=== PATIENT | female | born 1945 | race Caucasian/White ===

== ENCOUNTER → 2019-04-26 15:05 | Outpatient (CLI) | payer MEDICARE, SELFPAY ==
--- NOTE | ~2019-04-26 | MM_ITS ---
EXAMINATION: MM screening taryn RT w jose angel HISTORY: Screening mammogram TECHNIQUE: Craniocaudal and mediolateral oblique 3-D tomosynthesis images were obtained and synthetic 2-D images were generated. CAD analysis was submitted and interpreted. COMPARISON: Comparison to multiple prior studies sequentially, with oldest reviewed study dated 12/30. BREAST PARENCHYMAL COMPOSITION: There are scattered areas of fibroglandular density. FINDINGS: There is no evidence of suspicious mass, calcification, or architectural distortion to sugg est malignancy in the right breast. There has been no suspicious interval change. IMPRESSION: 1. No mammographic evidence of malignancy. 2. Recommend routine screening mammography in one year. BI-RADS Category 1: Negative Reviewed, dictated and finalized at location A. ETIC COMPUTATOR
== END ==
PROVIDERS: PCP Family Medicine; Visit Provider Family Medicine
DX: Z12.31 Encounter for screening mammogram for malignant neoplasm of breast (principal)
CPT/HCPCS: 77063; 77067

== ENCOUNTER 2019-05-19 07:11 | Emergency (ER) | payer MEDICARE, SELFPAY ==
[2019-05-19] VITALS (9 sets, daily range): BP systolic 124–192; BP diastolic 63–94; PULSE 95–114; RESP 17–20; TEMP 36.9; O2SAT 94–99
--- NOTE | 2019-05-19 07:20 | ED.UPPEXIN ---
HPI - Extremity Injury (Upper) General Chief Complaint: Extremity Injury, Upper Stated Complaint: left wrist pain Time Seen by Provider: 05/19/19 07:19 History of Present Illness HPI narrative: Bilateral wrist pain since yesterday afternoon. RIght wrist improved, left wrist still extremely painful. Associated with mild redness and swelling. She has diffuse osteoarthritis, but has never had pain this severe before. The pain improved slightly with Ibuprofen. No injury, fever, illness. Related Data Home Medications Medication Instructions Recorded Confirmed albuterol sulfate 90 mcg/actuation 1 inhalation INHALATION Q4H 01/10/19 05/19/19 aerosol inhaler amlodipine 5 mg tablet 5 mg PO DAILY 01/10/19 aspirin 81 mg tablet,delayed 81 mg PO DAILY 01/10/19 release atorvastatin 40 mg tablet 40 mg PO DAILY 01/10/19 calcium carbonate-vitamin D3 600 2 tablet PO BID tablet 01/10/19 mg (1,500 mg)-800 unit tablet cetirizine 10 mg capsule 10 mg PO PRN cap 01/10/19 duloxetine 30 mg capsule,delayed 30 mg PO DAILY 01/10/19 release duloxetine 60 mg capsule,delayed 60 mg PO DAILY 01/10/19 release hydrochlorothiazide 25 mg tablet 25 mg PO DAILY 01/10/19 insulin glargine U-300 conc 300 85 unit SUB-Q DAILY ml 01/10/19 unit/mL (3 mL) subcutaneous pen levothyroxine 150 mcg tablet 150 mcg PO DAILY 01/10/19 losartan 25 mg tablet 25 mg PO DAILY 01/10/19 mometasone-formoterol HFA 200 2 puff INHALATION BID 01/10/19 mcg-5 mcg/actuation aerosol inhaler montelukast 10 mg tablet 10 mg PO DAILY 01/10/19 nortriptyline 10 mg capsule 10 mg PO DAILY 01/10/19 omeprazole 20 mg capsule,delayed 20 mg PO DAILY 01/10/19 release Allergies Allergy/AdvReac Type Severity Reaction Status Date / Time salmon oil Allergy Severe RASH,HIVES Verified 05/19/19 08:02 shellfish derived Allergy Severe HIVES/RASH Verified 05/19/19 08:02 shrimp Allergy Severe RASH/HIVES Verified 05/19/19 08:02 celecoxib Allergy Intermediate RASH/HIVES Verified 05/19/19 08:02 fish oil Allergy Intermediate RASH/HIVES Verified 05/19/19 08:02 metformin Allergy Unknown Dyspnea / Verified 05/19/19 08:02 SOB [place] Allergy Severe RASH HIVES Uncoded 05/19/19 08:02 Contrast Media Allergy Intermediate HIVES/RASH Uncoded 05/19/19 08:02 Review of Systems Review of Systems: All systems reviewed & are unremarkable except as noted in HPI and below Constitutional: Constitutional: Reports chills and Denies fever(s) Cardiovascular: Cardiovascular: Denies chest pain Respiratory: Respiratory: Denies dyspnea Gastrointestinal: Gastrointestinal: Denies abdominal pain Genitourinary: Genitourinary: Denies hematuria Musculoskeletal: Musculoskeletal: Reports arthralgias Neurologic: Denies numbness and Denies weakness [facility] Past Medical History Medical History Bilateral knee pain Degenerative joint disease of knee Social History Social History Smoking status: Former smoker Smoking end date: 03/01/08 Alcohol intake: never Exam Const: General: healthy appearing and alert Nutritional Appearance: obese Orientation/consciousness: patient oriented x3 HENMT: Head: normal to inspection Resp: Effort & Inspection: normal respiratory effort Auscultation: clear to auscultation bilaterally Cardio: Rate: regular rate Rhythm: regular rhythm Skin: Other: mild redness around lateral aspect of right wrist Neuro: General: patient oriented x3, moves all extremities and no focal motor deficits Speech: normal speech Extrem: Other: Tenderness and mild swelling at right wrist Course Vital Signs Vital signs: Vital Signs Blood Pressure 192/91 H 05/19/19 07:18 Pulse Oximetry 96 05/19/19 07:18 Temperature 36.9 C 05/19/19 07:23 Pulse Rate 95 05/19/19 09:59 Respiratory Rate 17 05/19/19 09:59 Blood Pressure 124/72 05/19/19 09:59 P
[2019-05-19 07:59] LABS: Basophils Percent Auto 0.1 % (0.2-1.2); Hematocrit 43.1 % (37.0-47.0); Immature Granulocyte Absolute 0.06 K/mm3 (0.00-0.031); Immature Granulocyte Percent A 0.4 % (0-0.5); Lymphocytes Absolute Auto 1.08 K/mm3 (0.9-3.2); Mean Corpuscular HGB Conc 32.5 g/dl (32-36); Mean Corpuscular Volume 89.4 fl (80-100); Mean Platelet Volume 9.7 fl (7.4-10.4); Monocytes Absolute Auto 1.2 K/mm3 (0.1-0.6); Monocytes Percent Auto 8.8 % (2.6-8.5); Neutrophils Absolute Auto 11.1 K/mm3 (1.3-6.7); Neutrophils Percent Auto 82.7 % (45.5-73.1); Platelet Count Result 345 k/mm3 (150-375); Red Blood Count 4.82 M/mm3 (4.2-5.4); Red Cell Distribution Width 13.4 % (11.5-14.5); White Blood Count 13.5 K/mm3 (4.5-10.0)
[2019-05-19 08:11] LABS: Blood Urea Nitrogen 12 mg/dL (7-17); Calcium 8.8 mg/dL (8.4-10.2); Carbon Dioxide 31 mmol/L (22-30); Chloride 95 mmol/L (98-107); Estimated CRCL calculation 70 ml/min; Estimated Glomerular Filt Rate > 60; Glucose 330 mg/dL (65-105); Sodium 136 mmol/L (137-145); Uric Acid 3.9 mg/dL (2.5-7.5)
--- NOTE | 2019-05-19 08:28 | PC.NURSE ---
Reassessment of pt pain, pt report pain 11/08, ED physician notified.
[2019-05-19] MEDS: INDOMETHACIN 25 MG CAPSULE 50 MG PO (08:46)
[2019-05-21 21:01] LABS: Anti Nuclear Antibody Pattern Nuclear, Speckled
== END 2019-05-19 10:00 | disposition home or self-care (01) ==
PROVIDERS: Emergency Provider Emergency Medicine; PCP Family Medicine
DX: M12.9 Arthropathy, unspecified (principal); Z87.891 Personal history of nicotine dependence
CPT/HCPCS: 36415; 80048; 84550; 85025; 86038; 86039; 99283; A9270

== ENCOUNTER → 2019-11-04 10:25 | Outpatient (CLI) | payer MEDICARE, SELFPAY ==
--- NOTE | ~2019-11-04 | MR_ITS ---
EXAMINATION: MR hip RT wo con DATE: 11/04/2019 11:17 INDICATION: Right hip pain TECHNIQUE: Magnetic resonance imaging (MRI) of the right hip was performed without intravenous contr ast. Sequences included full-field axial PD-weighted FS FSE and T1-weighted FSE, coronal of the pelvi s with PD-weighted FS FSE, small field of view of the right hip with axial PD-weighted FS FSE, sagit carlos PD-weighted FS FSE and coronal PD weighted FS FSE. Additional radial T1-weighted FGR oriented ort hogonal to the acetabular rim were obtained for evaluation of the labrum. COMPARISON: Pelvis and bilateral hip radiographs dated 08/31/2019 FINDINGS: Evaluation mildly limited by motion artifact or blurring on several sequences. Bones/labrum/cartilage: Alignment is normal. No fracture, avascular necrosis or pathologic marrow replacing process. Mild os teoarthritis at the right hip with nonuniform joint space narrowing with partial thickness cartilage loss most prominent at the posterior and posterior superior aspect of the joint space. The anterior t o the superolateral right acetabular labrum is diminutive likely reflecting chronic degeneration. Mor e well-defined linear tear at the posterior superior labrum. There is thickening, architectural disto rtion and increased signal at the femoral side of the ligamentum teres consistent with at least parti al tear. Fluid: Symmetric physiologic amount of fluid within both hip joints. No bursitis or other abnormal fluid col lections. Soft tissues: Symmetric muscle bulk and signal with moderate fatty atrophy of the bilateral gluteus sherrell muscles and mild fatty atrophy of the remaining musculature of the pelvis and proximal thighs. The iliopsoas , gluteal and proximal hamstring tendons are normal. The uterus is not identified and has likely been surgically resected. Multiple diverticula along the sigmoid colon. Limited evaluation of visceral or wen of the pelvis is otherwise unremarkable. No pathologically enlarged pelvic/inguinal lymphadenop athy. IMPRESSION: 1. Mild right hip osteoarthritis with anterior to the superolateral labral degeneration and more disc rete tear at the posterior superior acetabular labrum. 2. At least partial tear of the femoral side of the ligamentum teres of the right hip. 3. Sigmoid diverticulosis. Reviewed, dictated and finalized at location A. IMPRESSION: 1. Mild right hip osteoarthritis with anterior to the superolateral labral dege neration and more discrete tear at the posterior superior acetabular labrum. 2. At least partial tear of the femoral side of the ligamentum teres of the rig ht hip. 3. Sigmoid diverticulosis.
== END ==
PROVIDERS: Visit Provider Nurse Practitioner Family
DX: M25.551 Pain in right hip (principal); M16.11 Unilateral primary osteoarthritis, right hip; K57.30 Diverticulosis of large intestine without perforation or abscess without bleeding
CPT/HCPCS: 73721

== ENCOUNTER 2019-11-20 02:52 | Outpatient (CLI) | payer MEDICARE, SELFPAY ==
[2019-11-20 16:34] LABS: SARS-CoV-2 RNA PCR Negative
== END 2019-11-20 02:53 | disposition home or self-care (01) ==
LOC: ANHCOVIDDT 02:52
PROVIDERS: Visit Provider Plastic Surgery
DX: Z01.818 Encounter for other preprocedural examination (principal); Z11.59 Encounter for screening for other viral diseases
CPT/HCPCS: 87635; C9803; U0003

== ENCOUNTER 2019-11-22 01:37 | Day surgery (SDC) | payer MEDICARE, SELFPAY ==
[2019-11-17 13:21] VITALS: BMI 34.1
[2019-11-22] VITALS (7 sets, daily range): BP systolic 110–167; BP diastolic 50–77; PULSE 76–85; RESP 20–24; TEMP 36.1–37; O2SAT 93–97
--- NOTE | 2019-11-22 07:14 | WPDHPUPDATE1 ---
History and Physical Update Update Date/Time: 11/22/19 07:14 History and Physical has been reviewed, including an updated exam of the patient. There are NO changes in the patient's condition. Risks, benefits, and alternatives have been discussed and questions answered. Patient agrees to proceed with procedure.
--- NOTE | 2019-11-22 07:37 | PM.OP ---
Procedure Note - Brief Procedure Note - Brief Date of procedure: 11/22/19 Pre-op diagnosis: Sebaceous Abcess Of the Right Cheek, Inflammed Post-op diagnosis: same Procedure performed: Excision of inflamed sebaceous cyst of right cheek 2.0 cm with intermediate repair 2.6 cm Anesthesia: local Surgeon: Forrest Bear MD Drains: No Packing: No Pathology: none sent Complications: No immediate complications Condition: stable Disposition: same day
[2019-11-22] MEDS: LIDO 1%/EPINEPHRINE 1:100,000 20 ML VIAL INFILTRATE (07:58)
[2019-11-22] MEDS: BACITRACIN OINTMENT 15 GM TUBE 1 APPLIC TOPICAL (08:02)
--- NOTE | 2019-11-22 08:13 | PM.PROC ---
Procedure Note - Detailed Date of procedure: 11/22/19 Pre-op diagnosis: Sebaceous Abcess Of the Right Cheek, Inflammed Inflamed cyst of the right cheek Post-op diagnosis: same Procedure performed: 2.0 cm excision of inflamed cyst of the right cheek with intermediate repair 2.6 cm. Description of procedure: The right cheek site was marked in the holding area. She was taken to the operating room and placed supine on the operating table. A time-out was held and confirmed. The right Face was prepped and draped in usual fashion. Patient was comfortably positioned. The site was marked for excision and infiltrated with 1% lidocaine with epinephrine. The curving incision was made with a 15 blade through full-thickness skin. Dense phlegmon was and identified throughout the region. There was no pus at this time. The phlegmonous tissue was incised to ensure there was no purulent pocket. The central portion of the phlegmonous tissue was excised. The wound was closed with interrupted 4-0 intradermal Vicryl suture and the skin was closed with running 6 0 nylon. The patient is discharged with instructions in wound care and follow-up. No prescriptions were given. She will be finishing her oral antibiotics. Surgeon: Forrest Bear MD
== END 2019-11-22 08:25 | disposition home or self-care (01) ==
PROVIDERS: PCP Family Medicine; Visit Provider Plastic Surgery
PROC: (CPT 11442; principal; 2019-11-22 07:30)
DX: L02.01 Cutaneous abscess of face (principal); I10 Essential (primary) hypertension; E11.9 Type 2 diabetes mellitus without complications; J44.9 Chronic obstructive pulmonary disease, unspecified; Z79.4 Long term (current) use of insulin
CPT/HCPCS: 11442; 12052; A9270

== ENCOUNTER 2019-12-04 17:23 | Emergency (ER) | payer MEDICARE, SELFPAY ==
[2019-12-04 17:32] VITALS: BP 136/56; PULSE 89; RESP 16; TEMP 36.3; O2SAT 96
--- NOTE | 2019-12-04 17:49 | ED.URI ---
HPI - URI/Sore Throat General Chief Complaint: Upper Respiratory Infection Stated Complaint: cough/wheezing Time Seen by Provider: 12/04/19 17:40 Source: patient Mode of arrival: ambulatory Limitations: no limitations History of Present Illness HPI Narrative: 74 y/o female. PMH includes: HTN, Hypothyroid, DM II. Presents to clinic today with acute complaints of cough and wheezing, over past 5 days. She reports to actually feel better today , but when she called her Boat Oar Maker, they couldn't see her', and she has to get Covid 19 testing in AM before she may be seen in office. She reports to initially have had 'some wheezing', which has since 'gone away'. She notes that 'sometimes her asthma will bother her, and adds that she has had nasal discharge and drainage in her throat . However, today she feels pretty good . No fever, chills, chest pain, palpitations, abdominal pain, N/V/D. Related Data Home Medications Medication Instructions Recorded Confirmed aspirin 81 mg tablet,delayed 81 mg PO DAILY 01/10/19 11/22/19 release montelukast 10 mg tablet 10 mg PO HS 01/10/19 11/22/19 omeprazole 20 mg capsule,delayed 20 mg PO HS 01/10/19 11/22/19 release Spiriva Respimat 2 puff INHALATION QAM 11/17/19 11/22/19 amlodipine 5 mg PO QAM 11/17/19 11/22/19 budesonide-formoterol [Symbicort] 2 puff INHALATION BID 11/17/19 11/22/19 duloxetine 60 mg PO DAILY 11/17/19 11/22/19 hydrochlorothiazide 25 mg PO QAM 11/17/19 11/22/19 levothyroxine 150 mcg PO QAM 11/17/19 11/22/19 losartan 50 mg PO QAM 11/17/19 11/22/19 metoprolol succinate 25 mg PO HS 11/17/19 11/22/19 albuterol sulfate [Ventolin HFA] INHALATION 12/04/19 budesonide-formoterol [Symbicort] INHALATION 12/04/19 calcium carbonate-vitamin D3 1 tablet PO DAILY 12/04/19 12/04/19 [Caltrate 600 plus D] fluoxetine 20 mg PO DAILY 12/04/19 12/04/19 insulin glargine U-300 conc 105 unit SUBCUT QAM 12/04/19 12/04/19 [Toujeo Max U-300 SoloStar] insulin glargine U-300 conc unit SUBCUT 12/04/19 [Toujeo Max U-300 SoloStar] insulin lispro [Humalog KwikPen unit SUBCUT 12/04/19 Insulin] insulin lispro [Humalog KwikPen unit SUBCUT 12/04/19 Insulin] Allergies Allergy/AdvReac Type Severity Reaction Status Date / Time shellfish derived Allergy Severe HIVES/RASH Verified 12/04/19 17:52 shrimp Allergy Severe RASH/HIVES Verified 12/04/19 17:52 celecoxib Allergy Intermediate RASH/HIVES Verified 12/04/19 17:52 fish oil Allergy Intermediate RASH/HIVES Verified 12/04/19 17:52 metformin Allergy Unknown Chest Pain Verified 12/04/19 17:52 Contrast Media Allergy Intermediate NAUSEA, Uncoded 12/04/19 17:52 HOT FLASHES, DYSPNEA Review of Systems Review of Systems: Narrative: CONSTITUTIONAL: Denies fever, chills, sweats. EYES: Denies visual changes, redness, discharge. ENT: Denies rhinorrhea, congestion, sore throat, otalgia. CARDIOVASCULAR: Denies chest pain, palpitations, edema. RESPIRATORY: Denies dyspnea. Positive wheezing, cough GASTROINTESTINAL: Denies abdominal pain, nausea, vomiting, diarrhea. GENITOURINARY: Denies dysuria, hematuria, abnormal discharge SKIN: Denies rash or itching. MUSCULOSKELETAL: Denies acute back pain, joint pain, or myalgia. NEUROLOGIC: Denies numbness, or focal weakness. PSYCHIATRIC: Denies anxiety or depression. All systems reviewed & are unremarkable except as noted in HPI and below PMFSH Past Medical History Medical History Bilateral hip pain Bilateral knee pain Degenerative joint disease of knee Internal nasal lesion Joint pain Lumbar spine pain Positive GEETHA (antinuclear antibody) Right groin pain Sleeping difficulties Trochanteric bursitis Social History Social History Smoking packs per day: 3 Smoking cigarettes per day: 60.0 Years smoked: 30 Smoking pack-years: 90.00 Smoking status: Former smoker Smok
== END 2019-12-04 17:58 | disposition home or self-care (01) ==
PROVIDERS: Emergency Provider Nurse Practitioner Adult Health; PCP Family Medicine
DX: J06.9 Acute upper respiratory infection, unspecified (principal); Z87.891 Personal history of nicotine dependence; M17.10 Unilateral primary osteoarthritis, unspecified knee; I10 Essential (primary) hypertension; E03.9 Hypothyroidism, unspecified; E11.9 Type 2 diabetes mellitus without complications
CPT/HCPCS: 99211; G0463

== ENCOUNTER 2019-12-05 11:45 | Outpatient (NON) | payer MEDICARE, SELFPAY ==
[2019-12-06 00:38] LABS: SARS-CoV-2 RNA PCR Negative
== END 2019-12-05 11:46 ==
PROVIDERS: PCP Family Medicine
DX: R05 Cough (principal); Z20.828 Contact with and (suspected) exposure to other viral communicable diseases
CPT/HCPCS: 87635; C9803; U0003

== ENCOUNTER 2020-02-04 17:17 | Observation (INO) | payer MEDICARE, SELFPAY ==
[2020-02-04] VITALS (8 sets, daily range): BP systolic 112–161; BP diastolic 59–76; PULSE 93–108; RESP 17–20; TEMP 36.1; O2SAT 94–97; BMI 32.1
--- NOTE | ~2020-02-04 | XR_ITS ---
EXAMINATION: XR chest 1V portable DATE: 02/04/2020 17:59 INDICATION: Hypertension. Hyperglycemia. TECHNIQUE: frontal view of the chest was obtained. COMPARISON: Chest radiograph dated 01/11/2014 FINDINGS: Unchanged mild atelectasis/scarring at the lingula along side a small left paracardial fat pad. No ne w airspace opacities, pulmonary edema, pleural effusion or pneumothorax. The cardiomediastinal silhou ette is normal. Status post left mastectomy and likely left axillary lymph node dissection with multi ple surgical clips at the left axilla. IMPRESSION: 1. No acute cardiopulmonary disease. Reviewed, dictated and finalized at location A. O BROADCASTER
[2020-02-04 17:39] LABS: Glucose Point of Care > 500 (65-105)
--- NOTE | 2020-02-04 17:48 | ED.GENADULT ---
HPI - General Adult General Chief complaint: Recheck/Abnormal Lab/Rx Stated complaint: lip infection/high blood sugar Time Seen by Provider: 02/04/20 17:33 Source: patient Mode of arrival: ambulatory Limitations: no limitations History of Present Illness HPI narrative: Patient is a 74-year-old female who presents to emergency department for evaluation of feeling fatigued and weak is currently being treated for an infection of the left noting last she developed swelling and tenderness of the left patient was started on a new blood sugar medicine in the recent past and has been noncompliant with that because of abdominal cramping and side effects patient denies vomiting diarrhea URI symptoms or other complaints patient does note history of frequent oral blisters. Patient on arrival in no distress. Patient has not been in touch with primary care about her insulin noncompliance Related Data Home Medications Medication Instructions Recorded Confirmed aspirin 81 mg tablet,delayed 81 mg PO DAILY 01/10/19 12/04/19 release omeprazole 20 mg capsule,delayed 20 mg PO HS 01/10/19 12/04/19 release amlodipine 5 mg PO QAM 11/17/19 12/04/19 budesonide-formoterol [Symbicort] 2 puff INHALATION BID 11/17/19 12/04/19 duloxetine 60 mg PO DAILY 11/17/19 12/04/19 hydrochlorothiazide 25 mg PO QAM 11/17/19 12/04/19 levothyroxine 150 mcg PO QAM 11/17/19 12/04/19 losartan 50 mg PO QAM 11/17/19 12/04/19 metoprolol succinate 25 mg PO HS 11/17/19 12/04/19 albuterol sulfate [Ventolin HFA] INHALATION 12/04/19 calcium carbonate-vitamin D3 1 tablet PO DAILY 12/04/19 12/04/19 [Caltrate 600 plus D] cetirizine [Zyrtec] 10 mg PO DAILY 12/04/19 12/04/19 cyclobenzaprine 5 mg PO DAILY 12/04/19 12/04/19 fluoxetine 20 mg PO DAILY 12/04/19 12/04/19 mecobalamin (vitamin B12) [B12 1,000 mcg PO DAILY 12/04/19 12/04/19 Active] melatonin 3 mg PO HS 12/04/19 12/04/19 trwfdkqioims-Uy-lltx-minerals 1 tablet PO DAILY 12/04/19 12/04/19 [Multiple Vitamin, Womens] rosuvastatin 10 mg PO DAILY 12/04/19 12/04/19 Allergies Allergy/AdvReac Type Severity Reaction Status Date / Time shellfish derived Allergy Severe HIVES/RASH Verified 02/04/20 17:29 shrimp Allergy Severe RASH/HIVES Verified 02/04/20 17:29 celecoxib Allergy Intermediate RASH/HIVES Verified 02/04/20 17:29 fish oil Allergy Intermediate RASH/HIVES Verified 02/04/20 17:29 metformin Allergy Unknown Chest Pain Verified 02/04/20 17:29 Contrast Media Allergy Intermediate NAUSEA, Uncoded 01/31/20 11:11 HOT FLASHES, DYSPNEA Review of Systems Review of Systems: All systems reviewed & are unremarkable except as noted in HPI and below PMFSH Past Medical History Medical History (Updated 02/04/20 @ 20:22 by Corky Sotelo PA-C) Bilateral hip pain Bilateral knee pain Degenerative joint disease of knee Internal nasal lesion Joint pain Lumbar spine pain Positive GEETHA (antinuclear antibody) Right groin pain Sleeping difficulties Trochanteric bursitis Family History Family History Father Diabetes mellitus Hypertension Cerebrovascular accident Family history of malignant melanoma Mother Diabetes mellitus Hypertension Family history of lung cancer Sibling Family history of malignant melanoma Other Family history of cardiovascular disease Family history of malignant neoplasm Malignant neoplasm of prostate Social History Social History Smoking packs per day: 3 Smoking cigarettes per day: 60.0 Years smoked: 30 Smoking pack-years: 90.00 Smoking status: Former smoker Smoking end date: 03/01/98 Alcohol intake: never Substance use: never Substance use type: does not use Gender identity (if verbalized by the patient): Female Spiritual care concerns: No Exam Narrative: Exam Narrative: GENERAL: Well-appearing, well-nourished, and in no a
[2020-02-04 17:49] LABS: Basophils Percent Auto 0.2 % (0.2-1.2); Hematocrit 43.9 % (37.0-47.0); Hemoglobin 14.4 g/dL (12.0-15.0); Immature Granulocyte Absolute 0.17 K/mm3 (0.00-0.031); Immature Granulocyte Percent A 1.4 % (0-0.5); Lymphocytes Absolute Auto 2.36 K/mm3 (0.9-3.2); Lymphocytes Percent Auto 18.9 % (18.3-44.2); Mean Corpuscular HGB Conc 32.8 g/dl (32-36); Mean Corpuscular Hemoglobin 29.5 pg (26-34); Mean Platelet Volume 9.6 fl (7.4-10.4); Monocytes Percent Auto 7.7 % (2.6-8.5); Neutrophils Percent Auto 71.8 % (45.5-73.1); Platelet Count Result 435 k/mm3 (150-375); Red Blood Count 4.88 M/mm3 (4.2-5.4); Red Cell Distribution Width 12.5 % (11.5-14.5); White Blood Count 12.5 K/mm3 (4.5-10.0)
[2020-02-04 17:50] LABS: Alveolar/Arterial O2 Gradient 30.1 mmHg; Base Excess ABG 0.4 mEq/l (+/-2.0); Carboxyhemoglobin 0.8 % THb (0-2.0); Device ROOM AIR; Fractional Inspired Oxygen 21 %; HCO3 ABG 25.5 mEq/l (22.0-26.0); Methemoglobin ABG 0.2 %THb (0-1.5); Modified Allen's Test Pass; Oxygen Content ABG 18.3 %vol (16.0-22.0); Oxygen Saturation ABG 93.6 % (95.0-100.0); Oxyhemoglobin 91.2 % THb (90.0-100.0); PCO2 ABG 42.6 mmHg (35.0-45.0); PO2 ABG 68.6 mmHg (80.0-100.0); PO2 FiO2 Ratio Arterial Blood 3.27 %; Reduced Hemoglobin 7.8 %THb (0-5.0); Site Drawn RIGHT RADIAL; Total Hemoglobin 14.3 g/dL (12.0-18.0); pH ABG 7.395 (7.350-7.450)
[2020-02-04] MEDS: SODIUM CHLORIDE 0.9% IV 500 ML 999 ML IV CONT (18:00)
[2020-02-04 18:02] LABS: Alanine Aminotransferase 20 U/L (4-35); Albumin Level 4.1 g/dL (3.5-5.1); Alkaline Phosphatase 152 U/L (38-126); Anion Gap 12 mmol/L (8-16); Aspartate Amino Transferase 24 U/L (14-36); Bilirubin,Total 0.7 mg/dL (0.2-1.3); Blood Urea Nitrogen 14 mg/dL (7-17); Calcium 8.8 mg/dL (8.4-10.2); Carbon Dioxide 29 mmol/L (22-30); Chloride 86 mmol/L (98-107); Estimated CRCL calculation 52 ml/min; Estimated Glomerular Filt Rate > 60; Magnesium 1.7 mg/dL (1.6-2.3); Phosphorus 4.9 mg/dL (2.5-4.5); Potassium 4.2 mmol/L (3.4-5.0); Sodium 127 mmol/L (137-145)
[2020-02-04 18:10] LABS: Glucose 778 mg/dL (65-105)
[2020-02-04 18:20] LABS: Beta-Hydroxybutyrate/Acetoacetate 0.96 mmol/L (0.02-0.27)
[2020-02-04] MEDS: SODIUM CHLORIDE 0.9% IV 1,000 ML 999 ML IV CONT (18:37)
[2020-02-04] MEDS: INSULIN HUMAN REGULAR (*BKC) 100 UNITS/ML 12 UNITS IV PUSH (18:48)
[2020-02-04 19:04] LABS: Add Urine Microscopic? YES; Appearance Urine Clear (Clear); Bilirubin Urine Negative (Negative); Blood Urine Negative (Negative); Color Urine Colorless (Yellow); Glucose Urine UA 3+ mg/dL (Negative); Ketones Urine Trace mg/dL (Negative); Leukocyte Esterase Ur Negative LEU/UL (Negative); Nitrate Urine Negative (Negative); Protein Urine Negative (Negative); RBC Urine 0-2 /hpf (0-2); Specific Grav Ur 1.029 (1.001-1.035); Squamous Epithelial Cell Urine Occasional /hpf (Few); Urobilinogen Urine Negative mg/dL (<2.0); WBC Urine 0-3 /hpf
[2020-02-04 19:37] LABS: Glucose Point of Care > 500 (65-105)
--- NOTE | 2020-02-04 19:40 | PC.NURSE ---
POC Glucose performed per PA Alva's verbal order with read back. BS was 503 and PA Alva made aware of continued hyperglycemia and no new orders given. RN will continue to monitor.
--- NOTE | 2020-02-04 20:37 | PM.IMHP ---
H&P: HPI History of Present Illness Date/Time: 02/04/20 20:37 Chief complaint: hyperglycemia, dizzy, herpes simplex lip Narrative: This is a pleasant 74-year-old obese diabetic female with known COPD who presented to the hospital today with a complaint of having cold sores of her upper lip as well as an elevated blood glucose. The patient reports that she had an outbreak of cold sores involving her upper lip that started this past and the very next day her upper lip became severely swollen. She was started on doxycycline by her PCP and also treated with Valtrex. The patient admits that she has not been taking her insulin as she was recently switched from being on Lantus and Humulin insulin 3 times a day to U 500 insulin which she says she cannot tolerate. The patient simply has not been taking any insulin but she believe that it was not necessary because she has not been able to eat since the cold sores involving her upper lip has prevented her to put in her dentures. Tonight in the emergency room the patient was found to have a blood glucose of 778 mg/dl. It does not appear that the patient is in acute DKA as she has a normal anion gap. Associated symptoms tonight include nausea and dizziness. She denies any recent fevers, chills, worsening cough, shortness of breath, chest pain, palpitations, abdominal pain, dysuria, hematuria, diarrhea, or rectal bleeding. She denies any other open wounds or rashes. The patient is nontoxic appearing, alert, awake and in no acute distress. She has been treated with IV fluids and 12 units of regular insulin IV. We been asked to admit the patient to the hospital for her severely elevated blood sugars. She has no other complaints at this time. Review of Systems Review of Systems: All systems reviewed & are unremarkable except as noted in HPI and below PMFSH Past Medical History Medical History Bilateral hip pain Bilateral knee pain COPD (chronic obstructive pulmonary disease) Degenerative joint disease of knee Internal nasal lesion Joint pain Lumbar spine pain Positive GEETHA (antinuclear antibody) Right groin pain Sleeping difficulties Trochanteric bursitis Family History Family History Father Diabetes mellitus Hypertension Cerebrovascular accident Family history of malignant melanoma Mother Diabetes mellitus Hypertension Family history of lung cancer Sibling Family history of malignant melanoma Other Family history of cardiovascular disease Family history of malignant neoplasm Malignant neoplasm of prostate Social History Social History Smoking packs per day: 3 Smoking cigarettes per day: 60.0 Years smoked: 30 Smoking pack-years: 90.00 Smoking status: Former smoker Tobacco type: cigarettes Smoking end date: 03/01/98 Alcohol intake: never Substance use: never Substance use type: does not use Gender identity (if verbalized by the patient): Female Spiritual care concerns: No Meds Home Medications and Allergies Home Medications Medication Instructions Recorded Confirmed Type aspirin 81 mg tablet,delayed 81 mg PO DAILY 01/10/19 02/04/20 History release omeprazole 20 mg capsule,delayed 20 mg PO HS 01/10/19 02/04/20 History release amlodipine 5 mg PO QAM 11/17/19 02/04/20 History budesonide-formoterol [Symbicort] 2 puff INHALATION BID 11/17/19 02/04/20 History duloxetine 60 mg PO DAILY 11/17/19 02/04/20 History hydrochlorothiazide 25 mg PO QAM 11/17/19 02/04/20 History levothyroxine 150 mcg PO QAM 11/17/19 02/04/20 History losartan 50 mg PO QAM 11/17/19 02/04/20 History metoprolol succinate 25 mg PO HS 11/17/19 02/04/20 History albuterol sulfate [Ventolin HFA] 90 mcg INHALATION PRN PRN 12/04/19 02/04/20 History calcium carbonate-vitamin D3 1 tablet PO DAILY
[2020-02-04] MEDS: FAMOTIDINE 20 MG/2 ML VIAL IV PUSH (21:34)
--- NOTE | 2020-02-04 21:59 | ADMGEN ---
This patient, Rula Goldstein, was admitted to IMU Room 202-01. Patient/family oriented to hospital policies and general routines including ID bracelet, bed and alarms, visiting hours, pain management, procedures, bathroom and other care routines, personal items, smoking policy, room service/diet, and visiting hours. Information on how to activate the Rapid Response Team has been discussed. Patient/Family are encouraged to report perceived risks to care and to ask questions if they do not understand what they are told or what they should do.
[2020-02-04 22:01] LABS: Glucose Point of Care 417 (65-105)
[2020-02-04 23:44] LABS: Glucose Point of Care 447 (65-105)
[2020-02-05] VITALS (11 sets, daily range): BP systolic 135–147; BP diastolic 54–80; PULSE 77–94; RESP 16–20; TEMP 35.8–36.4; O2SAT 93–97
[2020-02-05] MEDS: MONTELUKAST SODIUM 10 MG TABLET PO ×2 (00:27→20:36)
[2020-02-05] MEDS: METOPROLOL SUCCINATE EXT REL 25 MG TABCR PO ×2 (00:27→20:36)
[2020-02-05] MEDS: valACYclovir HCL 500 MG TABLET 1000 MG PO ×4 (00:27→20:36)
[2020-02-05] MEDS: MELATONIN 3 MG TABLET PO ×2 (00:27→20:36)
[2020-02-05] MEDS: PANTOPRAZOLE 40 MG TABLET PO ×2 (00:28→20:36)
[2020-02-05] MEDS: LACTATED RINGERS 1,000 ML 100 ML IV CONT (00:28)
[2020-02-05] MEDS: INSULIN ASPART (*BKC) 100 UNITS/ML 10 UNITS SUB-Q (01:53)
[2020-02-05 04:37] LABS: Basophils Percent Auto 0.3 % (0.2-1.2); Hematocrit 34.8 % (37.0-47.0); Hemoglobin 11.9 g/dL (12.0-15.0); Immature Granulocyte Percent A 0.9 % (0-0.5); Lymphocytes Absolute Auto 3.01 K/mm3 (0.9-3.2); Lymphocytes Percent Auto 27.7 % (18.3-44.2); Mean Corpuscular HGB Conc 34.2 g/dl (32-36); Mean Corpuscular Hemoglobin 29.2 pg (26-34); Mean Corpuscular Volume 85.5 fl (80-100); Mean Platelet Volume 9.3 fl (7.4-10.4); Monocytes Absolute Auto 0.9 K/mm3 (0.1-0.6); Monocytes Percent Auto 8.7 % (2.6-8.5); Neutrophils Absolute Auto 6.8 K/mm3 (1.3-6.7); Neutrophils Percent Auto 62.4 % (45.5-73.1); Platelet Count Result 359 k/mm3 (150-375); Red Blood Count 4.07 M/mm3 (4.2-5.4); Red Cell Distribution Width 12.2 % (11.5-14.5); White Blood Count 10.9 K/mm3 (4.5-10.0)
[2020-02-05 04:50] LABS: Anion Gap 5 mmol/L (8-16); Blood Urea Nitrogen 10 mg/dL (7-17); Carbon Dioxide 30 mmol/L (22-30); Chloride 98 mmol/L (98-107); Estimated CRCL calculation 78 ml/min; Estimated Glomerular Filt Rate > 60; Glucose 311 mg/dL (65-105); Potassium 3.3 mmol/L (3.4-5.0); Sodium 133 mmol/L (137-145)
[2020-02-05 06:00] LABS: Glucose Point of Care 466 (65-105)
[2020-02-05 06:00] LABS: Glucose Point of Care 284 (65-105)
[2020-02-05] MEDS: LEVOTHYROXINE SODIUM 150 MCG TABLET PO (06:26)
[2020-02-05] MEDS: INSULIN ASPART (*BKC) 100 UNITS/ML SUB-Q ×4 (06:29→22:20)
[2020-02-05] MEDS: ROSUVASTATIN 10 MG TABLET PO (09:01)
[2020-02-05] MEDS: LORATADINE 10 MG TABLET PO (09:02)
[2020-02-05] MEDS: CYCLOBENZAPRINE HCL 5 MG TABLET PO (09:02)
[2020-02-05] MEDS: LOSARTAN POTASSIUM 50 MG TABLET PO (09:02)
[2020-02-05] MEDS: hydroCHLOROthiazide 25 MG TABLET PO (09:02)
[2020-02-05] MEDS: DULoxetine HCL 60 MG CAPSULE.DR PO (09:03)
[2020-02-05] MEDS: FLUoxetine HCL 20 MG CAPSULE PO (09:03)
[2020-02-05] MEDS: DOXYCYCLINE HYCLATE 100 MG TABLET PO ×2 (09:03→17:42)
[2020-02-05] MEDS: amLODIPine BESYLATE 5 MG TABLET PO (09:03)
[2020-02-05] MEDS: ASPIRIN 81 MG ENTERIC TABLET PO (09:04)
[2020-02-05] MEDS: FAMOTIDINE 20 MG/2 ML VIAL IV PUSH ×2 (09:04→20:36)
[2020-02-05 12:44] LABS: Glucose Point of Care 312 (65-105)
[2020-02-05] MEDS: THERAPEUTIC MULTIVITAMINS/MINERALS TAB (*BKC) 1 TABLET PO (13:21)
[2020-02-05] MEDS: CYANOCOBALAMIN 1,000 MCG TABLET 1000 MCG PO (13:21)
[2020-02-05] MEDS: MUPIROCIN 2% OINT 22 GM TUBE 1 APPLIC TOPICAL ×2 (13:21→17:42)
--- NOTE | 2020-02-05 16:19 | PM.IMPN ---
Progress Note: A&P Assessment and Plan (1) Uncontrolled type 2 diabetes mellitus with hyperglycemia, with long-term current use of insulin: Code(s): E11.65 - Type 2 diabetes mellitus with hyperglycemia; Z79.4 - [facility] (current) use of insulin Status: Acute Assessment and Plan: The patient has been placed in observation status. Accu-Cheks, sliding scale insulin coverage, hypoglycemia protocol. Diabetes Education. Continue IV fluids. 02/05/20 16:19 Patient is 74-year-old female with history of diabetes had developed cold sore on her left upper lip is quite swollen patient was not able to take her oral medication as well as insulin her symptoms were getting progressively, patient was initially seen by her primary care it was given doxycycline and bowel valtrex but there was no improvement in her swelling, because of swelling patient was not able to wear her dentures and was not able to eat felt nauseated and presented emergency department for further evaluate upon arrival patient blood sugar was 778 however patient was not DKA and her anion gap was normal, patient was vigorously high started on insulin, this morning patient states feeling little better swelling has improved denies any nausea or vomiting able to tolerate p.o., denies any fever or chills patient blood sugar have trended down close to 200, will apply Bactroban to her cold sores and monitor will have a PT OT evaluate the patient. (2) Primary herpes simplex infection of lips: Code(s): B00.1 - Herpesviral vesicular dermatitis Status: Acute Assessment and Plan: Continue Valtrex. Continue doxycycline to complete 10 day course that the patient has been started on. (3) COPD (chronic obstructive pulmonary disease): Qualifiers: COPD type: unspecified COPD Qualified Code(s): J44.9 - Chronic obstructive pulmonary disease, unspecified Code(s): J44.9 - Chronic obstructive pulmonary disease, unspecified Status: Chronic Assessment and Plan: Continue bronchodilators. (4) Hypertension: Qualifiers: Hypertension type: essential hypertension Qualified Code(s): I10 - Essential (primary) hypertension Code(s): I10 - Essential (primary) hypertension Status: Chronic Assessment and Plan: Elevated. Monitor blood pressure. Continue losartan, hydrochlorothiazide, Metoprolol,and amlodipine. p.r.n. IV hydralazine is ordered with parameters. (5) Hypothyroidism: Qualifiers: Hypothyroidism type: postoperative Qualified Code(s): E89.0 - Postprocedural hypothyroidism Code(s): E03.9 - Hypothyroidism, unspecified Status: Chronic Assessment and Plan: Continue levo thyroxine p.o.. Subjective Date/time seen: 02/05/20 16:19 Patient is 74-year-old female with history of diabetes had developed cold sore on her left upper lip is quite swollen patient was not able to take her oral medication as well as insulin her symptoms were getting progressively, patient was initially seen by her primary care it was given doxycycline and bowel valtrex but there was no improvement in her swelling, because of swelling patient was not able to wear her dentures and was not able to eat felt nauseated and presented emergency department for further evaluate upon arrival patient blood sugar was 778 however patient was not DKA and her anion gap was normal, patient was vigorously high started on insulin, this morning patient states feeling little better swelling has improved denies any nausea or vomiting able to tolerate p.o., denies any fever or chills patient blood sugar have trended down close to 200, will apply Bactroban to her cold sores and monitor will have a PT OT evaluate the patient. Review of Systems Review of Systems: All systems reviewed & are unremarkable except as noted in HPI and below Exam Narrative: Exam Narrative: Moderately obese Patient is comfortable, NAD HEENT: Left upper
[2020-02-05 17:09] LABS: Glucose Point of Care 355 (65-105)
[2020-02-05 22:05] LABS: Glucose Point of Care 337 (65-105)
--- NOTE | 2020-02-06 01:16 | PC.NURSE ---
This patient, Rula Goldstein, was transferred to [[id number]] on 02/05/20 at 1930. Personal belongings sent with patient. Report given to [ ]. Appropriate documentation sent with patient.
[2020-02-06] MEDS: valACYclovir HCL 500 MG TABLET 1000 MG PO ×2 (05:29→13:02)
[2020-02-06] MEDS: LEVOTHYROXINE SODIUM 150 MCG TABLET PO (05:30)
[2020-02-06 06:13] VITALS: BP 138/64; PULSE 77; RESP 17; TEMP 36.1; O2SAT 96
[2020-02-06 06:13] LABS: Hematocrit 37.8 % (37.0-47.0); Hemoglobin 12.8 g/dL (12.0-15.0); Mean Corpuscular HGB Conc 33.9 g/dl (32-36); Mean Corpuscular Hemoglobin 29.3 pg (26-34); Mean Corpuscular Volume 86.5 fl (80-100); Mean Platelet Volume 9.5 fl (7.4-10.4); Platelet Count Result 335 k/mm3 (150-375); Red Blood Count 4.37 M/mm3 (4.2-5.4); Red Cell Distribution Width 12.2 % (11.5-14.5); White Blood Count 8.1 K/mm3 (4.5-10.0)
[2020-02-06 06:14] LABS: Anion Gap 8 mmol/L (8-16); Blood Urea Nitrogen 10 mg/dL (7-17); Calcium 8.3 mg/dL (8.4-10.2); Carbon Dioxide 30 mmol/L (22-30); Chloride 96 mmol/L (98-107); Estimated CRCL calculation 78 ml/min; Estimated Glomerular Filt Rate > 60; Glucose 304 mg/dL (65-105); Potassium 3.3 mmol/L (3.4-5.0); Sodium 134 mmol/L (137-145)
[2020-02-06 08:12] LABS: Glucose Point of Care 318 (65-105)
[2020-02-06] MEDS: hydroCHLOROthiazide 25 MG TABLET PO (08:30)
[2020-02-06] MEDS: ROSUVASTATIN 10 MG TABLET PO (08:30)
[2020-02-06] MEDS: FLUoxetine HCL 20 MG CAPSULE PO (08:30)
[2020-02-06] MEDS: THERAPEUTIC MULTIVITAMINS/MINERALS TAB (*BKC) 1 TABLET PO (08:30)
[2020-02-06] MEDS: ASPIRIN 81 MG ENTERIC TABLET PO (08:30)
[2020-02-06] MEDS: amLODIPine BESYLATE 5 MG TABLET PO (08:30)
[2020-02-06] MEDS: DULoxetine HCL 60 MG CAPSULE.DR PO (08:31)
[2020-02-06] MEDS: CYCLOBENZAPRINE HCL 5 MG TABLET PO (08:31)
[2020-02-06] MEDS: LORATADINE 10 MG TABLET PO (08:31)
[2020-02-06] MEDS: MUPIROCIN 2% OINT 22 GM TUBE 1 APPLIC TOPICAL ×2 (08:31→13:03)
[2020-02-06] MEDS: CYANOCOBALAMIN 1,000 MCG TABLET 1000 MCG PO (08:31)
[2020-02-06] MEDS: FAMOTIDINE 20 MG/2 ML VIAL IV PUSH (08:31)
[2020-02-06] MEDS: DOXYCYCLINE HYCLATE 100 MG TABLET PO (08:31)
[2020-02-06] MEDS: INSULIN ASPART (*BKC) 100 UNITS/ML SUB-Q ×2 (08:31→13:04)
[2020-02-06] MEDS: LOSARTAN POTASSIUM 50 MG TABLET PO (08:31)
[2020-02-06] MEDS: POTASSIUM CHLORIDE 20 MEQ PACKET (FOR LIQUID) 40 MEQ PO (08:40)
--- NOTE | 2020-02-06 11:14 | PM.DS ---
DS: Admitting Diagnosis Admitting Diagnosis Admitting Diagnosis: hyperglycemia, dizzy, herpes simplex lip DS: Discharge Diagnosis Discharge Diagnosis (1) Uncontrolled type 2 diabetes mellitus with hyperglycemia, with long-term current use of insulin: Code(s): E11.65 - Type 2 diabetes mellitus with hyperglycemia; Z79.4 - shelter (current) use of insulin Status: Acute Assessment and Plan: The patient has been placed in observation status. Accu-Cheks, sliding scale insulin coverage, hypoglycemia protocol. Diabetes Education. Continue IV fluids. 02/05/20 16:19 Patient is 74-year-old female with history of diabetes had developed cold sore on her left upper lip is quite swollen patient was not able to take her oral medication as well as insulin her symptoms were getting progressively, patient was initially seen by her primary care it was given doxycycline and bowel valtrex but there was no improvement in her swelling, because of swelling patient was not able to wear her dentures and was not able to eat felt nauseated and presented emergency department for further evaluate upon arrival patient blood sugar was 778 however patient was not DKA and her anion gap was normal, patient was vigorously high started on insulin, this morning patient states feeling little better swelling has improved denies any nausea or vomiting able to tolerate p.o., denies any fever or chills patient blood sugar have trended down close to 200, will apply Bactroban to her cold sores and monitor will have a PT OT evaluate the patient. (2) Primary herpes simplex infection of lips: Code(s): B00.1 - Herpesviral vesicular dermatitis Status: Acute Assessment and Plan: Continue Valtrex. Continue doxycycline to complete 10 day course that the patient has been started on. (3) COPD (chronic obstructive pulmonary disease): Qualifiers: COPD type: unspecified COPD Qualified Code(s): J44.9 - Chronic obstructive pulmonary disease, unspecified Code(s): J44.9 - Chronic obstructive pulmonary disease, unspecified Status: Chronic Assessment and Plan: Continue bronchodilators. (4) Hypertension: Qualifiers: Hypertension type: essential hypertension Qualified Code(s): I10 - Essential (primary) hypertension Code(s): I10 - Essential (primary) hypertension Status: Chronic Assessment and Plan: Elevated. Monitor blood pressure. Continue losartan, hydrochlorothiazide, Metoprolol,and amlodipine. p.r.n. IV hydralazine is ordered with parameters. (5) Hypothyroidism: Qualifiers: Hypothyroidism type: postoperative Qualified Code(s): E89.0 - Postprocedural hypothyroidism Code(s): E03.9 - Hypothyroidism, unspecified Status: Chronic Assessment and Plan: Continue levo thyroxine p.o.. DS: Summary Hospital Course Reason for hospitalization: Chief complaint: hyperglycemia, dizzy, herpes simplex lip Narrative: This is a pleasant 74-year-old obese diabetic female with known COPD who presented to the hospital today with a complaint of having cold sores of her upper lip as well as an elevated blood glucose. The patient reports that she had an outbreak of cold sores involving her upper lip that started this past and the very next day her upper lip became severely swollen. She was started on doxycycline by her PCP and also treated with Valtrex. The patient admits that she has not been taking her insulin as she was recently switched from being on Lantus and Humulin insulin 3 times a day to U 500 insulin which she says she cannot tolerate. The patient simply has not been taking any insulin but she believe that it was not necessary because she has not been able to eat since the cold sores involving her upper lip has prevented her to put in her dentures. Tonight in the emergency room the patient was found to have a blood glucose of 778 mg/dl. It does not
[2020-02-06 12:03] LABS: Glucose Point of Care 351 (65-105)
== END 2020-02-06 15:04 | disposition home or self-care (01) ==
LOC: ANHED 20:22 → ANHIMU 20:43 → ANH3MED 02-06 11:14 → ANHIMU 02-07 16:27
PROVIDERS: Emergency Medicine Emergency Medical Services; Admitting Provider Family Medicine; Emergency Provider Emergency Medicine; PCP Family Medicine; Visit Provider Family Medicine
DX: E11.65 Type 2 diabetes mellitus with hyperglycemia (principal); B00.1 Herpesviral vesicular dermatitis; J44.9 Chronic obstructive pulmonary disease, unspecified; I10 Essential (primary) hypertension; E03.9 Hypothyroidism, unspecified; R53.83 Other fatigue; R53.1 Weakness; Z79.4 Long term (current) use of insulin; Z79.82 Long term (current) use of aspirin; R11.0 Nausea; R42 Dizziness and giddiness; Z87.891 Personal history of nicotine dependence; Z91.14 Patient's other noncompliance with medication regimen
CPT/HCPCS: 36415; 36600; 71045; 80048; 80053; 81001; 82010; 82375; 82805; 82948; 83050; 83735; 84100; 85025; 85027; 94640; 96361; 96374; 96375; 96376; 97161; 97165; 99285; A9270; G0378; J1815; J7030; J7040; J7120

== ENCOUNTER 2020-02-25 23:26 | Emergency (ER) | payer MEDICARE, SELFPAY ==
--- NOTE | ~2020-02-25 | CT_ITS ---
EXAMINATION: CT abdomen pelvis wo con EXAM DATE: 02/26/2020 00:26 INDICATION: Abdominal pain. TECHNIQUE: Spiral CT of the abdomen and pelvis was performed without contrast. Axial, coronal and s agittal images were reviewed. The dose-length product (DLP) for this examination was 1011.45 mGy-cm. The exposure was tailored according to patient size (auto mA exposure control), and iterative recon struction (ASIR) was used as additional dose reduction technique. Comparison is made to prior examina tion from 08/08/2012. FINDINGS: The liver, spleen, adrenal glands and pancreas are unremarkable. Gallbladder not identifie d, patient likely has had cholecystectomy. There is no nephrolithiasis or hydronephrosis. The uter us is not identified and has likely been surgically resected. The bladder is undistended at time of imaging. There is no retroperitoneal or pelvic lymphadenopathy. There is moderate scattered arteri osclerotic disease. The appendix is normal. The stomach and small bowel are unremarkable. There is expected amount of c olonic stool. There is moderate sigmoid colonic diverticulosis. There is no adjacent inflammatory ch curt to suggest diverticulitis. There is a 3 cm duodenal diverticulum. The heart is normal in size. There are no pericardial or pleural effusions. The lung bases are unremarkable. There are no oste oblastic or osteolytic lesions identified. IMPRESSION: 1. No acute intra-abdominal findings. 2. Moderate sigmoid predominant diverticulosis. 3. Duodenal diverticulum. Reviewed, dictated and finalized at location B. ANALYST
[2020-02-25 23:29] VITALS: BP 174/58; PULSE 94; RESP 20; TEMP 36.1; O2SAT 96
[2020-02-25 23:39] VITALS: PULSE 96; O2SAT 97
[2020-02-25 23:40] VITALS: BP 145/68; PULSE 92; O2SAT 99
[2020-02-25 23:45] VITALS: PULSE 90; RESP 18; O2SAT 97
[2020-02-26] VITALS (12 sets, daily range): BP systolic 124–142; BP diastolic 60–70; PULSE 86–98; RESP 14–21; O2SAT 94–98
[2020-02-26] MEDS: ONDANSETRON INJ 4 MG/2 ML VIAL IV PUSH (00:13)
[2020-02-26] MEDS: SODIUM CHLORIDE 0.9% IV 1,000 ML 999 ML IV CONT (00:14)
[2020-02-26 00:15] LABS: Basophils Absolute Auto 0.1 K/mm3 (0.0-0.1); Basophils Percent Auto 0.3 % (0.2-1.2); Hematocrit 41.3 % (37.0-47.0); Hemoglobin 13.5 g/dL (12.0-15.0); Immature Granulocyte Absolute 0.05 K/mm3 (0.00-0.031); Immature Granulocyte Percent A 0.3 % (0-0.5); Lymphocytes Absolute Auto 1.87 K/mm3 (0.9-3.2); Lymphocytes Percent Auto 12.3 % (18.3-44.2); Mean Corpuscular HGB Conc 32.7 g/dl (32-36); Mean Corpuscular Hemoglobin 29.7 pg (26-34); Mean Corpuscular Volume 90.8 fl (80-100); Mean Platelet Volume 9.1 fl (7.4-10.4); Monocytes Absolute Auto 1.2 K/mm3 (0.1-0.6); Monocytes Percent Auto 7.9 % (2.6-8.5); Neutrophils Absolute Auto 12.1 K/mm3 (1.3-6.7); Neutrophils Percent Auto 79.2 % (45.5-73.1); Platelet Count Result 302 k/mm3 (150-375); Red Blood Count 4.55 M/mm3 (4.2-5.4); Red Cell Distribution Width 13.1 % (11.5-14.5); White Blood Count 15.2 K/mm3 (4.5-10.0)
--- NOTE | 2020-02-26 00:16 | PC.NURSE ---
Patient being taken to CT.
[2020-02-26 00:28] LABS: Alanine Aminotransferase 26 U/L (4-35); Albumin Level 4.1 g/dL (3.5-5.1); Alkaline Phosphatase 114 U/L (38-126); Anion Gap 9 mmol/L (8-16); Aspartate Amino Transferase 28 U/L (14-36); Bilirubin,Total 0.5 mg/dL (0.2-1.3); Blood Urea Nitrogen 11 mg/dL (7-17); Calcium 9.1 mg/dL (8.4-10.2); Carbon Dioxide 35 mmol/L (22-30); Chloride 97 mmol/L (98-107); Estimated CRCL calculation 68 ml/min; Estimated Glomerular Filt Rate > 60; Glucose 84 mg/dL (65-105); Lipase 68 U/L (23-300); Potassium 3.2 mmol/L (3.4-5.0); Sodium 141 mmol/L (137-145)
--- NOTE | 2020-02-26 01:02 | ED.GENADULT ---
HPI - General Adult General Chief complaint: Nausea/Vomiting/Diarrhea Stated complaint: n/v/d, low bs Time Seen by Provider: 02/25/20 23:49 History of Present Illness HPI narrative: Patient is a 74-year-old female who presents the emergency department with complaint of nausea and vomiting. Patient reports that she started having loose stool this week and then tonight started vomiting. Patient states that she was concerned because she is an insulin-dependent diabetic and was unable to eat or drink and was concerned that her blood sugars may drop down. Patient states that her abdomen feels uncomfortable but does not have a specific spot that hurts directly but does report this a little bit more in the upper part of her abdomen. Patient denies fever denies chills patient denies blood in the bowel movements or vomiting. Related Data Home Medications Medication Instructions Recorded Confirmed aspirin 81 mg tablet,delayed 81 mg PO DAILY 01/10/19 02/04/20 release omeprazole 20 mg capsule,delayed 20 mg PO HS 01/10/19 02/04/20 release amlodipine 5 mg PO QAM 11/17/19 02/04/20 budesonide-formoterol [Symbicort] 2 puff INHALATION BID 11/17/19 02/04/20 duloxetine 60 mg PO DAILY 11/17/19 02/04/20 hydrochlorothiazide 25 mg PO QAM 11/17/19 02/04/20 levothyroxine 150 mcg PO QAM 11/17/19 02/04/20 losartan 50 mg PO QAM 11/17/19 02/04/20 metoprolol succinate 25 mg PO HS 11/17/19 02/04/20 B12 Active 1,000 mcg PO DAILY 12/04/19 02/04/20 Caltrate 600 plus D 1 tablet PO DAILY 12/04/19 02/04/20 Multiple Vitamin, Womens 1 tablet PO DAILY 12/04/19 02/04/20 Zyrtec 10 mg PO DAILY 12/04/19 02/04/20 albuterol sulfate [Ventolin HFA] 90 mcg INHALATION PRN PRN 12/04/19 02/04/20 fluoxetine 20 mg PO DAILY 12/04/19 02/04/20 melatonin 3 mg PO HS 12/04/19 02/04/20 rosuvastatin 10 mg PO DAILY 10/05/20 12/06/20 ranitidine HCl mg 02/25/20 triamcinolone acetonide [Nasacort] 1 spray INTRANASAL DAILY 02/25/20 Allergies Allergy/AdvReac Type Severity Reaction Status Date / Time shellfish derived Allergy Severe HIVES/RASH Verified 02/25/20 23:50 shrimp Allergy Severe RASH/HIVES Verified 02/25/20 23:50 celecoxib Allergy Intermediate RASH/HIVES Verified 02/25/20 23:50 fish oil Allergy Intermediate RASH/HIVES Verified 02/25/20 23:50 metformin Allergy Unknown Chest Pain Verified 02/25/20 23:50 Contrast Media Allergy Intermediate NAUSEA, Uncoded 01/31/20 11:11 HOT FLASHES, DYSPNEA Review of Systems Review of Systems: Narrative: A 10 system review of systems was completed on the patient and is negative except for what is stated in the HPI. Nursing and ancillary documentation was reviewed. [facility] Past Medical History Medical History Bilateral hip pain Bilateral knee pain COPD (chronic obstructive pulmonary disease) Degenerative joint disease of knee Internal nasal lesion Joint pain Lumbar spine pain Positive GEETHA (antinuclear antibody) Right groin pain Sleeping difficulties Trochanteric bursitis Family History Family History Father Diabetes mellitus Hypertension Cerebrovascular accident Family history of malignant melanoma Mother Diabetes mellitus Hypertension Family history of lung cancer Sibling Family history of malignant melanoma Other Family history of cardiovascular disease Family history of malignant neoplasm Malignant neoplasm of prostate Social History Social History Smoking packs per day: 3 Smoking cigarettes per day: 60.0 Years smoked: 30 Smoking pack-years: 90.00 Smoking status: Former smoker Tobacco type: cigarettes Smoking end date: 03/01/98 Alcohol intake: never Substance use: never Substance use type: does not use Gender identity (if verbalized by the patient): Female Spiritual care concerns: No
--- NOTE | 2020-02-26 01:32 | PC.NURSE ---
Patient given jello and apple juice for PO challenge.
[2020-02-26 02:10] LABS: Add Urine Microscopic? YES; Appearance Urine Clear (Clear); Bacteria Urine Trace /hpf; Bilirubin Urine Negative (Negative); Blood Urine Negative (Negative); Color Urine Yellow (Yellow); Glucose Urine UA Negative (Negative); Ketones Urine Negative (Negative); Leukocyte Esterase Ur 1+ LEU/UL (Negative); Mucus Urine Rare /lpf; Nitrate Urine Negative (Negative); Protein Urine Negative (Negative); Specific Grav Ur 1.009 (1.001-1.035); Squamous Epithelial Cell Urine Many /hpf (Few); Urobilinogen Urine Negative mg/dL (<2.0)
== END 2020-02-26 02:36 | disposition home or self-care (01) ==
PROVIDERS: Emergency Provider Emergency Medicine; PCP Family Medicine
DX: R11.2 Nausea with vomiting, unspecified (principal); R10.84 Generalized abdominal pain; J44.9 Chronic obstructive pulmonary disease, unspecified; E11.9 Type 2 diabetes mellitus without complications; M17.10 Unilateral primary osteoarthritis, unspecified knee; Z87.891 Personal history of nicotine dependence; Z79.4 Long term (current) use of insulin; Z79.82 Long term (current) use of aspirin
CPT/HCPCS: 36415; 74176; 80053; 81001; 83690; 85025; 87086; 87088; 96361; 96374; 99284; J2405; J7030

== ENCOUNTER 2020-05-29 15:07 | Outpatient (CLI) | payer MEDICARE, SELFPAY ==
[2020-05-29 16:43] LABS: HDL Direct 37 mg/dL
[2020-05-29 16:53] LABS: LDL Cholesterol Direct 54 mg/dL
[2020-05-29 16:59] LABS: Free T4 Free Thyroxine 1.37 ng/mL (0.78-2.19)
[2020-05-29 17:14] LABS: Thyroid Stimulating Hormone 0.141 uIU/mL (0.465-4.680)
[2020-05-29 17:22] LABS: Creatinine Urine 60.8 mg/dL
[2020-05-29 17:29] LABS: MALB Creatinine Ratio < 9.9 mg/g (0-30); Microalbumin Urine Random < 6.0 mg/L (0-16.7)
== END 2020-05-29 15:08 | disposition home or self-care (01) ==
LOC: ANHWCLAB 15:11
PROVIDERS: PCP Family Medicine; Referring Provider Internal Medicine Endocrinology, Diabetes & Metabolism; Visit Provider Internal Medicine Endocrinology, Diabetes & Metabolism
DX: E89.0 Postprocedural hypothyroidism (principal); E11.65 Type 2 diabetes mellitus with hyperglycemia; Z79.4 Long term (current) use of insulin
CPT/HCPCS: 36415; 82043; 83718; 83721; 84439; 84443

== ENCOUNTER → 2020-08-06 15:52 | Outpatient (CLI) | payer MEDICARE, SELFPAY ==
--- NOTE | ~2020-08-06 | MM_ITS ---
EXAMINATION: MM screening taryn RT w jose angel HISTORY: Screening mammogram. Status post left mastectomy for breast cancer. TECHNIQUE: Craniocaudal and mediolateral oblique 3-D tomosynthesis images were obtained and synthetic 2-D images were generated. CAD analysis was submitted and interpreted. COMPARISON: April 26, 2019, 03/2018 right digital screening mammogram examinations BREAST PARENCHYMAL COMPOSITION: There are scattered areas of fibroglandular density. FINDINGS: Stable benign circumscribed upper outer quadrant intramammary lymph node. There is no evide nce of suspicious mass, calcification, or architectural distortion to suggest malignancy in either br east. There has been no suspicious interval change. IMPRESSION: 1. No mammographic evidence of malignancy. 2. Recommend routine screening mammography in one year. BI-RADS Category 1: Negative Reviewed, dictated and finalized at location A.
== END ==
PROVIDERS: PCP Family Medicine; Visit Provider Family Medicine
DX: Z12.31 Encounter for screening mammogram for malignant neoplasm of breast (principal)
CPT/HCPCS: 77063; 77067

== ENCOUNTER 2020-10-04 14:47 | Inpatient (IN) | payer MEDICARE, SELFPAY ==
[2020-10-04 14:48] VITALS: BP 129/49; PULSE 99; RESP 18; TEMP 36.9; O2SAT 97
--- NOTE | 2020-10-04 16:38 | ED.SKABFB ---
HPI - Skin/Abscess/Foreign Bdy General Chief complaint: Skin/Abscess/Foreign Body <Cristina Whatley PA-C - Last Filed: 10/04/20 19:55> Stated complaint: possible cellulitis above left eye <Cristina Whatley PA-C - Last Filed: 10/04/20 19:55> Time Seen by Provider: 10/04/20 16:21 <HASMUKH Delacruz Last Filed: 10/04/20 19:55> Source: patient <HASMUKH Delacruz Last Filed: 10/04/20 19:55> Mode of arrival: ambulatory <HASMUKH Delacruz Last Filed: 10/04/20 19:55> Limitations: no limitations <HASMUKH Delacruz Last Filed: 10/04/20 19:55> History of Present Illness HPI narrative: This is a 75 year old female that presents to the ER for rash noted to the left side of her face for the last 4 days. Reports redness to the left side of her forehead. Reports the swelling has started to go down into her left eyelid. Denies fever, vision changes, or eye pain, redness or discharge. <HASMUKH Delacruz Last Filed: 10/04/20 19:55> Related Data Home medications: Home Medications Medication Instructions Recorded Confirmed aspirin 81 mg tablet,delayed 81 mg PO DAILY 01/10/19 09/30/20 release omeprazole 20 mg capsule,delayed 20 mg PO HS 01/10/19 09/30/20 release budesonide-formoterol [Symbicort] 2 puff INHALATION BID 11/17/19 09/30/20 metoprolol succinate 25 mg PO HS 11/17/19 09/30/20 B12 Active 1,000 mcg PO DAILY 12/04/19 09/30/20 Caltrate 600 plus D 1 tablet PO DAILY 12/04/19 09/30/20 Multiple Vitamin, Womens 1 tablet PO DAILY 12/04/19 09/30/20 Zyrtec 10 mg PO DAILY 12/04/19 09/30/20 albuterol sulfate [Ventolin HFA] 90 mcg INHALATION PRN PRN 12/04/19 09/30/20 melatonin 3 mg PO HS 12/04/19 09/30/20 rosuvastatin 10 mg PO DAILY 12/04/19 09/30/20 triamcinolone acetonide [Nasacort] 1 spray INTRANASAL DAILY 02/25/20 09/30/20 folic acid 1 mg tablet 1 mg PO DAILY 05/07/20 09/30/20 methotrexate sodium 5 mg tablet 5 mg PO WEEKLY 09/30/20 09/30/20 insulin glargine U-300 conc unit SUBCUT 10/04/20 [Toujeo Max U-300 SoloStar] insulin glargine U-300 conc unit SUBCUT 10/04/20 [Toujeo Max U-300 SoloStar] <Cristina Whatley PA-C - Last Filed: 10/04/20 19:55> Allergies/Adverse reactions: Allergies Allergy/AdvReac Type Severity Reaction Status Date / Time shellfish derived Allergy Severe HIVES/RASH Verified 10/04/20 16:15 shrimp Allergy Severe RASH/HIVES Verified 10/04/20 16:15 celecoxib Allergy Intermediate RASH/HIVES Verified 10/04/20 16:15 fish oil Allergy Intermediate RASH/HIVES Verified 10/04/20 16:15 metformin Allergy Unknown Chest Pain Verified 10/04/20 16:15 Contrast Media Allergy Intermediate NAUSEA, Uncoded 10/04/20 16:15 HOT FLASHES, DYSPNEA <Cristina Whatley PA-C - Last Filed: 10/04/20 19:55> Review of Systems Review of Systems: CONSTITUTIONAL: Denies fever EYES: Denies visual changes, redness, or discharge. SKIN: Reports rash <Cristina Whatley PA-C - Last Filed: 10/04/20 19:55> All systems reviewed & are unremarkable except as noted in HPI and below <HASMUKH Delacruz Last Filed: 10/04/20 19:55> [facility] Past Medical History Medical History: Medical History Bilateral hip pain Bilateral knee pain COPD (chronic obstructive pulmonary disease) Degenerative joint disease of knee Internal nasal lesion Joint pain Lumbar spine pain Positive GEETHA (antinuclear antibody) Right groin pain Sleeping difficulties Trochanteric bursitis <Cristina Whatley PA-C - Last Filed: 10/04/20 19:55> Family History Family History: Family History Father Diabetes mellitus Hypertension Cerebrovascular accident Family history of malignant melanoma Mother Diabetes mellitus Hypertension Family history of lung cancer Sibling Family history of malignant melanoma Other Family history of cardiovascular dise
[2020-10-04 17:12] LABS: Basophils Percent Auto 0.2 % (0.2-1.2); Hematocrit 42.9 % (37.0-47.0); Hemoglobin 13.7 g/dL (12.0-15.0); Immature Granulocyte Absolute 0.11 K/mm3 (0.00-0.031); Immature Granulocyte Percent A 0.6 % (0-0.5); Lymphocytes Absolute Auto 1.43 K/mm3 (0.9-3.2); Lymphocytes Percent Auto 7.9 % (18.3-44.2); Mean Corpuscular HGB Conc 31.9 g/dl (32-36); Mean Corpuscular Hemoglobin 28.8 pg (26-34); Mean Corpuscular Volume 90.3 fl (80-100); Mean Platelet Volume 9.1 fl (7.4-10.4); Monocytes Absolute Auto 1.1 K/mm3 (0.1-0.6); Monocytes Percent Auto 5.9 % (2.6-8.5); Neutrophils Absolute Auto 15.4 K/mm3 (1.3-6.7); Neutrophils Percent Auto 85.4 % (45.5-73.1); Platelet Count Result 340 k/mm3 (150-375); Red Blood Count 4.75 M/mm3 (4.2-5.4); Red Cell Distribution Width 14.2 % (11.5-14.5); White Blood Count 18.1 K/mm3 (4.5-10.0)
[2020-10-04 17:28] LABS: Anion Gap 10 mmol/L (8-16); Blood Urea Nitrogen 16 mg/dL (7-17); CRP 1.9 mg/dL (<1.0); Calcium 9.2 mg/dL (8.4-10.2); Carbon Dioxide 28 mmol/L (22-30); Chloride 96 mmol/L (98-107); Estimated CRCL calculation 58 ml/min; Estimated Glomerular Filt Rate > 60; Glucose 248 mg/dL (65-110); Potassium 3.8 mmol/L (3.4-5.0); Sodium 134 mmol/L (137-145)
[2020-10-04 17:50] LABS: Erythrocyte Sedimentation Rate 18 mm/hr (0-20)
[2020-10-04 18:42] VITALS: BP 121/74; PULSE 74; RESP 18; O2SAT 100
[2020-10-04 19:49] LABS: Glucose Point of Care 203 mg/dl (65-105)
[2020-10-04 21:21] VITALS: BP 134/72; PULSE 93; RESP 20; TEMP 36.3; O2SAT 95
[2020-10-04 21:24] VITALS: BMI 33.5
--- NOTE | 2020-10-04 22:50 | ADMGEN ---
This patient, Rula Goldstein, was admitted to Medical Room 252-01. Patient/family oriented to hospital policies and general routines including ID bracelet, bed and alarms, visiting hours, pain management, procedures, bathroom and other care routines, personal items, smoking policy, room service/diet, and visiting hours. Information on how to activate the Rapid Response Team has been discussed. Patient/Family are encouraged to report perceived risks to care and to ask questions if they do not understand what they are told or what they should do.
--- NOTE | 2020-10-05 04:07 | PM.IMHP ---
H&P: HPI History of Present Illness Date/Time: 10/05/20 04:07 Chief Complaint: Cellulitis Narrative: This is a 75-year-old female with past medical history significant for RA, OA, COPD, CHRONIC LUMBAR SPINE PAIN, DEGENERATIVE JOINT DISEASE. PATIENT PRESENTED TO THE EMERGENCY ROOM DUE TO CELLULITIS OF HER FOREHEAD STATES THAT IT STARTED ROUGHLY 2 DAYS AGO AND THAT SHE HAS BEEN HAVING THIS PROBLEM ON NOW FOR QUITE SOME TIME HAS BEEN APPLYING NEOSPORIN ON IT BUT HAS NOT GONE AWAY AND HAS GOTTEN WORSE. SHE DENIES ANY CHILLS OR RIGORS FEVERS, NAUSEA VOMITING DIARRHEA ABDOMINAL PAIN. PRELIMINARY WORKUP WAS SIGNIFICANT FOR A WBC OF 18,000 WITH NEUTROPHIL OF 85% ELEVATED BLOOD SUGARS IN THE 250'S. DECISION HAS BEEN MADE TO PLACE THE PATIENT IN OBSERVATION FOR FURTHER ASSESSMENT AND TREATMENT AND IV ANTIBIOTIC THERAPY. Review of Systems Review of Systems: LEFT FOREHEAD CELLULITIS Constitutional: Constitutional: Denies chills, Denies fever(s) and Denies malaise Eyes: Eyes: Denies change in vision ENT: Denies dysphagia, Denies nasal congestion, Denies nasal discharge, Denies nasal obstruction and Denies odynophagia Cardiovascular: Cardiovascular: Denies chest pain, Denies irregular heart rhythm, Denies radiating jaw, neck or arm pain, Denies palpitations, Denies dyspnea and Denies orthopnea Respiratory: Respiratory: Denies cough Gastrointestinal: Gastrointestinal: Denies abdominal pain, Denies diarrhea, Denies nausea and Denies vomiting Musculoskeletal: Musculoskeletal: Reports arthralgias Comments: CHRONIC Integumentary/Breasts: Skin/Breast: Reports furuncle Neurologic: Denies focal weakness and Denies Sensory deficit (Neuro) Psychiatric: Psychiatric: Reports no additional psychiatric complaints Endocrine: Endocrine: Reports no additional endocrine complaints Hematologic/Lymphatic: Hematologic/Lymphatic: Reports no additional hematologic/lymphatic complaints Allergic/Immunologic: Allergic/Immunologic: Reports no additional allergic/immunologic complaints [facility] Past Medical History Medical History Bilateral hip pain Bilateral knee pain COPD (chronic obstructive pulmonary disease) Degenerative joint disease of knee Internal nasal lesion Joint pain Lumbar spine pain Positive GEETHA (antinuclear antibody) Right groin pain Sleeping difficulties Trochanteric bursitis Family History Family History Father Diabetes mellitus Hypertension Cerebrovascular accident Family history of malignant melanoma Mother Diabetes mellitus Hypertension Family history of lung cancer Sibling Family history of malignant melanoma Other Family history of cardiovascular disease Family history of malignant neoplasm Malignant neoplasm of prostate Social History Social History Smoking packs per day: 3 Smoking cigarettes per day: 60.0 Years smoked: 39 Smoking pack-years: 117.00 Smoking status: Former smoker Tobacco type: cigarettes Second hand tobacco smoke exposure: Yes Smoking end date: 03/01/98 Alcohol intake: never Substance use: never Substance use type: does not use Gender identity (if verbalized by the patient): Female Spiritual care concerns: No Meds Home Medications and Allergies Home Medications Medication Instructions Recorded Confirmed Type aspirin 81 mg tablet,delayed 81 mg PO HS 01/10/19 10/04/20 History release omeprazole 20 mg capsule,delayed 20 mg PO HS 01/10/19 10/04/20 History release budesonide-formoterol [Symbicort] 2 puff INHALATION BID 11/17/19 10/04/20 History metoprolol succinate 25 mg PO HS 11/17/19 10/04/20 History albuterol sulfate [Ventolin HFA] 90 mcg INHALATION PRN PRN 12/04/19 10/04/20 History melatonin 3 mg PO HS PRN 12/04/19 10/04/20 History rosuvastatin 10 mg PO HS 12/04/19 10/04/20 Hist
[2020-10-05 04:39] LABS: Glucose Point of Care 237 mg/dl (65-105)
[2020-10-05] MEDS: LEVOTHYROXINE SODIUM 125 MCG TABLET PO (05:43)
[2020-10-05 05:49] VITALS: BP 155/80; PULSE 110; RESP 18; TEMP 37.2; O2SAT 98
[2020-10-05 09:03] LABS: Glucose Point of Care 176 mg/dl (65-105)
[2020-10-05 09:39] LABS: Hematocrit 40.7 % (37.0-47.0); Hemoglobin 13.5 g/dL (12.0-15.0); Mean Corpuscular HGB Conc 33.2 g/dl (32-36); Mean Corpuscular Hemoglobin 28.8 pg (26-34); Mean Platelet Volume 9.5 fl (7.4-10.4); Platelet Count Result 376 k/mm3 (150-375); Red Blood Count 4.68 M/mm3 (4.2-5.4); Red Cell Distribution Width 14.4 % (11.5-14.5)
[2020-10-05 09:46] LABS: Anion Gap 10 mmol/L (8-16); Blood Urea Nitrogen 11 mg/dL (7-17); Calcium 8.9 mg/dL (8.4-10.2); Carbon Dioxide 29 mmol/L (22-30); Chloride 94 mmol/L (98-107); Estimated CRCL calculation 67 ml/min; Estimated Glomerular Filt Rate > 60; Glucose 176 mg/dL (65-110); Potassium 3.5 mmol/L (3.4-5.0); Sodium 133 mmol/L (137-145)
[2020-10-05] MEDS: predniSONE 5 MG TABLET 15 MG PO (09:51)
[2020-10-05] MEDS: DULoxetine HCL 30 MG CAPSULE.DR PO (09:51)
[2020-10-05] MEDS: amLODIPine BESYLATE 5 MG TABLET PO (09:51)
[2020-10-05] MEDS: LOSARTAN POTASSIUM 50 MG TABLET PO (09:52)
[2020-10-05] MEDS: FOLIC ACID 1 MG TABLET PO (09:52)
[2020-10-05] MEDS: hydroCHLOROthiazide 25 MG TABLET BY MOUTH (09:52)
[2020-10-05] MEDS: MUPIROCIN 2% OINT 22 GM TUBE 1 APPLIC EACH NARE ×2 (09:52→20:33)
[2020-10-05] MEDS: INSULIN ASPART (*BKC) 100 UNITS/ML 30 UNITS SUB-Q ×2 (12:30→18:41)
[2020-10-05] MEDS: INSULIN ASPART (*BKC) 100 UNITS/ML SUB-Q ×2 (12:39→18:42)
--- NOTE | 2020-10-05 12:49 | PM.IMPN ---
Progress Note: A&P Assessment and Plan (1) Furuncle of forehead: Code(s): L02.02 - Furuncle of face Status: Acute Assessment and Plan: Presented with raised tender region of left sided forehead with associated erythema, edema, and purulent drainage. Reports started as a pimple and has had many episodes similar to this. continue with IV vancomycin and Primaxin; topical mupirocin unable to obtain wound culture as there is no drainage and the area is crusted over supportive care. Ice as needed and analgesics as needed for pain remains afebrile (2) Cellulitis: Qualifiers: Site of cellulitis: face Qualified Code(s): L03.211 - Cellulitis of face Code(s): L03.90 - Cellulitis, unspecified Status: Acute Assessment and Plan: see above (3) Uncontrolled type 2 diabetes mellitus with hyperglycemia, with long-term current use of insulin: Code(s): E11.65 - Type 2 diabetes mellitus with hyperglycemia; Z79.4 - [facility] (current) use of insulin Status: Acute Assessment and Plan: A1c is 9.8. she appears to have significant insulin resistance requiring very high doses of insulin Accu-Cheks, sliding scale insulin, hypoglycemic protocol home regimen consists of 80 units of Toujeo and 44-60 units of Humalog t.i.d. sliding scale she is established with grip boss Dr. Nelson. Was just seen on 09/30/20 with reduction in Toujeo Toujeo nonformulary, will switch to Lantus with dose reduction. Continue novolog 30 units TID w meals and SSI. (4) COPD (chronic obstructive pulmonary disease): Qualifiers: COPD type: unspecified COPD Qualified Code(s): J44.9 - Chronic obstructive pulmonary disease, unspecified Code(s): J44.9 - Chronic obstructive pulmonary disease, unspecified Status: Chronic Assessment and Plan: no acute issues. Stable on room air continue Symbicort albuterol as needed (5) Rheumatoid arthritis: Code(s): M06.9 - Rheumatoid arthritis, unspecified Status: Acute Assessment and Plan: follows with rheumatology she is finishing up a lengthy steroid taper. Scheduled to be completed in 1-2 days, therefore will go ahead and discontinue her prednisone. leukocytosis secondary to ongoing steroids noted. holding methotrexate given acute infection supportive care Subjective Date/time seen: 10/05/20 12:49 Interval history: Date of service: 10/05/2020 Rula Goldstein is a 75-year-old female with history of rheumatoid arthritis on immunosuppressive therapy, poorly controlled type 2 diabetes mellitus with insulin resistance, and COPD is seen in follow-up for facial cellulitis. She is feeling well today She does complain of facial pain along her forehead. She said it started as a pimple that then became red and irritated. she tells me this has happened over 14 times and she has been told she has staph infection but cannot specify whether she has any history of MRSA. She feels that the redness is already starting to improve. She reported spontaneous purulent discharge for several days but no pus today. Reports that her eye is swollen but denies any visual changes. She denies nausea, vomiting, fever, or chills. She did have some sweats last night that have resolved. She has been eating well. No shortness of breath, cough, or chest pain. She has been able to get up and walk around. denies dizziness or lightheadedness. Overall, she is feeling well and in good spirits. Review of Systems Review of Systems: All systems reviewed & are unremarkable except as noted in HPI and below Exam Narrative: Ms. Goldstein is a well-nourished, well-appearing 75-year-old female who is lying supine in bed with an ice pack over her face. She appears comfortable and is in NARD. Neuro: awake, alert and oriented x4, speech clear, no focal neuro deficits noted HEENMT: normocephalic, atraumat
[2020-10-05 13:39] LABS: Glucose Point of Care 390 mg/dl (65-105)
[2020-10-05 16:45] VITALS: BP 174/78; PULSE 110; RESP 24; TEMP 36.9; O2SAT 94
[2020-10-05 18:26] LABS: Glucose Point of Care 341 mg/dl (65-105)
--- NOTE | 2020-10-05 19:11 | PHAR ---
IDENTIFIED Spiriva Respimat Active-Ingredient: Tiotropium [place] - 1.25 MCG/Actuation Available-Container Size: Inhaler of 1 Contact: [employer] Product ID: [id number] - 12/13 Form: Inhalation [place]
--- NOTE | 2020-10-05 19:15 | PHAR ---
IDENTIFIED Xiidra 5% LIFITEGRAST Active-Ingredient: Lifitegrast - 50 MG/ML Iipljhhit-Dfcnfxsca-Fxrjm: Ampule of 60; Ampule of 5 Contact: [employer] Product ID: [id number] - 09/13 Form: Ophthalmic Solution Color: Clear, Colorless to Slightly Brownish-Yellow
[2020-10-05] MEDS: PANTOPRAZOLE 40 MG TABLET PO (20:20)
[2020-10-05] MEDS: MONTELUKAST SODIUM 10 MG TABLET PO (20:20)
[2020-10-05] MEDS: DULoxetine HCL 60 MG CAPSULE.DR PO (20:20)
[2020-10-05] MEDS: ASPIRIN 81 MG ENTERIC TABLET PO (20:20)
[2020-10-05 20:22] VITALS: PULSE 103
[2020-10-05] MEDS: METOPROLOL SUCCINATE EXT REL 25 MG TABCR PO (20:22)
[2020-10-05] MEDS: ROSUVASTATIN 10 MG TABLET PO (20:22)
[2020-10-05] MEDS: INSULIN GLARGINE (*BKC) 100 UNITS/ML 60 UNITS SUB-Q (20:32)
[2020-10-05 22:00] VITALS: BP 118/87; PULSE 98; RESP 18; TEMP 37; O2SAT 97
[2020-10-05 22:26] VITALS: PULSE 101; RESP 16
[2020-10-05 22:33] LABS: Glucose Point of Care 283 mg/dl (65-105)
[2020-10-05 22:33] LABS: Glucose Point of Care 405 mg/dl (65-105)
[2020-10-05] MEDS: INSULIN ASPART (*BKC) 100 UNITS/ML 8 UNITS SUB-Q (23:17)
[2020-10-06 06:00] VITALS: BP 145/65; PULSE 80; RESP 18; TEMP 36.1; O2SAT 97
[2020-10-06 06:11] LABS: Hematocrit 41.2 % (37.0-47.0); Hemoglobin 13.7 g/dL (12.0-15.0); Mean Corpuscular HGB Conc 33.3 g/dl (32-36); Mean Corpuscular Hemoglobin 28.9 pg (26-34); Mean Corpuscular Volume 86.9 fl (80-100); Mean Platelet Volume 9.1 fl (7.4-10.4); Platelet Count Result 372 k/mm3 (150-375); Red Blood Count 4.74 M/mm3 (4.2-5.4); White Blood Count 19.9 K/mm3 (4.5-10.0)
[2020-10-06 06:29] LABS: Anion Gap 11 mmol/L (8-16); Blood Urea Nitrogen 17 mg/dL (7-17); CRP 3.4 mg/dL (<1.0); Carbon Dioxide 27 mmol/L (22-30); Chloride 97 mmol/L (98-107); Estimated CRCL calculation 67 ml/min; Estimated Glomerular Filt Rate > 60; Glucose 149 mg/dL (65-110); Potassium 3.6 mmol/L (3.4-5.0); Sodium 135 mmol/L (137-145)
[2020-10-06] MEDS: LEVOTHYROXINE SODIUM 125 MCG TABLET PO (06:48)
[2020-10-06] MEDS: ACETAMINOPHEN 500 MG TABLET 1000 MG PO (06:53)
[2020-10-06 07:49] LABS: Glucose Point of Care 221 mg/dl (65-105)
[2020-10-06] MEDS: INSULIN ASPART (*BKC) 100 UNITS/ML SUB-Q (08:22)
[2020-10-06] MEDS: INSULIN ASPART (*BKC) 100 UNITS/ML 30 UNITS SUB-Q ×3 (08:22→17:10)
[2020-10-06] MEDS: FOLIC ACID 1 MG TABLET PO (08:26)
[2020-10-06] MEDS: DULoxetine HCL 30 MG CAPSULE.DR PO (08:26)
[2020-10-06] MEDS: hydroCHLOROthiazide 25 MG TABLET BY MOUTH (08:26)
[2020-10-06] MEDS: amLODIPine BESYLATE 5 MG TABLET PO (08:27)
[2020-10-06] MEDS: LOSARTAN POTASSIUM 50 MG TABLET PO (08:27)
[2020-10-06] MEDS: MUPIROCIN 2% OINT 22 GM TUBE 1 APPLIC EACH NARE ×2 (08:28→20:39)
[2020-10-06 12:28] LABS: Glucose Point of Care 156 mg/dl (65-105)
--- NOTE | 2020-10-06 12:55 | PM.IMPN ---
Progress Note: A&P Assessment and Plan (1) Furuncle of forehead: Code(s): L02.02 - Furuncle of face Status: Acute Assessment and Plan: Presented with raised tender region of left sided forehead with associated erythema, edema, and purulent drainage. Reports started as a pimple and has had many episodes similar to this. continue with IV vancomycin and Primaxin unable to obtain wound culture as there is no drainage and the area is crusted over supportive care. Ice as needed and analgesics as needed for pain remains afebrile. Increased leukocytosis but has just completed steroid taper and this may contribute (2) Cellulitis: Qualifiers: Site of cellulitis: face Qualified Code(s): L03.211 - Cellulitis of face Code(s): L03.90 - Cellulitis, unspecified Status: Acute Assessment and Plan: see above (3) Uncontrolled type 2 diabetes mellitus with hyperglycemia, with long-term current use of insulin: Code(s): E11.65 - Type 2 diabetes mellitus with hyperglycemia; Z79.4 - oil heaterman (current) use of insulin Status: Acute Assessment and Plan: A1c is 9.8. she appears to have significant insulin resistance requiring very high doses of insulin Accu-Cheks, sliding scale insulin, hypoglycemic protocol home regimen consists of 80 units of Toujeo and 44-60 units of Humalog t.i.d. sliding scale she is established with nutrient management specialist Dr. Nelson. Was just seen on 09/30/20 with reduction in Toujeo Toujeo nonformulary. Continue Lantus with dose reduction. Continue novolog 30 units TID w meals and SSI. (4) COPD (chronic obstructive pulmonary disease): Qualifiers: COPD type: unspecified COPD Qualified Code(s): J44.9 - Chronic obstructive pulmonary disease, unspecified Code(s): J44.9 - Chronic obstructive pulmonary disease, unspecified Status: Chronic Assessment and Plan: no acute issues. Stable on room air continue Symbicort albuterol as needed (5) Rheumatoid arthritis: Code(s): M06.9 - Rheumatoid arthritis, unspecified Status: Acute Assessment and Plan: follows with rheumatology; no issues at this time She was on a lengthy steroid taper scheduled to be completed today. Discontinued 10/05 given infection. holding methotrexate given acute infection supportive care Subjective Date/time seen: 10/06/20 12:55 Interval history: Date of service: 10/06/2020 Rula Goldstein is a 75-year-old female with history of rheumatoid arthritis on immunosuppressive therapy, poorly controlled type 2 diabetes mellitus with insulin resistance, and COPD is seen in follow-up for facial cellulitis. she is doing well today. Feels that her swelling and tenderness is improving. No drainage. Also feels that her eye swelling has improved and she has no visual changes. She denies nausea, vomiting, fevers, or chills. She has been eating well. She does feel constipated and her last bowel movement was several days ago. She has been up and walking around the room without difficulty. Denies dizziness or lightheadedness. No shortness of breath, cough, or chest pain. Review of Systems Review of Systems: All systems reviewed & are unremarkable except as noted in HPI and below Exam Narrative: Ms. Goldstein is a well-nourished, well-appearing 75-year-old female who is sitting up at the bedside. She appears comfortable and is in NARD. Neuro: awake, alert and oriented x4, speech clear, no focal neuro deficits noted HEENMT: normocephalic, atraumatic, EOMI, sclerae anicteric, moist oral mucosa, tongue midline, nares patent Neck: supple, no lymphadenopathy Respiratory: clear to auscultation bilaterally, nonlabored breathing Cardio: regular rate, regular rhythm with S1-S2 Abdomen: nondistended, normoactive bowel sounds, soft, nontender to palpation Extremities: no edema, erythema, or tenderness to palpation, DP
[2020-10-06 14:00] VITALS: BP 131/54; PULSE 83; RESP 16; TEMP 36.1; O2SAT 95
[2020-10-06 14:54] LABS: Glucose Point of Care 220 mg/dl (65-105)
[2020-10-06 16:50] LABS: Glucose Point of Care 134 mg/dl (65-105)
[2020-10-06 20:00] VITALS: PULSE 96; RESP 18; O2SAT 94
[2020-10-06 20:38] VITALS: PULSE 75
[2020-10-06] MEDS: PANTOPRAZOLE 40 MG TABLET PO (20:38)
[2020-10-06] MEDS: METOPROLOL SUCCINATE EXT REL 25 MG TABCR PO (20:38)
[2020-10-06] MEDS: MONTELUKAST SODIUM 10 MG TABLET PO (20:39)
[2020-10-06] MEDS: ROSUVASTATIN 10 MG TABLET PO (20:39)
[2020-10-06] MEDS: ASPIRIN 81 MG ENTERIC TABLET PO (20:39)
[2020-10-06] MEDS: DULoxetine HCL 60 MG CAPSULE.DR PO (20:39)
[2020-10-06] MEDS: INSULIN GLARGINE (*BKC) 100 UNITS/ML 60 UNITS SUB-Q (20:43)
[2020-10-06 21:02] LABS: Glucose Point of Care 191 mg/dl (65-105)
[2020-10-06 21:14] VITALS: PULSE 105; RESP 16
[2020-10-06 21:48] VITALS: BP 111/60; PULSE 96; RESP 18; TEMP 36.8; O2SAT 94
[2020-10-06 23:21] LABS: Vancomycin Trough 7.7 ug/mL (10.0-20.0)
[2020-10-07 05:41] VITALS: BP 140/62; PULSE 91; RESP 18; TEMP 36.4; O2SAT 98
[2020-10-07 06:00] LABS: Basophils Percent Auto 0.2 % (0.2-1.2); Hematocrit 41.4 % (37.0-47.0); Hemoglobin 13.7 g/dL (12.0-15.0); Immature Granulocyte Absolute 0.08 K/mm3 (0.00-0.031); Immature Granulocyte Percent A 0.6 % (0-0.5); Lymphocytes Absolute Auto 2.99 K/mm3 (0.9-3.2); Lymphocytes Percent Auto 20.6 % (18.3-44.2); Mean Corpuscular HGB Conc 33.1 g/dl (32-36); Mean Corpuscular Volume 87.7 fl (80-100); Mean Platelet Volume 9.2 fl (7.4-10.4); Monocytes Absolute Auto 1.4 K/mm3 (0.1-0.6); Monocytes Percent Auto 9.3 % (2.6-8.5); Neutrophils Absolute Auto 10.1 K/mm3 (1.3-6.7); Neutrophils Percent Auto 69.3 % (45.5-73.1); Platelet Count Result 360 k/mm3 (150-375); Red Blood Count 4.72 M/mm3 (4.2-5.4); Red Cell Distribution Width 14.1 % (11.5-14.5); White Blood Count 14.5 K/mm3 (4.5-10.0)
[2020-10-07] MEDS: LEVOTHYROXINE SODIUM 125 MCG TABLET PO (06:12)
[2020-10-07 06:17] LABS: Anion Gap 12 mmol/L (8-16); Blood Urea Nitrogen 13 mg/dL (7-17); CRP 3.2 mg/dL (<1.0); Calcium 9.3 mg/dL (8.4-10.2); Carbon Dioxide 27 mmol/L (22-30); Chloride 98 mmol/L (98-107); Estimated CRCL calculation 67 ml/min; Estimated Glomerular Filt Rate > 60; Glucose 214 mg/dL (65-110); Potassium 3.9 mmol/L (3.4-5.0); Sodium 137 mmol/L (137-145)
--- NOTE | 2020-10-07 08:28 | ECG_ITS ---
Measurements Intervals [place] Rate: 86 P: 53 MO: 248 QRS: 3 QRSD: 90 T: 79 QT: 380 QTc: 456 Interpretive Statements SINUS RHYTHM WITH FIRST DEGREE AV BLOCK TRANSIENT ECTOPIC ATRIAL RHYTHM BORDERLINE ST-T WAVE ABNORMALITY- HIGH LATERAL LEADS ABNORMAL ECG Electronically Signed On 10-07-2020 9:09:00 CDT by Osei Avila D.O.
[2020-10-07 08:53] LABS: Glucose Point of Care 208 mg/dl (65-105)
[2020-10-07] MEDS: hydroCHLOROthiazide 25 MG TABLET BY MOUTH (08:58)
[2020-10-07] MEDS: FOLIC ACID 1 MG TABLET PO (08:58)
[2020-10-07] MEDS: DULoxetine HCL 30 MG CAPSULE.DR PO (08:58)
[2020-10-07] MEDS: MUPIROCIN 2% OINT 22 GM TUBE 1 APPLIC EACH NARE (08:59)
[2020-10-07] MEDS: amLODIPine BESYLATE 5 MG TABLET PO (08:59)
[2020-10-07] MEDS: LOSARTAN POTASSIUM 50 MG TABLET PO (08:59)
[2020-10-07] MEDS: INSULIN ASPART (*BKC) 100 UNITS/ML SUB-Q ×2 (09:10→11:41)
[2020-10-07] MEDS: INSULIN ASPART (*BKC) 100 UNITS/ML 30 UNITS SUB-Q ×3 (09:10→17:04)
[2020-10-07 12:10] LABS: Glucose Point of Care 241 mg/dl (65-105)
--- NOTE | 2020-10-07 13:52 | PM.DS ---
DS: Admitting Diagnosis Admitting Diagnosis Cellulitis DS: Discharge Diagnosis Discharge Diagnosis (1) Furuncle of forehead: Code(s): L02.02 - Furuncle of face Status: Acute Assessment and Plan: Presented with raised tender region of left sided forehead with associated erythema, edema, and purulent drainage. Reports started as a pimple and has had many episodes similar to this. 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 She was started on IV vancomycin improve max in. Unable to obtain wound culture as the area was crusted over without drainage. She remained afebrile. She will continue with p.o. doxycycline as an outpatient and has follow-up scheduled with her PCP in 2 days for further monitoring. Started on mupirocin of the nares for history of MRSA colonization which will be continued to complete 5 days. (2) Cellulitis: Qualifiers: Site of cellulitis: face Qualified Code(s): L03.211 - Cellulitis of face Code(s): L03.90 - Cellulitis, unspecified Status: Acute Assessment and Plan: see above (3) Uncontrolled type 2 diabetes mellitus with hyperglycemia, with long-term current use of insulin: Code(s): E11.65 - Type 2 diabetes mellitus with hyperglycemia; Z79.4 - [facility] (current) use of insulin Status: Acute Assessment and Plan: A1c is 9.8. she appears to have significant insulin resistance requiring very high doses of insulin. She is established with endocrinology and should continue her home regimen of 80 units of Toujeo and 44-60 units of Humalog t.i.d. sliding scale (4) COPD (chronic obstructive pulmonary disease): Qualifiers: COPD type: unspecified COPD Qualified Code(s): J44.9 - Chronic obstructive pulmonary disease, unspecified Code(s): J44.9 - Chronic obstructive pulmonary disease, unspecified Status: Chronic Assessment and Plan: No acute issues. Continue Symbicort. Albuterol as needed (5) Rheumatoid arthritis: Code(s): M06.9 - Rheumatoid arthritis, unspecified Status: Acute Assessment and Plan: Follows with rheumatology; no issues at this time. She was At the tail end of a lengthy steroid taper which was discontinued 10/05 given infection. hold methotrexate given acute infection. Resume once okay with PCP or business dean. DS: Summary Hospital Course Hospital Course: Date of admission: 10/04/2020 Date of discharge: 10/07/2020 Rula Goldstein is a 75-year-old female with history of rheumatoid arthritis on immunosuppressive therapy, poorly controlled type 2 diabetes mellitus with insulin resistance, and COPD who presented to the emergency department on 10/04/2020 with complaints of swelling and redness to the left side of her face. Upon presentation to the emergency department, her vital signs were stable, she was afebrile, WBC 18.1, additional CBC unremarkable, electrolytes stable, glucose 248, CRP 1.9. She was admitted to the hospitalist service for further evaluation management. She was treated with IV antibiotics and had symptomatic improvement with reduction of swelling and edema. Of note, she did have mild bilateral facial swelling that was likely due to steroid use, and this will continue to be monitored by her PCP for improvement. She does have appointment with her PCP scheduled for 10/09/2020. Given her overall improvement, she was determined to no longer require inpatient care and was felt to be stable for discharge. We discussed worrisome signs and symptoms for which to return and she was educated on her medications. She was discharged in hemodynamically stable condition on 10/07/2020. Spoke with her PCP office to discuss details of hospitalization. Status at Discharge Functional status at discharge: independent ambulation Overall status at discharge: patient is progressing back to baseline Time Spent with Patient Time attestation: Total time spen
[2020-10-07 14:00] VITALS: BP 117/77; PULSE 95; RESP 18; TEMP 36.3; O2SAT 96
[2020-10-07 16:58] LABS: Glucose Point of Care 152 mg/dl (65-105)
== END 2020-10-07 18:15 | disposition home or self-care (01) | DRG 603 ==
LOC: ANHED 19:48 → ANH2MED 20:00
PROVIDERS: Physician Assistant; Admitting Provider Student in an Organized Health Care Education/Training Program; Emergency Provider Emergency Medicine; PCP Family Medicine; Visit Provider Internal Medicine
DX: L02.02 Furuncle of face (principal); L03.211 Cellulitis of face; E11.65 Type 2 diabetes mellitus with hyperglycemia; J44.9 Chronic obstructive pulmonary disease, unspecified; M06.9 Rheumatoid arthritis, unspecified; M25.551 Pain in right hip; M25.552 Pain in left hip; M17.0 Bilateral primary osteoarthritis of knee; Z79.4 Long term (current) use of insulin; Z79.82 Long term (current) use of aspirin; Z79.899 Other long term (current) drug therapy; Z87.891 Personal history of nicotine dependence
CPT/HCPCS: 36415; 80048; 80202; 82948; 85025; 85027; 85652; 86140; 93005; 94640; 96365; 96367; 99285; A9270; G0378; J0743; J1815; J3370; J7512

== ENCOUNTER 2020-11-09 11:13 | Emergency (ER) | payer MEDICARE, SELFPAY ==
[2020-11-09] VITALS (7 sets, daily range): BP systolic 124–157; BP diastolic 55–96; PULSE 90–113; RESP 20–26; TEMP 37; O2SAT 95–99
--- NOTE | ~2020-11-09 | XR_ITS ---
EXAMINATION: XR chest 2V EXAM DATE: 11/09/2020 11:29 INDICATION: COPD, shortness of breath for 1 week. TECHNIQUE: Frontal and lateral projections of the chest obtained and reviewed. Comparison is made to prior examination from 02/04/2020. FINDINGS: Left mastectomy, axillary surgical clips. The lungs are clear. There are no pleural effus ions. The cardiomediastinal silhouette is within normal limits. There is no pneumothorax suspected. The bones and soft tissues are unremarkable. IMPRESSION: No acute cardiopulmonary findings. Reviewed, dictated and finalized at location A.
--- NOTE | 2020-11-09 11:16 | ECG_ITS ---
Measurements Intervals [place] Rate: 96 P: 67 [place]: 246 QRS: 13 QRSD: 88 T: 75 QT: 343 QTc: 434 Interpretive Statements SINUS RHYTHM WITH SINUS ARRHYTHMIA WITH FIRST DEGREE AV BLOCK BORDERLINE ST-T WAVE ABNORMALITY- HIGH LATERAL LEADS BASELINE WANDER- V1-V2 ABNORMAL ECG Electronically Signed On 11-09-2020 11:28:24 CDT by Osei Avila D.O.
[2020-11-09 11:34] LABS: Basophils Percent Auto 0.1 % (0.2-1.2); Hemoglobin 13.3 g/dL (12.0-15.0); Immature Granulocyte Absolute 0.06 K/mm3 (0.00-0.031); Immature Granulocyte Percent A 0.6 % (0-0.5); Lymphocytes Absolute Auto 1.87 K/mm3 (0.9-3.2); Lymphocytes Percent Auto 18.8 % (18.3-44.2); Mean Corpuscular HGB Conc 32.4 g/dl (32-36); Mean Corpuscular Hemoglobin 29.7 pg (26-34); Mean Corpuscular Volume 91.5 fl (80-100); Mean Platelet Volume 9.4 fl (7.4-10.4); Monocytes Absolute Auto 1.2 K/mm3 (0.1-0.6); Monocytes Percent Auto 11.8 % (2.6-8.5); Neutrophils Absolute Auto 6.8 K/mm3 (1.3-6.7); Neutrophils Percent Auto 68.7 % (45.5-73.1); Platelet Count Result 309 k/mm3 (150-375); Red Blood Count 4.48 M/mm3 (4.2-5.4)
[2020-11-09 11:46] LABS: Anion Gap 9 mmol/L (8-16); Blood Urea Nitrogen 11 mg/dL (7-17); Carbon Dioxide 31 mmol/L (22-30); Chloride 94 mmol/L (98-107); Estimated CRCL calculation 67 ml/min; Estimated Glomerular Filt Rate > 60; Glucose 234 mg/dL (65-110); Potassium 3.7 mmol/L (3.4-5.0); Sodium 134 mmol/L (137-145)
[2020-11-09 16:34] LABS: NT Pro B Type Natriuretic Pept 58 pg/mL (5-100); Troponin I < 0.012 ng/mL (0.000-0.034)
--- NOTE | 2020-11-09 17:19 | ED.SOB ---
HPI - SOB/Dyspnea General Chief Complaint: Shortness of Breath/Dyspnea Stated Complaint: diff breathing/copd Time Seen by Provider: 11/09/20 14:39 Source: patient and family Mode of arrival: ambulatory Limitations: no limitations History of Present Illness HPI Narrative: 75-year-old female History of COPD and rheumatoid arthritis She recently was hospitalized with a facial cellulitis and because of that was taken off of steroids She is also recently been started on methotrexate She now notes about a week history of shortness of breath particularly in the evenings and with exertion She does not usually cough but she does cough after she uses her breathing treatments She does not have a fever No chest pain and no history of heart issues, only hypertension MD elicited complaint: shortness of breath Related Data Home Medications Medication Instructions Recorded Confirmed aspirin 81 mg tablet,delayed 81 mg PO HS 01/10/19 10/04/20 release omeprazole 20 mg capsule,delayed 20 mg PO HS 01/10/19 10/04/20 release budesonide-formoterol [Symbicort] 2 puff INHALATION BID 11/17/19 10/04/20 metoprolol succinate 25 mg PO HS 11/17/19 10/04/20 albuterol sulfate [Ventolin HFA] 90 mcg INHALATION PRN PRN 12/04/19 10/04/20 melatonin 3 mg PO HS PRN 12/04/19 10/04/20 rosuvastatin 10 mg PO HS 12/04/19 10/04/20 folic acid 1 mg tablet 1 mg PO DAILY 05/07/20 10/04/20 methotrexate sodium 5 mg tablet 2.5 mg PO WEEKLY 09/30/20 10/05/20 duloxetine 30 mg PO DAILY 10/04/20 10/04/20 duloxetine 60 mg PO HS 10/04/20 10/04/20 Xiidra 1 drp EACH EYE BID 10/05/20 10/05/20 cholecalciferol (vitamin D3) 50 mcg PO QNOON 10/05/20 10/05/20 [Vitamin D3] cyanocobalamin (vitamin B-12) 5,000 mcg PO QNOON 10/05/20 10/05/20 valacyclovir See Rx Instructions .ROUTE 10/05/20 10/05/20 .COMPLEX PRN Allergies Allergy/AdvReac Type Severity Reaction Status Date / Time shellfish derived Allergy Severe HIVES/RASH Verified 11/09/20 13:56 shrimp Allergy Severe RASH/HIVES Verified 11/09/20 13:56 celecoxib Allergy Intermediate RASH/HIVES Verified 11/09/20 13:56 fish oil Allergy Intermediate RASH/HIVES Verified 11/09/20 13:56 metformin Allergy Unknown Chest Pain Verified 11/09/20 13:56 Contrast Media Allergy Intermediate NAUSEA, Uncoded 11/09/20 13:56 HOT FLASHES, DYSPNEA Review of Systems Review of Systems: All systems reviewed & are unremarkable except as noted in HPI and below Constitutional: Constitutional: Reports no additional constitutional complaints, Denies chills, Denies fever(s) and Denies headache(s) Eyes: Eyes: Reports no additional eye complaints and Denies change in vision ENT: Denies headache(s) and Denies sore throat Cardiovascular: Cardiovascular: Denies chest pain and Denies dyspnea Respiratory: Respiratory: Denies chest congestion, Reports cough, Reports dyspnea and Denies wheezing Gastrointestinal: Gastrointestinal: Denies abdominal pain, Denies diarrhea and Denies vomiting Genitourinary: Genitourinary: Denies urinary frequency and Denies dysuria Musculoskeletal: Musculoskeletal: Denies deformity, Denies arthralgias, Denies joint swelling and Denies numbness Integumentary/Breasts: Skin/Breast: Denies rash and Denies wounds Neurologic: Denies headache(s), Denies focal weakness and Denies numbness Psychiatric: Psychiatric: Reports no additional psychiatric complaints Endocrine: Endocrine: Reports no additional endocrine complaints Hematologic/Lymphatic: Hematologic/Lymphatic: Reports no additional hematologic/lymphatic complaints Allergic/Immunologic: Allergic/Immunologic: Reports no additional allergic/immunologic complaints [facility] Past Medical History Medical History Bilateral hip pain Bilateral knee pain COPD (chronic obstructive pulmonary disease) Degenerative joint disease of knee Internal nasal lesion Joint pain Lumbar spine pain Positive GEETHA (anti
== END 2020-11-09 18:02 | disposition home or self-care (01) ==
PROVIDERS: Emergency Medicine; Emergency Provider Emergency Medicine; PCP Family Medicine
DX: J44.9 Chronic obstructive pulmonary disease, unspecified (principal); M17.10 Unilateral primary osteoarthritis, unspecified knee; Z79.82 Long term (current) use of aspirin; Z87.891 Personal history of nicotine dependence; R94.31 Abnormal electrocardiogram [ECG] [EKG]
CPT/HCPCS: 36415; 71046; 80048; 83880; 84484; 85025; 93005; 99284

== ENCOUNTER 2021-01-12 06:24 | Inpatient (IN) | payer MEDICARE, SELFPAY ==
[2021-01-12] VITALS (33 sets, daily range): BP systolic 104–172; BP diastolic 57–97; PULSE 84–155; RESP 16–31; TEMP 36.2–37.2; O2SAT 89–99; BMI 33.6
--- NOTE | ~2021-01-12 | CT_ITS ---
EXAMINATION: CT cervical spine wo con DATE: 01/12/2021 07:56 INDICATION: Neck pain TECHNIQUE: Computed tomography (CT) of the cervical spine was performed without intravenous contrast. The dose-length product (DLP) was 465.05 mGy-cm. Automated exposure control and iterative reconstruc tion technique were employed. COMPARISON: None FINDINGS: Bone alignment is normal. There is no fracture. There is severe loss of intervertebral disc space height at C4-5, C5-6, and C6-7. The odontoid is intact. Small degenerative osteophytes project from the anterior endplates of multiple vertebral bodies. There is moderate multilevel uncovertebral joint osteoarthritis. The prevertebral soft tissues are normal. IMPRESSION: 1. Severe cervical spondylosis without acute findings. Reviewed, dictated and finalized at location A. P CUTTER
--- NOTE | ~2021-01-12 | XR_ITS ---
EXAMINATION: XR chest 2V EXAM DATE: 01/15/2021 13:03 INDICATION: Cough. TECHNIQUE: Frontal and lateral projections of the chest obtained and reviewed. Comparison is made to prior examination from 01/12/2021. FINDINGS: The lungs are hyperinflated which can be seen with chronic obstructive pulmonary disease ( a clinical diagnosis of functional impairment), but is not diagnostic of it. No confluent consolidati on, pneumothorax or pleural effusion suspected. Cardiomediastinal silhouette is normal. There are mil d bony degenerative changes. Left axillary surgical clips. IMPRESSION: Hyperinflation. Reviewed, dictated and finalized at location B. CTOR OF PHOTOGRAPHY IMPRESSION: Hyperinflation.
--- NOTE | ~2021-01-12 | XR_ITS ---
EXAMINATION: XR chest 1V INDICATION: Weakness, history of COPD TECHNIQUE: Portable AP chest at 0724 hours COMPARISON: 11/09/2020 FINDINGS: The lungs are free of acute opacities. There is no pleural effusion or pneumothorax. The ca rdiomediastinal silhouette is upper limits of normal. There are changes of left mastectomy and left a xillary lymph node dissection. IMPRESSION: 1. No acute cardiopulmonary abnormality. Reviewed, dictated and finalized at location A. UNDERWRITER
--- NOTE | ~2021-01-12 | CT_ITS ---
EXAMINATION: CT brain wo con INDICATION: Weakness COMPARISON: 06/30/2010 TECHNIQUE: Standard unenhanced head CT. The dose-length product (DLP) was 605.33 mGy-cm. The mA was a djusted according to patient size. Iterative reconstruction technique was employed. FINDINGS: There is no acute intraparenchymal hemorrhage. No evidence of mass lesion. No evidence of a cute infarction. There is mild periventricular and subcortical hypodensity probably related to small vessel ischemic disease. There is mild prominence of the sulci and ventricles related to cerebral atr ophy. Intracranial calcified cerebral atherosclerosis is noted. There are no extra-axial collections. There is no mass effect or midline shift. Changes in the globes are likely from ocular lens surgery. There is moderate mucosal thickening of the maxillary and ethmoidal sinuses. IMPRESSION: 1. No acute intracranial abnormality. 2. Age related findings. Reviewed, dictated and finalized at location A. IFIED MEDICAL CODER
--- NOTE | 2021-01-12 06:45 | ECG_ITS ---
Measurements Intervals [place] Rate: 143 P: [place]: 0 QRS: 6 QRSD: 86 T: 94 QT: 291 QTc: 450 Interpretive Statements ATRIAL FLUTTER/TACHYCARDIA WITH RAPID VENTRICULAR RESPONSE NONSPECIFIC ST & T-WAVE ABNORMALITY- INF/LAT LEADS ABNORMAL ECG Electronically Signed On 01-12-2021 7:17:50 [employer] by Osei Avila D.O.
[2021-01-12 07:01] LABS: Glucose Point of Care 284 mg/dl (65-105)
[2021-01-12 07:11] LABS: Add Urine Microscopic? YES; Appearance Urine Clear (Clear); Bilirubin Urine Negative (Negative); Blood Urine Negative (Negative); Color Urine Yellow (Yellow); Glucose Urine UA 3+ mg/dL (Negative); Ketones Urine 1+ mg/dL (Negative); Leukocyte Esterase Ur Negative LEU/UL (Negative); Mucus Urine Rare /lpf; Nitrate Urine Negative (Negative); Protein Urine 1+ mg/dL (Negative); RBC Urine 0-2 /hpf (0-2); Specific Grav Ur 1.027 (1.001-1.035); WBC Urine 0-3 /hpf
[2021-01-12] MEDS: ADENOSINE IV SOLN 6 MG/2 ML VIAL 18 MG (07:14)
[2021-01-12 07:31] LABS: Basophils Percent Auto 0.2 % (0.2-1.2); Hematocrit 35.5 % (37.0-47.0); Immature Granulocyte Absolute 0.09 K/mm3 (0.00-0.031); Immature Granulocyte Percent A 0.6 % (0-0.5); Mean Corpuscular HGB Conc 33.8 g/dl (32-36); Mean Corpuscular Hemoglobin 31.4 pg (26-34); Mean Corpuscular Volume 92.9 fl (80-100); Monocytes Absolute Auto 1.5 K/mm3 (0.1-0.6); Monocytes Percent Auto 10.5 % (2.6-8.5); Neutrophils Absolute Auto 11.3 K/mm3 (1.3-6.7); Neutrophils Percent Auto 77.7 % (45.5-73.1); Platelet Count Result 267 k/mm3 (150-375); Red Blood Count 3.82 M/mm3 (4.2-5.4); Red Cell Distribution Width 14.2 % (11.5-14.5); White Blood Count 14.5 K/mm3 (4.5-10.0)
[2021-01-12] MEDS: dilTIAZem HCl INJ 25 MG/5 ML VIAL 10 MG IV PUSH (07:37)
[2021-01-12 07:40] LABS: Alanine Aminotransferase 19 U/L (4-35); Alkaline Phosphatase 74 U/L (38-126); Anion Gap 9 mmol/L (8-16); Aspartate Amino Transferase 29 U/L (14-36); Bilirubin,Total 0.7 mg/dL (0.2-1.3); Blood Urea Nitrogen 15 mg/dL (7-17); Calcium 6.7 mg/dL (8.4-10.2); Carbon Dioxide 24 mmol/L (22-30); Chloride 102 mmol/L (98-107); Estimated CRCL calculation 81 ml/min; Estimated Glomerular Filt Rate > 60; Glucose 242 mg/dL (65-110); Potassium 2.9 mmol/L (3.4-5.0); Sodium 135 mmol/L (137-145)
[2021-01-12 07:44] LABS: INR 1.2; Prothrombin Time 15.2 Seconds (11.1-14.7)
[2021-01-12 07:45] LABS: Partial Thromboplastin Time 33.4 SECONDS (22.3-36.8)
--- NOTE | 2021-01-12 07:51 | ED.WEAKNESS ---
HPI - Weakness General Chief complaint: Weakness Stated complaint: weakness, falling Time Seen by Provider: 01/12/21 07:02 Source: patient, family and RN notes reviewed History of Present Illness HPI Narrative: Patient presents with weakness. She reports she has felt weak over the past week and is having frequent falls. Reports she does not fall down but her legs will give out and she will ease herself to the ground or to a chair because she feels weak. They are notable to identify any clear triggering events for these episodes of weakness. Today her symptoms were worse and she says she cannot walk because she feels too weak so they came to the ER for evaluation. She denies focal areas of discomfort such as chest pain, shortness of breath. She denies any nausea vomiting or diaphoresis. She denies any lightheadedness or dizziness Related Data Home Medications Medication Instructions Recorded Confirmed aspirin 81 mg tablet,delayed 81 mg PO HS 01/10/19 01/12/21 release omeprazole 20 mg capsule,delayed 20 mg PO HS 01/10/19 01/12/21 release budesonide-formoterol [Symbicort] 2 puff INHALATION BID 11/17/19 01/12/21 metoprolol succinate 25 mg PO HS 11/17/19 01/12/21 albuterol sulfate [Ventolin HFA] 90 mcg INHALATION PRN PRN 12/04/19 01/12/21 melatonin 3 mg PO HS PRN 12/04/19 01/12/21 rosuvastatin 10 mg PO HS 12/04/19 01/12/21 folic acid 1 mg tablet 1 mg PO DAILY 05/07/20 01/12/21 methotrexate sodium 5 mg tablet 2.5 mg PO WEEKLY 09/30/20 01/12/21 duloxetine 30 mg PO DAILY 10/04/20 01/12/21 duloxetine 60 mg PO HS 10/04/20 01/12/21 Xiidra 1 drp EACH EYE BID 10/05/20 01/12/21 cholecalciferol (vitamin D3) 50 mcg PO QNOON 10/05/20 01/12/21 [Vitamin D3] cyanocobalamin (vitamin B-12) 5,000 mcg PO QNOON 10/05/20 01/12/21 valacyclovir See Rx Instructions .ROUTE 10/05/20 01/12/21 .COMPLEX PRN cetirizine [Allergy Relief 10 mg PO DAILY 01/12/21 01/12/21 (cetirizine)] hydrochlorothiazide 25 mg PO DAILY 01/12/21 01/12/21 prednisone 5 mg PO DAILY 01/12/21 01/12/21 Allergies Allergy/AdvReac Type Severity Reaction Status Date / Time shellfish derived Allergy Severe HIVES/RASH Verified 11/09/20 13:56 shrimp Allergy Severe RASH/HIVES Verified 11/09/20 13:56 celecoxib Allergy Intermediate RASH/HIVES Verified 11/09/20 13:56 fish oil Allergy Intermediate RASH/HIVES Verified 11/09/20 13:56 metformin Allergy Unknown Chest Pain Verified 11/09/20 13:56 Contrast Media Allergy Intermediate NAUSEA, Uncoded 11/09/20 13:56 HOT FLASHES, DYSPNEA Review of Systems Review of Systems: CONSTITUTIONAL: Denies fever, chills, or sweats. EYES: Denies visual changes, redness, or discharge. ENT: Denies rhinorrhea, congestion, sore throat, or otalgia. CARDIOVASCULAR: Denies chest pain, palpitations, or edema. RESPIRATORY: Denies cough or dyspnea. GASTROINTESTINAL: Denies abdominal pain, nausea, vomiting, or diarrhea. GENITOURINARY: Denies dysuria or hematuria. SKIN: Denies rash or itching. MUSCULOSKELETAL: Denies back pain, joint pain, or myalgia. NEUROLOGIC: Denies headache, numbness, dizziness, or focal weakness. PSYCHIATRIC: Denies anxiety or depression. All systems reviewed & are unremarkable except as noted in HPI and below PMFSH Past Medical History Medical History (Updated 01/12/21 @ 13:52 by Anna Bee PA-C) Cancer of left breast Chronic obstructive pulmonary disease Colon polyps Degenerative joint disease of knee Depression with anxiety Diabetic peripheral neuropathy Diverticulitis Hypertension Hypothyroidism Insulin dependent type 2 diabetes mellitus Obstructive sleep apnea Osteopenia Rheumatoid arthritis Vitiligo Surgical History Surgical History (Updated 01/12/21 @ 13:52 by Anna Bee PA-C) History of appendectomy History of bilateral cataract extraction History of cardiac catheterization Unremarkable per patient report. History of cholecystectomy History of colonoscopy with polypectomy History
[2021-01-12 08:01] LABS: Troponin I 0.053 ng/mL (0.000-0.034)
[2021-01-12] MEDS: ALBUTEROL SULFATE NEB 2.5 MG/0.5 ML INH 5 MG INHALATION (08:32)
[2021-01-12] MEDS: IPRATROPIUM BR 0.02% INH SOLN 0.5 MG/2.5 ML VIAL INHALATION (08:32)
[2021-01-12] MEDS: methylPREDNISolone SOD SUCC 125 MG VIAL IV PUSH (08:39)
--- NOTE | 2021-01-12 10:34 | PC.NURSE ---
Report received from ADOLPH Escalante with the ED department at 1034. All questions answered and plan of care reviewed. patient to go to IMU room 201.
--- NOTE | 2021-01-12 11:45 | ADMGEN ---
This patient, Rula Goldstein, was admitted to IMU Room 201-01. Patient/family oriented to hospital policies and general routines including ID bracelet, bed and alarms, visiting hours, pain management, procedures, bathroom and other care routines, personal items, smoking policy, room service/diet, and visiting hours. Information on how to activate the Rapid Response Team has been discussed. Patient/Family are encouraged to report perceived risks to care and to ask questions if they do not understand what they are told or what they should do.
--- NOTE | 2021-01-12 13:00 | PM.IMHP ---
H&P: HPI History of Present Illness Date/Time: 01/12/21 13:00 Chief Complaint: Weakness and falling. Narrative: This is a 75-year-old female with insulin-dependent type 2 diabetes mellitus, hypertension, hypothyroidism, rheumatoid arthritis, COPD, GERD, and several other comorbidities who presented to the emergency department earlier today from home for evaluation of weakness with several falls. Over the past week or so she has had several falls where she slides to the ground which she attributes to generalized weakness in her legs. She admits to having balance issues for quite some time however she cannot provide me any specifics with regards to that she specifically denies suffering from vertigo. I asked if it was perhaps related to neuropathy from her diabetes though she denies that as well. Luckily she has not sustained any injuries in these falls but she has difficulties getting herself up and typically she and her will have to call a friend or family member to help her up as he is unable to help her. Additionally she reports increasing dyspnea over the past week or so and she felt it would be best to come in for evaluation today. On arrival to the emergency department she was found to be in atrial flutter with rapid ventricular response for which she was started on a Cardizem drip. At the time my evaluation she has since converted to a normal sinus rhythm. With further questioning she does mention having intermittent palpitations over the years however she had no symptoms with this fluttering today and specifically denies palpitations and feelings of racing heart. She also denies fever, chills, sweats, focal weakness, paresthesias, facial droop, dysarthria, chest pain, pleuritic pain, resting shortness of breath, nausea, vomiting, and sweats. No dysuria or diarrhea. She has not had any head trauma or loss of consciousness. Review of Systems Review of Systems: 12 systems were reviewed. She denies blurry vision, polydipsia and polyuria. Her glucose has been running high since admission to the floor and is now that she received Solu-Medrol in the emergency department. She is significantly insulin resistant for which she takes U3 100 and up to 50+ units of Humalog with meals. Except as document, all other systems were reviewed and are negative. REPLACED BY [facility] Past Medical History Medical History (Updated 01/12/21 @ 21:00 by Anna Bee PA-C) Cancer of left breast Chronic obstructive pulmonary disease Colon polyps Degenerative joint disease of knee Depression with anxiety Diabetic peripheral neuropathy Diverticulitis Hypertension Hypothyroidism Insulin dependent type 2 diabetes mellitus Obstructive sleep apnea Intolerant to CPAP. Osteopenia Rheumatoid arthritis Vitiligo Surgical History Surgical History (Updated 01/12/21 @ 13:52 by Anna Bee PA-C) History of appendectomy History of bilateral cataract extraction History of cardiac catheterization Unremarkable per patient report. History of cholecystectomy History of colonoscopy with polypectomy History of fusion of cervical spine History of hysterectomy History of incision and drainage (05/2018) Right cheek abscess. History of left mastectomy History of thyroidectomy Family History Family History Father Diabetes mellitus Hypertension Cerebrovascular accident Family history of malignant melanoma Mother Diabetes mellitus Hypertension Family history of lung cancer Sibling Family history of malignant melanoma Other Family history of cardiovascular disease Family history of malignant neoplasm Malignant neoplasm of prostate Social History Social History (Updated 01/12/21 @ 21:06 by Anna Bee PA-C) Social History: Surrogate decision maker: Smith Goldstein, . Code status: Full code. Smoking packs per day: 3 Smoking cigarettes per day: 60.0 Years smoked: 39 Smoking pa
--- NOTE | 2021-01-12 13:48 | ECG_ITS ---
Measurements Intervals [place] Rate: 96 P: 74 WA: 251 QRS: 24 QRSD: 88 T: 80 QT: 366 QTc: 464 Interpretive Statements SINUS RHYTHM WITH FIRST DEGREE AV BLOCK MISPLACED LEAD V4 BORDERLINE ST-T WAVE ABNORMALITY- LAT/HIGH LAT LEADS BASELINE ARTIFACT- I, II, AVR, AVL, AVF ABNORMAL ECG Electronically Signed On 01-13-2021 8:43:26 [employer] by Osei Avila D.O.
--- NOTE | 2021-01-12 13:50 | PM.CNCAR ---
Assessment and Plan Additional Plan 75-year-old lady with history of rheumatoid arthritis, COPD, diabetes and hypertension who presents with generalized weakness she was found to be in a flutter with RVR in the emergency room she was not specifically aware of her tachyarrhythmia. I would recommend the following: Discontinue aspirin Start Xarelto 20 mg daily Start flecainide 100 mg q.12 hours Obtain echocardiogram tomorrow Irineo Poole MD [facility] History of Present Illness History of Present Illness Consult date/time: 01/12/21 13:50 Reason For Visit: Aflutter Narrative: This is a 75-year-old woman who I am seeing at the request of the hospitalist because of atrial flutter. The patient reports that she has no history of significant cardiac problems and came into the hospital this morning at the request of her because of extreme weakness. She was suddenly this morning so weak that she could not even stand up. She did not have any other symptoms such as chest pain pressure or heaviness or dyspnea. She was not aware of the sense of tachycardia or palpitations. At times she says she does feel the sense of some rapid fluttering in her chest but she did not feel that this morning. She was brought to the emergency room and it was noticed that she was tachycardic. A 12 lead electrocardiogram was recorded demonstrating typical atrial flutter with 2-1 conduction and rapid ventricular response. Of course she was placed on intravenous diltiazem which did provide some heart rate control and she was admitted to the IMU. She has not been anticoagulated. She is currently in sinus rhythm with a heart rate of about 100 and appears to be essentially comfortable. The patient states that she has previously seen and actively sees Dr. Del Toro of our practice. She states that she underwent a catheterization about [address] matthews demonstrating mild plaquing in her coronary arteries and sees her in the office in regular follow-up for this reason. Her principal comorbidities include rheumatoid arthritis, hypertension, non insulin-dependent diabetes and dyslipidemia. She also has significant COPD due to a previous history of smoking. She quit smoking years ago but had previous accumulated that 90 pack years of smoking. Review of Systems Constitutional: Constitutional: Reports no additional constitutional complaints and Reports weakness Eyes: Eyes: Reports no additional eye complaints ENT: Reports system reviewed and no additional complaints, except as documented Cardiovascular: Cardiovascular: Reports no additional cardiovascular complaints Respiratory: Respiratory: Reports dyspnea on exertion Gastrointestinal: Gastrointestinal: Reports no additional gastrointestinal complaints Musculoskeletal: Musculoskeletal: Reports no additional musculoskeletal complaints Integumentary/Breasts: Skin/Breast: Reports system reviewed and no additional complaints, except as docu Neurologic: Reports system reviewed and no additional complaints, except as documented Endocrine: Endocrine: Reports no additional endocrine complaints Hematologic/Lymphatic: Hematologic/Lymphatic: Reports no additional hematologic/lymphatic complaints Allergic/Immunologic: Allergic/Immunologic: Reports no additional allergic/immunologic complaints [facility] Past Medical History Medical History (Updated 01/12/21 @ 13:52 by Anna Bee PA-C) Cancer of left breast Chronic obstructive pulmonary disease Colon polyps Degenerative joint disease of knee Depression with anxiety Diabetic peripheral neuropathy Diverticulitis Hypertension Hypothyroidism Insulin dependent type 2 diabetes mellitus Obstructive sleep apnea Osteopenia Rheumatoid arthritis Vitiligo Surgical History Surgical History (Updated 01/12/21 @ 13:52 by Anna Bee PA-C) History of appendectomy History of bilateral cataract extraction History of cardiac catheterization Unremarkable
[2021-01-12 14:40] LABS: Hemoglobin A1C 10.3 % (<5.7); Magnesium 1.7 mg/dL (1.6-2.3)
[2021-01-12 15:03] LABS: Troponin I 0.066 ng/mL (0.000-0.034)
[2021-01-12 15:40] LABS: Thyroid Stimulating Hormone Reflex 0.148 uIU/mL (0.465-4.68)
[2021-01-12 16:06] LABS: Free T4 Free Thyroxine Reflex 1.39 ng/dL (0.78-2.19)
[2021-01-12] MEDS: CYANOCOBALAMIN 1,000 MCG TABLET 5000 MCG PO (17:35)
[2021-01-12] MEDS: RIVAROXABAN 20 MG TABLET PO (17:35)
[2021-01-12] MEDS: CHOLECALCIFEROL 1,000 UNITS TABLET 2000 UNITS PO (17:35)
[2021-01-12] MEDS: INSULIN ASPART (*BKC) 100 UNITS/ML 15 UNITS SUB-Q ×2 (18:34→21:36)
[2021-01-12] MEDS: METOPROLOL SUCCINATE EXT REL 25 MG TABCR PO (20:24)
[2021-01-12] MEDS: PANTOPRAZOLE 40 MG TABLET PO (20:24)
[2021-01-12] MEDS: FLECAINIDE ACETATE 100 MG TABLET PO (20:24)
[2021-01-12] MEDS: MONTELUKAST SODIUM 10 MG TABLET PO (20:24)
[2021-01-12] MEDS: DULoxetine HCL 60 MG CAPSULE.DR PO (20:25)
[2021-01-12] MEDS: ROSUVASTATIN 10 MG TABLET PO (20:25)
[2021-01-12] MEDS: ARTIFICIAL TEARS OPHTH SOLN 15 ML BOTTLE 1 DROP EACH EYE (20:27)
[2021-01-12 21:16] LABS: Glucose Point of Care 439 mg/dl (65-105)
[2021-01-12 21:16] LABS: Glucose Point of Care > 500 mg/dl (65-105)
[2021-01-12 21:51] LABS: Hemoglobin A1C 10.1 % (<5.7)
[2021-01-12 21:54] LABS: Anion Gap 16 mmol/L (8-16); Blood Urea Nitrogen 20 mg/dL (7-17); Calcium 8.3 mg/dL (8.4-10.2); Carbon Dioxide 24 mmol/L (22-30); Chloride 92 mmol/L (98-107); Estimated CRCL calculation 58 ml/min; Estimated Glomerular Filt Rate > 60; Glucose 518 mg/dL (65-110); Magnesium 1.8 mg/dL (1.6-2.3); Potassium 4.1 mmol/L (3.4-5.0); Sodium 132 mmol/L (137-145)
[2021-01-13] VITALS (14 sets, daily range): BP systolic 120–144; BP diastolic 51–59; PULSE 75–97; RESP 14–20; TEMP 36.3–36.8; O2SAT 92–99
[2021-01-13 00:12] LABS: Glucose Point of Care 321 mg/dl (65-105)
[2021-01-13 05:49] LABS: Hematocrit 37.8 % (37.0-47.0); Hemoglobin 12.7 g/dL (12.0-15.0); Mean Corpuscular HGB Conc 33.6 g/dl (32-36); Mean Corpuscular Hemoglobin 30.3 pg (26-34); Mean Corpuscular Volume 90.2 fl (80-100); Mean Platelet Volume 9.5 fl (7.4-10.4); Platelet Count Result 331 k/mm3 (150-375); Red Blood Count 4.19 M/mm3 (4.2-5.4); Red Cell Distribution Width 13.7 % (11.5-14.5); White Blood Count 13.4 K/mm3 (4.5-10.0)
[2021-01-13 06:01] LABS: Anion Gap 11 mmol/L (8-16); Blood Urea Nitrogen 22 mg/dL (7-17); Calcium 8.6 mg/dL (8.4-10.2); Carbon Dioxide 30 mmol/L (22-30); Chloride 96 mmol/L (98-107); Estimated CRCL calculation 67 ml/min; Estimated Glomerular Filt Rate > 60; Glucose 282 mg/dL (65-110); Magnesium 2.3 mg/dL (1.6-2.3); Potassium 3.9 mmol/L (3.4-5.0); Sodium 137 mmol/L (137-145)
[2021-01-13] MEDS: LEVOTHYROXINE SODIUM 125 MCG TABLET PO (06:23)
[2021-01-13 06:59] LABS: Total Triiodothyronine (T3) 0.87 NG/ML (0.97-1.69)
[2021-01-13 08:14] LABS: Glucose Point of Care 230 mg/dl (65-105)
[2021-01-13] MEDS: LOSARTAN POTASSIUM 50 MG TABLET PO (08:32)
[2021-01-13] MEDS: DULoxetine HCL 30 MG CAPSULE.DR PO (08:32)
[2021-01-13] MEDS: LORATADINE 10 MG TABLET PO (08:32)
[2021-01-13] MEDS: FOLIC ACID 1 MG TABLET PO (08:33)
[2021-01-13] MEDS: hydroCHLOROthiazide 25 MG TABLET PO (08:33)
[2021-01-13] MEDS: ARTIFICIAL TEARS OPHTH SOLN 15 ML BOTTLE 1 DROP EACH EYE (08:33)
[2021-01-13] MEDS: FLECAINIDE ACETATE 100 MG TABLET PO (08:33)
[2021-01-13] MEDS: predniSONE 5 MG TABLET PO (08:33)
[2021-01-13] MEDS: amLODIPine BESYLATE 5 MG TABLET PO (08:33)
[2021-01-13] MEDS: UMECLIDINIUM BROMIDE 62.5 MCG ELLIPTA 1 PUFF INHALATION (08:34)
[2021-01-13] MEDS: INSULIN ASPART (*BKC) 100 UNITS/ML SUB-Q ×2 (08:35→12:12)
--- NOTE | 2021-01-13 09:23 | PM.IMPN ---
Progress Note: A&P Assessment and Plan (1) Atrial flutter with rapid ventricular response: Code(s): I48.92 - Unspecified atrial flutter Status: Acute Assessment and Plan: Followed by Dr. Claire Hughes 0.053-->0.066 Cardiology following, recommendations appreciated ASA d/c'd S/p Cardizem gtt Continue Flecainide and Xarelto Plan for ECHO Fall precautions Tele monitoring (2) Hypokalemia: Code(s): E87.6 - Hypokalemia Status: Acute Assessment and Plan: Resolved S/p Replacement Monitor (3) Elevated troponin: Code(s): R77.8 - Other specified abnormalities of plasma proteins Status: Acute Assessment and Plan: Followed by Dr. Claire Hughes 0.053-->0.066 Last CC 2018 (4) Insulin dependent type 2 diabetes mellitus: Code(s): E11.9 - Type 2 diabetes mellitus without complications; Z79.4 - correction (current) use of insulin Status: Acute (5) Generalized weakness: Code(s): R53.1 - Weakness Status: Acute Assessment and Plan: Fall precautions PT/OT (6) Multiple falls: Code(s): R29.6 - Repeated falls Status: Acute Assessment and Plan: Unclear etiology ? peripheral neuropathy Brain CT showed no acute abnormalities Suspect 2/2s related to deconditioning and neuropathy Fall precautions PT/OT (7) Diabetic peripheral neuropathy: Code(s): E11.42 - Type 2 diabetes mellitus with diabetic polyneuropathy Status: Acute Assessment and Plan: Uncontrolled BG elevated Hgb A1c 10.1 Toujeo will be transitioned to Lantu SSI, accuchecks Monitor (8) Hypothyroidism: Code(s): E03.9 - Hypothyroidism, unspecified Status: Acute Assessment and Plan: TSH slightly decreased Will decrease levothyroxine to 112 mcg Repeat o/p May need to adjust dose (9) Rheumatoid arthritis: Qualifiers: Rheumatoid arthritis location: multiple sites Rheumatoid factor presence: unspecified presence Qualified Code(s): M06.9 - Rheumatoid arthritis, unspecified Code(s): M06.9 - Rheumatoid arthritis, unspecified Status: Acute Assessment and Plan: Continue low dose steroids (10) Obstructive sleep apnea: Code(s): G47.33 - Obstructive sleep apnea (adult) (pediatric) Status: Acute (11) Hypertension: Qualifiers: Hypertension type: essential hypertension Qualified Code(s): I10 - Essential (primary) hypertension Code(s): I10 - Essential (primary) hypertension Status: Chronic (12) Chronic obstructive pulmonary disease: Code(s): J44.9 - Chronic obstructive pulmonary disease, unspecified Status: Acute Assessment and Plan: No home O2 +wheezes S/p IV steroids in ED Contiue home ihalers Additional Plan DVT Ppx: on Xarelto Subjective Date/time seen: 01/13/21 09:23 Interval history: Pt seen this a.m.; labs, vs, diagnostic reports, consult note reviewed; no acute events overnight; pt up with PT this a.m.; denies any CP, SOB, or palpatations Review of Systems Review of Systems: All systems reviewed & are unremarkable except as noted in HPI and below Exam Const: General: no acute distress, alert and awake Orientation/consciousness: patient oriented x3 HENMT: Head: normocephalic and atraumatic Ears: hearing grossly normal bilaterally and external ears normal Face and sinus: face symmetric Mouth: Yes Normal oral and palatal mucosa present Eyes: EOM: EOMs intact bilaterally Neck: Neck: full ROM, trachea midline and no JVD Chest: Chest palpation & inspection: normal inspection of the chest Resp: Effort & Inspection: normal respiratory effort Auscultation: wheezes (slight) upper bilaterally and diminished lung sounds Cardio: Jugular venous distension: no JVD Rate: regular rate Rhythm: regular rhythm Heart sounds: S1 normal heart sound present and S2 normal heart sound present GI: Inspection: normal to inspecti
[2021-01-13] MEDS: FLUTICASONE/SALMETEROL 115-21 MCG INHALER 1 PUFF 2 PUFF INHALATION ×2 (09:35→20:15)
[2021-01-13] MEDS: INSULIN GLARGINE (*BKC) 100 UNITS/ML 80 UNITS SUB-Q (12:13)
[2021-01-13] MEDS: CHOLECALCIFEROL 1,000 UNITS TABLET 2000 UNITS PO (12:13)
[2021-01-13 12:18] LABS: Glucose Point of Care 391 mg/dl (65-105)
[2021-01-13] MEDS: CYANOCOBALAMIN 1,000 MCG TABLET 5000 MCG PO (15:58)
[2021-01-13 16:25] LABS: Glucose Point of Care 410 mg/dl (65-105)
--- NOTE | 2021-01-13 16:36 | PM.PNCARD ---
Progress Note: A&P Assessment and Plan (1) Atrial flutter with rapid ventricular response: Code(s): I48.92 - Unspecified atrial flutter Status: Acute Assessment and Plan: Presented with generalized weakness and was found to be in atrial flutter with RVR. She was initiated on flecainide yesterday as well as Xarelto for systemic a/c. She is now in sinus rhythm Continue flecainide 100mg p.o. q 12 Continue Xarelto 20mg daily Continue metoprolol succinate 25mg daily Echo has been ordered and is pending (2) Insulin dependent type 2 diabetes mellitus: Code(s): E11.9 - Type 2 diabetes mellitus without complications; Z79.4 - assisted (current) use of insulin Status: Acute Assessment and Plan: Not well controlled, hyperglycemic yesterday to >500. Management per primary service. (3) Hypertension: Qualifiers: Hypertension type: essential hypertension Qualified Code(s): I10 - Essential (primary) hypertension Code(s): I10 - Essential (primary) hypertension Status: Chronic Assessment and Plan: At goal Subjective Date/time seen: 01/13/21 16:36 Date of service 01/13/21: Feeling better today. She says her breathing has improved significantly. She is now in sinus rhythm on flecainide. Review of Systems Constitutional: Constitutional: Reports no additional constitutional complaints and Reports weakness Eyes: Eyes: Reports no additional eye complaints ENT: Reports system reviewed and no additional complaints, except as documented Cardiovascular: Cardiovascular: Reports no additional cardiovascular complaints and Reports dyspnea on exertion Respiratory: Respiratory: Reports dyspnea on exertion Gastrointestinal: Gastrointestinal: Reports no additional gastrointestinal complaints Musculoskeletal: Musculoskeletal: Reports no additional musculoskeletal complaints Integumentary/Breasts: Skin/Breast: Reports system reviewed and no additional complaints, except as docu Neurologic: Reports system reviewed and no additional complaints, except as documented and Reports weakness Endocrine: Endocrine: Reports no additional endocrine complaints Hematologic/Lymphatic: Hematologic/Lymphatic: Reports no additional hematologic/lymphatic complaints Allergic/Immunologic: Allergic/Immunologic: Reports no additional allergic/immunologic complaints Exam Const: General: comfortable and no acute distress HENMT: Head: normal to inspection Mouth: Yes moist mucous membranes Eyes: General: appearance normal, both eyes and all related structures Sclera: sclerae normal Pupils: Equal, round and reactive pupils present Neck: Neck: supple and no JVD Resp: Effort & Inspection: normal respiratory effort and Actively coughing productive Auscultation: rhonchi left lower Cardio: Rate: regular rate Rhythm: regular rhythm Heart sounds: no murmurs Bruits: no carotid bruits Peripheral pulses: Peripheral pulses 2+ throughout GI: GI Palp: Yes Soft to palpation Auscultation: normal bowel sounds Skin: General skin exam: normal color Neuro: General: patient oriented x3 Cranial nerves: Yes Equal, round and reactive pupils present Cognition (Neuro): normal cognition Extrem: General: normal to inspection Psych: Appearance: grossly normal Mental Status: mental status grossly normal Objective Data Vital Signs Vital Signs: Vital Signs - 24 hr 01/12/21 17:29 01/12/21 18:00 01/12/21 20:00 Temperature 36.2 C L 36.9 C Pulse Rate 107 H 101 H 101 H Respiratory Rate 22 H 18 Blood Pressure 172/75 H 141/81 H Pulse Oximetry 94 94 01/12/21 20:24 01/12/21 22:00 01/12/21 23:44 Temperature 36.2 C L Pulse Rate 109 H 84 88 Respiratory Rate 20 Blood Pressure 127/57 L Pulse Oximetry 99 01/13/21 00:00 01/13/21 02:00 01/13/21 04:00 Temperature 36.4 C L Pulse Rate 89 84 90 Respiratory Rate 20 Blood Pressure 128/58 L Pulse Oximetry 99 98 01/13/21 06
[2021-01-13] MEDS: RIVAROXABAN 20 MG TABLET PO (17:21)
[2021-01-13] MEDS: INSULIN ASPART (*BKC) 100 UNITS/ML 10 UNITS SUB-Q ×2 (17:21→21:28)
[2021-01-13] MEDS: INSULIN GLARGINE (*BKC) 100 UNITS/ML 30 UNITS SUB-Q (17:22)
[2021-01-13] MEDS: BENZONATATE 100 MG CAPSULE PO (17:40)
[2021-01-13 19:01] LABS: Glucose Point of Care > 500 mg/dl (65-105)
[2021-01-13] MEDS: INSULIN GLARGINE (*BKC) 100 UNITS/ML 40 UNITS SUB-Q (21:28)
[2021-01-13 21:42] LABS: Glucose Point of Care 343 mg/dl (65-105)
[2021-01-14] VITALS (15 sets, daily range): BP systolic 117–167; BP diastolic 52–62; PULSE 79–99; RESP 16–20; TEMP 36.5–36.6; O2SAT 94–96
--- NOTE | 2021-01-14 | ECHO_ITS ---
Patient Info Name: Rula Goldstein Age: 75 years : 1945 Gender: Female Ht: 62 in Wt: 182 lbs BSA: 1.94 m2 HR: 86 bpm BP: 117 / 52 mmHg Heart Rhythm: Sinus Rhythm Exam Date: 01/14/2021 11:01 AM Exam Location: [facility] Patient Status: Inpatient Admit Date: 01/13/2021 Staff Ordering Physician: Stefanie Velasco Tumbler Machine Operator Helper: Kin Clayton, JOSEPH, RT Attending Provider: Lc Altamirano MD Referring Physician: Krista CIFUENTES; Exam Type: CA echo doppler color flow Study Info Indications I49.8 - Other specified cardiac arrhythmias Complete two-dimensional, color flow and Doppler transthoracic echocardiogram is performed. Strain analysis performed. Summary 1. Complete two-dimensional, color flow and Doppler transthoracic echocardiogram is performed. 2. Strain analysis performed. 3. Left ventricular chamber dimension is normal. 4. Left ventricular systolic function is normal, estimated at 65-70%. 5. There is mildly increased left ventricular wall thickness. 6. Left ventricular septal wall motion is normal. 7. The left ventricular diastolic function is abnormal. 8. Global longitudinal strain is abnormal at -15 %. 9. Left atrial chamber dimension is mildly enlarged. 10. There is mild mitral valve regurgitation. 11. There is mild tricuspid valve regurgitation. Left Ventricle Left ventricular chamber dimension is normal. Left ventricular systolic function is normal, estimated at 65-70%. There is mildly increased left ventricular wall thickness. Left ventricular septal wall motion is normal. The left ventricular diastolic function is abnormal. Global longitudinal strain is abnormal at -15 %. Right Ventricle Right ventricular chamber dimension is normal. Right ventricular systolic function is normal. Left Atria Left atrial chamber dimension is mildly enlarged. Right Atria Right atrial chamber dimension is normal. Atrial Septum Intact interatrial septum visualized by color flow imaging. Aortic Valve The aortic valve is trileaflet. There is no aortic valve stenosis. There is trace aortic valve regurgitation. There is mild aortic valve calcification. Pulmonic Valve The pulmonic valve is normal. There is no pulmonic valve stenosis. There is trace pulmonic regurgitation. Mitral Valve The mitral valve has normal leaflets. There is no mitral valve stenosis. There is mild mitral valve regurgitation. Tricuspid Valve The tricuspid valve leaflets are normal. There is no significant tricuspid valve stenosis. There is mild tricuspid valve regurgitation. Pericardium/Pleural The pericardium appears normal. There is trivial pericardial effusion. Inferior Vena Cava Dilated inferior vena cava with <50% collapse upon inspiration consistent with elevated right atrial pressure, 10 mmHg. Aorta The aortic root size at the sinus of Valsalva is mildly dilated. Left Ventricular Outflow Tract Name Value Normal LVOT 2D LVOT Diameter 2.0 cm LVOT Doppler LVOT Peak Gradient 3 mmHg LVOT Mean Gradient 2 mmHg LVOT
[2021-01-14] MEDS: LEVOTHYROXINE SODIUM 112 MCG TABLET PO (05:47)
[2021-01-14 07:33] LABS: Hematocrit 37.1 % (37.0-47.0); Hemoglobin 12.7 g/dL (12.0-15.0); Mean Corpuscular HGB Conc 34.2 g/dl (32-36); Mean Corpuscular Hemoglobin 30.2 pg (26-34); Mean Corpuscular Volume 88.1 fl (80-100); Mean Platelet Volume 9.3 fl (7.4-10.4); Platelet Count Result 321 k/mm3 (150-375); Red Blood Count 4.21 M/mm3 (4.2-5.4); Red Cell Distribution Width 13.7 % (11.5-14.5); White Blood Count 9.7 K/mm3 (4.5-10.0)
[2021-01-14 07:49] LABS: Anion Gap 8 mmol/L (8-16); Blood Urea Nitrogen 16 mg/dL (7-17); Carbon Dioxide 33 mmol/L (22-30); Chloride 98 mmol/L (98-107); Estimated CRCL calculation 79 ml/min; Estimated Glomerular Filt Rate > 60; Glucose 139 mg/dL (65-110); Potassium 2.8 mmol/L (3.4-5.0); Sodium 139 mmol/L (137-145)
[2021-01-14 08:08] LABS: Glucose Point of Care 138 mg/dl (65-105)
[2021-01-14] MEDS: FLECAINIDE ACETATE 100 MG TABLET PO ×2 (09:01→21:07)
[2021-01-14] MEDS: LOSARTAN POTASSIUM 50 MG TABLET PO (09:01)
[2021-01-14] MEDS: FOLIC ACID 1 MG TABLET PO (09:02)
[2021-01-14] MEDS: BENZONATATE 100 MG CAPSULE PO (09:02)
[2021-01-14] MEDS: hydroCHLOROthiazide 25 MG TABLET PO (09:03)
[2021-01-14] MEDS: LORATADINE 10 MG TABLET PO (09:03)
[2021-01-14] MEDS: DULoxetine HCL 30 MG CAPSULE.DR PO (09:03)
[2021-01-14] MEDS: amLODIPine BESYLATE 5 MG TABLET PO (09:04)
[2021-01-14] MEDS: predniSONE 5 MG TABLET PO (09:04)
[2021-01-14] MEDS: ARTIFICIAL TEARS OPHTH SOLN 15 ML BOTTLE 1 DROP EACH EYE ×2 (09:05→21:09)
[2021-01-14] MEDS: UMECLIDINIUM BROMIDE 62.5 MCG ELLIPTA 1 PUFF INHALATION (09:47)
[2021-01-14] MEDS: FLUTICASONE/SALMETEROL 115-21 MCG INHALER 1 PUFF 2 PUFF INHALATION (09:47)
--- NOTE | 2021-01-14 10:13 | PM.PNCARD ---
Progress Note: A&P Assessment and Plan (1) Atrial flutter with rapid ventricular response: Code(s): I48.92 - Unspecified atrial flutter Status: Acute Assessment and Plan: Presented with generalized weakness and was found to be in atrial flutter with RVR. She was initiated on flecainide yesterday as well as Xarelto for systemic a/c. She is now in sinus rhythm Continue flecainide 100mg p.o. q 12 Continue Xarelto 20mg daily Continue metoprolol succinate 25mg daily Echo has been ordered and is pending (2) Insulin dependent type 2 diabetes mellitus: Code(s): E11.9 - Type 2 diabetes mellitus without complications; Z79.4 - custodial (current) use of insulin Status: Acute Assessment and Plan: Not well controlled, hyperglycemic yesterday to >500. Management per primary service. (3) Hypertension: Qualifiers: Hypertension type: essential hypertension Qualified Code(s): I10 - Essential (primary) hypertension Code(s): I10 - Essential (primary) hypertension Status: Chronic Assessment and Plan: At goal (4) Hypokalemia: Code(s): E87.6 - Hypokalemia Status: Acute Assessment and Plan: K+ 2.8 this morning. This has been repleted with IV and p.o. supplementation. Subjective Date/time seen: 01/14/21 10:13 Interval history: Cardiology follow up for atrial flutter Date of service 01/13/21: Feeling better today. She says her breathing has improved significantly. She is now in sinus rhythm on flecainide. Date of service 01/14/21: Complaining of cough today but overall continues to feel better. Remains in sinus rhythm. No palpitations, shortness of breath. She does complain of some pain on her L chest mastectomy site that she says has never really gone away and is tender to palpation. Review of Systems Constitutional: Constitutional: Reports no additional constitutional complaints and Reports weakness Eyes: Eyes: Reports no additional eye complaints ENT: Reports system reviewed and no additional complaints, except as documented Cardiovascular: Cardiovascular: Reports no additional cardiovascular complaints and Reports dyspnea on exertion Respiratory: Respiratory: Reports dyspnea on exertion Gastrointestinal: Gastrointestinal: Reports no additional gastrointestinal complaints Musculoskeletal: Musculoskeletal: Reports no additional musculoskeletal complaints Integumentary/Breasts: Skin/Breast: Reports system reviewed and no additional complaints, except as docu Neurologic: Reports system reviewed and no additional complaints, except as documented and Reports weakness Endocrine: Endocrine: Reports no additional endocrine complaints Hematologic/Lymphatic: Hematologic/Lymphatic: Reports no additional hematologic/lymphatic complaints Allergic/Immunologic: Allergic/Immunologic: Reports no additional allergic/immunologic complaints Exam Const: General: comfortable and no acute distress Orientation/consciousness: patient oriented x3 Other: Obese lady sitting on the edge of the bed. Alert and oriented. Pleasant and cooperative. HENMT: Head: normal to inspection Mouth: Yes moist mucous membranes Eyes: General: appearance normal, both eyes and all related structures Sclera: sclerae normal Pupils: Equal, round and reactive pupils present Neck: Neck: supple and no JVD Other: Normal carotid upstrokes bilateral Resp: Effort & Inspection: normal respiratory effort and Actively coughing productive Auscultation: wheezes expiratory wheezes and scattered wheezes Other: L chest wall mastectomy site incision tender to palpation Cardio: Rate: regular rate Rhythm: regular rhythm Heart sounds: no murmurs Bruits: no carotid bruits Peripheral pulses: Peripheral pulses 2+ throughout Other: S1-S2 are diminished in intensity GI: Auscultation: normal bowel sounds Skin: General skin exam: normal color Neuro: General: patient oriented x3 Cr
--- NOTE | 2021-01-14 10:24 | PM.IMPN ---
Progress Note: A&P Assessment and Plan (1) Atrial flutter with rapid ventricular response: Code(s): I48.92 - Unspecified atrial flutter Status: Acute Assessment and Plan: Followed by Dr. Claire Hughes 0.053-->0.066 Cardiology following, recommendations appreciated ASA d/c'd S/p Cardizem gtt Continue Flecainide and Xarelto ECHO results pending Fall precautions Tele monitoring (2) Hypokalemia: Code(s): E87.6 - Hypokalemia Status: Acute Assessment and Plan: 2.8 today 40 meq IVPB KCL, 40 meq KCL oral Monitor (3) Elevated troponin: Code(s): R77.8 - Other specified abnormalities of plasma proteins Status: Acute Assessment and Plan: Followed by Dr. Claire Hughes 0.053-->0.066 Last CC 2019 ECHO pending (4) Insulin dependent type 2 diabetes mellitus: Code(s): E11.9 - Type 2 diabetes mellitus without complications; Z79.4 - longterm (current) use of insulin Status: Acute Assessment and Plan: Uncontrolled BG elevated Hgb A1c 10.1 [place] will be transitioned to Lantu SSI, accuchecks Monitor (5) Generalized weakness: Code(s): R53.1 - Weakness Status: Acute Assessment and Plan: Fall precautions PT/OT (6) Multiple falls: Code(s): R29.6 - Repeated falls Status: Acute Assessment and Plan: Unclear etiology ? peripheral neuropathy Brain CT showed no acute abnormalities Suspect 2/2s related to deconditioning and neuropathy Fall precautions PT/OT (7) Diabetic peripheral neuropathy: Code(s): E11.42 - Type 2 diabetes mellitus with diabetic polyneuropathy Status: Acute Assessment and Plan: Supportive care (8) Hypothyroidism: Code(s): E03.9 - Hypothyroidism, unspecified Status: Acute Assessment and Plan: TSH slightly decreased Will decrease levothyroxine to 112 mcg Repeat o/p May need to adjust dose (9) Rheumatoid arthritis: Qualifiers: Rheumatoid arthritis location: multiple sites Rheumatoid factor presence: unspecified presence Qualified Code(s): M06.9 - Rheumatoid arthritis, unspecified Code(s): M06.9 - Rheumatoid arthritis, unspecified Status: Acute Assessment and Plan: Continue low dose steroids (10) Obstructive sleep apnea: Code(s): G47.33 - Obstructive sleep apnea (adult) (pediatric) Status: Acute (11) Hypertension: Qualifiers: Hypertension type: essential hypertension Qualified Code(s): I10 - Essential (primary) hypertension Code(s): I10 - Essential (primary) hypertension Status: Chronic (12) Chronic obstructive pulmonary disease: Code(s): J44.9 - Chronic obstructive pulmonary disease, unspecified Status: Acute Assessment and Plan: + cough, +wheezes S/p IV steroids in ED CXR unremarkable Continue home inhalers Will add steroid taper, nebs Additional Plan DVT Ppx: on Xarelto Subjective Date/time seen: 01/14/21 10:24 Interval history: 01/13 Pt seen this a.m.; labs, vs, diagnostic reports, consult note reviewed; no acute events overnight; pt up with PT this a.m.; denies any CP, SOB, or palpitations 01/14 Pt seen this a.m.; complains of cough;denies any CP, SOB, or palpitations; K 2.8 Review of Systems Review of Systems: All systems reviewed & are unremarkable except as noted in HPI and below Exam Const: General: no acute distress, alert and awake Orientation/consciousness: patient oriented x3 HENMT: Head: normocephalic and atraumatic Ears: hearing grossly normal bilaterally and external ears normal Face and sinus: face symmetric Mouth: Yes Normal oral and palatal mucosa present Eyes: EOM: EOMs intact bilaterally Neck: Neck: full ROM, trachea midline and no JVD Resp: Effort & Inspection: normal respiratory effort and Actively coughing Auscultation: wheezes (slight) upper bilaterally and diminished lung sounds Cardio: Jugular treva
[2021-01-14] MEDS: POTASSIUM CHLORIDE 20 MEQ TABLET 40 MEQ PO (11:34)
[2021-01-14 11:47] LABS: Glucose Point of Care 292 mg/dl (65-105)
[2021-01-14] MEDS: CYANOCOBALAMIN 1,000 MCG TABLET 5000 MCG PO (12:31)
[2021-01-14] MEDS: CHOLECALCIFEROL 1,000 UNITS TABLET 2000 UNITS PO (12:31)
[2021-01-14] MEDS: INSULIN ASPART (*BKC) 100 UNITS/ML SUB-Q ×2 (12:32→17:33)
[2021-01-14] MEDS: INSULIN GLARGINE (*BKC) 100 UNITS/ML 80 UNITS SUB-Q (12:32)
[2021-01-14] MEDS: predniSONE 10 MG TABLET 40 MG PO (13:04)
[2021-01-14 16:53] LABS: Glucose Point of Care 345 mg/dl (65-105)
[2021-01-14] MEDS: RIVAROXABAN 20 MG TABLET PO (17:33)
[2021-01-14] MEDS: IPRATROPIUM BR 0.02% INH SOLN 0.5 MG/2.5 ML VIAL INHALATION (20:47)
[2021-01-14] MEDS: ALBUTEROL SULFATE NEB 2.5 MG/0.5 ML INH 5 MG INHALATION (20:47)
[2021-01-14] MEDS: DULoxetine HCL 60 MG CAPSULE.DR PO (21:06)
[2021-01-14] MEDS: ROSUVASTATIN 10 MG TABLET PO (21:09)
[2021-01-14] MEDS: MONTELUKAST SODIUM 10 MG TABLET PO (21:09)
[2021-01-14] MEDS: PANTOPRAZOLE 40 MG TABLET PO (21:09)
[2021-01-14] MEDS: INSULIN ASPART (*BKC) 100 UNITS/ML 12 UNITS SUB-Q (22:02)
[2021-01-14 22:46] LABS: Glucose Point of Care 482 mg/dl (65-105)
[2021-01-15] VITALS (16 sets, daily range): BP systolic 133–143; BP diastolic 58–61; PULSE 84–108; RESP 18–20; TEMP 36.4–36.7; O2SAT 92–97
[2021-01-15] MEDS: IPRATROPIUM BR 0.02% INH SOLN 0.5 MG/2.5 ML VIAL INHALATION ×4 (02:20→20:18)
--- NOTE | 2021-01-15 03:27 | PCRCNOTE ---
therapist had another pt desat and was not able to make it in time to give treatment
[2021-01-15] MEDS: METOPROLOL SUCCINATE EXT REL 25 MG TABCR PO ×2 (04:38→20:35)
[2021-01-15] MEDS: LEVOTHYROXINE SODIUM 112 MCG TABLET PO (05:56)
[2021-01-15 06:26] LABS: Hematocrit 39.7 % (37.0-47.0); Hemoglobin 13.5 g/dL (12.0-15.0); Mean Corpuscular Hemoglobin 30.2 pg (26-34); Mean Corpuscular Volume 88.8 fl (80-100); Mean Platelet Volume 9.3 fl (7.4-10.4); Platelet Count Result 413 k/mm3 (150-375); Red Blood Count 4.47 M/mm3 (4.2-5.4); Red Cell Distribution Width 14.1 % (11.5-14.5); White Blood Count 14.8 K/mm3 (4.5-10.0)
[2021-01-15 06:42] LABS: Anion Gap 10 mmol/L (8-16); Blood Urea Nitrogen 14 mg/dL (7-17); Calcium 9.4 mg/dL (8.4-10.2); Carbon Dioxide 30 mmol/L (22-30); Chloride 96 mmol/L (98-107); Estimated CRCL calculation 67 ml/min; Estimated Glomerular Filt Rate > 60; Glucose 240 mg/dL (65-110); Potassium 3.9 mmol/L (3.4-5.0); Sodium 136 mmol/L (137-145)
[2021-01-15 08:03] LABS: Glucose Point of Care 218 mg/dl (65-105)
[2021-01-15] MEDS: predniSONE 10 MG TABLET 40 MG PO (08:36)
[2021-01-15] MEDS: ARTIFICIAL TEARS OPHTH SOLN 15 ML BOTTLE 1 DROP EACH EYE ×2 (08:37→20:35)
[2021-01-15] MEDS: amLODIPine BESYLATE 5 MG TABLET PO (08:37)
[2021-01-15] MEDS: hydroCHLOROthiazide 25 MG TABLET PO (08:38)
[2021-01-15] MEDS: LORATADINE 10 MG TABLET PO (08:38)
[2021-01-15] MEDS: FOLIC ACID 1 MG TABLET PO (08:38)
[2021-01-15] MEDS: FLECAINIDE ACETATE 100 MG TABLET PO ×2 (08:38→20:34)
[2021-01-15] MEDS: DULoxetine HCL 30 MG CAPSULE.DR PO (08:38)
[2021-01-15] MEDS: LOSARTAN POTASSIUM 50 MG TABLET PO (08:39)
[2021-01-15] MEDS: INSULIN ASPART (*BKC) 100 UNITS/ML SUB-Q ×3 (08:49→18:11)
[2021-01-15] MEDS: ALBUTEROL SULFATE NEB 2.5 MG/0.5 ML INH 5 MG INHALATION ×2 (09:18→14:32)
[2021-01-15] MEDS: UMECLIDINIUM BROMIDE 62.5 MCG ELLIPTA 1 PUFF INHALATION (09:18)
[2021-01-15] MEDS: FLUTICASONE/SALMETEROL 115-21 MCG INHALER 1 PUFF 2 PUFF INHALATION ×2 (09:18→20:00)
--- NOTE | 2021-01-15 10:21 | PM.PNCARD ---
Progress Note: A&P Assessment and Plan (1) Atrial flutter with rapid ventricular response: Code(s): I48.92 - Unspecified atrial flutter Status: Acute Assessment and Plan: Presented with generalized weakness and was found to be in atrial flutter with RVR. She was initiated on flecainide yesterday as well as Xarelto for systemic a/c. She is now in sinus rhythm Continue flecainide 100mg p.o. q 12 Continue Xarelto 20mg daily Continue metoprolol succinate 25mg daily Check an EKG to evaluate QTC QRS complex given flecainide use. If the wheeziness/cough worsens, consider stopping the metoprolol as possibly metoprolol is causing some reactive airway issues given her baseline COPD (2) Insulin dependent type 2 diabetes mellitus: Code(s): E11.9 - Type 2 diabetes mellitus without complications; Z79.4 - group home (current) use of insulin Status: Acute Assessment and Plan: Not well controlled, hyperglycemic yesterday to >500. Management per primary service. (3) Hypertension: Qualifiers: Hypertension type: essential hypertension Qualified Code(s): I10 - Essential (primary) hypertension Code(s): I10 - Essential (primary) hypertension Status: Chronic Assessment and Plan: At goal (4) Hypokalemia: Code(s): E87.6 - Hypokalemia Status: Acute Assessment and Plan: Normalized Subjective Date/time seen: 01/15/21 10:21 Interval history: Cardiology follow up for atrial flutter Date of service 01/13/21: Feeling better today. She says her breathing has improved significantly. She is now in sinus rhythm on flecainide. Date of service 01/14/21: Complaining of cough today but overall continues to feel better. Remains in sinus rhythm. No palpitations, shortness of breath. She does complain of some pain on her L chest mastectomy site that she says has never really gone away and is tender to palpation. Date of service 01/15/2021: Still with significant cough. No chest pain though or shortness of breath. Review of Systems Constitutional: Constitutional: Reports no additional constitutional complaints and Reports weakness Eyes: Eyes: Reports no additional eye complaints ENT: Reports system reviewed and no additional complaints, except as documented Cardiovascular: Cardiovascular: Reports no additional cardiovascular complaints and Reports dyspnea on exertion Respiratory: Respiratory: Reports dyspnea on exertion Gastrointestinal: Gastrointestinal: Reports no additional gastrointestinal complaints Musculoskeletal: Musculoskeletal: Reports no additional musculoskeletal complaints Integumentary/Breasts: Skin/Breast: Reports system reviewed and no additional complaints, except as docu Neurologic: Reports system reviewed and no additional complaints, except as documented and Reports weakness Endocrine: Endocrine: Reports no additional endocrine complaints Hematologic/Lymphatic: Hematologic/Lymphatic: Reports no additional hematologic/lymphatic complaints Allergic/Immunologic: Allergic/Immunologic: Reports no additional allergic/immunologic complaints Exam Const: General: comfortable and no acute distress Orientation/consciousness: patient oriented x3 Other: Obese lady sitting on the edge of the bed. Alert and oriented. Pleasant and cooperative. HENMT: Head: normal to inspection Mouth: Yes moist mucous membranes Eyes: General: appearance normal, both eyes and all related structures Sclera: sclerae normal Pupils: Equal, round and reactive pupils present Neck: Neck: supple and no JVD Other: Normal carotid upstrokes bilateral Resp: Effort & Inspection: normal respiratory effort and Actively coughing productive Auscultation: wheezes expiratory wheezes and scattered wheezes Other: L chest wall mastectomy site incision tender to palpation Cardio: Rate: regular rate Rhythm: regular rhythm Heart sounds: no murmurs Bruits: no carotid bruits P
[2021-01-15 11:32] LABS: Glucose Point of Care 275 mg/dl (65-105)
[2021-01-15] MEDS: INSULIN GLARGINE (*BKC) 100 UNITS/ML 80 UNITS SUB-Q (11:46)
[2021-01-15] MEDS: CYANOCOBALAMIN 1,000 MCG TABLET 5000 MCG PO (11:52)
[2021-01-15] MEDS: CHOLECALCIFEROL 1,000 UNITS TABLET 2000 UNITS PO (11:53)
[2021-01-15] MEDS: BENZONATATE 100 MG CAPSULE PO (13:56)
--- NOTE | 2021-01-15 14:52 | PC.NURSE ---
On 01/15/21, the student, Yandy Guerrero, provided care and completed [facility] documentation on this patient. I have reviewed the student's documentation and agree with the findings.
--- NOTE | 2021-01-15 16:52 | PM.IMPN ---
Progress Note: A&P Assessment and Plan (1) Atrial flutter with rapid ventricular response: Code(s): I48.92 - Unspecified atrial flutter Status: Acute Assessment and Plan: Patient presents with weakness and found to have atrial flutter with RVR. [id number] 5. She was started on flecainide as well as Xarelto for stroke prophylaxis. She has converted to normal sinus rhythm. Also remains on metoprolol. Cardiology following. Echocardiogram showing EF of 65% with diastolic dysfunction. Elevated troponins noted felt related to the RVR. TSH low at 0.15. Synthroid dose has been decreased. Change neb treatment. (2) Hypokalemia: Code(s): E87.6 - Hypokalemia Status: Acute Assessment and Plan: Potassium 2.9 on admission that was corrected. Potassium dropped to 2.8 yesterday and replaced again. Potassium normal now. Follow. Repeat Mag level tomorrow. (3) Elevated troponin: Code(s): R77.8 - Other specified abnormalities of plasma proteins Status: Acute Assessment and Plan: Trop climbed to 0.066 felt related to the Aflutter with RVR. No wall motion abnormalities noted by echocardiogram. [place] troponin elevation related to nonischemic myocardial injury. (4) Insulin dependent type 2 diabetes mellitus: Code(s): E11.9 - Type 2 diabetes mellitus without complications; Z79.4 - rim buster (current) use of insulin Status: Acute Assessment and Plan: A1c 10.1. The patient's blood glucose was reviewed on 01/15 Glucose remains poorly controlled. Continue AccuCheks covering with sliding scale. Hypoglycemia protocol available as needed. Continue current medications. Add mealtime insulin. Decrease Prednisone. (5) Generalized weakness: Code(s): R53.1 - Weakness Status: Acute Assessment and Plan: Related to above. Continue fall precautions. Continue PT/OT (6) Multiple falls: Code(s): R29.6 - Repeated falls Status: Acute Assessment and Plan: Unclear etiology. Possibly related to peripheral neuropathy. Brain CT showing no acute abnormalities. Doing well with PT/OT. (7) Hypothyroidism: Code(s): E03.9 - Hypothyroidism, unspecified Status: Acute Assessment and Plan: TSH slightly decreased. Levothyroxine decreased to 112 mcg. Repeat as outpatietn. (8) Rheumatoid arthritis: Qualifiers: Rheumatoid arthritis location: multiple sites Rheumatoid factor presence: unspecified presence Qualified Code(s): M06.9 - Rheumatoid arthritis, unspecified Code(s): M06.9 - Rheumatoid arthritis, unspecified Status: Acute Assessment and Plan: Stable. Currently on Prednisone 5mg and MTX. Continue steroids but decrease dose. (9) Obstructive sleep apnea: Code(s): G47.33 - Obstructive sleep apnea (adult) (pediatric) Status: Acute Assessment and Plan: Patient is intolerant to CPAP. (10) Hypertension: Qualifiers: Hypertension type: essential hypertension Qualified Code(s): I10 - Essential (primary) hypertension Code(s): I10 - Essential (primary) hypertension Status: Chronic Assessment and Plan: Patient's blood pressure was reviewed on 01/15 Blood pressure remains well controlled. Will continue current medications. (11) Chronic obstructive pulmonary disease: Code(s): J44.9 - Chronic obstructive pulmonary disease, unspecified Status: Acute Assessment and Plan: Patient with persistent cough possibly related to her COPD. Repeat chest x-ray showing hyperinflation. Currently on steroids and nebulizer treatments. Remains on room air. Attempt to wean steroids and nebulizer treatments. Subjective Date/time seen: 01/15/21 16:52 Interval history: 75yo female with DM, RA, COPD and HTN here for weakness and falls and found to be in AFlutter. Assuming care. Chart reviewed. Patient denies any nausea
[2021-01-15 17:10] LABS: Glucose Point of Care 347 mg/dl (65-105)
[2021-01-15] MEDS: RIVAROXABAN 20 MG TABLET PO (18:11)
[2021-01-15] MEDS: MONTELUKAST SODIUM 10 MG TABLET PO (20:34)
[2021-01-15] MEDS: DULoxetine HCL 60 MG CAPSULE.DR PO (20:35)
[2021-01-15] MEDS: ROSUVASTATIN 10 MG TABLET PO (20:35)
[2021-01-15] MEDS: PANTOPRAZOLE 40 MG TABLET PO (20:35)
[2021-01-15 22:22] LABS: Glucose Point of Care 318 mg/dl (65-105)
[2021-01-16] VITALS (22 sets, daily range): BP systolic 112–135; BP diastolic 60–61; PULSE 58–102; RESP 18–20; TEMP 36.2–36.6; O2SAT 92–95
[2021-01-16] MEDS: LEVOTHYROXINE SODIUM 112 MCG TABLET PO (06:06)
[2021-01-16 06:55] LABS: Anion Gap 6 mmol/L (8-16); Blood Urea Nitrogen 16 mg/dL (7-17); Calcium 9.7 mg/dL (8.4-10.2); Carbon Dioxide 35 mmol/L (22-30); Chloride 99 mmol/L (98-107); Estimated CRCL calculation 51 ml/min; Estimated Glomerular Filt Rate > 60; Glucose 104 mg/dL (65-110); Magnesium 2.1 mg/dL (1.6-2.3); Potassium 3.9 mmol/L (3.4-5.0); Sodium 140 mmol/L (137-145)
[2021-01-16 08:19] LABS: Glucose Point of Care 135 mg/dl (65-105)
--- NOTE | 2021-01-16 09:24 | PM.PNCARD ---
Progress Note: A&P Assessment and Plan (1) Atrial flutter with rapid ventricular response: Code(s): I48.92 - Unspecified atrial flutter Status: Acute Assessment and Plan: Presented with generalized weakness and was found to be in atrial flutter with RVR. She was initiated on flecainide yesterday as well as Xarelto for systemic a/c. She is now in sinus rhythm Decrease flecainide to 75 mg p.o. q 12 (QTc 499 on EKG today) Continue Xarelto 20mg daily Continue metoprolol succinate 25mg daily Check an EKG tomorrow to evaluate QTC QRS complex given flecainide use. (2) Insulin dependent type 2 diabetes mellitus: Code(s): E11.9 - Type 2 diabetes mellitus without complications; Z79.4 - computer terminal operator (current) use of insulin Status: Acute Assessment and Plan: Not ideally controlled. Management per primary service. (3) Hypertension: Qualifiers: Hypertension type: essential hypertension Qualified Code(s): I10 - Essential (primary) hypertension Code(s): I10 - Essential (primary) hypertension Status: Chronic Assessment and Plan: At goal (4) Hypokalemia: Code(s): E87.6 - Hypokalemia Status: Acute Assessment and Plan: Normalized Subjective Date/time seen: 01/16/21 09:24 Interval history: Cardiology follow up for atrial flutter Date of service 01/13/21: Feeling better today. She says her breathing has improved significantly. She is now in sinus rhythm on flecainide. Date of service 01/14/21: Complaining of cough today but overall continues to feel better. Remains in sinus rhythm. No palpitations, shortness of breath. She does complain of some pain on her L chest mastectomy site that she says has never really gone away and is tender to palpation. Date of service 01/15/2021: Still with significant cough. No chest pain though or shortness of breath. Date of service 01/16/2021: Cough is persistent but she feels like her breathing is better. Complaining of pleuritic chest pain when she coughs. Review of Systems Constitutional: Constitutional: Reports no additional constitutional complaints and Reports weakness Eyes: Eyes: Reports no additional eye complaints ENT: Reports system reviewed and no additional complaints, except as documented Cardiovascular: Cardiovascular: Reports no additional cardiovascular complaints and Reports dyspnea on exertion Respiratory: Respiratory: Reports dyspnea on exertion Gastrointestinal: Gastrointestinal: Reports no additional gastrointestinal complaints Musculoskeletal: Musculoskeletal: Reports no additional musculoskeletal complaints Integumentary/Breasts: Skin/Breast: Reports system reviewed and no additional complaints, except as docu Neurologic: Reports system reviewed and no additional complaints, except as documented and Reports weakness Endocrine: Endocrine: Reports no additional endocrine complaints Hematologic/Lymphatic: Hematologic/Lymphatic: Reports no additional hematologic/lymphatic complaints Allergic/Immunologic: Allergic/Immunologic: Reports no additional allergic/immunologic complaints Exam Const: General: comfortable and no acute distress Orientation/consciousness: patient oriented x3 Other: Obese lady sitting on the edge of the bed. Alert and oriented. Pleasant and cooperative. HENMT: Head: normal to inspection Mouth: Yes moist mucous membranes Eyes: General: appearance normal, both eyes and all related structures Sclera: sclerae normal Pupils: Equal, round and reactive pupils present Neck: Neck: supple and no JVD Resp: Effort & Inspection: normal respiratory effort and Actively coughing productive Auscultation: wheezes expiratory wheezes and scattered wheezes Other: L chest wall mastectomy site incision tender to palpation Cardio: Rate: regular rate Rhythm: regular rhythm Heart sounds: no murmurs Bruits: no carotid bruits Peripheral pulses: Peripheral pulses 2
--- NOTE | 2021-01-16 09:27 | ECG_ITS ---
Measurements Intervals [place] Rate: 75 P: 66 NV: 274 QRS: 5 QRSD: 104 T: 59 QT: 447 QTc: 499 Interpretive Statements SINUS RHYTHM WITH SINUS ARRHYTHMIA WITH FIRST DEGREE AV BLOCK DELAYED PRECORDIAL R/S TRANSITION BORDERLINE ST-T WAVE ABNORMALITY- HIGH LATERAL LEADS PROLONGED QT INTERVAL BASELINE ARTIFACT- I, II, III, AVR, AVL, AVF ABNORMAL ECG Electronically Signed On 01-16-2021 10:21:26 OFFICE TECHNOLOGIST by Osei Avila D.O.
[2021-01-16] MEDS: IPRATROPIUM BR 0.02% INH SOLN 0.5 MG/2.5 ML VIAL INHALATION ×3 (10:00→21:44)
[2021-01-16] MEDS: FLUTICASONE/SALMETEROL 115-21 MCG INHALER 1 PUFF 2 PUFF INHALATION ×3 (10:00→21:44)
[2021-01-16] MEDS: INSULIN ASPART (*BKC) 100 UNITS/ML 7 UNITS SUB-Q ×3 (10:12→17:40)
[2021-01-16] MEDS: FLECAINIDE ACETATE 100 MG TABLET PO (10:13)
[2021-01-16] MEDS: CHOLECALCIFEROL 1,000 UNITS TABLET 2000 UNITS PO (10:13)
[2021-01-16] MEDS: CYANOCOBALAMIN 1,000 MCG TABLET 5000 MCG PO (10:13)
[2021-01-16] MEDS: predniSONE 10 MG TABLET 30 MG PO (10:15)
[2021-01-16] MEDS: FOLIC ACID 1 MG TABLET PO (10:15)
[2021-01-16] MEDS: amLODIPine BESYLATE 5 MG TABLET PO (10:16)
[2021-01-16] MEDS: DULoxetine HCL 30 MG CAPSULE.DR PO (10:16)
[2021-01-16] MEDS: LORATADINE 10 MG TABLET PO (10:16)
[2021-01-16] MEDS: hydroCHLOROthiazide 25 MG TABLET PO (10:17)
[2021-01-16] MEDS: LOSARTAN POTASSIUM 50 MG TABLET PO (10:17)
[2021-01-16] MEDS: ARTIFICIAL TEARS OPHTH SOLN 15 ML BOTTLE 1 DROP EACH EYE ×2 (10:21→21:03)
[2021-01-16 12:18] LABS: Glucose Point of Care 306 mg/dl (65-105)
[2021-01-16] MEDS: INSULIN GLARGINE (*BKC) 100 UNITS/ML 80 UNITS SUB-Q (13:05)
[2021-01-16] MEDS: INSULIN ASPART (*BKC) 100 UNITS/ML SUB-Q ×2 (13:51→17:40)
--- NOTE | 2021-01-16 14:49 | PM.IMPN ---
Progress Note: A&P Assessment and Plan (1) Atrial flutter with rapid ventricular response: Code(s): I48.92 - Unspecified atrial flutter Status: Acute Assessment and Plan: Patient presents with weakness and found to have atrial flutter with RVR. [id number] 5. She was started on flecainide as well as Xarelto for stroke prophylaxis. She has converted to normal sinus rhythm. Also remains on metoprolol. Cardiology following. Echo showing EF of 65% with diastolic dysfunction. Elevated troponins noted felt related to the RVR. TSH low at 0.15. Synthroid dose has been decreased. EKG showing QTc at 499. Flecainide dose has been decreased to 75mg Q12hr. (2) Elevated troponin: Code(s): R77.8 - Other specified abnormalities of plasma proteins Status: Acute Assessment and Plan: Trop climbed to 0.066 felt related to the Aflutter with RVR. No wall motion abnormalities noted by echocardiogram. [place] troponin elevation related to nonischemic myocardial injury. (3) Hypokalemia: Code(s): E87.6 - Hypokalemia Status: Acute Assessment and Plan: Potassium 2.9 on admission that was corrected. Potassium dropped to 2.8 again and was replaced again. Potassium normal now; Mag 2.1. Follow. (4) Chronic obstructive pulmonary disease: Code(s): J44.9 - Chronic obstructive pulmonary disease, unspecified Status: Acute Assessment and Plan: Patient with persistent cough possibly related to her COPD. Repeat chest x-ray showing hyperinflation. Currently on steroids and nebulizer treatments. Remains on room air. Cough better. Will follow. (5) Insulin dependent type 2 diabetes mellitus: Code(s): E11.9 - Type 2 diabetes mellitus without complications; Z79.4 - alf (current) use of insulin Status: Acute Assessment and Plan: A1c 10.1. The patient's blood glucose was reviewed on 01/16 Glucose better controlled this morning but higher later iin the day. Continue AccuCheks covering with sliding scale. Hypoglycemia protocol available as needed. Continue current medications. Advance mealtime insulin. Weaning Prednisone. (6) Hypertension: Qualifiers: Hypertension type: essential hypertension Qualified Code(s): I10 - Essential (primary) hypertension Code(s): I10 - Essential (primary) hypertension Status: Chronic Assessment and Plan: Patient's blood pressure was reviewed on 01/16 Blood pressure remains well controlled. Will continue current medications. (7) Generalized weakness: Code(s): R53.1 - Weakness Status: Acute Assessment and Plan: Related to above. Continue fall precautions. Continue PT/OT (8) Multiple falls: Code(s): R29.6 - Repeated falls Status: Acute Assessment and Plan: Unclear etiology. Brain CT showing no acute abnormalities. Possibly related to peripheral neuropathy. Doing well with PT/OT. (9) Hypothyroidism: Code(s): E03.9 - Hypothyroidism, unspecified Status: Acute Assessment and Plan: TSH slightly decreased. Levothyroxine decreased to 112 mcg. Repeat TSH as outpatient (10) Rheumatoid arthritis: Qualifiers: Rheumatoid arthritis location: multiple sites Rheumatoid factor presence: unspecified presence Qualified Code(s): M06.9 - Rheumatoid arthritis, unspecified Code(s): M06.9 - Rheumatoid arthritis, unspecified Status: Acute Assessment and Plan: Stable. Currently on Prednisone 5mg and MTX. Continue tapering steroid dosing. (11) Obstructive sleep apnea: Code(s): G47.33 - Obstructive sleep apnea (adult) (pediatric) Status: Acute Assessment and Plan: Patient is intolerant to CPAP. Subjective Date/time seen: 01/16/21 14:49 Interval history: 75yo female with DM, RA, COPD and HTN here for weakness and falls and found to be in AFlutter. Cough better. Malvin
[2021-01-16 16:31] LABS: Glucose Point of Care 279 mg/dl (65-105)
[2021-01-16] MEDS: RIVAROXABAN 20 MG TABLET PO (17:39)
[2021-01-16] MEDS: DULoxetine HCL 60 MG CAPSULE.DR PO (21:02)
[2021-01-16] MEDS: FLECAINIDE ACETATE 50 MG TABLET PO (21:02)
[2021-01-16] MEDS: METOPROLOL SUCCINATE EXT REL 25 MG TABCR PO (21:03)
[2021-01-16] MEDS: MONTELUKAST SODIUM 10 MG TABLET PO (21:04)
[2021-01-16] MEDS: ROSUVASTATIN 10 MG TABLET PO (21:04)
[2021-01-16] MEDS: PANTOPRAZOLE 40 MG TABLET PO (21:04)
[2021-01-17] VITALS (12 sets, daily range): BP systolic 121; BP diastolic 58; PULSE 63–86; RESP 18–20; TEMP 36.4; O2SAT 94–95
[2021-01-17] MEDS: IPRATROPIUM BR 0.02% INH SOLN 0.5 MG/2.5 ML VIAL INHALATION ×2 (03:06→09:08)
[2021-01-17] MEDS: LEVOTHYROXINE SODIUM 112 MCG TABLET PO (05:45)
[2021-01-17 06:39] LABS: Anion Gap 10 mmol/L (8-16); Blood Urea Nitrogen 16 mg/dL (7-17); Carbon Dioxide 30 mmol/L (22-30); Chloride 95 mmol/L (98-107); Estimated CRCL calculation 67 ml/min; Estimated Glomerular Filt Rate > 60; Glucose 157 mg/dL (65-110); Magnesium 1.8 mg/dL (1.6-2.3); Phosphorus 4.3 mg/dL (2.5-4.5); Potassium 3.4 mmol/L (3.4-5.0); Sodium 135 mmol/L (137-145)
--- NOTE | 2021-01-17 07:44 | ECG_ITS ---
Measurements Intervals [place] Rate: 71 P: 73 NE: 281 QRS: 26 QRSD: 97 T: 82 QT: 460 QTc: 502 Interpretive Statements SINUS RHYTHM WITH FIRST DEGREE AV BLOCK NONSPECIFIC T-WAVE ABNORMALITY- HIGH LATERAL LEADS BASELINE WANDER- I, II, AVR, AVL, AVF, V1-V4 ABNORMAL ECG Electronically Signed On 01-17-2021 10:30:15 INVESTIGATION OFFICER by Osei Avila D.O.
[2021-01-17 08:14] LABS: Glucose Point of Care 130 mg/dl (65-105)
[2021-01-17] MEDS: predniSONE 10 MG TABLET 30 MG PO (08:54)
[2021-01-17] MEDS: LORATADINE 10 MG TABLET PO (08:54)
[2021-01-17] MEDS: FLECAINIDE ACETATE 50 MG TABLET PO (08:54)
[2021-01-17] MEDS: FOLIC ACID 1 MG TABLET PO (08:54)
[2021-01-17] MEDS: hydroCHLOROthiazide 25 MG TABLET PO (08:55)
[2021-01-17] MEDS: LOSARTAN POTASSIUM 50 MG TABLET PO (08:55)
[2021-01-17] MEDS: DULoxetine HCL 30 MG CAPSULE.DR PO (08:55)
[2021-01-17] MEDS: POTASSIUM CHLORIDE 20 MEQ TABLET 40 MEQ PO (08:55)
[2021-01-17] MEDS: ARTIFICIAL TEARS OPHTH SOLN 15 ML BOTTLE 1 DROP EACH EYE (08:56)
[2021-01-17] MEDS: amLODIPine BESYLATE 5 MG TABLET PO (08:56)
[2021-01-17] MEDS: INSULIN ASPART (*BKC) 100 UNITS/ML 12 UNITS SUB-Q ×2 (08:56→13:19)
[2021-01-17] MEDS: FLUTICASONE/SALMETEROL 115-21 MCG INHALER 1 PUFF 2 PUFF INHALATION (09:08)
[2021-01-17] MEDS: INSULIN GLARGINE (*BKC) 100 UNITS/ML 80 UNITS SUB-Q (11:14)
--- NOTE | 2021-01-17 11:26 | PM.PNCARD ---
Progress Note: A&P Assessment and Plan (1) Atrial flutter with rapid ventricular response: Code(s): I48.92 - Unspecified atrial flutter Status: Acute Assessment and Plan: Presented with generalized weakness and was found to be in atrial flutter with RVR. She was initiated on flecainide yesterday as well as Xarelto for systemic a/c. She is now in sinus rhythm Discontinue flecainide (QTc 502 on EKG today after decrease in flecainide dose yesterday) Continue Xarelto 20mg daily Continue metoprolol succinate 25mg daily Check an EKG in the office in one week with office visit. (2) Insulin dependent type 2 diabetes mellitus: Code(s): E11.9 - Type 2 diabetes mellitus without complications; Z79.4 - penitentiary (current) use of insulin Status: Acute Assessment and Plan: Not ideally controlled. Management per primary service. (3) Hypertension: Qualifiers: Hypertension type: essential hypertension Qualified Code(s): I10 - Essential (primary) hypertension Code(s): I10 - Essential (primary) hypertension Status: Chronic Assessment and Plan: At goal (4) Hypokalemia: Code(s): E87.6 - Hypokalemia Status: Acute Assessment and Plan: Normalized Subjective Date/time seen: 01/17/21 11:26 Interval history: Cardiology follow up for atrial flutter Date of service 01/13/21: Feeling better today. She says her breathing has improved significantly. She is now in sinus rhythm on flecainide. Date of service 01/14/21: Complaining of cough today but overall continues to feel better. Remains in sinus rhythm. No palpitations, shortness of breath. She does complain of some pain on her L chest mastectomy site that she says has never really gone away and is tender to palpation. Date of service 01/15/2021: Still with significant cough. No chest pain though or shortness of breath. Date of service 01/16/2021: Cough is persistent but she feels like her breathing is better. Complaining of pleuritic chest pain when she coughs. Date of service 01/17/2021: Continues to improve from a respiratory standpoint - she does still have a persistent cough. Denies chest pain, palpitations Review of Systems Constitutional: Constitutional: Reports no additional constitutional complaints and Reports weakness Eyes: Eyes: Reports no additional eye complaints ENT: Reports system reviewed and no additional complaints, except as documented Cardiovascular: Cardiovascular: Reports no additional cardiovascular complaints and Reports dyspnea on exertion Respiratory: Respiratory: Reports dyspnea on exertion Gastrointestinal: Gastrointestinal: Reports no additional gastrointestinal complaints Musculoskeletal: Musculoskeletal: Reports no additional musculoskeletal complaints Integumentary/Breasts: Skin/Breast: Reports system reviewed and no additional complaints, except as docu Neurologic: Reports system reviewed and no additional complaints, except as documented and Reports weakness Endocrine: Endocrine: Reports no additional endocrine complaints Hematologic/Lymphatic: Hematologic/Lymphatic: Reports no additional hematologic/lymphatic complaints Allergic/Immunologic: Allergic/Immunologic: Reports no additional allergic/immunologic complaints Exam Const: General: comfortable and no acute distress Orientation/consciousness: patient oriented x3 Other: Elderly lady sitting on the edge of the bed. Alert and oriented. Pleasant and cooperative. HENMT: Head: normal to inspection Mouth: Yes moist mucous membranes Eyes: General: appearance normal, both eyes and all related structures Sclera: sclerae normal Pupils: Equal, round and reactive pupils present Neck: Neck: supple and no JVD Resp: Effort & Inspection: normal respiratory effort and Actively coughing productive Auscultation: wheezes scattered wheezes Other: L chest wall mastectomy site incision tender to palpati
[2021-01-17] MEDS: CHOLECALCIFEROL 1,000 UNITS TABLET 2000 UNITS PO (12:22)
[2021-01-17] MEDS: CYANOCOBALAMIN 1,000 MCG TABLET 5000 MCG PO (12:22)
--- NOTE | 2021-01-17 12:23 | PM.DS ---
DS: Admitting Diagnosis Discharge Date 01/17/21 Admitting Diagnosis weakness DS: Discharge Diagnosis Discharge Diagnosis (1) Atrial flutter with rapid ventricular response: Code(s): I48.92 - Unspecified atrial flutter Status: Acute Assessment and Plan: Patient presents with weakness and found to have atrial flutter with RVR. [id number] 5. She was started on flecainide as well as Xarelto for stroke prophylaxis. She has converted to normal sinus rhythm. She remained on metoprolol. Cardiology followed. Echo showing EF of 65% with diastolic dysfunction. Elevated troponins noted felt related to the RVR. TSH low at 0.15. Synthroid dose was decreased. EKG showing elevated QTc. Flecainide dose decreased then stopped. (2) Elevated troponin: Code(s): R77.8 - Other specified abnormalities of plasma proteins Status: Acute Assessment and Plan: Trop climbed to 0.066 felt related to the Aflutter with RVR. No wall motion abnormalities noted by echocardiogram. [place] troponin elevation related to nonischemic myocardial injury. (3) Hypokalemia: Code(s): E87.6 - Hypokalemia Status: Acute Assessment and Plan: Potassium 2.9 on admission that was corrected. Electrolytes followed closely and replaced as needed. (4) Chronic obstructive pulmonary disease: Code(s): J44.9 - Chronic obstructive pulmonary disease, unspecified Status: Acute Assessment and Plan: Patient with persistent cough with wheezing related to her COPD. CXR showing hyperinflation. Treated with steroids and nebulizer treatments. Remained on room air. Cough improved (5) Insulin dependent type 2 diabetes mellitus: Code(s): E11.9 - Type 2 diabetes mellitus without complications; Z79.4 - penitentiary (current) use of insulin Status: Acute Assessment and Plan: A1c 10.1. The patient's blood glucose was monitored closely with AccuCheks covering with sliding scale. Hypoglycemia protocol available as needed. (6) Hypertension: Qualifiers: Hypertension type: essential hypertension Qualified Code(s): I10 - Essential (primary) hypertension Code(s): I10 - Essential (primary) hypertension Status: Chronic Assessment and Plan: Patient's blood pressure was monitored closely and remained well controlled. (7) Generalized weakness: Code(s): R53.1 - Weakness Status: Acute Assessment and Plan: Related to above. We instituted fall precautions. She worked with PT/OT (8) Multiple falls: Code(s): R29.6 - Repeated falls Status: Acute Assessment and Plan: Unclear etiology. Brain CT showing no acute abnormalities. Possibly related to peripheral neuropathy. Did well with PT/OT. (9) Hypothyroidism: Code(s): E03.9 - Hypothyroidism, unspecified Status: Acute Assessment and Plan: TSH slightly decreased. Levothyroxine decreased to 112 mcg. Repeat TSH as outpatient (10) Rheumatoid arthritis: Qualifiers: Rheumatoid arthritis location: multiple sites Rheumatoid factor presence: unspecified presence Qualified Code(s): M06.9 - Rheumatoid arthritis, unspecified Code(s): M06.9 - Rheumatoid arthritis, unspecified Status: Acute Assessment and Plan: Stable. Currently on Prednisone 5mg and MTX. Currently on a tapering dose of Prednisone. (11) Obstructive sleep apnea: Code(s): G47.33 - Obstructive sleep apnea (adult) (pediatric) Status: Acute Assessment and Plan: Patient is intolerant to CPAP. DS: Summary Hospital Course Reason for hospitalization: 75yo female with DM, RA, COPD and HTN here for weakness and falls and found to be in AFlutter. Please see H&P for detials Hospital Course: Please see above for details of hospital course Status at Discharge Cognitive/behavioral status at discharge: Stable Time Spent with
[2021-01-17 12:31] LABS: Glucose Point of Care 281 mg/dl (65-105)
[2021-01-17] MEDS: INSULIN ASPART (*BKC) 100 UNITS/ML SUB-Q (13:18)
== END 2021-01-17 13:55 | disposition home or self-care (01) | DRG 309 ==
LOC: ANHED 08:44 → ANHIMU 10:14 → ANH3MEDSUR 01-13 18:49 → ANHIMU 01-20 14:36
PROVIDERS: Emergency Medicine; Nurse Practitioner Adult Health; Physician Assistant; Admitting Provider Family Medicine; Emergency Provider Emergency Medicine; PCP Family Medicine; Visit Provider Internal Medicine
DX: I5A Non-ischemic myocardial injury (non-traumatic) (principal); I48.92 Unspecified atrial flutter; E11.42 Type 2 diabetes mellitus with diabetic polyneuropathy; E11.65 Type 2 diabetes mellitus with hyperglycemia; I10 Essential (primary) hypertension; E87.6 Hypokalemia; R77.8 Other specified abnormalities of plasma proteins; J44.9 Chronic obstructive pulmonary disease, unspecified; R53.1 Weakness; R29.6 Repeated falls; E03.9 Hypothyroidism, unspecified; D72.829 Elevated white blood cell count, unspecified; M06.9 Rheumatoid arthritis, unspecified; G47.33 Obstructive sleep apnea (adult) (pediatric); F41.8 Other specified anxiety disorders; K21.9 Gastro-esophageal reflux disease without esophagitis; Z28.21 Immunization not carried out because of patient refusal; Z79.4 Long term (current) use of insulin; Z79.82 Long term (current) use of aspirin; Z85.3 Personal history of malignant neoplasm of breast; Z87.891 Personal history of nicotine dependence; Z98.42 Cataract extraction status, left eye; Z98.41 Cataract extraction status, right eye
CPT/HCPCS: 36415; 51701; 70450; 71045; 71046; 72125; 80048; 80053; 80069; 81001; 82948; 83036; 83735; 84439; 84443; 84480; 84484; 85025; 85027; 85610; 85730; 93005; 93306; 94640; 96374; 96375; 97161; 97165; 99285; A9270; G0378; J0153; J1815; J2930; J3480; J7030; J7512

== ENCOUNTER 2021-01-25 04:50 | Emergency (ER) | payer MEDICARE, SELFPAY ==
--- NOTE | ~2021-01-25 | CT_ITS ---
EXAMINATION: CT abd pelvis lumbar wo con DATE: 01/25/2021 05:57 INDICATION: Bilateral flank pain and low back pain TECHNIQUE: Computed tomography (CT) of the abdomen and pelvis and lumbar spine was performed without intravenous contrast. The dose-length product (DLP) was 1058.22 mGy-cm. Automated exposure control an d iterative reconstruction technique were employed. COMPARISON: 02/26/2020 FINDINGS: Abdomen/pelvis: There appears to be mild nodularity of the liver surface. The spleen, pancreas, and a drenal glands are normal. There is a diverticulum of the second portion of the duodenum. There is a 7 mm hemorrhagic cyst of the right kidney. The left kidney is unremarkable. There is calcified atheros clerosis of the aorta and many of the other arteries. No pathologically enlarged abdominal or pelvic lymph nodes are identified. There is no free intraperitoneal gas or evidence of bowel obstruction. Co lonic diverticulosis is present without evidence of diverticulitis. Lumbar spine: There is no fracture, dislocation, or subluxation. The vertebral body heights and inter vertebral disc spaces are normal. Small degenerative osteophytes project from the anterior endplates of multiple vertebral bodies. There is mild facet osteoarthritis. IMPRESSION: 1. No CT correlate for the patient's symptoms. 2. Mild lumbar spondylosis without acute findings. Reviewed, dictated and finalized at location A. CAL CLAIMS EXAMINER
[2021-01-25 04:54] VITALS: BP 162/66; PULSE 78; RESP 14; TEMP 36.9; O2SAT 99
--- NOTE | 2021-01-25 05:31 | ED.ABDPAIN ---
HPI - Abdominal Pain General Chief Complaint: Abdominal Pain Stated Complaint: Back pain, abd pain Time Seen by Provider: 01/25/21 04:52 Source: patient Mode of arrival: ambulatory Limitations: no limitations History of Present Illness HPI narrative: This is a 75 year old female with history of COPD, Rheumatoid arthritis, hypertension, DJD who presents for evaluation of bilateral flank pain and abdominal pain. She has been having bilateral flank pain for 5 days. She states her pain has only been occurring at night when she tries to laying bed for sleep. She is not having back throughout the day. She was started on a muscle relaxer by her PCP 4 days but it is not helping her pain. She is also having pain that radiates around to her lower abdomen. She denies frequent urinary but she is reporting urinary hesitancy. She denies fever, chills, nausea or vomiting. She also denies leg numbness or tingling. Related Data Home Medications Medication Instructions Recorded Confirmed aspirin 81 mg tablet,delayed 81 mg PO HS 01/10/19 01/12/21 release omeprazole 20 mg capsule,delayed 20 mg PO HS 01/10/19 01/12/21 release budesonide-formoterol [Symbicort] 2 puff INHALATION BID 11/17/19 01/12/21 metoprolol succinate 25 mg PO HS 11/17/19 01/12/21 albuterol sulfate [Ventolin HFA] 90 mcg INHALATION PRN PRN 12/04/19 01/12/21 melatonin 3 mg PO HS PRN 12/04/19 01/12/21 rosuvastatin 10 mg PO HS 12/04/19 01/12/21 folic acid 1 mg tablet 1 mg PO DAILY 05/07/20 01/12/21 methotrexate sodium 5 mg tablet 2.5 mg PO WEEKLY 09/30/20 01/12/21 duloxetine 30 mg PO DAILY 10/04/20 01/12/21 duloxetine 60 mg PO HS 10/04/20 01/12/21 Xiidra 1 drp EACH EYE BID 10/05/20 01/12/21 cholecalciferol (vitamin D3) 50 mcg PO QNOON 10/05/20 01/12/21 [Vitamin D3] cyanocobalamin (vitamin B-12) 5,000 mcg PO QNOON 10/05/20 01/12/21 valacyclovir See Rx Instructions .ROUTE 10/05/20 01/12/21 .COMPLEX PRN cetirizine [Allergy Relief 10 mg PO DAILY 01/12/21 01/12/21 (cetirizine)] hydrochlorothiazide 25 mg PO DAILY 01/12/21 01/12/21 Allergies Allergy/AdvReac Type Severity Reaction Status Date / Time shellfish derived Allergy Severe HIVES/RASH Verified 01/25/21 05:02 shrimp Allergy Severe RASH/HIVES Verified 01/25/21 05:02 celecoxib Allergy Intermediate RASH/HIVES Verified 01/25/21 05:02 fish oil Allergy Intermediate RASH/HIVES Verified 01/25/21 05:02 metformin Allergy Unknown Chest Pain Verified 01/25/21 05:02 Contrast Media Allergy Intermediate NAUSEA, Uncoded 01/25/21 05:02 HOT FLASHES, DYSPNEA Review of Systems Review of Systems: All systems reviewed & are unremarkable except as noted in HPI and below PMFSH Past Medical History Medical History Cancer of left breast Chronic obstructive pulmonary disease Colon polyps Degenerative joint disease of knee Depression with anxiety Diabetic peripheral neuropathy Diverticulitis Hypertension Hypothyroidism Insulin dependent type 2 diabetes mellitus Obstructive sleep apnea Intolerant to CPAP. Osteopenia Rheumatoid arthritis Vitiligo Surgical History Surgical History History of appendectomy History of bilateral cataract extraction History of cardiac catheterization Unremarkable per patient report. History of cholecystectomy History of colonoscopy with polypectomy History of fusion of cervical spine History of hysterectomy History of incision and drainage (05/2018) Right cheek abscess. History of left mastectomy History of thyroidectomy Family History Family History Father Diabetes mellitus Hypertension Cerebrovascular accident Family history of malignant melanoma Mother Diabetes mellitus Hypertension Family history of lung cancer Sibling Family history of malignant melanoma Other Family history of cardiov
--- NOTE | 2021-01-25 05:38 | PC.NURSE ---
Pt to CT via stretcher at this time
[2021-01-25 05:47] LABS: Basophils Percent Auto 0.2 % (0.2-1.2); Hematocrit 39.5 % (37.0-47.0); Hemoglobin 13.4 g/dL (12.0-15.0); Immature Granulocyte Absolute 0.17 K/mm3 (0.00-0.031); Lymphocytes Absolute Auto 3.85 K/mm3 (0.9-3.2); Mean Corpuscular HGB Conc 33.9 g/dl (32-36); Mean Corpuscular Volume 91.4 fl (80-100); Mean Platelet Volume 9.2 fl (7.4-10.4); Monocytes Absolute Auto 1.5 K/mm3 (0.1-0.6); Monocytes Percent Auto 8.8 % (2.6-8.5); Neutrophils Absolute Auto 11.2 K/mm3 (1.3-6.7); Platelet Count Result 362 k/mm3 (150-375); Red Blood Count 4.32 M/mm3 (4.2-5.4); Red Cell Distribution Width 13.6 % (11.5-14.5); White Blood Count 16.7 K/mm3 (4.5-10.0)
[2021-01-25] MEDS: ONDANSETRON INJ 4 MG/2 ML VIAL IV PUSH (05:58)
[2021-01-25] MEDS: MORPHINE SULFATE (*CRX) 4 MG/ML INJ IV PUSH (05:59)
[2021-01-25 06:00] LABS: Alanine Aminotransferase 24 U/L (4-35); Albumin Level 4.1 g/dL (3.5-5.1); Alkaline Phosphatase 123 U/L (38-126); Anion Gap 8 mmol/L (8-16); Aspartate Amino Transferase 20 U/L (14-36); Bilirubin,Total 0.5 mg/dL (0.2-1.3); Blood Urea Nitrogen 24 mg/dL (7-17); Calcium 9.2 mg/dL (8.4-10.2); Carbon Dioxide 32 mmol/L (22-30); Chloride 92 mmol/L (98-107); Estimated CRCL calculation 68 ml/min; Estimated Glomerular Filt Rate > 60; Glucose 169 mg/dL (65-110); Lipase 57 U/L (23-300); Potassium 3.3 mmol/L (3.4-5.0); Sodium 132 mmol/L (137-145)
--- NOTE | 2021-01-25 06:47 | PC.NURSE ---
Pt refused straight catheter, EDP notified. Pt currently on bedside commode attempting to give urine sample.
[2021-01-25 06:52] VITALS: BP 139/67; PULSE 72; RESP 21; O2SAT 96
[2021-01-25 07:18] LABS: Add Urine Microscopic? YES; Appearance Urine Cloudy (Clear); Bacteria Urine Trace /hpf; Bilirubin Urine Negative (Negative); Blood Urine 3+ (Negative); Color Urine Yellow (Yellow); Glucose Urine UA Negative (Negative); Ketones Urine Negative (Negative); Leukocyte Esterase Ur Trace LEU/UL (Negative); Mucus Urine Rare /lpf; Nitrate Urine Positive (Negative); Protein Urine Negative (Negative); RBC Urine >75 /hpf (0-2); Specific Grav Ur 1.015 (1.001-1.035); Squamous Epithelial Cell Urine Few /hpf (Few); WBC Urine 51-75 /hpf
== END 2021-01-25 08:24 | disposition home or self-care (01) ==
PROVIDERS: Emergency Provider General Practice; PCP Family Medicine
DX: N30.90 Cystitis, unspecified without hematuria (principal); J44.9 Chronic obstructive pulmonary disease, unspecified; E11.42 Type 2 diabetes mellitus with diabetic polyneuropathy; I10 Essential (primary) hypertension; G47.33 Obstructive sleep apnea (adult) (pediatric); M85.80 Other specified disorders of bone density and structure, unspecified site; M06.9 Rheumatoid arthritis, unspecified; E89.0 Postprocedural hypothyroidism; Z85.3 Personal history of malignant neoplasm of breast; Z86.010 Personal history of colon polyps; Z98.42 Cataract extraction status, left eye; Z98.41 Cataract extraction status, right eye; Z98.1 Arthrodesis status; Z90.12 Acquired absence of left breast and nipple; Z87.891 Personal history of nicotine dependence; Z79.4 Long term (current) use of insulin; Z79.01 Long term (current) use of anticoagulants; Z79.82 Long term (current) use of aspirin
CPT/HCPCS: 36415; 72131; 74176; 80053; 81001; 83690; 85025; 87077; 87086; 87088; 87186; 96365; 96375; 99284; J0696; J2270; J2405

== ENCOUNTER 2021-02-20 12:46 | Outpatient (CLI) | payer MEDICARE, SELFPAY ==
--- NOTE | ~2021-02-20 | DEXA_ITS ---
Bone Density Report Name: MEMO CRUZ Age: 75 Sex: Female Ethnicity: White Date of : 1945 Indication: postmenopausal; parental hip fracture; history of glucocorticoids; cancer; asthma or emphysema; hysterectomy; rheumatoid arthritis; Referring Provider: David Pruitt Study: Bone densitometry was performed. Exam Date: February 20, 2021 Accession number: [id number] Bone Density: Region BMD T-score Z-score Classification AP Spine (L1-L4) 1.062 0.1 2.7 Normal Femoral Neck (Left) 0.757 -0.8 1.4 Normal Total Hip (Left) 0.938 0.0 1.9 Normal Total Hip Bilateral Avg 0.961 0.2 2.1 Normal Femoral Neck (Right) 0.803 -0.4 1.8 Normal Total Hip (Right) 0.983 0.3 2.2 Normal World Health Organization criteria for BMD impression classify patients as: Normal (T-score at or above -1.0), Osteopenia (T-score between -1.0 and -2.5), or Osteoporosis (T-score at or below -2.5). 10-year Fracture Risk: FRAX not reported because: All T-scores for Spine Total, Hip Total, Femoral Neck at or above -1.0 Clinical Information Provided by Patient: Parent has had a hip fracture Has taken Glucocorticoids Has rheumatoid arthritis Has used the following medications: Vitamin D, Calcium Has the following medical conditions: Asthma or Emphysema, Cancer, Hysterectomy Patient maximum height was 62 Menopause Age: 30 No regular weight bearing exercise Drinks caffeinated beverages Onset of menses at age 14 Number of children 3 Impression: The patient has normal bone mass. The patient has risk factors, including: parental hip fracture, history of glucocorticoid therapy. Discussion: BONE DENSITY IS ABOVE THE MINIMUM DESIRABLE LEVEL AT ALL SKELETAL SITES TESTED. This patient?s bone mineral density is above the minimum desirable level (T-score -1.0 or better) at all sites measured. The patient should follow a healthful lifestyle (good nutrition with adequate calcium and vitamin D, and appropriate weight-bearing exercise). Follow-Up: Consider repeating this study in 5 years or sooner if there is some new clinical indication. Reported by: [facility] on 02/20/2021 1:07:00 PM. Reviewed, dictated and finalized at location Shay ALEGRIA
== END 2021-02-20 12:47 | disposition home or self-care (01) ==
LOC: ANHIMG 12:48
PROVIDERS: PCP Family Medicine; Visit Provider Family Medicine
DX: Z78.0 Asymptomatic menopausal state (principal)
CPT/HCPCS: 77080

== ENCOUNTER 2021-03-03 15:29 | Emergency (ER) | payer MEDICARE, SELFPAY ==
--- NOTE | ~2021-03-03 | XR_ITS ---
EXAMINATION: XR knee RT min 4V EXAM DATE: 03/03/2021 18:49 INDICATION: Right knee pain, fall, bruising. TECHNIQUE: Right knee frontal, crosstable lateral, orthogonal oblique projections for interpretation . Comparison is made to prior examination from 08/29/2018. FINDINGS: No evidence osteochondral defect or joint body in the right knee joint. There is mild pat ellofemoral and medial tibiofemoral primary osteoarthritis. There are no acute fractures or dislocati ons identified. There is no subcutaneous gas. Mild scattered arterial sclerosis. Small joint effusi on. There are no radiopaque foreign bodies. IMPRESSION: 1. XR knee RT min 4V exam without acute osseous findings. 2. Small joint effusion. 3. Mild osteoarthritis. Reviewed, dictated and finalized at location A. D ARTILLERY SENIOR SERGEANT
--- NOTE | ~2021-03-03 | XR_ITS ---
EXAMINATION: XR lumbar spine 2-3V EXAM DATE: 03/03/2021 18:49 INDICATION: low back pain, fall . TECHNIQUE: Lumber spine frontal, lateral, lateral L5-S1 projections for interpretation. There is no prior study for comparison. FINDINGS: Mild lumbar disc disease, mild to moderate facet arthropathy. There are no acute fractures identified. Mild to moderate abdominal aortic arteriosclerosis. Sacrum, sacroiliac joints, sacral ar jeff lines are intact. Paraspinal soft tissue is unremarkable. IMPRESSION: 1. No acute lumbar findings. 2. Mild to moderate facet arthropathy, mild disc disease. Reviewed, dictated and finalized at location A. ALL FINISHER FOREMAN
--- NOTE | ~2021-03-03 | XR_ITS ---
EXAMINATION: XR hip LT min 3V w AP pelvis EXAM DATE: 03/03/2021 18:48 INDICATION: left hip pain, fall . Initial encounter. TECHNIQUE: Left hip frontal, crosstable lateral and 'frog-leg' projections for interpretation. Fronta l projection pelvis. Comparison is made to prior examination from 08/31/2019. FINDINGS: Smooth left hip femoral head contour, no radiographic evidence of avascular necrosis. Ther e is mild symmetric bilateral hip primary osteoarthritis. There are no acute pelvic or left hip fract ures or dislocations identified. There is no subcutaneous gas. The soft tissue is unremarkable. T here are no radiopaque foreign bodies. IMPRESSION: 1. Pelvis, left hip exam without acute osseous findings. 2. Mild osteoarthritis. Reviewed, dictated and finalized at location A. M CLINICIAN
--- NOTE | ~2021-03-03 | XR_ITS ---
EXAMINATION: XR ankle RT min 3V EXAM DATE: 03/03/2021 18:48 INDICATION: RT ankle Pain Medial And Lateral Malleolus. TECHNIQUE: Right ankle frontal, lateral and oblique projections obtained and reviewed. There is no p rior study for comparison. FINDINGS: The right ankle mortise appears intact. There are no acute fractures or dislocations iden tified. There is no subcutaneous gas. The soft tissue is unremarkable. There are no radiopaque fo reign bodies. There is mild polyarticular primary osteoarthritis. IMPRESSION: 1. XR ankle RT min 3V exam without acute osseous findings. Reviewed, dictated and finalized at location A. R SPECIALIST
--- NOTE | ~2021-03-03 | XR_ITS ---
EXAMINATION: XR knee LT min 4V EXAM DATE: 03/03/2021 18:01 INDICATION: left knee pain, fall . Initial encounter. TECHNIQUE: Left knee frontal, crosstable lateral, orthogonal oblique projections for interpretation. Comparison is made to prior examination from 08/29/2018. FINDINGS: No evidence osteochondral defect or joint body in the left knee joint. There are no acute fractures or dislocations identified. There is no subcutaneous gas. Trace joint fluid. Mild femora l and popliteal arterial sclerosis. There are no radiopaque foreign bodies. IMPRESSION: 1. XR knee LT min 4V exam without acute osseous findings. Reviewed, dictated and finalized at location A. OL JANITOR
[2021-03-03 15:32] VITALS: BP 143/57; PULSE 78; RESP 20; TEMP 37; O2SAT 95
--- NOTE | 2021-03-03 18:20 | ED.LOWEXIN ---
HPI - Extremity Injury (Lower) General Chief Complaint: Extremity Injury, Lower Stated Complaint: fall. left knee pain Time Seen by Provider: 03/03/21 17:49 Source: patient Mode of arrival: wheelchair Limitations: no limitations History of Present Illness HPI Narrative: This is a 75 year old female that presents to the ER after a ground level fall today. 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 Reports falling forward and landing on her knees. Reports bilateral knee pain, right ankle pain, left hip pain and low back pain. Denies hitting her head, neck pain, loss of consciousness, vision changes, vomiting, numbness, or weakness. Related Data Home Medications Medication Instructions Recorded Confirmed aspirin 81 mg tablet,delayed 81 mg PO HS 01/10/19 02/05/21 release omeprazole 20 mg capsule,delayed 20 mg PO HS 01/10/19 02/05/21 release budesonide-formoterol [Symbicort] 2 puff INHALATION BID 11/17/19 02/05/21 metoprolol succinate 25 mg PO HS 11/17/19 02/05/21 albuterol sulfate [Ventolin HFA] 90 mcg INHALATION PRN PRN 12/04/19 02/05/21 melatonin 3 mg PO HS PRN 12/04/19 02/05/21 rosuvastatin 10 mg PO HS 12/04/19 02/05/21 folic acid 1 mg tablet 1 mg PO DAILY 05/07/20 02/05/21 methotrexate sodium 5 mg tablet 2.5 mg PO WEEKLY 09/30/20 02/05/21 duloxetine 30 mg PO DAILY 10/04/20 02/05/21 duloxetine 60 mg PO HS 10/04/20 02/05/21 Xiidra 1 drp EACH EYE BID 10/05/20 02/05/21 cholecalciferol (vitamin D3) 50 mcg PO QNOON 10/05/20 02/05/21 [Vitamin D3] cyanocobalamin (vitamin B-12) 5,000 mcg PO QNOON 10/05/20 02/05/21 valacyclovir See Rx Instructions .ROUTE 10/05/20 02/05/21 .COMPLEX PRN cetirizine [Allergy Relief 10 mg PO DAILY 01/12/21 02/05/21 (cetirizine)] hydrochlorothiazide 25 mg PO DAILY 01/12/21 02/05/21 Allergies Allergy/AdvReac Type Severity Reaction Status Date / Time shellfish derived Allergy Severe HIVES/RASH Verified 03/03/21 17:59 shrimp Allergy Severe RASH/HIVES Verified 03/03/21 17:59 celecoxib Allergy Intermediate RASH/HIVES Verified 03/03/21 17:59 fish oil Allergy Intermediate RASH/HIVES Verified 03/03/21 17:59 metformin Allergy Unknown Chest Pain Verified 03/03/21 17:59 Contrast Media Allergy Intermediate NAUSEA, Uncoded 02/05/21 15:19 HOT FLASHES, DYSPNEA Review of Systems Review of Systems: CONSTITUTIONAL: Denies fever EYES: Denies visual changes GASTROINTESTINAL: Denies vomiting MUSCULOSKELETAL: Reports back pain, joint pain, and myalgia. NEUROLOGIC: Denies headache, numbness, or weakness. All systems reviewed & are unremarkable except as noted in HPI and below PMFSH Past Medical History Medical History (Updated 03/03/21 @ 19:58 by Cristina Whatley PA-C) Cancer of left breast Chronic obstructive pulmonary disease Colon polyps Degenerative joint disease of knee Depression with anxiety Diabetic peripheral neuropathy Diverticulitis Hypertension Hypothyroidism Insulin dependent type 2 diabetes mellitus Obesity Obstructive sleep apnea Intolerant to CPAP. Osteopenia Rheumatoid arthritis Vitiligo Surgical History Surgical History History of appendectomy History of bilateral cataract extraction History of cardiac catheterization Unremarkable per patient report. History of cholecystectomy History of colonoscopy with polypectomy History of fusion of cervical spine History of hysterectomy History of incision and drainage (05/2018) Right cheek abscess. History of left mastectomy History of thyroidectomy Family History Family History Father Diabetes mellitus Hypertension Cerebrovascular accident Family history of malignant melanoma Mother Diabetes mellitus Hypertension Family history of lung cancer Sibling Family history of malignant melanoma Other Family history of cardiovascular disease Family history of malignant neoplasm Mal
[2021-03-03 19:15] VITALS: BP 137/89; PULSE 70; RESP 18; O2SAT 99
== END 2021-03-03 20:23 | disposition home or self-care (01) ==
PROVIDERS: Emergency Provider Emergency Medicine; PCP Family Medicine
DX: S80.02XA Contusion of left knee, initial encounter (principal); J44.9 Chronic obstructive pulmonary disease, unspecified; E11.42 Type 2 diabetes mellitus with diabetic polyneuropathy; E03.9 Hypothyroidism, unspecified; G47.33 Obstructive sleep apnea (adult) (pediatric); M06.9 Rheumatoid arthritis, unspecified; M17.10 Unilateral primary osteoarthritis, unspecified knee; M85.80 Other specified disorders of bone density and structure, unspecified site; E66.9 Obesity, unspecified; Z68.34 Body mass index [BMI] 34.0-34.9, adult; Z85.3 Personal history of malignant neoplasm of breast; Z86.010 Personal history of colon polyps; Z98.42 Cataract extraction status, left eye; Z98.41 Cataract extraction status, right eye; Z98.1 Arthrodesis status; Z90.12 Acquired absence of left breast and nipple; Z87.891 Personal history of nicotine dependence; M51.36 Other intervertebral disc degeneration, lumbar region; M16.12 Unilateral primary osteoarthritis, left hip; Z79.4 Long term (current) use of insulin; Z79.84 Long term (current) use of oral hypoglycemic drugs; Z79.01 Long term (current) use of anticoagulants; Z79.82 Long term (current) use of aspirin; W01.0XXA Fall on same level from slipping, tripping and stumbling without subsequent striking against object, initial encounter
CPT/HCPCS: 72100; 73502; 73564; 73610; 99284

== ENCOUNTER 2021-05-13 14:49 | Outpatient (CLI) | payer MEDICARE, SELFPAY ==
--- NOTE | ~2021-05-13 | CT_ITS ---
EXAMINATION:CT diagnostic chest wo con DATE: 05/13/2021 15:15 INDICATION: Chronic obstructive pulmonary disease. TECHNIQUE: Computed tomography (CT) of the chest was performed without intravenous contrast. Automate d exposure control and iterative reconstruction technique were employed. The dose-length product (DLP ) was 239.15 mGy-cm. COMPARISON: CT abdomen and pelvis 01/25/2021 FINDINGS: There is mild emphysema. There is mild atelectasis in the lungs bilaterally. Calcified pulm onary nodules are consistent with old granulomatous disease. No pleural effusion. The heart size is n ormal. There are coronary artery calcifications. No pericardial effusion. There are surgical clips in left axilla. There are changes of left mastectomy. There is diffuse hepatic steatosis. There is mild thoracic spondylosis. There is severe cervical spondylosis. IMPRESSION: 1. Mild emphysema. Reviewed, dictated and finalized at location A. IMPRESSION: 1. Mild emphysema.
== END 2021-05-13 14:50 | disposition home or self-care (01) ==
LOC: ANHIMG 14:50
PROVIDERS: PCP Family Medicine; Visit Provider Internal Medicine Pulmonary Disease
DX: J44.9 Chronic obstructive pulmonary disease, unspecified (principal)
CPT/HCPCS: 71250

== ENCOUNTER 2021-05-16 15:00 | Outpatient (RCR) | payer MEDICARE, SELFPAY ==
--- NOTE | 2021-04-11 15:55 | PTOPEVAL ---
PHYSICAL THERAPY INITIAL EVALUATION. Thank you for referring Rula Goldstein to [facility].? The patient is scheduled to be seen for therapy?1x/week for 4 weeks. Please review, sign, date and return this plan of care ELIZABETH. I agree with and certify that the following plan of care is medically necessary. Referring Physician Date Attending Provider: David Pruitt MD *PT Outpatient Evaluation Start: 04/11/21 Evaluation Information Subjective Information Pt states she fell a while Query Text:As Reported By Patient/ ago , she states the hospital Family did an X-Ray on everything but her shoulder. Since her fall in March she has had an increase in shoulder pain. The pain increases when she lays on her L side. Pt states she does not know what caused her to fall. Pt states she ambulates with a front WW around her home and uses a manual wheelchair in the community. Pt denies shoulder pain with use of her walker. Pt reports she is unable to do her ADLs at home due to chronic joint and back pain. Pain Assessment Other Pain Aggravating Factors Main report of pain is when sleeping on left side Pain Score 1: Self Report Upper Extremity Range of Motion Gross Upper Extremity Range of Motion Range of motion is equal bilaterally Upper Extremity Muscle Strength Testing Gross Upper Extremity Strength Comments B UE symmetrical and grossly 4- /5 Mild pain reported with resisted L shoulder ER and flexion. Palpation Moderate tenderness to palpation at lateral arm 3-4 inches superior to lateral epicondyle as well as at the anterior head of the humerus. Mild pain along lateral shaft of the humerus. Moderate tenderness at the superior aspect of the GH joint. Factors Affecting Safety Decreased Balance,Decreased Endurance,Decreased Mobility, Decreased Sensation,Limited Range of Motion,Weakness Safety Comments Pt reports a high incidence of
--- NOTE | 2021-04-18 10:30 | PCPTNOTE ---
Patient called & cancelled scheduled appointment this date due to inclement weather.
--- NOTE | 2021-04-25 12:46 | PCPTNOTE ---
Patient called & cancelled scheduled appointment this date due to not feeling well.
--- NOTE | 2021-05-16 15:34 | PTOPEVAL ---
PHYSICAL THERAPY DISCHARGE NOTE Thank you for referring Rula Goldstein to [facility].? The patient is to be discharged from physial therapy at this time. Please review, sign, date and return this plan of care ELIZABETH. I agree with and certify that the following plan of care is medically necessary. Referring Physician Date Attending Provider: David Pruitt MD *PT Outpatient Evaluation Start: 04/11/21 Evaluation Information Diagnosis Pain in L shoulder Onset Mar 2021 Subjective Information Pt states her shoulder has Query Text:As Reported By Patient/ gotten a lot better since she Family started therapy. She reports a little bit of pain in her lateral arm today but states she might have slept wrong on it last night. She reports she does her exercises daily, she also states she doesn't know where her papers are so she just moves her arms around . Pt states she can be done with therapy as long as she keeps doing things at home. Pain Assessment Pain Score 0: Self Report Upper Extremity Range of Motion General Upper Extremity Range of Motion WFL/Left,WFL/Right Gross Upper Extremity Range of Motion Range of motion is equal bilaterally Upper Extremity Muscle Strength Testing General Upper Extremity Strength WFL/Left,WFL/Right Gross Upper Extremity Strength Comments B UE symmetrical and grossly 4/5 No pain reported with resistance Palpation Assessment Palpation Mild pain along lateral shaft of the humerus. PT Clinical Summary Rula is a 75 y/o female who presents to therapy today for a progress note following 4 weeks of therapy. Pt continues to show equally limited yet functional shoulder range of motion as well as strength. She reports no functional deficits regarding her shoulders. Pt is to be discharged from skilled physial therapy services at this time. She is to be discharged to her updated home exercise program. Kelli was educated on the importance of continuing her HEP. PT Services Indicated No
== END 2021-05-19 09:19 | disposition home or self-care (01) ==
LOC: ANHPT 15:00
PROVIDERS: PCP Family Medicine; Visit Provider Family Medicine
DX: M25.512 Pain in left shoulder (principal)
CPT/HCPCS: 97110; 97140; 97161

== ENCOUNTER 2021-05-29 12:54 | Outpatient (RCR) | payer MEDICARE, SELFPAY ==
[2021-05-29 13:03] VITALS: BMI 36.3
[2021-05-29 13:12] VITALS: BMI 36.3
== END 2021-08-18 11:12 | disposition home or self-care (01) ==
LOC: ANHDMC 12:54
PROVIDERS: PCP Family Medicine; Visit Provider Internal Medicine Endocrinology, Diabetes & Metabolism
DX: E11.65 Type 2 diabetes mellitus with hyperglycemia (principal); Z71.3 Dietary counseling and surveillance
CPT/HCPCS: 97802

== ENCOUNTER 2021-06-02 12:32 | Outpatient (CLI) | payer MEDICARE, SELFPAY ==
[2021-06-02 13:00] VITALS: PULSE 86; O2SAT 93
[2021-06-02 13:03] VITALS: PULSE 99; O2SAT 87
[2021-06-02 13:05] VITALS: PULSE 99; O2SAT 87
[2021-06-02 13:06] VITALS: PULSE 96; O2SAT 92
[2021-06-02 13:15] VITALS: PULSE 82; O2SAT 94
--- NOTE | 2021-06-02 14:48 | HOMEO2EVAL ---
Evaluation was performed at [facility] Home Oxygen Evaluation RC: Home Oxygen (O2) Evaluation Start: 06/02/21 14:42 Freq: Status: Active Protocol: RPE Activity Type Activity Date Activity User E-Sign Co-Sign Detail Recorded Client Recorded Date Recorded By Document 06/02/21 13:00 ROBERTA [email or web address] 06/02/21 14:47 ROBERTA Document 06/02/21 13:03 ROBERTA [email or web address] 06/02/21 14:47 ROBERTA Document 06/02/21 13:05 ROBERTA [email or web address] 06/02/21 14:47 ROBERTA Document 06/02/21 13:06 ROBERTA [email or web address] 06/02/21 14:47 ROBERTA Document 06/02/21 13:15 ROBERTA [email or web address] 06/02/21 14:47 ROBERTA 06/02/21 06/02/21 06/02/21 13:00 13:03 13:05 Home O2 Evaluation Test Phase Resting Exercise Exercise Oxygen Delivery Room Air Room Air Nasal Cannula Oxygen Flow Rate (L/min) 1 Pulse Oximetry (90-100 %) 93 87 L 87 L Pulse Rate (60-100 beats/min) 86 99 99 Ambulation Distance (feet) Ambulation Distance (meters) Home Oxygen Evaluation Comments Treatment Charges O2 Evaluation - Outpatient 06/02/21 06/02/21 13:06 13:15 Home O2 Evaluation Test Phase Exercise Resting Oxygen Delivery Nasal Cannula Room Air Oxygen Flow Rate (L/min) 2 Pulse Oximetry (90-100 %) 92 94 Pulse Rate (60-100 beats/min) 96 82 Ambulation Distance (feet) 200 Ambulation Distance (meters) 60.95 Home Oxygen Evaluation Comments Pt requires 2 l with activity Treatment Charges
--- NOTE | 2021-06-03 06:33 | WPDPFTINT ---
PFT Procedure Performed PFT Procedure Performed Spirometry with Pre/Post Bronchodilator Plethysmography (Lung Vol) Diffusing Cap (DLCO) Flow Vol Loop PFT Interpretation This is a pulmonary function test with pre and post-bronchodilator spirometry, plethysmography and diffusing capacity. The test was performed and results interpreted in accordance with the 2019 and 2005 ATS/ERS Task Force guidelines respectively using the Global Lung Function Initiative-2012 reference equations. Patient demonstrated good effort and cooperation. Reproducibility criteria were met. The quality of the pre bronchodilator spirometry maneuver was Grade A and post bronchodilator spirometry maneuver was Grade A. Findings: Spirometry: There is decreased maximal expiratory airflow at all lung volumes with concave expiratory flow tracing. The contour the inspiratory flow tracing is normal. The pre bronchodilator FVC see is 1.63 L, 67% predicted. The pre bronchodilator FEV1 is 0.98 L, 53% predicted. The pre bronchodilator FEV1: FVC ratio 60%. The post bronchodilator FVC is 1.73 L, representing a 6% increase. The post bronchodilator FEV1 is 1.03 L, representing a 4% increase. The post bronchodilator FEV1: FVC ratio was 60%. Plethysmography: The total lung capacity is 4.31 L, 91% predicted. Functional residual capacity is 2.95 L, 109% predicted. The residual volume is 2.67 L, 121% predicted. Diffusing capacity: The diffusing capacity on adjusted for hemoglobin and carboxyhemoglobin is 12.9, 68% predicted. The diffusing capacity adjusted for alveolar volume is 5.18, 121% predicted. Impression: There is a moderately severe obstructive abnormality without significant improvement after inhaling a single dose of albuterol. Lung volumes are normal. The diffusing capacity is normal. There are no prior studies for comparison
== END 2021-06-02 12:33 | disposition home or self-care (01) ==
LOC: ANHPFT 12:34
PROVIDERS: Visit Provider Internal Medicine Pulmonary Disease
DX: R06.00 Dyspnea, unspecified (principal); J44.9 Chronic obstructive pulmonary disease, unspecified; R94.2 Abnormal results of pulmonary function studies
CPT/HCPCS: 94060; 94618; 94726; 94729

== ENCOUNTER 2021-06-13 07:54 | Outpatient (CLI) | payer MEDICARE, SELFPAY ==
--- NOTE | 2021-06-23 09:53 | WPDSLEEPSTUD ---
Sleep Study Date of Study: 06/13/21 Ordering Provider: Irineo Rivas MD Interpreting Physician: Laurie Cardenas MD Sleep Study Type: Polysomnogram Height: 1.57 m Weight: 90.718 kg Body Mass Index: 36.6 Neck Circumference (inches): 17 [place]: 6 Reason for Sleep Study Chronically tired; her cleaner and preparer wanted her to have evaluation for suspected sleep apnea Prior history of obstructive sleep apnea, intolerant to CPAP * 10/19/2019 - office note from her ENT doctor with an HSAT with [facility] 14 and in-lab study but the results are not available in scanned records. * 05/16/2021 - nocturnal oximetry on room air, lowest desaturation 72%, oxygen desaturation 21 events per hour consistent with obstructive sleep apnea, and 267 minutes below 88% saturation Sleep History Rula Goldstein is a 75 year old female with COPD on oxygen, 2 L/min with exertion. She has chronic pain. 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 She says that she sleeps better in the day than at night. She reports always snoring, although no snoring was heard on this study. She does not awaken from sleep feeling short of breath or awaken at night with heartburn, belching or coughing. She constantly snores and it is loud enough that others complain about it. She occasionally has trouble sleeping with a cold. She does not wake up gasping for breath at night or have breathing problems at night reported to her by others. She does not sweat excessively at night. She does not notice her heart pounding or beating irregularly at night. She constantly falls asleep involuntarily. She denies falling asleep while driving. she does not have loss of muscle tone with strong emotion. She does not have daytime difficulties due to excessive sleepiness. She does not feel paralyzed on waking or falling asleep. She denies having vivid dreamlike scenes upon awakening or falling asleep. She does not feel afraid to go to sleep. She denies having nightmares. She constantly remembers her dreams. She constantly has racing thoughts and feelings of sadness or depression. She denies having any anxiety. She does not have muscular tension. She constantly kicks at night and constantly has crawling and aching feelings in her legs. She constantly has leg pain during the night. She does not have morning jaw pain. She does not grind her teeth during sleep. She constantly is bothered by pain during the day, constantly awakened by pain at night. She constantly wakes up feeling stiff in the morning with sore achy muscles and pain in the neck and spine. She has fatigue and insomnia. She reports gaining weight this year. Normal bedtime is variable, and depends on how she feels. in general she reports sleeping better during the day than at night. Sometimes she is up all night. She wakes up multiple times during the night. She may stay awake for a few minutes or as long as a few hours. She always needs to urinate when waking at night. She naps frequently during the day although naps are not refreshing. She is tired all the time. Habits: She is a former smoker. Caffeine 2 cups a day. No alcohol or recreational drugs. [facility] Past Medical History Medical History Adult BMI 30+ Asthma-COPD overlap syndrome PFTs 06/03/2021: Moderately severe obstructive abnormality without significant improvement with bronchodilator. Diffusion capacity normal. Lung volumes normal. Cancer of left breast Colon polyps Degenerative joint disease of knee Depression with anxiety Diabetic peripheral neuropathy Diverticulitis Hypertension Hypothyroidism (acquired) Insulin dependent type 2 diabetes mellitus Hemoglobin A1c 10.02 April 2020 Obesity Obstructive sleep apnea Intolerant to CPAP. Osteopenia Paroxysmal atrial fibrillation (~12/2020) Echocardiogram 12/2020:
[2021-06-23 11:10] VITALS: BMI 36.6
== END 2021-06-14 07:30 | disposition home or self-care (01) ==
LOC: ANHCSM 07:54
PROVIDERS: PCP Family Medicine; Visit Provider Internal Medicine Pulmonary Disease
DX: G47.10 Hypersomnia, unspecified (principal)
CPT/HCPCS: 95810

== ENCOUNTER 2021-06-15 18:00 | Emergency (ER) | payer MEDICARE, SELFPAY ==
[2021-06-15 18:06] VITALS: BP 144/73; PULSE 103; RESP 20; TEMP 36.8; O2SAT 100
--- NOTE | 2021-06-15 18:28 | ED.SKABFB ---
HPI - Skin/Abscess/Foreign Bdy General Chief complaint: Skin/Abscess/Foreign Body <Cristina Castro PA-C - Last Filed: 06/15/21 19:21> Stated complaint: RIDE SIDED FACIAL INFECTION <Cristina Castro PA-C - Last Filed: 06/15/21 19:21> Time Seen by Provider: 06/15/21 18:09 <Cristina Castro PA-C - Last Filed: 06/15/21 19:21> History of Present Illness HPI narrative: Patient is a 75-year-old female with a history of diabetes, recurrent abscesses on her face, sleep apnea who presents for evaluation of a lesion on her right cheek under her right orbit. Patient states the lesion began as a small pimple yesterday and has progressed in size today. States she usually sees Dr. Bear for incision and drainage of the lesion, but was unable to come in today due to the holiday. Additionally reports some right eye irritation with swelling under her right eye. Denies fevers, chills, nausea, vomiting, blurry vision, double vision, pain with extraocular movements. <Cristina Castro PA-C - Last Filed: 06/15/21 19:21> Related Data Home medications: Home Medications Medication Instructions Recorded Confirmed omeprazole 20 mg capsule,delayed 20 mg PO HS 01/10/19 06/11/21 release budesonide-formoterol [Symbicort] 2 puff INHALATION BID 11/17/19 06/11/21 metoprolol succinate 25 mg PO HS 11/17/19 06/11/21 albuterol sulfate [Ventolin HFA] 90 mcg INHALATION PRN PRN 12/04/19 06/11/21 rosuvastatin 10 mg PO HS 12/04/19 06/11/21 folic acid 1 mg tablet 1 mg PO DAILY 05/07/20 06/11/21 methotrexate sodium 5 mg tablet 2.5 mg PO WEEKLY 09/30/20 06/11/21 duloxetine 30 mg PO DAILY 10/04/20 06/11/21 Xiidra 1 drp EACH EYE BID 10/05/20 06/11/21 cholecalciferol (vitamin D3) 50 mcg PO QNOON 10/05/20 06/11/21 [Vitamin D3] cyanocobalamin (vitamin B-12) 5,000 mcg PO QNOON 10/05/20 06/11/21 cetirizine [Allergy Relief 10 mg PO DAILY 01/12/21 06/11/21 (cetirizine)] hydrochlorothiazide 25 mg PO DAILY 01/12/21 06/11/21 <Cristina Castro PA-C - Last Filed: 06/15/21 19:21> Allergies/Adverse reactions: Allergies Allergy/AdvReac Type Severity Reaction Status Date / Time shellfish derived Allergy Severe HIVES/RASH Verified 06/15/21 18:12 shrimp Allergy Severe RASH/HIVES Verified 06/15/21 18:12 celecoxib Allergy Intermediate RASH/HIVES Verified 06/15/21 18:12 fish oil Allergy Intermediate RASH/HIVES Verified 06/15/21 18:12 metformin Allergy Unknown Chest Pain Verified 06/15/21 18:12 Contrast Media Allergy Intermediate NAUSEA, Uncoded 06/15/21 18:12 HOT FLASHES, DYSPNEA <Cristina Castro PA-C - Last Filed: 06/15/21 19:21> Review of Systems Review of Systems: Gen: Denies fevers or chills Eyes: Reports right eye pain. Denies visual change ENT: Denies congestion Respiratory: Denies shortness of breath or cough CV: Denies chest pain or palpitations GI: Denies abdominal pain nausea, emesis or diarrhea : denies burning, urgency, frequency or hematuria Musculoskeletal: Denies back pain or muscle pain Neuro: Denies numbness, tingling, weakness or focal weakness Skin: Reports lesion under right eye Except as documented, all other systems reviewed and negative <Cristina Castro PA-C - Last Filed: 06/15/21 19:21> [facility] Past Medical History Medical History: Medical History Cancer of left breast Chronic obstructive pulmonary disease Colon polyps Degenerative joint disease of knee Depression with anxiety Diabetic peripheral neuropathy Diverticulitis Hypertension Hypothyroidism Insulin dependent type 2 diabetes mellitus Obesity Obstructive sleep apnea Intolerant to CPAP. Osteopenia Rheumatoid arthritis Vitiligo <HASMUKH Brewer Last Filed: 06/15/21 19:21> Surgical History Surgical History: Surgical History History of appendec
[2021-06-15] MEDS: DOXYCYCLINE HYCLATE 100 MG TABLET PO (19:19)
== END 2021-06-15 19:33 | disposition home or self-care (01) ==
PROVIDERS: Emergency Provider Emergency Medicine; PCP Family Medicine
DX: L03.211 Cellulitis of face (principal); J44.9 Chronic obstructive pulmonary disease, unspecified; E11.42 Type 2 diabetes mellitus with diabetic polyneuropathy; I10 Essential (primary) hypertension; E66.9 Obesity, unspecified; G47.33 Obstructive sleep apnea (adult) (pediatric); M85.80 Other specified disorders of bone density and structure, unspecified site; M06.9 Rheumatoid arthritis, unspecified; E89.0 Postprocedural hypothyroidism; Z85.3 Personal history of malignant neoplasm of breast; Z86.010 Personal history of colon polyps; Z98.42 Cataract extraction status, left eye; Z98.41 Cataract extraction status, right eye; Z98.1 Arthrodesis status; Z90.12 Acquired absence of left breast and nipple; Z87.891 Personal history of nicotine dependence; Z79.4 Long term (current) use of insulin; Z79.01 Long term (current) use of anticoagulants
CPT/HCPCS: 99283; A9270

== ENCOUNTER 2021-06-17 17:35 | Inpatient (IN) | payer MEDICARE, SELFPAY ==
[2021-06-17] VITALS (34 sets, daily range): BP systolic 99–183; BP diastolic 61–162; PULSE 111–172; RESP 17–30; TEMP 36.1; O2SAT 91–100
--- NOTE | ~2021-06-17 | CT_ITS ---
EXAMINATION: CT facial bones wo con DATE: 06/17/2021 20:33 INDICATION: evaluate for abscess . Right facial skin infection, possible abscess. Right orbital edema , eyes swollen shut. Contrast media allergy. TECHNIQUE: Computed tomography (CT) of the facial bones and maxillofacial region was performed withou t intravenous contrast. Automated exposure control and iterative reconstruction technique were employ ed. The dose-length product was 421.14 mGy-cm. COMPARISON: None. FINDINGS: Soft Tissues: Soft tissue swelling and subcutaneous stranding over the right frontotemporal region a nd right orbit. Eyelid edema. Facial bones: No acute fracture. No lytic or blastic process. Eyes: The globes are intact. No postseptal extension. The soft tissue planes of the orbits are maint ained. Bilateral symmetric proptosis. Paranasal Sinuses: The visualized aerated spaces are clear. Foreign Bodies: No radiopaque foreign bodies. Other Findings: None. IMPRESSION: Right facial and periorbital cellulitis. No postseptal extension. No abscess detected in this noncont rast examination. Reviewed, dictated and finalized at location K. IMPRESSION: Right facial and periorbital cellulitis. No postseptal extension. No abscess de tected in this noncontrast examination.
--- NOTE | 2021-06-17 18:32 | ECG_ITS ---
Measurements Intervals [place] Rate: 157 P: PA: 0 QRS: 25 QRSD: 89 T: 94 QT: 290 QTc: 470 Interpretive Statements ATRIAL FLUTTER/TACHYCARDIA WITH RAPID VENTRICULAR RESPONSE WITH ABERRANT CONDUCTION OR VENTRICULAR PREMATURE COMPLEXES NONSPECIFIC T-WAVE ABNORMALITY COMPARED TO ECG 01/17/2021 09:30:09 ATRIAL FLUTTER NOW PRESENT, REPLACES SINUS RHYTHM Electronically Signed On 06-18-2021 11:42:03 CDT by Irineo Poole M.D.
--- NOTE | 2021-06-17 18:55 | ED.EYEPROB ---
HPI - Eye Problem General Chief complaint: Eye Problems Stated complaint: facial pain and swelling - infection Time Seen by Provider: 06/17/21 18:27 History of Present Illness HPI Narrative: 75-year-old female presents to the emergency room with complaints of a right facial abscess and associated swelling. Patient states that she was here 2 days ago for similar symptoms and had an ultrasound performed that showed no drainable abscess at that time. Patient was sent home on a course of doxycycline. Patient states that she took 2 doses, and caused her to have nausea so she stopped. Patient presents today with increased swelling and redness surrounding her abscess. Related Data Home Medications Medication Instructions Recorded Confirmed omeprazole 20 mg capsule,delayed 20 mg PO HS 01/10/19 06/11/21 release budesonide-formoterol [Symbicort] 2 puff INHALATION BID 11/17/19 06/11/21 metoprolol succinate 25 mg PO HS 11/17/19 06/11/21 albuterol sulfate [Ventolin HFA] 90 mcg INHALATION PRN PRN 12/04/19 06/11/21 rosuvastatin 10 mg PO HS 12/04/19 06/11/21 folic acid 1 mg tablet 1 mg PO DAILY 05/07/20 06/11/21 methotrexate sodium 5 mg tablet 2.5 mg PO WEEKLY 09/30/20 06/11/21 duloxetine 30 mg PO DAILY 10/04/20 06/11/21 Xiidra 1 drp EACH EYE BID 10/05/20 06/11/21 cholecalciferol (vitamin D3) 50 mcg PO QNOON 10/05/20 06/11/21 [Vitamin D3] cyanocobalamin (vitamin B-12) 5,000 mcg PO QNOON 10/05/20 06/11/21 cetirizine [Allergy Relief 10 mg PO DAILY 01/12/21 06/11/21 (cetirizine)] hydrochlorothiazide 25 mg PO DAILY 01/12/21 06/11/21 Allergies Allergy/AdvReac Type Severity Reaction Status Date / Time shellfish derived Allergy Severe HIVES/RASH Verified 06/15/21 18:12 shrimp Allergy Severe RASH/HIVES Verified 06/15/21 18:12 celecoxib Allergy Intermediate RASH/HIVES Verified 06/15/21 18:12 fish oil Allergy Intermediate RASH/HIVES Verified 06/15/21 18:12 metformin Allergy Unknown Chest Pain Verified 06/15/21 18:12 Contrast Media Allergy Intermediate NAUSEA, Uncoded 06/15/21 18:12 HOT FLASHES, DYSPNEA PMFSH Past Medical History Medical History Cancer of left breast Chronic obstructive pulmonary disease Colon polyps Degenerative joint disease of knee Depression with anxiety Diabetic peripheral neuropathy Diverticulitis Hypertension Hypothyroidism Insulin dependent type 2 diabetes mellitus Obesity Obstructive sleep apnea Intolerant to CPAP. Osteopenia Rheumatoid arthritis Vitiligo Surgical History Surgical History History of appendectomy History of bilateral cataract extraction History of cardiac catheterization Unremarkable per patient report. History of cholecystectomy History of colonoscopy with polypectomy History of fusion of cervical spine History of hysterectomy History of incision and drainage (05/2018) Right cheek abscess. History of left mastectomy History of thyroidectomy Family History Family History Father Diabetes mellitus Hypertension Cerebrovascular accident Family history of malignant melanoma Mother Diabetes mellitus Hypertension Family history of lung cancer Sibling Family history of malignant melanoma Other Family history of cardiovascular disease Family history of malignant neoplasm Malignant neoplasm of prostate Social History Social History Social History: Surrogate decision maker: Smith Goldstein, . Code status: Full code. Smoking packs per day: 3 Smoking cigarettes per day: 60.0 Years smoked: 39 Smoking pack-years: 117.00 Smoking status: Former smoker Tobacco type: cigarettes Second hand tobacco smoke exposure: Yes Smoking end date: 03/01/98 Alcohol intake: never Substance use: never Substance use typ
[2021-06-17 19:07] LABS: Lactic Acid Reflex 2.6 mmol/L (0.7-2.1)
[2021-06-17 19:26] LABS: Alanine Aminotransferase 27 U/L (4-35); Alkaline Phosphatase 101 U/L (38-126); Anion Gap 9 mmol/L (8-16); Aspartate Amino Transferase 31 U/L (14-36); Bilirubin,Total 1.7 mg/dL (0.2-1.3); Blood Urea Nitrogen 18 mg/dL (7-17); Calcium 8.4 mg/dL (8.4-10.2); Carbon Dioxide 32 mmol/L (22-30); Chloride 89 mmol/L (98-107); Estimated CRCL calculation 60 ml/min; Estimated Glomerular Filt Rate > 60; Glucose 461 mg/dL (65-110); Potassium 3.8 mmol/L (3.4-5.0); Sodium 130 mmol/L (137-145)
[2021-06-17 19:34] LABS: Basophils Absolute Auto 0.1 K/mm3 (0.0-0.1); Basophils Percent Auto 0.3 % (0.2-1.2); Hematocrit 45.6 % (37.0-47.0); Hemoglobin 14.7 g/dL (12.0-15.0); Immature Granulocyte Absolute 0.33 K/mm3 (0.00-0.031); Immature Granulocyte Percent A 1.5 % (0-0.5); Lymphocytes Absolute Auto 2.65 K/mm3 (0.9-3.2); Lymphocytes Percent Auto 12.4 % (18.3-44.2); Mean Corpuscular HGB Conc 32.2 g/dl (32-36); Mean Corpuscular Hemoglobin 30.8 pg (26-34); Mean Corpuscular Volume 95.4 fl (80-100); Mean Platelet Volume 10.1 fl (7.4-10.4); Monocytes Absolute Auto 1.9 K/mm3 (0.1-0.6); Monocytes Percent Auto 9.1 % (2.6-8.5); Neutrophils Absolute Auto 16.4 K/mm3 (1.3-6.7); Neutrophils Percent Auto 76.7 % (45.5-73.1); Platelet Count Result 402 k/mm3 (150-375); Red Blood Count 4.78 M/mm3 (4.2-5.4); Red Cell Distribution Width 14.6 % (11.5-14.5); White Blood Count 21.4 K/mm3 (4.5-10.0)
[2021-06-17 19:43] LABS: Troponin I 0.147 ng/mL (0.000-0.034)
[2021-06-17 19:50] LABS: Platelet Estimate Increased (Adequate); Stomatocytes 1+ (NORMAL)
[2021-06-17] MEDS: dilTIAZem HCl INJ 25 MG/5 ML VIAL 10 MG IV PUSH (19:57)
[2021-06-17] MEDS: dilTIAZem 100 MG/100 ML 100 MG/100 ML BAG IV CONT (19:59)
[2021-06-17 21:56] LABS: Reflex Lactic Acid Yes or No Add Lactic
--- NOTE | 2021-06-17 22:02 | PM.IMHP ---
H&P: HPI History of Present Illness Date/Time: 06/17/21 22:02 Chief Complaint: Worsening facial infection Narrative: 75 year female with a past medical history of multiple prior skin abscesses, as poorly controlled diabetes mellitus, hypertension, hypothyroidism, rheumatoid arthritis, COPD and obesity who presented to the ER via private vehicle due to worsening skin infection the right side her face. The patient was evaluated in the ER 06/15/2021 due to an area of cellulitis on her right cheek associated with a central wound with scabbing. The patient did not have labs performed at that time. A bedside ultrasound had been performed on that day which demonstrated no drainable abscess. The patient was discharged home on doxycycline. The patient was referred to Dr. Bear as outpatient for further evaluation if the lesion persisted as the patient has had multiple episodes of abscesses and needed to be drained by Plastic surgery. The patient has had marked increase in swelling since the . She has had increased erythema and her eyes now so swollen that she can barely open her eye. She has noticed some purulent drainage from her eyelids. She also reports some tenderness in the submandibular region on palpation she has also had accompanied symptoms active fevers. When her would check her temperature her temperature would be normal. She was also having intermittent sweats. She reported that she felt so ill that she has not been getting out of bed. She has been taking her long-acting insulin at her Xarelto but has not been taking the remainder of her home medications. Her glucoses have been in the 300-400s. She reports that she takes up to 56 units Humalog if her sugars are above 200. She does have a known history of atrial fibrillation. She never feels when her heart rate is elevated. She denies any palpitations or increased shortness of breath. She denies any chest pain. She has chronic urge urinary incontinence. She denies any dysuria or hematuria. On arrival to ER patient was noted to be in atrial fibrillation with RVR. She denies any increased lower extremity swelling. Review of Systems Review of Systems: 12 systems were reviewed with pertinent positives and negatives per HPI. Except as documented in the HPI, all other systems were reviewed and are negative. [facility] Past Medical History Medical History (Updated 06/18/21 @ 02:20 by Eloise Nettles DO) Adult BMI 30+ Asthma-COPD overlap syndrome PFTs 06/03/2021: Moderately severe obstructive abnormality without significant improvement with bronchodilator. Diffusion capacity normal. Lung volumes normal. Cancer of left breast Colon polyps Degenerative joint disease of knee Depression with anxiety Diabetic peripheral neuropathy Diverticulitis Hypertension Hypothyroidism (acquired) Insulin dependent type 2 diabetes mellitus Hemoglobin A1c 10.02 April 2020 Obesity Obstructive sleep apnea Intolerant to CPAP. Osteopenia Paroxysmal atrial fibrillation (~12/2020) Echocardiogram 12/2020: Normal left ventricular systolic function EF 65-70%, mildly increased left ventricular wall thickness, diastolic function abnormal, global longitudinal strain abnormal at -15%, left atrial chamber mildly enlarged, mild mitral valve regurgitation, mild tricuspid regurgitation Rheumatoid arthritis Vitiligo Surgical History Surgical History History of appendectomy History of bilateral cataract extraction History of cardiac catheterization Unremarkable per patient report. History of cholecystectomy History of colonoscopy with polypectomy History of fusion of cervical spine History of hysterectomy History of incision and drainage (05/2018) Right cheek abscess. History of left mastectomy History of thyroidectomy Family History Family History Father Diabetes mellitus Hypertension
[2021-06-17] MEDS: SODIUM CHLORIDE 0.9% IV 1,000 ML 999 ML IV CONT ×3 (22:07→23:49)
[2021-06-17] MEDS: INSULIN HUMAN REGULAR (*BKC) 100 UNITS/ML 20 UNITS SUB-Q (22:18)
[2021-06-17 22:23] LABS: Glucose Point of Care 386 mg/dl (65-105)
[2021-06-17] MEDS: ceFAZolin 2 GM/D5W 50 ML 2 GM/50 ML BAG IVPB (23:49)
[2021-06-18] VITALS (23 sets, daily range): BP systolic 119–160; BP diastolic 41–72; PULSE 83–141; RESP 18–20; TEMP 36–36.9; O2SAT 91–97; BMI 36.6
--- NOTE | 2021-06-18 | ECHO_ITS ---
Patient Info Name: Rula Goldstein Age: 75 years : 1945 Gender: Female Ht: 62 in Wt: 201 lbs BSA: 2.04 m2 HR: 102 bpm BP: 132 / 41 mmHg Heart Rhythm: Sinus Rhythm, Tachycardia Exam Date: 06/18/2021 1:29 PM Exam Location: [facility] Patient Status: Inpatient Admit Date: 06/17/2021 Staff Ordering Physician: Yesi Ratliff M.A., MD Linotypist: Kin Clayton RDCS, RT Attending Provider: Eloise Nettles DO Referring Physician: Isidro PRASAD; Exam Type: CA echo doppler color flow Study Info Indications I50.9 - Heart failure, unspecified Complete two-dimensional, color flow and Doppler transthoracic echocardiogram is performed. Summary 1. Complete two-dimensional, color flow and Doppler transthoracic echocardiogram is performed. 2. Technically difficult study with limited views. Regional wall motion assessment limited due to poor endomyocardial border definition. 3. Left ventricular chamber dimension is normal. 4. Left ventricular systolic function is hyperdynamic, estimated at >70%. 5. There is mildly increased left ventricular wall thickness. 6. The left ventricular diastolic function is grade I diastolic dysfunction. 7. Left atrial chamber dimension is mildly enlarged. 8. There is a small pericardial effusion with fibrinous material within the pericardial space. Left Ventricle Left ventricular chamber dimension is normal. Left ventricular systolic function is hyperdynamic, estimated at >70%. There is mildly increased left ventricular wall thickness. The left ventricular diastolic function is grade I diastolic dysfunction. Technically difficult study with limited views. Regional wall motion assessment limited due to poor endomyocardial border definition. Right Ventricle Right ventricular chamber dimension is normal. Right ventricular systolic function is normal. Left Atria Left atrial chamber dimension is mildly enlarged. Right Atria Right atrial chamber dimension is normal. Aortic Valve The aortic valve is not well visualized. There is no aortic valve stenosis. Pulmonic Valve The pulmonic valve is not well visualized. Mitral Valve The mitral valve has normal leaflets. There is trace mitral valve regurgitation. The mitral valve annulus is mildly calcified. Tricuspid Valve The tricuspid valve leaflets are normal. There is trace tricuspid valve regurgitation. Unable to estimate PA systolic pressure due to poor spectral resolution of tricuspid regurgitant jet velocity. Pericardium/Pleural The pericardium appears normal. There is a small pericardial effusion with fibrinous material within the pericardial space. Aorta The aortic root size at the sinus of Valsalva is normal. The prox ascending aorta size is normal. Left Ventricular Outflow Tract Name Value Normal LVOT 2D LVOT Diameter 2.1 cm LVOT Doppler LVOT Peak Gradient 2 mmHg LVOT Mean Gradient 1 mmHg LVOT VTI 13 cm LVOT VTI/AV VTI Ratio 0.6 LVOT Stroke Volume 47
--- NOTE | 2021-06-18 00:25 | ADMGEN ---
This patient, Rula Goldstein, was admitted to IMU Room 203-01 at 0023. Patient/family oriented to hospital policies and general routines including ID bracelet, bed and alarms, visiting hours, pain management, procedures, bathroom and other care routines, personal items, smoking policy, room service/diet, and visiting hours. Information on how to activate the Rapid Response Team has been discussed. Patient/Family are encouraged to report perceived risks to care and to ask questions if they do not understand what they are told or what they should do.
[2021-06-18] MEDS: SODIUM CHLORIDE 0.9% IV 1,000 ML 125 ML IV CONT ×2 (01:52→19:48)
[2021-06-18] MEDS: dilTIAZem 100 MG/100 ML 100 MG/100 ML BAG 10 MG IV CONT (01:52)
[2021-06-18 02:10] LABS: Glucose Point of Care 188 mg/dl (65-105)
[2021-06-18 02:18] LABS: Lactic Acid Reflex 1.1 mmol/L (0.7-2.1)
[2021-06-18 02:39] LABS: Troponin I 0.189 ng/mL (0.000-0.034)
[2021-06-18] MEDS: METOPROLOL SUCCINATE EXT REL 25 MG TABCR PO ×2 (03:01→20:05)
--- NOTE | 2021-06-18 04:32 | ECG_ITS ---
Measurements Intervals [place] Rate: 87 P: 61 [place]: 240 QRS: 15 QRSD: 91 T: 170 QT: 393 QTc: 474 Interpretive Statements SINUS RHYTHM WITH FIRST DEGREE AV BLOCK CANNOT RULE OUT SEPTAL MYOCARDIAL INFARCTION , OF INDETERMINATE AGE [40+ ms Q WAVE IN V1/V2] MODERATE T-WAVE ABNORMALITY, CONSIDER LATERAL ISCHEMIA [-0.1+ mV T WAVE IN I/aVL/V5/V6] ABNORMAL ECG COMPARED TO ECG 06/17/2021 18:34:47 SINUS RHYTHM HAS REPLACED ATRIAL FLUTTER WITH RAPID VENTRICULAR RESPONSE Electronically Signed On 06-18-2021 17:54:10 CDT by Rob Singer M.D.
[2021-06-18] MEDS: LEVOTHYROXINE SODIUM 125 MCG TABLET PO (05:49)
[2021-06-18 08:30] LABS: Glucose Point of Care 88 mg/dl (65-105)
[2021-06-18] MEDS: UMECLIDINIUM BROMIDE 62.5 MCG ELLIPTA 1 PUFF INHALATION (09:16)
[2021-06-18] MEDS: FLUTICASONE/SALMETEROL 115-21 MCG INHALER 1 PUFF 2 PUFF INHALATION ×2 (09:16→20:49)
[2021-06-18] MEDS: FOLIC ACID 1 MG TABLET PO (10:38)
[2021-06-18] MEDS: CHOLECALCIFEROL 1,000 UNITS TABLET 2000 UNITS PO (10:38)
[2021-06-18] MEDS: LORATADINE 10 MG TABLET PO (10:39)
[2021-06-18] MEDS: LOSARTAN POTASSIUM 50 MG TABLET PO (10:39)
[2021-06-18] MEDS: hydroCHLOROthiazide 25 MG TABLET PO (10:39)
[2021-06-18] MEDS: predniSONE 5 MG TABLET PO (10:39)
[2021-06-18] MEDS: DULoxetine HCL 30 MG CAPSULE.DR PO (10:39)
--- NOTE | 2021-06-18 11:11 | PM.IMPN ---
Progress Note: A&P Assessment and Plan (1) Severe sepsis: Code(s): A41.9 - Sepsis, unspecified organism; R65.20 - Severe sepsis without septic shock Status: Acute Assessment and Plan: Secondary to cellulitis started IV Unasyn and IV vancomycin follow culture results (2) Cellulitis and abscess of face: Code(s): L03.211 - Cellulitis of face; L02.01 - Cutaneous abscess of face Status: Acute Assessment and Plan: Unlikely patient has abscess continue to monitor reviewed CT scan Re-evaluate in a.m. (3) Atrial fibrillation with rapid ventricular response: Code(s): I48.91 - Unspecified atrial fibrillation Status: Acute Assessment and Plan: Status post Cardizem drip Resume oral Cardizem Continue tele monitor (4) Type 2 diabetes mellitus with hyperglycemia, with long-term current use of insulin: Code(s): E11.65 - Type 2 diabetes mellitus with hyperglycemia; Z79.4 - [facility] (current) use of insulin Status: Acute Assessment and Plan: Complicated management as patient has sepsis and inconsistent oral intake I decreased the dose of Lantus also I decreased the dose of lispro Continue sliding scale insulin (5) Elevated troponin: Code(s): R77.8 - Other specified abnormalities of plasma proteins Status: Acute Assessment and Plan: Follow echo results (6) Hypothyroidism (acquired): Code(s): E03.9 - Hypothyroidism, unspecified Status: Acute Assessment and Plan: Continue home medication Subjective Date/time seen: 06/18/21 11:11 Interval history: 75 year female with a past medical history of multiple prior skin abscesses, as poorly controlled diabetes mellitus, hypertension, hypothyroidism, rheumatoid arthritis, COPD and obesity who presented to the ER via private vehicle due to worsening skin infection the right side her face. The patient was evaluated in the ER 06/15/2021 due to an area of cellulitis on her right cheek associated with a central wound with scabbing. Was treated with oral antibiotics patient condition continued to worsen at the ER patient was found to have sepsis AFib with RVR treated with IV antibiotics Cardizem drip admitted to the hospital for further evaluation and treatment during hospitalization patient developed abdominal pain nausea probable gastroparesis versus gastritis started IV Protonix and ordered 3 doses of currently patient on large dose of insulin complicated management as inconsistent oral intake and infection complicated the management of diabetes Patient feels weak today complains of epigastric pain pain and nausea Patient denies fever headache chest pain shortness of breath I am seeing the patient for cellulitis Exam Narrative: Alert Chest no wheeze crackles Abdomen nontender nondistended CVS S1 + S2 Scan significant rash in the preseptal area periorbital area of the right eye, eye movement and vision is intact Lower extremity edema Objective Data Vital Signs Vital Signs: Vital Signs - 24 hr 06/17/21 18:07 06/17/21 18:33 06/17/21 18:34 Temperature 97.0 F L Pulse Rate 151 H 165 H 159 H Respiratory Rate 19 29 H 22 H Blood Pressure 138/61 108/90 Pulse Oximetry 95 92 96 06/17/21 18:45 06/17/21 18:51 06/17/21 19:05 Temperature Pulse Rate 151 H 165 H Respiratory Rate 18 22 H Blood Pressure Pulse Oximetry 97 94 97 06/17/21 19:15 06/17/21 19:18 06/17/21 19:30 Temperature Pulse Rate 166 H 166 H 165 H Respiratory Rate 21 H 24 H 30 H Blood Pressure 131/72 Pulse Oximetry 97 97 06/17/21 19:45 06/17/21 19:59 06/17/21 20:02 Temperature Pulse Rate 150 H 165 H 160 H Respiratory Rate 23 H 20 Blood Pressure 150/117 H Pulse Oximetry 94 06/17/21 20:06 06/17/21 20:10 06/17/21 20:11 Temperature Pulse Rate 167 H 125 H 128 H Respiratory Rate 25 H 22 H 20 Blood Pressure 127/105 H 121/69 Pulse Oximetry 94 96 06/17/21 20:39 06/17/21 20:51 0
--- NOTE | 2021-06-18 11:18 | WPDCN ---
Assessment and Plan Assessment and plan (1) Cellulitis and abscess of face: Code(s): L03.211 - Cellulitis of face; L02.01 - Cutaneous abscess of face Status: Acute Assessment and Plan: Facial cellulitis with possible abscess in a poorly controlled diabetic. Improving on IV antibiotics. Will open the site where there is a scab and drain what can be found. Pt has consented. HPI Data of Consult Date/Time: 06/18/21 11:18 Requesting Physician: Eloise Nettles DO Primary Care Provider: David Pruitt MD Consult Narrative Narrative: Rula Goldstein is a 75 year old female with Diabetes admitted with a right facial cellulitis of approx 4 days duration. Had been in ED 2 days prior and discharged on Doxycycline. Condition worsened and she returned to the ED last night. CT of face did not reveal an abscess. There has been no drainage or I and D. She was started on Cefazolin and is improved today. The edema and erythema are markedly reduced. WBC from yesterday was around 21. Serum glucose from earlier visit was approx 400. She admits to not carefully treating her diabetes. Multiple other labs mildly abnormal. Feels better today. 117 PY former smoker. Troponin elevated and EKG suggests OH (Automated reading.) Pt is alert and agrees to I&D at the bedside under local. [facility] Past Medical History Medical History (Updated 06/18/21 @ 02:20 by Eloise Nettles DO) Adult BMI 30+ Asthma-COPD overlap syndrome PFTs 06/03/2021: Moderately severe obstructive abnormality without significant improvement with bronchodilator. Diffusion capacity normal. Lung volumes normal. Cancer of left breast Colon polyps Degenerative joint disease of knee Depression with anxiety Diabetic peripheral neuropathy Diverticulitis Hypertension Hypothyroidism (acquired) Insulin dependent type 2 diabetes mellitus Hemoglobin A1c 10.02 April 2020 Obesity Obstructive sleep apnea Intolerant to CPAP. Osteopenia Paroxysmal atrial fibrillation (~12/2020) Echocardiogram 12/2020: Normal left ventricular systolic function EF 65-70%, mildly increased left ventricular wall thickness, diastolic function abnormal, global longitudinal strain abnormal at -15%, left atrial chamber mildly enlarged, mild mitral valve regurgitation, mild tricuspid regurgitation Rheumatoid arthritis Vitiligo Surgical History Surgical History History of appendectomy History of bilateral cataract extraction History of cardiac catheterization Unremarkable per patient report. History of cholecystectomy History of colonoscopy with polypectomy History of fusion of cervical spine History of hysterectomy History of incision and drainage (05/2018) Right cheek abscess. History of left mastectomy History of thyroidectomy Family History Family History Father Diabetes mellitus Hypertension Cerebrovascular accident Family history of malignant melanoma Mother Diabetes mellitus Hypertension Family history of lung cancer Sibling Family history of malignant melanoma Other Family history of cardiovascular disease Family history of malignant neoplasm Malignant neoplasm of prostate Social History Social History (Updated 06/18/21 @ 02:18 by Eloise Nettles DO) Social History: Surrogate decision maker: Smith Goldstein, . Code status: Full code. Smoking packs per day: 3 Smoking cigarettes per day: 60.0 Years smoked: 39 Smoking pack-years: 117.00 Smoking status: Former smoker Second hand tobacco smoke exposure: Yes Additional smoking assessment comments: quit in 1998 Alcohol intake: never Substance use: never Substance use type: does not use Additional living arrangements comments: The patient lives in [place] with her . 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 Gen
[2021-06-18 11:31] LABS: Basophils Percent Auto 0.1 % (0.2-1.2); Hematocrit 30.6 % (37.0-47.0); Hemoglobin 9.8 g/dL (12.0-15.0); Immature Granulocyte Percent A 1.5 % (0-0.5); Lymphocytes Absolute Auto 2.19 K/mm3 (0.9-3.2); Mean Corpuscular Volume 96.8 fl (80-100); Mean Platelet Volume 9.4 fl (7.4-10.4); Monocytes Absolute Auto 1.1 K/mm3 (0.1-0.6); Monocytes Percent Auto 8.1 % (2.6-8.5); Neutrophils Absolute Auto 10.2 K/mm3 (1.3-6.7); Neutrophils Percent Auto 74.3 % (45.5-73.1); Platelet Count Result 238 k/mm3 (150-375); Red Blood Count 3.16 M/mm3 (4.2-5.4); Red Cell Distribution Width 14.4 % (11.5-14.5); White Blood Count 13.7 K/mm3 (4.5-10.0)
[2021-06-18 11:44] LABS: Alanine Aminotransferase 18 U/L (4-35); Albumin Level 2.7 g/dL (3.5-5.1); Alkaline Phosphatase 66 U/L (38-126); Anion Gap 6 mmol/L (8-16); Aspartate Amino Transferase 20 U/L (14-36); Bilirubin,Total 0.9 mg/dL (0.2-1.3); Blood Urea Nitrogen 13 mg/dL (7-17); Calcium 6.3 mg/dL (8.4-10.2); Carbon Dioxide 23 mmol/L (22-30); Chloride 108 mmol/L (98-107); Estimated CRCL calculation 100 ml/min; Estimated Glomerular Filt Rate > 60; Glucose 178 mg/dL (65-110); Potassium 2.7 mmol/L (3.4-5.0); Sodium 137 mmol/L (137-145)
--- NOTE | 2021-06-18 12:07 | P.OP_ITS ---
Procedure Note - Detailed Date of Procedure 06/18/21 Pre-op Diagnosis cellulitis possible abscess right cheek Post-op Diagnosis Other (Abscess right cheek) Procedure Performed I and D abscess right cheek Surgeon Forrest Bear MD Anesthesia Local Indications Cellulitis possible abscess of the right cheek improving on IV cefazolin Findings Early abscess right cheek Description of Procedure The patient had signed a consent for bedside treatment of this. The site was prepped with Betadine and locally anesthetized with 1% lidocaine with epinephrine. Satisfactory anesthesia was obtained. The area has a 1 cm s uperficial scab was debrided. The site was opened with a 15 blade. There was no crispin pus. We did not find a significant abscess cavity with obvious purulence. Nevertheless there was grover serous fluid that was easily expressed from much to the subcutaneous tissue. We were able to expand a small area cephalad and caudally. Approximately 1 in of iodoform gauze was placed there to retain the opening and allow drainage. Small dry gauze bandage applied. Tolerated well no culture was sent since she has responded to cefazolin. Estimated Blood Loss 1 Urine Output 300 Packing Yes (1 inch Iodoform gauze wick) Pathology None sent Complications No immediate complications Condition Stable Disposition No change
[2021-06-18 12:14] LABS: Glucose Point of Care 203 mg/dl (65-105)
[2021-06-18 13:02] LABS: Magnesium 1.5 mg/dL (1.6-2.3)
[2021-06-18] MEDS: AMPICILLIN SULB 3 GM/NS 100 ML 3 GM/100 ML VIAL IVPB ×2 (13:41→17:53)
[2021-06-18] MEDS: POTASSIUM CHLORIDE 20 MEQ TABLET 40 MEQ PO ×3 (13:42→20:05)
[2021-06-18] MEDS: INSULIN ASPART (*BKC) 100 UNITS/ML SUB-Q ×2 (13:43→16:38)
[2021-06-18] MEDS: SUCRALFATE 1 GM TABLET PO ×2 (13:45→16:38)
--- NOTE | 2021-06-18 16:25 | PM.CNCAR ---
Assessment and Plan Assessment and plan (1) Atrial flutter with rapid ventricular response: Code(s): I48.92 - Unspecified atrial flutter Status: Acute Assessment and Plan: Patient has a known history of paroxysmal atrial flutter with rapid ventricular response in which she is asymptomatic historically. Patient presented in atrial flutter with RVR spontaneously converted to sinus rhythm. She has been off her AV kaylin blocking agents for several days which likely explains recurrence and in conjunction with cellulitis and sepsis. She did not discontinue her Xarelto. Resume her home AV kaylin blocking agents including diltiazem and metoprolol. Telemetry. (2) Elevated troponin: Code(s): R77.8 - Other specified abnormalities of plasma proteins Status: Acute Assessment and Plan: Troponin elevated last hospitalization likely secondary to demand ischemia ablation to sepsis, atrial flutter with RVR and underlying CAD but not secondary to acute coronary syndrome and/or plaque rupture. Patient has no anginal symptoms. Given present circumstances will continue to monitor clinically may consider ischemic evaluation as an outpatient as appropriate. Patient also has a contrast allergy. Even if invasive angiography or were warranted and recommended she would need to be off systemic anticoagulation for 48 hours in order to proceed along with pretreatment with steroids. Furthermore, LV function preserved EF greater than 70% although regional wall motion assessment limited due to poor endomyocardial border definition. (3) CAD (coronary artery disease): Code(s): I25.10 - Atherosclerotic heart disease of [place] coronary artery without angina pectoris Status: Acute Assessment and Plan: History of [id number] nonobstructive CAD left heart catheterization 2018. Continue aggressive medical therapy (4) Cellulitis and abscess of face: Code(s): L03.211 - Cellulitis of face; L02.01 - Cutaneous abscess of face Status: Acute Assessment and Plan: IV antibiotics, supportive care per primary service and plastic surgery. (5) Severe sepsis: Code(s): A41.9 - Sepsis, unspecified organism; R65.20 - Severe sepsis without septic shock Status: Acute Assessment and Plan: Per primary service. As above. (6) Type 2 diabetes mellitus with hyperglycemia, with long-term current use of insulin: Code(s): E11.65 - Type 2 diabetes mellitus with hyperglycemia; Z79.4 - intermodal customer service (current) use of insulin Status: Acute Assessment and Plan: Management per primary service. (7) Chronic anticoagulation: Code(s): Z79.01 - intermodal customer service (current) use of anticoagulants Status: Acute Assessment and Plan: Continue Xarelto. Monitor for bleeding. History of Present Illness History of Present Illness Consult date/time: Date of service: 06/18/21 16:25 Cardiology consultation at the request of Dr. Ratliff of the [facility] service for opinion regarding atrial flutter with rapid ventricular response and elevated troponin. Requesting physician: Yesi Ratliff M.A., MD Consult reason: atrial fibrillation (Atrial flutter, elevated troponin) Reason For Visit: cellulitis Narrative: Patient is a 75-year-old female with a past medical history significant for type 2 diabetes mellitus, hypertension, hypothyroidism, COPD, rheumatoid arthritis, moderate nonobstructive CAD, paroxysmal atrial flutter on chronic anticoagulation who presented to the emergency department on 06/15 with cellulitis to right cheek related to local wound. Patient was discharged home on doxycycline. Apparently, patient has had multiple abscesses in the past requiring drainage with plastic surgery due to worsening erythema and swelling around her eye with difficulty opening her eyes she presented to the ER for evaluation. She admitted to some personal drainage from right eye in pain. Patient
[2021-06-18] MEDS: INSULIN ASPART (*BKC) 100 UNITS/ML 30 UNITS SUB-Q (16:38)
[2021-06-18] MEDS: RIVAROXABAN 20 MG TABLET PO (16:39)
[2021-06-18 17:45] LABS: Potassium 3.5 mmol/L (3.4-5.0)
[2021-06-18 18:37] LABS: Glucose Point of Care 306 mg/dl (65-105)
[2021-06-18 19:50] LABS: Glucose Point of Care 283 mg/dl (65-105)
[2021-06-18] MEDS: PANTOPRAZOLE SODIUM IV 40 MG VIAL IV PUSH (19:52)
[2021-06-18] MEDS: DULoxetine HCL 60 MG CAPSULE.DR PO (20:05)
[2021-06-18] MEDS: ROSUVASTATIN 10 MG TABLET PO (20:05)
[2021-06-18] MEDS: MONTELUKAST SODIUM 10 MG TABLET PO (20:06)
[2021-06-19] VITALS (19 sets, daily range): BP systolic 110–145; BP diastolic 41–77; PULSE 73–102; RESP 18–22; TEMP 35.7–36.7; O2SAT 91–99; BMI 39.1
[2021-06-19] MEDS: ALBUTEROL SULFATE (*SP) AEROSOL 1 PUFF 2 PUFF INHALATION ×3 (01:14→15:40)
[2021-06-19] MEDS: HYDROcodone/acetaminophen (*CRX) 5-325 MG TABLET 1 TAB PO (04:32)
[2021-06-19 04:51] LABS: Basophils Percent Auto 0.2 % (0.2-1.2); Hematocrit 32.5 % (37.0-47.0); Hemoglobin 10.6 g/dL (12.0-15.0); Immature Granulocyte Absolute 0.16 K/mm3 (0.00-0.031); Immature Granulocyte Percent A 1.2 % (0-0.5); Lymphocytes Absolute Auto 2.36 K/mm3 (0.9-3.2); Lymphocytes Percent Auto 17.8 % (18.3-44.2); Mean Corpuscular HGB Conc 32.6 g/dl (32-36); Mean Corpuscular Hemoglobin 31.2 pg (26-34); Mean Corpuscular Volume 95.6 fl (80-100); Mean Platelet Volume 9.6 fl (7.4-10.4); Monocytes Absolute Auto 1.2 K/mm3 (0.1-0.6); Monocytes Percent Auto 8.7 % (2.6-8.5); Neutrophils Absolute Auto 9.6 K/mm3 (1.3-6.7); Neutrophils Percent Auto 72.1 % (45.5-73.1); Platelet Count Result 265 k/mm3 (150-375); Red Cell Distribution Width 14.4 % (11.5-14.5); White Blood Count 13.3 K/mm3 (4.5-10.0)
[2021-06-19 05:00] LABS: Alanine Aminotransferase 21 U/L (4-35); Albumin Level 3.4 g/dL (3.5-5.1); Alkaline Phosphatase 92 U/L (38-126); Anion Gap 6 mmol/L (8-16); Aspartate Amino Transferase 22 U/L (14-36); Bilirubin,Total 0.7 mg/dL (0.2-1.3); Blood Urea Nitrogen 7 mg/dL (7-17); Calcium 7.6 mg/dL (8.4-10.2); Carbon Dioxide 26 mmol/L (22-30); Chloride 101 mmol/L (98-107); Estimated CRCL calculation 83 ml/min; Estimated Glomerular Filt Rate > 60; Glucose 243 mg/dL (65-110); Potassium 3.7 mmol/L (3.4-5.0); Sodium 133 mmol/L (137-145)
[2021-06-19 05:22] LABS: Troponin I 0.048 ng/mL (0.000-0.034)
[2021-06-19] MEDS: INSULIN ASPART (*BKC) 100 UNITS/ML 30 UNITS SUB-Q (06:23)
[2021-06-19] MEDS: LEVOTHYROXINE SODIUM 125 MCG TABLET PO (06:25)
[2021-06-19] MEDS: SUCRALFATE 1 GM TABLET PO (06:25)
[2021-06-19] MEDS: SODIUM CHLORIDE 0.9% IV 1,000 ML 125 ML IV CONT ×3 (06:27→23:15)
[2021-06-19] MEDS: AMPICILLIN SULB 3 GM/NS 100 ML 3 GM/100 ML VIAL IVPB ×5 (06:29→23:12)
[2021-06-19] MEDS: FLUTICASONE/SALMETEROL 115-21 MCG INHALER 1 PUFF 2 PUFF INHALATION ×2 (06:32→21:04)
[2021-06-19 07:55] LABS: Glucose Point of Care 204 mg/dl (65-105)
--- NOTE | 2021-06-19 08:00 | ECG_ITS ---
Measurements Intervals [place] Rate: 84 P: 75 NC: 243 QRS: 7 QRSD: 87 T: 75 QT: 403 QTc: 477 Interpretive Statements SINUS RHYTHM WITH FIRST DEGREE AV BLOCK CANNOT RULE OUT SEPTAL MYOCARDIAL INFARCTION , PROBABLY OLD [40+ ms Q WAVE IN V1/V2] ABNORMAL ECG COMPARED TO ECG 06/18/2021 04:40:[address] ABNORMALITIES IMPROVED Electronically Signed On 06-19-2021 16:55:45 CDT by Rob Singer M.D.
[2021-06-19] MEDS: predniSONE 5 MG TABLET PO (08:42)
[2021-06-19] MEDS: FOLIC ACID 1 MG TABLET PO (08:42)
[2021-06-19] MEDS: dilTIAZem HCL CD 180 MG CAP.ER.24H PO (08:42)
[2021-06-19] MEDS: LOSARTAN POTASSIUM 50 MG TABLET PO (08:42)
[2021-06-19] MEDS: hydroCHLOROthiazide 25 MG TABLET PO (08:42)
[2021-06-19] MEDS: DULoxetine HCL 30 MG CAPSULE.DR PO (08:42)
[2021-06-19] MEDS: PANTOPRAZOLE SODIUM IV 40 MG VIAL IV PUSH (08:43)
[2021-06-19] MEDS: INSULIN GLARGINE (*BKC) 100 UNITS/ML 60 UNITS SUB-Q (08:43)
[2021-06-19] MEDS: LORATADINE 10 MG TABLET PO (08:45)
[2021-06-19] MEDS: INSULIN ASPART (*BKC) 100 UNITS/ML SUB-Q ×3 (09:25→17:30)
--- NOTE | 2021-06-19 10:38 | PM.IMPN ---
Progress Note: A&P Assessment and Plan (1) Severe sepsis: Code(s): A41.9 - Sepsis, unspecified organism; R65.20 - Severe sepsis without septic shock Status: Acute Assessment and Plan: Secondary to cellulitis started IV Unasyn and IV vancomycin follow culture results Probably DC vancomycin and continue Unasyn in a.m. if culture continue to be negative (2) Cellulitis and abscess of face: Code(s): L03.211 - Cellulitis of face; L02.01 - Cutaneous abscess of face Status: Acute Assessment and Plan: Improved with IV antibiotic Surgery recommendation appreciated status post incision and drainage of 1 cm abscess on 06/18/2021 culture was not sent as patient has been already on antibiotic as per surgery (3) Atrial fibrillation with rapid ventricular response: Code(s): I48.91 - Unspecified atrial fibrillation Status: Acute Assessment and Plan: DC Cardizem drip Resume oral Cardizem Continue tele monitor Controlled (4) Type 2 diabetes mellitus with hyperglycemia, with long-term current use of insulin: Code(s): E11.65 - Type 2 diabetes mellitus with hyperglycemia; Z79.4 - intermediate accountant (current) use of insulin Status: Acute Assessment and Plan: Complicated management as patient has sepsis and inconsistent oral intake I decreased the dose of Lantus also I decreased the dose of lispro from home dose Continue sliding scale insulin (5) Elevated troponin: Code(s): R77.8 - Other specified abnormalities of plasma proteins Status: Acute Assessment and Plan: Most likely related to demand ischemia cardiology recommendation appreciated (6) Hypothyroidism (acquired): Code(s): E03.9 - Hypothyroidism, unspecified Status: Acute Assessment and Plan: Continue home medication (7) Epigastric pain: Code(s): R10.13 - Epigastric pain Status: Acute Assessment and Plan: Most likely related to gastritis treated with Protonix improved Subjective Date/time seen: 06/19/21 10:38 Interval history: 75 year female with a past medical history of multiple prior skin abscesses, as poorly controlled diabetes mellitus, hypertension, hypothyroidism, rheumatoid arthritis, COPD and obesity who presented to the ER via private vehicle due to worsening skin infection the right side her face. The patient was evaluated in the ER 06/15/2021 due to an area of cellulitis on her right cheek associated with a central wound with scabbing. Was treated with oral antibiotics patient condition continued to worsen at the ER patient was found to have sepsis AFib with RVR treated with IV antibiotics Too les admitted to the hospital for further evaluation and treatment during hospitalization patient developed abdominal pain nausea probable gastroparesis versus gastritis started IV Protonix and ordered 3 doses of currently patient on large dose of insulin complicated management as inconsistent oral intake and infection complicated the management of diabetes Nausea and vomiting has resolved facial swelling has improved patient has incision and drainage of 1 cm abscess yesterday by the surgeon no culture was sent AFib controlled Cardiology recommendation appreciated Patient denies fever headache chest pain shortness of breath I am seeing the patient for cellulitis Exam Narrative: Alert Chest no wheeze crackles Abdomen nontender nondistended CVS S1 + S2 Scan significant rash in the preseptal area periorbital area of the right eye, eye movement and vision is intact Lower extremity edema Objective Data Vital Signs Vital Signs: Vital Signs - 24 hr 06/18/21 12:00 06/18/21 14:00 06/18/21 16:00 Temperature 97.1 F L 96.8 F L Pulse Rate 102 H 101 H 104 H Respiratory Rate 20 20 Blood Pressure 150/53 H 130/72 Pulse Oximetry 92 97 06/18/21 18:00 06/18/21 19:31 06/18/21 20:00 Temperature 97.8 F Pulse Rate 103 H 104 H 105 H Respiratory Rate 20 Blood
[2021-06-19 12:03] LABS: Glucose Point of Care 230 mg/dl (65-105)
[2021-06-19] MEDS: CHOLECALCIFEROL 1,000 UNITS TABLET 2000 UNITS PO (13:22)
[2021-06-19] MEDS: INSULIN ASPART (*BKC) 100 UNITS/ML 35 UNITS SUB-Q ×2 (13:55→17:31)
[2021-06-19 14:30] LABS: Glucose Point of Care 281 mg/dl (65-105)
--- NOTE | 2021-06-19 14:37 | WPDPN ---
Progress Note: A&P Assessment and Plan (1) Cellulitis and abscess of face: Code(s): L03.211 - Cellulitis of face; L02.01 - Cutaneous abscess of face Status: Acute Assessment and Plan: Facial swelling improved. No crispin pus. Will remove wick tomorrow. Continue IV antibiotics. No additional surgery planned. Time Spent With Patient Time with patient: less than 15 minutes Subjective Date/time seen: 06/19/21 14:37 Pt up in bed with guest in room. Very vocal. Seems to appear better but c/o facial discoloration and tenderness. Exam Narrative: Both eyes open. No evident conjunctivitis. Erythema markedly improved. Right face much less tender. Wick remains, with little drainage on bandage. Tolerates digital pressure. No expressible pus. Objective Data Vital Signs Vital Signs: Vital Signs - 24 hr 06/18/21 16:00 06/18/21 18:00 06/18/21 19:31 Temperature 96.8 F L 97.8 F Pulse Rate 104 H 103 H 104 H Respiratory Rate 20 20 Blood Pressure 130/72 131/67 Pulse Oximetry 97 94 06/18/21 20:00 06/18/21 20:05 06/18/21 20:50 Temperature Pulse Rate 105 H 101 H Respiratory Rate Blood Pressure Pulse Oximetry 92 06/18/21 22:40 06/18/21 23:33 06/19/21 00:00 Temperature 98.4 F Pulse Rate 97 105 H 102 H Respiratory Rate 20 Blood Pressure 155/72 H Pulse Oximetry 91 06/19/21 00:50 06/19/21 02:26 06/19/21 04:00 Temperature 97.8 F Pulse Rate 96 91 Respiratory Rate 20 Blood Pressure 145/77 H Pulse Oximetry 91 96 06/19/21 07:03 06/19/21 08:00 06/19/21 08:09 Temperature 96.2 F L Pulse Rate 83 77 73 Respiratory Rate 21 H Blood Pressure 143/62 H Pulse Oximetry 99 99 06/19/21 08:30 06/19/21 10:00 06/19/21 12:00 Temperature Pulse Rate 82 80 Respiratory Rate Blood Pressure Pulse Oximetry 93 98 06/19/21 12:05 06/19/21 14:00 Temperature 98.0 F Pulse Rate 74 89 Respiratory Rate 18 Blood Pressure 110/41 L Pulse Oximetry 98 Intake/Output Intake/Output: Intake & Output 06/16/21 06/17/21 06/18/21 06/19/21 23:59 23:59 23:59 23:59 Intake Total 2670 2460 Output Total 3350 2150 Balance -680 310 Meds/Results Medications: Active Medications Generic Name Dose Route Start Last Admin Trade Name Freq PRN Reason Stop Dose Admin Hydrocodone Bitart/Acetaminophen 1 tab 06/18/21 18:02 06/19/21 04:32 Hydrocodone/Acetaminophen (*Crx) 5-325 Mg Tablet PO 1 tab Q6H PRN Administration Pain Rated 4-6 Albuterol 2 puff 06/18/21 01:44 06/19/21 06:32 Albuterol Sulfate (*Sp) Aerosol 1 Puff INHALATION 2 puff Q4H PRN Administration Shortness Of Breath Dextrose 12.5 gm 06/18/21 01:33 Dextrose 50% 25 Gm/50 Ml Syringe IV PUSH PRN PRN Hypoglycemia Protocol Diltiazem HCl 180 mg 06/19/21 09:00 06/19/21 08:42 Diltiazem Hcl Cd 180 Mg Cap.Er.24h PO 180 mg DAILY FAMILIA Administration Duloxetine HCl 30 mg 06/18/21 09:00 06/19/21 08:42 Duloxetine Hcl 30 Mg Capsule. PO 30 mg DAILY FAMILIA Administration Duloxetine HCl 60 mg 06/18/21 21:00 06/18/21 20:05 Duloxetine Hcl 60 Mg Capsule. PO 60 mg HS FAMILIA Administration Folic Acid 1 mg 06/18/21 09:00 06/19/21 08:42 Folic Acid 1 Mg Tablet PO 1 mg DAILY FAMILIA Administration Glucagon 1 mg 06/18/21 01:33 Glucagon For Inj 1 Mg Vial IM PRN PRN Hypoglycemia Protocol Glucose 15 gm 06/18/21 01:33 Glucose Oral Gel 15 Gm Of Glucse In 37.5 Gm Tube PO PRN PRN Hypoglycemia Protocol Hydrochlorothiazide 25 mg 06/18/21 09:00 06/19/21 08:42 Hydrochlorothiazide 25 Mg Tablet PO 25 mg DAILY FAMILIA Administration Sodium Chloride 1,000 mls @ 125 mls/hr 06/17/21 22:15 06/19/21 06:27 Normal Saline Iv IV CONT 125 mls/hr .Q8H FAMILIA Administration Dextrose 1,000 mls @ 100 mls/hr 06/18/21 01:33 Dextrose 5% 1,000 Ml IVPB PRN PRN Hypoglycemia Protocol
[2021-06-19] MEDS: UMECLIDINIUM BROMIDE 62.5 MCG ELLIPTA 1 PUFF INHALATION (15:40)
[2021-06-19 16:25] LABS: Glucose Point of Care 323 mg/dl (65-105)
[2021-06-19] MEDS: RIVAROXABAN 20 MG TABLET PO (17:29)
[2021-06-19 19:42] LABS: Glucose Point of Care 380 mg/dl (65-105)
[2021-06-19 20:06] LABS: Glucose Point of Care 320 mg/dl (65-105)
[2021-06-19] MEDS: METOPROLOL SUCCINATE EXT REL 25 MG TABCR PO (20:18)
[2021-06-19] MEDS: DULoxetine HCL 60 MG CAPSULE.DR PO (20:18)
[2021-06-19] MEDS: MONTELUKAST SODIUM 10 MG TABLET PO (20:19)
[2021-06-19] MEDS: ROSUVASTATIN 10 MG TABLET PO (20:19)
--- NOTE | 2021-06-19 22:19 | PC.NURSE ---
Pt. was received into room 330 from IMU at 22:20. All belongings were transferred with patient and patient was oriented to room, how to use the call light, and unit policies.
--- NOTE | 2021-06-19 22:29 | PC.NURSE ---
This patient, Rula Goldstein, was transferred to [facility] Med/Surg on 06/19/21 at 2220. Personal belongings sent with patient. Report given to ADOLPH Barraza. Appropriate documentation sent with patient.
[2021-06-19 22:50] LABS: Glucose Point of Care 266 mg/dl (65-105)
[2021-06-20 02:09] LABS: Vancomycin Trough 12.3 ug/mL (10.0-20.0)
[2021-06-20] MEDS: AMPICILLIN SULB 3 GM/NS 100 ML 3 GM/100 ML VIAL IVPB ×3 (05:18→21:05)
[2021-06-20] MEDS: LEVOTHYROXINE SODIUM 125 MCG TABLET PO (05:48)
[2021-06-20 06:00] VITALS: BP 154/72; PULSE 86; RESP 18; TEMP 36.3; O2SAT 100
[2021-06-20 06:53] LABS: Basophils Percent Auto 0.3 % (0.2-1.2); Hematocrit 30.5 % (37.0-47.0); Hemoglobin 9.7 g/dL (12.0-15.0); Immature Granulocyte Absolute 0.21 K/mm3 (0.00-0.031); Immature Granulocyte Percent A 1.9 % (0-0.5); Lymphocytes Absolute Auto 2.25 K/mm3 (0.9-3.2); Lymphocytes Percent Auto 20.6 % (18.3-44.2); Mean Corpuscular HGB Conc 31.8 g/dl (32-36); Mean Corpuscular Hemoglobin 30.4 pg (26-34); Mean Corpuscular Volume 95.6 fl (80-100); Mean Platelet Volume 9.2 fl (7.4-10.4); Monocytes Absolute Auto 1.1 K/mm3 (0.1-0.6); Monocytes Percent Auto 10.3 % (2.6-8.5); Neutrophils Absolute Auto 7.3 K/mm3 (1.3-6.7); Neutrophils Percent Auto 66.9 % (45.5-73.1); Platelet Count Result 269 k/mm3 (150-375); Red Blood Count 3.19 M/mm3 (4.2-5.4); Red Cell Distribution Width 14.4 % (11.5-14.5); White Blood Count 10.9 K/mm3 (4.5-10.0)
[2021-06-20 07:05] LABS: Alanine Aminotransferase 21 U/L (4-35); Albumin Level 3.1 g/dL (3.5-5.1); Alkaline Phosphatase 71 U/L (38-126); Anion Gap 5 mmol/L (8-16); Aspartate Amino Transferase 23 U/L (14-36); Bilirubin,Total 0.4 mg/dL (0.2-1.3); Blood Urea Nitrogen 7 mg/dL (7-17); Calcium 7.4 mg/dL (8.4-10.2); Carbon Dioxide 30 mmol/L (22-30); Chloride 103 mmol/L (98-107); Estimated CRCL calculation 85 ml/min; Estimated Glomerular Filt Rate > 60; Glucose 107 mg/dL (65-110); Potassium 3.2 mmol/L (3.4-5.0); Sodium 138 mmol/L (137-145)
[2021-06-20 07:48] LABS: Glucose Point of Care 116 mg/dl (65-105)
[2021-06-20 08:00] VITALS: O2SAT 96
[2021-06-20] MEDS: FLUTICASONE/SALMETEROL 115-21 MCG INHALER 1 PUFF 2 PUFF INHALATION ×2 (08:22→20:35)
[2021-06-20] MEDS: UMECLIDINIUM BROMIDE 62.5 MCG ELLIPTA 1 PUFF INHALATION (08:22)
[2021-06-20] MEDS: LOSARTAN POTASSIUM 50 MG TABLET PO (10:08)
[2021-06-20] MEDS: hydroCHLOROthiazide 25 MG TABLET PO (10:08)
[2021-06-20] MEDS: PANTOPRAZOLE 40 MG TABLET PO (10:08)
[2021-06-20] MEDS: predniSONE 5 MG TABLET PO (10:08)
[2021-06-20] MEDS: FOLIC ACID 1 MG TABLET PO (10:08)
[2021-06-20] MEDS: dilTIAZem HCL CD 180 MG CAP.ER.24H PO (10:09)
[2021-06-20] MEDS: LORATADINE 10 MG TABLET PO (10:09)
[2021-06-20] MEDS: DULoxetine HCL 30 MG CAPSULE.DR PO (10:09)
[2021-06-20] MEDS: SODIUM CHLORIDE 0.9% IV 1,000 ML 125 ML IV CONT (10:12)
--- NOTE | 2021-06-20 11:34 | PCPTNOTE ---
Patient declined PT at this time stating she was sleepy and did not feel up to therapy right now. PT will continue to follow per plan of care.
[2021-06-20] MEDS: CHOLECALCIFEROL 1,000 UNITS TABLET 2000 UNITS PO (12:23)
[2021-06-20 12:32] LABS: Glucose Point of Care 192 mg/dl (65-105)
--- NOTE | 2021-06-20 13:09 | WPDPN ---
Progress Note: A&P Assessment and Plan (1) Cellulitis and abscess of face: Code(s): L03.211 - Cellulitis of face; L02.01 - Cutaneous abscess of face Status: Acute Assessment and Plan: No further surgical intervention required. Small bandage or Band Aid until wound scabbed over. OK for discharge from my standpoint. Needs a week of anti staph antibiotic at discharge, probably Keflex. Does not need to F/U with Dr Bear. Call if further evaluation needed. Subjective Date/time seen: 06/20/21 13:09 Exam Narrative: Facial erythema and edema markedly improved. Wick pulled today. Minimally tender. No purulence. WBC 10.8. No wound culture, but pt has responded well to Ancef. Objective Data Vital Signs Vital Signs: Vital Signs - 24 hr 06/19/21 14:00 06/19/21 16:00 06/19/21 16:07 Temperature 97.5 F L Pulse Rate 89 78 84 Respiratory Rate 22 H Blood Pressure 126/53 L Pulse Oximetry 98 99 06/19/21 19:32 06/19/21 20:00 06/19/21 21:07 Temperature 97 F L Pulse Rate 82 Respiratory Rate 20 Blood Pressure 110/48 L Pulse Oximetry 96 96 94 06/19/21 22:34 06/19/21 22:39 06/20/21 06:00 Temperature 98.1 F 97.4 F L Pulse Rate 75 86 Respiratory Rate 18 18 Blood Pressure 137/67 154/72 H Pulse Oximetry 94 99 100 06/20/21 08:00 Temperature Pulse Rate Respiratory Rate Blood Pressure Pulse Oximetry 96 Intake/Output Intake/Output: Intake & Output 06/17/21 06/18/21 06/19/21 06/20/21 23:59 23:59 23:59 23:59 Intake Total 8820 3423 8634 Output Total 7530 3430 600 Balance -680 1428 1794 Meds/Results Medications: Active Medications Generic Name Dose Route Start Last Admin Trade Name Freq PRN Reason Stop Dose Admin Hydrocodone Bitart/Acetaminophen 1 tab 06/18/21 18:02 06/19/21 04:32 Hydrocodone/Acetaminophen (*Crx) 5-325 Mg Tablet PO 1 tab Q6H PRN Administration Pain Rated 4-6 Albuterol 2 puff 06/18/21 01:44 06/19/21 15:40 Albuterol Sulfate (*Sp) Aerosol 1 Puff INHALATION 2 puff Q4H PRN Administration Shortness Of Breath Dextrose 12.5 gm 06/18/21 01:33 Dextrose 50% 25 Gm/50 Ml Syringe IV PUSH PRN PRN Hypoglycemia Protocol Diltiazem HCl 180 mg 06/19/21 09:00 06/20/21 10:09 Diltiazem Hcl Cd 180 Mg Cap.Er.24h PO 180 mg DAILY FAMILIA Administration Duloxetine HCl 30 mg 06/18/21 09:00 06/20/21 10:09 Duloxetine Hcl 30 Mg Capsule. PO 30 mg DAILY FAMILIA Administration Duloxetine HCl 60 mg 06/18/21 21:00 06/19/21 20:18 Duloxetine Hcl 60 Mg Capsule. PO 60 mg HS FAMILIA Administration Folic Acid 1 mg 06/18/21 09:00 06/20/21 10:08 Folic Acid 1 Mg Tablet PO 1 mg DAILY FAMILIA Administration Glucagon 1 mg 06/18/21 01:33 Glucagon For Inj 1 Mg Vial IM PRN PRN Hypoglycemia Protocol Glucose 15 gm 06/18/21 01:33 Glucose Oral Gel 15 Gm Of Glucse In 37.5 Gm Tube PO PRN PRN Hypoglycemia Protocol Hydrochlorothiazide 25 mg 06/18/21 09:00 06/20/21 10:08 Hydrochlorothiazide 25 Mg Tablet PO 25 mg DAILY FAMILIA Administration Sodium Chloride 1,000 mls @ 125 mls/hr 06/17/21 22:15 06/20/21 10:13 Normal Saline Iv IV CONT Not Given .Q8H FAMILIA Dextrose 1,000 mls @ 100 mls/hr 06/18/21 01:33 Dextrose 5% 1,000 Ml IVPB PRN PRN Hypoglycemia Protocol Ampicillin Sodium/Sulbactam Sodium 3 gm in 100 mls @ 200 mls/hr 06/18/21 12:00 06/20/21 05:48 Unasyn 3 Gm/Ns 100 Ml IVPB Infused Q6H FAMILIA Infusion Vancomycin HCl 1,500 mg in 500 mls @ 333.333 mls/hr 06/19/21 01:00 06/20/21 04:38 Vancomycin 1,500 Mg/D5w 500 Ml IVPB Infused Q12H FAMILIA Infusion Insulin Aspart 4 - 8 units 06/18/21 08:00 06/20/21 13:06 Insulin Aspart (*Bkc) 100 Units/Ml SUB-Q Not Given TIDWM FAMILIA Protocol Insulin Aspart 35 units 06/19/21 12:00 06/20/21 10:52 Insulin Aspart (*Bkc) 100 Units/Ml SUB-Q Not Given 0800,1200,17
[2021-06-20 14:00] VITALS: BP 117/58; PULSE 86; RESP 18; TEMP 36.2; O2SAT 98
[2021-06-20 15:56] LABS: Glucose Point of Care 369 mg/dl (65-105)
[2021-06-20] MEDS: INSULIN ASPART (*BKC) 100 UNITS/ML SUB-Q (16:54)
[2021-06-20] MEDS: RIVAROXABAN 20 MG TABLET PO (16:55)
[2021-06-20] MEDS: INSULIN ASPART (*BKC) 100 UNITS/ML 35 UNITS SUB-Q (17:02)
--- NOTE | 2021-06-20 18:42 | PM.IMPN ---
Progress Note: A&P Assessment and Plan (1) Severe sepsis: Code(s): A41.9 - Sepsis, unspecified organism; R65.20 - Severe sepsis without septic shock Status: Acute Assessment and Plan: Secondary to cellulitis started IV Unasyn and IV vancomycin follow culture results Probably DC vancomycin and continue Unasyn in a.m. if culture continue to be negative 06/20/2021 interval history: Patient with right mandibular cellulitis has been treated with Unasyn seen by plastic surgeon and placed drain, patient has been seen by the plastic surgeon the wound is improving, patient will be seen by the surgeon today plan is to remove the wick and further recommendation to follow, patient states pain and swelling is much better denies any fever or chills, (2) Cellulitis and abscess of face: Code(s): L03.211 - Cellulitis of face; L02.01 - Cutaneous abscess of face Status: Acute Assessment and Plan: Improved with IV antibiotic Surgery recommendation appreciated status post incision and drainage of 1 cm abscess on 06/18/2021 culture was not sent as patient has been already on antibiotic as per surgery (3) Atrial fibrillation with rapid ventricular response: Code(s): I48.91 - Unspecified atrial fibrillation Status: Acute Assessment and Plan: DC Cardizem drip Resume oral Cardizem Continue tele monitor Controlled (4) Type 2 diabetes mellitus with hyperglycemia, with long-term current use of insulin: Code(s): E11.65 - Type 2 diabetes mellitus with hyperglycemia; Z79.4 - nursing home (current) use of insulin Status: Acute Assessment and Plan: Complicated management as patient has sepsis and inconsistent oral intake I decreased the dose of Lantus also I decreased the dose of lispro from home dose Continue sliding scale insulin (5) Elevated troponin: Code(s): R77.8 - Other specified abnormalities of plasma proteins Status: Acute Assessment and Plan: Most likely related to demand ischemia cardiology recommendation appreciated (6) Hypothyroidism (acquired): Code(s): E03.9 - Hypothyroidism, unspecified Status: Acute Assessment and Plan: Continue home medication (7) Epigastric pain: Code(s): R10.13 - Epigastric pain Status: Acute Assessment and Plan: Most likely related to gastritis treated with Protonix improved Additional Plan Is the patient presents the ER with facial cellulitis then fits severe sepsis criteria with lactic acidosis, leukocytosis and tachycardia. The patient had severe erythema and and periorbital edema around the right eye, extraocular movements are in intact and CT does not suggest any septal cellulitis. However on palpation of the area of the right maxillary region I suspect the patient likely has underlying abscess. No abscess was noted on imaging but the patient has a contrast allergy listed in the CT was subsequently performed without contrast. The patient has been placed on Ancef per recommendations from Plastic surgery. Blood cultures have been obtained and are pending. The patient did receive 2 L of IV fluid hydration in the ER and her heart rate has improved down to the 90s. Will repeat CBC and electrolyte panel in a.m.. The patient's cellulitis is further complicated by her chronic steroid use for her rheumatoid arthritis and her chronically uncontrolled diabetes. The patient is in AFib RVR likely compound by the fact that she has missed 2 days of her cardiac medications and given her underlying sepsis. After IV fluid hydration the patient's heart rate has come down to the 90s and subsequently her Cardizem drip has been decreased down to 10 mg. Patient does have elevated troponins secondary to cardiac strain from the above components. Will repeat 6 hour troponin since the patient's 3 are troponin has already been missed. Patient has been admitted to the IMU. Given that the patient does have history of post
[2021-06-20 19:36] LABS: Glucose Point of Care 343 mg/dl (65-105)
[2021-06-20 20:38] VITALS: O2SAT 98
[2021-06-20 21:04] VITALS: PULSE 83
[2021-06-20] MEDS: DULoxetine HCL 60 MG CAPSULE.DR PO (21:04)
[2021-06-20] MEDS: METOPROLOL SUCCINATE EXT REL 25 MG TABCR PO (21:04)
[2021-06-20] MEDS: MONTELUKAST SODIUM 10 MG TABLET PO (21:05)
[2021-06-20] MEDS: ROSUVASTATIN 10 MG TABLET PO (21:06)
[2021-06-20 21:38] VITALS: BP 153/80; PULSE 78; RESP 18; TEMP 37.2; O2SAT 99
[2021-06-20 22:08] LABS: Glucose Point of Care 291 mg/dl (65-105)
[2021-06-21] MEDS: AMPICILLIN SULB 3 GM/NS 100 ML 3 GM/100 ML VIAL IVPB ×2 (00:56→05:34)
[2021-06-21] MEDS: LEVOTHYROXINE SODIUM 125 MCG TABLET PO (05:34)
[2021-06-21 06:00] VITALS: BP 129/57; PULSE 72; RESP 18; TEMP 36.6; O2SAT 100
[2021-06-21] MEDS: SODIUM CHLORIDE 0.9% IV 1,000 ML 125 ML IV CONT (06:40)
[2021-06-21] MEDS: ALBUTEROL SULFATE (*SP) AEROSOL 1 PUFF 2 PUFF INHALATION ×2 (07:53→11:23)
[2021-06-21] MEDS: FLUTICASONE/SALMETEROL 115-21 MCG INHALER 1 PUFF 2 PUFF INHALATION (07:54)
[2021-06-21 07:55] VITALS: PULSE 86; RESP 18
[2021-06-21 07:59] VITALS: O2SAT 98
[2021-06-21 08:17] LABS: Glucose Point of Care 158 mg/dl (65-105)
[2021-06-21] MEDS: hydroCHLOROthiazide 25 MG TABLET PO (09:38)
[2021-06-21] MEDS: INSULIN ASPART (*BKC) 100 UNITS/ML 35 UNITS SUB-Q (09:38)
[2021-06-21] MEDS: LOSARTAN POTASSIUM 50 MG TABLET PO (09:38)
[2021-06-21] MEDS: dilTIAZem HCL CD 180 MG CAP.ER.24H PO (09:38)
[2021-06-21] MEDS: FOLIC ACID 1 MG TABLET PO (09:38)
[2021-06-21] MEDS: PANTOPRAZOLE 40 MG TABLET PO (09:38)
[2021-06-21] MEDS: DULoxetine HCL 30 MG CAPSULE.DR PO (09:38)
[2021-06-21] MEDS: predniSONE 5 MG TABLET PO (09:38)
[2021-06-21] MEDS: LORATADINE 10 MG TABLET PO (09:39)
[2021-06-21] MEDS: INSULIN GLARGINE (*BKC) 100 UNITS/ML 65 UNITS SUB-Q (09:40)
--- NOTE | 2021-06-21 10:43 | PCOTNOTE ---
Attempted to see patient for OT as patient's set off bed alarm and patient was sitting EOB. Patient reports being discharged today, however when asked to participate in ADLs in preparation for d/c, patient declined. Patient's present. Patient's RN confirms d/c today.
--- NOTE | 2021-06-21 10:56 | PM.DS ---
DS: Admitting Diagnosis Discharge Date 06/26/2021 Admitting Diagnosis Worsening facial infection DS: Discharge Diagnosis Discharge Diagnosis (1) Severe sepsis: Code(s): A41.9 - Sepsis, unspecified organism; R65.20 - Severe sepsis without septic shock Status: Acute Assessment and Plan: Secondary to cellulitis started IV Unasyn and IV vancomycin follow culture results Probably DC vancomycin and continue Unasyn in a.m. if culture continue to be negative 06/20/2021 interval history: Patient with right mandibular cellulitis has been treated with Unasyn seen by plastic surgeon and placed drain, patient has been seen by the plastic surgeon the wound is improving, patient will be seen by the surgeon today plan is to remove the wick and further recommendation to follow, patient states pain and swelling is much better denies any fever or chills, (2) Cellulitis and abscess of face: Code(s): L03.211 - Cellulitis of face; L02.01 - Cutaneous abscess of face Status: Acute Assessment and Plan: Improved with IV antibiotic Surgery recommendation appreciated status post incision and drainage of 1 cm abscess on 06/18/2021 culture was not sent as patient has been already on antibiotic as per surgery (3) Atrial fibrillation with rapid ventricular response: Code(s): I48.91 - Unspecified atrial fibrillation Status: Acute Assessment and Plan: DC Cardizem drip Resume oral Cardizem Continue tele monitor Controlled (4) Type 2 diabetes mellitus with hyperglycemia, with long-term current use of insulin: Code(s): E11.65 - Type 2 diabetes mellitus with hyperglycemia; 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 Status: Acute Assessment and Plan: Complicated management as patient has sepsis and inconsistent oral intake I decreased the dose of Lantus also I decreased the dose of lispro from home dose Continue sliding scale insulin (5) Elevated troponin: Code(s): R77.8 - Other specified abnormalities of plasma proteins Status: Acute Assessment and Plan: Most likely related to demand ischemia cardiology recommendation appreciated (6) Hypothyroidism (acquired): Code(s): E03.9 - Hypothyroidism, unspecified Status: Acute Assessment and Plan: Continue home medication (7) Epigastric pain: Code(s): R10.13 - Epigastric pain Status: Acute Assessment and Plan: Most likely related to gastritis treated with Protonix improved DS: Summary Hospital Course Reason for hospitalization: Chief Complaint: Worsening facial infection Narrative: 75 year female with a past medical history of multiple prior skin abscesses, as poorly controlled diabetes mellitus, hypertension, hypothyroidism, rheumatoid arthritis, COPD and obesity who presented to the ER via private vehicle due to worsening skin infection the right side her face. The patient was evaluated in the ER 06/15/2021 due to an area of cellulitis on her right cheek associated with a central wound with scabbing. The patient did not have labs performed at that time. A bedside ultrasound had been performed on that day which demonstrated no drainable abscess. The patient was discharged home on doxycycline. The patient was referred to Dr. Bear as outpatient for further evaluation if the lesion persisted as the patient has had multiple episodes of abscesses and needed to be drained by Plastic surgery. The patient has had marked increase in swelling since the . She has had increased erythema and her eyes now so swollen that she can barely open her eye. She has noticed some purulent drainage from her eyelids. She also reports some tenderness in the submandibular region on palpation she has also had accompanied symptoms active fevers. When her would check her temperature her temperature would be normal. She was also having intermittent sweats. She reported that she felt so ill that she has no
[2021-06-21 11:24] VITALS: PULSE 84; RESP 18
== END 2021-06-21 12:30 | disposition home health service (06) | DRG 872 ==
LOC: ANHED 22:11 → ANHIMU 06-18 02:41 → ANH3MEDSUR 06-20 05:35 → ANHIMU 06-23 15:35
PROVIDERS: Internal Medicine; Internal Medicine Cardiovascular Disease; Admitting Provider Internal Medicine; Emergency Provider Nurse Practitioner Family; PCP Family Medicine; Visit Provider Family Medicine
DX: A41.9 Sepsis, unspecified organism (principal); L03.211 Cellulitis of face; E87.2 Acidosis; L02.01 Cutaneous abscess of face; I48.92 Unspecified atrial flutter; E11.65 Type 2 diabetes mellitus with hyperglycemia; R77.8 Other specified abnormalities of plasma proteins; E03.9 Hypothyroidism, unspecified; I10 Essential (primary) hypertension; I48.0 Paroxysmal atrial fibrillation; G47.33 Obstructive sleep apnea (adult) (pediatric); E66.9 Obesity, unspecified; M06.9 Rheumatoid arthritis, unspecified; Z85.3 Personal history of malignant neoplasm of breast; J44.9 Chronic obstructive pulmonary disease, unspecified; J45.909 Unspecified asthma, uncomplicated; F41.8 Other specified anxiety disorders; E11.42 Type 2 diabetes mellitus with diabetic polyneuropathy; Z79.4 Long term (current) use of insulin; Z68.30 Body mass index [BMI] 30.0-30.9, adult; Z82.49 Family history of ischemic heart disease and other diseases of the circulatory system; R00.0 Tachycardia, unspecified; I25.10 Atherosclerotic heart disease of native coronary artery without angina pectoris; R65.20 Severe sepsis without septic shock; R10.13 Epigastric pain; Z79.899 Other long term (current) drug therapy; Z83.3 Family history of diabetes mellitus; Z80.9 Family history of malignant neoplasm, unspecified; Z87.891 Personal history of nicotine dependence; Z79.52 Long term (current) use of systemic steroids
CPT/HCPCS: 36415; 70486; 80053; 80202; 82948; 83605; 83735; 84132; 84484; 85025; 87040; 93005; 93306; 94640; 96365; 97161; 97165; 97530; 97535; 99283; 99285; A9270; C9113; J0295; J0690; J1815; J3370; J7030; J7512

== ENCOUNTER 2021-07-08 16:18 | Outpatient (CLI) | payer MEDICARE, SELFPAY ==
--- NOTE | ~2021-07-08 | XR_ITS ---
XR ribs LT 2V w CXR 2V DATE: 07/08/2021 16:48 INDICATION: Chest pain, left side. Patient thinks she broke her rib block coughing. TECHNIQUE: PA and lateral chest. 3 views of the left wrist. COMPARISON: 05/15/2021 CDT diagnostic chest 01/15/2021 2 view chest FINDINGS: Left mastectomy. Left axillary node dissection. Normal heart size. No hilar or mediastinal enlargement. Thoracic aortic calcification. No pulmonary infiltrate or consolidation. No pleural effusion or pulmonary vascular congestion or pneumothorax. Diffuse osteopenia. No rib fracture is detected. IMPRESSION: No detected left rib fracture Status post left mastectomy and axillary node dissection No active cardiopulmonary disease Aortic atherosclerosis Osteopenia Reviewed, dictated and finalized at location B.
== END 2021-07-08 16:19 | disposition home or self-care (01) ==
LOC: ANHIMG 16:22
PROVIDERS: PCP Family Medicine; Visit Provider Family Medicine
DX: R07.81 Pleurodynia (principal); I70.0 Atherosclerosis of aorta
CPT/HCPCS: 71046; 71100

== ENCOUNTER 2021-09-23 00:08 | Day surgery (SDC) | payer MEDICARE, SELFPAY ==
[2021-09-10 09:30] VITALS: BMI 36.6
[2021-09-23 10:18] VITALS: BP 133/64; PULSE 104; RESP 20; TEMP 36; O2SAT 99
[2021-09-23] MEDS: LACTATED RINGERS 1,000 ML 150 ML IV CONT (10:22)
[2021-09-23 10:31] LABS: Glucose Point of Care 404 mg/dl (65-105)
--- NOTE | 2021-09-23 10:45 | WPDANESEPPF ---
Anes - Initial Pre Proc Eval Procedure: Operation Date: 09/23/21 11:00 Proposed Procedures p Esophagogastroduodenoscopy - Andrew Espana MD Date/Time: 09/23/21 10:45 Surgeon: Andrew Espana MD Pre Op Diagnosis: GERD, chronic cough Patient Data Age: 75 Gender: F Height: 1.57 m Weight: 89.6 kg Last Vital Signs Temp 36.0 C L 09/23/21 10:18 Pulse 104 H 09/23/21 10:18 Resp 20 09/23/21 10:18 BP 133/64 09/23/21 10:18 Pulse Ox 99 09/23/21 10:18 O2 Del Method Nasal Cannula 09/23/21 10:18 O2 Flow Rate 3 09/23/21 10:18 Allergies Allergy/AdvReac Type Severity Reaction Status Date / Time shellfish derived Allergy Severe HIVES/RASH Verified 09/23/21 10:16 shrimp Allergy Severe RASH/HIVES Verified 09/23/21 10:16 celecoxib Allergy Intermediate RASH/HIVES Verified 09/23/21 10:16 fish oil Allergy Intermediate RASH/HIVES Verified 09/23/21 10:16 metformin Allergy Unknown Chest Pain Verified 09/23/21 10:16 Contrast Media Allergy Intermediate NAUSEA, Uncoded 09/23/21 10:16 HOT FLASHES, DYSPNEA Home Medications Medication Instructions Recorded Confirmed Type budesonide-formoterol HFA 160 2 puff inhalation BID 11/17/19 09/23/21 History mcg-4.5 mcg/actuation aerosol inhaler (Symbicort) metoprolol succinate 25 mg 25 mg PO HS 11/17/19 09/23/21 History tablet,extended release 24 hr albuterol sulfate 90 mcg/actuation 90 mcg inhalation PRN PRN 12/04/19 09/23/21 History aerosol inhaler (Ventolin HFA) Shortness Of Breath rosuvastatin 10 mg tablet 10 mg PO HS 12/04/19 09/23/21 History ondansetron 4 mg disintegrating 4 mg PO Q8H PRN nausea and 02/26/20 09/23/21 Rx tablet vomiting #10 tabs folic acid 1 mg tablet 1 mg PO DAILY 05/07/20 09/23/21 History pen needle, diabetic 32 gauge x #400 ea 07/08/20 09/23/21 Rx 5/32 (BD Ultra-Fine Jing Pen Needle) duloxetine 30 mg capsule,delayed 30 mg PO DAILY 10/04/20 09/23/21 History release lifitegrast 5 % eye drops in a 1 drp EACH EYE BID 10/05/20 09/23/21 History dropperette (Xiidra) prednisone 10 mg tablet 5 mg PO DAILY #30 tabs 01/17/21 09/23/21 Rx rivaroxaban 20 mg tablet (Xarelto) 20 mg PO DAILY@1700 #6 tabs 01/17/21 09/23/21 Rx flash glucose sensor (FreeStyle #6 ea 04/09/21 09/23/21 Rx Dmitry 2 Sensor kit) duloxetine 60 mg capsule,delayed 60 mg PO HS #90 caps 06/16/21 09/23/21 Rx release diltiazem HCl 180 mg 180 mg PO DAILY 06/18/21 09/23/21 History capsule,extended release 24 hr (Cartia XT) losartan 25 mg tablet 50 mg PO DAILY 06/18/21 09/23/21 History levocetirizine 5 mg tablet (Xyzal) 5 mg PO DAILY #30 tabs 06/23/21 09/23/21 Rx glucagon 3 mg/actuation nasal 3 mg intranasal ONCE PRN 07/03/21 09/23/21 Rx spray (Baqsimi) hypoglycemia #1 ea insulin lispro 200 unit/mL (3 mL) See Rx Instructions .Route 07/03/21 09/23/21 Rx subcutaneous pen (Humalog KwikPen .COMPLEX #96 mL U-200 Insulin) hydrocodone 5 mg-acetaminophen 325 1 tablet PO Q8H PRN pain #21 tabs 07/10/21 09/23/21 Rx mg tablet insulin glargine U-300 conc 300 80 unit subcut DAILY 07/16/21 09/23/21 History unit/mL (3 mL) subcutaneous pen (Toujeo Max U-300 SoloStar) levothyroxine 125 mcg tablet 125 mcg PO DAILY #90 tabs 07/21/21 09/23/21 Rx omeprazole 40 mg capsule,delayed 40 mg PO DAILY #30 caps 08/11/21 09/23/21 Rx release hydrochlorothiazide 25 mg tablet See Rx Instructions .Route 07/05/22 07/26/22 Rx .COMPLEX #90 tabs montelukast 10 mg tablet 10 mg PO HS #90 tabs 09/15/21 09/23/21 Rx tiotropium bromide 2.5 2 puff inhalation DAILY 09/23/21 09/23/21 History mcg/actuation mist for inhalation (Spiriva Respimat) Laboratory Tests 09/23/21 10:22 POC Capillary Glucose 404 mg/dl H mg/dl (65-105) Patient hx anesthesia problems: none Family hx anesthesia problems: none Results Review: All pre-operative results and documents have been reviewed as part of the pre-operative evaluation. [facility] [place] Past Med
--- NOTE | 2021-09-23 10:51 | SUR.PREOP ---
Dr Kam notified of pt's FSBS of 404. After discussion with pt re normal FSBS results and normal insulin doses, Dr Kam instructed pt to take her normal home dose of 70u of Lispro subcutaneous.
--- NOTE | 2021-09-23 11:34 | WPDGICN ---
Assessment and Plan Assessment and plan (1) GERD (gastroesophageal reflux disease): Code(s): K21.9 - Gastro-esophageal reflux disease without esophagitis Status: Acute Assessment and Plan: Patient states a long history of GE reflux. Does complain of epigastric discomfort. An EGD will be performed today. (2) Abnormal MRI: Code(s): R93.89 - Abnormal findings on diagnostic imaging of other specified body structures Status: Acute Assessment and Plan: MRI performed because of back issues raises the question of a duodenal diverticulum versus pancreatic head lesion. Plan is for EGD. If this fails to delineate this then endoscopic ultrasound should be performed tertiary care center. (3) Dysphagia: Code(s): R13.10 - Dysphagia, unspecified Status: Acute Assessment and Plan: Pain patient reports difficulty swallowing ever since goiter surgery. She points to food hanging up at the area where her scar for the goiter is. Plan is for EGD to exclude esophageal narrowing. (4) BMI greater than 30: Status: Acute Assessment and Plan: Patient quite overweight suggest calorie restriction increase activity and weight control if at all possible. GI Consult Note Consult date/time: 09/23/21 11:34 Reason for consult: Dysphagia and abnormal MRI. HPI: Rula Goldstein is a 75 year old female Presents for EGD. Patient complains of a long history of dysphagia ever since having goiter surgery had age 20. She states symptoms have worsened more recently over recent months food will catch in the mid substernal portion of the chest. She presents today for EGD. Patient has multiple medical problems and reports diabetes, COPD, asthma. She has a history of a goiter at age 20. He has been treated for arthritis. Most recently with prednisone. Apparently because of back problem she underwent an MRI which raise the question of a diverticulum at that duodenum area of the pancreas versus a pancreatic lesion. An EGD is requested today by to assess for a duodenal diverticulum as well as difficulty swallowing. Patient denies any weight loss or jaundice. Her appetite is good. Patient reports a history of acid reflux disease. She has a distant history of colon polyps. Family history is not available. Review of Systems Review of Systems: Review of systems noncontributory. [facility] Past Medical History Medical History Adult BMI 30+ Asthma-COPD overlap syndrome PFTs 06/03/2021: Moderately severe obstructive abnormality without significant improvement with bronchodilator. Diffusion capacity normal. Lung volumes normal. Cancer of left breast Colon polyps Degenerative joint disease of knee Depression with anxiety Diabetic peripheral neuropathy Diverticulitis GERD (gastroesophageal reflux disease) Hypertension Hypothyroidism (acquired) Insulin dependent type 2 diabetes mellitus Hemoglobin A1c 10.02 April 2020 Obesity Obstructive sleep apnea Intolerant to CPAP. Osteopenia Paroxysmal atrial fibrillation (~12/2020) Echocardiogram 12/2020: Normal left ventricular systolic function EF 65-70%, mildly increased left ventricular wall thickness, diastolic function abnormal, global longitudinal strain abnormal at -15%, left atrial chamber mildly enlarged, mild mitral valve regurgitation, mild tricuspid regurgitation Rheumatoid arthritis Vitiligo Surgical History Surgical History History of appendectomy History of bilateral cataract extraction History of cardiac catheterization Unremarkable per patient report. History of cholecystectomy History of colonoscopy with polypectomy History of fusion of cervical spine History of hysterectomy History of incision and drainage (05/2018) Right cheek abscess. History of left mastectomy History of thyroidectomy Family History Family H
[2021-09-23 11:41] LABS: Glucose Point of Care 326 mg/dl (65-105)
[2021-09-23] MEDS: BENZOCAINE (*SP) 60 ML SPRAY CAN (HURRICAINE) 1 SPRAY MUCOUS MEM (11:48)
[2021-09-23 12:02] VITALS: BP 99/48; PULSE 81; RESP 21; O2SAT 98
[2021-09-23 12:12] VITALS: BP 117/63; PULSE 83; RESP 19; O2SAT 99
[2021-09-23 12:22] VITALS: BP 132/72; PULSE 80; RESP 18; O2SAT 99
== END 2021-09-23 12:36 | disposition home or self-care (01) ==
PROVIDERS: PCP Family Medicine; Visit Provider Internal Medicine Gastroenterology
PROC: 0DJ08ZZ Inspection of Upper Intestinal Tract, Via Natural or Artificial Opening Endoscopic (ICD-10-PCS; CPT 43235; principal; 2021-09-23 11:00)
DX: R13.10 Dysphagia, unspecified (principal); K57.10 Diverticulosis of small intestine without perforation or abscess without bleeding; M19.90 Unspecified osteoarthritis, unspecified site; G47.33 Obstructive sleep apnea (adult) (pediatric); K21.9 Gastro-esophageal reflux disease without esophagitis; J44.9 Chronic obstructive pulmonary disease, unspecified; G62.9 Polyneuropathy, unspecified; F41.9 Anxiety disorder, unspecified; F32.A Depression, unspecified; I48.0 Paroxysmal atrial fibrillation; Z87.891 Personal history of nicotine dependence; E03.9 Hypothyroidism, unspecified; Z79.01 Long term (current) use of anticoagulants; Z79.4 Long term (current) use of insulin; R05.9 Cough, unspecified; E66.9 Obesity, unspecified; Z68.36 Body mass index [BMI] 36.0-36.9, adult
CPT/HCPCS: 43450; 43235; 82948; J2704; J7120

== ENCOUNTER → 2021-09-29 16:46 | Outpatient (CLI) | payer MEDICARE, SELFPAY ==
--- NOTE | ~2021-09-29 | MM_ITS ---
EXAMINATION: MM screening taryn RT w jose angel HISTORY: Screening TECHNIQUE: Craniocaudal and mediolateral oblique 3-D tomosynthesis images were obtained and synthetic 2-D images were generated. CAD analysis was submitted and interpreted. COMPARISON: Comparison to multiple prior studies sequentially, with oldest reviewed study dated 12/31. BREAST PARENCHYMAL COMPOSITION: There are scattered areas of fibroglandular density. FINDINGS: There is no evidence of suspicious mass, calcification, or architectural distortion to sugg est malignancy in either breast. There has been no suspicious interval change. IMPRESSION: 1. No mammographic evidence of malignancy. 2. Recommend routine screening mammography in one year. BI-RADS Category 1: Negative Reviewed, dictated and finalized at location [facility].
== END ==
PROVIDERS: PCP Family Medicine; Visit Provider Family Medicine
DX: Z12.31 Encounter for screening mammogram for malignant neoplasm of breast (principal)
CPT/HCPCS: 77063; 77067

== ENCOUNTER 2022-04-09 01:05 | Emergency (ER) | payer MEDICARE, SELFPAY ==
[2022-04-09] VITALS (11 sets, daily range): BP systolic 113–137; BP diastolic 52–121; PULSE 82; RESP 24; TEMP 36.6; O2SAT 94–98
--- NOTE | 2022-04-09 01:35 | ED.BACK ---
HPI - Back Pain/Injury General Chief Complaint: Extremity Injury, Lower Stated Complaint: left hip pain Time Seen by Provider: 04/09/22 01:12 History of Present Illness HPI Narrative: This is a 76F w/history of diabetes, hypertension, sciatica, CAD who presents to the ED complaining of left side back pain radiating to the left leg. She states she usually uses a wheelchair and occasionally walks with a walker, but yesterday walked much more than her usual. She then developed left side 7/10 sharp back pain that radiates to the left leg and left toe. This pain is similar to that in the past but more severe. She fell 4 months ago but denies recent fall. She denies bowel/bladder incontinence, fever or groin numbness. Related Data Home Medications Medication Instructions Recorded Confirmed budesonide-formoterol HFA 160 2 puff inhalation BID 11/17/19 04/02/22 mcg-4.5 mcg/actuation aerosol inhaler (Symbicort) metoprolol succinate 25 mg 25 mg PO HS 11/17/19 04/02/22 tablet,extended release 24 hr albuterol sulfate 90 mcg/actuation 90 mcg inhalation PRN PRN 12/04/19 04/02/22 aerosol inhaler (Ventolin HFA) Shortness Of Breath rosuvastatin 10 mg tablet 10 mg PO HS 12/04/19 04/02/22 folic acid 1 mg tablet 1 mg PO DAILY 05/07/20 04/02/22 duloxetine 30 mg capsule,delayed 30 mg PO DAILY 10/04/20 04/02/22 release lifitegrast 5 % eye drops in a 1 drp EACH EYE BID 10/05/20 04/02/22 dropperette (Xiidra) diltiazem HCl 180 mg 180 mg PO DAILY 06/18/21 04/02/22 capsule,extended release 24 hr (Cartia XT) methotrexate sodium 2.5 mg tablet 2.5 mg PO WEEKLY 10/21/21 04/02/22 Allergies Allergy/AdvReac Type Severity Reaction Status Date / Time shellfish derived Allergy Severe HIVES/RASH Verified 04/09/22 01:21 shrimp Allergy Severe RASH/HIVES Verified 04/09/22 01:21 celecoxib Allergy Intermediate RASH/HIVES Verified 04/09/22 01:21 fish oil Allergy Intermediate RASH/HIVES Verified 04/09/22 01:21 metformin Allergy Unknown Chest Pain Verified 04/09/22 01:21 Contrast Media Allergy Intermediate NAUSEA, Uncoded 01/28/22 14:42 HOT FLASHES, DYSPNEA Review of Systems Review of Systems: CONSTITUTIONAL: Denies fever, chills, or sweats. EYES: Denies visual changes, redness, or discharge. ENT: Denies rhinorrhea, congestion, sore throat, or otalgia. CARDIOVASCULAR: Denies chest pain, palpitations, or edema. RESPIRATORY: Denies cough or dyspnea. GASTROINTESTINAL: Denies abdominal pain, nausea, vomiting, or diarrhea. GENITOURINARY: Dysuria denies hematuria. SKIN: Denies rash or itching. MUSCULOSKELETAL: back pain radiating to the left leg Denies joint pain, or myalgia. NEUROLOGIC: Denies headache, numbness, dizziness, or weakness. PSYCHIATRIC: Denies anxiety or depression. [facility] Past Medical History Medical History Adult BMI 30+ Asthma-COPD overlap syndrome PFTs 06/03/2021: Moderately severe obstructive abnormality without significant improvement with bronchodilator. Diffusion capacity normal. Lung volumes normal. Cancer of left breast Colon polyps Degenerative joint disease of knee Depression with anxiety Diabetic peripheral neuropathy Diverticulitis GERD (gastroesophageal reflux disease) Hypertension Hypothyroidism (acquired) Insulin dependent type 2 diabetes mellitus Hemoglobin A1c 10.02 April 2020 Obesity Obstructive sleep apnea Intolerant to CPAP. Osteopenia Paroxysmal atrial fibrillation (~12/2020) Echocardiogram 12/2020: Normal left ventricular systolic function EF 65-70%, mildly increased left ventricular wall thickness, diastolic function abnormal, global longitudinal strain abnormal at -15%, left atrial chamber mildly enlarged, mild mitral valve regurgitation, mild tricuspid regurgitation Rheumatoid arthritis Vitiligo Surgical History Surgical History History of appendectomy History of bilatera
[2022-04-09] MEDS: ACETAMINOPHEN 500 MG TABLET 1000 MG PO (01:41)
[2022-04-09] MEDS: LIDOCAINE 5% PATCH 1 PATCH TRANSDERM (01:42)
[2022-04-09] MEDS: CYCLOBENZAPRINE HCL 5 MG TABLET PO (01:42)
== END 2022-04-09 03:28 | disposition home or self-care (01) ==
PROVIDERS: Emergency Provider Preventive Medicine Aerospace Medicine; PCP Family Medicine
DX: M54.42 Lumbago with sciatica, left side (principal); J45.909 Unspecified asthma, uncomplicated; F32.9 Major depressive disorder, single episode, unspecified; K21.9 Gastro-esophageal reflux disease without esophagitis; I10 Essential (primary) hypertension; G47.30 Sleep apnea, unspecified; I48.91 Unspecified atrial fibrillation
CPT/HCPCS: 99283; A9270

== ENCOUNTER 2022-04-17 08:15 | Outpatient (CLI) | payer MEDICARE, SELFPAY ==
[2022-04-17 09:30] VITALS: PULSE 92; O2SAT 96
[2022-04-17 09:32] VITALS: PULSE 107; O2SAT 94
[2022-04-17 09:45] VITALS: PULSE 97; O2SAT 97
--- NOTE | 2022-04-17 11:20 | HOMEO2EVAL ---
Evaluation was performed at [facility] Home Oxygen Evaluation RC: Home Oxygen (O2) Evaluation Start: 04/17/22 11:12 Freq: Status: Active Protocol: RPE Activity Type Activity Date Activity User E-sign Co-sign Detail Recorded Client Recorded Date Recorded By Document 04/17/22 09:30 ROBERTA [id number] 04/17/22 11:20 ROBERTA Document 04/17/22 09:32 ROBERTA [email or web address] 04/17/22 11:20 ROBERTA Document 04/17/22 09:45 ROBERTA [id number] 04/17/22 11:20 ROBERTA 04/17/22 04/17/22 04/17/22 09:30 09:32 09:45 Home O2 Evaluation [Oxygen] -Test Phase Resting Exercise Resting -Oxygen Delivery Room Air Room Air Room Air [Pulse Oximetry] -Pulse Oximetry (90-100 %) 96 94 97 [Pulse Rate] -Pulse Rate (60-100 beats/min) 92 107 H 97 [Exercise] -Ambulation Distance (feet) 300 -Ambulation Distance (meters) 91.43 [Charges] -Treatment Charges O2 Evaluation - Outpatient
--- NOTE | 2022-04-17 11:24 | PCRCNOTE ---
Faxed home O2 eval to dr gutierrez
== END 2022-04-17 08:16 | disposition home or self-care (01) ==
LOC: ANHPFT 08:17
PROVIDERS: PCP Family Medicine; Visit Provider Internal Medicine Pulmonary Disease
DX: J44.9 Chronic obstructive pulmonary disease, unspecified (principal)
CPT/HCPCS: 94618

== ENCOUNTER 2022-09-02 23:09 | Emergency (ER) | payer MEDICARE, SELFPAY ==
--- NOTE | ~2022-09-02 | XR_ITS ---
Right Hand Technique: PA, oblique, and lateral views were obtained. Clinical History: Pain Findings: No acute fracture or dislocation is seen. There is severe osteoarthritis of the second and third PIP and DIP joints. There is advanced degenerative change of the interphalangeal joint of the t humb. There is moderate degenerative change of the first metacarpophalangeal joint and fifth metacarp ophalangeal joint. There is mild degenerative change at the first carpometacarpal joint. There is mod erate degenerative change of the fifth PIP and DIP joints. There is mild to moderate degenerative nohelia nge of the fourth PIP and DIP joints. Soft tissues are unremarkable. Impression: Extensive degenerative changes, as detailed above, worst at the second and third PIP and DIP joints. There is additional involvement of the interphalangeal joint of the thumb, fourth and fifth PIP and D IP joints, and the first and fifth MCP joints. Reviewed, dictated and finalized at [facility]. Impression: Extensive degenerative changes, as detailed above, worst at the second and thir d PIP and DIP joints. There is additional involvement of the interphalangeal krystyna int of the thumb, fourth and fifth PIP and DIP joints, and the first and fifth MCP joints.
[2022-09-02 23:12] VITALS: BP 131/89; PULSE 88; RESP 20; TEMP 36.7; O2SAT 100
[2022-09-03 00:41] VITALS: BP 128/77; PULSE 76; RESP 16; TEMP 36.6; O2SAT 97
--- NOTE | 2022-09-03 00:59 | ED.EXTPRO ---
HPI - Extremity Problem General Chief complaint: Extremity Problem,Nontraumatic <Katherine Horowitz PA-C - Last Filed: 09/03/22 04:11> Stated complaint: wrist pain <Katherine Horowitz PA-C - Last Filed: 09/03/22 04:11> Time Seen by Provider: 09/03/22 00:42 <Katherine Horowitz PA-C - Last Filed: 09/03/22 04:11> History of Present Illness HPI Narrative: 76-year-old female with a history of insulin-dependent diabetes, rheumatoid arthritis and osteoarthritis reports for evaluation of right hand pain x3 days. Patient reports the majority of her pain is in her thumb, but also in her third and fourth digits, and diffusely in her left hand. She reports at times the pain radiates up into her forearm. She denies injury or trauma, fever or warmth. States she has been taking tramadol and applying topical Voltaren without relief. She is currently finishing on her last week of a prednisone taper prescribed by her physical medicine specialist for arthritis. The taper was 5 mg 3 times daily for 1 week, 5 mg twice daily for 1 week, 5 mg daily for 1 week. <Katherine Horowitz PA-C - Last Filed: 09/03/22 04:11> Related Data Home medications: Home Medications Medication Instructions Recorded Confirmed budesonide-formoterol HFA 160 2 puff inhalation BID 11/17/19 08/10/22 mcg-4.5 mcg/actuation aerosol inhaler (Symbicort) metoprolol succinate 25 mg 25 mg PO HS 11/17/19 08/10/22 tablet,extended release 24 hr albuterol sulfate 90 mcg/actuation 90 mcg inhalation PRN PRN 12/04/19 08/10/22 aerosol inhaler (Ventolin HFA) Shortness Of Breath rosuvastatin 10 mg tablet 10 mg PO HS 12/04/19 08/10/22 folic acid 1 mg tablet 1 mg PO DAILY 05/07/20 08/10/22 duloxetine 30 mg capsule,delayed 30 mg PO DAILY 10/04/20 08/10/22 release lifitegrast 5 % eye drops in a 1 drp EACH EYE BID 10/05/20 08/10/22 dropperette (Xiidra) diltiazem HCl 180 mg 180 mg PO DAILY 06/18/21 08/10/22 capsule,extended release 24 hr (Cartia XT) methotrexate sodium 2.5 mg tablet 2.5 mg PO WEEKLY 10/21/21 08/10/22 insulin glargine U-300 conc 300 See Rx Instructions .Route .COMPLEX 07/29/22 08/10/22 unit/mL (3 mL) subcutaneous pen (Toujeo Max U-300 SoloStar) <HASMUKH Spangler Last Filed: 09/03/22 04:11> Allergies/Adverse reactions: Allergies Allergy/AdvReac Type Severity Reaction Status Date / Time shellfish derived Allergy Severe HIVES/RASH Verified 09/04/22 08:40 shrimp Allergy Severe RASH/HIVES Verified 09/04/22 08:40 celecoxib Allergy Intermediate RASH/HIVES Verified 09/04/22 08:40 fish oil Allergy Intermediate RASH/HIVES Verified 09/04/22 08:40 metformin Allergy Unknown Chest Pain Verified 09/04/22 08:40 Contrast Media Allergy Intermediate NAUSEA, Uncoded 09/04/22 08:40 HOT FLASHES, DYSPNEA <HASMUKH Spangler Last Filed: 09/03/22 04:11> Review of Systems Review of Systems: CONSTITUTIONAL: Denies fever, chills EYES: Denies visual changes, redness, or discharge. ENT: Denies rhinorrhea, congestion, sore throat, or otalgia. CARDIOVASCULAR: Denies chest pain, palpitations, or edema. RESPIRATORY: Denies cough or dyspnea. GASTROINTESTINAL: Denies abdominal pain, nausea, vomiting, or diarrhea. GENITOURINARY: Denies dysuria or hematuria. SKIN: Denies rash or itching. MUSCULOSKELETAL: See HPI NEUROLOGIC: Denies headache, numbness, dizziness, or weakness. PSYCHIATRIC: Denies anxiety or depression. <HASMUKH Spangler Last Filed: 09/03/22 04:11> [facility] Past Medical History Medical History: Medical History Adult BMI 30+ Asthma-COPD overlap syndrome PFTs 06/03/2021: Moderately severe obstructive abnormality without significant improvement with bronchodilator. Diffusion capacity normal. Lung volumes normal. Cancer of left breast Colon polyps Degenerative joint disease of knee Depression with anxiety Diabetic peripheral neuropathy Diverticulit
[2022-09-03] MEDS: oxyCODONE HCL (*CRX) 5 MG TAB IR PO (01:04)
[2022-09-03 02:27] VITALS: BP 103/59; PULSE 83; RESP 15; O2SAT 95
[2022-09-03 03:04] VITALS: BP 119/62; PULSE 83; RESP 14; TEMP 36.6; O2SAT 96
== END 2022-09-03 03:05 | disposition home or self-care (01) ==
PROVIDERS: Emergency Provider Physician Assistant; PCP Family Medicine
DX: M19.041 Primary osteoarthritis, right hand (principal); M18.9 Osteoarthritis of first carpometacarpal joint, unspecified; I48.0 Paroxysmal atrial fibrillation; J44.9 Chronic obstructive pulmonary disease, unspecified; E11.42 Type 2 diabetes mellitus with diabetic polyneuropathy; E89.0 Postprocedural hypothyroidism; K21.9 Gastro-esophageal reflux disease without esophagitis; I10 Essential (primary) hypertension; G47.33 Obstructive sleep apnea (adult) (pediatric); M06.9 Rheumatoid arthritis, unspecified; M85.80 Other specified disorders of bone density and structure, unspecified site; Z85.3 Personal history of malignant neoplasm of breast; Z86.010 Personal history of colon polyps; Z87.891 Personal history of nicotine dependence; Z98.42 Cataract extraction status, left eye; Z98.41 Cataract extraction status, right eye; Z90.49 Acquired absence of other specified parts of digestive tract; Z98.1 Arthrodesis status; Z90.710 Acquired absence of both cervix and uterus; Z90.12 Acquired absence of left breast and nipple; Z79.4 Long term (current) use of insulin; Z79.01 Long term (current) use of anticoagulants; Z79.85 Long-term (current) use of injectable non-insulin antidiabetic drugs
CPT/HCPCS: 73130; 99283; A9270

== ENCOUNTER → 2022-10-01 14:34 | Outpatient (CLI) | payer MEDICARE, SELFPAY ==
--- NOTE | ~2022-10-01 | MM_ITS ---
EXAMINATION: MM screening taryn RT w jose angel HISTORY: Screening mammogram; status post left mastectomy in 1991 for breast cancer. TECHNIQUE: Craniocaudal and mediolateral oblique 3-D tomosynthesis images were obtained and synthetic 2-D images were generated. CAD analysis was submitted and interpreted. COMPARISON: 09/29/2021, 08/06/2020, 04/26/2019 right screening mammogram examinations BREAST PARENCHYMAL COMPOSITION: There are scattered areas of fibroglandular density. FINDINGS: Stable small benign circumscribed upper outer quadrant right intramammary lymph node. There is no evidence of suspicious mass, calcification, or architectural distortion to suggest malignancy in either breast. There has been no suspicious interval change. IMPRESSION: 1. Status post left mastectomy for breast cancer. No mammographic evidence of right breast malignancy . 2. Recommend routine screening mammography in one year. BI-RADS Category 1: Negative Reviewed, dictated and finalized at location [facility]. IMPRESSION: 1. Status post left mastectomy for breast cancer. No mammographic evidence of r ight breast malignancy. 2. Recommend routine screening mammography in one year. BI-RADS Category 1: Negative
== END ==
PROVIDERS: PCP Family Medicine; Visit Provider Family Medicine
DX: Z12.31 Encounter for screening mammogram for malignant neoplasm of breast (principal)
CPT/HCPCS: 77063; 77067

== ENCOUNTER 2022-10-14 16:28 | Emergency (ER) | payer MEDICARE, SELFPAY ==
[2022-10-14 16:30] VITALS: BP 120/63; PULSE 88; RESP 20; TEMP 36.3; O2SAT 97
--- NOTE | 2022-10-14 16:47 | ECG_ITS ---
Measurements Intervals [place] Rate: 86 P: 75 DE: 246 QRS: 7 QRSD: 91 T: 41 QT: 410 QTc: 492 Interpretive Statements SINUS RHYTHM WITH FIRST DEGREE AV BLOCK MODERATE VOLTAGE CRITERIA FOR LVH, CONSIDER NORMAL VARIANT [MEETS CRITERIA IN ONE OF: R(aVL), S(V1), R(V5), R(V5/V6)+S(V1)] NONSPECIFIC T-WAVE ABNORMALITY NORMAL ECG COMPARED TO ECG 06/19/2021 09:32:30 NO DIFFERENCE Electronically Signed On 10-15-2022 13:07:15 CDT by Irineo Poole M.D.
[2022-10-14 16:56] LABS: Basophils Percent Auto 0.2 % (0.2-1.2); Hematocrit 35.6 % (37.0-47.0); Hemoglobin 11.8 g/dL (12.0-15.0); Immature Granulocyte Absolute 0.04 K/mm3 (0.00-0.031); Immature Granulocyte Percent A 0.5 % (0-0.5); Lymphocytes Absolute Auto 1.83 K/mm3 (0.9-3.2); Mean Corpuscular HGB Conc 33.1 g/dl (32-36); Mean Corpuscular Hemoglobin 28.9 pg (26-34); Mean Corpuscular Volume 87.3 fl (80-100); Mean Platelet Volume 9.2 fl (7.4-10.4); Monocytes Absolute Auto 1.1 K/mm3 (0.1-0.6); Monocytes Percent Auto 12.4 % (2.6-8.5); Neutrophils Absolute Auto 5.7 K/mm3 (1.3-6.7); Neutrophils Percent Auto 65.9 % (45.5-73.1); Platelet Count Result 469 k/mm3 (150-375); Red Blood Count 4.08 M/mm3 (4.2-5.4); Red Cell Distribution Width 13.6 % (11.5-14.5); White Blood Count 8.7 K/mm3 (4.5-10.0)
[2022-10-14 17:01] VITALS: BP 131/53; PULSE 86; RESP 16; O2SAT 96
[2022-10-14 17:07] LABS: Alanine Aminotransferase 24 U/L (6-35); Alkaline Phosphatase 99 U/L (38-126); Anion Gap 10 mmol/L (8-16); Aspartate Amino Transferase 35 U/L (14-36); Bilirubin,Total 0.9 mg/dL (0.2-1.3); Blood Urea Nitrogen 12 mg/dL (7-17); Calcium 8.6 mg/dL (8.4-10.2); Carbon Dioxide 28 mmol/L (22-30); Chloride 92 mmol/L (98-107); Estimated CRCL calculation 59 ml/min; Estimated Glomerular Filt Rate > 60; Glucose 181 mg/dL (65-110); Magnesium 1.7 mg/dL (1.6-2.3); Sodium 130 mmol/L (137-145)
[2022-10-14] MEDS: POTASSIUM CHLORIDE 20 MEQ PACKET (FOR LIQUID) 40 MEQ PO ×2 (17:42)
[2022-10-14] MEDS: KCL 20 MEQ/SW 100 ML 100 ML 50 MEQ IVPB (17:44)
--- NOTE | 2022-10-14 17:46 | ED.GENADULT ---
HPI - General Adult General Chief complaint: Recheck/Abnormal Lab/Rx Stated complaint: Low K+ Time Seen by Provider: 10/14/22 16:39 History of Present Illness HPI narrative: 77-year-old female presented the ED for evaluation after having a low potassium. Patient has had low potassium previously. Patient did have outpatient labs and had a low potassium today. Patient did have lunch after the low potassium. Patient denies any other complaints. Related Data Home Medications Medication Instructions Recorded Confirmed budesonide-formoterol HFA 160 2 puff inhalation BID 11/17/19 08/10/22 mcg-4.5 mcg/actuation aerosol inhaler (Symbicort) metoprolol succinate 25 mg 25 mg PO HS 11/17/19 08/10/22 tablet,extended release 24 hr albuterol sulfate 90 mcg/actuation 90 mcg inhalation PRN PRN 12/04/19 08/10/22 aerosol inhaler (Ventolin HFA) Shortness Of Breath rosuvastatin 10 mg tablet 10 mg PO HS 12/04/19 08/10/22 folic acid 1 mg tablet 1 mg PO DAILY 05/07/20 08/10/22 duloxetine 30 mg capsule,delayed 30 mg PO DAILY 10/04/20 08/10/22 release lifitegrast 5 % eye drops in a 1 drp EACH EYE BID 10/05/20 08/10/22 dropperette (Xiidra) diltiazem HCl 180 mg 180 mg PO DAILY 06/18/21 08/10/22 capsule,extended release 24 hr (Cartia XT) methotrexate sodium 2.5 mg tablet 2.5 mg PO WEEKLY 10/21/21 08/10/22 insulin glargine U-300 conc 300 See Rx Instructions .Route .COMPLEX 07/29/22 08/10/22 unit/mL (3 mL) subcutaneous pen (Toujeo Max U-300 SoloStar) Allergies Allergy/AdvReac Type Severity Reaction Status Date / Time shellfish derived Allergy Severe HIVES/RASH Verified 10/14/22 16:33 shrimp Allergy Severe RASH/HIVES Verified 10/14/22 16:33 celecoxib Allergy Intermediate RASH/HIVES Verified 10/14/22 16:33 fish oil Allergy Intermediate RASH/HIVES Verified 10/14/22 16:33 metformin Allergy Unknown Chest Pain Verified 10/14/22 16:33 Contrast Media Allergy Intermediate NAUSEA, Uncoded 09/04/22 08:40 HOT FLASHES, DYSPNEA Review of Systems Review of Systems: All systems reviewed & are unremarkable except as noted in HPI and below PMFSH Past Medical History Medical History Adult BMI 30+ Asthma-COPD overlap syndrome PFTs 06/03/2021: Moderately severe obstructive abnormality without significant improvement with bronchodilator. Diffusion capacity normal. Lung volumes normal. Cancer of left breast Colon polyps Degenerative joint disease of knee Depression with anxiety Diabetic peripheral neuropathy Diverticulitis GERD (gastroesophageal reflux disease) Hypertension Hypothyroidism (acquired) Insulin dependent type 2 diabetes mellitus Hemoglobin A1c 10.02 April 2020 Obesity Obstructive sleep apnea Intolerant to CPAP. Osteopenia Paroxysmal atrial fibrillation (~12/2020) Echocardiogram 12/2020: Normal left ventricular systolic function EF 65-70%, mildly increased left ventricular wall thickness, diastolic function abnormal, global longitudinal strain abnormal at -15%, left atrial chamber mildly enlarged, mild mitral valve regurgitation, mild tricuspid regurgitation Rheumatoid arthritis Vitiligo Surgical History Surgical History History of appendectomy History of bilateral cataract extraction History of cardiac catheterization Unremarkable per patient report. History of cholecystectomy History of colonoscopy with polypectomy History of fusion of cervical spine History of hysterectomy History of incision and drainage (05/2018) Right cheek abscess. History of left mastectomy History of thyroidectomy Family History Family History Father Diabetes mellitus Hypertension Cerebrovascular accident Family history of malignant melanoma Mother Diabetes mellitus Hypertension Family history of lung cancer Sibling Family history of malignant melano
[2022-10-14 17:54] LABS: Appearance Urine Clear (Clear); Bacteria Urine 1+ /hpf; Bilirubin Urine Negative (Negative); Blood Urine Negative (Negative); Color Urine Dark Yellow (Yellow); Glucose Urine UA Negative (Negative); Hyaline Casts Urine Present /lpf; Ketones Urine 1+ mg/dL (Negative); Leukocyte Esterase Ur Negative LEU/UL (Negative); Nitrate Urine Negative (Negative); Protein Urine 1+ mg/dL (Negative); RBC Urine 0-2 /hpf (0-2); Specific Grav Ur 1.016 (1.001-1.035); Squamous Epithelial Cell Urine Moderate /hpf (Few); WBC Urine 0-5 /hpf; pH Urine 6.5 (5.0-9.0)
[2022-10-14 17:55] LABS: Add Urine Microscopic? YES
[2022-10-14] MEDS: SODIUM CHLORIDE 0.9% IV 500 ML 50 ML IV CONT (18:06)
[2022-10-14 19:51] VITALS: BP 135/55; PULSE 91; RESP 14; O2SAT 98
== END 2022-10-14 20:39 | disposition home or self-care (01) ==
PROVIDERS: Emergency Provider Emergency Medicine; PCP Family Medicine
DX: E87.6 Hypokalemia (principal); J44.9 Chronic obstructive pulmonary disease, unspecified; E11.42 Type 2 diabetes mellitus with diabetic polyneuropathy; I48.0 Paroxysmal atrial fibrillation; I10 Essential (primary) hypertension; E89.0 Postprocedural hypothyroidism; E66.9 Obesity, unspecified; Z68.28 Body mass index [BMI] 28.0-28.9, adult; G47.33 Obstructive sleep apnea (adult) (pediatric); M85.80 Other specified disorders of bone density and structure, unspecified site; M06.9 Rheumatoid arthritis, unspecified; M17.9 Osteoarthritis of knee, unspecified; Z85.3 Personal history of malignant neoplasm of breast; Z86.010 Personal history of colon polyps; Z87.891 Personal history of nicotine dependence; Z98.42 Cataract extraction status, left eye; Z98.41 Cataract extraction status, right eye; Z90.49 Acquired absence of other specified parts of digestive tract; Z98.1 Arthrodesis status; Z90.710 Acquired absence of both cervix and uterus; Z90.12 Acquired absence of left breast and nipple; Z79.4 Long term (current) use of insulin; Z79.01 Long term (current) use of anticoagulants; R82.998 Other abnormal findings in urine
CPT/HCPCS: 36415; 80053; 81001; 83735; 85025; 87086; 93005; 96365; 96366; 99284; A9270; J3480; J7040

== ENCOUNTER 2022-10-15 16:15 | Outpatient (CLI) | payer MEDICARE, SELFPAY ==
[2022-10-15 18:39] LABS: Iron 54 ug/dL (37-170)
[2022-10-15 18:49] LABS: Percent Iron Saturation 18 % (20-50)
== END 2022-10-15 16:16 | disposition home or self-care (01) ==
LOC: ANHLAB 16:17
PROVIDERS: PCP Family Medicine; Visit Provider Internal Medicine Pulmonary Disease
DX: E11.9 Type 2 diabetes mellitus without complications (principal)
CPT/HCPCS: 36415; 82728; 83540; 83550

== ENCOUNTER → 2023-04-08 12:04 | Outpatient (CLI) | payer MEDICARE, SELFPAY ==
--- NOTE | ~2023-04-08 | DEXA_ITS ---
Bone Density Report Name: MEMO CRUZ Age: 77 Sex: Female Ethnicity: White Date of : 1945 Indication: postmenopausal; screening for osteoporosis; history of glucocorticoids; asthma or emphysema; hysterectomy; rheumatoid arthritis; Referring Provider: Colleen Richard Study: Bone densitometry was performed. Exam Date: April 08, 2023 Accession number: [id number] Bone Density: Region BMD T-score Z-score Classification AP Spine (L1-L4) 1.095 0.4 3.1 Normal Femoral Neck (Left) 0.754 -0.9 1.4 Normal Total Hip (Left) 0.882 -0.5 1.5 Normal Femoral Neck (Right) 0.834 -0.1 2.1 Normal Total Hip (Right) 0.922 -0.2 1.9 Normal Total Hip Mean 0.902 -0.4 1.7 Normal World Health Organization criteria for BMD impression classify patients as: Normal (T-score at or above -1.0), Osteopenia (T-score between -1.0 and -2.5), or Osteoporosis (T-score at or below -2.5). 10-year Fracture Risk: FRAX not reported because: All T-scores for Spine Total, Hip Total, Femoral Neck at or above -1.0 Previous Exams: Region Exam Age BMD T-score BMD Change BMD Change Date g/cm2 vs Baseline vs Previous AP Spine(L1-L4) 04/08/2023 77 1.095 0.4 0.102* -0.025* 12/23/2018 73 1.120 0.7 0.127* 0.127* 12/02/2016 71 0.993 -0.5 Total Hip(Left) 04/08/2023 77 0.882 -0.5 -0.033* -0.013 12/23/2018 73 0.896 -0.4 -0.020 -0.020 12/02/2016 71 0.915 -0.2 Total Hip(Right) 04/08/2023 77 0.922 -0.2 0.012 -0.019 12/23/2018 73 0.942 0.0 0.031* 0.031* 12/02/2016 71 0.911 -0.3 *Denotes significance at 95% confidence level, LSC for AP Spine = 0.022 g/cm2, LSC for Total Hip = 0.027 g/cm2 Clinical Information Provided by Patient: Has taken Glucocorticoids Has rheumatoid arthritis Has used the following medications: Vitamin D, Calcium Has the following medical conditions: Asthma or Emphysema, Hysterectomy, COPD Patient maximum height was 62 Menopause Age: 30 No regular weight bearing exercise Does not regularly consume dairy products Onset of menses at age 14 Number of children 3 Impression: The patient has normal bone mass. The patient has risk factors, including: history of glucocorticoid therapy. The BMD for the AP Spine(L1-L4) decreased, changing by -0.025 since the last DXA exam. Discussion: BONE DENSITY IS ABOVE THE MINIMUM DESIRABLE LEVEL
== END ==
PROVIDERS: PCP Family Medicine; Visit Provider Internal Medicine Endocrinology, Diabetes & Metabolism
DX: Z78.0 Asymptomatic menopausal state (principal)
CPT/HCPCS: 77080

== ENCOUNTER 2023-08-06 19:36 | Emergency (ER) | payer MEDICARE, SELFPAY ==
--- NOTE | ~2023-08-06 | CT_ITS ---
CT pelvis wo con Ordering provider: Percy Emerson MD History: . fracture . Comparison: None. Technique: CT pelvis without oral and IV contrast. Radiation reduction technique utilized. Findings: BONES: No pelvic fracture or hip dislocation. Age appropriate degenerative changes of the visualized lower lumbar spine. The hip and sacroiliac joint spaces are well maintained. SUPERFICIAL SOFT TISSUES: Normal. PELVIC ORGANS: The bladder is normal. VISUALIZED BOWEL AND MESENTERY: Normal. No free air or free fluid. No lymphadenopathy. RETROPERITONEUM: Moderate atheromatous disease. Thickening of the skin in the anterior abdominal wall which may be inflammatory or posttraumatic. IMPRESSION: No definite fractures seen. Reviewed, dictated and finalized at location A. IMPRESSION: No definite fractures seen.
--- NOTE | ~2023-08-06 | CT_ITS ---
CT brain wo con Ordering provider: Percy Emerson MD History: 77 years Female with . head injury . Comparison: None. Technique: CT of the head without contrast. Radiation reduction technique utilized. FINDINGS: BRAIN PARENCHYMA AND CSF SPACES: Deep white matter ischemic changes with mild ventricular dilatation. No midline shift, mass effect or hemorrhage. The brain parenchyma and other CSF spaces are otherwis e normal. VISUALIZED PARANASAL SINUSES: Well aerated. MASTOIDS: Well aerated. BONES: The bones appear intact. SOFT TISSUES: Visualized nasopharynx is normal. Superficial soft tissues are normal. IMPRESSION: No acute intracranial findings. Reviewed, dictated and finalized at location A.
[2023-08-06 19:40] VITALS: BP 106/53; PULSE 88; RESP 16; TEMP 36.4; O2SAT 97
[2023-08-06 19:52] LABS: Glucose Point of Care 68 mg/dl (65-105)
[2023-08-06] MEDS: MORPHINE SULFATE (*CRX) 2 MG/ML INJ IV PUSH (20:44)
--- NOTE | 2023-08-06 21:05 | ED.FALL ---
HPI - Fall General Chief Complaint: Fall Stated Complaint: L HIP PAIN S/P GLF Time Seen by Provider: 08/06/23 19:49 History of Present Illness HPI Narrative: Patient is a 77-year-old female who presents ER after a fall at home. She is opening her freezer door when it swung back and struck her in the head. She fell onto her buttock. She did not lose consciousness. She is on anticoagulation for her AFib. She reports that she had pain in her right buttock area and was unable to stand. Known lower extremity numbness or tingling. She has spasms of pain. Related Data Home Medications Medication Instructions Recorded Confirmed metoprolol succinate 25 mg 25 mg PO HS 11/17/19 08/02/23 tablet,extended release 24 hr albuterol sulfate 90 mcg/actuation 90 mcg inhalation PRN PRN 12/04/19 08/02/23 aerosol inhaler (Ventolin HFA) Shortness Of Breath rosuvastatin 10 mg tablet 10 mg PO HS 12/04/19 08/02/23 folic acid 1 mg tablet 1 mg PO DAILY 05/07/20 08/02/23 duloxetine 30 mg capsule,delayed 30 mg PO DAILY 10/04/20 08/02/23 release lifitegrast 5 % eye drops in a 1 drp EACH EYE BID 10/05/20 08/02/23 dropperette (Xiidra) diltiazem HCl 180 mg 180 mg PO DAILY 06/18/21 08/02/23 capsule,extended release 24 hr (Cartia XT) methotrexate sodium 2.5 mg tablet 2.5 mg PO WEEKLY 10/21/21 08/02/23 leflunomide 20 mg tablet 20 mg PO DAILY 10/15/22 08/02/23 potassium chloride 10 mEq 10 meq PO DAILY 11/03/22 08/02/23 tablet,extended release insulin glargine U-300 conc 300 See Rx Instructions .Route .COMPLEX 07/05/23 08/02/23 unit/mL (3 mL) subcutaneous pen (Toujeo Max U-300 SoloStar) Allergies Allergy/AdvReac Type Severity Reaction Status Date / Time shellfish derived Allergy Severe HIVES/RASH Verified 08/06/23 19:46 shrimp Allergy Severe RASH/HIVES Verified 08/06/23 19:46 celecoxib Allergy Intermediate RASH/HIVES Verified 08/06/23 19:46 fish oil Allergy Intermediate RASH/HIVES Verified 08/06/23 19:46 metformin Allergy Unknown Chest Pain Verified 08/06/23 19:46 Contrast Media Allergy Intermediate NAUSEA, Uncoded 08/06/23 19:46 HOT FLASHES, DYSPNEA Review of Systems Review of Systems: All systems reviewed & are unremarkable except as noted in HPI and below Constitutional: Constitutional: Reports no additional constitutional complaints Musculoskeletal: Musculoskeletal: Reports back pain, Denies arthralgias, Denies joint swelling and Reports muscle cramps Integumentary/Breasts: Skin/Breast: Reports system reviewed and no additional complaints, except as docu Neurologic: Reports system reviewed and no additional complaints, except as documented [facility] Past Medical History Medical History Adult BMI 30+ Asthma-COPD overlap syndrome PFTs 06/03/2021: Moderately severe obstructive abnormality without significant improvement with bronchodilator. Diffusion capacity normal. Lung volumes normal. Cancer of left breast Colon polyps Degenerative joint disease of knee Depression with anxiety Diabetic peripheral neuropathy Diverticulitis GERD (gastroesophageal reflux disease) Hypertension Hypothyroidism (acquired) Insulin dependent type 2 diabetes mellitus Hemoglobin A1c 10.02 April 2020 Obesity Obstructive sleep apnea Intolerant to CPAP. Osteopenia Paroxysmal atrial fibrillation (~12/2020) Echocardiogram 12/2020: Normal left ventricular systolic function EF 65-70%, mildly increased left ventricular wall thickness, diastolic function abnormal, global longitudinal strain abnormal at -15%, left atrial chamber mildly enlarged, mild mitral valve regurgitation, mild tricuspid regurgitation Rheumatoid arthritis Vitiligo Surgical History Surgical History History of appendectomy History of bilateral cataract extraction History of cardiac catheterization Unremarkable per patient report. History of cholec
--- NOTE | 2023-08-06 21:40 | PC.NURSE ---
Pt given sandwich, apple juice, orange juice, pretzels and fruit cup due to low blood sugar. Will repeat bedside glucose test.
[2023-08-06 21:46] LABS: Glucose Point of Care 82 mg/dl (65-105)
[2023-08-06] MEDS: ACETAMINOPHEN 325 MG TABLET 650 MG PO (22:04)
[2023-08-06 22:12] VITALS: BP 111/87; PULSE 87; RESP 18; O2SAT 98
== END 2023-08-06 22:13 | disposition home or self-care (01) ==
PROVIDERS: Emergency Provider Emergency Medicine; PCP Family Medicine
DX: M54.50 Low back pain, unspecified (principal); I48.91 Unspecified atrial fibrillation; Z79.01 Long term (current) use of anticoagulants; J44.9 Chronic obstructive pulmonary disease, unspecified; F32.A Depression, unspecified; F41.9 Anxiety disorder, unspecified; E11.9 Type 2 diabetes mellitus without complications; Z79.4 Long term (current) use of insulin; G47.30 Sleep apnea, unspecified; E03.9 Hypothyroidism, unspecified; M06.9 Rheumatoid arthritis, unspecified
CPT/HCPCS: 70450; 72192; 82948; 96374; 99284; A9270; J2270

== ENCOUNTER 2023-11-24 14:19 | Outpatient (CLI) | payer MEDICARE, SELFPAY ==
--- NOTE | ~2023-11-24 | MM_ITS ---
EXAMINATION: MM screening taryn RT w jose angel HISTORY: Screening TECHNIQUE: Craniocaudal and mediolateral oblique 3-D tomosynthesis images were obtained and synthetic 2-D images were generated. CAD analysis was submitted and interpreted. COMPARISON: Comparison to multiple prior studies sequentially, with oldest reviewed study dated 04/2017. BREAST PARENCHYMAL COMPOSITION: Not dense: There are scattered areas of fibroglandular density. FINDINGS: There is developing asymmetry in the upper outer quadrant of the right breast posterior thi rd. There are no suspicious calcifications or architectural distortion. IMPRESSION: 1. Developing focal asymmetry upper outer quadrant of the right breast posteriorly. 2. Additional mammographic views and possible breast ultrasound are recommended. BI-RADS Category 0: Incomplete: Needs additional imaging evaluation. Reviewed, dictated and finalized at location B. IMPRESSION: 1. Developing focal asymmetry upper outer quadrant of the right breast posterio rly. 2. Additional mammographic views and possible breast ultrasound are recommended . BI-RADS Category 0: Incomplete: Needs additional imaging evaluation.
== END 2023-11-24 14:20 | disposition home or self-care (01) ==
PROVIDERS: PCP Family Medicine; Visit Provider Family Medicine
DX: Z12.31 Encounter for screening mammogram for malignant neoplasm of breast (principal); R92.8 Other abnormal and inconclusive findings on diagnostic imaging of breast; Z90.12 Acquired absence of left breast and nipple
CPT/HCPCS: 77063; 77067

== ENCOUNTER 2023-12-21 09:21 | Outpatient (CLI) | payer MEDICARE, SELFPAY ==
--- NOTE | ~2023-12-21 | MMUS_ITS ---
EXAMINATION: MM diagnostic taryn RT w jose angel, US breast RT limited HISTORY: Follow-up right breast asymmetry TECHNIQUE: Additional 3-D tomosynthesis images of the right breast were performed and synthetic 2-D i mages were generated. CAD analysis was submitted and interpreted. High resolution Limited right breas t ultrasound was performed. COMPARISON: Comparison to multiple prior studies sequentially, with oldest reviewed study dated 05/2018. BREAST PARENCHYMAL COMPOSITION: Not dense: There are scattered areas of fibroglandular density. FINDINGS: MAMMOGRAPHIC FINDINGS: There is a persistent new focal asymmetry in the upper outer quadrant of the right breast without dis crete mass or architectural distortion. No suspicious calcifications. There is a benign appearing int ramammary lymph node in the upper outer quadrant ULTRASOUND: Limited right breast ultrasound: At 10:00, 4.5 cm from the nipple is an irregular shaped parallel marleni ented hypoechoic mass measuring 10 x 7 x 11 mm with marginal vascularity. At 10:00, 6.5 cm from the n ipple there is a normal-appearing intramammary lymph node measuring 6 mm. IMPRESSION: 1. Abnormal 11 mm right breast mass at 10:00, 4.5 cm from the nipple corresponding to the focal asymm etry seen on mammography. 2. Ultrasound-guided right breast biopsy recommended. BI-RADS category 4, suspicious findings. Reviewed, dictated and finalized at location B. IMPRESSION: 1. Abnormal 11 mm right breast mass at 10:00, 4.5 cm from the nipple correspond ing to the focal asymmetry seen on mammography. 2. Ultrasound-guided right breast biopsy recommended. BI-RADS category 4, suspicious findings.
== END 2023-12-21 09:22 | disposition home or self-care (01) ==
LOC: MICIMG 09:22
PROVIDERS: PCP Family Medicine; Visit Provider Physician Assistant
DX: R92.8 Other abnormal and inconclusive findings on diagnostic imaging of breast (principal)
CPT/HCPCS: 76642; 77061; 77065; G0279

== ENCOUNTER 2024-01-20 08:35 | Outpatient (CLI) | payer MEDICARE, SELFPAY ==
--- NOTE | ~2024-01-20 | MMUS_ITS ---
EXAMINATION: US breast biopsy RT w image, MM post biopsy invasive RT DATE: 01/20/2024 10:22 (accession [id number]), 01/20/2024 10:41 (accession [id number]) INDICATION: 78-year-old woman with a personal history of left-sided breast cancer post left-sided mas tectomy and axillary lymph node dissection in 1991 (without postoperative chemotherapy or radiation) for ultrasound-guided biopsy of a mammographic and sonographic abnormality within the upper outer margot drant of the right breast. Patient describes her previous malignancy as not hormone sensitive . ?Triple negative? BREAST PARENCHYMAL COMPOSITION:Scattered fibroglandular pattern. TECHNIQUE: The procedure including the risks, benefits, and alternatives was discussed with the patie nt. Risks discussed included bleeding and infection. The patient understood the risks and agreed to proceed. The skin overlying the upper outer quadrant of the right breast was prepped and draped in usual steri le fashion. Anesthetic was administered with 1% lidocaine subcutaneously. Limited ultrasound examination of the right breast was then again performed. At the 10:00 position of the right breast approximately 4.5 cm from the nipple is an irregular shadow ing focus with faint vascularity and an echogenic halo measuring 12.5 x 9.1 x 9 mm, suitable for biop sy. A 13G introducer was placed using ultrasound guidance into the abnormality at the 10:00 position of t he right breast, and the inner needle removed. A 14-gauge biopsy device was then used to obtain 3 biopsy specimens under continuous sonographic guid ance. The biopsy device was then removed, and through the introducer, a coil marker was placed. The entry site was cleaned and dressed with Steri-Strips. There were no immediate complications. Post biopsy mammography was then performed in both the CC and MLO positions demonstrating a coil micr oclip in the upper outer quadrant of the right breast without a significant perilesional hematoma. IMPRESSION: 1. Technically successful ultrasound-guided core needle biopsy of a suspicious sonographic and mammog raphic abnormality at the 10:00 position of the right breast, as detailed above. Pathology pending Reviewed, dictated and finalized at location A. ACT AND SERVICE CLERKS SUPERVISOR IMPRESSION: 1. Technically successful ultrasound-guided core needle biopsy of a suspicious sonographic and mammographic abnormality at the 10:00 position of the right iva ast, as detailed above. Pathology pending
== END 2024-01-20 08:36 | disposition home or self-care (01) ==
PROVIDERS: PCP Family Medicine; Visit Provider Physician Assistant
DX: R92.8 Other abnormal and inconclusive findings on diagnostic imaging of breast (principal); C50.411 Malignant neoplasm of upper-outer quadrant of right female breast
CPT/HCPCS: 19083; 88305; 88342; 88360; 88365; A4648

== ENCOUNTER 2024-04-20 12:20 | Emergency (ER) | payer MEDICARE, SELFPAY ==
[2024-04-20] VITALS (16 sets, daily range): BP systolic 161–217; BP diastolic 67–114; PULSE 85–123; RESP 17–26; TEMP 36.2–36.6; O2SAT 95–100
--- NOTE | ~2024-04-20 | XR_ITS ---
EXAMINATION: XR chest 1V portable DATE: 04/20/2024 14:03 INDICATION: Transient ischemic attack. TECHNIQUE: A single frontal view of the chest was obtained. COMPARISON: Chest 2 views 07/08/2021 FINDINGS: There is no pneumonia, pleural effusion, or pneumothorax. The heart size is normal. There a re surgical clips in the chest wall bilaterally. IMPRESSION: 1. No acute cardiopulmonary disease. Reviewed, dictated and finalized at location A. CLE DELIVERY WORKER
--- NOTE | ~2024-04-20 | CT_ITS ---
EXAMINATION: CTA BRAIN/CAROTID DATE: 04/20/2024 13:10 INDICATION: Transient ischemic episode TECHNIQUE: Computed tomographic angiography (CTA) of the head and neck was performed with 100 mL Omni paque-350 intravenous contrast. Multiplanar reconstructions and maximum intensity projection 3D-recon structions of the carotid arteries and of the intracranial arteries were created by the technologist on a separate workstation. Precontrast CT of the head was also obtained. Automated exposure control and iterative reconstruction technique were employed.The dose-length product was 1553.38 mGy-cm. COMPARISON: 08/06/2023 FINDINGS: Carotid arteries: Aortic arch is normal in caliber with some scattered non-hemodynamically significant atherosclerotic plaque and no dissection. The right vertebral artery is mildly dominant with 50% stenosis at the orig in of the left vertebral artery. There is 80% stenosis of the right carotid bulb relative to normal d istal artery lumen diameter (NASCET criteria). There is 60% stenosis of the left carotid bulb relativ e to normal distal artery lumen diameter. Mild emphysema. Visualized superior mediastinum and cervica l soft tissues are unremarkable. Severe cervical spondylosis. Head: No acute intracranial hemorrhage, acute infarction or abnormal extra axial fluid collection. There is mild to moderate scattered white matter hypoattenuation consistent with chronic small vessel ischemi c disease. Symmetric prominence of the sulci consistent with mild age-appropriate diffuse cerebral vo lume loss. No mass/mass effect. Ventricles are normal and symmetric. Changes of bilateral intraocular lens replacement. The orbits, paranasal sinuses and mastoid air cells are normal. Intracranial arteries Right vertebral artery is mildly dominant. There is mild, less than 750% stenosis along the proximal and distal portions of the intracranial left renal artery. There is a small fusiform aneurysm of the midportion of the intracranial left vertebral artery which measures up to 3.7 mm in maximal diameter. Calcified atherosclerotic plaque with mild, <50% stenosis at the bilateral carotid siphons. There is no hemodynamically significant stenosis in the vertebral, basilar and internal carotid arteries. No other aneurysms identified. The bilateral A1 segments are patent. The posterior cerebral arteries are supplied from the bilateral internal carotid arteries and patent bilateral posterior communicating a rteries. Cerebral arterial arborization appears symmetric. IMPRESSION: 1. 80% stenosis of the right carotid bulb relative to normal distal artery lumen diameter (NASCET cri teria). 2. 60% stenosis of the left carotid bulb relative to normal distal artery lumen diameter. 3. Mild nonhemodynamically stenosis at bilateral carotid siphons and at the proximal distal intracran ial portion of the left vertebral artery 4. 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 No other intracranial aneurysms, hemodynamically significant stenosis or thr ombosis. 4. Mild emphysema. Reviewed, dictated and finalized at location A. CTOR OF OPERATIONS SUPPORT IMPRESSION: 1. 80% stenosis of the right carotid bulb relative to normal distal artery lume n diameter (NASCET criteria). 2. 60% stenosis of the left carotid bulb relative to normal distal artery lumen diameter. 3. Mild nonhemodynamically stenosis at bilateral carotid siphons and at the pro ximal distal intracranial portion of the left vertebral artery 4. 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 No other intracranial aneurysms, hemodynamically significant stenosis or thrombosis. 4. Mild emphysema.
--- OUTSIDE RECORDS SUMMARY | 2024-04-20 12:24 | XMS_ITS | Continuity of Care Document ---
Author Organization [facility] Address [address] [place] [address] [address] [place] [address] Phone Care Team Providers Care Doll Dresser Name Role Phone Felipe OD, Andrew Unavailable Unavailable Advance Directives Directive Yes / No Effective Date File Name No Information Encounters Encounter Description Practice Location Reason(s) For Visit Diagnoses Date Provider Providers Copied on Encounter [facility], [address], [place], [place], [id number], [place] tel:[phone] [facility] No Information Sep-2 3-200 1 Felipe OD Andrew. [address] , [address], [place], [address], [place]. tel:[phone] Family History Family Member Type Diagnosis Age [...]
--- OUTSIDE RECORDS SUMMARY | 2024-04-20 12:24 | XMS_ITS | Clinical Summary ---
Author Organization [facility] Address [address] [place] [id number] Care Team Providers Care Dental Insurance Coordinator Name Role Phone David Pruitt MD Primary Care Provider [phone] Active Problems Problem Noted Date Diagnosed Date Bilateral hip bursitis 09/08/2019 Encounters Date Type Department Care Team Description 02/11/2024 12:39 PM MIX HOUSE TENDER - 02/11/2024 11:59 PM [facility] Hospital Encounter [facility] [address] [place] [address] Aram Faulkner MD Discharge Disposition: Home or Self Care (Routine Discharge) 02/11/2024 Travel from Last 3 Months Social History Tobacco Use Types Packs/Day Years Used Date Smoking Tobacco: Never Assessed Comments Unknown Sex and Gender Information Value Date Recorded Sex Assigned at Not on file Legal Sex Female 5:43 PM CDT Gender Identity Not on file Sexual Orientation Not on file Last Filed Vital Signs Vital Sign Reading Time Taken Comments Blood Pressure 107/46 07/09/2016 3:05 PM CDT Pulse 77 07/09/2016 3:05 PM CDT Temperature - - Respiratory Rate - - Oxygen Saturation - - Inhaled Oxygen Concentration - - Weight 84.4 kg (186 lb) 07/09/2016 3:05 PM CDT Height 165.1 cm (5' 5 ) 07/09/2016 3:05 PM CDT Body Mass Index 30.95 07/09/2016 3:05 PM CDT Plan of Treatment Health Maintenance Due Date Last Done Comments Annual Medicare Wellness Visit 09/30/2008 Dexa Scan (General) 09/30/2008 RSV Immunization or 60+ Years (1 - 1-dose 75+ series) 09/30/2018 COVID-19 Vaccine ( season) 2023 01/01/2021, 05/03/2020 Influenza Adult (#1) 2023 01/09/2020, 04/01/2019, 02/01/2019, Additional history exists DTaP, Tdap and Td Vaccines (2 - Td or Tdap) 05/08/2025 05/09/2015 Zoster Vaccines Completed 03/09/2019, 12/13/2018 Pneumococcal Vaccine: 65+ Years Completed 02/05/2021, 12/12/2015 Meningococcal B Vaccine Aged Out No l onger eligible based on patient's age to complete this topic Meningococcal Vaccine Aged Out No parish [place] eligible based on patient's age to complete this topic RSV Immunizations Under 20 Months Aged Out No longer eligible based on patient's age to complete this topic Procedures Procedure Name Priority Date/Time Associated Diagnosis Comments US AXILLARY NON BREAST RT Routine 02/11/2024 1:24 PM MIX HOUSE TENDER Breast cancer, right breast ([facility]) Axillary lymphadenopathy from Last 3 Months Results * US AXILLARY NON BREAST RT (02/11/2024 1:24 PM MIX HOUSE TENDER) Anatomical Region Laterality Modality Extremity Ultrasound 02/11/2024 1:18 PM MIX HOUSE TENDER Impressions 02/11/2024 1:19 PM MIX HOUSE TENDER IMPRESSION: Benign-appearing lymph node in the right axilla. Ordered By: RAAM FAULKNER Interpreted By: Alek Boucher, 02/11/2024 1:18 PM Narrative 02/11/2024 1:19 PM MIX HOUSE TENDER [facility] [address] [place], [place] [address] IMAGING STUDIES: US AXILLARY NON BREAST RT DATE: 02/11/2024 1:00 PM CLINICAL HISTORY: right breast cancer . COMPARISON: No Comparisons. FINDINGS: . Imaging of the right axilla demonstrates nonpathologic size lymph node. Measures 2.1 x 0.6 x 1.9 cm. Cortex is not thickened. Color flow seen to the hilum. No shadowing. Procedure Note Jose Boucher MD - 02/11/2024 [facility] [address] [place], [place] [address] IMAGING STUDIES: US AXILLARY NON BREAST RT DATE: 02/11/2024 1:00PM CLINICAL HISTORY: right breast cancer . COMPARISON: No Comparisons. FINDINGS: . Imaging of the right axilla demonstrates nonpathologic size lymph node. Measures 2.1 x 0.6 x 1.9 cm. Cortex is not thickened. Color flow seen tothe hilum. No shadowing. IMPRESSION: Benign-appearing lymph node in the right axilla. Ordered By: ARAM FAULKNER Interpreted By: Alek Boucher, 02/11/2024 1:18 PM Aram Faulkner MD ULTRASOUND Final Result from Last [address] [place] [address] [employer] MEDICARE [facility] Care Teams Dental Insurance Coordinator Relationship Specialty Start Date End Date David Pruitt MD [address] [place] [address] PCP - General FAMILY PRACTICE 10/09/21
--- OUTSIDE RECORDS SUMMARY | 2024-04-20 12:24 | XMS_ITS | Referral Summary ---
Author Organization [facility] Address [address] [place] [address] Care Team Providers Care Resident Services Supervisor Name Role Phone David Pruitt MD Primary Care Provider Aram Oro MD Unavailable David Fried MD Unavailable [phone] Chema Foreman MD Unavailable [phone] Encounters Date Type Department Care Team Description 04/07/2024 10:28 AM MIXING MACHINE TENDER [employer] - 04/07/2024 11:59 PM MIXING MACHINE TENDER [employer] Hospital Encounter [facility] Breast Imaging [address] [place] [phone] Invasive ductal carcinoma of breast, female, right (HCC) Discharge Disposition: Discharge to home or self care 04/07/2024 11:29 AM MIXING MACHINE TENDER [employer] R[employer] - 04/07/2024 11:59 PM MIXING MACHINE TENDER [employer] Hospital Encounter [facility] Medical Office Bldg 1 [facility] [address] [place] [address] Invasive ductal carcinoma of breast, female, right (HCC) Discharge Disposition: Discharge to home or self care 04/07/2024 1:00 PM MIXING MACHINE TENDER [employer] R[employer] - 04/07/2024 2:35 PM MIXING MACHINE TENDER [employer] Surgery [facility] Main OR [address] [place] [phone] Aram Oro MD RIGHT BREAST NEEDLE LOCALIZATION LUMPECTOMY 04/07/2024 1:05 PM MIXING MACHINE TENDER [employer]OD Anesthesia Event [facility] OR [address] [place] [phone] Andrew Rubalcava MD Boivin, James R., MD 04/07/2024 9:38 AM MIXING MACHINE TENDER [employer] - 04/07/2024 4:40 PM MIXING MACHINE TENDER [employer] Hospital [place] [facility] [place] [address] [place] [id number] Aram Oro MD Invasive ductal carcinoma of breast, female, right (HCC) Discharge Disposition: Discharge to home or self care 04/04/2024 Telephone [facility] Medical Group Cardiology [address] [place] [address] Chema Foreman MD cardiac clearance; Abnormal ECG 03/31/2024 3:00 PM MIXING MACHINE T[employer]ER [employer] Pre-Admission Testing [facility] Pre Admit Testing [address] [place] [phone] Pre-op testing (Primary Dx); Diabetes mellitus due to underlying condition with complication (CMS/HCC) (HCC) 03/27/2024 Orders Only JAROD WINN [address] [address] Lobo Driscoll, DO Malignant neoplasm of upper-outer quadrant of right breast in female, estrogen receptor negative (HCC) 03/27/2024 3:30 PM MIXING MACHINE TENDER [employer] ROD Office Visit [facility] Oncology [address] [place] [address] [address] [place] [phone] Lobo Driscoll, DO Malignant neoplasm of upper-outer quadrant of right breast in female, estrogen receptor positive (HCC) (Primary Dx) 03/22/2024 Orders Only [facility] Oncology [address] [place] [address] [place] [phone] Lobo Driscoll, DO Malignant neoplasm of upper-outer quadrant of right breast in female, estrogen receptor negative (HCC) (Primary Dx) 03/11/2024 10:00 AM MIXING MACHINE TENDER [employer] ROD Consult [facility] Medical Office Building 2 Radiation Oncology [address] [place] [phone] David Fried MD Class 2 obesity (Primary Dx); Malignant neoplasm of upper-outer quadrant of right breast in female, estrogen receptor positive (HCC) 02/11/2024 2:05 PM MIXING MACHINE TENDER [employer] ROD Lab [facility] Office Building [address] [place] [address] 01/20/2024 12:05 AM MIXING MACHINE TENDER [employer] R[employer] - 01/20/2024 11:59 PM MIXING MACHINE TENDER [employer] R[employer] Hospital Encounter [facility] Outside Images [address] [place] [phone] Discharge Disposition: Discharge to home or self care 01/20/2024 - 01/20/2024 11:59 PM MIXING MACHINE TENDER [employer] ROD Hospital Encounter [facility] Outside Images [address] [place] [address] Discharge Disposition: Discharge to home or self care from Last 3 Months Allergies Active Allergy Reactions Criticality Noted Date Comments Atorvastatin Muscle pain Medium 01/01/2019 Myalgias on atorvastatin 20 mg Greenwood-3 Fatty Acids Rash Medium 01/27/2018 Flecainide Other (See comments) Low 01/21/2021 QT prolongation Metformin Chest tightness Medium 06/30/2017 House Dust Iodinated Contrast Media Other (See comments) Medium 06/30/2017 Dizzy, hot, nauseated, no hives or wheezing. Medications PROAIR HFA 90 mcg/actuation inhaler 05/07/[address] (CYMBALTA) 60 mg capsule Take 1 capsule (60 mg total) by mouth daily 30 mg in the am and 60 mg in the pm 06/16/19 18 Active hydroCHLOROthiazid e (HYDRODIURIL) 25 mg tablet Take 1 tablet (25 mg total) by mouth daily 05/01/19 18 Active levothyroxine sodium (LEVOTHYROXINE ORAL) Take 100 mcg by mouth band master before breakfast 06/16/19 18 Active montelukast (SINGULAIR) 10 mg tablet 06/16/19 18 Active omeprazole magnesium 20 mg capsule,delayed release(DR/EC) 40 mg as needed Active SPIRIVA WITH HANDIHALER 18 mcg per inhalation capsule 06/03/19 18 Active cetirizine (ZyrTEC) 10 mg tablet Take 1 tablet (10 mg total) by mouth daily Active multivitamin with minerals tablet Take 1 tablet by mouth daily Active FLUoxetine (PROzac) 20 mg capsule Take 1 capsule (20 mg total) by mouth daily Active methotrexate (TREXALL) 10 mg tablet Take 1 tablet (10 mg total) by mouth every 7 days Sundays12/15/19 21 Active losartan (COZAAR) 50 mg tablet Take 1 tablet (50 mg total) by mouth daily 12/04/19 21 Active folic acid (FOLVITE) 1 mg tablet Take 1 tablet (1 mg total) by mouth daily Active EPINEPHrine 0.3 mg/0.3 mL auto-injection syringe Active TOUJEO MAX 300 unit/mL (3 mL) pen for injection 40 Units daily 01/16/20 22 Active metoprolol XL (TOPROL-XL) 25 mg extended release tablet Take 1 tablet by mouth once daily 90 tablet 2 06/11/19 23 Active fluticasone propion-salmeteroL (AirDuo RespiClick) 232-14 mcg/actuation inhaler every 12 hours Activ e tirzepatide (MOUNJARO) 10 mg/0.5 mL pen injector Inject 0.5 mL (10 mg total) under the skin once a week Sundays08/01/19 23 Active dilTIAZem XR (Cartia XT) 180 mg 24 hr capsuleIndications :Paroxysmal atrial flutter (CMS/HCC) (HCC),Benign hypertensive heart disease without heart failure Take 1 capsule by mouth once daily 90 capsule 2 10/27/19 23 Active rosuvastatin (CRESTOR) 10 mg tabletIndications: Mixed hyperlipidemia,Cor onary artery disease involving tatitlek coronary artery of tatitlek heart without angina pectoris Take 1 tablet by mouth once daily 90 tablet 3 09/03/19 24 Active Xarelto 20 mg tabletIndications: Paroxysmal atrial flutter (CMS/HCC) (HCC),Chronic anticoagulation TAKE 1 TABLET BY MOUTH ONCE DAILY WITH SUPPER 90 tablet 2 10/18/19 24 Active pioglitazone (ACTOS) 15 mg tablet Take 1 tablet (15 mg total) by mouth daily 11/05/19 24 Active Restasis 0.05 % ophthalmic emulsion 1 drop 2 (two) times a day 11/18/19 24 Active potassium chloride ER 10 mEq CR tablet Take 1 tablet by mouth once daily 90 tablet 2 03/07/19 25 Active Additional Information Patient not taking.Reported on 03/27/2024 ipratropium (ATROVENT) 42 mcg (0.06 %) nasal spray 1 spray every 6 hours Active aspirin 81 mg chewable tablet daily Acti ve atorvastatin (LIPITOR) 40 mg tablet daily Active azelastine (ASTELIN) 137 mcg (0.1 %) nasal spray 2 spray(s) intranasally BID, PRN for 30 day(s) Active Ca carb-D3-mag fz-gkt-xtek-Zn (Caltrate-D3 Plus Minerals) 600 mg-20 mcg- 50 mg-1 mg tablet every 12 hours Activ e cholecalciferol (VITAMIN D-3) 2000 unit tablet daily Active doxycycline monohydrate (MONODOX) 100 mg capsule every 12 hours Activ e fluticasone-umecli din-vilanter (Trelegy Ellipta) 200-62.5-25 mcg inhaler daily Active insulin lispro (HumaLOG) 200 unit/mL (3 mL) pen for injection for 28 Active leflunomide (ARAVA) 20 mg tablet Take 1 tablet (20 mg total) by mouth daily 02/25/20 24 Active lifitegrast (Xiidra) 5 % dropperette INSTILL 1 DROP INTO EACH EYE TWICE DAILY for 30 Active linaGLIPtin (Tradjenta) 5 mg tablet daily Active loratadine (Claritin) 10 mg tablet daily Active multivitamin (One Daily Essential) tablet daily Active nebivoloL (Bystolic) 10 mg tablet daily Active nystatin 100,000 unit/mL suspension every 6 hours Active omalizumab (Xolair) 150 mg injection for 28 Active omeprazole (PriLOSEC) 40 mg capsule Take 1 capsule (40 mg total) by mouth daily 01/19/20 24 Active ondansetron ODT (ZOFRAN-ODT) 4 mg disintegrating tablet DISSOLVE 1 TABLET IN MOUTH EVERY 8 HOURS NEEDED FOR NAUSEA AND VOMITING 12/10/19 24 Active valACYclovir (Valtrex) 1 gram tablet every [address] (CYMBALTA) 30 mg capsule Take 1 capsule (30 mg total) by mouth daily Active traMADoL (ULTRAM) 50 mg tablet Take 1 tablet (50 mg total) by mouth every 6 (six) hours as needed for pain 20 tablet 04/07/19 25 Active traMADoL (ULTRAM) 50 mg tablet Take by mouth every 6 (six) hours as needed 07/09/19 22 025 Discontin ued(Stop Taking at Discharge ) Active Problems Problem Noted Date Diagnosed Date Malignant neoplasm of upper- outer quadrant of right breast in female, estrogen receptor positive 03/11/2024 Cancer Staging:Clinical stage from 03/11/2024:Stage IA(cT1c, cN0, cM0, G1, ER+, ND+, HER2: Equivocal) - Signed by David Fried MD on 03/11/2024 Class 2 obesity 02/04/2022 Morbid (severe) obesity due to excess calories 0 08/19/2021 Paroxysmal atrial flutter (CMS/HCC) 01/21/2021 Chronic anticoagulation 01/21/2021 Intermittent asthma without complication 021 Chronic fatigue 01/21/2021 Hypokalemia 01/21/2021 Thyroid disease 01/21/2021 Diaphoresis 01/21/2021 Essential hypertension 01/09/2020 H/O intrinsic asthma 01/01/2019 Statin intolerance 12/27/2018 Iron deficiency anemia 01/27/2018 Assessment & Plan (01/27/2018 2:58 PM MIXING MACHINE TENDER CORK ROD): Reviewed chart and discussed blood work with patient. She denies any GI sx and says EGD 2 yrs ago and [id number] this year. Discussed posssibility of gi blood loss and offered EGD/Colonoscopy. At this time she declines and promises to follow blood counts with PMD promising to call if changes her mind Coronary artery disease invo lving tatitlek coronary artery of tatitlek heart without angina pectoris 01/26/2018 Mixed hyperlipidemia 01/26/2018 Diastolic dysfunction 01/26/2018 MATTHEWS (dyspnea on exertion) 06/30/2017 Uncomplicated asthma 06/30/2017 Mixed diabetic hyperlipidemi a associated with type 2 diabetes mellitus (CMS/HCC) 06/30/2017 Lumbago 08/31/2016 Degeneration of intervertebral disc of lumbar re gion 08/31/2016 Resolved Problems Problem Noted Date Diagnosed Date Resolved Date Benign hypertensive heart di sease without heart failure 01/21/2021 02/04/2022 Excessive daytime sleepiness 01/21/2021 08/19/2021 Benign essential HTN 06/30/2017 021 Chest pain 01/10/2014 01/26/2018 Overview (06/05/2016): Chest pain Social History Tobacco Use Types Packs/Day Years Used Date Smoking Tobacco: Former Smokeless Tobacco: Never Tobacco Cessation:Counseling Given: Not Answered Comments:Quit 1996 Alcohol Use Standard Drinks/Week Comments No 0 (1 standard drink = 0.6 oz pur e alcohol) AUDIT-C Answer Date Recorded Q1: How often do you have a drink containing alcohol? Never 04/01/2024 Q2: How many drinks containi ng alcohol do you have on a typical day when you are drinking? Patient does not drink Q3: How often do you have si x or more drinks on one occasion? Never 04/01/2024 Personal Safety Answer Date Recorded Have you ever been in or are you currently in a harmful physical or emotional relationship or is someone making you feel afraid or unsafe? 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 Not on file Not on file Last Filed Vital Signs Vital Sign Reading Time Taken Comments Blood Pressure 138/74 04/07/2024 4:28 PM MIXING MACHINE T[employer]ER [employer] Pulse 83 04/07/2024 4:28 PM MIXING MACHINE [employer] Temperature 36.3 C (97.4 F) 04/07/2024 3:43 PM MIXING MACHINE [employer]ER [employer] Respiratory Rate 18 04/07/2024 4:28 PM MIXING MACHINE TENDER [employer] Oxygen Saturation 95% 04/07/2024 4:28 PM MIXING MACHINE T[employer]ER [employer] Inhaled Oxygen Concentration - - Weight 56.1 kg (123 lb 9.6 oz) 04/07/2024 9:50 A M MIXING MACHINE [employer]ER [employer] Height 154.9 cm (5' 1 ) 04/07/2024 9:50 AM MIXING MACHINE TENDER [employer] Body Mass Index 23.35 04/07/2024 9:50 AM MIXING MACHINE TENDER [employer] R[employer] Plan of Treatment Not on file Medical Devices Implanted Type Area Data Entry Operator Device Identifier Shelf Expiration Date Model / Serial / Lot Tank Terminal [employer] Niwot 20ga 5cm Reposition J Curve Wire Centimeter Andrew Stabilizer [id number] - [id number] Implanted:Qty: 1 on 04/07/2024 by Eleazar Gavin MD at [facility] Right: Breast [employer] [id number] 01/12/2029 [id number] / / [id number] Procedures Procedure Name Priority Date/Time Associated Diagnosis Comments POCT GLUCOSE DEVICE Routine 04/07/2024 3 :39 PM MIXING MACHINE TENDER [employer] POCT GLUCOSE DEVICE Routine 04/07/2024 3 :22 PM MIXING MACHINE T[employer]ER [employer] POCT GLUCOSE DEVICE Routine 04/07/2024 3 :01 PM MIXING MACHINE TENDER [employer] POCT GLUCOSE DEVICE Routine 04/07/2024 2 :42 PM MIXING MACHINE TENDER [employer] ROD RADIOLOGIC EXAMINATION OF SURGICAL SPECIMEN Schedule Routine, Read Routine (OP Routine) 04/07/2024 2:37 PM MIXING MACHINE TENDER [employer] ROD Invasive ductal carcinoma of breast, female, right (HCC) SURGICAL PATHOLOGY Routine 04/07/2024 1: 54 PM MIXING MACHINE TENDER [employer] Invasive ductal carcinoma of breast, female, right (HCC) ND AN PROCEDURE PLACEHOLDER Routine 04/07/2024 1:17 PM MIXING MACHINE TENDER [employer]ORK ROD ND AN ELECTIVE SUPRAGLOTTIC AIRWAY Routine 04/07/2024 1:17 PM MIXING MACHINE TENDER [employer] ROD LUMPECTOMY 04/07/2024 1:05 PM MIXING MACHINE TENDER [employer] ROD RIGHT BREAST CANCER MAMMO GUIDED LOCALIZATION BREAST RIGHT Schedule Routine, Read Routine (OP Routine) 04/07/2024 12:30 PM MIXING MACHINE TENDER [employer] ROD Invasive ductal carcinoma of breast, female, right (HCC) POCT GLUCOSE DEVICE Routine 04/07/2024 10:24 AM MIXING MACHINE TENDER [employer]OD EGFR Routine 03/31/2024 3:12 PM MIXING MACHINE TENDER [employer] Pre-op testing HEMOGLOBIN A1C Routine 03/31/2024 3:12 PM MIXING MACHINE TENDER [employer] Pre-op testing Diabetes mellitus due to underlying condition with complication (CMS/HCC) (HCC) CBC WITHOUT DIFFERENTIAL Routine 03/31/2024 3:12 PM MIXING MACHINE TENDER [employer] Pre-op testing BASIC METABOLIC PANEL Routine 03/31/2024 3:12 PM MIXING MACHINE TENDER [employer] ROD Pre-op testing ECG 12-LEAD Routine 03/31/2024 3:03 PM MIXING MACHINE TENDER [employer] ROD Pre-op testing SURGICAL PATHOLOGY Routine 03/27/2024 8: 46 AM MIXING MACHINE TENDER [employer]OD Malignant neoplasm of upper-outer quadrant of right breast in female, estrogen receptor negative (HCC) BREAST IMAGING US OUTSIDE REFERENCE Routine 01/20/2024 12:05 AM MIXING MACHINE TENDER [employer] ROD BREAST IMAGING MG DIAGNOSTIC OUTSIDE REFERENCE Routine 01/20/2024 12:00 AM MIXING MACHINE TENDER [employer] ROD POCT LIPID PANEL Routine 08/19/2021 5:01 PM CDT Mixed diabetic hyperlipidemia associated with type 2 diabetes mellitus (CMS/HCC) (HCC) from Last 3 Months or Most Recently Relevant to Health Maintenance Results * POCT glucose (04/07/2024 3:39 PM MIXING MACHINE TENDER CORK ROD) Glucose, POC 150 70 - 199 mg/dL Comment:Testing performed by : [address] [id number] Glucose comment 1 Use This Result KISHA TOWNSEND Comment:Testing performed by : [address] [id number] Blood 04/07/2024 3:39 PM MIXING MACHINE TENDER [employer] ROD 04/07/2024 3:39 PM MIXING MACHINE TENDER [employer] R[employer] us Aram Oro MD LAB POCT ORDERABLES - DEVIC E Final Result KISHA [address] [facility] Department [place] [address] * POCT glucose (04/07/2024 3:22 PM MIXING MACHINE TENDER CORK ROD) Glucose, POC 81 70 - 199 mg/dL Comment:Testing performed by : [address] [address] Blood 04/07/2024 3:22 PM MIXING MACHINE TENDER CORK ROD 04/07/2024 3:22 PM MIXING MACHINE TENDER C[employer] ROD Aram Oro MD LAB POCT ORDERABLES - DEVIC E Final Result Performing Organization Address [facility] Co de Phone Number KISHA [address] [place] [address] * (ABNORMAL) POCT glucose (04/07/2024 3:01 PM MIXING MACHINE TENDER CORK ROD) Glucose, POC 59(L) 70 - 199 mg/dL Comment:Testing performed by : [address] [address] Glucose comment 1 Use This Result KISHA Comment:Testing performed by : [address] [address] Glucose comment 2 RN/MD Notified KISHA Comment:Testing performed by : [address] [address] Blood 04/07/2024 3:01 PM MIXING MACHINE TENDER [employer] ROD 04/07/2024 3:01 PM MIXING MACHINE TENDER [employer]OD Aram Oro MD LAB POCT ORDERABLES - DEVIC E Final Result Performing Organization Address [facility] Co de Phone Number KISHA [address] [place] [address] * (ABNORMAL) POCT glucose (04/07/2024 2:42 PM MIXING MACHINE TENDER CORK ROD) Glucose, POC 62(L) 70 - 199 mg/dL Comment:Testing performed by : [address] [address] Glucose comment 1 Use This Result KISHA Comment:Testing performed by : [address] [address] Glucose comment 2 RN/MD Notified KISHA Comment:Testing performed by : [address] [id number] Blood 04/07/2024 2:42 PM MIXING MACHINE TENDER [employer] ROD 04/07/2024 2:42 PM MIXING MACHINE TENDER [employer] ROD us Aram Oro MD LAB POCT ORDERABLES - DEVIC E Final Result KISHA [address] [facility] Department [place] [address] * Radiologic Examination of Surgical Specimen (04/07/2024 2:37 PM MIXING MACHINE TENDER CORK ROD) Anatomical Region Laterality Modality Breast N/A Mammography 04/07/2024 2:07 PM MIXING MACHINE TENDER C[employer] ROD Narrative 04/07/2024 2:12 PM MIXING MACHINE TENDER C[employer] ROD EXAM DESCRIPTION: MAMMO GUIDED LOCALIZATION BREAST RIGHT; RADIOLOGIC EXAMINATION OF SURGICAL SPECIMEN REASON FOR STUDY: Right breast invasive ductal carcinoma COMPARISON: Outside breast imaging dated 01/20/2024, 12/21/2023, and 11/24/2023 FINDINGS: Prior to the procedure, the risks, benefits, and alternatives to the procedure were explained to the patient, and the patient gave informed written consent for the procedure. A time out procedure was performed, at which time the patient identity, procedure, and site of procedure were confirmed. A mammographic needle localization of the biopsy marking clip (site of biopsy-proven invasive ductal carcinoma) in the right breast at the 10 o'clock position, posterior depth, was performed. The right breast was sterilized using standard aseptic technique. Local anesthesia was obtained with injection of 1% lidocaine in the right breast skin and subcutaneous tissues. The right breast biopsy marking clip at the 10 o'clock position was targeted from a lateral approach using a 5 cm Niwot needle. Appropriate positioning of the needle and wire was confirmed with mammography in orthogonal projections. The patient tolerated the procedure well. There were no immediate post-procedure complications. Subsequent right breast specimen radiograph demonstrates the targeted biopsy marking clip and localization wire within the surgical specimen. IMPRESSION: 1. Successful right breast breast wire localization with mammographic guidance. No periprocedural complication. 2. Subsequent surgical specimen radiograph demonstrates the targeted biopsy marker within the specimen. THIS IS AN ELECTRONICALLY VERIFIED FINAL REPORT 04/07/2024 2:12 PM - Electronically signed by Eleazar Gavin M.D., MD: Report ID: [id number] Reading Location: [facility] us Aram Oro MD IMG MAMMO PROCEDURES Final Result * Surgical pathology (04/07/2024 1:54 PM MIXING MACHINE TENDER CORK ROD) Tissue (Breast, lumpectomy) 04/07/2024 1:54 PM MIXING MACHINE TENDER CORK ROD Narrative PATHOLOGY [facility] - 04/14/2024 6:26 PM MIXING MACHINE TENDER CORK ROD [facility] Department of Pathology [address] [place] [address] Note to Patients: This report may contain a detailed description of human tissue sent by a health care provider to the laboratory for pathologic evaluation. The content of this report is essential for diagnosis and may provide important critical findings. This information may be unfamiliar to patients to review without a medical professional present. It is advised that the patient review this report in the presence of a health care provider who can answer questions and explain the details. Final Report Patient Name: RULA GOLDSTEIN : 1945 (Age: 78) Gender: F Address: [address] [place] [id number] Hospital #: [id number] Service: Surgery Location: Patient Type: [facility] OUTPATIENT Taken: 04/07/2024 Received: 04/07/2024 Accessioned: 04/07/2024 Reported: 04/14/2024 Physician(s): Shaquille Steele M.D. Diagnosis: A. 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 of tissue, present in association with invasive carcinoma - Nuclear grade = 2/3 by SBR criteria - Solid pattern with comedonecrosis - Surgical margins negative for DCIS: nearest = 9 mm, anterior - Biopsy site changes - Marked severe calcific arteriosclerosis - Microcalcifications, calcium phosphate type, identified in association with invasive carcinoma, sclerosing adenosis, vessel barajas Synoptic Diagnosis: CANCER CASE SUMMARY FOR INVASIVE CARCINOMA OF THE BREAST Procedure: Excision (less than total mastectomy) Specimen laterality: Right Tumor site invasive carcinoma: 10 o c lock Histologic type of invasive carcinoma: Invasive ductal carcinoma (no special type or not otherwise specified) Tumor size: Greatest dimension: 11mm Histologic grade (Rosemary Histologic Score): Tubular differentiation: Score 3 Nuclear pleomorphism: Score 3 Mitotic rate: Score 1 Overall grade: Grade 2: scores of 6 or 7 Tumor focality: Single focus of invasive carcinoma Ductal carcinoma in situ (DCIS): DCIS is present Blocks with DCIS: 3 Blocks examined: 18 Architectural patterns: Solid Nuclear grade: Grade 2 (intermediate) Necrosis: Present, central (expansive c omedo necrosis) Extent of tumor: Not applicable (skin, nipple, and skeletal muscle are absent or are uninvolved) Margins for invasive carcinoma: Margins negative for invasive carcinoma Distance from closest margin: 10 mm Margin: Posterior Margins for DCIS: Margins uninvolved by DCIS Distance from closest margin: 9 mm Margin: anterior Lymph nodes: Total number of lymph nodes examined (sentinel and nonsentinel): 0 Lymph node involvement: Not Applicable (no regional lymph nodes submitted or found) Response to presurgical therapy: No known presurgical therapy Lymphovascular Invasion: Not identified Distant Site(s) Involved, if applicable (select all that apply): Not applicable Pathologic Stage Classification (pTNM, AJCC 8th Edition): Primary tumor (invasive carcinoma) (pT): pT1c: Tumor >10 mm but <=20 mm in greatest dimension Lymph nodes (pN): pN not assigned (no nodes submitted or found) Distant metastasis (pM): Not applicable Breast Biomarker Testing performed on Previous Case: (OSC: [id number], 01/20/24) Estrogen Receptor (ER): Positive Rambo score 8/8 Progesterone Receptor (PgR): Positive Rambo score 7/8 HER2 (by immunohistochemistry): Equivocal (Score 2+) HER2 (by in situ hybridization): Negative (not amplified) The pathologic stage assigned here should be regarded as provisional, and may change after integration of clinical data not provided with this report. CAP VERSION: InvasiveBreast 4.10 Vanda Rasmussen M.D. Report Electronically Reviewed and Signed Out By Vanda Rasmussen M.D. 04/14/2024 18:26:28 Specimen(s) Received: A: Right breast lesion: short=superior,: medium= medial: long= lateral Intraoperative Diagnosis: Gross Consultation A: Right breast lesion: short=superior,: medium= medial: long= lateral Round mass coming to within approximately 1.0 cm of the posterior margin (closest margin). By Twila Bazzi MS, ([facility])CM Microscopic Description: The invasive carcinoma correlates with the grossly identified mass. Focal associated DCIS is also present. The invasive carcinoma correlates with the grossly identified mass. Focal associated DCIS is also present. Clinical History: The patient is an 78-year-old woman with invasive ductal carcinoma of the right breast. Operative procedure: right breast needle localization lumpectomy. Gross Description Received in fresh, labeled with the patient s identifiers and right breast lesion short superior, medium medial, long lateral -Collected: 1:54 PM on 04/07/2024 -Received: 2:01 PM on 04/07/2024 -Placed in formalin: 2:30 PM on 04/07/2024 -Cold ischemic time: 36 minutes -Formalin Fixation time: 52 hours -Specimen dimensions: Medial to Lateral: 11.9 cm Superior to Inferior: 5.4 cm Anterior to Posterior: 2.6 cm -Skin dimensions: No skin -Weight: 46 g -Orientation: Long lateral, medium medial, short superior. A wire extends from lateral. - Margins inked: Superior: Blue Inferior: Green Anterior: Yellow Posterior: Black -Sectioned: Medial to lateral -Number of slices: 15 slices with the medial margin designated as slice 1 -Gross findings: A round, firm, well-defined, gritty, pink-guerrero mass in slices 10 And 11, measuring 1.1 x 0.9 x 0.8 cm -Distance from surgical margin: Mass Superior: 2.1 cm Inferior: 1.3 cm Anterior: 1.1 cm Posterior: 1.0 cm Medial: Greater than 2 cm Lateral: Greater than 2 cm -Specimen radiographed: No -Diagram: No Summary of sections: A1 Medial margin/slice 1, perpendicularly sectioned A2-A5 Slice 9, quadrisected and submitted from superoposterior, superoanterior, inferoposterior, to inferoanterior, respectively A6-A9 Slice 10, quadrisected and submitted in the same manner, including mass A10-A13 Slice 11, quadrisected and submitted in the same manner, including remainder of mass A14-A17 Slice 12, quadrisected and submitted in the same manner A18 Lateral margin/slice 15, perpendicularly sectioned Jar: 1 [facility]2/04/07/2024 14:25 Twila Bazzi MS, PA (ASC Microscopic slide review and interpretation for this case was performed at [facility], Department of Surgical Pathology, [address] [facility] [place], [place] [id number], [place] [address] CLIA # [id number] us Aram Oro MD LAB PATHOLOGY ORDERABLES Fi nal Result PATHOLOGY MB * ND AN ELECTIVE SUPRAGLOTTIC AIRWAY, ND AN PROCEDURE PLACEHOLDER (04/07/2024 1:17 PM MIXING MACHINE TENDER CORK ROD) Narrative Kin Lynch CRNA - 04/07/2024 1:17 PM MIXING MACHINE TENDER CORK ROD Kin Lynch CRNA 04/07/2024 1:18 PM Airway Patient location: OR Urgency: elective Indications for airway management: anesthesia Difficult airway: no Staff: Placed by: MOTOR TEACHER: Kin Lynch CRNA Emergent airway documentation: Risks and benefits discussed: yes Consent obtained: yes Consent given by: patient Airway prep: Preoxygenated: yes Patient position: sniffing Mask difficulty assessment: 0 - not attempted Spontaneous ventilation during airway: absent Sedation level during airway: deep Final airway details: Final airway type: supraglottic airway Final supraglottic airway: classic SGA size: 4 Number of attempts: 1 us Andrew Rubalcava MD ANESTHESIA ORDERABLES Final Re sult * Mammo Guided Localization Breast Right (04/07/2024 12:30 PM MIXING MACHINE TENDER CORK ROD) Anatomical Region Laterality Modality Breast Right Mammography, Com puted Radiography 04/07/2024 2:07 PM MIXING MACHINE TENDER CORK ROD Narrative 04/07/2024 2:12 PM MIXING MACHINE TENDER CORK ROD EXAM DESCRIPTION: MAMMO GUIDED LOCALIZATION BREAST RIGHT; RADIOLOGIC EXAMINATION OF SURGICAL SPECIMEN REASON FOR STUDY: Right breast invasive ductal carcinoma COMPARISON: Outside breast imaging dated 01/20/2024, 12/21/2023, and 11/24/2023 FINDINGS: Prior to the procedure, the risks, benefits, and alternatives to the procedure were explained to the patient, and the patient gave informed written consent for the procedure. A time out procedure was performed, at which time the patient identity, procedure, and site of procedure were confirmed. A mammographic needle localization of the biopsy marking clip (site of biopsy-proven invasive ductal carcinoma) in the right breast at the 10 o'clock position, posterior depth, was performed. The right breast was sterilized using standard aseptic technique. Local anesthesia was obtained with injection of 1% lidocaine in the right breast skin and subcutaneous tissues. The right breast biopsy marking clip at the 10 o'clock position was targeted from a lateral approach using a 5 cm Niwot needle. Appropriate positioning of the needle and wire was confirmed with mammography in orthogonal projections. The patient tolerated the procedure well. There were no immediate post-procedure complications. Subsequent right breast specimen radiograph demonstrates the targeted biopsy marking clip and localization wire within the surgical specimen. IMPRESSION: 1. Successful right breast breast wire localization with mammographic guidance. No periprocedural complication. 2. Subsequent surgical specimen radiograph demonstrates the targeted biopsy marker within the specimen. THIS IS AN ELECTRONICALLY VERIFIED FINAL REPORT 04/07/2024 2:12 PM - Electronically signed by Eleazar Gavin M.D., MD: Report ID: [id number] Reading Location: [facility] Aram Oro MD [facility] MAMMO PROCEDURES Final Result * POCT glucose (04/07/2024 10:24 AM MIXING MACHINE TENDER CORK ROD) Glucose, POC 85 70 - 199 mg/dL Comment:Testing performed by : [address] [address] Glucose comment 1 Use This Result KISHA Comment:Testing performed by : [address] [address] Blood 04/07/2024 10:2 4 AM MIXING MACHINE TENDER CORK ROD 04/07/2024 10:24 AM MIXING MACHINE TENDER CORK ROD us Aram Oro MD LAB POCT ORDERABLES - DEVIC E Final Result Performing Organization Address [facility] Co de Phone Number KISHA [address] [place] [address] * eGFR (03/31/2024 3:12 PM MIXING MACHINE TENDER CORK ROD) eGFR >90 >=60 mL/min/1. 73 m2 Comment: Interpretive Data Reference Interval Normal >/= 90 mL/min/1.73m2 Mildly decreased* 60 - 89 mL/min/1.73m2 Mildly to moderately decreased 45 - 59 mL/min/1.73m2 Moderately to severely decreased 30 - 44 mL/min/1.73m2 Severely decreased 15 - 29 mL/min/1.73m2 Kidney Failure < 15 mL/min/1.73m2 *Relative to young adult level Estimated glomerular filtration rate is determined by the 2020 CKD-EPI equation recommended by the National Kidney Foundation (A Unifying Approach to GFR Estimation: Recommendations of the NKF-ASK Task Force on Reassessing the Inclusion of Race in Diagnosing Kidney Disease, JASN 2020). The CKD-EPI equation should not be used for patients with unstable renal function and has not been validated in children and those over 70. Current interpretive data was last reviewed 2020. Testing performed by: [address] [address] Blood 03/31/2024 3:12 PM MIXING MACHINE TENDER CORK ROD 03/31/2024 3:23 PM MIXING MACHINE TENDER CORK ROD us Eleazar Ibrahim MD LAB BLOOD ORDERABL ES Final Result Performing Organization Address [facility] Co de Phone Number KISHA [facility] [place] [address] * (ABNORMAL) CBC without differential (03/31/2024 3:12 PM MIXING MACHINE TENDER CORK ROD) WBC 6.6 3.8 - 9.9 K/cumm Comment:Testing performed by : [address] [address] Hgb 11.0(L) 11.9 - 15.5 g/dL KISHA Comment:Testing performed by : [address] [address] Hct 33.8(L) 35.6 - 45.5 % KISHA Comment:Testing performed by : [address] [address] Plt 300 150 - 400 K/cumm KISHA Comment:Testing performed by : [address] [address] MPV 9.9 9.1 - 12.3 fL KISHA Comment:Testing performed by : [address], [address] RBC 3.83(L) 3.90 - 5.20 M/cumm KISHA Comment:Testing performed by : [address], [address] MCV 88.3 81.3 - 96.4 fL KISHA Comment:Testing performed by : [address] [address] MCH 28.7 27.1 - 33.3 pg KISHA Comment:Testing performed by : [address], [address] MCHC 32.5 32.3 - 35.7 g/dL KISHA Comment:Testing performed by : [address], [address] RDW CV 14.9 11.1 - 14.9 % KISHA Comment:Testing performed by : [address] [address] RDW SD 48.0 35.7 - 48.1 fL KISHA Comment:Testing performed by : [address], [address] NRBC abs 0.00 0.00 - 0.01 K/cumm KISHA Comment:Testing performed by : [address], [address] Blood 03/31/2024 3:12 PM MIXING MACHINE TENDER CORK ROD 03/31/2024 3:22 PM MIXING MACHINE TENDER CORK ROD Narrative KISHA - 03/31/2024 3:28 PM MIXING MACHINE TENDER CORK ROD PRE SURGICAL TESTING ONLY--04/07/2024-RIGHT BREAST NEEDLE LOCALIZATION LUMPECTOMY: -Surgeons and Role: * Aram Oro MD - Primary-@ANPROCEDURE@ Eleazar Ibrahim MD LAB BLOOD ORDERABL ES Final Result Performing Organization Address [facility] Co de Phone Number KISHA [address] [place] [address] * (ABNORMAL) Hemoglobin A1c (03/31/2024 3:12 PM MIXING MACHINE TENDER CORK ROD) Hgb A1C 5.9(H) 4.0 - 5.6 % Comment:Testing performed by : [address] [address] Estimated Average Glucose 123 mg/dL DANNYELVIN Comment: The ADA recommends reporting an estimated Average Glucose (eAG) with all Hemoglobin A1c results using the equation derived from a study of 507 normal and diabetic adults. Minority populations were underrepresented and children were not included. (Diabetes Care 31:3581-2961, 2008). The eAG is not equivalent to a fasting glucose. Testing performed by: [address] [address] Blood 03/31/2024 3:12 PM MIXING MACHINE TENDER CORK ROD 03/31/2024 3:22 PM MIXING MACHINE TENDER CORK ROD Narrative [facility] - 03/31/2024 5:28 PM MIXING MACHINE TENDER CORK ROD PRE SURGICAL TESTING ONLY--04/07/2024--Surgeons and Role: * Aram Oro MD - Primary-@ANPROCEDURE@ Eleazar Ibrahim MD LAB BLOOD ORDERABL ES Final Result Performing Organization Address [facility] Co de Phone Number KISHA [address] [facility] [place] [address] * (ABNORMAL) Basic metabolic panel (03/31/2024 3:12 PM MIXING MACHINE TENDER CORK ROD) Sodium 142 135 - 145 mmol/L Comment:Testing performed by : [address] [address] Potassium, pl 3.3 3.3 - 4.9 mmol/L KISHA Comment:Testing performed by : [address] [address] Chloride 104 97 - 110 mmol/L KISHA Comment:Testing performed by : [address], [place]., [address] CO2 28 22 - 32 mmol/L KISHA Comment:Testing performed by : [address] [address] Anion gap 10 2 - 15 mmol/L KISHA Comment:Testing performed by : [address] [address] BUN 9 6 - 25 mg/dL KISHA Comment:Testing performed by : [address] [address] Creatinine 0.48(L) 0.60 - 1.10 mg/dL KISHA Comment:Testing performed by : [address] [address] Glucose 81 70 - 199 mg/dL KISHA Comment: Interpretive Data Fasting glucose >/= 126 mg/dl is diagnostic for diabetes. Fasting is defined as no caloric intake for at least 8 hours. Fasting glucose between 100 mg/dl to 125 mg/dl is diagnostic of prediabetes. In a patient with classic symptoms of hyperglycemia or hyperglycemic crisis, a random glucose >/= 200 mg/dl is diagnostic for diabetes. In the absence of unequivocal hyperglycemia, results should be confirmed by repeat testing. The classification and Diagnosis of Diabetes Diabetes Care 2021; 46: S19-S40. Current interpretive data was last revised 2022. Testing performed by: [address] [address] Calcium 9.3 8.5 - 10.3 mg/dL KISHA Comment:Testing performed by : [address] [address] Blood 03/31/2024 3:12 PM MIXING MACHINE TENDER CORK ROD 03/31/2024 3:23 PM MIXING MACHINE TENDER CORK ROD Narrative KISHA - 03/31/2024 3:53 PM MIXING MACHINE TENDER CORK ROD PRE SURGICAL TESTING ONLY--04/07/2024-RIGHT BREAST NEEDLE LOCALIZATION LUMPECTOMY: -Surgeons and Role: * Aram Oro MD - Primary- Eleazar Ibrahim MD LAB BLOOD ORDERABL ES Final Result Performing Organization Address [facility] Co de Phone Number KISHA [address] [facility] Department [place] [address] * ECG 12 lead (03/31/2024 3:03 PM MIXING MACHINE TENDER CORK ROD) Pathologist [facility] Ventricular Rate EKG/Min 71 BPM [facility] Atrial Rate 71 BPM [facility] ND-Interval (MSEC) 262 ms [facility] QRS-Interval (MSEC) 78 ms [facility] QT-Interval (MSEC) 428 ms [facility] QTc 465 ms [facility] P Monarch 56 degrees [facility] R Monarch 4 degrees [facility] T Monarch 67 degrees [facility] Diagnosis Sinus rhythm with 1st degree A-V block Septal infarct , age undetermined Abnormal ECG When compared with ECG of 19-OCT-1992 11:15, ND interval has increased Septal infarct is now Present Confirmed by REY YOUNG M.D. ([id number]) on 04/03/2024 8:59:18 PM [facility] 03/31/2024 3:03 PM MIXING MACHINE TENDER CORK ROD 04/03/2024 8:59 PM MIXING MACHINE TENDER CORK ROD Eleazar Ibrahim MD ECG ORDERABLES Fi nal Result Performing Organization Address City/[facility]/ZIP Co de Phone Number [facility] * Surgical pathology (03/27/2024 8:46 AM MIXING MACHINE TENDER CORK ROD) Tissue (Miscellaneous) 03/27/2024 8:46 AM MIXING MACHINE TENDER CORK ROD 03/27/2024 8:46 AM MIXING MACHINE TENDER CORK ROD Narrative [facility] PATHOLOGY LAB - 03/30/2024 6:05 PM MIXING MACHINE TENDER CORK ROD EPIC results best viewed via link to PDF [facility] Pathology Consult Service [address], [place] [address] Note to Patients: This report may contain a detailed description of human tissue sent by a health care provider to the laboratory for pathologic evaluation. The content of this report is essential for diagnosis and may provide important critical findings. This information may be unfamiliar to patients to review without a medical professional present. It is advised that the patient review this report in the presence of a health care provider who can answer questions and explain the details. SURGICAL PATHOLOGY REPORT * Consult Report * [facility] is providing an additional review of previously collected tissue. FINAL Patient Name: RULA GOLDSTEIN Address: [address] [place] [id number] Gender: F : 1945 (Age: 78) Hospital #: [id number] Patient Type: SUBHASH Location: UNKNOWN Taken: 03/27/2024 Received: 03/27/2024 Accessioned: 03/27/2024 Reported: 03/30/2024 Physician(s): Dr. Lobo Driscoll D.O. [facility] Department of Pathology [address] [place] [address] P: [phone] F: [phone] Diagnosis: Consult material received from [place], [place] (OSC: [id number]; 01/20/2024) Breast, right, 10:00, 4.5 cm from nipple, core biopsy - Invasive ductal carcinoma - Greatest microscopic dimension = 5 mm - Histologic grade = 2/3 (tubules 3 + nuclei 2 + mitoses 1 = 6/9) by ESBR criteria - Biomarkers (slides are provided for review) - ER by IHC: positive, Rambo score 8/8 - ND by IHC: positive, Rambo score 7/8 - Her-2 by IHC: Equivocal (score 2+); FISH negative, per report - Ki-67 Index: 5-10% - 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 Rosa Roman M.D. Report Electronically Reviewed and Signed Out By Rosa Roman M.D. 03/30/2024 18:05:24 Microscopic Description and Comment: Unless gross-only is specified, the final diagnosis for each specimen is based on a microscopic examination of each tissue sample. Chau Faith M.D. History: The patient is a 78-year-old woman with history of malignant neoplasm of upper- outer quadrant of right breast in female, estrogen receptor negative. Materials Received: Received for review are eight slides labeled [id number], accompanied by a corresponding pathology report. The material originates from [place], [place] . Selected slide(s) may be digitally scanned for our files, and all materials are returned to the referring institution, along with a copy of our final report. Any testing required for diagnostic purposes was performed in the Department of Pathology and Immunology at [facility], [address] [place] [address] CLIA # [id number] The performance characteristics of the testing cited in this report (if any) were determined by the [facility] Department of Pathology and Immunology [facility], as part of an ongoing quality assurance supervisor final program and in compliance with federally mandated regulations drawn from the Clinical Laboratory Improvement Act of 1988 (CLIA '88). Some of these tests rely on the use of analyte specific reagents (ASR) and are subject to specific labeling requirements by the US Food and Drug Administration. Such diagnostic tests may only be performed in a facility that is certified by the Department of Health and Human Services as a high complexity laboratory under CLIA '88. The FDA has determined that such clearance or approval is not necessary. ASRs should not be regarded as investigational or for research. ASRs were developed and the performance characteristics determined by the [facility], [facility] Department of Pathology and Immunology. It has not been cleared or approved by the U.S. Food and Drug Administration. Any test designated as LDT was developed and its performance characteristics determined by [facility]. It has not been cleared or approved by the FDA. This test is used for clinical purposes and should not be regarded as investigational or for research. Report images and/or scanned reports, if included, only viewable in PDF version of report. us Lobo Driscoll DO LAB PATHOLOGY ORDERABLES Fin al Result [facility] PATHOLOGY LAB [address] [address] * Breast Imaging US Outside Reference (01/20/2024 12:05 AM MIXING MACHINE TENDER CORK ROD) Narrative MYLES_KRISTIANE - 03/20/2024 1:35 PM MIXING MACHINE TENDER CORK ROD This order has been auto-finalized and does not contain a result. us Provider Transcribed Order IMG MAMMO PROCEDURES Final Result Performing Organization Address [facility] Co de Phone Number [email or web address] * Breast Imaging Diagnostic Outside Reference (01/20/2024 12:00 AM MIXING MACHINE TENDER CORK ROD) Narrative MYLES_KRISTIANE - 03/20/2024 1:35 PM MIXING MACHINE TENDER CORK ROD This order has been auto-finalized and does not contain a result. us Provider Transcribed Order IMG MAMMO PROCEDURES Final Result Performing Organization Address [facility] Co de Phone Number [email or web address] * POCT lipid panel (08/19/2021 5:01 PM CDT) Cholesterol, POC 99 mg/dL HDL, POC 24 mg/dL Triglycerides, POC 193 mg/dL LDL Cholesterol POC 49 mg/dL Chol/HDL Ratio, POC na Non-HDL Cholesterol, POC na mg/dL Cholesterol Total, POC 99 mg/dL Capillary blood 08/19/2021 5 :01 PM CDT us Hailey Del Toro MD POINT OF CARE TEST ORDERABL ES Final Result from Last 3 Months or Most Recently Relevant to Health [place] [address] MEDICARE [facility] [facility] MEDICARE RAILROAD [facility] MEDICARE RAILRO[employer] [facility] Care Teams Resident Services Supervisor Relationship Specialty Start Date End Date David Pruitt MD [address] [place] [address] PCP - General Family Medicine 06/30/17 Aram Oro MD [address] [place] [address] Consulting Physician Surgery 02/29/24 David Fried MD [address] [place] [address] [address] [place] [address] Radiation Oncologist Radiation Oncology 02/29/24 Chema Foreman MD [address] [place] [address] [place] [address] Consulting Physician Interventional Cardiology 03/17/24
--- OUTSIDE RECORDS SUMMARY | 2024-04-20 12:24 | XMS_ITS | Clinical Summary ---
Author Organization [facility] Address [address] [place] [address] Care Team Providers Care Director Global Strategic Publisher Sales Name Role Phone David Pruitt MD Primary Care Provider Aram Oro MD Unavailable [phone] David Fried MD Unavailable [phone] Chema Foreman MD Unavailable [phone] Allergies Active Allergy Reactions Criticality Noted Date Comments Atorvastatin Muscle pain Medium 01/01/2019 Myalgias on atorvastatin 20 mg [place]-3 Fatty Acids Rash Medium 01/27/2018 Flecainide Other [...] (LEVOTHYROXINE ORAL) Take 100 mcg by mouth morning caregiver before breakfast 06/16/19 18 Active montelukast (SINGULAIR) [...] tabletIndications: Mixed hyperlipidemia,Cor onary artery disease involving [place] coronary artery of [place] heart without angina pectoris Take 1 tablet [...] PRN for 30 day(s) Active Ca carb-D3-mag [id number] (Caltrate-D3 Plus Minerals) 600 mg-20 mcg- 50 [...] from 03/11/2024:Stage IA(cT1c, cN0, cM0, G1, ER+, FL+, HER2: Equivocal) - Signed by David Fried [...] 01/27/2018 Assessment & Plan (01/27/2018 2:58 PM BREAKER TABLE WORKER): Reviewed chart and discussed blood work with patient. She denies any GI sx and says EGD 2 yrs ago and [id number] this year. Discussed posssibility of gi blood loss and offered EGD/Colonoscopy. At this time she declines and promises to follow blood counts with PMD promising to call if changes her mind Coronary artery disease invo lving [place] coronary artery of [place] heart without angina pectoris 01/26/2018 Mixed hyperlipidemia [...] pain 01/10/2014 01/26/2018 Overview (06/05/2016): Chest pain Encounters Date Type Department Care Team Description 04/07/2024 1:05 PM BREAKER TABLE WORKER Anesthesia Event [facility] OR [address] [place] [address] Andrew Rubalcava MD Boivin, James R., MD 04/07/2024 1:00 PM BREAKER TABLE WORKER - 04/07/2024 2:35 PM BREAKER TABLE WORKER Surgery [facility] OR [address] [place] [address] Aram Oro MD RIGHT BREAST NEEDLE LOCALIZATION LUMPECTOMY 04/07/2024 11:29 AM BREAKER TABLE WORKER - 04/07/2024 11:59 PM BREAKER TABLE WORKER Hospital Encounter [facility] Medical Office Bldg 1 [facility] [address] [facility] [address] [place] [address] Invasive ductal carcinoma of breast, female, right (HCC) Discharge Disposition: Discharge to home or self care 04/07/2024 10:28 AM BREAKER TABLE WORKER - 04/07/2024 11:59 PM BREAKER TABLE WORKER Hospital Encounter [facility] Breast Imaging [facility] [place] [phone] Invasive ductal carcinoma of breast, female, right (HCC) Discharge Disposition: Discharge to home or self care 04/07/2024 9:38 AM BREAKER TABLE WORKER - 04/07/2024 4:40 PM BREAKER TABLE WORKER Hospital Encounter [facility] OR [address] [place] [address] Aram Oro MD Invasive ductal carcinoma of breast, female, right (HCC) Discharge Disposition: Discharge to home or self care 04/04/[address] [facility] Cardiology [address] [place] [address] Chema Foreman MD cardiac clearance; Abnormal ECG 03/31/2024 3:00 PM BREAKER TABLE WORKER Pre-Admission Testing [facility] Pre Admit Testing [address] [place] [address] Pre-op testing (Primary Dx); Diabetes mellitus due to underlying condition with complication (CMS/HCC) (HCC) 03/27/2024 3:30 PM BREAKER TABLE WORKER Office Visit [facility] Oncology [facility] [facility] [address] [place] [phone] Lobo Driscoll, Malignant neoplasm of upper-outer quadrant of right breast in female, estrogen receptor positive (HCC) (Primary Dx) 03/27/2024 Orders Only JAROD [address] [address] Lobo Driscoll DO Malignant neoplasm of upper-outer quadrant of right breast in female, estrogen receptor negative (HCC) 03/22/2024 Orders Only [facility] Oncology [facility] [address] [place] [phone] Lobo Driscoll, Malignant neoplasm of upper-outer quadrant of right breast in female, estrogen receptor negative (HCC) (Primary Dx) 03/11/2024 10:00 AM BREAKER TABLE WORKER Consult [facility] Medical Office Building 2 Radiation Oncology [address] [place] [address] David Fried MD Class 2 obesity (Primary Dx); Malignant neoplasm of upper-outer quadrant of right breast in female, estrogen receptor positive (HCC) 02/11/2024 2:05 PM BREAKER TABLE WORKER Lab [facility] Medical Office Building [address] [place] [address] 01/20/2024 12:05 AM BREAKER TABLE WORKER - 01/20/2024 11:59 PM BREAKER TABLE WORKER Hospital Encounter [facility] Outside Images [address] [place] [address] Discharge Disposition: Discharge to home or self care 01/20/2024 - 01/20/2024 11:59 PM BREAKER TABLE WORKER Hospital Encounter [facility] Outside Images [address] [place] [address] Discharge Disposition: Discharge to home or self care from Last 3 Months Surgical History Surgery Date Site/Laterality Comments TONSILLECTOMY 1949 Tonsillectomy APPENDECTOMY 1950 Appendectomy CHOLECYSTECTOMY 1976 Cholecystectomy THYROIDECTOMY 1966 Thyroidectomy HYSTERECTOMY 1976 Hysterectomy MASTECTOMY 1992 Left Mastectomy CERVICAL DISCECTOMY 2005 Diskectomy, Cervical OTHER SURGICAL HISTORY Carpal tunnel surgery/2006 and 2007 BREAST BIOPSY 03/01/2023 - 02/29/2024 Right BREAST SURGERY removal of breast implant ULNAR TUNNEL RELEASE Bilateral CYST REMOVAL side of face Medical History Medical History Date Comments DM (diabetes mellitus) ([facility]) His tory of diabetes mellitus - (Added by TW Conv) Hypertension History of hyper tension - (Added by TW Conv) COPD (chronic obstructive pu lmonary disease) ([facility]) History of chronic obstructi ve lung disease - (Added by TW Conv) Asthma History of asthm a - (Added by TW Conv) Arthritis History of arthr itis - (Added by TW Conv) Thyroid disorder History of thyr oid disorder - (Added by TW Conv) Diverticulosis History of diver ticulosis - (Added by TW Conv) Shortness of breath SOB (shortne ss of breath) on exertion - (Added by TW Conv) Osteoarthritis Osteoarthritis - (Added by TW Conv) Depression History of depre ssion - (Added by TW Conv) Neoplasm of breast History of ma lignant neoplasm of breast - (Added by TW Conv) Rheumatoid arthritis ([facility]) 2020 S/P balloon dilatation of es ophageal stricture Mixed diabetic hyperlipidemi a associated with type 2 diabetes mellitus (CMS/HCC) ([facility]) 06/30/2017 Iron deficiency anemia 01/27/2018 Paroxysmal atrial flutter (C MS/HCC) ([facility]) 01/21/2021 Malignant neoplasm of upper- outer quadrant of right breast in female, estrogen receptor positive ([facility]) 03/11/2024 Vitiligo Lung disease Allergic rhinitis GERD (gastroesophageal reflu x disease) Hypothyroidism Family History Medical History Relation Name Comments Coronary artery disease Brother Diabetes Brother Heart disease Brother Family history of cardiac disorder - (Added by TW Conv) Melanoma Father Stroke Father No Known Problems Maternal Grandfather No Known Problems Maternal Grandmother Lung cancer Mother Heart attack Mother's Brother 2 Myocardia l Infarction; Cause of : Myocardial Infarction Diabetes Other 1 Family history of diabetes mellitus - (Added by TW Conv) Cancer Other 2 Family history of malignant neoplasm - (Added by TW Conv) No Known Problems Paternal Grandfather No Known Problems Paternal Grandmother Hypertension Sister 1 daren Family history of hypertension - (Added by TW Conv) Heart attack Sister 2 Bisi Heart disease Sister 2 Bisi Family history of cardiac disorder - (Added by TW Conv) Relation Name Status Comments Brother CABG in his 50' s Father (Age 80) of CV A, had melanoma and bone CA Maternal Grandfather Maternal Grandmother Mother Lung CA Mother's Brother 1 (Age 46) Mother's Brother 2 Other 1 Other 2 Paternal Grandfather Paternal Grandmother Sister 1 daren of cancer Sister 2 Bisi Alive Pacer, ICD, MIs Social History Tobacco Use Types Packs/Day Years [...] on file Legal Sex Female 12:20 AM BREAKER TABLE WORKER Gender Identity Female 12/31/2023 2:40 PM CDT Sexual Orientation Asexual 12/31/2023 2: 43 PM CDT 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 Not on file Not on file Obstetrics History Last Filed Vital Signs Vital Sign Reading Time Taken Comments Blood Pressure 138/74 04/07/2024 4:28 PM BREAKER TABLE WORKER Pulse 83 04/07/2024 4:28 PM BREAKER TABLE WORKER Temperature 36.3 C (97.4 F) 04/07/2024 3:43 PM BREAKER TABLE WORKER Respiratory Rate 18 04/07/2024 4:28 PM BREAKER TABLE WORKER Oxygen Saturation 95% 04/07/2024 4:28 PM BREAKER TABLE WORKER Inhaled Oxygen Concentration - - Weight 56.1 kg (123 lb 9.6 oz) 04/07/2024 9:50 A M BREAKER TABLE WORKER Height 154.9 cm (5' 1 ) 04/07/2024 9:50 AM BREAKER TABLE WORKER Body Mass Index 23.35 04/07/2024 9:50 AM BREAKER TABLE WORKER Plan of Treatment Health Maintenance Due Date Last Done Comments Albumin Creatinine Ratio, Urine 1945 Depression Screening 1945 Osteoporosis Screening-Bone Density Scan 1945 Dilated Eye Exam 1945 Foot Exam 1945 DTaP/Tdap/Td Vaccine (1 - Tdap) 09/30/1954 Hepatitis B Screening 09/30/1961 Pneumococcal vaccine 65+ (1 of 2 - PCV) 09/30/1962 Well Visit 65+ 09/30/2008 Zoster Vaccine (2 of 2) 02/07/2019 12/13/2018 Lipid Panel 08/19/2022 08/19/2021, 03/02, 12/27/2018, Additional history exists Influenza Vaccine (#1) 2023 8, 01/13/2017, 12/31/2015 Hemoglobin A1C 09/28/2024 03/31/2024 eGFR 03/31/2025 03/31/2024, 03/02, 12/16/2017 Fall Risk Assessment 04/07/2025 04/07/2024 Medical Devices Implanted Type Area Family Services Specialist Device Identifier Shelf Expiration Date Model / Serial / Lot Order Desk [employer] Tama 20ga 5cm Reposition J Curve Wire Centimeter Andrew Stabilizer [id number] - [id number] Implanted:Qty: 1 on 04/07/2024 by Eleazar Gavin MD at [facility] Right: Breast [employer] [id number] 01/12/2029 [id number] / / [id number] Procedures Procedure Name Priority Date/Time Associated Diagnosis Comments POCT GLUCOSE DEVICE Routine 04/07/2024 3 :39 PM BREAKER TABLE WORKER POCT GLUCOSE DEVICE Routine 04/07/2024 3 :22 PM BREAKER TABLE WORKER POCT GLUCOSE DEVICE Routine 04/07/2024 3 :01 PM BREAKER TABLE WORKER POCT GLUCOSE DEVICE Routine 04/07/2024 2 :42 PM BREAKER TABLE WORKER RADIOLOGIC EXAMINATION OF SURGICAL SPECIMEN Schedule Routine, Read Routine (OP Routine) 04/07/2024 2:37 PM BREAKER TABLE WORKER Invasive ductal carcinoma of breast, female, right (HCC) SURGICAL PATHOLOGY Routine 04/07/2024 1: 54 PM BREAKER TABLE WORKER Invasive ductal carcinoma of breast, female, right (HCC) FL AN PROCEDURE PLACEHOLDER Routine 04/07/2024 1:17 PM BREAKER TABLE WORKER FL AN ELECTIVE SUPRAGLOTTIC AIRWAY Routine 04/07/2024 1:17 PM BREAKER TABLE WORKER LUMPECTOMY 04/07/2024 1:05 PM BREAKER TABLE WORKER RIGHT BREAST CANCER MAMMO GUIDED LOCALIZATION BREAST RIGHT Schedule Routine, Read Routine (OP Routine) 04/07/2024 12:30 PM BREAKER TABLE WORKER Invasive ductal carcinoma of breast, female, right (HCC) POCT GLUCOSE DEVICE Routine 04/07/2024 10:24 AM BREAKER TABLE WORKER EGFR Routine 03/31/2024 3:12 PM BREAKER TABLE WORKER Pre-op testing HEMOGLOBIN A1C Routine 03/31/2024 3:12 PM BREAKER TABLE WORKER Pre-op testing Diabetes mellitus due to underlying condition with complication (CMS/HCC) (HCC) CBC WITHOUT DIFFERENTIAL Routine 03/31/2024 3:12 PM BREAKER TABLE WORKER Pre-op testing BASIC METABOLIC PANEL Routine 03/31/2024 3:12 PM BREAKER TABLE WORKER Pre-op testing ECG 12-LEAD Routine 03/31/2024 3:03 PM BREAKER TABLE WORKER Pre-op testing SURGICAL PATHOLOGY Routine 03/27/2024 8: 46 AM BREAKER TABLE WORKER Malignant neoplasm of upper-outer quadrant of right breast in female, estrogen receptor negative (HCC) BREAST IMAGING US OUTSIDE REFERENCE Routine 01/20/2024 12:05 AM BREAKER TABLE WORKER BREAST IMAGING MG DIAGNOSTIC OUTSIDE REFERENCE Routine 01/20/2024 12:00 AM BREAKER TABLE WORKER POCT LIPID PANEL Routine 08/19/2021 5:01 PM CDT Mixed diabetic hyperlipidemia associated with type 2 diabetes mellitus (CMS/HCC) (HCC) from Last 3 Months or Most Recently Relevant to Health Maintenance Results * POCT glucose (04/07/2024 3:39 PM BREAKER TABLE WORKER) Glucose, POC 150 70 - 199 mg/dL Comment:Testing performed by : [facility], [address] [place] [address]., [address] Glucose comment 1 Use This Result KISHA Comment:Testing performed by : [address] [address] Blood 04/07/2024 3:39 PM BREAKER TABLE WORKER 04/07/2024 3:39 PM BREAKER TABLE WORKER Aram Oro MD LAB POCT ORDERABLES - DEVIC E Final Result Performing Organization Address [facility] Co de Phone Number [facility] [address] [facility] [place] [place] [address] * POCT glucose (04/07/2024 3:22 PM BREAKER TABLE WORKER) [facility] Signature Glucose, POC 81 70 - 199 mg/dL Comment:Testing performed by : [address] [address] Blood 04/07/2024 3:22 PM BREAKER TABLE WORKER 04/07/2024 3:22 PM BREAKER TABLE WORKER Aram Oro MD LAB POCT ORDERABLES - DEVIC E Final Result [facility] [address] [facility] [place] [address] * (ABNORMAL) POCT glucose (04/07/2024 3:01 PM BREAKER TABLE WORKER) Glucose, POC 59(L) 70 - 199 mg/dL Comment:Testing performed by : [address] [address] Glucose comment 1 Use This Result KISHA TOWNSEND Comment:Testing performed by : [address] [address] Glucose comment 2 RN/MD Notified KISHA Comment:Testing performed by : [address] [address] Blood 04/07/2024 3:01 PM BREAKER TABLE WORKER 04/07/2024 3:01 PM BREAKER TABLE WORKER Aram Oro MD LAB POCT ORDERABLES - DEVIC E Final Result Performing Organization Address City/[facility] Co de Phone Number KISHA [facility] [place] [place] [address] * (ABNORMAL) POCT glucose (04/07/2024 2:42 PM BREAKER TABLE WORKER) [facility] Glucose, POC 62(L) 70 - 199 mg/dL Comment:Testing performed by : [facility], [address] [place] [address]., [address] Glucose comment 1 Use This Result KISHA Comment:Testing performed by : [address] [address] Glucose comment 2 RN/MD Notified KISHA Comment:Testing performed by : [address] [address] Blood 04/07/2024 2:42 PM BREAKER TABLE WORKER 04/07/2024 2:42 PM BREAKER TABLE WORKER Aram Oro MD LAB POCT ORDERABLES - DEVIC E Final Result Performing Organization Address City/[facility] Co de Phone Number DANNY[address] [place] [employer] [place] [address] * Radiologic Examination of Surgical Specimen (04/07/2024 2:37 PM BREAKER TABLE WORKER) Anatomical Region Laterality Modality Breast N/A Mammography 04/07/2024 2:07 PM BREAKER TABLE WORKER Narrative 04/07/2024 2:12 PM BREAKER TABLE WORKER EXAM DESCRIPTION: MAMMO GUIDED LOCALIZATION BREAST RIGHT; [...] a lateral approach using a 5 cm Tama needle. Appropriate positioning of the needle and [...] by Eleazar Gavin M.D., MD: Report ID: [id number] Reading Location: [facility] Aram Oro MD IM MAMMO PROCEDURES Final Result * Surgical pathology (04/07/2024 1:54 PM BREAKER TABLE WORKER) Tissue (Breast, lumpectomy) 04/07/2024 1:54 PM BREAKER TABLE WORKER Narrative PATHOLOGY [facility] - 04/14/2024 6:26 PM BREAKER TABLE WORKER [facility] Department of Pathology [address] [place] [address] Note to Patients: This report may contain [...] : 1945 (Age: 78) Gender: F Address: [address] [place] [id number] Hospital #: [id number] Service: Surgery Location: Patient Type: [facility] OUTPATIENT Taken: 04/07/2024 Received: 04/07/2024 Accessioned: 04/07/2024 [...] Biomarker Testing performed on Previous Case: (OSC: [id number], 01/20/24) Estrogen Receptor (ER): Positive Rambo score [...] margin (closest margin). By Twila Bazzi MS, ([facility])CM Microscopic Description: The invasive carcinoma correlates [...] Lateral margin/slice 15, perpendicularly sectioned Jar: 1 [facility]04/07/2024 14:25 Twila Bazzi MS, PA (ASC Microscopic slide review and interpretation for this case was performed at [facility], Department of Surgical Pathology, [address] [facility] [place], [place] [id number], [place] [address] [facility] # [id number] us Aram Oro MD LAB PATHOLOGY ORDERABLES Fi nal Result PATHOLOGY MB * FL AN ELECTIVE SUPRAGLOTTIC AIRWAY, FL AN PROCEDURE PLACEHOLDER (04/07/2024 1:17 PM BREAKER TABLE WORKER) Narrative Kin Lynch CRNA - 04/07/2024 1:17 PM BREAKER TABLE WORKER Kin Lynch CRNA 04/07/2024 1:18 PM Airway Patient location: OR Urgency: elective Indications for airway management: anesthesia Difficult airway: no Staff: Placed by: BALLAST REGULATOR OPERATOR: Kin Lynch CRNA Emergent airway documentation: Risks [...] Guided Localization Breast Right (04/07/2024 12:30 PM BREAKER TABLE WORKER) Anatomical Region Laterality Modality Breast Right Mammography, Com puted Radiography 04/07/2024 2:07 PM BREAKER TABLE WORKER Narrative 04/07/2024 2:12 PM BREAKER TABLE WORKER EXAM DESCRIPTION: MAMMO GUIDED LOCALIZATION BREAST RIGHT; [...] a lateral approach using a 5 cm Tama needle. Appropriate positioning of the needle and [...] PM - Electronically signed by Eleazar Gavin M.D. MD: Report ID: [id number] [facility] Aram Oro MD IMG MAMMO PROCEDURES Final Result * POCT glucose (04/07/2024 10:24 AM BREAKER TABLE WORKER) [facility] Glucose, POC 85 70 - 199 mg/dL Comment:Testing performed by : [facility], [address] [place] [address]., [address] Glucose comment 1 Use This Result KISHA TOWNSEND Comment:Testing performed by : [facility], [address] [place] [address]., [address] Blood 04/07/2024 10:2 4 AM BREAKER TABLE WORKER 04/07/2024 10:24 AM BREAKER TABLE WORKER Aram Oro MD LAB POCT ORDERABLES - DEVIC E Final Result KISHA [address] [facility] Department [place] [address] * eGFR (03/31/2024 3:12 PM BREAKER TABLE WORKER) [facility] eGFR >90 >=60 mL/min/1. 73 m2 Comment: [...] was last reviewed 2020. Testing performed by: [address] [address] Blood 03/31/2024 3:12 PM BREAKER TABLE WORKER 03/31/2024 3:23 PM BREAKER TABLE WORKER us Eleazar Ibrahim MD LAB BLOOD ORDERABL ES Final Result [facility] [address] [facility] Department [place] [address] * (ABNORMAL) CBC without differential (03/31/2024 3:12 PM BREAKER TABLE WORKER) Pathologist [facility] WBC 6.6 3.8 - 9.9 K/cumm Comment:Testing performed by : [address] [address] Hgb 11.0(L) 11.9 - 15.5 g/dL KISHA TOWNSEND Comment:Testing performed by : [address] [address] Hct 33.8(L) 35.6 - 45.5 % KISHA TOWNSEND Comment:Testing performed by : [address] [address] Plt 300 150 - 400 K/cumm KISHA TOWNSEND Comment:Testing performed by : [address] [address] MPV 9.9 9.1 - 12.3 fL KISHA TOWNSEND Comment:Testing performed by : [facility], [address] [place] [address]., [address] RBC 3.83(L) 3.90 - 5.20 M/cumm KISHA TOWNSEND Comment:Testing performed by : [address] [address] MCV 88.3 81.3 - 96.4 fL KISHA Comment:Testing performed by : [address] [address] MCH 28.7 27.1 - 33.3 pg KISHA Comment:Testing performed by : [address] [address] MCHC 32.5 32.3 - 35.7 g/dL KISHA Comment:Testing performed by : [address] [address] RDW CV 14.9 11.1 - 14.9 % KISHA Comment:Testing performed by : [address] [address] RDW SD 48.0 35.7 - 48.1 fL KISHA Comment:Testing performed by : [address] [address] NRBC abs 0.00 0.00 - 0.01 K/cumm KISHA Comment:Testing performed by : [address] [address] Blood 03/31/2024 3:12 PM BREAKER TABLE WORKER 03/31/2024 3:22 PM BREAKER TABLE WORKER Narrative KISHA - 03/31/2024 3:28 PM BREAKER TABLE WORKER PRE SURGICAL TESTING ONLY--04/07/2024-RIGHT BREAST NEEDLE LOCALIZATION LUMPECTOMY: -Surgeons and Role: * Aram Oro MD - Primary-@ANPROCEDURE@ us Eleazar Ibrahim MD LAB BLOOD ORDERABL ES Final Result [facility] [address] [facility] Department [place] [address] * (ABNORMAL) Hemoglobin A1c (03/31/2024 3:12 PM BREAKER TABLE WORKER) Pathologist [facility] Hgb A1C 5.9(H) 4.0 - 5.6 % Comment:Testing performed by : [address] [address] Estimated Average Glucose 123 mg/dL KISHA TOWNSEND Comment: The ADA recommends reporting an estimated Average Glucose (eAG) with all Hemoglobin A1c results using the equation derived from a study of 507 normal and diabetic adults. Minority populations were underrepresented and children were not included. (Diabetes Care 31:1314-1384, 2008). The eAG is not equivalent to a fasting glucose. Testing performed by: [address] [address] Blood 03/31/2024 3:12 PM BREAKER TABLE WORKER 03/31/2024 3:22 PM BREAKER TABLE WORKER Narrative KISHA TOWNSEND - 03/31/2024 5:28 PM BREAKER TABLE WORKER PRE SURGICAL TESTING ONLY--04/07/2024--Surgeons and Role: * Aram Oro MD - Primary-@ANPROCEDURE@ us Eleazar Ibrahim MD LAB BLOOD ORDERABL ES Final Result KISHA [address] [facility] Department [place] [address] * (ABNORMAL) Basic metabolic panel (03/31/2024 3:12 PM BREAKER TABLE WORKER) [facility] Sodium 142 135 - 145 mmol/L Comment:Testing performed by : [address] [address] Potassium, pl 3.3 3.3 - 4.9 mmol/L KISHA TOWNSEND Comment:Testing performed by : [address] [address] Chloride 104 97 - 110 mmol/L KISHA TOWNSEND Comment:Testing performed by : [address] [address] CO2 28 22 - 32 mmol/L KISHA TOWNSEND Comment:Testing performed by : [address] [address] Anion gap 10 2 - 15 mmol/L KISHA Comment:Testing performed by : [address] [address] BUN 9 6 - 25 mg/dL KISHA Comment:Testing performed by : [address] [address] Creatinine 0.48(L) 0.60 - 1.10 mg/dL KISHA Comment:Testing performed by : [address] [address] Glucose 81 70 - 199 mg/dL KISHA [...] was last revised 2022. Testing performed by: [address] [address] Calcium 9.3 8.5 - 10.3 mg/dL KISHA Comment:Testing performed by : [address] [address] Blood 03/31/2024 3:12 PM BREAKER TABLE WORKER 03/31/2024 3:23 PM BREAKER TABLE WORKER Narrative [facility] - 03/31/2024 3:53 PM BREAKER TABLE WORKER PRE SURGICAL TESTING ONLY--04/07/2024-RIGHT BREAST NEEDLE LOCALIZATION LUMPECTOMY: -Surgeons and Role: * Aram Oro MD - Primary- us Eleazar Ibrahim MD LAB BLOOD ORDERABL ES Final Result KISHA [address] [facility] [place] [address] * ECG 12 lead (03/31/2024 3:03 PM BREAKER TABLE WORKER) Ventricular Rate EKG/Min 71 BPM [facility] Atrial Rate 71 BPM [facility] FL-Interval (MSEC) 262 ms [facility] QRS-Interval (MSEC) 78 ms [facility] QT-Interval (MSEC) 428 ms [facility] QTc 465 ms [facility] P [place] 56 degrees [facility] R [place] 4 degrees [facility] T [place] 67 degrees [facility] Diagnosis Sinus rhythm with 1st degree A-V block Septal infarct , age undetermined Abnormal ECG When compared with ECG of 19-OCT-1992 11:15, FL interval has increased Septal infarct is now Present Confirmed by REY YOUNG M.D. ([id number]) on 04/03/2024 8:59:18 PM [facility] 03/31/2024 3:03 PM BREAKER TABLE WORKER 04/03/2024 8:59 PM BREAKER TABLE WORKER us Eleazar Ibrahim MD ECG ORDERABLES nal Result [facility] * Surgical pathology (03/27/2024 8:46 AM BREAKER TABLE WORKER) Tissue (Miscellaneous) 03/27/2024 8:46 AM BREAKER TABLE WORKER 03/27/2024 8:46 AM BREAKER TABLE WORKER Narrative [facility] - 03/30/2024 6:05 PM BREAKER TABLE WORKER EPIC results best viewed via link to PDF [facility] Pathology Consult Service [facility] [address], [place] [address] Note to Patients: This report may [...] SURGICAL PATHOLOGY REPORT * Consult Report * [facility] is providing an additional review of previously collected tissue. FINAL Patient Name: RULA GOLDSTEIN Address: [address] [place] [id number] Gender: F : 1945 (Age: 78) Hospital #: [id number] Patient Type: SUBHASH Location: UNKNOWN Taken: 03/27/2024 Received: 03/27/2024 Accessioned: 03/27/2024 Reported: 03/30/2024 Physician(s): Dr. Lobo Driscoll D.O. [facility] Department of Pathology [facility] [address] P: [phone] F: [phone] Diagnosis: Consult material received from [place], [place] (OSC: [id number]; 01/20/2024) Breast, right, 10:00, 4.5 cm from nipple, core biopsy - Invasive ductal carcinoma - Greatest microscopic dimension = 5 mm - Histologic grade = 2/3 (tubules 3 + nuclei 2 + mitoses 1 = 6/9) by ESBR criteria - Biomarkers (slides are provided for review) - ER by IHC: positive, Rambo score 8/8 - FL by IHC: positive, Rambo score 7/8 - Her-2 by IHC: Equivocal (score 2+); FISH negative, per report - Ki-67 Index: 5-10% - Ductal carcinoma in situ (DCIS) - Nuclear 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 The material originates from [place], [place] . Selected slide(s) may be digitally scanned for our files, and all materials are returned to the referring institution, along with a copy of our final report. Any testing required for diagnostic purposes was performed in the Department of Pathology and Immunology at [facility] Medical [facility], [address] [place] [address] CLIA # [id number] The performance characteristics of the testing cited in this report (if any) were determined by the [facility] Department of Pathology and Immunology [facility], as part of an ongoing quality engineer program and in compliance with federally mandated [...] and the performance characteristics determined by the [facility], [facility] Department of Pathology and Immunology. It has not been cleared or approved by the U.S. Food and Drug Administration. Any test designated as LDT was developed and its performance characteristics determined by [facility]. It has not been cleared or approved by the FDA. This test is used for clinical purposes and should not be regarded as investigational or for research. Report images and/or scanned reports, if included, only viewable in PDF version of report. Lobo Driscoll DO LAB PATHOLOGY ORDERABLES Fin al Result [facility] [address] [address] * Breast Imaging US Outside Reference (01/20/2024 12:05 AM BREAKER TABLE WORKER) Narrative [facility]O_[facility]STIANB[facility] - 03/20/2024 1:35 PM BREAKER TABLE WORKER This order has been auto-finalized and does not contain a result. Provider Transcribed Order IMG MAMMO PROCEDURES Final Result RAD_QUEENIE_MHB_[facility] * Breast Imaging Diagnostic Outside Reference (01/20/2024 12:00 AM BREAKER TABLE WORKER) Narrative VONDA - 03/20/2024 1:35 PM BREAKER TABLE WORKER This order has been auto-finalized and does not contain a result. us Provider Transcribed Order IMG MAMMO PROCEDURES Final Result [facility]_QUEEN[facility]_STEWART_[facility] * POCT lipid panel (08/19/2021 5:01 PM CDT) Cholesterol, POC 99 mg/dL HDL, POC 24 mg/dL Triglycerides, POC 193 mg/dL LDL Cholesterol POC 49 mg/dL Chol/HDL Ratio, POC na Non-HDL Cholesterol, POC na mg/dL Cholesterol Total, POC 99 mg/dL Capillary blood 08/19/2021 5 :01 PM CDT Hailey Del Toro MD POINT OF CARE TEST ORDERABL ES Final Result from Last 3 Months or Most Recently Relevant to [place] [address] MEDICARE [facility] MEDICARE [address] [facility] Care Teams Director Global Strategic Publisher Sales Relationship Specialty Start Date End Date David Pruitt MD [address] [place] [address] [address] [place] [address] PCP - General Family Medicine 06/30/17 Aram Oro MD [address] [place] [address] [address] [place], [place] [id number] Consulting Physician Surgery 02/29/24 David Fried MD [address] [place] [address] [address] [place] [address] Radiation Oncologist Radiation Oncology 02/29/24 Chema Foreman MD [address] [facility] [address] [address] Consulting Physician Interventional Cardiology 03/17/24
--- OUTSIDE RECORDS SUMMARY | 2024-04-20 12:25 | XMS_ITS | Referral Summary ---
Author Organization [facility] Address [address] [facility] [place] [address] Care Team Providers Care Artificial Limb Fitter Name Role Phone Unavailable Primary Care Provider Unavailabl e Source Comments [facility],non-owned Affiliates and Associated Physician Practices is amultiple site organization consisting of ambulatory clinics and hospital sitesin [place], [place], [place] and [place]. This disclosure is being madepursuant to the Care Everywhere program and may not contain all information available regarding this patient. Last updated 17.[facility] [employer] Social History Tobacco Use Types Packs/Day Years Used Date Smoking Tobacco: Never Assessed Sex and Gender Information Value Date Recorded Sex Assigned at Not on file Gender Identity Not on file Sexual Orientation Not on file Plan of Treatment Not on file
--- OUTSIDE RECORDS SUMMARY | 2024-04-20 12:25 | XMS_ITS | Encounter Summary ---
Author Organization [facility] Healthcare Address [address] [place] [address] Care Team Providers Care Fluid Jet Cutter Operator Name Role Phone David Pruitt MD Primary Care Provider Aram Oro MD Unavailable [phone] David Fried MD Unavailable [phone] Chema Foreman MD Unavailable [phone] Reason for Visit * Reason Onset Date Comments cardiac clearance 04/04/2024 Abnormal ECG 04/04/2024 Encounter Details Date Type Department Care Team (Late st Contact Info) Description 04/04/2024 Telephone [facility] Medical Group Cardiology [address] [place] [address] Chema Foreman MD [address] [address] cardiac clearance; Abnormal ECG Social History Tobacco Use Types Packs/Day Years Used Date Smoking Tobacco: Former Smokeless Tobacco: Never Comments:Quit 1996 Alcohol Use Standard Drinks/Week Comments [...] feel afraid or unsafe? 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 Completed forms faxed as requested. NG COILER * Telephone Encounter - Amna Berrios - 04/04/2024 10:01 AM CST Nahed from [facility] states that she is faxing over an abnormal ECG. States that RP recently cleared patient for surgery but last Friday 03/31 they performed an ECG that was abnormal. Needs the clearance updated. Please advise. Thank you. NG COILER documented in this encounter Plan of Treatment Not on file documented as of this encounter Visit Diagnoses Not on filedocumented in this encounter Care Teams Fluid Jet Cutter Operator Relationship Specialty Start Date End Date David Pruitt MD [address] [facility] [address] [place] [address] PCP - General Family Medicine 06/30/17 Aram Oro MD 1414 [facility] [address] [place] [address] Consulting Physician Surgery 02/29/24 [place] [address] [place] [address] Radiation Oncologist Radiation Oncology 02/29/24 Chema Foreman MD [address] [facility] [address], [place] [id number] Consulting Physician Interventional Cardiology 03/17/24 documented as of this encounter
--- OUTSIDE RECORDS SUMMARY | 2024-04-20 12:25 | XMS_ITS | Clinical Summary ---
Author Organization [facility] Address [address] [place] [address] Phone Care Team Providers Care Gumming Machine Operator Name Role Phone Unavailable Primary Care Provider Unavailabl e Allergies Active Allergy Reactions Criticality Noted Date Comments Fish Oil 12/05/2020 Medications Medication Sig Dispensed Refills Start Date End Date Status montelukast (Singulair) 10 MG tablet Take 10 mg by mouth 1 (one) time each day in the morning Active DULoxetine (CYMBALTA) [address] capsule Take 60 mg by mouth 1 (one) time each day Do not crush or chew. Active hydroCHLOROthiazide (HYDRODIURIL) 25 MG tablet Take 25 mg by mouth 1 (one) time each day Active levothyroxine (SYNTHROID) 150 MCG tablet Take 150 mcg by mouth 1 (one) time each day Active metoprolol succinate XL (TOPROL-XL) 25 MG 24 hr tablet Take 25 mg by mouth 1 (one) time each day Do not crush or chew. Active amLODIPine (NORVASC) 5 MG tablet Take 5 mg by mouth 1 (one) time each day Active Calcium Carbonate-Vitamin D (CALTRATE 600+D PO) Take by mouth 2 (two) times a day Active Insulin Glargine, 2 Unit Dial, (Toujeo Max SoloStar) 300 UNIT/ML solution pen-injector Inject 100 Units under the skin 1 (one) time each day in the morning Active insulin lispro (HumaLOG) 100 UNIT/ML injection Inject under the skin 3 (three) times a day before meals Active omeprazole (PriLOSEC) [address] capsule Take 20 mg by mouth 1 (one) time each day Do not crush or chew. Active Tiotropium [place] Monohydrate (SPIRIVA HANDIHALER IN) Inhale 1 (one) time each day Active aspirin (ST ERIBERTO) 81 MG EC tablet Take 81 mg by mouth 1 (one) time each day Active Multiple Vitamin (multivitamin) tablet Take 1 tablet by mouth 1 (one) time each day Active rosuvastatin (CRESTOR) 10 MG tablet Take 10 mg by mouth 1 (one) time each day Active losartan (COZAAR) 50 MG tablet Take 50 mg by mouth 1 (one) time each day Active cetirizine (ZyrTEC) 10 MG tablet Take 10 mg by mouth 1 (one) time each day Active methotrexate 2.5 MG tablet Take by mouth 6 tablets weekly Active folic acid (FOLVITE) 1 MG tablet Take 1 mg by mouth 1 (one) time each day Active DULoxetine (CYMBALTA) [address] capsule Take 30 mg by mouth 1 (one) time each day in the morning Do not crush or chew. Active albuterol HFA (PROVENTIL HFA) 108 (90 Base) MCG/ACT inhaler Inhale 2 puffs every 6 (six) hours if needed for wheezing Active predniSONE (DELTASONE) 5 MG tablet Take 5 mg by mouth 1 (one) time each day Active Active Problems Problem Noted Date Diagnosed Date Essential hypertension 04/11/2021 Renal function tests abnormal 12/05/2020 Diabetes mellitus 12/02/2020 Resolved Problems Problem Noted Date Diagnosed Date Resolved Date Serum creatinine raised 12/02/202008/2020 Social History Tobacco Use Types Packs/Day Years Used Date Smoking Tobacco: Never Smokeless Tobacco: Never Alcohol Use Standard Drinks/Week Comments Not Currently 0 (1 standard drink = 0.6 oz pur e alcohol) Sex and Gender Information Value Date Recorded Sex Assigned at Not on file Gender Identity Not on file Sexual Orientation Not on file Last Filed Vital Signs Vital Sign Reading Time Taken Comments Blood Pressure 133/65 12/05/2020 3:37 PM CDT Pulse 96 12/05/2020 3:37 PM CDT Temperature - - Respiratory Rate - - Oxygen Saturation - - Inhaled Oxygen Concentration - - Weight 86.6 kg (191 lb) 04/15/2021 1:13 PM PERSONAL LINES AGENT Height 157.5 cm (5' 2 ) 04/15/2021 8:51 AM PERSONAL LINES AGENT Body Mass Index 34.93 04/15/2021 8:51 AM PERSONAL LINES AGENT Plan of Treatment Health Maintenance Due Date Last Done Comments Pneumococcal PPSV23/PCV13 65 + Years / Low and Medium Risk (1 of 4 - PCV) 09/30/2008 Influenza Vaccine (#1) 2023
--- OUTSIDE RECORDS SUMMARY | 2024-04-20 12:25 | XMS_ITS | Encounter Summary ---
Author Organization [facility] Address [address] [place] [address] Care Team Providers Care Lead Loader Name Role Phone Forrest Wheat DO Primary Care Provider [phone] David Pruitt MD Primary Care Provider [phone] Encounter Details Date Type Department Care Team (Late st Contact Info) Description 08/06/2018 Abstract [facility] CONVERSION [address] [place] [address] , Yoly Manrique MD Social History Tobacco Use Types Packs/Day Years Used Date Smoking Tobacco: Never Assessed Comments Unknown Sex and Gender Information Value Date Recorded Sex Assigned at Not on file Legal Sex Female 5:43 PM CDT Gender Identity Not on file Sexual Orientation Not on file documented as of this encounter Plan of Treatment Not on file documented as of this encounter Visit Diagnoses Not on filedocumented in this encounter Care Teams Lead Loader Relationship Specialty Start Date End Date Forrest Wheat DO [address] [place] [address] PCP - General 05/04/16 10/08/21 David Pruitt MD [address] [facility] [address] [place] [address] PCP - General FAMILY PRACTICE 10/09/21 documented as of this encounter
--- OUTSIDE RECORDS SUMMARY | 2024-04-20 12:25 | XMS_ITS | Patient Health Summary ---
Author Organization [facility] Address [address] [facility] [place] [address] Care Team Providers Care Capsule Maker Name Role Phone Unavailable Primary Care Provider Unavailabl e Note from [facility],non-owned Affiliates and Associated Physician Practices is amultiple site organization consisting of ambulatory clinics and hospital sitesin [place], [place], [place] and [place]. This disclosure is being madepursuant to the Care Everywhere program and may not contain all information available regarding this patient. Last updated 17.[facility] Social History Tobacco Use Types Packs/Day Years Used Date Smoking Tobacco: Never Assessed Sex and Gender Information Value Date Recorded Sex Assigned at Not on file Gender Identity Not on file Sexual Orientation Not on file
--- OUTSIDE RECORDS SUMMARY | 2024-04-20 12:25 | XMS_ITS | Clinical Summary ---
Author Organization [facility] Address [address] [facility] [place] [address] Care Team Providers Care Clay Artist Name Role Phone Unavailable Primary Care Provider Unavailabl e Source Comments [facility],non-owned Affiliates and Associated Physician Practices is amultiple site organization consisting of ambulatory clinics and hospital sitesin [place], [place], [place] and [place]. This disclosure is being madepursuant to the Care Everywhere program and may not contain all information available regarding this patient. Last updated 17.[facility] [employer] Social History Tobacco Use Types Packs/Day Years Used Date Smoking Tobacco: Never Assessed Sex and Gender Information Value Date Recorded Sex Assigned at Not on file Gender Identity Not on file Sexual Orientation Not on file Plan of Treatment Health Maintenance Due Date Last Done Comments BONE DENSITY TESTING 1945 MEDICARE AWV 12 MONTHS 1945 DTAP/TDAP/TD VACCINES (1 - Tdap) 09/30/1962 PNEUMOCOCCAL VACCINE 50+ (1 of 1 - PCV) 09/30/1993 ZOSTER VACCINE (1 of 2) 09/30/1993 Respiratory Syncytial Virus (RSV) Vaccine Pt: or over 60 yrs (1 - 1-dose 75+ series) 09/30/2018 COVID-19 VACCINE ( - 2023-2 5 season) 2023 INFLUENZA VACCINE (#1) 2023 DEPRESSION SCREENING 03/01/2024 HEPATITIS B VACCINE Aged Out No longe r eligible based on patient's age to complete this topic HIB VACCINE Aged Out No longer eligi ble based on patient's age to complete this topic HPV VACCINE Aged Out No longer eligi ble based on patient's age to complete this topic MENINGOCOCCAL (Group B) VACCINE Aged Out No longer eligible based on patient's age to complete this topic MENINGOCOCCAL VACCINE Aged Out No parish z[place] eligible based on patient's age to complete this topic
--- OUTSIDE RECORDS SUMMARY | 2024-04-20 12:25 | XMS_ITS ---
Author Organization [facility] Address [address] [place] [address] Care Team Providers Care Water Plant Operator Name Role Phone David Pruitt MD Primary Care Provider UnavailHerbert Zaragoza Unavailable [phone] Irineo Rivas Unavailable Unavailable REASON FOR VISIT Biologic R/S Encounters Encounter Location Date Provider Diagnosis [facility] [address] [facility] [address] [place] [address] 03/23/2024 Herbert Hancock Plan Of Treatment Next Appt Details Provider Name:Hailey Sotelo , 05/25/2024 03:30:00 PM, [address] [facility], [address], [place], [address], Progress Notes * Rula GOLDSTEINDOB:1945 (78 yo F)Acc No.[id number]:03/23/2024 Patient: Rula STRONG :1945 A ge:78 Y S ex:Female Address:[address] [place] [address] [place], [address] * true * Date: Generated for Printi ng/Faxing/eTransmitting on: 0 04/20/2024 12:25 PM BARMAN
--- NOTE | 2024-04-20 12:38 | ECG_ITS ---
Test Date: 2024-04-20 13:42:52 Measurements Intervals [place] Rate: 98 P: 89 WV: 265 QRS: 55 QRSD: 83 T: 86 QT: 347 QTc: 444 Interpretive Statements SINUS RHYTHM WITH FIRST DEGREE AV BLOCK CANNOT R/O SEPTAL INFARCT, AGE INDETERMINATE BORDERLINE ST-T WAVE ABNORMALITY- INF/LAT LEADS BASELINE ARTIFACT- I, II, III, AVR, AVL, AVF, V1-V6 ABNORMAL ECG No previous ECG available for comparison Electronically Signed On 04-20-2024 13:45:09 SLURRY CONTROL OPERATOR HELPER by Osei Avila D.O.
--- OUTSIDE RECORDS SUMMARY | 2024-04-20 12:50 | XMS_ITS | Clinical Summary ---
Author Organization [facility] Address [address] [place] [address] Phone Care Team Providers Care Crane Crew Supervisor Name Role Phone Unavailable Primary Care Provider [...] Do not crush or chew. Active Tiotropium [place] Monohydrate (SPIRIVA HANDIHALER IN) Inhale 1 (one) [...] 86.6 kg (191 lb) 04/15/2021 1:13 PM PHARMACY ANCILLARY Height 157.5 cm (5' 2 ) 04/15/2021 8:51 AM PHARMACY ANCILLARY Body Mass Index 34.93 04/15/2021 8:51 AM PHARMACY ANCILLARY Plan of Treatment Health Maintenance Due Date Last Done Comments Pneumococcal PPSV23/PCV13 65 + Years / Low and Medium Risk (1 of 4 - PCV) 09/30/2008 Influenza Vaccine (#1) 2023
--- OUTSIDE RECORDS SUMMARY | 2024-04-20 12:50 | XMS_ITS | Clinical Summary ---
Author Organization [facility] Address [address] [place] [address] Care Team Providers Care Coach Tour Driver Name Role Phone David Pruitt MD Primary Care Provider [phone] Active Problems Problem Noted Date Diagnosed Date Bilateral hip bursitis 09/08/2019 Encounters Date Type Department Care Team Description 02/11/2024 12:39 PM GENERAL MAINTENANCE HELPER - 02/11/2024 11:59 PM [facility] Hospital Encounter [facility] [address] [place] [address] Aram Faulkner MD Discharge Disposition: Home or [...] NON BREAST RT Routine 02/11/2024 1:24 PM GENERAL MAINTENANCE HELPER Breast cancer, right breast ([facility]) Axillary lymphadenopathy from Last 3 Months Results * US AXILLARY NON BREAST RT (02/11/2024 1:24 PM GENERAL MAINTENANCE HELPER) Anatomical Region Laterality Modality Extremity Ultrasound 02/11/2024 1:18 PM GENERAL MAINTENANCE HELPER Impressions 02/11/2024 1:19 PM GENERAL MAINTENANCE HELPER IMPRESSION: Benign-appearing lymph node in the right axilla. Ordered By: ARAM FAULKNER Interpreted By: Alek Boucher, 02/11/2024 1:18 PM Narrative 02/11/2024 1:19 PM GENERAL MAINTENANCE HELPER [facility] [address] [place], [place] [address] IMAGING STUDIES: US AXILLARY NON BREAST RT DATE: 02/11/2024 1:00 PM CLINICAL HISTORY: right breast cancer . COMPARISON: No Comparisons. FINDINGS: . Imaging of the right axilla demonstrates nonpathologic size lymph node. Measures 2.1 x 0.6 x 1.9 cm. Cortex is not thickened. Color flow seen to the hilum. No shadowing. Procedure Note Jose Boucher MD - 02/11/2024 [facility] [address] [place], [place] [address] IMAGING STUDIES: US AXILLARY NON BREAST RT [...] Ordered By: ARAM FAULKNER Interpreted By: Alek Bocuher, 02/11/2024 1:18 PM Aram Faulkner MD ULTRASOUND Final Result from Last 3 [place] [address] [address] MEDICARE [facility] Care Teams Coach Tour Driver Relationship Specialty Start Date End Date David Pruitt MD [address] [place] [address] PCP - General FAMILY PRACTICE 10/09/21
--- OUTSIDE RECORDS SUMMARY | 2024-04-20 12:50 | XMS_ITS | Encounter Summary ---
Author Organization [facility] Healthcare Address [address] [place] [address] Care Team Providers Care Radiation Control Specialist Name Role Phone David Pruitt MD Primary Care Provider Aram Oro MD Unavailable [phone] David Fried MD Unavailable [phone] Chema Foreman MD Unavailable [phone] Reason for Visit * Reason Onset Date Comments cardiac clearance 04/04/2024 Abnormal ECG 04/04/2024 Encounter Details Date Type Department Care Team (Late st Contact Info) Description 04/04/2024 Telephone [facility] Medical Group Cardiology [address] [place] [address] Chema Foreman MD [address] [address] cardiac clearance; Abnormal ECG Social [...] on file Legal Sex Female 12:20 AM HEMP FIBER TAKER OFF Gender Identity Female 12/31/2023 2:40 PM CDT Sexual Orientation Asexual 12/31/2023 2: 43 PM CDT 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 Completed forms faxed as requested. FIBER TAKER OFF * Telephone Encounter - Amna Berrios - 04/04/2024 10:01 AM CST Nahed from [facility] states that she is faxing over an abnormal ECG. States that RP recently cleared patient for surgery but last Friday 03/31 they performed an ECG that was abnormal. Needs the clearance updated. Please advise. Thank you. FIBER TAKER OFF documented in this encounter Plan of Treatment Not on file documented as of this encounter Visit Diagnoses Not on filedocumented in this encounter Care Teams Radiation Control Specialist Relationship Specialty Start Date End Date David Pruitt MD 68[address] [facility] [address] [place] [address] PCP - General Family Medicine 06/30/17 Aram Oro MD 1414 [facility] [address] [place] [address] Consulting Physician Surgery 02/29/24 [place] [address] [place] [address] Radiation Oncologist Radiation Oncology 02/29/24 Chema Foreman MD [address] [facility] [address], [place] [address] Consulting Physician Interventional Cardiology 03/17/24 documented as of this encounter
--- OUTSIDE RECORDS SUMMARY | 2024-04-20 12:50 | XMS_ITS | Clinical Summary ---
Author Organization [facility] Address [address] [place] [address] Care Team Providers Care Map Mounter Name Role Phone David Pruitt MD Primary Care Provider Aram Oro MD Unavailable [phone] David Fried MD Unavailable [phone] Chema Foreman MD Unavailable [phone] Allergies Active Allergy Reactions Criticality Noted Date Comments Atorvastatin Muscle pain Medium 01/01/2019 Myalgias on atorvastatin 20 mg Hamel-3 Fatty Acids Rash Medium 01/27/2018 Flecainide Other [...] (LEVOTHYROXINE ORAL) Take 100 mcg by mouth encapsulator before breakfast 06/16/19 18 Active montelukast (SINGULAIR) [...] tabletIndications: Mixed hyperlipidemia,Cor onary artery disease involving [place] coronary artery of [place] heart without angina pectoris Take 1 tablet [...] PRN for 30 day(s) Active Ca carb-D3-mag [id number] (Caltrate-D3 Plus Minerals) 600 mg-20 mcg- 50 [...] from 03/11/2024:Stage IA(cT1c, cN0, cM0, G1, ER+, MN+, HER2: Equivocal) - Signed by David Fried [...] 01/27/2018 Assessment & Plan (01/27/2018 2:58 PM FILTER TANK OPERATOR): Reviewed chart and discussed blood work with patient. She denies any GI sx and says EGD 2 yrs ago and [id number] this year. Discussed posssibility of gi blood loss and offered EGD/Colonoscopy. At this time she declines and promises to follow blood counts with PMD promising to call if changes her mind Coronary artery disease invo lving koy[place] coronary artery of [place] heart without angina pectoris 01/26/2018 Mixed hyperlipidemia [...] Department Care Team Description 04/07/2024 1:05 PM FILTER TANK OPERATOR Anesthesia Event [facility] OR [address] [place] [address] Andrew Rubalcava MD Boivin, James R., MD 04/07/2024 1:00 PM FILTER TANK OPERATOR - 04/07/2024 2:35 PM FILTER TANK OPERATOR Surgery [facility] OR [address] [place] [address] Aram Oro MD RIGHT BREAST NEEDLE LOCALIZATION LUMPECTOMY 04/07/2024 11:29 AM FILTER TANK OPERATOR - 04/07/2024 11:59 PM FILTER TANK OPERATOR Hospital Encounter [facility] Medical Office Bldg 1 [facility] [address] [place] [address] Invasive ductal carcinoma of breast, female, right (HCC) Discharge Disposition: Discharge to home or self care 04/07/2024 10:28 AM FILTER TANK OPERATOR - 04/07/2024 11:59 PM FILTER TANK OPERATOR Hospital Encounter [facility] Breast Imaging [facility] [place] [phone] Invasive ductal carcinoma of breast, female, right (HCC) Discharge Disposition: Discharge to home or self care 04/07/2024 9:38 AM FILTER TANK OPERATOR - 04/07/2024 4:40 PM FILTER TANK OPERATOR Hospital Encounter [facility] OR [address] [place] [address] Aram Oro MD Invasive ductal carcinoma of breast, female, right (HCC) Discharge Disposition: Discharge to home or self care 04/04/2024 Telephone [facility] Cardiology [address] [place] [address] Chema Foreman MD cardiac clearance; Abnormal ECG 03/31/2024 3:00 PM FILTER TANK OPERATOR Pre-Admission Testing [facility] Pre Admit Testing [address] [place] [address] Pre-op testing (Primary Dx); Diabetes mellitus due to underlying condition with complication (CMS/HCC) (HCC) 03/27/2024 3:30 PM FILTER TANK OPERATOR Office Visit [facility] Oncology [facility] [place] [phone] Lobo Driscoll, Malignant neoplasm of upper-outer quadrant of right breast in female, estrogen receptor positive (HCC) (Primary Dx) 03/27/2024 Orders Only JAROD [address] [address] Lobo Driscoll DO Malignant neoplasm of upper-outer quadrant of right breast in female, estrogen receptor negative (HCC) 03/22/2024 Orders Only [facility] Oncology [facility] [place] [phone] Lobo Driscoll, Malignant neoplasm of upper-outer quadrant of right breast in female, estrogen receptor negative (HCC) (Primary Dx) 03/11/2024 10:00 AM FILTER TANK OPERATOR Consult [facility] Medical Office Building 2 Radiation Oncology [address] [place] [address] David Fried MD Class 2 obesity (Primary Dx); Malignant neoplasm of upper-outer quadrant of right breast in female, estrogen receptor positive (HCC) 02/11/2024 2:05 PM FILTER TANK OPERATOR Lab [facility] Medical Office Building [address] [place] [address] 01/20/2024 12:05 AM FILTER TANK OPERATOR - 01/20/2024 11:59 PM FILTER TANK OPERATOR Hospital Encounter [facility] Outside Images [address] [place] [address] Discharge Disposition: Discharge to home or self care 01/20/2024 - 01/20/2024 11:59 PM FILTER TANK OPERATOR Hospital Encounter [facility] Outside Images [address] [place] [address] Discharge Disposition: Discharge to home or self [...] Medical History Date Comments DM (diabetes mellitus) ([facility]) His tory of diabetes mellitus - (Added by TW Conv) Hypertension History of hyper tension - (Added by TW Conv) COPD (chronic obstructive pu lmonary disease) ([facility]) History of chronic obstructi ve lung disease [...] - (Added by TW Conv) Rheumatoid arthritis ([facility]) 2020 S/P balloon dilatation of es ophageal stricture Mixed diabetic hyperlipidemi a associated with type 2 diabetes mellitus (CMS/HCC) ([facility]) 06/30/2017 Iron deficiency anemia 01/27/2018 Paroxysmal atrial flutter (C MS/HCC) ([facility]) 01/21/2021 Malignant neoplasm of upper- outer quadrant of right breast in female, estrogen receptor positive ([facility]) 03/11/2024 Vitiligo Lung disease Allergic rhinitis GERD [...] on file Legal Sex Female 12:20 AM FILTER TANK OPERATOR Gender Identity Female 12/31/2023 2:40 PM CDT Sexual Orientation Asexual 12/31/2023 2: 43 PM CDT 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 Not on file Not on file Obstetrics History Last Filed Vital Signs Vital Sign Reading Time Taken Comments Blood Pressure 138/74 04/07/2024 4:28 PM FILTER TANK OPERATOR Pulse 83 04/07/2024 4:28 PM FILTER TANK OPERATOR Temperature 36.3 C (97.4 F) 04/07/2024 3:43 PM FILTER TANK OPERATOR Respiratory Rate 18 04/07/2024 4:28 PM FILTER TANK OPERATOR Oxygen Saturation 95% 04/07/2024 4:28 PM FILTER TANK OPERATOR Inhaled Oxygen Concentration - - Weight 56.1 kg (123 lb 9.6 oz) 04/07/2024 9:50 A M FILTER TANK OPERATOR Height 154.9 cm (5' 1 ) 04/07/2024 9:50 AM FILTER TANK OPERATOR Body Mass Index 23.35 04/07/2024 9:50 AM FILTER TANK OPERATOR Plan of Treatment Health Maintenance Due Date [...] 04/07/2025 04/07/2024 Medical Devices Implanted Type Area Garage Mechanic Device Identifier Shelf Expiration Date Model / Serial / Lot Sales [employer] [place] 20ga 5cm Reposition J Curve Wire Centimeter Andrew Stabilizer [id number] - [id number] Implanted:Qty: 1 on 04/07/2024 by Eleazar Gavin MD at [facility] Right: Breast [employer] [id number] 01/12/2029 [id number] / / [id number] Procedures Procedure Name Priority Date/Time Associated Diagnosis Comments POCT GLUCOSE DEVICE Routine 04/07/2024 3 :39 PM FILTER TANK OPERATOR POCT GLUCOSE DEVICE Routine 04/07/2024 3 :22 PM FILTER TANK OPERATOR POCT GLUCOSE DEVICE Routine 04/07/2024 3 :01 PM FILTER TANK OPERATOR POCT GLUCOSE DEVICE Routine 04/07/2024 2 :42 PM FILTER TANK OPERATOR RADIOLOGIC EXAMINATION OF SURGICAL SPECIMEN Schedule Routine, Read Routine (OP Routine) 04/07/2024 2:37 PM FILTER TANK OPERATOR Invasive ductal carcinoma of breast, female, right (HCC) SURGICAL PATHOLOGY Routine 04/07/2024 1: 54 PM FILTER TANK OPERATOR Invasive ductal carcinoma of breast, female, right (HCC) MN AN PROCEDURE PLACEHOLDER Routine 04/07/2024 1:17 PM FILTER TANK OPERATOR MN AN ELECTIVE SUPRAGLOTTIC AIRWAY Routine 04/07/2024 1:17 PM FILTER TANK OPERATOR LUMPECTOMY 04/07/2024 1:05 PM FILTER TANK OPERATOR RIGHT BREAST CANCER MAMMO GUIDED LOCALIZATION BREAST RIGHT Schedule Routine, Read Routine (OP Routine) 04/07/2024 12:30 PM FILTER TANK OPERATOR Invasive ductal carcinoma of breast, female, right (HCC) POCT GLUCOSE DEVICE Routine 04/07/2024 10:24 AM FILTER TANK OPERATOR EGFR Routine 03/31/2024 3:12 PM FILTER TANK OPERATOR Pre-op testing HEMOGLOBIN A1C Routine 03/31/2024 3:12 PM FILTER TANK OPERATOR Pre-op testing Diabetes mellitus due to underlying condition with complication (CMS/HCC) (HCC) CBC WITHOUT DIFFERENTIAL Routine 03/31/2024 3:12 PM FILTER TANK OPERATOR Pre-op testing BASIC METABOLIC PANEL Routine 03/31/2024 3:12 PM FILTER TANK OPERATOR Pre-op testing ECG 12-LEAD Routine 03/31/2024 3:03 PM FILTER TANK OPERATOR Pre-op testing SURGICAL PATHOLOGY Routine 03/27/2024 8: 46 AM FILTER TANK OPERATOR Malignant neoplasm of upper-outer quadrant of right breast in female, estrogen receptor negative (HCC) BREAST IMAGING US OUTSIDE REFERENCE Routine 01/20/2024 12:05 AM FILTER TANK OPERATOR BREAST IMAGING MG DIAGNOSTIC OUTSIDE REFERENCE Routine 01/20/2024 12:00 AM FILTER TANK OPERATOR POCT LIPID PANEL Routine 08/19/2021 5:01 PM CDT Mixed diabetic hyperlipidemia associated with type 2 diabetes mellitus (CMS/HCC) (HCC) from Last 3 Months or Most Recently Relevant to Health Maintenance Results * POCT glucose (04/07/2024 3:39 PM FILTER TANK OPERATOR) Glucose, POC 150 70 - 199 mg/dL Comment:Testing performed by : [facility], [address] [place] [address]., [address] Glucose comment 1 Use This Result KISHA Comment:Testing performed by : [address] [address] Blood 04/07/2024 3:39 PM FILTER TANK OPERATOR 04/07/2024 3:39 PM FILTER TANK OPERATOR Aram Oro MD LAB POCT ORDERABLES - DEVIC E Final Result Performing Organization Address [facility] Co de Phone Number [facility] [address] [facility] [place] [place] [address] * POCT glucose (04/07/2024 3:22 PM FILTER TANK OPERATOR) [facility] Glucose, POC 81 70 - 199 mg/dL Comment:Testing performed by : [address] [address] Blood 04/07/2024 3:22 PM FILTER TANK OPERATOR 04/07/2024 3:22 PM FILTER TANK OPERATOR Aram Oro MD LAB POCT ORDERABLES - DEVIC E Final Result [facility] [address] [facility] [place] [address] * (ABNORMAL) POCT glucose (04/07/2024 3:01 PM FILTER TANK OPERATOR) Glucose, POC 59(L) 70 - 199 mg/dL Comment:Testing performed by : [address] [address] Glucose comment 1 Use This Result KISHA TOWNSEND Comment:Testing performed by : [address] [address] Glucose comment 2 RN/MD Notified KISHA Comment:Testing performed by : [address] [address] Blood 04/07/2024 3:01 PM FILTER TANK OPERATOR 04/07/2024 3:01 PM FILTER TANK OPERATOR Aram Oro MD LAB POCT ORDERABLES - DEVIC E Final Result Performing Organization Address City/[facility] Co de Phone Number KISHA [facility] [facility] [place] [place] [address] * (ABNORMAL) POCT glucose (04/07/2024 2:42 PM FILTER TANK OPERATOR) [facility] Glucose, POC 62(L) 70 - 199 mg/dL Comment:Testing performed by : [facility], [address] [place] [address]., [address] Glucose comment 1 Use This Result KISHA Comment:Testing performed by : [address] [address] Glucose comment 2 RN/MD Notified KISHA Comment:Testing performed by : [address] [address] Blood 04/07/2024 2:42 PM FILTER TANK OPERATOR 04/07/2024 2:42 PM FILTER TANK OPERATOR Aram Oro MD LAB POCT ORDERABLES - DEVIC E Final Result Performing Organization Address City/[facility] Co de Phone Number DANNY[address] [employer] [place] [address] * Radiologic Examination of Surgical Specimen (04/07/2024 2:37 PM FILTER TANK OPERATOR) Anatomical Region Laterality Modality Breast N/A Mammography 04/07/2024 2:07 PM FILTER TANK OPERATOR Narrative 04/07/2024 2:12 PM FILTER TANK OPERATOR EXAM DESCRIPTION: MAMMO GUIDED LOCALIZATION BREAST RIGHT; [...] a lateral approach using a 5 cm [place] needle. Appropriate positioning of the needle and [...] by Eleazar Gavin M.D., MD: Report ID: [id number] Reading Location: [facility] Aram Oro MD IM MAMMO PROCEDURES Final Result * Surgical pathology (04/07/2024 1:54 PM FILTER TANK OPERATOR) Tissue (Breast, lumpectomy) 04/07/2024 1:54 PM FILTER TANK OPERATOR Narrative PATHOLOGY [facility] - 04/14/2024 6:26 PM FILTER TANK OPERATOR [facility] Department of Pathology [address] [place] [address] Note to Patients: This report may contain [...] : 1945 (Age: 78) Gender: F Address: [address] [place] [id number] Hospital #: [id number] Service: Surgery Location: Patient Type: [facility] OUTPATIENT Taken: 04/07/2024 Received: 04/07/2024 Accessioned: 04/07/2024 [...] Biomarker Testing performed on Previous Case: (OSC: [id number], 01/20/24) Estrogen Receptor (ER): Positive Rambo score [...] margin (closest margin). By Twila Bazzi MS, ([facility])CM Microscopic Description: The invasive carcinoma correlates [...] Lateral margin/slice 15, perpendicularly sectioned Jar: 1 [facility]04/07/2024 14:25 Twila Bazzi MS, PA (ASC Microscopic slide review and interpretation for this case was performed at , Department of Surgical Pathology, [address] [place], [place] [id number], [place] [address] [facility] # [id number] us Aram Oro MD LAB PATHOLOGY ORDERABLES Fi nal Result PATHOLOGY MB * MN AN ELECTIVE SUPRAGLOTTIC AIRWAY, MN AN PROCEDURE PLACEHOLDER (04/07/2024 1:17 PM FILTER TANK OPERATOR) Narrative Kin Lynch CRNA - 04/07/2024 1:17 PM FILTER TANK OPERATOR Kin Lynch CRNA 04/07/2024 1:18 PM Airway Patient location: OR Urgency: elective Indications for airway management: anesthesia Difficult airway: no Staff: Placed by: SIGNAL SUPERVISOR: Kin Lynch CRNA Emergent airway documentation: Risks [...] Guided Localization Breast Right (04/07/2024 12:30 PM FILTER TANK OPERATOR) Anatomical Region Laterality Modality Breast Right Mammography, Com puted Radiography 04/07/2024 2:07 PM FILTER TANK OPERATOR Narrative 04/07/2024 2:12 PM FILTER TANK OPERATOR EXAM DESCRIPTION: MAMMO GUIDED LOCALIZATION BREAST RIGHT; [...] a lateral approach using a 5 cm [place] needle. Appropriate positioning of the needle and [...] by Eleazar Gavin M.D. MD: Report ID: [id number] Reading Location: [facility] Aram Oro MD IMG MAMMO PROCEDURES Final Result * POCT glucose (04/07/2024 10:24 AM FILTER TANK OPERATOR) [facility] Glucose, POC 85 70 - 199 mg/dL Comment:Testing performed by : [facility], [address] [place] [address]., [address] Glucose comment 1 Use This Result KISHA TOWNSEND Comment:Testing performed by : [facility], [address] [place] [address]., [address] Blood 04/07/2024 10:2 4 AM FILTER TANK OPERATOR 04/07/2024 10:24 AM FILTER TANK OPERATOR Aram Oro MD LAB POCT ORDERABLES - DEVIC E Final Result KISHA [address] [facility] Department [place] [address] * eGFR (03/31/2024 3:12 PM FILTER TANK OPERATOR) [facility] eGFR >90 >=60 mL/min/1. 73 m2 Comment: [...] was last reviewed 2020. Testing performed by: [address] [address] Blood 03/31/2024 3:12 PM FILTER TANK OPERATOR 03/31/2024 3:23 PM FILTER TANK OPERATOR us Eleazar Ibrahim MD LAB BLOOD ORDERABL ES Final Result [facility] [address] [facility] Department [place] [address] * (ABNORMAL) CBC without differential (03/31/2024 3:12 PM FILTER TANK OPERATOR) Pathologist [facility] WBC 6.6 3.8 - 9.9 K/cumm Comment:Testing performed by : [address] [address] Hgb 11.0(L) 11.9 - 15.5 g/dL KISHA TOWNSEND Comment:Testing performed by : [address] [address] Hct 33.8(L) 35.6 - 45.5 % KISHA TOWNSEND Comment:Testing performed by : [address] [address] Plt 300 150 - 400 K/cumm KISHA TOWNSEND Comment:Testing performed by : [address] [address] MPV 9.9 9.1 - 12.3 fL KISHA TOWNSEND Comment:Testing performed by : [facility], [address] [place] [address]., [address] RBC 3.83(L) 3.90 - 5.20 M/cumm KISHA TOWNSEND Comment:Testing performed by : [address] [address] MCV 88.3 81.3 - 96.4 fL KISHA Comment:Testing performed by : [address] [address] MCH 28.7 27.1 - 33.3 pg KISHA Comment:Testing performed by : [address] [address] MCHC 32.5 32.3 - 35.7 g/dL KISHA Comment:Testing performed by : [address] [address] RDW CV 14.9 11.1 - 14.9 % KISHA Comment:Testing performed by : [address] [address] RDW SD 48.0 35.7 - 48.1 fL KISHA Comment:Testing performed by : [address] [address] NRBC abs 0.00 0.00 - 0.01 K/cumm KISHA Comment:Testing performed by : [address] [address] Blood 03/31/2024 3:12 PM FILTER TANK OPERATOR 03/31/2024 3:22 PM FILTER TANK OPERATOR Narrative KISHA - 03/31/2024 3:28 PM FILTER TANK OPERATOR PRE SURGICAL TESTING ONLY--04/07/2024-RIGHT BREAST NEEDLE LOCALIZATION LUMPECTOMY: -Surgeons and Role: * Aram Oro MD - Primary-@ANPROCEDURE@ us Eleazar Ibrahim MD LAB BLOOD ORDERABL ES Final Result [facility] [address] [facility] Department [place] [address] * (ABNORMAL) Hemoglobin A1c (03/31/2024 3:12 PM FILTER TANK OPERATOR) Pathologist [facility] Hgb A1C 5.9(H) 4.0 - 5.6 % Comment:Testing performed by : [address] [address] Estimated Average Glucose 123 mg/dL KISHA TOWNSEND Comment: The ADA recommends reporting an estimated Average Glucose (eAG) with all Hemoglobin A1c results using the equation derived from a study of 507 normal and diabetic adults. Minority populations were underrepresented and children were not included. (Diabetes Care 31:7956-8634, 2008). The eAG is not equivalent to a fasting glucose. Testing performed by: [address] [address] Blood 03/31/2024 3:12 PM FILTER TANK OPERATOR 03/31/2024 3:22 PM FILTER TANK OPERATOR Narrative KISHA TOWNSEND - 03/31/2024 5:28 PM FILTER TANK OPERATOR PRE SURGICAL TESTING ONLY--04/07/2024--Surgeons and Role: * Aram Oro MD - Primary-@ANPROCEDURE@ us Eleazar Ibrahim MD LAB BLOOD ORDERABL ES Final Result KISHA [address] [facility] Department [place] [address] * (ABNORMAL) Basic metabolic panel (03/31/2024 3:12 PM FILTER TANK OPERATOR) [facility] Sodium 142 135 - 145 mmol/L Comment:Testing performed by : [address] [address] Potassium, pl 3.3 3.3 - 4.9 mmol/L KISHA TOWNSEND Comment:Testing performed by : [address] [address] Chloride 104 97 - 110 mmol/L KISHA TOWNSEND Comment:Testing performed by : [address] [address] CO2 28 22 - 32 mmol/L KISHA TOWNSEND Comment:Testing performed by : [address] [address] Anion gap 10 2 - 15 mmol/L KISHA Comment:Testing performed by : [address] [address] BUN 9 6 - 25 mg/dL KISHA Comment:Testing performed by : [address] [address] Creatinine 0.48(L) 0.60 - 1.10 mg/dL KISHA Comment:Testing performed by : [address] [address] Glucose 81 70 - 199 mg/dL KISHA [...] was last revised 2022. Testing performed by: [address] [address] Calcium 9.3 8.5 - 10.3 mg/dL KISHA Comment:Testing performed by : [address] [address] Blood 03/31/2024 3:12 PM FILTER TANK OPERATOR 03/31/2024 3:23 PM FILTER TANK OPERATOR Narrative [facility] - 03/31/2024 3:53 PM FILTER TANK OPERATOR PRE SURGICAL TESTING ONLY--04/07/2024-RIGHT BREAST NEEDLE LOCALIZATION LUMPECTOMY: -Surgeons and Role: * Aram Oro MD - Primary- us Eleazar Ibrahim MD LAB BLOOD ORDERABL ES Final Result KISHA [address] [facility] Department [place] [address] * ECG 12 lead (03/31/2024 3:03 PM FILTER TANK OPERATOR) Ventricular Rate EKG/Min [address] [facility] Atrial Rate [address] [facility] MN-Interval (MSEC) [address] [facility] QRS-Interval (MSEC) [address] [facility] QT-Interval (MSEC) [address] [facility] QTc [address] [facility] P [place] [address] [facility] R [place] [address] [facility] T [place] [address] [facility] Diagnosis Sinus rhythm with 1st degree A-V block Septal infarct , age undetermined Abnormal ECG When compared with ECG of 19-OCT-1992 11:15, MN interval has increased Septal infarct is now Present Confirmed by REY YOUNG M.D. ([id number]) on 04/03/2024 8:59:[address] [facility] 03/31/2024 3:03 PM FILTER TANK OPERATOR 04/03/2024 8:59 PM FILTER TANK OPERATOR us Eleazar Ibrahim MD ECG ORDERABLES nal Result [facility] * Surgical pathology (03/27/2024 8:46 AM FILTER TANK OPERATOR) Tissue (Miscellaneous) 03/27/2024 8:46 AM FILTER TANK OPERATOR 03/27/2024 8:46 AM FILTER TANK OPERATOR Narrative [facility] PATHOLOGY LAB - 03/30/2024 6:05 PM FILTER TANK OPERATOR EPIC results best viewed via link to PDF [facility] Pathology Consult Service [facility] [address], [place] [address] Note to Patients: This report [...] SURGICAL PATHOLOGY REPORT * Consult Report * [facility] is providing an additional review of previously collected tissue. FINAL Patient Name: RULA GOLDSTEIN Address: [address] [place] [id number] Gender: F : 1945 (Age: 78) Hospital #: [id number] Patient Type: SUBHASH Location: UNKNOWN Taken: 03/27/2024 Received: 03/27/2024 Accessioned: 03/27/2024 Reported: 03/30/2024 Physician(s): Dr. Lobo Driscoll D.O. [facility] Department of Pathology [facility] [address] [address] P: [phone] F: [phone] Diagnosis: Consult material received from [place], [place] (OSC: [id number]; 01/20/2024) Breast, right, 10:00, 4.5 cm from nipple, core biopsy - Invasive ductal carcinoma - Greatest microscopic dimension = 5 mm - Histologic grade = 2/3 (tubules 3 + nuclei 2 + mitoses 1 = 6/9) by ESBR criteria - Biomarkers (slides are provided for review) - ER by IHC: positive, Rambo score 8/8 - MN by IHC: positive, Rambo score 7/8 - [...] Received for review are eight slides labeled [id number], accompanied by a corresponding pathology report. The material originates from [place], [place] . Selected slide(s) may be digitally scanned for our files, and all materials are returned to the referring institution, along with a copy of our final report. Any testing required for diagnostic purposes was performed in the Department of Pathology and Immunology at [facility] Medical [facility], [address] [place] [address] CLIA # [id number] The performance characteristics of the testing cited in this report (if any) were determined by the [facility] Department of Pathology and Immunology [facility], as part of an ongoing water quality assistant program and in compliance with federally mandated [...] and the performance characteristics determined by the [facility], [facility] Department of Pathology and Immunology. It has not been cleared or approved by the U.S. Food and Drug Administration. Any test designated as LDT was developed and its performance characteristics determined by [facility]. It has not been cleared or approved by the FDA. This test is used for clinical purposes and should not be regarded as investigational or for research. Report images and/or scanned reports, if included, only viewable in PDF version of report. Lobo Driscoll DO LAB PATHOLOGY ORDERABLES Fin al Result [facility] [address] [id number] * Breast Imaging US Outside Reference (01/20/2024 12:05 AM FILTER TANK OPERATOR) Narrative [id number] - 03/20/2024 1:35 PM FILTER TANK OPERATOR This order has been auto-finalized and does not contain a result. Provider Transcribed Order IMG MAMMO PROCEDURES Final Result [id number] * Breast Imaging Diagnostic Outside Reference (01/20/2024 12:00 AM FILTER TANK OPERATOR) Narrative VONDA - 03/20/2024 1:35 PM FILTER TANK OPERATOR This order has been auto-finalized and does [...] Most Recently Relevant to Health [place] [address] MEDICARE [id number] [facility] MEDICARE RAILRO[address] [facility] Care Teams Map Mounter Relationship Specialty Start Date End Date David Pruitt MD [address] [place] [address] [address] [place] [address] PCP - General Family Medicine 06/30/17 Aram Oro MD [address] [place] [address] [address] [place], [place] [phone] Consulting Physician Surgery 02/29/24 David Fried MD [address] [place] [address] [address] [place] [address] Radiation Oncologist Radiation Oncology 02/29/24 Chema Foreman MD [address] [facility] [address] [id number] Consulting Physician Interventional Cardiology 03/17/24
--- OUTSIDE RECORDS SUMMARY | 2024-04-20 12:50 | XMS_ITS | Patient Health Record ---
Author Organization [facility] Address [address] [place] [address] Care Team Providers Care Printed Circuit [employer] Taper Name Role Phone David Pruitt MD Primary Care Provider UnavailHerbert Zaragoza Unavailable [phone] Irineo Rivas Unavailable Unavailable Sean Brown Unavailable [phone] Hailey Sotelo Unavailable [phone] Johana Martinez Unavailable [phone] [facility], Provider Unavailable Unavailab le Allergies Allergen (clinical drug ingredient) Drug/Non Drug Allergy documented on EMR Reaction Allergy Type Onset Date Status predniSONE worsening hyperglycemia/hyp ertension Drug Allergy Active metformin metFORMIN other reaction Drug Allergy Ac tive Results Component Value Reference Range Notes Spirometry Reviewed date:11/11/2023 03:54:34 PM Interpretation:Abnormal Performing Lab: Notes/Report: Abnormal SpiroPreBronchodilator_FVC 1.93 SpiroPostBronchodilator_FEF25_75 0 SpiroPreBronchodilator_FEF25_75 0.69 SpiroPreBronchodilator_FEV1 1.11 SpiroPrecentPredictionPost_FEF25_75 0 SpiroPrecentPredictionPost_FEV1 0 SpiroPrecentPredictionPost_FEV1_OVER_FVC 0 SpiroPrecentPredictionPost_FVC 0 SpiroPrecentPredictionPre_FEF25_75 48.9 SpiroPrecentPredictionPre_FEV1 64.5 SpiroPrecentPredictionPre_FEV1_OVER_FVC 76.9 SpiroPrecentPredictionPre_FVC 82.1 SpiroPredicted_FEF25_75 1.41 SpiroPreBronchodilator_FEV1_OVER_FVC 57.59 SpiroPreBronchodilator_PEF 1.79 SpiroPostBronchodilator_FVC 0 SpiroPostBronchodilator_FEV1 0 SpiroPostBronchodilator_FEV1_OVER_FVC 0 SpiroPostBronchodilator_PEF 0 SpiroPredicted_FVC 2.35 SpiroPredicted_FEV1 1.72 SpiroPredicted_FEV1_OVER_FVC 74.87 SpiroPredicted_PEF 4.92 Reason For Referral No Information Medications Medication SIG (Take, Route, Frequency, Duration) Notes Start Date End Date Status MOUNJARO 5 mg/0.5 mL as directed subcutaneously once a week Not-Taking POTASSIUM CHLORIDE 10 mEq 1 tab(s) orally 2 times a day for 30 day(s) Not-Taking CARTIA XT 180 mg/24 hours 1 cap(s) orally once a day for 30 day(s) Not-Taking PREDNISONE 10 mg 1.5 tab(s) orally once a day Not-Taking TRELEGY ELLIPTA 200 mcg-62.5 mcg-25 mcg/inh 1 puff(s) inhaled once a day for 90 days Not-Taking FOLIC ACID 1 mg 1 tab(s) orally once a day Not-Taking PIOGLITAZONE 15 mg 1 tab(s) orally once a day Not-Taking XOLAIR 150 mg 300 mg subcutaneously every 4 weeks for 1 dose(s) Not-Taking ROSUVASTATIN 10 mg 1 tab(s) orally once a day for 30 day(s) 1 Not-Taking ALPHA-LIPOIC ACID 600 mg orally once a day Not-Taking TRIPLE ANTIBIOTIC 400 units-3.5 mg-5000 units/g 1 august applied topically bid for 7 day(s) Not-Taking XIIDRA 5% INSTILL 1 DROP INTO EACH EYE TWICE DAILY for 30 Not-Taking NASACORT ALLERGY 24HR 55 mcg/inh 2 spray(s) intranasally once a day Not-Taking TOUJEO MAX SOLOSTAR 300 units/mL INJECT 100 UNITS SUBCUTANEOUSLY ONCE DAILY DIRECTED for 30 Not-Taking Methotrexate 2.5 MG 7 TAB(S) ORALLY ONCE A WEEK *Please review and pick correct strength-formul ation from [employer] options. If intended option is not shown, discontinue and re-order from Quick Search* 1 Not-Taking HUMALOG KWIKPEN (CONCENTRATED) 200 UNITS/ML INJECT UP TO 56 UNITS SUBCUTANEOUSLY THREE TIMES DAILY WITH MEALS for 14 *Please review for potential replacement for e-prescription and drug interaction check* Not-Taking MONTELUKAST 10 mg 1 tab(s) orally once a day for 30 day(s) Not-Taking Toujeo Max SoloStar 300 UNIT/ML INJECT 100 UNITS SUBCUTANEOUSLY ONCE DAILY DIRECTED for 30 Not-Taking Rosuvastatin Calcium 10 MG 1 tab(s) orally once a day for 30 day(s) 1 Not-Taking Azelastine HCl 137 MCG/SPRAY 2 spray(s) intranasally BID, PRN for 30 day(s) Not-Taking Antioxidant Formula - as directed orally for 30 day(s) Not-Taking FLUTICASONE-SALMETEROL 113 mcg-14 mcg/inh 1 INH inhaled 2 times a day for 30 day(s) Not-Taking VENTOLIN HFA 90 mcg/inh INHALE 2 PUFFS B Y MOUTH EVERY 4 TO 6 HOURS NEEDED AND PER THE ASTHMA ACTION PLAN 17 for 17 Not-Taking XARELTO 10 mg 1 tab(s) orally once a day Not-Taking ROSUVASTATIN 10 mg 1 tab(s) orally once a day for 30 day(s) Not-Taking TOUJEO MAX SOLOSTAR 300 units/mL INJECT 80 UNITS SUBCUTANEOUSLY ONCE DAILY for 90 Not-Taking METHOTREXATE 2.5 mg as directed orally once a week for 30 Not-Taking METOPROLOL 25 mg 1 tab(s) orally once a day for 30 day(s) Not-Taking OMEPRAZOLE 20 mg 1 tab(s) orally once a day for 14 day(s) Not-Taking DULOXETINE 60 mg 1 cap(s) orally once a day for 30 day(s) Not-Taking LEVOTHYROXINE 125 mcg (0.125 mg) 1 tab(s) orally once a day for 30 day(s) Not-Taking Toujeo Max SoloStar 300 UNIT/ML INJECT 80 UNITS SUBCUTANEOUSLY ONCE DAILY for 90 Not-Taking Methotrexate 2.5 MG DIRECTED ORALLY ONCE A WEEK for 30 *Please review and pick correct strength-formul ation from [employer] options. If intended option is not shown, discontinue and re-order from Quick Search* Not-Taking Losartan Potassium 50 MG 1 tab(s) orally once a day Active Omeprazole 20 MG 1 cap(s) orally once a day Not-Taking SIT (TRADITIONAL) VARIABLE PER SCHEDULE SC PER SCHEDULE for TO BE DETERMINED *Please review for potential replacement for e-prescription and drug interaction check* Not-Taking HumaLOG 100 UNIT/ML 0 subcutaneously Not-Taking HUMALOG KWIKPEN (CONCENTRATED) 200 UNITS/ML for 28 *Please review for potential replacement for e-prescription and drug interaction check* Not-Taking DULoxetine HCl 60 MG 1 cap(s) orally once a day for 30 day(s) Not-Taking Xarelto 10 MG 1 tab(s) orally once a day Not-Taking Rosuvastatin Calcium 10 MG 1 tab(s) orally once a day for 30 day(s) Not-Taking hydroCHLOROthiazide 25 MG 1 tab(s) orally once a day Active Bystolic 10 MG 1 tab(s) orally once a day Active SYMBICORT 160 mcg-4.5 mcg/inh Inhale 2 puffs by mouth twice daily for 30 Not-Taking TRADJENTA 5 mg 1 tab(s) orally once a day Not-Taking XOLAIR 150 mg for 28 Not-Ta kandy MUPIROCIN 2% 1 august applied topically 2 times a day for 7 days Not-Taking NASACORT as directed Not-Taki ng DOXYCYCLINE monohydrate 100 mg 1 cap(s) orally 2 times a day Not-Taking Omeprazole Magnesium 20 MG 1 tab(s) orally once a day for 14 day(s) Not-Taking CYMBALTA 30 mg 1 cap(s) orally 2 times a day Not-Taking Xiidra 5 % INSTILL 1 DROP INTO EACH EYE TWICE DAILY for 30 Not-Taking VALTREX 1 g 1 tab(s) orally 2 times a day Not-Taking Levothyroxine Sodium 125 MCG 1 tab(s) orally once a day for 30 day(s) Not-Taking BYSTOLIC 10 mg for 90 Not-T aking Metoprolol Succinate ER 25 MG 1 tab(s) orally once a day for 30 day(s) Not-Taking Fluticasone-Salmeterol 113-14 MCG/ACT INHALE 1 PUFF TWICE DAILY for 30 Not-Taking Mupirocin 2 % 1 august applied topically 2 times a day for 7 days Not-Taking Nasacort Allergy 24HR DIRECTED *Please re view and pick correct strength-formul ation from [employer] options. If intended option is not shown, discontinue and re-order from Quick Search* Not-Taking Metoprolol Succinate ER 25 MG 1 tab(s) orally once a day Active Multivitamin - 1 po once a day Not-Taking Triple Antibiotic 3.5-400-5000 1 august applied topically bid for 7 day(s) Active Lantus 100 UNIT/ML 0 subcutaneously Not-Taking Symbicort 160-4.5 MCG/ACT Inhale 2 puffs by mouth twice daily for 30 Not-Taking Valtrex 1 GM 1 tab(s) orally 2 times a day Not-Taking Bystolic 10 MG for 90 Not-T aking Tradjenta 5 MG 1 tab(s) orally once a day Not-Taking Xolair 150 MG for 28 Not-Ta kandy HYDROCHLOROTHIAZIDE 25 mg 1 tab(s) orally once a day Active BYSTOLIC 10 mg 1 tab(s) orally once a day Active Alpha-Lipoic Acid 600 MG orally once a day Active Cymbalta 30 MG 1 cap(s) orally 2 times a day Active Hibiclens 4% 1 AUGUST APPLIED TOPICALLY ONCE for 1 DAY(S) *Please review and pick correct strength-formul ation from [employer] options. If intended option is not shown, discontinue and re-order from Quick Search* Not-Taking DULoxetine HCl 60 MG 1 cap(s) orally once a day Active Nystatin 416150 UNIT/ML 5 mL orally, swi sh & swallow tid Not-Taking Nystatin 823808 UNIT/ML 4 mL orally 4 ti mes a day Active Folic Acid 1 MG 1 tab(s) orally once a day Not-Taking Levothyroxine Sodium 150 MCG 1 tab(s) orally once a day Active Pioglitazone HCl 15 MG 1 tab(s) orally once a day Not-Taking Cetirizine HCl 10 MG 1 tab(s) orally once a day Active [id number] - 1 AUGUST APPLIED TOPICALLY 2 TIMES A DAY for 30 DAY(S) *Please review for potential replacement for e-prescription and drug interaction check* Not-Taking Cymbalta 30 MG 1 cap(s) orally 2 times a day Not-Taking amLODIPine Besylate 5 MG 1 tab(s) orally once a day Active Aspirin 81 MG 1 tab(s) orally once a day Not-Taking Ventolin HFA 108 (90 Base) MCG/ACT INHALE 2 PUFFS BY MOUTH EVERY 4 TO 6 HOURS NEEDED AND PER THE ASTHMA ACTION PLAN 17 for 17 Not-Taking FLUoxetine HCl 20 MG 1 cap(s) orally once a day Active Atorvastatin Calcium 40 MG 1 tab(s) orally once a day Not-Taking Fasenra 30 MG/ML 30 MG SUBCUTANEOUSLY EVERY 8 WEEKS *Please review and pick correct strength-formul ation from [employer] options. If intended option is not shown, discontinue and re-order from Quick Search* Active VANICREAM MOISTURIZING CREAM N/A NECESSARY APPLY TO EXTERNAL SURFACES OFTEN NEEDED TO FACE, HANDS, FEET OR BODY FOR DAILY USE BY THE ENTIRE FAMILY for 30 DAY(S) *Please review for potential replacement for e-prescription and drug interaction check* Not-Taking Doxycycline Monohydrate 100 MG 1 cap(s) orally 2 times a day Not-Taking Spiriva HandiHaler 18 MCG 1 cap(s) inhaled once a day Not-Taking Nasacort Allergy 24HR 55 MCG/ACT 2 spray(s) intranasally once a day Not-Taking Xolair 150 MG 300 mg subcutaneously every 4 weeks for 1 dose(s) Not-Taking predniSONE 5 mg 10 tab(s) orally once a day Not-Taking amLODIPine Besylate 5 MG 1 tab(s) orally once a day Not-Taking Trelegy Ellipta 200 MCG-62.5 MCG-25 MCG/INH 1 PUFF(S) INHALED ONCE A DAY for 90 DAYS *Please review and pick correct strength-formul ation from [employer] options. If intended option is not shown, discontinue and re-order from Quick Search* Not-Taking hydroCHLOROthiazide 25 MG for 90 Not-Taking LOSARTAN 50 mg 1 tab(s) orally once a day Active CETIRIZINE HYDROCHLORIDE 10 mg 1 tab(s) orally once a day Active AMLODIPINE 5 mg 1 tab(s) orally once a day Active MONTELUKAST 10 mg 1 tab(s) orally once a day for 30 days Active EPIPEN 2-MAKENZIE 0.3 mg 0.3 mg intramuscularly once for 30 day(s) Active AEROCHAMBER MDI SPACER - MOUTHPIECE (ADULT) N/A As directed PO Per asthma action plan Active PROAIR HFA 90 mcg/inh 2 puff(s) inhaled Q4-6 hours, PRN and per the asthma action plan Active PREDNISONE 5 mg 10 tab(s) orally once a day Active FASENRA 30 mg/mL 30 mg subcutaneously every 8 weeks Active FLUTICASONE-SALMETEROL 113 mcg-14 mcg/inh 1 INH inhaled 2 times a day for 30 days Active Cartia XT 180 MG 1 cap(s) orally once a day for 30 day(s) Active ONE DAILY MULTI-ESSENTIAL MULTIPLE VITAMINS 1 TAB(S) ORALLY ONCE A DAY *Please review for potential replacement for e-prescription and drug interaction check* Not-Taking Mounjaro 5 MG/0.5 ML DIRECTED SUBCUTANEOUSLY ONCE A WEEK *Please review and pick correct strength-formul ation from [employer] options. If intended option is not shown, discontinue and re-order from Quick Search* Active Claritin 10 MG 1 tab(s) orally once a day Not-Taking Fluticasone-Salmeterol 113 MCG-14 MCG/INH 1 INH INHALED 2 TIMES A DAY for 30 DAY(S) *Please review and pick correct strength-formul ation from [employer] options. If intended option is not shown, discontinue and re-order from Quick Search* Active EPINEPHRINE TWO-PACK 0.3 MG 0.3 MG INTRAMUSCULARLY ONCE for 1 DOSE(S) *Please review for potential replacement for e-prescription and drug interaction check* Not-Taking Toujeo Max SoloStar 300 UNIT/ML INJECT 100 UNITS SUBCUTANEOUSLY DAILY PER INSULIN PROTOCOL for 30 Active Bactrim DS 800-160 MG 1 tab(s) orally 2 times a day for 10 day(s) Not-Taking Losartan Potassium 50 MG 1 tab(s) orally once a day Active EpiPen 2-Makenzie 0.3 MG/0.3ML 0.3 mg intramuscularly once for 30 day(s) Not-Taking Potassium Chloride ER 10 MEQ 1 tab(s) orally 2 times a day for 30 day(s) Active Caltrate 600+D Plus Minerals 600-800 MG-UNIT 1 tab(s) orally 2 times a day Not-Taking Singulair 10 MG 1 tab(s) orally once a day Active traMADol HCl 50 MG 1 tab(s) orally every 4 hours Not-Taking Caltrate 600+D Plus Minerals 600-800 MG-UNIT 1 tab(s) orally 2 times a day Not-Taking DULoxetine HCl 60 MG 1 cap(s) orally once a day Not-Taking Aspirin 81 MG 1 tab(s) chewed once a day Not-Taking Omeprazole 20 MG 1 cap(s) orally once a day Not-Taking Ipratropium Conroy 0.06 % 1 spray Nasally Four times a day for 30 days As needed Active FLUoxetine HCl 20 MG 1 cap(s) orally once a day Not-Taking PREDNISONE 10 mg 1.5 tab(s) orally once a day Active SPIRIVA 18 mcg 1 puff inhaled Qday Not-Taking TOUJEO MAX SOLOSTAR 300 units/mL INJECT 100 UNITS SUBCUTANEOUSLY DAILY PER INSULIN PROTOCOL for 30 Not-Taking AMLODIPINE 5 mg 1 tab(s) orally once a day Not-Taking LOSARTAN 50 mg 1 tab(s) orally once a day Not-Taking METOPROLOL SUCCINATE ER 25 mg 1 tab(s) orally once a day Not-Taking LANTUS 100 units/mL 0 subcutaneously Not-Taking ATORVASTATIN 40 mg 1 tab(s) orally once a day Not-Taking Levothyroxine Sodium 150 MCG 1 tab(s) orally once a day Not-Taking METOPROLOL SUCCINATE ER 25 mg 1 tab(s) orally once a day Not-Taking PROAIR HFA 90 MCG/INH 2 PUFFS INHALED Q4-6 HOURS, PRN AND PER THE ASTHMA ACTION PLAN *Please review for potential replacement for e-prescription and drug interaction check* Not-Taking NYSTATIN 779731 units/mL 5 mL orally, sw jennifre & swallow tid Not-Taking HYDROCHLOROTHIAZIDE 25 mg for 90 Not-Taking Spiriva HandiHaler 18 MCG 1 puff inhaled Qday Not-Taki ng predniSONE 10 mg 1.5 tab(s) orally once a day Not-Taking Metoprolol Succinate ER 25 MG 1 tab(s) orally once a day Not-Taking HumaLOG KwikPen 100 UNIT/ML for 18 Not-Taking predniSONE 20 MG 2 tab(s) orally once a day for 5 day(s) 0 Not-Taking MULTIVITAMIN 1 po once a day N ot-Taking Lantus 100 UNIT/ML 0 subcutaneously Not-Taking FLUOXETINE 20 mg 1 cap(s) orally once a day Not-Taking BACTRIM DS 800 mg-160 mg 1 tab(s) orally 2 times a day for 10 day(s) Not-Taking AIRDUO RESPICLICK 232 MCG-14 MCG/INH 1 INH INHALED 2 TIMES A DAY for 30 DAY(S) *Please review for potential replacement for e-prescription and drug interaction check* Not-Taking MULTIVITAMIN 1 po once a day N ot-Taking CALTRATE 600 + D 600 mg-800 intl units 1 tab(s) orally 2 times a day Not-Taking DULOXETINE 60 mg 1 cap(s) orally once a day Not-Taking ASPIRIN 81 mg 1 tab(s) chewed once a day Not-Taking OMEPRAZOLE 20 mg 1 cap(s) orally once a day Not-Taking Montelukast Sodium 10 MG 1 tab(s) orally once a day for 30 day(s) Not-Taking HUMALOG KWIKPEN 100 units/mL for 18 Not-Taking Fluticasone-Salmeterol 113 MCG-14 MCG/INH 1 INH INHALED 2 TIMES A DAY for 30 DAY(S) *Please review and pick correct strength-formul ation from [employer] options. If intended option is not shown, discontinue and re-order from Quick Search* Not-Taking PREDNISONE 20 mg 2 tab(s) orally once a day for 5 day(s) 0 Not-Taking Omeprazole 40 MG 1 cap(s) orally once a day for 30 day(s) Not-Taking FLUOXETINE 20 mg 1 cap(s) orally once a day Not-Taking LEVOTHYROXINE 150 mcg (0.15 mg) 1 tab(s) orally once a day Not-Taking Atorvastatin Calcium 40 MG 1 tab(s) orally once a day Not-Taking SPIRIVA 18 mcg 1 cap(s) inhaled once a day Not-Taking Cetirizine HCl 10 MG 1 tab(s) orally once a day Not-Taking HIBICLENS 4% 1 august applied topically once for 1 day(s) Not-Taking Spiriva Respimat 1.25 MCG/ACT 2 puff(s) inhaled once a day Not-Taking Vitamin D3 50 MCG (2000 UT) as directed orally once a day for 30 day(s) Not-Taking CLARITIN 24 HOUR ALLERGY 10 mg 1 tab(s) orally once a day Not-Taking OMEPRAZOLE 20 mg 1 cap(s) orally once a day Not-Taking NYSTATIN 732315 units/mL 4 mL orally 4 t imes a day Not-Taking ASPIRIN 81 mg 1 tab(s) orally once a day Not-Taking HUMALOG 100 units/mL 0 subcutaneously Not-Taking LANTUS 100 units/mL 0 subcutaneously Not-Taking ANTIOXIDANT FORMULA Antioxidant Multiple Vitamins and Minerals as directed orally for 30 day(s) Not-Taking PREDNISONE 5 mg 10 tab(s) orally once a day Not-Taking METHOTREXATE 2.5 mg 7 tab(s) orally once a week 1 Not-Taking AZELASTINE HYDROCHLORIDE NASAL 137 mcg/inh 2 spray(s) intranasally BID, PRN for 30 day(s) Not-Taking VITAMIN D3 2000 intl units as directed orally once a day for 30 day(s) Not-Taking CALTRATE 600 + D 600 mg-800 intl units 1 tab(s) orally 2 times a day Not-Taking ATORVASTATIN 40 mg 1 tab(s) orally once a day Not-Taking OMEPRAZOLE 40 mg 1 cap(s) orally once a day for 30 day(s) Not-Taking SPIRIVA RESPIMAT 1.25 mcg/inh 2 puff(s) inhaled once a day Not-Taking DULOXETINE 60 mg 1 cap(s) orally once a day Not-Taking TRAMADOL 50 mg 1 tab(s) orally every 4 hours Not-Taking LEVOTHYROXINE 150 mcg (0.15 mg) 1 tab(s) orally once a day Not-Taking CETIRIZINE 10 mg 1 tab(s) orally once a day Not-Taking CYMBALTA 30 mg 1 cap(s) orally 2 times a day Not-Taking SINGULAIR 10 mg 1 tab(s) orally once a day Not-Taking Immunizations Vaccine Route Administration Date Status Comme nts Covid 19 ([employer]) Unknown 05/03/2020 Adminis tered Flucelvax Unknown 02/01/2019 Administered Flucelvax Unknown 04/01/2019 Administered Fluzone Quadrivalent Unknown 01/12/2017 Administered Fluzone Quadrivalent Unknown 01/09/2020 Administered NOC Flucelevax Quadrivalent Unknown 12/04/2019 Refused NOC Flucelevax Quadrivalent Unknown 12/28/2019 Refused NOC Fluzone Quadrivalent Unknown 05/26/2018 Refused NOC Pneumovax 23 Unknown 05/06/2017 Refused Shingrix Unknown 03/09/2019 Administered Social History Tobacco Use: Social History Observation Description Date Details (start date - stop date) Former Smoker NA - NA Tobacco Control (Standard) Question Answer Notes Tobacco use: Former smoker Problems Problem Type SNOMED Code ICD Code Onset Dates Problem Status W/U Status Risk Notes Problem Chronic allergic conjunctivitis (90449114) Other chronic allergic conjunctivitis (H10.45) Active confirmed Problem Essential hypertension (95217995) Essential (primary) hypertension (I10) Active confirmed Problem Allergic rhinitis caused by pollen (disorder) (54582513) Allergic rhinitis due to pollen (J30.1) Active confirmed Problem Allergic rhinitis (61141097) Other allergic rhinitis (J30.89) Active confirmed Problem Chronic rhinitis (30860532) Chronic rhinitis (J31.0) Active confirmed Problem Chronic obstructive pulmonary disease (67148970) Chronic obstructive pulmonary disease, unspecified (J44.9) Active confirmed Problem Mild intermittent asthma (929558805) Mild intermittent asthma, uncomplicated (J45.20) Active confirmed Problem Uncomplicated mild persistent asthma (795954005) Mild persistent asthma, uncomplicated (J45.30) Active confirmed Problem Uncomplicated moderate persistent asthma (755136922) Moderate persistent asthma, uncomplicated (J45.40) Active confirmed Problem Uncomplicated severe persistent asthma (457387757) Severe persistent asthma, uncomplicated (J45.50) Active confirmed Problem Adverse effect o f glucocorticoids and synthetic analogues, subsequent encounter (T38.0X5D) Active confirmed Problem Allergic rhinitis caused by animal hair and dander (048387447549395) Allergic rhinitis due to animal (cat) (dog) hair and dander (J30.81) Active confirmed Problem Gastro-esophageal reflux disease without esophagitis (485667976) Gastro-esophageal reflux disease without esophagitis (K21.9) Active confirmed Problem Disorder of vocal cord (65335484) 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 [address] [address] 05/27/2023 Sean Brown Severe persistent asthma, uncomplicated J45.50 [facility] [address] [place] [phone] 07/22/2023 Sean Brown Severe persistent asthma, uncomplicated J45.50 [facility] [address] [place] [phone] 09/16/2023 Hailey Sotelo Severe persistent asthma, uncomplicated J45.50 ; Eosinophilic asthma J82.83 ; Chronic obstructive pulmonary disease, unspecified J44.9 ; Hypoxemia R09.02 ; Allergic rhinitis due to pollen J30.1 ; Other allergic rhinitis J30.89 ; Other chronic allergic conjunctivitis H10.45 and Essential (primary) hypertension I10 [facility] [address] [place] [phone] 11/11/2023 Hailey Young Severe persistent asthma, uncomplicated J45.50 ; Eosinophilic asthma J82.83 ; Chronic obstructive pulmonary disease, unspecified J44.9 ; Hypoxemia R09.02 ; Allergic rhinitis due to pollen J30.1 ; Other allergic rhinitis J30.89 ; Other chronic allergic conjunctivitis H10.45 and Essential (primary) hypertension I10 [facility] [address] [place] [phone] 01/13/2024 Johana Martinez Severe persistent asthma, uncomplicated J45.50 ; Eosinophilic asthma J82.83 ; Chronic obstructive pulmonary disease, unspecified J44.9 ; Hypoxemia R09.02 ; Allergic rhinitis due to pollen J30.1 ; Other allergic rhinitis J30.89 ; Other chronic allergic conjunctivitis H10.45 and Essential (primary) hypertension I10 [facility] [address] [place] [phone] 03/30/2024 Hailey Young Severe persistent asthma, uncomplicated J45.50 ; Eosinophilic asthma J82.83 ; Chronic obstructive pulmonary disease, unspecified J44.9 ; Hypoxemia R09.02 ; Allergic rhinitis due to pollen J30.1 ; Other allergic rhinitis J30.89 ; Other chronic allergic conjunctivitis H10.45 and Essential (primary) hypertension I10 [address] [phone] 08/02/2023 Hailey Sotelo Severe persistent asthma, uncomplicated J45.50 [facility] [address] [facility] [address] [place] [address] 03/23/2024 Herbert Hancock Assessments Encounter Date Diagnosis (ICD Code) Assessment Notes Treatment Notes Treatment Clinical Notes Section Notes 05/27/2023 Severe persistent asthma, uncomplicated (ICD-10 - J45.50) 07/22/2023 Severe persistent asthma, uncomplicated (ICD-10 - J45.50) 08/02/2023 Severe persistent asthma, uncomplicated (ICD-10 - J45.50) 08/14/2023 Severe persistent asthma, uncomplicated (ICD-10 - J45.50) 09/16/2023 Severe persistent asthma, uncomplicated (ICD-10 - J45.50) [...] her wear 3 L at night. - Due to insurance switched to AirDuo last visit, continues to tolerate. - Continued Fasenra today - we have [...] for Fasenra. - Lungs clear on exam. 09/16/2023 Eosinophilic asthma (ICD-10 - J82.83) The patient has a diagnosis of asthma with an eosinophilic phenotype. Since starting FASENRA the patient has had decreased healthcare utilization, improvement in asthma symptoms and decreased utilization of rescue (DILMA) medications. The patient has also been compliant on FASENRA therapy 11/11/2023 Severe persistent asthma, uncomplicated (ICD-10 - J45.50) [...] for Fasenra. - Lungs clear on exam. 11/11/2023 Eosinophilic asthma (ICD-10 - J82.83) The patient has a diagnosis of asthma with an eosinophilic phenotype. Since starting FASENRA the patient has had decreased healthcare utilization, improvement in asthma symptoms and decreased utilization of rescue (DILMA) medications. The patient has also been compliant on FASENRA therapy 01/13/2024 Severe persistent asthma, uncomplicated (ICD-10 - J45.50) [...] for Fasenra. - Lungs clear on exam. 01/13/2024 Eosinophilic asthma (ICD-10 - J82.83) The patient has a diagnosis of asthma with an eosinophilic phenotype. Since starting FASENRA the patient has had decreased healthcare utilization, improvement in asthma symptoms and decreased utilization of rescue (DILMA) medications. The patient has also been compliant on FASENRA therapy 03/30/2024 Severe persistent asthma, uncomplicated (ICD-10 - J45.50) Kelli has a history of asthma/COPD overlap with subjective inhalant triggers and previous labwork/skin testing suggestive of atopic disease. - Kelli continues to feel well. Her weight loss has being going well. Feels she can breathe better. Pulmonary gave the OK to hold supplemental oxygen and Spiriva -Needs to continue Advair generic. - Spirometry last visit with mild obstruction. Previously discusssed a changed to Trelegy but she clinically feesl stable on her current regimen. Again, discussed change today but she is not interested at this time as she feels she is doing well. Will recheck at f/u -Recommend annual flu shot - Continued Fasenra today - we have discussed possible switch to different anti IL-5 given but will reserve this option for future since symptoms are stable - states she feels great on Fasenra currently. That said she previously reported wheezing in the past at 6 weeks after Fasenra administration. This has not happened recently. If issues still persist then consider switch to Tezspire. - Follow-up in 8 weeks for Fasenra. - Lungs clear on exam. 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 Since starting FASENRA the patient has had decreased healthcare utilization, improvement in asthma symptoms and decreased utilization of rescue (DILMA) medications. The patient has also been compliant on FASENRA therapy 03/30/2024 Chronic obstructive pulmonary disease, unspecified (ICD-10 - J44.9) Continue per pulmonary, Dr. Rivas 01/13/2024 Chronic obstructive pulmonary disease, unspecified (ICD-10 - J44.9) Continue per pulmonary, Dr. Rivas 11/11/2023 Chronic obstructive pulmonary disease, unspecified (ICD-10 - J44.9) Continue per pulmonary, Dr. Rivas 09/16/2023 Chronic obstructive pulmonary disease, unspecified (ICD-10 - J44.9) Continue per pulmonary, Dr. Rivas 09/16/2023 Hypoxemia (ICD-10 - R09.02) Off day-time oxygen per pulmonary, today reports she wears 3 L at night per their instructions. 11/11/2023 Hypoxemia (ICD-10 - R09.02) Off day-time oxygen per pulmonary, today reports she wears 3 L at night per their instructions. 01/13/2024 Hypoxemia (ICD-10 - R09.02) Off day-time oxygen per pulmonary, today reports she wears 3 L at night per their instructions. 03/30/2024 Hypoxemia (ICD-10 - R09.02) Off day-time oxygen per pulmonary, saturation stable today 01/13/2024 Allergic rhinitis due to pollen (ICD-10 - [...] inability to pump nasal spray with hands. 03/30/2024 Allergic rhinitis due to pollen (ICD-10 - [...] stable. Reports taking Xyzal daily with benefit. -likely has AARON, declined nasal spray trial. Has issues with dexterity - Will continue to monitor symptoms off. 11/11/2023 Allergic rhinitis due to pollen (ICD-10 - [...] - Will continue to monitor symptoms off 09/16/2023 Allergic rhinitis due to pollen (ICD-10 - [...] - Will continue to monitor symptoms off 09/16/2023 Other allergic rhinitis (ICD-10 - J30.89) Follow allergen avoidance, meds 11/11/2023 Other allergic rhinitis (ICD-10 - J30.89) Follow allergen avoidance, meds 03/30/2024 Other allergic rhinitis (ICD-10 - J30.89) Follow allergen avoidance, meds 01/13/2024 Other allergic rhinitis (ICD-10 - J30.89) Follow allergen avoidance, meds 03/30/2024 Other chronic allergic conjunctivitis (ICD-10 - H10.45) Given ocular signs and symptoms I encouraged allergy avoidance measures and meds as above. If symptoms persist, consider adding additional medications including intraocular antihistamine/mast cell stabilizer, PRN 11/11/2023 Other chronic allergic conjunctivitis (ICD-10 - H10.45) Given ocular signs and symptoms I encouraged allergy avoidance measures and meds as above. If symptoms persist, consider adding additional medications including intraocular antihistamine/mast cell stabilizer, PRN 01/13/2024 Other chronic allergic conjunctivitis (ICD-10 - H10.45) Given ocular signs and symptoms I encouraged allergy avoidance measures and meds as above. If symptoms persist, consider adding additional medications including intraocular antihistamine/mast cell stabilizer, PRN 09/16/2023 Other chronic allergic conjunctivitis (ICD-10 - H10.45) Given ocular signs and symptoms I encouraged allergy avoidance measures and meds as above. If symptoms persist, consider adding additional medications including intraocular antihistamine/mast cell stabilizer, PRN 09/16/2023 Essential (primary) hypertension (ICD-10 - I10) BP normal today without symptoms of urgency or emergency. Continue serial checks and follow-up with PCP 01/13/2024 Essential (primary) hypertension (ICD-10 - I10) BP normal today without symptoms of urgency or emergency. Continue serial checks and follow-up with PCP 11/11/2023 Essential (primary) hypertension (ICD-10 - I10) BP normal today without symptoms of urgency or emergency. Continue serial checks and follow-up with PCP 03/30/2024 Essential (primary) hypertension (ICD-10 - I10) BP normal today without symptoms of urgency or emergency. Continue serial checks and follow-up with PCP -feels her elevation is due to stress over upcoming lumpectomy 01/06/2024 Other 03/23/2024 Other 05/27/2023 Other 07/22/2023 Other 09/16/2023 Other 11/11/2023 Other 01/13/2024 Other 03/30/2024 Other Plan Of Treatment Next Appt Details Provider Name:Hailey HarrisPili Deepak , 05/25/2024 03:30:00 PM, [address] [facility], [address], [place], [address], Insurance Providers Payer Name Payer Address Payer Phone Subscriber Number Group Number Insured Name Patient Relationship to Insured Coverage Start Date Coverage End Date [facility] [address] [address] [place] [address] [id number] Rula Goldstein Self - patient is the insured [facility] [address] [place] [phone] [id number] Rula Goldstein Self - patient is the insured Medical (General) History Medical History History ICD Code COPD/asthma overlap IDDM Hypothyroidism Hypertension GERD Depression Diverticulitis (with diverticulosis) NOS Herpesviral infection, unspecified Left eye infection - June 2017, July 2017 Left facial cyst, s/p I&D 08/31/17 (Dr. Mc Issac-plastics) Atherosclerotic heart diseas e of [place] coronary artery without angina pectoris Obstructive sleep apnea (adult) (pediatr ic) G47.33 Allergic rhinitis due to pollen J30.1 Other allergic rhinitis J30.89 Other chronic allergic conjunctivitis H1 0.45 Surgical History Surgery Date(Month/Year) Colonoscopy Nov 2016 Cyst removal (face) 08/2017 Hospitalization History Reason Date(Month/Year) Heart issues/wheezing 12/2020
--- OUTSIDE RECORDS SUMMARY | 2024-04-20 12:50 | XMS_ITS | Clinical Summary ---
Author Organization [facility] Address [address] [place] [address] Care Team Providers Care Meat Market Manager Name Role Phone Unavailable Primary Care Provider Unavailabl e Source Comments [facility],non-owned Affiliates and Associated Physician Practices is amultiple site organization consisting of ambulatory clinics and [place] sitesin [place]. This disclosure is being madepursuant to the Care Everywhere program and may not contain all information available regarding this patient. Last updated 17.[facility] Edventory Social History Tobacco Use Types Packs/Day Years [...]
--- OUTSIDE RECORDS SUMMARY | 2024-04-20 12:50 | XMS_ITS | Patient Health Summary ---
Author Organization [facility] Address [address] [place] [address] Care Team Providers Care Adjusto Writer Operator Name Role Phone Unavailable Primary Care Provider Unavailabl e Note from Formerly named [facility],non-owned Affiliates and Associated Physician Practices is amultiple site organization consisting of ambulatory clinics and hospital sitesin [place], [place], [place] and [place]. This disclosure is being madepursuant to the Care Everywhere program and may not contain all information available regarding this patient. Last updated 17.[facility] Social History Tobacco Use Types Packs/Day Years Used Date Smoking Tobacco: Never Assessed Sex and Gender Information Value Date Recorded Sex Assigned at Not on file Gender Identity Not on file Sexual Orientation Not on file
--- OUTSIDE RECORDS SUMMARY | 2024-04-20 12:50 | XMS_ITS ---
Author Organization [facility] Address [address] [place] [address] Care Team Providers Care Forming Operator Name Role Phone David Pruitt MD Primary Care Provider UnavailHerbert Zaragoza Unavailable [phone] Irineo Rivas Unavailable Unavailable Hailey Sotelo Unavailable [phone] REASON FOR VISIT ACOS Continues on Spiriva 1.25 RM and AirDuo, switched from Symbicort due to insurance. On q 8 weekFasenra injections. Passed WT, no longer has use 02 during the day, wears 3L at night per Pulmonology, ARC, holding SCIT. MM 12/2017, Has rheumatoid and osetoarthritis, on MTX and prednisone. Followed by wild life photographer, On Nutrisystem and weight loss injection - doing well with weight loss. Medications Medication SIG (Take, Route, Frequency, Duration) Notes Start Date End Date Status Ipratropium Rochelle 0.06 % 1 spray Nasally Four times a day for 30 days As needed Active FLUTICASONE-SALMETEROL 113 mcg-14 mcg/inh 1 INH inhaled 2 times a day for 30 days Active SPIRIVA 18 mcg 1 cap(s) inhaled once a day Active FASENRA 30 mg/mL 30 mg subcutaneously every 8 weeks Active AEROCHAMBER MDI SPACER - MOUTHPIECE (ADULT) N/A As directed PO Per asthma action plan Active AMLODIPINE 5 mg 1 tab(s) orally once a day Active EPIPEN 2-MAKENZIE 0.3 mg 0.3 mg intramuscularly once for 30 day(s) Active CETIRIZINE HYDROCHLORIDE 10 mg 1 tab(s) orally once a day Active MONTELUKAST 10 mg 1 tab(s) orally once a day for 30 days Active PROAIR HFA 90 mcg/inh 2 puff(s) inhaled Q4-6 hours, PRN and per the asthma action plan Active LOSARTAN 50 mg 1 tab(s) orally once a day Active HYDROCHLOROTHIAZIDE 25 mg 1 tab(s) orally once a day Active BYSTOLIC 10 mg 1 tab(s) orally once a day Active Symbicort 160-4.5 MCG/ACT Inhale 2 puffs by mouth twice daily for 30 Not-Taking Mupirocin 2 % 1 august applied topically 2 times a day for 7 days Not-Taking Bystolic 10 MG for 90 Not-T aking Xolair 150 MG for 28 Not-Ta kandy Valtrex 1 GM 1 tab(s) orally 2 times a day Not-Taking Nasacort Allergy 24HR DIRECTED *Please re view and pick correct strength-formul ation from Jobool options. If intended option is not shown, discontinue and re-order from Quick Search* Not-Taking Tradjenta 5 MG 1 tab(s) orally once a day Not-Taking Cymbalta 30 MG 1 cap(s) orally 2 times a day Not-Taking Ventolin HFA 108 (90 Base) MCG/ACT INHALE 2 PUFFS BY MOUTH EVERY 4 TO 6 HOURS NEEDED AND PER THE ASTHMA ACTION PLAN 17 for 17 Not-Taking Doxycycline Monohydrate 100 MG 1 cap(s) orally 2 times a day Not-Taking SIT (TRADITIONAL) VARIABLE PER SCHEDULE SC PER SCHEDULE for TO BE DETERMINED *Please review for potential replacement for e-prescription and drug interaction check* Not-Taking HUMALOG KWIKPEN (CONCENTRATED) 200 UNITS/ML for 28 *Please review for potential replacement for e-prescription and drug interaction check* Not-Taking Toujeo Max SoloStar 300 UNIT/ML INJECT 80 UNITS SUBCUTANEOUSLY ONCE DAILY for 90 Not-Taking Rosuvastatin Calcium 10 MG 1 tab(s) orally once a day for 30 day(s) Not-Taking DULoxetine HCl 60 MG 1 cap(s) orally once a day for 30 day(s) Not-Taking Methotrexate 2.5 MG DIRECTED ORALLY ONCE A WEEK for 30 *Please review and pick correct strength-formul ation from Jobool options. If intended option is not shown, discontinue and re-order from Quick Search* Not-Taking Xarelto 10 MG 1 tab(s) orally once a day Not-Taking Omeprazole Magnesium 20 MG 1 tab(s) orally once a day for 14 day(s) Not-Taking Xiidra 5 % INSTILL 1 DROP INTO EACH EYE TWICE DAILY for 30 Not-Taking Levothyroxine Sodium 125 MCG 1 tab(s) orally once a day for 30 day(s) Not-Taking Metoprolol Succinate ER 25 MG 1 tab(s) orally once a day for 30 day(s) Not-Taking Toujeo Max SoloStar 300 UNIT/ML INJECT 100 UNITS SUBCUTANEOUSLY ONCE DAILY DIRECTED for 30 Not-Taking Rosuvastatin Calcium 10 MG 1 tab(s) orally once a day for 30 day(s) 1 Not-Taking Methotrexate 2.5 MG 7 TAB(S) ORALLY ONCE A WEEK *Please review and pick correct strength-formul ation from Jobool options. If intended option is not shown, discontinue and re-order from Quick Search* 1 Not-Taking Antioxidant Formula - as directed orally for 30 day(s) Not-Taking HUMALOG KWIKPEN (CONCENTRATED) 200 UNITS/ML INJECT UP TO 56 UNITS SUBCUTANEOUSLY THREE TIMES DAILY WITH MEALS for 14 *Please review for potential replacement for e-prescription and drug interaction check* Not-Taking Azelastine HCl 137 MCG/SPRAY 2 spray(s) intranasally BID, PRN for 30 day(s) Not-Taking Atorvastatin Calcium 40 MG 1 tab(s) orally once a day Not-Taking Cetirizine HCl 10 MG 1 tab(s) orally once a day Not-Taking Spiriva Respimat 1.25 MCG/ACT 2 puff(s) inhaled once a day Not-Taking Vitamin D3 50 MCG (2000 UT) as directed orally once a day for 30 day(s) Not-Taking Omeprazole 40 MG 1 cap(s) orally once a day for 30 day(s) Not-Taking Omeprazole 20 MG 1 [...] Qday Not-Taki ng HumaLOG KwikPen 100 UNIT/ML for 18 Not-Taking predniSONE 20 MG 2 tab(s) orally once a day for 5 day(s) 0 Not-Taking Levothyroxine Sodium 150 MCG 1 tab(s) orally once a day Not-Taking PROAIR HFA 90 MCG/INH 2 PUFFS INHALED Q4-6 HOURS, PRN AND PER THE ASTHMA ACTION PLAN *Please review for potential replacement for e-prescription and drug interaction check* Not-Taking hydroCHLOROthiazide 25 MG for 90 Not-Taking Nasacort Allergy 24HR 55 MCG/ACT 2 spray(s) intranasally once a day Not-Taking Metoprolol Succinate ER 25 MG 1 tab(s) orally once a day Not-Taking amLODIPine Besylate 5 MG 1 tab(s) orally once a day Not-Taking Xolair 150 MG 300 mg subcutaneously every 4 weeks for 1 dose(s) Not-Taking Caltrate 600+D Plus Minerals [...] times a day for 10 day(s) Not-Taking Lantus 100 UNIT/ML 0 subcutaneously Not-Taking Fluticasone-Salmeterol 113-14 MCG/ACT INHALE 1 PUFF TWICE DAILY for 30 Not-Taking EpiPen 2-Makenzie 0.3 MG/0.3ML 0.3 mg intramuscularly once for 30 day(s) Not-Taking Multivitamin - 1 po once a day Not-Taking Atorvastatin Calcium 40 MG 1 tab(s) orally once a day Not-Taking Hibiclens 4% 1 AUGUST APPLIED TOPICALLY ONCE for 1 DAY(S) *Please review and pick correct strength-formul ation from Kitean options. If intended option is not shown, discontinue and re-order from Quick Search* Not-Taking Nystatin 406191 UNIT/ML 5 mL orally, swi sh & [...] for e-prescription and drug interaction check* Not-Taking [id number] - 1 AUGUST APPLIED TOPICALLY 2 TIMES [...] as directed Not-Taki ng BYSTOLIC 10 mg for 90 Not-T aking DOXYCYCLINE monohydrate 100 mg 1 cap(s) orally 2 times a day Not-Taking VALTREX 1 g 1 tab(s) orally 2 times a day Not-Taking CYMBALTA 30 mg 1 cap(s) orally 2 times a day Not-Taking MONTELUKAST 10 mg 1 tab(s) orally once a day for 30 day(s) Not-Taking FLUTICASONE-SALMETEROL 113 mcg-14 [...] orally once a week for 30 Not-Taking LEVOTHYROXINE 125 mcg (0.125 mg) 1 tab(s) orally once a day for 30 day(s) Not-Taking METOPROLOL 25 mg 1 tab(s) orally once a day for 30 day(s) Not-Taking ROSUVASTATIN 10 mg 1 tab(s) orally once a day for 30 day(s) Not-Taking DULOXETINE 60 mg 1 cap(s) orally once a day for 30 day(s) Not-Taking OMEPRAZOLE 20 mg 1 tab(s) orally once a day for 14 day(s) Not-Taking MOUNJARO 5 mg/0.5 mL as directed subcutaneously once a week Not-Taking POTASSIUM CHLORIDE 10 mEq 1 tab(s) orally 2 times a day for 30 day(s) Not-Taking CARTIA XT 180 mg/24 hours 1 cap(s) orally once a day for 30 day(s) Not-Taking FOLIC ACID 1 mg 1 tab(s) orally once a day Not-Taking PIOGLITAZONE 15 mg 1 tab(s) orally once a day Not-Taking PREDNISONE 10 mg 1.5 tab(s) orally once a day Not-Taking TOUJEO MAX SOLOSTAR 300 units/mL INJECT 100 UNITS SUBCUTANEOUSLY ONCE DAILY DIRECTED for 30 Not-Taking ROSUVASTATIN 10 mg 1 tab(s) orally once a day for 30 day(s) 1 Not-Taking TRELEGY ELLIPTA 200 mcg-62.5 mcg-25 mcg/inh 1 puff(s) inhaled once a day for 90 days Not-Taking XIIDRA 5% INSTILL 1 DROP INTO EACH EYE TWICE DAILY for 30 Not-Taking ANTIOXIDANT FORMULA Antioxidant Multiple Vitamins and Minerals as directed orally for 30 day(s) Not-Taking PREDNISONE 5 mg 10 tab(s) orally once a day Not-Taking METHOTREXATE 2.5 mg 7 tab(s) orally once a week 1 Not-Taking AZELASTINE HYDROCHLORIDE NASAL 137 mcg/inh 2 spray(s) intranasally BID, PRN for 30 day(s) Not-Taking OMEPRAZOLE 40 mg 1 cap(s) orally once a day for 30 day(s) Not-Taking CETIRIZINE 10 mg 1 tab(s) orally once a day Not-Taking SINGULAIR 10 mg 1 tab(s) orally once a day Not-Taking VITAMIN D3 2000 intl units as directed orally once a day for 30 day(s) Not-Taking ATORVASTATIN 40 mg 1 [...] applied topically once for 1 day(s) Not-Taking HUMALOG KWIKPEN 100 units/mL for 18 Not-Taking PREDNISONE 20 mg 2 tab(s) orally once a day for 5 day(s) 0 Not-Taking FLUOXETINE 20 mg 1 cap(s) orally once a day Not-Taking LEVOTHYROXINE 150 mcg (0.15 mg) 1 tab(s) orally once a day Not-Taking TOUJEO MAX SOLOSTAR 300 units/mL INJECT 100 UNITS SUBCUTANEOUSLY DAILY PER INSULIN PROTOCOL for 30 Not-Taking METOPROLOL SUCCINATE ER 25 mg [...] tab(s) orally once a day Not-Taking NYSTATIN 337227 units/mL 5 mL orally, sw jennifer & swallow tid Not-Taking HYDROCHLOROTHIAZIDE 25 mg for 90 Not-Taking XOLAIR 150 mg 300 mg subcutaneously every 4 weeks for 1 dose(s) Not-Taking ALPHA-LIPOIC ACID 600 mg orally once a day Not-Taking TRIPLE ANTIBIOTIC 400 units-3.5 mg-5000 units/g 1 august applied topically bid for 7 day(s) Not-Taking NASACORT ALLERGY 24HR 55 mcg/inh 2 spray(s) intranasally once a day Not-Taking NYSTATIN 763618 units/mL 4 mL orally 4 t imes [...] times a day for 10 day(s) Not-Taking MULTIVITAMIN 1 po once [...] review and pick correct strength-formul ation from Jobool options. If intended option is not shown, discontinue and re-order from Quick Search* Not-Taking Fluticasone-Salmeterol 113 MCG-14 MCG/INH 1 INH INHALED 2 TIMES A DAY for 30 DAY(S) *Please review and pick correct strength-formul ation from Jobool options. If intended option is not shown, discontinue and re-order from Quick Search* Not-Taking Montelukast Sodium 10 MG 1 tab(s) orally once a day for 30 day(s) Not-Taking Cartia XT 180 MG 1 cap(s) orally once a day for 30 day(s) Active Mounjaro 5 MG/0.5 ML DIRECTED SUBCUTANEOUSLY ONCE A WEEK *Please review and pick correct strength-formul ation from [employer]Fib[employer]an options. If intended option is not shown, discontinue and re-order from Quick Search* Active Potassium Chloride ER 10 MEQ 1 tab(s) orally 2 times a day for 30 day(s) Active Trelegy Ellipta 200 MCG-62.5 MCG-25 MCG/INH 1 PUFF(S) INHALED ONCE A DAY for 90 DAYS *Please review and pick correct strength-formul ation from [employer] options. If intended option is not shown, discontinue and re-order from Quick Search* Active Losartan Potassium 50 MG 1 tab(s) orally once a day Active Singulair 10 MG 1 tab(s) orally once a day Active Toujeo Max SoloStar 300 UNIT/ML INJECT 100 UNITS SUBCUTANEOUSLY DAILY PER INSULIN PROTOCOL for 30 Active Triple Antibiotic 3.5-400-5000 1 august applied topically bid for 7 day(s) Active Alpha-Lipoic Acid 600 MG orally once a day Active Nystatin 260480 UNIT/ML 4 mL orally 4 ti mes [...] review and pick correct strength-formul ation from [employer] options. If intended option is not shown, [...] 10 tab(s) orally once a day Not-Taking Encounters Encounter Location Date Provider Diagnosis [facility] [place] [address] [place] [address] 03/23/2024 Hailey Sotelo Severe persistent asthma, uncomplicated [...] disease, unspecified (ICD-10 - J44.9) Continue per pulmonaryDr. Rivas 03/23/2024 Hypoxemia (ICD-10 - R09.02) Off [...] Sig Start Date Stop Date Notes Ipratropium Rochelle 0.06 % 1 spray Nasal ly Four times a day for 30 days FLUTICASONE-SALMETEROL 113 mcg-14 mcg/inh 1 INH inhaled 2 times a day for 30 days SPIRIVA 18 mcg 1 cap(s) inhaled once a day FASENRA 30 mg/mL 30 mg subcutaneously every 8 weeks AEROCHAMBER MDI SPACER - MOUTHPIECE (ADULT) N/A As directed PO Per asthma action plan AMLODIPINE 5 mg 1 tab(s) orally once a day EPIPEN 2-MAKENZIE 0.3 mg 0.3 mg intramuscular ly once for 30 day(s) CETIRIZINE HYDROCHLORIDE 10 mg 1 tab(s) orally once a day MONTELUKAST 10 mg 1 tab(s) orally once a day for 30 days PROAIR HFA 90 mcg/inh 2 [...] and Management,FASENRA Administration Provider Name:Hailey Sotelo , 05/25/2024 03:30:00 PM, [address], [address], [place], [address], Progress Notes * Rula GOLDSTEINDOB:1945 (78 yo F)Acc No.[id number]:03/23/2024 FASENRA 2 Patient: Rula STRONG Provider: Krysta Sotelo PA-C :1945 A ge:78 Y S ex:Female Date:03/23/2024 Address:[address] [place], [place] [id number] Pcp:David Pruitt MD Subjective: * Chief Complaints: * 1 . ACOS Continues on Spiriva 1.25 RM and AirDuo, switched from Symbicort due to insurance. On q 8 week Fasenra injections. Passed WT, no longer has use 02 during the day, wears 3L at night per Pulmonology. 2. ARC, holding SCIT. MM 12/2017. 3. Has rheumatoid and osetoarthritis, on MTX and prednisone. Followed by wild life photographer. 4. On Nutrisystem and weight loss injection - doing well with weight loss.. * HPI: * Introduction: I had the pleasure of seeing Glenn Goldstein, a 78-year-old female with complex [...] Previously on Symbicort, now on AirDuo. 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 Also followed by wild life photographer for her RA. Today, she reports no [...] given the risk of anaphylaxis with FASENRA. B iologic administration: Indication for in-law office receptionist F ASENRA: Discussed with patient at length options for administration of FASENRA for self-administration or in-law office receptionist. Patient does not feel that they can [...] Medical History: * Medications: T aking Ipratropium Rochelle 0.06 % Solution 1 spray Nasally Four [...] *Please review and pick correct strength-formulation from [employer] options. If intended option is not shown, [...] orally once a day , Taking Nystatin 835449 UNIT/ML Suspension 4 mL orally 4 times [...] *Please review and pick correct strength-formulation from Kitean options. If intended option is not shown, discontinue and re-order from Quick Search*, Taking Potassium Chloride ER 10 MEQ Tablet Extended Release 1 tab(s) orally 2 times a day , Taking Mounjaro 5 MG/0.5 ML SOLUTION DIRECTED SUBCUTANEOUSLY ONCE A WEEK , Notes to Pharmacist: *Please review and pick correct strength-formulation from Kitean options. If intended option is not shown, [...] *Please review and pick correct strength-formulation from Jobool options. If intended option is not shown, discontinue and re-order from Quick Search*, Not-Taking/PRN Montelukast Sodium 10 MG Tablet 1 tab(s) orally once a day , Not-Taking/PRN Fluticasone-Salmeterol 113 MCG-14 MCG/INH POWDER 1 INH INHALED 2 TIMES A DAY , Notes to Pharmacist: *Please review and pick correct strength-formulation from Jobool options. If intended option is not shown, [...] orally once a day , Not-Taking/PRN NYSTATIN 214698 units/mL suspension 4 mL orally 4 times [...] HYDROCHLOROTHIAZIDE 25 mg tablet , Not-Taking/PRN NYSTATIN 478955 units/mL suspension 5 mL orally, swish & [...] tab(s) orally once a day , Not-Taking/PRN [id number] - CREAM 1 AUGUST APPLIED TOPICALLY 2 [...] orally once a day , Not-Taking/PRN Nystatin 467708 UNIT/ML Suspension 5 mL orally, swish & swallow tid , Not- Taking/PRN Hibiclens 4% SOAP 1 AUGUST APPLIED TOPICALLY ONCE , Notes to Pharmacist: *Please review and pick correct strength-formulation from Kitean options. If intended option is not shown, [...] *Please review and pick correct strength-formulation from Jobool options. If intended option is not shown, [...] *Please review and pick correct strength-formulation from Kitean options. If intended option is not shown, [...] review and pick correct strength- formulation from [employer]ib[employer] options. If intended option is not shown, [...] n ot performed. Influenza Vaccine not administered Assessment: * Assessment: 1. S evere persistent [...] day(s), 1, Refills 0; S tart Ipratropium Rochelle Solution, 0.06 %, 1 spray, Nasally, Four [...] Codes: 9 6160 PT-FOCUSED HLTH RISK ASSMT, 99647 THER/PROPH/DIAG INJ, SC/IM, J0517 Inj., benralizumab, 1 [...] Administration) * Billing Information: * Visit Code: 72364 Office Visit, Est Pt., Level 4. Modifiers: 25 * Procedure Codes: 28140 PT-FOCUSED HLTH RISK ASSMT. 48111 THER/PROPH/DIAG INJ, SC/IM. J0517 Inj., benralizumab, 1 mg. Units: 30.00. Modifiers: CHAS G8427 DOC MEDS VERIFIED W/PT OR RE. G9521 TOT # ED VSTS & IP HOSP<2 PAST 12 M. * Electronic signature of Keny Sotelo PA-C, [facility]ENTERShantal on 04/20/2024 at 12:24 PM FURNACE MECHANIC Sign off status: Pending * Provider: Krysta Sotelo PA-C Date: 0 03/23/2024 Generated for Karine saldaña/Fady/eTransmitting on: 0 04/20/2024 12:24 PM FURNACE MECHANIC History and Physical Notes * HPI (History of Present Illness) Category Sub-Category Detail Notes Category Notes *Introduction I had the pleasure of seeing Rula Goldstein, a 78-year-old female with complex [...] Previously on Symbicort, now on AirDuo. 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 Also followed by wild life photographer for her RA. Today, she reports no [...] given the risk of anaphylaxis with FASENRA. Biologic administration Indication for in-law office receptionist FASENRA: Discussed with patient at length options for administration of FASENRA for self-administration or in-law office receptionist. Patient does not feel that they can [...]
--- OUTSIDE RECORDS SUMMARY | 2024-04-20 12:50 | XMS_ITS | Referral Summary ---
Author Organization [facility] Address [address] [address] Care Team Providers Care Concrete Engineering Technician Name Role Phone Unavailable Primary Care Provider Unavailabl e Source Comments [facility],non-owned Affiliates and Associated Physician Practices is amultiple site organization consisting of ambulatory clinics and hospital sitesin [place], [place], [place] and [place]. This disclosure is being madepursuant to the Care Everywhere program and may not contain all information available regarding this patient. Last updated 17.[facility] [place] Social History Tobacco Use Types Packs/Day Years Used Date Smoking Tobacco: Never Assessed Sex and Gender Information Value Date Recorded Sex Assigned at Not on file Gender Identity Not on file Sexual Orientation Not on file Plan of Treatment Not on file
--- OUTSIDE RECORDS SUMMARY | 2024-04-20 12:50 | XMS_ITS ---
Author Organization [facility] Address [address] [place] [address] Care Team Providers Care Shipwright Apprentice Name Role Phone David Pruitt MD Primary Care Provider UnavailHerbert Zaragoza Unavailable [phone] Irineo Rivas Unavailable Unavailable Hailey Sotelo Unavailable [phone] Allergies Allergen (clinical drug ingredient) Drug/Non Drug Allergy documented on EMR Reaction Allergy Type Onset Date Status predniSONE worsening hyperglycemia/hyp ertension Drug Allergy Active metformin metFORMIN other reaction Drug Allergy Ac tive REASON FOR VISIT ACOS Continues on Spiriva 1.25 RM and AirDuo, switched from Symbicort due to insurance. On q 8 weekFasenra injections. Passed WT, no longer has use 02. No longer on Spiriva., ARC, holding SCIT. MM 12/2017, Has rheumatoid and osetoarthritis, on MTX and prednisone. Followed by heel gouger, On Nutr isystem and weight loss injection - doing well with weight loss., Slated for lumpectomy Medications Medication SIG (Take, Route, Frequency, Duration) Notes Start Date End Date Status Fluticasone-Salmeterol 113-14 MCG/ACT INHALE 1 PUFF TWICE DAILY for 30 Not-Taking Multivitamin - 1 po once a day Not-Taking Lantus 100 UNIT/ML 0 subcutaneously Not-Taking Folic Acid 1 MG 1 tab(s) orally once a day Not-Taking Pioglitazone HCl 15 MG 1 tab(s) orally once a day Not-Taking Hibiclens 4% 1 AUGUST APPLIED TOPICALLY ONCE for 1 DAY(S) *Please review and pick correct strength-formul ation from Lookmashspan options. If intended option is not shown, discontinue and re-order from Quick Search* Not-Taking Nystatin 346854 UNIT/ML 5 mL orally, swi sh & swallow tid Not-Taking [id number] - 1 AUGUST APPLIED TOPICALLY 2 TIMES [...] for e-prescription and drug interaction check* Not-Taking Omeprazole 20 MG 1 cap(s) orally once a day Not-Taking HumaLOG 100 UNIT/ML 0 subcutaneously Not-Taking SYMBICORT 160 mcg-4.5 mcg/inh Inhale 2 puffs by mouth twice daily for 30 Not-Taking MUPIROCIN 2% 1 august applied topically 2 times a day for 7 days Not-Taking Aspirin 81 MG 1 tab(s) orally once a day Not-Taking TRADJENTA 5 mg 1 tab(s) orally once a day Not-Taking XOLAIR 150 mg for 28 Not-Ta kandy NASACORT as directed Not-Taki ng VALTREX 1 g 1 tab(s) orally 2 times a day Not-Taking BYSTOLIC 10 mg for 90 Not-T aking MONTELUKAST 10 mg 1 tab(s) orally once a day for 30 day(s) Not-Taking FLUTICASONE-SALMETEROL 113 mcg-14 mcg/inh 1 INH inhaled 2 times a day for 30 day(s) Not-Taking VENTOLIN HFA 90 mcg/inh INHALE 2 PUFFS B Y MOUTH EVERY 4 TO 6 HOURS NEEDED AND PER THE ASTHMA ACTION PLAN 17 for 17 Not-Taking DOXYCYCLINE monohydrate 100 mg 1 cap(s) orally 2 times a day Not-Taking CYMBALTA 30 mg 1 cap(s) orally 2 times a day Not-Taking XARELTO 10 mg 1 tab(s) orally once a day Not-Taking ROSUVASTATIN 10 mg 1 tab(s) orally once a day for 30 day(s) Not-Taking TOUJEO MAX SOLOSTAR 300 units/mL INJECT 80 UNITS SUBCUTANEOUSLY ONCE DAILY for 90 Not-Taking METHOTREXATE 2.5 mg as directed orally once a week for 30 Not-Taking DULOXETINE 60 mg 1 cap(s) orally once a day for 30 day(s) Not-Taking MOUNJARO 5 mg/0.5 mL as directed subcutaneously once a week Not-Taking CARTIA XT 180 mg/24 hours 1 cap(s) orally once a day for 30 day(s) Not-Taking METOPROLOL 25 mg 1 tab(s) orally once a day for 30 day(s) Not-Taking OMEPRAZOLE 20 mg 1 tab(s) orally once a day for 14 day(s) Not-Taking LEVOTHYROXINE 125 mcg (0.125 mg) 1 tab(s) orally once a day for 30 day(s) Not-Taking POTASSIUM CHLORIDE 10 mEq 1 tab(s) orally 2 times a day for 30 day(s) Not-Taking PREDNISONE [...] intranasally BID, PRN for 30 day(s) Not-Taking ROSUVASTATIN 10 mg 1 tab(s) orally once a day for 30 day(s) 1 Not-Taking XIIDRA 5% INSTILL 1 DROP INTO EACH EYE TWICE DAILY for 30 Not-Taking TOUJEO MAX SOLOSTAR 300 units/mL INJECT 100 UNITS SUBCUTANEOUSLY ONCE DAILY DIRECTED for 30 Not-Taking ANTIOXIDANT FORMULA Antioxidant Multiple Vitamins and Minerals as directed orally for 30 day(s) Not-Taking PREDNISONE 5 mg 10 tab(s) orally once a day Not-Taking VITAMIN D3 2000 intl units as directed orally once a day for 30 day(s) Not-Taking OMEPRAZOLE 40 mg 1 cap(s) orally once a day for 30 day(s) Not-Taking SPIRIVA RESPIMAT 1.25 mcg/inh 2 puff(s) inhaled once a day Not-Taking MULTIVITAMIN 1 po once a day N ot-Taking ASPIRIN 81 mg 1 tab(s) chewed once a day Not-Taking ATORVASTATIN 40 mg [...] 1 cap(s) orally once a day Not-Taking FLUOXETINE 20 mg 1 cap(s) orally once a day Not-Taking LEVOTHYROXINE 150 mcg (0.15 mg) 1 tab(s) orally once a day Not-Taking SPIRIVA 18 mcg 1 puff inhaled Qday Not-Taking TOUJEO MAX SOLOSTAR 300 units/mL INJECT 100 UNITS SUBCUTANEOUSLY DAILY PER INSULIN PROTOCOL for 30 Not-Taking HUMALOG KWIKPEN 100 units/mL for 18 Not-Taking PREDNISONE 20 mg 2 tab(s) orally once a day for 5 day(s) 0 Not-Taking HIBICLENS 4% 1 august applied topically once for 1 day(s) Not-Taking AMLODIPINE 5 mg 1 tab(s) orally once a day Not-Taking LOSARTAN 50 mg 1 tab(s) orally once a day Not-Taking METOPROLOL SUCCINATE ER 25 mg 1 tab(s) orally once a day Not-Taking LANTUS 100 units/mL 0 subcutaneously Not-Taking NYSTATIN 124992 units/mL 5 mL orally, sw jennifer & swallow tid Not-Taking ATORVASTATIN 40 mg 1 tab(s) orally once a day Not-Taking METOPROLOL SUCCINATE ER 25 mg 1 tab(s) orally once a day Not-Taking HYDROCHLOROTHIAZIDE 25 mg for 90 Not-Taking TRIPLE ANTIBIOTIC 400 units-3.5 mg-5000 units/g 1 august applied topically bid for 7 day(s) Not-Taking NASACORT ALLERGY 24HR 55 mcg/inh 2 spray(s) intranasally once a day Not-Taking CLARITIN 24 HOUR ALLERGY 10 mg 1 tab(s) orally once a day Not-Taking NYSTATIN 491892 units/mL 4 mL orally 4 t imes a day Not-Taking ASPIRIN 81 mg 1 tab(s) orally once a day Not-Taking XOLAIR 150 mg 300 mg subcutaneously every 4 weeks for 1 dose(s) Not-Taking ALPHA-LIPOIC ACID 600 mg orally once a day Not-Taking OMEPRAZOLE 20 mg 1 cap(s) orally once a day Not-Taking HUMALOG 100 units/mL 0 subcutaneously Not-Taking LANTUS 100 units/mL 0 subcutaneously Not-Taking CALTRATE 600 + D 600 mg-800 intl units 1 tab(s) orally 2 times a day Not-Taking LEVOTHYROXINE 150 mcg (0.15 mg) 1 tab(s) orally once a day Not-Taking FLUOXETINE 20 mg 1 cap(s) orally once a day Not-Taking BACTRIM DS 800 mg-160 mg 1 tab(s) orally 2 times a day for 10 day(s) Not-Taking DULOXETINE 60 mg 1 cap(s) orally once a day Not-Taking TRAMADOL 50 mg 1 tab(s) orally every 4 hours Not-Taking CYMBALTA 30 mg 1 cap(s) orally 2 times a day Not-Taking MULTIVITAMIN 1 po once a day N ot-Taking Lantus 100 UNIT/ML 0 subcutaneously Not-Taking AIRDUO RESPICLICK 232 MCG-14 MCG/INH 1 INH INHALED 2 TIMES A DAY for 30 DAY(S) *Please review for potential replacement for e-prescription and drug interaction check* Not-Taking Montelukast Sodium 10 MG 1 tab(s) orally once a day for 30 day(s) Not-Taking Fluticasone-Salmeterol 113 MCG-14 MCG/INH 1 INH INHALED 2 TIMES A DAY for 30 DAY(S) *Please review and pick correct strength-formul ation from Excep Apps options. If intended option is not shown, discontinue and re-order from Quick Search* Not-Taking predniSONE 5 mg 10 tab(s) orally once a day Not-Taking Trelegy Ellipta 200 MCG-62.5 MCG-25 MCG/INH 1 PUFF(S) INHALED ONCE A DAY for 90 DAYS *Please review and pick correct strength-formul ation from Excep Apps options. If intended option is not shown, discontinue and re-order from Quick Search* Not-Taking Ipratropium Thorp 0.06 % 1 spray Nasally Four times a day for 30 days As needed Active predniSONE 10 mg 1.5 tab(s) orally once a day Not-Taking SPIRIVA 18 mcg 1 cap(s) inhaled once a day Not-Taking Spiriva HandiHaler 18 MCG 1 cap(s) inhaled once a day Not-Taking AEROCHAMBER MDI SPACER - MOUTHPIECE (ADULT) N/A As directed PO Per asthma action plan Active Fluticasone-Salmeterol 113 MCG-14 MCG/INH 1 INH INHALED 2 TIMES A DAY for 30 DAY(S) *Please review and pick correct strength-formul ation from Excep Apps options. If intended option is not shown, discontinue and re-order from Quick Search* Active FASENRA 30 mg/mL 30 mg subcutaneously every 8 weeks Active FLUTICASONE-SALMETEROL 113 mcg-14 mcg/inh 1 INH inhaled 2 times a day for 30 days Active MONTELUKAST 10 mg 1 tab(s) orally once a day for 30 days Active Cartia XT 180 MG 1 cap(s) orally once a day for 30 day(s) Active Mounjaro 5 MG/0.5 ML DIRECTED SUBCUTANEOUSLY ONCE A WEEK *Please review and pick correct strength-formul ation from Excep Apps options. If intended option is not shown, discontinue and re-order from Quick Search* Active PROAIR HFA 90 mcg/inh 2 puff(s) inhaled Q4-6 hours, PRN and per the asthma action plan Active Potassium Chloride ER 10 MEQ 1 tab(s) orally 2 times a day for 30 day(s) Active CETIRIZINE HYDROCHLORIDE 10 mg 1 tab(s) orally once a day Active AMLODIPINE 5 mg 1 tab(s) orally once a day Active EPIPEN 2-MAKENZIE 0.3 mg 0.3 mg intramuscularly once for 30 day(s) Active Toujeo Max SoloStar 300 UNIT/ML INJECT 100 UNITS SUBCUTANEOUSLY DAILY PER INSULIN PROTOCOL for 30 Active Singulair 10 MG 1 tab(s) orally once a day Active Metoprolol Succinate ER 25 MG 1 tab(s) orally once a day Active Triple Antibiotic 3.5-400-5000 1 august applied topically bid for 7 day(s) Active LOSARTAN 50 mg 1 tab(s) orally once a day Active Losartan Potassium 50 MG 1 tab(s) orally once a day Active HYDROCHLOROTHIAZIDE 25 mg 1 tab(s) orally once a day Active Alpha-Lipoic Acid 600 MG orally once a day Active Cymbalta 30 MG 1 cap(s) orally 2 times a day Active Nystatin 021357 UNIT/ML 4 mL orally 4 ti mes a day Active Levothyroxine Sodium 150 MCG 1 tab(s) orally once a day Active BYSTOLIC 10 mg 1 tab(s) orally once a day Active DULoxetine HCl 60 MG 1 cap(s) orally once a day Active Cetirizine HCl 10 MG 1 tab(s) orally once a day Active amLODIPine Besylate 5 MG 1 tab(s) orally once a day Active FLUoxetine HCl 20 MG 1 cap(s) orally once a day Active Fasenra 30 MG/ML 30 MG SUBCUTANEOUSLY EVERY 8 WEEKS *Please review and pick correct strength-formul ation from Excep Apps options. If intended option is not shown, discontinue and re-order from Quick Search* Active Mupirocin 2 % 1 august applied topically 2 times a day for 7 days Not-Taking Losartan Potassium 50 MG 1 tab(s) orally once a day Active Symbicort 160-4.5 MCG/ACT Inhale 2 puffs by mouth twice daily for 30 Not-Taking hydroCHLOROthiazide 25 MG 1 tab(s) orally once a day Active Bystolic 10 MG 1 tab(s) orally once a day Active Nasacort Allergy 24HR DIRECTED *Please re view and pick correct strength-formul ation from Excep Apps options. If intended option is not shown, discontinue and re-order from Quick Search* Not-Taking Valtrex 1 GM 1 tab(s) orally 2 times a day Not-Taking Bystolic 10 MG for 90 Not-T aking Tradjenta 5 MG 1 tab(s) orally once a day Not-Taking Xolair 150 MG for 28 Not-Ta kandy SIT (TRADITIONAL) VARIABLE PER SCHEDULE SC PER [...] cap(s) orally 2 times a day Not-Taking Toujeo Max SoloStar 300 UNIT/ML INJECT 80 UNITS SUBCUTANEOUSLY ONCE DAILY for 90 Not-Taking Methotrexate 2.5 MG DIRECTED ORALLY ONCE A WEEK for 30 *Please review and pick correct strength-formul ation from Excep Apps options. If intended option is not shown, [...] SUBCUTANEOUSLY ONCE DAILY DIRECTED for 30 Not-Taking Omeprazole Magnesium 20 MG 1 tab(s) orally once a day for 14 day(s) Not-Taking Xiidra 5 % INSTILL 1 DROP INTO EACH EYE TWICE DAILY for 30 Not-Taking Levothyroxine Sodium 125 MCG 1 tab(s) orally once a day for 30 day(s) Not-Taking Metoprolol Succinate ER 25 MG 1 tab(s) orally once a day for 30 day(s) Not-Taking Methotrexate 2.5 MG 7 TAB(S) ORALLY ONCE A WEEK *Please review and pick correct strength-formul ation from Excep Apps options. If intended option is not shown, discontinue and re-order from Quick Search* 1 Not-Taking HUMALOG KWIKPEN (CONCENTRATED) 200 UNITS/ML INJECT UP TO 56 UNITS SUBCUTANEOUSLY THREE TIMES DAILY WITH MEALS for 14 *Please review for potential replacement for e-prescription and drug interaction check* Not-Taking Rosuvastatin Calcium 10 MG 1 tab(s) orally once a day for 30 day(s) 1 Not-Taking Azelastine HCl 137 MCG/SPRAY 2 spray(s) intranasally BID, PRN for 30 day(s) Not-Taking Antioxidant Formula - as directed orally for 30 day(s) Not-Taking Omeprazole 40 MG 1 cap(s) orally once a day for 30 day(s) Not-Taking Atorvastatin Calcium 40 MG 1 tab(s) orally once a day Not-Taking Cetirizine HCl 10 MG 1 tab(s) orally once a day Not-Taking Spiriva Respimat 1.25 MCG/ACT 2 puff(s) inhaled once a day Not-Taking Vitamin D3 50 MCG (2000 UT) as directed orally once a day for 30 day(s) Not-Taking Caltrate 600+D Plus Minerals 600-800 MG-UNIT 1 tab(s) orally 2 times a day Not-Taking DULoxetine HCl 60 MG 1 cap(s) orally once a day Not-Taking Aspirin 81 MG 1 tab(s) chewed once a day Not-Taking Omeprazole 20 MG 1 cap(s) orally once a day Not-Taking FLUoxetine HCl 20 MG 1 cap(s) orally once a day Not-Taking Levothyroxine Sodium 150 MCG 1 tab(s) orally once a day Not-Taking PROAIR HFA 90 MCG/INH 2 PUFFS INHALED Q4-6 HOURS, PRN AND PER THE ASTHMA ACTION PLAN *Please review for potential replacement for e-prescription and drug interaction check* Not-Taking Spiriva HandiHaler 18 MCG 1 puff inhaled Qday Not-Taki ng HumaLOG KwikPen 100 UNIT/ML for 18 Not-Taking predniSONE 20 MG 2 tab(s) orally once a day for 5 day(s) 0 Not-Taking Nasacort Allergy 24HR 55 MCG/ACT 2 spray(s) intranasally once a day Not-Taking Xolair 150 MG 300 mg subcutaneously every 4 weeks for 1 dose(s) Not-Taking amLODIPine Besylate 5 MG 1 tab(s) orally once a day Not-Taking hydroCHLOROthiazide 25 MG for 90 Not-Taking Metoprolol Succinate ER 25 MG 1 [...] for e-prescription and drug interaction check* Not-Taking Caltrate 600+D Plus Minerals 600-800 MG-UNIT 1 tab(s) orally 2 times a day Not-Taking traMADol HCl 50 MG 1 tab(s) orally every 4 hours Not-Taking Bactrim DS 800-160 MG 1 tab(s) orally 2 times a day for 10 day(s) Not-Taking EpiPen 2-Makenzie 0.3 MG/0.3ML 0.3 mg intramuscularly once for 30 day(s) Not-Taking Social History Tobacco Use: Social History Observation Description Date Details (start date - stop date) Former Smoker NA - NA Tobacco Control (Standard) Question Answer Notes Tobacco use: Former smoker Vital Signs Blood pressure systolic 196 mm Hg 03/30/19 25 Blood pressure diastolic 78 mm Hg 025 Respiratory Rate 17 /min 03/30/2024 Height 61.50 in 03/30/2024 Weight 121 lbs 03/30/2024 BMI 22.49 kg/m2 03/30/2024 Oximetry 99 % 03/30/2024 Encounters Encounter Location Date Provider Diagnosis [facility] [address] [place] [address] 03/30/2024 Hailey Deepak Severe persistent asthma, uncomplicated J45.50 ; 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 Rivas 03/30/2024 Hypoxemia (ICD-10 - R09.02) Off day-time oxygen per pulmonary, saturation stable today 03/30/2024 Allergic rhinitis due to pollen (ICD-10 [...] - Will continue to monitor symptoms off. 03/30/2024 Other allergic rhinitis (ICD-10 - J30.89) Follow allergen avoidance, meds 03/30/2024 Other chronic allergic conjunctivitis (ICD-10 - H10.45) Given ocular signs and symptoms I encouraged allergy avoidance measures and meds as above. If symptoms persist, consider adding additional medications including intraocular antihistamine/ma st cell stabilizer, PRN 03/30/2024 Essential (primary) hypertension (ICD-10 - I10) BP normal today without symptoms of urgency or emergency. Continue serial checks and follow-up with PCP -feels her elevation is due to stress over upcoming lumpectomy 03/30/2024 Other Plan Of Treatment Medication Medication Name Sig Start Date Stop Date Notes Ipratropium Thorp 0.06 % 1 spray Nasal ly Four times a day for 30 days AEROCHAMBER MDI SPACER - MOUTHPIECE (ADULT) N/A As directed PO Per asthma action plan FASENRA 30 mg/mL 30 mg subcutaneously every 8 weeks FLUTICASONE-SALMETEROL 113 mcg-14 mcg/inh 1 INH inhaled 2 times a day for 30 days MONTELUKAST 10 mg 1 tab(s) orally once a day for 30 days PROAIR HFA 90 mcg/inh 2 puff(s) inhaled Q4-6 hours, PRN and per the asthma action plan CETIRIZINE HYDROCHLORIDE 10 mg 1 tab(s) orally once a day AMLODIPINE 5 mg 1 tab(s) orally once a day EPIPEN 2-MAKENZIE 0.3 mg 0.3 mg intramuscular ly once for 30 day(s) LOSARTAN 50 mg 1 tab(s) orally once [...] Rivas Hypoxemia Off day-time oxygen per pulmonary, saturation stable today Allergic rhinitis due to pollen Kelli's skin [...] - Will continue to monitor symptoms off. Other allergic rhinitis Follow allergen avoidance, meds Other chronic allergic conjunctivitis Gi treva ocular signs and symptoms I encouraged allergy avoidance measures and meds as above. If symptoms persist, consider adding additional medications including intraocular antihistamine/mast cell stabilizer, PRN Essential (primary) hypertension BP normal today without symptoms of urgency or emergency. Continue serial checks and follow-up with PCP -feels her elevation is due to stress over upcoming lumpectomy Next Appt Details Follow Up: 8 Weeks, Reason: Evaluation and Management,FASENRA Administration Provider Name:Hailey Uyen Sotelo , 05/25/2024 03:30:00 PM, [address] [facility], [address], [place], [address], Procedure Notes * Category Sub-Category Detail Notes FASENRA (benralizumab) Administration Dosage Subcutaneous administration: : 30 mg (30 units) Frequency Interval: every 8 weeks Location Arm: Right upper Dosing Time / Lot Number / Expiration Ti me of administration, Sonja Garcia 03/30/2024 03:52:10 PM BAR EXAMINER >, Lot Number [id number], Expiration Date 04/2026 Reaction Local: None Post-procedural check-out: Vitals taken 30 minutes after dosing administration: BP: 175/74 P: 75 O2: 99 Medication Source FASENRA Source: Buy and Bill Source Verfication:: Who pulled drug (pl ease type name in notes)? Radha Arcos Medical necessity for in-off ice administration: The patient or caregiver is not suitable , not competent or is physically unable to administer the FASENRA product FDA-labeled for self-administration for the following reason(s):: The location and circumstances for self-administration are not adequate for the potential treatment of anaphylaxis should that arise Progress Notes * Rula GOLDSTEINDOB:1945 (78 yo F)Acc No.[id number]:03/30/2024 FASENRA 2 Patient: Rula STRONG Provider: Krysta Sotelo PA-C :1945 A ge:78 Y S ex:Female Date:03/30/2024 Address:[address] [place] [address] [id number] Pcp:David Pruitt MD Subjective: * Chief Complaints: * A COS Continues on Spiriva 1.25 RM and AirDuo, switched from Symbicort due to insurance. On q 8 week Fasenra injections. Passed WT, no longer has use 02. No longer on Spiriva.ARC, holding SCIT. MM 12/2017Has rheumatoid and osetoarthritis, on MTX and prednisone. Followed by rheumatologistOn Nutrisystem and weight loss injection - doing well with weight loss.Slated for lumpectomy * HPI: * Introduction: I had the [...] Previously on Symbicort, now on AirDuo. Her cotton candy maker, Dr. 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 Also followed by heel gouger for her RA. Today, she reports no [...] with FASENRA. B iologic administration: Indication for in-engineering officer F ASENRA: Discussed with patient at length options for administration of FASENRA for self-administration or in-engineering officer. Patient does not feel that they [...] history, otherwise unremarkable. * Medical History: * Surgical History: C olonoscopy Nov 2016Cyst removal (face) 08/2017 * Hospitalization/Major Diagno stic Procedure: H eart issues/wheezing 12/2020 * Family History: F ather: , Lung Cancer, Stroke,. M other: , Lung Cancer, DM, Heart issues.?Siblings: alive, Sister-Cancer, Brother CABGx5, AFIB, DM, pacer Sister- CABGx3, AFIB, pacer, DM. C thom: alive, Daughter-Stroke x2. 1 brother(s) , 2 sister(s) . 1 son(s) , 2 daughter(s) . . There is no other family history of cancer, CF, diabetes, emphysema or heart disease. * Social History: M arital Status What is your marital status? m arried A lcohol Screening Do you ever drink alcoholic beverages? N o S moking Have you ever smoked tobacco: f ormer smoker Additional Findings: Tobacco Non-User E x-light cigarette smoker (1-9/day) How old were you when you started smoking? 1 6 How old were you when you quit smoking? 5 4 How many cigarettes a day did you smoke? 3 packs Are you a : f ormer smoker R ecreational drug use Have you ever used recreational drugs? N o D etails on consumption of certain products? Do you regularly consume products with aspartame; Equal or NutraSweet? N o Do you regularly consume products with artificial coloring??No Have you ever noticed worsening of your rash with these food items? N o A re any of the following personal care products containing fragrance, dye or preservatives used regularly? Conditioner: N o Soap: Y es Laundry Detergent: Y es Fabric Softener: Y es Deodorant: Y es Perfume, cologne, after shave: N o Air freshners or other scented products: Y es Hair coloring dyes or rinses: N o Other: N o O ccupation Are you currenly employed? N o Are you currently a student? N o E nvironmental History Living environment: p rivate home Where is the home located? r ural Age of home: 7 8 How long have you lived there? 5 years or more How many people live in the home? 2 H ome description Basement: Y es Any water damage in basement? N o Smokers in the home? N o Smokers outside the home? N o Air Conditioning? Y es Central Air? Y es Forced air heating? Y es Gas or electric? g as Fireplace? N o Wood burning stove? N o Do you vacuum the home? N o Air purification systems? N o Pillow and mattress dust-proof encasings? N o Do you use a humidifier? N o Do you own any pets? Y es What kind(s)? (click all that apply) d og Where do your pets sleep? o ther room in home Fabric softeners used? Y es Plants in the home? N o Is there carpeting in your bedroom? Y es Age of carpet? 2 0 Do you have [id number] carpeting? Y es What is the age of your carpeting? 2 0 What is the age of your mattress (years)? 1 What material(s) are used to manufacture your bedding and pillow? n atural fiber (e.g. cotton) What is the age of your pillow (years)? 2 What material are your bedding items made of? n atural fiber (e.g. cotton) Do you sleep with quilts or blankets or a duvet? Y es What material? n atural fiber (e.g. cotton) How many dogs? 2 T obacco Control (Standard) Tobacco use: F ormer smoker * Medications: T akingBystolic 10 MG Tablet 1 tab(s) orally once a day hydroCHLOROthiazide 25 MG Tablet 1 tab(s) orally once a day Losartan Potassium 50 MG Tablet 1 tab(s) orally once a day amLODIPine Besylate 5 MG Tablet 1 tab(s) orally once a day Cetirizine HCl 10 MG Tablet 1 tab(s) orally once a day Fasenra 30 MG/ML SOLUTION 30 MG SUBCUTANEOUSLY EVERY 8 WEEKS , Notes to Pharmacist: *Please review and pick correct strength-formulation from Excep Apps options. If intended option is not shown, discontinue and re-order from Quick Search*FLUoxetine HCl 20 MG Capsule 1 cap(s) orally once a day DULoxetine HCl 60 MG Capsule Delayed Release Particles 1 cap(s) orally once a day Cymbalta 30 MG Capsule Delayed Release Particles 1 cap(s) orally 2 times a day Levothyroxine Sodium 150 MCG Tablet 1 tab(s) orally once a day Nystatin 129665 UNIT/ML Suspension 4 mL orally 4 times a day Alpha-Lipoic Acid 600 MG Capsule orally once a day Triple Antibiotic 3.5-400-5000 Ointment 1 august applied topically bid Metoprolol Succinate ER 25 MG Tablet Extended Release 24 Hour 1 tab(s) orally once a day Losartan Potassium 50 MG Tablet 1 tab(s) orally once a day Sharla Max SoloStar 300 UNIT/ML Solution Pen-injector INJECT 100 UNITS SUBCUTANEOUSLY DAILY PER INSULIN PROTOCOL Singulair 10 MG Tablet 1 tab(s) orally once a day Potassium Chloride ER 10 MEQ Tablet Extended Release 1 tab(s) orally 2 times a day Mounjaro 5 MG/0.5 ML SOLUTION DIRECTED SUBCUTANEOUSLY ONCE A WEEK , Notes to Pharmacist: *Please review and pick correct strength-formulation from [employer] options. If intended option is not shown, discontinue and re-order from Quick Search*Cartia XT 180 MG Capsule Extended Release 24 Hour 1 cap(s) orally once a day Fluticasone-Salmeterol 113 MCG-14 MCG/INH POWDER 1 INH INHALED 2 TIMES A DAY , Notes to Pharmacist: *Please review and pick correct strength-formulation from [employer] options. If intended option is not shown, discontinue and re-order from Quick Search*Taking Bystolic 10 MG Tablet 1 tab(s) orally once a day Taking hydroCHLOROthiazide 25 MG Tablet 1 tab(s) orally once a day Taking Losartan Potassium 50 MG Tablet 1 tab(s) orally once a day Taking amLODIPine Besylate 5 MG Tablet 1 tab(s) orally once a day Taking Cetirizine HCl 10 MG Tablet 1 tab(s) orally once a day Taking Fasenra 30 MG/ML SOLUTION 30 MG SUBCUTANEOUSLY EVERY 8 WEEKS , Notes to Pharmacist: *Please review and pick correct strength-formulation from [employer] options. If intended option is not shown, discontinue and re-order from Quick Search*Taking FLUoxetine HCl 20 MG Capsule 1 cap(s) orally once a day Taking DULoxetine HCl 60 MG Capsule Delayed Release Particles 1 cap(s) orally once a day Taking Cymbalta 30 MG Capsule Delayed Release Particles 1 cap(s) orally 2 times a day Taking Levothyroxine Sodium 150 MCG Tablet 1 tab(s) orally once a day Taking Nystatin 962379 UNIT/ML Suspension 4 mL orally 4 times a day Taking Alpha-Lipoic Acid 600 MG Capsule orally once a day Taking Triple Antibiotic 3.5-400-5000 Ointment 1 august applied topically bid Taking Metoprolol Succinate ER 25 MG Tablet Extended Release 24 Hour 1 tab(s) orally once a day Taking Losartan Potassium 50 MG Tablet 1 tab(s) orally once a day Taking Toujeo Max SoloStar 300 UNIT/ML Solution Pen-injector INJECT 100 UNITS SUBCUTANEOUSLY DAILY PER INSULIN PROTOCOL Taking Singulair 10 MG Tablet 1 tab(s) orally once a day Taking Potassium Chloride ER 10 MEQ Tablet Extended Release 1 tab(s) orally 2 times a day Taking Mounjaro 5 MG/0.5 ML SOLUTION DIRECTED SUBCUTANEOUSLY ONCE A WEEK , Notes to Pharmacist: *Please review and pick correct strength-formulation from [employer] options. If intended option is not shown, discontinue and re-order from Quick Search*Taking Cartia XT 180 MG Capsule Extended Release 24 Hour 1 cap(s) orally once a day Taking Fluticasone-Salmeterol 113 MCG-14 MCG/INH POWDER 1 INH INHALED 2 TIMES A DAY , Notes to Pharmacist: *Please review and pick correct strength-formulation from [employer] options. If intended option is not shown, discontinue and re-order from Quick Search*Not-Taking/PRNIpratropium Thorp 0.06 % Solution 1 spray Nasally Four times a day As neededSpiriva HandiHaler 18 MCG Capsule 1 cap(s) inhaled once a day Trelegy Ellipta 200 MCG-62.5 MCG-25 MCG/INH POWDER 1 PUFF(S) INHALED ONCE A DAY , Notes to Pharmacist: *Please review and pick correct strength-formulation from [employer] options. If intended option is not shown, discontinue and re-order from Quick Search*predniSONE 5 mg tablet 10 tab(s) orally once a day predniSONE 10 mg tablet 1.5 tab(s) orally once a day BYSTOLIC 10 mg tablet 1 tab(s) orally once a day HYDROCHLOROTHIAZIDE 25 mg tablet 1 tab(s) orally once a day LOSARTAN 50 mg tablet 1 tab(s) orally once a day AMLODIPINE 5 mg tablet 1 tab(s) orally once a day CETIRIZINE HYDROCHLORIDE 10 mg tablet 1 tab(s) orally once a day EPIPEN 2-MAKENZIE 0.3 mg kit 0.3 mg intramuscularly once MONTELUKAST 10 mg tablet 1 tab(s) orally once a day PROAIR HFA 90 mcg/inh aerosol 2 puff(s) inhaled Q4-6 hours, PRN and per the asthma action plan AEROCHAMBER MDI SPACER - MOUTHPIECE (ADULT) N/A Spacer for MDI use As directed PO Per asthma action plan FASENRA 30 mg/mL solution 30 mg subcutaneously every 8 weeks SPIRIVA 18 mcg capsule 1 cap(s) inhaled once a day FLUTICASONE-SALMETEROL 113 mcg-14 mcg/inh powder 1 INH inhaled 2 times a day predniSONE 5 mg tablet 10 tab(s) orally once a day predniSONE 10 mg tablet 1.5 tab(s) orally once a day Fluticasone-Salmeterol 113 MCG-14 MCG/INH POWDER 1 INH INHALED 2 TIMES A DAY , Notes to Pharmacist: *Please review and pick correct strength-formulation from [employer] options. If intended option is not shown, discontinue and re-order from Quick Search*Montelukast Sodium 10 MG Tablet 1 tab(s) orally once a day AIRDUO RESPICLICK 232 MCG-14 MCG/INH POWDER 1 INH INHALED 2 TIMES A DAY , Notes to Pharmacist: *Please review for potential replacement for e-prescription and drug interaction check*Lantus 100 UNIT/ML Solution 0 subcutaneously MULTIVITAMIN tablet 1 po once a day BACTRIM DS 800 mg-160 mg tablet 1 tab(s) orally 2 times a day FLUOXETINE 20 mg capsule 1 cap(s) orally once a day TRAMADOL 50 mg tablet 1 tab(s) orally every 4 hours DULOXETINE 60 mg delayed release capsule 1 cap(s) orally once a day CYMBALTA 30 mg delayed release capsule 1 cap(s) orally 2 times a day LEVOTHYROXINE 150 mcg (0.15 mg) tablet 1 tab(s) orally once a day CALTRATE 600 + D 600 mg-800 intl units tablet 1 tab(s) orally 2 times a day LANTUS 100 units/mL solution 0 subcutaneously HUMALOG 100 units/mL solution 0 subcutaneously OMEPRAZOLE 20 mg delayed release capsule 1 cap(s) orally once a day CLARITIN 24 HOUR ALLERGY 10 mg tablet 1 tab(s) orally once a day ASPIRIN 81 mg delayed release tablet 1 tab(s) orally once a day NYSTATIN 313708 units/mL suspension 4 mL orally 4 times a day ALPHA-LIPOIC ACID 600 mg capsule orally once a day XOLAIR 150 mg powder for injection 300 mg subcutaneously every 4 weeks NASACORT ALLERGY 24HR 55 mcg/inh spray 2 spray(s) intranasally once a day TRIPLE ANTIBIOTIC 400 units-3.5 mg-5000 units/g ointment 1 august applied topically bid METOPROLOL SUCCINATE ER 25 mg tablet, extended release 1 tab(s) orally once a day ATORVASTATIN 40 mg tablet 1 tab(s) orally once a day HYDROCHLOROTHIAZIDE 25 mg tablet NYSTATIN [id number] units/mL suspension 5 mL orally, swish & swallow tid LOSARTAN 50 mg tablet 1 tab(s) orally once a day AMLODIPINE 5 mg tablet 1 tab(s) orally once a day LANTUS 100 units/mL solution 0 subcutaneously METOPROLOL SUCCINATE ER 25 mg tablet, extended release 1 tab(s) orally once a day TOUJEO MAX SOLOSTAR 300 units/mL solution INJECT 100 UNITS SUBCUTANEOUSLY DAILY PER INSULIN PROTOCOL SPIRIVA 18 mcg capsule 1 puff inhaled Qday HIBICLENS 4% soap 1 august applied topically once PREDNISONE 20 mg tablet 2 tab(s) orally once a day HUMALOG KWIKPEN 100 units/mL solution LEVOTHYROXINE 150 mcg (0.15 mg) tablet 1 tab(s) orally once a day FLUOXETINE 20 mg capsule 1 cap(s) orally once a day DULOXETINE 60 mg delayed release capsule 1 cap(s) orally once a day CALTRATE 600 + D 600 mg-800 intl units tablet 1 tab(s) orally 2 times a day OMEPRAZOLE 20 mg delayed release capsule 1 cap(s) orally once a day ASPIRIN 81 mg tablet, chewable 1 tab(s) chewed once a day MULTIVITAMIN tablet 1 po once a day SINGULAIR 10 mg tablet 1 tab(s) orally once a day CETIRIZINE 10 mg tablet 1 tab(s) orally once a day ATORVASTATIN 40 mg tablet 1 tab(s) orally once a day VITAMIN D3 2000 intl units tablet as directed orally once a day SPIRIVA RESPIMAT 1.25 mcg/inh aerosol 2 puff(s) inhaled once a day OMEPRAZOLE 40 mg delayed release capsule 1 cap(s) orally once a day PREDNISONE 5 mg tablet 10 tab(s) orally once a day ANTIOXIDANT FORMULA Antioxidant Multiple Vitamins and Minerals tablet as directed orally AZELASTINE HYDROCHLORIDE NASAL 137 mcg/inh spray 2 spray(s) intranasally BID, PRN METHOTREXATE 2.5 mg tablet 7 tab(s) orally once a week ROSUVASTATIN 10 mg tablet 1 tab(s) orally once a day TOUJEO MAX SOLOSTAR 300 units/mL solution INJECT 100 UNITS SUBCUTANEOUSLY ONCE DAILY DIRECTED XIIDRA 5% solution INSTILL 1 DROP INTO EACH EYE TWICE DAILY TRELEGY ELLIPTA 200 mcg-62.5 mcg-25 mcg/inh powder 1 puff(s) inhaled once a day PREDNISONE 10 mg tablet 1.5 tab(s) orally once a day PIOGLITAZONE 15 mg tablet 1 tab(s) orally once a day FOLIC ACID 1 mg tablet 1 tab(s) orally once a day POTASSIUM CHLORIDE 10 mEq tablet, extended release 1 tab(s) orally 2 times a day MOUNJARO 5 mg/0.5 mL solution as directed subcutaneously once a week CARTIA XT 180 mg/24 hours capsule, extended release 1 cap(s) orally once a day OMEPRAZOLE 20 mg delayed release tablet 1 tab(s) orally once a day METOPROLOL 25 mg tablet, extended release 1 tab(s) orally once a day LEVOTHYROXINE 125 mcg (0.125 mg) tablet 1 tab(s) orally once a day DULOXETINE 60 mg delayed release capsule 1 cap(s) orally once a day ROSUVASTATIN 10 mg tablet 1 tab(s) orally once a day XARELTO 10 mg tablet 1 tab(s) orally once a day METHOTREXATE 2.5 mg tablet as directed orally once a week TOUJEO MAX SOLOSTAR 300 units/mL solution INJECT 80 UNITS SUBCUTANEOUSLY ONCE DAILY VENTOLIN HFA 90 mcg/inh aerosol INHALE 2 PUFFS BY MOUTH EVERY 4 TO 6 HOURS NEEDED AND PER THE ASTHMA ACTION PLAN 17 FLUTICASONE-SALMETEROL 113 mcg-14 mcg/inh powder 1 INH inhaled 2 times a day MONTELUKAST 10 mg tablet 1 tab(s) orally once a day CYMBALTA 30 mg delayed release capsule 1 cap(s) orally 2 times a day DOXYCYCLINE monohydrate 100 mg capsule 1 cap(s) orally 2 times a day BYSTOLIC 10 mg tablet VALTREX 1 g tablet 1 tab(s) orally 2 times a day XOLAIR 150 mg powder for injection TRADJENTA 5 mg tablet 1 tab(s) orally once a day NASACORT as directed MUPIROCIN 2% ointment 1 august applied topically 2 times a day SYMBICORT 160 mcg-4.5 mcg/inh aerosol Inhale 2 puffs by mouth twice daily HumaLOG 100 UNIT/ML Solution 0 subcutaneously Omeprazole 20 MG Capsule Delayed Release 1 cap(s) orally once a day Aspirin 81 MG Tablet Delayed Release 1 tab(s) orally once a day [id number] - CREAM 1 AUGUST APPLIED TOPICALLY 2 TIMES A DAY , Notes to Pharmacist: *Please review for potential replacement for e-prescription and drug interaction check*VANICREAM MOISTURIZING CREAM N/A MOISTURIZING CREAM NECESSARY APPLY TO EXTERNAL SURFACES OFTEN NEEDED TO FACE, HANDS, FEET OR BODY FOR DAILY USE BY THE ENTIRE FAMILY , Notes to Pharmacist: *Please review for potential replacement for e-prescription and drug interaction check*Atorvastatin Calcium 40 MG Tablet 1 tab(s) orally once a day Nystatin 206390 UNIT/ML Suspension 5 mL orally, swish & swallow tid Hibiclens 4% SOAP 1 AUGUST APPLIED TOPICALLY ONCE , Notes to Pharmacist: *Please review and pick correct strength-formulation from [employer] options. If intended option is not shown, discontinue and re-order from Quick Search*Pioglitazone HCl 15 MG Tablet 1 tab(s) orally once a day Folic Acid 1 MG Tablet 1 tab(s) orally once a day Fluticasone-Salmeterol 113-14 MCG/ACT Aerosol Powder Breath Activated INHALE 1 PUFF TWICE DAILY Lantus 100 UNIT/ML Solution 0 subcutaneously Multivitamin - Tablet 1 po once a day EpiPen 2-Makenzie 0.3 MG/0.3ML Solution Auto-injector 0.3 mg intramuscularly once Bactrim DS 800-160 MG Tablet 1 tab(s) orally 2 times a day traMADol HCl 50 MG Tablet 1 tab(s) orally every 4 hours Caltrate 600+D Plus Minerals 600-800 MG-UNIT Tablet 1 tab(s) orally 2 times a day Claritin 10 MG Tablet 1 tab(s) orally once a day ONE DAILY MULTI-ESSENTIAL MULTIPLE VITAMINS TABLET 1 TAB(S) ORALLY ONCE A DAY , Notes to Pharmacist: *Please review for potential replacement for e-prescription and drug interaction check*EPINEPHRINE TWO-PACK 0.3 MG KIT 0.3 MG INTRAMUSCULARLY ONCE , Notes to Pharmacist: *Please review for potential replacement for e-prescription and drug interaction check*Xolair 150 MG Solution Reconstituted 300 mg subcutaneously every 4 weeks Nasacort Allergy 24HR 55 MCG/ACT Aerosol 2 spray(s) intranasally once a day hydroCHLOROthiazide 25 MG Tablet amLODIPine Besylate 5 MG Tablet 1 tab(s) orally once a day Metoprolol Succinate ER 25 MG Tablet Extended Release 24 Hour 1 tab(s) orally once a day Spiriva HandiHaler 18 MCG Capsule 1 puff inhaled Qday predniSONE 20 MG Tablet 2 tab(s) orally once a day HumaLOG KwikPen 100 UNIT/ML Solution Pen-injector PROAIR HFA 90 MCG/INH AEROSOL 2 PUFFS INHALED Q4-6 HOURS, PRN AND PER THE ASTHMA ACTION PLAN , Notes to Pharmacist: *Please review for potential replacement for e-prescription and drug interaction check*Levothyroxine Sodium 150 MCG Tablet 1 tab(s) orally once a day FLUoxetine HCl 20 MG Capsule 1 cap(s) orally once a day DULoxetine HCl 60 MG Capsule Delayed Release Particles 1 cap(s) orally once a day Caltrate 600+D Plus Minerals 600-800 MG- UNIT Tablet 1 tab(s) orally 2 times a day Omeprazole 20 MG Capsule Delayed Release 1 cap(s) orally once a day Aspirin 81 MG Tablet Chewable 1 tab(s) chewed once a day Cetirizine HCl 10 MG Tablet 1 tab(s) orally once a day Atorvastatin Calcium 40 MG Tablet 1 tab(s) orally once a day Vitamin D3 50 MCG (2000 UT) Tablet as directed orally once a day Spiriva Respimat 1.25 MCG/ACT Aerosol Solution 2 puff(s) inhaled once a day Omeprazole 40 MG Capsule Delayed Release 1 cap(s) orally once a day Antioxidant Formula - Tablet as directed orally Azelastine HCl 137 MCG/SPRAY Solution 2 spray(s) intranasally BID, PRN HUMALOG KWIKPEN (CONCENTRATED) 200 UNITS/ML SOLUTION INJECT UP TO 56 UNITS SUBCUTANEOUSLY THREE TIMES DAILY WITH MEALS , Notes to Pharmacist: *Please review for potential replacement for e-prescription and drug interaction check*Methotrexate 2.5 MG TABLET 7 TAB(S) ORALLY ONCE A WEEK , Notes to Pharmacist: *Please review and pick correct strength-formulation from [employer] options. If intended option is not shown, discontinue and re-order from Quick Search*Rosuvastatin Calcium 10 MG Tablet 1 tab(s) orally once a day Toujeo Max SoloStar 300 UNIT/ML Solution Pen-injector INJECT 100 UNITS SUBCUTANEOUSLY ONCE DAILY DIRECTED Xiidra 5 % Solution INSTILL 1 DROP INTO EACH EYE TWICE DAILY Omeprazole Magnesium 20 MG Tablet Delayed Release 1 tab(s) orally once a day Metoprolol Succinate ER 25 MG Tablet Extended Release 24 Hour 1 tab(s) orally once a day Levothyroxine Sodium 125 MCG Tablet 1 tab(s) orally once a day DULoxetine HCl 60 MG Capsule Delayed Release Particles 1 cap(s) orally once a day Rosuvastatin Calcium 10 MG Tablet 1 tab(s) orally once a day Xarelto 10 MG Tablet 1 tab(s) orally once a day Methotrexate 2.5 MG TABLET DIRECTED ORALLY ONCE A WEEK , Notes to Pharmacist: *Please review and pick correct strength-formulation from [employer] options. If intended option is not shown, discontinue and re-order from Quick Search*Toujeo Max SoloStar 300 UNIT/ML Solution Pen-injector INJECT 80 UNITS SUBCUTANEOUSLY ONCE DAILY HUMALOG KWIKPEN (CONCENTRATED) 200 UNITS/ML SOLUTION , Notes to Pharmacist: *Please review for potential replacement for e-prescription and drug interaction check*SIT (TRADITIONAL) VARIABLE SEE RECORD PER SCHEDULE SC PER SCHEDULE , Notes to Pharmacist: *Please review for potential replacement for e-prescription and drug interaction check*Ventolin HFA 108 (90 Base) MCG/ACT Aerosol Solution INHALE 2 PUFFS BY MOUTH EVERY 4 TO 6 HOURS NEEDED AND PER THE ASTHMA ACTION PLAN 17 Cymbalta 30 MG Capsule Delayed Release Particles 1 cap(s) orally 2 times a day Doxycycline Monohydrate 100 MG Capsule 1 cap(s) orally 2 times a day Bystolic 10 MG Tablet Valtrex 1 GM Tablet 1 tab(s) orally 2 times a day Xolair 150 MG Solution Reconstituted Tradjenta 5 MG Tablet 1 tab(s) orally once a day Nasacort Allergy 24HR DIRECTED , Notes to Pharmacist: *Please review and pick correct strength-formulation from [employer] options. If intended option is not shown, discontinue and re-order from Quick Search*Mupirocin 2 % Ointment 1 august applied topically 2 times a day Symbicort 160-4.5 MCG/ACT Aerosol Inhale 2 puffs by mouth twice daily Medication List reviewed and reconciled with the patientNot-Taking/PRN Ipratropium Thorp 0.06 % Solution 1 spray Nasally Four times a day As neededNot-Taking/PRN Spiriva HandiHaler 18 MCG Capsule 1 cap(s) inhaled once a day Not-Taking/PRN Trelegy Ellipta 200 MCG-62.5 MCG-25 MCG/INH POWDER 1 PUFF(S) INHALED ONCE A DAY , Notes to Pharmacist: *Please review and pick correct strength-formulation from [employer] options. If intended option is not shown, discontinue and re-order from Quick Search*Not-Taking/PRN predniSONE 5 mg tablet 10 tab(s) orally once a day Not-Taking/PRN predniSONE 10 mg tablet 1.5 tab(s) orally once a day Not-Taking/PRN BYSTOLIC 10 mg tablet 1 tab(s) orally once a day Not-Taking/PRN HYDROCHLOROTHIAZIDE 25 mg tablet 1 tab(s) orally once a day Not-Taking/PRN LOSARTAN 50 mg tablet 1 tab(s) orally once a day Not-Taking/PRN AMLODIPINE 5 mg tablet 1 tab(s) orally once a day Not-Taking/PRN CETIRIZINE HYDROCHLORIDE 10 mg tablet 1 tab(s) orally once a day Not-Taking/PRN EPIPEN 2- MAKENZIE 0.3 mg kit 0.3 mg intramuscularly once Not-Taking/PRN MONTELUKAST 10 mg tablet 1 tab(s) orally once a day Not-Taking/PRN PROAIR HFA 90 mcg/inh aerosol 2 puff(s) inhaled Q4-6 hours, PRN and per the asthma action plan Not-Taking/PRN AEROCHAMBER MDI SPACER - MOUTHPIECE (ADULT) N/A Spacer for MDI use As directed PO Per asthma action plan Not-Taking/PRN FASENRA 30 mg/mL solution 30 mg subcutaneously every 8 weeks Not-Taking/PRN SPIRIVA 18 mcg capsule 1 cap(s) inhaled once a day Not-Taking/PRN FLUTICASONE-SALMETEROL 113 mcg-14 mcg/inh powder 1 INH inhaled 2 times a day Not-Taking/PRN predniSONE 5 mg tablet 10 tab(s) orally once a day Not-Taking/PRN predniSONE 10 mg tablet 1.5 tab(s) orally once a day Not-Taking/PRN Fluticasone-Salmeterol 113 MCG-14 MCG/INH POWDER 1 INH INHALED 2 TIMES A DAY , Notes to Pharmacist: *Please review and pick correct strength-formulation from [employer] options. If intended option is not shown, discontinue and re-order from Quick Search*Not-Taking/PRN Montelukast Sodium 10 MG Tablet 1 tab(s) orally once a day Not-Taking/PRN AIRDUO RESPICLICK 232 MCG-14 MCG/INH POWDER 1 INH INHALED 2 TIMES A DAY , Notes to Pharmacist: *Please review for potential replacement for e-prescription and drug interaction check*Not-Taking/PRN Lantus 100 UNIT/ML Solution 0 subcutaneously Not-Taking/PRN MULTIVITAMIN tablet 1 po once a day Not- Taking/PRN BACTRIM DS 800 mg-160 mg tablet 1 tab(s) orally 2 times a day Not-Taking/PRN FLUOXETINE 20 mg capsule 1 cap(s) orally once a day Not-Taking/PRN TRAMADOL 50 mg tablet 1 tab(s) orally every 4 hours Not-Taking/PRN DULOXETINE 60 mg delayed release capsule 1 cap(s) orally once a day Not-Taking/PRN CYMBALTA 30 mg delayed release capsule 1 cap(s) orally 2 times a day Not-Taking/PRN LEVOTHYROXINE 150 mcg (0.15 mg) tablet 1 tab(s) orally once a day Not-Taking/PRN CALTRATE 600 + D 600 mg-800 intl units tablet 1 tab(s) orally 2 times a day Not-Taking/PRN LANTUS 100 units/mL solution 0 subcutaneously Not-Taking/PRN HUMALOG 100 units/mL solution 0 subcutaneously Not-Taking/PRN OMEPRAZOLE 20 mg delayed release capsule 1 cap(s) orally once a day Not-Taking/PRN CLARITIN 24 HOUR ALLERGY 10 mg tablet 1 tab(s) orally once a day Not-Taking/PRN ASPIRIN 81 mg delayed release tablet 1 tab(s) orally once a day Not-Taking/PRN NYSTATIN [id number] units/mL suspension 4 mL orally 4 times a day Not-Taking/PRN ALPHA-LIPOIC ACID 600 mg capsule orally once a day Not- Taking/PRN XOLAIR 150 mg powder for injection 300 mg subcutaneously every 4 weeks Not- Taking/PRN NASACORT ALLERGY 24HR 55 mcg/inh spray 2 spray(s) intranasally once a day Not-Taking/PRN TRIPLE ANTIBIOTIC 400 units-3.5 mg-5000 units/g ointment 1 august applied topically bid Not-Taking/PRN METOPROLOL SUCCINATE ER 25 mg tablet, extended release 1 tab(s) orally once a day Not-Taking/PRN ATORVASTATIN 40 mg tablet 1 tab(s) orally once a day Not-Taking/PRN HYDROCHLOROTHIAZIDE 25 mg tablet Not-Taking/PRN NYSTATIN 429346 units/mL suspension 5 mL orally, swish & swallow tid Not-Taking/PRN LOSARTAN 50 mg tablet 1 tab(s) orally once a day Not-Taking/PRN AMLODIPINE 5 mg tablet 1 tab(s) orally once a day Not-Taking/PRN LANTUS 100 units/mL solution 0 subcutaneously Not-Taking/PRN METOPROLOL SUCCINATE ER 25 mg tablet, extended release 1 tab(s) orally once a day Not-Taking/PRN TOUJEO MAX SOLOSTAR 300 units/mL solution INJECT 100 UNITS SUBCUTANEOUSLY DAILY PER INSULIN PROTOCOL Not-Taking/PRN SPIRIVA 18 mcg capsule 1 puff inhaled Qday Not-Taking/PRN HIBICLENS 4% soap 1 august applied topically once Not-Taking/PRN PREDNISONE 20 mg tablet 2 tab(s) orally once a day Not-Taking/PRN HUMALOG KWIKPEN 100 units/mL solution Not-Taking/PRN LEVOTHYROXINE 150 mcg (0.15 mg) tablet 1 tab(s) orally once a day Not-Taking/PRN FLUOXETINE 20 mg capsule 1 cap(s) orally once a day Not-Taking/PRN DULOXETINE 60 mg delayed release capsule 1 cap(s) orally once a day Not-Taking/PRN CALTRATE 600 + D 600 mg-800 intl units tablet 1 tab(s) orally 2 times a day Not-Taking/PRN OMEPRAZOLE 20 mg delayed release capsule 1 cap(s) orally once a day Not-Taking/PRN ASPIRIN 81 mg tablet, chewable 1 tab(s) chewed once a day Not-Taking/PRN MULTIVITAMIN tablet 1 po once a day Not- Taking/PRN SINGULAIR 10 mg tablet 1 tab(s) orally once a day Not-Taking/PRN CETIRIZINE 10 mg tablet 1 tab(s) orally once a day Not-Taking/PRN ATORVASTATIN 40 mg tablet 1 tab(s) orally once a day Not-Taking/PRN VITAMIN D3 2000 intl units tablet as directed orally once a day Not-Taking/PRN SPIRIVA RESPIMAT 1.25 mcg/inh aerosol 2 puff(s) inhaled once a day Not-Taking/PRN OMEPRAZOLE 40 mg delayed release capsule 1 cap(s) orally once a day Not-Taking/PRN PREDNISONE 5 mg tablet 10 tab(s) orally once a day Not-Taking/PRN ANTIOXIDANT FORMULA Antioxidant Multiple Vitamins and Minerals tablet as directed orally Not-Taking/PRN AZELASTINE HYDROCHLORIDE NASAL 137 mcg/inh spray 2 spray(s) intranasally BID, PRN Not-Taking/PRN METHOTREXATE 2.5 mg tablet 7 tab(s) orally once a week Not-Taking/PRN ROSUVASTATIN 10 mg tablet 1 tab(s) orally once a day Not-Taking/PRN TOUJEO MAX SOLOSTAR 300 units/mL solution INJECT 100 UNITS SUBCUTANEOUSLY ONCE DAILY DIRECTED Not-Taking/PRN XIIDRA 5% solution INSTILL 1 DROP INTO EACH EYE TWICE DAILY Not-Taking/PRN TRELEGY ELLIPTA 200 mcg-62.5 mcg- 25 mcg/inh powder 1 puff(s) inhaled once a day Not-Taking/PRN PREDNISONE 10 mg tablet 1.5 tab(s) orally once a day Not-Taking/PRN PIOGLITAZONE 15 mg tablet 1 tab(s) orally once a day Not-Taking/PRN FOLIC ACID 1 mg tablet 1 tab(s) orally once a day Not-Taking/PRN POTASSIUM CHLORIDE 10 mEq tablet, extended release 1 tab(s) orally 2 times a day Not-Taking/PRN MOUNJARO 5 mg/0.5 mL solution as directed subcutaneously once a week Not-Taking/PRN CARTIA XT 180 mg/24 hours capsule, extended release 1 cap(s) orally once a day Not-Taking/PRN OMEPRAZOLE 20 mg delayed release tablet 1 tab(s) orally once a day Not-Taking/PRN METOPROLOL 25 mg tablet, extended release 1 tab(s) orally once a day Not-Taking/PRN LEVOTHYROXINE 125 mcg (0.125 mg) tablet 1 tab(s) orally once a day Not-Taking/PRN DULOXETINE 60 mg delayed release capsule 1 cap(s) orally once a day Not-Taking/PRN ROSUVASTATIN 10 mg tablet 1 tab(s) orally once a day Not-Taking/PRN XARELTO 10 mg tablet 1 tab(s) orally once a day Not-Taking/PRN METHOTREXATE 2.5 mg tablet as directed orally once a week Not-Taking/PRN TOUJEO MAX SOLOSTAR 300 units/mL solution INJECT 80 UNITS SUBCUTANEOUSLY ONCE DAILY Not-Taking/PRN VENTOLIN HFA 90 mcg/inh aerosol INHALE 2 PUFFS BY MOUTH EVERY 4 TO 6 HOURS NEEDED AND PER THE ASTHMA ACTION PLAN 17 Not-Taking/PRN FLUTICASONE-SALMETEROL 113 mcg-14 mcg/inh powder 1 INH inhaled 2 times a day Not-Taking/PRN MONTELUKAST 10 mg tablet 1 tab(s) orally once a day Not-Taking/PRN CYMBALTA 30 mg delayed release capsule 1 cap(s) orally 2 times a day Not-Taking/PRN DOXYCYCLINE monohydrate 100 mg capsule 1 cap(s) orally 2 times a day Not-Taking/PRN BYSTOLIC 10 mg tablet Not-Taking/PRN VALTREX 1 g tablet 1 tab(s) orally 2 times a day Not-Taking/PRN XOLAIR 150 mg powder for injection Not- Taking/PRN TRADJENTA 5 mg tablet 1 tab(s) orally once a day Not-Taking/PRN NASACORT as directed Not-Taking/PRN MUPIROCIN 2% ointment 1 august applied topically 2 times a day Not-Taking/PRN SYMBICORT 160 mcg-4.5 mcg/inh aerosol Inhale 2 puffs by mouth twice daily Not-Taking/PRN HumaLOG 100 UNIT/ML Solution 0 subcutaneously Not- Taking/PRN Omeprazole 20 MG Capsule Delayed Release 1 cap(s) orally once a day Not- Taking/PRN Aspirin 81 MG Tablet Delayed Release 1 tab(s) orally once a day Not-Taking/PRN [id number] - CREAM 1 AUGUST APPLIED TOPICALLY 2 TIMES A DAY , Notes to Pharmacist: *Please review for potential replacement for e-prescription and drug interaction check*Not-Taking/PRN VANICREAM MOISTURIZING CREAM N/A MOISTURIZING CREAM NECESSARY APPLY TO EXTERNAL SURFACES OFTEN NEEDED TO FACE, HANDS, FEET OR BODY FOR DAILY USE BY THE ENTIRE FAMILY , Notes to Pharmacist: *Please review for potential replacement for e-prescription and drug interaction check*Not-Taking/PRN Atorvastatin Calcium 40 MG Tablet 1 tab(s) orally once a day Not-Taking/PRN Nystatin [id number] UNIT/ML Suspension 5 mL orally, swish & swallow tid Not-Taking/PRN Hibiclens 4% SOAP 1 AUGUST APPLIED TOPICALLY ONCE , Notes to Pharmacist: *Please review and pick correct strength-formulation from Medispan options. If intended option is not shown, discontinue and re-order from Quick Search*Not-Taking/PRN Pioglitazone HCl 15 MG Tablet 1 tab(s) orally once a day Not-Taking/PRN Folic Acid 1 MG Tablet 1 tab(s) orally once a day Not-Taking/PRN Fluticasone-Salmeterol 113-14 MCG/ACT Aerosol Powder Breath Activated INHALE 1 PUFF TWICE DAILY Not-Taking/PRN Lantus 100 UNIT/ML Solution 0 subcutaneously Not-Taking/PRN Multivitamin - Tablet 1 po once a day Not- Taking/PRN EpiPen 2-Makenzie 0.3 MG/0.3ML Solution Auto-injector 0.3 mg intramuscularly once Not-Taking/PRN Bactrim DS 800-160 MG Tablet 1 tab(s) orally 2 times a day Not-Taking/PRN traMADol HCl 50 MG Tablet 1 tab(s) orally every 4 hours Not- Taking/PRN Caltrate 600+D Plus Minerals 600-800 MG-UNIT Tablet 1 tab(s) orally 2 times a day Not-Taking/PRN Claritin 10 MG Tablet 1 tab(s) orally once a day Not-Taking/PRN ONE DAILY MULTI-ESSENTIAL MULTIPLE VITAMINS TABLET 1 TAB(S) ORALLY ONCE A DAY , Notes to Pharmacist: *Please review for potential replacement for e-prescription and drug interaction check*Not-Taking/PRN EPINEPHRINE TWO-PACK 0.3 MG KIT 0.3 MG INTRAMUSCULARLY ONCE , Notes to Pharmacist: *Please review for potential replacement for e-prescription and drug interaction check*Not-Taking/PRN Xolair 150 MG Solution Reconstituted 300 mg subcutaneously every 4 weeks Not-Taking/PRN Nasacort Allergy 24HR 55 MCG/ACT Aerosol 2 spray(s) intranasally once a day Not-Taking/PRN hydroCHLOROthiazide 25 MG Tablet Not-Taking/PRN amLODIPine Besylate 5 MG Tablet 1 tab(s) orally once a day Not-Taking/PRN Metoprolol Succinate ER 25 MG Tablet Extended Release 24 Hour 1 tab(s) orally once a day Not-Taking/PRN Spiriva HandiHaler 18 MCG Capsule 1 puff inhaled Qday Not-Taking/PRN predniSONE 20 MG Tablet 2 tab(s) orally once a day Not-Taking/PRN HumaLOG KwikPen 100 UNIT/ML Solution Pen-injector Not-Taking/PRN PROAIR HFA 90 MCG/INH AEROSOL 2 PUFFS INHALED Q4-6 HOURS, PRN AND PER THE ASTHMA ACTION PLAN , Notes to Pharmacist: *Please review for potential replacement for e-prescription and drug interaction check*Not-Taking/PRN Levothyroxine Sodium 150 MCG Tablet 1 tab(s) orally once a day Not-Taking/PRN FLUoxetine HCl 20 MG Capsule 1 cap(s) orally once a day Not-Taking/PRN DULoxetine HCl 60 MG Capsule Delayed Release Particles 1 cap(s) orally once a day Not- Taking/PRN Caltrate 600+D Plus Minerals 600-800 MG-UNIT Tablet 1 tab(s) orally 2 times a day Not-Taking/PRN Omeprazole 20 MG Capsule Delayed Release 1 cap(s) orally once a day Not-Taking/PRN Aspirin 81 MG Tablet Chewable 1 tab(s) chewed once a day Not-Taking/PRN Cetirizine HCl 10 MG Tablet 1 tab(s) orally once a day Not- Taking/PRN Atorvastatin Calcium 40 MG Tablet 1 tab(s) orally once a day Not-Taking/PRN Vitamin D3 50 MCG (2000 UT) Tablet as directed orally once a day Not-Taking/PRN Spiriva Respimat 1.25 MCG/ACT Aerosol Solution 2 puff(s) inhaled once a day Not- Taking/PRN Omeprazole 40 MG Capsule Delayed Release 1 cap(s) orally once a day Not- Taking/PRN Antioxidant Formula - Tablet as directed orally Not-Taking/PRN Azelastine HCl 137 MCG/SPRAY Solution 2 spray(s) intranasally BID, PRN Not-Taking/PRN HUMALOG KWIKPEN (CONCENTRATED) 200 UNITS/ML SOLUTION INJECT UP TO 56 UNITS SUBCUTANEOUSLY THREE TIMES DAILY WITH MEALS , Notes to Pharmacist: *Please review for potential replacement for e-prescription and drug interaction check*Not-Taking/PRN Methotrexate 2.5 MG TABLET 7 TAB(S) ORALLY ONCE A WEEK , Notes to Pharmacist: *Please review and pick correct strength-formulation from Medispan options. If intended option is not shown, discontinue and re-order from Quick Search*Not-Taking/PRN Rosuvastatin Calcium 10 MG Tablet 1 tab(s) orally once a day Not-Taking/PRN Toujeo Max SoloStar 300 UNIT/ML Solution Pen-injector INJECT 100 UNITS SUBCUTANEOUSLY ONCE DAILY DIRECTED Not-Taking/PRN Xiidra 5 % Solution INSTILL 1 DROP INTO EACH EYE TWICE DAILY Not-Taking/PRN Omeprazole Magnesium 20 MG Tablet Delayed Release 1 tab(s) orally once a day Not-Taking/PRN Metoprolol Succinate ER 25 MG Tablet Extended Release 24 Hour 1 tab(s) orally once a day Not-Taking/PRN Levothyroxine Sodium 125 MCG Tablet 1 tab(s) orally once a day Not-Taking/PRN DULoxetine HCl 60 MG Capsule Delayed Release Particles 1 cap(s) orally once a day Not-Taking/PRN Rosuvastatin Calcium 10 MG Tablet 1 tab(s) orally once a day Not-Taking/PRN Xarelto 10 MG Tablet 1 tab(s) orally once a day Not-Taking/PRN Methotrexate 2.5 MG TABLET DIRECTED ORALLY ONCE A WEEK , Notes to Pharmacist: *Please review and pick correct strength-formulation from Excep Apps options. If intended option is not shown, discontinue and re-order from Quick Search*Not-Taking/PRN Toujeo Max SoloStar 300 UNIT/ML Solution Pen-injector INJECT 80 UNITS SUBCUTANEOUSLY ONCE DAILY Not-Taking/PRN HUMALOG KWIKPEN (CONCENTRATED) 200 UNITS/ML SOLUTION , Notes to Pharmacist: *Please review for potential replacement for e-prescription and drug interaction check*Not-Taking/PRN SIT (TRADITIONAL) VARIABLE SEE RECORD PER SCHEDULE SC PER SCHEDULE , Notes to Pharmacist: *Please review for potential replacement for e-prescription and drug interaction check*Not- Taking/PRN Ventolin HFA 108 (90 Base) MCG/ACT Aerosol Solution INHALE 2 PUFFS BY MOUTH EVERY 4 TO 6 HOURS NEEDED AND PER THE ASTHMA ACTION PLAN 17 Not-Taking/PRN Cymbalta 30 MG Capsule Delayed Release Particles 1 cap(s) orally 2 times a day Not-Taking/PRN Doxycycline Monohydrate 100 MG Capsule 1 cap(s) orally 2 times a day Not- Taking/PRN Bystolic 10 MG Tablet Not-Taking/PRN Valtrex 1 GM Tablet 1 tab(s) orally 2 times a day Not-Taking/PRN Xolair 150 MG Solution Reconstituted Not-Taking/PRN Tradjenta 5 MG Tablet 1 tab(s) orally once a day Not-Taking/PRN Nasacort Allergy 24HR DIRECTED , Notes to Pharmacist: *Please review and pick correct strength-formulation from Medispan options. If intended option is not shown, discontinue and re-order from Quick Search*Not-Taking/PRN Mupirocin 2 % Ointment 1 august applied topically 2 times a day Not-Taking/PRN Symbicort 160-4.5 MCG/ACT Aerosol Inhale 2 puffs by mouth twice daily Medication List reviewed and reconciled with the patient * Allergies: p redniSONE: worsening hyperglycemia/hypertension - Side EffectsmetFORMIN: other reaction - Side Effectsno[Allergies Verified] Objective: * Vitals: B P:196/78mm Hg, Repeat BP:162/88, HR:90/min, RR:17/min, Pulse Oximetry:99%, Ht: 61.50 in, Wt: 121 lbs, BMI:22.49Index. * Examination: G eneral examination: General appearance: [...] ypoxemia Notes: Off day-time oxygen per pulmonary, saturation stable today 5. A llergic rhinitis due to pollen Continue CETIRIZINE HYDROCHLORIDE tablet, 10 mg, 1 tab(s), orally, once a day; C ontinue EPIPEN 2-MAKENZIE kit, 0.3 mg, 0.3 mg, intramuscularly, once, 30 day(s), 1, Refills 0; S tart Ipratropium Thorp Solution, 0.06 %, 1 spray, Nasally, Four [...] - Will continue to monitor symptoms off. 6. O ther allergic rhinitis Notes:Follow allergen [...] is due to stress over upcoming lumpectomy * Procedures: F ASENRA (benralizumab) Administration: Dosage S ubcutaneous administration: 3 0 mg (30 units) Frequency I nterval e very 8 weeks [facility] Time / Lot Number / Expiration T [place] of administration, Sonja Garcia 03/30/2024 03:52:10 PM BAR EXAMINER >, Lot Number [id number], Expiration Date 04/2026. Reaction L ocal N one Post-procedural check-out: V itals taken 30 minutes after dosing administration: BP: 175/74 P: 75 O2: 99. Medication Source F ASENRA Source B ukevin and Tomás Murguia ource Verfication: W ho pulled drug (please type name in notes)? Radha Arcos Medical necessity for in-engineering officer: T he patient or caregiver is not suitable, not competent or is physically unable to administer the FASENRA product FDA-labeled for self-administration for the following reason(s): T he location and circumstances for self-administration are not adequate for the potential treatment of anaphylaxis should that arise * Procedure Codes: 9 6160 PT-FOCUSED HLTH RISK [id number] THER/PROPH/DIAG INJ, [id number] Inj., benralizumab, 1 mg, Units: 30.00 , Modifiers: CHAS G8427 DOC MEDS VERIFIED W/PT OR [id number] TOT # ED VSTS & IP HOSP<2 [...] Administration) * Billing Information: * Visit Code: 34315 Office Visit, Est Pt., Level 4. Modifiers: 25 * Procedure Codes: 22292 PT-FOCUSED HLTH RISK ASSMT. 35369 THER/PROPH/DIAG INJ, SC/IM. J0517 Inj., benralizumab, 1 mg. Units: 30.00. Modifiers: CHAS G8427 DOC MEDS VERIFIED W/PT OR RE. G9521 TOT # ED VSTS & IP HOSP<2 PAST 12 M. * EXAMINER Sign off status: Completed true * Provider: Krysta Sotelo PA-C Date: 0 03/30/2024 Generated for Karine saldaña/Fady/eTransmitting on: 0 04/20/2024 12:25 PM BAR EXAMINER History and Physical Notes * HPI (History [...] Previously on Symbicort, now on AirDuo. Her cotton candy maker, Dr. 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 Also followed by heel gouger for her RA. Today, she reports no [...] anaphylaxis with FASENRA. Biologic administration Indication for in-engineering officer FASENRA: Discussed with patient at length options for administration of FASENRA for self-administration or in-engineering officer. Patient does not feel that they [...]
--- OUTSIDE RECORDS SUMMARY | 2024-04-20 12:50 | XMS_ITS | Continuity of Care Document ---
Author Organization [facility] Address [address] [place] [address] [address] [place] [address] Phone Care Team Providers Care Embryology Professor Name Role Phone Felipe OD, Andrew Unavailable Unavailable Advance Directives Directive Yes / No Effective Date File Name No Information Encounters Encounter Description Practice Location Reason(s) For Visit Diagnoses Date Provider Providers Copied on Encounter [facility], [address] [place], [place], [id number], [place] tel:[phone] [facility] No Information Sep-2 3-200 1 Felipe OD Andrew. [address], [place], [address], [place]. tel:[phone] Family History Family Member Type Diagnosis Age At Onset No Information Payers Payer name Insurance type Covered constitution party ID Authoriza tion(s) No Information Social History [...]
--- OUTSIDE RECORDS SUMMARY | 2024-04-20 12:50 | XMS_ITS | Referral Summary ---
Author Organization [facility] al Address [address] [place] [address] Care Team Providers Care Sticker Operator Name Role Phone David Pruitt MD Primary Care Provider Aram Oro MD Unavailable David Fried MD Unavailable [phone] Chema Foreman MD Unavailable Encounters Date Type Department Care Team Description 04/07/2024 10:28 AM MANAGER CAFE - 04/07/2024 11:59 PM MANAGER CAFE Hospital Encounter [facility] Breast Imaging [address] [place] [phone] Invasive ductal carcinoma of breast, female, right (HCC) Discharge Disposition: Discharge to home or self care 04/07/2024 11:29 AM MANAGER CAFE - 04/07/2024 11:59 PM MANAGER CAFE Hospital Encounter [facility] Medical Office Bldg 1 [facility] [address] [place] [address] Invasive ductal carcinoma of breast, female, right (HCC) Discharge Disposition: Discharge to home or self care 04/07/2024 1:00 PM MANAGER CAFE - 04/07/2024 2:35 PM MANAGER CAFE Surgery [facility] Main OR [address] [place] [address] Aram Oro MD RIGHT BREAST NEEDLE LOCALIZATION LUMPECTOMY 04/07/2024 1:05 PM MANAGER CAFE Anesthesia Event [facility] OR [address] [place] [address] Andrew Rubalcava MD Boivin, James R., MD 04/07/2024 9:38 AM MANAGER CAFE - 04/07/2024 4:40 PM MANAGER CAFE Hospital Encounter [facility] [place] [address] [place] [address] Aram Oro MD Invasive ductal carcinoma of breast, female, right (HCC) Discharge Disposition: Discharge to home or self care 04/04/2024 Telephone [facility] Medical Group Cardiology [address] [place] [address] Chema Foreman MD cardiac clearance; Abnormal ECG 03/31/2024 3:00 PM MANAGER CAFE Pre-Admission Testing [facility] Pre Admit Testing [address] [place] [address] Pre-op testing (Primary Dx); Diabetes mellitus due to underlying condition with complication (CMS/HCC) (HCC) 03/27/2024 Orders Only JAROD WINN [address] [address] Lobo Driscoll, DO Malignant neoplasm of upper-outer quadrant of right breast in female, estrogen receptor negative (HCC) 03/27/2024 3:30 PM MANAGER CAFE Office Visit [facility] Oncology [address] [place] [address] [address] [place] [phone] Lobo Driscoll, DO Malignant neoplasm of upper-outer quadrant of right breast in female, estrogen receptor positive (HCC) (Primary Dx) 03/22/2024 Orders Only [facility] Oncology [address] [place] [address] [place] [phone] Lobo Driscoll, DO Malignant neoplasm of upper-outer quadrant of right breast in female, estrogen receptor negative (HCC) (Primary Dx) 03/11/2024 10:00 AM MANAGER CAFE Consult [facility] Medical Office Building 2 Radiation Oncology [address] [place] [phone] David Fried MD Class 2 obesity (Primary Dx); Malignant neoplasm of upper-outer quadrant of right breast in female, estrogen receptor positive (HCC) 02/11/2024 2:05 PM MANAGER CAFE Lab [facility] Office Building [address] [place] [address] 01/20/2024 12:05 AM MANAGER CAFE - 01/20/2024 11:59 PM MANAGER CAFE Hospital Encounter [facility] Outside Images [address] [place] [address] Discharge Disposition: Discharge to home or self care 01/20/2024 - 01/20/2024 11:59 PM MANAGER CAFE Hospital Encounter [facility] Outside Images [address] [place] [address] Discharge Disposition: Discharge to home or self care from Last 3 Months Allergies Active Allergy Reactions Criticality Noted Date Comments Atorvastatin Muscle pain Medium 01/01/2019 Myalgias on atorvastatin 20 mg [place]-3 Fatty Acids Rash Medium 01/27/2018 Flecainide Other [...] (LEVOTHYROXINE ORAL) Take 100 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 She denies any GI sx and says EGD 2 yrs ago and [id number] this year. Discussed posssibility of gi blood loss and offered EGD/Colonoscopy. 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 Not on file Not on file Last Filed Vital Signs Vital Sign Reading Time Taken Comments Blood Pressure 138/74 04/07/2024 4:28 PM MANAGER CAFE Pulse 83 04/07/2024 4:28 PM MANAGER CAFE Temperature 36.3 C (97.4 F) 04/07/2024 3:43 PM MANAGER CAFE Respiratory Rate 18 04/07/2024 4:28 PM MANAGER CAFE Oxygen Saturation 95% 04/07/2024 4:28 PM MANAGER CAFE Inhaled Oxygen Concentration - - Weight 56.1 kg (123 lb 9.6 oz) 04/07/2024 9:50 A M MANAGER CAFE Height 154.9 cm (5' 1 ) 04/07/2024 9:50 AM MANAGER CAFE Body Mass Index 23.35 04/07/2024 9:50 AM MANAGER CAFE Plan of Treatment Not on file Medical Devices Implanted Type Area Design Engineer Marine Equipment Device Identifier Shelf Expiration Date Model / Serial / Lot Opt[employer] [place] 20ga 5cm Reposition J Curve Wire [employer] Andrew Stabilizer [id number] - [id number] Implanted:Qty: 1 on 04/07/2024 by Eleazar Gavin MD at [facility] Right: Breast [employer] [id number] 01/12/2029 [id number] / / [id number] Procedures Procedure Name Priority Date/Time Associated Diagnosis Comments POCT GLUCOSE DEVICE Routine 04/07/2024 3 :39 PM MANAGER CAFE POCT GLUCOSE DEVICE Routine 04/07/2024 3 :22 PM MANAGER CAFE POCT GLUCOSE DEVICE Routine 04/07/2024 3 :01 PM MANAGER CAFE POCT GLUCOSE DEVICE Routine 04/07/2024 2 :42 PM MANAGER CAFE RADIOLOGIC EXAMINATION OF SURGICAL SPECIMEN Schedule Routine, Read Routine (OP Routine) 04/07/2024 2:37 PM MANAGER CAFE Invasive ductal carcinoma of breast, female, right (HCC) SURGICAL PATHOLOGY Routine 04/07/2024 1: 54 PM MANAGER CAFE Invasive ductal carcinoma of breast, female, right (HCC) SC AN PROCEDURE PLACEHOLDER Routine 04/07/2024 1:17 PM MANAGER CAFE SC AN ELECTIVE SUPRAGLOTTIC AIRWAY Routine 04/07/2024 1:17 PM MANAGER CAFE LUMPECTOMY 04/07/2024 1:05 PM MANAGER CAFE RIGHT BREAST CANCER MAMMO GUIDED LOCALIZATION BREAST RIGHT Schedule Routine, Read Routine (OP Routine) 04/07/2024 12:30 PM MANAGER CAFE Invasive ductal carcinoma of breast, female, right (HCC) POCT GLUCOSE DEVICE Routine 04/07/2024 10:24 AM MANAGER CAFE EGFR Routine 03/31/2024 3:12 PM MANAGER CAFE Pre-op testing HEMOGLOBIN A1C Routine 03/31/2024 3:12 PM MANAGER CAFE Pre-op testing Diabetes mellitus due to underlying condition with complication (CMS/HCC) (HCC) CBC WITHOUT DIFFERENTIAL Routine 03/31/2024 3:12 PM MANAGER CAFE Pre-op testing BASIC METABOLIC PANEL Routine 03/31/2024 3:12 PM MANAGER CAFE Pre-op testing ECG 12-LEAD Routine 03/31/2024 3:03 PM MANAGER CAFE Pre-op testing SURGICAL PATHOLOGY Routine 03/27/2024 8: 46 AM MANAGER CAFE Malignant neoplasm of upper-outer quadrant of right breast in female, estrogen receptor negative (HCC) BREAST IMAGING US OUTSIDE REFERENCE Routine 01/20/2024 12:05 AM MANAGER CAFE BREAST IMAGING MG DIAGNOSTIC OUTSIDE REFERENCE Routine 01/20/2024 12:00 AM MANAGER CAFE POCT LIPID PANEL Routine 08/19/2021 5:01 PM CDT Mixed diabetic hyperlipidemia associated with type 2 diabetes mellitus (CMS/HCC) (HCC) from Last 3 Months or Most Recently Relevant to Health Maintenance Results * POCT glucose (04/07/2024 3:39 PM MANAGER CAFE) Glucose, POC 150 70 - 199 mg/dL Comment:Testing performed by : [address] [address] Glucose comment 1 Use This Result KISHA TOWNSEND Comment:Testing performed by : [address] [address] Blood 04/07/2024 3:39 PM MANAGER CAFE 04/07/2024 3:39 PM MANAGER CAFE us Aram Oro MD LAB POCT ORDERABLES - DEVIC E Final Result KISHA [address] [facility] Department [place] [address] * POCT glucose (04/07/2024 3:22 PM MANAGER CAFE) Glucose, POC 81 70 - 199 mg/dL Comment:Testing performed by : [address] [address] Blood 04/07/2024 3:22 PM MANAGER CAFE 04/07/2024 3:22 PM MANAGER CAFE Aram Oro MD LAB POCT ORDERABLES - DEVIC E Final Result Performing Organization Address [facility] Co de Phone Number KISHA [address] [email or web address] [place] [address] * (ABNORMAL) POCT glucose (04/07/2024 3:01 PM MANAGER CAFE) Glucose, POC 59(L) 70 - 199 mg/dL Comment:Testing performed by : [address] [address] Glucose comment 1 Use This Result KISHA Comment:Testing performed by : [address] [address] Glucose comment 2 RN/MD Notified KISHA Comment:Testing performed by : [address] [address] Blood 04/07/2024 3:01 PM MANAGER CAFE 04/07/2024 3:01 PM MANAGER CAFE Aram Oro MD LAB POCT ORDERABLES - DEVIC E Final Result Performing Organization Address [facility] Co de Phone Number KISHA [address] [email or web address] [address] * (ABNORMAL) POCT glucose (04/07/2024 2:42 PM MANAGER CAFE) Glucose, POC 62(L) 70 - 199 mg/dL Comment:Testing performed by : [address] [address] Glucose comment 1 Use This Result KISHA Comment:Testing performed by : [address] [address] Glucose comment 2 RN/MD Notified KISHA Comment:Testing performed by : [address] [address] Blood 04/07/2024 2:42 PM MANAGER CAFE 04/07/2024 2:42 PM MANAGER CAFE us Aram Oro MD LAB POCT ORDERABLES - DEVIC E Final Result KISHA [address] [facility] Department [place] [address] * Radiologic Examination of Surgical Specimen (04/07/2024 2:37 PM MANAGER CAFE) Anatomical Region Laterality Modality Breast N/A Mammography 04/07/2024 2:07 PM MANAGER CAFE Narrative 04/07/2024 2:12 PM MANAGER CAFE EXAM DESCRIPTION: MAMMO GUIDED LOCALIZATION BREAST RIGHT; [...] a lateral approach using a 5 cm [place] needle. Appropriate positioning of the needle and [...] by Eleazar Gavin M.D., MD: Report ID: [id number] [facility] us Aram Oro MD IMG MAMMO PROCEDURES Final Result * Surgical pathology (04/07/2024 1:54 PM MANAGER CAFE) Tissue (Breast, lumpectomy) 04/07/2024 1:54 PM MANAGER CAFE Narrative PATHOLOGY [facility] - 04/14/2024 6:26 PM MANAGER CAFE [facility] Department of Pathology [address] [place] [address] Note to Patients: This report may contain [...] : 1945 (Age: 78) Gender: F Address: [address] [place] [phone] Hospital #: [id number] Service: Surgery Location: Patient Type: [facility] OUTPATIENT Taken: 04/07/2024 Received: 04/07/2024 Accessioned: [...] Biomarker Testing performed on Previous Case: (OSC: [id number], 01/20/24) Estrogen Receptor (ER): Positive Rambo score [...] margin (closest margin). By Twila Bazzi MS, ([facility])CM Microscopic Description: The invasive carcinoma correlates [...] Lateral margin/slice 15, perpendicularly sectioned Jar: 1 [facility]/04/07/2024 14:25 Twila Bazzi MS, PA (ASC Microscopic slide review and interpretation for this case was performed at [facility], Department of Surgical Pathology, [address] [facility] [place], [place] [id number], [place] [address] CLIA # [id number] us Aram Oro MD LAB PATHOLOGY ORDERABLES Fi nal Result PATHOLOGY MB * SC AN ELECTIVE SUPRAGLOTTIC AIRWAY, SC AN PROCEDURE PLACEHOLDER (04/07/2024 1:17 PM MANAGER CAFE) Narrative Kin Lynch CRNA - 04/07/2024 1:17 PM MANAGER CAFE Kin Lynch CRNA 04/07/2024 1:18 PM Airway Patient location: OR Urgency: elective Indications for airway management: anesthesia Difficult airway: no Staff: Placed by: CRUISE GUIDE: Kin Lynch CRNA Emergent airway documentation: Risks [...] Guided Localization Breast Right (04/07/2024 12:30 PM MANAGER CAFE) Anatomical Region Laterality Modality Breast Right Mammography, Com puted Radiography 04/07/2024 2:07 PM MANAGER CAFE Narrative 04/07/2024 2:12 PM MANAGER CAFE EXAM DESCRIPTION: MAMMO GUIDED LOCALIZATION BREAST RIGHT; [...] a lateral approach using a 5 cm [place] needle. Appropriate positioning of the needle and [...] by Eleazar Gavin M.D., MD: Report ID: [id number] [facility] Aram Oro MD [facility] MAMMO PROCEDURES Final Result * POCT glucose (04/07/2024 10:24 AM MANAGER CAFE) Glucose, POC 85 70 - 199 mg/dL Comment:Testing performed by : [address] [address] Glucose comment 1 Use This Result KISHA Comment:Testing performed by : [address] [address] Blood 04/07/2024 10:2 4 AM MANAGER CAFE 04/07/2024 10:24 AM MANAGER CAFE us Aram Oro MD LAB POCT ORDERABLES - DEVIC E Final Result Performing Organization Address [facility] Co de Phone Number KISHA [address] [place] [address] * eGFR (03/31/2024 3:12 PM MANAGER CAFE) eGFR >90 >=60 mL/min/1. 73 m2 Comment: [...] was last reviewed 2020. Testing performed by: [address] [address] Blood 03/31/2024 3:12 PM MANAGER CAFE 03/31/2024 3:23 PM MANAGER CAFE us Eleazar Ibrahim MD LAB BLOOD ORDERABL ES Final Result Performing Organization Address [facility] Co de Phone Number KISHA [facility] [place] [address] * (ABNORMAL) CBC without differential (03/31/2024 3:12 PM MANAGER CAFE) WBC 6.6 3.8 - 9.9 K/cumm Comment:Testing performed by : [address] [address] Hgb 11.0(L) 11.9 - 15.5 g/dL KISHA Comment:Testing performed by : [address] [address] Hct 33.8(L) 35.6 - 45.5 % KISHA Comment:Testing performed by : [address] [address] Plt 300 150 - 400 K/cumm KISHA Comment:Testing performed by : [address] [address] MPV 9.9 9.1 - 12.3 fL KISHA Comment:Testing performed by : [address], [address] RBC 3.83(L) 3.90 - 5.20 M/cumm KISHA Comment:Testing performed by : [address], [address] MCV 88.3 81.3 - 96.4 fL KISHA Comment:Testing performed by : [address] [address] MCH 28.7 27.1 - 33.3 pg KISHA Comment:Testing performed by : [address], [address] MCHC 32.5 32.3 - 35.7 g/dL KISHA Comment:Testing performed by : [address], [address] RDW CV 14.9 11.1 - 14.9 % KISHA Comment:Testing performed by : [address] [address] RDW SD 48.0 35.7 - 48.1 fL KISHA Comment:Testing performed by : [address], [address] NRBC abs 0.00 0.00 - 0.01 K/cumm KISHA Comment:Testing performed by : [address], [address] Blood 03/31/2024 3:12 PM MANAGER CAFE 03/31/2024 3:22 PM MANAGER CAFE Narrative KISHA - 03/31/2024 3:28 PM MANAGER CAFE PRE SURGICAL TESTING ONLY--04/07/2024-RIGHT BREAST NEEDLE LOCALIZATION LUMPECTOMY: -Surgeons and Role: * Aram Oro MD - Primary-@ANPROCEDURE@ Eleazar Ibrahim MD LAB BLOOD ORDERABL ES Final Result Performing Organization Address [facility] Co de Phone Number KISHA [address] [place] [address] * (ABNORMAL) Hemoglobin A1c (03/31/2024 3:12 PM MANAGER CAFE) Hgb A1C 5.9(H) 4.0 - 5.6 % Comment:Testing performed by : [address] [address] Estimated Average Glucose 123 mg/dL DANNYELVIN Comment: The ADA recommends reporting an estimated Average Glucose (eAG) with all Hemoglobin A1c results using the equation derived from a study of 507 normal and diabetic adults. Minority populations were underrepresented and children were not included. (Diabetes Care 31:0415-2071, 2008). The eAG is not equivalent to a fasting glucose. Testing performed by: [address] [address] Blood 03/31/2024 3:12 PM MANAGER CAFE 03/31/2024 3:22 PM MANAGER CAFE Narrative [facility] - 03/31/2024 5:28 PM MANAGER CAFE PRE SURGICAL TESTING ONLY--04/07/2024--Surgeons and Role: * Aram Oro MD - Primary-@ANPROCEDURE@ Eleazar Ibrahim MD LAB BLOOD ORDERABL ES Final Result Performing Organization Address [facility] Co de Phone Number KISHA [address] [facility] [email or web address] [address] * (ABNORMAL) Basic metabolic panel (03/31/2024 3:12 PM MANAGER CAFE) Sodium 142 135 - 145 mmol/L Comment:Testing performed by : [address] [address] Potassium, pl 3.3 3.3 - 4.9 mmol/L KISHA Comment:Testing performed by : [address] [address] Chloride 104 97 - 110 mmol/L KISHA Comment:Testing performed by : [address], [place]., [address] CO2 28 22 - 32 mmol/L KISHA Comment:Testing performed by : [address] [address] Anion gap 10 2 - 15 mmol/L KISHA Comment:Testing performed by : [address] [address] BUN 9 6 - 25 mg/dL KISHA Comment:Testing performed by : [address] [address] Creatinine 0.48(L) 0.60 - 1.10 mg/dL KISHA Comment:Testing performed by : [address] [address] Glucose 81 70 - 199 mg/dL KISHA [...] was last revised 2022. Testing performed by: [address] [address] Calcium 9.3 8.5 - 10.3 mg/dL KISHA Comment:Testing performed by : [address] [address] Blood 03/31/2024 3:12 PM MANAGER CAFE 03/31/2024 3:23 PM MANAGER CAFE Narrative KISHA - 03/31/2024 3:53 PM MANAGER CAFE PRE SURGICAL TESTING ONLY--04/07/2024-RIGHT BREAST NEEDLE LOCALIZATION LUMPECTOMY: -Surgeons and Role: * Aram Oro MD - Primary- Eleazar Ibrahim MD LAB BLOOD ORDERABL ES Final Result Performing Organization Address [facility] Co de Phone Number KISHA [address] [facility] Department [place] [address] * ECG 12 lead (03/31/2024 3:03 PM MANAGER CAFE) Pathologist [facility] Ventricular Rate EKG/Min 71 BPM [facility] Atrial Rate 71 BPM [facility] SC-Interval (MSEC) 262 ms [facility] QRS-Interval (MSEC) 78 ms [facility] QT-Interval (MSEC) 428 ms [facility] QTc 465 ms [facility] P Stevenson 56 degrees [facility] R Stevenson 4 degrees [facility] T Stevenson 67 degrees [facility] Diagnosis Sinus rhythm with 1st degree A-V block Septal infarct , age undetermined Abnormal ECG When compared with ECG of 19-OCT-1992 11:15, SC interval has increased Septal infarct is now Present Confirmed by REY YOUNG M.D. ([id number]) on 04/03/2024 8:59:18 PM [facility] 03/31/2024 3:03 PM MANAGER CAFE 04/03/2024 8:59 PM MANAGER CAFE Eleazar Ibrahim MD ECG ORDERABLES Fi nal Result Performing Organization Address City/[facility]/ZIP Co de Phone Number [facility] * Surgical pathology (03/27/2024 8:46 AM MANAGER CAFE) Tissue (Miscellaneous) 03/27/2024 8:46 AM MANAGER CAFE 03/27/2024 8:46 AM MANAGER CAFE Narrative [facility] PATHOLOGY LAB - 03/30/2024 6:05 PM MANAGER CAFE EPIC results best viewed via link to PDF [facility] Pathology Consult Service [address], [place] [address] Note to Patients: This report may [...] SURGICAL PATHOLOGY REPORT * Consult Report * [facility] is providing an additional review of previously collected tissue. FINAL Patient Name: RULA GOLDSTEIN Address: [address] [place] [phone] Gender: F : 1945 (Age: 78) Hospital #: [id number] Patient Type: SUBHASH Location: UNKNOWN Taken: 03/27/2024 Received: 03/27/2024 Accessioned: 03/27/2024 Reported: 03/30/2024 Physician(s): Dr. Lobo Driscoll D.O. [facility] Department of Pathology [address] [place] [address] P: [phone] F: [phone] Diagnosis: Consult material received from [place], [place] (OSC: [id number]; 01/20/2024) Breast, right, 10:00, 4.5 cm from nipple, core biopsy - Invasive ductal carcinoma - Greatest microscopic dimension = 5 mm - Histologic grade = 2/3 (tubules 3 + nuclei 2 + mitoses 1 = 6/9) by ESBR criteria - Biomarkers (slides are provided for review) - ER by IHC: positive, Rambo score 8/8 - SC by IHC: positive, Rambo score 7/8 - Her-2 by IHC: Equivocal (score 2+); FISH negative, per report - Ki-67 Index: 5-10% - 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 The material originates from [place], [place] . Selected slide(s) may be digitally scanned for our files, and all materials are returned to the referring institution, along with a copy of our final report. Any testing required for diagnostic purposes was performed in the Department of Pathology and Immunology at [facility], [address] [place] [address] CLIA # [id number] The performance characteristics of the testing cited in this report (if any) were determined by the [facility] Department of Pathology and Immunology [facility], as part of an ongoing quality assurance advisor program and in compliance with federally mandated [...] and the performance characteristics determined by the [facility], [facility] Department of Pathology and Immunology. It has not been cleared or approved by the U.S. Food and Drug Administration. Any test designated as LDT was developed and its performance characteristics determined by [facility]. It has not been cleared or approved by the FDA. This test is used for clinical purposes and should not be regarded as investigational or for research. Report images and/or scanned reports, if included, only viewable in PDF version of report. us Lobo Driscoll DO LAB PATHOLOGY ORDERABLES Fin al Result [facility] LAB [address] [address] * Breast Imaging US Outside Reference (01/20/2024 12:05 AM MANAGER CAFE) Narrative MYLES_KRISTIANE - 03/20/2024 1:35 PM MANAGER CAFE This order has been auto-finalized and does not contain a result. us Provider Transcribed Order IMG MAMMO PROCEDURES Final Result Performing Organization Address [facility] Co de Phone Number [email or web address] * Breast Imaging Diagnostic Outside Reference (01/20/2024 12:00 AM MANAGER CAFE) Narrative MYLES_KRISTIANE - 03/20/2024 1:35 PM MANAGER CAFE This order has been auto-finalized and does not contain a result. us Provider Transcribed Order IMG MAMMO PROCEDURES Final Result Performing Organization Address [facility] Co de [...] Recently Relevant to Health [place] [address] MEDICARE [facility] MEDICARE [facility] MEDICARE [facility] Care Teams Sticker Operator Relationship Specialty Start Date End Date David Pruitt MD [address] [place] [address] PCP - General Family Medicine 06/30/17 Aram Oro MD [address] [place] [address] Consulting Physician Surgery 02/29/24 David Fried MD [address] [place] [address] [address] [place] [address] Radiation Oncologist Radiation Oncology 02/29/24 Chema Foreman MD [address] [place] [address] [place] [id number] Consulting Physician Interventional Cardiology 03/17/24
--- OUTSIDE RECORDS SUMMARY | 2024-04-20 12:50 | XMS_ITS | Encounter Summary ---
Author Organization [facility] Address [address] [place] [id number] Care Team Providers Care Printing Agent Name Role Phone Forrest Wheat DO Primary Care Provider [phone] David Pruitt MD Primary Care Provider [phone] Encounter Details Date Type Department Care Team (Late st Contact Info) Description 08/06/2018 Abstract [facility] CONVERSION [address] [place] [address] , Yoly Manrique MD Social History Tobacco [...] on filedocumented in this encounter Care Teams Printing Agent Relationship Specialty Start Date End Date Forrest Wheat DO [address] [place] [address] PCP - General 05/04/16 10/08/21 David Pruitt MD [address] [facility] [address] [place] [address] PCP - General FAMILY PRACTICE 10/09/21 documented as of this encounter
[2024-04-20 12:51] LABS: Basophils Percent Auto 0.1 % (0.2-1.2); Hemoglobin 11.5 g/dL (12.0-15.0); Immature Granulocyte Absolute 0.02 K/mm3 (0.00-0.031); Immature Granulocyte Percent A 0.2 % (0-0.5); Lymphocytes Absolute Auto 2.47 K/mm3 (0.9-3.2); Mean Corpuscular HGB Conc 31.9 g/dl (32-36); Mean Corpuscular Hemoglobin 28.4 pg (26-34); Mean Corpuscular Volume 88.9 fl (80-100); Mean Platelet Volume 9.7 fl (7.4-10.4); Monocytes Absolute Auto 0.5 K/mm3 (0.1-0.6); Monocytes Percent Auto 5.9 % (2.6-8.5); Neutrophils Absolute Auto 5.5 K/mm3 (1.3-6.7); Neutrophils Percent Auto 64.8 % (45.5-73.1); Platelet Count Result 347 k/mm3 (150-375); Red Blood Count 4.05 M/mm3 (4.2-5.4); Red Cell Distribution Width 14.6 % (11.5-14.5); White Blood Count 8.5 K/mm3 (4.5-10.0)
[2024-04-20 13:02] LABS: Alanine Aminotransferase 24 U/L (6-35); Alkaline Phosphatase 147 U/L (38-126); Anion Gap 10 mmol/L (4-12); Aspartate Amino Transferase 29 U/L (14-36); Bilirubin,Total 0.6 mg/dL (0.2-1.3); Blood Urea Nitrogen 14 mg/dL (7-17); Calcium 8.6 mg/dL (8.4-10.2); Carbon Dioxide 28 mmol/L (22-30); Chloride 98 mmol/L (98-107); Estimated CRCL calculation 59 ml/min; Estimated Glomerular Filt Rate > 60; Glucose 184 mg/dL (65-110); Prothrombin Time 13.8 Seconds (11.1-14.7); Sodium 136 mmol/L (137-145)
[2024-04-20 13:03] LABS: Partial Thromboplastin Time 34.6 Seconds (22.3-36.8)
[2024-04-20 13:11] LABS: Estimated CRCL calculation 48 ml/min; Estimated Glomerular Filt Rate > 60
[2024-04-20 13:13] LABS: Troponin I < 0.012 ng/mL (0.000-0.034)
[2024-04-20] MEDS: POTASSIUM CHLORIDE 20 MEQ ER TABLET 40 MEQ PO (13:18)
[2024-04-20] MEDS: hydrALAZINE HCL 20 MG/ML VIAL 10 MG IV PUSH ×2 (13:23→15:22)
--- NOTE | 2024-04-20 13:39 | ED.NEUROSD ---
HPI - Neuro Symptoms/Deficit General Chief Complaint: Neuro Symptoms/Deficit Stated Complaint: left facial numbness, LUE numbness, now resolved Time Seen by Provider: 04/20/24 12:29 History of Present Illness HPI Narrative: Patient is an 78-year-old female who presents ER with reports of stroke-like symptoms. Around 10:00 a.m. she began having numbness in her left arm as well as her left face. It lasted for 45 minutes. No reports of dysarthria or aphasia. Significant other reports she was dropping her phone around 01 13. Patient denies weakness in reports that she has arthritis that causes her to drop things. Has history of AFib in takes Xarelto. She was recently off her Xarelto for few days to have a lumpectomy but she restarted at last week. No chest pain or chest pressure. Reports she has not yet taken her morning blood pressure medicines. Related Data Home Medications ?Medication ?Instructions ?Recorded ?Confirmed ?Last Taken ?Type metoprolol succinate 25 mg 25 mg PO HS 11/17/19 02/14/24 11/22/19 05:00 History tablet,extended release 24 hr albuterol sulfate 90 mcg/actuation 90 mcg inhalation PRN PRN 12/04/19 02/14/24 Unknown History aerosol inhaler (Ventolin HFA) Shortness Of Breath rosuvastatin 10 mg tablet 10 mg PO HS 12/04/19 02/14/24 Unknown History folic acid 1 mg tablet 1 mg PO DAILY 05/07/20 02/14/24 Unknown History duloxetine 30 mg capsule,delayed 30 mg PO DAILY 10/04/20 02/14/24 Unknown History release lifitegrast 5 % eye drops in a 1 drp EACH EYE BID 10/05/20 02/14/24 Unknown History dropperette (Xiidra) diltiazem HCl 180 mg 180 mg PO DAILY 06/18/21 02/14/24 Unknown History capsule,extended release 24 hr (Cartia XT) methotrexate sodium 2.5 mg tablet 2.5 mg PO WEEKLY 10/21/21 02/14/24 Unknown History leflunomide 20 mg tablet 20 mg PO DAILY 10/15/22 02/14/24 Unknown History potassium chloride 10 mEq 10 meq PO DAILY 11/03/22 02/14/24 Unknown History tablet,extended release Allergies Allergy/AdvReac Type Severity Reaction Status Date / Time shellfish derived Allergy Severe HIVES/RASH Verified 02/14/24 15:29 shrimp Allergy Severe RASH/HIVES Verified 02/14/24 15:29 celecoxib Allergy Intermediate RASH/HIVES Verified 02/14/24 15:29 fish oil Allergy Intermediate RASH/HIVES Verified 02/14/24 15:29 metformin Allergy Unknown Chest Pain Verified 02/14/24 15:29 Review of Systems Review of Systems: All systems reviewed & are unremarkable except as noted in HPI and below Constitutional: Constitutional: Reports no additional constitutional complaints ENT: Reports system reviewed and no additional complaints, except as documented Cardiovascular: Cardiovascular: Reports no additional cardiovascular complaints Respiratory: Respiratory: Reports no additional respiratory complaints Gastrointestinal: Gastrointestinal: Reports no additional gastrointestinal complaints Musculoskeletal: Musculoskeletal: Reports no additional musculoskeletal complaints Neurologic: Reports system reviewed and no additional complaints, except as documented [facility] Past Medical History Medical History (Updated 04/20/24 @ 17:53 by Percy Emerson MD) GERD (gastroesophageal reflux disease) Paroxysmal atrial fibrillation (~12/2020) Echocardiogram 12/2020: Normal left ventricular systolic function EF 65-70%, mildly increased left ventricular wall thickness, diastolic function abnormal, global longitudinal strain abnormal at -15%, left atrial chamber mildly enlarged, mild mitral valve regurgitation, mild tricuspid regurgitation Asthma-COPD overlap syndrome PFTs 06/03/2021: Moderately severe obstructive abnormality without significant improvement with bronchodilator. Diffusion capacity normal. Lung volumes normal. Adult BMI 30+ Hypothyroidism (acquired) Obesity Obstructive sleep apnea Intolerant to CPAP. Diverticulitis Colon polyps Vitiligo Cancer of left breast Diabetic peripheral neuropathy Insulin dependent type 2 diabetes mellitus Hemoglobin A1c 10.02 April 2020 Depression with anxiety Rheumatoid arthritis Hypertension Degenerative joint disease of knee Osteopenia Surgical History Surgical History History of fusion of cervical spine History of cardiac catheterization Unremarkable per patient report. History of bilateral cataract extraction History of colonoscopy with polypectomy History of incision and drainage (05/2018) Right cheek abscess. History of hysterectomy History of appendectomy History of cholecystectomy History of thyroidectomy History of left mastectomy Family History Family History Father Diabetes mellitus Hypertension Cerebrovascular accident Family history of malignant melanoma Mother Diabetes mellitus Hypertension Family history of lung cancer Sibling Family history of malignant melanoma Other Family history of cardiovascular disease Family history of malignant neoplasm Malignant neoplasm of prostate Social History Social History Social History: Surrogate decision maker: Smith Goldstein, . Code status: Full code. Smoking packs per day: 3 Smoking cigarettes per day: 60.0 Years smoked: 60 Smoking pack-years: 180.00 Smoking status: Former smoker Tobacco type: cigarettes Second hand tobacco smoke exposure: Yes Additional smoking assessment comments: quit in 1998 Alcohol intake: never Substance use: never Substance use type: does not use Lack of Transportation: No Lack of Food: Never True Current Housing: I Have Housing Concerned About Future Housing: No Difficulty Paying Gas/Electric Bills: No Difficulty Paying for Meds: No Currently Unemployed: No Education: High School Diploma/GED Difficulty w/ Childcare or Family Care: No Living arrangements: with family Additional living arrangements comments: The patient lives in [place] with her . 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 Gender identity (if verbalized by the patient): Female Sexual Orientation (if Verbalized by the Patient): Straight or Heterosexual Spiritual care concerns: No Exam Narrative: GENERAL: Well-appearing, well-nourished, and in no acute distress. HEAD: Normocephalic, atraumatic. ENT: Mucous membranes moist. NECK: Supple. CHEST: Clear to auscultation. No respiratory distress. HEART: Regular rate and rhythm. Normal peripheral pulses. ABDOMEN: Soft, nontender, nondistended. EXTREMITIES: Normal range of motion. No edema. SKIN: Warm, dry, no rash. NEURO: See NIH stroke scale. Left upper extremity drift. Alert and oriented x3. PSYCH: Normal mood and affect. Course Course Emergency Course: Patient family informed diagnosis and treatment plan. Permissive hypertension in the 180s. Patient on Xarelto. Accepted at [facility] by Dr. Hall. Will arrange transport. Vital Signs Vital signs: Vital Signs Temperature 97.1 F L 04/20/24 12:23 Pulse Rate 87 04/20/24 12:23 Respiratory Rate 18 04/20/24 12:23 Blood Pressure 213/91 H 04/20/24 12:23 Pulse Oximetry 99 04/20/24 12:23 Oxygen Delivery Room Air 04/20/24 12:23 Temperature 97.7 F 04/20/24 16:31 Pulse Rate 112 H 04/20/24 16:46 Respiratory Rate 18 04/20/24 16:46 Blood Pressure 173/76 H 04/20/24 16:46 Pulse Oximetry 97 04/20/24 16:46 Oxygen Delivery Room Air 04/20/24 12:23 MDM - Neuro Symptoms/Deficit Lab Data 04/20/24 12:45 04/20/24 12:58 Labs: Lab Results 04/20/24 04/20/24 Range/Units 12:45 12:58 WBC 8.5 (4.5-10.0) K/mm3 RBC 4.05 L (4.2-5.4) M/mm3 Hgb 11.5 L (12.0-15.0) g/dL Hct 36.0 L (37.0-47.0) % MCV 88.9 (80-100) fl MCH 28.4 (26-34) pg MCHC 31.9 L (32-36) g/dl RDW 14.6 H (11.5-14.5) % Plt Count 347 (150-375) k/mm3 MPV 9.7 (7.4-10.4) fl Immature Gran % (Auto) 0.2 (0-0.5) % Neut % (Auto) 64.8 (45.5-73.1) % Lymph % (Auto) 29.0 (18.3-44.2) % [place] % (Auto) 5.9 (2.6-8.5) % Eos % (Auto) 0.0 (0-4.4) % Baso % (Auto) 0.1 L (0.2-1.2) % Lymph # (Auto) 2.47 (0.9-3.2) K/mm3 [place] # (Auto) 0.5 (0.1-0.6) K/mm3 Eos # (Auto) 0.0 (0-0.3) K/mm3 Baso # (Auto) 0.0 (0.0-0.1) K/mm3 Abs Immat Gran (auto) 0.02 (0.00-0.031) K/mm3 Absolute Neuts (auto) 5.5 (1.3-6.7) K/mm3 Absolute Nucleated RBC 0.000 (0.0-0.012) K/mm3 Nucleated RBC % 0.0 (0.0-0.2) % PT 13.8 (11.1-14.7) Seconds INR 1.0 APTT 34.6 (22.3-36.8) Seconds Sodium 136 L (137-145) mmol/L Potassium 3.0 L (3.4-5.0) mmol/L Chloride 98 (98-107) mmol/L Carbon Dioxide 28 (22-30) mmol/L Anion Gap 10 (4-12) mmol/L BUN 14 (7-17) mg/dL Creatinine 0.48 L 0.60 L (0.7-1.0) mg/dL Estim Creat Clear Calc 59 48 ml/min Estimated GFR > 60 > 60 (59 - ) Glucose 184 H (65-110) mg/dL Calcium 8.6 (8.4-10.2) mg/dL Total Bilirubin 0.6 (0.2-1.3) mg/dL AST 29 (14-36) U/L ALT 24 (6-35) U/L Alkaline Phosphatase 147 H (38-126) U/L Troponin I < 0.012 (0.000-0.034) ng/mL Total Protein 7.0 (6.3-8.2) g/dL Albumin 4.0 (3.5-5.1) g/dL Imaging Data Radiologist's impression: ITS Impressions Head/Neck CTA 04/20/24 13:12 IMPRESSION: 1. 80% stenosis of the right carotid bulb relative to normal distal artery lumen diameter (NASCET criteria). 2. 60% stenosis of the left carotid bulb relative to normal distal artery lumen diameter. 3. Mild nonhemodynamically stenosis at bilateral carotid siphons and at the proximal distal intracranial portion of the left vertebral artery 4. 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 No other intracranial aneurysms, hemodynamically significant stenosis or thrombosis. 4. Mild emphysema. Chest X-Ray 04/20/24 14:04 IMPRESSION: 1. No acute cardiopulmonary disease. Discharge Plan Discharge Clinical Impression: Suspected cerebrovascular accident Patient Disposition: Acute Care Hospital Condition: Stable Patient Language: Ukrainian Prescriptions: No Action albuterol sulfate [Ventolin HFA] 90 mcg/actuation HFA aerosol inhaler 90 mcg INHALATION PRN PRN (Reason: Shortness Of Breath) rosuvastatin 10 mg Tablet 10 mg PO HS methotrexate sodium 2.5 mg tablet 2.5 mg PO WEEKLY Rx Instructions: Take 10 pills once a week folic acid 1 mg tablet 1 mg PO DAILY Baqsimi 3 mg/actuation spray,non-aerosol 3 mg intranasal ONCE PRN (Reason: hypoglycemia) Qty: 1 0RF Rx Instructions: as a single dose leflunomide 20 mg tablet 20 mg PO DAILY potassium chloride 10 mEq tablet extended release 10 meq PO DAILY tiotropium bromide 1.25 mcg/actuation mist 1 puff inhalation DAILY Qty: 4 6RF (DME) FreeStyle Dmitry 2 Sensor Kit See Rx Instructions .Route Qty: 6 1RF Rx Instructions: As directed metoprolol succinate 25 mg tablet extended release 24 hr 25 mg PO HS duloxetine 30 mg capsule,delayed release(DR/EC) 30 mg PO DAILY Xiidra 5 % dropperette 1 drp EACH EYE BID Xarelto 20 mg Tablet 20 mg PO DAILY@1700 Qty: 6 1RF diltiazem HCl [Cartia XT] 180 mg capsule,extended release 24hr 180 mg PO DAILY ondansetron 4 mg tablet,disintegrating 4 mg PO Q8H PRN (Reason: nausea and vomiting) Qty: 10 1RF hydrochlorothiazide 25 mg tablet See Rx Instructions .ROUTE .COMPLEX Qty: 90 3RF Dose Instruction: TAKE 1 TABLET BY MOUTH IN THE MORNING Rx Instructions: TAKE 1 TABLET BY MOUTH IN THE MORNING insulin glargine U-300 conc [Toujeo Max U-300 SoloStar] 300 unit/mL (3 mL) insulin pen 30 unit subcut DAILY 90 Days Qty: 9 1RF (DME) pen needle, diabetic [BD Ultra-Fine Short Pen Needle] 31 gauge x 5/16 needle See Rx Instructions .ROUTE .COMPLEX Qty: 200 0RF Dose Instruction: USE NEW PEN NEEDLE 4 TIMES DAILY Rx Instructions: USE NEW PEN NEEDLE 4 TIMES DAILY losartan 50 mg tablet 50 mg PO DAILY Qty: 90 2RF levothyroxine 88 mcg tablet See Rx Instructions .ROUTE .COMPLEX Qty: 90 0RF Dose Instruction: Take 1 tablet by mouth once daily Rx Instructions: Take 1 tablet by mouth once daily duloxetine 60 mg capsule,delayed release(DR/EC) 60 mg PO HS Qty: 90 2RF omeprazole 40 mg capsule,delayed release(DR/EC) 40 mg PO DAILY Qty: 30 5RF tirzepatide 7.5 mg/0.5 mL pen injector 7.5 mg subcut WEEKLY 90 Days Qty: 6.5 1RF Follow-up/Referrals: David Pruitt MD [Primary Care Provider] - Quality Stroke Scale Stroke Scale 1: Stroke scale date:: 04/20/24 1a Level of consciousness: alert-0 1b Level of consciousness questions: answers both correctly-0 1c Level of consciousness commands: obeys both correctly-0 2 Best gaze: normal-0 3 Visual: no visual loss-0 4 Facial palsy: normal-0 5a Motor: left arm: drift-1 5b Motor: right arm: no drift-0 6a Motor: left leg: no drift-0 6b Motor: right leg: no drift-0 7 Limb ataxia: present in one limb-1 8 Sensory: normal-0 9 Best language: no aphasia-0 10 Dysarthria: normal-0 11 Extinction and inattention: no abnormality-0 Level:: 2
== END 2024-04-20 20:25 | disposition short-term general hospital (02) ==
PROVIDERS: Emergency Provider Emergency Medicine; PCP Family Medicine
DX: R20.0 Anesthesia of skin (principal); I48.0 Paroxysmal atrial fibrillation; I10 Essential (primary) hypertension; E11.9 Type 2 diabetes mellitus without complications; E89.0 Postprocedural hypothyroidism; J43.9 Emphysema, unspecified; K21.9 Gastro-esophageal reflux disease without esophagitis; M06.9 Rheumatoid arthritis, unspecified; M19.90 Unspecified osteoarthritis, unspecified site; M85.80 Other specified disorders of bone density and structure, unspecified site; G47.33 Obstructive sleep apnea (adult) (pediatric); F41.8 Other specified anxiety disorders; Z98.1 Arthrodesis status; Z85.3 Personal history of malignant neoplasm of breast; Z86.0100 Personal history of colon polyps, unspecified; Z87.891 Personal history of nicotine dependence; Z98.42 Cataract extraction status, left eye; Z98.41 Cataract extraction status, right eye; Z90.710 Acquired absence of both cervix and uterus; Z90.49 Acquired absence of other specified parts of digestive tract; Z90.12 Acquired absence of left breast and nipple; Z79.01 Long term (current) use of anticoagulants; Z79.4 Long term (current) use of insulin; Z79.899 Other long term (current) drug therapy; Z79.85 Long-term (current) use of injectable non-insulin antidiabetic drugs; I72.6 Aneurysm of vertebral artery; I65.23 Occlusion and stenosis of bilateral carotid arteries; I65.02 Occlusion and stenosis of left vertebral artery
CPT/HCPCS: 36415; 70496; 70498; 71045; 80053; 84484; 85025; 85610; 85730; 93005; 96374; 99285; A9270; J0360; Q9967

== ENCOUNTER 2024-08-07 13:42 | Observation (INO) | payer MEDICARE, SELFPAY ==
[2024-08-07] VITALS (10 sets, daily range): BP systolic 95–188; BP diastolic 66–91; PULSE 77–99; RESP 16–18; TEMP 36.4–36.6; O2SAT 96–100; BMI 24.1
--- NOTE | ~2024-08-07 | CT_ITS ---
EXAMINATION: CT brain wo con DATE: 08/07/2024 15:15 INDICATION: Fall with head injury TECHNIQUE: Computed tomography (CT) of the head was performed without intravenous contrast. Sagittal and coronal reconstructions were performed. The mA was adjusted according to patient size. Iterative reconstruction technique was employed. The dose-length product was 605.33 mGy-cm. COMPARISON: head CT dated 04/20/2024 FINDINGS: No fracture. No acute intracranial hemorrhage, acute infarction or abnormal extra axial fluid collect ion. There is moderate scattered white matter hypoattenuation consistent with chronic small vessel is chemic disease. Symmetric prominence of the sulci and ventricles consistent with moderate age-appropr iate diffuse cerebral volume loss. No mass/mass effect. Changes of bilateral intraocular lens replace ment. The orbits and mastoid air cells are normal. Mild mucosal thickening in the ethmoid sinuses. IMPRESSION: 1. No fracture or acute intracranial process. 2. Age-related changes including moderate diffuse volume loss and moderate scattered white matter hyp oattenuation consistent with chronic small vessel ischemic disease. Reviewed, dictated and finalized at location A. IMPRESSION: 1. No fracture or acute intracranial process. 2. Age-related changes including moderate diffuse volume loss and moderate scat tered white matter hypoattenuation consistent with chronic small vessel ischemi c disease.
--- NOTE | ~2024-08-07 | CT_ITS ---
CT cervical spine wo con Ordering provider: Violeta Snowden MD History: . fall . Comparison: None. Technique: CT of the cervical spine was performed without contrast. Sagittal and coronal reformatted images were also obtained and reviewed. Automated exposure control and iterative reconstruction sury hnique were employed. The dose-length product was 605.33 mGy-cm. FINDINGS: VERTEBRAE: No subluxation or acute fracture. The occipital condyles are intact. DISC SPACES: Narrowing of the disc C4-C5 and C5-C6 and C6-C7. Multilevel uncovertebral joint osteoart hritic changes. Multilevel intervertebral foraminal narrowing. PARASPINOUS SOFT TISSUES: Bilateral carotid atherosclerotic changes. IMPRESSION: No acute osseous abnormality cervical spine. Multilevel degenerative disc disease. Reviewed, dictated and finalized at location A.
--- NOTE | ~2024-08-07 | XR_ITS ---
XR chest 1V portable Ordering provider: Violeta Snowden MD History: 78 years Female with . near syncope . Comparison: April 20, 2024 FINDINGS: MEDIASTINUM: The cardiac silhouette is not enlarged. LUNGS: No infiltrates, effusions or pneumothorax. OTHER: No free air under the diaphragm. IMPRESSION: No acute cardiopulmonary pathology. Reviewed, dictated and finalized at location A.
--- NOTE | 2024-08-07 13:51 | ECG_ITS ---
Test Date: 2024-08-07 13:55:09 Measurements Intervals [place] Rate: 92 P: 80 CO: 251 QRS: 19 QRSD: 82 T: 80 QT: 477 QTc: 593 Interpretive Statements SINUS RHYTHM WITH FIRST DEGREE AV BLOCK POSSIBLE LEFT ATRIAL ENLARGEMENT CANNOT R/O SEPTAL INFARCT, AGE INDETERMINATE BORDERLINE ST-T WAVE ABNORMALITY- HIGH LATERAL LEADS ABNORMAL ECG Compared to ECG 04/20/2024 13:42:52 No significant changes Electronically Signed On 08-07-2024 13:59:05 CDT by Osei Avila D.O.
--- OUTSIDE RECORDS SUMMARY | 2024-08-07 14:55 | XMS_ITS | Continuity of Care Document ---
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 [address] , [address], [place], [address], [place]. tel:[phone] Family History Family Member Type Diagnosis Age [...]
--- OUTSIDE RECORDS SUMMARY | 2024-08-07 14:55 | XMS_ITS | Patient Health Record ---
Author Organization [facility] [place] ([address]) Address [address] [place] [address] Care Team Providers Care Implement Mechanic Name Role Phone David Pruitt MD Primary Care Provider Unavaila Herbert Wong Unavailable [phone] Irineo Rivas Unavailable Unavailable Sean Brown Unavailable [phone] Hailey Sotelo Unavailable [phone] Johana Martinez Unavailable [phone] Nahed Avelar Unavailable [phone] [facility], Provider Unavailable Unavailab le Allergies Allergen (clinical [...] Duration) Notes Start Date End Date Status HYDROCHLOROTHIAZIDE 25 mg for 90 Not-Taking Nasacort Allergy 24HR DIRECTED *Please re view and pick correct strength-formul ation from Easy Tempo options. If intended option is not shown, discontinue and re-order from Quick Search* Not-Taking ATORVASTATIN 40 mg 1 tab(s) orally once a day Not-Taking Tradjenta 5 MG 1 tab(s) orally once a day Not-Taking Xolair 150 MG for 28 Not-Ta kandy HIBICLENS 4% 1 august applied topically once for 1 day(s) Not-Taking DULOXETINE 60 mg 1 cap(s) orally once a day for 30 day(s) Not-Taking SPIRIVA 18 mcg 1 puff inhaled Qday Not-Taking LEVOTHYROXINE 125 mcg (0.125 mg) 1 tab(s) orally once a day for 30 day(s) Not-Taking TOUJEO MAX SOLOSTAR 300 units/mL INJECT 100 UNITS SUBCUTANEOUSLY DAILY PER INSULIN PROTOCOL for 30 Not-Taking METOPROLOL 25 mg 1 tab(s) orally once a day for 30 day(s) Not-Taking METOPROLOL SUCCINATE ER 25 mg 1 tab(s) orally once a day Not-Taking LANTUS 100 units/mL 0 subcutaneously Not-Taking AMLODIPINE 5 mg 1 tab(s) orally once a day Not-Taking Wixela Inhub 250-50 MCG/ACT 1 puff Inhalation Twice a day for 90 days 5 Active LOSARTAN 50 mg 1 tab(s) orally once a day Not-Taking Symbicort 160-4.5 MCG/ACT Inhale 2 puffs by mouth twice daily for 30 Not-Taking NYSTATIN 375735 units/mL 5 mL orally, sw jennifer & swallow tid Not-Taking Mupirocin 2 % 1 august applied topically 2 times a day for 7 days Not-Taking MONTELUKAST 10 mg 1 tab(s) orally once a day for 30 day(s) Not-Taking FLUTICASONE-SALMETEROL 113 mcg-14 mcg/inh 1 INH inhaled 2 times a day for 30 day(s) Not-Taking VENTOLIN HFA 90 mcg/inh INHALE 2 PUFFS B Y MOUTH EVERY 4 TO 6 HOURS NEEDED AND PER THE ASTHMA ACTION PLAN 17 for 17 Not-Taking TOUJEO MAX SOLOSTAR 300 units/mL INJECT 80 UNITS SUBCUTANEOUSLY ONCE DAILY for 90 Not-Taking METHOTREXATE 2.5 mg as directed orally once a week for 30 Not-Taking XARELTO 10 mg 1 tab(s) orally once a day Not-Taking ROSUVASTATIN 10 mg 1 tab(s) orally once a day for 30 day(s) Not-Taking LEVOTHYROXINE 150 mcg (0.15 mg) 1 tab(s) orally once a day Not-Taking HUMALOG KWIKPEN 100 units/mL for 18 Not-Taking PREDNISONE 20 mg 2 tab(s) orally once a day for 5 day(s) 0 Not-Taking VALTREX 1 g 1 tab(s) orally 2 times a day Not-Taking SINGULAIR 10 mg 1 tab(s) orally once a day Not-Taking BYSTOLIC 10 mg for 90 Not-T aking MULTIVITAMIN 1 po once a day N ot-Taking DOXYCYCLINE monohydrate 100 mg 1 cap(s) orally 2 times a day Not-Taking ASPIRIN 81 mg 1 tab(s) chewed once a day Not-Taking CYMBALTA 30 mg 1 cap(s) orally 2 times a day Not-Taking OMEPRAZOLE 20 mg 1 cap(s) orally once a day Not-Taking CALTRATE 600 + D 600 mg-800 intl units 1 tab(s) orally 2 times a day Not-Taking DULOXETINE 60 mg 1 cap(s) orally once a day Not-Taking FLUOXETINE 20 mg 1 cap(s) orally once a day Not-Taking BYSTOLIC 10 mg 1 tab(s) orally once a day Active predniSONE 10 mg 1.5 tab(s) orally once a day Active HumaLOG 100 UNIT/ML 0 subcutaneously Not-Taking predniSONE 5 mg 10 tab(s) orally once a day Active SYMBICORT 160 mcg-4.5 mcg/inh Inhale 2 puffs by mouth twice daily for 30 Not-Taking MUPIROCIN 2% 1 august applied topically 2 times a day for 7 days Not-Taking NASACORT as directed Not-Taknate saldaña TRADJENTA 5 mg 1 tab(s) orally once a day Not-Taking XOLAIR 150 mg for 28 Not-Ta kandy HUMALOG KWIKPEN (CONCENTRATED) 200 UNITS/ML INJECT UP TO 56 UNITS SUBCUTANEOUSLY THREE TIMES DAILY WITH MEALS for 14 *Please review for potential replacement for e-prescription and drug interaction check* Not-Taking LEVOTHYROXINE 150 mcg (0.15 mg) 1 tab(s) orally once a day Not-Taking DULoxetine HCl 60 MG 1 cap(s) orally once a day for 30 day(s) Not-Taking CYMBALTA 30 mg 1 cap(s) orally 2 times a day Not-Taking Levothyroxine Sodium 125 MCG 1 tab(s) orally once a day for 30 day(s) Not-Taking DULOXETINE 60 mg 1 cap(s) orally once a day Not-Taking Metoprolol Succinate ER 25 MG 1 tab(s) orally once a day for 30 day(s) Not-Taking TRAMADOL 50 mg 1 tab(s) orally every 4 hours Not-Taking Omeprazole Magnesium 20 MG 1 tab(s) orally once a day for 14 day(s) Not-Taking FLUOXETINE 20 mg 1 cap(s) orally once a day Not-Taking Xiidra 5 % INSTILL 1 DROP INTO EACH EYE TWICE DAILY for 30 Not-Taking BACTRIM DS 800 mg-160 mg 1 tab(s) orally 2 times a day for 10 day(s) Not-Taking Toujeo Max SoloStar 300 UNIT/ML INJECT 100 UNITS SUBCUTANEOUSLY ONCE DAILY DIRECTED for 30 Not-Taking MULTIVITAMIN 1 po once a day N ot-Taking Rosuvastatin Calcium 10 MG 1 tab(s) orally once a day for 30 day(s) 1 Not-Taking Lantus 100 UNIT/ML 0 subcutaneously Not-Taking Methotrexate 2.5 MG 7 TAB(S) ORALLY ONCE A WEEK *Please review and pick correct strength-formul ation from Workecan options. If intended option is not shown, discontinue and re-order from Quick Search* 1 Not-Taking LANTUS 100 units/mL 0 subcutaneously Not-Taking CALTRATE 600 + D 600 mg-800 intl units 1 tab(s) orally 2 times a day Not-Taking Rosuvastatin Calcium 10 MG 1 tab(s) orally once a day for 30 day(s) Not-Taking HUMALOG 100 units/mL 0 subcutaneously Not-Taking Methotrexate 2.5 MG DIRECTED ORALLY ONCE A WEEK for 30 *Please review and pick correct strength-formul ation from Easy Tempo options. If intended option is not shown, discontinue and re-order from Quick Search* Not-Taking Xarelto 10 MG 1 tab(s) orally once a day Not-Taking TRIPLE ANTIBIOTIC 400 units-3.5 mg-5000 units/g 1 august applied topically bid for 7 day(s) Not-Taking XIIDRA 5% INSTILL 1 DROP INTO EACH EYE TWICE DAILY for 30 Not-Taking Valtrex 1 GM 1 tab(s) orally 2 times a day Not-Taking NASACORT ALLERGY 24HR 55 mcg/inh 2 spray(s) intranasally once a day Not-Taking TOUJEO MAX SOLOSTAR 300 units/mL INJECT 100 UNITS SUBCUTANEOUSLY ONCE DAILY DIRECTED for 30 Not-Taking Bystolic 10 MG for 90 Not-T aking XOLAIR 150 mg 300 mg subcutaneously every 4 weeks for 1 dose(s) Not-Taking Doxycycline Monohydrate 100 MG 1 cap(s) orally 2 times a day Not-Taking ALPHA-LIPOIC ACID 600 mg orally once a day Not-Taking Cymbalta 30 MG 1 cap(s) orally 2 times a day Not-Taking NYSTATIN 872190 units/mL 4 mL orally 4 t imes a day Not-Taking Ventolin HFA 108 (90 Base) MCG/ACT INHALE 2 PUFFS BY MOUTH EVERY 4 TO 6 HOURS NEEDED AND PER THE ASTHMA ACTION PLAN 17 for 17 Not-Taking ASPIRIN 81 mg 1 tab(s) orally once a day Not-Taking SIT (TRADITIONAL) VARIABLE PER SCHEDULE SC PER SCHEDULE for TO BE DETERMINED *Please review for potential replacement for e-prescription and drug interaction check* Not-Taking CLARITIN 24 HOUR ALLERGY 10 mg 1 tab(s) orally once a day Not-Taking HUMALOG KWIKPEN (CONCENTRATED) 200 UNITS/ML for 28 *Please review for potential replacement for e-prescription and drug interaction check* Not-Taking OMEPRAZOLE 20 mg 1 cap(s) orally once a day Not-Taking Toufrancko Max SoloStar 300 UNIT/ML INJECT 80 UNITS SUBCUTANEOUSLY ONCE DAILY for 90 Not-Taking OMEPRAZOLE 20 mg 1 tab(s) orally once a day for 14 day(s) Not-Taking CARTIA XT 180 mg/24 hours 1 cap(s) orally once a day for 30 day(s) Not-Taking MOUNJARO 5 mg/0.5 mL as directed subcutaneously once a week Not-Taking POTASSIUM CHLORIDE 10 mEq 1 tab(s) orally 2 times a day for 30 day(s) Not-Taking FOLIC ACID 1 mg 1 tab(s) orally once a day Not-Taking PIOGLITAZONE 15 mg 1 tab(s) orally once a day Not-Taking PREDNISONE 10 mg 1.5 tab(s) orally once a day Not-Taking METOPROLOL SUCCINATE ER 25 mg 1 tab(s) orally once a day Not-Taking TRELEGY ELLIPTA 200 mcg-62.5 mcg-25 mcg/inh 1 puff(s) inhaled once a day for 90 days Not-Taking PREDNISONE 5 mg 10 tab(s) orally once a day Active Losartan Potassium 50 MG 1 tab(s) orally once a day Not-Taking PROAIR HFA 90 MCG/INH 2 PUFFS INHALED Q4-6 HOURS, PRN AND PER THE ASTHMA ACTION PLAN *Please review for potential replacement for e-prescription and drug interaction check* Not-Taking Metoprolol Succinate ER 25 MG 1 tab(s) orally once a day Active HumaLOG KwikPen 100 UNIT/ML for 18 Not-Taking Triple Antibiotic 3.5-400-5000 1 august applied topically bid for 7 day(s) Active predniSONE 20 MG 2 tab(s) orally once a day for 5 day(s) 0 Not-Taking Alpha-Lipoic Acid 600 MG orally once a day Active Spiriva HandiHaler 18 MCG 1 puff inhaled Qday Not-Taki ng Nystatin 500420 UNIT/ML 4 mL orally 4 ti mes a day Active Metoprolol Succinate ER 25 MG 1 tab(s) orally once a day Not-Taking Levothyroxine Sodium 150 MCG 1 tab(s) orally once a day Active amLODIPine Besylate 5 MG 1 tab(s) orally once a day Not-Taking hydroCHLOROthiazide 25 MG for 90 Not-Taking Mounjaro 5 MG/0.5 ML DIRECTED SUBCUTANEOUSLY ONCE A WEEK *Please review and pick correct strength-formul ation from Easy Tempo options. If intended option is not shown, discontinue and re-order from Quick Search* Active Potassium Chloride ER 10 MEQ 1 tab(s) orally 2 times a day for 30 day(s) Active DULoxetine HCl 60 MG 1 cap(s) orally once a day Not-Taking Singulair 10 MG 1 tab(s) orally once a day Active FLUoxetine HCl 20 MG 1 cap(s) orally once a day Not-Taking Toujeo Max SoloStar 300 UNIT/ML INJECT 100 UNITS SUBCUTANEOUSLY DAILY PER INSULIN PROTOCOL for 30 Active Levothyroxine Sodium 150 MCG 1 tab(s) orally once a day Not-Taking PREDNISONE 10 mg 1.5 tab(s) orally once a day Active SPIRIVA 18 mcg 1 cap(s) inhaled once a day Not-Taking Omeprazole 40 MG 1 cap(s) orally once a day for 30 day(s) Not-Taking Trelegy Ellipta 200 MCG-62.5 MCG-25 MCG/INH 1 PUFF(S) INHALED ONCE A DAY for 90 DAYS *Please review and pick correct strength-formul ation from Easy Tempo options. If intended option is not shown, discontinue and re-order from Quick Search* Not-Taking Spiriva Respimat 1.25 MCG/ACT 2 puff(s) inhaled once a day Not-Taking Spiriva HandiHaler 18 MCG 1 cap(s) inhaled once a day Not-Taking Vitamin D3 [...] review and pick correct strength-formul ation from Easy Tempo options. If intended option is not shown, discontinue and re-order from Quick Search* Active Aspirin 81 MG 1 tab(s) chewed once a day Not-Taking Cartia XT 180 MG 1 cap(s) orally once a day for 30 day(s) Active Omeprazole 20 MG 1 cap(s) orally once a day Not-Taking Caltrate 600+D Plus Minerals 600-800 MG-UNIT 1 tab(s) orally 2 times a day Not-Taking AIRDUO RESPICLICK 232 MCG-14 MCG/INH 1 INH INHALED 2 TIMES A DAY for 30 DAY(S) *Please review for potential replacement for e-prescription and drug interaction check* Not-Taking Montelukast Sodium 10 MG 1 tab(s) orally once a day for 30 day(s) Not-Taking Azelastine HCl 137 MCG/SPRAY 2 spray(s) intranasally BID, PRN for 30 day(s) Not-Taking Fluticasone-Salmeterol 113 MCG-14 MCG/INH 1 INH INHALED 2 TIMES A DAY for 30 DAY(S) *Please review and pick correct strength-formul ation from Easy Tempo options. If intended option is not shown, discontinue and re-order from Quick Search* Not-Taking Antioxidant Formula - as directed orally for 30 day(s) Not-Taking SPIRIVA RESPIMAT 1.25 mcg/inh 2 puff(s) inhaled once a day Not-Taking VITAMIN D3 2000 intl units as directed orally once a day for 30 day(s) Not-Taking ATORVASTATIN 40 mg 1 tab(s) orally once a day Not-Taking CETIRIZINE 10 mg 1 tab(s) orally once a day Not-Taking CETIRIZINE HYDROCHLORIDE 10 mg 1 tab(s) orally once a day Active Atorvastatin Calcium 40 MG 1 tab(s) orally once a day Not-Taking AMLODIPINE 5 mg 1 tab(s) orally once a day Active VANICREAM MOISTURIZING CREAM N/A NECESSARY APPLY TO EXTERNAL SURFACES OFTEN NEEDED TO FACE, HANDS, FEET OR BODY FOR DAILY USE BY THE ENTIRE FAMILY for 30 DAY(S) *Please review for potential replacement for e-prescription and drug interaction check* Not-Taking LOSARTAN 50 mg 1 tab(s) orally once a day Active ROSUVASTATIN 10 mg 1 tab(s) orally once a day for 30 day(s) 1 Not-Taking [id number] - 1 AUGUST APPLIED TOPICALLY 2 TIMES A DAY for 30 DAY(S) *Please review for potential replacement for e-prescription and drug interaction check* Not-Taking HYDROCHLOROTHIAZIDE 25 mg 1 tab(s) orally once a day Active METHOTREXATE 2.5 mg 7 tab(s) orally once a week 1 Not-Taking Aspirin 81 MG 1 tab(s) orally once a day Not-Taking AZELASTINE HYDROCHLORIDE NASAL 137 mcg/inh 2 spray(s) intranasally BID, PRN for 30 day(s) Not-Taking Omeprazole 20 MG 1 cap(s) orally once a day Not-Taking ANTIOXIDANT FORMULA Antioxidant Multiple Vitamins and Minerals as directed orally for 30 day(s) Not-Taking PREDNISONE 5 mg 10 tab(s) orally once a day Not-Taking OMEPRAZOLE 40 mg 1 cap(s) orally once a day for 30 day(s) Not-Taking FLUTICASONE-SALMETEROL 113 mcg-14 mcg/inh 1 INH inhaled 2 times a day for 30 days Active FASENRA 30 mg/mL 30 mg subcutaneously every 8 weeks Active Lantus 100 UNIT/ML 0 subcutaneously Not-Taking AEROCHAMBER MDI SPACER - MOUTHPIECE (ADULT) N/A As directed PO Per asthma action plan Active Folic Acid 1 MG 1 tab(s) orally once a day Not-Taking PROAIR HFA 90 mcg/inh 2 puff(s) inhaled Q4-6 hours, PRN and per the asthma action plan Active Pioglitazone HCl 15 MG 1 tab(s) orally once a day Not-Taking MONTELUKAST 10 mg 1 tab(s) orally once a day for 30 days Active Hibiclens 4% 1 AUGUST APPLIED TOPICALLY ONCE for 1 DAY(S) *Please review and pick correct strength-formul ation from Medispan options. If intended option is not shown, discontinue and re-order from Quick Search* Not-Taking EPIPEN 2-MAKENZIE 0.3 mg 0.3 mg intramuscularly once for 30 day(s) Active Nystatin 993166 UNIT/ML 5 mL orally, swi sh & swallow tid Not-Taking amLODIPine Besylate 5 MG 1 tab(s) orally once a day Active Claritin 10 MG 1 tab(s) orally once a day Not-Taking Losartan Potassium 50 MG 1 tab(s) orally once a day Active Caltrate 600+D Plus Minerals 600-800 MG-UNIT 1 tab(s) orally 2 times a day Not-Taking hydroCHLOROthiazide 25 MG 1 tab(s) orally once a day Active traMADol HCl 50 MG 1 tab(s) orally every 4 hours Not-Taking Bystolic 10 MG 1 tab(s) orally once a day Active Bactrim DS 800-160 MG 1 tab(s) orally 2 times a day for 10 day(s) Not-Taking Ipratropium [place] 0.06 % 1 spray Nasally Four times a day for 30 days As needed Active EpiPen 2-Makenzie 0.3 MG/0.3ML 0.3 mg intramuscularly once for 30 day(s) Not-Taking Multivitamin - 1 po once a day Not-Taking Cymbalta 30 MG 1 cap(s) orally 2 times a day Active DULoxetine HCl 60 MG 1 cap(s) orally once a day Active Nasacort Allergy 24HR 55 MCG/ACT 2 spray(s) intranasally once a day Not-Taking FLUoxetine HCl 20 MG 1 cap(s) orally once a day Not-Taking Xolair 150 MG 300 mg subcutaneously every 4 weeks for 1 dose(s) Not-Taking Fasenra 30 MG/ML 30 MG SUBCUTANEOUSLY EVERY 8 WEEKS *Please review and pick correct strength-formul ation from Easy Tempo options. If intended option is not shown, discontinue and re-order from Quick Search* Active EPINEPHRINE TWO-PACK 0.3 MG 0.3 MG INTRAMUSCULARLY ONCE for 1 DOSE(S) *Please review for potential replacement for e-prescription and drug interaction check* Not-Taking Cetirizine HCl 10 MG 1 tab(s) orally once a day Active ONE DAILY MULTI-ESSENTIAL MULTIPLE VITAMINS 1 TAB(S) ORALLY ONCE A DAY *Please review for potential replacement for e-prescription and drug interaction check* Not-Taking Immunizations Vaccine Route Administration Date Status [...] Question Answer Notes Tobacco use: Former smoker AUDIT-C (Standard) Question Answer Notes Did you have a drink containing alcohol in the p ast year? No Points 0 Interpretation Negative Problems Problem Type SNOMED Code ICD Code Onset Dates Problem Status W/U Status Risk Notes Problem Chronic allergic conjunctivitis (48595874) Other chronic allergic conjunctivitis (H10.45) Active confirmed Problem Essential hypertension (95908784) Essential (primary) hypertension (I10) Active confirmed Problem Allergic rhinitis caused by pollen (disorder) (44777617) Allergic rhinitis due to pollen (J30.1) Active confirmed Problem Allergic rhinitis (14345602) Other allergic rhinitis (J30.89) Active confirmed Problem Chronic rhinitis (76809237) Chronic rhinitis (J31.0) Active confirmed Problem Chronic obstructive pulmonary disease (34997462) Chronic obstructive pulmonary disease, unspecified (J44.9) Active confirmed Problem Mild intermittent asthma (198554122) Mild intermittent asthma, uncomplicated (J45.20) Active confirmed Problem Uncomplicated mild persistent asthma (557057591) Mild persistent asthma, uncomplicated (J45.30) Active confirmed Problem Uncomplicated moderate persistent asthma (203803615) Moderate persistent asthma, uncomplicated (J45.40) Active confirmed Problem Uncomplicated severe persistent asthma (031901150) Severe persistent asthma, uncomplicated (J45.50) Active confirmed Problem Adverse effect o f glucocorticoids and synthetic analogues, subsequent encounter (T38.0X5D) Active confirmed Problem Allergic rhinitis caused by animal hair and dander (797678291380214) Allergic rhinitis due to animal (cat) (dog) hair and dander (J30.81) Active confirmed Problem Gastro-esophageal reflux disease without esophagitis (991315451) Gastro-esophageal reflux disease without esophagitis (K21.9) Active confirmed Problem Disorder of vocal cord (59024116) 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) Active confirmed Problem Eosinophilic asthma (033020537) 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) Active confirmed Vital Signs Respiratory Rate 18 /min 05/25/2024 Oximetry 97 % 07/20/2024 Blood pressure diastolic 73 mm Hg 07/20/2024 Height 61.50 in 07/20/2024 Blood pressure systolic 148 mm Hg 07/20/2024 Weight 120.8 lbs 05/25/2024 BMI 22.45 kg/m2 05/25/2024 Encounters Encounter Location Date Provider Diagnosis [address] [place] [address] 08/14/2023 Provider MANUEL-Ross Severe persistent asthma, uncomplicated J45.50 [facility] [address] [place] [phone] 09/16/2023 Hailey Young Severe persistent asthma, uncomplicated J45.50 ; Eosinophilic asthma J82.83 ; Chronic obstructive pulmonary disease, unspecified J44.9 ; Hypoxemia R09.02 ; Allergic rhinitis due to pollen J30.1 ; Other allergic rhinitis J30.89 ; Other chronic allergic conjunctivitis H10.45 and Essential (primary) hypertension I10 [facility] [address] [place] [phone] 11/11/2023 Hailey Young Severe persistent asthma, uncomplicated J45.50 ; Eosinophilic asthma J82.83 ; Chronic obstructive pulmonary disease, unspecified J44.9 ; Hypoxemia R09.02 ; Allergic rhinitis due to pollen J30.1 ; Other allergic rhinitis J30.89 ; Other chronic allergic conjunctivitis H10.45 and Essential (primary) hypertension I10 [facility] [address] [place] [phone] 01/13/2024 Johana Martinez Severe persistent asthma, uncomplicated J45.50 ; Eosinophilic asthma J82.83 ; Chronic obstructive pulmonary disease, unspecified J44.9 ; Hypoxemia R09.02 ; Allergic rhinitis due to pollen J30.1 ; Other allergic rhinitis J30.89 ; Other chronic allergic conjunctivitis H10.45 and Essential (primary) hypertension I10 [facility] [address] [place] [phone] 03/30/2024 Hailey Young Severe persistent asthma, uncomplicated J45.50 ; Eosinophilic asthma J82.83 ; Chronic obstructive pulmonary disease, unspecified J44.9 ; Hypoxemia R09.02 ; Allergic rhinitis due to pollen J30.1 ; Other allergic rhinitis J30.89 ; Other chronic allergic conjunctivitis H10.45 and Essential (primary) hypertension I10 [facility] [address] [place] [phone] 05/25/2024 Hailey Young Severe persistent asthma, uncomplicated J45.50 ; Eosinophilic asthma J82.83 ; Chronic obstructive pulmonary disease, unspecified J44.9 ; Hypoxemia R09.02 ; Allergic rhinitis due to pollen J30.1 ; Other allergic rhinitis J30.89 ; Other chronic allergic conjunctivitis H10.45 and Essential (primary) hypertension I10 [facility] [address] [place] [phone] 07/20/2024 Sean Brown Severe persistent asthma, uncomplicated J45.[address] [address] 03/23/2024 Herbert Hancock [address] [place] [address] 07/19/2024 Nahed Avelar Severe persistent asthma, uncomplicated J45.50 Assessments Encounter Date Diagnosis (ICD Code) Assessment Notes Treatment Notes Treatment Clinical Notes Section Notes 08/14/2023 Severe persistent asthma, uncomplicated (ICD-10 - [...] has also been compliant on FASENRA therapy 05/25/2024 Severe persistent asthma, uncomplicated (ICD-10 - J45.50) [...] for Fasenra. - Lungs clear on exam. 05/25/2024 Eosinophilic asthma (ICD-10 - J82.83) The patient has a diagnosis of asthma with an eosinophilic phenotype. Since starting FASENRA the patient has had decreased healthcare utilization, improvement in asthma symptoms and decreased utilization of rescue (DILMA) medications. The patient has also been compliant on FASENRA therapy 07/19/2024 Severe persistent asthma, uncomplicated (ICD-10 - J45.50) 07/20/2024 Severe persistent asthma, uncomplicated (ICD-10 - J45.50) 03/30/2024 Chronic obstructive pulmonary disease, unspecified (ICD-10 - J44.9) Continue per pulmonary, Dr. Rivas 05/25/2024 Chronic obstructive pulmonary disease, unspecified (ICD-10 - J44.9) Continue per pulmonary, Dr. Rivas 01/13/2024 Chronic obstructive pulmonary disease, unspecified (ICD-10 - J44.9) Continue per pulmonary, Dr. Rivas 11/11/2023 Chronic obstructive pulmonary disease, unspecified (ICD-10 - J44.9) Continue per pulmonary, Dr. Rivas 09/16/2023 Chronic obstructive pulmonary disease, unspecified (ICD-10 - J44.9) Continue per pulmonary, Dr. Rivas 11/11/2023 Hypoxemia (ICD-10 - R09.02) Off day-time oxygen per pulmonary, today reports she wears 3 L at night per their instructions. 09/16/2023 Hypoxemia (ICD-10 - R09.02) Off day-time oxygen per pulmonary, today reports she wears 3 L at night per their instructions. 01/13/2024 Hypoxemia (ICD-10 - R09.02) Off day-time oxygen per pulmonary, today reports she wears 3 L at night per their instructions. 03/30/2024 Hypoxemia (ICD-10 - R09.02) Off day-time oxygen per pulmonary, saturation stable today 05/25/2024 Hypoxemia (ICD-10 - R09.02) Off day-time oxygen [...] - Will continue to monitor symptoms off. 05/25/2024 Allergic rhinitis due to pollen (ICD-10 - [...] - Will continue to monitor symptoms off. 01/13/2024 Allergic rhinitis due to pollen (ICD-10 [...] inability to pump nasal spray with hands. 11/11/2023 Allergic rhinitis due to pollen (ICD-10 [...] (ICD-10 - J30.89) Follow allergen avoidance, meds 05/25/2024 Other allergic rhinitis (ICD-10 - J30.89) Follow allergen avoidance, meds 03/30/2024 Other allergic rhinitis (ICD-10 - J30.89) Follow allergen avoidance, meds 05/25/2024 Other chronic allergic conjunctivitis (ICD-10 - H10.45) Given ocular signs and symptoms I encouraged allergy avoidance measures and meds as above. If symptoms persist, consider adding additional medications including intraocular antihistamine/mast cell stabilizer, PRN 03/30/2024 Other chronic allergic conjunctivitis (ICD-10 - [...] is due to stress over upcoming lumpectomy 05/25/2024 Essential (primary) hypertension (ICD-10 - I10) BP normal today without symptoms of urgency or emergency. Continue serial checks and follow-up with PCP -feels her elevation is due to stress over upcoming lumpectomy 01/06/2024 Other 03/23/2024 Other 09/16/2023 Other 11/11/2023 Other 01/13/2024 Other 03/30/2024 Other 05/25/2024 Other 07/20/2024 Other Plan Of Treatment Next Appt Details Provider Name:Sean Brown , 09/14/2024 04:00:00 PM, [address] [facility], [address], [place], [address], Insurance Providers Payer Name Payer Address Payer Phone Subscriber Number Group Number Insured Name Patient Relationship to Insured Coverage Start Date Coverage End Date [facility] [address] [address] [place] [address] [id number] Rula Goldstein Self - patient is the insured [facility] [address] [place] [address] [id number] Rula Goldstein Self - patient is the insured Medical (General) History Medical History History ICD Code COPD/asthma overlap IDDM Hypothyroidism Hypertension GERD Depression Diverticulitis (with diverticulosis) NOS Herpesviral infection, unspecified Left eye infection - June 2017, July 2017 Left facial cyst, s/p I&D 08/31/17 (Dr. Perez-plastics) Atherosclerotic heart diseas [place] coronary artery without angina pectoris Obstructive sleep apnea (adult) (pediatr ic) G47.33 Allergic rhinitis due to pollen J30.1 Other allergic rhinitis J30.89 Other chronic allergic conjunctivitis H1 0.45 Surgical History Surgery Date(Month/Year) Colonoscopy Nov 2016 Cyst removal (face) 08/2017 lumpectomy 04/2024 Hospitalization History Reason Date(Month/Year) Heart issues/wheezing 12/2020 Minor stroke 2024
--- OUTSIDE RECORDS SUMMARY | 2024-08-07 14:56 | XMS_ITS | Referral Summary ---
Author Organization [facility] al Address [address] [place] [address] Care Team Providers Care Sous Chef Kitchen Manager Name Role Phone David Pruitt MD Primary Care Provider Aram Oro MD Unavailable [phone] David Fried MD Unavailable [phone] Chema Foreman MD Unavailable [phone] Encounters Date Type Department Care Team Description 08/04/[address] [facility] Medical Office Building 2 Radiation Oncology [address] [place] [phone] David Fried MD 08/04/2024 Orders Only RAD ONC TREATMENTS Miscellaneous, Not In File 08/04/[address] [facility] Medical Office Building 2 Radiation Oncology [address] [place] [address] [phone] David Fried MD 08/04/2024 Orders Only RAD ONC TREATMENTS Miscellaneous, Not In File 08/04/2024 2:[address] [facility] Medical Office Building 2 Radiation Oncology [address] [place] [address] [phone] David Fried MD 08/03/2024 Orders Only RAD ONC TREATMENTS Miscellaneous, Not In File 08/03/2024 2:[address] [facility] Medical Office Building 2 Radiation Oncology [address] [place] [address] [phone] 08/02/2024 Orders Only RAD ONC TREATMENTS Miscellaneous, Not In File 08/02/2024 1:[address] [facility] Medical Office Building 2 Radiation Oncology [address] [place] [address] [phone] 08/01/2024 Orders Only RAD ONC TREATMENTS Miscellaneous, Not In File 08/01/2024 1:[address] [facility] Medical Office Building 2 Radiation Oncology [address] [place] [address] [phone] 07/31/2024 Orders Only RAD ONC TREATMENTS Miscellaneous, Not In File 07/31/2024 1:[address] [facility] Medical Office Building 2 Radiation Oncology [address] [place] [address] [phone] David Fried MD 07/31/2024 1:[address] [facility] Medical Office [facility] 2 Radiation Oncology [address] [place] [address] [phone] David Fried MD 07/31/2024 2:17 PM CDT - 07/31/2024 11:59 PM CDT Hospital Encounter [facility] Respiratory Therapy [address] [place] [phone] Colt Landis MD Asthma-COPD overlap syndrome (HCC) Discharge Disposition: Discharge to home or self care 07/28/2024 5:[address] [facility] Medical Office Building 2 Radiation Oncology [address] [place] [phone] 07/27/2024 7:[address] [facility] Medical Office Building 2 Radiation Oncology [address] [place] [address] [phone] 07/19/2024 1:[address] [facility] Medical Office Building 2 Radiation Oncology [address] [place] [address] [phone] David Fried MD 07/19/2024 1:00 PM CDT Office Visit [facility] Medical Office Building 2 Radiation Oncology [address] [place] [address] David Fried MD Malignant neoplasm of upper-outer quadrant of right breast in female, estrogen receptor positive (HCC) (Primary Dx) 07/05/2024 2:45 PM CDT Office Visit [facility] Pulmonary [place] [address] [facility] [address] [place] [address] Colt Landis MD Asthma-COPD overlap syndrome (HCC) (Primary Dx); Nocturnal hypoxia; Paroxysmal atrial fibrillation (HCC); Gastroesophageal reflux disease without esophagitis; Primary hypertension 06/12/2024 4:00 PM CDT Office Visit [facility] Oncology [address] [place] [address] [address] [place] [address] Lobo Driscoll DO Malignant neoplasm of upper-outer quadrant of right breast in female, estrogen receptor positive (HCC) (Primary Dx) 06/02/2024 7:31 PM CDT - 06/09/2024 1:11 PM CDT Hospital Encounter [facility] 5 Med Surg [facility] [place] [address] Reynaldo Cuevas DO Sada, Kahmalia-Kalee Conceptia, MD Kalapurayil, Mathew S., DO Telemaque, Kemuel Ezekiel, MD Nyquist, David J., MD Generalized weakness (Primary Dx); COVID-19 virus infection; Fall, initial encounter; Hematoma of right breast; Paroxysmal A-fib (HCC); Simple chronic bronchitis (HCC) [J41.0]; Urinary tract infection without hematuria, site unspecified [N39.0]; Hypokalemia; Steroid-induced hyperglycemia Discharge Disposition: Discharge to home or self care 05/30/2024 10:39 PM CDT - 05/30/2024 11:[address] [facility] Emergency Department [facility] [place], [place] [phone] Forrest Mitchell Jr., MD Hematoma of right breast (Primary Dx); Anticoagulation adequate with anticoagulant therapy; History of atrial fibrillation; History of right breast cancer Discharge Disposition: Discharge to home or self care 05/18/2024 Telephone [facility] Cardiology [address] [place] [address] Chema Foreman MD 05/04/2024 6:59 PM COMMUNITY RELATIONS ADVISOR - 05/07/2024 11:45 AM CDT Hospital Encounter [facility] 5 Med Surg [address] [place] [address] Katty Armenta MD Singh, Anjanya Devendra, MD Breast hematoma (Primary Dx); Right-sided chest pain Discharge Disposition: Discharge to home or self care from Last 3 Months Allergies Active Allergy Reactions Criticality Noted Date Comments Atorvastatin Muscle pain Medium 01/01/2019 Myalgias on atorvastatin 20 mg Celecoxib Hives High 04/20/2024 Flecainide Other (See comments) Low 01/21/2021 QT prolongation House Dust Iodinated Contrast Media Other (See comments) Medium 06/30/2017 Dizzy, hot, nauseated, no hives or wheezing. Metformin Chest tightness,Other (See comments) Medium 06/30/2017 Chest pain [place]-3 Fatty Acids Rash,Hives High 01/27/2018 Prednisone Other (See comments) 06/12/2024 worsening hyperglycemia/hyperte nsion Shellfish Derived Hives High 04/20/2024 Shrimp Hives High 04/20/2024 Medications PROAIR HFA 90 mcg/actuation inhaler 05/07/19 18 Active hydroCHLOROthiazid e (HYDRODIURIL) 25 mg tablet Take 1 tablet (25 mg total) by mouth daily 05/01/19 18 Active cetirizine (ZyrTEC) 10 mg tablet Take 1 tablet (10 mg total) by mouth daily Active losartan (COZAAR) 50 mg tablet Take 1 tablet (50 mg total) by mouth daily 12/04/19 21 Active TOUJEO MAX 300 unit/mL (3 mL) pen for injection 60 Units daily 01/16/20 22 Active metoprolol XL (TOPROL-XL) 25 mg extended release tablet Take 1 tablet by mouth once daily 90 tablet 2 06/11/19 23 Active dilTIAZem XR (Cartia XT) 180 mg 24 hr capsuleIndications :Paroxysmal atrial flutter (HCC),Benign hypertensive heart disease without heart failure Take 1 capsule by mouth once daily 90 capsule 2 10/27/19 23 Active Additional Information Patient not taking.Reported on 07/19/2024 rosuvastatin (CRESTOR) 10 mg tabletIndications: Mixed hyperlipidemia,Cor onary artery disease involving kashia coronary artery of kashia heart without angina pectoris Take 1 tablet by mouth once daily 90 tablet 3 09/03/19 24 Active pioglitazone (ACTOS) 15 mg tablet Take 1 tablet (15 mg total) by mouth daily 11/05/19 24 Active leflunomide (ARAVA) 20 mg tablet Take 1 tablet (20 mg total) by mouth daily 02/25/20 24 Active lifitegrast (Xiidra) 5 % dropperette INSTILL 1 DROP INTO EACH EYE TWICE DAILY for 30 Active omeprazole (PriLOSEC) 40 mg capsule Take 1 capsule (40 mg total) by mouth daily 01/19/[address] (CYMBALTA) 30 mg capsule Take 1 capsule (30 mg total) by mouth daily Active traMADoL (ULTRAM) 50 mg tablet Take 1 tablet (50 mg total) by mouth every 6 (six) hours as needed for pain 20 tablet 04/07/19 25 Active clopidogreL (PLAVIX) 75 mg tablet Take 1 tablet (75 mg total) by mouth daily 90 tablet 3 05/20/19 25 026 Active multivitamin with minerals tablet Take 1 tablet by mouth daily Active fluticasone propion-salmeteroL (AIRDUO RESPICLICK) 113-14 mcg/actuation inhaler Inhale 1 puff 2 (two) times a day 02/29/20 24 Active montelukast (SINGULAIR) 10 mg tablet Take 1 tablet (10 mg total) by mouth daily 05/12/19 25 Active ondansetron ODT (ZOFRAN-ODT) 4 mg disintegrating tablet Take 1 tablet (4 mg total) by mouth every 6 (six) hours as needed 05/12/19 25 Active potassium chloride ER 10 mEq CR tablet Take 1 tablet/capsule (10 mEq total) by mouth 2 (two) times a day Active rivaroxaban (XARELTO) 20 mg tablet Take 1 tablet (20 mg total) by mouth Active DULoxetine DR (CYMBALTA) 60 mg capsule Take 1 capsule (60 mg total) by mouth daily Active guaiFENesin ER (MUCINEX) 600 mg 12 hr tabletIndications: Cough Take 1 tablet (600 mg total) by mouth 2 (two) times a day as needed for cough or congestion 60 tablet 06/09/19 25 Active tiotropium bromide (SPIRIVA RESPIMAT) 2.5 mcg/actuation inhalerIndications :Bronchospasm Prevention with COPD Inhale 2 puffs daily 1 each 06/09/19 Active Additional Information Patient not taking.Reported on 07/19/2024 cyanocobalamin (Vitamin B-12) 2,000 mcg tabletIndications: B12 deficiency Take 1 tablet (2,000 mcg total) by mouth daily 90 tablet 3 06/10/19 026 Active levothyroxine (SYNTHROID) 88 mcg tablet Take 1 tablet (88 mcg total) by mouth daily 06/03/19 Active methotrexate 2.5 mg tablet TAKE 10 TABLETS BY MOUTH ONCE A WEEK, EVERY 7 DAYS. 04/27/19 25 Active Mounjaro 7.5 mg/0.5 mL pen injector injection INJECT 7.5MG SUBCUTANEOUSLY ONCE A WEEK, EVERY 7 DAYS 05/16/19 Active azelastine (ASTELIN) 137 mcg (0.1 %) nasal spray Administer 1 spray into each nostril 2 (two) times a day Use in each nostril as directed 30 mL 3 07/06/19 Active Active Problems Problem Noted Date Diagnosed Date Asthma-COPD overlap syndrome 07/31/2024 Nocturnal hypoxia 07/09/2024 Steroid-induced hyperglycemia 06/09/2024 Simple chronic bronchitis 06/06/2024 Urinary tract infection without hematuria 2024 COVID-19 virus infection 06/02/2024 Breast hematoma 05/04/2024 Malignant neoplasm of upper- outer quadrant of right breast in female, estrogen receptor positive 03/11/2024 Cancer Staging:Clinical stage from 03/11/2024:Stage IA(cT1c, cN0, cM0, G1, ER+, ME+, HER2: Equivocal) - Signed by David Fried MD on 03/11/2024 Pathologic stage from 07/19/2024: pT1c, cN0, cM0, G2, ER+, ME+, HER2- - Signed by David Fried MD on 07/19/2024 Class 2 obesity 02/04/2022 Morbid (severe) obesity due to excess calories 0 08/19/2021 Paroxysmal atrial flutter 01/21/2021 Chronic anticoagulation 01/21/2021 Intermittent asthma without complication 021 Generalized weakness 01/21/2021 Hypokalemia 01/21/2021 Thyroid disease 01/21/2021 Diaphoresis 01/21/2021 Essential hypertension 01/09/2020 H/O intrinsic asthma 01/01/2019 Statin intolerance 12/27/2018 Iron deficiency anemia 01/27/2018 Assessment & Plan (01/27/2018 2:58 PM COMMUNITY RELATIONS ADVISOR): Reviewed chart and discussed blood work with patient. She denies any GI sx and says EGD 2 yrs ago and [id number] this year. Discussed posssibility of gi blood loss and offered EGD/Colonoscopy. At this time she declines and promises to follow blood counts with PMD promising to call if changes her mind Coronary artery disease invo lving kashia coronary artery of kashia heart without angina pectoris 01/26/2018 Mixed hyperlipidemia 01/26/2018 Diastolic dysfunction 01/26/2018 MATTHEWS (dyspnea on exertion) 06/30/2017 Uncomplicated asthma 06/30/2017 Mixed diabetic hyperlipidemi a associated with type 2 diabetes mellitus ([facility]) 06/30/2017 Lumbago 08/31/2016 Degeneration of intervertebral disc [...] drink = 0.6 oz pur e alcohol) [facility] Utilities Answer Date Recorded In the past 12 months has th e electric, gas, oil, or water company threatened to shut off services in your home? No 06/05/2024 Social Connection and Isolat ion Panel [NHANES] Answer Date Recorded In a typical week, how many times do you talk on the phone with family, friends, or neighbors? More than three times a week 06/05/2024 How often do you get togethe r with friends or relatives? Twice a week 06/05/2024 How often do you attend chur ch or jewish services? Never 06/05/2024 Do you belong to any clubs o r organizations such as religion groups, unions, fraternal or athletic groups, or school groups? No 06/05/2024 How often do you attend meet ings of the clubs or organizations you belong to? Never 06/05/2024 Are you , , di vorced, , never , or living with a partner? 06/05/2024 AUDIT-C Answer Date Recorded Q1: How often do you have a drink containing alcohol? Never 04/01/2024 Q2: How many drinks containi ng alcohol do you have on a typical day when you are drinking? Patient does not drink Q3: How often do you have si x or more drinks on one occasion? Never 04/01/2024 Overall Financial Resource Strain (CARDIA) Answe r Date Recorded How hard is it for you to pa y for the very basics like food, housing, medical care, and heating? Not hard at all 06/05/2024 PHQ-2 Answer Date Recorded PHQ-2 Total Score 0 06/05/2024 Hunger Vital Sign Answer Date Recorded Within the past 12 months, y ou worried that your food would run out before you got the money to buy more. Never true 06/06/19 25 Within the past 12 months, t he food you bought just didn't last and you didn't have money to get more. Never true 06/05/2024 PRAPARE - Transportation Answer Date Re corded In the past 12 months, has l ack of transportation kept you from medical appointments or from getting medications? No 08/2024 In the past 12 months, has l ack of transportation kept you from meetings, work, or from getting things needed for daily living? No 06/05/2024 PHQ-9 Answer Date Recorded PHQ-9 Total Score 6 06/05/2024 Housing Stability Vital Sign Answer Chivo e Recorded In the last 12 months, was t here a time when you were not able to pay the mortgage or rent on time? No 06/05/2024 In the past 12 months, how m any times have you moved where you were living? 0 06/05/2024 At any time in the past 12 m [facility], were you homeless or living in a nursing home (including now)? No 06/05/2024 Personal Safety Answer Date Recorded Have you ever been in or are you currently in a harmful physical or emotional relationship or is someone making you feel afraid or unsafe? 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 Not on file Not on file Last Filed Vital Signs Vital Sign Reading Time Taken Comments Blood Pressure 198/72 08/04/2024 2:20 PM CDT Pulse 82 08/04/2024 2:20 PM CDT Temperature 36.3 C (97.4 F) 07/05/2024 2:50 PM CDT Respiratory Rate 18 07/05/2024 2:50 PM CDT Oxygen Saturation 99% 08/04/2024 2:20 PM CDT Inhaled Oxygen Concentration - - Weight 57.2 kg (126 lb) 07/19/2024 1:05 PM CDT Height 152.4 cm (5') 07/05/2024 2:50 PM CDT Body Mass Index 24.61 07/05/2024 2:50 PM CDT Plan of Treatment Not on file Medical Devices Implanted Type Area Audit Associate Device Identifier Shelf Expiration Date Model / Serial / Lot Underwriting Manager [employer] Sheridan 20ga 5cm Reposition J Curve Wire Centimeter Andrew Stabilizer [id number] - [id number] Implanted:Qty: 1 on 04/07/2024 by Eleazar Gavin MD at [facility] Right: Breast [employer] [id number] 01/12/2029 [id number] / / [id number] Procedures Procedure Name Priority Date/Time Associated Diagnosis Comments RAD ONC ARIA COURSE SUMMARY 08/04/2024 4:18 PM CDT RAD ONC ARIA SESSION SUMMARY 08/04/2024 2:10 PM CDT RAD ONC ARIA SESSION SUMMARY 08/03/2024 2:12 PM CDT RAD ONC ARIA SESSION SUMMARY 08/02/2024 1:46 PM CDT RAD ONC ARIA SESSION SUMMARY 08/01/2024 1:33 PM CDT PULMONARY FUNCTION TEST (PFT) Routine 07/31/2024 3:01 PM CDT Asthma-COPD overlap syndrome (HCC) RAD ONC ARIA SESSION SUMMARY 07/31/2024 1:41 PM CDT POCT GLUCOSE DEVICE Routine 06/09/2024 8 :36 AM CDT EGFR Routine 06/09/2024 5:56 AM CDT COMPREHENSIVE METABOLIC PANEL Routine 06/09/2024 5:56 AM CDT POCT GLUCOSE DEVICE Routine 06/08/2024 8 :25 PM CDT EGFR Timed 06/08/2024 5:51 PM CDT BASIC METABOLIC PANEL Timed 06/08/2024 5:51 PM CDT POCT GLUCOSE DEVICE Routine 06/08/2024 5 :09 PM CDT HOME O2 EVAL (DESATURATION SCREEN) Routine 06/08/2024 12:43 PM CDT POCT GLUCOSE DEVICE Routine 06/08/2024 1 2:12 PM CDT EGFR Timed 06/08/2024 10:29 AM CDT DIFFERENTIAL AUTO Timed 06/08/2024 10: 29 AM CDT MAGNESIUM Timed 06/08/2024 10:29 AM CDT COMPREHENSIVE METABOLIC PANEL Timed 06/08/2024 10:29 AM CDT CBC WITH AUTO DIFFERENTIAL Timed 06/08/2024 10:29 AM CDT POCT GLUCOSE DEVICE Routine 06/08/2024 9 :39 AM CDT POCT GLUCOSE DEVICE Routine 06/08/2024 8 :17 AM CDT EGFR Routine 06/08/2024 5:07 AM CDT COMPREHENSIVE METABOLIC PANEL Routine 06/08/2024 5:07 AM CDT POCT GLUCOSE DEVICE Routine 06/08/2024 1 2:56 AM CDT POCT GLUCOSE DEVICE Routine 06/07/2024 1 0:05 PM CDT POCT GLUCOSE DEVICE Routine 06/07/2024 9 :05 PM CDT POCT GLUCOSE DEVICE Routine 06/07/2024 8 :29 PM CDT POCT GLUCOSE DEVICE Routine 06/07/2024 4 :25 PM CDT POCT GLUCOSE DEVICE Routine 06/07/2024 1 1:34 AM CDT XR CHEST 1 VIEW IP Routine 06/07/2024 8:50 AM CDT POCT GLUCOSE DEVICE Routine 06/07/2024 8 :42 AM CDT EGFR Routine 06/07/2024 5:38 AM CDT DIFFERENTIAL AUTO Routine 06/07/2024 5:3 8 AM CDT PRO B-TYPE NATRIURETIC PEPTIDE Routine 06/07/2024 5:38 AM CDT CRP (ACUTE PHASE) Routine 06/07/2024 5:3 8 AM CDT COMPREHENSIVE METABOLIC PANEL Routine 06/07/2024 5:38 AM CDT CBC WITH AUTO DIFFERENTIAL Routine 06/07/2024 5:38 AM CDT POCT GLUCOSE DEVICE Routine 06/06/2024 8 :17 PM CDT POCT GLUCOSE DEVICE Routine 06/06/2024 6 :45 PM CDT POCT GLUCOSE DEVICE Routine 06/06/2024 4 :59 PM CDT POCT GLUCOSE DEVICE Routine 06/06/2024 1 :42 PM CDT POCT GLUCOSE DEVICE Routine 06/06/2024 1 1:38 AM CDT POCT GLUCOSE DEVICE Routine 06/06/2024 1 0:51 AM CDT POCT GLUCOSE DEVICE Routine 06/06/2024 1 0:50 AM CDT EGFR Timed 06/06/2024 8:44 AM CDT DIFFERENTIAL AUTO Timed 06/06/2024 8:4 4 AM CDT VITAMIN D 25 HYDROXY Timed 06/06/2024 8:44 AM CDT VITAMIN B12 Timed 06/06/2024 8:44 AM CDT FOLATE Timed 06/06/2024 8:44 AM CDT IRON PROFILE W/ IBC Timed 06/06/2024 8 :44 AM CDT CBC WITH AUTO DIFFERENTIAL Timed 06/06/2024 8:44 AM CDT PHOSPHORUS Timed 06/06/2024 8:44 AM CDT BASIC METABOLIC PANEL Timed 06/06/2024 8:44 AM CDT MAGNESIUM Timed 06/06/2024 8:44 AM CDT POCT GLUCOSE DEVICE Routine 06/06/2024 7 :49 AM CDT POCT GLUCOSE DEVICE Routine 06/05/2024 8 :54 PM CDT POCT GLUCOSE DEVICE Routine 06/05/2024 3 :55 PM CDT POCT GLUCOSE DEVICE Routine 06/05/2024 3 :53 PM CDT POCT GLUCOSE DEVICE Routine 06/05/2024 1 1:40 AM CDT EGFR Routine 06/05/2024 8:17 AM CDT DIFFERENTIAL AUTO Routine 06/05/2024 8:1 7 AM CDT MAGNESIUM Routine 06/05/2024 8:17 AM CDT COMPREHENSIVE METABOLIC PANEL Routine 06/05/2024 8:17 AM CDT CBC WITH AUTO DIFFERENTIAL Routine 06/05/2024 8:17 AM CDT POCT GLUCOSE DEVICE Routine 06/05/2024 8 :12 AM CDT POCT GLUCOSE DEVICE Routine 06/04/2024 8 :03 PM CDT POCT GLUCOSE DEVICE Routine 06/04/2024 3 :55 PM CDT POCT GLUCOSE DEVICE Routine 06/04/2024 1 2:13 PM CDT EGFR Routine 06/04/2024 8:26 AM CDT DIFFERENTIAL AUTO Routine 06/04/2024 8:2 6 AM CDT MAGNESIUM Routine 06/04/2024 8:26 AM CDT COMPREHENSIVE METABOLIC PANEL Routine 06/04/2024 8:26 AM CDT CBC WITH AUTO DIFFERENTIAL Routine 06/04/2024 8:26 AM CDT POCT GLUCOSE DEVICE Routine 06/04/2024 8 :24 AM CDT POCT GLUCOSE DEVICE Routine 06/03/2024 1 1:25 PM CDT POCT GLUCOSE DEVICE Routine 06/03/2024 9 :04 PM CDT POCT GLUCOSE DEVICE Routine 06/03/2024 7 :02 PM CDT POCT GLUCOSE DEVICE Routine 06/03/2024 6 :21 PM CDT POCT GLUCOSE DEVICE Routine 06/03/2024 6 :19 PM CDT EGFR Routine 06/03/2024 12:53 PM CDT DIFFERENTIAL AUTO Routine 06/03/2024 12: 53 PM CDT MAGNESIUM Routine 06/03/2024 12:53 PM CDT COMPREHENSIVE METABOLIC PANEL Routine 06/03/2024 12:53 PM CDT CBC WITH AUTO DIFFERENTIAL Routine 06/03/2024 12:53 PM CDT POCT GLUCOSE DEVICE Routine 06/03/2024 1 1:38 AM CDT POCT GLUCOSE DEVICE Routine 06/03/2024 8 :24 AM CDT THYROID FUNCTION CASCADE Timed 06/03/2024 4:19 AM CDT TROPONIN T HIGH-SENSITIVITY 6-HOUR Timed 06/03/2024 4:19 AM CDT TROPONIN T HIGH-SENSITIVITY 4-HR Timed 06/03/2024 12:38 AM CDT POCT GLUCOSE DEVICE Routine 06/02/2024 1 1:11 PM CDT URINALYSIS, MICROSCOPIC ONLY STAT 06/02/2024 10:37 PM CDT URINE CULTURE Routine 06/02/2024 10:37 PM CDT URINALYSIS AND REFLEX TO MICROSCOPIC AND CULTURE STAT 06/02/2024 10:37 PM CDT TROPONIN T HIGH-SENSITIVITY 2-HOUR Timed 06/02/2024 10:21 PM CDT POCT GLUCOSE DEVICE Routine 06/02/2024 1 0:19 PM CDT EGFR STAT 06/02/2024 8:11 PM CDT TROPONIN T HIGH-SENSITIVITY SERIES (BASELINE, 2HR, 4HR, 6HR) STAT 06/02/2024 8:11 PM CDT COMPREHENSIVE METABOLIC PANEL STAT 06/02/2024 8:11 PM CDT SEPSIS LACTATE WITH REFLEX STAT 06/02/2024 8:11 PM CDT XR CHEST 1 VIEW ED 06/02/2024 7:45 PM CDT ECG 12-LEAD STAT 06/02/2024 7:29 PM CDT DIFFERENTIAL AUTO STAT 06/02/2024 7:2 4 PM CDT CBC WITH AUTO DIFFERENTIAL STAT 06/02/2024 7:24 PM CDT INFLUENZA A/B, RSV, AND COVID-19 PCR STAT 06/02/2024 7:[address] CHEST WO CONTRAST ED 05/30/2024 7:08 PM CDT EGFR STAT 05/30/2024 6:56 PM CDT DIFFERENTIAL AUTO STAT 05/30/2024 6:5 6 PM CDT COMPREHENSIVE METABOLIC PANEL STAT 05/30/2024 6:56 PM CDT CBC WITH AUTO DIFFERENTIAL STAT 05/30/2024 6:56 PM CDT APTT STAT 05/30/2024 6:56 PM CDT PROTIME-INR STAT 05/30/2024 6:56 PM CDT POCT GLUCOSE DEVICE Routine 05/07/2024 8 :36 AM CDT DIFFERENTIAL AUTO Routine 05/07/2024 5:1 7 AM CDT CBC WITH AUTO DIFFERENTIAL Routine 05/07/2024 5:17 AM CDT POCT GLUCOSE DEVICE Routine 05/07/2024 4 :53 AM CDT POCT GLUCOSE DEVICE Routine 05/07/2024 1 2:09 AM COMMUNITY RELATIONS ADVISOR HEMOGLOBIN A1C Routine 03/31/2024 3:12 PM COMMUNITY RELATIONS ADVISOR Pre-op testing Diabetes mellitus due to underlying condition with complication (HCC) POCT LIPID PANEL Routine 08/19/2021 5:01 PM CDT Mixed diabetic hyperlipidemia associated with type 2 diabetes mellitus (HCC) from Last 3 Months or Most Recently Relevant to Health Maintenance Results * RAD ONC ARIA COURSE SUMMARY (08/04/2024 4:18 PM CDT) Course Name [id number] ARIA Course Plan Date 07/19/2024 3:24 PM ARIA Elapsed Days 4 ARIA Treatment Start Date 07/31/2024 ARIA Treatment Site PTV_R_BRST ARIA Dose Given To Date (cGy) 2,600 ARIA Session Dosage Given (cGy) 0 ARIA Plan ID Rt Breast ARIA Fractions Treated 5 ARIA Prescribed Dose Per Fraction (cGy) 520 ARIA Prescribed Total Dose (cGy) 2,600 ARIA 08/04/2024 4:18 PM CDT us Not In File Miscellaneous RADIATION ONCOLOGY ORD ERABLES Final Result Performing Organization Address [facility] Co de Phone Number ALANNA * RAD ONC ARIA SESSION SUMMARY (08/04/2024 2:10 PM CDT) Course Name [id number] ARIA Course Plan Date 07/19/2024 3:24 PM ARIA Elapsed Days 4 ARIA Treatment Start Date 07/31/2024 ARIA Treatment Site PTV_R_BRST ARIA Dose Given To Date (cGy) 2,600 ARIA Session Dosage Given (cGy) 520 ARIA Plan ID Rt Breast ARIA Fractions Treated 5 ARIA Prescribed Dose Per Fraction (cGy) 520 ARIA Prescribed Total Dose (cGy) 2,600 ARIA 08/04/2024 2:10 PM CDT us Not In File Miscellaneous RADIATION ONCOLOGY ORD ERABLES Final Result ALANNA * RAD ONC ARIA SESSION SUMMARY (08/03/2024 2:12 PM CDT) Course Name [id number] ARIA Course Plan Date 07/19/2024 3:24 PM ARIA Elapsed Days 3 ARIA Treatment Start Date 07/31/2024 ARIA Treatment Site PTV_R_BRST ARIA Dose Given To Date (cGy) 2,080 ARIA Session Dosage Given (cGy) 520 ARIA Plan ID Rt Breast ARIA Fractions Treated 4 ARIA Prescribed Dose Per Fraction (cGy) 520 ARIA Prescribed Total Dose (cGy) 2,600 ARIA 08/03/2024 2:12 PM CDT us Not In File Miscellaneous RADIATION ONCOLOGY ORD ERABLES Final Result ALANNA * RAD ONC ARIA SESSION SUMMARY (08/02/2024 1:46 PM CDT) Course Name [id number] ARIA Course Plan Date 07/19/2024 3:24 PM ARIA Elapsed Days 2 ARIA Treatment Start Date 07/31/2024 ARIA Treatment Site PTV_R_BRST ARIA Dose Given To Date (cGy) 1,560 ARIA Session Dosage Given (cGy) 520 ARIA Plan ID Rt Breast ARIA Fractions Treated 3 ARIA Prescribed Dose Per Fraction (cGy) 520 ARIA Prescribed Total Dose (cGy) 2,600 ARIA 08/02/2024 1:46 PM CDT us Not In File Miscellaneous RADIATION ONCOLOGY ORD ERABLES Final Result ARIA * RAD ONC ARIA SESSION SUMMARY (08/01/2024 1:33 PM CDT) Course Name [id number] ARIA Course Plan Date 07/19/2024 3:24 PM ARIA Elapsed Days 1 ARIA Treatment Start Date 07/31/2024 ARIA Treatment Site PTV_R_BRST ARIA Dose Given To Date (cGy) 1,040 ARIA Session Dosage Given (cGy) 520 ARIA Plan ID Rt Breast ARIA Fractions Treated 2 ARIA Prescribed Dose Per Fraction (cGy) 520 ARIA Prescribed Total Dose (cGy) 2,600 ARIA 08/01/2024 1:33 PM CDT us Not In File Miscellaneous RADIATION ONCOLOGY ORD ERABLES Final Result ALONDRAA * (ABNORMAL) Pulmonary Function Test - (07/31/2024 3:01 PM CDT) FVC POST 2.30 1.52 - 2.87 L [facility] FEV1 POST 1.31 1.16 - 2.15 L [facility] [id number] 56.88(A) 62.59 - 90.37 % [facility] BLR28-73% POST 0.75 0.58 - 2.64 L/s [facility] PEF POST 2.74(A) 3.39 - 6.35 L/s [facility] DLCOc SB 9.13(A) 11.60 - 23.07 ml/(min*mm Hg) [facility] DLCO/VA PRE 3.29 2.42 - 5.70 ml/(min*mm Hg*L) [facility] VA 2.78(A) 4.12 - 4.12 L [facility] TLC PRE 4.75 3.28 - 5.26 L [facility] VC PRE 2.11 1.21 - 2.59 L [facility] IC PRE 1.48(A) 1.45 - 1.45 L [facility] FRC PL PRE 3.27 1.67 - 3.32 L [facility] ERV PRE 0.63(A) 0.46 - 0.46 L [facility] RV PRE 2.64(A) 1.46 - 2.61 L [facility] VTG 3.29 L [facility] RAW PRE 5.76(A) 3.06 - 3.06 cmH2O*s/L [facility] FVC PRE 1.84 1.52 - 2.87 L [facility] FEV1 PRE 1.12(A) 1.16 - 2.15 L [facility] [id number] 60.63(A) 62.59 - 90.37 % [facility] MZH18-56% PRE 0.66 0.58 - 2.64 L/s [facility] PEF PRE 2.16(A) 3.39 - 6.35 L/s [facility] Anatomical Region Laterality Modality PFT 07/31/2024 2:18 PM CDT Narrative 07/31/2024 6:08 PM CDT Spirometry shows moderate obstructive ventilatory defect with good response to bronchodilators. Flow volume loop is suggestive of obstructive airway disease. Lung volumes show mild air trapping. Gas exchange capacity is moderately reduced. Electronically signed by Colt Landis MD us Colt Landis MD PFT ORDERABLES Final Result * RAD ONC ARIA SESSION SUMMARY (07/31/2024 1:41 PM CDT) Pathologist [facility] Course Name [id number] ARIA Course Plan Date 07/19/2024 3:24 PM ARIA Elapsed Days 0 ARIA Treatment Start Date 07/31/2024 ARIA Treatment Site PTV_R_BRST ARIA Dose Given To Date (cGy) 520 ARIA Session Dosage Given (cGy) 520 ARIA Plan ID Rt Breast ARIA Fractions Treated 1 ARIA Prescribed Dose Per Fraction (cGy) 520 ARIA Prescribed Total Dose (cGy) 2,600 ARIA 07/31/2024 1:41 PM CDT us Not In File Miscellaneous RADIATION ONCOLOGY ORD ERABLES Final Result ARIA * POCT glucose (06/09/2024 8:36 AM CDT) [facility] Glucose, POC 108 70 - 199 mg/dL Comment:Testing performed by : [facility], [address] [place] [address], [place]., [address] Blood 06/09/2024 8:36 AM CDT 06/09/2024 8:36 AM CDT us Shaw Mitchell MD LAB POCT ORDERABLES - DEVICE Final Result KISHA [facility] [place] [address] * eGFR (06/09/2024 5:56 AM CDT) eGFR >90 >=60 mL/min/1. 73 m2 Comment: [...] was last reviewed 2020. Testing performed by: [address] [address] Blood 06/09/2024 5:56 AM CDT 06/09/2024 6:12 AM CDT Colt Landis MD LAB BLOOD ORDERABLES F inal Result [facility] [address] [facility] Department [place] [address] * (ABNORMAL) Comprehensive metabolic panel (06/09/2024 5:56 AM CDT) Sodium 139 135 - 145 mmol/L Comment:Testing performed by : [address] [address] Potassium, pl 3.9 3.3 - 4.9 mmol/L KISHA T[place]NSEND Comment:Testing performed by : [address] [address] Chloride 104 97 - 110 mmol/L KISHA Comment:Testing performed by : [address] [address] CO2 28 22 - 32 mmol/L [facility] Comment:Testing performed by : [address] [address] Anion gap 7 2 - 15 mmol/L [facility] Comment:Testing performed by : [address], [place]., [address] BUN 19 6 - 25 mg/dL KISHA Comment:Testing performed by : [address] [address] Creatinine 0.40(L) 0.60 - 1.10 mg/dL [facility] Comment:Testing performed by : [address] [address] Glucose 93 70 - 199 mg/dL [facility] Comment: Delta - Results Reviewed Interpretive Data Fasting glucose >/= 126 mg/dl [...] classification and Diagnosis of Diabetes Diabetes Care 202; 46: S19-S40. Current interpretive data was last revised 2022. Testing performed by: [address] [address] Calcium 7.9(L) 8.5 - 10.3 mg/dL [facility] Comment:Testing performed by : [address] [address] Bilirubin, total 0.3 0.1 - 1.2 mg/dL [facility] Comment:Testing performed by : [address] [address] Protein, pl 5.3(L) 6.5 - 8.5 g/dL KISHA Comment:Testing performed by : [address] [address] Albumin 3.0(L) 3.5 - 5.0 g/dL KISHA Comment:Testing performed by : [address] [address] Alk phos 78 40 - 130 Units/L KISHA Comment:Testing performed by : [address] [address] ALT 14 7 - 45 Units/L KISHA Comment:Testing performed by : [address] [address] AST 12 10 - 45 Units/L KISHA Comment:Testing performed by : [address] [address] Blood 06/09/2024 5:56 AM CDT 06/09/2024 6:12 AM CDT us Colt Landis MD LAB BLOOD ORDERABLES F inal Result Performing Organization Address City/[facility] Co de Phone Number [address] [place] [address] * POCT glucose (06/08/2024 8:25 PM CDT) [facility] Glucose, POC 185 70 - 199 mg/dL Comment:Testing performed by : [address], [address] Blood 06/08/2024 8:25 PM CDT 06/08/2024 8:25 PM CDT us Shaw Mitchell MD LAB POCT ORDERABLES - DEVICE Final Result Performing Organization Address City/[facility]/ZIP Co de Phone Number [address] [place] [address] * eGFR (06/08/2024 5:51 PM CDT) [facility] eGFR >90 >=60 mL/min/1. 73 m2 Comment: [...] of Race in Diagnosing Kidney Disease, JASN 202). The CKD-EPI equation should not be used for patients with unstable renal function and has not been validated in children and those over 70. Current interpretive data was last reviewed 2020. Testing performed by: [address] [address] Blood 06/08/2024 5:51 PM CDT 06/08/2024 5:58 PM CDT us Shaw Mitchell MD LAB BLOOD ORDERABLES Final R esult KISHA [facility] Department [place] [address] * (ABNORMAL) Basic metabolic panel (06/08/2024 5:51 PM CDT) Sodium 136 135 - 145 mmol/L Comment:Testing performed by : [address] [address] Potassium, pl 4.1 3.3 - 4.9 mmol/L KISHA TOWNSEND Comment: Delta - Results Reviewed Testing performed by: [address] [address] Chloride 101 97 - 110 mmol/L KISHA OTWNSEND Comment:Testing performed by : [address] [address] CO2 26 22 - 32 mmol/L KISHA TOWNSEND Comment:Testing performed by : [address] [address] Anion gap 9 2 - 15 mmol/L KISHA [place]NSEND Comment:Testing performed by : [address] [address] BUN 23 6 - 25 mg/dL KISHA [place] Comment:Testing performed by : [address] [address] Creatinine 0.53(L) 0.60 - 1.10 mg/dL KISHA Comment:Testing performed by : [address] [address] Glucose 247(H) 70 - 199 mg/dL KISHA Comment: Interpretive [...] was last revised 2022. Testing performed by: [address] [address] Calcium 8.5 8.5 - 10.3 mg/dL KISHA Comment:Testing performed by : [address] [address] Blood 06/08/2024 5:51 PM CDT 06/08/2024 5:58 PM CDT us Shaw Mitchell MD LAB BLOOD ORDERABLES Final R esult Performing Organization Address City/State/[facility] Co de Phone Number [facility] [address] [facility] Department [place] [address] * (ABNORMAL) POCT glucose (06/08/2024 5:09 PM CDT) Glucose, POC 233(H) 70 - 199 mg/dL Comment:Testing performed by : [address] [address] Blood 06/08/2024 5:09 PM CDT 06/08/2024 5:09 PM CDT Shaw Mitchell MD LAB POCT ORDERABLES - DEVICE Final Result Performing Organization Address City/[facility] Co de Phone Number KISHA [address] [place] [address] * (ABNORMAL) POCT glucose (06/08/2024 12:12 PM CDT) [facility] Glucose, POC 305(H) 70 - 199 mg/dL Comment:Testing performed by : [address] [address] Blood 06/08/2024 12:1 2 PM CDT 06/08/2024 12:12 PM CDT us Shaw Mitchell MD LAB POCT ORDERABLES - DEVICE Final Result Performing Organization Address [facility] Co de Phone Number KISHA [address] [address] * eGFR (06/08/2024 10:29 AM CDT) [facility] eGFR >90 >=60 mL/min/1. 73 m2 Comment: [...] was last reviewed 2020. Testing performed by: [address] [address] Blood 06/08/2024 10:2 9 AM CDT 06/08/2024 10:33 AM CDT us Shaw Mitchell MD LAB BLOOD ORDERABLES Final R esult KISHA TOWNSEND [address] [facility] Department [place] [address] * (ABNORMAL) Differential, auto (06/08/2024 10:29 AM CDT) Neutrophil abs 8.02(H) 1.50 - 6.50 K/cumm Comment:Testing performed by : [address] [address] Imm gran abs 0.08 0.00 - 0.10 K/cumm KISHA Comment:Testing performed by : [address] [address] Lymphocyte abs 2.42 0.80 - 3.30 K/cumm KISHA Comment:Testing performed by : [address] [address] Monocyte abs 1.68(H) 0.20 - 0.80 K/cumm KISHA Comment:Testing performed by : [address] [address] Eosinophil abs 0.00 0.00 - 0.50 K/cumm KISHA Comment:Testing performed by : [address] [address] Basophil abs 0.01 0.00 - 0.10 K/cumm KISHA Comment:Testing performed by : [address] [address] Neutrophil pct 65.6 % KISHA Comment: Interpretive Data Percent cell count reference ranges are not reported, since discordance with absolute values may lead to misinterpretation of CBC data. Current Interpretive Data was last revised on 2017. Testing performed by: [address] [address] Imm gran pct 0.7 % KISHA Comment: Interpretive Data Percent cell count reference ranges are not reported, since discordance with absolute values may lead to misinterpretation of CBC data. Current Interpretive Data was last revised on 2017. Testing performed by: [address] [address] Lymphocyte pct 19.8 % [facility] Comment: Interpretive Data Percent cell count reference ranges are not reported, since discordance with absolute values may lead to misinterpretation of CBC data. Current Interpretive Data was last revised on 2017. Testing performed by: [address] [address] Monocyte pct 13.8 % [facility] Comment: Interpretive Data Percent cell count reference ranges are not reported, since discordance with absolute values may lead to misinterpretation of CBC data. Current Interpretive Data was last revised on 2017. Testing performed by: [address] [address] Eosinophil pct 0.0 % [facility] Comment: Interpretive Data Percent cell count reference ranges are not reported, since discordance with absolute values may lead to misinterpretation of CBC data. Current Interpretive Data was last revised on 2017. Testing performed by: [address] [address] Basophil pct 0.1 % [facility] Comment: Interpretive Data Percent cell count reference ranges are not reported, since discordance with absolute values may lead to misinterpretation of CBC data. Current Interpretive Data was last revised on 2017. Testing performed by: [address] [address] Blood 06/08/2024 10:2 9 AM CDT 06/08/2024 10:33 AM CDT us Shaw Mitchell MD LAB BLOOD ORDERABLES Final R esult [facility] [address] [facility] Department [place] [address] * (ABNORMAL) CBC with auto differential (06/08/2024 10:29 AM CDT) WBC 12.21(H) 3.80 - 9.90 K/cumm Comment:Testing performed by : [address] [address] Hgb 9.2(L) 11.9 - 15.5 g/dL KISHA Comment:Testing performed by : [address] [address] Hct 28.7(L) 35.6 - 45.5 % KISHA Comment:Testing performed by : [address] [address] Plt 349 150 - 400 K/cumm KISHA Comment:Testing performed by : [address] [address] MPV 9.5 9.1 - 12.3 fL KISHA Comment:Testing performed by : [address] [address] RBC 3.27(L) 3.90 - 5.20 M/cumm KISHA Comment:Testing performed by : [address] [address] MCV 87.8 81.3 - 96.4 fL KISHA Comment:Testing performed by : [address] [address] MCH 28.1 27.1 - 33.3 pg KISHA Comment:Testing performed by : [address] [address] MCHC 32.1(L) 32.3 - 35.7 g/dL KISHA Comment:Testing performed by : [address] [address] RDW CV 16.4(H) 11.1 - 14.9 % KISHA Comment:Testing performed by : [address] [address] RDW SD 51.7(H) 35.7 - 48.1 fL KISHA Comment:Testing performed by : [address] [address] NRBC abs 0.00 0.00 - 0.01 K/cumm KISHA Comment:Testing performed by : [address] [address] Blood 06/08/2024 10:2 9 AM CDT 06/08/2024 10:33 AM CDT Shaw Mitchell MD LAB BLOOD ORDERABLES Final R esult Performing Organization Address City/[facility] Co de Phone Number KISHA [address] [address] * Magnesium (06/08/2024 10:29 AM CDT) Pathologist [facility] Magnesium 2.3 1.4 - 2.5 mg/dL Comment:Testing performed by : [address] [address] Blood 06/08/2024 10:2 9 AM CDT 06/08/2024 10:33 AM CDT Shaw Mitchell MD LAB BLOOD ORDERABLES Final [facility] Performing Organization Address [facility] de Phone Number KISHA [address] [address] * (ABNORMAL) Comprehensive metabolic panel (06/08/2024 10:29 AM CDT) Pathologist [facility] Sodium 137 135 - 145 mmol/L Comment:Testing performed by : [address] [address] Potassium, pl 3.0(L) 3.3 - 4.9 mmol/L KISHA Comment:Testing performed by : [address] [address] Chloride 100 97 - 110 mmol/L KISHA Comment:Testing performed by : [address] [address] CO2 27 22 - 32 mmol/L KISHA Comment:Testing performed by : [address] [address] Anion gap 10 2 - 15 mmol/L KISHA Comment:Testing performed by : [address] [address] BUN 21 6 - 25 mg/dL KISHA Comment:Testing performed by : [address] [address] Creatinine 0.53(L) 0.60 - 1.10 mg/dL [facility] Comment:Testing performed by : [address] [address] Glucose 159 70 - 199 mg/dL [facility] Comment: Interpretive Data Fasting glucose >/= 126 [...] was last revised 2022. Testing performed by: [address] [address] Calcium 8.4(L) 8.5 - 10.3 mg/dL [facility] Comment:Testing performed by : [address] [address] Bilirubin, total 0.2 0.1 - 1.2 mg/dL [facility] Comment:Testing performed by : [address] [address] Protein, pl 5.9(L) 6.5 - 8.5 g/dL [facility] Comment:Testing performed by : [address] [address] Albumin 3.5 3.5 - 5.0 g/dL [facility] Comment:Testing performed by : [address] [address] Alk phos 85 40 - 130 Units/L [facility] Comment:Testing performed by : [address] [address] ALT 19 7 - 45 Units/L [facility] Comment:Testing performed by : [address] [address] AST 21 10 - 45 Units/L [facility] Comment:Testing performed by : [address] [address] Blood 06/08/2024 10:2 9 AM CDT 06/08/2024 10:33 AM CDT Shaw Mitchell MD LAB BLOOD ORDERABLES Final R esult Performing Organization Address [facility] Co de Phone Number KISHA [address] [place] [address] * POCT glucose (06/08/2024 9:39 AM CDT) Glucose, POC 101 70 - 199 mg/dL Comment:Testing performed by : [address] [address] Blood 06/08/2024 9:39 AM CDT 06/08/2024 9:39 AM CDT Shaw Mitchell MD LAB POCT ORDERABLES - DEVICE Final Result Performing Organization Address [facility] de Phone Number [address] [address] * POCT glucose (06/08/2024 8:17 AM CDT) Glucose, POC 72 70 - 199 mg/dL Comment:Testing performed by : [address] [address] Blood 06/08/2024 8:17 AM CDT 06/08/2024 8:17 AM CDT Shaw Mitchell MD LAB POCT ORDERABLES - DEVICE Final Result Performing Organization Address [facility] Co de Phone Number [address] [address] * eGFR (06/08/2024 5:07 AM CDT) [facility] eGFR >90 >=60 mL/min/1. 73 m2 Comment: [...] was last reviewed 2020. Testing performed by: [address] [address] Blood 06/08/2024 5:07 AM CDT 06/08/2024 5:27 AM CDT Colt aLndis MD LAB BLOOD ORDERABLES F inal Result [place] [id number] [facility] Department of Laboratories [place], [place] [id number] * (ABNORMAL) Comprehensive metabolic panel (06/08/2024 5:07 AM CDT) Sodium 138 135 - 145 mmol/L Comment:Testing performed by : [address] [address] Potassium, pl 3.0(L) 3.3 - 4.9 mmol/L KISHA TOWNSEND Comment:Testing performed by : [address] [address] Chloride 101 97 - 110 mmol/L KISHA Comment:Testing performed by : [address] [address] CO2 28 22 - 32 mmol/L KISHA T[place] Comment:Testing performed by : [address] [address] Anion gap 9 2 - 15 mmol/L KISHA T[place]NSEND Comment:Testing performed by : [address] [address] BUN 23 6 - 25 mg/dL KISHA Comment:Testing performed by : [address] [address] Creatinine 0.49(L) 0.60 - 1.10 mg/dL KISHA Comment:Testing performed by : [address] [address] Glucose 98 70 - 199 mg/dL KISHA Comment: Delta - Results Reviewed Interpretive Data Fasting glucose >/= 126 mg/dl [...] was last revised 2022. Testing performed by: [address] [address] Calcium 8.4(L) 8.5 - 10.3 mg/dL [facility] Comment:Testing performed by : [address] [address] Bilirubin, total 0.2 0.1 - 1.2 mg/dL [facility] Comment:Testing performed by : [address] [address] Protein, pl 5.8(L) 6.5 - 8.5 g/dL KISHA Comment:Testing performed by : [address] [address] Albumin 3.4(L) 3.5 - 5.0 g/dL [facility] Comment:Testing performed by : [address] [address] Alk phos 95 40 - 130 Units/L KISHA Comment:Testing performed by : [address] [address] ALT 19 7 - 45 Units/L KISHA Comment:Testing performed by : [address] [address] AST 20 10 - 45 Units/L KISHA Comment:Testing performed by : [address] [address] Blood 06/08/2024 5:07 AM CDT 06/08/2024 5:27 AM CDT Colt Landis MD LAB BLOOD ORDERABLES F inal Result Performing Organization Address City/[facility]/ZIP Co de Phone Number [address] [place] [address] * (ABNORMAL) POCT glucose (06/08/2024 12:56 AM CDT) Glucose, POC 217(H) 70 - 199 mg/dL Comment:Testing performed by : [address] [address] Blood 06/08/2024 12:5 6 AM CDT 06/08/2024 12:56 AM CDT Shaw Mitchell MD LAB POCT ORDERABLES - DEVICE Final Result Performing Organization Address [facility] Co de Phone Number [address] [place] [address] * POCT glucose (06/07/2024 10:05 PM CDT) Glucose, POC 170 70 - 199 mg/dL Comment:Testing performed by : [address] [address] Blood 06/07/2024 10:0 5 PM CDT 06/07/2024 10:05 PM CDT Shaw Mitchell MD LAB POCT ORDERABLES - DEVICE Final Result Performing Organization Address City/[facility] Co de Phone Number [address] [place] [address] * POCT glucose (06/07/2024 9:05 PM CDT) Glucose, POC 89 70 - 199 mg/dL Comment:Testing performed by : [address] [address] Glucose comment 1 RN/MD Notified KISHA Comment:Testing performed by : [address] [address] Blood 06/07/2024 9:05 PM CDT 06/07/2024 9:05 PM CDT Shaw Mitchell MD LAB POCT ORDERABLES - DEVICE Final Result Performing Organization Address City/[facility]/ZIP Co de Phone Number KISHA [facility] [place] [address] * (ABNORMAL) POCT glucose (06/07/2024 8:29 PM CDT) [facility] Signature Glucose, POC 65(L) 70 - 199 mg/dL Comment:Testing performed by : [address] [address] Glucose comment 1 RN/ Notified KISHA Comment:Testing performed by : [address] [address] Blood 06/07/2024 8:29 PM CDT 06/07/2024 8:29 PM CDT Shaw Mitchell MD LAB POCT ORDERABLES - DEVICE Final Result [place] [address] [facility] [place] [address] * POCT glucose (06/07/2024 4:25 PM CDT) Glucose, POC 80 70 - 199 mg/dL Comment:Testing performed by : [address] [address] Glucose comment 1 RN/MD Notified KISHA Comment:Testing performed by : [address] [address] Blood 06/07/2024 4:25 PM CDT 06/07/2024 4:25 PM CDT Shaw Mitchell MD LAB POCT ORDERABLES - DEVICE Final Result Performing Organization Address [facility] de Phone Number KISHA [address] [address] * (ABNORMAL) POCT glucose (06/07/2024 11:34 AM CDT) [facility] Signature Glucose, POC 298(H) 70 - 199 mg/dL Comment:Testing performed by : [facility], [address] [place] [address]., [address] Blood 06/07/2024 11:3 4 AM CDT 06/07/2024 11:34 AM CDT Shaw Mitchell MD LAB POCT ORDERABLES - DEVICE Final Result Performing Organization Address [facility] de Phone Number KISHA [address] [address] * XR Chest 1 View (06/07/2024 8:50 AM CDT) Anatomical Region Laterality Modality Body, Chest N/A Computed Radiogr aphy 06/07/2024 12:1 7 PM CDT Narrative 06/07/2024 12:19 PM CDT EXAM DESCRIPTION: XR CHEST 1 VIEW REASON FOR STUDY: dyspnea Onset of productive cough, weakness, fatigue 5 days ago; Covid positive TECHNIQUE: Single radiographic view(s) of the chest. COMPARISON: Chest radiograph 06/02/2024 FINDINGS: LUNGS: No focal opacity, pleural effusion, or pneumothorax. HEART/MEDIASTINUM: Cardiac silhouette normal in size. Mediastinal and hilar contours appear normal. LINES/TUBES: None. BONES: No acute osseous abnormality. IMPRESSION: No acute cardiopulmonary abnormality. THIS IS AN ELECTRONICALLY VERIFIED FINAL REPORT 06/07/2024 12:19 PM - Electronically signed by Amy Gomez M.D. FT: FT Report ID: [id number] Reading Location: [id number] Procedure Note Amy Wynne MD - 06/07/2024 EXAM DESCRIPTION: XR CHEST 1 VIEW REASON FOR STUDY: dyspnea Onset of productive cough, weakness, fatigue 5 days ago; Covid positive TECHNIQUE: Single radiographic view(s) of the chest. COMPARISON: Chest radiograph 06/02/2024 FINDINGS: LUNGS: No focal opacity, pleural effusion, or pneumothorax. HEART/MEDIASTINUM: Cardiac silhouette normal in size. Mediastinal andhilar contours appear normal. LINES/TUBES: None. BONES: No acute osseous abnormality. IMPRESSION: No acute cardiopulmonary abnormality. THIS IS AN ELECTRONICALLY VERIFIED FINAL REPORT 06/07/2024 12:19 PM - Electronically signed by Amy Gomez M.D. FT: FT Report ID: [id number] Reading Location: [id number] us Colt Landis MD IMG XR PROCEDURES Radha l Result * (ABNORMAL) POCT glucose (06/07/2024 8:42 AM CDT) [facility] Glucose, POC 207(H) 70 - 199 mg/dL Comment:Testing performed by : [address] [address] Glucose comment 1 Will Repeat Test KISHA TOWNSEND Comment:Testing performed by : [address] [address] Glucose comment 2 RN/MD Notified KISHA TOWNSEND Comment:Testing performed by : [address] [address] Blood 06/07/2024 8:42 AM CDT 06/07/2024 8:42 AM CDT us Shaw Mitchell MD LAB POCT ORDERABLES - DEVICE Final Result Performing Organization Address [facility] de Phone Number KISHA [address] [place] [address] * eGFR (06/07/2024 5:38 AM CDT) eGFR >90 >=60 mL/min/1. 73 m2 Comment: [...] was last reviewed 2020. Testing performed by: [address] [address] Blood 06/07/2024 5:38 AM CDT 06/07/2024 6:02 AM CDT Colt Landis MD LAB BLOOD ORDERABLES F inal Result Performing Organization Address [facility] Co de Phone Number KISHA [address] [place] [address] * (ABNORMAL) Differential, auto (06/07/2024 5:38 AM CDT) Neutrophil abs 8.06(H) 1.50 - 6.50 K/cumm Comment:Testing performed by : [address] [address] Imm gran abs 0.08 0.00 - 0.10 K/cumm KISHA Comment:Testing performed by : [address] [address] Lymphocyte abs 1.18 0.80 - 3.30 K/cumm KISHA Comment:Testing performed by : [address] [address] Monocyte abs 1.19(H) 0.20 - 0.80 K/cumm [facility] Comment:Testing performed by : [address], [place]., [address] Eosinophil abs 0.00 0.00 - 0.50 K/cumm [facility] Comment:Testing performed by : [address] [address] Basophil abs 0.01 0.00 - 0.10 K/cumm [facility] Comment:Testing performed by : [address] [address] Neutrophil pct 76.6 % [facility] Comment: Interpretive Data Percent cell count reference ranges are not reported, since discordance with absolute values may lead to misinterpretation of CBC data. Current Interpretive Data was last revised on 2017. Testing performed by: [address] [address] Imm gran pct 0.8 % [facility] Comment: Interpretive Data Percent cell count reference ranges are not reported, since discordance with absolute values may lead to misinterpretation of CBC data. Current Interpretive Data was last revised on 2017. Testing performed by: [address] [address] Lymphocyte pct 11.2 % [facility] Comment: Interpretive Data Percent cell count reference ranges are not reported, since discordance with absolute values may lead to misinterpretation of CBC data. Current Interpretive Data was last revised on 2017. Testing performed by: [address] [address] Monocyte pct 11.3 % [facility] Comment: Interpretive Data Percent cell count reference ranges are not reported, since discordance with absolute values may lead to misinterpretation of CBC data. Current Interpretive Data was last revised on 2017. Testing performed by: [address] [address] Eosinophil pct 0.0 % KISHA Comment: Interpretive Data Percent cell count reference ranges are not reported, since discordance with absolute values may lead to misinterpretation of CBC data. Current Interpretive Data was last revised on 2017. Testing performed by: [address] [address] Basophil pct 0.1 % KISHA Comment: Interpretive Data Percent cell count reference ranges are not reported, since discordance with absolute values may lead to misinterpretation of CBC data. Current Interpretive Data was last revised on 2017. Testing performed by: [address] [address] Blood 06/07/2024 5:38 AM CDT 06/07/2024 6:05 AM CDT Colt Landis MD LAB BLOOD ORDERABLES F inal Result KISHA 2757 [facility] Department [place] [address] * Pro B-type natriuretic peptide (06/07/2024 5:38 AM CDT) NT-proBNP 162 <=450 pg/mL Comment: Interpretive Comments: A. Dyspnea in Acute Care Setting All Ages: < 300 pg/ml, acute heart failure unlikely. < 50 yrs: 300 - 450 pg/ml, further investigation warranted. > 450 pg/ml, acute heart failure likely. 50 - 74 yrs: 300 - 900 pg/ml, further investigation warranted. > 900 pg/ml, acute heart failure likely . > or = 75 yrs: 450 - 1800 pg/ml, further investigation warranted. > 1800 pg/ml, acute heart failure likely. B. Non-acute Setting < 75 yrs < 125 pg/ml, rules out heart failure. > or = 125 pg/ml, further investigation warranted. > or = 75 yrs < 450 pg/ml, rules out heart failure. > or = 450 pg/ml, further investigation warranted. - Knowledge of each individual patient's NT-proBNP range may be more useful than using similar cut-points for every patient. Please note that marked elevations in NT-proBNP levels may be observed in state other than Left Ventricular Congestive Failure, including: acute coronary syndromes, right heart strain/failure (including pulmonary embolism and cor pulmonale), critical illness, renal failure, as well as advanced age. - References: 1. Lorena ABBOTT et.al. Eur Heart J. 2006:27:330-337. 2. Mahnaz RW, Jacquelyn DRIVER. J. AM Lindsay Cardiol: Cardiovasc Imag. 2009;2: 216- 225. Interpretive Data Last Revised Date: 2017. Testing performed by: [address] [address] Blood 06/07/2024 5:38 AM CDT 06/07/2024 6:02 AM CDT Colt Landis MD LAB BLOOD ORDERABLES F inal Result KISHA 5018 [facility] Department [place] [address] * (ABNORMAL) CBC with auto differential (06/07/2024 5:38 AM CDT) WBC 10.52(H) 3.80 - 9.90 K/cumm Comment:Testing performed by : [address] [address] Hgb 8.4(L) 11.9 - 15.5 g/dL KISHA TOWNSEND Comment:Testing performed by : [address] [address] Hct 26.4(L) 35.6 - 45.5 % KISHA TOWNSEND Comment:Testing performed by : [address] [address] Plt 351 150 - 400 K/cumm KISHA TOWNSEND Comment:Testing performed by : [address] [address] MPV 9.7 9.1 - 12.3 fL KISHA TOWNSEND Comment:Testing performed by : [address] [address] RBC 3.06(L) 3.90 - 5.20 M/cumm KISHA Comment:Testing performed by : [address] [address] MCV 86.3 81.3 - 96.4 fL KISHA Comment:Testing performed by : [address] [address] MCH 27.5 27.1 - 33.3 pg KISHA Comment:Testing performed by : [address] [address] MCHC 31.8(L) 32.3 - 35.7 g/dL KISHA Comment:Testing performed by : [address], [address] RDW CV 16.1(H) 11.1 - 14.9 % KISHA Comment:Testing performed by : [address], [address] RDW SD 49.4(H) 35.7 - 48.1 fL KISHA Comment:Testing performed by : [address] [address] NRBC abs 0.00 0.00 - 0.01 K/cumm KISHA Comment:Testing performed by : [address] [address] Blood 06/07/2024 5:38 AM CDT 06/07/2024 6:05 AM CDT Colt Landis MD LAB BLOOD ORDERABLES F inal Result [facility] 4819 [facility] Department [place] [address] * CRP (acute phase) (06/07/2024 5:38 AM CDT) [facility] CRP 3.4 <=10.0 mg/L Comment:Testing performed by : [address], [address] Blood 06/07/2024 5:38 AM CDT 06/07/2024 6:02 AM CDT us Colt Landis MD LAB BLOOD ORDERABLES F inal Result KISHA 3878 [facility] Department [place] [address] * (ABNORMAL) Comprehensive metabolic panel (06/07/2024 5:38 AM CDT) Sodium 138 135 - 145 mmol/L Comment:Testing performed by : [address] [address] Potassium, pl 3.4 3.3 - 4.9 mmol/L KISHA Comment:Testing performed by : [address] [address] Chloride 99 97 - 110 mmol/L KISHA Comment:Testing performed by : [address] [address] CO2 27 22 - 32 mmol/L KISHA Comment:Testing performed by : [address] [address] Anion gap 12 2 - 15 mmol/L KISHA Comment:Testing performed by : [address] [address] BUN 31(H) 6 - 25 mg/dL KISHA Comment:Testing performed by : [address] [address] Creatinine 0.60 0.60 - 1.10 mg/dL KISHA Comment:Testing performed by : [address] [address] Glucose 242(H) 70 - 199 mg/dL KISHA Comment: Delta - Results Reviewed Interpretive Data Fasting glucose >/= 126 mg/dl [...] classification and Diagnosis of Diabetes Diabetes Care 202; 46: S19-S40. Current interpretive data was last revised 2022. Testing performed by: [address] [address] Calcium 8.1(L) 8.5 - 10.3 mg/dL KISHA Comment:Testing performed by : [address] [address] Bilirubin, total 0.2 0.1 - 1.2 mg/dL KISHA Comment:Testing performed by : [address] [address] Protein, pl 5.8(L) 6.5 - 8.5 g/dL KISHA Comment:Testing performed by : [address] [address] Albumin 3.3(L) 3.5 - 5.0 g/dL KISHA Comment:Testing performed by : [address] [address] Alk phos 110 40 - 130 Units/L KISHA Comment:Testing performed by : [address] [address] ALT 13 7 - 45 Units/L KISHA Comment:Testing performed by : [address] [address] AST 14 10 - 45 Units/L KISHA Comment:Testing performed by : [address] [address] Blood 06/07/2024 5:38 AM CDT 06/07/2024 6:02 AM CDT us Colt Landis MD LAB BLOOD ORDERABLES F inal Result KISHA 7977 [facility] Department [place] [address] * (ABNORMAL) POCT glucose (06/06/2024 8:17 PM CDT) [facility] Glucose, POC 338(H) 70 - 199 mg/dL Comment:Testing performed by : [address] [address] Blood 06/06/2024 8:17 PM CDT 06/06/2024 8:17 PM CDT Shaw Mitchell MD LAB POCT ORDERABLES - DEVICE Final Result Performing Organization Address [facility] de Phone Number DANNY[address] [place] [address] * (ABNORMAL) POCT glucose (06/06/2024 6:45 PM CDT) Glucose, POC 338(H) 70 - 199 mg/dL Comment:Testing performed by : [address] [address] Glucose comment 1 RN/MD Notified KISHA Comment:Testing performed by : [address] [address] Blood 06/06/2024 6:45 PM CDT 06/06/2024 6:45 PM CDT Shaw Mitchell MD LAB POCT ORDERABLES - DEVICE Final Result Performing Organization Address [facility] de Phone Number DANNY[address] [address] * (ABNORMAL) POCT glucose (06/06/2024 4:59 PM CDT) Glucose, POC 499(C) 70 - 199 mg/dL Comment:Testing performed by : [address] [address] Glucose comment 1 RN/MD Notified KISHA Comment:Testing performed by : [address] [address] Blood 06/06/2024 4:59 PM CDT 06/06/2024 4:59 PM CDT Shaw Mitchell MD LAB POCT ORDERABLES - DEVICE Final Result Performing Organization Address [facility] de Phone Number KISHA [address] [address] * (ABNORMAL) POCT glucose (06/06/2024 1:42 PM CDT) Glucose, POC 548(C) 70 - 199 mg/dL Comment:Testing performed by : [address] [address] Glucose comment 1 RN/MD Notified [facility] Comment:Testing performed by : [address] [address] Blood 06/06/2024 1:42 PM CDT 06/06/2024 1:42 PM CDT us Shaw Mitchell MD LAB POCT ORDERABLES - DEVICE Final Result Performing Organization Address [facility] de Phone Number DANNY[address] [address] * (ABNORMAL) POCT glucose (06/06/2024 11:38 AM CDT) Glucose, POC >600(C) 70 - 199 mg/dL Comment:Testing performed by : [facility], [address] [place] [address]., [address] Glucose comment 1 RN/MD Notified [facility] Comment:Testing performed by : [address] [address] Blood 06/06/2024 11:3 8 AM CDT 06/06/2024 11:38 AM CDT us Shaw Mitchell MD LAB POCT ORDERABLES - DEVICE Final Result Performing Organization Address [facility] de Phone Number DANNY[address] [address] * (ABNORMAL) POCT glucose (06/06/2024 10:51 AM CDT) Glucose, POC 527(C) 70 - 199 mg/dL Comment:Testing performed by : [facility], [address] [place] [address]., [address] Glucose comment 1 RN/MD Notified KISHA Comment:Testing performed by : [address] [address] Glucose comment 2 Follow Protocol KISHA TOWNSEND Comment:Testing performed by : [address] [address] Blood 06/06/2024 10:5 1 AM CDT 06/06/2024 10:51 AM CDT Shaw Mitchell MD LAB POCT ORDERABLES - DEVICE Final Result Performing Organization Address [facility] Co de Phone Number KISHA [address] [place] [address] * (ABNORMAL) POCT glucose (06/06/2024 10:50 AM CDT) [facility] Glucose, POC 548(C) 70 - 199 mg/dL Comment:Testing performed by : [address] [address] Glucose comment 1 Will Repeat Test KISHA TOWNSEND Comment:Testing performed by : [address] [address] Blood 06/06/2024 10:5 0 AM CDT 06/06/2024 10:50 AM CDT us Shaw Mitchell MD LAB POCT ORDERABLES - DEVICE Final Result Performing Organization Address [facility] Co de Phone Number [address] [place] [address] * eGFR (06/06/2024 8:44 AM CDT) [facility] eGFR >90 >=60 mL/min/1. 73 m2 Comment: [...] was last reviewed 2020. Testing performed by: [address] [address] Blood 06/06/2024 8:44 AM CDT 06/06/2024 9:01 AM CDT Shaw Mitchell MD LAB BLOOD ORDERABLES Final R esult KISHA 2259 [facility] Department [place] [address] * (ABNORMAL) Differential, auto (06/06/2024 8:44 AM CDT) Neutrophil abs 13.54(H) 1.50 - 6.50 K/cumm Comment:Testing performed by : [address] [address] Imm gran abs 0.11(H) 0.00 - 0.10 K/cumm KISHA Comment:Testing performed by : [address] [address] Lymphocyte abs 0.67(L) 0.80 - 3.30 K/cumm KISHA Comment:Testing performed by : [address] [address] Monocyte abs 0.82(H) 0.20 - 0.80 K/cumm KISHA Comment:Testing performed by : [address] [address] Eosinophil abs 0.00 0.00 - 0.50 K/cumm [facility] Comment:Testing performed by : [address] [address] Basophil abs 0.01 0.00 - 0.10 K/cumm KISHA Comment:Testing performed by : [address] [address] Neutrophil pct 89.4 % [facility] Comment: Interpretive Data Percent cell count reference ranges are not reported, since discordance with absolute values may lead to misinterpretation of CBC data. Current Interpretive Data was last revised on 2017. Testing performed by: [address] [address] Imm gran pct 0.7 % [facility] Comment: Interpretive Data Percent cell count reference ranges are not reported, since discordance with absolute values may lead to misinterpretation of CBC data. Current Interpretive Data was last revised on 2017. Testing performed by: [address] [address] Lymphocyte pct 4.4 % [facility] Comment: Interpretive Data Percent cell count reference ranges are not reported, since discordance with absolute values may lead to misinterpretation of CBC data. Current Interpretive Data was last revised on 2017. Testing performed by: [address] [address] Monocyte pct 5.4 % [facility] Comment: Interpretive Data Percent cell count reference ranges are not reported, since discordance with absolute values may lead to misinterpretation of CBC data. Current Interpretive Data was last revised on 2017. Testing performed by: [address] [address] Eosinophil pct 0.0 % [facility] Comment: Interpretive Data Percent cell count reference ranges are not reported, since discordance with absolute values may lead to misinterpretation of CBC data. Current Interpretive Data was last revised on 2017. Testing performed by: [address] [address] Basophil pct 0.1 % [facility] Comment: Interpretive Data Percent cell count reference ranges are not reported, since discordance with absolute values may lead to misinterpretation of CBC data. Current Interpretive Data was last revised on 2017. Testing performed by: [address] [address] Blood 06/06/2024 8:44 AM CDT 06/06/2024 9:01 AM CDT Shaw Mitchell MD LAB BLOOD ORDERABLES Final R esult Performing Organization Address [facility] de Phone Number [facility] [address] [facility] [place] [address] * (ABNORMAL) Iron profile w/ IBC (06/06/2024 8:44 AM CDT) Pathologist [facility] Iron 27(L) 35 - 145 mcg/dL Comment:Testing performed by : [address] [address] TIBC 290 250 - 400 mcg/dL KISHA Comment:Testing performed by : [address] [address] Transferrin saturation 9(L) 20 - 50 % KISHA Comment:Testing performed by : [address] [address] Blood 06/06/2024 8:44 AM CDT 06/06/2024 9:01 AM CDT Shaw Mitchell MD LAB BLOOD ORDERABLES Final R esult Performing Organization Address [facility] de Phone Number [facility] [address] [facility] [place] [address] * (ABNORMAL) CBC with auto differential (06/06/2024 8:44 AM CDT) WBC 15.15(H) 3.80 - 9.90 K/cumm Comment:Testing performed by : [address] [address] Hgb 9.5(L) 11.9 - 15.5 g/dL KISHA Comment:Testing performed by : [address] [address] Hct 29.6(L) 35.6 - 45.5 % KISHA Comment:Testing performed by : [address] [address] Plt 389 150 - 400 K/cumm KISHA Comment:Testing performed by : [address] [address] MPV 9.2 9.1 - 12.3 fL KISHA Comment:Testing performed by : [address], [address] RBC 3.40(L) 3.90 - 5.20 M/cumm KISHA Comment:Testing performed by : [address], [address] MCV 87.1 81.3 - 96.4 fL KISHA Comment:Testing performed by : [address], [address] MCH 27.9 27.1 - 33.3 pg KISHA Comment:Testing performed by : [address], [address] MCHC 32.1(L) 32.3 - 35.7 g/dL KISHA Comment:Testing performed by : [address], [address] RDW CV 16.2(H) 11.1 - 14.9 % KISHA Comment:Testing performed by : [address], [address] RDW SD 50.3(H) 35.7 - 48.1 fL KISHA Comment:Testing performed by : [address], [address] NRBC abs 0.00 0.00 - 0.01 K/cumm KISHA Comment:Testing performed by : [address], [address] Blood 06/06/2024 8:44 AM CDT 06/06/2024 9:01 AM CDT us Shaw Mitchell MD LAB BLOOD ORDERABLES Final R esult KISHA [address] [place] [address] * (ABNORMAL) Vitamin D 25 hydroxy (06/06/2024 8:44 AM CDT) Pathologist [facility] Vitamin D 25-OH 23.0(L) 30.0 - 80.0 ng/mL Blood 06/06/2024 8:44 AM CDT 06/06/2024 10:29 AM CDT Shaw Mitchell MD LAB BLOOD ORDERABLES Final R esult Performing Organization Address [facility] de Phone Number [address] [address] * Phosphorus (06/06/2024 8:44 AM CDT) Pathologist [facility] Phosphorus, pl 3.5 2.3 - 4.5 mg/dL Comment:Testing performed by : [address] [address] Blood 06/06/2024 8:44 AM CDT 06/06/2024 9:01 AM CDT Shaw Mitchell MD LAB BLOOD ORDERABLES Final R esult Performing Organization Address [facility] de Phone Number [address] [place] [address] * Magnesium (06/06/2024 8:44 AM CDT) [facility] Magnesium 2.2 1.4 - 2.5 mg/dL Comment:Testing performed by : [address] [address] Blood 06/06/2024 8:44 AM CDT 06/06/2024 9:01 AM CDT Shaw Mitchell MD LAB BLOOD ORDERABLES Final R esult Performing Organization Address [facility] Co de Phone Number CER[address] [address] * Folate (06/06/2024 8:44 AM CDT) [facility] Folic acid 8.3 >=5.0 ng/mL Comment:Testing performed by : [address] [address] Blood 06/06/2024 8:44 AM CDT 06/06/2024 9:01 AM CDT Shaw Mitchell MD LAB BLOOD ORDERABLES Final R esult Performing Organization Address [facility]/ZIP Co de Phone Number [address] [address] * Vitamin B12 (06/06/2024 8:44 AM CDT) [facility] Vitamin B12 398 230 - 1,250 pg/mL Comment:Testing performed by : [address] [address] Blood 06/06/2024 8:44 AM CDT 06/06/2024 9:01 AM CDT us Shaw Mitchell MD LAB BLOOD ORDERABLES Final R esult Performing Organization Address [facility]/ZIP Co de Phone Number [address] [address] * (ABNORMAL) Basic metabolic panel (06/06/2024 8:44 AM CDT) [facility] Sodium 132(L) 135 - 145 mmol/L Comment:Testing performed by : [address] [address] Potassium, pl 3.7 3.3 - 4.9 mmol/L KISHA TOWNSEND Comment:Testing performed by : [address] [address] Chloride 96(L) 97 - 110 mmol/L KISHA TOWNSEND Comment:Testing performed by : [address] [address] CO2 23 22 - 32 mmol/L KISHA Comment:Testing performed by : [address] [address] Anion gap 13 2 - 15 mmol/L KISHA Comment:Testing performed by : [address] [address] BUN 34(H) 6 - 25 mg/dL KISHA Comment:Testing performed by : [address] [address] Creatinine 0.60 0.60 - 1.10 mg/dL KISHA Comment:Testing performed by : [address] [address] Glucose 414(H) 70 - 199 mg/dL KISHA Comment: Delta - Results Reviewed Interpretive Data Fasting glucose >/= 126 mg/dl [...] classification and Diagnosis of Diabetes Diabetes Care 202; 46: S19-S40. Current interpretive data was last revised 2022. Testing performed by: [address] [address] Calcium 8.8 8.5 - 10.3 mg/dL KISHA Comment:Testing performed by : [address] [address] Blood 06/06/2024 8:44 AM CDT 06/06/2024 9:01 AM CDT us Shaw Mitchell MD LAB BLOOD ORDERABLES Final R esult KISHA TOWNSEND 0647 [facility] Department of Laboratories [place], [place] [address] * (ABNORMAL) POCT glucose (06/06/2024 7:49 AM CDT) Glucose, POC 430(H) 70 - 199 mg/dL Comment:Testing performed by : [address] [address] Blood 06/06/2024 7:49 AM CDT 06/06/2024 7:49 AM CDT Shaw Mitchell MD LAB POCT ORDERABLES - DEVICE Final Result Performing Organization Address [facility] de Phone Number [place] [id number] [facility] [place] [address] * (ABNORMAL) POCT glucose (06/05/2024 8:54 PM CDT) Glucose, POC 244(H) 70 - 199 mg/dL Comment:Testing performed by : [address] [address] Blood 06/05/2024 8:54 PM CDT 06/05/2024 8:54 PM CDT Angelique Pace MD LAB POCT ORDERABLES - DEVICE Final Result Performing Organization Address [facility] de Phone Number [address] [address] * (ABNORMAL) POCT glucose (06/05/2024 3:55 PM CDT) Glucose, POC 444(H) 70 - 199 mg/dL Comment:Testing performed by : [address] [address] Glucose comment 1 RN/MD Notified [facility] Comment:Testing performed by : [address] [address] Blood 06/05/2024 3:55 PM CDT 06/05/2024 3:55 PM CDT Angelique Pace MD LAB POCT ORDERABLES - DEVICE Final Result Performing Organization Address [facility]/ZIP Co de Phone Number KISHA [address] [address] * (ABNORMAL) POCT glucose (06/05/2024 3:53 PM CDT) Glucose, POC 491(C) 70 - 199 mg/dL Comment:Testing performed by : [address] [address] Glucose comment 1 RN/MD Notified KISHA Comment:Testing performed by : [address] [address] Blood 06/05/2024 3:53 PM CDT 06/05/2024 3:53 PM CDT Angelique Pace MD LAB POCT ORDERABLES - DEVICE Final Result Performing Organization Address [facility] de Phone Number [address] [address] * (ABNORMAL) POCT glucose (06/05/2024 11:40 AM CDT) Glucose, POC 420(H) 70 - 199 mg/dL Comment:Testing performed by : [address] [address] Glucose comment 1 RN/ Notified KISHA Comment:Testing performed by : [address] [address] Blood 06/05/2024 11:4 0 AM CDT 06/05/2024 11:40 AM CDT Angelique Pace MD LAB POCT ORDERABLES - DEVICE Final Result Performing Organization Address [facility] Co de Phone Number DANNY[address] [address] * eGFR (06/05/2024 8:17 AM CDT) Pathologist [facility] eGFR >90 >=60 mL/min/1. 73 m2 Comment: [...] was last reviewed 2020. Testing performed by: [address] [address] Blood 06/05/2024 8:17 AM CDT 06/05/2024 8:37 AM CDT us Jackson Arango DO LAB BLOOD ORDERABLES Fi nal Result KISHA 6154 [facility] [place] [address] * (ABNORMAL) Differential, auto (06/05/2024 8:17 AM CDT) Neutrophil abs 10.04(H) 1.50 - 6.50 K/cumm Comment:Testing performed by : [address] [address] Imm gran abs 0.07 0.00 - 0.10 K/cumm KISHA TOWNSEND Comment:Testing performed by : [address] [address] Lymphocyte abs 0.77(L) 0.80 - 3.30 K/cumm KISHA Comment:Testing performed by : [address] [address] Monocyte abs 0.76 0.20 - 0.80 K/cumm KISHA Comment:Testing performed by : [address] [address] Eosinophil abs 0.00 0.00 - 0.50 K/cumm KISHA Comment:Testing performed by : [address] [address] Basophil abs 0.01 0.00 - 0.10 K/cumm KISHA Comment:Testing performed by : [address] [address] Neutrophil pct 86.2 % [facility] Comment: Interpretive Data Percent cell count reference ranges are not reported, since discordance with absolute values may lead to misinterpretation of CBC data. Current Interpretive Data was last revised on 2017. Testing performed by: [address] [address] Imm gran pct 0.6 % [facility] Comment: Interpretive Data Percent cell count reference ranges are not reported, since discordance with absolute values may lead to misinterpretation of CBC data. Current Interpretive Data was last revised on 2017. Testing performed by: [address] [address] Lymphocyte pct 6.6 % [facility] Comment: Interpretive Data Percent cell count reference ranges are not reported, since discordance with absolute values may lead to misinterpretation of CBC data. Current Interpretive Data was last revised on 2017. Testing performed by: [address] [address] Monocyte pct 6.5 % [facility] Comment: Interpretive Data Percent cell count reference ranges are not reported, since discordance with absolute values may lead to misinterpretation of CBC data. Current Interpretive Data was last revised on 2017. Testing performed by: [address] [address] Eosinophil pct 0.0 % [facility] Comment: Interpretive Data Percent cell count reference ranges are not reported, since discordance with absolute values may lead to misinterpretation of CBC data. Current Interpretive Data was last revised on 2017. Testing performed by: [address] [address] Basophil pct 0.1 % [facility] Comment: Interpretive Data Percent cell count reference ranges are not reported, since discordance with absolute values may lead to misinterpretation of CBC data. Current Interpretive Data was last revised on 2017. Testing performed by: [address] [address] Blood 06/05/2024 8:17 AM CDT 06/05/2024 8:37 AM CDT us Jackson Arango DO LAB BLOOD ORDERABLES Fi nal Result KISHA 45[address] [facility] [place] [address] * (ABNORMAL) CBC with auto differential (06/05/2024 8:17 AM CDT) WBC 11.65(H) 3.80 - 9.90 K/cumm Comment:Testing performed by : [address] [address] Hgb 9.0(L) 11.9 - 15.5 g/dL KISHA Comment:Testing performed by : [address] [address] Hct 28.2(L) 35.6 - 45.5 % KISHA Comment:Testing performed by : [address] [address] Plt 326 150 - 400 K/cumm KISHA Comment:Testing performed by : [address] [address] MPV 9.3 9.1 - 12.3 fL KISHA Comment:Testing performed by : [address] [address] RBC 3.23(L) 3.90 - 5.20 M/cumm KISHA Comment:Testing performed by : [address] [address] MCV 87.3 81.3 - 96.4 fL KISHA Comment:Testing performed by : [address] [address] MCH 27.9 27.1 - 33.3 pg KISHA TOWNSEND Comment:Testing performed by : [address] [address] MCHC 31.9(L) 32.3 - 35.7 g/dL KISHA TOWNSEND Comment:Testing performed by : [address] [address] RDW CV 16.1(H) 11.1 - 14.9 % KISHA Comment:Testing performed by : [address] [address] RDW SD 50.5(H) 35.7 - 48.1 fL KISHA Comment:Testing performed by : [address] [address] NRBC abs 0.00 0.00 - 0.01 K/cumm KISHA Comment:Testing performed by : [address] [address] Blood 06/05/2024 8:17 AM CDT 06/05/2024 8:37 AM CDT Jackson Arango DO LAB BLOOD ORDERABLES Fi nal Result Performing Organization Address City/[facility] Co de Phone Number [address] [place] [address] * Magnesium (06/05/2024 8:17 AM CDT) Magnesium 1.9 1.4 - 2.5 mg/dL Comment:Testing performed by : [address] [address] Blood 06/05/2024 8:17 AM CDT 06/05/2024 8:37 AM CDT Jackson Arango DO LAB BLOOD ORDERABLES Fi nal Result Performing Organization Address [facility] Co de Phone Number [address] [address] * (ABNORMAL) Comprehensive metabolic panel (06/05/2024 8:17 AM CDT) Sodium 135 135 - 145 mmol/L Comment:Testing performed by : [address] [address] Potassium, pl 3.7 3.3 - 4.9 mmol/L KISHA Comment:Testing performed by : [address] [address] Chloride 101 97 - 110 mmol/L [facility] Comment:Testing performed by : [address] [address] CO2 24 22 - 32 mmol/L [facility] Comment:Testing performed by : [address] [address] Anion gap 10 2 - 15 mmol/L [facility] Comment:Testing performed by : [address] [address] BUN 20 6 - 25 mg/dL [facility] Comment:Testing performed by : [address] [address] Creatinine 0.40(L) 0.60 - 1.10 mg/dL [facility] Comment:Testing performed by : [address] [address] Glucose 304(H) 70 - 199 mg/dL [facility] Comment: Interpretive Data Fasting glucose >/= 126 [...] classification and Diagnosis of Diabetes Diabetes Care 202; 46: S19-S40. Current interpretive data was last revised 2022. Testing performed by: [address] [address] Calcium 8.6 8.5 - 10.3 mg/dL [facility] Comment:Testing performed by : [address] [address] Bilirubin, total 0.3 0.1 - 1.2 mg/dL KISHA Comment:Testing performed by : [address] [address] Protein, pl 6.4(L) 6.5 - 8.5 g/dL KISHA Comment:Testing performed by : [address] [address] Albumin 3.6 3.5 - 5.0 g/dL KISHA Comment:Testing performed by : [address] [address] Alk phos 95 40 - 130 Units/L KISHA Comment:Testing performed by : [address] [address] ALT 12 7 - 45 Units/L KISHA Comment:Testing performed by : [address] [address] AST 18 10 - 45 Units/L KISHA Comment:Testing performed by : [address] [address] Blood 06/05/2024 8:17 AM CDT 06/05/2024 8:37 AM CDT Jackson Arango DO LAB BLOOD ORDERABLES Fi nal Result [facility] Department [place] [address] * (ABNORMAL) POCT glucose (06/05/2024 8:12 AM CDT) [facility] Glucose, POC 315(H) 70 - 199 mg/dL Comment:Testing performed by : [address] [address] Glucose comment 1 RN/MD Notified KISHA Comment:Testing performed by : [address] [address] Blood 06/05/2024 8:12 AM CDT 06/05/2024 8:12 AM CDT Angelique Pace MD LAB POCT ORDERABLES - DEVICE Final Result Performing Organization Address [facility] Co de Phone Number KISHA [address] [place] [address] * (ABNORMAL) POCT glucose (06/04/2024 8:03 PM CDT) Glucose, POC 398(H) 70 - 199 mg/dL Comment:Testing performed by : [address] [address] Blood 06/04/2024 8:03 PM CDT 06/04/2024 8:03 PM CDT Jackson Arango DO LAB POCT ORDERABLES - D EVICE Final Result Performing Organization Address [facility] de Phone Number [address] [address] * (ABNORMAL) POCT glucose (06/04/2024 3:55 PM CDT) Glucose, POC 361(H) 70 - 199 mg/dL Comment:Testing performed by : [address] [address] Blood 06/04/2024 3:55 PM CDT 06/04/2024 3:55 PM CDT Jackson Arango DO LAB POCT ORDERABLES - D EVICE Final Result Performing Organization Address [facility] Co de Phone Number [address] [place] [place] [address] * (ABNORMAL) POCT glucose (06/04/2024 12:13 PM CDT) Glucose, POC 356(H) 70 - 199 mg/dL Comment:Testing performed by : [address] [address] Glucose comment 1 RN/MD Notified KISHA Comment:Testing performed by : [facility], [address] [place] [address]., [address] Blood 06/04/2024 12:1 3 PM CDT 06/04/2024 12:13 PM CDT Jackson Arango DO LAB POCT ORDERABLES - D EVICE Final Result Performing Organization Address [facility] Co de Phone Number KISHA 36[address] [facility] [place] [address] * eGFR (06/04/2024 8:26 AM CDT) eGFR >90 >=60 mL/min/1. 73 m2 Comment: [...] was last reviewed 2020. Testing performed by: [facility], [address] [place] [address]., [address] Blood 06/04/2024 8:26 AM CDT 06/04/2024 8:44 AM CDT Jackson Sheffieldurayil DO LAB BLOOD ORDERABLES Fi nal Result Performing Organization Address City/[facility]/ZIP Co de Phone Number KISHA 2450 [facility] [place] [address] * (ABNORMAL) Differential, auto (06/04/2024 8:26 AM CDT) Neutrophil abs 8.12(H) 1.50 - 6.50 K/cumm Comment:Testing performed by : [address] [address] Imm gran abs 0.03 0.00 - 0.10 K/cumm KISHA Comment:Testing performed by : [address] [address] Lymphocyte abs 0.64(L) 0.80 - 3.30 K/cumm [facility] Comment:Testing performed by : [address] [address] Monocyte abs 0.82(H) 0.20 - 0.80 K/cumm [facility] Comment:Testing performed by : [address] [address] Eosinophil abs 0.00 0.00 - 0.50 K/cumm [facility] Comment:Testing performed by : [address] [address] Basophil abs 0.01 0.00 - 0.10 K/cumm [facility] Comment:Testing performed by : [address] [address] Neutrophil pct 84.4 % [facility] Comment: Interpretive Data Percent cell count reference ranges are not reported, since discordance with absolute values may lead to misinterpretation of CBC data. Current Interpretive Data was last revised on 2017. Testing performed by: [address] [address] Imm gran pct 0.3 % [facility] Comment: Interpretive Data Percent cell count reference ranges are not reported, since discordance with absolute values may lead to misinterpretation of CBC data. Current Interpretive Data was last revised on 2017. Testing performed by: [address] [address] Lymphocyte pct 6.7 % [facility] Comment: Interpretive Data Percent cell count reference ranges are not reported, since discordance with absolute values may lead to misinterpretation of CBC data. Current Interpretive Data was last revised on 2017. Testing performed by: [address] [address] Monocyte pct 8.5 % KISHA Comment: Interpretive Data Percent cell count reference ranges are not reported, since discordance with absolute values may lead to misinterpretation of CBC data. Current Interpretive Data was last revised on 2017. Testing performed by: [address] [address] Eosinophil pct 0.0 % KISHA Comment: Interpretive Data Percent cell count reference ranges are not reported, since discordance with absolute values may lead to misinterpretation of CBC data. Current Interpretive Data was last revised on 2017. Testing performed by: [address] [address] Basophil pct 0.1 % KISHA Comment: Interpretive Data Percent cell count reference ranges are not reported, since discordance with absolute values may lead to misinterpretation of CBC data. Current Interpretive Data was last revised on 2017. Testing performed by: [address] [address] Blood 06/04/2024 8:26 AM CDT 06/04/2024 8:44 AM CDT Jackson Arango DO LAB BLOOD ORDERABLES Fi nal Result [facility] 9779 [facility] Department [place] [address] * (ABNORMAL) CBC with auto differential (06/04/2024 8:26 AM CDT) Pathologist [facility] WBC 9.62 3.80 - 9.90 K/cumm Comment:Testing performed by : [address] [address] Hgb 9.1(L) 11.9 - 15.5 g/dL KISHA Comment:Testing performed by : [address] [address] Hct 28.3(L) 35.6 - 45.5 % KISHA Comment:Testing performed by : [address] [address] Plt 270 150 - 400 K/cumm KISHA [place]NS[place] Comment:Testing performed by : [address] [address] MPV 9.4 9.1 - 12.3 fL KISHA [place] Comment:Testing performed by : [address] [address] RBC 3.22(L) 3.90 - 5.20 M/cumm KISHA Comment:Testing performed by : [address] [address] MCV 87.9 81.3 - 96.4 fL KISHA Comment:Testing performed by : [address] [address] MCH 28.3 27.1 - 33.3 pg KISHA Comment:Testing performed by : [address] [address] MCHC 32.2(L) 32.3 - 35.7 g/dL KISHA Comment:Testing performed by : [address] [address] RDW CV 16.0(H) 11.1 - 14.9 % KISHA Comment:Testing performed by : [address] [address] RDW SD 50.4(H) 35.7 - 48.1 fL KISHA Comment:Testing performed by : [address] [address] NRBC abs 0.00 0.00 - 0.01 K/cumm KISHA Comment:Testing performed by : [address] [address] Blood 06/04/2024 8:26 AM CDT 06/04/2024 8:44 AM CDT us Jackson Arango DO LAB BLOOD ORDERABLES Fi nal Result KISHA 9719 [facility] Department [place] [address] * Magnesium (06/04/2024 8:26 AM CDT) Magnesium 1.9 1.4 - 2.5 mg/dL Comment:Testing performed by : [address] [address] Blood 06/04/2024 8:26 AM CDT 06/04/2024 8:44 AM CDT Jackson Arango DO LAB BLOOD ORDERABLES Fi nal Result [facility] 4500 [facility] Department [place] [address] * (ABNORMAL) Comprehensive metabolic panel (06/04/2024 8:26 AM CDT) Pathologist [facility] Sodium 135 135 - 145 mmol/L Comment:Testing performed by : [address] [address] Potassium, pl 3.9 3.3 - 4.9 mmol/L KISHA Comment:Testing performed by : [address] [address] Chloride 102 97 - 110 mmol/L KISHA Comment:Testing performed by : [address] [address] CO2 22 22 - 32 mmol/L KISHA Comment:Testing performed by : [address] [address] Anion gap 11 2 - 15 mmol/L KISHA Comment:Testing performed by : [address] [address] BUN 12 6 - 25 mg/dL KISHA Comment:Testing performed by : [address] [address] Creatinine 0.43(L) 0.60 - 1.10 mg/dL KISHA Comment:Testing performed by : [address] [address] Glucose 254(H) 70 - 199 mg/dL KISHA Comment: Interpretive [...] was last revised 2022. Testing performed by: [address] [address] Calcium 8.7 8.5 - 10.3 mg/dL KISHA Comment:Testing performed by : [address] [address] Bilirubin, total 0.3 0.1 - 1.2 mg/dL KISHA Comment:Testing performed by : [address] [address] Protein, pl 6.7 6.5 - 8.5 g/dL KISHA Comment:Testing performed by : [address] [address] Albumin 3.7 3.5 - 5.0 g/dL KISHA Comment:Testing performed by : [address] [address] Alk phos 97 40 - 130 Units/L KISHA Comment:Testing performed by : [address] [address] ALT 13 7 - 45 Units/L KISHA Comment:Testing performed by : [address] [address] AST 30 10 - 45 Units/L KISHA Comment:Testing performed by : [address] [address] Blood 06/04/2024 8:26 AM CDT 06/04/2024 8:44 AM CDT Jackson Arango DO LAB BLOOD ORDERABLES Fi nal Result KISHA [address] [address] * (ABNORMAL) POCT glucose (06/04/2024 8:24 AM CDT) Glucose, POC 270(H) 70 - 199 mg/dL Comment:Testing performed by : [address], [address] Glucose comment 1 RN/MD Notified KISHA Comment:Testing performed by : [address] [address] Blood 06/04/2024 8:24 AM CDT 06/04/2024 8:24 AM CDT us Jackson Sheffieldurayil DO LAB POCT ORDERABLES - D EVICE Final Result Performing Organization Address [facility] de Phone Number DANNY[address] [address] * POCT glucose (06/03/2024 11:25 PM CDT) Glucose, POC 183 70 - 199 mg/dL Comment:Testing performed by : [address], [address] Glucose comment 1 Follow Protocol KISHA Comment:Testing performed by : [address] [address] Blood 06/03/2024 11:2 5 PM CDT 06/03/2024 11:25 PM CDT us Jackson SPili Collinsapurayil DO LAB POCT ORDERABLES - D EVICE Final Result Performing Organization Address City/[facility] Co de Phone Number [address] [address] * (ABNORMAL) POCT glucose (06/03/2024 9:04 PM CDT) Glucose, POC 331(H) 70 - 199 mg/dL Comment:Testing performed by : [address] [place]., [address] Glucose comment 1 Follow Protocol [facility] Comment:Testing performed by : [address] [address] Blood 06/03/2024 9:04 PM CDT 06/03/2024 9:04 PM CDT Jackson SPili Kalapurayil DO LAB POCT ORDERABLES - D EVICE Final Result Performing Organization Address City/[facility] Co de Phone Number DANNY[address] [place] [address] * (ABNORMAL) POCT glucose (06/03/2024 7:02 PM CDT) Glucose, POC 351(H) 70 - 199 mg/dL Comment:Testing performed by : [address] [address] Blood 06/03/2024 7:02 PM CDT 06/03/2024 7:02 PM CDT Jackson SPili Collinsapurayil DO LAB POCT ORDERABLES - D EVICE Final Result Performing Organization Address [facility] de Phone Number [address] [place] [address] * (ABNORMAL) POCT glucose (06/03/2024 6:21 PM CDT) Glucose, POC 321(H) 70 - 199 mg/dL Comment:Testing performed by : [address] [address] Blood 06/03/2024 6:21 PM CDT 06/03/2024 6:21 PM CDT Jackson SPili Collinsapurayil DO LAB POCT ORDERABLES - D EVICE Final Result Performing Organization Address City/[facility] Co de Phone Number [address] [place] [address] * (ABNORMAL) POCT glucose (06/03/2024 6:19 PM CDT) Pathologist [facility] Glucose, POC 342(H) 70 - 199 mg/dL Comment:Testing performed by : [facility], [address] [place] [address]., [address] Blood 06/03/2024 6:19 PM CDT 06/03/2024 6:19 PM CDT Jackson Arango DO LAB POCT ORDERABLES - D EVICE Final Result KISHA 80[address] [facility] [place] [address] * eGFR (06/03/2024 12:53 PM CDT) [facility] eGFR >90 >=60 mL/min/1. 73 m2 Comment: [...] was last reviewed 2020. Testing performed by: [facility], [address] [place] [address]., [address] Blood 06/03/2024 12:5 3 PM CDT 06/03/2024 1:07 PM CDT us Jackson Arango DO LAB BLOOD ORDERABLES Fi nal Result KISHA 6544 [facility] Department [place] [address] * Differential, auto (06/03/2024 12:53 PM CDT) Neutrophil abs 3.43 1.50 - 6.50 K/cumm Comment:Testing performed by : [address] [address] Imm gran abs 0.02 0.00 - 0.10 K/cumm KISHA Comment:Testing performed by : [address] [address] Lymphocyte abs 0.94 0.80 - 3.30 K/cumm KISHA Comment:Testing performed by : [address] [address] Monocyte abs 0.75 0.20 - 0.80 K/cumm [facility] Comment:Testing performed by : [address] [address] Eosinophil abs 0.00 0.00 - 0.50 K/cumm [facility] Comment:Testing performed by : [address] [address] Basophil abs 0.00 0.00 - 0.10 K/cumm [facility] Comment:Testing performed by : [address] [address] Neutrophil pct 66.7 % [facility] Comment: Interpretive Data Percent cell count reference ranges are not reported, since discordance with absolute values may lead to misinterpretation of CBC data. Current Interpretive Data was last revised on 2017. Testing performed by: [address] [address] Imm gran pct 0.4 % KISHA Comment: Interpretive Data Percent cell count reference ranges are not reported, since discordance with absolute values may lead to misinterpretation of CBC data. Current Interpretive Data was last revised on 2017. Testing performed by: [address] [address] Lymphocyte pct 18.3 % KISHA Comment: Interpretive Data Percent cell count reference ranges are not reported, since discordance with absolute values may lead to misinterpretation of CBC data. Current Interpretive Data was last revised on 2017. Testing performed by: [address] [address] Monocyte pct 14.6 % KISHA Comment: Interpretive Data Percent cell count reference ranges are not reported, since discordance with absolute values may lead to misinterpretation of CBC data. Current Interpretive Data was last revised on 2017. Testing performed by: [address] [address] Eosinophil pct 0.0 % KISHA Comment: Interpretive Data Percent cell count reference ranges are not reported, since discordance with absolute values may lead to misinterpretation of CBC data. Current Interpretive Data was last revised on 2017. Testing performed by: [address] [address] Basophil pct 0.0 % KISHA Comment: Interpretive Data Percent cell count reference ranges are not reported, since discordance with absolute values may lead to misinterpretation of CBC data. Current Interpretive Data was last revised on 2017. Testing performed by: [address] [address] Blood 06/03/2024 12:5 3 PM CDT 06/03/2024 1:07 PM CDT Jackson Arango DO LAB BLOOD ORDERABLES Fi nal Result KISHA 9549 [facility] Department [place] [address] * (ABNORMAL) CBC with auto differential (06/03/2024 12:53 PM CDT) WBC 5.14 3.80 - 9.90 K/cumm Comment:Testing performed by : [address] [address] Hgb 8.8(L) 11.9 - 15.5 g/dL KISHA Comment:Testing performed by : [address] [address] Hct 27.7(L) 35.6 - 45.5 % KISHA Comment:Testing performed by : [address] [address] Plt 233 150 - 400 K/cumm KISHA Comment:Testing performed by : [address] [address] MPV 9.4 9.1 - 12.3 fL KISHA Comment:Testing performed by : [address], [address] RBC 3.12(L) 3.90 - 5.20 M/cumm KISHA Comment:Testing performed by : [address] [address] MCV 88.8 81.3 - 96.4 fL KISHA Comment:Testing performed by : [address], [address] MCH 28.2 27.1 - 33.3 pg KISHA Comment:Testing performed by : [address] [address] MCHC 31.8(L) 32.3 - 35.7 g/dL KISHA Comment:Testing performed by : [address] [address] RDW CV 16.1(H) 11.1 - 14.9 % KISHA Comment:Testing performed by : [address], [address] RDW SD 51.4(H) 35.7 - 48.1 fL KISHA Comment:Testing performed by : [address] [address] NRBC abs 0.00 0.00 - 0.01 K/cumm KISHA Comment:Testing performed by : [address] [address] Blood 06/03/2024 12:5 3 PM CDT 06/03/2024 1:07 PM CDT Jackson Arango DO LAB BLOOD ORDERABLES Fi nal Result Performing Organization Address City/[facility] Co de Phone Number [id number] [address] * Magnesium (06/03/2024 12:53 PM CDT) Pathologist [facility] Magnesium 1.8 1.4 - 2.5 mg/dL Comment:Testing performed by : [address] [address] Blood 06/03/2024 12:5 3 PM CDT 06/03/2024 1:07 PM CDT Jackson SPili DennisdeidratimothySpineGuard LAB BLOOD ORDERABLES Fi nal Result Performing Organization Address [facility] Co de Phone Number KISHA [address] [place] [address] * (ABNORMAL) Comprehensive metabolic panel (06/03/2024 12:53 PM CDT) [facility] Sodium 135 135 - 145 mmol/L Comment:Testing performed by : [address] [address] Potassium, pl 3.0(L) 3.3 - 4.9 mmol/L KISHA Comment:Testing performed by : [address] [address] Chloride 101 97 - 110 mmol/L KISHA Comment:Testing performed by : [address] [address] CO2 24 22 - 32 mmol/L KISHA Comment:Testing performed by : [address] [address] Anion gap 10 2 - 15 mmol/L KISHA Comment:Testing performed by : [address] [address] BUN 11 6 - 25 mg/dL KISHA Comment:Testing performed by : [address] [address] Creatinine 0.53(L) 0.60 - 1.10 mg/dL KISHA Comment:Testing performed by : [address] [address] Glucose 231(H) 70 - 199 mg/dL KISHA Comment: Delta - Results Reviewed Interpretive Data Fasting glucose >/= 126 mg/dl [...] was last revised 2022. Testing performed by: [address] [address] Calcium 8.3(L) 8.5 - 10.3 mg/dL KISHA Comment:Testing performed by : [address] [address] Bilirubin, total 0.3 0.1 - 1.2 mg/dL KISHA Comment:Testing performed by : [address] [address] Protein, pl 6.2(L) 6.5 - 8.5 g/dL KISHA Comment:Testing performed by : [address] [address] Albumin 3.5 3.5 - 5.0 g/dL KISHA Comment:Testing performed by : [address] [address] Alk phos 92 40 - 130 Units/L KISHA Comment:Testing performed by : [address] [address] ALT 12 7 - 45 Units/L KISHA Comment:Testing performed by : [address] [address] AST 22 10 - 45 Units/L KISHA Comment:Testing performed by : [address] [address] Blood 06/03/2024 12:5 3 PM CDT 06/03/2024 1:07 PM CDT Jackson Nickl DO LAB BLOOD ORDERABLES Fi nal Result Performing Organization Address City/[facility]/ZIP Co de Phone Number KISHA [address] [place] [address] * (ABNORMAL) POCT glucose (06/03/2024 11:38 AM CDT) Glucose, POC 286(H) 70 - 199 mg/dL Comment:Testing performed by : [address] [address] Glucose comment 1 Use This Result KISHA TOWNSEND Comment:Testing performed by : [address] [address] Blood 06/03/2024 11:3 8 AM CDT 06/03/2024 11:38 AM CDT us Jackson Nickl DO LAB POCT ORDERABLES - D EVICE Final Result Performing Organization Address [facility] de Phone Number KISHA [address] [address] * POCT glucose (06/03/2024 8:24 AM CDT) Glucose, POC 126 70 - 199 mg/dL Comment:Testing performed by : [address] [address] Glucose comment 1 RN/MD Notified KISHA TOWNSEND Comment:Testing performed by : [address] [address] Blood 06/03/2024 8:2 4 AM CDT 06/03/2024 8:24 AM CDT us Jackson Sheffieldurayil DO LAB POCT ORDERABLES - D EVICE Final Result Performing Organization Address City/[facility]/ZIP Co de Phone Number KISHA [address] [place] [address] * Troponin T high-sensitivity 6-hour (06/03/2024 4:19 AM CDT) Trop T hs 14 <=14 ng/L Comment: Interpretive Data For further hscTnT resources including the diagnostic algorithm and an aid in interpretation, copy and paste this link: https://nrl.testcatalog.org/show/hsTrop Current Interpretive Data last revised 2020. Testing performed by: [address] [address] Trop T hs delta See Comment ng/L KISHA Comment: Inappropriate collection time to report a delta. Testing performed by: [address] [address] Trop T hs pct delta See Comment % KISHA Comment: Inappropriate collection time to report a delta. Testing performed by: [address] [address] Trop T hs interp See Comment KISHA Comment: Inappropriate collection time to report a delta. Testing performed by: [address] [address] Blood 06/03/2024 4:19 AM CDT 06/03/2024 5:22 AM CDT us Reynaldo Cuevas DO LAB BLOOD ORDERABLES Final Res ult Performing Organization Address [facility] Co de Phone Number [facility] [address] [facility] [place] [address] * Thyroid Function [place] (06/03/2024 4:19 AM CDT) TSH 0.75 0.30 - 4.20 mcIUnit/mL Comment:Testing performed by : [address] [address] Blood 06/03/2024 4:19 AM CDT 06/03/2024 5:22 AM CDT Katty Armenta MD LAB BLOOD ORDER PHUONG Final Result Performing Organization Address City/State/[facility] Co de Phone Number DANNY[address] [address] * Troponin T high-sensitivity 4-hour (06/03/2024 12:38 AM CDT) Trop T hs 10 <=14 ng/L Comment: Interpretive Data For further hscTnT resources including the diagnostic algorithm and an aid in interpretation, copy and paste this link: https://nrl.testcatalog.org/show/hsTrop Current Interpretive Data last revised 2020. Testing performed by: [address] [address] Trop T hs delta 2 ng/L KISHA Comment:Testing performed by : [address] [address] Trop T hs interp Insignificant KISHA Comment:Testing performed by : [address] [address] Blood 06/03/2024 12:3 8 AM CDT 06/03/2024 12:41 AM CDT us Reynaldo Cuevas DO LAB BLOOD ORDERABLES Final Res ult Performing Organization Address [facility] Co de Phone Number DANNY[address] [address] * POCT glucose (06/02/2024 11:11 PM CDT) Glucose, POC 174 70 - 199 mg/dL Comment:Testing performed by : [address] [address] Blood 06/02/2024 11:1 1 PM CDT 06/02/2024 11:11 PM CDT us Katty Armenta MD LAB POCT ORDERA BLES - DEVICE Final Result Performing Organization Address [facility] Co de Phone Number DANNY[address] [address] * (ABNORMAL) Urinalysis reflex to microscopic and culture Urine (06/02/2024 10:37 PM CDT) Color, ur Yellow Yellow Comment:Testing performed by : [address] [address] Clarity, ur Clear Clear KISHA Comment:Testing performed by : [address] [address] Specific gravity, ur 1.007 1.003 - 1.030 KISHA Comment:Testing performed by : [address] [address] pH, urine 7.5 KISHA Comment: Interpretive Data U rine pH is affected by diet, medications, systemic acid-base disturbances, and renal tubular function. pH may affect urinary stone formation. For example, urine pH below 6.0 may help reduce the tendency for calcium phosphate stones and pH greater than 6.0 may reduce the tendency for uric acid stone formation. Source: [facility] [place] Current Interpretive Data was last revised on 2017 Testing performed by: [address] [address] Protein, ur ql Negative Negative KISHA Comment:Testing performed by : [address] [address] Glucose, ur ql Negative Negative KISHA Comment:Testing performed by : [address] [address] Ketones, ur Negative Negative KISHA Comment:Testing performed by : [address] [address] Bilirubin, ur Negative Negative KISHA Comment:Testing performed by : [address] [address] Blood, ur Negative Negative KISHA Comment:Testing performed by : [address] [address] Urobilinogen, ur <2.0 <2.0 mg/dL KISHA Comment:Testing performed by : [address] [address] Nitrite, ur Positive(A) Negative KISHA Comment:Testing performed by : [address] [address] Leukocyte esterase, ur 4+(A) Negative KISHA Comment:Testing performed by : [address] [address] UA reflex comment Reflex to microscopic UA will be performed. KISHA Comment:Testing performed by : [address] [address] Urine 06/02/2024 10:3 7 PM CDT 06/02/2024 10:39 PM CDT us Reynaldo Cuevas DO LAB MICROBIOLOGY - GENERAL ORD ERABLES Final Result KISHA [address] [facility] [place] [address] * (ABNORMAL) Urinalysis, microscopic only (06/02/2024 10:37 PM CDT) WBC, ur 21-50(A) 0 - 5 /HPF Comment:Testing performed by : [address] [address] RBC, ur 0-2 0 - 2 /HPF KISHA Comment:Testing performed by : [address] [address] Epithelial cells, squamous, ur 11-20(A) 0 - 5 /HPF KISHA Comment:Testing performed by : [address] [address] Bacteria, ur 1+(A) KISHA Comment:Testing performed by : [address] [address] Mucous, ur Present(A) KISHA Comment:Testing performed by : [address] [address] Culture Reflex Comment Reflex to urine culture will be performed. KISHA Comment:Testing performed by : [address] [address] Urine 06/02/2024 10:3 7 PM CDT 06/02/2024 10:39 PM CDT Reynaldo Cuevas DO LAB URINE ORDERABLES Final Res ult Performing Organization Address [facility] Co de Phone Number DANNY[address] [place] [address] * (ABNORMAL) Urine culture Urine (06/02/2024 10:37 PM CDT) Report Final Report: Greater than or equal to 100,000 colonies/mL of Escherichia coli (.) Comment:Testing performed by : [facility], [address] [place] [address] Organism ESCHERICHIA COLI [facility] Urine 06/02/2024 10:3 7 PM CDT 06/03/2024 5:22 AM CDT Narrative DANNYELVIN - 06/05/2024 12:01 PM CDT Testing performed by [facility] Microbiology Laboratory ([phone]) Organism Antibiotic Method Susceptibility Escherichia coli Ampicillin INTERPRETATION Resistant Escherichia coli Cefazolin INTERPRETATION Susceptible Escherichia coli Nitrofurantoin INTERPRETATION Susceptible Escherichia coli Gentamicin INTERPRETATION Susceptible Escherichia coli Trimethoprim with Sulfamethoxazole IN TERPRETATION Susceptible Escherichia coli Meropenem INTERPRETATION Susceptible Escherichia coli Cefepime INTERPRETATION Susceptible Escherichia coli Ciprofloxacin INTERPRETATION Resistant Escherichia coli Ceftazidime INTERPRETATION Susceptible Escherichia coli Ceftriaxone INTERPRETATION Susceptible Escherichia coli Piperacillin/Tazobactam INTERPRETATIO N Susceptible Escherichia coli Cephalexin INTERPRETATION Susceptible Escherichia coli Cefuroxime-axetil INTERPRETATION Susceptible Escherichia coli Cefdinir INTERPRETATION Susceptible Katty Armenta MD LAB MICROBIOLOG Y - GENERAL ORDERABLES Final Result Performing Organization Address City/[facility]/ZIP Co de Phone Number DANNY[address] [place] [address] * Troponin T high-sensitivity 2-hour (06/02/2024 10:21 PM CDT) Trop T hs 9 <=14 ng/L Comment: Interpretive Data For further hscTnT resources including the diagnostic algorithm and an aid in interpretation, copy and paste this link: https://nrl.testcatalog.org/show/hsTrop Current Interpretive Data last revised 2020. Testing performed by: [facility], [address] [place] [address]., [address] Trop T hs delta 1 ng/L KISHA TOWNSEND Comment:Testing performed by : [address] [address] Trop T hs interp Insignificant KISHA TOWNSEND Comment:Testing performed by : [address] [address] Blood 06/02/2024 10:2 1 PM CDT 06/02/2024 10:25 PM CDT us Reynaldo Cuevas DO LAB BLOOD ORDERABLES Final Res ult Performing Organization Address [facility]/ZIP Co de Phone Number KISHA [address] [place] [address] * POCT glucose (06/02/2024 10:19 PM CDT) Glucose, POC 152 70 - 199 mg/dL Comment:Testing performed by : [facility], [address] [place] [address]., [address] Glucose comment 1 RN/MD Notified KISHA Comment:Testing performed by : [address] [address] Blood 06/02/2024 10:1 9 PM CDT 06/02/2024 10:19 PM CDT us Katty Armenta MD LAB POCT ORDERA BLES - DEVICE Final Result Performing Organization Address City/[facility]/ZIP Co de Phone Number DANNY[address] [place] [address] * Troponin T high-sensitivity series (baseline, 2hr, 4hr, 6hr) (06/02/2024 8:11 PM CDT) Pathologist [facility] Trop T hs 8 <=14 ng/L Comment: Interpretive Data For further hscTnT resources including the diagnostic algorithm and an aid in interpretation, copy and paste this link: https://nrl.testcatalog.org/show/hsTrop Current Interpretive Data last revised 2020. Testing performed by: [facility], [address] [place] [address]., [address] Blood 06/02/2024 8:11 PM CDT 06/02/2024 8:15 PM CDT Reynaldo Kobojo DO LAB BLOOD ORDERABLES Final Res ult Performing Organization Address [facility] Co de Phone Number DANNY[address] [place] [address] * Sepsis Lactate w/ Reflex (06/02/2024 8:11 PM CDT) Pathologist [facility] Sepsis Lactate 1.2 0.7 - 2.0 mmol/L Comment:Testing performed by : [address] [address] Blood 06/02/2024 8:11 PM CDT 06/02/2024 8:15 PM CDT Reynaldo Kobojo DO LAB BLOOD ORDERABLES Final Res ult Performing Organization Address [facility] de Phone Number [address] [address] * eGFR (06/02/2024 8:11 PM CDT) eGFR >90 >=60 mL/min/1. 73 m2 Comment: [...] was last reviewed 2020. Testing performed by: [address] [address] Blood 06/02/2024 8:11 PM CDT 06/02/2024 8:15 PM CDT us Reynaldo Cuevas DO LAB BLOOD ORDERABLES Final Res ult KISHA [address] [facility] Department [place] [address] * (ABNORMAL) Comprehensive metabolic panel (06/02/2024 8:11 PM CDT) Sodium 136 135 - 145 mmol/L Comment:Testing performed by : [address] [address] Potassium, pl 3.7 3.3 - 4.9 mmol/L KISHA Comment: Hemolyzed; Potassium value may be falsely elevated by as much as 1.0 mmol/L. Suggest redraw and reanalysis. Testing performed by: [address] [address] Chloride 99 97 - 110 mmol/L KISHA Comment:Testing performed by : [address] [address] CO2 27 22 - 32 mmol/L KISHA Comment:Testing performed by : [address] [address] Anion gap 10 2 - 15 mmol/L KISHA Comment:Testing performed by : [address] [address] BUN 8 6 - 25 mg/dL KISHA Comment:Testing performed by : [address] [address] Creatinine 0.56(L) 0.60 - 1.10 mg/dL KISHA Comment:Testing performed by : [address] [address] Glucose 71 70 - 199 mg/dL KISHA Comment: Interpretive [...] was last revised 2022. Testing performed by: [address] [address] Calcium 9.0 8.5 - 10.3 mg/dL KISHA Comment:Testing performed by : [address] [address] Bilirubin, total 0.5 0.1 - 1.2 mg/dL [facility] Comment:Testing performed by : [address] [address] Protein, pl 7.1 6.5 - 8.5 g/dL [facility] Comment:Testing performed by : [address] [address] Albumin 4.1 3.5 - 5.0 g/dL [facility] Comment:Testing performed by : [address] [address] Alk phos 112 40 - 130 Units/L [facility] Comment:Testing performed by : [address] [address] ALT 15 7 - 45 Units/L [facility] Comment:Testing performed by : [address] [address] AST 30 10 - 45 Units/L KISHA Comment: Hemolyzed; result may be falsely elevated Testing performed by: [address] [address] Blood 06/02/2024 8:11 PM CDT 06/02/2024 8:15 PM CDT us Reynaldo Cuevas DO LAB BLOOD ORDERABLES Final Res ult KISHA [address] [facility] Department [place] [address] * XR Chest 1 Vw Portable (if patient condition/safety warrant portable) (06/02/2024 7:45 PM CDT) Anatomical Region Laterality Modality Body, Chest N/A Computed Radiogr aphy 06/02/2024 7:51 PM CDT Narrative 06/02/2024 7:52 PM CDT EXAM DESCRIPTION: XR CHEST 1 VIEW REASON FOR STUDY: cough Pt reports Two times today my legs have gave out on me. I fell two times this morning around 0630. Pt reports she woke up around 0630AM and went to bed around 0100 today. Pt denies any injury from fall. Denies any and LOC. Pt is currently xarelto and plavix. Pt was recently in ED for right breast hematoma. TECHNIQUE: Single radiographic view of the chest. COMPARISON: 05/30/2024 FINDINGS: Suboptimal evaluation due to patient positioning, rotation, and/or technique. Findings made within these confines. LINES/TUBES: Overlying ECG leads. LUNGS: No focal consolidation. No pneumothorax. No pleural effusion. HEART/MEDIASTINUM: Unchanged cardiomediastinal contours. BONES/SOFT TISSUES: No acute osseous abnormality. Postsurgical changes of the left axilla and right chest wall. IMPRESSION: No radiographic evidence of an acute cardiopulmonary abnormality. THIS IS AN ELECTRONICALLY VERIFIED FINAL REPORT 06/02/2024 7:52 PM - Electronically signed by Dany Vu M.D. NS: NS Report ID: [id number] Reading Location: [id number] Procedure Note Dany Vu MD - 06/02/2024 EXAM DESCRIPTION: XR CHEST 1 VIEW REASON FOR STUDY: cough Pt reports Two times today my legs have gave out on me. I fell two timesthis morning around 0630. Pt reports she woke up around 0630AM and went to bed around 0100 today. Pt denies any injury from fall. Denies any and LOC.Pt is currently xarelto and plavix. Pt was recently in ED for right breast hematoma. TECHNIQUE: Single radiographic view of the chest. COMPARISON: 05/30/2024 FINDINGS: Suboptimal evaluation due to patient positioning, rotation,and/or technique. Findings made within these confines. LINES/TUBES: Overlying ECG leads. LUNGS: No focal consolidation. No pneumothorax. No pleural effusion. HEART/MEDIASTINUM: Unchanged cardiomediastinal contours. BONES/SOFT TISSUES: No acute osseous abnormality. Postsurgical changesof the left axilla and right chest wall. IMPRESSION: No radiographic evidence of an acute cardiopulmonaryabnormality. THIS IS AN ELECTRONICALLY VERIFIED FINAL REPORT 06/02/2024 7:52 PM - Electronically signed by Dany Vu M.D. NS: NS Report ID: [id number] Reading Location: [place] [address] Reynaldo Cuevas DO IMG XR PROCEDURES Final Result * ECG 12 lead (06/02/2024 7:29 PM CDT) Ventricular Rate EKG/Min 120 BPM [facility] Atrial Rate 120 BPM [facility] ME-Interval (MSEC) 206 ms [facility] QRS-Interval (MSEC) 66 ms [facility] QT-Interval (MSEC) 304 ms [facility] QTc 429 ms [facility] P [place] -18 degrees [facility] R [place] 22 degrees [facility] T [place] 109 degrees [facility] Diagnosis Sinus tachycardia 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 rate has increased BY 49 BPM Confirmed by AUDRA CLAIRE M.D. ([id number]) on 06/08/2024 1:30:00 PM [facility] 06/02/2024 7:29 PM CDT 06/08/2024 1:30 PM CDT Reynaldo Cuevas DO ECG ORDERABLES Final Result [facility] * (ABNORMAL) Influenza A/B, RSV, and COVID-19 PCR Nasopharyngeal (06/02/2024 7:24 PM CDT) Pathologist [facility] COVID-19 RNA Positive(A) Negative Comment:Testing performed by : [address] [address] Influenza A RNA Negative Negative [facility] Comment:Testing performed by : [address] [address] Influenza B RNA Negative Negative [facility] Comment:Testing performed by : [address] [address] RSV RNA Negative Negative [facility] Comment: Interpretive data: Testing performed by [facility]. This test is performed using the [employer] Xpert Xpress CoV-2/Flu/RSV plus assay. This is a multiplex, real-time reverse transcriptase PCR assay intended for the qualitative detection of nucleic acid from SARS-CoV-2, influenza A, influenza B, and respiratory syncytial virus. This assay has been cleared by the [place] Food and Drug administration. The performance characteristics have been verified by the [facility]. Results must be considered in the clinical context, and a negative result does not rule out infection. Interpretive Data last revised 2023 Testing performed by: [address] [address] Nasopharyngeal 06/02/2024 7: 24 PM CDT 06/02/2024 7:35 PM CDT Narrative [facility] - 06/02/2024 8:16 PM CDT Is the Patient experiencing symptoms consistent with COVID?->Yes Reynaldo Cuevas DO LAB MICROBIOLOGY - GENERAL ORD ERABLES Final Result KISHA [address] [facility] Department [place] [address] * (ABNORMAL) Differential, auto (06/02/2024 7:24 PM CDT) Neutrophil abs 8.49(H) 1.50 - 6.50 K/cumm Comment:Testing performed by : [address] [address] Imm gran abs 0.06 0.00 - 0.10 K/cumm [facility] Comment:Testing performed by : [address] [address] Lymphocyte abs 1.02 0.80 - 3.30 K/cumm [facility] Comment:Testing performed by : [address] [address] Monocyte abs 0.65 0.20 - 0.80 K/cumm [facility] Comment:Testing performed by : [address] [address] Eosinophil abs 0.00 0.00 - 0.50 K/cumm [facility] Comment:Testing performed by : [address] [address] Basophil abs 0.01 0.00 - 0.10 K/cumm [facility] Comment:Testing performed by : [address] [address] Neutrophil pct 82.9 % [facility] Comment: Interpretive Data Percent cell count reference ranges are not reported, since discordance with absolute values may lead to misinterpretation of CBC data. Current Interpretive Data was last revised on 2017. Testing performed by: [address] [address] Imm gran pct 0.6 % [facility] Comment: Interpretive Data Percent cell count reference ranges are not reported, since discordance with absolute values may lead to misinterpretation of CBC data. Current Interpretive Data was last revised on 2017. Testing performed by: [address] [address] Lymphocyte pct 10.0 % [facility] Comment: Interpretive Data Percent cell count reference ranges are not reported, since discordance with absolute values may lead to misinterpretation of CBC data. Current Interpretive Data was last revised on 2017. Testing performed by: [address] [address] Monocyte pct 6.4 % [facility] Comment: Interpretive Data Percent cell count reference ranges are not reported, since discordance with absolute values may lead to misinterpretation of CBC data. Current Interpretive Data was last revised on 2017. Testing performed by: [address] [address] Eosinophil pct 0.0 % KISHA Comment: Interpretive Data Percent cell count reference ranges are not reported, since discordance with absolute values may lead to misinterpretation of CBC data. Current Interpretive Data was last revised on 2017. Testing performed by: [address] [address] Basophil pct 0.1 % KISHA Comment: Interpretive Data Percent cell count reference ranges are not reported, since discordance with absolute values may lead to misinterpretation of CBC data. Current Interpretive Data was last revised on 2017. Testing performed by: [address] [address] Blood 06/02/2024 7:24 PM CDT 06/02/2024 7:36 PM CDT us Reynaldo Cuevas DO LAB BLOOD ORDERABLES Final Res ult KISHA [address] [facility] Department [place] [address] * (ABNORMAL) CBC with auto differential (06/02/2024 7:24 PM CDT) WBC 10.23(H) 3.80 - 9.90 K/cumm Comment:Testing performed by : [address] [address] Hgb 10.3(L) 11.9 - 15.5 g/dL KISHA TOWNSEND Comment:Testing performed by : [address] [address] Hct 32.8(L) 35.6 - 45.5 % KISHA Comment:Testing performed by : [address] [address] Plt 385 150 - 400 K/cumm KISHA TOWNSEND Comment:Testing performed by : [address] [address] MPV 9.5 9.1 - 12.3 fL KISHA TOWNSEND Comment:Testing performed by : [address] [address] RBC 3.64(L) 3.90 - 5.20 M/cumm KISHA TOWNSEND Comment:Testing performed by : [address] [address] MCV 90.1 81.3 - 96.4 fL KISHA Comment:Testing performed by : [address] [address] MCH 28.3 27.1 - 33.3 pg KISHA TOWNSEND Comment:Testing performed by : [address] [address] MCHC 31.4(L) 32.3 - 35.7 g/dL KISHA TOWNSEND Comment:Testing performed by : [address] [address] RDW CV 16.2(H) 11.1 - 14.9 % KISHA Comment:Testing performed by : [address] [address] RDW SD 52.2(H) 35.7 - 48.1 fL KISHA TOWNSEND Comment:Testing performed by : [address] [address] NRBC abs 0.00 0.00 - 0.01 K/cumm KISHA Comment:Testing performed by : [address] [address] Blood 06/02/2024 7:24 PM CDT 06/02/2024 7:36 PM CDT us Reynaldo Cuevas DO LAB BLOOD ORDERABLES Final Res ult KISHA TOWNSEND [address] [facility] [place] [address] * CT Chest WO Contrast (05/30/2024 7:08 PM CDT) Anatomical Region Laterality Modality Body N/A Computed Tomogra phy 05/30/2024 7:35 PM CDT Narrative 05/30/2024 7:39 PM CDT EXAM DESCRIPTION: CT CHEST WO CONTRAST REASON FOR STUDY: Hematoma presents to ED for report of bleeding/possible hematoma to right breast. Pt reports she had right breast lumpectomy done on 04/07/24 and had a breast hematoma last month. Pt reports over the past four days she has had bleeding to right breast site and is concerned for possible hematoma again. Pt does report she is currently on plavix and xarelto. Pt denies any pain to right breast. TECHNIQUE: CT scan of the chest performed without intravenous contrast using helical scanning technique. Reconstructed coronal and sagittal MPR images reviewed. All images stored on PACS. Automated exposure control was used as a dose optimization technique for this examination. COMPARISON: 05/04/2024 FINDINGS: The sensitivity for detection of solid visceral lesions is diminished without the use of intravenous contrast. LUNGS: No nodules or masses. No pneumonia. Diffuse centrilobular emphysema. PLEURA: No effusion. No pneumothorax. MEDIASTINUM/YESSICA: No identified masses or abnormal nodes. HEART: Heart size is normal with no pericardial effusion. CORONARY ARTERY CALCIFICATION: Present VASCULATURE: No thoracic aortic aneurysm. AXILLA: No adenopathy. CHEST WALL: Within the right breast, there is an 8.9 cm x 11.8 cm x 2.2 cm hyperdense fluid collection characteristic of hematoma. This is located just deep to the skin surface and directly abuts the chest wall musculature. There are several gas bubbles within the collection which may reflect communication to the skin surface. Correlate clinically to exclude infected hematoma. On 05/04/2024, the hematoma measured 11.9 cm x 5.4 cm x 7.2 cm. HARDWARE/LINES/TUBES: None. UPPER ABDOMEN: No significant abnormality. MUSCULOSKELETAL: No significant abnormality. OTHER: No other significant abnormality. IMPRESSION: 8.9 cm x 11.8 cm x 2.2 cm hyperdense fluid collection within the right breast characteristic of hematoma. This is located just deep to the skin surface and directly abuts the chest wall musculature. There are several gas bubbles within the collection which may reflect communication to the skin surface. Correlate clinically to exclude infected hematoma. Emphysema. Coronary artery calcification. THIS IS AN ELECTRONICALLY VERIFIED FINAL REPORT 05/30/2024 7:39 PM - Electronically signed by Jeronimo Kumar M.D. KT: KT Report ID: [id number] Reading Location: [place] [address] Procedure Note Jeronimo Kumar MD - 05/30/2024 EXAM DESCRIPTION: CT CHEST WO CONTRAST REASON FOR STUDY: Hematoma presents to ED for report of bleeding/possible hematoma to right breast.Pt reports she had right breast lumpectomy done on 04/07/24 and had a breast hematoma last month. Pt reports over the past four days she has hadbleeding to right breast site and is concerned for possible hematoma again. Ptdoes report she is currently on plavix and xarelto. Pt denies any pain to right breast. TECHNIQUE: CT scan of the chest performed without intravenous contrastusing helical scanning technique. Reconstructed coronal and sagittal MPR images reviewed. All images stored on PACS. Automated exposure control was usedas a dose optimization technique for this examination. COMPARISON: 05/04/2024 FINDINGS: The sensitivity for detection of solid visceral lesions is diminished without the use of intravenous contrast. LUNGS: No nodules or masses. No pneumonia. Diffuse centrilobular emphysema. PLEURA: No effusion. No pneumothorax. MEDIASTINUM/YESSICA: No identified masses or abnormal nodes. HEART: Heart size is normal with no pericardial effusion. CORONARY ARTERY CALCIFICATION: Present VASCULATURE: No thoracic aortic aneurysm. AXILLA: No adenopathy. CHEST WALL: Within the right breast, there is an 8.9 cm x 11.8 cm x 2.2cm hyperdense fluid collection characteristic of hematoma. This is locatedjust deep to the skin surface and directly abuts the chest wall musculature.There are several gas bubbles within the collection which may reflectcommunication to the skin surface. Correlate clinically to exclude infected hematoma.On 05/04/2024, the hematoma measured 11.9 cm x 5.4 cm x 7.2 cm. HARDWARE/LINES/TUBES: None. UPPER ABDOMEN: No significant abnormality. MUSCULOSKELETAL: No significant abnormality. OTHER: No other significant abnormality. IMPRESSION: 8.9 cm x 11.8 cm x 2.2 cm hyperdense fluid collection within the rightbreast characteristic of hematoma. This is located just deep to the skin surfaceand directly abuts the chest wall musculature. There are several gas bubbles within the collection which may reflect communication to the skin surface. Correlate clinically to exclude infected hematoma. Emphysema. Coronary artery calcification. THIS IS AN ELECTRONICALLY VERIFIED FINAL REPORT 05/30/2024 7:39 PM - Electronically signed by Jeronimo Kumar M.D. KT: KT Report ID: [id number] Reading Location: [place] [address] us Bhupinder WINN IMG CT PROCEDURES Final Result * eGFR (05/30/2024 6:56 PM CDT) eGFR >90 >=60 mL/min/1. 73 m2 Comment: [...] was last reviewed 2020. Testing performed by: [facility], [address] [place] [address], [place]., [address] Blood 05/30/2024 6:56 PM CDT 05/30/2024 7:03 PM CDT us Bhupinder WINN LAB BLOOD ORDERABL ES Final Result K[facility]HA [address] [facility] Department [place] [address] * Differential, auto (05/30/2024 6:56 PM CDT) Neutrophil abs 4.92 1.50 - 6.50 K/cumm Comment:Testing performed by : [address] [address] Imm gran abs 0.01 0.00 - 0.10 K/cumm KISHA Comment:Testing performed by : [address] [address] Lymphocyte abs 1.09 0.80 - 3.30 K/cumm KISHA Comment:Testing performed by : [address] [address] Monocyte abs 0.57 0.20 - 0.80 K/cumm KISHA Comment:Testing performed by : [address] [address] Eosinophil abs 0.00 0.00 - 0.50 K/cumm KISHA Comment:Testing performed by : [address] [address] Basophil abs 0.01 0.00 - 0.10 K/cumm KISHA Comment:Testing performed by : [address] [address] Neutrophil pct 74.5 % KISHA Comment: Interpretive Data Percent cell count reference ranges are not reported, since discordance with absolute values may lead to misinterpretation of CBC data. Current Interpretive Data was last revised on 2017. Testing performed by: [address] [address] Imm gran pct 0.2 % KISHA Comment: Interpretive Data Percent cell count reference ranges are not reported, since discordance with absolute values may lead to misinterpretation of CBC data. Current Interpretive Data was last revised on 2017. Testing performed by: [address] [address] Lymphocyte pct 16.5 % KISHA Comment: Interpretive Data Percent cell count reference ranges are not reported, since discordance with absolute values may lead to misinterpretation of CBC data. Current Interpretive Data was last revised on 2017. Testing performed by: [address] [address] Monocyte pct 8.6 % KISHA Comment: Interpretive Data Percent cell count reference ranges are not reported, since discordance with absolute values may lead to misinterpretation of CBC data. Current Interpretive Data was last revised on 2017. Testing performed by: [address] [address] Eosinophil pct 0.0 % KISHA Comment: Interpretive Data Percent cell count reference ranges are not reported, since discordance with absolute values may lead to misinterpretation of CBC data. Current Interpretive Data was last revised on 2017. Testing performed by: [address] [address] Basophil pct 0.2 % KISHA Comment: Interpretive Data Percent cell count reference ranges are not reported, since discordance with absolute values may lead to misinterpretation of CBC data. Current Interpretive Data was last revised on 2017. Testing performed by: [address] [address] Blood 05/30/2024 6:56 PM CDT 05/30/2024 7:03 PM CDT us Bhupinder WINN LAB BLOOD ORDERABL ES Final [facility] [facility] Department [place] [address] * (ABNORMAL) CBC with auto differential (05/30/2024 6:56 PM CDT) WBC 6.60 3.80 - 9.90 K/cumm Comment:Testing performed by : [address] [address] Hgb 9.8(L) 11.9 - 15.5 g/dL KISHA Comment:Testing performed by : [address] [address] Hct 30.7(L) 35.6 - 45.5 % KISHA Comment:Testing performed by : [address] [address] Plt 329 150 - 400 K/cumm KISHA Comment:Testing performed by : [address], [address] MPV 9.4 9.1 - 12.3 fL KISHA Comment:Testing performed by : [address], [address] RBC 3.45(L) 3.90 - 5.20 M/cumm KISHA Comment:Testing performed by : [address], [address] MCV 89.0 81.3 - 96.4 fL KISHA Comment:Testing performed by : [address], [address] MCH 28.4 27.1 - 33.3 pg KISHA Comment:Testing performed by : [address], [address] MCHC 31.9(L) 32.3 - 35.7 g/dL KISHA Comment:Testing performed by : [address], [address] RDW CV 16.3(H) 11.1 - 14.9 % KISHA Comment:Testing performed by : [address], [address] RDW SD 51.9(H) 35.7 - 48.1 fL KISHA Comment:Testing performed by : [address], [address] NRBC abs 0.00 0.00 - 0.01 K/cumm KISHA Comment:Testing performed by : [address], [address] Blood 05/30/2024 6:56 PM CDT 05/30/2024 7:03 PM CDT us Bhupinder WINN LAB BLOOD ORDERABL ES Final Result [place] [id number] [place] [address] * (ABNORMAL) aPTT (05/30/2024 6:56 PM CDT) aPTT 40(H) 22 - 37 sec Comment: Ref Range High Interpretive data aPTT test has not been evaluated for monitoring heparin therapy. The anti-Xa is the preferred test. Current interpretive data was last revised on 2019. Testing performed by: [address] [address] Blood 05/30/2024 6:56 PM CDT 05/30/2024 7:03 PM CDT Bhupinder Tab Asiaantonide Adesida PA LAB BLOOD ORDERABL ES Final Result Performing Organization Address [facility] de Phone Number [address] [address] * (ABNORMAL) Protime-INR (05/30/2024 6:56 PM CDT) PT 20.2(H) 12.0 - 14.6 sec Comment: Ref Range High Testing performed by: [address] [address] INR 1.8(H) 0.9 - 1.2 [facility] Comment: Ref Range High Interpretive data Oral anticoagulant therapeutic ranges: Venous thromboembolism prophylaxis or treatment: 2.0-3.0 CARDIOLOGY Standard range: 2.0-3.0 High-intensity range: 2.5-3.5 Refer to indication-specific guidelines for appropriate target ranges for prosthetic heart valve replacement. Current interpretive data was last revised on 2019. Testing performed by: [address] [address] Blood 05/30/2024 6:56 PM CDT 05/30/2024 7:03 PM CDT Adebowale Tolulade Adesida PA LAB BLOOD ORDERABL ES Final Result [facility] [address] [facility] Department [place] [address] * (ABNORMAL) Comprehensive metabolic panel (05/30/2024 6:56 PM CDT) Sodium 139 135 - 145 mmol/L Comment:Testing performed by : [address] [address] Potassium, pl 3.7 3.3 - 4.9 mmol/L KISHA Comment: Hemolyzed; Potassium value may be falsely elevated by as much as 1.0 mmol/L. Suggest redraw and reanalysis. Testing performed by: [address] [address] Chloride 102 97 - 110 mmol/L KISHA Comment:Testing performed by : [address] [address] CO2 26 22 - 32 mmol/L KISHA Comment:Testing performed by : [address] [address] Anion gap 11 2 - 15 mmol/L KISHA Comment:Testing performed by : [address] [address] BUN 9 6 - 25 mg/dL KISHA Comment:Testing performed by : [address] [address] Creatinine 0.52(L) 0.60 - 1.10 mg/dL KISHA Comment:Testing performed by : [address] [address] Glucose 168 70 - 199 mg/dL KISHA Comment: Interpretive [...] classification and Diagnosis of Diabetes Diabetes Care 202; 46: S19-S40. Current interpretive data was last revised 2022. Testing performed by: [facility], [address] [place] [address]., [address] Calcium 9.2 8.5 - 10.3 mg/dL KISHA Comment:Testing performed by : [address] [address] Bilirubin, total 0.5 0.1 - 1.2 mg/dL KISHA Comment:Testing performed by : [address] [address] Protein, pl 7.1 6.5 - 8.5 g/dL KISHA Comment:Testing performed by : [address] [address] Albumin 4.1 3.5 - 5.0 g/dL KISHA Comment:Testing performed by : [address] [address] Alk phos 120 40 - 130 Units/L KISHA Comment:Testing performed by : [address] [address] ALT 14 7 - 45 Units/L KISHA Comment:Testing performed by : [address] [address] AST 30 10 - 45 Units/L KISHA Comment: Hemolyzed; result may be falsely elevated Testing performed by: [address] [address] Blood 05/30/2024 6:56 PM CDT 05/30/2024 7:03 PM CDT Bhupinder WINN LAB BLOOD ORDERABL ES Final Result [facility] [address] [facility] Department of Laboratories [place], [place] [id number] * POCT glucose (05/07/2024 8:36 AM CDT) [facility] Glucose, POC 172 70 - 199 mg/dL Comment:Testing performed by : [address] [address] Blood 05/07/2024 8:36 AM CDT 05/07/2024 8:36 AM CDT us Tom Polanco MD LAB POCT ORDERABLES - DEVICE Final Result [facility] [address] [facility] Department [place] [address] * (ABNORMAL) Differential, auto (05/07/2024 5:17 AM CDT) Neutrophil abs 6.9(H) 1.5 - 6.5 K/cumm Comment:Testing performed by : [address] [address] Imm gran abs 0.0 0.0 - 0.1 K/cumm KISHA Comment:Testing performed by : [address] [address] Lymphocyte abs 2.1 0.8 - 3.3 K/cumm KISHA Comment:Testing performed by : [address] [address] Monocyte abs 1.4(H) 0.2 - 0.8 K/cumm KISHA Comment:Testing performed by : [address] [address] Eosinophil abs 0.0 0.0 - 0.5 K/cumm KISHA Comment:Testing performed by : [address] [address] Basophil abs 0.0 0.0 - 0.1 K/cumm KISHA Comment:Testing performed by : [address] [address] Neutrophil pct 66.0 % KISHA Comment: Interpretive Data Percent cell count reference ranges are not reported, since discordance with absolute values may lead to misinterpretation of CBC data. Current Interpretive Data was last revised on 2017. Testing performed by: [address] [address] Imm gran pct 0.4 % KISHA Comment: Interpretive Data Percent cell count reference ranges are not reported, since discordance with absolute values may lead to misinterpretation of CBC data. Current Interpretive Data was last revised on 2017. Testing performed by: [address] [address] Lymphocyte pct 19.9 % [facility] Comment: Interpretive Data Percent cell count reference ranges are not reported, since discordance with absolute values may lead to misinterpretation of CBC data. Current Interpretive Data was last revised on 2017. Testing performed by: [address] [address] Monocyte pct 13.6 % [facility] Comment: Interpretive Data Percent cell count reference ranges are not reported, since discordance with absolute values may lead to misinterpretation of CBC data. Current Interpretive Data was last revised on 2017. Testing performed by: [address] [address] Eosinophil pct 0.0 % [facility] Comment: Interpretive Data Percent cell count reference ranges are not reported, since discordance with absolute values may lead to misinterpretation of CBC data. Current Interpretive Data was last revised on 2017. Testing performed by: [address] [address] Basophil pct 0.1 % [facility] Comment: Interpretive Data Percent cell count reference ranges are not reported, since discordance with absolute values may lead to misinterpretation of CBC data. Current Interpretive Data was last revised on 2017. Testing performed by: [address] [address] Blood 05/07/2024 5:17 AM CDT 05/07/2024 5:52 AM CDT us Tom Polanco MD LAB BLOOD ORDERABLES F inal Result [facility] [address] [facility] Department [place] [address] * (ABNORMAL) CBC with auto differential (05/07/2024 5:17 AM CDT) WBC 10.4(H) 3.8 - 9.9 K/cumm Comment:Testing performed by : [address], [address] Hgb 10.4(L) 11.9 - 15.5 g/dL KISHA Comment:Testing performed by : [address], [address] Hct 30.5(L) 35.6 - 45.5 % KISHA Comment:Testing performed by : [address], [address] Plt 305 150 - 400 K/cumm KISHA Comment:Testing performed by : [address], [address] MPV 9.6 9.1 - 12.3 fL KISHA Comment:Testing performed by : [address], [address] RBC 3.53(L) 3.90 - 5.20 M/cumm KISHA Comment:Testing performed by : [address], [address] MCV 86.4 81.3 - 96.4 fL KISHA Comment:Testing performed by : [address], [address] MCH 29.5 27.1 - 33.3 pg KISHA Comment:Testing performed by : [address], [address] MCHC 34.1 32.3 - 35.7 g/dL KISHA Comment:Testing performed by : [address], [address] RDW CV 15.1(H) 11.1 - 14.9 % KISHA Comment:Testing performed by : [address], [address] RDW SD 46.0 35.7 - 48.1 fL KISHA Comment:Testing performed by : [address], [address] NRBC abs 0.00 0.00 - 0.01 K/cumm KISHA Comment:Testing performed by : [address], [address] Blood 05/07/2024 5:17 AM CDT 05/07/2024 5:52 AM CDT us Tom Polanco MD LAB BLOOD ORDERABLES F inal Result Performing Organization Address [facility] Co de Phone Number KISHA [address] [address] * POCT glucose (05/07/2024 4:53 AM CDT) Glucose, POC 160 70 - 199 mg/dL Comment:Testing performed by : [address] [address] Blood 05/07/2024 4:53 AM CDT 05/07/2024 4:53 AM CDT us Tom Polanco MD LAB POCT ORDERABLES - DEVICE Final Result Performing Organization Address [facility] Co de Phone Number [address] [address] * POCT glucose (05/07/2024 12:09 AM COMMUNITY RELATIONS ADVISOR) Glucose, POC 113 70 - 199 mg/dL Comment:Testing performed by : [address] [address] Blood 05/07/2024 12:0 9 AM COMMUNITY RELATIONS ADVISOR 05/07/2024 12:09 AM COMMUNITY RELATIONS ADVISOR us Tom Polanco MD LAB POCT ORDERABLES - DEVICE Final Result Performing Organization Address [facility] Co de Phone Number [address] [address] * (ABNORMAL) Hemoglobin A1c (03/31/2024 3:12 PM COMMUNITY RELATIONS ADVISOR) Hgb A1C 5.9(H) 4.0 - 5.6 % Comment:Testing performed by : [address] [address] Estimated Average Glucose 123 mg/dL KISHA Comment: The ADA recommends reporting an estimated Average Glucose (eAG) with all Hemoglobin A1c results using the equation derived from a study of 507 normal and diabetic adults. Minority populations were underrepresented and children were not included. (Diabetes Care 31:5372-6293, 2008). The eAG is not equivalent to a fasting glucose. Testing performed by: [facility], [address] [place] [address]., [address] Blood 03/31/2024 3:12 PM COMMUNITY RELATIONS ADVISOR 03/31/2024 3:22 PM COMMUNITY RELATIONS ADVISOR Narrative KISHA - 03/31/2024 5:28 PM COMMUNITY RELATIONS ADVISOR PRE SURGICAL TESTING ONLY--04/07/2024--Surgeons and Role: * Aram Oro MD - Primary-@ANPROCEDURE@ Eleazar Ibrahim MD LAB BLOOD ORDERABL ES Final Result [facility] [address] [facility] [place] [address] * POCT lipid panel (08/19/2021 5:01 PM [...] or Most Recently Relevant to Health Maintenance Additional Health Concerns Infection Onset Date Last Indicated COVID: Recovered Comment:Added based on recent COVID infection. 06/19/[address] [place] [address] MEDICARE [facility] Member Subscriber Plan / Payer ( fective 2008-) Name:RULA GOLDSTEIN Member ID:[id number] Relation to Subscriber:Self Name:Rula Goldstein Subscriber ID:[id number] Payer ID:[id number] Group ID:Not on file Type:MEDICARE TRADITIONAL Address: [address] [place] [id number] [facility] Member Subscriber Plan / Payer ( fective 2008-) Name:Rula Goldstein Member ID:[id number] Relation to Subscriber:Self Name:Rula Goldstein Subscriber ID:[id number] Payer ID:[id number] Group ID:Not on file Type:MEDICARE TRADITIONAL Address: [address] MEDICARE [facility] Advance Directives For more information, please contact: [phone] * Full Code (Latest Code Status on File) Date Activated Date Inactivated Comments 06/05/2024 7:54 AM 06/09/2024 5:12 PM * Full Code Date Activated Date Inactivated Comments 05/04/2024 10:26 PM 05/07/2024 3:47 PM Care Teams Sous Chef Kitchen Manager Relationship Specialty Start Date End Date David Pruitt MD [address] [facility] [address] [facility] [address] [place] [address] PCP - General Family Medicine 06/30/17 Aram Oro MD [address] [place] [address] [address] [place], [place] [id number] Consulting Physician Surgery 02/29/24 David Fried MD [facility] [address] [place], [place] [address] Radiation Oncologist Radiation Oncology 02/29/24 Chema Foreman MD [address] [facility] [address], [place] [address] Consulting Physician Interventional Cardiology 03/17/24
--- OUTSIDE RECORDS SUMMARY | 2024-08-07 14:56 | XMS_ITS | Clinical Summary ---
Author Organization [facility] Address [address] [place] [address] Care Team Providers Care Pottery Striper Name Role Phone Unavailable Primary Care Provider Unavailabl e Source Comments [facility],non-owned Affiliates and Associated Physician Practices is amultiple site organization consisting of ambulatory clinics and hospital sitesin [place], [place], [place] and [place]. This disclosure is being madepursuant to the Care Everywhere program and may not contain all information available regarding this patient. 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 Gender Identity Not on file Sexual Orientation [...] VACCINE ( - 2023-2 5 season) 2023 DEPRESSION SCREENING 03/01/2024 INFLUENZA VACCINE (Season Ended) 2024 HEPATITIS B VACCINE Aged Out No longe r eligible based on patient's age to complete this topic HIB VACCINE Aged Out No longer eligi ble based on patient's age to complete this topic HPV VACCINE Aged Out No longer eligi ble based on patient's age to complete this topic MENINGOCOCCAL (Group B) VACC INE SHARED DECISION-MAKING Aged Out No longer eligibl e based on patient's age to complete this topic MENINGOCOCCAL GROUPS A/C/Y/W VACCINE Aged Out No longer eligible b ased on patient's age to complete this topic Insurance MEDICARE [facility] SELF PAY NO INSURANCE Member Subscriber Plan / Payer (Ef fective for All Dates) Name:Rula Goldstein Member ID:Not on file Relation to Subscriber:Not on file Name:RULA GOLDSTEIN Subscriber ID:Not on file (Home) Address: [address] [place] [address] Payer ID:Not on file Group ID:Not on file Type:Self Pay Address: [place], [place]
--- OUTSIDE RECORDS SUMMARY | 2024-08-07 14:56 | XMS_ITS | Encounter Summary ---
Author Organization [facility] Healthcare Address [address] [place] [address] Care Team Providers Care Event Management Consultant Name Role Phone David Pruitt MD Primary Care Provider Aram Oro MD Unavailable [phone] David Fried MD Unavailable [phone] Chema Foreman MD Unavailable [phone] Encounter Details Date Type Department Care Team (Late st Contact Info) Description 08/04/[address] [facility] Medical Office Building 2 Radiation Oncology [address] [place] [address] [phone] David Fried MD [address] [place] [address] [phone] Social History Tobacco Use Types Packs/Day Years Used Date Smoking Tobacco: Former Smokeless Tobacco: Never Comments:Quit 1996 Alcohol Use Standard Drinks/Week Comments No 0 (1 standard drink = 0.6 oz pur e alcohol) [facility] Utilities Answer Date Recorded In the past 12 months has [employer] electric, gas, oil, or water company threatened [...] often do you attend chur ch or yazdanism services? Never 06/05/2024 Do you belong to any clubs o r organizations such as pentecostal groups, unions, fraternal or athletic groups, or [...] any time in the past 12 m [facility], were you homeless or living in a care home (including now)? No 06/05/2024 Personal Safety Answer Date Recorded Have you ever been in or are you currently in a harmful physical or emotional relationship or is someone making you feel afraid or unsafe? 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 06/19/2024 07/04/2024 documented as of this encounter Care Teams Event Management Consultant Relationship Specialty Start Date End Date David Pruitt MD [address] [place] [address] PCP - General Family Medicine 06/30/17 Aram Oro MD [address] [place] [address] [id number] Consulting Physician Surgery 02/29/24 David Fried MD [address] [place] [address] [address] [place] [address] Radiation Oncologist Radiation Oncology 02/29/24 Chema Foreman MD [address] [place] [address] [place] [address] [place] [address] Consulting Physician Interventional Cardiology 03/17/24 documented as of this encounter
--- OUTSIDE RECORDS SUMMARY | 2024-08-07 14:56 | XMS_ITS | Clinical Summary ---
Author Organization [facility] Address [address] [place] [address] Phone Care Team Providers Care Computer Scientist Name Role Phone David Pruitt MD Primary Care Provider [phone] Allergies Active Allergy Reactions Criticality Noted Date Comments Atorvastatin Muscle Pain Medium 01/01/2019 Myalgias on atorvastatin 20 mg Celecoxib Hives High 04/20/2024 Fish Oil Hives High 04/20/2024 Flecainide Other (See Comments) Low 01/21/2021 QT prolongation Iodinated Contrast Media Other (See Comments) Medium 06/30/2017 Dizzy, hot, nauseated, no hives or wheezing. Metformin Other (See Comments) 04/20/2024 Chest pain [place]-3 Fatty Acids Hives,Rash High 01/27/2018 Prednisone Other (See Comments) 06/12/2024 worsening hyperglycemia/hyperte nsion Shellfish Derived Hives High 04/20/2024 Shrimp Hives High 04/20/2024 Medications methotrexate (RHEUMATREX) 2.5 mg Tablet Take 2.5 mg by mouth every 7 days. Active leflunomide (ARAVA) 20 mg Tablet Take 20 mg by mouth daily. Active rivaroxaban (Xarelto) 20 mg Tablet Take 20 mg by mouth daily with supper. Active hydroCHLOROthia zide 25 mg tablet Take 25 mg by mouth daily. Active levothyroxine 88 mcg tablet Take 88 mcg by mouth daily in the morning. Active tirzepatide 7.5 mg/0.5 mL Pen Injector Inject 7.5 mg by subcutaneous injection every 7 days. Active insulin glargine U-300 conc (Toujeo Max U-300 SoloStar) 300 unit/mL (3 mL) Insulin Pen Inject 40 Units by subcutaneous injection daily. Daily at 1100 Active clopidogreL (PLAVIX) 75 mg Tablet Starting 04/23, Take 1 Tablet (75 mg) by mouth daily. 30 Tablet 04/22/2024 1:32 PM SEATING AND MOBILITY TECHNOLOGIST 5 Active albuterol sulfate HFA 90 mcg/actuation aerosol inhaler Take 2 Puffs by inhalation every 6 hours as needed. Active rosuvastatin (CRESTOR) 10 mg tablet Take 1 Tablet by mouth daily. 4 Active montelukast (SINGULAIR) 10 mg tablet Take 10 mg by mouth daily. Active omeprazole (PriLOSEC) 40 mg Capsule, Delayed Release(E.C.) Take 40 mg by mouth daily. 4 Active traMADoL (ULTRAM) 50 mg tablet Take 50 mg by mouth. 5 Active doxycycline hyclate (VIBRAMYCIN) 100 mg capsule Take 1 Capsule by mouth 2 times daily. 5 Active ondansetron (ZOFRAN ODT) 4 mg Tablet, Rapid Dissolve Take 4 mg by mouth every 6 hours as needed. 5 Active fluticasone propion-salmete roL (AIRDUO RESPICLICK) 113-14 mcg/actuation inhale 1 puff twice daily 4 Active DULoxetine (CYMBALTA) 60 mg Capsule, Delayed Release(E.C.) Take 60 mg by mouth daily. Active potassium CHLORIDE (KLOR-CON M10) 10 mEq Extended Release tablet Take 10 mEq by mouth 2 times daily. Active Active Problems Problem Noted Date Diagnosed Date TIA (transient ischemic attack) 04/21/2024 Stroke-like symptoms 04/20/2024 Paroxysmal atrial fibrillation 04/20/2024 COPD with asthma 04/20/2024 Acquired hypothyroidism 04/20/2024 SERA (obstructive sleep apnea) 04/20/2024 Overview (04/20/2024): Intolerant to cpap Rheumatoid arthritis involvi ng multiple sites with positive rheumatoid factor 04/20/2024 Acute metabolic encephalopathy 04/20/2024 Fever 04/20/2024 H/O malignant neoplasm of breast 04/20/2024 Type 2 diabetes mellitus wit hout complication, with long-term current use of insulin 04/20/2024 Depression with anxiety 04/20/2024 Benign hypertension 04/20/2024 Encounters Date Type Department Care Team Description 07/11/2024 External Device Data STL ABSTRACTION Provider, Abstract 06/27/2024 External Device Data STL ABSTRACTION Provider, Abstract 06/14/2024 Abstract [facility] [address] [place] [address] [address] Elodia Quinn MD 06/13/2024 2:45 PM CDT Office Visit [facility] [address] [place] [address] [address] Elodia Quinn MD Bilateral carotid artery stenosis (Primary Dx) 06/13/2024 1:00 PM CDT - 06/13/2024 11:59 PM CDT Hospital Encounter [facility] [address] [place] [address] Elodia Quinn MD Discharge Disposition: Home or Self Care 06/13/2024 External Device Data STL ABSTRACTION Provider, Abstract 05/23/2024 External Device Data STL ABSTRACTION Provider, Abstract 05/23/2024 External Device Data STL ABSTRACTION Provider, Abstract 05/23/2024 External Device Data STL ABSTRACTION Provider, Abstract 05/17/2024 Abstract [facility] [address] [place] [address] [address] Elodia Quinn MD 05/16/2024 3:00 PM CDT Initial consult [facility] [address] [facility] [address] [address] Elodia Quinn MD Bilateral carotid artery stenosis (Primary Dx) 05/16/2024 2:36 PM CDT - 05/16/2024 11:59 PM CDT Hospital Encounter [facility] [place] [facility] [address] [place] [address] Elodia Quinn MD Discharge Disposition: Home or Self Care from Last 3 Months Family History Medical History Relation Name Comments Diabetes Father Lena Turcios Hypertension Father Lena Turcios Stroke Father Lena Turcios Diabetes Mother Yasemin Turcios Hypertension Mother Yasemin Tam Lung Cancer Mother Yasemin Turcios Diabetes Other family hx Lung Cancer Other family hx Relation Name Status Comments Father Lena Turcios Mother Yasemin Turcios Other family hx Social History Tobacco Use Types Packs/Day Years Used Date Smoking Tobacco: Former Cigarettes 0.3 15 Q uit: 1998 Smokeless Tobacco: Never Tobacco Cessation:Counseling Given: Not Answered Alcohol Use Standard Drinks/Week Comments Not Currently 0 (1 standard drink = 0.6 oz pur e alcohol) former Comments Unknown Sex and Gender Information Value Date Recorded Sex Assigned at Not on file Legal Sex Female 3:10 PM SEATING AND MOBILITY TECHNOLOGIST Gender Identity Not on file Sexual Orientation Not on file Last Filed Vital Signs Vital Sign Reading Time Taken Comments Blood Pressure 144/85 06/13/2024 2:33 PM CDT Pulse 98 06/13/2024 2:33 PM CDT Temperature 37.1 C (98.7 F) 06/13/2024 2:33 PM CDT Respiratory Rate 18 04/22/2024 12:42 PM SEATING AND MOBILITY TECHNOLOGIST Oxygen Saturation 99% 06/13/2024 2:33 PM CDT Inhaled Oxygen Concentration - - Weight 56.2 kg (124 lb) 06/13/2024 2:33 PM CDT Height 154.9 cm (5' 1) 06/13/2024 2:33 PM CDT Body Mass Index 23.43 06/13/2024 2:33 PM CDT Plan of Treatment Upcoming Encounters Date Type Department Care Team (Late st Contact Info) Description 01/02/2025 10:15 AM SEATING AND MOBILITY TECHNOLOGIST Appointment [facility] [address] [place] [address] [place] [address] [place] [address] 01/02/2025 11:15 AM SEATING AND MOBILITY TECHNOLOGIST Office Visit [facility] [address] [place] [address] [place] [address] [place] [address] Health Maintenance Due Date Last Done Comments DIABETES ANNUAL FOOT EXAM 09/30/1961 DIABETES ANNUAL RETINAL EXAM 09/30/1961 DIABETES MICROALBUMIN ANNUAL SCREEN 09/30/1961 DTAP/TDAP/TD VACCINES (1 - Tdap) 09/30/1962 PNEUMOCOCCAL VACCINE 50+ YEA RS (1 of 2 - PCV) 09/30/1962 ZOSTER VACCINE (1 of 2) 09/30/1993 OSTEOPOROSIS SCREENING 09/30/2008 RSV VACCINE (60+ or ) (1 - 1-dose 75+ series) 09/30/2018 INFLUENZA VACCINE (#1) 2023 DIABETES HBA1C Q 6 MONTHS 10/18/2024 04/20/2024, LDL CHOLESTEROL ANNUAL 04/21/2025 04/21/2024 Procedures Procedure Name Priority Date/Time Associated Diagnosis Comments CTA HEAD AND NECK W AND/OR WO CONTRAST Routine 06/13/2024 1:49 PM CDT Bilateral carotid artery stenosis CT PRIOR STUDY Routine 05/16/2024 2:36 PM CDT Bilateral carotid artery stenosis LIPID PANEL Routine 04/21/2024 1:22 AM SEATING AND MOBILITY TECHNOLOGIST HEMOGLOBIN A1C Routine 04/20/2024 10:39 PM SEATING AND MOBILITY TECHNOLOGIST from Last 3 Months or Most Recently Relevant to Health Maintenance Results * CTA HEAD AND NECK W AND/OR WO CONTRAST (06/13/2024 1:49 PM CDT) Anatomical Region Laterality Modality Head Computed Tomogra phy 06/13/2024 1:30 PM CDT Impressions 06/13/2024 4:24 PM CDT IMPRESSION: Carotid bulb calcification bilaterally. 60-70% right carotid bulb stenosis. 40-50% left carotid bulb stenosis. Bilateral internal carotid artery and carotid siphon calcification with no high-grade stenosis identified. Chronic atrophy and white matter gliosis. The examination was performed with the adjustment of mA according to the patient size and/or the use of Iterative Reconstruction Technique. DICTATION LOCATION: [address] 06/13/2024 4:24 PM CDT CTA HEAD AND NECK WITH AND WITHOUT IV CONTRAST WITH RECONSTRUCTIONS DATE: 06/13/2024 1:49 PM HISTORY: Carotid artery stenosis Bilateral carotid artery stenosis COMPARISON: Outside study from April 20, 2024 TECHNIQUE: Precontrast CT of the head was first performed. Helical axial CT of the upper chest, neck and head was performed with multiplanar and 3D reconstructions during IV infusion of 80 ml of Isovue 370. Rapid LVO detection software was utilized. FINDINGS: Precontrast CT of the head shows brain atrophy and ventriculomegaly. White matter gliosis is present. There is intracranial atherosclerotic vascular calcification. Postcontrast images show centrilobular emphysema. The ascending aorta is not dilated. There is aortic arch and great vessel calcification. The subclavian arteries are patent. The common carotid arteries are patent. The vertebral arteries are patent. There is cervical spondylosis. The right vertebral artery is dominant. There is distal vertebral artery stenosis. The basilar artery is patent. The right carotid bulb is heavily calcified. Right external carotid artery is widely patent. The right carotid bulb stenosis is 60-70%. Right internal carotid artery stenosis is less than 50%. The right internal carotid artery is patent to the skull base. The left carotid bulb is heavily calcified. Left carotid bulb stenosis is about 40% to 50%. The left internal carotid artery stenosis is less than 50%. The left cervical carotid artery is patent to the skull base. Carotid siphon calcification is present. The anterior middle and posterior cerebral arteries are patent. The posterior communicating arteries are patent. The dural venous sinuses are patent. INCIDENTAL FINDINGS: None. Procedure Note Jos Rivera MD - 06/13/2024 CTA HEAD AND NECK WITH AND WITHOUT IV CONTRAST WITH RECONSTRUCTIONS DATE: 06/13/2024 1:49 PM HISTORY: Carotid artery stenosis Bilateral carotid artery stenosis COMPARISON: Outside study from April 20, 2024 TECHNIQUE: Precontrast CT of the head was first performed. Helical axial CT of the upper chest, neck and head was performed with multiplanar and 3D reconstructions during IV infusion of 80 ml of Isovue 370. Rapid LVO detection software was utilized. FINDINGS: Precontrast CT of the head shows brain atrophy and ventriculomegaly. White matter gliosis is present. There is intracranial atherosclerotic vascular calcification. Postcontrast images show centrilobular emphysema. The ascending aorta is not dilated. There is aortic arch and great vessel calcification. The subclavian arteries are patent. The common carotid arteries are patent. The vertebral arteries are patent. There is cervical spondylosis. The right vertebral artery is dominant. There is distal vertebral artery stenosis. The basilar artery is patent. The right carotid bulb is heavily calcified. Right external carotid artery is widely patent. The right carotid bulb stenosis is 60-70%. Right internal carotid artery stenosis is less than 50%. The right internal carotid artery is patent to the skull base. The left carotid bulb is heavily calcified. Left carotid bulb stenosis is about 40% to 50%. The left internal carotid artery stenosis is less than 50%. The left cervical carotid artery is patent to the skull base. Carotid siphon calcification is present. The anterior middle and posterior cerebral arteries are patent. The posterior communicating arteries are patent. The dural venous sinuses are patent. INCIDENTAL FINDINGS: None. IMPRESSION: Carotid bulb calcification bilaterally. 60-70% right carotid bulb stenosis. 40-50% left carotid bulb stenosis. Bilateral internal carotid artery and carotid siphon calcification with no high-grade stenosis identified. Chronic atrophy and white matter gliosis. The examination was performed with the adjustment of mA according to the patient size and/or the use of Iterative Reconstruction Technique. DICTATION LOCATION: Location [address] [place] [address] us Elodia Quinn MD CT ORDERABLES Final Resul t * CT PRIOR STUDY (05/16/2024 2:36 PM CDT) Narrative 05/16/2024 2:36 PM CDT This exam was auto finalized to allow images to be scanned to PACS. us Elodia Quinn MD CT ORDERABLES Final Resul t * (ABNORMAL) LIPID PANEL (04/21/2024 1:22 AM SEATING AND MOBILITY TECHNOLOGIST) [facility] Signature CHOLESTEROL 99 <200 mg/dL 04/21/2024 2:26 AM [facility] TRIGLYCERIDE 90 <150 mg/dL 04/21/2024 2:26 AM [facility] HDL 39(L) 40 - 59 mg/dL 04/21/2024 2:26 AM [facility] LDL CALCULATED 42 <100 mg/dL 04/21/2024 2:26 AM [facility] NON-HDL CHOLESTEROL 60 <130 mg/dL 04/21/2024 2:26 AM [facility] [employer] [facility] Blood Venipuncture / Unknown 04/21/2024 1:[address] [facility] 04/21/2024 1:49 AM [facility] - 04/21/2024 2:[address] [facility] TOTAL CHOLESTEROL mg/dL Desirable <200 Borderline high 200-239 High >=240 TRIGLYCERIDES mg/dL Normal <150 Borderline high 150-199 High 200-499 Very high >=500 HDL CHOLESTEROL mg/dL Low <40 Normal 40-59 Desirable >=60 NON HDL CHOLESTEROL mg/dL Optimal <130 Near Optimal 130-159 Borderline High 160-189 Very High >=190 CALCULATED LDL mg/dL LDL <70, OPTIMAL if have Atherosclerotic cardiovascular disease (ASCVD) or intermediate or higher (>7.5%) 10 year risk of ASCVD including most adults with diabetes. LDL <100, Optimal in adult patients with low (<7.5%) 10 year ASCVD risk LDL 100-160, Suboptimal LDL >160, High LDL >190, Very high ATPIII Guidelines Reference Ranges for Lipid Panels (NCEP/AMA) . us Keny Lanza MD CHEMISTRY ORDERABLES Final Resul t [facility]# [id number] [address] [employer] [facility] [employer] [address] [place] [id number] * (ABNORMAL) HEMOGLOBIN A1C (04/20/2024 10:39 PM SEATING AND MOBILITY TECHNOLOGIST) HEMOGLOBIN A1C 6.9(H) <5.7 % 04/20/2024 11:22 PM SEATING AND MOBILITY TECHNOLOGIST [facility] EST. AVG GLUCOSE, A1C 151 mg/dL 04/20/2024 11:22 PM [facility] Blood Venipuncture / Unknown 04/20/2024 10:39 PM SEATING AND MOBILITY TECHNOLOGIST 04/20/2024 10:49 PM SEATING AND MOBILITY TECHNOLOGIST Narrative [facility] - 04/20/2024 11:22 PM SEATING AND MOBILITY TECHNOLOGIST HGB A1C INTERPRETATION NORMAL: <5.7% PRE-DIABETES: 5.7 - 6.4% DIABETES: 6.5% OR GREATER us Keny Lanza MD CHEMISTRY ORDERABLES Final Resul t [facility] CLIA# [id number] [address] [place] [address] from Last 3 Months or Most Recently Relevant to Health [place] [address] MED[address] [facility] [id number] RX [employer] RX Member Subscriber Plan / Payer (Ef fective 2015-Present) Name:Rula Goldstein Relation to Subscriber:Self Name:Rula Goldstein Payer ID:Not on file Group ID:[id number] Type:RX Medicare Part D Address: [address] Advance Directives For more information, please contact: [phone] * Default Full Code - Needs Discussion (Latest Code Status on File) Date Activated Date Inactivated Comments 04/20/2024 10:20 PM 04/22/2024 3:48 PM Care Teams Computer Scientist Relationship Specialty Start Date End Date aDvid Pruitt MD [address] [facility] [address] [place] [address] PCP - General Family Practice 05/05/24
--- OUTSIDE RECORDS SUMMARY | 2024-08-07 14:56 | XMS_ITS | Clinical Summary ---
Author Organization [facility] Address [address] [place] [address] Care Team Providers Care Gun F[employer]ilizer Name Role Phone David Pruitt MD Primary Care Provider Aram Oro MD Unavailable [phone] David Fried MD Unavailable [phone] Chema Foreman MD Unavailable [phone] Allergies Active Allergy Reactions Criticality Noted Date Comments Atorvastatin Muscle pain Medium 01/01/2019 Myalgias on atorvastatin 20 mg Celecoxib Hives High 04/20/2024 Flecainide Other (See comments) Low 01/21/2021 QT prolongation House Dust Iodinated Contrast Media Other (See comments) Medium 06/30/2017 Dizzy, hot, nauseated, no hives or wheezing. Metformin Chest tightness,Other (See comments) Medium 06/30/2017 Chest pain [place]-3 Fatty Acids Rash,Hives High 01/27/2018 Prednisone Other [...] tabletIndications: Mixed hyperlipidemia,Cor onary artery disease involving north fork coronary artery of north fork heart without angina pectoris Take 1 tablet [...] Inhale 2 puffs daily 1 each 06/09/19 25 Active Additional Information Patient not taking.Reported on 07/19/2024 cyanocobalamin (Vitamin B-12) 2,000 mcg tabletIndications: B12 deficiency Take 1 tablet (2,000 mcg total) by mouth daily 90 tablet 3 06/10/19 25 026 Active levothyroxine (SYNTHROID) 88 mcg tablet Take 1 tablet (88 mcg total) by mouth daily 06/03/19 25 Active methotrexate 2.5 mg tablet TAKE 10 TABLETS BY MOUTH ONCE A WEEK, EVERY 7 DAYS. 04/27/19 25 Active Mounjaro 7.5 mg/0.5 mL pen injector injection INJECT 7.5MG SUBCUTANEOUSLY ONCE A WEEK, EVERY 7 DAYS 05/16/19 25 Active azelastine (ASTELIN) 137 mcg (0.1 %) nasal spray Administer 1 spray into each nostril 2 (two) times a day Use in each nostril as directed 30 mL 3 07/06/19 25 Active Active Problems Problem Noted Date Diagnosed Date Asthma-COPD overlap syndrome 07/31/2024 Nocturnal hypoxia 07/09/2024 Steroid-induced hyperglycemia 06/09/2024 Simple chronic bronchitis 06/06/2024 Urinary tract infection without hematuria 2024 COVID-19 virus infection 06/02/2024 Breast hematoma 05/04/2024 Malignant neoplasm of upper- outer quadrant of right breast in female, estrogen receptor positive 03/11/2024 Cancer Staging:Clinical stage from 03/11/2024:Stage IA(cT1c, cN0, cM0, G1, ER+, MA+, HER2: Equivocal) - Signed by David Fried MD on 03/11/2024 Pathologic stage from 07/19/2024: pT1c, cN0, cM0, G2, ER+, MA+, HER2- - Signed by David Fried MD [...] 01/27/2018 Assessment & Plan (01/27/2018 2:58 PM DESKTOP ADMINISTRATOR): Reviewed chart and discussed blood work with patient. She denies any GI sx and says EGD 2 yrs ago and [id number] this year. Discussed posssibility of gi blood loss and offered EGD/Colonoscopy. At this time she declines and promises to follow blood counts with PMD promising to call if changes her mind Coronary artery disease invo lving north fork coronary artery of north fork heart without angina pectoris 01/26/2018 Mixed hyperlipidemia [...] Date Type Department Care Team Description 08/04/2024 2:00 PM CDT Treatment [facility] Building 2 Radiation Oncology [address] [place] [address] David Fried MD 08/04/2024 Completion of Therapy [facility] Office Building 2 Radiation Oncology [address] [place] [address] David Fried MD 08/04/2024 Orders Only RAD ONC TREATMENTS Miscellaneous, Not In File 08/04/2024 OTV [facility] Office Building 2 Radiation Oncology [address] [place] [address] 264[address] David Fried MD 08/04/2024 Orders Only RAD ONC TREATMENTS Miscellaneous, Not In File 08/03/2024 2:00 PM CDT Treatment [facility] 2 Radiation Oncology [address] [place] [address] 08/03/2024 Orders Only RAD ONC TREATMENTS Miscellaneous, Not In File 08/02/2024 1:30 PM CDT Treatment [facility] Office [facility] 2 Radiation Oncology [address] [place] [address] 08/02/2024 Orders Only RAD ONC TREATMENTS Miscellaneous, Not In File 08/01/2024 1:30 PM CDT Treatment [facility] 2 Radiation Oncology [address] [place] [address] 08/01/2024 Orders Only RAD ONC TREATMENTS Miscellaneous, Not In File 07/31/2024 2:17 PM CDT - 07/31/2024 11:59 PM CDT Hospital Encounter [facility] Respiratory Therapy [address] [place] [phone] Colt Landis MD Asthma-COPD overlap syndrome (HCC) Discharge Disposition: Discharge to home or self care 07/31/2024 1:30 PM CDT Treatment [facility] 2 Radiation Oncology [address] [place] [address] David Fried MD 07/31/2024 1:15 PM CDT Treatment [facility] 2 Radiation Oncology [address] [place] [address] David Fried MD 07/31/2024 Orders Only RAD ONC TREATMENTS Miscellaneous, Not In File 07/28/2024 5:25 PM CDT Treatment [facility] 2 Radiation Oncology [address] [place] [address] 07/27/2024 7:25 PM CDT Treatment [facility] 2 Radiation Oncology [address] [place] [address] 07/19/2024 1:30 PM CDT Treatment [facility] 2 Radiation Oncology [address] [place] [address] David Fried MD 07/19/2024 1:00 PM CDT Office Visit [facility] 2 Radiation Oncology [address] [place] [address] David Fried MD Malignant neoplasm of upper-outer quadrant of right breast in female, estrogen receptor positive (HCC) (Primary Dx) 07/05/2024 2:45 PM CDT Office Visit [facility] Pulmonary [address] [place] [phone] Colt Landis MD Asthma-COPD overlap syndrome (HCC) (Primary Dx); Nocturnal hypoxia; Paroxysmal atrial fibrillation (HCC); Gastroesophageal reflux disease without esophagitis; Primary hypertension 06/12/2024 4:00 PM CDT Office Visit [facility] Oncology [address] [place] [address] [address] [place] [address] Lobo Driscoll DO Malignant neoplasm of upper-outer quadrant of right breast in female, estrogen receptor positive (HCC) (Primary Dx) 06/02/2024 7:31 PM CDT - 06/09/2024 1:11 PM CDT Hospital Encounter [place] [address] [address] [place] [address] Reynaldo Cuevas DO Sada, Kahmalia-Kalee Conceptia, MD [...] CDT - 05/30/2024 11:45 PM CDT Emergency [facility] Emergency Department [address] [place] [address] Forrest Mitchell Jr., MD Hematoma of right breast (Primary Dx); Anticoagulation adequate with anticoagulant therapy; History of atrial fibrillation; History of right breast cancer Discharge Disposition: Discharge to home or self care 05/18/2024 Telephone [facility] Cardiology [address] [place] [phone] Chema Foreman MD 05/04/2024 6:59 PM DESKTOP ADMINISTRATOR - 05/07/2024 11:45 AM CDT Hospital Encounter [place] [address] [address] [place] [phone] Katty Armenta MD Singh, Anjanya Devendra, MD Breast hematoma (Primary Dx); Right-sided chest pain Discharge Disposition: Discharge to home or self care from Last 3 Months Surgical History Surgery Date Site/Laterality Comments TONSILLECTOMY 1949 Tonsillectomy APPENDECTOMY 1950 Appendectomy CHOLECYSTECTOMY 1975 Cholecystectomy THYROIDECTOMY 1966 Thyroidectomy HYSTERECTOMY 1976 Hysterectomy MASTECTOMY 1992 Left Mastectomy CERVICAL DISCECTOMY 2005 Diskectomy, Cervical OTHER SURGICAL HISTORY Carpal tunnel surgery/2006 and 2007 BREAST BIOPSY 03/01/2023 - 02/29/2024 Right BREAST SURGERY removal of breast implant ULNAR TUNNEL RELEASE Bilateral CYST REMOVAL side of face BREAST LUMPECTOMY 04/07/2024 Right BREAST SURGERY 05/05/2024 Right blood clot removed Medical History Medical History Date Comments DM (diabetes mellitus) ([facility]) His tory of diabetes mellitus - (Added by TW Conv) Hypertension History of hyper tension - (Added by TW Conv) COPD (chronic obstructive pu lmonary disease) ([facility]) History of chronic obstructi ve lung disease [...] (Added by TW Conv) Rheumatoid arthritis ([facility]) 2020 S/P balloon dilatation of es ophageal stricture Mixed diabetic hyperlipidemi a associated with type 2 diabetes mellitus (CMS/HCC) ([facility]) 06/30/2017 Iron deficiency anemia 01/27/2018 Paroxysmal atrial flutter ([facility]) 01/21/2021 Malignant neoplasm of upper- outer quadrant of right breast in female, estrogen receptor positive ([facility]) 03/11/2024 Vitiligo Lung disease Allergic rhinitis GERD [...] drink = 0.6 oz pur e alcohol) [facility] Utilities Answer Date Recorded In the past 12 months has [email or web address] electric, gas, oil, or water company threatened [...] often do you attend chur ch or orthodox services? Never 06/05/2024 Do you belong to any clubs o r organizations such as mandaeism groups, unions, fraternal or athletic groups, or [...] any time in the past 12 m [facility], were you homeless or living in a chcf (including now)? No 06/05/2024 Personal Safety Answer Date Recorded Have you ever been in or are you currently in a harmful physical or emotional relationship or is someone making you feel afraid or unsafe? Denies 06/02/2024 Comments No Sex and Gender Information Value Date Recorded Sex Assigned at Not on file Legal Sex Female 12:20 AM DESKTOP ADMINISTRATOR Gender Identity Female 12/31/2023 2:40 PM CDT [...] 07/05/2024 2:50 PM CDT Plan of Treatment Health Maintenance Due Date Last Done Comments Albumin Creatinine Ratio, Urine 1945 Osteoporosis Screening-Bone Density Scan 1945 Dilated Eye Exam 1943 Foot Exam 1945 DTaP/Tdap/Td Vaccine (1 - Tdap) 09/30/1954 Hepatitis B Screening 09/30/1961 Pneumococcal vaccine 65+ (1 of 2 - PCV) 09/30/1962 Well Visit 65+ 09/30/2008 Covid-19 Vaccine (2 - Jansse n risk series) 05/31/2020 05/03/2020 Hemoglobin A1C 10/18/2024 04/20/2024, 03/31/2024 Influenza Vaccine (Season Ended) 2024 01/09/2020, 04/01/2019, 02/01/2019, Additional history exists Lipid Panel 04/21/2025 04/21/2024, 0603/2021, 03/27/2019, Additional history exists Depression Screening 06/02/2025 06/02/2024, 06/03/19 25 Fall Risk Assessment 06/09/2025 06/09/2024 eGFR 06/09/2025 06/09/2024, 05/30, 06/08/2024, Additional history exists Zoster Vaccine Completed 03/09/2019, 12/13/2018 Medical Devices Implanted Type Area Military Lawyer Device Identifier Shelf Expiration Date Model / Serial / Lot [employer] [place] 20ga 5cm Reposition J Curve Wire [employer] Andrew Stabilizer [id number] - [id number] Implanted:Qty: 1 on 04/07/2024 by Eleazar Gavin MD at [facility] Right: Breast [employer] [id number] 01/12/2029 [id number] / / [id number] Procedures Procedure Name Priority Date/Time Associated Diagnosis [...] GLUCOSE DEVICE Routine 05/07/2024 1 2:09 AM DESKTOP ADMINISTRATOR HEMOGLOBIN A1C Routine 03/31/2024 3:12 PM DESKTOP ADMINISTRATOR Pre-op testing Diabetes mellitus due to underlying condition with complication (HCC) POCT LIPID PANEL Routine 08/19/2021 5:01 PM CDT Mixed diabetic hyperlipidemia associated with type 2 diabetes mellitus (HCC) from Last 3 Months or Most Recently Relevant to Health Maintenance Results * RAD ONC ARIA COURSE SUMMARY (08/04/2024 4:18 PM CDT) Pathologist [facility] Course Name [id number] ARIA Course Plan [...] ORD ERABLES Final Result Performing Organization Address City/[facility]/ZIP Co de Phone Number ALANNA * RAD [...] ORD ERABLES Final Result Performing Organization Address [facility] Co de Phone Number ARIA * RAD ONC ARIA SESSION SUMMARY (08/02/2024 [...] ORD ERABLES Final Result Performing Organization Address [facility] de Phone Number ARIA * RAD ONC ARIA SESSION SUMMARY [...] ORD ERABLES Final Result Performing Organization Address City/State/[facility] Co de Phone Number ARIA * (ABNORMAL) Pulmonary Function Test - (07/31/2024 3:01 PM CDT) FVC POST 2.30 1.52 - 2.87 L [facility] FEV1 POST 1.31 1.16 - 2.15 L [facility] [id number] 56.88(A) 62.59 - 90.37 % [facility] SKF40-93% POST 0.75 0.58 - 2.64 L/s [facility] PEF POST 2.74(A) 3.39 - 6.35 L/s [facility] DLCOc SB 9.13(A) 11.60 - 23.07 ml/(min*mm Hg) [facility] DLCO/VA PRE 3.29 2.42 - 5.70 ml/(min*mm Hg*L) [facility] VA 2.78(A) 4.12 - 4.12 L [facility] TLC PRE 4.75 3.28 - 5.26 L [facility] VC PRE 2.11 1.21 - 2.59 L [facility] IC PRE 1.48(A) 1.45 - 1.45 L [facility] FRC PL PRE 3.27 1.67 - 3.32 L [facility] ERV PRE 0.63(A) 0.46 - 0.46 L [facility] RV PRE 2.64(A) 1.46 - 2.61 L [facility] VTG 3.29 L [facility] RAW PRE 5.76(A) 3.06 - 3.06 cmH2O*s/L [facility] FVC PRE 1.84 1.52 - 2.87 L [facility] FEV1 PRE 1.12(A) 1.16 - 2.15 L [facility] [id number] 60.63(A) 62.59 - 90.37 % [facility] LPK23-69% PRE 0.66 0.58 - 2.64 L/s [facility] PEF PRE 2.16(A) 3.39 - 6.35 L/s [facility] Anatomical Region Laterality Modality PFT 07/31/2024 2:18 [...] ARIA SESSION SUMMARY (07/31/2024 1:41 PM CDT) [facility] Course Name [id number] ARIA Course Plan [...] * POCT glucose (06/09/2024 8:36 AM CDT) [facility] Glucose, POC 108 70 - 199 mg/dL Comment:Testing performed by : [facility], [address] [place] [address]., [address] Blood 06/09/2024 8:36 AM CDT 06/09/2024 8:36 AM CDT us Shaw Mitchell MD LAB POCT ORDERABLES - DEVICE Final Result KISHA [address] [facility] Department [place] [address] * eGFR (06/09/2024 5:56 AM CDT) [facility] eGFR >90 >=60 mL/min/1. 73 m2 [...] was last reviewed 2020. Testing performed by: [address] [address] Blood 06/09/2024 5:56 AM CDT 06/09/2024 6:12 AM CDT us Colt Landis MD LAB BLOOD ORDERABLES F inal Result KISHA [address] [facility] Department [place] [address] * (ABNORMAL) Comprehensive metabolic panel (06/09/2024 5:56 AM CDT) Sodium 139 135 - 145 mmol/L Comment:Testing performed by : [address] [address] Potassium, pl 3.9 3.3 - 4.9 mmol/L [facility] [place] Comment:Testing performed by : [address] [address] Chloride 104 97 - 110 mmol/L [facility] [place] Comment:Testing performed by : [address] [address] CO2 28 22 - 32 mmol/L [facility] [place] Comment:Testing performed by : [address] [address] Anion gap 7 2 - 15 mmol/L [facility] Comment:Testing performed by : [address] [address] BUN 19 6 - 25 mg/dL [facility] Comment:Testing performed by : [address] [address] Creatinine 0.40(L) 0.60 - 1.10 mg/dL [facility] Comment:Testing performed by : [address] [address] Glucose 93 70 - 199 mg/dL [facility] Comment: Delta - Results Reviewed Interpretive [...] was last revised 2022. Testing performed by: [address] [address] Calcium 7.9(L) 8.5 - 10.3 mg/dL [facility] Comment:Testing performed by : [address] [address] Bilirubin, total 0.3 0.1 - 1.2 mg/dL [facility] Comment:Testing performed by : [address] [address] Protein, pl 5.3(L) 6.5 - 8.5 g/dL [facility] Comment:Testing performed by : [address] [address] Albumin 3.0(L) 3.5 - 5.0 g/dL [facility] Comment:Testing performed by : [address] [address] Alk phos 78 40 - 130 Units/L [facility] Comment:Testing performed by : [address] [address] ALT 14 7 - 45 Units/L KISHA Comment:Testing performed by : [address] [address] AST 12 10 - 45 Units/L KISHA Comment:Testing performed by : [address] [address] Blood 06/09/2024 5:56 AM CDT 06/09/2024 6:12 AM CDT Colt Landis MD LAB BLOOD ORDERABLES F inal Result Performing Organization Address [facility] Co de Phone Number [address] [place] [address] * POCT glucose (06/08/2024 8:25 PM CDT) [facility] Glucose, POC 185 70 - 199 mg/dL Comment:Testing performed by : [address] [address] Blood 06/08/2024 8:25 PM CDT 06/08/2024 8:25 PM CDT us Shaw Mitchell MD LAB POCT ORDERABLES - DEVICE Final Result Performing Organization Address [facility] Co de Phone Number [address] [address] * eGFR (06/08/2024 5:51 PM CDT) [facility] eGFR >90 >=60 mL/min/1. 73 m2 [...] was last reviewed 2020. Testing performed by: [address] [address] Blood 06/08/2024 5:51 PM CDT 06/08/2024 5:58 PM CDT us Shaw Mitchell MD LAB BLOOD ORDERABLES Final R esult K[facility] Department [place] [address] * (ABNORMAL) Basic metabolic panel (06/08/2024 5:51 PM CDT) Sodium 136 135 - 145 mmol/L Comment:Testing performed by : [address] [address] Potassium, pl 4.1 3.3 - 4.9 mmol/L KISHA Comment: Delta - Results Reviewed Testing performed by: [address] [address] Chloride 101 97 - 110 mmol/L KISHA Comment:Testing performed by : [address] [address] CO2 26 22 - 32 mmol/L KISHA Comment:Testing performed by : [address] [address] Anion gap 9 2 - 15 mmol/L KISHA Comment:Testing performed by : [address] [address] BUN 23 6 - 25 mg/dL KISHA Comment:Testing performed by : [address] [address] Creatinine 0.53(L) 0.60 - 1.10 mg/dL KISHA Comment:Testing performed by : [address] [address] Glucose 247(H) 70 - 199 mg/dL KISHA [...] was last revised 2022. Testing performed by: [address] [address] Calcium 8.5 8.5 - 10.3 mg/dL KISHA Comment:Testing performed by : [address] [address] Blood 06/08/2024 5:51 PM CDT 06/08/2024 5:58 PM CDT us Shaw Mitchell MD LAB BLOOD ORDERABLES Final R esult Performing Organization Address [facility] Co de Phone Number [address] [place] [address] * (ABNORMAL) POCT glucose (06/08/2024 5:09 PM CDT) [facility] Glucose, POC 233(H) 70 - 199 mg/dL Comment:Testing performed by : [address] [address] Blood 06/08/2024 5:09 PM CDT 06/08/2024 5:09 PM CDT Shaw Mitchell MD LAB POCT ORDERABLES - DEVICE Final Result Performing Organization Address City/[facility]/ZIP Co de Phone Number [id number] [place] [address] * (ABNORMAL) POCT glucose (06/08/2024 12:12 PM CDT) [facility] Glucose, POC 305(H) 70 - 199 mg/dL Comment:Testing performed by : [address] [address] Blood 06/08/2024 12:1 2 PM CDT 06/08/2024 12:12 PM CDT Shaw Mitchell MD LAB POCT ORDERABLES - DEVICE Final Result Performing Organization Address [facility] de Phone Number KISHA [address] [place] [address] * eGFR (06/08/2024 10:29 AM CDT) [facility] eGFR >90 >=60 mL/min/1. 73 m2 [...] was last reviewed 2020. Testing performed by: [facility], [address] [place] [address]., [address] Blood 06/08/2024 10:2 9 AM CDT 06/08/2024 10:33 AM CDT Shaw Mitchell MD LAB BLOOD ORDERABLES Final R esult Performing Organization Address City/[facility]/ZIP Co de Phone Number KISHA [address] Department [place] [address] * (ABNORMAL) Differential, auto (06/08/2024 10:29 AM CDT) Neutrophil abs 8.02(H) 1.50 - 6.50 K/cumm Comment:Testing performed by : [address] [address] Imm gran abs 0.08 0.00 - 0.10 K/cumm KISHA Comment:Testing performed by : [address], [place]., [address] Lymphocyte abs 2.42 0.80 - 3.30 K/cumm KISHA Comment:Testing performed by : [address] [address] Monocyte abs 1.68(H) 0.20 - 0.80 K/cumm KISHA Comment:Testing performed by : [address] [address] Eosinophil abs 0.00 0.00 - 0.50 K/cumm KISHA Comment:Testing performed by : [address] [address] Basophil abs 0.01 0.00 - 0.10 K/cumm BANNERELVIN Comment:Testing performed by : [address] [address] Neutrophil pct 65.6 % CERELVIN Comment: Interpretive Data Percent cell count reference ranges are not reported, since discordance with absolute values may lead to misinterpretation of CBC data. Current Interpretive Data was last revised on 2017. Testing performed by: [address] [address] Imm gran pct 0.7 % CERELVIN Comment: Interpretive Data Percent cell count reference ranges are not reported, since discordance with absolute values may lead to misinterpretation of CBC data. Current Interpretive Data was last revised on 2017. Testing performed by: [address] [address] Lymphocyte pct 19.8 % CERELVIN Comment: Interpretive Data Percent cell count reference ranges are not reported, since discordance with absolute values may lead to misinterpretation of CBC data. Current Interpretive Data was last revised on 2017. Testing performed by: [address] [address] Monocyte pct 13.8 % KISHA Comment: Interpretive Data Percent cell count reference ranges are not reported, since discordance with absolute values may lead to misinterpretation of CBC data. Current Interpretive Data was last revised on 2017. Testing performed by: [address] [address] Eosinophil pct 0.0 % KISHA Comment: Interpretive Data Percent cell count reference ranges are not reported, since discordance with absolute values may lead to misinterpretation of CBC data. Current Interpretive Data was last revised on 2017. Testing performed by: [address] [address] Basophil pct 0.1 % KISHA Comment: Interpretive Data Percent cell count reference ranges are not reported, since discordance with absolute values may lead to misinterpretation of CBC data. Current Interpretive Data was last revised on 2017. Testing performed by: [address] [address] Blood 06/08/2024 10:2 9 AM CDT 06/08/2024 10:33 AM CDT us Shaw Mitchell MD LAB BLOOD ORDERABLES Final R esult [facility] [address] [facility] Department [place] [address] * (ABNORMAL) CBC with auto differential (06/08/2024 10:29 AM CDT) WBC 12.21(H) 3.80 - 9.90 K/cumm Comment:Testing performed by : [address] [address] Hgb 9.2(L) 11.9 - 15.5 g/dL KISHA Comment:Testing performed by : [address] [address] Hct 28.7(L) 35.6 - 45.5 % KISHA Comment:Testing performed by : [address], [address] Plt 349 150 - 400 K/cumm KISHA Comment:Testing performed by : [address] [address] MPV 9.5 9.1 - 12.3 fL KISHA Comment:Testing performed by : [address], [address] RBC 3.27(L) 3.90 - 5.20 M/cumm KISHA Comment:Testing performed by : [address], [address] MCV 87.8 81.3 - 96.4 fL KISHA Comment:Testing performed by : [address] [address] MCH 28.1 27.1 - 33.3 pg KIHSA Comment:Testing performed by : [address], [address] MCHC 32.1(L) 32.3 - 35.7 g/dL IKSHA Comment:Testing performed by : [address], [address] RDW CV 16.4(H) 11.1 - 14.9 % KISHA Comment:Testing performed by : [address], [address] RDW SD 51.7(H) 35.7 - 48.1 fL KISHA Comment:Testing performed by : [address], [address] NRBC abs 0.00 0.00 - 0.01 K/cumm KISHA Comment:Testing performed by : [address], [address] Blood 06/08/2024 10:2 9 AM CDT 06/08/2024 10:33 AM CDT us Shaw Mitchell MD LAB BLOOD ORDERABLES Final R esult KISHA TOWNSEND [address] [place] [address] * Magnesium (06/08/2024 10:29 AM CDT) Pathologist [facility] Magnesium 2.3 1.4 - 2.5 mg/dL Comment:Testing performed by : [address] [address] Blood 06/08/2024 10:2 9 AM CDT 06/08/2024 10:33 AM CDT us Shaw Mitchell MD LAB BLOOD ORDERABLES Final R esult KISHA [address] [facility] [place] [address] * (ABNORMAL) Comprehensive metabolic panel (06/08/2024 10:29 AM CDT) [facility] Sodium 137 135 - 145 mmol/L Comment:Testing performed by : [address] [address] Potassium, pl 3.0(L) 3.3 - 4.9 mmol/L KISHA Comment:Testing performed by : [address] [address] Chloride 100 97 - 110 mmol/L KISHA Comment:Testing performed by : [address] [address] CO2 27 22 - 32 mmol/L KISHA Comment:Testing performed by : [address] [address] Anion gap 10 2 - 15 mmol/L KISHA Comment:Testing performed by : [address] [address] BUN 21 6 - 25 mg/dL KISHA Comment:Testing performed by : [address] [address] Creatinine 0.53(L) 0.60 - 1.10 mg/dL KISHA Comment:Testing performed by : [address] [address] Glucose 159 70 - 199 mg/dL KISHA Comment: Interpretive [...] was last revised 2022. Testing performed by: [address] [address] Calcium 8.4(L) 8.5 - 10.3 mg/dL KISHA Comment:Testing performed by : [address] [address] Bilirubin, total 0.2 0.1 - 1.2 mg/dL KISHA Comment:Testing performed by : [address] [address] Protein, pl 5.9(L) 6.5 - 8.5 g/dL KISHA Comment:Testing performed by : [address] [address] Albumin 3.5 3.5 - 5.0 g/dL KISHA Comment:Testing performed by : [address] [address] Alk phos 85 40 - 130 Units/L KISHA Comment:Testing performed by : [address] [address] ALT 19 7 - 45 Units/L KISHA Comment:Testing performed by : [address] [address] AST 21 10 - 45 Units/L KISHA Comment:Testing performed by : [address] [address] Blood 06/08/2024 10:2 9 AM CDT 06/08/2024 10:33 AM CDT Shaw Mitchell MD LAB BLOOD ORDERABLES Final R esult Performing Organization Address [facility] Co de Phone Number KISHA [address] [place] [address] * POCT glucose (06/08/2024 9:39 AM CDT) [facility] Glucose, POC 101 70 - 199 mg/dL Comment:Testing performed by : [address] [address] Blood 06/08/2024 9:39 AM CDT 06/08/2024 9:39 AM CDT Shaw Mitchell MD LAB POCT ORDERABLES - DEVICE Final Result Performing Organization Address [facility] Co de Phone Number DANNY[address] [place] [address] * POCT glucose (06/08/2024 8:17 AM CDT) [facility] Glucose, POC 72 70 - 199 mg/dL Comment:Testing performed by : [facility], [address] [place] [address]., [address] Blood 06/08/2024 8:17 AM CDT 06/08/2024 8:17 AM CDT us Shaw Mitchell MD LAB POCT ORDERABLES - DEVICE Final Result Performing Organization Address [facility] Co de Phone Number DANNY[address] [place] [address] * eGFR (06/08/2024 5:07 AM CDT) [facility] eGFR >90 >=60 mL/min/1. 73 m2 [...] was last reviewed 2020. Testing performed by: [address] [address] Blood 06/08/2024 5:07 AM CDT 06/08/2024 5:27 AM CDT Colt Landis MD LAB BLOOD ORDERABLES F inal Result [facility] Department [place] [address] * (ABNORMAL) Comprehensive metabolic panel (06/08/2024 5:07 AM CDT) Sodium 138 135 - 145 mmol/L Comment:Testing performed by : [address] [address] Potassium, pl 3.0(L) 3.3 - 4.9 mmol/L KISHA Comment:Testing performed by : [address] [address] Chloride 101 97 - 110 mmol/L KISHA Comment:Testing performed by : [address] [address] CO2 28 22 - 32 mmol/L KISHA Comment:Testing performed by : [address] [address] Anion gap 9 2 - 15 mmol/L KISHA Comment:Testing performed by : [address] [address] BUN 23 6 - 25 mg/dL KISHA Comment:Testing performed by : [address] [address] Creatinine 0.49(L) 0.60 - 1.10 mg/dL KISHA Comment:Testing performed by : [address] [address] Glucose 98 70 - 199 mg/dL KISHA [...] was last revised 2022. Testing performed by: [address] [address] Calcium 8.4(L) 8.5 - 10.3 mg/dL [facility] Comment:Testing performed by : [address] [address] Bilirubin, total 0.2 0.1 - 1.2 mg/dL [facility] Comment:Testing performed by : [address] [address] Protein, pl 5.8(L) 6.5 - 8.5 g/dL [facility] Comment:Testing performed by : [address] [address] Albumin 3.4(L) 3.5 - 5.0 g/dL [facility] Comment:Testing performed by : [address] [address] Alk phos 95 40 - 130 Units/L [facility] Comment:Testing performed by : [address] [address] ALT 19 7 - 45 Units/L KISHA Comment:Testing performed by : [address] [address] AST 20 10 - 45 Units/L KISHA Comment:Testing performed by : [address] [address] Blood 06/08/2024 5:07 AM CDT 06/08/2024 5:27 AM CDT us Colt Landis MD LAB BLOOD ORDERABLES F inal Result Performing Organization Address City/[facility]/ZIP Co de Phone Number [address] [place] [address] * (ABNORMAL) POCT glucose (06/08/2024 12:56 AM CDT) Glucose, POC 217(H) 70 - 199 mg/dL Comment:Testing performed by : [address] [address] Blood 06/08/2024 12:5 6 AM CDT 06/08/2024 12:56 AM CDT us Shaw Mitchell MD LAB POCT ORDERABLES - DEVICE Final Result Performing Organization Address [facility] Co de Phone Number [address] [place] [address] * POCT glucose (06/07/2024 10:05 PM CDT) Glucose, POC 170 70 - 199 mg/dL Comment:Testing performed by : [address] [address] Blood 06/07/2024 10:0 5 PM CDT 06/07/2024 10:05 PM CDT us Shaw Mitchell MD LAB POCT ORDERABLES - DEVICE Final Result Performing Organization Address [facility] Co de Phone Number [address] [address] * POCT glucose (06/07/2024 9:05 PM CDT) Glucose, POC 89 70 - 199 mg/dL Comment:Testing performed by : [address] [address] Glucose comment 1 RN/MD Notified KISHA Comment:Testing performed by : [address] [address] Blood 06/07/2024 9:05 PM CDT 06/07/2024 9:05 PM CDT Shaw Mitchell MD LAB POCT ORDERABLES - DEVICE Final Result Performing Organization Address [facility] Co de Phone Number DANNY[address] [address] * (ABNORMAL) POCT glucose (06/07/2024 8:29 PM CDT) Glucose, POC 65(L) 70 - 199 mg/dL Comment:Testing performed by : [address] [address] Glucose comment 1 RN/MD Notified KISHA Comment:Testing performed by : [address] [address] Blood 06/07/2024 8:29 PM CDT 06/07/2024 8:29 PM CDT Shaw Mitchell MD LAB POCT ORDERABLES - DEVICE Final Result Performing Organization Address [facility] de Phone Number [address] [address] * POCT glucose (06/07/2024 4:25 PM CDT) Glucose, POC 80 70 - 199 mg/dL Comment:Testing performed by : [address] [address] Glucose comment 1 RN/MD Notified KISHA Comment:Testing performed by : [address] [address] Blood 06/07/2024 4:25 PM CDT 06/07/2024 4:25 PM CDT Shaw Mitchell MD LAB POCT ORDERABLES - DEVICE Final Result Performing Organization Address City/[facility] Co de Phone Number KISHA [address] [facility] [place] [address] * (ABNORMAL) POCT glucose (06/07/2024 11:34 AM CDT) Glucose, POC 298(H) 70 - 199 mg/dL Comment:Testing performed by : [facility], [address] [place] [address], [place]., [address] Blood 06/07/2024 11:3 4 AM CDT 06/07/2024 11:34 AM CDT Shaw Mitchell MD LAB POCT ORDERABLES - DEVICE Final Result Performing Organization Address [facility] Co de Phone Number KISHA [address] [place] [address] * XR Chest 1 View (06/07/2024 8:50 [...] Amy Gomez M.D. FT: FT Report ID: [id number] Reading Location: [id number] Procedure Note Amy Wynne MD - 06/07/2024 [...] Amy Gomez M.D. FT: FT Report ID: [id number] Reading Location: [place] [address] us Colt Landis MD IMG XR PROCEDURES Radha l Result * (ABNORMAL) POCT glucose (06/07/2024 8:42 AM CDT) [facility] Glucose, POC 207(H) 70 - 199 mg/dL Comment:Testing performed by : [address] [address] Glucose comment 1 Will Repeat Test KISHA Comment:Testing performed by : [address] [address] Glucose comment 2 RN/MD Notified KISHA TOWNSEND Comment:Testing performed by : [address] [address] Blood 06/07/2024 8:42 AM CDT 06/07/2024 8:42 AM CDT us Shaw Mitchell MD LAB POCT ORDERABLES - DEVICE Final Result KISHA TOWNSEND [address] [facility] Department [place] [address] * eGFR (06/07/2024 5:38 AM CDT) eGFR [...] was last reviewed 2020. Testing performed by: [address] [address] Blood 06/07/2024 5:38 AM CDT 06/07/2024 6:02 AM CDT Colt Landis MD LAB BLOOD ORDERABLES F inal Result [facility] [address] [facility] Department [place] [address] * (ABNORMAL) Differential, auto (06/07/2024 5:38 AM CDT) Pathologist [facility] Neutrophil abs 8.06(H) 1.50 - 6.50 K/cumm Comment:Testing performed by : [address] [address] Imm gran abs 0.08 0.00 - 0.10 K/cumm KISHA TOWNSEND Comment:Testing performed by : [address] [address] Lymphocyte abs 1.18 0.80 - 3.30 K/cumm KISHA Comment:Testing performed by : [address] [address] Monocyte abs 1.19(H) 0.20 - 0.80 K/cumm KISHA Comment:Testing performed by : [address] [address] Eosinophil abs 0.00 0.00 - 0.50 K/cumm [facility] Comment:Testing performed by : [address], [place]., [address] Basophil abs 0.01 0.00 - 0.10 K/cumm [facility] Comment:Testing performed by : [address] [address] Neutrophil pct 76.6 % [facility] Comment: Interpretive Data Percent cell count reference ranges are not reported, since discordance with absolute values may lead to misinterpretation of CBC data. Current Interpretive Data was last revised on 2017. Testing performed by: [address] [address] Imm gran pct 0.8 % [facility] Comment: Interpretive Data Percent cell count reference ranges are not reported, since discordance with absolute values may lead to misinterpretation of CBC data. Current Interpretive Data was last revised on 2017. Testing performed by: [address] [address] Lymphocyte pct 11.2 % [facility] Comment: Interpretive Data Percent cell count reference ranges are not reported, since discordance with absolute values may lead to misinterpretation of CBC data. Current Interpretive Data was last revised on 2017. Testing performed by: [address] [address] Monocyte pct 11.3 % [facility] Comment: Interpretive Data Percent cell count reference ranges are not reported, since discordance with absolute values may lead to misinterpretation of CBC data. Current Interpretive Data was last revised on 2017. Testing performed by: [address] [address] Eosinophil pct 0.0 % [facility] Comment: Interpretive Data Percent cell count reference ranges are not reported, since discordance with absolute values may lead to misinterpretation of CBC data. Current Interpretive Data was last revised on 2017. Testing performed by: [facility], [address] [place] [address]., [address] Basophil pct 0.1 % KISHA TOWNSEND Comment: Interpretive Data Percent cell count reference ranges are not reported, since discordance with absolute values may lead to misinterpretation of CBC data. Current Interpretive Data was last revised on 2017. Testing performed by: [facility], [address] [place] [address]., [address] Blood 06/07/2024 5:38 AM CDT 06/07/2024 6:05 AM CDT us Colt Landis MD LAB BLOOD ORDERABLES F inal Result KISHA TOWNSEND [address] [facility] Department [place] [address] * Pro B-type natriuretic peptide (06/07/2024 5:38 [...] Last Revised Date: 2017. Testing performed by: [address] [address] Blood 06/07/2024 5:38 AM CDT 06/07/2024 6:02 AM CDT us Colt Landis MD LAB BLOOD ORDERABLES F inal Result KISHA [address] [facility] Department [place] [address] * (ABNORMAL) CBC with auto differential (06/07/2024 5:38 AM CDT) WBC 10.52(H) 3.80 - 9.90 K/cumm Comment:Testing performed by : [address] [address] Hgb 8.4(L) 11.9 - 15.5 g/dL KISHA TOWNSEND Comment:Testing performed by : [address] [address] Hct 26.4(L) 35.6 - 45.5 % KISHA TOWNSEND Comment:Testing performed by : [address] [address] Plt 351 150 - 400 K/cumm KISHA TOWNSEND Comment:Testing performed by : [address] [address] MPV 9.7 9.1 - 12.3 fL KISHA TOWNSEND Comment:Testing performed by : [address] [address] RBC 3.06(L) 3.90 - 5.20 M/cumm KISHA TOWNSEND Comment:Testing performed by : [address] [address] MCV 86.3 81.3 - 96.4 fL KISHA TOWNSEND Comment:Testing performed by : [address], [address] MCH 27.5 27.1 - 33.3 pg KISHA TOWNSEND Comment:Testing performed by : [address] [address] MCHC 31.8(L) 32.3 - 35.7 g/dL KISHA TOWNSEND Comment:Testing performed by : [address], [address] RDW CV 16.1(H) 11.1 - 14.9 % KISHA Comment:Testing performed by : [address], [address] RDW SD 49.4(H) 35.7 - 48.1 fL KISHA Comment:Testing performed by : [address] [address] NRBC abs 0.00 0.00 - 0.01 K/cumm KISHA Comment:Testing performed by : [address], [address] Blood 06/07/2024 5:38 AM CDT 06/07/2024 6:05 AM CDT Colt Landis MD LAB BLOOD ORDERABLES F inal Result Performing Organization Address [facility] Co de Phone Number [place] [id number] [facility] Department [place] [address] * CRP (acute phase) (06/07/2024 5:38 AM CDT) CRP 3.4 <=10.0 mg/L Comment:Testing performed by : [address] [address] Blood 06/07/2024 5:38 AM CDT 06/07/2024 6:02 AM CDT Colt Landis MD LAB BLOOD ORDERABLES F inal Result KISHA [address] [facility] Department [place] [address] * (ABNORMAL) Comprehensive metabolic panel (06/07/2024 5:38 AM CDT) Sodium 138 135 - 145 mmol/L Comment:Testing performed by : [address] [address] Potassium, pl 3.4 3.3 - 4.9 mmol/L KISHA Comment:Testing performed by : [address] [address] Chloride 99 97 - 110 mmol/L KISHA Comment:Testing performed by : [address] [address] CO2 27 22 - 32 mmol/L KISHA Comment:Testing performed by : [address], [place]., [address] Anion gap 12 2 - 15 mmol/L KISHA Comment:Testing performed by : [address] [address] BUN 31(H) 6 - 25 mg/dL KISHA Comment:Testing performed by : [address] [address] Creatinine 0.60 0.60 - 1.10 mg/dL KISHA Comment:Testing performed by : [address] [address] Glucose 242(H) 70 - 199 mg/dL KISHA [...] was last revised 2022. Testing performed by: [address] [address] Calcium 8.1(L) 8.5 - 10.3 mg/dL KISHA Comment:Testing performed by : [address] [address] Bilirubin, total 0.2 0.1 - 1.2 mg/dL KISHA Comment:Testing performed by : [address], [place]., [address] Protein, pl 5.8(L) 6.5 - 8.5 g/dL KISHA Comment:Testing performed by : [address], [place]., [address] Albumin 3.3(L) 3.5 - 5.0 g/dL KISHA Comment:Testing performed by : [address] [address] Alk phos 110 40 - 130 Units/L KISHA Comment:Testing performed by : [address] [address] ALT 13 7 - 45 Units/L KISHA Comment:Testing performed by : [address] [address] AST 14 10 - 45 Units/L [facility] Comment:Testing performed by : [address] [address] Blood 06/07/2024 5:38 AM CDT 06/07/2024 6:02 AM CDT Colt Landis MD LAB BLOOD ORDERABLES F inal Result [facility] [address] [facility] Department [place] [address] * (ABNORMAL) POCT glucose (06/06/2024 8:17 PM CDT) [facility] Glucose, POC 338(H) 70 - 199 mg/dL Comment:Testing performed by : [address] [address] Blood 06/06/2024 8:17 PM CDT 06/06/2024 8:17 PM CDT Shaw Mitchell MD LAB POCT ORDERABLES - DEVICE Final Result Performing Organization Address [facility] de Phone Number KISHA [address] [address] * (ABNORMAL) POCT glucose (06/06/2024 6:45 PM CDT) [facility] Glucose, POC 338(H) 70 - 199 mg/dL Comment:Testing performed by : [address] [address] Glucose comment 1 RN/MD Notified KISHA Comment:Testing performed by : [address] [address] Blood 06/06/2024 6:45 PM CDT 06/06/2024 6:45 PM CDT Shaw Mitchell MD LAB POCT ORDERABLES - DEVICE Final Result Performing Organization Address [facility] de Phone Number DANNY[address] [address] * (ABNORMAL) POCT glucose (06/06/2024 4:59 PM CDT) [facility] Glucose, POC 499(C) 70 - 199 mg/dL Comment:Testing performed by : [address] [address] Glucose comment 1 RN/MD Notified KISHA Comment:Testing performed by : [address] [address] Blood 06/06/2024 4:59 PM CDT 06/06/2024 4:59 PM CDT Shaw Mitchell MD LAB POCT ORDERABLES - DEVICE Final Result Performing Organization Address [facility] Co de Phone Number DANNY[address] [address] * (ABNORMAL) POCT glucose (06/06/2024 1:42 PM CDT) Glucose, POC 548(C) 70 - 199 mg/dL Comment:Testing performed by : [address] [address] Glucose comment 1 RN/MD Notified KISHA Comment:Testing performed by : [address] [address] Blood 06/06/2024 1:42 PM CDT 06/06/2024 1:42 PM CDT Shaw Mitchell MD LAB POCT ORDERABLES - DEVICE Final Result Performing Organization Address [facility] Co de Phone Number KISHA [address] [place] [address] * (ABNORMAL) POCT glucose (06/06/2024 11:38 AM CDT) Glucose, POC >600(C) 70 - 199 mg/dL Comment:Testing performed by : [address] [address] Glucose comment 1 RN/ Notified KISHA Comment:Testing performed by : [address] [address] Blood 06/06/2024 11:3 8 AM CDT 06/06/2024 11:38 AM CDT Shaw Mitchell MD LAB POCT ORDERABLES - DEVICE Final Result Performing Organization Address [facility] Co de Phone Number DANNY[address] [place] [address] * (ABNORMAL) POCT glucose (06/06/2024 10:51 AM CDT) Glucose, POC 527(C) 70 - 199 mg/dL Comment:Testing performed by : [address] [address] Glucose comment 1 RN/MD Notified KISHA Comment:Testing performed by : [address] [place]., [address] Glucose comment 2 Follow Protocol KISHA Comment:Testing performed by : [address] [address] Blood 06/06/2024 10:5 1 AM CDT 06/06/2024 10:51 AM CDT Shaw Mitchell MD LAB POCT ORDERABLES - DEVICE Final Result Performing Organization Address [facility] de Phone Number DANNY[address] [place] [address] * (ABNORMAL) POCT glucose (06/06/2024 10:50 AM CDT) [facility] Glucose, POC 548(C) 70 - 199 mg/dL Comment:Testing performed by : [address] [address] Glucose comment 1 Will Repeat Test KISHA Comment:Testing performed by : [address] [address] Blood 06/06/2024 10:5 0 AM CDT 06/06/2024 10:50 AM CDT us Shaw Mitchell MD LAB POCT ORDERABLES - DEVICE Final Result Performing Organization Address [facility] de Phone Number [address] [place] [address] * eGFR (06/06/2024 8:44 AM CDT) [facility] eGFR >90 >=60 mL/min/1. 73 m2 [...] was last reviewed 2020. Testing performed by: [address] [address] Blood 06/06/2024 8:44 AM CDT 06/06/2024 9:01 AM CDT us Shaw Mitchell MD LAB BLOOD ORDERABLES Final R esult KISHA [address] [place] [address] * (ABNORMAL) Differential, auto (06/06/2024 8:44 AM CDT) Neutrophil abs 13.54(H) 1.50 - 6.50 K/cumm Comment:Testing performed by : [address] [address] Imm gran abs 0.11(H) 0.00 - 0.10 K/cumm KISHA Comment:Testing performed by : [address] [address] Lymphocyte abs 0.67(L) 0.80 - 3.30 K/cumm KISHA Comment:Testing performed by : [address] [address] Monocyte abs 0.82(H) 0.20 - 0.80 K/cumm KISHA Comment:Testing performed by : [address] [address] Eosinophil abs 0.00 0.00 - 0.50 K/cumm KISHA Comment:Testing performed by : [address] [address] Basophil abs 0.01 0.00 - 0.10 K/cumm KISHA Comment:Testing performed by : [address] [address] Neutrophil pct 89.4 % KISHA Comment: Interpretive Data Percent cell count reference ranges are not reported, since discordance with absolute values may lead to misinterpretation of CBC data. Current Interpretive Data was last revised on 2017. Testing performed by: [address] [address] Imm gran pct 0.7 % KISHA Comment: Interpretive Data Percent cell count reference ranges are not reported, since discordance with absolute values may lead to misinterpretation of CBC data. Current Interpretive Data was last revised on 2017. Testing performed by: [address] [address] Lymphocyte pct 4.4 % [facility] Comment: Interpretive Data Percent cell count reference ranges are not reported, since discordance with absolute values may lead to misinterpretation of CBC data. Current Interpretive Data was last revised on 2017. Testing performed by: [address] [address] Monocyte pct 5.4 % [facility] Comment: Interpretive Data Percent cell count reference ranges are not reported, since discordance with absolute values may lead to misinterpretation of CBC data. Current Interpretive Data was last revised on 2017. Testing performed by: [address] [address] Eosinophil pct 0.0 % [facility] Comment: Interpretive Data Percent cell count reference ranges are not reported, since discordance with absolute values may lead to misinterpretation of CBC data. Current Interpretive Data was last revised on 2017. Testing performed by: [address] [address] Basophil pct 0.1 % [facility] Comment: Interpretive Data Percent cell count reference ranges are not reported, since discordance with absolute values may lead to misinterpretation of CBC data. Current Interpretive Data was last revised on 2017. Testing performed by: [address] [address] Blood 06/06/2024 8:44 AM CDT 06/06/2024 9:01 AM CDT us Shaw Mitchell MD LAB BLOOD ORDERABLES Final R esult Performing Organization Address [facility] Co de Phone Number KISHA TOWNSEND [address] [facility] [place] [address] * (ABNORMAL) Iron profile w/ IBC (06/06/2024 8:44 AM CDT) Pathologist [facility] Iron 27(L) 35 - 145 mcg/dL Comment:Testing performed by : [address] [address] TIBC 290 250 - 400 mcg/dL KISHA TOWNSEND Comment:Testing performed by : [address] [address] Transferrin saturation 9(L) 20 - 50 % KISHA TOWNSEND Comment:Testing performed by : [address] [address] Blood 06/06/2024 8:44 AM CDT 06/06/2024 9:01 AM CDT us Shaw Mitchell MD LAB BLOOD ORDERABLES Final R esult Performing Organization Address [facility] Co de Phone Number KISHA TOWNSEND [address] [facility] Department [place] [address] * (ABNORMAL) CBC with auto differential (06/06/2024 8:44 AM CDT) Pathologist [facility] WBC 15.15(H) 3.80 - 9.90 K/cumm Comment:Testing performed by : [address] [address] Hgb 9.5(L) 11.9 - 15.5 g/dL KISHA TOWNSEND Comment:Testing performed by : [address] [address] Hct 29.6(L) 35.6 - 45.5 % KISHA TOWNSEND Comment:Testing performed by : [address] [address] Plt 389 150 - 400 K/cumm KISHA TOWNSEND Comment:Testing performed by : [address] [address] MPV 9.2 9.1 - 12.3 fL KISHA TOWNSEND Comment:Testing performed by : [address] [address] RBC 3.40(L) 3.90 - 5.20 M/cumm KISHA TOWNSEND Comment:Testing performed by : [address] [address] MCV 87.1 81.3 - 96.4 fL KISHA Comment:Testing performed by : [address] [address] MCH 27.9 27.1 - 33.3 pg KISHA TOWNSEND Comment:Testing performed by : [address] [address] MCHC 32.1(L) 32.3 - 35.7 g/dL KISHA Comment:Testing performed by : [address] [address] RDW CV 16.2(H) 11.1 - 14.9 % KISHA Comment:Testing performed by : [address] [address] RDW SD 50.3(H) 35.7 - 48.1 fL KISHA Comment:Testing performed by : [address] [address] NRBC abs 0.00 0.00 - 0.01 K/cumm KISHA Comment:Testing performed by : [address] [address] Blood 06/06/2024 8:44 AM CDT 06/06/2024 9:01 AM CDT us Shaw Mitchell MD LAB BLOOD ORDERABLES Final R esult KISHA TOWNSEND [address] [facility] Department [place] [address] * (ABNORMAL) Vitamin D 25 hydroxy (06/06/2024 8:44 AM CDT) [facility] Vitamin D 25-OH 23.0(L) 30.0 - 80.0 ng/mL Blood 06/06/2024 8:44 AM CDT 06/06/2024 10:29 AM CDT Shaw Mitchell MD LAB BLOOD ORDERABLES Final R esult Performing Organization Address [facility] Co de Phone Number DANNY[address] [place] [address] * Phosphorus (06/06/2024 8:44 AM CDT) [facility] Phosphorus, pl 3.5 2.3 - 4.5 mg/dL Comment:Testing performed by : [address], [address] Blood 06/06/2024 8:44 AM CDT 06/06/2024 9:01 AM CDT Shaw Mitchell MD LAB BLOOD ORDERABLES Final R esult Performing Organization Address [facility] de Phone Number DANNY[address] [address] * Magnesium (06/06/2024 8:44 AM CDT) [facility] Magnesium 2.2 1.4 - 2.5 mg/dL Comment:Testing performed by : [address] [address] Blood 06/06/2024 8:44 AM CDT 06/06/2024 9:01 AM CDT Shaw Mitchell MD LAB BLOOD ORDERABLES Final R esult Performing Organization Address City/[facility] Co de Phone Number DANNY[address] [address] * Folate (06/06/2024 8:44 AM CDT) [facility] Folic acid 8.3 >=5.0 ng/mL Comment:Testing performed by : [address] [address] Blood 06/06/2024 8:44 AM CDT 06/06/2024 9:01 AM CDT Shaw Mitchell MD LAB BLOOD ORDERABLES Final R esult Performing Organization Address [facility] Co de Phone Number [address] [place] [address] * Vitamin B12 (06/06/2024 8:44 AM CDT) Pathologist [facility] Vitamin B12 398 230 - 1,250 pg/mL Comment:Testing performed by : [address] [address] Blood 06/06/2024 8:44 AM CDT 06/06/2024 9:01 AM CDT Shaw Mitchell MD LAB BLOOD ORDERABLES Final R esult Performing Organization Address [facility] de Phone Number [address] [address] * (ABNORMAL) Basic metabolic panel (06/06/2024 8:44 AM CDT) Pathologist [facility] Sodium 132(L) 135 - 145 mmol/L Comment:Testing performed by : [address] [address] Potassium, pl 3.7 3.3 - 4.9 mmol/L KISHA Comment:Testing performed by : [address] [address] Chloride 96(L) 97 - 110 mmol/L KISHA Comment:Testing performed by : [address] [address] CO2 23 22 - 32 mmol/L KISHA Comment:Testing performed by : [address] [address] Anion gap 13 2 - 15 mmol/L KISHA Comment:Testing performed by : [address] [address] BUN 34(H) 6 - 25 mg/dL KISHA Comment:Testing performed by : [address] [address] Creatinine 0.60 0.60 - 1.10 mg/dL KISHA Comment:Testing performed by : [address] [address] Glucose 414(H) 70 - 199 mg/dL KISHA [...] was last revised 2022. Testing performed by: [address] [address] Calcium 8.8 8.5 - 10.3 mg/dL KISHA Comment:Testing performed by : [address] [address] Blood 06/06/2024 8:44 AM CDT 06/06/2024 9:01 AM CDT us Shaw Mitchell MD LAB BLOOD ORDERABLES Final R esult BANNERELVIN [address] [facility] Department [place] [address] * (ABNORMAL) POCT glucose (06/06/2024 7:49 AM CDT) Glucose, POC 430(H) 70 - 199 mg/dL Comment:Testing performed by : [address] [address] Blood 06/06/2024 7:49 AM CDT 06/06/2024 7:49 AM CDT Shaw Mitchell MD LAB POCT ORDERABLES - DEVICE Final Result Performing Organization Address [facility] Co de Phone Number KISHA [address] [place] [address] * (ABNORMAL) POCT glucose (06/05/2024 8:54 PM CDT) [facility] Signature Glucose, POC 244(H) 70 - 199 mg/dL Comment:Testing performed by : [address] [address] Blood 06/05/2024 8:54 PM CDT 06/05/2024 8:54 PM CDT Angelique Pace MD LAB POCT ORDERABLES - DEVICE Final Result Performing Organization Address [facility] de Phone Number [address] [address] * (ABNORMAL) POCT glucose (06/05/2024 3:55 PM CDT) [facility] Glucose, POC 444(H) 70 - 199 mg/dL Comment:Testing performed by : [address] [address] Glucose comment 1 RN/MD Notified [facility] Comment:Testing performed by : [address] [address] Blood 06/05/2024 3:55 PM CDT 06/05/2024 3:55 PM CDT Angelique Pace MD LAB POCT ORDERABLES - DEVICE Final Result Performing Organization Address [facility] de Phone Number DANNY[address] [address] * (ABNORMAL) POCT glucose (06/05/2024 3:53 PM CDT) [facility] Glucose, POC 491(C) 70 - 199 mg/dL Comment:Testing performed by : [facility], [address] [place] [address]., [address] Glucose comment 1 RN/MD Notified KISHA Comment:Testing performed by : [address] [address] Blood 06/05/2024 3:53 PM CDT 06/05/2024 3:53 PM CDT Angelique Pace MD LAB POCT ORDERABLES - DEVICE Final Result Performing Organization Address [facility] de Phone Number DANNY[address] [place] [place] [address] * (ABNORMAL) POCT glucose (06/05/2024 11:40 AM CDT) [facility] Glucose, POC 420(H) 70 - 199 mg/dL Comment:Testing performed by : [facility], [address] [place] [address]., [address] Glucose comment 1 RN/MD Notified KISHA Comment:Testing performed by : [address] [address] Blood 06/05/2024 11:4 0 AM CDT 06/05/2024 11:40 AM CDT Angelique Pace MD LAB POCT ORDERABLES - DEVICE Final Result Performing Organization Address [facility] Co de Phone Number [address] [place] [place] [address] * eGFR (06/05/2024 8:17 AM CDT) [facility] eGFR >90 >=60 mL/min/1. 73 m2 [...] was last reviewed 2020. Testing performed by: [address] [address] Blood 06/05/2024 8:17 AM CDT 06/05/2024 8:37 AM CDT Jackson Arango DO LAB BLOOD ORDERABLES Fi nal Result BANNERELVIN [facility] Department [place] [address] * (ABNORMAL) Differential, auto (06/05/2024 8:17 AM CDT) Neutrophil abs 10.04(H) 1.50 - 6.50 K/cumm Comment:Testing performed by : [address] [address] Imm gran abs 0.07 0.00 - 0.10 K/cumm KISHA Comment:Testing performed by : [address] [address] Lymphocyte abs 0.77(L) 0.80 - 3.30 K/cumm KISHA Comment:Testing performed by : [address] [address] Monocyte abs 0.76 0.20 - 0.80 K/cumm KISHA Comment:Testing performed by : [address] [address] Eosinophil abs 0.00 0.00 - 0.50 K/cumm KISHA Comment:Testing performed by : [address] [address] Basophil abs 0.01 0.00 - 0.10 K/cumm KISHA Comment:Testing performed by : [address] [address] Neutrophil pct 86.2 % [facility] Comment: Interpretive Data Percent cell count reference ranges are not reported, since discordance with absolute values may lead to misinterpretation of CBC data. Current Interpretive Data was last revised on 2017. Testing performed by: [address] [address] Imm gran pct 0.6 % [facility] Comment: Interpretive Data Percent cell count reference ranges are not reported, since discordance with absolute values may lead to misinterpretation of CBC data. Current Interpretive Data was last revised on 2017. Testing performed by: [address] [address] Lymphocyte pct 6.6 % [facility] Comment: Interpretive Data Percent cell count reference ranges are not reported, since discordance with absolute values may lead to misinterpretation of CBC data. Current Interpretive Data was last revised on 2017. Testing performed by: [address] [address] Monocyte pct 6.5 % [facility] Comment: Interpretive Data Percent cell count reference ranges are not reported, since discordance with absolute values may lead to misinterpretation of CBC data. Current Interpretive Data was last revised on 2017. Testing performed by: [address] [address] Eosinophil pct 0.0 % [facility] Comment: Interpretive Data Percent cell count reference ranges are not reported, since discordance with absolute values may lead to misinterpretation of CBC data. Current Interpretive Data was last revised on 2017. Testing performed by: [address] [address] Basophil pct 0.1 % [facility] Comment: Interpretive Data Percent cell count reference ranges are not reported, since discordance with absolute values may lead to misinterpretation of CBC data. Current Interpretive Data was last revised on 2017. Testing performed by: [address] [place] [address] Blood 06/05/2024 8:17 AM CDT 06/05/2024 8:37 AM CDT Jackson Arango DO LAB BLOOD ORDERABLES Fi nal Result KISHA [address] [facility] Department [place] [address] * (ABNORMAL) CBC with auto differential (06/05/2024 8:17 AM CDT) WBC 11.65(H) 3.80 - 9.90 K/cumm Comment:Testing performed by : [address] [address] Hgb 9.0(L) 11.9 - 15.5 g/dL KISHA Comment:Testing performed by : [address] [address] Hct 28.2(L) 35.6 - 45.5 % KISHA Comment:Testing performed by : [address] [address] Plt 326 150 - 400 K/cumm KISHA Comment:Testing performed by : [address] [address] MPV 9.3 9.1 - 12.3 fL KISHA Comment:Testing performed by : [address] [address] RBC 3.23(L) 3.90 - 5.20 M/cumm KISHA Comment:Testing performed by : [address] [address] MCV 87.3 81.3 - 96.4 fL KISHA Comment:Testing performed by : [address] [address] MCH 27.9 27.1 - 33.3 pg KISHA TOWNSEND Comment:Testing performed by : [address] [address] MCHC 31.9(L) 32.3 - 35.7 g/dL KISHA Comment:Testing performed by : [address] [address] RDW CV 16.1(H) 11.1 - 14.9 % KISHA Comment:Testing performed by : [address] [address] RDW SD 50.5(H) 35.7 - 48.1 fL KISHA Comment:Testing performed by : [address] [address] NRBC abs 0.00 0.00 - 0.01 K/cumm KISHA Comment:Testing performed by : [address] [address] Blood 06/05/2024 8:17 AM CDT 06/05/2024 8:37 AM CDT Jackson SheffieldSky Level Enterpriesesboo DO LAB BLOOD ORDERABLES Fi nal Result Performing Organization Address City/[facility] Co de Phone Number [address] [place] [place] [address] * Magnesium (06/05/2024 8:17 AM CDT) Pathologist [facility] Magnesium 1.9 1.4 - 2.5 mg/dL Comment:Testing performed by : [address] [address] Blood 06/05/2024 8:17 AM CDT 06/05/2024 8:37 AM CDT Beatsy SPili [employer] DO LAB BLOOD ORDERABLES Fi nal Result Performing Organization Address City/[facility] Co de Phone Number [address] [place] [employer] [address] * (ABNORMAL) Comprehensive metabolic panel (06/05/2024 8:17 AM CDT) Sodium 135 135 - 145 mmol/L Comment:Testing performed by : [address] [address] Potassium, pl 3.7 3.3 - 4.9 mmol/L [facility] Comment:Testing performed by : [address] [address] Chloride 101 97 - 110 mmol/L [facility] Comment:Testing performed by : [address], [place]., [address] CO2 24 22 - 32 mmol/L [facility] Comment:Testing performed by : [address] [address] Anion gap 10 2 - 15 mmol/L [facility] Comment:Testing performed by : [address], [place]., [address] BUN 20 6 - 25 mg/dL [facility] Comment:Testing performed by : [address], [place]., [address] Creatinine 0.40(L) 0.60 - 1.10 mg/dL [facility] Comment:Testing performed by : [address] [address] Glucose 304(H) 70 - 199 mg/dL [facility] Comment: Interpretive Data Fasting glucose >/= [...] was last revised 2022. Testing performed by: [address] [address] Calcium 8.6 8.5 - 10.3 mg/dL [facility] Comment:Testing performed by : [address] [address] Bilirubin, total 0.3 0.1 - 1.2 mg/dL [facility] Comment:Testing performed by : [address] [address] Protein, pl 6.4(L) 6.5 - 8.5 g/dL KISHA TOWNSEND Comment:Testing performed by : [address] [address] Albumin 3.6 3.5 - 5.0 g/dL KISHA TOWNSEND Comment:Testing performed by : [address] [address] Alk phos 95 40 - 130 Units/L KISHA TOWNSEND Comment:Testing performed by : [address] [address] ALT 12 7 - 45 Units/L KISHA Comment:Testing performed by : [address] [address] AST 18 10 - 45 Units/L KISHA Comment:Testing performed by : [address] [address] Blood 06/05/2024 8:17 AM CDT 06/05/2024 8:37 AM CDT us Jackson Arango DO LAB BLOOD ORDERABLES Fi nal Result Performing Organization Address City/[facility]/ZIP Co de Phone Number [address] [place] [place] [address] * (ABNORMAL) POCT glucose (06/05/2024 8:12 AM CDT) [facility] Glucose, POC 315(H) 70 - 199 mg/dL Comment:Testing performed by : [address] [address] Glucose comment 1 RN/MD Notified KISHA TOWNSEND Comment:Testing performed by : [address] [address] Blood 06/05/2024 8:12 AM CDT 06/05/2024 8:12 AM CDT Angelique Pace MD LAB POCT ORDERABLES - DEVICE Final Result Performing Organization Address City/[facility] Co de Phone Number [address] [place] [place] [address] * (ABNORMAL) POCT glucose (06/04/2024 8:03 PM CDT) Glucose, POC 398(H) 70 - 199 mg/dL Comment:Testing performed by : [address] [address] Blood 06/04/2024 8:03 PM CDT 06/04/2024 8:03 PM CDT Jackson Vikram [employer] LAB POCT ORDERABLES - D EVICE Final Result Performing Organization Address City/[facility] Co de Phone Number [address] [place] [employer] [address] * (ABNORMAL) POCT glucose (06/04/2024 3:55 PM CDT) Glucose, POC 361(H) 70 - 199 mg/dL Comment:Testing performed by : [address] [address] Blood 06/04/2024 3:55 PM CDT 06/04/2024 3:55 PM CDT Jackson Vikram Ub[employer]deidraVTEX[employer] DO LAB POCT ORDERABLES - D EVICE Final Result Performing Organization Address [facility] Co de Phone Number [address] [place] [employer] [address] * (ABNORMAL) POCT glucose (06/04/2024 12:13 PM CDT) Glucose, POC 356(H) 70 - 199 mg/dL Comment:Testing performed by : [address] [address] Glucose comment 1 RN/MD Notified KISHA Comment:Testing performed by : [address] [address] Blood 06/04/2024 12:1 3 PM CDT 06/04/2024 12:13 PM CDT Jackson Sheffielduraavl DO LAB POCT ORDERABLES - D EVICE Final Result Performing Organization Address [facility] Co de Phone Number KISHA [facility]0 [facility] [place] [place] [address] * eGFR (06/04/2024 8:26 AM CDT) eGFR [...] was last reviewed 2020. Testing performed by: [address] [address] Blood 06/04/2024 8:26 AM CDT 06/04/2024 8:44 AM CDT Jackson Sheffieldurayil DO LAB BLOOD ORDERABLES Fi nal Result Performing Organization Address City/[facility]/ZIP Co de Phone Number KISHA [facility] [place] [place] [address] * (ABNORMAL) Differential, auto (06/04/2024 8:26 AM CDT) Neutrophil abs 8.12(H) 1.50 - 6.50 K/cumm Comment:Testing performed by : [address] [address] Imm gran abs 0.03 0.00 - 0.10 K/cumm KISHA Comment:Testing performed by : [address] [address] Lymphocyte abs 0.64(L) 0.80 - 3.30 K/cumm KISHA Comment:Testing performed by : [address] [address] Monocyte abs 0.82(H) 0.20 - 0.80 K/cumm [facility] Comment:Testing performed by : [address] [address] Eosinophil abs 0.00 0.00 - 0.50 K/cumm KISHA Comment:Testing performed by : [address] [address] Basophil abs 0.01 0.00 - 0.10 K/cumm BANNERELVIN Comment:Testing performed by : [address] [address] Neutrophil pct 84.4 % [facility] Comment: Interpretive Data Percent cell count reference ranges are not reported, since discordance with absolute values may lead to misinterpretation of CBC data. Current Interpretive Data was last revised on 2017. Testing performed by: [address] [address] Imm gran pct 0.3 % [facility] Comment: Interpretive Data Percent cell count reference ranges are not reported, since discordance with absolute values may lead to misinterpretation of CBC data. Current Interpretive Data was last revised on 2017. Testing performed by: [address] [address] Lymphocyte pct 6.7 % CERNER Comment: Interpretive Data Percent cell count reference ranges are not reported, since discordance with absolute values may lead to misinterpretation of CBC data. Current Interpretive Data was last revised on 2017. Testing performed by: [address] [address] Monocyte pct 8.5 % C[facility]ER Comment: Interpretive Data Percent cell count reference ranges are not reported, since discordance with absolute values may lead to misinterpretation of CBC data. Current Interpretive Data was last revised on 2017. Testing performed by: [address] [address] Eosinophil pct 0.0 % KISHA Comment: Interpretive Data Percent cell count reference ranges are not reported, since discordance with absolute values may lead to misinterpretation of CBC data. Current Interpretive Data was last revised on 2017. Testing performed by: [address] [address] Basophil pct 0.1 % KISHA Comment: Interpretive Data Percent cell count reference ranges are not reported, since discordance with absolute values may lead to misinterpretation of CBC data. Current Interpretive Data was last revised on 2017. Testing performed by: [address] [address] Blood 06/04/2024 8:26 AM CDT 06/04/2024 8:44 AM CDT Jackson Arango DO LAB BLOOD ORDERABLES Fi nal Result [facility] [address] [facility] Department [place] [address] * (ABNORMAL) CBC with auto differential (06/04/2024 8:26 AM CDT) WBC 9.62 3.80 - 9.90 K/cumm Comment:Testing performed by : [address] [address] Hgb 9.1(L) 11.9 - 15.5 g/dL KISHA Comment:Testing performed by : [address] [address] Hct 28.3(L) 35.6 - 45.5 % KISHA Comment:Testing performed by : [address] [address] Plt 270 150 - 400 K/cumm KISHA Comment:Testing performed by : [address] [address] MPV 9.4 9.1 - 12.3 fL KISHA TOWNSEND Comment:Testing performed by : [address] [address] RBC 3.22(L) 3.90 - 5.20 M/cumm KISHA TOWNSEND Comment:Testing performed by : [address] [address] MCV 87.9 81.3 - 96.4 fL KISHA TOWNSEND Comment:Testing performed by : [address], [address] MCH 28.3 27.1 - 33.3 pg KISHA TOWNSEND Comment:Testing performed by : [address], [address] MCHC 32.2(L) 32.3 - 35.7 g/dL KISHA TOWNSEND Comment:Testing performed by : [address] [address] RDW CV 16.0(H) 11.1 - 14.9 % KISHA Comment:Testing performed by : [address], [address] RDW SD 50.4(H) 35.7 - 48.1 fL KISHA Comment:Testing performed by : [address] [address] NRBC abs 0.00 0.00 - 0.01 K/cumm KISHA Comment:Testing performed by : [address], [address] Blood 06/04/2024 8:26 AM CDT 06/04/2024 8:44 AM CDT us Jackson Arango DO LAB BLOOD ORDERABLES Fi nal Result KISHA 57[address] [facility] Department [place] [address] * Magnesium (06/04/2024 8:26 AM CDT) Pathologist [facility] Magnesium 1.9 1.4 - 2.5 mg/dL Comment:Testing performed by : [address] [place] [address] Blood 06/04/2024 8:26 AM CDT 06/04/2024 8:44 AM CDT Jackson Arango DO LAB BLOOD ORDERABLES Fi nal Result BANNERELVIN 45[address] [facility] [place] [address] * (ABNORMAL) Comprehensive metabolic panel (06/04/2024 8:26 AM CDT) Sodium 135 135 - 145 mmol/L Comment:Testing performed by : [address] [address] Potassium, pl 3.9 3.3 - 4.9 mmol/L KISHA Comment:Testing performed by : [address] [address] Chloride 102 97 - 110 mmol/L KISHA Comment:Testing performed by : [address] [address] CO2 22 22 - 32 mmol/L KISHA Comment:Testing performed by : [address] [address] Anion gap 11 2 - 15 mmol/L KISHA Comment:Testing performed by : [address] [address] BUN 12 6 - 25 mg/dL KISHA Comment:Testing performed by : [address] [address] Creatinine 0.43(L) 0.60 - 1.10 mg/dL KISHA Comment:Testing performed by : [address] [address] Glucose 254(H) 70 - 199 mg/dL KISHA [...] was last revised 2022. Testing performed by: [facility], [address] [place] [address]., [address] Calcium 8.7 8.5 - 10.3 mg/dL KISHA Comment:Testing performed by : [address] [address] Bilirubin, total 0.3 0.1 - 1.2 mg/dL KISHA Comment:Testing performed by : [address] [address] Protein, pl 6.7 6.5 - 8.5 g/dL KISHA Comment:Testing performed by : [address] [address] Albumin 3.7 3.5 - 5.0 g/dL KISHA Comment:Testing performed by : [address] [address] Alk phos 97 40 - 130 Units/L KISHA Comment:Testing performed by : [address] [address] ALT 13 7 - 45 Units/L KISHA Comment:Testing performed by : [address] [address] AST 30 10 - 45 Units/L KISHA Comment:Testing performed by : [address] [address] Blood 06/04/2024 8:26 AM CDT 06/04/2024 8:44 AM CDT us Jackson Arango DO LAB BLOOD ORDERABLES Fi nal Result KISHA 0072 [facility] [place] [address] * (ABNORMAL) POCT glucose (06/04/2024 8:24 AM CDT) Glucose, POC 270(H) 70 - 199 mg/dL Comment:Testing performed by : [address] [address] Glucose comment 1 RN/MD Notified KISHA Comment:Testing performed by : [facility], [address] [place] [address]., [address] Blood 06/04/2024 8:24 AM CDT 06/04/2024 8:24 AM CDT Jackson SPili Collinsapurayil DO LAB POCT ORDERABLES - D EVICE Final Result Performing Organization Address [facility] Co de Phone Number [place] [phone] [facility] [place] [address] * POCT glucose (06/03/2024 11:25 PM CDT) Glucose, POC 183 70 - 199 mg/dL Comment:Testing performed by : [address], [address] Glucose comment 1 Follow Protocol KISHA Comment:Testing performed by : [address] [address] Blood 06/03/2024 11:2 5 PM CDT 06/03/2024 11:25 PM CDT Jackson SPili Kalapurayil DO LAB POCT ORDERABLES - D EVICE Final Result Performing Organization Address [facility] Co de Phone Number [place] [phone] [facility] [place] [address] * (ABNORMAL) POCT glucose (06/03/2024 9:04 PM CDT) Glucose, POC 331(H) 70 - 199 mg/dL Comment:Testing performed by : [address] [address] Glucose comment 1 Follow Protocol KISHA Comment:Testing performed by : [address] [address] Blood 06/03/2024 9:04 PM CDT 06/03/2024 9:04 PM CDT Jackson Arango DO LAB POCT ORDERABLES - D EVICE Final Result Performing Organization Address City/[facility] Co de Phone Number KISHA [address] [place] [employer] [address] * (ABNORMAL) POCT glucose (06/03/2024 7:02 PM CDT) Glucose, POC 351(H) 70 - 199 mg/dL Comment:Testing performed by : [address] [address] Blood 06/03/2024 7:02 PM CDT 06/03/2024 7:02 PM CDT Jackson Arango DO LAB POCT ORDERABLES - D EVICE Final Result Performing Organization Address [facility] Co de Phone Number [address]AN[address] [address] * (ABNORMAL) POCT glucose (06/03/2024 6:21 PM CDT) Glucose, POC 321(H) 70 - 199 mg/dL Comment:Testing performed by : [address] [address] Blood 06/03/2024 6:21 PM CDT 06/03/2024 6:21 PM CDT Jackson Arango DO LAB POCT ORDERABLES - D EVICE Final Result Performing Organization Address City/[facility] Co de Phone Number KISHA [address] [address] * (ABNORMAL) POCT glucose (06/03/2024 6:19 PM CDT) Glucose, POC 342(H) 70 - 199 mg/dL Comment:Testing performed by : [address] [address] Blood 06/03/2024 6:19 PM CDT 06/03/2024 6:19 PM CDT Jackson Arango DO LAB POCT ORDERABLES - D EVICE Final Result Performing Organization Address [facility] Co de Phone Number KISHA [address] [place] [address] * eGFR (06/03/2024 12:53 PM CDT) eGFR >90 >=60 mL/min/1. 73 [...] was last reviewed 2020. Testing performed by: [facility], [address] [place] [address]., [address] Blood 06/03/2024 12:5 3 PM CDT 06/03/2024 1:07 PM CDT us Jackson Collinsapurayil DO LAB BLOOD ORDERABLES Fi nal Result Performing Organization Address City/[facility]/ZIP Co de Phone Number KISHA [address] [place] [place] [address] * Differential, auto (06/03/2024 12:53 PM CDT) Neutrophil abs 3.43 1.50 - 6.50 K/cumm Comment:Testing performed by : [address] [address] Imm gran abs 0.02 0.00 - 0.10 K/cumm KISHA Comment:Testing performed by : [address] [address] Lymphocyte abs 0.94 0.80 - 3.30 K/cumm [facility] Comment:Testing performed by : [address] [address] Monocyte abs 0.75 0.20 - 0.80 K/cumm [facility] Comment:Testing performed by : [address] [address] Eosinophil abs 0.00 0.00 - 0.50 K/cumm [facility] Comment:Testing performed by : [address] [address] Basophil abs 0.00 0.00 - 0.10 K/cumm [facility] Comment:Testing performed by : [address] [address] Neutrophil pct 66.7 % [facility] Comment: Interpretive Data Percent cell count reference ranges are not reported, since discordance with absolute values may lead to misinterpretation of CBC data. Current Interpretive Data was last revised on 2017. Testing performed by: [address] [address] Imm gran pct 0.4 % [facility] Comment: Interpretive Data Percent cell count reference ranges are not reported, since discordance with absolute values may lead to misinterpretation of CBC data. Current Interpretive Data was last revised on 2017. Testing performed by: [address] [address] Lymphocyte pct 18.3 % [facility] Comment: Interpretive Data Percent cell count reference ranges are not reported, since discordance with absolute values may lead to misinterpretation of CBC data. Current Interpretive Data was last revised on 2017. Testing performed by: [address] [place] [address] Monocyte pct 14.6 % KISHA Comment: Interpretive Data Percent cell count reference ranges are not reported, since discordance with absolute values may lead to misinterpretation of CBC data. Current Interpretive Data was last revised on 2017. Testing performed by: [address] [address] Eosinophil pct 0.0 % KISHA Comment: Interpretive Data Percent cell count reference ranges are not reported, since discordance with absolute values may lead to misinterpretation of CBC data. Current Interpretive Data was last revised on 2017. Testing performed by: [address] [address] Basophil pct 0.0 % KISHA Comment: Interpretive Data Percent cell count reference ranges are not reported, since discordance with absolute values may lead to misinterpretation of CBC data. Current Interpretive Data was last revised on 2017. Testing performed by: [address] [address] Blood 06/03/2024 12:5 3 PM CDT 06/03/2024 1:07 PM CDT Jackson Arango DO LAB BLOOD ORDERABLES Fi nal Result KISHA 0787 [facility] [place] [address] * (ABNORMAL) CBC with auto differential (06/03/2024 12:53 PM CDT) Pathologist [facility] WBC 5.14 3.80 - 9.90 K/cumm Comment:Testing performed by : [address] [address] Hgb 8.8(L) 11.9 - 15.5 g/dL KISHA [place] Comment:Testing performed by : [address] [address] Hct 27.7(L) 35.6 - 45.5 % KISHA Comment:Testing performed by : [address] [address] Plt 233 150 - 400 K/cumm KISHA [place] Comment:Testing performed by : [address] [address] MPV 9.4 9.1 - 12.3 fL KISHA [place] Comment:Testing performed by : [address] [address] RBC 3.12(L) 3.90 - 5.20 M/cumm KISHA [place] Comment:Testing performed by : [address] [address] MCV 88.8 81.3 - 96.4 fL KISHA Comment:Testing performed by : [address] [address] MCH 28.2 27.1 - 33.3 pg KISHA [place] Comment:Testing performed by : [address] [address] MCHC 31.8(L) 32.3 - 35.7 g/dL KISHA Comment:Testing performed by : [address] [address] RDW CV 16.1(H) 11.1 - 14.9 % KISHA Comment:Testing performed by : [address] [address] RDW SD 51.4(H) 35.7 - 48.1 fL KISHA [place] Comment:Testing performed by : [address] [address] NRBC abs 0.00 0.00 - 0.01 K/cumm KISHA Comment:Testing performed by : [address] [address] Blood 06/03/2024 12:5 3 PM CDT 06/03/2024 1:07 PM CDT us Jackson Arango DO LAB BLOOD ORDERABLES Fi nal Result KISHA 7597 [facility] Department [place] [address] * Magnesium (06/03/2024 12:53 PM CDT) Magnesium 1.8 1.4 - 2.5 mg/dL Comment:Testing performed by : [address] [address] Blood 06/03/2024 12:5 3 PM CDT 06/03/2024 1:07 PM CDT Jackson Arango DO LAB BLOOD ORDERABLES Fi nal Result [facility] 4500 [facility] Department [place] [address] * (ABNORMAL) Comprehensive metabolic panel (06/03/2024 12:53 PM CDT) Pathologist [facility] Sodium 135 135 - 145 mmol/L Comment:Testing performed by : [address] [address] Potassium, pl 3.0(L) 3.3 - 4.9 mmol/L KISHA Comment:Testing performed by : [address] [address] Chloride 101 97 - 110 mmol/L KISHA Comment:Testing performed by : [address] [address] CO2 24 22 - 32 mmol/L KISHA Comment:Testing performed by : [address] [address] Anion gap 10 2 - 15 mmol/L KISHA Comment:Testing performed by : [address] [address] BUN 11 6 - 25 mg/dL KISHA Comment:Testing performed by : [address] [address] Creatinine 0.53(L) 0.60 - 1.10 mg/dL KISHA Comment:Testing performed by : [address] [address] Glucose 231(H) 70 - 199 mg/dL KISHA [...] was last revised 2022. Testing performed by: [address] [address] Calcium 8.3(L) 8.5 - 10.3 mg/dL KISHA Comment:Testing performed by : [address] [address] Bilirubin, total 0.3 0.1 - 1.2 mg/dL BANNERELVIN Comment:Testing performed by : [address] [address] Protein, pl 6.2(L) 6.5 - 8.5 g/dL BANNERELVIN Comment:Testing performed by : [address] [address] Albumin 3.5 3.5 - 5.0 g/dL BANNERELVIN Comment:Testing performed by : [address] [address] Alk phos 92 40 - 130 Units/L KISHA Comment:Testing performed by : [address] [address] ALT 12 7 - 45 Units/L BANNERELVIN Comment:Testing performed by : [address] [address] AST 22 10 - 45 Units/L BANNERELVIN Comment:Testing performed by : [address] [address] Blood 06/03/2024 12:5 3 PM CDT 06/03/2024 1:07 PM CDT us Jackson Arango DO LAB BLOOD ORDERABLES Fi nal Result KISHA [address] [address] * (ABNORMAL) POCT glucose (06/03/2024 11:38 AM CDT) Glucose, POC 286(H) 70 - 199 mg/dL Comment:Testing performed by : [address] [address] Glucose comment 1 Use This Result KISHA [place] Comment:Testing performed by : [address] [address] Blood 06/03/2024 11:3 8 AM CDT 06/03/2024 11:38 AM CDT us Jackson Arango DO LAB POCT ORDERABLES - D EVICE Final Result Performing Organization Address [facility] de Phone Number [address] [address] * POCT glucose (06/03/2024 8:24 AM CDT) Glucose, POC 126 70 - 199 mg/dL Comment:Testing performed by : [address] [address] Glucose comment 1 RN/MD Notified KISHA [place] Comment:Testing performed by : [address] [address] Blood 06/03/2024 8:24 AM CDT 06/03/2024 8:24 AM CDT us Jackson Nickl DO LAB POCT ORDERABLES - D EVICE Final Result Performing Organization Address [facility] Co de Phone Number [address] [address] * Troponin T high-sensitivity 6-hour (06/03/2024 4:19 AM CDT) Trop T hs 14 <=14 ng/L Comment: Interpretive Data For further hscTnT resources including the diagnostic algorithm and an aid in interpretation, copy and paste this link: https://nrl.testcatalog.org/show/hsTrop Current Interpretive Data last revised 2020. Testing performed by: [address] [address] Trop T hs delta See Comment ng/L KISHA Comment: Inappropriate collection time to report a delta. Testing performed by: [address] [address] Trop T hs pct delta See Comment % KISHA Comment: Inappropriate collection time to report a delta. Testing performed by: [address] [address] Trop T hs interp See Comment KISHA Comment: Inappropriate collection time to report a delta. Testing performed by: [address] [address] Blood 06/03/2024 4:19 AM CDT 06/03/2024 5:22 AM CDT us Reynaldo Cuevas DO LAB BLOOD ORDERABLES Final Res ult Performing Organization Address City/[facility]/ZIP Co de Phone Number [address] [place] [employer] [place] [address] * Thyroid Function [place] (06/03/2024 4:19 AM CDT) TSH 0.75 0.30 - 4.20 mcIUnit/mL Comment:Testing performed by : [address] [address] Blood 06/03/2024 4:19 AM CDT 06/03/2024 5:22 AM CDT us Katty Armenta MD LAB BLOOD ORDER PHUONG Final Result [address] [place] [employer] [address] * Troponin T high-sensitivity 4-hour (06/03/2024 12:38 AM CDT) Trop T hs 10 <=14 ng/L Comment: Interpretive Data For further hscTnT resources including the diagnostic algorithm and an aid in interpretation, copy and paste this link: https://nrl.testcatalog.org/show/hsTrop Current Interpretive Data last revised 2020. Testing performed by: [address] [address] Trop T hs delta 2 ng/L KISHA Comment:Testing performed by : [address] [address] Trop T hs interp Insignificant KISHA Comment:Testing performed by : [address] [address] Blood 06/03/2024 12:3 8 AM CDT 06/03/2024 12:41 AM CDT Reynaldo Cuevas DO LAB BLOOD ORDERABLES Final Res ult Performing Organization Address [facility] Co de Phone Number [address] [place] [employer] [address] * POCT glucose (06/02/2024 11:11 PM CDT) [facility] Glucose, POC 174 70 - 199 mg/dL Comment:Testing performed by : [address] [address] Blood 06/02/2024 11:1 1 PM CDT 06/02/2024 11:11 PM CDT Katyt Armenta MD LAB POCT ORDERA BLES - DEVICE Final Result Performing Organization Address City/[facility] de Phone Number [address] Department [place] [employer] [place] [address] * (ABNORMAL) Urinalysis reflex to microscopic and culture Urine (06/02/2024 10:37 PM CDT) Pathologist [facility] Color, ur Yellow Yellow Comment:Testing performed by : [address] [address] Clarity, ur Clear Clear KISHA Comment:Testing performed by : [address] [address] Specific gravity, ur 1.007 1.003 - 1.030 KISHA Comment:Testing performed by : [address], [place]., [address] pH, urine 7.5 KISHA Comment: Interpretive Data U rine pH is affected by diet, medications, systemic acid-base disturbances, and renal tubular function. pH may affect urinary stone formation. For example, urine pH below 6.0 may help reduce the tendency for calcium phosphate stones and pH greater than 6.0 may reduce the tendency for uric acid stone formation. Source: [facility] [employer] Current Interpretive Data was last revised on 2017 Testing performed by: [address] [address] Protein, ur ql Negative Negative KISHA Comment:Testing performed by : [address] [address] Glucose, ur ql Negative Negative KISHA Comment:Testing performed by : [address] [address] Ketones, ur Negative Negative KISHA Comment:Testing performed by : [address] [address] Bilirubin, ur Negative Negative KISHA Comment:Testing performed by : [address] [address] Blood, ur Negative Negative KISHA Comment:Testing performed by : [address] [address] Urobilinogen, ur <2.0 <2.0 mg/dL KISHA Comment:Testing performed by : [address] [address] Nitrite, ur Positive(A) Negative KISHA Comment:Testing performed by : [address] [address] Leukocyte esterase, ur 4+(A) Negative KISHA Comment:Testing performed by : [address] [address] UA reflex comment Reflex to microscopic UA will be performed. KISHA Comment:Testing performed by : [address] [address] Urine 06/02/2024 10:3 7 PM CDT 06/02/2024 10:39 PM CDT [employer] LAB MICROBIOLOGY - GENERAL ORD ERABLES Final Result Performing Organization Address [facility] de Phone Number KISHA [facility]0 [facility] [employer] [place] [address] * (ABNORMAL) Urinalysis, microscopic only (06/02/2024 10:37 PM CDT) WBC, ur 21-50(A) 0 - 5 /HPF Comment:Testing performed by : [address] [address] RBC, ur 0-2 0 - 2 /HPF KISHA Comment:Testing performed by : [address] [address] Epithelial cells, squamous, ur 11-20(A) 0 - 5 /HPF KISHA Comment:Testing performed by : [address] [address] Bacteria, ur 1+(A) KISHA Comment:Testing performed by : [address] [address] Mucous, ur Present(A) KISHA Comment:Testing performed by : [address] [address] Culture Reflex Comment Reflex to urine culture will be performed. KISHA Comment:Testing performed by : [address] [address] Urine 06/02/2024 10:3 7 PM CDT 06/02/2024 10:39 PM CDT Reynaldo Cuevas DO LAB URINE ORDERABLES Final Res ult Performing Organization Address [facility] Co de Phone Number KISHA [facility]0 [facility] [place] [place] [address] * (ABNORMAL) Urine culture Urine (06/02/2024 10:37 PM CDT) Report Final Report: Greater than or equal to 100,000 colonies/mL of Escherichia coli (.) Comment:Testing performed by : [facility], [address] [facility], [place]., [address] Organism ESCHERICHIA COLI KISHA Urine 06/02/2024 10:3 7 PM CDT 06/03/2024 5:22 AM CDT Narrative KISHA - 06/05/2024 12:01 PM CDT Testing performed by [facility] ([phone]) Organism Antibiotic Method Susceptibility Escherichia coli Ampicillin [...] MICROBIOLOG Y - GENERAL ORDERABLES Final Result KISHA [address]4 [facility] Department [place] [address] * Troponin T high-sensitivity 2-hour (06/02/2024 10:21 PM CDT) Trop T hs 9 <=14 ng/L Comment: Interpretive Data For further hscTnT resources including the diagnostic algorithm and an aid in interpretation, copy and paste this link: https://nrl.testcatalog.org/show/hsTrop Current Interpretive Data last revised 2020. Testing performed by: [address] [address] Trop T hs delta 1 ng/L KISHA Comment:Testing performed by : [address] [place]., [address] Trop T hs interp Insignificant KISHA Comment:Testing performed by : [facility], [address] [place] [address]., [address] Blood 06/02/2024 10:2 1 PM CDT 06/02/2024 10:25 PM CDT us Reynaldo Cuevas DO LAB BLOOD ORDERABLES Final Res ult Performing Organization Address [facility] Co de Phone Number [address] [place] [address] * POCT glucose (06/02/2024 10:19 PM CDT) Glucose, POC 152 70 - 199 mg/dL Comment:Testing performed by : [address] [address] Glucose comment 1 RN/MD Notified KISHA Comment:Testing performed by : [address] [address] Blood 06/02/2024 10:1 9 PM CDT 06/02/2024 10:19 PM CDT Katty Armenta MD LAB POCT ORDERA BLES - DEVICE Final Result Performing Organization Address [facility] Co de Phone Number [address] [address] * Troponin T high-sensitivity series (baseline, 2hr, 4hr, 6hr) (06/02/2024 8:11 PM CDT) Trop T hs 8 <=14 ng/L Comment: Interpretive Data For further hscTnT resources including the diagnostic algorithm and an aid in interpretation, copy and paste this link: https://nrl.testcatalog.org/show/hsTrop Current Interpretive Data last revised 2020. Testing performed by: [address] [address] Blood 06/02/2024 8:11 PM CDT 06/02/2024 8:15 PM CDT Reynaldo Cuevas DO LAB BLOOD ORDERABLES Final Res ult Performing Organization Address City/State/[facility] Co de Phone Number KISHA [facility] [place] [address] * Sepsis Lactate w/ Reflex (06/02/2024 8:11 PM CDT) Sepsis Lactate 1.2 0.7 - 2.0 mmol/L Comment:Testing performed by : [facility], [address] [place] [address]., [address] Blood 06/02/2024 8:11 PM CDT 06/02/2024 8:15 PM CDT Reynaldo Cuevas DO LAB BLOOD ORDERABLES Final Res ult Performing Organization Address [facility] Co de Phone Number KISHA [facility] [place] [address] * eGFR (06/02/2024 8:11 PM CDT) eGFR [...] was last reviewed 2020. Testing performed by: [address] [address] Blood 06/02/2024 8:11 PM CDT 06/02/2024 8:15 PM CDT us Reynaldo Cuevas DO LAB BLOOD ORDERABLES Final Res ult [facility] [address] [facility] Department [place] [address] * (ABNORMAL) Comprehensive metabolic panel (06/02/2024 8:11 PM CDT) Sodium 136 135 - 145 mmol/L Comment:Testing performed by : [address] [address] Potassium, pl 3.7 3.3 - 4.9 mmol/L KISHA Comment: Hemolyzed; Potassium value may be falsely elevated by as much as 1.0 mmol/L. Suggest redraw and reanalysis. Testing performed by: [address] [address] Chloride 99 97 - 110 mmol/L KISHA Comment:Testing performed by : [address] [address] CO2 27 22 - 32 mmol/L KISHA Comment:Testing performed by : [address] [address] Anion gap 10 2 - 15 mmol/L KISHA Comment:Testing performed by : [address] [address] BUN 8 6 - 25 mg/dL KISHA Comment:Testing performed by : [address] [address] Creatinine 0.56(L) 0.60 - 1.10 mg/dL KISHA Comment:Testing performed by : [address] [address] Glucose 71 70 - 199 mg/dL KISHA [...] was last revised 2022. Testing performed by: [address] [address] Calcium 9.0 8.5 - 10.3 mg/dL KISHA Comment:Testing performed by : [address] [address] Bilirubin, total 0.5 0.1 - 1.2 mg/dL KISHA Comment:Testing performed by : [address] [address] Protein, pl 7.1 6.5 - 8.5 g/dL KISHA Comment:Testing performed by : [address] [address] Albumin 4.1 3.5 - 5.0 g/dL KISHA Comment:Testing performed by : [address] [address] Alk phos 112 40 - 130 Units/L KISHA Comment:Testing performed by : [address] [address] ALT 15 7 - 45 Units/L KISHA Comment:Testing performed by : [address] [address] AST 30 10 - 45 Units/L KISHA Comment: Hemolyzed; result may be falsely elevated Testing performed by: [address] [address] Blood 06/02/2024 8:11 PM CDT 06/02/2024 8:15 PM CDT us Reynaldo Cuevas DO LAB BLOOD ORDERABLES Final Res ult KISHA [place] [address] [facility] [place] [address] * XR Chest 1 Vw Portable (if [...] Dany Vu M.D. NS: NS Report ID: [id number] Reading Location: [id number] Procedure Note Dany Vu MD - 06/02/2024 [...] Dany Vu M.D. NS: NS Report ID: [id number] Reading Location: [place] [address] Reynaldo Cuevas DO IMG XR PROCEDURES Final Result * ECG 12 lead (06/02/2024 7:29 PM CDT) Ventricular Rate EKG/Min 120 BPM [facility] Atrial Rate 120 BPM [facility] MA-Interval (MSEC) 206 ms [facility] QRS-Interval (MSEC) 66 ms [facility] QT-Interval (MSEC) 304 ms [facility] QTc 429 ms [facility] P [place]icking -18 degrees [facility] R [place]icking 22 degrees [facility] T [place]icking 109 degrees [facility] Diagnosis Sinus tachycardia Septal infarct (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 rate has increased BY 49 BPM Confirmed by AUDRA CLAIRE M.D. ([id number]) on 06/08/2024 1:30:00 PM [facility] 06/02/2024 7:29 PM CDT 06/08/2024 1:30 PM CDT Reynaldo Cuevas DO ECG ORDERABLES Final Result [facility] * (ABNORMAL) Influenza A/B, RSV, and COVID-19 PCR Nasopharyngeal (06/02/2024 7:24 PM CDT) [facility] COVID-19 RNA Positive(A) Negative Comment:Testing performed by : [address] [address] Influenza A RNA Negative Negative [facility] Comment:Testing performed by : [address] [address] Influenza B RNA Negative Negative [facility] Comment:Testing performed by : [address] [address] RSV RNA Negative Negative [facility] Comment: Interpretive data: Testing performed by [facility]. This test is performed using the [employer] Xpert Xpress CoV-2/Flu/RSV plus assay. This is a multiplex, real-time reverse transcriptase PCR assay intended for the qualitative detection of nucleic acid from SARS-CoV-2, influenza A, influenza B, and respiratory syncytial virus. This assay has been cleared by the [place] Food and Drug administration. The performance characteristics have been verified by the [facility]. Results must be considered in the clinical context, and a negative result does not rule out infection. Interpretive Data last revised 2023 Testing performed by: [address] [address] Nasopharyngeal 06/02/2024 7: 24 PM CDT 06/02/2024 7:35 PM CDT Narrative [facility] - 06/02/2024 8:16 PM CDT Is the Patient experiencing symptoms consistent with COVID?->Yes Reynaldo Cuevas DO LAB MICROBIOLOGY - GENERAL ORD ERABLES Final Result BANNERELVIN 5[address] [facility] [place] [address] * (ABNORMAL) Differential, auto (06/02/2024 7:24 PM CDT) [facility] Neutrophil abs 8.49(H) 1.50 - 6.50 K/cumm Comment:Testing performed by : [address] [address] Imm gran abs 0.06 0.00 - 0.10 K/cumm BANNERELVIN Comment:Testing performed by : [address], [place]., [address] Lymphocyte abs 1.02 0.80 - 3.30 K/cumm KISHA Comment:Testing performed by : [address] [address] Monocyte abs 0.65 0.20 - 0.80 K/cumm [facility] Comment:Testing performed by : [address], [place]., [address] Eosinophil abs 0.00 0.00 - 0.50 K/cumm [facility] Comment:Testing performed by : [address], [place]., [address] Basophil abs 0.01 0.00 - 0.10 K/cumm [facility] Comment:Testing performed by : [address] [address] Neutrophil pct 82.9 % [facility] Comment: Interpretive Data Percent cell count reference ranges are not reported, since discordance with absolute values may lead to misinterpretation of CBC data. Current Interpretive Data was last revised on 2017. Testing performed by: [address] [address] Imm gran pct 0.6 % [facility] Comment: Interpretive Data Percent cell count reference ranges are not reported, since discordance with absolute values may lead to misinterpretation of CBC data. Current Interpretive Data was last revised on 2017. Testing performed by: [address] [address] Lymphocyte pct 10.0 % [facility] Comment: Interpretive Data Percent cell count reference ranges are not reported, since discordance with absolute values may lead to misinterpretation of CBC data. Current Interpretive Data was last revised on 2017. Testing performed by: [address] [address] Monocyte pct 6.4 % [facility] Comment: Interpretive Data Percent cell count reference ranges are not reported, since discordance with absolute values may lead to misinterpretation of CBC data. Current Interpretive Data was last revised on 2017. Testing performed by: [address] [address] Eosinophil pct 0.0 % KISHA [place] Comment: Interpretive Data Percent cell count reference ranges are not reported, since discordance with absolute values may lead to misinterpretation of CBC data. Current Interpretive Data was last revised on 2017. Testing performed by: [address] [address] Basophil pct 0.1 % KISHA [place] Comment: Interpretive Data Percent cell count reference ranges are not reported, since discordance with absolute values may lead to misinterpretation of CBC data. Current Interpretive Data was last revised on 2017. Testing performed by: [address] [address] Blood 06/02/2024 7:24 PM CDT 06/02/2024 7:36 PM CDT us Reynaldo Cuevas DO LAB BLOOD ORDERABLES Final Res ult KISHA [facility]3 [facility] Department [place] [address] * (ABNORMAL) CBC with auto differential (06/02/2024 7:24 PM CDT) WBC 10.23(H) 3.80 - 9.90 K/cumm Comment:Testing performed by : [address] [address] Hgb 10.3(L) 11.9 - 15.5 g/dL KISHA [place] Comment:Testing performed by : [address] [address] Hct 32.8(L) 35.6 - 45.5 % [facility]HA [place] Comment:Testing performed by : [address] [address] Plt 385 150 - 400 K/cumm KISHA [place] Comment:Testing performed by : [address] [address] MPV 9.5 9.1 - 12.3 fL KISHA [place] Comment:Testing performed by : [address] [address] RBC 3.64(L) 3.90 - 5.20 M/cumm KISHA Comment:Testing performed by : [address], [address] MCV 90.1 81.3 - 96.4 fL KISHA Comment:Testing performed by : [address], [address] MCH 28.3 27.1 - 33.3 pg KISHA Comment:Testing performed by : [address], [address] MCHC 31.4(L) 32.3 - 35.7 g/dL KISHA Comment:Testing performed by : [address], [address] RDW CV 16.2(H) 11.1 - 14.9 % KISHA Comment:Testing performed by : [address], [address] RDW SD 52.2(H) 35.7 - 48.1 fL KISHA Comment:Testing performed by : [address], [address] NRBC abs 0.00 0.00 - 0.01 K/cumm KISHA Comment:Testing performed by : [address], [address] Blood 06/02/2024 7:24 PM CDT 06/02/2024 7:36 PM CDT us Reynaldo Cuveas DO LAB BLOOD ORDERABLES Final Res ult KISHA 8505 [facility] Department [place] [address] * CT Chest WO Contrast (05/30/2024 7:08 [...] Electronically signed by Jeronimo Kumar M.D. KT: KIAN Report ID: [id number] Reading Location: [id number] Procedure Note Jeronimo Kumar MD - 05/30/2024 [...] Jeronimo Kumar M.D. KT: KT Report ID: [id number] Reading Location: [place] [address] PROCEDURES Final Result [...] was last reviewed 2020. Testing performed by: [facility], [address] [place] [address]., [address] Blood 05/30/2024 6:56 PM CDT 05/30/2024 7:03 PM CDT Bhupinder WINN LAB BLOOD ORDERABL ES Final Result KISHA 3555 [facility] Department [place] [address] * Differential, auto (05/30/2024 6:56 PM CDT) Neutrophil abs 4.92 1.50 - 6.50 K/cumm Comment:Testing performed by : [address], [place]., [address] Imm gran abs 0.01 0.00 - 0.10 K/cumm [facility] Comment:Testing performed by : [address], [place]., [address] Lymphocyte abs 1.09 0.80 - 3.30 K/cumm [facility] Comment:Testing performed by : [address], [place]., [address] Monocyte abs 0.57 0.20 - 0.80 K/cumm [facility] Comment:Testing performed by : [address] [address] Eosinophil abs 0.00 0.00 - 0.50 K/cumm [facility] Comment:Testing performed by : [address] [address] Basophil abs 0.01 0.00 - 0.10 K/cumm [facility] Comment:Testing performed by : [address] [address] Neutrophil pct 74.5 % [facility] Comment: Interpretive Data Percent cell count reference ranges are not reported, since discordance with absolute values may lead to misinterpretation of CBC data. Current Interpretive Data was last revised on 2017. Testing performed by: [address] [address] Imm gran pct 0.2 % [facility] Comment: Interpretive Data Percent cell count reference ranges are not reported, since discordance with absolute values may lead to misinterpretation of CBC data. Current Interpretive Data was last revised on 2017. Testing performed by: [address] [address] Lymphocyte pct 16.5 % [facility] Comment: Interpretive Data Percent cell count reference ranges are not reported, since discordance with absolute values may lead to misinterpretation of CBC data. Current Interpretive Data was last revised on 2017. Testing performed by: [address] [address] Monocyte pct 8.6 % [facility] Comment: Interpretive Data Percent cell count reference ranges are not reported, since discordance with absolute values may lead to misinterpretation of CBC data. Current Interpretive Data was last revised on 2017. Testing performed by: [address] [address] Eosinophil pct 0.0 % KISHA [place] Comment: Interpretive Data Percent cell count reference ranges are not reported, since discordance with absolute values may lead to misinterpretation of CBC data. Current Interpretive Data was last revised on 2017. Testing performed by: [address] [address] Basophil pct 0.2 % [facility] [place] Comment: Interpretive Data Percent cell count reference ranges are not reported, since discordance with absolute values may lead to misinterpretation of CBC data. Current Interpretive Data was last revised on 2017. Testing performed by: [address] [address] Blood 05/30/2024 6:56 PM CDT 05/30/2024 7:03 PM CDT us Bhupinder WINN LAB BLOOD ORDERABL ES Final Result KISHA 9055 [facility] Department of Laboratories [place], [place] [id number] * (ABNORMAL) CBC with auto differential (05/30/2024 6:56 PM CDT) WBC 6.60 3.80 - 9.90 K/cumm Comment:Testing performed by : [address] [address] Hgb 9.8(L) 11.9 - 15.5 g/dL KISHA [place] Comment:Testing performed by : [address] [address] Hct 30.7(L) 35.6 - 45.5 % [facility] [place] Comment:Testing performed by : [address] [address] Plt 329 150 - 400 K/cumm [facility] [place] Comment:Testing performed by : [address] [address] MPV 9.4 9.1 - 12.3 fL KISHA [place] Comment:Testing performed by : [address] [address] RBC 3.45(L) 3.90 - 5.20 M/cumm KISHA TOWNSEDN Comment:Testing performed by : [address] [address] MCV 89.0 81.3 - 96.4 fL KISHA Comment:Testing performed by : [address] [address] MCH 28.4 27.1 - 33.3 pg KISHA [place] Comment:Testing performed by : [address] [address] MCHC 31.9(L) 32.3 - 35.7 g/dL KISHA Comment:Testing performed by : [address] [address] RDW CV 16.3(H) 11.1 - 14.9 % KISHA Comment:Testing performed by : [address] [address] RDW SD 51.9(H) 35.7 - 48.1 fL KISHA Comment:Testing performed by : [address] [address] NRBC abs 0.00 0.00 - 0.01 K/cumm KISHA Comment:Testing performed by : [address] [address] Blood 05/30/2024 6:56 PM CDT 05/30/2024 7:03 PM CDT us Bhupinder WINN LAB BLOOD ORDERABL ES Final Result KISHA 1204 [facility] Department [place] [address] * (ABNORMAL) aPTT (05/30/2024 6:56 PM CDT) aPTT 40(H) 22 - 37 sec Comment: Ref Range High Interpretive data aPTT test has not been evaluated for monitoring heparin therapy. The anti-Xa is the preferred test. Current interpretive data was last revised on 2019. Testing performed by: [address] [address] Blood 05/30/2024 6:56 PM CDT 05/30/2024 7:03 PM CDT Adebowale Tolulade Adesida PA LAB BLOOD ORDERABL ES Final Result Performing Organization Address City/[facility]/ZIP Co de Phone Number KISHA [address] [place] [place] [address] * (ABNORMAL) Protime-INR (05/30/2024 6:56 PM CDT) PT 20.2(H) 12.0 - 14.6 sec Comment: Ref Range High Testing performed by: [address] [address] INR 1.8(H) 0.9 - 1.2 KISHA Comment: Ref Range High Interpretive data Oral anticoagulant therapeutic ranges: Venous thromboembolism prophylaxis or treatment: 2.0-3.0 CARDIOLOGY Standard range: 2.0-3.0 High-intensity range: 2.5-3.5 Refer to indication-specific guidelines for appropriate target ranges for prosthetic heart valve replacement. Current interpretive data was last revised on 2019. Testing performed by: [address] [address] Blood 05/30/2024 6:56 PM CDT 05/30/2024 7:03 PM CDT Adebow[employer] Tolulade Adesida PA LAB BLOOD ORDERABL ES Final Result Performing Organization Address City/[facility]/ZIP Co de Phone Number [place] [address] [facility] [employer] [place], [place] [id number] * (ABNORMAL) Comprehensive metabolic panel (05/30/2024 6:56 PM CDT) Sodium 139 135 - 145 mmol/L Comment:Testing performed by : [address] [address] Potassium, pl 3.7 3.3 - 4.9 mmol/L KISHA Comment: Hemolyzed; Potassium value may be falsely elevated by as much as 1.0 mmol/L. Suggest redraw and reanalysis. Testing performed by: [address], [place]., [address] Chloride 102 97 - 110 mmol/L KISHA Comment:Testing performed by : [address], [place]., [address] CO2 26 22 - 32 mmol/L KISHA Comment:Testing performed by : [address], [place]., [address] Anion gap 11 2 - 15 mmol/L KISHA Comment:Testing performed by : [address] [address] BUN 9 6 - 25 mg/dL [facility] Comment:Testing performed by : [address], [place]., [address] Creatinine 0.52(L) 0.60 - 1.10 mg/dL [facility] Comment:Testing performed by : [address] [address] Glucose 168 70 - 199 mg/dL [facility] Comment: Interpretive Data Fasting glucose >/= [...] was last revised 2022. Testing performed by: [address] [address] Calcium 9.2 8.5 - 10.3 mg/dL KISHA Comment:Testing performed by : [address] [address] Bilirubin, total 0.5 0.1 - 1.2 mg/dL KISHA Comment:Testing performed by : [address] [address] Protein, pl 7.1 6.5 - 8.5 g/dL KISHA Comment:Testing performed by : [address] [address] Albumin 4.1 3.5 - 5.0 g/dL KISHA Comment:Testing performed by : [address] [address] Alk phos 120 40 - 130 Units/L KISHA Comment:Testing performed by : [address] [address] ALT 14 7 - 45 Units/L KISHA Comment:Testing performed by : [address], [address] AST 30 10 - 45 Units/L KISHA Comment: Hemolyzed; result may be falsely elevated Testing performed by: [address] [address] Blood 05/30/2024 6:56 PM CDT 05/30/2024 7:03 PM CDT us Bhupinder WINN LAB BLOOD ORDERABL ES Final Result Performing Organization Address [facility] Phone Number [place] [phone] [facility] Department [place] [address] * POCT glucose (05/07/2024 8:36 AM CDT) [facility] Signature Glucose, POC 172 70 - 199 mg/dL Comment:Testing performed by : [address] [address] Blood 05/07/2024 8:36 AM CDT 05/07/2024 8:36 AM CDT Tom Polanco MD LAB POCT ORDERABLES - DEVICE Final Result KISHA 4500 [facility] Department [place] [address] * (ABNORMAL) Differential, auto (05/07/2024 5:17 AM CDT) Neutrophil abs 6.9(H) 1.5 - 6.5 K/cumm Comment:Testing performed by : [address] [address] Imm gran abs 0.0 0.0 - 0.1 K/cumm KISHA Comment:Testing performed by : [address] [address] Lymphocyte abs 2.1 0.8 - 3.3 K/cumm KISHA Comment:Testing performed by : [address] [address] Monocyte abs 1.4(H) 0.2 - 0.8 K/cumm KISHA Comment:Testing performed by : [address] [address] Eosinophil abs 0.0 0.0 - 0.5 K/cumm KISHA Comment:Testing performed by : [address] [address] Basophil abs 0.0 0.0 - 0.1 K/cumm KISHA Comment:Testing performed by : [address] [address] Neutrophil pct 66.0 % KISHA Comment: Interpretive Data Percent cell count reference ranges are not reported, since discordance with absolute values may lead to misinterpretation of CBC data. Current Interpretive Data was last revised on 2017. Testing performed by: [address] [address] Imm gran pct 0.4 % KISHA Comment: Interpretive Data Percent cell count reference ranges are not reported, since discordance with absolute values may lead to misinterpretation of CBC data. Current Interpretive Data was last revised on 2017. Testing performed by: [address] [address] Lymphocyte pct 19.9 % KISHA Comment: Interpretive Data Percent cell count reference ranges are not reported, since discordance with absolute values may lead to misinterpretation of CBC data. Current Interpretive Data was last revised on 2017. Testing performed by: [address] [address] Monocyte pct 13.6 % KISHA Comment: Interpretive Data Percent cell count reference ranges are not reported, since discordance with absolute values may lead to misinterpretation of CBC data. Current Interpretive Data was last revised on 2017. Testing performed by: [address] [address] Eosinophil pct 0.0 % KISHA Comment: Interpretive Data Percent cell count reference ranges are not reported, since discordance with absolute values may lead to misinterpretation of CBC data. Current Interpretive Data was last revised on 2017. Testing performed by: [address] [address] Basophil pct 0.1 % KISHA Comment: Interpretive Data Percent cell count reference ranges are not reported, since discordance with absolute values may lead to misinterpretation of CBC data. Current Interpretive Data was last revised on 2017. Testing performed by: [address] [address] Blood 05/07/2024 5:17 AM CDT 05/07/2024 5:52 AM CDT us Tom Polanco MD LAB BLOOD ORDERABLES F inal Result BANNERELVIN 3894 [facility] Department [place] [address] * (ABNORMAL) CBC with auto differential (05/07/2024 5:17 AM CDT) WBC 10.4(H) 3.8 - 9.9 K/cumm Comment:Testing performed by : [address] [address] Hgb 10.4(L) 11.9 - 15.5 g/dL KISHA Comment:Testing performed by : [address] [place] [address] Hct 30.5(L) 35.6 - 45.5 % KISHA Comment:Testing performed by : [address], [address] Plt 305 150 - 400 K/cumm KISHA Comment:Testing performed by : [address], [address] MPV 9.6 9.1 - 12.3 fL KISHA Comment:Testing performed by : [address], [address] RBC 3.53(L) 3.90 - 5.20 M/cumm KISHA Comment:Testing performed by : [address], [address] MCV 86.4 81.3 - 96.4 fL KISHA Comment:Testing performed by : [address], [address] MCH 29.5 27.1 - 33.3 pg KISHA Comment:Testing performed by : [address], [address] MCHC 34.1 32.3 - 35.7 g/dL KISHA Comment:Testing performed by : [address], [address] RDW CV 15.1(H) 11.1 - 14.9 % KISHA Comment:Testing performed by : [address], [address] RDW SD 46.0 35.7 - 48.1 fL KISHA Comment:Testing performed by : [address], [address] NRBC abs 0.00 0.00 - 0.01 K/cumm KISHA Comment:Testing performed by : [address], [address] Blood 05/07/2024 5:17 AM CDT 05/07/2024 5:52 AM CDT us Tom Polanco MD LAB BLOOD ORDERABLES F inal Result Performing Organization Address City/[facility] Co de Phone Number [id number] [address] * POCT glucose (05/07/2024 4:53 AM CDT) Glucose, POC 160 70 - 199 mg/dL Comment:Testing performed by : [address] [address] Blood 05/07/2024 4:53 AM CDT 05/07/2024 4:53 AM CDT Tom Polanco MD LAB POCT ORDERABLES - DEVICE Final Result Performing Organization Address [facility] Co de Phone Number DANNY[address] [address] * POCT glucose (05/07/2024 12:09 AM DESKTOP ADMINISTRATOR) Glucose, POC 113 70 - 199 mg/dL Comment:Testing performed by : [address] [address] Blood 05/07/2024 12:0 9 AM DESKTOP ADMINISTRATOR 05/07/2024 12:09 AM DESKTOP ADMINISTRATOR us Tom Polanco MD LAB POCT ORDERABLES - DEVICE Final Result Performing Organization Address [facility] Co de Phone Number [address] [address] * (ABNORMAL) Hemoglobin A1c (03/31/2024 3:12 PM DESKTOP ADMINISTRATOR) Hgb A1C 5.9(H) 4.0 - 5.6 % Comment:Testing performed by : [address] [address] Estimated Average Glucose 123 mg/dL KISHA Comment: The ADA recommends reporting an estimated Average Glucose (eAG) with all Hemoglobin A1c results using the equation derived from a study of 507 normal and diabetic adults. Minority populations were underrepresented and children were not included. (Diabetes Care 31:3662-9015, 2008). The eAG is not equivalent to a fasting glucose. Testing performed by: [facility], [address] [place] [address], [place]., [address] Blood 03/31/2024 3:12 PM DESKTOP ADMINISTRATOR 03/31/2024 3:22 PM DESKTOP ADMINISTRATOR Narrative KISHA - 03/31/2024 5:28 PM DESKTOP ADMINISTRATOR PRE SURGICAL TESTING ONLY--04/07/2024--Surgeons and Role: * Aram Oro MD - Primary-@ANPROCEDURE@ us Eleazar Ibrahim MD LAB BLOOD ORDERABL ES Final Result KISHA 98[address] [facility] [place] [address] * POCT lipid panel (08/19/2021 [...] recent COVID infection. 06/19/[address] [place] [address] MEDICARE RAILROAD [facility] MEDICARE RAILROAD [facility] MEDICARE RAILROAD [employer] Advance Directives For more information, please contact: [phone] * Full Code (Latest Code Status on File) Date Activated Date Inactivated Comments 06/05/2024 7:54 AM 06/09/2024 5:12 PM * Full Code Date Activated Date Inactivated Comments 05/04/2024 10:26 PM 05/07/2024 3:47 PM Care Teams Gun Fertilizer Relationship Specialty Start Date End Date David Pruitt MD [address] [facility] [address] [place] [address] [address] [place] [address] PCP - General Family Medicine 06/30/17 Aram Oro MD [address] [place] [address] [address] [place], [place] [id number] Consulting Physician Surgery 02/29/24 David Fried MD [address] [facility] [address] [place], [place] [id number] Radiation Oncologist Radiation Oncology 02/29/24 [place] [address] [place] [address], [place] [address] Consulting Physician Interventional Cardiology 03/17/24
--- OUTSIDE RECORDS SUMMARY | 2024-08-07 14:56 | XMS_ITS ---
Author Organization [facility] al Address [address] [place] [address] Care Team Providers Care Business Excellence Manager Name Role Phone Dvaid Pruitt MD Primary Care Provider Aram Oro MD Unavailable [phone] David Fried MD Unavailable [phone] Chema Foremna MD Unavailable Active Problems Problem Noted Date Diagnosed Date Asthma-COPD overlap syndrome 07/31/2024 Nocturnal hypoxia 07/09/2024 Steroid-induced hyperglycemia 06/09/2024 Simple chronic bronchitis 06/06/2024 Urinary tract infection without hematuria 2024 COVID-19 virus infection 06/02/2024 Breast hematoma 05/04/2024 Malignant neoplasm of upper- outer quadrant of right breast in female, estrogen receptor positive 03/11/2024 Cancer Staging:Clinical stage from 03/11/2024:Stage IA(cT1c, cN0, cM0, G1, ER+, VA+, HER2: Equivocal) - Signed by David Fried MD on 03/11/2024 Pathologic stage from 07/19/2024: pT1c, cN0, cM0, G2, ER+, VA+, HER2- - Signed by David Fried MD [...] 01/27/2018 Assessment & Plan (01/27/2018 2:58 PM DEVELOPMENTAL PSYCHOLOGIST): Reviewed chart and discussed blood work with patient. She denies any GI sx and says EGD 2 yrs ago and [id number] this year. Discussed posssibility of gi blood loss and offered EGD/Colonoscopy. At this time she declines and promises to follow blood counts with PMD promising to call if changes her mind Coronary artery disease invo lving tejon coronary artery of tejon heart without angina pectoris 01/26/2018 Mixed hyperlipidemia 01/26/2018 Diastolic dysfunction 01/26/2018 MATTHEWS (dyspnea on exertion) 06/30/2017 Uncomplicated asthma 06/30/2017 Mixed diabetic hyperlipidemi a associated with type 2 diabetes mellitus ([facility]) 06/30/2017 Lumbago 08/31/2016 Degeneration of intervertebral disc of lumbar re gion 08/31/2016 Current Treatment and Therapy Plans No current plan information found. Past Treatment and Therapy Plans No past plan information found. Current Radiation Episodes * Radiation Oncology - Radiation Therapy - June 2024Overview* First Treatment Date Latest Treatment Date Treatment Site Technique Goal Episode Provider 07/31/2024 08/04/2024 Treatment Courses* Course [id number]/31/2024 - 08/04/2024 Treatment Period Fraction Dose Fractions Total Dose Plans Planned Rt Breast 07/31/2024 - 08/04/2024 520 5 / 2 ,600 Reference Points Delivered [id number] 07/31/2024 - 08/04/2024 2,600 Resolved Problems Problem Noted Date Diagnosed Date Resolved Date Benign hypertensive heart di sease without heart failure 01/21/2021 02/04/2022 Excessive daytime sleepiness 01/21/2021 08/19/2021 Benign essential HTN 06/30/2017 021 Chest pain 01/10/2014 01/26/2018 Overview (06/05/2016): Chest pain
--- NOTE | 2024-08-07 15:16 | ED_ITS ---
HPI - Syncope General Chief Complaint: Syncope Stated Complaint: went limp on the toilet while having BM Time Seen by Provider: 08/07/24 14:42 Source: patient, family, RN notes reviewed and old records reviewed Mode of arrival: wheelchair Limitations: no limitations History of Present Illness HPI narrative: This an 78 year old female with history of COPD, carotid stenosis, TIA, atrial fibrillation who presents for evaluation of a syncopal episode. Her is at bedside assisting with history, and he states that patient was taking a shower just prior to her event. He states patient stated that she needed to use the restroom so they took her out of ther shower and put her on toilet. He states when patient sat down on the toilet she became unresponsive. He states patient was drooling and she would not answer him. He states this episoded lasted 5-10 minutes. Patient states she does not think she passed out but she does reports she was pale when she looked at herself in the mirror. PAtient only complains of weakness. She denies chest pain, shortness of breath, abdominal pain, fever. vomiting or diarrhea. She does reports that she fell 2 weeks ago and she hit her head. She did not seek treatment at that time even though she takes xarelto. Related Data Home Medications ?Medication ?Instructions ?Recorded ?Confirmed ?Last Taken ?Type albuterol sulfate 90 mcg/actuation 90 mcg inhalation PRN PRN 12/04/19 08/07/24 Unknown History aerosol inhaler (Ventolin HFA) Shortness Of Breath rosuvastatin 10 mg tablet 10 mg PO HS 12/04/19 08/07/24 Unknown History duloxetine 30 mg capsule,delayed 30 mg PO QAM 10/04/20 08/07/24 Unknown History release methotrexate sodium 2.5 mg tablet 2.5 mg PO WEEKLY 10/21/21 08/07/24 08/06/24 History leflunomide 20 mg tablet 20 mg PO DAILY 10/15/22 08/07/24 Unknown History potassium chloride 10 mEq 10 meq PO DAILY 11/03/22 08/07/24 Unknown History tablet,extended release acetaminophen 500 mg capsule 1,000 mg PO Q4-6H PRN pain 08/07/24 08/07/24 Unknown History azelastine 137 mcg (0.1 %) nasal 1 spray intranasal Q12H 08/07/24 08/07/24 Unknown History spray cyanocobalamin (vitamin B-12) 2,000 mcg PO DAILY 08/07/24 08/07/24 Unknown History 1,000 mcg tablet fluticasone 250 mcg-salmeterol 50 1 inh inhalation Q12H 08/07/24 08/07/24 Unknown History mcg/dose blistr powdr for inhalation insulin glargine U-300 conc 300 40 unit subcut DAILY 08/07/24 08/07/24 Unknown History unit/mL (3 mL) subcutaneous pen (Toujeo Max U-300 SoloStar) levocetirizine 5 mg tablet (24HR 5 mg PO DAILY PRN allergy symptoms 08/07/24 08/07/24 Unknown History Allergy Relief) tirzepatide 7.5 mg/0.5 mL 7.5 mg subcut WEEKLY 08/07/24 08/07/24 Unknown History subcutaneous pen injector Allergies Allergy/AdvReac Type Severity Reaction Status Date / Time shellfish derived Allergy Severe HIVES/RASH Verified 05/11/24 14:18 shrimp Allergy Severe RASH/HIVES Verified 05/11/24 14:18 celecoxib Allergy Intermediate RASH/HIVES Verified 05/11/24 14:18 fish oil Allergy Intermediate RASH/HIVES Verified 05/11/24 14:18 metformin Allergy Unknown Chest Pain Verified 05/11/24 14:18 [facility] Past Medical History Medical History HLD (hyperlipidemia) TIA (transient ischemic attack) Carotid stenosis GERD (gastroesophageal reflux disease) Paroxysmal atrial fibrillation (~12/2020) Echocardiogram 12/2020: Normal left ventricular systolic function EF 65-70%, mildly increased left ventricular wall thickness, diastolic function abnormal, global longitudinal strain abnormal at -15%, left atrial chamber mildly enlarged, mild mitral valve regurgitation, mild tricuspid regurgitation Asthma-COPD overlap syndrome PFTs 06/03/2021: Moderately severe obstructive abnormality without significant improvement with bronchodilator. Diffusion capacity normal. Lung volumes normal. Adult BMI 30+ Hypothyroidism (acquired) Obesity Obstructive sleep apnea Intolerant to CPAP. Diverticulitis Colon polyps Vitiligo Cancer of left breast Diabetic peripheral neuropathy Insulin dependent type 2 diabetes mellitus Hemoglobin A1c 10.02 April 2020 Depression with anxiety Rheumatoid arthritis Hypertension Degenerative joint disease of knee Osteopenia Surgical History Surgical History History of fusion of cervical spine History of cardiac catheterization Unremarkable per patient report. History of bilateral cataract extraction History of colonoscopy with polypectomy History of incision and drainage (05/2018) Right cheek abscess. History of hysterectomy History of appendectomy History of cholecystectomy History of thyroidectomy History of left mastectomy Family History Family History Father Diabetes mellitus Hypertension Cerebrovascular accident Family history of malignant melanoma Mother Diabetes mellitus Hypertension Family history of lung cancer Sibling Family history of malignant melanoma Other Family history of cardiovascular disease Family history of malignant neoplasm Malignant neoplasm of prostate Social History Social History Social History: Surrogate decision maker: Smith Goldstein, . Code status: Full code. Smoking packs per day: 3 Smoking cigarettes per day: 60.0 Years smoked: 60 Smoking pack-years: 180.00 Smoking status: Former smoker Tobacco type: cigarettes Second hand tobacco smoke exposure: Yes Additional smoking assessment comments: quit in 1998 Alcohol intake: never Substance use: never Substance use type: does not use Do You Feel Safe in your Home?: Yes Lack of Transportation: No Lack of Food: Never True Current Housing: I Have Housing Concerned About Future Housing: No Difficulty Paying Gas/Electric Bills: No Difficulty Paying for Meds: No Currently Unemployed: No Education: High School Diploma/GED Difficulty w/ Childcare or Family Care: No Living arrangements: with family Additional living arrangements comments: The patient lives in [place] with her . 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 Gender identity (if verbalized by the patient): Female Sexual Orientation (if Verbalized by the Patient): Straight or Heterosexual Spiritual care concerns: No Exam 2 Narrative: GENERAL: Well-appearing, well-nourished, and in no acute distress. HEAD: Normocephalic, atraumatic EYES: PERRLA and EOMI, conjunctiva clear without discharge EARS: TM's clear bilaterally without erythema or dullness NOSE: Nares clear, no rhinorrhea or epistaxis THROAT:Mucous membranes moist, Oropharynx normal without erythema, exudate, peritonsillar swelling or fluctuance NECK: Supple, without lymphadenopathy or mass RESPIRATORY: No respiratory distress, Airway patent, Respirations non-labored, Clear to auscultation without rales, rhonchi or wheeze HEART: Regular rate and rhythm. No murmur heard. Normal peripheral pulses. ABDOMEN: Soft, nontender, nondistended, normal active bowel sounds. No masses. No rebound or guarding, No organomegaly. EXTREMITIES: No edema, normal strength with full range of motion. SKIN: Warm, dry, normal color without rash NEURO: Alert and oriented x3. CN 2-12 grossly intact. No focal deficits. PSYCH: Normal mood and affect. Neuro: General: moves all extremities, no meningeal signs, no focal motor deficits and CN's II-XI intact bilaterally Cognition (Neuro): normal cognition Motor exam (neuro): 5/5 motor strength present throughout S ensory Exam: normal sensation Coordination: [id number] test normal Course Reevaluation(s) Reevaluation #1: I Discussed with patient and that labs shows hypokalemia. She was given oral potassium replacement. Patient also reports chronic dysuria. She states 2 weeks ago she took antibiotics for UTI. Patient gave urine sample to nurse but I discussed my concern that is not clean catch. Will get clean catch I have spoken to hospitalist who agrees they will obtain another sample when she gets to the floor. PAtient declines cath. Date: 08/07/24 Time: 17:36 Vital Signs Vital signs: Vital Signs Temperature 97.6 F 08/07/24 13:51 Pulse Rate 81 08/07/24 13:51 Respiratory Rate 16 08/07/24 13:51 Blood Pressure 95/71 L 08/07/24 13:51 Pulse Oximetry 96 08/07/24 13:51 Oxygen Delivery Room Air 08/07/24 13:51 Temperature 97.6 F 08/07/24 20:20 Pulse Rate 77 08/07/24 20:20 Respiratory Rate 18 08/07/24 20:20 Blood Pressure 188/81 H 08/07/24 20:20 Pulse Oximetry 100 08/07/24 20:20 Oxygen Delivery Room Air 08/07/24 13:51 MDM - Syncope Differential Diagnosis Differential diagnosis: Likely syncope due to orthostatic hypotension, vasovagal syncope, complete atrioventricular block, subarachnoid hemorrhage and dehydration Medical Records Attestation: I reviewed the patient's medical records. Lab Data Attestation: I reviewed the patient's lab results. 08/07/24 15:59 08/07/24 16:00 Labs: Lab Results 08/07/24 08/07/24 Range/Units 15:59 16:00 WBC 10.9 H (4.5-10.0) K/mm3 RBC 4.27 (4.2-5.4) M/mm3 Hgb 10.1 L (12.0-15.0) g/dL Hct 33.8 L (37.0-47.0) % MCV 79.2 L (80-100) fl MCH 23.7 L (26-34) pg MCHC 29.9 L (32-36) g/dl RDW 19.5 H (11.5-14.5) % Plt Count 305 (150-375) k/mm3 MPV 9.7 (7.4-10.4) fl Immature Gran % (Auto) 0.6 H (0-0.5) % Neut % (Auto) 79.2 H (45.5-73.1) % Lymph % (Auto) 10.1 L (18.3-44.2) % [place] % (Auto) 9.9 H (2.6-8.5) % Eos % (Auto) 0.0 (0-4.4) % Baso % (Auto) 0.2 (0.2-1.2) % Lymph # (Auto) 1.10 (0.9-3.2) K/mm3 [place] # (Auto) 1.1 H (0.1-0.6) K/mm3 Eos # (Auto) 0.0 (0-0.3) K/mm3 Baso # (Auto) 0.0 (0.0-0.1) K/mm3 Abs Immat Gran (auto) 0.06 H (0.00-0.031) K/mm3 Absolute Neuts (auto) 8.6 H (1.3-6.7) K/mm3 Absolute Nucleated RBC 0.000 (0.0-0.012) K/mm3 Band Neutrophils % Not Reportable Nucleated RBC % 0.0 (0.0-0.2) % Platelet Estimate Adequate (Adequate) Hypochromasia 1+ Ovalocytes 1+ Schistocytes None seen PT 15.2 H (11.1-14.7) Seconds INR 1.2 APTT 33.7 (22.3-36.8) Seconds Sodium 136 L (137-145) mmol/L Potassium 3.3 L (3.4-5.0) mmol/L Chloride 101 (98-107) mmol/L Carbon Dioxide 28 (22-30) mmol/L Anion Gap 7 (4-12) mmol/L BUN 14 (7-17) mg/dL Creatinine 0.58 L (0.7-1.0) mg/dL Estim Creat Clear Calc 49 ml/min Estimated GFR > 60 (59 - ) Glucose 222 H (65-110) mg/dL Calcium 9.0 (8.4-10.2) mg/dL Magnesium 2.0 (1.6-2.3) mg/dL Total Bilirubin 0.4 (0.2-1.3) mg/dL AST 25 (14-36) U/L ALT 14 (6-35) U/L Alkaline Phosphatase 99 (38-126) U/L Troponin I < 0.012 (0.000-0.034) ng/mL Total Protein 7.2 (6.3-8.2) g/dL Albumin 4.1 (3.5-5.1) g/dL Imaging Data Radiologist's impression: ITS Impressions Head CT 08/07/24 15:15 IMPRESSION: 1. No fracture or acute intracranial process. 2. Age-related changes including moderate diffuse volume loss and moderate scattered white matter hypoattenuation consistent with chronic small vessel ischemic disease. Chest X-Ray 08/07/24 15:26 IMPRESSION: No acute cardiopulmonary pathology. Cervical Spine CT 08/07/24 15:50 IMPRESSION: No acute osseous abnormality cervical spine. Multilevel degenerative disc disease. ECG Data EKG #1: Attestation: I personally reviewed and interpreted this ECG as follows: ECG completion date: 08/07/24 ECG completion time: 13:55 Interpretation: lateral ST abnormalities EKG Interpretation: normal rate and sinus rhythm Discharge Plan Discharge Clinical Impression: Syncope, Hypokalemia Patient Disposition: Still a Patient Condition: Stable
--- OUTSIDE RECORDS SUMMARY | 2024-08-07 16:07 | XMS_ITS | Clinical Summary ---
Author Organization [facility] Address [address] [place] [address] Care Team Providers Care Corrections Unit Supervisor Name Role Phone David Pruitt MD Primary Care Provider Aram Oro MD Unavailable [phone] David Fried MD Unavailable [phone] Chema Foreman MD Unavailable [phone] Allergies Active Allergy Reactions Criticality Noted Date Comments Atorvastatin Muscle pain Medium 01/01/2019 Myalgias on atorvastatin 20 mg Celecoxib Hives High 04/20/2024 Flecainide Other (See comments) Low 01/21/2021 QT prolongation House Dust Iodinated Contrast Media Other (See comments) Medium 06/30/2017 Dizzy, hot, nauseated, no hives or wheezing. Metformin Chest tightness,Other (See comments) Medium 06/30/2017 Chest pain [place]st[place]-3 Fatty Acids Rash,Hives High 01/27/2018 Prednisone Other [...] tabletIndications: Mixed hyperlipidemia,Cor onary artery disease involving [place] coronary artery of [place] heart without angina pectoris Take 1 tablet [...] from 03/11/2024:Stage IA(cT1c, cN0, cM0, G1, ER+, AK+, HER2: Equivocal) - Signed by David Fried MD on 03/11/2024 Pathologic stage from 07/19/2024: pT1c, cN0, cM0, G2, ER+, AK+, HER2- - Signed by David Fried MD [...] 01/27/2018 Assessment & Plan (01/27/2018 2:58 PM ESTATE PLANNING ATTORNEY): Reviewed chart and discussed blood work with patient. She denies any GI sx and says EGD 2 yrs ago and [id number] this year. Discussed posssibility of gi blood loss and offered EGD/Colonoscopy. At this time she declines and promises to follow blood counts with PMD promising to call if changes her mind Coronary artery disease invo lving [facility] coronary artery of [facility] heart without angina pectoris 01/26/2018 Mixed hyperlipidemia [...] Team Description 08/04/2024 2:00 PM CDT Treatment [facility] Office Building 2 Radiation Oncology [address] [place] [address] 11710 David Fried MD 08/04/[address] [facility] Office Building 2 Radiation Oncology [address] [place] [address] 36070 David Fried MD 08/04/2024 Orders Only RAD ONC TREATMENTS Miscellaneous, Not In File 08/04/[address] [facility] Building 2 Radiation Oncology [address] [place] [address] 21191 David Fried MD 08/04/2024 Orders Only RAD ONC TREATMENTS Miscellaneous, Not In File 08/03/2024 2:00 PM CDT Treatment [facility] Building 2 Radiation Oncology [address] [place] [address] 49683 08/03/2024 Orders Only RAD ONC TREATMENTS Miscellaneous, Not In File 08/02/2024 1:[address] [facility] 2 Radiation Oncology [address] [place] [address] 08/02/2024 Orders Only RAD ONC TREATMENTS Miscellaneous, Not In File 08/01/2024 1:30 PM CDT Treatment [facility] Building 2 Radiation Oncology [address] [place] [address] 24851 08/01/2024 Orders Only RAD ONC TREATMENTS Miscellaneous, Not In File 07/31/2024 2:17 PM CDT - 07/31/2024 11:59 PM CDT Hospital Encounter [facility] Respiratory Therapy [address] [place] [id number] Colt Landis MD Asthma-COPD overlap syndrome (HCC) Discharge Disposition: Discharge to home or self care 07/31/2024 1:30 PM CDT Treatment [facility] Building 2 Radiation Oncology [address] [place] [address] David Fried MD 07/31/2024 1:15 PM CDT Treatment [facility] Building 2 Radiation Oncology [address] [place] [address] 82074 David Fried MD 07/31/2024 Orders Only RAD ONC TREATMENTS Miscellaneous, Not In File 07/28/2024 5:25 PM CDT Treatment [facility] Building 2 Radiation Oncology [address] [place] [address] 07/27/2024 7:25 PM CDT Treatment [facility] Building 2 Radiation Oncology [address] [place] [address] 07/19/2024 1:30 PM CDT Treatment [facility] Building 2 Radiation Oncology [address] [place] [address] 47509 David Fried MD 07/19/2024 1:00 PM CDT Office Visit [facility] Building 2 Radiation Oncology [address] [place] [address] 58608 David Fried MD Malignant neoplasm of upper-outer quadrant of right breast in female, estrogen receptor positive (HCC) (Primary Dx) 07/05/2024 2:45 PM CDT Office Visit [facility] Medical Group Pulmonary [address] [place] [phone] 46 Colt Landis MD Asthma-COPD overlap syndrome (HCC) (Primary Dx); Nocturnal hypoxia; Paroxysmal atrial fibrillation (HCC); Gastroesophageal reflux disease without esophagitis; Primary hypertension 06/12/2024 4:00 PM CDT Office Visit [facility] Oncology [address] [place] [address] [address] [place] [address] Lobo Driscoll DO Malignant neoplasm of upper-outer quadrant of right breast in female, estrogen receptor positive (HCC) (Primary Dx) 06/02/2024 7:31 PM CDT - 06/09/2024 1:11 PM CDT Hospital Encounter [place] [address] [address] [place] [address] Reynaldo Cuevas DO Sada, Kahmalia-Kalee Conceptia, MD [...] CDT - 05/30/2024 11:45 PM CDT Emergency [facility] Emergency Department [address] [place] [address] Forrest Mitchell Jr., MD Hematoma of right breast (Primary Dx); Anticoagulation adequate with anticoagulant therapy; History of atrial fibrillation; History of right breast cancer Discharge Disposition: Discharge to home or self care 05/18/2024 Telephone [facility] Medical [facility] Cardiology [address] [place] [phone] Chema Foreman MD 05/04/2024 6:59 PM ESTATE PLANNING ATTORNEY - 05/07/2024 11:45 AM CDT Hospital Encounter [place] [address] [place] [phone] Katty Armenta MD Singh, Anjanya Devendra, MD [...] Medical History Date Comments DM (diabetes mellitus) ([facility]) His tory of diabetes mellitus - (Added by TW Conv) Hypertension History of hyper tension - (Added by TW Conv) COPD (chronic obstructive pu lmonary disease) ([facility]) History of chronic obstructi ve [...] - (Added by TW Conv) Rheumatoid arthritis ([facility]) 2020 S/P balloon dilatation of es ophageal stricture Mixed diabetic hyperlipidemi a associated with type 2 diabetes mellitus (CMS/HCC) ([facility]) 06/30/2017 Iron deficiency anemia 01/27/2018 Paroxysmal atrial flutter ([facility]) 01/21/2021 Malignant neoplasm of upper- outer quadrant of right breast in female, estrogen receptor positive ([facility]) 03/11/2024 Vitiligo Lung disease Allergic [...] drink = 0.6 oz pur e alcohol) [facility] Utilities Answer Date Recorded In the past 12 months has [employer] electric, gas, oil, or water company threatened [...] often do you attend chur ch or anabaptist services? Never 06/05/2024 Do you belong to [...] any time in the past 12 m [facility], were you homeless or living in a penitentiary (including now)? No 06/05/2024 Personal Safety Answer Date Recorded Have you ever been in or are you currently in a harmful physical or emotional relationship or is someone making you feel afraid or unsafe? Denies 06/02/2024 Comments No Sex and Gender Information Value Date Recorded Sex Assigned at Not on file Legal Sex Female 12:20 AM ESTATE PLANNING ATTORNEY Gender Identity Female 12/31/2023 2:40 PM CDT [...] 03/09/2019, 12/13/2018 Medical Devices Implanted Type Area [employer] Worker Device Identifier Shelf Expiration Date Model / Serial / Lot [employer] [place] 20ga 5cm Reposition J [employer]ve [employer] Andrew Stabilizer [id number] - [id number] Implanted:Qty: 1 on 04/07/2024 by Eleazar Gavin MD at [facility] Right: Breast [employer] [id number] 01/12/2029 [id number] / / [id number] Procedures Procedure Name Priority Date/Time Associated Diagnosis [...] GLUCOSE DEVICE Routine 05/07/2024 1 2: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 HEMOGLOBIN A1C Routine 03/31/2024 3:12 PM ESTATE PLANNING ATTORNEY Pre-op testing Diabetes mellitus due to underlying condition with complication (HCC) POCT LIPID PANEL Routine 08/19/2021 5:01 PM CDT Mixed diabetic hyperlipidemia associated with type 2 diabetes mellitus (HCC) from Last 3 Months or Most Recently Relevant to Health Maintenance Results * RAD ONC ARIA COURSE SUMMARY (08/04/2024 4:18 PM CDT) Pathologist [facility] Course Name [id number] ARIA Course Plan [...] ORD ERABLES Final Result Performing Organization Address City/[facility]/ZIP Co de Phone Number ALANNA * RAD [...] ORD ERABLES Final Result Performing Organization Address [facility] Co de Phone [...] ORD ERABLES Final Result Performing Organization Address [facility] de Phone Number ARIA * RAD ONC [...] FVC POST 2.30 1.52 - 2.87 L [facility] FEV1 POST 1.31 1.16 - 2.15 L [facility] [id number] 56.88(A) 62.59 - 90.37 % [facility] VDK70-50% POST 0.75 0.58 - 2.64 L/s [facility] PEF POST 2.74(A) 3.39 - 6.35 L/s [facility] DLCOc SB 9.13(A) 11.60 - 23.07 ml/(min*mm Hg) [facility] DLCO/VA PRE 3.29 2.42 - 5.70 ml/(min*mm Hg*L) [facility] VA 2.78(A) 4.12 - 4.12 L [facility] TLC PRE 4.75 3.28 - 5.26 L [facility] VC PRE 2.11 1.21 - 2.59 L [facility] IC PRE 1.48(A) 1.45 - 1.45 L [facility] FRC PL PRE 3.27 1.67 - 3.32 L [facility] ERV PRE 0.63(A) 0.46 - 0.46 L [facility] RV PRE 2.64(A) 1.46 - 2.61 L [facility] VTG 3.29 L [facility] RAW PRE 5.76(A) 3.06 - 3.06 cmH2O*s/L [facility] FVC PRE 1.84 1.52 - 2.87 L [facility] FEV1 PRE 1.12(A) 1.16 - 2.15 L [facility] [id number] 60.63(A) 62.59 - 90.37 % [facility] LMA20-64% PRE 0.66 0.58 - 2.64 L/s [facility] PEF PRE 2.16(A) 3.39 - 6.35 L/s [facility] Anatomical Region Laterality Modality PFT 07/31/2024 2:18 [...] ARIA SESSION SUMMARY (07/31/2024 1:41 PM CDT) [facility] Course Name [id number] ARIA Course Plan [...] * POCT glucose (06/09/2024 8:36 AM CDT) [facility] Glucose, POC 108 70 - 199 mg/dL Comment:Testing performed by : [facility], [address] [place] [address]., [address] Blood 06/09/2024 8:36 AM CDT 06/09/2024 8:36 AM CDT us Shaw Mitchell MD LAB POCT ORDERABLES - DEVICE Final Result KISHA [address] [facility] Department [place] [address] * eGFR (06/09/2024 5:56 AM CDT) [facility] eGFR >90 >=60 mL/min/1. 73 m2 Comment: [...] was last reviewed 2020. Testing performed by: [address] [address] Blood 06/09/2024 5:56 AM CDT 06/09/2024 6:12 AM CDT us Colt Landis MD LAB BLOOD ORDERABLES F inal Result KISHA [address] [facility] Department [place] [address] * (ABNORMAL) Comprehensive metabolic panel (06/09/2024 5:56 AM CDT) Sodium 139 135 - 145 mmol/L Comment:Testing performed by : [address] [address] Potassium, pl 3.9 3.3 - 4.9 mmol/L KISHA TOWNSEND Comment:Testing performed by : [address] [address] Chloride 104 97 - 110 mmol/L KISHA TOWNSEND Comment:Testing performed by : [address] [address] CO2 28 22 - 32 mmol/L KISHA TOWNSEND Comment:Testing performed by : [address] [address] Anion gap 7 2 - 15 mmol/L [facility] Comment:Testing performed by : [address] [address] BUN 19 6 - 25 mg/dL [facility] Comment:Testing performed by : [address] [address] Creatinine 0.40(L) 0.60 - 1.10 mg/dL [facility] Comment:Testing performed by : [address] [address] Glucose 93 70 - 199 mg/dL [facility] Comment: Delta - Results Reviewed Interpretive Data [...] was last revised 2022. Testing performed by: [address] [address] Calcium 7.9(L) 8.5 - 10.3 mg/dL [facility] Comment:Testing performed by : [address] [address] Bilirubin, total 0.3 0.1 - 1.2 mg/dL [facility] Comment:Testing performed by : [address] [address] Protein, pl 5.3(L) 6.5 - 8.5 g/dL [facility] Comment:Testing performed by : [address] [address] Albumin 3.0(L) 3.5 - 5.0 g/dL [facility] Comment:Testing performed by : [address] [address] Alk phos 78 40 - 130 Units/L [facility] Comment:Testing performed by : [address] [address]154 ALT 14 7 - 45 Units/L KISHA Comment:Testing performed by : [address] [address] AST 12 10 - 45 Units/L KISHA Comment:Testing performed by : [address] [address]658 Blood 06/09/2024 5:56 AM CDT 06/09/2024 6:12 AM CDT Colt Landis MD LAB BLOOD ORDERABLES F inal Result Performing Organization Address [facility] Co de Phone Number [address] [place] [address] * POCT glucose (06/08/2024 8:25 PM CDT) [facility] Glucose, POC 185 70 - 199 mg/dL Comment:Testing performed by : [address] [address] Blood 06/08/2024 8:25 PM CDT 06/08/2024 8:25 PM CDT us Shaw Mitchell MD LAB POCT ORDERABLES - DEVICE Final Result Performing Organization Address [facility] Co de Phone Number [address] [address] * eGFR (06/08/2024 5:51 PM CDT) [facility] eGFR >90 >=60 mL/min/1. 73 m2 Comment: [...] was last reviewed 2020. Testing performed by: [address] [address] Blood 06/08/2024 5:51 PM CDT 06/08/2024 5:58 PM CDT us Shaw Mitchell MD LAB BLOOD ORDERABLES Final R esult K[facility] Department [place] [address] * (ABNORMAL) Basic metabolic panel (06/08/2024 5:51 PM CDT) Sodium 136 135 - 145 mmol/L Comment:Testing performed by : [address] [address] Potassium, pl 4.1 3.3 - 4.9 mmol/L KISHA Comment: Delta - Results Reviewed Testing performed by: [address] [address] Chloride 101 97 - 110 mmol/L KISHA Comment:Testing performed by : [address] [address] CO2 26 22 - 32 mmol/L KISHA Comment:Testing performed by : [address] [address] Anion gap 9 2 - 15 mmol/L KISHA Comment:Testing performed by : [address] [address] BUN 23 6 - 25 mg/dL KISHA Comment:Testing performed by : [address] [address] Creatinine 0.53(L) 0.60 - 1.10 mg/dL KISHA Comment:Testing performed by : [address] [address] Glucose 247(H) 70 - 199 mg/dL KISHA [...] was last revised 2022. Testing performed by: [address] [address] Calcium 8.5 8.5 - 10.3 mg/dL KISHA Comment:Testing performed by : [address] [address] Blood 06/08/2024 5:51 PM CDT 06/08/2024 5:58 PM CDT us Shaw Mitchell MD LAB BLOOD ORDERABLES Final R esult Performing Organization Address [facility] Co de Phone Number [address] [place] [facility] [place] [address] * (ABNORMAL) POCT glucose (06/08/2024 5:09 PM CDT) [facility] Glucose, POC 233(H) 70 - 199 mg/dL Comment:Testing performed by : [address] [address] Blood 06/08/2024 5:09 PM CDT 06/08/2024 5:09 PM CDT Shaw Mitchell MD LAB POCT ORDERABLES - DEVICE Final Result Performing Organization Address City/[facility]/ZIP Co de Phone Number DANNY[address] [place] [address] * (ABNORMAL) POCT glucose (06/08/2024 12:12 PM CDT) [facility] Glucose, POC 305(H) 70 - 199 mg/dL Comment:Testing performed by : [address] [address] Blood 06/08/2024 12:1 2 PM CDT 06/08/2024 12:12 PM CDT Shaw Mitchell MD LAB POCT ORDERABLES - DEVICE Final Result Performing Organization Address [facility] de Phone Number KISHA [address] [place] [address] * eGFR (06/08/2024 10:29 AM CDT) [facility] eGFR >90 >=60 mL/min/1. 73 m2 Comment: [...] was last reviewed 2020. Testing performed by: [facility], [address] [place] [address]., [address] Blood 06/08/2024 10:2 9 AM CDT 06/08/2024 10:33 AM CDT Shaw Mitchell MD LAB BLOOD ORDERABLES Final R esult Performing Organization Address City/[facility]/ZIP Co de Phone Number KISHA [address] Department [place] [address] * (ABNORMAL) Differential, auto (06/08/2024 10:29 AM CDT) Neutrophil abs 8.02(H) 1.50 - 6.50 K/cumm Comment:Testing performed by : [address] [address] Imm gran abs 0.08 0.00 - 0.10 K/cumm KISHA Comment:Testing performed by : [address], [place]., [address] Lymphocyte abs 2.42 0.80 - 3.30 K/cumm KISHA Comment:Testing performed by : [address] [address] Monocyte abs 1.68(H) 0.20 - 0.80 K/cumm KISHA Comment:Testing performed by : [address] [address] Eosinophil abs 0.00 0.00 - 0.50 K/cumm KISHA Comment:Testing performed by : [address] [address] Basophil abs 0.01 0.00 - 0.10 K/cumm [facility] Comment:Testing performed by : [address] [address] Neutrophil pct 65.6 % CERELVIN Comment: Interpretive Data Percent cell count reference ranges are not reported, since discordance with absolute values may lead to misinterpretation of CBC data. Current Interpretive Data was last revised on 2017. Testing performed by: [address] [address] Imm gran pct 0.7 % CERELVIN Comment: Interpretive Data Percent cell count reference ranges are not reported, since discordance with absolute values may lead to misinterpretation of CBC data. Current Interpretive Data was last revised on 2017. Testing performed by: [address] [address] Lymphocyte pct 19.8 % CERELVIN Comment: Interpretive Data Percent cell count reference ranges are not reported, since discordance with absolute values may lead to misinterpretation of CBC data. Current Interpretive Data was last revised on 2017. Testing performed by: [address] [address] Monocyte pct 13.8 % KISHA Comment: Interpretive Data Percent cell count reference ranges are not reported, since discordance with absolute values may lead to misinterpretation of CBC data. Current Interpretive Data was last revised on 2017. Testing performed by: [address] [address] Eosinophil pct 0.0 % KISHA Comment: Interpretive Data Percent cell count reference ranges are not reported, since discordance with absolute values may lead to misinterpretation of CBC data. Current Interpretive Data was last revised on 2017. Testing performed by: [address] [address] Basophil pct 0.1 % KISHA Comment: Interpretive Data Percent cell count reference ranges are not reported, since discordance with absolute values may lead to misinterpretation of CBC data. Current Interpretive Data was last revised on 2017. Testing performed by: [address] [address] Blood 06/08/2024 10:2 9 AM CDT 06/08/2024 10:33 AM CDT us Shaw Mtichell MD LAB BLOOD ORDERABLES Final R esult [facility] [address] [facility] Department [place] [address] * (ABNORMAL) CBC with auto differential (06/08/2024 10:29 AM CDT) WBC 12.21(H) 3.80 - 9.90 K/cumm Comment:Testing performed by : [address] [address] Hgb 9.2(L) 11.9 - 15.5 g/dL KISHA Comment:Testing performed by : [address] [address] Hct 28.7(L) 35.6 - 45.5 % KISHA Comment:Testing performed by : [address], [address] Plt 349 150 - 400 K/cumm KISHA Comment:Testing performed by : [address] [address] MPV 9.5 9.1 - 12.3 fL KISHA Comment:Testing performed by : [address], [address] RBC 3.27(L) 3.90 - 5.20 M/cumm KISHA Comment:Testing performed by : [address], [address] MCV 87.8 81.3 - 96.4 fL KISHA Comment:Testing performed by : [address] [address] MCH 28.1 27.1 - 33.3 pg KISHA Comment:Testing performed by : [address], [address] MCHC 32.1(L) 32.3 - 35.7 g/dL KISHA Comment:Testing performed by : [address], [address] RDW CV 16.4(H) 11.1 - 14.9 % KISHA Comment:Testing performed by : [address], [address] RDW SD 51.7(H) 35.7 - 48.1 fL KISHA Comment:Testing performed by : [address], [address] NRBC abs 0.00 0.00 - 0.01 K/cumm KISHA Comment:Testing performed by : [address], [address] Blood 06/08/2024 10:2 9 AM CDT 06/08/2024 10:33 AM CDT us Shaw Mitchell MD LAB BLOOD ORDERABLES Final R esult KISHA TOWNSEND [address] Department [place] [address] * Magnesium (06/08/2024 10:29 AM CDT) Pathologist [facility] Magnesium 2.3 1.4 - 2.5 mg/dL Comment:Testing performed by : [address] [address] Blood 06/08/2024 10:2 9 AM CDT 06/08/2024 10:33 AM CDT us Shaw Mitchell MD LAB BLOOD ORDERABLES Final R esult KISHA [address] [facility] [place] [address] * (ABNORMAL) Comprehensive metabolic panel (06/08/2024 10:29 AM CDT) [facility] Sodium 137 135 - 145 mmol/L Comment:Testing performed by : [address] [address] Potassium, pl 3.0(L) 3.3 - 4.9 mmol/L KISHA Comment:Testing performed by : [address] [address] Chloride 100 97 - 110 mmol/L KISHA Comment:Testing performed by : [address] [address] CO2 27 22 - 32 mmol/L KISHA Comment:Testing performed by : [address] [address] Anion gap 10 2 - 15 mmol/L KISHA Comment:Testing performed by : [address] [address] BUN 21 6 - 25 mg/dL KISHA Comment:Testing performed by : [address] [address] Creatinine 0.53(L) 0.60 - 1.10 mg/dL KISHA Comment:Testing performed by : [address] [address] Glucose 159 70 - 199 mg/dL KISHA [...] was last revised 2022. Testing performed by: [address] [address] Calcium 8.4(L) 8.5 - 10.3 mg/dL KISHA Comment:Testing performed by : [address] [address] Bilirubin, total 0.2 0.1 - 1.2 mg/dL KISHA Comment:Testing performed by : [address] [address] Protein, pl 5.9(L) 6.5 - 8.5 g/dL KISHA Comment:Testing performed by : [address] [address] Albumin 3.5 3.5 - 5.0 g/dL KISHA Comment:Testing performed by : [address] [address] Alk phos 85 40 - 130 Units/L K[facility]HA Comment:Testing performed by : [address] [address] ALT 19 7 - 45 Units/L KISHA Comment:Testing performed by : [address] [address] AST 21 10 - 45 Units/L KISHA Comment:Testing performed by : [address] [address] Blood 06/08/2024 10:2 9 AM CDT 06/08/2024 10:33 AM CDT Shaw Mitchell MD LAB BLOOD ORDERABLES Final R esult Performing Organization Address [facility] Co de Phone Number KISHA [address] [place] [address] * POCT glucose (06/08/2024 9:39 AM CDT) [facility] Glucose, POC 101 70 - 199 mg/dL Comment:Testing performed by : [address] [address] Blood 06/08/2024 9:39 AM CDT 06/08/2024 9:39 AM CDT Shaw Mitchell MD LAB POCT ORDERABLES - DEVICE Final Result Performing Organization Address [facility] Co de Phone Number DANNY[address] [place] [address] * POCT glucose (06/08/2024 8:17 AM CDT) [facility] Glucose, POC 72 70 - 199 mg/dL Comment:Testing performed by : [facility] [facility], [address] [place] [address]., [address] Blood 06/08/2024 8:17 AM CDT 06/08/2024 8:17 AM CDT us Shaw Mitchell MD LAB POCT ORDERABLES - DEVICE Final Result Performing Organization Address [facility] Co de Phone Number DANNY[address] [place] [address] * eGFR (06/08/2024 5:07 AM CDT) [facility] eGFR >90 >=60 mL/min/1. 73 m2 Comment: [...] was last reviewed 2020. Testing performed by: [address] [address] Blood 06/08/2024 5:07 AM CDT 06/08/2024 5:27 AM CDT Colt Landis MD LAB BLOOD ORDERABLES F inal Result [facility] Department [place] [address] * (ABNORMAL) Comprehensive metabolic panel (06/08/2024 5:07 AM CDT) Sodium 138 135 - 145 mmol/L Comment:Testing performed by : [address] [address] Potassium, pl 3.0(L) 3.3 - 4.9 mmol/L KISHA Comment:Testing performed by : [address] [address] Chloride 101 97 - 110 mmol/L KISHA Comment:Testing performed by : [address] [address] CO2 28 22 - 32 mmol/L KISHA Comment:Testing performed by : [address] [address] Anion gap 9 2 - 15 mmol/L KISHA Comment:Testing performed by : [address] [address] BUN 23 6 - 25 mg/dL KISHA Comment:Testing performed by : [address] [address] Creatinine 0.49(L) 0.60 - 1.10 mg/dL KISHA Comment:Testing performed by : [address] [address] Glucose 98 70 - 199 mg/dL KISHA [...] was last revised 2022. Testing performed by: [address] [address] Calcium 8.4(L) 8.5 - 10.3 mg/dL [facility] Comment:Testing performed by : [address] [address] Bilirubin, total 0.2 0.1 - 1.2 mg/dL [facility] Comment:Testing performed by : [address] [address] Protein, pl 5.8(L) 6.5 - 8.5 g/dL [facility] Comment:Testing performed by : [address] [address] Albumin 3.4(L) 3.5 - 5.0 g/dL [facility] Comment:Testing performed by : [address] [address] Alk phos 95 40 - 130 Units/L [facility] Comment:Testing performed by : [address] [address] ALT 19 7 - 45 Units/L KISHA Comment:Testing performed by : [address] [address] AST 20 10 - 45 Units/L KISHA Comment:Testing performed by : [address] [address] Blood 06/08/2024 5:07 AM CDT 06/08/2024 5:27 AM CDT us Colt Landis MD LAB BLOOD ORDERABLES F inal Result Performing Organization Address City/[facility]/ZIP Co de Phone Number [address] [place] [address] * (ABNORMAL) POCT glucose (06/08/2024 12:56 AM CDT) Glucose, POC 217(H) 70 - 199 mg/dL Comment:Testing performed by : [address] [address] Blood 06/08/2024 12:5 6 AM CDT 06/08/2024 12:56 AM CDT us Shaw Mitchell MD LAB POCT ORDERABLES - DEVICE Final Result Performing Organization Address [facility] Co de Phone Number [address] [place] [address] * POCT glucose (06/07/2024 10:05 PM CDT) Glucose, POC 170 70 - 199 mg/dL Comment:Testing performed by : [address] [address] Blood 06/07/2024 10:0 5 PM CDT 06/07/2024 10:05 PM CDT us Shaw Mitchell MD LAB POCT ORDERABLES - DEVICE Final Result Performing Organization Address [facility] Co de Phone Number [address] [address] * POCT glucose (06/07/2024 9:05 PM CDT) Glucose, POC 89 70 - 199 mg/dL Comment:Testing performed by : [address] [address] Glucose comment 1 RN/MD Notified KISHA Comment:Testing performed by : [address] [address] Blood 06/07/2024 9:05 PM CDT 06/07/2024 9:05 PM CDT Shaw Mitchell MD LAB POCT ORDERABLES - DEVICE Final Result Performing Organization Address [facility] Co de Phone Number DANNY[address] [address] * (ABNORMAL) POCT glucose (06/07/2024 8:29 PM CDT) Glucose, POC 65(L) 70 - 199 mg/dL Comment:Testing performed by : [address] [address] Glucose comment 1 RN/MD Notified KISHA Comment:Testing performed by : [address] [address] Blood 06/07/2024 8:29 PM CDT 06/07/2024 8:29 PM CDT Shaw Mitchell MD LAB POCT ORDERABLES - DEVICE Final Result Performing Organization Address [facility] de Phone Number [address] [address] * POCT glucose (06/07/2024 4:25 PM CDT) Glucose, POC 80 70 - 199 mg/dL Comment:Testing performed by : [address] [address] Glucose comment 1 RN/MD Notified KISHA Comment:Testing performed by : [address] [address] Blood 06/07/2024 4:25 PM CDT 06/07/2024 4:25 PM CDT Shaw Mitchell MD LAB POCT ORDERABLES - DEVICE Final Result Performing Organization Address City/[facility] Co de Phone Number KISHA [address] [facility] [place] [address] * (ABNORMAL) POCT glucose (06/07/2024 11:34 AM CDT) Glucose, POC 298(H) 70 - 199 mg/dL Comment:Testing performed by : [facility], [address] [place] [address], [place]., [address] Blood 06/07/2024 11:3 4 AM CDT 06/07/2024 11:34 AM CDT Shaw Mitchell MD LAB POCT ORDERABLES - DEVICE Final Result Performing Organization Address [facility] Co de Phone Number KISHA [address] [place] [address] * XR Chest 1 View (06/07/2024 8:50 [...] Amy Gomez M.D. FT: FT Report ID: [id number] Reading Location: [id number] Procedure Note Amy Wynne MD - 06/07/2024 [...] Amy Gomez M.D. FT: FT Report ID: [id number] Reading Location: [place] [address] us Colt Landis MD IMG XR PROCEDURES Radha l Result * (ABNORMAL) POCT glucose (06/07/2024 8:42 AM CDT) [facility] Glucose, POC 207(H) 70 - 199 mg/dL Comment:Testing performed by : [address] [address] Glucose comment 1 Will Repeat Test KISHA Comment:Testing performed by : [address] [address] Glucose comment 2 RN/MD Notified KISHA TOWNSEND Comment:Testing performed by : [address] [address] Blood 06/07/2024 8:42 AM CDT 06/07/2024 8:42 AM CDT us Shaw Mitchell MD LAB POCT ORDERABLES - DEVICE Final Result KISHA TOWNSEND [address] [facility] [place] [address] * eGFR (06/07/2024 5:38 AM [...] was last reviewed 2020. Testing performed by: [address] [address] Blood 06/07/2024 5:38 AM CDT 06/07/2024 6:02 AM CDT Colt Landis MD LAB BLOOD ORDERABLES F inal Result [facility] [address] [facility] [place] [address] * (ABNORMAL) Differential, auto (06/07/2024 5:38 AM CDT) Pathologist [facility] Neutrophil abs 8.06(H) 1.50 - 6.50 K/cumm Comment:Testing performed by : [address] [address] Imm gran abs 0.08 0.00 - 0.10 K/cumm KISHA TOWNSEND Comment:Testing performed by : [address] [address] Lymphocyte abs 1.18 0.80 - 3.30 K/cumm KISHA Comment:Testing performed by : [address] [address] Monocyte abs 1.19(H) 0.20 - 0.80 K/cumm KISHA Comment:Testing performed by : [address] [address] Eosinophil abs 0.00 0.00 - 0.50 K/cumm [facility] Comment:Testing performed by : [address], [place]., [address] Basophil abs 0.01 0.00 - 0.10 K/cumm [facility] Comment:Testing performed by : [address] [address] Neutrophil pct 76.6 % [facility] Comment: Interpretive Data Percent cell count reference ranges are not reported, since discordance with absolute values may lead to misinterpretation of CBC data. Current Interpretive Data was last revised on 2017. Testing performed by: [address] [address] Imm gran pct 0.8 % [facility] Comment: Interpretive Data Percent cell count reference ranges are not reported, since discordance with absolute values may lead to misinterpretation of CBC data. Current Interpretive Data was last revised on 2017. Testing performed by: [address] [address] Lymphocyte pct 11.2 % [facility] Comment: Interpretive Data Percent cell count reference ranges are not reported, since discordance with absolute values may lead to misinterpretation of CBC data. Current Interpretive Data was last revised on 2017. Testing performed by: [address] [address] Monocyte pct 11.3 % [facility] Comment: Interpretive Data Percent cell count reference ranges are not reported, since discordance with absolute values may lead to misinterpretation of CBC data. Current Interpretive Data was last revised on 2017. Testing performed by: [address] [address] Eosinophil pct 0.0 % [facility] Comment: Interpretive Data Percent cell count reference ranges are not reported, since discordance with absolute values may lead to misinterpretation of CBC data. Current Interpretive Data was last revised on 2017. Testing performed by: [facility], [address] [place] [address]., [address] Basophil pct 0.1 % KISHA TOWNSEND Comment: Interpretive Data Percent cell count reference ranges are not reported, since discordance with absolute values may lead to misinterpretation of CBC data. Current Interpretive Data was last revised on 2017. Testing performed by: [facility], [address] [place] [address]., [address] Blood 06/07/2024 5:38 AM CDT 06/07/2024 6:05 AM CDT us Colt Landis MD LAB BLOOD ORDERABLES F inal Result KISHA TOWNSEND [address] [facility] Department [place] [address] * Pro B-type natriuretic peptide (06/07/2024 5:38 [...] Last Revised Date: 2017. Testing performed by: [address] [address] Blood 06/07/2024 5:38 AM CDT 06/07/2024 6:02 AM CDT us Colt Landis MD LAB BLOOD ORDERABLES F inal Result KISHA [address] [facility] Department [place] [address] * (ABNORMAL) CBC with auto differential (06/07/2024 5:38 AM CDT) WBC 10.52(H) 3.80 - 9.90 K/cumm Comment:Testing performed by : [address] [address] Hgb 8.4(L) 11.9 - 15.5 g/dL KISHA TOWNSEND Comment:Testing performed by : [address] [address] Hct 26.4(L) 35.6 - 45.5 % KISHA TOWNSEND Comment:Testing performed by : [address] [address] Plt 351 150 - 400 K/cumm KISHA TOWNSEND Comment:Testing performed by : [address] [address] MPV 9.7 9.1 - 12.3 fL KISHA TOWNSEND Comment:Testing performed by : [address] [address] RBC 3.06(L) 3.90 - 5.20 M/cumm KISHA TOWNSEND Comment:Testing performed by : [address] [address] MCV 86.3 81.3 - 96.4 fL KISHA TOWNSEND Comment:Testing performed by : [address], [address] MCH 27.5 27.1 - 33.3 pg KISHA TOWNSEND Comment:Testing performed by : [address] [address] MCHC 31.8(L) 32.3 - 35.7 g/dL KISHA TOWNSEND Comment:Testing performed by : [address], [address] RDW CV 16.1(H) 11.1 - 14.9 % KISHA Comment:Testing performed by : [address], [address] RDW SD 49.4(H) 35.7 - 48.1 fL KISHA Comment:Testing performed by : [address] [address] NRBC abs 0.00 0.00 - 0.01 K/cumm KISHA Comment:Testing performed by : [address], [address] Blood 06/07/2024 5:38 AM CDT 06/07/2024 6:05 AM CDT Colt Landis MD LAB BLOOD ORDERABLES F inal Result Performing Organization Address [facility] Co de Phone Number [place] [phone] [facility] Department [place] [address] * CRP (acute phase) (06/07/2024 5:38 AM CDT) CRP 3.4 <=10.0 mg/L Comment:Testing performed by : [address] [address] Blood 06/07/2024 5:38 AM CDT 06/07/2024 6:02 AM CDT Colt Landis MD LAB BLOOD ORDERABLES F inal Result KISHA [address] [facility] Department [place] [address] * (ABNORMAL) Comprehensive metabolic panel (06/07/2024 5:38 AM CDT) Sodium 138 135 - 145 mmol/L Comment:Testing performed by : [address] [address] Potassium, pl 3.4 3.3 - 4.9 mmol/L KISHA Comment:Testing performed by : [address] [address] Chloride 99 97 - 110 mmol/L KISHA Comment:Testing performed by : [address] [address] CO2 27 22 - 32 mmol/L KISHA Comment:Testing performed by : [address], [place]., [address] Anion gap 12 2 - 15 mmol/L KISHA Comment:Testing performed by : [address] [address] BUN 31(H) 6 - 25 mg/dL KISHA Comment:Testing performed by : [address] [address] Creatinine 0.60 0.60 - 1.10 mg/dL KISHA Comment:Testing performed by : [address] [address] Glucose 242(H) 70 - 199 mg/dL KISHA [...] was last revised 2022. Testing performed by: [address] [address] Calcium 8.1(L) 8.5 - 10.3 mg/dL KISHA Comment:Testing performed by : [address] [address] Bilirubin, total 0.2 0.1 - 1.2 mg/dL KISHA Comment:Testing performed by : [address], [place]., [address] Protein, pl 5.8(L) 6.5 - 8.5 g/dL KISHA Comment:Testing performed by : [address], [place]., [address] Albumin 3.3(L) 3.5 - 5.0 g/dL KISHA Comment:Testing performed by : [address] [address] Alk phos 110 40 - 130 Units/L KISHA Comment:Testing performed by : [address] [address] ALT 13 7 - 45 Units/L KISHA Comment:Testing performed by : [address] [address] AST 14 10 - 45 Units/L [facility] Comment:Testing performed by : [address] [address] Blood 06/07/2024 5:38 AM CDT 06/07/2024 6:02 AM CDT Colt Landis MD LAB BLOOD ORDERABLES F inal Result [facility] [address] [facility] Department [place] [address] * (ABNORMAL) POCT glucose (06/06/2024 8:17 PM CDT) [facility] Glucose, POC 338(H) 70 - 199 mg/dL Comment:Testing performed by : [address] [address] Blood 06/06/2024 8:17 PM CDT 06/06/2024 8:17 PM CDT Shaw Mitchell MD LAB POCT ORDERABLES - DEVICE Final Result Performing Organization Address [facility] de Phone Number KISHA [address] [address] * (ABNORMAL) POCT glucose (06/06/2024 6:45 PM CDT) [facility] Glucose, POC 338(H) 70 - 199 mg/dL Comment:Testing performed by : [address] [address] Glucose comment 1 RN/MD Notified KISHA Comment:Testing performed by : [address] [address] Blood 06/06/2024 6:45 PM CDT 06/06/2024 6:45 PM CDT Shaw Mitchell MD LAB POCT ORDERABLES - DEVICE Final Result Performing Organization Address [facility] de Phone Number DANNY[address] [address] * (ABNORMAL) POCT glucose (06/06/2024 4:59 PM CDT) [facility] Glucose, POC 499(C) 70 - 199 mg/dL Comment:Testing performed by : [address] [address] Glucose comment 1 RN/MD Notified KISHA Comment:Testing performed by : [address] [address] Blood 06/06/2024 4:59 PM CDT 06/06/2024 4:59 PM CDT Shaw Mitchell MD LAB POCT ORDERABLES - DEVICE Final Result Performing Organization Address [facility] Co de Phone Number DANNY[address] [address] * (ABNORMAL) POCT glucose (06/06/2024 1:42 PM CDT) Glucose, POC 548(C) 70 - 199 mg/dL Comment:Testing performed by : [address] [address] Glucose comment 1 RN/MD Notified KISHA Comment:Testing performed by : [address] [address] Blood 06/06/2024 1:42 PM CDT 06/06/2024 1:42 PM CDT Shaw Mitchell MD LAB POCT ORDERABLES - DEVICE Final Result Performing Organization Address [facility] Co de Phone Number KISHA [address] [place] [address] * (ABNORMAL) POCT glucose (06/06/2024 11:38 AM CDT) Glucose, POC >600(C) 70 - 199 mg/dL Comment:Testing performed by : [address] [address] Glucose comment 1 RN/ Notified KISHA Comment:Testing performed by : [address] [address] Blood 06/06/2024 11:3 8 AM CDT 06/06/2024 11:38 AM CDT Shaw Mitchell MD LAB POCT ORDERABLES - DEVICE Final Result Performing Organization Address [facility] Co de Phone Number DANNY[address] [place] [address] * (ABNORMAL) POCT glucose (06/06/2024 10:51 AM CDT) Glucose, POC 527(C) 70 - 199 mg/dL Comment:Testing performed by : [address] [address] Glucose comment 1 RN/MD Notified KISHA Comment:Testing performed by : [address] [place] [address] Glucose comment 2 Follow Protocol KISHA Comment:Testing performed by : [address] [address] Blood 06/06/2024 10:5 1 AM CDT 06/06/2024 10:51 AM CDT Shaw Mitchell MD LAB POCT ORDERABLES - DEVICE Final Result Performing Organization Address [facility] de Phone Number DANNY[address] [place] [address] * (ABNORMAL) POCT glucose (06/06/2024 10:50 AM CDT) [facility] Glucose, POC 548(C) 70 - 199 mg/dL Comment:Testing performed by : [address] [address] Glucose comment 1 Will Repeat Test KISHA Comment:Testing performed by : [address] [address] Blood 06/06/2024 10:5 0 AM CDT 06/06/2024 10:50 AM CDT us Shaw Mitchell MD LAB POCT ORDERABLES - DEVICE Final Result Performing Organization Address [facility] de Phone Number [address] [place] [address] * eGFR (06/06/2024 8:44 AM CDT) [facility] eGFR >90 >=60 mL/min/1. 73 m2 Comment: [...] was last reviewed 2020. Testing performed by: [address] [address] Blood 06/06/2024 8:44 AM CDT 06/06/2024 9:01 AM CDT us Shaw Mitchell MD LAB BLOOD ORDERABLES Final R esult KISHA [address] Department [place] [address] * (ABNORMAL) Differential, auto (06/06/2024 8:44 AM CDT) Neutrophil abs 13.54(H) 1.50 - 6.50 K/cumm Comment:Testing performed by : [address] [address] Imm gran abs 0.11(H) 0.00 - 0.10 K/cumm KISHA Comment:Testing performed by : [address] [address] Lymphocyte abs 0.67(L) 0.80 - 3.30 K/cumm KISHA Comment:Testing performed by : [address] [address] Monocyte abs 0.82(H) 0.20 - 0.80 K/cumm KISHA Comment:Testing performed by : [address] [address] Eosinophil abs 0.00 0.00 - 0.50 K/cumm KISHA Comment:Testing performed by : [address] [address] Basophil abs 0.01 0.00 - 0.10 K/cumm KISHA Comment:Testing performed by : [address] [address] Neutrophil pct 89.4 % KISHA Comment: Interpretive Data Percent cell count reference ranges are not reported, since discordance with absolute values may lead to misinterpretation of CBC data. Current Interpretive Data was last revised on 2017. Testing performed by: [address] [address] Imm gran pct 0.7 % KIHSA Comment: Interpretive Data Percent cell count reference ranges are not reported, since discordance with absolute values may lead to misinterpretation of CBC data. Current Interpretive Data was last revised on 2017. Testing performed by: [address] [address] Lymphocyte pct 4.4 % [facility] Comment: Interpretive Data Percent cell count reference ranges are not reported, since discordance with absolute values may lead to misinterpretation of CBC data. Current Interpretive Data was last revised on 2017. Testing performed by: [address] [address] Monocyte pct 5.4 % [facility] Comment: Interpretive Data Percent cell count reference ranges are not reported, since discordance with absolute values may lead to misinterpretation of CBC data. Current Interpretive Data was last revised on 2017. Testing performed by: [address] [address] Eosinophil pct 0.0 % [facility] Comment: Interpretive Data Percent cell count reference ranges are not reported, since discordance with absolute values may lead to misinterpretation of CBC data. Current Interpretive Data was last revised on 2017. Testing performed by: [address] [address] Basophil pct 0.1 % [facility] Comment: Interpretive Data Percent cell count reference ranges are not reported, since discordance with absolute values may lead to misinterpretation of CBC data. Current Interpretive Data was last revised on 2017. Testing performed by: [address] [address] Blood 06/06/2024 8:44 AM CDT 06/06/2024 9:01 AM CDT us Shaw Mitchell MD LAB BLOOD ORDERABLES Final R esult Performing Organization Address [facility] Co de Phone Number KISHA TOWNSEND 9[address] [facility] [place] [address] * (ABNORMAL) Iron profile w/ IBC (06/06/2024 8:44 AM CDT) Pathologist [facility] Iron 27(L) 35 - 145 mcg/dL Comment:Testing performed by : [address] [address] TIBC 290 250 - 400 mcg/dL KISHA TOWNSEND Comment:Testing performed by : [address] [address] Transferrin saturation 9(L) 20 - 50 % KISHA TOWNSEND Comment:Testing performed by : [address] [address] Blood 06/06/2024 8:44 AM CDT 06/06/2024 9:01 AM CDT us Shaw Mitchell MD LAB BLOOD ORDERABLES Final R esult Performing Organization Address [facility] Co de Phone Number KISHA TOWNSEND 12[address] [facility] Department [place] [address] * (ABNORMAL) CBC with auto differential (06/06/2024 8:44 AM CDT) Pathologist [facility] WBC 15.15(H) 3.80 - 9.90 K/cumm Comment:Testing performed by : [address] [address] Hgb 9.5(L) 11.9 - 15.5 g/dL KISHA TOWNSEND Comment:Testing performed by : [address] [address] Hct 29.6(L) 35.6 - 45.5 % KISHA TOWNSEND Comment:Testing performed by : [address] [address] Plt 389 150 - 400 K/cumm KISHA TOWNSEND Comment:Testing performed by : [address] [address] MPV 9.2 9.1 - 12.3 fL KISHA TOWNSEND Comment:Testing performed by : [address] [address] RBC 3.40(L) 3.90 - 5.20 M/cumm KISHA TOWNSEND Comment:Testing performed by : [address] [address] MCV 87.1 81.3 - 96.4 fL KISHA Comment:Testing performed by : [address] [address] MCH 27.9 27.1 - 33.3 pg KISHA TOWNSEND Comment:Testing performed by : [address] [address] MCHC 32.1(L) 32.3 - 35.7 g/dL KISHA Comment:Testing performed by : [address] [address] RDW CV 16.2(H) 11.1 - 14.9 % KISHA Comment:Testing performed by : [address] [address] RDW SD 50.3(H) 35.7 - 48.1 fL KISHA Comment:Testing performed by : [address] [address] NRBC abs 0.00 0.00 - 0.01 K/cumm KISHA Comment:Testing performed by : [address] [address] Blood 06/06/2024 8:44 AM CDT 06/06/2024 9:01 AM CDT us Shaw Mitchell MD LAB BLOOD ORDERABLES Final R esult KISHA TOWNSEND [address] [facility] [place] [address] * (ABNORMAL) Vitamin D 25 hydroxy (06/06/2024 8:44 AM CDT) [facility] Vitamin D 25-OH 23.0(L) 30.0 - 80.0 ng/mL Blood 06/06/2024 8:44 AM CDT 06/06/2024 10:29 AM CDT Shaw Mitchell MD LAB BLOOD ORDERABLES Final R esult Performing Organization Address [facility] Co de Phone Number DANNY[address] [place] [address] * Phosphorus (06/06/2024 8:44 AM CDT) [facility] Phosphorus, pl 3.5 2.3 - 4.5 mg/dL Comment:Testing performed by : [address], [address] Blood 06/06/2024 8:44 AM CDT 06/06/2024 9:01 AM CDT Shaw Mitchell MD LAB BLOOD ORDERABLES Final R esult Performing Organization Address [facility] de Phone Number DANNY[address] [address] * Magnesium (06/06/2024 8:44 AM CDT) [facility] Magnesium 2.2 1.4 - 2.5 mg/dL Comment:Testing performed by : [address] [address] Blood 06/06/2024 8:44 AM CDT 06/06/2024 9:01 AM CDT Shaw Mitchell MD LAB BLOOD ORDERABLES Final R esult Performing Organization Address City/[facility] Co de Phone Number DANNY[address] [address] * Folate (06/06/2024 8:44 AM CDT) [facility] Folic acid 8.3 >=5.0 ng/mL Comment:Testing performed by : [address] [address] Blood 06/06/2024 8:44 AM CDT 06/06/2024 9:01 AM CDT Shaw Mitchell MD LAB BLOOD ORDERABLES Final R esult Performing Organization Address [facility] Co de Phone Number [address] [place] [address] * Vitamin B12 (06/06/2024 8:44 AM CDT) Pathologist [facility] Vitamin B12 398 230 - 1,250 pg/mL Comment:Testing performed by : [address] [address] Blood 06/06/2024 8:44 AM CDT 06/06/2024 9:01 AM CDT Shaw Mitchell MD LAB BLOOD ORDERABLES Final R esult Performing Organization Address [facility] de Phone Number [address] [address] * (ABNORMAL) Basic metabolic panel (06/06/2024 8:44 AM CDT) Pathologist [facility] Sodium 132(L) 135 - 145 mmol/L Comment:Testing performed by : [address] [address] Potassium, pl 3.7 3.3 - 4.9 mmol/L KISHA Comment:Testing performed by : [address] [address] Chloride 96(L) 97 - 110 mmol/L KISHA Comment:Testing performed by : [address] [address] CO2 23 22 - 32 mmol/L KISHA Comment:Testing performed by : [address] [address] Anion gap 13 2 - 15 mmol/L KISHA Comment:Testing performed by : [address] [address] BUN 34(H) 6 - 25 mg/dL KISHA Comment:Testing performed by : [address] [address] Creatinine 0.60 0.60 - 1.10 mg/dL KISHA Comment:Testing performed by : [address] [address] Glucose 414(H) 70 - 199 mg/dL KISHA [...] was last revised 2022. Testing performed by: [address] [address] Calcium 8.8 8.5 - 10.3 mg/dL KISHA Comment:Testing performed by : [address] [address] Blood 06/06/2024 8:44 AM CDT 06/06/2024 9:01 AM CDT us Shaw Mitchell MD LAB BLOOD ORDERABLES Final R esult [facility] [address] [facility] Department [place] [address] * (ABNORMAL) POCT glucose (06/06/2024 7:49 AM CDT) Glucose, POC 430(H) 70 - 199 mg/dL Comment:Testing performed by : [address] [address] Blood 06/06/2024 7:49 AM CDT 06/06/2024 7:49 AM CDT Shaw Mitchell MD LAB POCT ORDERABLES - DEVICE Final Result Performing Organization Address [facility] Co de Phone Number KISHA [address] [place] [address] * (ABNORMAL) POCT glucose (06/05/2024 8:54 PM CDT) [facility] Signature Glucose, POC 244(H) 70 - 199 mg/dL Comment:Testing performed by : [address] [address] Blood 06/05/2024 8:54 PM CDT 06/05/2024 8:54 PM CDT Angelique Pace MD LAB POCT ORDERABLES - DEVICE Final Result Performing Organization Address [facility] de Phone Number [address] [address] * (ABNORMAL) POCT glucose (06/05/2024 3:55 PM CDT) [facility] Glucose, POC 444(H) 70 - 199 mg/dL Comment:Testing performed by : [address] [address] Glucose comment 1 RN/MD Notified [facility] Comment:Testing performed by : [address] [address] Blood 06/05/2024 3:55 PM CDT 06/05/2024 3:55 PM CDT Angelique Pace MD LAB POCT ORDERABLES - DEVICE Final Result Performing Organization Address [facility] de Phone Number DANNY[address] [address] * (ABNORMAL) POCT glucose (06/05/2024 3:53 PM CDT) [facility] Glucose, POC 491(C) 70 - 199 mg/dL Comment:Testing performed by : [facility], [address] [place] [address]., [address] Glucose comment 1 RN/MD Notified KISHA Comment:Testing performed by : [address] [address] Blood 06/05/2024 3:53 PM CDT 06/05/2024 3:53 PM CDT Angelique Pace MD LAB POCT ORDERABLES - DEVICE Final Result Performing Organization Address [facility] de Phone Number DANNY[address] [place] [address] * (ABNORMAL) POCT glucose (06/05/2024 11:40 AM CDT) [facility] Glucose, POC 420(H) 70 - 199 mg/dL Comment:Testing performed by : [facility], [address] [place] [address]., [address] Glucose comment 1 RN/MD Notified KISHA Comment:Testing performed by : [address] [address] Blood 06/05/2024 11:4 0 AM CDT 06/05/2024 11:40 AM CDT Angelique Paec MD LAB POCT ORDERABLES - DEVICE Final Result Performing Organization Address [facility] Co de Phone Number [address] [place] [address] * eGFR (06/05/2024 8:17 AM CDT) [facility] eGFR >90 >=60 mL/min/1. 73 m2 Comment: [...] was last reviewed 2020. Testing performed by: [address] [address] Blood 06/05/2024 8:17 AM CDT 06/05/2024 8:37 AM CDT Jackson Arango DO LAB BLOOD ORDERABLES Fi nal Result [facility]9 [facility] [place] [address] * (ABNORMAL) Differential, auto (06/05/2024 8:17 AM CDT) Neutrophil abs 10.04(H) 1.50 - 6.50 K/cumm Comment:Testing performed by : [address] [address] Imm gran abs 0.07 0.00 - 0.10 K/cumm KISHA Comment:Testing performed by : [address] [address] Lymphocyte abs 0.77(L) 0.80 - 3.30 K/cumm KISHA Comment:Testing performed by : [address] [address] Monocyte abs 0.76 0.20 - 0.80 K/cumm KISHA Comment:Testing performed by : [address] [address] Eosinophil abs 0.00 0.00 - 0.50 K/cumm KISHA Comment:Testing performed by : [address] [address] Basophil abs 0.01 0.00 - 0.10 K/cumm KISHA Comment:Testing performed by : [address] [address] Neutrophil pct 86.2 % [facility] Comment: Interpretive Data Percent cell count reference ranges are not reported, since discordance with absolute values may lead to misinterpretation of CBC data. Current Interpretive Data was last revised on 2017. Testing performed by: [address] [address] Imm gran pct 0.6 % [facility] Comment: Interpretive Data Percent cell count reference ranges are not reported, since discordance with absolute values may lead to misinterpretation of CBC data. Current Interpretive Data was last revised on 2017. Testing performed by: [address] [address] Lymphocyte pct 6.6 % [facility] Comment: Interpretive Data Percent cell count reference ranges are not reported, since discordance with absolute values may lead to misinterpretation of CBC data. Current Interpretive Data was last revised on 2017. Testing performed by: [address] [address] Monocyte pct 6.5 % [facility] Comment: Interpretive Data Percent cell count reference ranges are not reported, since discordance with absolute values may lead to misinterpretation of CBC data. Current Interpretive Data was last revised on 2017. Testing performed by: [address] [address] Eosinophil pct 0.0 % [facility] Comment: Interpretive Data Percent cell count reference ranges are not reported, since discordance with absolute values may lead to misinterpretation of CBC data. Current Interpretive Data was last revised on 2017. Testing performed by: [address] [address] Basophil pct 0.1 % [facility] Comment: Interpretive Data Percent cell count reference ranges are not reported, since discordance with absolute values may lead to misinterpretation of CBC data. Current Interpretive Data was last revised on 2017. Testing performed by: [address] [place] [address] Blood 06/05/2024 8:17 AM CDT 06/05/2024 8:37 AM CDT Jackson Arango DO LAB BLOOD ORDERABLES Fi nal Result KISHA [address] [facility] Department [place] [address] * (ABNORMAL) CBC with auto differential (06/05/2024 8:17 AM CDT) WBC 11.65(H) 3.80 - 9.90 K/cumm Comment:Testing performed by : [address] [address] Hgb 9.0(L) 11.9 - 15.5 g/dL KISHA Comment:Testing performed by : [address] [address] Hct 28.2(L) 35.6 - 45.5 % KISHA Comment:Testing performed by : [address] [address] Plt 326 150 - 400 K/cumm KISHA Comment:Testing performed by : [address] [address] MPV 9.3 9.1 - 12.3 fL KISHA Comment:Testing performed by : [address] [address] RBC 3.23(L) 3.90 - 5.20 M/cumm KISHA Comment:Testing performed by : [address] [address] MCV 87.3 81.3 - 96.4 fL KISHA Comment:Testing performed by : [address] [address] MCH 27.9 27.1 - 33.3 pg KISHA TOWNSEND Comment:Testing performed by : [address] [address] MCHC 31.9(L) 32.3 - 35.7 g/dL KISHA Comment:Testing performed by : [address] [address] RDW CV 16.1(H) 11.1 - 14.9 % KISHA Comment:Testing performed by : [address] [address] RDW SD 50.5(H) 35.7 - 48.1 fL KISHA Comment:Testing performed by : [address] [address] NRBC abs 0.00 0.00 - 0.01 K/cumm KISHA Comment:Testing performed by : [address] [address] Blood 06/05/2024 8:17 AM CDT 06/05/2024 8:37 AM CDT Jackson SheffieldWaveMAXboo DO LAB BLOOD ORDERABLES Fi nal Result Performing Organization Address City/[facility] Co de Phone Number [address] [place] [address] * Magnesium (06/05/2024 8:17 AM CDT) Pathologist [facility] Magnesium 1.9 1.4 - 2.5 mg/dL Comment:Testing performed by : [address] [address] Blood 06/05/2024 8:17 AM CDT 06/05/2024 8:37 AM CDT [employer] SPili Slip Stoppersl DO LAB BLOOD ORDERABLES Fi nal Result Performing Organization Address City/[facility] Co de Phone Number [address] [place] [address] * (ABNORMAL) Comprehensive metabolic panel (06/05/2024 8:17 AM CDT) Sodium 135 135 - 145 mmol/L Comment:Testing performed by : [address] [address] Potassium, pl 3.7 3.3 - 4.9 mmol/L [facility] Comment:Testing performed by : [address] [address] Chloride 101 97 - 110 mmol/L [facility] Comment:Testing performed by : [address], [place]., [address] CO2 24 22 - 32 mmol/L [facility] Comment:Testing performed by : [address] [address] Anion gap 10 2 - 15 mmol/L [facility] Comment:Testing performed by : [address], [place]., [address] BUN 20 6 - 25 mg/dL [facility] Comment:Testing performed by : [address], [place]., [address] Creatinine 0.40(L) 0.60 - 1.10 mg/dL [facility] Comment:Testing performed by : [address] [address] Glucose 304(H) 70 - 199 mg/dL [facility] Comment: Interpretive Data Fasting glucose >/= 126 [...] was last revised 2022. Testing performed by: [address] [address] Calcium 8.6 8.5 - 10.3 mg/dL [facility] Comment:Testing performed by : [address] [address] Bilirubin, total 0.3 0.1 - 1.2 mg/dL [facility] Comment:Testing performed by : [address] [address] Protein, pl 6.4(L) 6.5 - 8.5 g/dL KISHA TOWNSEND Comment:Testing performed by : [address] [address] Albumin 3.6 3.5 - 5.0 g/dL KISHA [place]END Comment:Testing performed by : [address] [address] Alk phos 95 40 - 130 Units/L KISHA [place] Comment:Testing performed by : [address] [address] ALT 12 7 - 45 Units/L KISHA Comment:Testing performed by : [address] [address] AST 18 10 - 45 Units/L KISHA Comment:Testing performed by : [address] [address] Blood 06/05/2024 8:17 AM CDT 06/05/2024 8:37 AM CDT us Jackson Arango DO LAB BLOOD ORDERABLES Fi nal Result Performing Organization Address City/[facility]/ZIP Co de Phone Number [address] [place] [address] * (ABNORMAL) POCT glucose (06/05/2024 8:12 AM CDT) [facility] Glucose, POC 315(H) 70 - 199 mg/dL Comment:Testing performed by : [address] [address] Glucose comment 1 RN/MD Notified KISHA [place] Comment:Testing performed by : [address] [address] Blood 06/05/2024 8:12 AM CDT 06/05/2024 8:12 AM CDT Angelique Pace MD LAB POCT ORDERABLES - DEVICE Final Result Performing Organization Address City/[facility] Co de Phone Number [address] [place] [address] * (ABNORMAL) POCT glucose (06/04/2024 8:03 PM CDT) Glucose, POC 398(H) 70 - 199 mg/dL Comment:Testing performed by : [address] [address] Blood 06/04/2024 8:03 PM CDT 06/04/2024 8:03 PM CDT Jackson Vikram SunibledeidraClerts! LAB POCT ORDERABLES - D EVICE Final Result Performing Organization Address City/[facility] Co de Phone Number [address] [place] [address] * (ABNORMAL) POCT glucose (06/04/2024 3:55 PM CDT) Glucose, POC 361(H) 70 - 199 mg/dL Comment:Testing performed by : [address] [address] Blood 06/04/2024 3:55 PM CDT 06/04/2024 3:55 PM CDT Jackson Vikram SunibledeidraLumedyne Technologiesl DO LAB POCT ORDERABLES - D EVICE Final Result Performing Organization Address [facility] Co de Phone Number [address] [place] [address] * (ABNORMAL) POCT glucose (06/04/2024 12:13 PM CDT) Glucose, POC 356(H) 70 - 199 mg/dL Comment:Testing performed by : [address] [address] Glucose comment 1 RN/MD Notified KISHA Comment:Testing performed by : [address] [address] Blood 06/04/2024 12:1 3 PM CDT 06/04/2024 12:13 PM CDT Jackson Sheffielduraavl DO LAB POCT ORDERABLES - D EVICE Final Result Performing Organization Address [facility] Co de Phone Number KISHA [facility] [place] [address] * eGFR (06/04/2024 8:26 AM CDT) eGFR [...] was last reviewed 2020. Testing performed by: [address] [address] Blood 06/04/2024 8:26 AM CDT 06/04/2024 8:44 AM CDT Jackson Sheffieldurayil DO LAB BLOOD ORDERABLES Fi nal Result Performing Organization Address City/[facility]/ZIP Co de Phone Number KISHA [facility] [place] [address] * (ABNORMAL) Differential, auto (06/04/2024 8:26 AM CDT) Neutrophil abs 8.12(H) 1.50 - 6.50 K/cumm Comment:Testing performed by : [address] [address] Imm gran abs 0.03 0.00 - 0.10 K/cumm KISHA Comment:Testing performed by : [address] [address] Lymphocyte abs 0.64(L) 0.80 - 3.30 K/cumm KISHA Comment:Testing performed by : [address] [address] Monocyte abs 0.82(H) 0.20 - 0.80 K/cumm [facility] Comment:Testing performed by : [address] [address] Eosinophil abs 0.00 0.00 - 0.50 K/cumm KISHA Comment:Testing performed by : [address] [address] Basophil abs 0.01 0.00 - 0.10 K/cumm [facility] Comment:Testing performed by : [address] [address] Neutrophil pct 84.4 % [facility] Comment: Interpretive Data Percent cell count reference ranges are not reported, since discordance with absolute values may lead to misinterpretation of CBC data. Current Interpretive Data was last revised on 2017. Testing performed by: [address] [address] Imm gran pct 0.3 % [facility] Comment: Interpretive Data Percent cell count reference ranges are not reported, since discordance with absolute values may lead to misinterpretation of CBC data. Current Interpretive Data was last revised on 2017. Testing performed by: [address] [address] Lymphocyte pct 6.7 % [facility] Comment: Interpretive Data Percent cell count reference ranges are not reported, since discordance with absolute values may lead to misinterpretation of CBC data. Current Interpretive Data was last revised on 2017. Testing performed by: [address] [address] Monocyte pct 8.5 % [facility] Comment: Interpretive Data Percent cell count reference ranges are not reported, since discordance with absolute values may lead to misinterpretation of CBC data. Current Interpretive Data was last revised on 2017. Testing performed by: [address] [address] Eosinophil pct 0.0 % KISHA Comment: Interpretive Data Percent cell count reference ranges are not reported, since discordance with absolute values may lead to misinterpretation of CBC data. Current Interpretive Data was last revised on 2017. Testing performed by: [address] [address] Basophil pct 0.1 % KISHA Comment: Interpretive Data Percent cell count reference ranges are not reported, since discordance with absolute values may lead to misinterpretation of CBC data. Current Interpretive Data was last revised on 2017. Testing performed by: [address] [address] Blood 06/04/2024 8:26 AM CDT 06/04/2024 8:44 AM CDT Jackson Arango DO LAB BLOOD ORDERABLES Fi nal Result [facility] [address] [facility] [place] [address] * (ABNORMAL) CBC with auto differential (06/04/2024 8:26 AM CDT) WBC 9.62 3.80 - 9.90 K/cumm Comment:Testing performed by : [address] [address] Hgb 9.1(L) 11.9 - 15.5 g/dL KISHA Comment:Testing performed by : [address] [address] Hct 28.3(L) 35.6 - 45.5 % KISHA Comment:Testing performed by : [address] [address] Plt 270 150 - 400 K/cumm KISHA Comment:Testing performed by : [address] [address] MPV 9.4 9.1 - 12.3 fL KISHA [place] Comment:Testing performed by : [address] [address] RBC 3.22(L) 3.90 - 5.20 M/cumm KISHA TOWNSEND Comment:Testing performed by : [address] [address] MCV 87.9 81.3 - 96.4 fL KISHA [place] Comment:Testing performed by : [address], [address] MCH 28.3 27.1 - 33.3 pg KISHA T[place]NSEND Comment:Testing performed by : [address], [address] MCHC 32.2(L) 32.3 - 35.7 g/dL KISHA TOWNSEND Comment:Testing performed by : [address] [address] RDW CV 16.0(H) 11.1 - 14.9 % KISHA Comment:Testing performed by : [address], [address] RDW SD 50.4(H) 35.7 - 48.1 fL KISHA Comment:Testing performed by : [address] [address] NRBC abs 0.00 0.00 - 0.01 K/cumm KISHA Comment:Testing performed by : [address], [address] Blood 06/04/2024 8:26 AM CDT 06/04/2024 8:44 AM CDT us Jackson Arango DO LAB BLOOD ORDERABLES Fi nal Result KISHA [address] [facility] [place] [address] * Magnesium (06/04/2024 8:26 AM CDT) Pathologist [facility] Magnesium 1.9 1.4 - 2.5 mg/dL Comment:Testing performed by : [address] [place] [address] Blood 06/04/2024 8:26 AM CDT 06/04/2024 8:44 AM CDT Jackson Arango DO LAB BLOOD ORDERABLES Fi nal Result [facility] [address] [facility] Department [place] [address] * (ABNORMAL) Comprehensive metabolic panel (06/04/2024 8:26 AM CDT) Sodium 135 135 - 145 mmol/L Comment:Testing performed by : [address] [address] Potassium, pl 3.9 3.3 - 4.9 mmol/L KISHA Comment:Testing performed by : [address] [address] Chloride 102 97 - 110 mmol/L KISHA Comment:Testing performed by : [address] [address] CO2 22 22 - 32 mmol/L KISHA Comment:Testing performed by : [address] [address] Anion gap 11 2 - 15 mmol/L KISHA Comment:Testing performed by : [address] [address] BUN 12 6 - 25 mg/dL KISHA Comment:Testing performed by : [address] [address] Creatinine 0.43(L) 0.60 - 1.10 mg/dL KISHA Comment:Testing performed by : [address] [address] Glucose 254(H) 70 - 199 mg/dL KISHA [...] was last revised 2022. Testing performed by: [facility], [address] [place] [address]., [address] Calcium 8.7 8.5 - 10.3 mg/dL KISHA Comment:Testing performed by : [address] [address] Bilirubin, total 0.3 0.1 - 1.2 mg/dL KISHA Comment:Testing performed by : [address] [address] Protein, pl 6.7 6.5 - 8.5 g/dL KISHA Comment:Testing performed by : [address] [address] Albumin 3.7 3.5 - 5.0 g/dL KISHA Comment:Testing performed by : [address] [address] Alk phos 97 40 - 130 Units/L KISHA Comment:Testing performed by : [address] [address] ALT 13 7 - 45 Units/L KISHA Comment:Testing performed by : [address] [address] AST 30 10 - 45 Units/L KISHA Comment:Testing performed by : [address] [address] Blood 06/04/2024 8:26 AM CDT 06/04/2024 8:44 AM CDT us Jackson Arango DO LAB BLOOD ORDERABLES Fi nal Result KISHA [address] [facility] Department [place] [address] * (ABNORMAL) POCT glucose (06/04/2024 8:24 AM CDT) Glucose, POC 270(H) 70 - 199 mg/dL Comment:Testing performed by : [address] [address] Glucose comment 1 RN/MD Notified KISHA Comment:Testing performed by : [facility], [address] [place] [address]., [address] Blood 06/04/2024 8:24 AM CDT 06/04/2024 8:24 AM CDT Jackson SPili Collinsapurayil DO LAB POCT ORDERABLES - D EVICE Final Result Performing Organization Address [facility] Co de Phone Number [place] [phone] [facility] [place] [address] * POCT glucose (06/03/2024 11:25 PM CDT) Glucose, POC 183 70 - 199 mg/dL Comment:Testing performed by : [address], [address] Glucose comment 1 Follow Protocol KISHA Comment:Testing performed by : [address] [address] Blood 06/03/2024 11:2 5 PM CDT 06/03/2024 11:25 PM CDT Jackson SPili Kalapurayil DO LAB POCT ORDERABLES - D EVICE Final Result Performing Organization Address [facility] Co de Phone Number [place] [phone] [facility] [place] [address] * (ABNORMAL) POCT glucose (06/03/2024 9:04 PM CDT) Glucose, POC 331(H) 70 - 199 mg/dL Comment:Testing performed by : [address] [address] Glucose comment 1 Follow Protocol KISHA Comment:Testing performed by : [address] [address] Blood 06/03/2024 9:04 PM CDT 06/03/2024 9:04 PM CDT Jackson Arango DO LAB POCT ORDERABLES - D EVICE Final Result Performing Organization Address City/[facility] Co de Phone Number KISHA [address] [place] [address] * (ABNORMAL) POCT glucose (06/03/2024 7:02 PM CDT) Glucose, POC 351(H) 70 - 199 mg/dL Comment:Testing performed by : [address] [address] Blood 06/03/2024 7:02 PM CDT 06/03/2024 7:02 PM CDT Jackson Arango DO LAB POCT ORDERABLES - D EVICE Final Result Performing Organization Address [facility] Co de Phone Number DANNY[address] [address] * (ABNORMAL) POCT glucose (06/03/2024 6:21 PM CDT) Glucose, POC 321(H) 70 - 199 mg/dL Comment:Testing performed by : [address] [address] Blood 06/03/2024 6:21 PM CDT 06/03/2024 6:21 PM CDT Jackson Arango DO LAB POCT ORDERABLES - D EVICE Final Result Performing Organization Address City/[facility] Co de Phone Number KISHA [address] [address] * (ABNORMAL) POCT glucose (06/03/2024 6:19 PM CDT) Glucose, POC 342(H) 70 - 199 mg/dL Comment:Testing performed by : [address] [address] Blood 06/03/2024 6:19 PM CDT 06/03/2024 6:19 PM CDT Jackson Arango DO LAB POCT ORDERABLES - D EVICE Final Result Performing Organization Address [facility] Co de Phone Number KISHA 06 [address] [place] [address] * eGFR (06/03/2024 12:53 PM CDT) eGFR [...] was last reviewed 2020. Testing performed by: [facility], [address] [place] [address]., [address] Blood 06/03/2024 12:5 3 PM CDT 06/03/2024 1:07 PM CDT us Jackson Collinsapurayil DO LAB BLOOD ORDERABLES Fi nal Result Performing Organization Address City/[facility]/ZIP Co de Phone Number KISHA [address] [place] [address] * Differential, auto (06/03/2024 12:53 PM CDT) Neutrophil abs 3.43 1.50 - 6.50 K/cumm Comment:Testing performed by : [address] [address] Imm gran abs 0.02 0.00 - 0.10 K/cumm KISHA Comment:Testing performed by : [address] [address] Lymphocyte abs 0.94 0.80 - 3.30 K/cumm [facility] Comment:Testing performed by : [address] [address] Monocyte abs 0.75 0.20 - 0.80 K/cumm [facility] Comment:Testing performed by : [address] [address] Eosinophil abs 0.00 0.00 - 0.50 K/cumm [facility] Comment:Testing performed by : [address] [address] Basophil abs 0.00 0.00 - 0.10 K/cumm [facility] Comment:Testing performed by : [address] [address] Neutrophil pct 66.7 % [facility] Comment: Interpretive Data Percent cell count reference ranges are not reported, since discordance with absolute values may lead to misinterpretation of CBC data. Current Interpretive Data was last revised on 2017. Testing performed by: [address] [address] Imm gran pct 0.4 % [facility] Comment: Interpretive Data Percent cell count reference ranges are not reported, since discordance with absolute values may lead to misinterpretation of CBC data. Current Interpretive Data was last revised on 2017. Testing performed by: [address] [address] Lymphocyte pct 18.3 % [facility] Comment: Interpretive Data Percent cell count reference ranges are not reported, since discordance with absolute values may lead to misinterpretation of CBC data. Current Interpretive Data was last revised on 2017. Testing performed by: [address] [place] [address] Monocyte pct 14.6 % KISHA Comment: Interpretive Data Percent cell count reference ranges are not reported, since discordance with absolute values may lead to misinterpretation of CBC data. Current Interpretive Data was last revised on 2017. Testing performed by: [address] [address] Eosinophil pct 0.0 % KISHA Comment: Interpretive Data Percent cell count reference ranges are not reported, since discordance with absolute values may lead to misinterpretation of CBC data. Current Interpretive Data was last revised on 2017. Testing performed by: [address] [address] Basophil pct 0.0 % KISHA Comment: Interpretive Data Percent cell count reference ranges are not reported, since discordance with absolute values may lead to misinterpretation of CBC data. Current Interpretive Data was last revised on 2017. Testing performed by: [address] [address] Blood 06/03/2024 12:5 3 PM CDT 06/03/2024 1:07 PM CDT Jackson Arango DO LAB BLOOD ORDERABLES Fi nal Result KISHA [address] [facility] [place] [address] * (ABNORMAL) CBC with auto differential (06/03/2024 12:53 PM CDT) Pathologist [facility] WBC 5.14 3.80 - 9.90 K/cumm Comment:Testing performed by : [address] [address] Hgb 8.8(L) 11.9 - 15.5 g/dL KISHA TOWNSEND Comment:Testing performed by : [address] [address] Hct 27.7(L) 35.6 - 45.5 % KISHA Comment:Testing performed by : [address] [address] Plt 233 150 - 400 K/cumm KISHA TOWNSEND Comment:Testing performed by : [address] [address] MPV 9.4 9.1 - 12.3 fL KISHA TOWNSEND Comment:Testing performed by : [address] [address] RBC 3.12(L) 3.90 - 5.20 M/cumm KISHA TOWNSEND Comment:Testing performed by : [address] [address] MCV 88.8 81.3 - 96.4 fL KISHA Comment:Testing performed by : [address] [address] MCH 28.2 27.1 - 33.3 pg KISHA TOWNSEND Comment:Testing performed by : [address] [address] MCHC 31.8(L) 32.3 - 35.7 g/dL KISHA Comment:Testing performed by : [address] [address] RDW CV 16.1(H) 11.1 - 14.9 % KISHA Comment:Testing performed by : [address] [address] RDW SD 51.4(H) 35.7 - 48.1 fL KISHA TOWNSEND Comment:Testing performed by : [address] [address] NRBC abs 0.00 0.00 - 0.01 K/cumm KISHA Comment:Testing performed by : [address] [address] Blood 06/03/2024 12:5 3 PM CDT 06/03/2024 1:07 PM CDT us Jackson Arango DO LAB BLOOD ORDERABLES Fi nal Result KISHA [address] [facility] [place] [address] * Magnesium (06/03/2024 12:53 PM CDT) Magnesium 1.8 1.4 - 2.5 mg/dL Comment:Testing performed by : [address] [address] Blood 06/03/2024 12:5 3 PM CDT 06/03/2024 1:07 PM CDT Jackson Arango DO LAB BLOOD ORDERABLES Fi nal Result [facility] [address] [facility] [place] [address] * (ABNORMAL) Comprehensive metabolic panel (06/03/2024 12:53 PM CDT) Pathologist [facility] Sodium 135 135 - 145 mmol/L Comment:Testing performed by : [address] [address] Potassium, pl 3.0(L) 3.3 - 4.9 mmol/L KISHA Comment:Testing performed by : [address] [address] Chloride 101 97 - 110 mmol/L KISHA Comment:Testing performed by : [address] [address] CO2 24 22 - 32 mmol/L KISHA Comment:Testing performed by : [address] [address] Anion gap 10 2 - 15 mmol/L KISHA Comment:Testing performed by : [address] [address] BUN 11 6 - 25 mg/dL KISHA Comment:Testing performed by : [address] [address] Creatinine 0.53(L) 0.60 - 1.10 mg/dL KISHA Comment:Testing performed by : [address] [address] Glucose 231(H) 70 - 199 mg/dL KISHA [...] was last revised 2022. Testing performed by: [address] [address] Calcium 8.3(L) 8.5 - 10.3 mg/dL KISHA Comment:Testing performed by : [address] [address] Bilirubin, total 0.3 0.1 - 1.2 mg/dL [facility] Comment:Testing performed by : [address] [address] Protein, pl 6.2(L) 6.5 - 8.5 g/dL [facility] Comment:Testing performed by : [address] [address] Albumin 3.5 3.5 - 5.0 g/dL [facility] Comment:Testing performed by : [address] [address] Alk phos 92 40 - 130 Units/L KISHA Comment:Testing performed by : [address] [address] ALT 12 7 - 45 Units/L [facility] Comment:Testing performed by : [address] [address] AST 22 10 - 45 Units/L [facility] Comment:Testing performed by : [address] [address] Blood 06/03/2024 12:5 3 PM CDT 06/03/2024 1:07 PM CDT us Jackson Arango DO LAB BLOOD ORDERABLES Fi nal Result IKSHA [address] [address] * (ABNORMAL) POCT glucose (06/03/2024 11:38 AM CDT) Glucose, POC 286(H) 70 - 199 mg/dL Comment:Testing performed by : [address] [address] Glucose comment 1 Use This Result KISHA TOWNSEND Comment:Testing performed by : [address] [address] Blood 06/03/2024 11:3 8 AM CDT 06/03/2024 11:38 AM CDT us Jackson Arango DO LAB POCT ORDERABLES - D EVICE Final Result Performing Organization Address [facility] de Phone Number [address] [address] * POCT glucose (06/03/2024 8:24 AM CDT) Glucose, POC 126 70 - 199 mg/dL Comment:Testing performed by : [address] [address] Glucose comment 1 RN/MD Notified KISHA TOWNSEND Comment:Testing performed by : [address] [address] Blood 06/03/2024 8:24 AM CDT 06/03/2024 8:24 AM CDT us Jackson Nickl DO LAB POCT ORDERABLES - D EVICE Final Result Performing Organization Address [facility] Co de Phone Number [address] [address] * Troponin T high-sensitivity 6-hour (06/03/2024 4:19 AM CDT) Trop T hs 14 <=14 ng/L Comment: Interpretive Data For further hscTnT resources including the diagnostic algorithm and an aid in interpretation, copy and paste this link: https://nrl.testcatalog.org/show/hsTrop Current Interpretive Data last revised 2020. Testing performed by: [address] [address] Trop T hs delta See Comment ng/L KISHA Comment: Inappropriate collection time to report a delta. Testing performed by: [address] [address] Trop T hs pct delta See Comment % KISHA Comment: Inappropriate collection time to report a delta. Testing performed by: [address] [address] Trop T hs interp See Comment KISHA Comment: Inappropriate collection time to report a delta. Testing performed by: [address] [address] Blood 06/03/2024 4:19 AM CDT 06/03/2024 5:22 AM CDT us Reynaldo Cuevas DO LAB BLOOD ORDERABLES Final Res ult Performing Organization Address City/[facility]/ZIP Co de Phone Number [address] [place] [address] * Thyroid Function Placer (06/03/2024 4:19 AM CDT) TSH 0.75 0.30 - 4.20 mcIUnit/mL Comment:Testing performed by : [address] [address] Blood 06/03/2024 4:19 AM CDT 06/03/2024 5:22 AM CDT us Katty Armenta MD LAB BLOOD ORDER PHUONG Final Result [address] [place] [address] * Troponin T high-sensitivity 4-hour (06/03/2024 12:38 AM CDT) Trop T hs 10 <=14 ng/L Comment: Interpretive Data For further hscTnT resources including the diagnostic algorithm and an aid in interpretation, copy and paste this link: https://nrl.testcatalog.org/show/hsTrop Current Interpretive Data last revised 2020. Testing performed by: [address] [address] Trop T hs delta 2 ng/L KISHA Comment:Testing performed by : [address] [address] Trop T hs interp Insignificant KISHA Comment:Testing performed by : [address] [address] Blood 06/03/2024 12:3 8 AM CDT 06/03/2024 12:41 AM CDT Reynaldo Cuevas DO LAB BLOOD ORDERABLES Final Res ult Performing Organization Address [facility] Co de Phone Number [address] [employer] [place] [address] * POCT glucose (06/02/2024 11:11 PM CDT) [facility] Glucose, POC 174 70 - 199 mg/dL Comment:Testing performed by : [address] [address] Blood 06/02/2024 11:1 1 PM CDT 06/02/2024 11:11 PM CDT Katty Armenta MD LAB POCT ORDERA BLES - DEVICE Final Result Performing Organization Address City/[facility] de Phone Number [address] [place] [address] * (ABNORMAL) Urinalysis reflex to microscopic and culture Urine (06/02/2024 10:37 PM CDT) Pathologist [facility] Color, ur Yellow Yellow Comment:Testing performed by : [address] [address] Clarity, ur Clear Clear KISHA Comment:Testing performed by : [address] [address] Specific gravity, ur 1.007 1.003 - 1.030 KISHA Comment:Testing performed by : [address], [place]., [address] pH, urine 7.5 KISHA Comment: Interpretive Data U rine pH is affected by diet, medications, systemic acid-base disturbances, and renal tubular function. pH may affect urinary stone formation. For example, urine pH below 6.0 may help reduce the tendency for calcium phosphate stones and pH greater than 6.0 may reduce the tendency for uric acid stone formation. Source: [facility] [employer] Current Interpretive Data was last revised on 2017 Testing performed by: [address] [address] Protein, ur ql Negative Negative KISHA Comment:Testing performed by : [address] [address] Glucose, ur ql Negative Negative KISHA Comment:Testing performed by : [address] [address] Ketones, ur Negative Negative KISHA Comment:Testing performed by : [address] [address] Bilirubin, ur Negative Negative KISHA Comment:Testing performed by : [address] [address] Blood, ur Negative Negative KISHA Comment:Testing performed by : [address] [address] Urobilinogen, ur <2.0 <2.0 mg/dL KISHA Comment:Testing performed by : [address] [address] Nitrite, ur Positive(A) Negative KISHA Comment:Testing performed by : [address] [address] Leukocyte esterase, ur 4+(A) Negative KISHA Comment:Testing performed by : [address] [address] UA reflex comment Reflex to microscopic UA will be performed. KISHA Comment:Testing performed by : [address] [address] Urine 06/02/2024 10:3 7 PM CDT 06/02/2024 10:39 PM CDT [employer] LAB MICROBIOLOGY - GENERAL ORD ERABLES Final Result Performing Organization Address [facility] de Phone Number KISHA [facility] [place] [address] * (ABNORMAL) Urinalysis, microscopic only (06/02/2024 10:37 PM CDT) WBC, ur 21-50(A) 0 - 5 /HPF Comment:Testing performed by : [address] [address] RBC, ur 0-2 0 - 2 /HPF KISHA Comment:Testing performed by : [address] [address] Epithelial cells, squamous, ur 11-20(A) 0 - 5 /HPF KISHA Comment:Testing performed by : [address] [address] Bacteria, ur 1+(A) KISHA Comment:Testing performed by : [address] [address] Mucous, ur Present(A) KISHA Comment:Testing performed by : [address] [address] Culture Reflex Comment Reflex to urine culture will be performed. KISHA Comment:Testing performed by : [address] [address] Urine 06/02/2024 10:3 7 PM CDT 06/02/2024 10:39 PM CDT Reynaldo Cuevas DO LAB URINE ORDERABLES Final Res ult Performing Organization Address [facility] Co de Phone Number KISHA [facility]0 [facility] [place] [address] * (ABNORMAL) Urine culture Urine (06/02/2024 10:37 PM CDT) Report Final Report: Greater than or equal to 100,000 colonies/mL of Escherichia coli (.) Comment:Testing performed by : [facility], [address] [facility], [place]., [address] Organism ESCHERICHIA COLI KISHA Urine 06/02/2024 10:3 7 PM CDT 06/03/2024 5:22 AM CDT Narrative KISHA - 06/05/2024 12:01 PM CDT Testing performed by [facility] Microbiology Laboratory ([phone]) Organism Antibiotic Method Susceptibility Escherichia coli Ampicillin [...] Y - GENERAL ORDERABLES Final Result KISHA [address] [facility] [place] [address] * Troponin T high-sensitivity 2-hour (06/02/2024 10:21 PM CDT) Trop T hs 9 <=14 ng/L Comment: Interpretive Data For further hscTnT resources including the diagnostic algorithm and an aid in interpretation, copy and paste this link: https://nrl.testcatalog.org/show/hsTrop Current Interpretive Data last revised 2020. Testing performed by: [address] [address] Trop T hs delta 1 ng/L KISHA Comment:Testing performed by : [address] [place] [address] Trop T hs interp Insignificant KISHA Comment:Testing performed by : [facility], [address] [place] [address]., [address] Blood 06/02/2024 10:2 1 PM CDT 06/02/2024 10:25 PM CDT us Reynaldo Cuevas DO LAB BLOOD ORDERABLES Final Res ult Performing Organization Address [facility] Co de Phone Number [address] [place] [address] * POCT glucose (06/02/2024 10:19 PM CDT) Glucose, POC 152 70 - 199 mg/dL Comment:Testing performed by : [address] [address] Glucose comment 1 RN/MD Notified KISHA Comment:Testing performed by : [address] [address] Blood 06/02/2024 10:1 9 PM CDT 06/02/2024 10:19 PM CDT Katty Armenta MD LAB POCT ORDERA BLES - DEVICE Final Result Performing Organization Address [facility] Co de Phone Number [address] [address] * Troponin T high-sensitivity series (baseline, 2hr, 4hr, 6hr) (06/02/2024 8:11 PM CDT) Trop T hs 8 <=14 ng/L Comment: Interpretive Data For further hscTnT resources including the diagnostic algorithm and an aid in interpretation, copy and paste this link: https://nrl.testcatalog.org/show/hsTrop Current Interpretive Data last revised 2020. Testing performed by: [address] [address] Blood 06/02/2024 8:11 PM CDT 06/02/2024 8:15 PM CDT Reynaldo Cuevas DO LAB BLOOD ORDERABLES Final Res ult Performing Organization Address City/State/[facility] Co de Phone Number KISHA [facility]0 [facility] [place] [address] * Sepsis Lactate w/ Reflex (06/02/2024 8:11 PM CDT) Sepsis Lactate 1.2 0.7 - 2.0 mmol/L Comment:Testing performed by : [facility], [address] [place] [address]., [address] Blood 06/02/2024 8:11 PM CDT 06/02/2024 8:15 PM CDT Reynaldo Cuevas DO LAB BLOOD ORDERABLES Final Res ult Performing Organization Address [facility] Co de Phone Number KISHA [facility] [place] [address] * eGFR (06/02/2024 8:11 PM CDT) eGFR [...] was last reviewed 2020. Testing performed by: [address] [address] Blood 06/02/2024 8:11 PM CDT 06/02/2024 8:15 PM CDT us Reynaldo Cuevas DO LAB BLOOD ORDERABLES Final Res ult [facility] [address] [facility] Department [place] [address] * (ABNORMAL) Comprehensive metabolic panel (06/02/2024 8:11 PM CDT) Sodium 136 135 - 145 mmol/L Comment:Testing performed by : [address] [address] Potassium, pl 3.7 3.3 - 4.9 mmol/L KISHA Comment: Hemolyzed; Potassium value may be falsely elevated by as much as 1.0 mmol/L. Suggest redraw and reanalysis. Testing performed by: [address] [address] Chloride 99 97 - 110 mmol/L KISHA Comment:Testing performed by : [address] [address] CO2 27 22 - 32 mmol/L KISHA Comment:Testing performed by : [address] [address] Anion gap 10 2 - 15 mmol/L KISHA Comment:Testing performed by : [address] [address] BUN 8 6 - 25 mg/dL KISHA Comment:Testing performed by : [address] [address] Creatinine 0.56(L) 0.60 - 1.10 mg/dL KISHA Comment:Testing performed by : [address] [address] Glucose 71 70 - 199 mg/dL KISHA [...] was last revised 2022. Testing performed by: [address] [address] Calcium 9.0 8.5 - 10.3 mg/dL KISHA Comment:Testing performed by : [address] [address] Bilirubin, total 0.5 0.1 - 1.2 mg/dL KISHA Comment:Testing performed by : [address] [address] Protein, pl 7.1 6.5 - 8.5 g/dL KISHA Comment:Testing performed by : [address] [address] Albumin 4.1 3.5 - 5.0 g/dL KISHA Comment:Testing performed by : [address] [address] Alk phos 112 40 - 130 Units/L KISHA Comment:Testing performed by : [address] [address] ALT 15 7 - 45 Units/L KISHA Comment:Testing performed by : [address] [address] AST 30 10 - 45 Units/L KISHA Comment: Hemolyzed; result may be falsely elevated Testing performed by: [address] [address] Blood 06/02/2024 8:11 PM CDT 06/02/2024 8:15 PM CDT us Reynaldo Cuevas DO LAB BLOOD ORDERABLES Final Res ult KISHA TOWNSEND [address] [facility] [place] [address] * XR Chest 1 Vw Portable (if [...] Dany Vu M.D. NS: NS Report ID: [id number] Reading Location: [id number] Procedure Note Dany Vu MD - 06/02/2024 [...] Dany Vu M.D. NS: NS Report ID: [id number] Reading Location: [place] [address] Reynaldo Cuevas DO IMG XR PROCEDURES Final Result * ECG 12 lead (06/02/2024 7:29 PM CDT) Ventricular Rate EKG/Min 120 BPM [facility] Atrial Rate 120 BPM [facility] AK-Interval (MSEC) 206 ms [facility] QRS-Interval (MSEC) 66 ms [facility] QT-Interval (MSEC) 304 ms [facility] QTc 429 ms [facility] P [place] -18 degrees [facility] R [place] 22 degrees [facility] T [place] 109 degrees [facility] Diagnosis Sinus tachycardia Septal infarct (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 rate has increased BY 49 BPM Confirmed by AUDRA CLAIRE M.D. ([id number]) on 06/08/2024 1:30:00 PM [facility] 06/02/2024 7:29 PM CDT 06/08/2024 1:30 PM CDT Reynaldo Cuevas DO ECG ORDERABLES Final Result [facility] * (ABNORMAL) Influenza A/B, RSV, and COVID-19 PCR Nasopharyngeal (06/02/2024 7:24 PM CDT) [facility] COVID-19 RNA Positive(A) Negative Comment:Testing performed by : [address] [address] Influenza A RNA Negative Negative [facility] Comment:Testing performed by : [address] [address] Influenza B RNA Negative Negative [facility] Comment:Testing performed by : [address] [address] RSV RNA Negative Negative [facility] Comment: Interpretive data: Testing performed by [facility]. This test is performed using the [employer] Xpert Xpress CoV-2/Flu/RSV plus assay. This is a multiplex, real-time reverse transcriptase PCR assay intended for the qualitative detection of nucleic acid from SARS-CoV-2, influenza A, influenza B, and respiratory syncytial virus. This assay has been cleared by the [place] Food and Drug administration. The performance characteristics have been verified by the [facility]. Results must be considered in the clinical context, and a negative result does not rule out infection. Interpretive Data last revised 2023 Testing performed by: [address] [address] Nasopharyngeal 06/02/2024 7: 24 PM CDT 06/02/2024 7:35 PM CDT Narrative [facility] - 06/02/2024 8:16 PM CDT Is the Patient experiencing symptoms consistent with COVID?->Yes Reynaldo Cuevas DO LAB MICROBIOLOGY - GENERAL ORD ERABLES Final Result [facility] [address] [facility] Department [place] [address] * (ABNORMAL) Differential, auto (06/02/2024 7:24 PM CDT) [facility] Neutrophil abs 8.49(H) 1.50 - 6.50 K/cumm Comment:Testing performed by : [address] [address] Imm gran abs 0.06 0.00 - 0.10 K/cumm [facility] Comment:Testing performed by : [address], [place]., [address] Lymphocyte abs 1.02 0.80 - 3.30 K/cumm KISHA Comment:Testing performed by : [address] [address] Monocyte abs 0.65 0.20 - 0.80 K/cumm [facility] Comment:Testing performed by : [address], [place]., [address] Eosinophil abs 0.00 0.00 - 0.50 K/cumm [facility] Comment:Testing performed by : [address], [place]., [address] Basophil abs 0.01 0.00 - 0.10 K/cumm [facility] Comment:Testing performed by : [address] [address] Neutrophil pct 82.9 % [facility] Comment: Interpretive Data Percent cell count reference ranges are not reported, since discordance with absolute values may lead to misinterpretation of CBC data. Current Interpretive Data was last revised on 2017. Testing performed by: [address] [address] Imm gran pct 0.6 % [facility] Comment: Interpretive Data Percent cell count reference ranges are not reported, since discordance with absolute values may lead to misinterpretation of CBC data. Current Interpretive Data was last revised on 2017. Testing performed by: [address] [address] Lymphocyte pct 10.0 % [facility] Comment: Interpretive Data Percent cell count reference ranges are not reported, since discordance with absolute values may lead to misinterpretation of CBC data. Current Interpretive Data was last revised on 2017. Testing performed by: [address] [address] Monocyte pct 6.4 % [facility] Comment: Interpretive Data Percent cell count reference ranges are not reported, since discordance with absolute values may lead to misinterpretation of CBC data. Current Interpretive Data was last revised on 2017. Testing performed by: [address] [address] Eosinophil pct 0.0 % KISHA TOWNSEND Comment: Interpretive Data Percent cell count reference ranges are not reported, since discordance with absolute values may lead to misinterpretation of CBC data. Current Interpretive Data was last revised on 2017. Testing performed by: [address] [address] Basophil pct 0.1 % KISHA TOWNSEND Comment: Interpretive Data Percent cell count reference ranges are not reported, since discordance with absolute values may lead to misinterpretation of CBC data. Current Interpretive Data was last revised on 2017. Testing performed by: [address] [address] Blood 06/02/2024 7:24 PM CDT 06/02/2024 7:36 PM CDT us Reynaldo Cuevas DO LAB BLOOD ORDERABLES Final Res ult KISHA [facility]6 [facility] Department [place] [address] * (ABNORMAL) CBC with auto differential (06/02/2024 7:24 PM CDT) WBC 10.23(H) 3.80 - 9.90 K/cumm Comment:Testing performed by : [address] [address] Hgb 10.3(L) 11.9 - 15.5 g/dL KISHA TOWNSEND Comment:Testing performed by : [address] [address] Hct 32.8(L) 35.6 - 45.5 % KISHA TOWNSEND Comment:Testing performed by : [address] [address] Plt 385 150 - 400 K/cumm KISHA TOWNSEND Comment:Testing performed by : [address] [address] MPV 9.5 9.1 - 12.3 fL KISHA TOWNSEND Comment:Testing performed by : [address] [address] RBC 3.64(L) 3.90 - 5.20 M/cumm KISHA Comment:Testing performed by : [address], [address] MCV 90.1 81.3 - 96.4 fL KISHA Comment:Testing performed by : [address], [address] MCH 28.3 27.1 - 33.3 pg KISHA Comment:Testing performed by : [address], [address] MCHC 31.4(L) 32.3 - 35.7 g/dL KISHA Comment:Testing performed by : [address], [address] RDW CV 16.2(H) 11.1 - 14.9 % KISHA Comment:Testing performed by : [address], [address] RDW SD 52.2(H) 35.7 - 48.1 fL KSIHA Comment:Testing performed by : [address], [address] NRBC abs 0.00 0.00 - 0.01 K/cumm KISHA Comment:Testing performed by : [address], [address] Blood 06/02/2024 7:24 PM CDT 06/02/2024 7:36 PM CDT us Reynaldo Cuevas DO LAB BLOOD ORDERABLES Final Res ult KISHA 5130 [facility] Department [place] [address] * CT Chest WO Contrast [...] Jeronimo Kumar M.D. KT: KIAN Report ID: [id number] Reading Location: [id number] Procedure Note Jeronimo Kumar MD - 05/30/2024 [...] Jeronimo Kumar M.D. KT: KT Report ID: [id number] Reading Location: [place] [address] PROCEDURES Final Result [...] was last reviewed 2020. Testing performed by: [facility], [address] [place] [address]., [address] Blood 05/30/2024 6:56 PM CDT 05/30/2024 7:03 PM CDT Bhupinder WINN LAB BLOOD ORDERABL ES Final Result KISHA 6530 [facility] Department [place] [address] * Differential, auto (05/30/2024 6:56 PM CDT) Neutrophil abs 4.92 1.50 - 6.50 K/cumm Comment:Testing performed by : [address], [place]., [address] Imm gran abs 0.01 0.00 - 0.10 K/cumm [facility] Comment:Testing performed by : [address], [place]., [address] Lymphocyte abs 1.09 0.80 - 3.30 K/cumm [facility] Comment:Testing performed by : [address], [place]., [address] Monocyte abs 0.57 0.20 - 0.80 K/cumm [facility] Comment:Testing performed by : [address] [address] Eosinophil abs 0.00 0.00 - 0.50 K/cumm [facility] Comment:Testing performed by : [address] [address] Basophil abs 0.01 0.00 - 0.10 K/cumm [facility] Comment:Testing performed by : [address] [address] Neutrophil pct 74.5 % [facility] Comment: Interpretive Data Percent cell count reference ranges are not reported, since discordance with absolute values may lead to misinterpretation of CBC data. Current Interpretive Data was last revised on 2017. Testing performed by: [address] [address] Imm gran pct 0.2 % [facility] Comment: Interpretive Data Percent cell count reference ranges are not reported, since discordance with absolute values may lead to misinterpretation of CBC data. Current Interpretive Data was last revised on 2017. Testing performed by: [address] [address] Lymphocyte pct 16.5 % [facility] Comment: Interpretive Data Percent cell count reference ranges are not reported, since discordance with absolute values may lead to misinterpretation of CBC data. Current Interpretive Data was last revised on 2017. Testing performed by: [address] [address] Monocyte pct 8.6 % [facility] Comment: Interpretive Data Percent cell count reference ranges are not reported, since discordance with absolute values may lead to misinterpretation of CBC data. Current Interpretive Data was last revised on 2017. Testing performed by: [address] [address] Eosinophil pct 0.0 % KISHA TOWNSEND Comment: Interpretive Data Percent cell count reference ranges are not reported, since discordance with absolute values may lead to misinterpretation of CBC data. Current Interpretive Data was last revised on 2017. Testing performed by: [address] [address] Basophil pct 0.2 % KISHA TOWNSEND Comment: Interpretive Data Percent cell count reference ranges are not reported, since discordance with absolute values may lead to misinterpretation of CBC data. Current Interpretive Data was last revised on 2017. Testing performed by: [address] [address] Blood 05/30/2024 6:56 PM CDT 05/30/2024 7:03 PM CDT us Bhupinder WINN LAB BLOOD ORDERABL ES Final Result KISHA 8959 [facility] Department of Laboratories [place], [place] [id number] * (ABNORMAL) CBC with auto differential (05/30/2024 6:56 PM CDT) WBC 6.60 3.80 - 9.90 K/cumm Comment:Testing performed by : [address] [address] Hgb 9.8(L) 11.9 - 15.5 g/dL KISHA TOWNSEND Comment:Testing performed by : [address] [address] Hct 30.7(L) 35.6 - 45.5 % KISHA TOWNSEND Comment:Testing performed by : [address] [address] Plt 329 150 - 400 K/cumm KISHA TOWNSEND Comment:Testing performed by : [address] [address] MPV 9.4 9.1 - 12.3 fL KISHA TOWNSEND Comment:Testing performed by : [address] [address] RBC 3.45(L) 3.90 - 5.20 M/cumm KISHA TOWNSEND Comment:Testing performed by : [address] [address] MCV 89.0 81.3 - 96.4 fL KISHA Comment:Testing performed by : [address] [address] MCH 28.4 27.1 - 33.3 pg KISHA TOWNSEND Comment:Testing performed by : [address] [address] MCHC 31.9(L) 32.3 - 35.7 g/dL KISHA Comment:Testing performed by : [address] [address] RDW CV 16.3(H) 11.1 - 14.9 % KISHA Comment:Testing performed by : [address] [address] RDW SD 51.9(H) 35.7 - 48.1 fL KISHA Comment:Testing performed by : [address] [address] NRBC abs 0.00 0.00 - 0.01 K/cumm KISHA Comment:Testing performed by : [address] [address] Blood 05/30/2024 6:56 PM CDT 05/30/2024 7:03 PM CDT us Bhupinder WINN LAB BLOOD ORDERABL ES Final Result KISHA 2203 [facility] Department [place] [address] * (ABNORMAL) aPTT (05/30/2024 6:56 PM CDT) aPTT 40(H) 22 - 37 sec Comment: Ref Range High Interpretive data aPTT test has not been evaluated for monitoring heparin therapy. The anti-Xa is the preferred test. Current interpretive data was last revised on 2019. Testing performed by: [address] [address] Blood 05/30/2024 6:56 PM CDT 05/30/2024 7:03 PM CDT Adebowale Tolulade Adesida PA LAB BLOOD ORDERABL ES Final Result Performing Organization Address City/[facility]/ZIP Co de Phone Number IKSHA [address] [place] [address] * (ABNORMAL) Protime-INR (05/30/2024 6:56 PM CDT) PT 20.2(H) 12.0 - 14.6 sec Comment: Ref Range High Testing performed by: [address] [address] INR 1.8(H) 0.9 - 1.2 KISHA Comment: Ref Range High Interpretive data Oral anticoagulant therapeutic ranges: Venous thromboembolism prophylaxis or treatment: 2.0-3.0 CARDIOLOGY Standard range: 2.0-3.0 High-intensity range: 2.5-3.5 Refer to indication-specific guidelines for appropriate target ranges for prosthetic heart valve replacement. Current interpretive data was last revised on 2019. Testing performed by: [address] [address] Blood 05/30/2024 6:56 PM CDT 05/30/2024 7:03 PM CDT [employer] Tolulade Adesida PA LAB BLOOD ORDERABL ES Final Result Performing Organization Address City/[facility]/ZIP Co de Phone Number [place] [address] [facility] As We Age [place], [place] [id number] * (ABNORMAL) Comprehensive metabolic panel (05/30/2024 6:56 PM CDT) Sodium 139 135 - 145 mmol/L Comment:Testing performed by : [address] [address] Potassium, pl 3.7 3.3 - 4.9 mmol/L KISHA Comment: Hemolyzed; Potassium value may be falsely elevated by as much as 1.0 mmol/L. Suggest redraw and reanalysis. Testing performed by: [address], [place]., [address] Chloride 102 97 - 110 mmol/L KISHA Comment:Testing performed by : [address], [place]., [address] CO2 26 22 - 32 mmol/L KISHA Comment:Testing performed by : [address], [place]., [address] Anion gap 11 2 - 15 mmol/L KISHA Comment:Testing performed by : [address] [address] BUN 9 6 - 25 mg/dL [facility] Comment:Testing performed by : [address], [place]., [address] Creatinine 0.52(L) 0.60 - 1.10 mg/dL [facility] Comment:Testing performed by : [address] [address] Glucose 168 70 - 199 mg/dL [facility] Comment: Interpretive Data Fasting glucose >/= 126 [...] was last revised 2022. Testing performed by: [address] [address] Calcium 9.2 8.5 - 10.3 mg/dL KISHA Comment:Testing performed by : [address] [address] Bilirubin, total 0.5 0.1 - 1.2 mg/dL KISHA Comment:Testing performed by : [address] [address] Protein, pl 7.1 6.5 - 8.5 g/dL KISHA Comment:Testing performed by : [address] [address] Albumin 4.1 3.5 - 5.0 g/dL KISHA Comment:Testing performed by : [address] [address] Alk phos 120 40 - 130 Units/L KISHA Comment:Testing performed by : [address] [address] ALT 14 7 - 45 Units/L KISHA Comment:Testing performed by : [address], [address] AST 30 10 - 45 Units/L KISHA Comment: Hemolyzed; result may be falsely elevated Testing performed by: [address] [address] Blood 05/30/2024 6:56 PM CDT 05/30/2024 7:03 PM CDT us Bhupinder WINN LAB BLOOD ORDERABL ES Final Result Performing Organization Address [facility] Phone Number [place] [address] [facility] Department [place] [address] * POCT glucose (05/07/2024 8:36 AM CDT) [facility] Signature Glucose, POC 172 70 - 199 mg/dL Comment:Testing performed by : [address] [address] Blood 05/07/2024 8:36 AM CDT 05/07/2024 8:36 AM CDT Tom Polanco MD LAB POCT ORDERABLES - DEVICE Final Result KISHA 4500 [facility] Department [place] [address] * (ABNORMAL) Differential, auto (05/07/2024 5:17 AM CDT) Neutrophil abs 6.9(H) 1.5 - 6.5 K/cumm Comment:Testing performed by : [address] [address] Imm gran abs 0.0 0.0 - 0.1 K/cumm KISHA Comment:Testing performed by : [address] [address] Lymphocyte abs 2.1 0.8 - 3.3 K/cumm KISHA Comment:Testing performed by : [address] [address] Monocyte abs 1.4(H) 0.2 - 0.8 K/cumm KISHA Comment:Testing performed by : [address] [address] Eosinophil abs 0.0 0.0 - 0.5 K/cumm KISHA Comment:Testing performed by : [address] [address] Basophil abs 0.0 0.0 - 0.1 K/cumm KISHA Comment:Testing performed by : [address] [address] Neutrophil pct 66.0 % KISHA Comment: Interpretive Data Percent cell count reference ranges are not reported, since discordance with absolute values may lead to misinterpretation of CBC data. Current Interpretive Data was last revised on 2017. Testing performed by: [address] [address] Imm gran pct 0.4 % KISHA Comment: Interpretive Data Percent cell count reference ranges are not reported, since discordance with absolute values may lead to misinterpretation of CBC data. Current Interpretive Data was last revised on 2017. Testing performed by: [address] [address] Lymphocyte pct 19.9 % KISHA Comment: Interpretive Data Percent cell count reference ranges are not reported, since discordance with absolute values may lead to misinterpretation of CBC data. Current Interpretive Data was last revised on 2017. Testing performed by: [address] [address] Monocyte pct 13.6 % KISHA Comment: Interpretive Data Percent cell count reference ranges are not reported, since discordance with absolute values may lead to misinterpretation of CBC data. Current Interpretive Data was last revised on 2017. Testing performed by: [address] [address] Eosinophil pct 0.0 % KISHA Comment: Interpretive Data Percent cell count reference ranges are not reported, since discordance with absolute values may lead to misinterpretation of CBC data. Current Interpretive Data was last revised on 2017. Testing performed by: [address] [address] Basophil pct 0.1 % KISHA Comment: Interpretive Data Percent cell count reference ranges are not reported, since discordance with absolute values may lead to misinterpretation of CBC data. Current Interpretive Data was last revised on 2017. Testing performed by: [address] [address] Blood 05/07/2024 5:17 AM CDT 05/07/2024 5:52 AM CDT us Tom Polanco MD LAB BLOOD ORDERABLES F inal Result [facility] 3057 [facility] Department [place] [address] * (ABNORMAL) CBC with auto differential (05/07/2024 5:17 AM CDT) WBC 10.4(H) 3.8 - 9.9 K/cumm Comment:Testing performed by : [address] [address] Hgb 10.4(L) 11.9 - 15.5 g/dL KISHA Comment:Testing performed by : [address] [place] [address] Hct 30.5(L) 35.6 - 45.5 % KISHA Comment:Testing performed by : [address], [address] Plt 305 150 - 400 K/cumm KISHA Comment:Testing performed by : [address], [address] MPV 9.6 9.1 - 12.3 fL KISHA Comment:Testing performed by : [address], [address] RBC 3.53(L) 3.90 - 5.20 M/cumm KISHA Comment:Testing performed by : [address], [address] MCV 86.4 81.3 - 96.4 fL KISHA Comment:Testing performed by : [address], [address] MCH 29.5 27.1 - 33.3 pg KISHA Comment:Testing performed by : [address], [address] MCHC 34.1 32.3 - 35.7 g/dL KISHA Comment:Testing performed by : [address], [address] RDW CV 15.1(H) 11.1 - 14.9 % KISHA Comment:Testing performed by : [address], [address] RDW SD 46.0 35.7 - 48.1 fL KISHA Comment:Testing performed by : [address], [address] NRBC abs 0.00 0.00 - 0.01 K/cumm KISHA Comment:Testing performed by : [address], [address] Blood 05/07/2024 5:17 AM CDT 05/07/2024 5:52 AM CDT us Tom Polanco MD LAB BLOOD ORDERABLES F inal Result Performing Organization Address City/[facility] Co de Phone Number DANNY[address] [address] * POCT glucose (05/07/2024 4:53 AM CDT) Glucose, POC 160 70 - 199 mg/dL Comment:Testing performed by : [address] [address] Blood 05/07/2024 4:53 AM CDT 05/07/2024 4:53 AM CDT Tom Polanco MD LAB POCT ORDERABLES - DEVICE Final Result Performing Organization Address [facility] Co de Phone Number DANNY[address] [address] * POCT glucose (05/07/2024 12: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) Glucose, POC 113 70 - 199 mg/dL Comment:Testing performed by : [address] [address] Blood 05/07/2024 12:0 9 AM ESTATE PLANNING ATTORNEY 05/07/2024 12: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 us Tom Polanco MD LAB POCT ORDERABLES - DEVICE Final Result Performing Organization Address [facility] Co de Phone Number [address] [address] * (ABNORMAL) Hemoglobin A1c (03/31/2024 3:12 PM ESTATE PLANNING ATTORNEY) Hgb A1C 5.9(H) 4.0 - 5.6 % Comment:Testing performed by : [address] [address] Estimated Average Glucose 123 mg/dL KISHA Comment: The ADA recommends reporting an estimated Average Glucose (eAG) with all Hemoglobin A1c results using the equation derived from a study of 507 normal and diabetic adults. Minority populations were underrepresented and children were not included. (Diabetes Care 31:4685-8123, 2008). The eAG is not equivalent to a fasting glucose. Testing performed by: [facility], [address] [place] [address], [place]., [address] Blood 03/31/2024 3:12 PM ESTATE PLANNING ATTORNEY 03/31/2024 3:22 PM ESTATE PLANNING ATTORNEY Narrative KISHA - 03/31/2024 5:28 PM ESTATE PLANNING ATTORNEY PRE SURGICAL TESTING ONLY--04/07/2024--Surgeons and Role: * Aram Oro MD - Primary-@ANPROCEDURE@ us Eleazar Ibrahim MD LAB BLOOD ORDERABL ES Final Result KISHA 1322 [facility] [place] [address] * POCT lipid panel (08/19/2021 [...] COVID infection. 06/19/[address] [place] [address] MEDICARE RAILROAD [facility] MEDIC[employer]RO[employer] [facility] MEDICARE RAILROAD [employer] Advance Directives For more information, please contact: [phone] * Full Code (Latest Code Status on File) Date Activated Date Inactivated Comments 06/05/2024 7:54 AM 06/09/2024 5:12 PM * Full Code Date Activated Date Inactivated Comments 05/04/2024 10:26 PM 05/07/2024 3:47 PM Care Teams Corrections Unit Supervisor Relationship Specialty Start Date End Date David Pruitt MD [address] [facility] [address] [place] [address] [address] [place] [address] PCP - General Family Medicine 06/30/17 Aram Oro MD [address] [place] [address] [address] [place], [place] [id number] Consulting Physician Surgery 02/29/24 David Fried MD 14[address] [facility] [address] [place], [place] [id number] Radiation Oncologist Radiation Oncology 02/29/24 [place] [address] [place] [address], [place] [address] Consulting Physician Interventional Cardiology 03/17/24
--- OUTSIDE RECORDS SUMMARY | 2024-08-07 16:07 | XMS_ITS | Continuity of Care Document ---
Author Organization [facility] Address [address] [place] [address] utive [address] [place] [address] Phone Care Team Providers Care Wound Care Rn Name Role Phone Felipe OD, Andrew Unavailable Unavailable Advance Directives Directive Yes / No Effective Date File Name No Information Encounters Encounter Description Practice Location Reason(s) For Visit Diagnoses Date Provider Providers Copied on Encounter [facility], [address], [place], [place], [id number], [place] tel:[phone] [facility] No Information Sep-2 3-200 1 Felipe OD Andrew. [address] , [address], [place], [address], [place]. tel:[phone] Family History Family Member Type Diagnosis Age [...]
--- OUTSIDE RECORDS SUMMARY | 2024-08-07 16:08 | XMS_ITS | Encounter Summary ---
Author Organization [facility] Healthcare Address [address] [place] [address] Care Team Providers Care Air Route Traffic Controller Name Role Phone David Priutt MD Primary Care Provider Aram Oro MD Unavailable [phone] David Fried MD Unavailable [phone] Chema Foreman MD Unavailable [phone] Encounter Details Date Type Department Care Team (Late st Contact Info) Description 08/04/2024 Completion of Therapy [facility] Medical Office Building 2 Radiation Oncology [address] [place] [phone] David Fried MD [address] [place] [phone] Social History Tobacco Use Types Packs/Day Years Used Date Smoking Tobacco: Former Smokeless Tobacco: Never Comments:Quit 1996 Alcohol Use Standard Drinks/Week Comments No 0 (1 standard drink = 0.6 oz pur e alcohol) [facility] Utilities Answer Date Recorded In the past 12 months has [employer] electric, gas, oil, or water company threatened [...] often do you attend chur ch or amish services? Never 06/05/2024 Do you belong to any clubs o r organizations such as moravian groups, unions, fraternal or athletic groups, or [...] any time in the past 12 m [facility], were you homeless or living in a [place] health care facility (including now)? No 06/05/2024 Personal Safety Answer Date Recorded Have you ever been in or are you currently in a harmful physical or emotional relationship or is someone making you feel afraid or unsafe? 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 provider found Date of Service: 08/04/2024 RADIATION ONCOLOGY COMPLETION OF THERAPY (COT) Identifying Data: Cancer Staging Malignant neoplasm of upper-outer quadrant of right breast in female, estrogen receptor positive (HCC) Staging form: Breast, AJCC 8th Edition - Clinical stage from 03/11/2024: Stage IA (cT1c, cN0, cM0, G1, ER+, MT+, HER2: Equivocal) - Signed by David Fried MD on 03/11/2024 - Pathologic stage from 07/19/2024: pT1c, cN0, cM0, G2, ER+, MT+, HER2- - Signed by David Fried MD on 07/19/2024 Treatment Delivered: Start Date: 07/31/2024 End Date: 08/04/2024 Radiation Treatments No active radiation treatments to show. Radiation Treatments Historical Plans Rt Breast Most recent treatment: Dose planned: 520 cGy (fraction 5 on 08/04/2024) Total: Dose planned: 2,600 cGy Elapsed Days: 4 Reference Points [id number] Most recent treatment: Dose given: 0 cGy (on 08/04/2024) Total: Dose given: 2,600 cGy Elapsed Days: 4 Concurrent Therapy: None Pain Plan: RAD ONC PAIN PLAN: The patient is not currently having any pain that requires changes in pain management. Tolerance to Treatment: Ms. Goldstein tolerated the treatment well. Patient did experience some expected mild skin irritation.Encouraged to continue utilizing lotion frequently. Disposition: Follow up in clinic in 6 weeks. Post treatment skin care instructions given. Patient was instructed to call with any concerns prior to scheduled follow up visit. David Fried MD supervised the patient???s radiation treatment as summarized. Cosigned by David Fried MD at 08/07/2024 3:11 PM CDT documented in this encounter Plan of Treatment Not on file documented as of this encounter Visit Diagnoses Not on filedocumented in this encounter Additional Health Concerns Infection Onset Date Last Indicated Resolved Time COVID: Recovered Comment:Added based on recent COVID infection. 06/19/2024 07/04/2024 documented as of this encounter Care Teams Air Route Traffic Controller Relationship Specialty Start Date End Date David Pruitt MD [address] [place] [address] PCP - General Family Medicine 06/30/17 Aram Oro MD [facility]4 [facility] [address] [place], [place] [phone] Consulting Physician Surgery 02/29/24 David Fried MD 1418 [facility] [address] [place], [place] [address] Radiation Oncologist Radiation Oncology 02/29/24 [place] [address] [place] [address], [place] [address] Consulting Physician Interventional Cardiology 03/17/24 documented as of this encounter
--- OUTSIDE RECORDS SUMMARY | 2024-08-07 16:08 | XMS_ITS | Referral Summary ---
Author Organization [facility] al Address [address] [place] [address] Care Team Providers Care Bacteriologist Dairy Name Role Phone David Pruitt MD Primary Care Provider Aram Oro MD Unavailable [phone] David Fried MD Unavailable [phone] Chema Foreman MD Unavailable Encounters Date Type Department Care Team Description 08/04/2024 Completion of Therapy [facility] Medical Office Building 2 Radiation Oncology [address] [place] [address] [id number] David Fried MD 08/04/2024 Orders Only RAD ONC TREATMENTS Miscellaneous, Not In File 08/04/2024 OTV [facility] Medical [facility] Building 2 Radiation Oncology [address] [place] [address] 40000 David Fried MD 08/04/2024 Orders Only RAD ONC TREATMENTS Miscellaneous, Not In File 08/04/2024 2:00 PM CDT Treatment [facility] Medical Office Building 2 Radiation Oncology [address] [place] [address] 36833 David Fried MD 08/03/2024 Orders Only RAD ONC TREATMENTS Miscellaneous, Not In File 08/03/2024 2:00 PM CDT Treatment [facility] Medical Office Building 2 Radiation Oncology [address] [place] [address] 27811 08/02/2024 Orders Only RAD ONC TREATMENTS Miscellaneous, Not In File 08/02/2024 1:30 PM CDT Treatment [facility] Medical Office Building 2 Radiation Oncology [address] [place] [address] 81030 08/01/2024 Orders Only RAD ONC TREATMENTS Miscellaneous, Not In File 08/01/2024 1:30 PM CDT Treatment [facility] Medical Office Building 2 Radiation Oncology [address] [place] [address] 70452 07/31/2024 Orders Only RAD ONC TREATMENTS Miscellaneous, Not In File 07/31/2024 1:30 PM CDT Treatment [facility] Medical Office Building 2 Radiation Oncology [address] [place] [address] 13455 David Fried MD 07/31/2024 1:15 PM CDT Treatment [facility] Medical Office [facility] 2 Radiation Oncology [address] [place] [address] 664[address] David Fried MD 07/31/2024 2:17 PM CDT - 07/31/2024 11:59 PM CDT Hospital Encounter [facility] Respiratory Therapy [address] [place] [id number] Colt Landis MD Asthma-COPD overlap syndrome (HCC) Discharge Disposition: Discharge to home or self care 07/28/2024 5:25 PM CDT Treatment [facility] Medical Office Building 2 Radiation Oncology [address] [place] [address] 07/27/2024 7:25 PM CDT Treatment [facility] Medical Office Building 2 Radiation Oncology [address] [place] [address] 52513 07/19/2024 1:30 PM CDT Treatment [facility] Medical Office Building 2 Radiation Oncology [address] [place] [address] [phone] David Fried MD 07/19/2024 1:00 PM CDT Office Visit [facility] Medical Office Building 2 Radiation Oncology [address] [place] [address] David Fried MD Malignant neoplasm of upper-outer quadrant of right breast in female, estrogen receptor positive (HCC) (Primary Dx) 07/05/2024 2:45 PM CDT Office Visit [facility] Pulmonary [place] [address] [facility] [address] [place] [address] Colt Landis MD Asthma-COPD overlap syndrome (HCC) (Primary Dx); Nocturnal hypoxia; Paroxysmal atrial fibrillation (HCC); Gastroesophageal reflux disease without esophagitis; Primary hypertension 06/12/2024 4:00 PM CDT Office Visit [facility] Oncology [address] [place] [address] [address] [place] [address] Lobo Driscoll DO Malignant neoplasm of upper-outer quadrant of right breast in female, estrogen receptor positive (HCC) (Primary Dx) 06/02/2024 7:31 PM CDT - 06/09/2024 1:11 PM CDT Hospital Encounter [facility] 5 Med Surg [facility] [place] [address] Reynaldo Cuevas DO Sada, Kahmalia-Kalee Conceptia, MD [...] CDT - 05/30/2024 11:45 PM CDT Emergency [facility] Emergency Department [facility] [place], [place] [phone] Forrest Mitchell Jr., MD Hematoma of right breast (Primary Dx); Anticoagulation adequate with anticoagulant therapy; History of atrial fibrillation; History of right breast cancer Discharge Disposition: Discharge to home or self care 05/18/2024 Telephone [facility] Cardiology [address] [place] [address] Chema Foreman MD 05/04/2024 6:59 PM INTERNAL CONTROLS MANAGER - 05/07/2024 11:45 AM CDT Hospital Encounter [facility] 5 Med Surg [address] [place] [address] Katty Armenta MD Singh, Anjanya [...] tightness,Other (See comments) Medium 06/30/2017 Chest pain [place]-3 Fatty Acids Rash,Hives High 01/27/2018 Prednisone Other [...] tabletIndications: Mixed hyperlipidemia,Cor onary artery disease involving [place] coronary artery of [place] heart without angina pectoris Take 1 tablet [...] from 07/19/2024: pT1c, cN0, cM0, G2, ER+, FL+, HER2- - Signed by David Fried MD [...] 01/27/2018 Assessment & Plan (01/27/2018 2:58 PM INTERNAL CONTROLS MANAGER): Reviewed chart and discussed blood work with patient. She denies any GI sx and says EGD 2 yrs ago and [id number] this year. Discussed posssibility of gi blood loss and offered EGD/Colonoscopy. 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 Never 06/05/2024 Do you belong to any clubs o r organizations such as anabaptism groups, unions, fraternal or athletic groups, or [...] any time in the past 12 m [facility], were you homeless or living in a fci (including now)? No 06/05/2024 Personal Safety Answer Date Recorded Have you ever been in or are you currently in a harmful physical or emotional relationship or is someone making you feel afraid or unsafe? Denies 06/02/2024 Comments No Sex and Gender Information Value Date Recorded Sex Assigned at Not on file Legal Sex Female 12:20 AM INTERNAL CONTROLS MANAGER Gender Identity Female 12/31/2023 2:40 PM CDT [...] on file Medical Devices Implanted Type Area Senior Firewall Engineer Device Identifier Shelf Expiration Date Model / Serial / Lot [employer] Fr[employer] 20ga 5cm Reposition J Curve Wire Centimeter Andrew Stabilizer [id number] - [id number] Implanted:Qty: 1 on 04/07/2024 by Eleazar Gavin MD at [facility] Right: Breast [employer] [id number] 01/12/2029 [id number] / / [id number] Procedures Procedure Name Priority Date/Time Associated Diagnosis [...] GLUCOSE DEVICE Routine 05/07/2024 1 2:09 AM INTERNAL CONTROLS MANAGER HEMOGLOBIN A1C Routine 03/31/2024 3:12 PM INTERNAL CONTROLS MANAGER Pre-op testing Diabetes mellitus due to underlying [...] ORD ERABLES Final Result Performing Organization Address [facility] Co de Phone Number ALANNA * RAD [...] 1.31 1.16 - 2.15 L [facility] [id number] 56.88(A) 62.59 - 90.37 % [facility] HRI80-10% POST 0.75 0.58 - 2.64 L/s [facility] PEF POST 2.74(A) 3.39 - 6.35 L/s [facility] DLCOc SB 9.13(A) 11.60 - 23.07 ml/(min*mm Hg) [facility] DLCO/VA PRE 3.29 2.42 - 5.70 ml/(min*mm Hg*L) [facility] VA 2.78(A) 4.12 - 4.12 L [facility] TLC PRE 4.75 3.28 - 5.26 L [facility] VC PRE 2.11 1.21 - 2.59 L [facility] IC PRE 1.48(A) 1.45 - 1.45 L [facility] FRC PL PRE 3.27 1.67 - 3.32 L [facility] ERV PRE 0.63(A) 0.46 - 0.46 L [facility] RV PRE 2.64(A) 1.46 - 2.61 L [facility] VTG 3.29 L [facility] RAW PRE 5.76(A) 3.06 - 3.06 cmH2O*s/L [facility] FVC PRE 1.84 1.52 - 2.87 L [facility] FEV1 PRE 1.12(A) 1.16 - 2.15 L [facility] [id number] 60.63(A) 62.59 - 90.37 % [facility] OYC28-20% PRE 0.66 0.58 - 2.64 L/s [facility] [...] SESSION SUMMARY (07/31/2024 1:41 PM CDT) Pathologist [facility] Emergency Department Course Name [id number] ARIA Course Plan [...] * POCT glucose (06/09/2024 8:36 AM CDT) [facility] Glucose, POC 108 70 - 199 mg/dL Comment:Testing performed by : [facility], [address] [place] [address], [place]., [address] Blood 06/09/2024 8:36 AM CDT 06/09/2024 8:36 AM CDT us Shaw Mitchell MD LAB POCT ORDERABLES - DEVICE Final Result [facility] [place] [address] * eGFR (06/09/2024 5:56 AM [...] was last reviewed 2020. Testing performed by: [address] [address] Blood 06/09/2024 5:56 AM CDT 06/09/2024 6:12 AM CDT Colt Landis MD LAB BLOOD ORDERABLES F inal Result [facility] [address] [facility] [place] [address] * (ABNORMAL) Comprehensive metabolic panel (06/09/2024 5:56 AM CDT) Sodium 139 135 - 145 mmol/L Comment:Testing performed by : [address] [address] Potassium, pl 3.9 3.3 - 4.9 mmol/L [facility] [place] Comment:Testing performed by : [address] [address] Chloride 104 97 - 110 mmol/L KISHA Comment:Testing performed by : [address] [address] CO2 28 22 - 32 mmol/L [facility] Comment:Testing performed by : [address] [address] Anion gap 7 2 - 15 mmol/L [facility] Comment:Testing performed by : [address], [place]., [address] BUN 19 6 - 25 mg/dL KISHA Comment:Testing performed by : [address] [address] Creatinine 0.40(L) 0.60 - 1.10 mg/dL [facility] Comment:Testing performed by : [address] [address] Glucose 93 70 - 199 mg/dL [facility] Comment: Delta - Results Reviewed Interpretive Data [...] was last revised 2022. Testing performed by: [address] [address] Calcium 7.9(L) 8.5 - 10.3 mg/dL [facility] Comment:Testing performed by : [address] [address] Bilirubin, total 0.3 0.1 - 1.2 mg/dL [facility] Comment:Testing performed by : [address] [address] Protein, pl 5.3(L) 6.5 - 8.5 g/dL KISHA Comment:Testing performed by : [address] [address] Albumin 3.0(L) 3.5 - 5.0 g/dL K[facility]HA Comment:Testing performed by : [address] [address] Alk phos 78 40 - 130 Units/L K[facility]HA Comment:Testing performed by : [address] [address] ALT 14 7 - 45 Units/L KISHA Comment:Testing performed by : [address] [address] AST 12 10 - 45 Units/L KSIHA Comment:Testing performed by : [address] [address] Blood 06/09/2024 5:56 AM CDT 06/09/2024 6:12 AM CDT us Colt Landis MD LAB BLOOD ORDERABLES F inal Result Performing Organization Address City/[facility] Co de Phone Number [address] [place] [address] * POCT glucose (06/08/2024 8:25 PM CDT) [facility] Glucose, POC 185 70 - 199 mg/dL Comment:Testing performed by : [address], [address] Blood 06/08/2024 8:25 PM CDT 06/08/2024 8:25 PM CDT us Shaw Mitchell MD LAB POCT ORDERABLES - DEVICE Final Result Performing Organization Address City/[facility]/ZIP Co de Phone Number [address] [employer] [place] [address] * eGFR (06/08/2024 5:51 PM CDT) [facility] eGFR >90 >=60 mL/min/1. 73 m2 [...] was last reviewed 2020. Testing performed by: [address] [address] Blood 06/08/2024 5:51 PM CDT 06/08/2024 5:58 PM CDT us Shaw Mitchell MD LAB BLOOD ORDERABLES Final R esult [facility] [place] [address] * (ABNORMAL) Basic metabolic panel (06/08/2024 5:51 PM CDT) Sodium 136 135 - 145 mmol/L Comment:Testing performed by : [address] [address] Potassium, pl 4.1 3.3 - 4.9 mmol/L [facility] [place] Comment: Delta - Results Reviewed Testing performed by: [address] [address] Chloride 101 97 - 110 mmol/L [facility] [place] Comment:Testing performed by : [address] [address] CO2 26 22 - 32 mmol/L [facility] [place] Comment:Testing performed by : [address] [address] Anion gap 9 2 - 15 mmol/L [facility] [place] Comment:Testing performed by : [address] [address] BUN 23 6 - 25 mg/dL [facility] [place] Comment:Testing performed by : [address] [address] Creatinine 0.53(L) 0.60 - 1.10 mg/dL K[facility]HA Comment:Testing performed by : [address] [address] Glucose 247(H) 70 - 199 mg/dL KISHA [...] was last revised 2022. Testing performed by: [address] [address] Calcium 8.5 8.5 - 10.3 mg/dL [facility]HA Comment:Testing performed by : [address] [address] Blood 06/08/2024 5:51 PM CDT 06/08/2024 5:58 PM CDT us Shaw Mitchell MD LAB BLOOD ORDERABLES Final R esult Performing Organization Address City/State/[facility] Co de Phone Number [facility] [address] [facility] [place] [address] * (ABNORMAL) POCT glucose (06/08/2024 5:09 PM CDT) Glucose, POC 233(H) 70 - 199 mg/dL Comment:Testing performed by : [address] [address] Blood 06/08/2024 5:09 PM CDT 06/08/2024 5:09 PM CDT Shaw Mitchell MD LAB POCT ORDERABLES - DEVICE Final Result Performing Organization Address City/[facility] Co de Phone Number KISHA [address] [place] [address] * (ABNORMAL) POCT glucose (06/08/2024 12:12 PM CDT) [facility] Glucose, POC 305(H) 70 - 199 mg/dL Comment:Testing performed by : [address] [address] Blood 06/08/2024 12:1 2 PM CDT 06/08/2024 12:12 PM CDT us Shaw Mitchell MD LAB POCT ORDERABLES - DEVICE Final Result Performing Organization Address [facility] Co de Phone Number KISHA [address] [address] * eGFR (06/08/2024 10:29 AM CDT) [facility] eGFR >90 >=60 mL/min/1. 73 m2 [...] was last reviewed 2020. Testing performed by: [address] [address] Blood 06/08/2024 10:2 9 AM CDT 06/08/2024 10:33 AM CDT us Shaw Mitchell MD LAB BLOOD ORDERABLES Final R esult [facility] [place] [address] [facility] [place] [address] * (ABNORMAL) Differential, auto (06/08/2024 10:29 AM CDT) Neutrophil abs 8.02(H) 1.50 - 6.50 K/cumm Comment:Testing performed by : [address] [address] Imm gran abs 0.08 0.00 - 0.10 K/cumm KISHA Comment:Testing performed by : [address] [address] Lymphocyte abs 2.42 0.80 - 3.30 K/cumm KISHA Comment:Testing performed by : [address] [address] Monocyte abs 1.68(H) 0.20 - 0.80 K/cumm KISHA Comment:Testing performed by : [address] [address] Eosinophil abs 0.00 0.00 - 0.50 K/cumm KISHA Comment:Testing performed by : [address] [address] Basophil abs 0.01 0.00 - 0.10 K/cumm KISHA Comment:Testing performed by : [address] [address] Neutrophil pct 65.6 % KISHA Comment: Interpretive Data Percent cell count reference ranges are not reported, since discordance with absolute values may lead to misinterpretation of CBC data. Current Interpretive Data was last revised on 2017. Testing performed by: [address] [address] Imm gran pct 0.7 % KISHA Comment: Interpretive Data Percent cell count reference ranges are not reported, since discordance with absolute values may lead to misinterpretation of CBC data. Current Interpretive Data was last revised on 2017. Testing performed by: [address] [address] Lymphocyte pct 19.8 % [facility] Comment: Interpretive Data Percent cell count reference ranges are not reported, since discordance with absolute values may lead to misinterpretation of CBC data. Current Interpretive Data was last revised on 2017. Testing performed by: [address] [address] Monocyte pct 13.8 % [facility] Comment: Interpretive Data Percent cell count reference ranges are not reported, since discordance with absolute values may lead to misinterpretation of CBC data. Current Interpretive Data was last revised on 2017. Testing performed by: [address] [address] Eosinophil pct 0.0 % [facility] Comment: Interpretive Data Percent cell count reference ranges are not reported, since discordance with absolute values may lead to misinterpretation of CBC data. Current Interpretive Data was last revised on 2017. Testing performed by: [address] [address] Basophil pct 0.1 % [facility] Comment: Interpretive Data Percent cell count reference ranges are not reported, since discordance with absolute values may lead to misinterpretation of CBC data. Current Interpretive Data was last revised on 2017. Testing performed by: [address] [address] Blood 06/08/2024 10:2 9 AM CDT 06/08/2024 10:33 AM CDT us Shaw Mitchell MD LAB BLOOD ORDERABLES Final R esult [facility] [address] [facility] [place] [address] * (ABNORMAL) CBC with auto differential (06/08/2024 10:29 AM CDT) WBC 12.21(H) 3.80 - 9.90 K/cumm Comment:Testing performed by : [address] [address] Hgb 9.2(L) 11.9 - 15.5 g/dL KISHA Comment:Testing performed by : [address] [address] Hct 28.7(L) 35.6 - 45.5 % K[facility]HA Comment:Testing performed by : [address] [address] Plt 349 150 - 400 K/cumm KISHA Comment:Testing performed by : [address] [address] MPV 9.5 9.1 - 12.3 fL K[facility]HA Comment:Testing performed by : [address] [address] RBC 3.27(L) 3.90 - 5.20 M/cumm KISHA Comment:Testing performed by : [address] [address] MCV 87.8 81.3 - 96.4 fL K[facility]HA Comment:Testing performed by : [address] [address] MCH 28.1 27.1 - 33.3 pg KISHA Comment:Testing performed by : [address] [address] MCHC 32.1(L) 32.3 - 35.7 g/dL KISHA Comment:Testing performed by : [address] [address] RDW CV 16.4(H) 11.1 - 14.9 % K[facility]HA Comment:Testing performed by : [address] [address] RDW SD 51.7(H) 35.7 - 48.1 fL [facility]HA Comment:Testing performed by : [address] [address] NRBC abs 0.00 0.00 - 0.01 K/cumm KISHA Comment:Testing performed by : [address] [address] Blood 06/08/2024 10:2 9 AM CDT 06/08/2024 10:33 AM CDT Shaw Mitchell MD LAB BLOOD ORDERABLES Final R esult Performing Organization Address City/[facility] Co de Phone Number KISHA [address] [address] * Magnesium (06/08/2024 10:29 AM CDT) Pathologist [facility] Emergency Department Magnesium 2.3 1.4 - 2.5 mg/dL Comment:Testing performed by : [address] [address] Blood 06/08/2024 10:2 9 AM CDT 06/08/2024 10:33 AM CDT Shaw Mitchell MD LAB BLOOD ORDERABLES Final R [facility] Performing Organization Address [facility] de Phone Number KISHA [address] [address] * (ABNORMAL) Comprehensive metabolic panel (06/08/2024 10:29 AM CDT) Pathologist [facility] Emergency Department Sodium 137 135 - 145 mmol/L Comment:Testing performed by : [address] [address] Potassium, pl 3.0(L) 3.3 - 4.9 mmol/L K[facility]HA Comment:Testing performed by : [address] [address] Chloride 100 97 - 110 mmol/L K[facility]HA Comment:Testing performed by : [address] [address] CO2 27 22 - 32 mmol/L [facility] Comment:Testing performed by : [address] [address] Anion gap 10 2 - 15 mmol/L [facility] Comment:Testing performed by : [address] [address] BUN 21 6 - 25 mg/dL [facility]HA Comment:Testing performed by : [address] [address] Creatinine 0.53(L) 0.60 - 1.10 mg/dL [facility] Comment:Testing performed by : [address] [address] Glucose 159 70 - 199 mg/dL [facility] Comment: Interpretive Data Fasting glucose >/= 126 [...] was last revised 2022. Testing performed by: [address] [address] Calcium 8.4(L) 8.5 - 10.3 mg/dL [facility] Comment:Testing performed by : [address] [address] Bilirubin, total 0.2 0.1 - 1.2 mg/dL [facility] Comment:Testing performed by : [address] [address] Protein, pl 5.9(L) 6.5 - 8.5 g/dL [facility] Comment:Testing performed by : [address] [address] Albumin 3.5 3.5 - 5.0 g/dL [facility] Comment:Testing performed by : [address] [address] Alk phos 85 40 - 130 Units/L [facility] Comment:Testing performed by : [address] [address] ALT 19 7 - 45 Units/L [facility] Comment:Testing performed by : [address] [address] AST 21 10 - 45 Units/L [facility] Comment:Testing performed by : [address] [address] Blood 06/08/2024 10:2 9 AM CDT 06/08/2024 10:33 AM CDT Shaw Mitchell MD LAB BLOOD ORDERABLES Final R esult Performing Organization Address [facility] Co de Phone Number KISHA [address] [place] [address] * POCT glucose (06/08/2024 9:39 AM CDT) Glucose, POC 101 70 - 199 mg/dL Comment:Testing performed by : [address] [address] Blood 06/08/2024 9:39 AM CDT 06/08/2024 9:39 AM CDT Shaw Mitchell MD LAB POCT ORDERABLES - DEVICE Final Result Performing Organization Address [facility] de Phone Number [address] [address] * POCT glucose (06/08/2024 8:17 AM CDT) Glucose, POC 72 70 - 199 mg/dL Comment:Testing performed by : [address] [address] Blood 06/08/2024 8:17 AM CDT 06/08/2024 8:17 AM CDT Shaw Mitchell MD LAB POCT ORDERABLES - DEVICE Final Result Performing Organization Address [facility] Co de Phone Number [address] [address] * eGFR (06/08/2024 5:07 AM CDT) [facility] eGFR >90 >=60 mL/min/1. 73 m2 [...] was last reviewed 2020. Testing performed by: [address] [address] Blood 06/08/2024 5:07 AM CDT 06/08/2024 5:27 AM CDT Colt Landis MD LAB BLOOD ORDERABLES F inal Result [place] 471531 [facility] Department of Laboratories [place], [place] [id number] * (ABNORMAL) Comprehensive metabolic panel (06/08/2024 5:07 AM CDT) Sodium 138 135 - 145 mmol/L Comment:Testing performed by : [address] [address] Potassium, pl 3.0(L) 3.3 - 4.9 mmol/L [facility] Comment:Testing performed by : [address] [address] Chloride 101 97 - 110 mmol/L [facility]HA Comment:Testing performed by : [address] [address] CO2 28 22 - 32 mmol/L [facility] [place] Comment:Testing performed by : [address] [address] Anion gap 9 2 - 15 mmol/L [facility] [place] Comment:Testing performed by : [address] [address] BUN 23 6 - 25 mg/dL [facility]HA Comment:Testing performed by : [address] [address] Creatinine 0.49(L) 0.60 - 1.10 mg/dL [facility]HA Comment:Testing performed by : [address] [address] Glucose 98 70 - 199 mg/dL KISHA [...] was last revised 2022. Testing performed by: [address] [address] Calcium 8.4(L) 8.5 - 10.3 mg/dL [facility]ELVIN Comment:Testing performed by : [address] [address] Bilirubin, total 0.2 0.1 - 1.2 mg/dL [facility] Comment:Testing performed by : [address] [address] Protein, pl 5.8(L) 6.5 - 8.5 g/dL K[facility]HA Comment:Testing performed by : [address] [address] Albumin 3.4(L) 3.5 - 5.0 g/dL [facility]IN Comment:Testing performed by : [address] [address] Alk phos 95 40 - 130 Units/L [facility]HA Comment:Testing performed by : [address] [address] ALT 19 7 - 45 Units/L [facility] Comment:Testing performed by : [address] [address] AST 20 10 - 45 Units/L K[facility]HA Comment:Testing performed by : [address] [address] Blood 06/08/2024 5:07 AM CDT 06/08/2024 5:27 AM CDT Colt Landis MD LAB BLOOD ORDERABLES F inal Result Performing Organization Address City/[facility]/ZIP Co de Phone Number [address] [place] [address] * (ABNORMAL) POCT glucose (06/08/2024 12:56 AM CDT) Glucose, POC 217(H) 70 - 199 mg/dL Comment:Testing performed by : [address] [address] Blood 06/08/2024 12:5 6 AM CDT 06/08/2024 12:56 AM CDT Shaw Mitchell MD LAB POCT ORDERABLES - DEVICE Final Result Performing Organization Address [facility] Co de Phone Number [address] [place] [address] * POCT glucose (06/07/2024 10:05 PM CDT) Glucose, POC 170 70 - 199 mg/dL Comment:Testing performed by : [address] [address] Blood 06/07/2024 10:0 5 PM CDT 06/07/2024 10:05 PM CDT Shaw Mitchell MD LAB POCT ORDERABLES - DEVICE Final Result Performing Organization Address City/[facility] Co de Phone Number [address] [place] [address] * POCT glucose (06/07/2024 9:05 PM CDT) Glucose, POC 89 70 - 199 mg/dL Comment:Testing performed by : [address] [address] Glucose comment 1 RN/MD Notified KISHA Comment:Testing performed by : [address] [address] Blood 06/07/2024 9:05 PM CDT 06/07/2024 9:05 PM CDT Shaw Mitchell MD LAB POCT ORDERABLES - DEVICE Final Result Performing Organization Address City/[facility]/ZIP Co de Phone Number KISHA [facility] [employer] [place] [address] * (ABNORMAL) POCT glucose (06/07/2024 8:29 PM CDT) [facility] Signature Glucose, POC 65(L) 70 - 199 mg/dL Comment:Testing performed by : [address] [address] Glucose comment 1 RN/ Notified KISHA Comment:Testing performed by : [address] [address] Blood 06/07/2024 8:29 PM CDT 06/07/2024 8:29 PM CDT Shaw Mitchell MD LAB POCT ORDERABLES - DEVICE Final Result [place] [id number] [facility] [place] [address] * POCT glucose (06/07/2024 4:25 PM CDT) Glucose, POC 80 70 - 199 mg/dL Comment:Testing performed by : [address] [address] Glucose comment 1 RN/MD Notified KISHA Comment:Testing performed by : [address] [address] Blood 06/07/2024 4:25 PM CDT 06/07/2024 4:25 PM CDT Shaw Mitchell MD LAB POCT ORDERABLES - DEVICE Final Result Performing Organization Address [facility] de Phone Number KISHA [address] [address] * (ABNORMAL) POCT glucose (06/07/2024 11:34 AM CDT) [facility] Signature Glucose, POC 298(H) 70 - 199 mg/dL Comment:Testing performed by : [facility], [address] [place] [address]., [address] Blood 06/07/2024 11:3 4 AM CDT 06/07/2024 11:34 AM CDT Shaw Mitchell MD LAB POCT ORDERABLES - DEVICE Final Result Performing Organization Address [facility] de Phone Number KISHA [address] [address] * XR Chest 1 View (06/07/2024 8:50 [...] Amy Gomez M.D. FT: FT Report ID: [id number] Reading Location: [id number] Procedure Note Amy Wynne MD - 06/07/2024 [...] Amy Gomez M.D. FT: FT Report ID: [id number] Reading Location: [id number] us Colt Landis MD IMG XR PROCEDURES Radha l Result * (ABNORMAL) POCT glucose (06/07/2024 8:42 AM CDT) [facility] Glucose, POC 207(H) 70 - 199 mg/dL Comment:Testing performed by : [address] [address] Glucose comment 1 Will Repeat Test KISHA [place]NSEND Comment:Testing performed by : [address] [address] Glucose comment 2 RN/MD Notified KISHA [place] Comment:Testing performed by : [address] [address] Blood 06/07/2024 8:42 AM CDT 06/07/2024 8:42 AM CDT us Shaw Mitchell MD LAB POCT ORDERABLES - DEVICE Final Result Performing Organization Address [facility] de Phone Number KISHA [address] [employer] [place] [address] * eGFR (06/07/2024 5:38 AM CDT) eGFR [...] was last reviewed 2020. Testing performed by: [address] [address] Blood 06/07/2024 5:38 AM CDT 06/07/2024 6:02 AM CDT Colt Landis MD LAB BLOOD ORDERABLES F inal Result Performing Organization Address [facility] Co de Phone Number KISHA [address] [place] [employer] [place] [address] * (ABNORMAL) Differential, auto (06/07/2024 5:38 AM CDT) Neutrophil abs 8.06(H) 1.50 - 6.50 K/cumm Comment:Testing performed by : [address] [address] Imm gran abs 0.08 0.00 - 0.10 K/cumm KISHA Comment:Testing performed by : [address] [address] Lymphocyte abs 1.18 0.80 - 3.30 K/cumm KISHA Comment:Testing performed by : [address] [address] Monocyte abs 1.19(H) 0.20 - 0.80 K/cumm [facility]ELVIN Comment:Testing performed by : [address], [place]., [address] Eosinophil abs 0.00 0.00 - 0.50 K/cumm [facility] Comment:Testing performed by : [address] [address] Basophil abs 0.01 0.00 - 0.10 K/cumm [facility] Comment:Testing performed by : [address] [address] Neutrophil pct 76.6 % [facility] Comment: Interpretive Data Percent cell count reference ranges are not reported, since discordance with absolute values may lead to misinterpretation of CBC data. Current Interpretive Data was last revised on 2017. Testing performed by: [address] [address] Imm gran pct 0.8 % [facility] Comment: Interpretive Data Percent cell count reference ranges are not reported, since discordance with absolute values may lead to misinterpretation of CBC data. Current Interpretive Data was last revised on 2017. Testing performed by: [address] [address] Lymphocyte pct 11.2 % [facility] Comment: Interpretive Data Percent cell count reference ranges are not reported, since discordance with absolute values may lead to misinterpretation of CBC data. Current Interpretive Data was last revised on 2017. Testing performed by: [address] [address] Monocyte pct 11.3 % [facility] Comment: Interpretive Data Percent cell count reference ranges are not reported, since discordance with absolute values may lead to misinterpretation of CBC data. Current Interpretive Data was last revised on 2017. Testing performed by: [address] [address] Eosinophil pct 0.0 % KISHA Comment: Interpretive Data Percent cell count reference ranges are not reported, since discordance with absolute values may lead to misinterpretation of CBC data. Current Interpretive Data was last revised on 2017. Testing performed by: [address] [address] Basophil pct 0.1 % KISHA Comment: Interpretive Data Percent cell count reference ranges are not reported, since discordance with absolute values may lead to misinterpretation of CBC data. Current Interpretive Data was last revised on 2017. Testing performed by: [address] [address] Blood 06/07/2024 5:38 AM CDT 06/07/2024 6:05 AM CDT Colt Landis MD LAB BLOOD ORDERABLES F inal Result KISHA [address] [facility] [place] [address] * Pro B-type natriuretic peptide (06/07/2024 5:38 [...] Last Revised Date: 2017. Testing performed by: [address] [address] Blood 06/07/2024 5:38 AM CDT 06/07/2024 6:02 AM CDT Colt Landis MD LAB BLOOD ORDERABLES F inal Result KISHA [address] [facility] Department [place] [address] * (ABNORMAL) CBC with auto differential (06/07/2024 5:38 AM CDT) WBC 10.52(H) 3.80 - 9.90 K/cumm Comment:Testing performed by : [address] [address] Hgb 8.4(L) 11.9 - 15.5 g/dL KISHA TOWNSEND Comment:Testing performed by : [address] [address] Hct 26.4(L) 35.6 - 45.5 % KISHA [place] Comment:Testing performed by : [address] [address] Plt 351 150 - 400 K/cumm KISHA [place]NS[place] Comment:Testing performed by : [address] [address] MPV 9.7 9.1 - 12.3 fL KISHA T[place]NSEND Comment:Testing performed by : [address] [address] RBC 3.06(L) 3.90 - 5.20 M/cumm KISHA Comment:Testing performed by : [address] [address] MCV 86.3 81.3 - 96.4 fL KISHA Comment:Testing performed by : [address] [address] MCH 27.5 27.1 - 33.3 pg KISHA Comment:Testing performed by : [address] [address] MCHC 31.8(L) 32.3 - 35.7 g/dL KISHA Comment:Testing performed by : [address], [address] RDW CV 16.1(H) 11.1 - 14.9 % KISHA Comment:Testing performed by : [address], [address] RDW SD 49.4(H) 35.7 - 48.1 fL KISHA Comment:Testing performed by : [address] [address] NRBC abs 0.00 0.00 - 0.01 K/cumm KISHA Comment:Testing performed by : [address] [address] Blood 06/07/2024 5:38 AM CDT 06/07/2024 6:05 AM CDT Colt Landis MD LAB BLOOD ORDERABLES F inal Result [facility] [address] [facility] [place] [address] * CRP (acute phase) (06/07/2024 5:38 AM CDT) [facility] CRP 3.4 <=10.0 mg/L Comment:Testing performed by : [address], [address] Blood 06/07/2024 5:38 AM CDT 06/07/2024 6:02 AM CDT us Colt Landis MD LAB BLOOD ORDERABLES F inal Result KISHA [address] [facility] [place] [address] * (ABNORMAL) Comprehensive metabolic panel (06/07/2024 5:38 AM CDT) Sodium 138 135 - 145 mmol/L Comment:Testing performed by : [address] [address] Potassium, pl 3.4 3.3 - 4.9 mmol/L KISHA Comment:Testing performed by : [address] [address] Chloride 99 97 - 110 mmol/L KISHA Comment:Testing performed by : [address] [address] CO2 27 22 - 32 mmol/L KISHA Comment:Testing performed by : [address] [address] Anion gap 12 2 - 15 mmol/L KISHA Comment:Testing performed by : [address] [address] BUN 31(H) 6 - 25 mg/dL KISHA Comment:Testing performed by : [address] [address] Creatinine 0.60 0.60 - 1.10 mg/dL KISHA Comment:Testing performed by : [address] [address] Glucose 242(H) 70 - 199 mg/dL KISHA [...] was last revised 2022. Testing performed by: [address] [address] Calcium 8.1(L) 8.5 - 10.3 mg/dL KISHA Comment:Testing performed by : [address] [address] Bilirubin, total 0.2 0.1 - 1.2 mg/dL KISHA Comment:Testing performed by : [address] [address] Protein, pl 5.8(L) 6.5 - 8.5 g/dL KISHA Comment:Testing performed by : [address] [address] Albumin 3.3(L) 3.5 - 5.0 g/dL KISHA Comment:Testing performed by : [address] [address] Alk phos 110 40 - 130 Units/L KISHA Comment:Testing performed by : [address] [address] ALT 13 7 - 45 Units/L KISHA Comment:Testing performed by : [address] [address] AST 14 10 - 45 Units/L KISHA Comment:Testing performed by : [address] [address] Blood 06/07/2024 5:38 AM CDT 06/07/2024 6:02 AM CDT us Colt Landis MD LAB BLOOD ORDERABLES F inal Result KISHA [address] [facility] [place] [address] * (ABNORMAL) POCT glucose (06/06/2024 8:17 PM CDT) [facility] Glucose, POC 338(H) 70 - 199 mg/dL Comment:Testing performed by : [address] [address] Blood 06/06/2024 8:17 PM CDT 06/06/2024 8:17 PM CDT Shaw Mitchell MD LAB POCT ORDERABLES - DEVICE Final Result Performing Organization Address [facility] de Phone Number DANNY[address] [place] [address] * (ABNORMAL) POCT glucose (06/06/2024 6:45 PM CDT) Glucose, POC 338(H) 70 - 199 mg/dL Comment:Testing performed by : [address] [address] Glucose comment 1 RN/MD Notified KISHA Comment:Testing performed by : [address] [address] Blood 06/06/2024 6:45 PM CDT 06/06/2024 6:45 PM CDT Shaw Mitchell MD LAB POCT ORDERABLES - DEVICE Final Result Performing Organization Address [facility] de Phone Number DANNY[address] [address] * (ABNORMAL) POCT glucose (06/06/2024 4:59 PM CDT) Glucose, POC 499(C) 70 - 199 mg/dL Comment:Testing performed by : [address] [address] Glucose comment 1 RN/MD Notified KISHA Comment:Testing performed by : [address] [address] Blood 06/06/2024 4:59 PM CDT 06/06/2024 4:59 PM CDT Shaw Mitchell MD LAB POCT ORDERABLES - DEVICE Final Result Performing Organization Address [facility] de Phone Number KISHA [address] [address] * (ABNORMAL) POCT glucose (06/06/2024 1:42 PM CDT) Glucose, POC 548(C) 70 - 199 mg/dL Comment:Testing performed by : [address] [address] Glucose comment 1 RN/MD Notified [facility] Comment:Testing performed by : [address] [address] Blood 06/06/2024 1:42 PM CDT 06/06/2024 1:42 PM CDT us Shaw Mitchell MD LAB POCT ORDERABLES - DEVICE Final Result Performing Organization Address [facility] de Phone Number DANNY[address] [address] * (ABNORMAL) POCT glucose (06/06/2024 11:38 AM CDT) Glucose, POC >600(C) 70 - 199 mg/dL Comment:Testing performed by : [facility], [address] [place] [address]., [address] Glucose comment 1 RN/MD Notified [facility] Comment:Testing performed by : [address] [address] Blood 06/06/2024 11:3 8 AM CDT 06/06/2024 11:38 AM CDT us Shaw Mitchell MD LAB POCT ORDERABLES - DEVICE Final Result Performing Organization Address [facility] de Phone Number DANNY[address] [address] * (ABNORMAL) POCT glucose (06/06/2024 10:51 AM CDT) Glucose, POC 527(C) 70 - 199 mg/dL Comment:Testing performed by : [facility], [address] [place] [address]., [address] Glucose comment 1 RN/MD Notified KISHA Comment:Testing performed by : [address] [address] Glucose comment 2 Follow Protocol KISHA TOWNSEND Comment:Testing performed by : [address] [address] Blood 06/06/2024 10:5 1 AM CDT 06/06/2024 10:51 AM CDT Shaw Mitchell MD LAB POCT ORDERABLES - DEVICE Final Result Performing Organization Address [facility] Co de Phone Number KISHA [address] [place] [employer] [place] [address] * (ABNORMAL) POCT glucose (06/06/2024 10:50 AM CDT) [facility] Glucose, POC 548(C) 70 - 199 mg/dL Comment:Testing performed by : [address] [address] Glucose comment 1 Will Repeat Test KISHA TOWNSEND Comment:Testing performed by : [address] [address] Blood 06/06/2024 10:5 0 AM CDT 06/06/2024 10:50 AM CDT us Shaw Mitchell MD LAB POCT ORDERABLES - DEVICE Final Result Performing Organization Address City/[facility] Co de Phone Number [address] [place] [employer] [address] * eGFR (06/06/2024 8:44 AM CDT) [facility] eGFR >90 >=60 mL/min/1. 73 m2 [...] was last reviewed 2020. Testing performed by: [address] [address] Blood 06/06/2024 8:44 AM CDT 06/06/2024 9:01 AM CDT Shaw Mitchell MD LAB BLOOD ORDERABLES Final R esult KISHA [address] [facility] [place] [address] * (ABNORMAL) Differential, auto (06/06/2024 8:44 AM CDT) Neutrophil abs 13.54(H) 1.50 - 6.50 K/cumm Comment:Testing performed by : [address] [address] Imm gran abs 0.11(H) 0.00 - 0.10 K/cumm KISHA Comment:Testing performed by : [address] [address] Lymphocyte abs 0.67(L) 0.80 - 3.30 K/cumm KISHA Comment:Testing performed by : [address] [address] Monocyte abs 0.82(H) 0.20 - 0.80 K/cumm KISHA Comment:Testing performed by : [address] [address] Eosinophil abs 0.00 0.00 - 0.50 K/cumm [facility] Comment:Testing performed by : [address] [address] Basophil abs 0.01 0.00 - 0.10 K/cumm KISHA Comment:Testing performed by : [address] [address] Neutrophil pct 89.4 % [facility] Comment: Interpretive Data Percent cell count reference ranges are not reported, since discordance with absolute values may lead to misinterpretation of CBC data. Current Interpretive Data was last revised on 2017. Testing performed by: [address] [address] Imm gran pct 0.7 % [facility] Comment: Interpretive Data Percent cell count reference ranges are not reported, since discordance with absolute values may lead to misinterpretation of CBC data. Current Interpretive Data was last revised on 2017. Testing performed by: [address] [address] Lymphocyte pct 4.4 % [facility] Comment: Interpretive Data Percent cell count reference ranges are not reported, since discordance with absolute values may lead to misinterpretation of CBC data. Current Interpretive Data was last revised on 2017. Testing performed by: [address] [address] Monocyte pct 5.4 % [facility] Comment: Interpretive Data Percent cell count reference ranges are not reported, since discordance with absolute values may lead to misinterpretation of CBC data. Current Interpretive Data was last revised on 2017. Testing performed by: [address] [address] Eosinophil pct 0.0 % [facility] Comment: Interpretive Data Percent cell count reference ranges are not reported, since discordance with absolute values may lead to misinterpretation of CBC data. Current Interpretive Data was last revised on 2017. Testing performed by: [address] [address] Basophil pct 0.1 % [facility] Comment: Interpretive Data Percent cell count reference ranges are not reported, since discordance with absolute values may lead to misinterpretation of CBC data. Current Interpretive Data was last revised on 2017. Testing performed by: [address] [address] Blood 06/06/2024 8:44 AM CDT 06/06/2024 9:01 AM CDT Shaw Mitchell MD LAB BLOOD ORDERABLES Final R esult Performing Organization Address [facility] de Phone Number [facility] [address] [facility] [place] [address] * (ABNORMAL) Iron profile w/ IBC (06/06/2024 8:44 AM CDT) Pathologist [facility] Iron 27(L) 35 - 145 mcg/dL Comment:Testing performed by : [address] [address] TIBC 290 250 - 400 mcg/dL KISHA Comment:Testing performed by : [address] [address] Transferrin saturation 9(L) 20 - 50 % KISHA Comment:Testing performed by : [address] [address] Blood 06/06/2024 8:44 AM CDT 06/06/2024 9:01 AM CDT Shaw Mitchell MD LAB BLOOD ORDERABLES Final R esult Performing Organization Address [facility] de Phone Number [facility] [address] [facility] [place] [address] * (ABNORMAL) CBC with auto differential (06/06/2024 8:44 AM CDT) WBC 15.15(H) 3.80 - 9.90 K/cumm Comment:Testing performed by : [address] [address] Hgb 9.5(L) 11.9 - 15.5 g/dL KISHA Comment:Testing performed by : [address] [address] Hct 29.6(L) 35.6 - 45.5 % KISHA Comment:Testing performed by : [address] [address] Plt 389 150 - 400 K/cumm KISHA Comment:Testing performed by : [address] [address] MPV 9.2 9.1 - 12.3 fL KISHA Comment:Testing performed by : [address], [address] RBC 3.40(L) 3.90 - 5.20 M/cumm KISHA Comment:Testing performed by : [address], [address] MCV 87.1 81.3 - 96.4 fL KISHA Comment:Testing performed by : [address], [address] MCH 27.9 27.1 - 33.3 pg KISHA Comment:Testing performed by : [address], [address] MCHC 32.1(L) 32.3 - 35.7 g/dL KISHA Comment:Testing performed by : [address], [address] RDW CV 16.2(H) 11.1 - 14.9 % KISHA Comment:Testing performed by : [address], [address] RDW SD 50.3(H) 35.7 - 48.1 fL KISHA Comment:Testing performed by : [address], [address] NRBC abs 0.00 0.00 - 0.01 K/cumm KISHA Comment:Testing performed by : [address], [address] Blood 06/06/2024 8:44 AM CDT 06/06/2024 9:01 AM CDT us Shaw Mitchell MD LAB BLOOD ORDERABLES Final R esult KISHA [address] [place] [address] * (ABNORMAL) Vitamin D 25 hydroxy (06/06/2024 8:44 AM CDT) Pathologist [facility] Vitamin D 25-OH 23.0(L) 30.0 - 80.0 ng/mL Blood 06/06/2024 8:44 AM CDT 06/06/2024 10:29 AM CDT Shaw Mitchell MD LAB BLOOD ORDERABLES Final R esult Performing Organization Address [facility] de Phone Number [address] [address] * Phosphorus (06/06/2024 8:44 AM CDT) Pathologist [facility] Phosphorus, pl 3.5 2.3 - 4.5 mg/dL Comment:Testing performed by : [address] [address] Blood 06/06/2024 8:44 AM CDT 06/06/2024 9:01 AM CDT Shaw Mitchell MD LAB BLOOD ORDERABLES Final R esult Performing Organization Address [facility] de Phone Number [address] [place] [address] * Magnesium (06/06/2024 8:44 AM CDT) [facility] Magnesium 2.2 1.4 - 2.5 mg/dL Comment:Testing performed by : [address] [address] Blood 06/06/2024 8:44 AM CDT 06/06/2024 9:01 AM CDT Shaw Mitchell MD LAB BLOOD ORDERABLES Final R esult Performing Organization Address [facility] Co de Phone Number CER[address] [address] * Folate (06/06/2024 8:44 AM CDT) [facility] Folic acid 8.3 >=5.0 ng/mL Comment:Testing performed by : [address] [address] Blood 06/06/2024 8:44 AM CDT 06/06/2024 9:01 AM CDT Shaw Mitchell MD LAB BLOOD ORDERABLES Final R esult Performing Organization Address City/[facility]/ZIP Co de Phone Number [address] [address] * Vitamin B12 (06/06/2024 8:44 AM CDT) [facility] Vitamin B12 398 230 - 1,250 pg/mL Comment:Testing performed by : [address] [address] Blood 06/06/2024 8:44 AM CDT 06/06/2024 9:01 AM CDT us Shaw Mitchell MD LAB BLOOD ORDERABLES Final R esult Performing Organization Address City/[facility]/ZIP Co de Phone Number [address] [address] * (ABNORMAL) Basic metabolic panel (06/06/2024 8:44 AM CDT) [facility] Sodium 132(L) 135 - 145 mmol/L Comment:Testing performed by : [address] [address] Potassium, pl 3.7 3.3 - 4.9 mmol/L KISHA TOWNSEND Comment:Testing performed by : [address] [address] Chloride 96(L) 97 - 110 mmol/L KISHA TOWNSEND Comment:Testing performed by : [address] [address] CO2 23 22 - 32 mmol/L KISHA Comment:Testing performed by : [address] [address] Anion gap 13 2 - 15 mmol/L KISHA Comment:Testing performed by : [address] [address] BUN 34(H) 6 - 25 mg/dL KISHA Comment:Testing performed by : [address] [address] Creatinine 0.60 0.60 - 1.10 mg/dL KISHA Comment:Testing performed by : [address] [address] Glucose 414(H) 70 - 199 mg/dL KISHA [...] was last revised 2022. Testing performed by: [address] [address] Calcium 8.8 8.5 - 10.3 mg/dL KISHA Comment:Testing performed by : [address] [address] Blood 06/06/2024 8:44 AM CDT 06/06/2024 9:01 AM CDT us Shaw Mitchell MD LAB BLOOD ORDERABLES Final R esult KISHA TOWNSEND [address] [facility] Department of Laboratories [place], [place] [address] * (ABNORMAL) POCT glucose (06/06/2024 7:49 AM CDT) Glucose, POC 430(H) 70 - 199 mg/dL Comment:Testing performed by : [address] [address] Blood 06/06/2024 7:49 AM CDT 06/06/2024 7:49 AM CDT Shaw Mitchell MD LAB POCT ORDERABLES - DEVICE Final Result Performing Organization Address [facility] de Phone Number [place] [id number] [facility] [place] [address] * (ABNORMAL) POCT glucose (06/05/2024 8:54 PM CDT) Glucose, POC 244(H) 70 - 199 mg/dL Comment:Testing performed by : [address] [address] Blood 06/05/2024 8:54 PM CDT 06/05/2024 8:54 PM CDT Angelique Pace MD LAB POCT ORDERABLES - DEVICE Final Result Performing Organization Address [facility] de Phone Number [address] [address] * (ABNORMAL) POCT glucose (06/05/2024 3:55 PM CDT) Glucose, POC 444(H) 70 - 199 mg/dL Comment:Testing performed by : [address] [address] Glucose comment 1 RN/MD Notified [facility] Comment:Testing performed by : [address] [address] Blood 06/05/2024 3:55 PM CDT 06/05/2024 3:55 PM CDT Angelique Pace MD LAB POCT ORDERABLES - DEVICE Final Result Performing Organization Address [facility]/ZIP Co de Phone Number KISHA [address] [address] * (ABNORMAL) POCT glucose (06/05/2024 3:53 PM CDT) Glucose, POC 491(C) 70 - 199 mg/dL Comment:Testing performed by : [address] [address] Glucose comment 1 RN/MD Notified KISHA Comment:Testing performed by : [address] [address] Blood 06/05/2024 3:53 PM CDT 06/05/2024 3:53 PM CDT Angelique Pace MD LAB POCT ORDERABLES - DEVICE Final Result Performing Organization Address [facility] de Phone Number [address] [address] * (ABNORMAL) POCT glucose (06/05/2024 11:40 AM CDT) Glucose, POC 420(H) 70 - 199 mg/dL Comment:Testing performed by : [address] [address] Glucose comment 1 RN/ Notified KISHA Comment:Testing performed by : [address] [address] Blood 06/05/2024 11:4 0 AM CDT 06/05/2024 11:40 AM CDT Angelique Pace MD LAB POCT ORDERABLES - DEVICE Final Result Performing Organization Address City/[facility] Co de Phone Number DANNY[address] [address] * eGFR (06/05/2024 8:17 AM CDT) Pathologist [facility] eGFR >90 >=60 mL/min/1. 73 m2 Comment: [...] was last reviewed 2020. Testing performed by: [address] [address] Blood 06/05/2024 8:17 AM CDT 06/05/2024 8:37 AM CDT us Jackson Arango DO LAB BLOOD ORDERABLES Fi nal Result KISHA [address] [facility] [place] [address] * (ABNORMAL) Differential, auto (06/05/2024 8:17 AM CDT) Neutrophil abs 10.04(H) 1.50 - 6.50 K/cumm Comment:Testing performed by : [address] [address] Imm gran abs 0.07 0.00 - 0.10 K/cumm KISHA [place]NS[place] Comment:Testing performed by : [address] [address] Lymphocyte abs 0.77(L) 0.80 - 3.30 K/cumm KISHA Comment:Testing performed by : [address] [address] Monocyte abs 0.76 0.20 - 0.80 K/cumm KISHA Comment:Testing performed by : [address] [address] Eosinophil abs 0.00 0.00 - 0.50 K/cumm KISHA Comment:Testing performed by : [address] [address] Basophil abs 0.01 0.00 - 0.10 K/cumm KISHA Comment:Testing performed by : [address] [address] Neutrophil pct 86.2 % [facility] Comment: Interpretive Data Percent cell count reference ranges are not reported, since discordance with absolute values may lead to misinterpretation of CBC data. Current Interpretive Data was last revised on 2017. Testing performed by: [address] [address] Imm gran pct 0.6 % [facility] Comment: Interpretive Data Percent cell count reference ranges are not reported, since discordance with absolute values may lead to misinterpretation of CBC data. Current Interpretive Data was last revised on 2017. Testing performed by: [address] [address] Lymphocyte pct 6.6 % [facility] Comment: Interpretive Data Percent cell count reference ranges are not reported, since discordance with absolute values may lead to misinterpretation of CBC data. Current Interpretive Data was last revised on 2017. Testing performed by: [address] [address] Monocyte pct 6.5 % [facility] Comment: Interpretive Data Percent cell count reference ranges are not reported, since discordance with absolute values may lead to misinterpretation of CBC data. Current Interpretive Data was last revised on 2017. Testing performed by: [address] [address] Eosinophil pct 0.0 % [facility] Comment: Interpretive Data Percent cell count reference ranges are not reported, since discordance with absolute values may lead to misinterpretation of CBC data. Current Interpretive Data was last revised on 2017. Testing performed by: [address] [address] Basophil pct 0.1 % [facility] Comment: Interpretive Data Percent cell count reference ranges are not reported, since discordance with absolute values may lead to misinterpretation of CBC data. Current Interpretive Data was last revised on 2017. Testing performed by: [address] [address] Blood 06/05/2024 8:17 AM CDT 06/05/2024 8:37 AM CDT us Jackson Arango DO LAB BLOOD ORDERABLES Fi nal Result KISHA [address] [facility] [place] [address] * (ABNORMAL) CBC with auto differential (06/05/2024 8:17 AM CDT) WBC 11.65(H) 3.80 - 9.90 K/cumm Comment:Testing performed by : [address] [address] Hgb 9.0(L) 11.9 - 15.5 g/dL KISHA Comment:Testing performed by : [address] [address] Hct 28.2(L) 35.6 - 45.5 % KISHA Comment:Testing performed by : [address] [address] Plt 326 150 - 400 K/cumm KISHA Comment:Testing performed by : [address] [address] MPV 9.3 9.1 - 12.3 fL KISHA Comment:Testing performed by : [address] [address] RBC 3.23(L) 3.90 - 5.20 M/cumm KISHA Comment:Testing performed by : [address] [address] MCV 87.3 81.3 - 96.4 fL KISHA Comment:Testing performed by : [address] [address] MCH 27.9 27.1 - 33.3 pg KISHA [place]NSEND Comment:Testing performed by : [address] [address] MCHC 31.9(L) 32.3 - 35.7 g/dL KISHA TOWNSEND Comment:Testing performed by : [address] [address] RDW CV 16.1(H) 11.1 - 14.9 % KISHA Comment:Testing performed by : [address] [address] RDW SD 50.5(H) 35.7 - 48.1 fL KISHA Comment:Testing performed by : [address] [address] NRBC abs 0.00 0.00 - 0.01 K/cumm KISHA Comment:Testing performed by : [address] [address] Blood 06/05/2024 8:17 AM CDT 06/05/2024 8:37 AM CDT Jackson Arango DO LAB BLOOD ORDERABLES Fi nal Result Performing Organization Address City/[facility] Co de Phone Number [address] [place] [address] * Magnesium (06/05/2024 8:17 AM CDT) Magnesium 1.9 1.4 - 2.5 mg/dL Comment:Testing performed by : [address] [address] Blood 06/05/2024 8:17 AM CDT 06/05/2024 8:37 AM CDT Jackson Arango DO LAB BLOOD ORDERABLES Fi nal Result Performing Organization Address City/[facility] Co de Phone Number [address] [address] * (ABNORMAL) Comprehensive metabolic panel (06/05/2024 8:17 AM CDT) Sodium 135 135 - 145 mmol/L Comment:Testing performed by : [address] [address] Potassium, pl 3.7 3.3 - 4.9 mmol/L KISHA Comment:Testing performed by : [address] [address] Chloride 101 97 - 110 mmol/L [facility] Comment:Testing performed by : [address] [address] CO2 24 22 - 32 mmol/L [facility] Comment:Testing performed by : [address] [address] Anion gap 10 2 - 15 mmol/L [facility] Comment:Testing performed by : [address] [address] BUN 20 6 - 25 mg/dL [facility] Comment:Testing performed by : [address] [address] Creatinine 0.40(L) 0.60 - 1.10 mg/dL [facility] Comment:Testing performed by : [address] [address] Glucose 304(H) 70 - 199 mg/dL [facility] Comment: Interpretive Data Fasting glucose >/= 126 [...] was last revised 2022. Testing performed by: [address] [address] Calcium 8.6 8.5 - 10.3 mg/dL [facility] Comment:Testing performed by : [address] [address] Bilirubin, total 0.3 0.1 - 1.2 mg/dL KISHA Comment:Testing performed by : [address] [address] Protein, pl 6.4(L) 6.5 - 8.5 g/dL KISHA Comment:Testing performed by : [address] [address] Albumin 3.6 3.5 - 5.0 g/dL KISHA Comment:Testing performed by : [address] [address] Alk phos 95 40 - 130 Units/L KISHA Comment:Testing performed by : [address] [address] ALT 12 7 - 45 Units/L KISHA Comment:Testing performed by : [address] [address] AST 18 10 - 45 Units/L KISHA Comment:Testing performed by : [address] [address] Blood 06/05/2024 8:17 AM CDT 06/05/2024 8:37 AM CDT Jackson Arango DO LAB BLOOD ORDERABLES Fi nal Result [facility] [facility] Department [place] [address] * (ABNORMAL) POCT glucose (06/05/2024 8:12 AM CDT) [facility] Glucose, POC 315(H) 70 - 199 mg/dL Comment:Testing performed by : [address] [address] Glucose comment 1 RN/MD Notified KISHA Comment:Testing performed by : [address] [address] Blood 06/05/2024 8:12 AM CDT 06/05/2024 8:12 AM CDT Angelique Pace MD LAB POCT ORDERABLES - DEVICE Final Result Performing Organization Address [facility] Co de Phone Number KISHA [address] [place] [address] * (ABNORMAL) POCT glucose (06/04/2024 8:03 PM CDT) Glucose, POC 398(H) 70 - 199 mg/dL Comment:Testing performed by : [address] [address] Blood 06/04/2024 8:03 PM CDT 06/04/2024 8:03 PM CDT Jackson Arango DO LAB POCT ORDERABLES - D EVICE Final Result Performing Organization Address [facility] de Phone Number [address] [address] * (ABNORMAL) POCT glucose (06/04/2024 3:55 PM CDT) Glucose, POC 361(H) 70 - 199 mg/dL Comment:Testing performed by : [address] [address] Blood 06/04/2024 3:55 PM CDT 06/04/2024 3:55 PM CDT Jackson Arango DO LAB POCT ORDERABLES - D EVICE Final Result Performing Organization Address [facility] Co de Phone Number [address] [place] [address] * (ABNORMAL) POCT glucose (06/04/2024 12:13 PM CDT) Glucose, POC 356(H) 70 - 199 mg/dL Comment:Testing performed by : [address] [address] Glucose comment 1 RN/MD Notified KISHA Comment:Testing performed by : [facility], [address] [place] [address]., [address] Blood 06/04/2024 12:1 3 PM CDT 06/04/2024 12:13 PM CDT Jackson Arango DO LAB POCT ORDERABLES - D EVICE Final Result Performing Organization Address [facility] Co de Phone Number KISHA [address] [facility] [place] [address] * eGFR (06/04/2024 8:26 AM CDT) eGFR [...] was last reviewed 2020. Testing performed by: [facility], [address] [place] [address]., [address] Blood 06/04/2024 8:26 AM CDT 06/04/2024 8:44 AM CDT Jackson Sheffieldurayil DO LAB BLOOD ORDERABLES Fi nal Result Performing Organization Address City/[facility]/ZIP Co de Phone Number KISHA [address] [facility] [employer] [place] [address] * (ABNORMAL) Differential, auto (06/04/2024 8:26 AM CDT) Neutrophil abs 8.12(H) 1.50 - 6.50 K/cumm Comment:Testing performed by : [address] [address] Imm gran abs 0.03 0.00 - 0.10 K/cumm KISHA Comment:Testing performed by : [address] [address] Lymphocyte abs 0.64(L) 0.80 - 3.30 K/cumm [facility] Comment:Testing performed by : [address] [address] Monocyte abs 0.82(H) 0.20 - 0.80 K/cumm [facility] Comment:Testing performed by : [address] [address] Eosinophil abs 0.00 0.00 - 0.50 K/cumm [facility] Comment:Testing performed by : [address] [address] Basophil abs 0.01 0.00 - 0.10 K/cumm [facility] Comment:Testing performed by : [address] [address] Neutrophil pct 84.4 % [facility] Comment: Interpretive Data Percent cell count reference ranges are not reported, since discordance with absolute values may lead to misinterpretation of CBC data. Current Interpretive Data was last revised on 2017. Testing performed by: [address] [address] Imm gran pct 0.3 % [facility] Comment: Interpretive Data Percent cell count reference ranges are not reported, since discordance with absolute values may lead to misinterpretation of CBC data. Current Interpretive Data was last revised on 2017. Testing performed by: [address] [address] Lymphocyte pct 6.7 % [facility] Comment: Interpretive Data Percent cell count reference ranges are not reported, since discordance with absolute values may lead to misinterpretation of CBC data. Current Interpretive Data was last revised on 2017. Testing performed by: [address] [address] Monocyte pct 8.5 % KISHA Comment: Interpretive Data Percent cell count reference ranges are not reported, since discordance with absolute values may lead to misinterpretation of CBC data. Current Interpretive Data was last revised on 2017. Testing performed by: [address] [address] Eosinophil pct 0.0 % KISHA Comment: Interpretive Data Percent cell count reference ranges are not reported, since discordance with absolute values may lead to misinterpretation of CBC data. Current Interpretive Data was last revised on 2017. Testing performed by: [address] [address] Basophil pct 0.1 % KISHA Comment: Interpretive Data Percent cell count reference ranges are not reported, since discordance with absolute values may lead to misinterpretation of CBC data. Current Interpretive Data was last revised on 2017. Testing performed by: [address] [address] Blood 06/04/2024 8:26 AM CDT 06/04/2024 8:44 AM CDT Jackson Arango DO LAB BLOOD ORDERABLES Fi nal Result [facility] [address] [facility] [place] [address] * (ABNORMAL) CBC with auto differential (06/04/2024 8:26 AM CDT) Pathologist [facility] WBC 9.62 3.80 - 9.90 K/cumm Comment:Testing performed by : [address] [address] Hgb 9.1(L) 11.9 - 15.5 g/dL KISHA Comment:Testing performed by : [address] [address] Hct 28.3(L) 35.6 - 45.5 % KISHA Comment:Testing performed by : [address] [address] Plt 270 150 - 400 K/cumm KISHA T[place]NSEND Comment:Testing performed by : [address] [address] MPV 9.4 9.1 - 12.3 fL KISHA [place]NSEND Comment:Testing performed by : [address] [address] RBC 3.22(L) 3.90 - 5.20 M/cumm KISHA Comment:Testing performed by : [address] [address] MCV 87.9 81.3 - 96.4 fL KISHA Comment:Testing performed by : [address] [address] MCH 28.3 27.1 - 33.3 pg KISHA Comment:Testing performed by : [address] [address] MCHC 32.2(L) 32.3 - 35.7 g/dL KISHA Comment:Testing performed by : [address] [address] RDW CV 16.0(H) 11.1 - 14.9 % KISHA Comment:Testing performed by : [address] [address] RDW SD 50.4(H) 35.7 - 48.1 fL KISHA Comment:Testing performed by : [address] [address] NRBC abs 0.00 0.00 - 0.01 K/cumm KISHA Comment:Testing performed by : [address] [address] Blood 06/04/2024 8:26 AM CDT 06/04/2024 8:44 AM CDT us Jackson Arango DO LAB BLOOD ORDERABLES Fi nal Result KISHA [address] [facility] [place] [address] * Magnesium (06/04/2024 8:26 AM CDT) Magnesium 1.9 1.4 - 2.5 mg/dL Comment:Testing performed by : [address] [address] Blood 06/04/2024 8:26 AM CDT 06/04/2024 8:44 AM CDT Jackson Arango DO LAB BLOOD ORDERABLES Fi nal Result [facility] [address] [facility] [place] [address] * (ABNORMAL) Comprehensive metabolic panel (06/04/2024 8:26 AM CDT) Pathologist [facility] Sodium 135 135 - 145 mmol/L Comment:Testing performed by : [address] [address] Potassium, pl 3.9 3.3 - 4.9 mmol/L KISHA Comment:Testing performed by : [address] [address] Chloride 102 97 - 110 mmol/L KISHA Comment:Testing performed by : [address] [address] CO2 22 22 - 32 mmol/L KISHA Comment:Testing performed by : [address] [address] Anion gap 11 2 - 15 mmol/L KISHA Comment:Testing performed by : [address] [address] BUN 12 6 - 25 mg/dL KISHA Comment:Testing performed by : [address] [address] Creatinine 0.43(L) 0.60 - 1.10 mg/dL KISHA Comment:Testing performed by : [address] [address] Glucose 254(H) 70 - 199 mg/dL KISHA [...] was last revised 2022. Testing performed by: [address] [address] Calcium 8.7 8.5 - 10.3 mg/dL KISHA Comment:Testing performed by : [address] [address] Bilirubin, total 0.3 0.1 - 1.2 mg/dL KISHA Comment:Testing performed by : [address] [address] Protein, pl 6.7 6.5 - 8.5 g/dL KISHA Comment:Testing performed by : [address] [address] Albumin 3.7 3.5 - 5.0 g/dL KISHA Comment:Testing performed by : [address] [address] Alk phos 97 40 - 130 Units/L KISHA Comment:Testing performed by : [address] [address] ALT 13 7 - 45 Units/L KISHA Comment:Testing performed by : [address] [address] AST 30 10 - 45 Units/L KISHA Comment:Testing performed by : [address] [address] Blood 06/04/2024 8:26 AM CDT 06/04/2024 8:44 AM CDT Jackson Arango DO LAB BLOOD ORDERABLES Fi nal Result KISHA [address] [address] * (ABNORMAL) POCT glucose (06/04/2024 8:24 AM CDT) Glucose, POC 270(H) 70 - 199 mg/dL Comment:Testing performed by : [address], [address] Glucose comment 1 RN/MD Notified KISHA Comment:Testing performed by : [address] [address] Blood 06/04/2024 8:24 AM CDT 06/04/2024 8:24 AM CDT us Jackson Sheffieldurayil DO LAB POCT ORDERABLES - D EVICE Final Result Performing Organization Address [facility] de Phone Number DANNY[address] [address] * POCT glucose (06/03/2024 11:25 PM CDT) Glucose, POC 183 70 - 199 mg/dL Comment:Testing performed by : [address], [address] Glucose comment 1 Follow Protocol KISHA Comment:Testing performed by : [address] [address] Blood 06/03/2024 11:2 5 PM CDT 06/03/2024 11:25 PM CDT us Jackson SPili Collinsapurayil DO LAB POCT ORDERABLES - D EVICE Final Result Performing Organization Address City/[facility] Co de Phone Number [address] [address] * (ABNORMAL) POCT glucose (06/03/2024 9:04 PM CDT) Glucose, POC 331(H) 70 - 199 mg/dL Comment:Testing performed by : [address] [place] [address] Glucose comment 1 Follow Protocol [facility] Comment:Testing performed by : [address] [address] Blood 06/03/2024 9:04 PM CDT 06/03/2024 9:04 PM CDT Jackson SPiil Kalapurayil DO LAB POCT ORDERABLES - D EVICE Final Result Performing Organization Address City/[facility] Co de Phone Number DANNY[address] [place] [address] * (ABNORMAL) POCT glucose (06/03/2024 7:02 PM CDT) Glucose, POC 351(H) 70 - 199 mg/dL Comment:Testing performed by : [address] [address] Blood 06/03/2024 7:02 PM CDT 06/03/2024 7:02 PM CDT Jackson SPili Collinsapurayil DO LAB POCT ORDERABLES - D EVICE Final Result Performing Organization Address [facility] de Phone Number [address] [place] [address] * (ABNORMAL) POCT glucose (06/03/2024 6:21 PM CDT) Glucose, POC 321(H) 70 - 199 mg/dL Comment:Testing performed by : [address] [address] Blood 06/03/2024 6:21 PM CDT 06/03/2024 6:21 PM CDT Jackson SPili Collinsapurayil DO LAB POCT ORDERABLES - D EVICE Final Result Performing Organization Address City/[facility] Co de Phone Number [address] [place] [address] * (ABNORMAL) POCT glucose (06/03/2024 6:19 PM CDT) Pathologist [facility] Glucose, POC 342(H) 70 - 199 mg/dL Comment:Testing performed by : [facility], [address] [place] [address]., [address] Blood 06/03/2024 6:19 PM CDT 06/03/2024 6:19 PM CDT Jackson Arango DO LAB POCT ORDERABLES - D EVICE Final Result KISHA [address] [facility] [place] [address] * eGFR (06/03/2024 12:53 PM CDT) [facility] eGFR >90 >=60 mL/min/1. 73 m2 [...] was last reviewed 2020. Testing performed by: [facility], [address] [place] [address]., [address] Blood 06/03/2024 12:5 3 PM CDT 06/03/2024 1:07 PM CDT us Jackson Arango DO LAB BLOOD ORDERABLES Fi nal Result KISHA [address] [facility] [place] [address] * Differential, auto (06/03/2024 12:53 PM CDT) Neutrophil abs 3.43 1.50 - 6.50 K/cumm Comment:Testing performed by : [address] [address] Imm gran abs 0.02 0.00 - 0.10 K/cumm KISHA Comment:Testing performed by : [address] [address] Lymphocyte abs 0.94 0.80 - 3.30 K/cumm KISHA Comment:Testing performed by : [address] [address] Monocyte abs 0.75 0.20 - 0.80 K/cumm [facility] Comment:Testing performed by : [address] [address] Eosinophil abs 0.00 0.00 - 0.50 K/cumm [facility] Comment:Testing performed by : [address] [address] Basophil abs 0.00 0.00 - 0.10 K/cumm [facility] Comment:Testing performed by : [address] [address] Neutrophil pct 66.7 % [facility] Comment: Interpretive Data Percent cell count reference ranges are not reported, since discordance with absolute values may lead to misinterpretation of CBC data. Current Interpretive Data was last revised on 2017. Testing performed by: [address] [address] Imm gran pct 0.4 % KISHA Comment: Interpretive Data Percent cell count reference ranges are not reported, since discordance with absolute values may lead to misinterpretation of CBC data. Current Interpretive Data was last revised on 2017. Testing performed by: [address] [address] Lymphocyte pct 18.3 % KISHA Comment: Interpretive Data Percent cell count reference ranges are not reported, since discordance with absolute values may lead to misinterpretation of CBC data. Current Interpretive Data was last revised on 2017. Testing performed by: [address] [address] Monocyte pct 14.6 % KISHA Comment: Interpretive Data Percent cell count reference ranges are not reported, since discordance with absolute values may lead to misinterpretation of CBC data. Current Interpretive Data was last revised on 2017. Testing performed by: [address] [address] Eosinophil pct 0.0 % KISHA Comment: Interpretive Data Percent cell count reference ranges are not reported, since discordance with absolute values may lead to misinterpretation of CBC data. Current Interpretive Data was last revised on 2017. Testing performed by: [address] [address] Basophil pct 0.0 % KISHA Comment: Interpretive Data Percent cell count reference ranges are not reported, since discordance with absolute values may lead to misinterpretation of CBC data. Current Interpretive Data was last revised on 2017. Testing performed by: [address] [address] Blood 06/03/2024 12:5 3 PM CDT 06/03/2024 1:07 PM CDT Jackson Arango DO LAB BLOOD ORDERABLES Fi nal Result KISHA [address] [facility] [place] [address] * (ABNORMAL) CBC with auto differential (06/03/2024 12:53 PM CDT) WBC 5.14 3.80 - 9.90 K/cumm Comment:Testing performed by : [address] [address] Hgb 8.8(L) 11.9 - 15.5 g/dL KISHA Comment:Testing performed by : [address] [address] Hct 27.7(L) 35.6 - 45.5 % KISHA Comment:Testing performed by : [address] [address] Plt 233 150 - 400 K/cumm KISHA Comment:Testing performed by : [address] [address] MPV 9.4 9.1 - 12.3 fL KISHA Comment:Testing performed by : [address], [address] RBC 3.12(L) 3.90 - 5.20 M/cumm KISHA Comment:Testing performed by : [address] [address] MCV 88.8 81.3 - 96.4 fL KISHA Comment:Testing performed by : [address], [address] MCH 28.2 27.1 - 33.3 pg KISHA Comment:Testing performed by : [address] [address] MCHC 31.8(L) 32.3 - 35.7 g/dL KISHA Comment:Testing performed by : [address] [address] RDW CV 16.1(H) 11.1 - 14.9 % KISHA Comment:Testing performed by : [address], [address] RDW SD 51.4(H) 35.7 - 48.1 fL KISHA Comment:Testing performed by : [address] [address] NRBC abs 0.00 0.00 - 0.01 K/cumm KISHA Comment:Testing performed by : [address] [address] Blood 06/03/2024 12:5 3 PM CDT 06/03/2024 1:07 PM CDT Jackson Arango DO LAB BLOOD ORDERABLES Fi nal Result Performing Organization Address City/[facility] Co de Phone Number DANNY[address] [address] * Magnesium (06/03/2024 12:53 PM CDT) Pathologist [facility] Magnesium 1.8 1.4 - 2.5 mg/dL Comment:Testing performed by : [address] [address] Blood 06/03/2024 12:5 3 PM CDT 06/03/2024 1:07 PM CDT Jackson SPili DennisdeidratimothyBodeTree LAB BLOOD ORDERABLES Fi nal Result Performing Organization Address [facility] Co de Phone Number KISHA [address] [place] [address] * (ABNORMAL) Comprehensive metabolic panel (06/03/2024 12:53 PM CDT) [facility] Sodium 135 135 - 145 mmol/L Comment:Testing performed by : [address] [address] Potassium, pl 3.0(L) 3.3 - 4.9 mmol/L KISHA Comment:Testing performed by : [address] [address] Chloride 101 97 - 110 mmol/L KISHA Comment:Testing performed by : [address] [address] CO2 24 22 - 32 mmol/L KISHA Comment:Testing performed by : [address] [address] Anion gap 10 2 - 15 mmol/L KISHA Comment:Testing performed by : [address] [address] BUN 11 6 - 25 mg/dL KISHA Comment:Testing performed by : [address] [address] Creatinine 0.53(L) 0.60 - 1.10 mg/dL KISHA Comment:Testing performed by : [address] [address] Glucose 231(H) 70 - 199 mg/dL KISHA [...] was last revised 2022. Testing performed by: [address] [address] Calcium 8.3(L) 8.5 - 10.3 mg/dL KISHA Comment:Testing performed by : [address] [address] Bilirubin, total 0.3 0.1 - 1.2 mg/dL KISHA Comment:Testing performed by : [address] [address] Protein, pl 6.2(L) 6.5 - 8.5 g/dL KISHA Comment:Testing performed by : [address] [address] Albumin 3.5 3.5 - 5.0 g/dL KISHA Comment:Testing performed by : [address] [address] Alk phos 92 40 - 130 Units/L KISHA Comment:Testing performed by : [address] [address] ALT 12 7 - 45 Units/L KISHA Comment:Testing performed by : [address] [address] AST 22 10 - 45 Units/L KISHA Comment:Testing performed by : [address] [address] Blood 06/03/2024 12:5 3 PM CDT 06/03/2024 1:07 PM CDT Jackson Nickl DO LAB BLOOD ORDERABLES Fi nal Result Performing Organization Address City/[facility]/ZIP Co de Phone Number KISHA [address] [place] [address] * (ABNORMAL) POCT glucose (06/03/2024 11:38 AM CDT) Glucose, POC 286(H) 70 - 199 mg/dL Comment:Testing performed by : [address] [address] Glucose comment 1 Use This Result KISHA TOWNSEND Comment:Testing performed by : [address] [address] Blood 06/03/2024 11:3 8 AM CDT 06/03/2024 11:38 AM CDT us Jackson Nickl DO LAB POCT ORDERABLES - D EVICE Final Result Performing Organization Address [facility] de Phone Number KISHA [address] [address] * POCT glucose (06/03/2024 8:24 AM CDT) Glucose, POC 126 70 - 199 mg/dL Comment:Testing performed by : [address] [address] Glucose comment 1 RN/MD Notified KISHA TOWNSEND Comment:Testing performed by : [address] [address] Blood 06/03/2024 8:2 4 AM CDT 06/03/2024 8:24 AM CDT us Jackson Sheffieldurayil DO LAB POCT ORDERABLES - D EVICE Final Result Performing Organization Address City/[facility]/ZIP Co de Phone Number KISHA [address] [place] [address] * Troponin T high-sensitivity 6-hour (06/03/2024 4:19 AM CDT) Trop T hs 14 <=14 ng/L Comment: Interpretive Data For further hscTnT resources including the diagnostic algorithm and an aid in interpretation, copy and paste this link: https://nrl.testcatalog.org/show/hsTrop Current Interpretive Data last revised 2020. Testing performed by: [address] [address] Trop T hs delta See Comment ng/L KISHA Comment: Inappropriate collection time to report a delta. Testing performed by: [address] [address] Trop T hs pct delta See Comment % KISHA Comment: Inappropriate collection time to report a delta. Testing performed by: [address] [address] Trop T hs interp See Comment KISHA Comment: Inappropriate collection time to report a delta. Testing performed by: [address] [address] Blood 06/03/2024 4:19 AM CDT 06/03/2024 5:22 AM CDT us Reynaldo Cuevas DO LAB BLOOD ORDERABLES Final Res ult Performing Organization Address [facility] Co de Phone Number [facility]ELVIN [address] [facility] [place] [address] * Thyroid Function [place] (06/03/2024 4:19 AM CDT) TSH 0.75 0.30 - 4.20 mcIUnit/mL Comment:Testing performed by : [address] [address] Blood 06/03/2024 4:19 AM CDT 06/03/2024 5:22 AM CDT Katty Armenta MD LAB BLOOD ORDER PHUONG Final Result Performing Organization Address City/State/[facility] Co de Phone Number DANNY[address] [address] * Troponin T high-sensitivity 4-hour (06/03/2024 12:38 AM CDT) Trop T hs 10 <=14 ng/L Comment: Interpretive Data For further hscTnT resources including the diagnostic algorithm and an aid in interpretation, copy and paste this link: https://nrl.testcatalog.org/show/hsTrop Current Interpretive Data last revised 2020. Testing performed by: [address] [address] Trop T hs delta 2 ng/L KISHA Comment:Testing performed by : [address] [address] Trop T hs interp Insignificant KISHA Comment:Testing performed by : [address] [address] Blood 06/03/2024 12:3 8 AM CDT 06/03/2024 12:41 AM CDT us Reynaldo Cuevas DO LAB BLOOD ORDERABLES Final Res ult Performing Organization Address [facility] Co de Phone Number ADNNY[address] [address] * POCT glucose (06/02/2024 11:11 PM CDT) Glucose, POC 174 70 - 199 mg/dL Comment:Testing performed by : [address] [address] Blood 06/02/2024 11:1 1 PM CDT 06/02/2024 11:11 PM CDT us Katty Armenta MD LAB POCT ORDERA BLES - DEVICE Final Result Performing Organization Address [facility] Co de Phone Number DANNY[address] [address] * (ABNORMAL) Urinalysis reflex to microscopic and culture Urine (06/02/2024 10:37 PM CDT) Color, ur Yellow Yellow Comment:Testing performed by : [address] [address] Clarity, ur Clear Clear KISHA Comment:Testing performed by : [address] [address] Specific gravity, ur 1.007 1.003 - 1.030 KISHA Comment:Testing performed by : [address] [address] pH, urine 7.5 KISHA Comment: Interpretive Data U rine pH is affected by diet, medications, systemic acid-base disturbances, and renal tubular function. pH may affect urinary stone formation. For example, urine pH below 6.0 may help reduce the tendency for calcium phosphate stones and pH greater than 6.0 may reduce the tendency for uric acid stone formation. Source: [facility] Current Interpretive Data was last revised on 2017 Testing performed by: [address] [address] Protein, ur ql Negative Negative KISHA Comment:Testing performed by : [address] [address] Glucose, ur ql Negative Negative KISHA Comment:Testing performed by : [address] [address] Ketones, ur Negative Negative KISHA Comment:Testing performed by : [address] [address] Bilirubin, ur Negative Negative KISHA Comment:Testing performed by : [address] [address] Blood, ur Negative Negative KISHA Comment:Testing performed by : [address] [address] Urobilinogen, ur <2.0 <2.0 mg/dL KISHA Comment:Testing performed by : [address] [address] Nitrite, ur Positive(A) Negative KISHA Comment:Testing performed by : [address] [address] Leukocyte esterase, ur 4+(A) Negative KISHA Comment:Testing performed by : [address] [address] UA reflex comment Reflex to microscopic UA will be performed. KISHA Comment:Testing performed by : [address] [address] Urine 06/02/2024 10:3 7 PM CDT 06/02/2024 10:39 PM CDT us Reynaldo Cuevas DO LAB MICROBIOLOGY - GENERAL ORD ERABLES Final Result KISHA [address] [facility] [place] [address] * (ABNORMAL) Urinalysis, microscopic only (06/02/2024 10:37 PM CDT) WBC, ur 21-50(A) 0 - 5 /HPF Comment:Testing performed by : [address] [address] RBC, ur 0-2 0 - 2 /HPF KISHA Comment:Testing performed by : [address] [address] Epithelial cells, squamous, ur 11-20(A) 0 - 5 /HPF KISHA Comment:Testing performed by : [address] [address] Bacteria, ur 1+(A) KISHA Comment:Testing performed by : [address] [address] Mucous, ur Present(A) KISHA Comment:Testing performed by : [address] [address] Culture Reflex Comment Reflex to urine culture will be performed. KISHA Comment:Testing performed by : [address] [address] Urine 06/02/2024 10:3 7 PM CDT 06/02/2024 10:39 PM CDT Reynaldo Cuevas DO LAB URINE ORDERABLES Final Res ult Performing Organization Address [facility] Co de Phone Number DANNY[address] [employer] [place] [address] * (ABNORMAL) Urine culture Urine (06/02/2024 10:37 PM CDT) Report Final Report: Greater than or equal to 100,000 colonies/mL of Escherichia coli (.) Comment:Testing performed by : [facility], [address] [facility] [place] [address] Organism ESCHERICHIA COLI [facility] Urine 06/02/2024 10:3 7 PM CDT 06/03/2024 5:22 AM CDT Narrative DANNYELVIN - 06/05/2024 12:01 PM CDT Testing performed by [facility] Microbiology Laboratory ([phone]) Organism Antibiotic Method Susceptibility Escherichia coli Ampicillin [...] Susceptible Escherichia coli Cefdinir INTERPRETATION Susceptible Katty Aremnta MD LAB MICROBIOLOG Y - GENERAL ORDERABLES Final Result Performing Organization Address City/[facility]/ZIP Co de Phone Number DANNY[address] [place] [address] * Troponin T high-sensitivity 2-hour (06/02/2024 10:21 PM CDT) Trop T hs 9 <=14 ng/L Comment: Interpretive Data For further hscTnT resources including the diagnostic algorithm and an aid in interpretation, copy and paste this link: https://nrl.testcatalog.org/show/hsTrop Current Interpretive Data last revised 2020. Testing performed by: [facility], [address] [place] [address]., [address] Trop T hs delta 1 ng/L KISHA TOWNSEND Comment:Testing performed by : [address] [address] Trop T hs interp Insignificant KISHA TOWNSEND Comment:Testing performed by : [address] [address] Blood 06/02/2024 10:2 1 PM CDT 06/02/2024 10:25 PM CDT us Reynaldo Cuevas DO LAB BLOOD ORDERABLES Final Res ult Performing Organization Address [facility]/ZIP Co de Phone Number KISHA [address] [place] [address] * POCT glucose (06/02/2024 10:19 PM CDT) Glucose, POC 152 70 - 199 mg/dL Comment:Testing performed by : [facility], [address] [place] [address]., [address] Glucose comment 1 RN/MD Notified KISHA Comment:Testing performed by : [address] [address] Blood 06/02/2024 10:1 9 PM CDT 06/02/2024 10:19 PM CDT us Katty Armenta MD LAB POCT ORDERA BLES - DEVICE Final Result Performing Organization Address City/[facility]/ZIP Co de Phone Number DANNY[address] [place] [employer] [place] [address] * Troponin T high-sensitivity series (baseline, 2hr, 4hr, 6hr) (06/02/2024 8:11 PM CDT) Pathologist [facility] Trop T hs 8 <=14 ng/L Comment: Interpretive Data For further hscTnT resources including the diagnostic algorithm and an aid in interpretation, copy and paste this link: https://nrl.testcatalog.org/show/hsTrop Current Interpretive Data last revised 2020. Testing performed by: [facility], [address] [place] [address]., [address] Blood 06/02/2024 8:11 PM CDT 06/02/2024 8:15 PM CDT Reynaldo Diabetica DO LAB BLOOD ORDERABLES Final Res ult Performing Organization Address [facility] Co de Phone Number DANNY[address] [place] [address] * Sepsis Lactate w/ Reflex (06/02/2024 8:11 PM CDT) Pathologist [facility] Sepsis Lactate 1.2 0.7 - 2.0 mmol/L Comment:Testing performed by : [address] [address] Blood 06/02/2024 8:11 PM CDT 06/02/2024 8:15 PM CDT Reynaldo Diabetica DO LAB BLOOD ORDERABLES Final Res ult Performing Organization Address [facility] de Phone Number [address] [address] * eGFR (06/02/2024 8:11 PM CDT) eGFR [...] was last reviewed 2020. Testing performed by: [address] [address] Blood 06/02/2024 8:11 PM CDT 06/02/2024 8:15 PM CDT us Reynaldo Cuevas DO LAB BLOOD ORDERABLES Final Res ult KISHA [address] [facility] [place] [address] * (ABNORMAL) Comprehensive metabolic panel (06/02/2024 8:11 PM CDT) Sodium 136 135 - 145 mmol/L Comment:Testing performed by : [address] [address] Potassium, pl 3.7 3.3 - 4.9 mmol/L KISHA Comment: Hemolyzed; Potassium value may be falsely elevated by as much as 1.0 mmol/L. Suggest redraw and reanalysis. Testing performed by: [address] [address] Chloride 99 97 - 110 mmol/L KISHA Comment:Testing performed by : [address] [address] CO2 27 22 - 32 mmol/L KISHA Comment:Testing performed by : [address] [address] Anion gap 10 2 - 15 mmol/L KISHA Comment:Testing performed by : [address] [address] BUN 8 6 - 25 mg/dL KISHA Comment:Testing performed by : [address] [address] Creatinine 0.56(L) 0.60 - 1.10 mg/dL KISHA Comment:Testing performed by : [address] [address] Glucose 71 70 - 199 mg/dL KISHA [...] was last revised 2022. Testing performed by: [address] [address] Calcium 9.0 8.5 - 10.3 mg/dL KISHA Comment:Testing performed by : [address] [address] Bilirubin, total 0.5 0.1 - 1.2 mg/dL [facility] Comment:Testing performed by : [address] [address] Protein, pl 7.1 6.5 - 8.5 g/dL [facility] Comment:Testing performed by : [address] [address] Albumin 4.1 3.5 - 5.0 g/dL [facility] Comment:Testing performed by : [address] [address] Alk phos 112 40 - 130 Units/L [facility] Comment:Testing performed by : [address] [address] ALT 15 7 - 45 Units/L [facility] Comment:Testing performed by : [address] [address] AST 30 10 - 45 Units/L KISHA Comment: Hemolyzed; result may be falsely elevated Testing performed by: [address] [address] Blood 06/02/2024 8:11 PM CDT 06/02/2024 8:15 PM CDT us Reynaldo Cuevas DO LAB BLOOD ORDERABLES Final Res ult KISHA [address] [facility] [place] [address] * XR Chest 1 Vw [...] Dany Vu M.D. NS: NS Report ID: [id number] Reading Location: [id number] Procedure Note Dany Vu MD - 06/02/2024 [...] Dany Vu M.D. NS: NS Report ID: [id number] Reading Location: [place] [address] Reynaldo Cuevas DO IMG XR PROCEDURES Final Result * ECG 12 lead (06/02/2024 7:29 PM CDT) Ventricular Rate EKG/Min 120 BPM [facility] Atrial Rate 120 BPM [facility] FL-Interval (MSEC) 206 ms [facility] QRS-Interval (MSEC) 66 ms [facility] QT-Interval (MSEC) 304 ms [facility] QTc 429 ms [facility] P Cam[place] -18 degrees [facility] R [place] 22 degrees [facility] T [place] 109 degrees [facility] Diagnosis Sinus tachycardia 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 rate has increased BY 49 BPM Confirmed by AUDRA CLAIRE M.D. ([id number]) on 06/08/2024 1:30:00 PM [facility] 06/02/2024 7:29 PM CDT 06/08/2024 1:30 PM CDT Reynaldo Cuevas DO ECG ORDERABLES Final Result [facility] * (ABNORMAL) Influenza A/B, RSV, and COVID-19 PCR Nasopharyngeal (06/02/2024 7:24 PM CDT) Pathologist [facility] COVID-19 RNA Positive(A) Negative Comment:Testing performed by : [address] [address] Influenza A RNA Negative Negative [facility] Comment:Testing performed by : [address] [address] Influenza B RNA Negative Negative [facility] Comment:Testing performed by : [address] [address] RSV RNA Negative Negative [facility] Comment: Interpretive data: Testing performed by [facility]. This test is performed using the [employer] Xpert Xpress CoV-2/Flu/RSV plus assay. This is a multiplex, real-time reverse transcriptase PCR assay intended for the qualitative detection of nucleic acid from SARS-CoV-2, influenza A, influenza B, and respiratory syncytial virus. This assay has been cleared by the [place] Food and Drug administration. The performance characteristics have been verified by the [facility]. Results must be considered in the clinical context, and a negative result does not rule out infection. Interpretive Data last revised 2023 Testing performed by: [address] [address] Nasopharyngeal 06/02/2024 7: 24 PM CDT 06/02/2024 7:35 PM CDT Narrative [facility] - 06/02/2024 8:16 PM CDT Is the Patient experiencing symptoms consistent with COVID?->Yes Reynaldo Cuevas DO LAB MICROBIOLOGY - GENERAL ORD ERABLES Final Result KISHA [address] [facility] [place] [address] * (ABNORMAL) Differential, auto (06/02/2024 7:24 PM CDT) Neutrophil abs 8.49(H) 1.50 - 6.50 K/cumm Comment:Testing performed by : [address] [address] Imm gran abs 0.06 0.00 - 0.10 K/cumm [facility] Comment:Testing performed by : [address] [address] Lymphocyte abs 1.02 0.80 - 3.30 K/cumm [facility] Comment:Testing performed by : [address] [address] Monocyte abs 0.65 0.20 - 0.80 K/cumm [facility] Comment:Testing performed by : [address] [address] Eosinophil abs 0.00 0.00 - 0.50 K/cumm [facility] Comment:Testing performed by : [address] [address] Basophil abs 0.01 0.00 - 0.10 K/cumm [facility] Comment:Testing performed by : [address] [address] Neutrophil pct 82.9 % [facility] Comment: Interpretive Data Percent cell count reference ranges are not reported, since discordance with absolute values may lead to misinterpretation of CBC data. Current Interpretive Data was last revised on 2017. Testing performed by: [address] [address] Imm gran pct 0.6 % [facility] Comment: Interpretive Data Percent cell count reference ranges are not reported, since discordance with absolute values may lead to misinterpretation of CBC data. Current Interpretive Data was last revised on 2017. Testing performed by: [address] [address] Lymphocyte pct 10.0 % [facility] Comment: Interpretive Data Percent cell count reference ranges are not reported, since discordance with absolute values may lead to misinterpretation of CBC data. Current Interpretive Data was last revised on 2017. Testing performed by: [address] [address] Monocyte pct 6.4 % [facility] Comment: Interpretive Data Percent cell count reference ranges are not reported, since discordance with absolute values may lead to misinterpretation of CBC data. Current Interpretive Data was last revised on 2017. Testing performed by: [address] [address] Eosinophil pct 0.0 % KISHA Comment: Interpretive Data Percent cell count reference ranges are not reported, since discordance with absolute values may lead to misinterpretation of CBC data. Current Interpretive Data was last revised on 2017. Testing performed by: [address] [address] Basophil pct 0.1 % KISHA Comment: Interpretive Data Percent cell count reference ranges are not reported, since discordance with absolute values may lead to misinterpretation of CBC data. Current Interpretive Data was last revised on 2017. Testing performed by: [address] [address] Blood 06/02/2024 7:24 PM CDT 06/02/2024 7:36 PM CDT us Reynaldo Cuevas DO LAB BLOOD ORDERABLES Final Res ult KISHA [address] [facility] [place] [address] * (ABNORMAL) CBC with auto differential (06/02/2024 7:24 PM CDT) WBC 10.23(H) 3.80 - 9.90 K/cumm Comment:Testing performed by : [address] [address] Hgb 10.3(L) 11.9 - 15.5 g/dL KISHA TOWNSEND Comment:Testing performed by : [address] [address] Hct 32.8(L) 35.6 - 45.5 % KISHA Comment:Testing performed by : [address] [address] Plt 385 150 - 400 K/cumm KISHA TOWNSEND Comment:Testing performed by : [address] [address] MPV 9.5 9.1 - 12.3 fL KISHA TOWNSEND Comment:Testing performed by : [address] [address] RBC 3.64(L) 3.90 - 5.20 M/cumm KISHA TOWNSEND Comment:Testing performed by : [address] [address] MCV 90.1 81.3 - 96.4 fL KISHA Comment:Testing performed by : [address] [address] MCH 28.3 27.1 - 33.3 pg KISHA TOWNSEND Comment:Testing performed by : [address] [address] MCHC 31.4(L) 32.3 - 35.7 g/dL KISHA TOWNSEND Comment:Testing performed by : [address] [address] RDW CV 16.2(H) 11.1 - 14.9 % KISHA Comment:Testing performed by : [address] [address] RDW SD 52.2(H) 35.7 - 48.1 fL KISHA TOWNSEND Comment:Testing performed by : [address] [address] NRBC abs 0.00 0.00 - 0.01 K/cumm KISHA Comment:Testing performed by : [address] [address] Blood 06/02/2024 7:24 PM CDT 06/02/2024 7:36 PM CDT us Reynaldo Cuevas DO LAB BLOOD ORDERABLES Final Res ult KISHA TOWNSEND [address] [facility] [place] [address] * CT Chest WO Contrast (05/30/2024 7:08 [...] Jeronimo Kumar M.D. KT: KT Report ID: [id number] Reading Location: [place] [address] Procedure Note Jeronimo Kumar MD - 05/30/2024 [...] Jeronimo Kumar M.D. KT: KT Report ID: [id number] Reading Location: [place] [address] us Bhupinder WINN IMG CT PROCEDURES Final [...] was last reviewed 2020. Testing performed by: [facility], [address] [place] [address], [place]., [address] Blood 05/30/2024 6:56 PM CDT 05/30/2024 7:03 PM CDT us Bhupinder WINN LAB BLOOD ORDERABL ES Final Result KISHA [address] [facility] [place] [address] * Differential, auto (05/30/2024 6:56 PM CDT) Neutrophil abs 4.92 1.50 - 6.50 K/cumm Comment:Testing performed by : [address] [address] Imm gran abs 0.01 0.00 - 0.10 K/cumm KISHA Comment:Testing performed by : [address] [address] Lymphocyte abs 1.09 0.80 - 3.30 K/cumm KISHA Comment:Testing performed by : [address] [address] Monocyte abs 0.57 0.20 - 0.80 K/cumm KISHA Comment:Testing performed by : [address] [address] Eosinophil abs 0.00 0.00 - 0.50 K/cumm KISHA Comment:Testing performed by : [address] [address] Basophil abs 0.01 0.00 - 0.10 K/cumm KISHA Comment:Testing performed by : [address] [address] Neutrophil pct 74.5 % KISHA Comment: Interpretive Data Percent cell count reference ranges are not reported, since discordance with absolute values may lead to misinterpretation of CBC data. Current Interpretive Data was last revised on 2017. Testing performed by: [address] [address] Imm gran pct 0.2 % KISHA Comment: Interpretive Data Percent cell count reference ranges are not reported, since discordance with absolute values may lead to misinterpretation of CBC data. Current Interpretive Data was last revised on 2017. Testing performed by: [address] [address] Lymphocyte pct 16.5 % KISHA Comment: Interpretive Data Percent cell count reference ranges are not reported, since discordance with absolute values may lead to misinterpretation of CBC data. Current Interpretive Data was last revised on 2017. Testing performed by: [address] [address] Monocyte pct 8.6 % KISHA Comment: Interpretive Data Percent cell count reference ranges are not reported, since discordance with absolute values may lead to misinterpretation of CBC data. Current Interpretive Data was last revised on 2017. Testing performed by: [address] [address] Eosinophil pct 0.0 % KISHA Comment: Interpretive Data Percent cell count reference ranges are not reported, since discordance with absolute values may lead to misinterpretation of CBC data. Current Interpretive Data was last revised on 2017. Testing performed by: [address] [address] Basophil pct 0.2 % KISHA Comment: Interpretive Data Percent cell count reference ranges are not reported, since discordance with absolute values may lead to misinterpretation of CBC data. Current Interpretive Data was last revised on 2017. Testing performed by: [address] [address] Blood 05/30/2024 6:56 PM CDT 05/30/2024 7:03 PM CDT us Bhupinder WINN LAB BLOOD ORDERABL ES Final Result [facility]ELVIN [address] [facility] [place] [address] * (ABNORMAL) CBC with auto differential (05/30/2024 6:56 PM CDT) WBC 6.60 3.80 - 9.90 K/cumm Comment:Testing performed by : [address] [address] Hgb 9.8(L) 11.9 - 15.5 g/dL KISHA Comment:Testing performed by : [address] [address] Hct 30.7(L) 35.6 - 45.5 % KISHA Comment:Testing performed by : [address] [address] Plt 329 150 - 400 K/cumm KISHA Comment:Testing performed by : [address], [address] MPV 9.4 9.1 - 12.3 fL KISHA Comment:Testing performed by : [address], [address] RBC 3.45(L) 3.90 - 5.20 M/cumm KISHA Comment:Testing performed by : [address], [address] MCV 89.0 81.3 - 96.4 fL KISHA Comment:Testing performed by : [address], [address] MCH 28.4 27.1 - 33.3 pg KISHA Comment:Testing performed by : [address], [address] MCHC 31.9(L) 32.3 - 35.7 g/dL KISHA Comment:Testing performed by : [address], [address] RDW CV 16.3(H) 11.1 - 14.9 % KISHA Comment:Testing performed by : [address], [address] RDW SD 51.9(H) 35.7 - 48.1 fL KISHA Comment:Testing performed by : [address], [address] NRBC abs 0.00 0.00 - 0.01 K/cumm KISHA Comment:Testing performed by : [address], [address] Blood 05/30/2024 6:56 PM CDT 05/30/2024 7:03 PM CDT us Bhupinder WINN LAB BLOOD ORDERABL ES Final Result [place] [address] [place] [address] * (ABNORMAL) aPTT (05/30/2024 6:56 PM CDT) aPTT 40(H) 22 - 37 sec Comment: Ref Range High Interpretive data aPTT test has not been evaluated for monitoring heparin therapy. The anti-Xa is the preferred test. Current interpretive data was last revised on 2019. Testing performed by: [address] [address] Blood 05/30/2024 6:56 PM CDT 05/30/2024 7:03 PM CDT Bhupinder [employer] Studioantonide Adesida PA LAB BLOOD ORDERABL ES Final Result Performing Organization Address [facility] de Phone Number [address] [address] * (ABNORMAL) Protime-INR (05/30/2024 6:56 PM CDT) PT 20.2(H) 12.0 - 14.6 sec Comment: Ref Range High Testing performed by: [address] [address] INR 1.8(H) 0.9 - 1.2 [facility] Comment: Ref Range High Interpretive data Oral anticoagulant therapeutic ranges: Venous thromboembolism prophylaxis or treatment: 2.0-3.0 CARDIOLOGY Standard range: 2.0-3.0 High-intensity range: 2.5-3.5 Refer to indication-specific guidelines for appropriate target ranges for prosthetic heart valve replacement. Current interpretive data was last revised on 2019. Testing performed by: [address] [address] Blood 05/30/2024 6:56 PM CDT 05/30/2024 7:03 PM CDT Adebowale Tolulade Adesida PA LAB BLOOD ORDERABL ES Final Result KISHA [address] [facility] [place] [address] * (ABNORMAL) Comprehensive metabolic panel (05/30/2024 6:56 PM CDT) Sodium 139 135 - 145 mmol/L Comment:Testing performed by : [address] [address] Potassium, pl 3.7 3.3 - 4.9 mmol/L KISHA Comment: Hemolyzed; Potassium value may be falsely elevated by as much as 1.0 mmol/L. Suggest redraw and reanalysis. Testing performed by: [address] [address] Chloride 102 97 - 110 mmol/L KISHA Comment:Testing performed by : [address] [address] CO2 26 22 - 32 mmol/L KISHA Comment:Testing performed by : [address] [address] Anion gap 11 2 - 15 mmol/L KISHA Comment:Testing performed by : [address] [address] BUN 9 6 - 25 mg/dL KISHA Comment:Testing performed by : [address] [address] Creatinine 0.52(L) 0.60 - 1.10 mg/dL KISHA Comment:Testing performed by : [address] [address] Glucose 168 70 - 199 mg/dL KISHA [...] was last revised 2022. Testing performed by: [facility], [address] [place] [address]., [address] Calcium 9.2 8.5 - 10.3 mg/dL KISHA Comment:Testing performed by : [address] [address] Bilirubin, total 0.5 0.1 - 1.2 mg/dL IKSHA Comment:Testing performed by : [address] [address] Protein, pl 7.1 6.5 - 8.5 g/dL KISHA Comment:Testing performed by : [address] [address] Albumin 4.1 3.5 - 5.0 g/dL KISHA Comment:Testing performed by : [address] [address] Alk phos 120 40 - 130 Units/L KISHA Comment:Testing performed by : [address] [address] ALT 14 7 - 45 Units/L KISHA Comment:Testing performed by : [address] [address] AST 30 10 - 45 Units/L KISHA Comment: Hemolyzed; result may be falsely elevated Testing performed by: [address] [address] Blood 05/30/2024 6:56 PM CDT 05/30/2024 7:03 PM CDT Bhupinder WINN LAB BLOOD ORDERABL ES Final Result [facility] [address] [facility] Department of Laboratories [place], [place] [id number] * POCT glucose (05/07/2024 8:36 AM CDT) [facility] Glucose, POC 172 70 - 199 mg/dL Comment:Testing performed by : [address] [address] Blood 05/07/2024 8:36 AM CDT 05/07/2024 8:36 AM CDT us Tom Polanco MD LAB POCT ORDERABLES - DEVICE Final Result KISHA [address] [facility] [place] [address] * (ABNORMAL) Differential, auto (05/07/2024 5:17 AM CDT) Neutrophil abs 6.9(H) 1.5 - 6.5 K/cumm Comment:Testing performed by : [address] [address] Imm gran abs 0.0 0.0 - 0.1 K/cumm KISHA Comment:Testing performed by : [address] [address] Lymphocyte abs 2.1 0.8 - 3.3 K/cumm KISHA Comment:Testing performed by : [address] [address] Monocyte abs 1.4(H) 0.2 - 0.8 K/cumm KISHA Comment:Testing performed by : [address] [address] Eosinophil abs 0.0 0.0 - 0.5 K/cumm KISHA Comment:Testing performed by : [address] [address] Basophil abs 0.0 0.0 - 0.1 K/cumm KISHA Comment:Testing performed by : [address] [address] Neutrophil pct 66.0 % KISHA Comment: Interpretive Data Percent cell count reference ranges are not reported, since discordance with absolute values may lead to misinterpretation of CBC data. Current Interpretive Data was last revised on 2017. Testing performed by: [address] [address] Imm gran pct 0.4 % KISHA Comment: Interpretive Data Percent cell count reference ranges are not reported, since discordance with absolute values may lead to misinterpretation of CBC data. Current Interpretive Data was last revised on 2017. Testing performed by: [address] [address] Lymphocyte pct 19.9 % [facility] Comment: Interpretive Data Percent cell count reference ranges are not reported, since discordance with absolute values may lead to misinterpretation of CBC data. Current Interpretive Data was last revised on 2017. Testing performed by: [address] [address] Monocyte pct 13.6 % [facility] Comment: Interpretive Data Percent cell count reference ranges are not reported, since discordance with absolute values may lead to misinterpretation of CBC data. Current Interpretive Data was last revised on 2017. Testing performed by: [address] [address] Eosinophil pct 0.0 % [facility] Comment: Interpretive Data Percent cell count reference ranges are not reported, since discordance with absolute values may lead to misinterpretation of CBC data. Current Interpretive Data was last revised on 2017. Testing performed by: [address] [address] Basophil pct 0.1 % [facility] Comment: Interpretive Data Percent cell count reference ranges are not reported, since discordance with absolute values may lead to misinterpretation of CBC data. Current Interpretive Data was last revised on 2017. Testing performed by: [address] [address] Blood 05/07/2024 5:17 AM CDT 05/07/2024 5:52 AM CDT us Tom Polanco MD LAB BLOOD ORDERABLES F inal Result KISHA [address] [facility] [place] [address] * (ABNORMAL) CBC with auto differential (05/07/2024 5:17 AM CDT) WBC 10.4(H) 3.8 - 9.9 K/cumm Comment:Testing performed by : [address], [address] Hgb 10.4(L) 11.9 - 15.5 g/dL KISHA Comment:Testing performed by : [address], [address] Hct 30.5(L) 35.6 - 45.5 % KISHA Comment:Testing performed by : [address], [address] Plt 305 150 - 400 K/cumm KISHA Comment:Testing performed by : [address], [address] MPV 9.6 9.1 - 12.3 fL KISHA Comment:Testing performed by : [address], [address] RBC 3.53(L) 3.90 - 5.20 M/cumm KISHA Comment:Testing performed by : [address], [address] MCV 86.4 81.3 - 96.4 fL KISHA Comment:Testing performed by : [address], [address] MCH 29.5 27.1 - 33.3 pg KISHA Comment:Testing performed by : [address], [address] MCHC 34.1 32.3 - 35.7 g/dL KISHA Comment:Testing performed by : [address], [address] RDW CV 15.1(H) 11.1 - 14.9 % KISHA Comment:Testing performed by : [address], [address] RDW SD 46.0 35.7 - 48.1 fL KISHA Comment:Testing performed by : [address], [address] NRBC abs 0.00 0.00 - 0.01 K/cumm KISHA Comment:Testing performed by : [address], [address] Blood 05/07/2024 5:17 AM CDT 05/07/2024 5:52 AM CDT us Tom Polanco MD LAB BLOOD ORDERABLES F inal Result Performing Organization Address [facility] Co de Phone Number KISHA [address] [address] * POCT glucose (05/07/2024 4:53 AM CDT) Glucose, POC 160 70 - 199 mg/dL Comment:Testing performed by : [address] [address] Blood 05/07/2024 4:53 AM CDT 05/07/2024 4:53 AM CDT us Tom Polanco MD LAB POCT ORDERABLES - DEVICE Final Result Performing Organization Address [facility] Co de Phone Number [address] [address] * POCT glucose (05/07/2024 12:09 AM INTERNAL CONTROLS MANAGER) Glucose, POC 113 70 - 199 mg/dL Comment:Testing performed by : [address] [address] Blood 05/07/2024 12:0 9 AM INTERNAL CONTROLS MANAGER 05/07/2024 12:09 AM INTERNAL CONTROLS MANAGER us Tom Polanco MD LAB POCT ORDERABLES - DEVICE Final Result Performing Organization Address [facility] Co de Phone Number [address] [address] * (ABNORMAL) Hemoglobin A1c (03/31/2024 3:12 PM INTERNAL CONTROLS MANAGER) Hgb A1C 5.9(H) 4.0 - 5.6 % Comment:Testing performed by : [address] [address] Estimated Average Glucose 123 mg/dL KISHA Comment: The ADA recommends reporting an estimated Average Glucose (eAG) with all Hemoglobin A1c results using the equation derived from a study of 507 normal and diabetic adults. Minority populations were underrepresented and children were not included. (Diabetes Care 31:7017-9706, 2008). The eAG is not equivalent to a fasting glucose. Testing performed by: [facility], [address] [place] [address]., [address] Blood 03/31/2024 3:12 PM INTERNAL CONTROLS MANAGER 03/31/2024 3:22 PM INTERNAL CONTROLS MANAGER Narrative KISHA - 03/31/2024 5:28 PM INTERNAL CONTROLS MANAGER PRE SURGICAL TESTING ONLY--04/07/2024--Surgeons and Role: * Aram Oro MD - Primary-@ANPROCEDURE@ Eleazar Ibrahim MD LAB BLOOD ORDERABL ES Final Result KISHA [address] [facility] [place] [address] * POCT lipid panel (08/19/2021 [...] infection. 06/19/[address] [place] [address] [facility] Member Subscriber Plan / Payer ( fective 2008-) Name:RULA GOLDSTEIN Member ID:[id number] Relation to Subscriber:Self Name:Rula Goldstein Subscriber ID:[id number] Payer ID:[id number] Group ID:Not on file Type:MEDICARE TRADITIONAL Address: [address] [place] [phone] [facility] Plan / Payer ( fective 2008-) Name:Rula Goldstein Member ID:[id number] Relation to Subscriber:Self Name:Rula Goldstein Subscriber ID:[id number] Payer ID:[id number] Group ID:Not on file Type:MEDICARE TRADITIONAL Address: [address] MEDICARE [facility]ROAD [facility] Advance Directives For more information, please contact: [phone] * Full Code (Latest Code Status on File) Date Activated Date Inactivated Comments 06/05/2024 7:54 AM 06/09/2024 5:12 PM * Full Code Date Activated Date Inactivated Comments 05/04/2024 10:26 PM 05/07/2024 3:47 PM Care Teams Bacteriologist Dairy Relationship Specialty Start Date End Date David Pruitt MD [address] [facility] [address] [facility] [address] [place] [address] PCP - General Family Medicine 06/30/17 Aram Oro MD [address] [place] [address] [address] [place], [place] [id number] Consulting Physician Surgery 02/29/24 David Fried MD [facility] [address] [place], [place] [address] Radiation Oncologist Radiation Oncology 02/29/24 Chema Foreman MD [address] [facility] [address], [place] [address] Consulting Physician Interventional Cardiology 03/17/24
--- OUTSIDE RECORDS SUMMARY | 2024-08-07 16:08 | XMS_ITS | Clinical Summary ---
Author Organization [facility] Address [address] [place] [address] Care Team Providers Care Splicer Operator Name Role Phone Unavailable Primary Care Provider Unavailabl e Source Comments [facility],non-owned Affiliates and Associated Physician Practices is amultiple site organization consisting of ambulatory clinics and hospital sitesin [place], [place], [place] and [place]. This disclosure is being madepursuant to the Care Everywhere program and may not contain all information available regarding this patient. Last updated 17.[facility] [employer] Data Social History Tobacco Use Types Packs/Day Years Used Date Smoking Tobacco: Never Assessed Comments Unknown Sex and Gender Information Value Date Recorded Sex Assigned at Not on file Legal Sex Female 6:29 AM SECOND MATE Gender Identity Not on file Sexual Orientation [...] age to complete this topic Insurance MEDICARE [facility] SELF PAY NO INSURANCE Member Subscriber Plan / Payer (Ef fective for All Dates) Name:Rula Goldstein Member ID:Not on file Relation to Subscriber:Not on file Name:RULA GOLDSTEIN Subscriber ID:Not on file (Home) Address: [address] [place] [address] Payer ID:Not on file Group ID:Not on file Type:Self Pay Address: [place], [place]
--- OUTSIDE RECORDS SUMMARY | 2024-08-07 16:08 | XMS_ITS | Clinical Summary ---
Author Organization [facility] Address [address] [place] [address] Phone Care Team Providers Care Pantry Steward/Stewardess Name Role Phone David Pruitt MD Primary Care Provider [phone] Allergies Active Allergy Reactions Criticality Noted Date Comments Atorvastatin Muscle Pain Medium 01/01/2019 Myalgias on atorvastatin 20 mg Celecoxib Hives High 04/20/2024 Fish Oil Hives High 04/20/2024 Flecainide Other (See Comments) Low 01/21/2021 QT prolongation Iodinated Contrast Media Other (See Comments) Medium 06/30/2017 Dizzy, hot, nauseated, no hives or wheezing. Metformin Other (See Comments) 04/20/2024 Chest pain [place]-3 Fatty Acids Hives,Rash High 01/27/2018 Prednisone Other [...] mouth daily. 30 Tablet 04/22/2024 1:32 PM DEBEADER 5 Active albuterol sulfate HFA 90 mcg/actuation [...] Data STL ABSTRACTION Provider, Abstract 06/14/2024 Abstract [facility] [address] [place] [address] [address] Elodia Quinn MD 06/13/2024 2:45 PM CDT Office Visit [facility] [address] [place] [address] [address] Elodia Quinn MD Bilateral carotid artery stenosis (Primary Dx) 06/13/2024 1:00 PM CDT - 06/13/2024 11:59 PM CDT Hospital Encounter [facility] Imaging Services [facility] [address] [place] [address] Elodia Quinn MD Discharge Disposition: Home or Self Care 06/13/2024 External Device Data STL ABSTRACTION Provider, Abstract 05/23/2024 External Device Data STL ABSTRACTION Provider, Abstract 05/23/2024 External Device Data STL ABSTRACTION Provider, Abstract 05/23/2024 External Device Data STL ABSTRACTION Provider, Abstract 05/17/2024 Abstract [facility] [address] [place] [address] [address] Elodia Quinn MD 05/16/2024 3:00 PM CDT Initial consult [facility] [address] [facility] [address] [address] Elodia Quinn MD Bilateral carotid artery stenosis (Primary Dx) 05/16/2024 2:36 PM CDT - 05/16/2024 11:59 PM CDT Hospital Encounter [facility] [place] [address] [place] [address] Elodia Quinn MD Discharge Disposition: [...] on file Legal Sex Female 3:10 PM DEBEADER Gender Identity Not on file Sexual Orientation Not on file Last Filed Vital Signs Vital Sign Reading Time Taken Comments Blood Pressure 144/85 06/13/2024 2:33 PM CDT Pulse 98 06/13/2024 2:33 PM CDT Temperature 37.1 C (98.7 F) 06/13/2024 2:33 PM CDT Respiratory Rate 18 04/22/2024 12:42 PM DEBEADER Oxygen Saturation 99% 06/13/2024 2:33 PM CDT Inhaled Oxygen Concentration - - Weight 56.2 kg (124 lb) 06/13/2024 2:33 PM CDT Height 154.9 cm (5' 1) 06/13/2024 2:33 PM CDT Body Mass Index 23.43 06/13/2024 2:33 PM CDT Plan of Treatment Upcoming Encounters Date Type Department Care Team (Late st Contact Info) Description 01/02/2025 10:15 AM DEBEADER Appointment [facility] Heart and Vascular Testing [address] [place] [address] [place] [address] [place] [address] 01/02/2025 11:15 AM DEBEADER Office Visit [facility] [address] [place] [address] [place] [address] [address] [place] [address] Health Maintenance Due Date Last [...] stenosis LIPID PANEL Routine 04/21/2024 1:22 AM DEBEADER HEMOGLOBIN A1C Routine 04/20/2024 10:39 PM DEBEADER from Last 3 Months or Most Recently [...] use of Iterative Reconstruction Technique. DICTATION LOCATION: [address] 06/13/2024 4:24 PM CDT CTA HEAD [...] of Iterative [employer]construction [employer]. DICTATION LOCATION: Location [address] [place] [address] us Elodia Quinn MD CT ORDERABLES Final Resul t * CT PRIOR STUDY (05/16/2024 2:36 PM CDT) Narrative 05/16/2024 2:36 PM CDT This exam was auto finalized to allow images to be scanned to PACS. us Elodia Quinn MD CT ORDERABLES Final Resul t * (ABNORMAL) LIPID PANEL (04/21/2024 1:22 AM DEBEADER) [facility] Signature CHOLESTEROL 99 <200 mg/dL 04/21/2024 2:26 AM [facility] [employer] [facility] TRIGLYCERIDE 90 <150 mg/dL 04/21/2024 2:26 AM [facility] HDL 39(L) 40 - 59 mg/dL 04/21/2024 2:26 AM [facility] LDL CALCULATED 42 <100 mg/dL 04/21/2024 2:26 AM [facility] NON-HDL CHOLESTEROL 60 <130 mg/dL 04/21/2024 2:26 AM [facility] [employer] [facility] Blood Venipuncture / Unknown 04/21/2024 1:22 AM [facility] 04/21/2024 1:49 AM [facility] - 04/21/2024 2:26 AM [facility] TOTAL CHOLESTEROL mg/dL Desirable <200 Borderline high [...] Lanza MD CHEMISTRY ORDERABLES Final Resul t [facility]# [id number] SPili [facility] HEIDIMARYCHUY [address] [place] [address] * (ABNORMAL) HEMOGLOBIN A1C (04/20/2024 10:39 PM DEBEADER) HEMOGLOBIN A1C 6.9(H) <5.7 % 04/20/2024 11:22 PM DEBEADER [facility] SERVICES - [facility] EST. AVG GLUCOSE, A1C 151 mg/dL 04/20/2024 11:22 PM [facility] LABORATORY [facility] Blood Venipuncture / Unknown 04/20/2024 10:39 PM DEBEADER 04/20/2024 10:49 PM DEBEADER Narrative [facility] - 04/20/2024 11:22 PM DEBEADER HGB A1C INTERPRETATION NORMAL: <5.7% PRE-DIABETES: 5.7 - 6.4% DIABETES: 6.5% OR GREATER us Keny Lanza MD CHEMISTRY ORDERABLES Final Resul t [facility] CLIA# [id number] [address] [place] [address] from Last 3 Months or Most Recently Relevant to [place] [address] MEDICARE RAILROAD [facility] [id number] RX [employer] Member Subscriber Plan / Payer (Ef fective 2015-Present) Name:Rula Goldstein Relation to Subscriber:Self Name:Rula Goldstein Payer ID:Not on file Group ID:[id number] Type:RX Medicare Part D Address: [place] Advance Directives For more information, please contact: [phone] * Default Full Code - Needs Discussion (Latest Code Status on File) Date Activated Date Inactivated Comments 04/20/2024 10:20 PM 04/22/2024 3:48 PM Care Teams Pantry Steward/Stewardess Relationship Specialty Start Date End Date David Pruitt MD [address] [facility] [address] [place] [address] PCP - General Family Practice 05/05/24
--- OUTSIDE RECORDS SUMMARY | 2024-08-07 16:08 | XMS_ITS ---
Author Organization [facility] al Address [address] [place] [address] Care Team Providers Care Network Planner Name Role Phone David Pruitt MD Primary Care Provider Aram Oro MD Unavailable [phone] David Fried MD Unavailable [phone] Chema Foreman MD Unavailable [phone] Active Problems Problem Noted Date Diagnosed Date Asthma-COPD overlap syndrome 07/31/2024 Nocturnal hypoxia 07/09/2024 Steroid-induced hyperglycemia 06/09/2024 Simple chronic bronchitis 06/06/2024 Urinary tract infection without hematuria 2024 COVID-19 virus infection 06/02/2024 Breast hematoma 05/04/2024 Malignant neoplasm of upper- outer quadrant of right breast in female, estrogen receptor positive 03/11/2024 Cancer Staging:Clinical stage from 03/11/2024:Stage IA(cT1c, cN0, cM0, G1, ER+, KS+, HER2: Equivocal) - Signed by David Fried MD on 03/11/2024 Pathologic stage from 07/19/2024: pT1c, cN0, cM0, G2, ER+, KS+, HER2- - Signed by David Fried MD [...] 01/27/2018 Assessment & Plan (01/27/2018 2:58 PM SHOT BLASTER): Reviewed chart and discussed blood work with patient. She denies any GI sx and says EGD 2 yrs ago and [id number] this year. Discussed posssibility of gi blood loss and offered EGD/Colonoscopy. At this time she declines and promises to follow blood counts with PMD promising to call if changes her mind Coronary artery disease invo lving [place] coronary artery of [place] heart without angina pectoris 01/26/2018 Mixed hyperlipidemia 01/26/2018 Diastolic dysfunction 01/26/2018 MATTHEWS (dyspnea on exertion) 06/30/2017 Uncomplicated asthma 06/30/2017 Mixed diabetic hyperlipidemi a associated with type 2 diabetes mellitus ([facility]) 06/30/2017 Lumbago 08/31/2016 Degeneration of intervertebral disc [...]
[2024-08-07 16:09] LABS: Basophils Percent Auto 0.2 % (0.2-1.2); Hematocrit 33.8 % (37.0-47.0); Hemoglobin 10.1 g/dL (12.0-15.0); Immature Granulocyte Absolute 0.06 K/mm3 (0.00-0.031); Immature Granulocyte Percent A 0.6 % (0-0.5); Lymphocytes Percent Auto 10.1 % (18.3-44.2); Mean Corpuscular HGB Conc 29.9 g/dl (32-36); Mean Corpuscular Hemoglobin 23.7 pg (26-34); Mean Corpuscular Volume 79.2 fl (80-100); Mean Platelet Volume 9.7 fl (7.4-10.4); Monocytes Absolute Auto 1.1 K/mm3 (0.1-0.6); Monocytes Percent Auto 9.9 % (2.6-8.5); Neutrophils Absolute Auto 8.6 K/mm3 (1.3-6.7); Neutrophils Percent Auto 79.2 % (45.5-73.1); Platelet Count Result 305 k/mm3 (150-375); Red Blood Count 4.27 M/mm3 (4.2-5.4); Red Cell Distribution Width 19.5 % (11.5-14.5); White Blood Count 10.9 K/mm3 (4.5-10.0)
[2024-08-07 16:20] LABS: Alanine Aminotransferase 14 U/L (6-35); Albumin Level 4.1 g/dL (3.5-5.1); Alkaline Phosphatase 99 U/L (38-126); Anion Gap 7 mmol/L (4-12); Aspartate Amino Transferase 25 U/L (14-36); Bilirubin,Total 0.4 mg/dL (0.2-1.3); Blood Urea Nitrogen 14 mg/dL (7-17); Carbon Dioxide 28 mmol/L (22-30); Chloride 101 mmol/L (98-107); Estimated CRCL calculation 49 ml/min; Estimated Glomerular Filt Rate > 60; Glucose 222 mg/dL (65-110); Potassium 3.3 mmol/L (3.4-5.0); Sodium 136 mmol/L (137-145); Total Protein 7.2 g/dL (6.3-8.2)
[2024-08-07 16:21] LABS: INR 1.2; Prothrombin Time 15.2 Seconds (11.1-14.7)
[2024-08-07 16:22] LABS: Partial Thromboplastin Time 33.7 Seconds (22.3-36.8)
[2024-08-07 16:31] LABS: Troponin I < 0.012 ng/mL (0.000-0.034)
[2024-08-07 16:33] LABS: Platelet Estimate Adequate (Adequate)
[2024-08-07 16:34] LABS: Hypochromasia 1+; Ovalocytes 1+; Schistocytes None Seen
[2024-08-07] MEDS: POTASSIUM CHLORIDE 20 MEQ ER TABLET 40 MEQ PO (17:04)
--- NOTE | 2024-08-07 19:28 | ADMGEN ---
This patient, Rula Goldstein, was admitted to 2 Medical Room 250-01. Patient/family oriented to hospital policies and general routines including ID bracelet, bed and alarms, visiting hours, pain management, procedures, bathroom and other care routines, personal items, smoking policy, room service/diet, and visiting hours. Information on how to activate the Rapid Response Team has been discussed. Patient/Family are encouraged to report perceived risks to care and to ask questions if they do not understand what they are told or what they should do.
--- NOTE | 2024-08-07 21:16 | P.HP_ITS ---
H&P: HPI History of Present Illness Date/Time: 08/07/24 21:16 Chief Complaint: Went limp on the toilet Narrative: 78-year-old female with a past medical history of COPD, carotid stenosis, paroxysmal atrial fibrillation, TIA, essential hypertension, and type 2 diabetes mellitus on insulin who presented to the ER after having a unresponsive episode on the toilet. Patient's reported ER staff that patient had been in the shower and felt as if she needed to use the toilet to have a bowel movement. Family assisted her to the toilet at which time she became unresponsive and was drooling. She reports that she never lost consciousness but just could not respond to being super weak. She had a large watery bowel movement. Prior to the onset of the symptoms she had not been having any abdominal pain, distension, fever or chills. She did report feeling super sweaty and was pale after the event. She denies any recurrence of symptoms. Family reports the episode lasted 5-10 minutes. Her only complaint is that she feels generally weak. Initial blood pressure on arrival to the ER was slightly low at 95/71. rvention up to the 150 systolic. Patient's labs were stable compared to baseline with only mild hypokalemia potassium of 3.3 and glucose mildly elevated at 222. Orthostatic blood vitals were normal. EKG demonstrated normal sinus rhythm with first-degree AV block with rate of 92 and a QTC of 593. CT scan of the brain was obtained which was negative for acute process and chest x-ray was unremarkable. Patient did report a fall couple of weeks ago and did not seek evaluation. She is on chronic anticoagulation was Xarelto. She does report that she has been having dysuria specially towards the end of her urinary stream. She states that the fissure is been going on for 3 days. She reports that she was recently on antibiotics for UTI on review of her external prescription record it appears that she was on doxycycline in mid June. She reports that she was on the doxycycline for UTI at that time. She denies any chest pain or palpitations. I commented to the patient that she looks much thinner than last time I had taking care of her in May 2021. She has had a 99 lb weight loss using [employer]. She stated it took little over 2 years to lose the weight. She has managed to gain a few lb back but she feels good where she is. She denies any nausea or vomiting. Review of Systems 2 Review of Systems: 12 systems were reviewed with pertinent positives and negatives per HPI. Except as documented in the HPI, all other systems were reviewed and are negative. [facility] Past Medical History Medical History (Updated 08/07/24 @ 22:10 by Eloise Nettles DO) Chronic anticoagulation Restless legs syndrome (RLS) Low vitamin D level Diabetic retinopathy, nonproliferative, mild Compression fracture of L1 lumbar vertebra Chronic hypoxic respiratory failure, on home oxygen therapy Invasive ductal carcinoma of right breast in female (01/2024) ER/VT positive HER2 equivocal stage I HLD (hyperlipidemia) TIA (transient ischemic attack) Carotid stenosis GERD (gastroesophageal reflux disease) Paroxysmal atrial fibrillation (~12/2020) Echocardiogram 12/2020: Normal left ventricular systolic function EF 65-70%, mildly increased left ventricular wall thickness, diastolic function abnormal, global longitudinal strain abnormal at -15%, left atrial chamber mildly enlarged, mild mitral valve regurgitation, mild tricuspid regurgitation Asthma-COPD overlap syndrome PFTs 06/03/2021: Moderately severe obstructive abnormality without significant improvement with bronchodilator. Diffusion capacity normal. Lung volumes normal. Adult BMI 30+ Hypothyroidism (acquired) Obstructive sleep apnea Intolerant to CPAP. Diverticulitis Colon polyps Vitiligo Cancer of left breast Diabetic peripheral neuropathy Insulin dependent type 2 diabetes mellitus Hemoglobin A1c 10.02 April 2020 Depression with anxiety Rheumatoid arthritis Seropositive Hypertension Degenerative joint disease of knee Osteopenia Surgical History Surgical History (Updated 08/08/24 @ 08:58 by Eloise Nettles DO) History of lumpectomy of right breast (04/2024) History of fusion of cervical spine History of cardiac catheterization Unremarkable per patient report. History of bilateral cataract extraction History of colonoscopy with polypectomy History of incision and drainage (05/2018) Right cheek abscess. History of hysterectomy History of appendectomy History of cholecystectomy History of thyroidectomy Due to goiter History of left mastectomy (~1992) Family History Family History Father Diabetes mellitus Hypertension Cerebrovascular accident Family history of malignant melanoma Mother Diabetes mellitus Hypertension Family history of lung cancer Sibling Family history of malignant melanoma Other Family history of cardiovascular disease Family history of malignant neoplasm Malignant neoplasm of prostate Social History Social History (Updated 08/08/24 @ 08:58 by Eloise Nettles DO) Social History: Surrogate decision maker: Smith Goldstein, . Code status: Full code. (however she would not want to be on long-term ventilation or have a feeding tube) Smoking packs per day: 3 Smoking cigarettes per day: 60.0 Years smoked: 60 Smoking pack-years: 180.00 Smoking status: Former smoker Tobacco type: cigarettes Second hand tobacco smoke exposure: Yes Additional smoking assessment comments: quit in 1998 Alcohol intake: never Substance use: never Substance use type: does not use Do You Feel Safe in your Home?: Yes Lack of Transportation: No Lack of Food: Never True Current Housing: I Have Housing Concerned About Future Housing: No Difficulty Paying Gas/Electric Bills: No Difficulty Paying for Meds: No Currently Unemployed: No Education: High School Diploma/GED Difficulty w/ Childcare or Family Care: No Living arrangements: with family Additional living arrangements comments: The patient lives in [place] with her . 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 Gender identity (if verbalized by the patient): Female Sexual Orientation (if Verbalized by the Patient): Straight or Heterosexual Spiritual care concerns: No Meds Home Medications and Allergies Home Medications ?Medication ?Instructions ?Recorded ?Confirmed ?Type albuterol sulfate 90 mcg/actuation 90 mcg inhalation PRN PRN 12/04/19 08/07/24 History aerosol inhaler (Ventolin HFA) Shortness Of Breath rosuvastatin 10 mg tablet 10 mg PO HS 12/04/19 08/07/24 History duloxetine 30 mg capsule,delayed 30 mg PO QAM 10/04/20 08/07/24 History release rivaroxaban 20 mg tablet (Xarelto) 20 mg PO DAILY@1700 #6 tabs 01/17/21 08/07/24 Rx methotrexate sodium 2.5 mg tablet 2.5 mg PO WEEKLY 10/21/21 08/07/24 History leflunomide 20 mg tablet 20 mg PO DAILY 10/15/22 08/07/24 History potassium chloride 10 mEq 10 meq PO DAILY 11/03/22 08/07/24 History tablet,extended release flash glucose sensor (FreeStyle #6 ea 07/05/23 08/07/24 Rx Dmitry 2 Sensor kit) duloxetine 60 mg capsule,delayed 60 mg PO HS #90 caps 03/06/24 08/07/24 Rx release montelukast 10 mg tablet 10 mg PO DAILY #30 tabs 05/11/24 08/07/24 Rx clopidogrel 75 mg tablet (Plavix) 75 mg PO DAILY #30 tabs 05/18/24 08/07/24 Rx levothyroxine 88 mcg tablet See Rx Instructions .Route 06/01/24 08/07/24 Rx .COMPLEX #90 tabs acetaminophen 500 mg capsule 1,000 mg PO Q4-6H PRN pain 08/07/24 08/07/24 History azelastine 137 mcg (0.1 %) nasal 1 spray intranasal Q12H 08/07/24 08/07/24 History spray cyanocobalamin (vitamin B-12) 2,000 mcg PO DAILY 08/07/24 08/07/24 History 1,000 mcg tablet fluticasone 250 mcg-salmeterol 50 1 inh inhalation Q12H 08/07/24 08/07/24 History mcg/dose blistr powdr for inhalation hydrochlorothiazide 25 mg tablet See Rx Instructions .Route 08/07/24 08/07/24 Rx .COMPLEX #90 tabs insulin glargine U-300 conc 300 40 unit subcut DAILY 08/07/24 08/07/24 History unit/mL (3 mL) subcutaneous pen (Toujeo Max U-300 SoloStar) levocetirizine 5 mg tablet (24HR 5 mg PO DAILY PRN allergy symptoms 08/07/24 08/07/24 History Allergy Relief) tirzepatide 7.5 mg/0.5 mL 7.5 mg subcut WEEKLY 08/07/24 08/07/24 History subcutaneous pen injector Allergies Allergy/AdvReac Type Severity Reaction Status Date / Time shellfish derived Allergy Severe HIVES/RASH Verified 05/11/24 14:18 shrimp Allergy Severe RASH/HIVES Verified 05/11/24 14:18 celecoxib Allergy Intermediate RASH/HIVES Verified 05/11/24 14:18 fish oil Allergy Intermediate RASH/HIVES Verified 05/11/24 14:18 metformin Allergy Unknown Chest Pain Verified 05/11/24 14:18 Vital Signs Vital Signs - 24 hr 08/07/24 13:51 08/07/24 15:05 08/07/24 15:21 Temperature 97.6 F 97.8 F Pulse Rate 81 95 Respiratory Rate 16 18 Blood Pressure 95/71 L 151/73 H Pulse Oximetry 96 98 Oxygen Delivery Room Air 08/07/24 16:37 08/07/24 16:55 08/07/24 16:56 Temperature Pulse Rate 97 93 95 Respiratory Rate 18 Blood Pressure 165/87 H 145/91 H 147/79 H Pulse Oximetry 98 Oxygen Delivery 08/07/24 16:58 08/07/24 18:34 08/07/24 20:20 Temperature 97.6 F Pulse Rate 99 89 77 Respiratory Rate 18 18 Blood Pressure 137/66 188/81 H Pulse Oximetry 100 100 Oxygen Delivery Exam 2 Narrative: Weight 57.9 kg BMI 24 Const: Other: No acute distress, well-developed well-nourished, appears stated age HENMT: Other: Mucous membranes are tacky, no oral pharyngeal erythema, head is normocephalic atraumatic Eyes: Other: Extraocular movements intact, pupils are equal and reactive with bilateral lens implants noted, mild conjunctival pallor Neck: Other: No JVD, no palpable thyroid Resp: Other: Clear to auscultation bilaterally, no increased work of breathing Cardio: Other: Regular rate, regular rhythm, 2+ bilateral radial pedal pulses GI: Other: Soft, nontender, nondistended, normoactive bowel sounds : Other: No suprapubic tenderness Skin: Other: Mild pallor, non jaundice Neuro: Other: Alert orient x4, speech is clear, no facial asymmetry, cranial nerves 2-12 grossly intact, no pronator drift, [id number] intact, sensation intact, moves all extremities equally, no localizing neurologic deficits Extrem: Other: No clubbing, cyanosis or edema, arthritic changes noted in all the joints of the fingers and hands bilaterally Psych: Other: Appropriate mood and affect, pleasant and cooperative, judgment and insight intact H&P: Results Labs Labs: Laboratory Tests 08/07/24 15:59 08/07/24 16:00 08/07/24 08/07/24 15:59 16:00 WBC 10.9 H RBC 4.27 Hgb 10.1 L Hct 33.8 L MCV 79.2 L MCH 23.7 L MCHC 29.9 L RDW 19.5 H Plt Count 305 MPV 9.7 Immature Gran % (Auto) 0.6 H Neut % (Auto) 79.2 H Lymph % (Auto) 10.1 L Gillespie % (Auto) 9.9 H Eos % (Auto) 0.0 Baso % (Auto) 0.2 Lymph # (Auto) 1.10 Gillespie # (Auto) 1.1 H Eos # (Auto) 0.0 Baso # (Auto) 0.0 Abs Immat Gran (auto) 0.06 H Absolute Neuts (auto) 8.6 H Absolute Nucleated RBC 0.000 Band Neutrophils % Not Reportable Nucleated RBC % 0.0 Platelet Estimate Adequate Hypochromasia 1+ Ovalocytes 1+ Schistocytes None seen PT 15.2 H INR 1.2 APTT 33.7 Sodium 136 L Potassium 3.3 L Chloride 101 Carbon Dioxide 28 Anion Gap 7 BUN 14 Creatinine 0.58 L Estim Creat Clear Calc 49 Estimated GFR > 60 Glucose 222 H Calcium 9.0 Magnesium 2.0 Total Bilirubin 0.4 AST 25 ALT 14 Alkaline Phosphatase 99 Troponin I < 0.012 Total Protein 7.2 Albumin 4[address] 08/07/24 15:15 IMPRESSION: 1. No fracture or acute intracranial process. 2. Age-related changes including moderate diffuse volume loss and moderate scattered white matter hypoattenuation consistent with chronic small vessel ischemic disease. Chest X-Ray 08/07/24 15:26 IMPRESSION: No acute cardiopulmonary pathology. Cervical Spine CT 08/07/24 15:50 IMPRESSION: No acute osseous abnormality cervical spine. Multilevel degenerative disc disease. 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 Differential does include cardiac arrhythmias well given patient's initial EKG did demonstrate some QT prolongation. The patient is not on any QT prolonging medications at home. Will discontinue Zofran. Will monitor the patient's cardiac rhythm on telemetry. Patient did have mild hypokalemia which could cause some instability in the patient's cardiac rhythm but she has had no evidence of arrhythmia since admission to the medical floor and potassium has been replaced. Will check magnesium level with a.m. labs. Patient does have mild decrease in hemoglobin from baseline but had a breast hematoma I was drained in April of 2024 with residual seroma that is being followed up as outpatient. Will continue home Plavix and Xarelto. No evidence of acute bleeding at this time. Patient does have carotid stenosis for which she has follow-up scheduled as outpatient. Patient has longstanding diabetes on long- acting insulin therapy. She is mildly hyperglycemic on arrival to the ER. She did receive her morning Toujeo. Will add moderate dose sliding scale insulin with Accu-Cheks a.c. HS and hypoglycemia protocol as needed. Will repeat CBC and electrolyte panel with a.m. labs. Patient was initially hypotensive but is now hypertensive. Will hold off on giving additional antihypertensive beyond her baseline medications and will follow trend. The patient reports dysuria and sensation of fullness if something is falling out ever pelvic area when she urinates. I suspect she may have some degree of prolapse. She states that she provided a urine specimen in the ER but the ER physician reportedly stated that the specimen needed to be repeated because it was in adequate. The patient does not think that she can supply a midstream urine specimen and she refuses a straight catheterization. I tried to encourage the patient to complex with need for straight catheterization but she refuses. Will attempt repeat obtain of urinalysis. I am less suspicious of UTI and more suspicious of prolapse given the fact that the patient is afebrile and does not have significant leukocytosis. Patient has been admitted as observation status. Quality VTE Prophylaxis VTE prophylaxis: pharmacologic ordered (Continue home Xarelto.) Hospitalist MIPS Advance Care Plan I have confirmed that the patient's Advanced Care Plan is present, code status is documented, or surrogate decision maker is listed in patient medical record.: Yes Medication Reconciliation I have utilized all available resources to obtain, update and review the patients current medications (includes all prescriptions, OTC, herbals, cannabis, and nutritional supplements).: Yes
[2024-08-07] MEDS: ROSUVASTATIN 10 MG TABLET PO (21:46)
[2024-08-07] MEDS: DULoxetine HCL 60 MG CAPSULE.DR PO (21:46)
[2024-08-07] MEDS: RIVAROXABAN 20 MG TABLET PO (21:46)
[2024-08-07 22:09] LABS: Glucose Point of Care 282 mg/dl (65-105)
[2024-08-08] VITALS (11 sets, daily range): BP systolic 152–166; BP diastolic 69–85; PULSE 76–103; RESP 16–18; TEMP 36.6–37.2; O2SAT 90–97
--- NOTE | 2024-08-08 | ECHO_ITS ---
Patient Info Name: Rula Goldstein Age: 78 years : 1945 Gender: Female Ht: 61 in Wt: 127 lbs BSA: 1.58 m2 HR: 86 bpm BP: 166 / 69 mmHg Heart Rhythm: Sinus Rhythm Technical Quality: Poor Exam Date: 08/08/2024 11:12 AM Patient Status: I Admit Date: 08/07/2024 Exam Type: CA echo doppler color flow Complete two-dimensional, color flow and Doppler transthoracic echocardiogram is performed. Staff Referring Physician: Violeta Snowden MD Primary Care Sales Representative: Aminata Rivera Attending Provider: Lc Altamirano MD Reason for Poor Study: poor echocardiographic windows Summary 1. Complete two-dimensional, color flow and Doppler transthoracic echocardiogram is performed. 2. Normal, somewhat hyperdynamic appearing left ventricular systolic function. 3. Mild sclerosis of the aortic valve with no stenosis. 4. No significant valve dysfunction. 5. Small previously seen pericardial effusion from 2021 is no longer demonstrated. Left Ventricle Left ventricular chamber dimension is normal. Left ventricular systolic function is normal, estimated at 65-70. The left ventricular diastolic function is grade I diastolic dysfunction. Right Ventricle Right ventricular chamber dimension is normal. Left Atria Left atrial chamber dimension is normal. Right Atria Right atrial chamber dimension is normal. Aortic Valve The aortic valve is trileaflet. There is mild aortic valve sclerosis. Pulmonic Valve The pulmonic valve is normal. Mitral Valve The mitral valve has normal leaflets. Tricuspid Valve The tricuspid valve leaflets are normal. Pericardium/Pleural The pericardium appears normal. Aorta The aortic root size at the sinus of Valsalva is normal. Left Ventricular Outflow Tract Name Value Normal LVOT 2D LVOT Diameter 2.0 cm LVOT Doppler LVOT Peak Velocity 82 cm/s LVOT Peak Gradient 3 mmHg LVOT Mean Gradient 1 mmHg LVOT VTI 17 cm LVOT VTI/AV VTI Ratio 0.6 LVOT Stroke Volume 51 ml LVOT CO 4.5 l/min LVOT CI 2.8 l/min/m2 Pulmonic Valve Name Value Normal RVOT Doppler RVOT Peak Velocity 64 cm/s RVOT Peak Gradient 2 mmHg PV Doppler PV Peak Velocity 119 cm/s PV Peak Gradient 6 mmHg Mitral Valve Name Value Normal MV Diastolic Function MV E Peak Velocity 89 cm/s MV A Peak Velocity 37 cm/s MV E/A 2.4 MV Decel Time (PW) 173 ms MV Annular TDI MV E/e' (Septal) 14.8 MV E/e' (Lateral) 11.1 MV E/e' (Average) 12.9 Tricuspid Valve Name Value Normal TV Annular TDI TV Lateral Sabrina s' Velocity 9.5 cm/s >=9.5 Aortic Valve Name Value Normal AV Doppler AV Peak Velocity 120 cm/s AV Peak Gradient 6 mmHg AV Mean Gradient 4 mmHg AV VTI 26 cm AV Area (Cont Eq VTI) 2.0 cm2 >=3.0 AV Area (Cont Eq Sudhir) 2.1 cm2 AV DI (Sudhir) 0.68 AV Regurgitation 2D LVOT Area 3.0 cm2 Ventricles Name Value Normal LV Dimensions 2D/MM IVS Diastolic Thickness (2D) 0.8 cm 0.6-1.0 LVID Diastole (2D) 3.9 cm 3.8-5.2 LVIW Diastolic Thickness (2D) 1.1 cm 0.6-0.9 LVID Systole (2D) 2.6 cm 2.2-3.5 LVOT Diameter 2.0 cm LV Mass (2D Cubed) 119.15 g 67.00-162.00 LV Mass Index (2D Cubed) 75 g/m2 43-95 Relative Wall Thickness (2D) 0.58 <=0.42 LV Fractional Shortening/Ejection Fraction 2D/MM LV Fractional Shortening (2D) 35 % 27-45 LV EF (2D Teichholz) 65 % Atria Name Value Normal LA Dimensions LA Volume (4C A-L) 42 ml LA Volume (BP A-L) 36 ml RA Dimensions RA Systolic Major [place] Length (4C) 4.3 cm 2.2-2.8 RA Area (4C) 10.1 cm2 <=18.0 Report Signatures
[2024-08-08 05:23] LABS: Hematocrit 33.7 % (37.0-47.0); Hemoglobin 10.3 g/dL (12.0-15.0); Mean Corpuscular HGB Conc 30.6 g/dl (32-36); Mean Corpuscular Hemoglobin 23.8 pg (26-34); Mean Corpuscular Volume 77.8 fl (80-100); Mean Platelet Volume 9.9 fl (7.4-10.4); Platelet Count Result 338 k/mm3 (150-375); Red Blood Count 4.33 M/mm3 (4.2-5.4); Red Cell Distribution Width 19.6 % (11.5-14.5); White Blood Count 7.4 K/mm3 (4.5-10.0)
[2024-08-08] MEDS: LEVOTHYROXINE SODIUM 88 MCG TABLET BY MOUTH (05:27)
[2024-08-08 05:36] LABS: Anion Gap 4 mmol/L (4-12); Blood Urea Nitrogen 11 mg/dL (7-17); Calcium 8.7 mg/dL (8.4-10.2); Carbon Dioxide 29 mmol/L (22-30); Chloride 104 mmol/L (98-107); Estimated CRCL calculation 55 ml/min; Estimated Glomerular Filt Rate > 60; Glucose 155 mg/dL (65-110); Potassium 3.6 mmol/L (3.4-5.0); Sodium 137 mmol/L (137-145)
[2024-08-08 07:59] LABS: Glucose Point of Care 139 mg/dl (65-105)
--- NOTE | 2024-08-08 08:00 | ECG_ITS ---
Test Date: 2024-08-08 09:47:55 Measurements Intervals [place] Rate: 96 P: 0 CA: 0 QRS: 13 QRSD: 86 T: 72 QT: 386 QTc: 489 Interpretive Statements SINUS RHYTH WITH FIRST DEGREE AV BLOCK CANNOT R/O SEPTAL INFARCT, AGE INDETERMINATE BORDERLINE ST-T WAVE ABNORMALITY- LAT/HIGH LAT LEADS BASELINE WANDER- I, II, AVL, AVF ABNORMAL ECG Compared to ECG 08/07/2024 13:55:09 NO SIGNIFICANT CHANGE Electronically Signed On 08-08-2024 09:58:01 CDT by Osei Avila D.O.
[2024-08-08] MEDS: FLUTICASONE/SALMETEROL 115-21 MCG INHALER 1 PUFF 2 PUFF INHALATION (08:28)
[2024-08-08] MEDS: DULoxetine HCL 30 MG CAPSULE.DR PO (09:58)
[2024-08-08] MEDS: MONTELUKAST SODIUM 10 MG TABLET PO (09:59)
[2024-08-08] MEDS: hydroCHLOROthiazide 25 MG TABLET BY MOUTH (09:59)
[2024-08-08] MEDS: CLOPIDOGREL BISULFATE 75 MG TABLET PO (09:59)
[2024-08-08] MEDS: CYANOCOBALAMIN 1,000 MCG TABLET 2000 MCG PO (09:59)
[2024-08-08] MEDS: LEFLUNOMIDE 20 MG TABLET PO (10:00)
[2024-08-08] MEDS: AZELASTINE HCL NASAL 0.1% 137 MCG/SPR 30 ML BTL 1 SPRAY NASAL (10:00)
[2024-08-08] MEDS: INSULIN GLARGINE (*BKC) 100 UNITS/ML 32 UNITS SUB-Q (10:03)
[2024-08-08] MEDS: POTASSIUM CHLORIDE 20 MEQ ER TABLET PO (10:07)
--- NOTE | 2024-08-08 10:29 | P.CONCA_ITS ---
Assessment and Plan Assessment and plan (1) Syncope: Qualifiers: Syncope type: vasovagal syncope Qualified Code(s): R55 - Syncope and collapse Code(s): R55 - Syncope and collapse Status: Acute Plan 1. Possible syncopal episode 2. Non-obstructive CAD 3. History of paroxysmal atrial flutter (didn't tolerate Flecainide due to QT prolongation) 4. Hypertension 5. Hyperlipidemia 6. Diabetes 7. COPD 8. Breast cancer (recently completed radiation therapy) PLAN: -There was some concern about possible QT prolongation noted on EKG, however, upon my manual calculation of her QT interval, QT interval is normal. She does have a history of QT prolongation from Flecainide, therefore, would avoid QT prolonging medications. Keep electrolytes optimized. -Will obtain echocardiogram. -Continue to monitor on tele while in the hospital. At time of discharge, recommend outpatient 30 day event monitor (order for this placed). History of Present Illness History of Present Illness Consult date/time: 08/08/24 10:29 Requesting physician: Eloise Nettles DO Consult reason: Other (Syncope ) Reason For Visit: Syncope, Hypokalemia Narrative: We are consulted for possible syncope. Rula is an 78 year old female with history of non-obstructive CAD, history of paroxysmal atrial flutter (didn't tolerate Flecainide due to QT prolongation), hypertension, hyperlipidemia, diabetes, COD, breast cancer (recently completed radiation therapy) who presented to [facility] after an unresponsive episode. Rula states she was getting out of the shower and went to the bathroom. Did not feel any symptoms at this time. Nor did she strain herself while going to the bathroom. After going to the bathroom, she became unresponsive. Rula states she did not believe she lost consciousness. She was noted to be drooling. Episode lasted for 5-10 minutes. She is currently feeling well. Telemetry without any arrhythmias. EKG with sinus rhythm with first degree AV block. CT head negative. Troponin negative. Review of Systems 2 Review of Systems: All systems reviewed & are unremarkable except as noted in HPI and below (HPI) FORMERLY [facility] Past Medical History Medical History Chronic anticoagulation Restless legs syndrome (RLS) Low vitamin D level Diabetic retinopathy, nonproliferative, mild Compression fracture of L1 lumbar vertebra Chronic hypoxic respiratory failure, on home oxygen therapy Invasive ductal carcinoma of right breast in female (01/2024) ER/NV positive HER2 equivocal stage I HLD (hyperlipidemia) TIA (transient ischemic attack) Carotid stenosis GERD (gastroesophageal reflux disease) Paroxysmal atrial fibrillation (~12/2020) Echocardiogram 12/2020: Normal left ventricular systolic function EF 65-70%, mildly increased left ventricular wall thickness, diastolic function abnormal, global longitudinal strain abnormal at -15%, left atrial chamber mildly enlarged, mild mitral valve regurgitation, mild tricuspid regurgitation Asthma-COPD overlap syndrome PFTs 06/03/2021: Moderately severe obstructive abnormality without significant improvement with bronchodilator. Diffusion capacity normal. Lung volumes normal. Adult BMI 30+ Hypothyroidism (acquired) Obstructive sleep apnea Intolerant to CPAP. Diverticulitis Colon polyps Vitiligo Cancer of left breast Diabetic peripheral neuropathy Insulin dependent type 2 diabetes mellitus Hemoglobin A1c 10.02 April 2020 Depression with anxiety Rheumatoid arthritis Seropositive Hypertension Degenerative joint disease of knee Osteopenia Surgical History Surgical History History of lumpectomy of right breast (04/2024) History of fusion of cervical spine History of cardiac catheterization Unremarkable per patient report. History of bilateral cataract extraction History of colonoscopy with polypectomy History of incision and drainage (05/2018) Right cheek abscess. History of hysterectomy History of appendectomy History of cholecystectomy History of thyroidectomy Due to goiter History of left mastectomy (~1992) Family History Family History Father Diabetes mellitus Hypertension Cerebrovascular accident Family history of malignant melanoma Mother Diabetes mellitus Hypertension Family history of lung cancer Sibling Family history of malignant melanoma Other Family history of cardiovascular disease Family history of malignant neoplasm Malignant neoplasm of prostate Social History Social History Social History: Surrogate decision maker: Smith Golsdtein, . Code status: Full code. (however she would not want to be on long-term ventilation or have a feeding tube) Smoking packs per day: 3 Smoking cigarettes per day: 60.0 Years smoked: 60 Smoking pack-years: 180.00 Smoking status: Former smoker Tobacco type: cigarettes Second hand tobacco smoke exposure: Yes Additional smoking assessment comments: quit in 1998 Alcohol intake: never Substance use: never Substance use type: does not use Do You Feel Safe in your Home?: Yes Lack of Transportation: No Lack of Food: Never True Current Housing: I Have Housing Concerned About Future Housing: No Difficulty Paying Gas/Electric Bills: No Difficulty Paying for Meds: No Currently Unemployed: No Education: High School Diploma/GED Difficulty w/ Childcare or Family Care: No Living arrangements: with family Additional living arrangements comments: The patient lives in [place] with her . 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 Gender identity (if verbalized by the patient): Female Sexual Orientation (if Verbalized by the Patient): Straight or Heterosexual Spiritual care concerns: No Meds Home Medications and Allergies Home Medications ?Medication ?Instructions ?Recorded ?Confirmed ?Type albuterol sulfate 90 mcg/actuation 90 mcg inhalation PRN PRN 12/04/19 08/07/24 History aerosol inhaler (Ventolin HFA) Shortness Of Breath rosuvastatin 10 mg tablet 10 mg PO HS 12/04/19 08/07/24 History duloxetine 30 mg capsule,delayed 30 mg PO QAM 10/04/20 08/07/24 History release rivaroxaban 20 mg tablet (Xarelto) 20 mg PO DAILY@1700 #6 tabs 01/17/21 08/07/24 Rx methotrexate sodium 2.5 mg tablet 2.5 mg PO WEEKLY 10/21/21 08/07/24 History leflunomide 20 mg tablet 20 mg PO DAILY 10/15/22 08/07/24 History potassium chloride 10 mEq 10 meq PO DAILY 11/03/22 08/07/24 History tablet,extended release flash glucose sensor (FreeStyle #6 ea 07/05/23 08/07/24 Rx Dmitry 2 Sensor kit) duloxetine 60 mg capsule,delayed 60 mg PO HS #90 caps 03/06/24 08/07/24 Rx release montelukast 10 mg tablet 10 mg PO DAILY #30 tabs 05/11/24 08/07/24 Rx clopidogrel 75 mg tablet (Plavix) 75 mg PO DAILY #30 tabs 05/18/24 08/07/24 Rx levothyroxine 88 mcg tablet See Rx Instructions .Route 06/01/24 08/07/24 Rx .COMPLEX #90 tabs acetaminophen 500 mg capsule 1,000 mg PO Q4-6H PRN pain 08/07/24 08/07/24 History azelastine 137 mcg (0.1 %) nasal 1 spray intranasal Q12H 08/07/24 08/07/24 History spray cyanocobalamin (vitamin B-12) 2,000 mcg PO DAILY 08/07/24 08/07/24 History 1,000 mcg tablet fluticasone 250 mcg-salmeterol 50 1 inh inhalation Q12H 08/07/24 08/07/24 History mcg/dose blistr powdr for inhalation hydrochlorothiazide 25 mg tablet See Rx Instructions .Route 08/07/24 08/07/24 Rx .COMPLEX #90 tabs insulin glargine U-300 conc 300 40 unit subcut DAILY 08/07/24 08/07/24 History unit/mL (3 mL) subcutaneous pen (Toujeo Max U-300 SoloStar) levocetirizine 5 mg tablet (24HR 5 mg PO DAILY PRN allergy symptoms 08/07/24 08/07/24 History Allergy Relief) tirzepatide 7.5 mg/0.5 mL 7.5 mg subcut WEEKLY 08/07/24 08/07/24 History subcutaneous pen injector Allergies Allergy/AdvReac Type Severity Reaction Status Date / Time shellfish derived Allergy Severe HIVES/RASH Verified 05/11/24 14:18 shrimp Allergy Severe RASH/HIVES Verified 05/11/24 14:18 celecoxib Allergy Intermediate RASH/HIVES Verified 05/11/24 14:18 fish oil Allergy Intermediate RASH/HIVES Verified 05/11/24 14:18 metformin Allergy Unknown Chest Pain Verified 05/11/24 14:18 Vital Signs Vital Signs - 24 hr 08/07/24 13:51 08/07/24 15:05 08/07/24 15:21 Temperature 36.4 C 36.6 C Pulse Rate 81 95 Respiratory Rate 16 18 Blood Pressure 95/71 L 151/73 H Pulse Oximetry 96 98 Oxygen Delivery Room Air 08/07/24 16:37 08/07/24 16:55 08/07/24 16:56 Temperature Pulse Rate 97 93 95 Respiratory Rate 18 Blood Pressure 165/87 H 145/91 H 147/79 H Pulse Oximetry 98 Oxygen Delivery 08/07/24 16:58 08/07/24 18:34 08/07/24 20:00 Temperature Pulse Rate 99 89 77 Respiratory Rate 18 18 Blood Pressure 137/66 Pulse Oximetry 100 100 Oxygen Delivery Room Air 08/07/24 20:20 08/08/24 00:00 08/08/24 04:00 Temperature 36.4 C Pulse Rate 77 84 92 Respiratory Rate 18 Blood Pressure 188/81 H Pulse Oximetry 100 Oxygen Delivery 08/08/24 04:55 08/08/24 08:31 08/08/24 08:32 Temperature 36.6 C Pulse Rate 93 76 76 Respiratory Rate 18 16 16 Blood Pressure 166/69 H Pulse Oximetry 97 90 Oxygen Delivery Exam 2 Const: General: comfortable and no acute distress HENMT: Mouth: Yes moist mucous membranes Eyes: General: appearance normal, both eyes and all related structures S clera: sclerae normal Resp: Effort & Inspection: normal respiratory effort Auscultation: clear to auscultation bilaterally Cardio: Rate: regular rate Rhythm: regular rhythm Heart sounds: no murmurs Skin: General skin exam: normal color Neuro: Speech: normal speech Psych: Mental Status: mental status grossly normal Results Labs and Meds 08/08/24 04:52 08/08/24 04:52 Lab results: Cardiac Enzymes 08/07/24 Range/Units 16:00 AST 25 (14-36) U/L Troponin I < 0.012 (0.000-0.034) ng/mL Coagulation 08/07/24 Range/Units 15:59 PT 15.2 H (11.1-14.7) Seconds APTT 33.7 (22.3-36.8) Seconds CBC 08/07/24 08/08/24 Range/Units 15:59 04:52 WBC 10.9 H 7.4 (4.5-10.0) K/mm3 RBC 4.27 4.33 (4.2-5.4) M/mm3 Hgb 10.1 L 10.3 L (12.0-15.0) g/dL Hct 33.8 L 33.7 L (37.0-47.0) % Plt Count 305 338 (150-375) k/mm3 Lymph # (Auto) 1.10 (0.9-3.2) K/mm3 [place] # (Auto) 1.1 H (0.1-0.6) K/mm3 Eos # (Auto) 0.0 (0-0.3) K/mm3 Baso # (Auto) 0.0 (0.0-0.1) K/mm3 Comprehensive Metabolic Panel 08/07/24 08/08/24 Range/Units 16:00 04:52 Sodium 136 L 137 (137-145) mmol/L Potassium 3.3 L 3.6 (3.4-5.0) mmol/L Chloride 101 104 (98-107) mmol/L Carbon Dioxide 28 29 (22-30) mmol/L BUN 14 11 (7-17) mg/dL Creatinine 0.58 L 0.52 L (0.7-1.0) mg/dL Glucose 222 H 155 H (65-110) mg/dL Calcium 9.0 8.7 (8.4-10.2) mg/dL AST 25 (14-36) U/L ALT 14 (6-35) U/L Alkaline Phosphatase 99 (38-126) U/L Total Protein 7.2 (6.3-8.2) g/dL Albumin 4.1 (3.5-5.1) g/dL Intake and Output 08/07/24 08/08/24 08/08/24 23:59 07:59 15:59 Intake Total 340 240 Output Total 50 600 Balance -50 -260 240 Intake: Oral 340 240 Output: Urine 50 600 Other: # Incontinent Voids 1
[2024-08-08 12:07] LABS: Glucose Point of Care 261 mg/dl (65-105)
--- NOTE | 2024-08-08 12:26 | P.PNIM_ITS ---
Progress Note: A&P Assessment and Plan (1) Syncope: Qualifiers: Syncope type: vasovagal syncope Qualified Code(s): R55 - Syncope and collapse Code(s): R55 - Syncope and collapse Status: Acute Assessment and Plan: * Cardiology consulted, appreciate recommendations. * Echocardiogram showed: Summary 1. Complete two-dimensional, color flow and Doppler transthoracic echocardiogram is performed. 2. Normal, somewhat hyperdynamic appearing left ventricular systolic function. 3. Mild sclerosis of the aortic valve with no stenosis. 4. No significant valve dysfunction. 5. Small previously seen pericardial effusion from 2021 is no longer demonstrated. Left Ventricle Left ventricular chamber dimension is normal. Left ventricular systolic function is normal, estimated at 65-70. The left ventricular diastolic function is grade I diastolic dysfunction. * Cardiology recommends a 30 day holter monitor at discharge. * UA with reflex ordered. (2) QT prolongation: Code(s): R94.31 - Abnormal electrocardiogram [ECG] [EKG] Status: Acute Assessment and Plan: * Per Cardiology:There was some concern about possible QT prolongation noted on EKG, however, upon my manual calculation of her QT interval, QT interval is normal. She does have a history of QT prolongation from Flecainide, therefore, would avoid QT prolonging medications. Keep electrolytes optimized. (3) Hypokalemia: Code(s): E87.6 - Hypokalemia Status: Acute Assessment and Plan: * Potassium improved from 3.3>3.6. * Potassium Chloride 20 meq PO daily. * Monitor levels. (4) Type 2 diabetes mellitus with hyperglycemia, with long-term current use of insulin: Code(s): E11.65 - Type 2 diabetes mellitus with hyperglycemia; Z79.4 - custodial (current) use of insulin Status: Acute Assessment and Plan: * Moderate dose sliding scale insulin with Accu-Cheks a.c. HS and hypoglycemia protocol as needed. (5) Carotid stenosis: Qualifiers: Laterality: bilateral Qualified Code(s): I65.23 - Occlusion and stenosis of bilateral carotid arteries Code(s): I65.29 - Occlusion and stenosis of unspecified carotid artery Status: Acute Assessment and Plan: * Patient does have carotid stenosis for which she has follow-up scheduled as outpatient. Plan The patient reports dysuria and sensation of fullness if something is falling out ever pelvic area when she urinates. I suspect she may have some degree of prolapse. She states that she provided a urine specimen in the ER but the ER physician reportedly stated that the specimen needed to be repeated because it w as in adequate. The patient does not think that she can supply a midstream urine specimen and she refuses a straight catheterization. I tried to encourage the patient to complex with need for straight catheterization but she refuses. Will attempt repeat obtain of urinalysis. I am less suspicious of UTI and more suspicious of prolapse given the fact that the patient is afebrile and does not have significant leukocytosis. Subjective Date/time seen: 08/08/24 12:26 Interval history: Patient reports feeling well at present. at bedside. Patient and report patient was sitting on commode and got where she was not answering him and was throwing up for a few minutes. Patient denies chest pain, palpitations, headache, dizziness, nausea, or vomiting. Review of Systems Review of Systems: All systems reviewed & are unremarkable except as noted in HPI and below Exam Const: General: comfortable and no acute distress Cardio: Rate: regular rate Rhythm: regular rhythm Other: SR-97 GI: GI Palp: Yes Soft to palpation Auscultation: normal bowel sounds Neuro: Speech: normal speech Extrem: General: no pedal edema Psych: Mental Status: mental status grossly normal Affect: normal affect Objective Data Vital Signs Vital Signs: Vital Signs - 24 hr 08/07/24 13:51 08/07/24 15:05 08/07/24 15:21 Temperature 97.6 F 97.8 F Pulse Rate 81 95 Respiratory Rate 16 18 Blood Pressure 95/71 L 151/73 H Pulse Oximetry 96 98 Oxygen Delivery Room Air 08/07/24 16:37 08/07/24 16:55 08/07/24 16:56 Temperature Pulse Rate 97 93 95 Respiratory Rate 18 Blood Pressure 165/87 H 145/91 H 147/79 H Pulse Oximetry 98 Oxygen Delivery 08/07/24 16:58 08/07/24 18:34 08/07/24 20:00 Temperature Pulse Rate 99 89 77 Respiratory Rate 18 18 Blood Pressure 137/66 Pulse Oximetry 100 100 Oxygen Delivery Room Air 08/07/24 20:20 08/08/24 00:00 08/08/24 04:00 Temperature 97.6 F Pulse Rate 77 84 92 Respiratory Rate 18 Blood Pressure 188/81 H Pulse Oximetry 100 Oxygen Delivery 08/08/24 04:55 08/08/24 08:00 08/08/24 08:31 Temperature 97.8 F Pulse Rate 93 99 76 Respiratory Rate 18 16 Blood Pressure 166/69 H Pulse Oximetry 97 Oxygen Delivery 08/08/24 08:32 Temperature Pulse Rate 76 Respiratory Rate 16 Blood Pressure Pulse Oximetry 90 Oxygen Delivery Intake/Output Intake/Output: Intake & Output 08/05/24 08/06/24 08/07/24 08/08/24 23:59 23:59 23:59 23:59 Intake Total 580 Output Total 50 600 Balance -50 -20 Meds/Results Medications: Active Medications Generic Name Dose Route Start Last Admin Trade Name Freq PRN Reason Stop Dose Admin Acetaminophen 1,000 mg 08/07/24 20:58 Acetaminophen 500 Mg Tablet PO Q6H PRN pain 1-3 or fever Albuterol 2 puff 08/07/24 20:58 Albuterol Sulfate (*Sp) Aerosol 1 Puff INHALATION Q6HRT PRN Shortness Of Breath Azelastine HCl 1 spray 08/08/24 09:00 08/08/24 10:00 Azelastine Hcl Nasal 0.1% 137 Mcg/Spr 30 Ml Btl NASAL 1 spray Q12HR FAMILIA Administration Clopidogrel Bisulfate 75 mg 08/08/24 09:00 08/08/24 09:59 Clopidogrel Bisulfate 75 Mg Tablet PO 75 mg DAILY FAMILIA Administration Cyanocobalamin 2,000 mcg 08/08/24 09:00 08/08/24 09:59 Cyanocobalamin 1,000 Mcg Tablet PO 2,000 mcg DAILY FAMILIA Administration Dextrose 12.5 gm 08/07/24 21:06 Dextrose 50% 25 Gm/50 Ml Syringe IV PUSH PRN PRN Hypoglycemia Protocol Duloxetine HCl 30 mg 08/08/24 09:00 08/08/24 09:58 Duloxetine Hcl 30 Mg Capsule. PO 30 mg QAM FAMILIA Administration Duloxetine HCl 60 mg 08/07/24 21:00 08/07/24 21:46 Duloxetine Hcl 60 Mg Capsule. PO 60 mg HS FAMILIA Administration Glucagon 1 mg 08/07/24 21:06 Glucagon For Inj 1 Mg Vial IM PRN PRN Hypoglycemia Protocol Glucose 15 gm 08/07/24 21:06 Glucose Oral Gel 15 Gm Of Glucse In 37.5 Gm Tube PO PRN PRN Hypoglycemia Protocol Hydrochlorothiazide 25 mg 08/08/24 09:00 08/08/24 09:59 Hydrochlorothiazide 25 Mg Tablet BY MOUTH 25 mg DAILY FAMILIA Administration Dextrose 1,000 mls @ 100 mls/hr 08/07/24 21:06 Dextrose 5% 1,000 Ml IVPB PRN PRN Hypoglycemia Protocol Insulin Aspart 3 - 6 units 08/08/24 08:00 08/08/24 08:16 Insulin Aspart (*Bkc) 100 Units/Ml SUB-Q Not Given TIDWM FAMILIA Protocol Insulin Aspart 1 - 3 units 08/08/24 21:00 Insulin Aspart (*Bkc) 100 Units/Ml SUB-Q HS FAMILIA Protocol Insulin Glargine 32 units 08/08/24 09:00 08/08/24 10:03 Insulin Glargine (*Bkc) 100 Units/Ml SUB-Q 32 units DAILY FAMILIA Administration Leflunomide 20 mg 08/08/24 09:00 08/08/24 10:00 Leflunomide 20 Mg Tablet PO 20 mg DAILY FAMILIA Administration Levothyroxine Sodium 88 mcg 08/08/24 06:30 08/08/24 05:27 Levothyroxine Sodium 88 Mcg Tablet BY MOUTH 88 mcg DAILY@0630 FAMILIA Administration Methotrexate 25 mg 08/13/24 09:00 Methotrexate 2.5 Mg Tab (*Chemo) PO Hinojosa@0900 FAMILIA Montelukast Sodium 10 mg 08/08/24 09:00 08/08/24 09:59 Montelukast Sodium 10 Mg Tablet PO 10 mg DAILY FAMILIA Administration Perflutren Lipid Microsphere 0 ml 08/08/24 10:28 Perflutren Lipid Microspheres 1.5 Ml Vial Diluted To 10 Ml Total Volume IV PUSH 08/11/24 10:28 ONCE PRN adequate visualization Protocol Potassium Chloride 20 meq 08/08/24 08:00 08/08/24 10:07 Potassium Chloride 20 Meq Er Tablet PO 20 meq DAILY@0800 FAMILIA Administration Rivaroxaban 20 mg 08/07/24 21:05 08/07/24 21:46 Rivaroxaban 20 Mg Tablet PO 20 mg DAILY@1700 FAMILIA Administration Rosuvastatin Calcium 10 mg 08/07/24 21:15 08/07/24 21:46 Rosuvastatin 10 Mg Tablet PO 10 mg HS FAMILIA Administration Fluticasone/Salmeterol 2 puff 08/08/24 08:00 08/08/24 08:28 Fluticasone/Salmeterol 115-21 Mcg Inhaler 1 Puff INHALATION 2 puff Q12HRT FAMILIA Administration Radiology Results: ITS Impressions Head CT 08/07/24 15:15 IMPRESSION: 1. No fracture or acute intracranial process. 2. Age-related changes including moderate diffuse volume loss and moderate scattered white matter hypoattenuation consistent with chronic small vessel ischemic disease. Chest X-Ray 08/07/24 15:26 IMPRESSION: No acute cardiopulmonary pathology. Cervical Spine CT 08/07/24 15:50 IMPRESSION: No acute osseous abnormality cervical spine. Multilevel degenerative disc disease. Labs Labs: Laboratory Results - last 24 hr 08/07/24 08/07/24 08/07/24 15:59 16:00 21:51 WBC 10.9 H RBC 4.27 Hgb 10.1 L Hct 33.8 L MCV 79.2 L MCH 23.7 L MCHC 29.9 L RDW 19.5 H Plt Count 305 MPV 9.7 Immature Gran % (Auto) 0.6 H Neut % (Auto) 79.2 H Lymph % (Auto) 10.[address] [place] % (Auto) 9.9 H Eos % (Auto) 0.0 Baso % (Auto) 0.2 Lymph # (Auto) 1.10 [place] # (Auto) 1.1 H Eos # (Auto) 0.0 Baso # (Auto) 0.0 Abs Immat Gran (auto) 0.06 H Absolute Neuts (auto) 8.6 H Absolute Nucleated RBC 0.000 Band Neutrophils % Not Reportable Nucleated RBC % 0.0 Platelet Estimate Adequate Hypochromasia 1+ Ovalocytes 1+ Schistocytes None seen PT 15.2 H INR 1.2 APTT 33.7 Sodium 136 L Potassium 3.3 L Chloride 101 Carbon Dioxide 28 Anion Gap 7 BUN 14 Creatinine 0.58 L Estim Creat Clear Calc 49 Estimated GFR > 60 Glucose 222 H POC Capillary Glucose 282 H Calcium 9.0 Magnesium 2.0 Total Bilirubin 0.4 AST 25 ALT 14 Alkaline Phosphatase 99 Troponin I < 0.012 Total Protein 7.2 Albumin 4.1 TSH (Reflex) 08/08/24 08/08/24 08/08/24 04:52 07:51 11:47 WBC 7.4 RBC 4.33 Hgb 10.3 L Hct 33.7 L MCV 77.8 L MCH 23.8 L MCHC 30.6 L RDW 19.6 H Plt Count 338 MPV 9.9 Immature Gran % (Auto) Neut % (Auto) Lymph % (Auto) [place] % (Auto) Eos % (Auto) Baso % (Auto) Lymph # (Auto) [place] # (Auto) Eos # (Auto) Baso # (Auto) Abs Immat Gran (auto) Absolute Neuts (auto) Absolute Nucleated RBC Band Neutrophils % Nucleated RBC % Platelet Estimate Hypochromasia Ovalocytes Schistocytes PT INR APTT Sodium 137 Potassium 3.6 Chloride 104 Carbon Dioxide 29 Anion Gap 4 BUN 11 Creatinine 0.52 L Estim Creat Clear Calc 55 Estimated GFR > 60 Glucose 155 H POC Capillary Glucose 139 H 261 H Calcium 8.7 Magnesium 2.0 Total Bilirubin AST ALT Alkaline Phosphatase Troponin I Total Protein Albumin TSH (Reflex) 1.560 Quality VTE Prophylaxis VTE prophylaxis: pharmacologic ordered (Continue home Xarelto.)
[2024-08-08] MEDS: INSULIN ASPART (*BKC) 100 UNITS/ML SUB-Q (12:46)
[2024-08-08 14:08] LABS: Add Urine Microscopic? YES; Appearance Urine Clear (Clear); Bacteria Urine None Seen /hpf; Bilirubin Urine Negative (Negative); Blood Urine 1+ (Negative); Color Urine Yellow (Yellow); Glucose Urine UA 3+ mg/dL (Negative); Ketones Urine Negative (Negative); Leukocyte Esterase Ur 2+ LEU/UL (Negative); Nitrate Urine Negative (Negative); Protein Urine Trace mg/dL (Negative); RBC Urine 0-2 /hpf (0-2); Specific Grav Ur 1.012 (1.001-1.035); Squamous Epithelial Cell Urine None Seen /hpf (Few); Urobilinogen Urine 0.2 mg/dL (<2.0); WBC Urine 21-50 /hpf (0-3); pH Urine 5.5 (5.0-9.0)
[2024-08-08 18:09] LABS: Glucose Point of Care 127 mg/dl (65-105)
[2024-08-08] MEDS: RIVAROXABAN 20 MG TABLET PO (18:14)
[2024-08-08] MEDS: DULoxetine HCL 60 MG CAPSULE.DR PO (20:20)
[2024-08-08] MEDS: ROSUVASTATIN 10 MG TABLET PO (20:20)
[2024-08-09] VITALS (10 sets, daily range): BP systolic 141–160; BP diastolic 74–96; PULSE 93–113; RESP 16–20; TEMP 36.3–37.1; O2SAT 94–99
[2024-08-09 00:12] LABS: Glucose Point of Care 140 mg/dl (65-105)
[2024-08-09 04:47] LABS: Basophils Percent Auto 0.2 % (0.2-1.2); Hemoglobin 9.5 g/dL (12.0-15.0); Immature Granulocyte Absolute 0.04 K/mm3 (0.00-0.031); Immature Granulocyte Percent A 0.4 % (0-0.5); Lymphocytes Absolute Auto 1.42 K/mm3 (0.9-3.2); Lymphocytes Percent Auto 14.3 % (18.3-44.2); Mean Corpuscular HGB Conc 30.6 g/dl (32-36); Mean Corpuscular Hemoglobin 23.7 pg (26-34); Mean Corpuscular Volume 77.3 fl (80-100); Mean Platelet Volume 9.6 fl (7.4-10.4); Monocytes Absolute Auto 0.6 K/mm3 (0.1-0.6); Monocytes Percent Auto 6.2 % (2.6-8.5); Neutrophils Absolute Auto 7.8 K/mm3 (1.3-6.7); Neutrophils Percent Auto 78.9 % (45.5-73.1); Platelet Count Result 303 k/mm3 (150-375); Red Blood Count 4.01 M/mm3 (4.2-5.4); White Blood Count 9.9 K/mm3 (4.5-10.0)
[2024-08-09 05:15] LABS: Potassium 3.3 mmol/L (3.4-5.0)
[2024-08-09 05:23] LABS: Alanine Aminotransferase 13 U/L (6-35); Albumin Level 3.8 g/dL (3.5-5.1); Alkaline Phosphatase 103 U/L (38-126); Anion Gap 7 mmol/L (4-12); Aspartate Amino Transferase 25 U/L (14-36); Bilirubin,Total 0.5 mg/dL (0.2-1.3); Blood Urea Nitrogen 11 mg/dL (7-17); Calcium 8.6 mg/dL (8.4-10.2); Carbon Dioxide 27 mmol/L (22-30); Chloride 103 mmol/L (98-107); Estimated CRCL calculation 53 ml/min; Estimated Glomerular Filt Rate > 60; Glucose 76 mg/dL (65-110); Magnesium 1.9 mg/dL (1.6-2.3); Potassium 3.4 mmol/L (3.4-5.0); Sodium 137 mmol/L (137-145); Total Protein 6.8 g/dL (6.3-8.2)
[2024-08-09] MEDS: LEVOTHYROXINE SODIUM 88 MCG TABLET BY MOUTH (05:54)
[2024-08-09] MEDS: FLUTICASONE/SALMETEROL 115-21 MCG INHALER 1 PUFF 2 PUFF INHALATION (07:24)
[2024-08-09 08:12] LABS: Glucose Point of Care 97 mg/dl (65-105)
[2024-08-09] MEDS: POTASSIUM CHLORIDE 20 MEQ ER TABLET PO ×2 (08:58→08:59)
[2024-08-09] MEDS: CLOPIDOGREL BISULFATE 75 MG TABLET PO (08:59)
[2024-08-09] MEDS: LEFLUNOMIDE 20 MG TABLET PO (08:59)
[2024-08-09] MEDS: hydroCHLOROthiazide 25 MG TABLET BY MOUTH (08:59)
[2024-08-09] MEDS: DULoxetine HCL 30 MG CAPSULE.DR PO (08:59)
[2024-08-09] MEDS: MONTELUKAST SODIUM 10 MG TABLET PO (08:59)
[2024-08-09] MEDS: CYANOCOBALAMIN 1,000 MCG TABLET 2000 MCG PO (08:59)
[2024-08-09] MEDS: AZELASTINE HCL NASAL 0.1% 137 MCG/SPR 30 ML BTL 1 SPRAY NASAL (09:00)
[2024-08-09] MEDS: INSULIN GLARGINE (*BKC) 100 UNITS/ML 32 UNITS SUB-Q (09:04)
--- NOTE | 2024-08-09 11:32 | PM.PNCARD ---
Progress Note: A&P Assessment and Plan (1) Syncope: Qualifiers: Syncope type: vasovagal syncope Qualified Code(s): R55 - Syncope and collapse Code(s): R55 - Syncope and collapse Status: Acute Plan 1. Possible syncopal episode 2. Non-obstructive CAD 3. History of paroxysmal atrial flutter (didn't tolerate Flecainide due to QT prolongation) 4. Hypertension 5. Hyperlipidemia 6. Diabetes 7. COPD 8. Breast cancer (recently completed radiation therapy) 9. Hypokalemia: Potassium today 3.4 PLAN: -There was some concern about possible QT prolongation noted on EKG, however, upon Dr. Foreman calculation of her QT interval, QT interval is normal. She does have a history of QT prolongation from Flecainide, therefore, would avoid QT prolonging medications. Keep electrolytes optimized. -ECHO was unremarkable except for possible hyperdynamic LV. She is encouraged to stay hydrated. -telemetry is unremarkable. Okay to discharge in my opinion. At time of discharge, recommend outpatient 30 day event monitor (order for this placed). Regarding hypokalemia, will replace her potassium with 40 mEq of potassium chloride x1. As well as continue daily potassium supplement at home Subjective Date/time seen: 08/09/24 11:32 Interval history: 78-year-old female with possible syncopal episode and history QT prolongation. Date of service 08/09/2024: No chest pain, shortness breath, palpitations. Feels well. No arrhythmias seen on nuclear spectroscopist Review of Systems Review of Systems: All systems reviewed & are unremarkable except as noted in HPI and below Constitutional: Constitutional: Denies chills ENT: Reports Normal hearing present Cardiovascular: Cardiovascular: Denies chest pain Respiratory: Respiratory: Denies chest congestion Exam Narrative: Alert oriented appears stated age Const: General: comfortable and no acute distress HENMT: Face/Nose/Sinus: Normal nares present Eyes: General: appearance normal, both eyes and all related structures Sclera: sclerae normal Neck: Neck: supple Resp: Effort & Inspection: normal respiratory effort Auscultation: clear to auscultation bilaterally Cardio: Rate: regular rate Rhythm: regular rhythm Heart sounds: no murmurs GI: GI Palp: Yes Soft to palpation Auscultation: normal bowel sounds Skin: General skin exam: normal color Neuro: Speech: normal speech Extrem: General: normal to inspection Psych: Mental Status: mental status grossly normal Objective Data Vital Signs Vital Signs: Vital Signs - 24 hr 08/08/24 12:00 08/08/24 14:00 08/08/24 16:00 Temperature 36.8 C Pulse Rate 95 99 95 Respiratory Rate 16 Blood Pressure 153/85 H Pulse Oximetry 97 Oxygen Delivery 08/08/24 20:00 08/08/24 20:00 08/08/24 20:26 Temperature 37.2 C Pulse Rate 103 H 93 Respiratory Rate 18 Blood Pressure 152/79 H Pulse Oximetry 97 Oxygen Delivery Room Air 08/09/24 00:00 08/09/24 03:47 08/09/24 04:00 Temperature 37.1 C Pulse Rate 93 99 97 Respiratory Rate 18 Blood Pressure 141/74 H Pulse Oximetry 94 Oxygen Delivery 08/09/24 07:27 Temperature Pulse Rate 101 H Respiratory Rate 16 Blood Pressure Pulse Oximetry Oxygen Delivery Intake/Output Intake/Output: Intake & Output 08/06/24 08/07/24 08/08/24 08/09/24 23:59 23:59 23:59 23:59 Intake Total 1060 510 Output Total 50 1950 600 Balance -50 -890 -90 Meds/Results Medications: Active Medications Generic Name Dose Route Start Last Admin Trade Name Freq PRN Reason Stop Dose Admin Acetaminophen 1,000 mg 08/07/24 20:58 Acetaminophen 500 Mg Tablet PO Q6H PRN pain 1-3 or fever Albuterol 2 puff 08/07/24 20:58 Albuterol Sulfate (*Sp) Aerosol 1 Puff INHALATION Q6HRT PRN Shortness Of Breath Azelastine HCl 1 spray 08/08/24 09:00 08/09/24 09:00 Azelastine Hcl Nasal 0.1% 137 Mcg/Spr 30 Ml Btl NASAL 1 spray Q12HR FAMILIA Administration Clopidogrel Bisulfate 75 mg 08/08/24 09:00 08/09/24 08:59 Clopidogrel Bisulfate 75 Mg Tablet PO 75 mg DAILY FAMILIA Administration Cyanocobalamin 2,000 mcg 08/08/24 09:00 08/09/24 08:59 Cyanocobalamin 1,000 Mcg Tablet PO 2,000 mcg DAILY FAMILIA Administration Dextrose 12.5 gm 08/07/24 21:06 Dextrose 50% 25 Gm/50 Ml Syringe IV PUSH PRN PRN Hypoglycemia Protocol Duloxetine HCl 30 mg 08/08/24 09:00 08/09/24 08:59 Duloxetine Hcl 30 Mg Capsule. PO 30 mg QAM FAMILIA Administration Duloxetine HCl 60 mg 08/07/24 21:00 08/08/24 20:20 Duloxetine Hcl 60 Mg Capsule. PO 60 mg HS FAMILIA Administration Glucagon 1 mg 08/07/24 21:06 Glucagon For Inj 1 Mg Vial IM PRN PRN Hypoglycemia Protocol Glucose 15 gm 08/07/24 21:06 Glucose Oral Gel 15 Gm Of Glucse In 37.5 Gm Tube PO PRN PRN Hypoglycemia Protocol Hydrochlorothiazide 25 mg 08/08/24 09:00 08/09/24 08:59 Hydrochlorothiazide 25 Mg Tablet BY MOUTH 25 mg DAILY FAMILIA Administration Dextrose 1,000 mls @ 100 mls/hr 08/07/24 21:06 Dextrose 5% 1,000 Ml IVPB PRN PRN Hypoglycemia Protocol Insulin Aspart 3 - 6 units 08/08/24 08:00 08/09/24 09:00 Insulin Aspart (*Bkc) 100 Units/Ml SUB-Q Not Given TIDWM FAMILIA Protocol Insulin Aspart 1 - 3 units 08/08/24 21:00 08/08/24 20:30 Insulin Aspart (*Bkc) 100 Units/Ml SUB-Q Not Given HS FAMILIA Protocol Insulin Glargine 32 units 08/08/24 09:00 08/09/24 09:04 Insulin Glargine (*Bkc) 100 Units/Ml SUB-Q 32 units DAILY FAMILIA Administration Leflunomide 20 mg 08/08/24 09:00 08/09/24 08:59 Leflunomide 20 Mg Tablet PO 20 mg DAILY FAMILIA Administration Levothyroxine Sodium 88 mcg 08/08/24 06:30 08/09/24 05:54 Levothyroxine Sodium 88 Mcg Tablet BY MOUTH 88 mcg DAILY@0630 FAMILIA Administration Methotrexate 25 mg 08/13/24 09:00 Methotrexate 2.5 Mg Tab (*Chemo) PO Hinojosa@0900 FAMILIA Montelukast Sodium 10 mg 08/08/24 09:00 08/09/24 08:59 Montelukast Sodium 10 Mg Tablet PO 10 mg DAILY FAMILIA Administration Perflutren Lipid Microsphere 0 ml 08/08/24 10:28 Perflutren Lipid Microspheres 1.5 Ml Vial Diluted To 10 Ml Total Volume IV PUSH 08/11/24 10:28 ONCE PRN adequate visualization Protocol Potassium Chloride 20 meq 08/08/24 08:00 08/09/24 08:58 Potassium Chloride 20 Meq Er Tablet PO 20 meq DAILY@0800 FAMILIA Administration Rivaroxaban 20 mg 08/07/24 21:05 08/08/24 18:14 Rivaroxaban 20 Mg Tablet PO 20 mg DAILY@1700 FAMILIA Administration Rosuvastatin Calcium 10 mg 08/07/24 21:15 08/08/24 20:20 Rosuvastatin 10 Mg Tablet PO 10 mg HS FAMILIA Administration Fluticasone/Salmeterol 2 puff 08/08/24 08:00 08/09/24 07:24 Fluticasone/Salmeterol 115-21 Mcg Inhaler 1 Puff INHALATION 2 puff Q12HRT FAMILIA Administration Radiology Results: ITS Impressions Head CT 08/07/24 15:15 IMPRESSION: 1. No fracture or acute intracranial process. 2. Age-related changes including moderate diffuse volume loss and moderate scattered white matter hypoattenuation consistent with chronic small vessel ischemic disease. Chest X-Ray 08/07/24 15:26 IMPRESSION: No acute cardiopulmonary pathology. Cervical Spine CT 08/07/24 15:50 IMPRESSION: No acute osseous abnormality cervical spine. Multilevel degenerative disc disease. Labs Labs: Laboratory Results - last 24 hr 08/08/24 08/08/24 08/08/24 11:47 13:23 16:57 WBC RBC Hgb Hct MCV MCH MCHC RDW Plt Count MPV Immature Gran % (Auto) Neut % (Auto) Lymph % (Auto) [place] % (Auto) Eos % (Auto) Baso % (Auto) Lymph # (Auto) [place] # (Auto) Eos # (Auto) Baso # (Auto) Abs Immat Gran (auto) Absolute Neuts (auto) Absolute Nucleated RBC Nucleated RBC % Sodium Potassium Chloride Carbon Dioxide Anion Gap BUN Creatinine Estim Creat Clear Calc Estimated GFR Glucose POC Capillary Glucose 261 H 127 H Calcium Magnesium Total Bilirubin AST ALT Alkaline Phosphatase Total Protein Albumin Urine Color Yellow Urine Appearance Clear Urine pH 5.5 Ur Specific Paulina 1.012 Urine Protein Trace Urine Glucose (UA) 3+ H Urine Ketones Negative Ur Blood (Man) 1+ H Urine Nitrate Negative Urine Bilirubin Negative Urine Urobilinogen 0.2 Leukocyte Esterase Rfl 2+ H Urine RBC 0-2 Urine WBC 21-50 H Ur Squamous Epith Cells None seen Urine Bacteria None seen Urine Casts 3-5 08/08/24 08/09/24 08/09/24 20:28 04:07 04:07 WBC 9.9 RBC 4.01 L Hgb 9.5 L Hct 31.0 L MCV 77.3 L MCH 23.7 L MCHC 30.6 L RDW 19.0 H Plt Count 303 MPV 9.6 Immature Gran % (Auto) 0.4 Neut % (Auto) 78.9 H Lymph % (Auto) 14.3 L [place] % (Auto) 6.2 Eos % (Auto) 0.0 Baso % (Auto) 0.2 Lymph # (Auto) 1.42 [place] # (Auto) 0.6 Eos # (Auto) 0.0 Baso # (Auto) 0.0 Abs Immat Gran (auto) 0.04 H Absolute Neuts (auto) 7.8 H Absolute Nucleated RBC 0.000 Nucleated RBC % 0.0 Sodium 137 Potassium 3.3 L 3.4 Chloride 103 Carbon Dioxide 27 Anion Gap 7 BUN 11 Creatinine 0.54 L Estim Creat Clear Calc 53 Estimated GFR > 60 Glucose 76 POC Capillary Glucose 140 H Calcium 8.6 Magnesium 1.9 Total Bilirubin 0.5 AST 25 ALT 13 Alkaline Phosphatase 103 Total Protein 6.8 Albumin 3.8 Urine Color Urine Appearance Urine pH Ur Specific Paulina Urine Protein Urine Glucose (UA) Urine Ketones Ur Blood (Man) Urine Nitrate Urine Bilirubin Urine Urobilinogen Leukocyte Esterase Rfl Urine RBC Urine WBC Ur Squamous Epith Cells Urine Bacteria Urine Casts 08/09/24 07:55 WBC RBC Hgb Hct MCV MCH MCHC RDW Plt Count MPV Immature Gran % (Auto) Neut % (Auto) Lymph % (Auto) [place] % (Auto) Eos % (Auto) Baso % (Auto) Lymph # (Auto) [place] # (Auto) Eos # (Auto) Baso # (Auto) Abs Immat Gran (auto) Absolute Neuts (auto) Absolute Nucleated RBC Nucleated RBC % Sodium Potassium Chloride Carbon Dioxide Anion Gap BUN Creatinine Estim Creat Clear Calc Estimated GFR Glucose POC Capillary Glucose 97 Calcium Magnesium Total Bilirubin AST ALT Alkaline Phosphatase Total Protein Albumin Urine Color Urine Appearance Urine pH Ur Specific Paulina Urine Protein Urine Glucose (UA) Urine Ketones Ur Blood (Man) Urine Nitrate Urine Bilirubin Urine Urobilinogen Leukocyte Esterase Rfl Urine RBC Urine WBC Ur Squamous Epith Cells Urine Bacteria Urine Casts Echo: 1. Complete two-dimensional, color flow and Doppler transthoracic echocardiogram is performed. 2. Normal, somewhat hyperdynamic appearing left ventricular systolic function. 3. Mild sclerosis of the aortic valve with no stenosis. 4. No significant valve dysfunction. 5. Small previously seen pericardial effusion from 2021 is no longer demonstrated.
[2024-08-09 11:49] LABS: Glucose Point of Care 184 mg/dl (65-105)
--- NOTE | 2024-08-09 16:28 | P.DS_ITS ---
DS: Admitting Diagnosis Discharge Date 08/09/24 Admitting Diagnosis Syncope DS: Discharge Diagnosis Discharge Diagnosis (1) Syncope: Qualifiers: Syncope type: vasovagal syncope Qualified Code(s): R55 - Syncope and collapse Code(s): R55 - Syncope and collapse Status: Acute (2) QT prolongation: Code(s): R94.31 - Abnormal electrocardiogram [ECG] [EKG] Status: Acute (3) Hypokalemia: Code(s): E87.6 - Hypokalemia Status: Acute (4) Type 2 diabetes mellitus with hyperglycemia, with long-term current use of insulin: Code(s): E11.65 - Type 2 diabetes mellitus with hyperglycemia; Z79.4 - residential (current) use of insulin Status: Acute (5) Carotid stenosis: Qualifiers: Laterality: bilateral Qualified Code(s): I65.23 - Occlusion and stenosis of bilateral carotid arteries Code(s): I65.29 - Occlusion and stenosis of unspecified carotid artery Status: Acute (6) Anemia: Code(s): D64.9 - Anemia, unspecified Status: Acute DS: Summary Hospital Course Reason for hospitalization: 78yo female with COPD, carotid stenosis, paroxysmal atrial fibrillation, TIA, essential hypertension, and type 2 diabetes mellitus on insulin who presented to the ER after having a unresponsive episode on the toilet. Please see H&P for details. Hospital Course: Patient presented after having a possible syncopal episode. Head CT showing no acute findings. Cervical CT showing no acute abnormalities. CXR showing no acute cardiopulmonary disease. EKG showing normal sinus rhythm with first degree AVB and possible LAE. QTc was 593. Repeat EKG showing similar findings with QTc 489. TSH normal. Troponin negative. Cardiology was consulted and appreciate their recommendations. Echo showing normal, somewhat hyperdynamic appearing left ventricular systolic function with EF 65-70%, mild sclerosis of the aortic valve with no stenosis and no significant valve dysfunction. Previously seen pericardial effusion has resolved. Cardiology did not feel she had QT prolongation when measured manually. She does have a history of QT prolongation from Flecainide, therefore, we avoided QT prolonging medications. We optimized her electrolytes. Cardiology recommended a 30 day holter monitor at discharge. Patient does have carotid stenosis for which she has follow-up scheduled as outpatient. The patient reports dysuria and sensation of fullness if something is falling out ever pelvic area when she urinates. Suspect she may have some degree of prolapse. UA has some concerns for infection and UCx pending. Mild microcytic anemia noted and will check iron studies as outpatient. She overall did well and was able to be discharged home on 08/09/24. Status at Discharge Cognitive/behavioral status at discharge: stable Time Spent with Patient Time attestation: Total time spent providing and/or coordinating discharge services: 34 minutes Time spent: Greater than 30 minutes Exam Narrative: AF 97.4 146/90 100 20 99% ra Gen - NARD Chest - left base crackles o/w clear. Nml RR. minor right lower anterior rib palpable pain CV - RRR S1/S2. Tele showing no acute findings. Abd - Soft, NT/ND, Positive BS Ext - No pedal edema. 2+ DP pulses bilaterally Psych - Nml mood and affect Skin - Warm and dry DS: Data Data Completed and Pending Labs on day of discharge: Labs from last 24 hours 08/09/24 08/09/24 08/09/24 11:46 07:55 04:07 WBC RBC Hgb Hct MCV MCH MCHC RDW Plt Count MPV Immature Gran % (Auto) Neut % (Auto) Lymph % (Auto) [place] % (Auto) Eos % (Auto) Baso % (Auto) Lymph # (Auto) [place] # (Auto) Eos # (Auto) Baso # (Auto) Abs Immat Gran (auto) Absolute Neuts (auto) Absolute Nucleated RBC Nucleated RBC % Sodium Potassium 3.4 Chloride 103 Carbon Dioxide 27 Anion Gap 7 BUN 11 Creatinine 0.54 L Estim Creat Clear Calc 53 Estimated GFR > 60 Glucose 76 POC Capillary Glucose 184 H 97 Calcium 8.6 Magnesium 1.9 Total Bilirubin 0.5 AST 25 ALT 13 Alkaline Phosphatase 103 Total Protein 6.8 Albumin 3.8 08/09/24 08/08/24 08/08/24 04:07 20:28 16:57 WBC 9.9 RBC 4.01 L Hgb 9.5 L Hct 31.0 L MCV 77.3 L MCH 23.7 L MCHC 30.6 L RDW 19.0 H Plt Count 303 MPV 9.6 Immature Gran % (Auto) 0.4 Neut % (Auto) 78.9 H Lymph % (Auto) 14.3 L [place] % (Auto) 6.2 Eos % (Auto) 0.0 Baso % (Auto) 0.2 Lymph # (Auto) 1.42 [place] # (Auto) 0.6 Eos # (Auto) 0.0 Baso # (Auto) 0.0 Abs Immat Gran (auto) 0.04 H Absolute Neuts (auto) 7.8 H Absolute Nucleated RBC 0.000 Nucleated RBC % 0.0 Sodium 137 Potassium 3.3 L Chloride Carbon Dioxide Anion Gap BUN Creatinine Estim Creat Clear Calc Estimated GFR Glucose POC Capillary Glucose 140 H 127 H Calcium Magnesium Total Bilirubin AST ALT Alkaline Phosphatase Total Protein Albumin Discharge Plan Discharge Attending physician on discharge: Ministerio Hernadez Consulting providers: Chema Foreman Discharging Clinician: Ministerio Hernadez Anticipated Discharge Date/Time: 08/09/24 16:42 Patient Disposition: Home Activity: as tolerated Diet: heart healthy Discharge Instructions: Check blood pressure 1 to 2 times a day. Record and bring into your doctor for review. Call your doctor if your blood pressure is greater than 180/110. Please complete your antibiotic course even if you are starting to feel well. Take precautions to avoid falls. Rise slowly from a lying or sitting position. Pause before standing or walking. Contact your doctor or call 911 and come to the Emergency Room if you have lightheadedness with standing or other worrisome symptoms. Avoid NSAIDs (ibuprofen, naproxen, Aleve). Tylenol is safe to take. Follow-up with your primary care provider in 1-2 weeks. Please call for appointment. Follow-up with [employer] [employer] [facility] in 3-4 weeks. Please call for an appointment. Thank you for using [facility] for your health care needs. Patient Instructions: Antibiotic Form, Safe Use of Anticoagulants (GEN), Stroke (GEN) Patient Language: Telugu Stand Alone Forms: General Discharge Information Follow-up/Referrals: David Pruitt MD [Primary Care Provider] - Call for Appointment Chema Foreman MD [Physician] - Call for Appointment Discharge Medications: Continued albuterol sulfate [Ventolin HFA] 90 mcg/actuation HFA aerosol inhaler 90 mcg INHALATION PRN PRN (Reason: Shortness Of Breath) rosuvastatin 10 mg Tablet 10 mg PO HS methotrexate sodium 2.5 mg tablet 2.5 mg PO WEEKLY Rx Instructions: Take 10 pills once a week montelukast 10 mg tablet 10 mg PO DAILY Qty: 30 6RF leflunomide 20 mg tablet 20 mg PO DAILY potassium chloride 10 mEq tablet extended release 10 meq PO DAILY (DME) FreeStyle Dmitry 2 Sensor Kit See Rx Instructions .Route Qty: 6 1RF Rx Instructions: As directed azelastine 137 mcg (0.1 %) spray,non-aerosol 1 spray INTRANASAL Q12H cyanocobalamin (vitamin B-12) 1,000 mcg tablet 2,000 mcg PO DAILY fluticasone propion-salmeterol 250-50 mcg/dose blister with device 1 inh INHALATION Q12H tirzepatide 7.5 mg/0.5 mL pen injector 7.5 mg subcut WEEKLY Rx Instructions: takes on Wednesday acetaminophen 500 mg capsule 1,000 mg PO Q4-6H PRN (Reason: pain) levocetirizine [24HR Allergy Relief] 5 mg tablet 5 mg PO DAILY PRN (Reason: allergy symptoms) insulin glargine U-300 conc [Toujeo Max U-300 SoloStar] 300 unit/mL (3 mL) insulin pen 40 unit subcut DAILY duloxetine 30 mg capsule,delayed release(DR/EC) 30 mg PO QAM Xarelto 20 mg Tablet 20 mg PO DAILY@1700 Qty: 6 1RF duloxetine 60 mg capsule,delayed release(DR/EC) 60 mg PO HS Qty: 90 2RF clopidogrel [Plavix] 75 mg tablet 75 mg PO DAILY Qty: 30 2RF levothyroxine 88 mcg tablet See Rx Instructions .ROUTE .COMPLEX Qty: 90 0RF Dose Instruction: Take 1 tablet by mouth once daily Rx Instructions: Take 1 tablet by mouth once daily hydrochlorothiazide 25 mg tablet See Rx Instructions .ROUTE .COMPLEX Qty: 90 2RF Dose Instruction: TAKE 1 TABLET BY MOUTH IN THE MORNING Rx Instructions: TAKE 1 TABLET BY MOUTH IN THE MORNING Other Ambulatory Orders: Vitamin B12 and Folic Acid (Routine) Timeframe: 1 Week Location: Determined by Patient Ordered By: Ministerio Hernadez Basic Metabolic Panel (Routine) Timeframe: 1 Week Location: Determined by Patient Ordered By: Ministerio Hernadez Iron and TIBC Panel (Routine) Timeframe: 1 Week Location: Determined by Patient Ordered By: Ministerio Hernadez Ferritin (Routine) Timeframe: 1 Week Location: Determined by Patient Ordered By: Ministerio Hernadez Magnesium (Routine) Timeframe: 1 Week Location: Determined by Patient Ordered By: Ministerio Hernadez CA cardiac event monitor (Routine) Timeframe: 1 Month Location: Determined by Patient Ordered By: Chema Foreman Date of admission: 08/07/24 17:32 Primary Care Provider: David Pruitt Admitting Provider: Lc Altamirano Attending physician on admission: Lc Altamirano Condition: Stable Hospitalist MIPS Heart Failure (Exclusion) Patient has history of Heart Transplant or Left Ventricular Assistive Device?: No IF YES, STOP HERE Heart Failure (Qualifier) Patient has current or prior documentation of LVEF less than or equal to 40%, or mod/servere depressed LVSF?: No IF NO, STOP HERE
[2024-08-09 16:31] LABS: Glucose Point of Care 160 mg/dl (65-105)
[2024-08-09] MEDS: RIVAROXABAN 20 MG TABLET PO (17:33)
--- NOTE | 2024-08-11 09:22 | PC.NURSE ---
Urine cx growing E. coli. Results shown to Dr. Hernadez. Pt dc on Cephalexin, which is susceptible.
== END 2024-08-09 17:50 | disposition home or self-care (01) ==
LOC: ANHED 15:05 → ANH2MED 19:59
PROVIDERS: Internal Medicine; Nurse Practitioner Family; Admitting Provider Family Medicine; Emergency Provider General Practice; PCP Family Medicine; Visit Provider Internal Medicine
DX: R55 Syncope and collapse (principal); R94.31 Abnormal electrocardiogram [ECG] [EKG]; E87.6 Hypokalemia; E11.65 Type 2 diabetes mellitus with hyperglycemia; I65.23 Occlusion and stenosis of bilateral carotid arteries; D64.9 Anemia, unspecified; I25.10 Atherosclerotic heart disease of native coronary artery without angina pectoris; I48.0 Paroxysmal atrial fibrillation; I10 Essential (primary) hypertension; E78.5 Hyperlipidemia, unspecified; I95.9 Hypotension, unspecified; J44.9 Chronic obstructive pulmonary disease, unspecified; J96.11 Chronic respiratory failure with hypoxia; Z99.81 Dependence on supplemental oxygen; E11.3299 Type 2 diabetes mellitus with mild nonproliferative diabetic retinopathy without macular edema, unspecified eye; E11.42 Type 2 diabetes mellitus with diabetic polyneuropathy; F41.8 Other specified anxiety disorders; E89.0 Postprocedural hypothyroidism; M05.9 Rheumatoid arthritis with rheumatoid factor, unspecified; G47.33 Obstructive sleep apnea (adult) (pediatric); C50.911 Malignant neoplasm of unspecified site of right female breast; Z17.0 Estrogen receptor positive status [ER+]; Z17.21 Progesterone receptor positive status; Z87.891 Personal history of nicotine dependence; Z79.02 Long term (current) use of antithrombotics/antiplatelets; Z79.4 Long term (current) use of insulin; Z79.51 Long term (current) use of inhaled steroids; Z79.85 Long-term (current) use of injectable non-insulin antidiabetic drugs; Z79.899 Other long term (current) drug therapy; Z86.73 Personal history of transient ischemic attack (TIA), and cerebral infarction without residual deficits; Z98.1 Arthrodesis status; Z90.49 Acquired absence of other specified parts of digestive tract; Z90.710 Acquired absence of both cervix and uterus
CPT/HCPCS: 36415; 70450; 71045; 72125; 80048; 80053; 81001; 82948; 83735; 84132; 84443; 84484; 85025; 85027; 85610; 85730; 87077; 87086; 87186; 93005; 93306; 94640; 96374; 96375; 99285; A9270; G0378; J1815

== ENCOUNTER 2024-11-23 12:54 | Outpatient (CLI) | payer MEDICARE, SELFPAY ==
--- OUTSIDE RECORDS SUMMARY | 2000-10-21 11:00 | XMS_ITS | Continuity of Care Document ---
Author Organization [facility] Address [address] [place] [address] [address] [place] [address] Phone Care Team Providers Care Tape Control Skin Or Spar Mill Operator Name Role Phone Felipe OD, Andrew Unavailable Unavailable Advance Directives Directive Yes / No Effective Date File Name No Information Encounters Encounter Description Practice Location Reason(s) For Visit Diagnoses Date Provider Providers Copied on Encounter [facility], [address], [place], [place], [id number], [place] tel:[phone] [facility] No Information Sep-2 3-200 1 Felipe OD Andrew. [address] , [address], [place], [address], [place]. tel:[phone] Family History Family Member Type Diagnosis Age At Onset No Information Payers Payer name Insurance type Covered democrat ID Authoriza tion(s) No Information Social History [...]
--- OUTSIDE RECORDS SUMMARY | 2024-09-14 12:30 | XMS_ITS ---
Author Organization [facility] [place] ([address]) Address [address] [place] [address] Care Team Providers Care Crosscutter Name Role Phone David Pruitt MD Primary Care Provider UnavailHerbert Zaragoza Unavailable [phone] Irineo Rivas Unavailable Unavailable Sean Brown Unavailable [phone] REASON FOR VISIT FASENRA BB Only Social History Sex Assigned At : Social History Observation Description Sex Assigned At Female Encounters Encounter Location Date Provider Diagnosis [facility] [address] [place] [address] 09/14/2024 Sean Brown Plan Of Treatment Next Appt Details Provider Name:Hailey Sotelo , 11/23/2024 04:15:00 PM, [facility], [address], [place], [address], Progress Notes * Rula GOLDSTEINDOB:1945 (79 yo F)Acc No.[id number]:09/14/2024 FASENRA Only Patient: Rula STRONG Provider: Glenn Brown MD :1945 A ge:78 Y S ex:Female Date:09/14/2024 Address:[address] [place], [place] [id number] Pcp:David Pruitt MD Subjective: * Chief Complaints: * 1 . FASENRA BB Only. * Medical History: Objective: * Vitals: Assessment: Plan: * Treatment: * Billing Information: * Visit Code: * Procedure Codes: * Electronic signature of Bianca Brown MD, FAAAAI on 11/23/2024 at 03:32 PM CDT Sign off status: Pending * Provider: Glenn Brown MD Date: 0 09/14/2024 Generated for Karine saldaña/Fady/Bebo on: 0 11/23/2024 03:32 PM CDT
--- OUTSIDE RECORDS SUMMARY | 2024-11-23 15:31 | XMS_ITS | Patient Health Record ---
Author Organization [facility] ([address]) Address [address] [place] [address] Care Team Providers Care Jailer Name Role Phone David Pruitt MD Primary Care Provider Unavaila Herbert Wong Unavailable [phone] Irineo Rivas Unavailable Unavailable Sean Brown Unavailable [phone] Hailey Sotelo Unavailable [phone] Johana Martinez Unavailable [phone] Nahed Avelar Unavailable [phone] Allergies Allergen (clinical drug ingredient) Drug/Non Drug Allergy documented on EMR Reaction Allergy Type Onset Date Status predniSONE worsening hyperglycemia/hyp ertension Drug Allergy Active metformin metFORMIN other reaction Drug Allergy Ac tive Reason For Referral No Information Medications Medication SIG (Take, Route, Frequency, Duration) Notes Start Date End Date Status CALTRATE 600 + D 600 mg-800 intl units 1 tab(s) orally 2 times a day Not-Taking LEVOTHYROXINE 150 mcg (0.15 mg) 1 tab(s) orally once a day Not-Taking DULoxetine HCl 60 MG 1 cap(s) orally once a day; Duration: 30 day(s) Not-Taking CYMBALTA 30 mg 1 cap(s) orally 2 times a day Not-Taking Levothyroxine Sodium 125 MCG 1 tab(s) orally once a day; Duration: 30 day(s) Not-Taking MULTIVITAMIN 1 po once a day N ot-Taking Rosuvastatin Calcium 10 MG 1 tab(s) orally once a day; Duration: 30 day(s) 1 Not-Taking Lantus 100 UNIT/ML 0 subcutaneously Not-Taking Folic Acid 1 MG 1 tab(s) orally once a day Not-Taking Methotrexate 2.5 MG 7 TAB(S) ORALLY ONCE A WEEK *Please review and pick correct strength-formul ation from [employer] options. If intended option is not shown, discontinue and re-order from Quick Search* 1 Not-Taking AIRDUO RESPICLICK 232 MCG-14 MCG/INH 1 INH INHALED 2 TIMES A DAY; Duration: 30 DAY(S) *Please review for potential replacement for e-prescription and drug interaction check* Not-Taking Pioglitazone HCl 15 MG 1 tab(s) orally once a day Not-Taking HUMALOG KWIKPEN (CONCENTRATED) 200 UNITS/ML INJECT UP TO 56 UNITS SUBCUTANEOUSLY THREE TIMES DAILY WITH MEALS; Duration: 14 *Please review for potential replacement for e-prescription and drug interaction check* Not-Taking Hibiclens 4% 1 AUGUST APPLIED TOPICALLY ONCE; Duration: 1 DAY(S) *Please review and pick correct strength-formul ation from [employer] options. If intended option is not shown, discontinue and re-order from Quick Search* Not-Taking Azelastine HCl 137 MCG/SPRAY 2 spray(s) intranasally BID, PRN; Duration: 30 day(s) Not-Taking DULOXETINE 60 mg 1 cap(s) orally once a day Not-Taking Metoprolol Succinate ER 25 MG 1 tab(s) orally once a day; Duration: 30 day(s) Not-Taking TRAMADOL 50 mg 1 tab(s) orally every 4 hours Not-Taking Omeprazole Magnesium 20 MG 1 tab(s) orally once a day; Duration: 14 day(s) Not-Taking FLUOXETINE 20 mg 1 cap(s) orally once a day Not-Taking Xiidra 5 % INSTILL 1 DROP INTO EACH EYE TWICE DAILY; Duration: 30 Not-Taking BACTRIM DS 800 mg-160 mg 1 tab(s) orally 2 times a day; Duration: 10 day(s) Not-Taking Toujeo Max SoloStar 300 UNIT/ML INJECT 100 UNITS SUBCUTANEOUSLY ONCE DAILY DIRECTED; Duration: 30 Not-Taking Bactrim DS 800-160 MG 1 tab(s) orally 2 times a day; Duration: 10 day(s) Not-Taking EpiPen 2-Makenzie 0.3 MG/0.3ML 0.3 mg intramuscularly once; Duration: 30 day(s) Not-Taking Multivitamin - 1 po once a day Not-Taking Lantus 100 UNIT/ML 0 subcutaneously Not-Taking amLODIPine Besylate 5 MG 1 tab(s) orally once a day Active ONE DAILY MULTI-ESSENTIAL MULTIPLE VITAMINS 1 TAB(S) ORALLY ONCE A DAY *Please review for potential replacement for e-prescription and drug interaction check* Not-Taking Rosuvastatin Calcium 10 MG 1 tab(s) orally once a day; Duration: 30 day(s) Not-Taking Losartan Potassium 50 MG 1 tab(s) orally once a day Active Claritin 10 MG 1 tab(s) orally once a day Not-Taking hydroCHLOROthiazide 25 MG 1 tab(s) orally once a day Active Caltrate 600+D Plus Minerals 600-800 MG-UNIT 1 tab(s) orally 2 times a day Not-Taking Bystolic 10 MG 1 tab(s) orally once a day Active traMADol HCl 50 MG 1 tab(s) orally every 4 hours Not-Taking TRIPLE ANTIBIOTIC 400 units-3.5 mg-5000 units/g 1 august applied topically bid; Duration: 7 day(s) Not-Taking NASACORT ALLERGY 24HR 55 mcg/inh 2 spray(s) intranasally once a day Not-Taking Bystolic 10 MG ; Duration: 90 Not-Taking CLARITIN 24 HOUR ALLERGY 10 mg 1 tab(s) orally once a day Not-Taking HUMALOG KWIKPEN (CONCENTRATED) 200 UNITS/ML ; Duration: 28 *Please review for potential replacement for e-prescription and drug interaction check* Not-Taking DULoxetine HCl 60 MG 1 cap(s) orally once a day Active OMEPRAZOLE 20 mg 1 cap(s) orally once a day Not-Taking Toujeo Max SoloStar 300 UNIT/ML INJECT 80 UNITS SUBCUTANEOUSLY ONCE DAILY; Duration: 90 Not-Taking Fasenra 30 MG/ML 30 MG SUBCUTANEOUSLY EVERY 8 WEEKS *Please review and pick correct strength-formul ation from [employer] options. If intended option is not shown, discontinue and re-order from Quick Search* Active HUMALOG 100 units/mL 0 subcutaneously Not-Taking Xolair 150 MG 300 mg subcutaneously every 4 weeks; Duration: 1 dose(s) Not-Taking Methotrexate 2.5 MG DIRECTED ORALLY ONCE A WEEK; Duration: 30 *Please review and pick correct strength-formul ation from [employer] options. If intended option is not shown, discontinue and re-order from Quick Search* Not-Taking Cetirizine HCl 10 MG 1 tab(s) orally once a day Active LANTUS 100 units/mL 0 subcutaneously Not-Taking EPINEPHRINE TWO-PACK 0.3 MG 0.3 MG INTRAMUSCULARLY ONCE; Duration: 1 DOSE(S) *Please review for potential replacement for e-prescription and drug interaction check* Not-Taking Xarelto 10 MG 1 tab(s) orally once a day Not-Taking XOLAIR 150 mg 300 mg subcutaneously every 4 weeks; Duration: 1 dose(s) Not-Taking Doxycycline Monohydrate 100 MG 1 cap(s) orally 2 times a day Not-Taking ALPHA-LIPOIC ACID 600 mg orally once a day Not-Taking Cymbalta 30 MG 1 cap(s) orally 2 times a day Not-Taking NYSTATIN 887275 units/mL 4 mL orally 4 t imes a day Not-Taking Ventolin HFA 108 (90 Base) MCG/ACT INHALE 2 PUFFS BY MOUTH EVERY 4 TO 6 HOURS NEEDED AND PER THE ASTHMA ACTION PLAN 17; Duration: 17 Not-Taking ASPIRIN 81 mg 1 tab(s) orally once a day Not-Taking SIT (TRADITIONAL) VARIABLE PER SCHEDULE SC PER SCHEDULE; Duration: TO BE DETERMINED *Please review for potential replacement for e-prescription and drug interaction check* Not-Taking Alpha-Lipoic Acid 600 MG orally once a day Active Nystatin 846522 UNIT/ML 4 mL orally 4 ti mes a day Active Levothyroxine Sodium 150 MCG 1 tab(s) orally once a day Active Cymbalta 30 MG 1 cap(s) orally 2 times a day Active Singulair 10 MG 1 tab(s) orally once a day Active METOPROLOL SUCCINATE ER 25 mg 1 tab(s) orally once a day Not-Taking Xolair 150 MG ; Duration: 28 N ot-Taking Toujeo Max SoloStar 300 UNIT/ML INJECT 100 UNITS SUBCUTANEOUSLY DAILY PER INSULIN PROTOCOL; Duration: 30 Active Valtrex 1 GM 1 tab(s) orally 2 times a day Not-Taking Metoprolol Succinate ER 25 MG 1 tab(s) orally once a day Active Triple Antibiotic 3.5-400-5000 1 august applied topically bid; Duration: 7 day(s) Active SPIRIVA 18 mcg 1 puff inhaled Qday Not-Taking LOSARTAN 50 mg 1 tab(s) orally once a day Not-Taking Symbicort 160-4.5 MCG/ACT Inhale 2 puffs by mouth twice daily; Duration: 30 Not-Taking NYSTATIN 314582 units/mL 5 mL orally, sw jennifer & swallow tid Not-Taking Mupirocin 2 % 1 august applied topically 2 times a day; Duration: 7 days Not-Taking Mounjaro 5 MG/0.5 ML DIRECTED SUBCUTANEOUSLY ONCE A WEEK *Please review and pick correct strength-formul ation from [employer] options. If intended option is not shown, discontinue and re-order from Quick Search* Active HYDROCHLOROTHIAZIDE 25 mg ; Duration: 90 Not-Taking Nasacort Allergy 24HR DIRECTED *Please re view and pick correct strength-formul ation from [employer] options. If intended option is not shown, discontinue and re-order from Quick Search* Not-Taking Potassium Chloride ER 10 MEQ 1 tab(s) orally 2 times a day; Duration: 30 day(s) Active ATORVASTATIN 40 mg 1 tab(s) orally once [...] 1 tab(s) orally once a day Not-Taking FLUoxetine HCl 20 MG 1 cap(s) orally once a day Not-Taking Fluticasone-Salmeterol 250-50 MCG/ACT 1 puff Inhalation Twice a day; Duration: 30 days Active Fluticasone-Salmeterol 113 MCG-14 MCG/INH 1 INH INHALED 2 TIMES A DAY; Duration: 30 DAY(S) *Please review and pick correct strength-formul ation from [employer] options. If intended option is not shown, discontinue and re-order from Quick Search* Active Fluticasone-Salmeterol 113 MCG-14 MCG/INH 1 INH INHALED 2 TIMES A DAY; Duration: 30 DAY(S) *Please review and pick correct strength-formul ation from [employer] options. If intended option is not shown, discontinue and re-order from Quick Search* Not-Taking PREDNISONE 20 mg 2 tab(s) orally once a day; Duration: 5 day(s) 0 Not-Taking SPIRIVA 18 mcg 1 cap(s) inhaled once a day Not-Taking HIBICLENS 4% 1 august applied topically once; Duration: 1 day(s) Not-Taking Trelegy Ellipta 200 MCG-62.5 MCG-25 MCG/INH 1 PUFF(S) INHALED ONCE A DAY; Duration: 90 DAYS *Please review and pick correct strength-formul ation from [employer] options. If intended option is not shown, discontinue and re-order from Quick Search* Not-Taking Spiriva HandiHaler 18 MCG 1 cap(s) inhaled once a day Not-Taking Cartia XT 180 MG 1 cap(s) orally once a day; Duration: 30 day(s) Active DULOXETINE 60 mg 1 cap(s) orally once a day Not-Taking FLUOXETINE 20 mg 1 cap(s) orally once a day Not-Taking LEVOTHYROXINE 150 mcg (0.15 mg) 1 tab(s) orally once a day Not-Taking Montelukast Sodium 10 MG 1 tab(s) orally once a day; Duration: 30 day(s) Not-Taking HUMALOG KWIKPEN 100 units/mL ; Duration: 18 Not-Taking MULTIVITAMIN 1 po once a day [...] tab(s) orally once a day Not-Taking PREDNISONE 5 mg 10 tab(s) orally once a day Not-Taking OMEPRAZOLE 40 mg 1 cap(s) orally once a day; Duration: 30 day(s) Not-Taking SPIRIVA RESPIMAT 1.25 mcg/inh 2 puff(s) inhaled once a day Not-Taking PREDNISONE 5 mg 10 tab(s) orally once a day Active VITAMIN D3 2000 intl units as directed orally once a day; Duration: 30 day(s) Not-Taking METHOTREXATE 2.5 mg 7 tab(s) orally once a week 1 Not-Taking AZELASTINE HYDROCHLORIDE NASAL 137 mcg/inh 2 spray(s) intranasally BID, PRN; Duration: 30 day(s) Not-Taking ANTIOXIDANT FORMULA Antioxidant Multiple Vitamins and Minerals as directed orally; Duration: 30 day(s) Not-Taking TRELEGY ELLIPTA 200 mcg-62.5 mcg-25 mcg/inh 1 puff(s) inhaled once a day; Duration: 90 days Not-Taking XIIDRA 5% INSTILL 1 DROP INTO EACH EYE TWICE DAILY; Duration: 30 Not-Taking TOUJEO MAX SOLOSTAR 300 units/mL INJECT 100 UNITS SUBCUTANEOUSLY ONCE DAILY DIRECTED; Duration: 30 Not-Taking ROSUVASTATIN 10 mg 1 tab(s) orally once a day; Duration: 30 day(s) 1 Not-Taking BYSTOLIC 10 mg 1 tab(s) orally once a day Active POTASSIUM CHLORIDE 10 mEq 1 tab(s) orally 2 times a day; Duration: 30 day(s) Not-Taking FOLIC ACID 1 mg 1 tab(s) orally once a day Not-Taking PIOGLITAZONE 15 mg 1 tab(s) orally once a day Not-Taking PREDNISONE 10 mg 1.5 tab(s) orally once a day Not-Taking PREDNISONE 10 mg 1.5 tab(s) orally once a day Active CARTIA XT 180 mg/24 hours 1 cap(s) orally once a day; Duration: 30 day(s) Not-Taking HYDROCHLOROTHIAZIDE 25 mg 1 tab(s) orally once a day Active MOUNJARO 5 mg/0.5 mL as directed subcutaneously once a week Not-Taking AMLODIPINE 5 mg 1 tab(s) orally once a day Active OMEPRAZOLE 20 mg 1 tab(s) orally once a day; Duration: 14 day(s) Not-Taking LOSARTAN 50 mg 1 tab(s) orally once a day Active PROAIR HFA 90 mcg/inh 2 puff(s) inhaled Q4-6 hours, PRN and per the asthma action plan Active ROSUVASTATIN 10 mg 1 tab(s) orally once a day; Duration: 30 day(s) Not-Taking MONTELUKAST 10 mg 1 tab(s) orally once a day; Duration: 30 days Active DULOXETINE 60 mg 1 cap(s) orally once a day; Duration: 30 day(s) Not-Taking EPIPEN 2-MAKENZIE 0.3 mg 0.3 mg intramuscularly once; Duration: 30 day(s) Active LEVOTHYROXINE 125 mcg (0.125 mg) 1 tab(s) orally once a day; Duration: 30 day(s) Not-Taking CETIRIZINE HYDROCHLORIDE 10 mg 1 tab(s) orally once a day Active METOPROLOL 25 mg 1 tab(s) orally once [...] e-prescription and drug interaction check* Not-Taking HumaLOG KwikPen 100 UNIT/ML ; Duration: 18 Not-Taking Ipratropium Pierce 0.06 % 1 spray Nasally Four times a day; Duration: 30 days As needed Active VENTOLIN HFA 90 mcg/inh INHALE 2 PUFFS B Y MOUTH EVERY 4 TO 6 HOURS NEEDED AND PER THE ASTHMA ACTION PLAN 17; Duration: 17 Not-Taking hydroCHLOROthiazide 25 MG ; Duration: 90 Not-Taking FLUTICASONE-SALMETEROL 113 mcg-14 mcg/inh 1 INH inhaled 2 times a day; Duration: 30 days Active TOUJEO MAX SOLOSTAR 300 units/mL INJECT 80 UNITS SUBCUTANEOUSLY ONCE DAILY; Duration: 90 Not-Taking Nasacort Allergy 24HR 55 MCG/ACT 2 spray(s) intranasally once a day Not-Taking FASENRA 30 mg/mL 30 mg subcutaneously every 8 weeks Active METHOTREXATE 2.5 mg as directed orally once a week; Duration: 30 Not-Taking AEROCHAMBER MDI SPACER - MOUTHPIECE (ADULT) N/A As directed PO Per asthma action plan Active XARELTO 10 mg 1 tab(s) orally once a day Not-Taking predniSONE 20 MG 2 tab(s) orally once a day; Duration: 5 day(s) 0 Not-Taking Spiriva HandiHaler 18 MCG 1 puff inhaled Qday Not-Taki ng Metoprolol Succinate ER 25 MG 1 tab(s) orally once a day Not-Taking FLUTICASONE-SALMETEROL 113 mcg-14 mcg/inh 1 INH inhaled 2 times a day; Duration: 30 day(s) Not-Taking amLODIPine Besylate 5 MG 1 tab(s) orally once a day Not-Taking CYMBALTA 30 mg 1 cap(s) orally 2 times a day Not-Taking MONTELUKAST 10 mg 1 tab(s) orally once a day; Duration: 30 day(s) Not-Taking XOLAIR 150 mg ; Duration: 28 N ot-Taking VALTREX 1 g 1 tab(s) orally 2 times a day Not-Taking BYSTOLIC 10 mg ; Duration: 90 Not-Taking DOXYCYCLINE monohydrate 100 mg 1 cap(s) orally 2 times a day Not-Taking Antioxidant Formula - as directed orally ; Duration: 30 day(s) Not-Taking Omeprazole 40 MG 1 cap(s) orally once a day; Duration: 30 day(s) Not-Taking Spiriva Respimat 1.25 MCG/ACT 2 puff(s) inhaled once a day Not-Taking predniSONE 10 mg 1.5 tab(s) orally once a day Not-Taking SYMBICORT 160 mcg-4.5 mcg/inh Inhale 2 puffs by mouth twice daily; Duration: 30 Not-Taking Omeprazole 20 MG 1 cap(s) orally once a day Not-Taking predniSONE 5 mg 10 tab(s) orally once a day Not-Taking MUPIROCIN 2% 1 august applied topically 2 times a day; Duration: 7 days Not-Taking Caltrate 600+D Plus Minerals 600-800 MG-UNIT 1 tab(s) orally 2 times a day Not-Taking NASACORT as directed Not-Amy ng DULoxetine HCl 60 MG 1 cap(s) orally once a day Not-Taking TRADJENTA 5 mg 1 tab(s) orally once a day Not-Taking Vitamin D3 50 MCG (2000 UT) as directed orally once a day; Duration: 30 day(s) Not-Taking Atorvastatin Calcium 40 MG 1 tab(s) orally once a day Not-Taking Cetirizine HCl 10 MG 1 tab(s) orally once a day Not-Taking Aspirin 81 MG 1 tab(s) chewed once a day Not-Taking Aspirin 81 MG 1 tab(s) orally once a day Not-Taking Omeprazole 20 MG 1 cap(s) orally once a day Not-Taking HumaLOG 100 UNIT/ML 0 subcutaneously Not-Taking Nystatin 072876 UNIT/ML 5 mL orally, swi sh & swallow tid Not-Taking Atorvastatin Calcium 40 MG 1 tab(s) orally once a day Not-Taking VANICREAM MOISTURIZING CREAM N/A NECESSARY APPLY TO EXTERNAL SURFACES OFTEN NEEDED TO FACE, HANDS, FEET OR BODY FOR DAILY USE BY THE ENTIRE FAMILY; Duration: 30 DAY(S) *Please review for potential replacement for e-prescription and drug interaction check* Not-Taking [id number] - 1 AUGUST APPLIED TOPICALLY 2 TIMES A DAY; Duration: 30 DAY(S) *Please review for potential replacement for e-prescription and drug interaction check* Not-Taking Immunizations Vaccine Route Administration Date Status Comme nts NOC Pneumovax 23 Unknown 05/06/2017 Refused Fluzone Quadrivalent Unknown 01/12/2017 Administered Fluzone Quadrivalent Unknown 01/09/2020 Administered Shingrix Unknown 03/09/2019 Administered NOC Fluzone Quadrivalent Unknown 05/26/2018 Refused Flucelvax Unknown 02/01/2019 Administered Flucelvax Unknown 04/01/2019 Administered NOC Flucelevax Quadrivalent Unknown 12/04/2019 Refused NOC Flucelevax Quadrivalent Unknown 12/28/2019 Refused Covid 19 (Shay & Shay) Unknown 05/03/2020 Adminis tered Social History Tobacco Use: Social History Observation Description Date Details (start date - stop date) Former Smoker NA - NA Sex Assigned At : Social History Observation Description Sex Assigned At Female Tobacco Control (Standard) Question Answer Notes Tobacco use: Former smoker AUDIT-C (Standard) Question Answer Notes Did you have a drink containing alcohol in the p ast year? No Points 0 Interpretation Negative Problems Problem Type SNOMED Code ICD Code Onset Dates Problem Status W/U Status Risk Notes Problem Chronic allergic conjunctivitis (81611213) Other chronic allergic conjunctivitis (H10.45) Active confirmed Problem Essential hypertension (81030736) Essential (primary) hypertension (I10) Active confirmed Problem Allergic rhinitis caused by pollen (disorder) (91181496) Allergic rhinitis due to pollen (J30.1) Active confirmed Problem Allergic rhinitis (78496627) Other allergic rhinitis (J30.89) Active confirmed Problem Chronic rhinitis (92396838) Chronic rhinitis (J31.0) Active confirmed Problem Chronic obstructive pulmonary disease (08708422) Chronic obstructive pulmonary disease, unspecified (J44.9) Active confirmed Problem Mild intermittent asthma (789189090) Mild intermittent asthma, uncomplicated (J45.20) Active confirmed Problem Uncomplicated mild persistent asthma (805678599) Mild persistent asthma, uncomplicated (J45.30) Active confirmed Problem Uncomplicated moderate persistent asthma (125864907) Moderate persistent asthma, uncomplicated (J45.40) Active confirmed Problem Uncomplicated severe persistent asthma (962723565) Severe persistent asthma, uncomplicated (J45.50) Active confirmed Problem Adverse effect o f glucocorticoids and synthetic analogues, subsequent encounter (T38.0X5D) Active confirmed Problem Allergic rhinitis caused by animal hair and dander (007353583299595) Allergic rhinitis due to animal (cat) (dog) hair and dander (J30.81) Active confirmed Problem Gastro-esophageal reflux disease without esophagitis (120179503) Gastro-esophageal reflux disease without esophagitis (K21.9) Active confirmed Problem Disorder of vocal cord (64019198) 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) Active confirmed Problem Eosinophilic asthma (976670512) 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) Active confirmed Vital Signs Respiratory Rate 18 /min 05/25/2024 Blood pressure diastolic 75 mm Hg 09/28/2024 Oximetry 100 % 09/28/2024 Height 61.50 in 09/28/2024 Blood pressure systolic 134 mm Hg 09/28/2024 Weight 120.8 lbs 05/25/2024 BMI 22.45 kg/m2 05/25/2024 Encounters Encounter Location Date Provider Diagnosis [facility] [address] [address] [facility]/25/[facility]24 Hailey Young Severe persistent asthma, uncomplicated J45.50 ; Eosinophilic asthma J82.83 ; Chronic obstructive pulmonary disease, unspecified J44.9 ; Hypoxemia R09.02 ; Allergic rhinitis due to pollen J30.1 ; Other allergic rhinitis J30.89 ; Other chronic allergic conjunctivitis H10.45 and Essential (primary) hypertension I10 [facility] [address] [employer] [facility] [address] [address] 03/30/2024 Hailey Young Severe persistent asthma, uncomplicated J45.50 ; Eosinophilic asthma J82.83 ; Chronic obstructive pulmonary disease, unspecified J44.9 ; Hypoxemia R09.02 ; Allergic rhinitis due to pollen J30.1 ; Other allergic rhinitis J30.89 ; Other chronic allergic conjunctivitis H10.45 and Essential (primary) hypertension I10 [facility] [address] [place] [phone] 01/13/2024 Johana Martinez Severe persistent asthma, uncomplicated J45.50 ; Eosinophilic asthma J82.83 ; Chronic obstructive pulmonary disease, unspecified J44.9 ; Hypoxemia R09.02 ; Allergic rhinitis due to pollen J30.1 ; Other allergic rhinitis J30.89 ; Other chronic allergic conjunctivitis H10.45 and Essential (primary) hypertension I10 [facility] [address] [place] [phone] 07/20/2024 Sean Brown Severe persistent asthma, uncomplicated J45.[address] [address] 09/28/2024 Sean Brown Severe persistent asthma, uncomplicated J45.[address] [address] 03/23/2024 Herbert Hancock [address] [address] 07/19/2024 Nahed Avelar Severe persistent asthma, uncomplicated J45.50 Assessments Encounter Date Diagnosis (ICD Code) Assessment Notes Treatment Notes Treatment Clinical Notes Section Notes 01/13/2024 Severe persistent asthma, uncomplicated (ICD-10 - [...] Severe persistent asthma, uncomplicated (ICD-10 - J45.50) 09/28/2024 Severe persistent asthma, uncomplicated (ICD-10 - J45.50) 03/30/2024 Chronic obstructive pulmonary disease, unspecified (ICD-10 - J44.9) Continue per pulmonary, Dr. Rivas 05/25/2024 Chronic obstructive pulmonary disease, unspecified (ICD-10 - J44.9) Continue per pulmonary, Dr. Rivas 01/13/2024 Chronic obstructive pulmonary disease, unspecified (ICD-10 - J44.9) Continue per pulmonary, Dr. Rivas 01/13/2024 Hypoxemia (ICD-10 - R09.02) Off day-time [...] inability to pump nasal spray with hands. 01/13/2024 Other allergic rhinitis (ICD-10 - J30.89) [...] intraocular antihistamine/ma st cell stabilizer, PRN 03/30/2024 Other chronic allergic conjunctivitis (ICD-10 - H10.45) Given ocular signs and symptoms I encouraged allergy avoidance measures and meds as above. If symptoms persist, consider adding additional medications including intraocular antihistamine/ma st cell stabilizer, PRN 01/13/2024 Other chronic allergic conjunctivitis (ICD-10 - H10.45) Given ocular signs and symptoms I encouraged allergy avoidance measures and meds as above. If symptoms persist, consider adding additional medications including intraocular antihistamine/ma st cell stabilizer, PRN 01/13/2024 Essential (primary) hypertension (ICD-10 - I10) [...] to stress over upcoming lumpectomy 03/30/2024 Other 01/06/2024 Other 07/20/2024 Other 01/13/2024 Other 03/23/2024 Other 05/25/2024 Other 09/28/2024 Other Plan Of Treatment Next Appt Details Provider Name:Hailey Sotelo , 11/23/2024 04:15:00 PM, [facility], [address], [address], Insurance Providers Payer Name Payer Address Payer Phone Subscriber Number Group Number Insured Name Patient Relationship to Insured Coverage Start Date Coverage End Date [employer] [address] [address] [place] [address] [id number] TristonRula andujar Self - patient is the insured [facility] [address] [place] [address] [id number] TristonKelli andujarela Self - patient is the insured Medical (General) History Medical History History ICD Code COPD/asthma overlap IDDM Hypothyroidism Hypertension GERD Depression Diverticulitis (with diverticulosis) NOS Herpesviral infection, unspecified Left eye infection - June 2017, July 2017 Left facial cyst, s/p I&D 08/31/17 (Dr. Perez-plastics) Atherosclerotic heart diseas e of [place] coronary artery without angina pectoris Obstructive sleep apnea (adult) (pediatr ic) G47.33 Allergic rhinitis due to pollen J30.1 Other allergic rhinitis J30.89 Other chronic allergic conjunctivitis H1 0.45 Surgical History Surgery Date(Month/Year) Colonoscopy Nov 2016 Cyst removal (face) 08/2017 lumpectomy 04/2024 Hospitalization History Reason Date(Month/Year) Heart issues/wheezing 12/2020 Minor stroke 2024
--- OUTSIDE RECORDS SUMMARY | 2024-11-23 15:32 | XMS_ITS | Encounter Summary ---
Author Organization [facility] Healthcare Address [address] [place] [address] Care Team Providers Care Forming Process Line Worker Name Role Phone David Pruitt MD Primary Care Provider Aram Oro MD Unavailable [phone] David Fried MD Unavailable [phone] Chema Foreman MD Unavailable [phone] Lobo Driscoll DO Unavailable [phone] Encounter Details Date Type Department Care Team (Late st Contact Info) Description 01/16/2024 Orders Only [facility] [place] [address] [place] [address] Scanning, Provider Social History Tobacco Use Types Packs/Day Years Used Date Smoking Tobacco: Former Smokeless Tobacco: Never Alcohol Use Standard Drinks/Week Comments No 0 (1 standard drink = 0.6 oz pur e alcohol) Comments Unknown Sex and Gender Information Value Date Recorded Sex Assigned at Not on file Legal Sex Female 12:20 AM NOTE TAKER Gender Identity Female 12/31/2023 2:40 PM CDT Sexual Orientation Asexual 12/31/2023 2: 43 PM CDT documented as of this encounter Plan of Treatment Not on file documented as of this encounter Procedures Procedure Name Priority Date/Time Associated Diagnosis Comments CARDIOLOGY DOCUMENT SCAN 01/16/2024 documented in this encounter Results * Cardiology Document Scan (01/16/2024) Anatomical Region Laterality Modality Other us Provider Scanning CV CARDIAC SERVICES PROCEDURES Final Result documented in this encounter Visit Diagnoses Not on filedocumented in this encounter Additional Health Concerns Infection Onset Date Last Indicated Resolved Time COVID: Suspected 06/02/2024 06/02/2024 06/02/2024 8:16 PM CDT COVID19 06/02/2024 06/02/2024 06/19/2024 3:05 AM CDT COVID: Recovered Comment:Added based on recent COVID infection. 06/19/2024 07/04/2024 09/17/2024 7:26 PM C DT documented as of this encounter Care Teams Forming Process Line Worker Relationship Specialty Start Date End Date David Pruitt MD [address] [place], [place] [id number] PCP - General Family Medicine 06/30/17 Aram Oro MD [facility] [address] [place], [place] [phone] Surgeon Surgery 02/29/24 David Fried MD [facility] [address] [place], [place] [phone] Radiation Oncologist Radiation Oncology 02/29/24 Chema Foreman MD [facility] [address] [place], [place] [address] Consulting Physician Interventional Cardiology 03/17/24 Lobo Driscoll DO [address] [facility] [address] [place], [place] [id number] Medical Oncologist/Receiving Operator Hematology and Oncology 09/06/24 documented as of this encounter
--- OUTSIDE RECORDS SUMMARY | 2024-11-23 15:32 | XMS_ITS | Encounter Summary ---
Author Organization [facility] Healthcare Address [address] [place] [address] Care Team Providers Care Draw Off Worker Name Role Phone Jeronimo Duke MD Primary Care Provider [phone] Forrest Wheat DO Primary Care Provider + Jeronimo Duke MD Primary Care Provider [phone] Forrest Wheat DO Primary Care Provider + Jeronimo Duke MD Primary Care Provider [phone] David Pruitt MD Primary Care Provider Aram Oro MD Unavailable [phone] David Fried MD Unavailable [phone] Chema Foreman MD Unavailable [phone] Lobo Driscoll DO Unavailable Encounter Details Date Type Department Care Team (Late st Contact Info) Description 09/05/2014 Orders Only [facility] [place] Information Management [address] [place] [address] Scanning, Provider Social History Tobacco Use Types Packs/Day Years Used Date Smoking Tobacco: Former Alcohol Use Standard Drinks/Week Comments No 0 (1 standard drink = 0.6 oz pur e alcohol) Comments Unknown Sex and Gender Information Value Date Recorded Sex Assigned at Not on file Legal Sex Female 12:20 AM BLADDER 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 Gender Identity Female 12/31/2023 2:40 PM CDT Sexual Orientation Asexual 12/31/2023 2: 43 PM CDT documented as of this encounter Plan of Treatment Not on file documented as of this encounter Procedures Procedure Name Priority Date/Time Associated Diagnosis Comments PULMONARY - RESULT SCAN 09/05/2014 documented in this encounter Results * PULMONARY - RESULT SCAN (09/05/2014) Anatomical Region Laterality Modality Other us Provider Scanning Final Result documented in this encounter Visit Diagnoses Not on filedocumented in this encounter Additional Health Concerns Infection Onset Date Last Indicated Resolved Time COVID: Suspected 06/02/2024 06/02/2024 06/02/2024 8:16 PM CDT COVID19 06/02/2024 06/02/2024 06/19/2024 3:05 AM CDT COVID: Recovered Comment:Added based on recent COVID infection. 06/19/2024 07/04/2024 09/17/2024 7:26 PM C DT documented as of this encounter Care Teams Draw Off Worker Relationship Specialty Start Date End Date Jeronimo Duke MD [address] [place] [address] PCP - General 05/12/13 08/30/16 Forrest Wheat DO [address] [place] [address] PCP - General 08/31/16 08/31/16 [place] [address] [place] [address] PCP - General 09/01/16 09/06/16 Forrest Wheat DO [address] [place] [address] PCP - General 09/07/16 11/10/16 Jeronimo Duke MD [address] [place] [address] PCP - General 11/11/16 06/29/17 David Pruitt MD [address] [place] [address] PCP - General Family Medicine 06/30/17 Aram Oro MD [address] [place] [address] [address] [place], [place] [phone] Surgeon Surgery 02/29/24 David Fried MD [address] [place] [address] Radiation Oncologist Radiation Oncology 02/29/24 Chema Foreman MD [address] [place] [id number] Consulting Physician Interventional Cardiology 03/17/24 Lobo Driscoll DO [address] [place] [id number] Medical Oncologist/Hematologis t Hematology and Oncology 09/06/24 documented as of this encounter
--- OUTSIDE RECORDS SUMMARY | 2024-11-23 15:32 | XMS_ITS | Clinical Summary ---
Author Organization [facility] Address [address] [place] [address] Care Team Providers Care District Wire Chief Name Role Phone David Pruitt MD Primary Care Provider Aram Oro MD Unavailable [phone] David Fried MD Unavailable [phone] Chema Foreman MD Unavailable [phone] Lobo Driscoll DO Unavailable [phone] Allergies Active Allergy Reactions Criticality Noted Date Comments Atorvastatin Muscle pain Medium 01/01/2019 Myalgias on atorvastatin 20 mg Celecoxib Hives High 04/20/2024 Flecainide Other (See comments) Low 01/21/2021 QT prolongation House Dust Iodinated Contrast Media Other (See comments) Medium 06/30/2017 Dizzy, hot, nauseated, no hives or wheezing. Metformin Chest tightness,Other (See comments) Medium 06/30/2017 Chest pain [place]-3 Fatty Acids Rash,Hives High 01/27/2018 Prednisone Other [...] injection 60 Units daily 01/16/20 22 Active leflunomide (ARAVA) 20 mg tablet Take [...] mouth 2 (two) times a day Active DULoxetine DR (CYMBALTA) 60 mg capsule Take 1 capsule (60 mg total) by mouth daily Active tiotropium bromide (SPIRIVA RESPIMAT) 2.5 mcg/actuation inhalerIndications :Bronchospasm Prevention with COPD Inhale 2 puffs daily 1 each 06/09/19 25 Active Additional Information Patient not taking.Reported on 09/22/2024 cyanocobalamin (Vitamin B-12) 2,000 mcg tabletIndications: B12 [...] directed 30 mL 3 07/06/19 25 Active Xarelto 20 mg tablet TAKE 1 TABLET BY MOUTH ONCE DAILY WITH SUPPER 90 tablet 08/17/19 25 Active oxyBUTYnin XL (DITROPAN-XL) 10 mg 24 hr tablet Take 1 tablet (10 mg total) by mouth daily 09/12/19 25 Active rosuvastatin (CRESTOR) 10 mg tabletIndications: Mixed hyperlipidemia,Cor onary artery disease involving [place] coronary artery of [place] heart without angina pectoris Take 1 tablet by mouth once daily 90 tablet 2 10/20/19 25 Active Active Problems Problem Noted Date Diagnosed Date Personal history of radiation therapy 09/06/2024 Asthma-COPD overlap syndrome 07/31/2024 Nocturnal hypoxia 07/09/2024 [...] from 07/19/2024: pT1c, cN0, cM0, G2, ER+, SC+, HER2- - Signed by David Fried MD [...] 01/27/2018 Assessment & Plan (01/27/2018 2:58 PM ADVERTISING VICE PRESIDENT): Reviewed chart and discussed blood work with patient. She denies any GI sx and says EGD 2 yrs ago and [id number] this year. Discussed posssibility of gi blood loss and offered EGD/Colonoscopy. At this time she declines and promises to follow blood counts with PMD promising to call if changes her mind Coronary artery disease invo lving [place] coronary artery of [place] heart without angina pectoris 01/26/2018 Mixed hyperlipidemia 01/26/2018 Diastolic dysfunction 01/26/2018 MATTHEWS (dyspnea on exertion) 06/30/2017 Uncomplicated asthma 06/30/2017 Mixed diabetic hyperlipidemi a associated with type 2 diabetes mellitus ([facility]) 06/30/2017 Lumbago 08/31/2016 Degeneration of intervertebral disc of lumbar re gion 08/31/2016 Resolved Problems Problem Noted Date Diagnosed Date Resolved Date Benign hypertensive heart di sease without heart failure 01/21/2021 02/04/2022 Excessive daytime sleepiness 01/21/2021 08/19/2021 Benign essential HTN 06/30/2017 021 Chest pain 01/10/2014 01/26/2018 Overview (06/05/2016): Chest pain Encounters Date Type Department Care Team Description 10/06/2024 1:46 PM CDT - 10/06/2024 11:59 PM CDT Hospital Encounter [facility] Medical Office Bldg [address] [place] [id number] [facility] [address] [place] [address] Malignant neoplasm of upper-outer quadrant of right female breast, unspecified estrogen receptor status (HCC) Discharge Disposition: Discharge to home or self care 09/22/2024 3:00 PM CDT Office Visit [facility] Cardiology [address] [place] [address] Makayla Ceron NP Coronary artery disease involving [place] coronary artery of [place] heart without angina pectoris (Primary Dx); Paroxysmal atrial flutter (HCC); Chronic anticoagulation; Essential hypertension; TIA (transient ischemic attack); Atherosclerosis of right carotid artery 09/18/2024 1:30 PM CDT Office Visit [facility] Medical Office Building 2 Radiation Oncology [address] [place] [address] Kaylan Jade PA Malignant neoplasm of upper-outer quadrant of right breast in female, estrogen receptor positive (HCC) (Primary Dx); Personal history of radiation therapy 09/15/2024 Results Follow-Up [facility] Medical [facility] Cardiology [address] [place] [address] Chema Foreman MD [facility] Mobile Cardiac Telemetry Event Monitor from Last 3 Months Surgical History Surgery Date Site/Laterality Comments TONSILLECTOMY 1949 Tonsillectomy APPENDECTOMY 1949 Appendectomy CHOLECYSTECTOMY 1975 Cholecystectomy THYROIDECTOMY 1966 Thyroidectomy CERVICAL DISCECTOMY 2005 Diskectomy, Cervical OTHER SURGICAL HISTORY Carpal tunnel surgery/2005 and 2006 BREAST BIOPSY 03/01/2023 - 02/29/2024 Right ULNAR TUNNEL RELEASE Bilateral CYST REMOVAL side of face BREAST LUMPECTOMY 04/07/2024 Right HYSTERECTOMY 03/01/1975 MASTECTOMY 03/01/1982 Left Medical History Medical History Date Comments DM (diabetes mellitus) History o f diabetes mellitus - (Added by TW Conv) Hypertension History of hyper tension - (Added by TW Conv) COPD (chronic obstructive pu lmonary disease) History of chronic obstructi ve lung disease [...] - (Added by TW Conv) Rheumatoid arthritis (HCC) 2020 S/P balloon dilatation of es ophageal stricture Mixed diabetic hyperlipidemi a associated with type 2 diabetes mellitus (CMS/HCC) (HCC) 06/30/2017 Iron deficiency anemia 01/27/2018 Paroxysmal atrial flutter (HCC) 01/21/2021 Vitiligo Lung disease Allergic rhinitis GERD (gastroesophageal reflu x disease) Hypothyroidism Breast cancer (HCC) left breast CA - 1982/right breast CA - 2024 History of radiation therapy rig ht breast 05/01/2024 thru 05/01/2024 (5 treatments) Family History Medical History Relation Name Comments [...] Years Used Date Smoking Tobacco: Former Cigarettes Smokeless Tobacco: Never Tobacco Cessation:Counseling Given: Not Answered Comments:Quit 1996 Alcohol Use Standard Drinks/Week Comments No 0 (1 standard drink = 0.6 oz pur e alcohol) [facility] Utilities Answer Date Recorded In the past 12 months has e [employer], gas, oil, or water [employer] threatened to shut off services in your home? No 06/05/2024 Social Connection and Isolation Panel Answer Date Recorded In a typical week, how many times do you talk on the phone with family, friends, or neighbors? More than three times a week 06/05/2024 How often do you get togethe r with friends or relatives? Twice a week 06/05/2024 How often do you attend chur ch or gnosticism services? Never 06/05/2024 Do you belong to any clubs o r organizations such as yazidism groups, unions, fraternal or athletic groups, or [...] any time in the past 12 m [facility], were you homeless or living in a fpc (including now)? No 06/05/2024 Personal Safety Answer Date Recorded Have you ever been in or are you currently in a harmful physical or emotional relationship or is someone making you feel afraid or unsafe? 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 Not on file Not on file Obstetrics History Para Term AB IAB SAB Ectopic Multiple Livin g Live Births 3 Date Outcome GA Total Labor Labor/2nd/3rd Weight Sex Type Anes PTL Neisha A1 A5 Name Clin Last Filed Vital Signs Vital Sign Reading Time Taken Comments Blood Pressure 112/64 09/22/2024 2:05 PM CDT Pulse 101 09/22/2024 2:05 PM CDT Temperature 36.3 C (97.4 F) 07/05/2024 2:50 PM CDT Respiratory Rate 18 07/05/2024 2:50 PM CDT Oxygen Saturation 97% 09/22/2024 2:05 PM CDT Inhaled Oxygen Concentration - - Weight 57.6 kg (127 lb) 10/06/2024 1:48 PM CDT Height 152.4 cm (5') 10/06/2024 1:48 PM CDT Body Mass Index 24.8 10/06/2024 1:48 PM CDT Plan of Treatment Health Maintenance Due Date Last Done Comments Albumin Creatinine Ratio, Urine 1945 Osteoporosis Screening-Bone Density Scan 1945 Dilated Eye Exam 1943 Foot Exam 1945 DTaP/Tdap/Td Vaccine (1 - Tdap) 09/30/1954 Hepatitis B Screening 09/30/1961 Well Visit 65+ 09/30/2008 Hemoglobin A1C 10/18/2024 04/20/2024, 03/31/2024 Covid-19 Vaccine (2023-04 5 season) 2024 12/21/2023, 01/08/2023, 02/04/2022, Additional history exists Influenza Vaccine (#1) 2024 , 01/08/2023, 01/28/2022, Additional history exists Lipid Panel 04/21/2025 04/21/2024, 07/31, 03/27/2019, Additional history exists Depression Screening 06/02/2025 06/02/2024, 06/03/19 25 Fall Risk Assessment 06/09/2025 06/09/2024 eGFR 06/09/2025 06/09/2024, 05/30, 06/08/2024, Additional history exists Zoster Vaccine Completed 03/09/2019, 12/13/2018 Pneumococcal vaccine 65+ Completed 03/17/2022, 09/2020 Medical Devices Implanted Type Area Prescription Benefit Specialist Device Identifier Shelf Expiration Date Model / Serial / Lot Engine [employer] [place] 20ga 5cm Reposition J Curve Wire [employer] Andrew Stabilizer [id number] - [id number] Implanted:Qty: 1 on 04/07/2024 by Eleazar Gavin MD at [facility] Right: Breast [employer] [id number] 01/12/2029 [id number] / / [id number] Procedures Procedure Name Priority Date/Time Associated Diagnosis Comments DIAGNOSTIC MAMMOGRAM RIGHT W SRINATH Schedule Routine, Read Routine (OP Routine) 10/06/2024 2:08 PM CDT Malignant neoplasm of upper-outer quadrant of right female breast, unspecified estrogen receptor status (HCC) EGFR Routine 06/09/2024 5:56 AM CDT HEMOGLOBIN A1C Routine 03/31/2024 3:12 PM ADVERTISING VICE PRESIDENT Pre-op testing Diabetes mellitus due to underlying condition with complication (HCC) POCT LIPID PANEL Routine 08/19/2021 5:01 PM CDT Mixed diabetic hyperlipidemia associated with type 2 diabetes mellitus (HCC) from Last 3 Months or Most Recently Relevant to Health Maintenance Results * Diagnostic Mammogram Right W Srinath (10/06/2024 2:08 PM CDT) Anatomical Region Laterality Modality Breast Right Mammography 10/06/2024 2:42 PM CDT Impressions 10/06/2024 2:42 PM CDT Expected mammographic appearance of the right breast following breast conserving therapy.] Right breast residual postoperative hematoma has decreased in size since May 2024. OVERALL FINAL ASSESSMENT: BI-RADS Category 2: Benign. RECOMMENDATION: Recommend continued close clinical follow-up and self breast examination. Screening mammography of the right breast in one year is also recommended. Electronically signed by: Eleazar Gavin M.D. 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 Her postoperative course was complicated by a right breast hematoma. History of remote left breast ductal carcinoma status post modified radical mastectomy and axillary lymph node dissection. COMPARISON: CT chest dated 05/30/2024 and 05/04/2024. Mammographic needle localization and breast surgical specimen radiograph dated 04/07/2024. Ultrasound guided breast biopsy dated 01/20/2024. Diagnostic mammogram and breast ultrasound dated 12/21/2023. Screening mammogram dated 11/24/2023, 2022, and 09/29/2021. TECHNIQUE: Full field digital mammographic views of the RIGHT breast were performed, including computer aided detection (CAD) and digital breast tomosynthesis (DBT). BREAST PARENCHYMAL COMPOSITION: There are scattered areas of fibroglandular density. MAMMOGRAM FINDINGS: There are new changes of breast conserving therapy in the right breast. Included among these are postoperative changes at the site of prior lumpectomy in the upper outer quadrant. There is a focal asymmetry measuring up to 6 cm within the lumpectomy bed. This represents a residual postoperative hematoma, which has decreased in size from prior CT examinations. There is also new thickening of the right breast skin and trabecula, in keeping with prior radiation therapy. Accounting for the patient's interval right breast surgery and radiation therapy, no definite new suspicious finding is identified in the right breast on mammogram. us Aram Oro MD IMG MAMMO PROCEDURES Final Result * eGFR (06/09/2024 5:56 AM CDT) eGFR [...] last reviewed 2020. Testing performed by: [facility], [address] [place] [address]., [id number] Blood 06/09/2024 5:56 AM CDT 06/09/2024 6:12 AM CDT us Colt Landis MD LAB BLOOD ORDERABLES F inal Result [facility] [address] [facility] Department [place] [address] * (ABNORMAL) Hemoglobin A1c (03/31/2024 3:12 PM ADVERTISING VICE PRESIDENT) Hgb A1C 5.9(H) 4.0 - 5.6 % Comment:Testing performed by : [facility], [address] [place] [address]., [id number] Estimated Average Glucose 123 mg/dL KISHA Comment: The ADA recommends reporting an estimated Average Glucose (eAG) with all Hemoglobin A1c results using the equation derived from a study of 507 normal and diabetic adults. Minority populations were underrepresented and children were not included. (Diabetes Care 31:1839-5223, 2008). The eAG is not equivalent to a fasting glucose. Testing performed by: [facility], [address] [place] [address]., [id number] Blood 03/31/2024 3:12 PM ADVERTISING VICE PRESIDENT 03/31/2024 3:22 PM ADVERTISING VICE PRESIDENT Narrative DANNYELVIN - 03/31/2024 5:28 PM ADVERTISING VICE PRESIDENT PRE SURGICAL TESTING ONLY--04/07/2024--Surgeons and Role: * Aram Oro MD - Primary-@ANPROCEDURE@ Eleazar Ibrahim MD LAB BLOOD ORDERABL ES Final Result [facility] [address] [facility] [place] [address] * POCT lipid panel (08/19/2021 [...] Recently Relevant to Health [place] [address] [address] [place] [id number] MEDICARE RAILROAD [facility] MEDICARE RAILROAD [facility] Advance Directives For more information, please contact: [phone] * Full Code (Latest Code Status on File) Date Activated Date Inactivated Comments 06/05/2024 7:54 AM 06/09/2024 5:12 PM * Full Code Date Activated Date Inactivated Comments 05/04/2024 10:26 PM 05/07/2024 3:47 PM Care Teams District Wire Chief Relationship Specialty Start Date End Date David Pruitt MD [address] [place] [address] PCP - General Family Medicine 06/30/17 Aram Oro MD [address] [place] [address] [address] [place], [place] [phone] Surgeon Surgery 02/29/24 David Fried MD [facility] [address] [place] [address] Radiation Oncologist Radiation Oncology 02/29/24 Chema Foreman MD [address] [place] [address] Consulting Physician Interventional Cardiology 03/17/24 Lobo Driscoll DO [address] [place] [id number] Medical Oncologist/Drafter [employer] Hematology and Oncology 09/06/24
--- OUTSIDE RECORDS SUMMARY | 2024-11-23 15:32 | XMS_ITS | Clinical Summary ---
Author Organization [facility] Address [address] [place] [address] Phone Care Team Providers Care Radiagraph Operator Name Role Phone David Pruitt MD Primary Care Provider [phone] Allergies Active Allergy Reactions Criticality Noted Date Comments Atorvastatin Muscle Pain Medium 01/01/2019 Myalgias on atorvastatin 20 mg Celecoxib Hives High 04/20/2024 Fish Oil Hives High 04/20/2024 Flecainide Other (See Comments) Low 01/21/2021 QT prolongation Iodinated Contrast Media Other (See Comments) Medium 06/30/2017 Dizzy, hot, nauseated, no hives or wheezing. Metformin Other (See Comments) 04/20/2024 Chest pain [place]-3 Fatty Acids Hives,Rash High 01/27/2018 Prednisone Other [...] mouth daily. 30 Tablet 04/22/2024 1:32 PM CITY ENGINEER 5 Active albuterol sulfate HFA 90 mcg/actuation [...] Encounters Date Type Department Care Team Description 10/17/2024 External Device Data STL ABSTRACTION Provider, Abstract 10/04/2024 External Device Data [facility] ABSTRACTION Provider, Abstract 09/13/2024 External Device Data [facility] ABSTRACTION Provider, Abstract 09/12/2024 External Device Data [facility] ABSTRACTION Provider, Abstract from Last 3 Months Family History Medical History Relation Name Comments Diabetes Father Lena Turcios Hypertension Father Lena Turcios Stroke Father Lena Turcios Diabetes Mother Yasemin Turcios Hypertension Mother Yasemin Turcios Lung Cancer Mother Yasemin Turcios Diabetes Other [...] on file Legal Sex Female 3:10 PM CITY ENGINEER Gender Identity Not on file Sexual Orientation Not on file Last Filed Vital Signs Vital Sign Reading Time Taken Comments Blood Pressure 144/85 06/13/2024 2:33 PM CDT Pulse 98 06/13/2024 2:33 PM CDT Temperature 37.1 C (98.7 F) 06/13/2024 2:33 PM CDT Respiratory Rate 18 04/22/2024 12:42 PM CITY ENGINEER Oxygen Saturation 99% 06/13/2024 2:33 PM CDT Inhaled Oxygen Concentration - - Weight 56.2 kg (124 lb) 06/13/2024 2:33 PM CDT Height 154.9 cm (5' 1) 06/13/2024 2:33 PM CDT Body Mass Index 23.43 06/13/2024 2:33 PM CDT Plan of Treatment Upcoming Encounters Date Type Department Care Team (Late st Contact Info) Description 01/02/2025 10:15 AM CITY ENGINEER Appointment [facility] Heart and Vascular Testing [address] [place] [address] [place] [address] [place] [address] 01/02/2025 11:15 AM CITY ENGINEER Office Visit [facility] Heart and Vascular Surgery [address] [facility] [address] [facility] [address] [place] [address] [place] [address] [address] [facility] [address] [place] [address] Health Maintenance Due Date Last [...] 1-dose 75+ series) 09/30/2018 INFLUENZA VACCINE (#1) 2024 DIABETES HBA1C Q 6 MONTHS 10/18/2024 04/20/2024, LDL CHOLESTEROL ANNUAL 04/21/2025 04/21/2024 Procedures Procedure Name Priority Date/Time Associated Diagnosis Comments LIPID PANEL Routine 04/21/2024 1:22 AM CITY ENGINEER HEMOGLOBIN A1C Routine 04/20/2024 10:39 PM CITY ENGINEER from Last 3 Months or Most Recently Relevant to Health Maintenance Results * (ABNORMAL) LIPID PANEL (04/21/2024 1:22 AM CITY ENGINEER) [facility] CHOLESTEROL 99 <200 mg/dL 04/21/2024 2:26 AM CITY ENGINEER [facility]OR[facility] TRIGLYCERIDE 90 <150 mg/dL 04/21/2024 2:26 AM [facility] [employer] [facility] HDL 39(L) 40 - 59 mg/dL 04/21/2024 2:26 AM [facility] LDL CALCULATED 42 <100 mg/dL 04/21/2024 2:26 AM [facility] [employer] [facility] NON-HDL CHOLESTEROL 60 <130 mg/dL 04/21/2024 2:26 AM [facility] [employer] [facility] Blood Venipuncture / Unknown 04/21/2024 1:22 AM CITY ENGINEER 04/21/2024 1:49 AM [facility] [employer] [facility] - 04/21/2024 2:26 AM CITY ENGINEER TOTAL CHOLESTEROL mg/dL Desirable <200 Borderline high [...] Reference Ranges for Lipid Panels (NCEP/AMA) . Keny Lanza MD CHEMISTRY ORDERABLES Final Resul t [facility] [employer] [facility]# [id number] [address] [facility] [address] [place], [place] [id number] * (ABNORMAL) HEMOGLOBIN A1C (04/20/2024 10:39 PM CITY ENGINEER) HEMOGLOBIN A1C 6.9(H) <5.7 % 04/20/2024 11:22 PM [facility] [employer] [facility] EST. AVG GLUCOSE, A1C 151 mg/dL 04/20/2024 11:22 PM [facility] [employer] [facility] Blood Venipuncture / Unknown 04/20/2024 10:39 PM CITY ENGINEER 04/20/2024 10:49 PM CITY ENGINEER Narrative [facility] - 04/20/2024 11:22 PM CITY ENGINEER HGB A1C INTERPRETATION NORMAL: <5.7% PRE-DIABETES: 5.7 - 6.4% DIABETES: 6.5% OR GREATER Keny Lanza MD CHEMISTRY ORDERABLES Final Resul t [facility] [employer] [facility] CLIA# [id number] [address] [place] [address] from Last 3 Months or Most Recently Relevant to Health [place] [address] MEDIC[address] [facility] [id number] RX [employer] RX Member Subscriber Plan / Payer (Ef fective 2015-Present) Name:Rula Goldstein Relation to Subscriber:Self Name:Rula Goldstein Payer ID:Not on file Group ID:[id number] Type:RX Medicare Part D Address: [address] Advance Directives For more information, please contact: [phone] * Default Full Code - Needs Discussion (Latest Code Status on File) Date Activated Date Inactivated Comments 04/20/2024 10:20 PM 04/22/2024 3:48 PM Care Teams Radiagraph Operator Relationship Specialty Start Date End Date David Pruitt MD [address] [facility] [address] [place] [address] PCP - General Family Practice 05/05/24
--- OUTSIDE RECORDS SUMMARY | 2024-11-23 15:32 | XMS_ITS | Clinical Summary ---
Author Organization [facility] Address [address] [place] [address] Phone Care Team Providers Care Waiter/Waitress Head Name Role Phone Unavailable Primary Care Provider Unavailabl e Allergies Active Allergy Reactions Criticality Noted Date Comments Fish Oil 12/05/2020 Medications montelukast (Singulair) 10 MG tablet Take 10 mg by mouth 1 (one) time each day in the morning Active DULoxetine (CYMBALTA) [address] capsule Take 60 mg by mouth 1 (one) time each day Do not crush or chew. Active hydroCHLOROthiaz grover (HYDRODIURIL) 25 MG tablet Take 25 mg [...] 1 (one) time each day Active Calcium Carbonate-Vitami n D (CALTRATE 600+D PO) Take by mouth [...] Do not crush or chew. Active Tiotropium [place] Monohydrate (SPIRIVA HANDIHALER IN) Inhale 1 (one) [...] at Not on file Legal Sex Female 3:05 PM MDT Gender Identity Not on file Sexual Orientation Not on file Last Filed Vital Signs Vital Sign Reading Time Taken Comments Blood Pressure 133/65 12/05/2020 3:37 PM CDT Pulse 96 12/05/2020 3:37 PM CDT Temperature - - Respiratory Rate - - Oxygen Saturation - - Inhaled Oxygen Concentration - - Weight 86.6 kg (191 lb) 04/15/2021 1:13 PM MEDIA PROMOTER Height 157.5 cm (5' 2) 04/15/2021 8:51 AM MEDIA PROMOTER Body Mass Index 34.93 04/15/2021 8:51 AM MEDIA PROMOTER Plan of Treatment Health Maintenance Due Date Last Done Comments Pneumococcal PPSV23/PCV13 65 + Years / Low and Medium Risk (1 of 2 - PCV) 09/30/1993 Influenza Vaccine (#1) 2024 Insurance MEDICARE RAILROAD MEDICARE RAILROAD [facility]
--- OUTSIDE RECORDS SUMMARY | 2024-11-23 15:32 | XMS_ITS | Clinical Summary ---
Author Organization [facility] Address [address] [place] [address] Care Team Providers Care Welding Manager Name Role Phone Unavailable Primary Care Provider Unavailabl e Source Comments [facility],non-owned Affiliates and Associated Physician Practices is amultiple site organization consisting of ambulatory clinics and hospital sitesin [place], [place], [place] and [place]. This disclosure is being madepursuant to the Care Everywhere program and may not contain all information available regarding this patient. Last updated 17.[facility] Ninite Social History Tobacco Use Types Packs/Day Years Used Date Smoking Tobacco: Never Assessed Comments Unknown Sex and Gender Information Value Date Recorded Sex Assigned at Not on file Legal Sex Female 6:29 AM DISTRIBUTION TECH Gender Identity Not on file Sexual Orientation [...] yrs (1 - 1-dose 75+ series) 09/30/2018 DEPRESSION SCREENING 03/01/2024 COVID-19 VACCINE ( - 2023-2 5 season) 2024 INFLUENZA VACCINE (#1) 2024 HEPATITIS B VACCINE Aged Out No [...] age to complete this topic [place] [address] [facility] SELF PAY NO INSURANCE Member Subscriber Plan / Payer (Ef fective for All Dates) Name:Rula Goldstein Member ID:Not on file Relation to Subscriber:Not on file Name:RULA GOLDSTEIN Subscriber ID:Not on file (Home) Address: [address] [address] Payer ID:Not on file Group ID:Not on file Type:Self Pay Address: [place], [place]
--- OUTSIDE RECORDS SUMMARY | 2024-11-23 15:32 | XMS_ITS | Encounter Summary ---
Author Organization [facility] Address [address] [place] [address] Care Team Providers Care Professional Skateboarder Name Role Phone David Pruitt MD Primary Care Provider Aram Oro MD Unavailable [phone] David Fried MD Unavailable [phone] Chema Foreman MD Unavailable [phone] Lobo Driscoll DO Unavailable [phone] Encounter Details Date Type Department Care Team (Late st Contact Info) Description 08/07/2024 Orders Only [facility] Health Information Management [address] [place] [address] Scanning, Provider Social History Tobacco Use Types Packs/Day Years Used Date Smoking Tobacco: Former Smokeless Tobacco: Never Comments:Quit 1996 Alcohol Use Standard Drinks/Week Comments No 0 (1 standard drink = 0.6 oz pur e alcohol) [facility] Utilities Answer Date Recorded In the past 12 months has [employer], gas, oil, or water [employer] threatened to shut off services in your home? No 06/05/2024 Social Connection and Isolation Panel Answer Date Recorded In a typical week, how many times do you talk on the phone with family, friends, or neighbors? More than three times a week 06/05/2024 How often do you get togethe r with friends or relatives? Twice a week 06/05/2024 How often do you attend [facility] or jew services? 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 Not on file Not on file documented as of this encounter Plan of Treatment Not on file documented as of this encounter Procedures Procedure Name Priority Date/Time Associated Diagnosis Comments SCAN - RADIOLOGY/IMAGING 08/07/2024 CARDIOLOGY DOCUMENT SCAN 08/07/2024 documented in this encounter Results * SCAN - RADIOLOGY/IMAGING (08/07/2024) Anatomical Region Laterality Modality Other us Provider Scanning Final Result * Cardiology Document Scan (08/07/2024) Anatomical Region Laterality Modality Other us Provider Scanning CV CARDIAC SERVICES PROCEDURES Final Result documented in this encounter Visit Diagnoses Not on filedocumented in this encounter Additional Health Concerns Infection Onset Date Last Indicated Resolved Time COVID: Recovered Comment:Added based on recent COVID infection. 06/19/2024 07/04/2024 09/17/2024 7:26 PM C DT documented as of this encounter Care Teams Professional Skateboarder Relationship Specialty Start Date End Date David Pruitt MD [address] [facility] [address] [place] [address] PCP - General Family Medicine 06/30/17 Aram Oro MD [address] [facility] [address] [place], [place] [id number] Surgeon Surgery 02/29/24 David Fried MD [address] [facility] [address] [place], [place] [id number] Radiation Oncologist Radiation Oncology 02/29/24 Chema Foreman MD [address] [facility] [address] [place] [address] Consulting Physician Interventional Cardiology 03/17/24 Lobo Driscoll DO [address] [facility] [address] [place] [address] Medical Oncologist/Turning Sander Tender Hematology and Oncology 09/06/24 documented as of this encounter
--- OUTSIDE RECORDS SUMMARY | 2024-11-23 15:32 | XMS_ITS ---
Author Organization [facility] Address [address] [place] [address] Care Team Providers Care Unix Analyst Name Role Phone David Pruitt MD Primary Care Provider Aram Oro MD Unavailable [phone] David Fried MD Unavailable [phone] Chema Foreman MD Unavailable [phone] Lobo Driscoll DO Unavailable [phone] Active Problems Problem Noted Date Diagnosed Date [...] from 03/11/2024:Stage IA(cT1c, cN0, cM0, G1, ER+, TN+, HER2: Equivocal) - Signed by David Fried MD on 03/11/2024 Pathologic stage from 07/19/2024: pT1c, cN0, cM0, G2, ER+, TN+, HER2- - Signed by David Fried MD [...] 01/27/2018 Assessment & Plan (01/27/2018 2:58 PM CHILDREN'S LITERATURE PROFESSOR): Reviewed chart and discussed blood work with patient. She denies any GI sx and says EGD 2 yrs ago and [id number] this year. Discussed posssibility of gi blood loss and offered EGD/Colonoscopy. At this time she declines and promises to follow blood counts with PMD promising to call if changes her mind Coronary artery disease invo lving [place] coronary artery of [place] heart without angina pectoris 01/26/2018 Mixed hyperlipidemia [...] Episode Provider 07/31/2024 08/04/2024 Treatment Courses* Course [id number] 07/31/2024 - 08/04/2024 Treatment Period Fraction Dose Fractions [...]
--- NOTE | 2024-11-24 13:24 | WPDSIXMINUTE ---
Six Minute Walk Procedure Procedure Performed Pulmonary Stress Test (6 min walk) Six Minute Walk Six Minute Walk: This is a 6 minute walk test. The test was performed and interpreted in accordance with the 2014 ERS/ATS task force guidelines. Of note, patient uses a wheeled walker during the test. Findings: The patient's resting room air oxygen saturation measured by pulse oximetry was 97%, the heart rate was 111 bpm, and the modified Ranjit dyspnea score was 0. Patient ambulated for 91 meters and oxygen saturation remained 95 to 96%. At the end of the study the heart rate was 126 bpm and the modified Ranjit dyspnea score was 1. The patient did not qualify for supplemental oxygen at rest or with ambulation. There are no prior studies for comparison.
== END 2024-11-23 12:55 | disposition home or self-care (01) ==
LOC: ANHPFT 12:57
PROVIDERS: PCP Family Medicine; Visit Provider Internal Medicine Critical Care Medicine
DX: J44.9 Chronic obstructive pulmonary disease, unspecified (principal)
CPT/HCPCS: 94618

== ENCOUNTER 2024-12-20 19:12 | Emergency (ER) | payer MEDICARE, SELFPAY ==
--- OUTSIDE RECORDS SUMMARY | 2000-10-21 11:00 | XMS_ITS | Continuity of Care Document ---
Author Organization [facility] Address [address] [place] [address] [address] [place] [address] Phone Care Team Providers Care Trolley Coach Driver Name Role Phone Felipe OD, Andrew Unavailable Unavailable Advance Directives Directive Yes / No Effective Date File Name No Information Encounters Encounter Description Practice Location Reason(s) For Visit Diagnoses Date Provider Providers Copied on Encounter [facility], [address], [place], [place], [id number], [place] tel:[phone] [facility] No Information Sep-2 3-200 1 Felipe OD Andrew. [address] , [address], [place], [address], [place]. tel:[phone] Family History Family Member Type Diagnosis Age At Onset No Information Payers Payer name Insurance type Covered libertarian ID Authoriza tion(s) No Information Social History Type Description Quantity Date Captured Comments Sex Female Smoking Status No Information Chief Complaint And Reason For Visit No Information Reason For Referral Reason For Referral No Information History Of Present Illness Encounter Date Complaint History Of Prese nt Illness No Information Functional Status Date Functional Assessmen t No Information Instructions Date Instruction Additional Infor mation No Information Assessments Type Assessment Date No Information Patient Care Teams Name Effective Dates (start - stop) Status Members No Information
--- OUTSIDE RECORDS SUMMARY | 2000-10-21 11:00 | XMS_ITS | Continuity of Care Document ---
Author Organization [facility] Address [address] [place] [address] [address] [place] [address] Phone Care Team Providers Care Dovetail Machine Operator Name Role Phone Felipe OD, Andrew Unavailable Unavailable Advance Directives Directive Yes / No Effective Date File Name No Information Encounters Encounter Description Practice Location Reason(s) For Visit Diagnoses Date Provider Providers Copied on Encounter [facility], [address], [place], [place], [id number], [place] tel:[phone] [facility] No Information Sep-2 3-200 1 Felipe OD Andrew. [address] , [address], [place], [address], [place]. tel:[phone] Family History Family Member Type Diagnosis Age At Onset No Information Payers Payer name Insurance type Covered republican ID Authoriza tion(s) No Information Social History [...]
--- OUTSIDE RECORDS SUMMARY | 2024-01-06 12:30 | XMS_ITS ---
Author Organization [facility], [facility] [place] ([id number]) Address [address] [place] [address] Care Team Providers [facility] Name Role Phone David Pruitt MD Primary Care Provider UnavailHerbert Zaragoza Unavailable [phone] Irineo Rivas Unavailable Unavailable Hailey Sotelo Unavailable [phone] REASON FOR VISIT ACOS Continues on Spiriva 1.25 RM and AirDuo, switched from Symbicort due to insurance. On q 8 weekFasenra injections. Passed WT, no longer has use 02 during the day, wears 3L at night per Pulmonology, ARC, holding SCIT. MM 12/2017, Has rheumatoid and osetoarthritis, on MTX and prednisone. Followed by butter wrapper, On Nutrisystem and weight loss injection - doing well with weight loss. Medications Medication SIG (Take, Route, Frequency, Duration) Notes Start Date End Date Status Fluticasone-Salmeterol 113-14 MCG/ACT INHALE 1 PUFF TWICE DAILY; Duration: 30 Not-Taking Lantus 100 UNIT/ML 0 subcutaneously Not-Taking Multivitamin - 1 po once a day Not-Taking Pioglitazone HCl 15 MG 1 tab(s) orally once a day Not-Taking Folic Acid 1 MG 1 tab(s) orally once a day Not-Taking [id number] - 1 AUGUST APPLIED TOPICALLY 2 TIMES A DAY; Duration: 30 DAY(S) *Please review for potential replacement for e-prescription and drug interaction check* Not-Taking VANICREAM MOISTURIZING CREAM N/A NECESSARY APPLY TO EXTERNAL SURFACES OFTEN NEEDED TO FACE, HANDS, FEET OR BODY FOR DAILY USE BY THE ENTIRE FAMILY; Duration: 30 DAY(S) *Please review for potential replacement for e-prescription and drug interaction check* Not-Taking Atorvastatin Calcium 40 MG 1 tab(s) orally once a day Not-Taking Nystatin 450494 UNIT/ML 5 mL orally, swi sh & swallow tid Not-Taking Hibiclens 4% 1 AUGUST APPLIED TOPICALLY ONCE; Duration: 1 DAY(S) *Please review and pick correct strength-formul ation from [employer] [place] options. If intended option is not shown, discontinue and re-order from Quick Search* Not-Taking HumaLOG 100 UNIT/ML 0 subcutaneously Not-Taking Omeprazole 20 MG 1 cap(s) orally once a day Not-Taking Aspirin 81 MG 1 tab(s) orally once a day Not-Taking MUPIROCIN 2% 1 august applied topically 2 times a day; Duration: 7 days Not-Taking SYMBICORT 160 mcg-4.5 mcg/inh Inhale 2 puffs by mouth twice daily; Duration: 30 Not-Taking BYSTOLIC 10 mg ; Duration: 90 Not-Taking VALTREX 1 g 1 tab(s) orally 2 times a day Not-Taking XOLAIR 150 mg ; Duration: 28 N ot-Taking TRADJENTA 5 mg 1 tab(s) orally once a day Not-Taking NASACORT as directed Not-Taki ng Lantus 100 UNIT/ML 0 subcutaneously Active CYMBALTA 30 mg 1 cap(s) orally 2 times a day Not-Taking DOXYCYCLINE monohydrate 100 mg 1 cap(s) orally 2 times a day Not-Taking Montelukast Sodium 10 MG 1 tab(s) orally once a day; Duration: 30 day(s) Active Fluticasone-Salmeterol 113 MCG-14 MCG/INH 1 INH INHALED 2 TIMES A DAY; Duration: 30 DAY(S) *Please review and pick correct strength-formul ation from [employer] [place] options. If intended option is not shown, discontinue and re-order from Quick Search* Active Ipratropium [place] 0.06 % 1 spray Nasally Four times a day; Duration: 30 days As needed Active AIRDUO RESPICLICK 232 MCG-14 MCG/INH 1 INH INHALED 2 TIMES A DAY; Duration: 30 DAY(S) *Please review for potential replacement for e-prescription and drug interaction check* Active Mounjaro 5 MG/0.5 ML DIRECTED SUBCUTANEOUSLY ONCE A WEEK *Please review and pick correct strength-formul ation from [employer] options. If intended option is not shown, discontinue and re-order from Quick Search* Active Cartia XT 180 MG 1 cap(s) orally once a day; Duration: 30 day(s) Active Fluticasone-Salmeterol 113 MCG-14 MCG/INH 1 INH INHALED 2 TIMES A DAY; Duration: 30 DAY(S) *Please review and pick correct strength-formul ation from [employer] options. If intended option is not shown, discontinue and re-order from Quick Search* Active SPIRIVA 18 mcg 1 cap(s) inhaled once a day Active FLUTICASONE-SALMETEROL 113 mcg-14 mcg/inh 1 INH inhaled 2 times a day; Duration: 30 day(s) Active Singulair 10 MG 1 tab(s) orally once a day Active Trelegy Ellipta 200 MCG-62.5 MCG-25 MCG/INH 1 PUFF(S) INHALED ONCE A DAY; Duration: 90 DAYS *Please review and pick correct strength-formul ation from [employer] [place] options. If intended option is not shown, discontinue and re-order from Quick Search* Active Potassium Chloride ER 10 MEQ 1 tab(s) orally 2 times a day; Duration: 30 day(s) Active Losartan Potassium 50 MG 1 tab(s) orally once a day Active Toujeo Max SoloStar 300 UNIT/ML INJECT 100 UNITS SUBCUTANEOUSLY DAILY PER INSULIN PROTOCOL; Duration: 30 Active AEROCHAMBER MDI SPACER - MOUTHPIECE (ADULT) N/A As directed PO Per asthma action plan Active FASENRA 30 mg/mL 30 mg subcutaneously every 8 weeks Active PROAIR HFA 90 mcg/inh 2 puff(s) inhaled Q4-6 hours, PRN and per the asthma action plan Active EPIPEN 2-MAKENZIE 0.3 mg 0.3 mg intramuscularly once; Duration: 30 day(s) Active MONTELUKAST 10 mg 1 tab(s) orally once a day; Duration: 30 day(s) Active Alpha-Lipoic Acid 600 MG orally once a day Active Triple Antibiotic 3.5-400-5000 1 august applied topically bid; Duration: 7 day(s) Active Metoprolol Succinate ER 25 MG 1 tab(s) orally once a day Active AMLODIPINE 5 mg 1 tab(s) orally once a day Active CETIRIZINE HYDROCHLORIDE 10 mg 1 tab(s) orally once a day Active LOSARTAN 50 mg 1 tab(s) orally once a day Active Levothyroxine Sodium 150 MCG 1 tab(s) orally once a day Active Nystatin 824633 UNIT/ML 4 mL orally 4 ti mes a day Active HYDROCHLOROTHIAZIDE 25 mg 1 tab(s) orally once a day Active BYSTOLIC 10 mg 1 tab(s) orally once a day Active FLUoxetine HCl 20 MG 1 cap(s) orally once a day Active DULoxetine HCl 60 MG 1 cap(s) orally once a day Active Cymbalta 30 MG 1 cap(s) orally 2 times a day Active Cetirizine HCl 10 MG 1 tab(s) orally once a day Active Fasenra 30 MG/ML 30 MG SUBCUTANEOUSLY EVERY 8 WEEKS *Please review and pick correct strength-formul ation from [employer] [place] options. If intended option is not shown, discontinue and re-order from Quick Search* Active Spiriva HandiHaler 18 MCG 1 cap(s) inhaled once a day Active Losartan Potassium 50 MG 1 tab(s) orally once a day Active amLODIPine Besylate 5 MG 1 tab(s) orally once a day Active VENTOLIN HFA 90 mcg/inh INHALE 2 PUFFS B Y MOUTH EVERY 4 TO 6 HOURS NEEDED AND PER THE ASTHMA ACTION PLAN 17; Duration: 17 Not-Taking FLUTICASONE-SALMETEROL 113 mcg-14 mcg/inh 1 INH inhaled 2 times a day; Duration: 30 day(s) Not-Taking MONTELUKAST 10 mg 1 tab(s) orally once a day; Duration: 30 day(s) Not-Taking Bystolic 10 MG 1 tab(s) orally once a day Active hydroCHLOROthiazide 25 MG 1 tab(s) orally once a day Active XARELTO 10 mg 1 tab(s) orally once a day Not-Taking METHOTREXATE 2.5 mg as directed orally once a week; Duration: 30 Not-Taking TOUJEO MAX SOLOSTAR 300 units/mL INJECT 80 UNITS SUBCUTANEOUSLY ONCE DAILY; Duration: 90 Not-Taking DULOXETINE 60 mg 1 cap(s) orally once a day; Duration: 30 day(s) Not-Taking ROSUVASTATIN 10 mg 1 tab(s) orally once a day; Duration: 30 day(s) Not-Taking MOUNJARO 5 mg/0.5 mL as directed subcutaneously once a week Not-Taking CARTIA XT 180 mg/24 hours 1 cap(s) orally once a day; Duration: 30 day(s) Not-Taking OMEPRAZOLE 20 mg 1 tab(s) orally once a day; Duration: 14 day(s) Not-Taking METOPROLOL 25 mg 1 tab(s) orally once a day; Duration: 30 day(s) Not-Taking LEVOTHYROXINE 125 mcg (0.125 mg) 1 tab(s) orally once a day; Duration: 30 day(s) Not-Taking TRELEGY ELLIPTA 200 mcg-62.5 mcg-25 mcg/inh 1 puff(s) inhaled once a day; Duration: 90 days Not-Taking PREDNISONE 10 mg 1.5 tab(s) orally once a day Not-Taking PIOGLITAZONE 15 mg 1 tab(s) orally once a day Not-Taking FOLIC ACID 1 mg 1 tab(s) orally once a day Not-Taking POTASSIUM CHLORIDE 10 mEq 1 tab(s) orally 2 times a day; Duration: 30 day(s) Not-Taking ROSUVASTATIN 10 mg 1 tab(s) orally once a day; Duration: 30 day(s) 1 Not-Taking TOUJEO MAX SOLOSTAR 300 units/mL INJECT 100 UNITS SUBCUTANEOUSLY ONCE DAILY DIRECTED; Duration: 30 Not-Taking XIIDRA 5% INSTILL 1 DROP INTO EACH EYE TWICE DAILY; Duration: 30 Not-Taking AZELASTINE HYDROCHLORIDE NASAL 137 mcg/inh 2 spray(s) intranasally BID, PRN; Duration: 30 day(s) Not-Taking METHOTREXATE 2.5 mg 7 tab(s) orally once a week 1 Not-Taking VITAMIN D3 2000 intl units as directed orally once a day; Duration: 30 day(s) Not-Taking SPIRIVA RESPIMAT 1.25 mcg/inh 2 puff(s) inhaled once a day Not-Taking OMEPRAZOLE 40 mg 1 cap(s) orally once a day; Duration: 30 day(s) Not-Taking PREDNISONE 5 mg 10 tab(s) orally once a day Not-Taking ANTIOXIDANT FORMULA Antioxidant Multiple Vitamins and Minerals as directed orally; Duration: 30 day(s) Not-Taking SINGULAIR 10 mg 1 tab(s) orally once a day Not-Taking CETIRIZINE 10 mg 1 tab(s) orally once a day Not-Taking ATORVASTATIN 40 mg 1 tab(s) orally once a day Not-Taking ASPIRIN 81 mg 1 tab(s) chewed once a day Not-Taking MULTIVITAMIN 1 po once a day N ot-Taking LEVOTHYROXINE 150 mcg (0.15 mg) 1 tab(s) orally once a day Not-Taking FLUOXETINE 20 mg 1 cap(s) orally once a day Not-Taking DULOXETINE 60 mg 1 cap(s) orally once a day Not-Taking CALTRATE 600 + D 600 mg-800 intl units 1 tab(s) orally 2 times a day Not-Taking OMEPRAZOLE 20 mg 1 cap(s) orally once a day Not-Taking HIBICLENS 4% 1 august applied topically once; Duration: 1 day(s) Not-Taking PREDNISONE 20 mg 2 tab(s) orally once a day; Duration: 5 day(s) 0 Not-Taking HUMALOG KWIKPEN 100 units/mL ; Duration: 18 Not-Taking TOUJEO MAX SOLOSTAR 300 units/mL INJECT 100 UNITS SUBCUTANEOUSLY DAILY PER INSULIN PROTOCOL; Duration: 30 Not-Taking SPIRIVA 18 mcg 1 puff inhaled Qday Not-Taking NYSTATIN 745337 units/mL 5 mL orally, sw jennifer & swallow tid Not-Taking LOSARTAN 50 mg 1 tab(s) orally once a day Not-Taking AMLODIPINE 5 mg 1 tab(s) orally once a day Not-Taking LANTUS 100 units/mL 0 subcutaneously Not-Taking METOPROLOL SUCCINATE ER 25 mg 1 tab(s) orally once a day Not-Taking METOPROLOL SUCCINATE ER 25 mg 1 tab(s) orally once a day Not-Taking ATORVASTATIN 40 mg 1 tab(s) orally once a day Not-Taking HYDROCHLOROTHIAZIDE 25 mg ; Duration: 90 Not-Taking NASACORT ALLERGY 24HR 55 mcg/inh 2 spray(s) intranasally once a day Not-Taking TRIPLE ANTIBIOTIC 400 units-3.5 mg-5000 units/g 1 august applied topically bid; Duration: 7 day(s) Not-Taking CLARITIN 24 HOUR ALLERGY 10 mg 1 tab(s) orally once a day Not-Taking ASPIRIN 81 mg 1 tab(s) orally once a day Not-Taking NYSTATIN 156958 units/mL 4 mL orally 4 t imes a day Not-Taking ALPHA-LIPOIC ACID 600 mg orally once a day Not-Taking XOLAIR 150 mg 300 mg subcutaneously every 4 weeks; Duration: 1 dose(s) Not-Taking LANTUS 100 units/mL 0 subcutaneously Not-Taking HUMALOG 100 units/mL 0 subcutaneously Not-Taking OMEPRAZOLE 20 mg 1 cap(s) orally once a day Not-Taking LEVOTHYROXINE 150 mcg (0.15 mg) 1 tab(s) orally once a day Not-Taking CALTRATE 600 + D 600 mg-800 intl units 1 tab(s) orally 2 times a day Not-Taking BACTRIM DS 800 mg-160 mg 1 tab(s) orally 2 times a day; Duration: 10 day(s) Not-Taking FLUOXETINE 20 mg 1 cap(s) orally once a day Not-Taking TRAMADOL 50 mg 1 tab(s) orally every 4 hours Not-Taking DULOXETINE 60 mg 1 cap(s) orally once a day Not-Taking CYMBALTA 30 mg 1 cap(s) orally 2 times a day Not-Taking Mupirocin 2 % 1 august applied topically 2 times a day; Duration: 7 days Not-Taking Symbicort 160-4.5 MCG/ACT Inhale 2 puffs by mouth twice daily; Duration: 30 Not-Taking MULTIVITAMIN 1 po once a day N ot-Taking predniSONE 5 mg 10 tab(s) orally once a day Not-Taking predniSONE 10 mg 1.5 tab(s) orally once a day Not-Taking Nasacort Allergy 24HR DIRECTED *Please re view and pick correct strength-formul ation from [employer] [place] options. If intended option is not shown, discontinue and re-order from Quick Search* Not-Taking Bystolic 10 MG ; Duration: 90 Not-Taking Valtrex 1 GM 1 tab(s) orally 2 times a day Not-Taking Xolair 150 MG ; Duration: 28 N ot-Taking Tradjenta 5 MG 1 tab(s) orally once a day Not-Taking HUMALOG KWIKPEN (CONCENTRATED) 200 UNITS/ML ; Duration: 28 *Please review for potential replacement for e-prescription and drug interaction check* Not-Taking SIT (TRADITIONAL) VARIABLE PER SCHEDULE SC PER SCHEDULE; Duration: TO BE DETERMINED *Please review for potential replacement for e-prescription and drug interaction check* Not-Taking Ventolin HFA 108 (90 Base) MCG/ACT INHALE 2 PUFFS BY MOUTH EVERY 4 TO 6 HOURS NEEDED AND PER THE ASTHMA ACTION PLAN 17; Duration: 17 Not-Taking Cymbalta 30 MG 1 cap(s) orally 2 times a day Not-Taking Doxycycline Monohydrate 100 MG 1 cap(s) orally 2 times a day Not-Taking Methotrexate 2.5 MG DIRECTED ORALLY ONCE A WEEK; Duration: 30 *Please review and pick correct strength-formul ation from [employer] [place] options. If intended option is not shown, discontinue and re-order from Quick Search* Not-Taking Toujeo Max SoloStar 300 UNIT/ML INJECT 80 UNITS SUBCUTANEOUSLY ONCE DAILY; Duration: 90 Not-Taking DULoxetine HCl 60 MG 1 cap(s) orally once a day; Duration: 30 day(s) Not-Taking Rosuvastatin Calcium 10 MG 1 tab(s) orally once a day; Duration: 30 day(s) Not-Taking Xarelto 10 MG 1 tab(s) orally once a day Not-Taking Toujeo Max SoloStar 300 UNIT/ML INJECT 100 UNITS SUBCUTANEOUSLY ONCE DAILY DIRECTED; Duration: 30 Not-Taking Xiidra 5 % INSTILL 1 DROP INTO EACH EYE TWICE DAILY; Duration: 30 Not-Taking Omeprazole Magnesium 20 MG 1 tab(s) orally once a day; Duration: 14 day(s) Not-Taking Metoprolol Succinate ER 25 MG 1 tab(s) orally once a day; Duration: 30 day(s) Not-Taking Levothyroxine Sodium 125 MCG 1 tab(s) orally once a day; Duration: 30 day(s) Not-Taking HUMALOG KWIKPEN (CONCENTRATED) 200 UNITS/ML INJECT UP TO 56 UNITS SUBCUTANEOUSLY THREE TIMES DAILY WITH MEALS; Duration: 14 *Please review for potential replacement for e-prescription and drug interaction check* Not-Taking Methotrexate 2.5 MG 7 TAB(S) ORALLY ONCE A WEEK *Please review and pick correct strength-formul ation from [employer] [place] options. If intended option is not shown, discontinue and re-order from Quick Search* 1 Not-Taking Rosuvastatin Calcium 10 MG 1 tab(s) orally once a day; Duration: 30 day(s) 1 Not-Taking Antioxidant Formula - as directed orally ; Duration: 30 day(s) Not-Taking Azelastine HCl 137 MCG/SPRAY 2 spray(s) intranasally BID, PRN; Duration: 30 day(s) Not-Taking Cetirizine HCl 10 MG 1 tab(s) orally once a day Not-Taking Atorvastatin Calcium 40 MG 1 tab(s) orally once a day Not-Taking Vitamin D3 50 MCG (2000 UT) as directed orally once a day; Duration: 30 day(s) Not-Taking Spiriva Respimat 1.25 MCG/ACT 2 puff(s) inhaled once a day Not-Taking Omeprazole 40 MG 1 cap(s) orally once a day; Duration: 30 day(s) Not-Taking FLUoxetine HCl 20 MG 1 cap(s) orally once a day Not-Taking DULoxetine HCl 60 MG 1 cap(s) orally once a day Not-Taking Caltrate 600+D Plus Minerals 600-800 MG-UNIT 1 tab(s) orally 2 times a day Not-Taking Omeprazole 20 MG 1 cap(s) orally once a day Not-Taking Aspirin 81 MG 1 tab(s) chewed once a day Not-Taking PROAIR HFA 90 MCG/INH 2 PUFFS INHALED Q4-6 HOURS, PRN AND PER THE ASTHMA ACTION PLAN *Please review for potential replacement for e-prescription and drug interaction check* Not-Taking Levothyroxine Sodium 150 MCG 1 tab(s) orally once a day Not-Taking Spiriva HandiHaler 18 MCG 1 puff inhaled Qday Not-Taki ng predniSONE 20 MG 2 tab(s) orally once a day; Duration: 5 day(s) 0 Not-Taking HumaLOG KwikPen 100 UNIT/ML ; Duration: 18 Not-Taking Xolair 150 MG 300 mg subcutaneously every 4 weeks; Duration: 1 dose(s) Not-Taking Nasacort Allergy 24HR 55 MCG/ACT 2 spray(s) intranasally once a day Not-Taking hydroCHLOROthiazide 25 MG ; Duration: 90 Not-Taking amLODIPine Besylate 5 MG 1 tab(s) orally once a day Not-Taking Metoprolol Succinate ER 25 MG 1 tab(s) orally once a day Not-Taking ONE DAILY MULTI-ESSENTIAL MULTIPLE VITAMINS 1 TAB(S) ORALLY ONCE A DAY *Please review for potential replacement for e-prescription and drug interaction check* Not-Taking EPINEPHRINE TWO-PACK 0.3 MG 0.3 MG INTRAMUSCULARLY ONCE; Duration: 1 DOSE(S) *Please review for potential replacement for e-prescription and drug interaction check* Not-Taking traMADol HCl 50 MG 1 tab(s) orally every 4 hours Not-Taking Caltrate 600+D Plus Minerals 600-800 MG-UNIT 1 tab(s) orally 2 times a day Not-Taking Claritin 10 MG 1 tab(s) orally once a day Not-Taking EpiPen 2-Makenzie 0.3 MG/0.3ML 0.3 mg intramuscularly once; Duration: 30 day(s) Not-Taking Bactrim DS 800-160 MG 1 tab(s) orally 2 times a day; Duration: 10 day(s) Not-Taking Social History Sex Assigned At : Social History Observation Description Sex Assigned At Female Problems Problem Type SNOMED Code ICD Code Onset Dates Problem Status W/U Status Risk Notes Problem Eosinophilic asthma (422459584) 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) Active confirmed Encounters Encounter Location Date Provider Diagnosis [facility] [address] [facility] [address] [place] [address] 01/06/2024 Hailey Sotelo Severe persistent asthma, uncomplicated J45.50 ; Eosinophilic asthma J82.83 ; Chronic obstructive pulmonary disease, unspecified J44.9 ; Hypoxemia R09.02 ; Allergic rhinitis due to pollen J30.1 ; Other allergic rhinitis J30.89 ; Other chronic allergic conjunctivitis H10.45 and Essential (primary) hypertension I10 Assessments Encounter Date Diagnosis (ICD Code) Assessment Notes Treatment Notes Treatment Clinical Notes Section Notes 01/06/2024 Severe persistent asthma, uncomplicated (ICD-10 - J45.50) Kelli has a history of asthma/COPD overlap with subjective inhalant triggers and previous labwork/skin testing suggestive of atopic disease. - Kelli continues to feel well. Her weight loss has being going well. Feels she can breathe better. Pulmonary gave the OK to hold supplemental oxygen during the day, she reports that are still having her wear 3 L at night. - Spirometry today with mild obstruction. Disucssed a changed to Trelegy but she clinically feesl stable on her current regimen. Consider revisiting depending on the Fall -Recommend annual flu shot - Continued Fasenra today - we have discussed possible switch to different anti IL-5 given but will reserve this option for future since symptoms are stable - states she feels great on Fasenra currently. That said she previously reported wheezing in the past at 6 weeks after Fasenra administration. If issues still persist then consider switch to Tezspire. Today reports she can tell when her dose is due but denies wheezing between doses. - Follow-up in 8 weeks for Fasenra. - Lungs clear on exam. 01/06/2024 Eosinophilic asthma (ICD-10 - J82.83) The patient has a diagnosis of asthma with an eosinophilic phenotype. Since starting FASENRA the patient has had decreased healthcare utilization, improvement in asthma symptoms and decreased utilization of rescue (DILMA) medications. The patient has also been compliant on FASENRA therapy 01/06/2024 Chronic obstructive pulmonary disease, unspecified (ICD-10 - J44.9) Continue per pulmonary, Dr. Rivas 01/06/2024 Hypoxemia (ICD-10 - R09.02) Off day-time oxygen per pulmonary, today reports she wears 3 L at night per their instructions. 01/06/2024 Allergic rhinitis due to pollen (ICD-10 - J30.1) Kelli's skin testing at a previous visit was positive only to dust mite, outside lab work positive to dust mites as well as tree/weed pollens, [place] grass and cockroach. Previously on SCIT; had been on MM from 12/2017 to 05/2021, dosing has been held since. Will continue to hold shots given her multiple health concerns; especially as her allergy symptoms are stable. Reports taking Xyzal daily with benefit. - Will continue to monitor symptoms off 01/06/2024 Other allergic rhinitis (ICD-10 - J30.89) Follow allergen avoidance, meds 01/06/2024 Other chronic allergic conjunctivitis (ICD-10 - H10.45) Given ocular signs and symptoms I encouraged allergy avoidance measures and meds as above. If symptoms persist, consider adding additional medications including intraocular antihistamine/mast cell stabilizer, PRN 01/06/2024 Essential (primary) hypertension (ICD-10 - I10) BP normal today without symptoms of urgency or emergency. Continue serial checks and follow-up with PCP 01/06/2024 Other Plan Of Treatment Medication Medication Name Sig Start Date Stop Date Notes Ipratropium [place] 0.06 % 1 spray Nasal ly Four times a day; Duration: 30 days SPIRIVA 18 mcg 1 cap(s) inhaled once a day FLUTICASONE-SALMETEROL 113 mcg-14 mcg/inh 1 INH inhaled 2 times a day; Duration: 30 day(s) AEROCHAMBER MDI SPACER - MOUTHPIECE (ADULT) N/A As directed PO Per asthma action plan FASENRA 30 mg/mL 30 mg subcutaneously every 8 weeks PROAIR HFA 90 mcg/inh 2 puff(s) inhaled Q4-6 hours, PRN and per the asthma action plan EPIPEN 2-MAKENZIE 0.3 mg 0.3 mg intramuscular ly once; Duration: 30 day(s) MONTELUKAST 10 mg 1 tab(s) orally once a day; Duration: 30 day(s) AMLODIPINE 5 mg 1 tab(s) orally once a day CETIRIZINE HYDROCHLORIDE 10 mg 1 tab(s) orally once a day LOSARTAN 50 mg 1 tab(s) orally once a day HYDROCHLOROTHIAZIDE 25 mg 1 tab(s) orally once a day BYSTOLIC 10 mg 1 tab(s) orally once a day Treatment Notes Assessment Notes Severe persistent asthma, uncomplicated Kelli has a history of asthma/COPD overlap with subjective inhalant triggers and previous labwork/skin testing suggestive of atopic disease. - Kelli continues to feel well. Her weight loss has being going well. Feels she can breathe better. Pulmonary gave the OK to hold supplemental oxygen during the day, she reports that are still having her wear 3 L at night. - Spirometry today with mild obstruction. Disucssed a changed to Trelegy but she clinically feesl stable on her current regimen. Consider revisiting depending on the Fall -Recommend annual flu shot - Continued Fasenra today - we have discussed possible switch to different anti IL-5 given but will reserve this option for future since symptoms are stable - states she feels great on Fasenra currently. That said she previously reported wheezing in the past at 6 weeks after Fasenra administration. If issues still persist then consider switch to Tezspire. Today reports she can tell when her dose is due but denies wheezing between doses. - Follow-up in 8 weeks for Fasenra. - Lungs clear on exam. Eosinophilic asthma The patient has a di agnosis of asthma with an eosinophilic phenotype. Since starting FASENRA the patient has had decreased healthcare utilization, improvement in asthma symptoms and decreased utilization of rescue (DILMA) medications. The patient has also been compliant on FASENRA therapy Chronic obstructive pulmonar y disease, unspecified Continue per pulmonary, Dr. Rivas Hypoxemia Off day-time oxygen per pulmonary, today reports she wears 3 L at night per their instructions. Allergic rhinitis due to pollen Kelli's skin testing at a previous visit was positive only to dust mite, outside lab work positive to dust mites as well as tree/weed pollens, [place] grass and cockroach. Previously on SCIT; had been on MM from 12/2017 to 05/2021, dosing has been held since. Will continue to hold shots given her multiple health concerns; especially as her allergy symptoms are stable. Reports taking Xyzal daily with benefit. - Will continue to monitor symptoms off Other allergic rhinitis Follow allergen avoidance, meds Other chronic allergic conjunctivitis Gi treva ocular signs and symptoms I encouraged allergy avoidance measures and meds as above. If symptoms persist, consider adding additional medications including intraocular antihistamine/mast cell stabilizer, PRN Essential (primary) hypertension BP norm al today without symptoms of urgency or emergency. Continue serial checks and follow-up with PCP Next Appt Details Follow Up: 8 Weeks, Reason: Evaluation and Management,FASENRA Administration Provider Name:Hailey Sotelo , 01/18/2025 03:30:00 PM, [address] [facility], [place], [address], Progress Notes * Kelli GOLDSTEINtiffaniDOB:1945 (79 yo F)Acc No.[id number]:01/06/2024 FASENRA 2 Patient: Rula STRONG Provider: Krysta Sotelo PA-C :1945 A ge:78 Y S ex:Female Date:01/06/2024 Address:[address] [place], [place] [id number] Pcp:David Pruitt MD Subjective: * Chief Complaints: * 1 . ACOS Continues on Spiriva 1.25 RM and AirDuo, switched from Symbicort due to insurance. On q 8 week Fasenra injections. Passed WT, no longer has use 02 during the day, wears 3L at night per Pulmonology. 2. ARC, holding SCIT. MM 12/2017. 3. Has rheumatoid and osetoarthritis, on MTX and prednisone. Followed by butter wrapper. 4. On Nutrisystem and weight loss injection - doing well with weight loss.. * HPI: * Introduction: HPI: Glenn Goldstein, a 78-year-old female with complex past medical history significant for asthma/COPD overlap syndrome, A-Fib, IDDM, RA and hypertension who returns today for interval evaluation and management with scheduled Fasenra administration. Kelli is alone f or today's visit. She continues doing well without oxygen use during the day, does report she wears 3 L O2 at night per pulmonology, reports she has been feeling well. She continues ICS/LABA, LAMA, LTRA and Fasenra, denies using her rescue inhaler since last letty seen. She was previously placed on Trelegy but thought it made symptoms worse for her. Previously on Symbicort, now on AirDuo. Her stripper preliminary, Dr. Rivas, had a chest CT, 6 MWT and PFTs per patient. She has been on Fasenra since 09/2018. Of note, Kelli was previously on Xolair but stopped due to high OOP. She is tolerating Fasenra injections well without adverse event, does report one episode of dyspnea last month when she was in the shower.Took albuterol and grabbed her home oxygen and a few mins later felt better. Doesn't know what triggered this. . Kelli was previously on SCIT, MM 12/2017 to 05/2021, has been holding SCIT since. She has been taking Xyzal daily with benefit. Also followed by butter wrapper for her RA. Today, she reports no fevers, chills, night sweats or other constitutional symptoms.? The patient is here for scheduled immunotherapy with FASENRA. Please see the attached specialty form regarding the specifics of the administration of this medication. As per our protocol, they must undergo a screening health questionnaire (medication changes, reaction(s) to last immunotherapy dose(s), current health status, ACT (if appropriate), self-injectable epinephrine on patient(?) and peak flow (if appropriate)). Also, the patient must wait in our office under direct observation of physician and staff for 2 hours after the first 3 doses, then 30 minutes after receiving this medication thereafter. Furthermore, every patient must have an epinephrine pen (self-injectable) with them at all times given the risk of anaphylaxis with FASENRA. * Biologic administration: Indication for in-chief human resources officer F ASENRA: Discussed with patient at length options for administration of FASENRA for self-administration or in-chief human resources officer. Patient does not feel that they can safely self-inject due to incompetence and declined training. Patient prefers to receive FASENRA in the office for post-injection monitoring. We will revisit administration options with the patient at a later date after therapy has been initiated.? * ROS: A LLERGY: Positive p er the HPI and history, otherwise unremarkable.?runny nose Y es. s cratchy throat Y es. i tchy eyes Y es. e ar fullness?No. s inus congestion Y es. S PECIAL SENSES: Positve for n one. c ataracts N o. g laucoma?No. l oss of hearing N o. i tching in ears Y es. r inging in ears N o.?loss of balance Y es. l oss of smell N o. d ry eyes Y es. e xcessive tearing N o. l oss of taste N o. c onjunctivitis N o. e ar infections N o.? C ONSTITUTIONAL: weight gain Y es. l oss of appetite N o. f ever?No. w eakness Y es. w eight loss N o. f atigue Y es. n ight sweats?No. P ositive for n one. E NT: cold N o. c ough Y es. e pistaxis N o. h earing loss N o. c hange in voice Y es. s ore throat N o. r inging in ears?No. s inus pain N o. P ositive p er the HPI and history, otherwise unremarkable. R ESPIRATORY: shortness of breath Y es. c hest pain N o. c hest congestion N o. c ough Y es. P ositive p er the HPI and history, otherwise unremakable. O PHTHALMOLOGY: diminished vision N o. e ye irritation N o. d rainage from eyes N o. b lurring of vision N o. s easonal eye sx N o. P ositive for p er the HPI and history, otherwise unremarkable. i tching Y es. s ensitivity to light Y es. d ischarge N o. w atering Y es. s welling of the eyelids?No. r edness N o. E NDOCRINOLOGY: fatigue Y es. p olydipsia Y es. p olyuria Y es. w eight loss N o. s leep disturbance Y es. c old intolerance Y es. h eat intolerance Y es. d iabetes Y es. P ositive for n one. C ARDIOLOGY: chest pain N o. p alpitations N o. l eg edema?No. d izziness N o. s hortness of breath Y es. P ositive for n one. G ASTROENTEROLOGY: dysphagia N o. a bdominal pain N o. n ausea?No. v omiting N o. c onstipation N o. d iarrhea N o. b lood in stool?No. i ndigestion Y es. h emorrhoids N o. P ositive for n one. U ROLOGY: difficulty urinating N o. b lood in urine N o. f requent urination Y es. u rinary incontinence Y es. r ecurrent UTI N o. P ositive for n one. D ERMATOLOGY: rash N o. m ole N o. l umps N o. d ry or sensitive skin Y es. h bárbara (urticaria) N o. a cne N o. s kin cancer N o. P ositive for p er the HPI and history, otherwise unremakable. N EUROLOGY: headache N o. t ingling numbness Y es. s eizures N o. i nsomnia Y es. m fatou loss N o. d izziness N o. g ait abnormality N o. P ositive for n one. H EMATOLOGY/LYMPH: Positive for n one. M USCULOSKELETAL: joint swelling Y es. j oint pain Y es. l eg cramps Y es. j oint stiffness Y es. s ciatica Y es. o steoporosis N o. f racture N o. c arpal tunnel Y es. g out N o. P ositive for n one. P SYCHOLOGY: high stress level Y es. d epression Y es. s leep disturbances Y es. s uicidal ideation N o. e ating disorder N o. m ental or physical abuse N o. a nxiety Y es. P ositive for n one. F EMALE REPRODUCTIVE: heavy periods N o. h ot flashes N o. a bnormal vaginal discharge N o. s exually active N o. i nfertility N o. f requent yeat infections N o. p elvic pain N o. b reast pain N o. n ipple discharge N o. P ositive for N /A. A re you ? N o. A re you planning on a future pregancy? N o. A ll other review of systems per the HPI and history, otherwise unremarkable. * Medical History: * Medications: T aking Bystolic 10 MG Tablet 1 tab(s) orally once a day , Taking hydroCHLOROthiazide 25 MG Tablet 1 tab(s) orally once a day , Taking Losartan Potassium 50 MG Tablet 1 tab(s) orally once a day , Taking amLODIPine Besylate 5 MG Tablet 1 tab(s) orally once a day , Taking Cetirizine HCl 10 MG Tablet 1 tab(s) orally once a day , Taking Fasenra 30 MG/ML SOLUTION 30 MG SUBCUTANEOUSLY EVERY 8 WEEKS , Notes to Pharmacist: *Please review and pick correct strength-formulation from [employer] options. If intended option is not shown, discontinue and re-order from Quick Search*, Taking Spiriva HandiHaler 18 MCG Capsule 1 cap(s) inhaled once a day , Taking FLUoxetine HCl 20 MG Capsule 1 cap(s) orally once a day , Taking DULoxetine HCl 60 MG Capsule Delayed Release Particles 1 cap(s) orally once a day , Taking Cymbalta 30 MG Capsule Delayed Release Particles 1 cap(s) orally 2 times a day , Taking Levothyroxine Sodium 150 MCG Tablet 1 tab(s) orally once a day , Taking Nystatin 259474 UNIT/ML Suspension 4 mL orally 4 times a day , Taking Alpha-Lipoic Acid 600 MG Capsule orally once a day , Taking Triple Antibiotic 3.5-400-5000 Ointment 1 august applied topically bid , Taking Metoprolol Succinate ER 25 MG Tablet Extended Release 24 Hour 1 tab(s) orally once a day , Taking Losartan Potassium 50 MG Tablet 1 tab(s) orally once a day , Taking Toujeo Max SoloStar 300 UNIT/ML Solution Pen-injector INJECT 100 UNITS SUBCUTANEOUSLY DAILY PER INSULIN PROTOCOL , Taking Singulair 10 MG Tablet 1 tab(s) orally once a day , Taking Trelegy Ellipta 200 MCG-62.5 MCG-25 MCG/INH POWDER 1 PUFF(S) INHALED ONCE A DAY , Notes to Pharmacist: *Please review and pick correct strength-formulation from [employer] [place] options. If intended option is not shown, discontinue and re-order from Quick Search*, Taking Potassium Chloride ER 10 MEQ Tablet Extended Release 1 tab(s) orally 2 times a day , Taking AIRDUO RESPICLICK 232 MCG-14 MCG/INH POWDER 1 INH INHALED 2 TIMES A DAY , Notes to Pharmacist: *Please review for potential replacement for e-prescription and drug interaction check*, Taking Mounjaro 5 MG/0.5 ML SOLUTION DIRECTED SUBCUTANEOUSLY ONCE A WEEK , Notes to Pharmacist: *Please review and pick correct strength-formulation from [employer] [place] options. If intended option is not shown, discontinue and re-order from Quick Search*, Taking Cartia XT 180 MG Capsule Extended Release 24 Hour 1 cap(s) orally once a day , Taking Fluticasone-Salmeterol 113 MCG-14 MCG/INH POWDER 1 INH INHALED 2 TIMES A DAY , Notes to Pharmacist: *Please review and pick correct strength-formulation from [employer] [place] options. If intended option is not shown, discontinue and re-order from Quick Search*, Taking Montelukast Sodium 10 MG Tablet 1 tab(s) orally once a day , Taking Fluticasone-Salmeterol 113 MCG-14 MCG/INH POWDER 1 INH INHALED 2 TIMES A DAY , Notes to Pharmacist: *Please review and pick correct strength-formulation from [employer] [place] options. If intended option is not shown, discontinue and re-order from Quick Search*, Taking Lantus 100 UNIT/ML Solution 0 subcutaneously , Taking Ipratropium [place] 0.06 % Solution 1 spray Nasally Four times a day As needed, Not-Taking/PRN MULTIVITAMIN tablet 1 po once a day , Not-Taking/PRN predniSONE 5 mg tablet 10 tab(s) orally once a day , Not- Taking/PRN predniSONE 10 mg tablet 1.5 tab(s) orally once a day , Not-Taking/PRN BACTRIM DS 800 mg-160 mg tablet 1 tab(s) orally 2 times a day , Not-Taking/PRN FLUOXETINE 20 mg capsule 1 cap(s) orally once a day , Not-Taking/PRN TRAMADOL 50 mg tablet 1 tab(s) orally every 4 hours , Not-Taking/PRN DULOXETINE 60 mg delayed release capsule 1 cap(s) orally once a day , Not-Taking/PRN CYMBALTA 30 mg delayed release capsule 1 cap(s) orally 2 times a day , Not-Taking/PRN LEVOTHYROXINE 150 mcg (0.15 mg) tablet 1 tab(s) orally once a day , Not-Taking/PRN CALTRATE 600 + D 600 mg-800 intl units tablet 1 tab(s) orally 2 times a day , Not-Taking/PRN LANTUS 100 units/mL solution 0 subcutaneously , Not-Taking/PRN HUMALOG 100 units/mL solution 0 subcutaneously , Not-Taking/PRN OMEPRAZOLE 20 mg delayed release capsule 1 cap(s) orally once a day , Not-Taking/PRN CLARITIN 24 HOUR ALLERGY 10 mg tablet 1 tab(s) orally once a day , Not-Taking/PRN ASPIRIN 81 mg delayed release tablet 1 tab(s) orally once a day , Not-Taking/PRN NYSTATIN 127723 units/mL suspension 4 mL orally 4 times a day , Not-Taking/PRN ALPHA-LIPOIC ACID 600 mg capsule orally once a day , Not- Taking/PRN XOLAIR 150 mg powder for injection 300 mg subcutaneously every 4 weeks , Not-Taking/PRN NASACORT ALLERGY 24HR 55 mcg/inh spray 2 spray(s) intranasally once a day , Not-Taking/PRN TRIPLE ANTIBIOTIC 400 units-3.5 mg-5000 units/g ointment 1 august applied topically bid , Not-Taking/PRN METOPROLOL SUCCINATE ER 25 mg tablet, extended release 1 tab(s) orally once a day , Not-Taking/PRN ATORVASTATIN 40 mg tablet 1 tab(s) orally once a day , Not-Taking/PRN HYDROCHLOROTHIAZIDE 25 mg tablet , Not-Taking/PRN NYSTATIN 419591 units/mL suspension 5 mL orally, swish & swallow tid , Not-Taking/PRN LOSARTAN 50 mg tablet 1 tab(s) orally once a day , Not-Taking/PRN AMLODIPINE 5 mg tablet 1 tab(s) orally once a day , Not-Taking/PRN LANTUS 100 units/mL solution 0 subcutaneously , Not-Taking/PRN METOPROLOL SUCCINATE ER 25 mg tablet, extended release 1 tab(s) orally once a day , Not-Taking/PRN TOUJEO MAX SOLOSTAR 300 units/mL solution INJECT 100 UNITS SUBCUTANEOUSLY DAILY PER INSULIN PROTOCOL , Not-Taking/PRN SPIRIVA 18 mcg capsule 1 puff inhaled Qday , Not- Taking/PRN HIBICLENS 4% soap 1 august applied topically once , Not-Taking/PRN PREDNISONE 20 mg tablet 2 tab(s) orally once a day , Not-Taking/PRN HUMALOG KWIKPEN 100 units/mL solution , Not-Taking/PRN LEVOTHYROXINE 150 mcg (0.15 mg) tablet 1 tab(s) orally once a day , Not-Taking/PRN FLUOXETINE 20 mg capsule 1 cap(s) orally once a day , Not-Taking/PRN DULOXETINE 60 mg delayed release capsule 1 cap(s) orally once a day , Not-Taking/PRN CALTRATE 600 + D 600 mg-800 intl units tablet 1 tab(s) orally 2 times a day , Not-Taking/PRN OMEPRAZOLE 20 mg delayed release capsule 1 cap(s) orally once a day , Not-Taking/PRN ASPIRIN 81 mg tablet, chewable 1 tab(s) chewed once a day , Not-Taking/PRN MULTIVITAMIN tablet 1 po once a day , Not-Taking/PRN SINGULAIR 10 mg tablet 1 tab(s) orally once a day , Not-Taking/PRN CETIRIZINE 10 mg tablet 1 tab(s) orally once a day , Not-Taking/PRN ATORVASTATIN 40 mg tablet 1 tab(s) orally once a day , Not-Taking/PRN VITAMIN D3 2000 intl units tablet as directed orally once a day , Not-Taking/PRN SPIRIVA RESPIMAT 1.25 mcg/inh aerosol 2 puff(s) inhaled once a day , Not-Taking/PRN OMEPRAZOLE 40 mg delayed release capsule 1 cap(s) orally once a day , Not-Taking/PRN PREDNISONE 5 mg tablet 10 tab(s) orally once a day , Not- Taking/PRN ANTIOXIDANT FORMULA Antioxidant Multiple Vitamins and Minerals tablet as directed orally , Not-Taking/PRN AZELASTINE HYDROCHLORIDE NASAL 137 mcg/inh spray 2 spray(s) intranasally BID, PRN , Not-Taking/PRN METHOTREXATE 2.5 mg tablet 7 tab(s) orally once a week , Not-Taking/PRN ROSUVASTATIN 10 mg tablet 1 tab(s) orally once a day , Not-Taking/PRN TOUJEO MAX SOLOSTAR 300 units/mL solution INJECT 100 UNITS SUBCUTANEOUSLY ONCE DAILY DIRECTED , Not-Taking/PRN XIIDRA 5% solution INSTILL 1 DROP INTO EACH EYE TWICE DAILY , Not-Taking/PRN TRELEGY ELLIPTA 200 mcg-62.5 mcg-25 mcg/inh powder 1 puff(s) inhaled once a day , Not-Taking/PRN PREDNISONE 10 mg tablet 1.5 tab(s) orally once a day , Not-Taking/PRN PIOGLITAZONE 15 mg tablet 1 tab(s) orally once a day , Not-Taking/PRN FOLIC ACID 1 mg tablet 1 tab(s) orally once a day , Not-Taking/PRN POTASSIUM CHLORIDE 10 mEq tablet, extended release 1 tab(s) orally 2 times a day , Not-Taking/PRN MOUNJARO 5 mg/0.5 mL solution as directed subcutaneously once a week , Not-Taking/PRN CARTIA XT 180 mg/24 hours capsule, extended release 1 cap(s) orally once a day , Not-Taking/PRN OMEPRAZOLE 20 mg delayed release tablet 1 tab(s) orally once a day , Not-Taking/PRN METOPROLOL 25 mg tablet, extended release 1 tab(s) orally once a day , Not-Taking/PRN LEVOTHYROXINE 125 mcg (0.125 mg) tablet 1 tab(s) orally once a day , Not-Taking/PRN DULOXETINE 60 mg delayed release capsule 1 cap(s) orally once a day , Not-Taking/PRN ROSUVASTATIN 10 mg tablet 1 tab(s) orally once a day , Not-Taking/PRN XARELTO 10 mg tablet 1 tab(s) orally once a day , Not-Taking/PRN METHOTREXATE 2.5 mg tablet as directed orally once a week , Not-Taking/PRN TOUJEO MAX SOLOSTAR 300 units/mL solution INJECT 80 UNITS SUBCUTANEOUSLY ONCE DAILY , Not-Taking/PRN VENTOLIN HFA 90 mcg/inh aerosol INHALE 2 PUFFS BY MOUTH EVERY 4 TO 6 HOURS NEEDED AND PER THE ASTHMA ACTION PLAN 17 , Not-Taking/PRN FLUTICASONE-SALMETEROL 113 mcg-14 mcg/inh powder 1 INH inhaled 2 times a day , Not-Taking/PRN MONTELUKAST 10 mg tablet 1 tab(s) orally once a day , Not-Taking/PRN BYSTOLIC 10 mg tablet 1 tab(s) orally once a day , Not-Taking/PRN HYDROCHLOROTHIAZIDE 25 mg tablet 1 tab(s) orally once a day , Not-Taking/PRN LOSARTAN 50 mg tablet 1 tab(s) orally once a day , Not-Taking/PRN AMLODIPINE 5 mg tablet 1 tab(s) orally once a day , Not-Taking/PRN CETIRIZINE HYDROCHLORIDE 10 mg tablet 1 tab(s) orally once a day , Not-Taking/PRN EPIPEN 2-MAKENZIE 0.3 mg kit 0.3 mg intramuscularly once , Not-Taking/PRN MONTELUKAST 10 mg tablet 1 tab(s) orally once a day , Not-Taking/PRN PROAIR HFA 90 mcg/inh aerosol 2 puff(s) inhaled Q4-6 hours, PRN and per the asthma action plan , Not-Taking/PRN AEROCHAMBER MDI SPACER - MOUTHPIECE (ADULT) N/A Spacer for MDI use As directed PO Per asthma action plan , Not- Taking/PRN FASENRA 30 mg/mL solution 30 mg subcutaneously every 8 weeks , Not-Taking/PRN SPIRIVA 18 mcg capsule 1 cap(s) inhaled once a day , Not-Taking/PRN FLUTICASONE- SALMETEROL 113 mcg-14 mcg/inh powder 1 INH inhaled 2 times a day , Not-Taking/PRN CYMBALTA 30 mg delayed release capsule 1 cap(s) orally 2 times a day , Not-Taking/PRN DOXYCYCLINE monohydrate 100 mg capsule 1 cap(s) orally 2 times a day , Not-Taking/PRN BYSTOLIC 10 mg tablet , Not-Taking/PRN VALTREX 1 g tablet 1 tab(s) orally 2 times a day , Not-Taking/PRN XOLAIR 150 mg powder for injection , Not-Taking/PRN TRADJENTA 5 mg tablet 1 tab(s) orally once a day , Not-Taking/PRN NASACORT as directed , Not-Taking/PRN MUPIROCIN 2% ointment 1 august applied topically 2 times a day , Not-Taking/PRN SYMBICORT 160 mcg-4.5 mcg/inh aerosol Inhale 2 puffs by mouth twice daily , Not-Taking/PRN HumaLOG 100 UNIT/ML Solution 0 subcutaneously , Not- Taking/PRN Omeprazole 20 MG Capsule Delayed Release 1 cap(s) orally once a day , Not- Taking/PRN Aspirin 81 MG Tablet Delayed Release 1 tab(s) orally once a day , Not-Taking/PRN [id number] - CREAM 1 AUGUST APPLIED TOPICALLY 2 TIMES A DAY , Notes to Pharmacist: *Please review for potential replacement for e-prescription and drug interaction check*, Not-Taking/PRN VANICREAM MOISTURIZING CREAM N/A MOISTURIZING CREAM NECESSARY APPLY TO EXTERNAL SURFACES OFTEN NEEDED TO FACE, HANDS, FEET OR BODY FOR DAILY USE BY THE ENTIRE FAMILY , Notes to Pharmacist: *Please review for potential replacement for e-prescription and drug interaction check*, Not- Taking/PRN Atorvastatin Calcium 40 MG Tablet 1 tab(s) orally once a day , Not-Taking/PRN Nystatin [id number] UNIT/ML Suspension 5 mL orally, swish & swallow tid , Not- Taking/PRN Hibiclens 4% SOAP 1 AUGUST APPLIED TOPICALLY ONCE , Notes to Pharmacist: *Please review and pick correct strength-formulation from [employer] options. If intended option is not shown, discontinue and re-order from Quick Search*, Not-Taking/PRN Pioglitazone HCl 15 MG Tablet 1 tab(s) orally once a day , Not-Taking/PRN Folic Acid 1 MG Tablet 1 tab(s) orally once a day , Not-Taking/PRN Fluticasone-Salmeterol 113-14 MCG/ACT Aerosol Powder Breath Activated INHALE 1 PUFF TWICE DAILY , Not-Taking/PRN Lantus 100 UNIT/ML Solution 0 subcutaneously , Not-Taking/PRN Multivitamin - Tablet 1 po once a day , Not-Taking/PRN predniSONE 5 MG Tablet 10 tab(s) orally once a day , Not-Taking/PRN predniSONE 10 MG Tablet 1.5 tab(s) orally once a day , Not- Taking/PRN EpiPen 2-Makenzie 0.3 MG/0.3ML Solution Auto-injector 0.3 mg intramuscularly once , Not-Taking/PRN Bactrim DS 800-160 MG Tablet 1 tab(s) orally 2 times a day , Not-Taking/PRN traMADol HCl 50 MG Tablet 1 tab(s) orally every 4 hours , Not-Taking/PRN Caltrate 600+D Plus Minerals 600-800 MG-UNIT Tablet 1 tab(s) orally 2 times a day , Not-Taking/PRN Claritin 10 MG Tablet 1 tab(s) orally once a day , Not-Taking/PRN ONE DAILY MULTI-ESSENTIAL MULTIPLE VITAMINS TABLET 1 TAB(S) ORALLY ONCE A DAY , Notes to Pharmacist: *Please review for potential replacement for e-prescription and drug interaction check*, Not-Taking/PRN EPINEPHRINE TWO-PACK 0.3 MG KIT 0.3 MG INTRAMUSCULARLY ONCE , Notes to Pharmacist: *Please review for potential replacement for e-prescription and drug interaction check*, Not- Taking/PRN Xolair 150 MG Solution Reconstituted 300 mg subcutaneously every 4 weeks , Not-Taking/PRN Nasacort Allergy 24HR 55 MCG/ACT Aerosol 2 spray(s) intranasally once a day , Not-Taking/PRN hydroCHLOROthiazide 25 MG Tablet , Not-Taking/PRN amLODIPine Besylate 5 MG Tablet 1 tab(s) orally once a day , Not-Taking/PRN Metoprolol Succinate ER 25 MG Tablet Extended Release 24 Hour 1 tab(s) orally once a day , Not- Taking/PRN Spiriva HandiHaler 18 MCG Capsule 1 puff inhaled Qday , Not-Taking/PRN predniSONE 20 MG Tablet 2 tab(s) orally once a day , Not-Taking/PRN HumaLOG KwikPen 100 UNIT/ML Solution Pen-injector , Not-Taking/PRN PROAIR HFA 90 MCG/INH AEROSOL 2 PUFFS INHALED Q4-6 HOURS, PRN AND PER THE ASTHMA ACTION PLAN , Notes to Pharmacist: *Please review for potential replacement for e-prescription and drug interaction check*, Not-Taking/PRN Levothyroxine Sodium 150 MCG Tablet 1 tab(s) orally once a day , Not-Taking/PRN FLUoxetine HCl 20 MG Capsule 1 cap(s) orally once a day , Not-Taking/PRN DULoxetine HCl 60 MG Capsule Delayed Release Particles 1 cap(s) orally once a day , Not-Taking/PRN Caltrate 600+D Plus Minerals 600-800 MG-UNIT Tablet 1 tab(s) orally 2 times a day , Not-Taking/PRN Omeprazole 20 MG Capsule Delayed Release 1 cap(s) orally once a day , Not-Taking/PRN Aspirin 81 MG Tablet Chewable 1 tab(s) chewed once a day , Not-Taking/PRN Cetirizine HCl 10 MG Tablet 1 tab(s) orally once a day , Not-Taking/PRN Atorvastatin Calcium 40 MG Tablet 1 tab(s) orally once a day , Not-Taking/PRN Vitamin D3 50 MCG (2000 UT) Tablet as directed orally once a day , Not-Taking/PRN Spiriva Respimat 1.25 MCG/ACT Aerosol Solution 2 puff(s) inhaled once a day , Not-Taking/PRN Omeprazole 40 MG Capsule Delayed Release 1 cap(s) orally once a day , Not-Taking/PRN Antioxidant Formula - Tablet as directed orally , Not-Taking/PRN Azelastine HCl 137 MCG/SPRAY Solution 2 spray(s) intranasally BID, PRN , Not-Taking/PRN HUMALOG KWIKPEN (CONCENTRATED) 200 UNITS/ML SOLUTION INJECT UP TO 56 UNITS SUBCUTANEOUSLY THREE TIMES DAILY WITH MEALS , Notes to Pharmacist: *Please review for potential replacement for e-prescription and drug interaction check*, Not-Taking/PRN Methotrexate 2.5 MG TABLET 7 TAB(S) ORALLY ONCE A WEEK , Notes to Pharmacist: *Please review and pick correct strength-formulation from [employer] options. If intended option is not shown, discontinue and re-order from Quick Search*, Not-Taking/PRN Rosuvastatin Calcium 10 MG Tablet 1 tab(s) orally once a day , Not-Taking/PRN Toujeo Max SoloStar 300 UNIT/ML Solution Pen-injector INJECT 100 UNITS SUBCUTANEOUSLY ONCE DAILY DIRECTED , Not-Taking/PRN Xiidra 5 % Solution INSTILL 1 DROP INTO EACH EYE TWICE DAILY , Not-Taking/PRN Omeprazole Magnesium 20 MG Tablet Delayed Release 1 tab(s) orally once a day , Not-Taking/PRN Metoprolol Succinate ER 25 MG Tablet Extended Release 24 Hour 1 tab(s) orally once a day , Not-Taking/PRN Levothyroxine Sodium 125 MCG Tablet 1 tab(s) orally once a day , Not-Taking/PRN DULoxetine HCl 60 MG Capsule Delayed Release Particles 1 cap(s) orally once a day , Not-Taking/PRN Rosuvastatin Calcium 10 MG Tablet 1 tab(s) orally once a day , Not-Taking/PRN Xarelto 10 MG Tablet 1 tab(s) orally once a day , Not- Taking/PRN Methotrexate 2.5 MG TABLET DIRECTED ORALLY ONCE A WEEK , Notes to Pharmacist: *Please review and pick correct strength-formulation from [employer] options. If intended option is not shown, discontinue and re-order from Quick Search*, Not-Taking/PRN Toujeo Max SoloStar 300 UNIT/ML Solution Pen-injector INJECT 80 UNITS SUBCUTANEOUSLY ONCE DAILY , Not-Taking/PRN HUMALOG KWIKPEN (CONCENTRATED) 200 UNITS/ML SOLUTION , Notes to Pharmacist: *Please review for potential replacement for e-prescription and drug interaction check*, Not-Taking/PRN SIT (TRADITIONAL) VARIABLE SEE RECORD PER SCHEDULE SC PER SCHEDULE , Notes to Pharmacist: *Please review for potential replacement for e-prescription and drug interaction check*, Not- Taking/PRN Ventolin HFA 108 (90 Base) MCG/ACT Aerosol Solution INHALE 2 PUFFS BY MOUTH EVERY 4 TO 6 HOURS NEEDED AND PER THE ASTHMA ACTION PLAN 17 , Not-Taking/PRN Cymbalta 30 MG Capsule Delayed Release Particles 1 cap(s) orally 2 times a day , Not- Taking/PRN Doxycycline Monohydrate 100 MG Capsule 1 cap(s) orally 2 times a day , Not- Taking/PRN Bystolic 10 MG Tablet , Not-Taking/PRN Valtrex 1 GM Tablet 1 tab(s) orally 2 times a day , Not-Taking/PRN Xolair 150 MG Solution Reconstituted , Not-Taking/PRN Tradjenta 5 MG Tablet 1 tab(s) orally once a day , Not-Taking/PRN Nasacort Allergy 24HR DIRECTED , Notes to Pharmacist: *Please review and pick correct strength- formulation from [employer] [place] options. If intended option is not shown, discontinue and re-order from Quick Search*, Not-Taking/PRN Mupirocin 2 % Ointment 1 august applied topically 2 times a day , Not-Taking/PRN Symbicort 160-4.5 MCG/ACT Aerosol Inhale 2 puffs by mouth twice daily Objective: * Vitals: * Examination: G eneral examination: General appearance: p alfonsoasant, well-developed, well-nourished, female, in no apparent distress, speaking in full sentences, with age appropriate activity, in wheelchair. HEENT: p upils equal, round, and reactive to light and accommodation , conjunctiva are normal bilaterally , turbinates 2+ swollen and pale inferiorly bilaterally , no polyps noted , no septal perforation , posterior oropharynx is erythematous and cobblestoning is present , erythema on pharyngeal wall, no exudates , tonsils are present , no tongue swelling , and uvula is midline. Oral cavity: unremarkable. Neck, thyroid : s upple, non-tender, no anterior cervical lymphadenopathy. Breasts : n ot performed. Heart: R RR, S1-S2, no murmurs, no rubs, no gallops. Lungs: c lear to auscultation and percussion in all lung , decreased air entry at bases. Neurologic exam: u nremarkable. Skin: n o rash, dermatographism, urticaria, angioedema.? Peripheral pulses: n ormal (2+) bilaterally. Back: n ormal. Extremities: n ormal ROM, no clubbing, no cyanosis, no edema. Genitalia: n ot performed. Influenza Vaccine not administered R alicia: P atient Reason Assessment: * Assessment: 1. S evere persistent asthma, uncomplicated - J45.50 (Primary) 2 . 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 C hronic obstructive pulmonary disease, unspecified - J44.9 4 . H ypoxemia - R09.02 5 . A llergic rhinitis due to pollen - J30.1 6 . O ther allergic rhinitis - J30.89 7 . O ther chronic allergic conjunctivitis - H10.45 8 . E ssential (primary) hypertension - I10 Plan: * Treatment: 2. E osinophilic asthma Notes: The patient has a diagnosis of asthma with an eosinophilic phenotype. Since starting FASENRA the patient has had decreased healthcare utilization, improvement in asthma symptoms and decreased utilization of rescue (DILMA) medications. The patient has also been compliant on FASENRA therapy? 3. C hronic obstructive pulmonary disease, unspecified Notes:Continue per pulmonary, Dr. Rivas 4. H ypoxemia Notes: Off day-time oxygen per pulmonary, today reports she wears 3 L at night per their instructions. 5. A llergic rhinitis due to pollen Continue CETIRIZINE HYDROCHLORIDE tablet, 10 mg, 1 tab(s), orally, once a day; C ontinue EPIPEN 2-MAKENZIE kit, 0.3 mg, 0.3 mg, intramuscularly, once, 30 day(s), 1, Refills 0; S tart Ipratropium [place] Solution, 0.06 %, 1 spray, Nasally, Four times a day As needed, 30 days, 1, Refills 3. ? Notes: Kelli's skin testing at a previous visit was positive only to dust mite, outside lab work positive to dust mites as well as tree/weed pollens, [place] grass and cockroach. Previously on SCIT; had been on MM from 12/2017 to 05/2021, dosing has been held since. Will continue to hold shots given her multiple health concerns; especially as her allergy symptoms are stable. Reports taking Xyzal daily with benefit. - Will continue to monitor symptoms off 6. O ther allergic rhinitis Notes:Follow allergen avoidance, meds 7. O ther chronic allergic conjunctivitis Notes:Given ocular signs and symptoms I encouraged allergy avoidance measures and meds as above. If symptoms persist, consider adding additional medications including intraocular antihistamine/mast cell stabilizer, PRN 8. E ssential (primary) hypertension Continue BYSTOLIC tablet, 10 mg, 1 tab(s), orally, once a day; C ontinue HYDROCHLOROTHIAZIDE tablet, 25 mg, 1 tab(s), orally, once a day; C ontinue LOSARTAN tablet, 50 mg, 1 tab(s), orally, once a day; C ontinue AMLODIPINE tablet, 5 mg, 1 tab(s), orally, once a day. Notes: BP normal today without symptoms of urgency or emergency. Continue serial checks and follow-up with PCP * Procedure Codes: 9 6160 PT-FOCUSED HLTH RISK ASSMT, 12429 THER/PROPH/DIAG INJ, SC/IM, J0517 Inj., benralizumab, 1 mg, Units: 30.00 , Modifiers: JZ , G8427 DOC MEDS VERIFIED W/PT OR RE, G9521 TOT # ED VSTS & IP HOSP<2 PAST 12 M, A4617 Mouthpiece, 75952 RESPIRATORY FLOW VOLUME LOOP * Preventive Medicine: Counseling: D iet a s tolerated. E xercise C ontinue activity as usual. M edication instruction: W atch for side effects of prescribed medications. E ducation: O ur staff spent an additional 30 minutes in direct contact with the patient educating them on their current diagnoses and proper treatment and prevention of symptoms and the proper use of medications. E ducation 2: O ur staff discussed the appropriate allergen avoidance measures and medication utilization including upper airway hygiene with nasal washes given the patient's clinical status and diagnoses. P atient education material sent to portal? Y es C are goal follow up plan BMI management provided Y es Above Normal BMI Follow-up W eight monitoring B P Management: PRE-HYPERTENSIVE FOLLOW-UP PLAN: P atient follow-up planned and scheduled LIFESTYLE RECOMMENDATION: H ypertension education FIRST HYPERTENSIVE BP READING FOLLOW-UP PLAN: F ollow-up 1 month REFERRAL TO ALTERNATIVE / PRIMARY CARE PROVIDER: R gualbertoal to general practitioner * Follow Up: 8 Weeks (Reason: Evaluation and Management,FASENRA Administration) * Billing Information: * Visit Code: 15173 Office Visit, Est Pt., Level 4. Modifiers: 25 * Procedure Codes: 92743 PT-FOCUSED HLTH RISK ASSMT. 11914 THER/PROPH/DIAG INJ, SC/IM. J0517 Inj., benralizumab, 1 mg. Units: 30.00. Modifiers: CHAS G8427 DOC MEDS VERIFIED W/PT OR RE. G9521 TOT # ED VSTS & IP HOSP<2 PAST 12 M. A4617 Mouthpiece. 64590 RESPIRATORY FLOW VOLUME LOOP. * Electronic signature of Keny Sotelo PA-C, [facility] on 12/20/2024 at 08:34 PM CDT Sign off status: Pending * Provider: Krysta Sotelo PA-C Date: 03/07/2023 Generated for Karine saldaña/Fady/eTransmitting on: 08:34 PM CDT History and Physical Notes * HPI (History of Present Illness) Category Sub-Category Detail Notes Category Notes *Introduction HPI: Rula [place], a 78-year-old female with complex past medical history significant for asthma/COPD overlap syndrome, A-Fib, IDDM, RA and hypertension who returns today for interval evaluation and management with scheduled Fasenra administration. Kelli is alone for today's visit. She continues doing well without oxygen use during the day, does report she wears 3 L O2 at night per pulmonology, reports she has been feeling well. She continues ICS/LABA, LAMA, LTRA and Fasenra, denies using her rescue inhaler since last letty seen. She was previously placed on Trelegy but thought it made symptoms worse for her. Previously on Symbicort, now on AirDuo. Her stripper preliminary, Dr. Rivas, had a chest CT, 6 MWT and PFTs per patient. She has been on Fasenra since 09/2018. Of note, Kelli was previously on Xolair but stopped due to high OOP. She is tolerating Fasenra injections well without adverse event, does report one episode of dyspnea last month when she was in the shower.Took albuterol and grabbed her home oxygen and a few mins later felt better. Doesn't know what triggered this. . Kelli was previously on SCIT, MM 12/2017 to 05/2021, has been holding SCIT since. She has been taking Xyzal daily with benefit. Also followed by butter wrapper for her RA. Today, she reports no fevers, chills, night sweats or other constitutional symptoms The patient is here for scheduled immunotherapy with FASENRA. Please see the attached specialty form regarding the specifics of the administration of this medication. As per our protocol, they must undergo a screening health questionnaire (medication changes, reaction(s) to last immunotherapy dose(s), current health status, ACT (if appropriate), self-injectable epinephrine on patient(?) and peak flow (if appropriate)). Also, the patient must wait in our office under direct observation of physician and staff for 2 hours after the first 3 doses, then 30 minutes after receiving this medication thereafter. Furthermore, every patient must have an epinephrine pen (self-injectable) with them at all times given the risk of anaphylaxis with FASENRA. *Biologic administration Indication for in-chief human resources officer FASENRA: Discussed with patient at length options for administration of FASENRA for self-administration or in-chief human resources officer. Patient does not feel that they can safely self-inject due to incompetence and declined training. Patient prefers to receive FASENRA in the office for post-injection monitoring. We will revisit administration options with the patient at a later date after therapy has been initiated Examination Category Sub-Category Detail Notes Category Not es General examination HEENT: pupils equal , round, and reactive to light and accommodation , conjunctiva are normal bilaterally , turbinates 2+ swollen and pale inferiorly bilaterally , no polyps noted , no septal perforation , posterior oropharynx is erythematous and cobblestoning is present , erythema on pharyngeal wall, no exudates , tonsils are present , no tongue swelling , and uvula is midline Neck, thyroid : supple,non-tender,no anterior cervical lymphadenopathy Heart: RRR, S1-S2, no murmu rs, no rubs, no gallops Lungs: clear to auscultatio n and percussion in all lung , decreased air entry at bases Extremities: normal ROM, no clubb ing, no cyanosis, no edema General appearance: pleasant, well-devel oped, well-nourished, female, in no apparent distress, speaking in full sentences, with age appropriate activity, in wheelchair Skin: no rash, dermatograp hism, urticaria, angioedema Neurologic exam: unremarkable Oral cavity: unremarkable Breasts : not performed Peripheral pulses: normal (2+) bilatera lly Back: normal Genitalia: not performed Influenza Vaccine not administered Reason:: Aviva ent Reason
--- OUTSIDE RECORDS SUMMARY | 2024-03-09 12:30 | XMS_ITS ---
Author Organization [facility] ([address]) Address [address] [place] [address] Care Team Providers Care Solar Installation Helper Name Role Phone David Pruitt MD Primary Care Provider UnavailHerbert Zaragoza Unavailable [phone] Irineo Rivas Unavailable Unavailable Hailey Sotelo Unavailable [phone] REASON FOR VISIT FASENRA Social History Sex Assigned At : Social History Observation Description Sex Assigned At Female Encounters Encounter Location Date Provider Diagnosis [facility] [address] [place] [address] 03/09/2024 Hailey Sotelo Plan Of Treatment Next Appt Details Provider Name:Hailey Sotelo , 01/18/2025 03:30:00 PM, [address] [facility], [address], [place], [address], Progress Notes * Rula GOLDSTEINDOB:1945 (79 yo F)Acc No.[id number]:03/09/2024 FASENRA 2 Patient: Rula STRONG Provider: Krysta Sotelo PA-C :1945 A ge:78 Y S ex:Female Date:03/09/2024 Address:[address] [place], [place] [id number] Pcp:David Pruitt MD Subjective: * Chief Complaints: * 1 . FASENRA. * Medical History: Objective: * Vitals: Assessment: Plan: * Treatment: * Billing Information: * Visit Code: * Procedure Codes: * Electronic signature of Keny Sotelo PA-C, MPAS on 12/20/2024 at 08:33 PM CDT Sign off status: Pending * Provider: Krysta Sotelo PA-C Date: 0 03/09/2024 Generated for Karine saldaña/Fady/Bebo on: 1 08:33 PM CDT
--- OUTSIDE RECORDS SUMMARY | 2024-03-23 12:30 | XMS_ITS ---
Author Organization On License Of [facility] [place] ([id number]) Address [address] [place] [address] Care Team Providers Care Animal Shelter Clerk Name Role Phone David Pruitt MD Primary Care Provider UnavailHerbert Zaragoza Unavailable [phone] Irineo Rivas Unavailable Unavailable Hailey Sotelo Unavailable [phone] REASON FOR VISIT ACOS Continues on Spiriva 1.25 RM and AirDuo, switched from Symbicort due to insurance. On q 8 weekFasenra injections. Passed WT, no longer has use 02 during the day, wears 3L at night per Pulmonology, ARC, holding SCIT. MM 12/2017, Has rheumatoid and osetoarthritis, on MTX and prednisone. Followed by electric sealing machine operator, On Nutrisystem and weight loss injection - doing well with weight loss. Medications Medication SIG (Take, Route, Frequency, Duration) Notes Start Date End Date Status Ipratropium Norton 0.06 % 1 spray Nasally Four times a day; Duration: 30 days As needed Active FLUTICASONE-SALMETEROL 113 mcg-14 mcg/inh 1 INH inhaled 2 times a day; Duration: 30 days Active SPIRIVA 18 mcg 1 cap(s) inhaled once a day Active FASENRA 30 mg/mL 30 mg subcutaneously every 8 weeks Active AEROCHAMBER MDI SPACER - MOUTHPIECE (ADULT) N/A As directed PO Per asthma action plan Active AMLODIPINE 5 mg 1 tab(s) orally once a day Active EPIPEN 2-MAKENZIE 0.3 mg 0.3 mg intramuscularly once; Duration: 30 day(s) Active CETIRIZINE HYDROCHLORIDE 10 mg 1 tab(s) orally once a day Active MONTELUKAST 10 mg 1 tab(s) orally once a day; Duration: 30 days Active PROAIR HFA 90 mcg/inh 2 puff(s) inhaled Q4-6 hours, PRN and per the asthma action plan Active LOSARTAN 50 mg 1 tab(s) orally once a day Active HYDROCHLOROTHIAZIDE 25 mg 1 tab(s) orally once a day Active BYSTOLIC 10 mg 1 tab(s) orally once a day Active Symbicort 160-4.5 MCG/ACT Inhale 2 puffs by mouth twice daily; Duration: 30 Not-Taking Mupirocin 2 % 1 august applied topically 2 times a day; Duration: 7 days Not-Taking Bystolic 10 MG ; Duration: 90 Not-Taking Xolair 150 MG ; Duration: 28 N ot-Taking Valtrex 1 GM 1 tab(s) orally 2 times a day Not-Taking Nasacort Allergy 24HR DIRECTED *Please re view and pick correct strength-formul ation from [employer] options. If intended option is not shown, discontinue and re-order from Quick Search* Not-Taking Tradjenta 5 MG 1 tab(s) orally once a day Not-Taking Cymbalta 30 MG 1 cap(s) orally 2 times a day Not-Taking Ventolin HFA 108 (90 Base) MCG/ACT INHALE 2 PUFFS BY MOUTH EVERY 4 TO 6 HOURS NEEDED AND PER THE ASTHMA ACTION PLAN 17; Duration: 17 Not-Taking Doxycycline Monohydrate 100 MG 1 cap(s) orally 2 times a day Not-Taking SIT (TRADITIONAL) VARIABLE PER SCHEDULE SC PER SCHEDULE; Duration: TO BE DETERMINED *Please review for potential replacement for e-prescription and drug interaction check* Not-Taking HUMALOG KWIKPEN (CONCENTRATED) 200 UNITS/ML ; Duration: 28 *Please review for potential replacement for e-prescription and drug interaction check* Not-Taking Toujeo Max SoloStar 300 UNIT/ML INJECT 80 UNITS SUBCUTANEOUSLY ONCE DAILY; Duration: 90 Not-Taking Rosuvastatin Calcium 10 MG 1 tab(s) orally once a day; Duration: 30 day(s) Not-Taking DULoxetine HCl 60 MG 1 cap(s) orally once a day; Duration: 30 day(s) Not-Taking Methotrexate 2.5 MG DIRECTED ORALLY ONCE A WEEK; Duration: 30 *Please review and pick correct strength-formul ation from [employer] options. If intended option is not shown, discontinue and re-order from Quick Search* Not-Taking Xarelto 10 MG 1 tab(s) orally once a day Not-Taking Omeprazole Magnesium 20 MG 1 tab(s) orally once a day; Duration: 14 day(s) Not-Taking Xiidra 5 % INSTILL 1 DROP INTO EACH EYE TWICE DAILY; Duration: 30 Not-Taking Levothyroxine Sodium 125 MCG 1 tab(s) orally once a day; Duration: 30 day(s) Not-Taking Metoprolol Succinate ER 25 MG 1 tab(s) orally once a day; Duration: 30 day(s) Not-Taking Toujeo Max SoloStar 300 UNIT/ML INJECT 100 UNITS SUBCUTANEOUSLY ONCE DAILY DIRECTED; Duration: 30 Not-Taking Rosuvastatin Calcium 10 MG 1 tab(s) orally once a day; Duration: 30 day(s) 1 Not-Taking Methotrexate 2.5 MG 7 TAB(S) ORALLY ONCE A WEEK *Please review and pick correct strength-formul ation from [employer] options. If intended option is not shown, discontinue and re-order from Quick Search* 1 Not-Taking Antioxidant Formula - as directed orally ; Duration: 30 day(s) Not-Taking HUMALOG KWIKPEN (CONCENTRATED) 200 UNITS/ML INJECT UP TO 56 UNITS SUBCUTANEOUSLY THREE TIMES DAILY WITH MEALS; Duration: 14 *Please review for potential replacement for e-prescription and drug interaction check* Not-Taking Azelastine HCl 137 MCG/SPRAY 2 spray(s) intranasally BID, PRN; Duration: 30 day(s) Not-Taking Atorvastatin Calcium 40 MG 1 tab(s) orally once a day Not-Taking Cetirizine HCl 10 MG 1 tab(s) orally once a day Not-Taking Spiriva Respimat 1.25 MCG/ACT 2 puff(s) inhaled once a day Not-Taking Vitamin D3 50 MCG (2000 UT) as directed orally once a day; Duration: 30 day(s) Not-Taking Omeprazole 40 MG 1 cap(s) orally once a day; Duration: 30 day(s) Not-Taking Omeprazole 20 MG 1 cap(s) orally once a day Not-Taking Caltrate 600+D Plus Minerals 600-800 MG-UNIT 1 tab(s) orally 2 times a day Not-Taking Aspirin 81 MG 1 tab(s) chewed once a day Not-Taking DULoxetine HCl 60 MG 1 cap(s) orally once a day Not-Taking FLUoxetine HCl 20 MG 1 cap(s) orally once a day Not-Taking Spiriva HandiHaler 18 MCG 1 puff inhaled Qday Not-Taki ng HumaLOG KwikPen 100 UNIT/ML ; Duration: 18 Not-Taking predniSONE 20 MG 2 tab(s) orally once a day; Duration: 5 day(s) 0 Not-Taking Levothyroxine Sodium 150 MCG 1 tab(s) orally once a day Not-Taking PROAIR HFA 90 MCG/INH 2 PUFFS INHALED Q4-6 HOURS, PRN AND PER THE ASTHMA ACTION PLAN *Please review for potential replacement for e-prescription and drug interaction check* Not-Taking hydroCHLOROthiazide 25 MG ; Duration: 90 Not-Taking Nasacort Allergy 24HR 55 MCG/ACT 2 spray(s) intranasally once a day Not-Taking Metoprolol Succinate ER 25 MG 1 tab(s) orally once a day Not-Taking amLODIPine Besylate 5 MG 1 tab(s) orally once a day Not-Taking Xolair 150 MG 300 mg subcutaneously every 4 weeks; Duration: 1 dose(s) Not-Taking Caltrate 600+D Plus Minerals 600-800 MG-UNIT 1 tab(s) orally 2 times a day Not-Taking traMADol HCl 50 MG 1 tab(s) orally every 4 hours Not-Taking ONE DAILY MULTI-ESSENTIAL MULTIPLE VITAMINS 1 TAB(S) ORALLY ONCE A DAY *Please review for potential replacement for e-prescription and drug interaction check* Not-Taking Claritin 10 MG 1 tab(s) orally once a day Not-Taking EPINEPHRINE TWO-PACK 0.3 MG 0.3 MG INTRAMUSCULARLY ONCE; Duration: 1 DOSE(S) *Please review for potential replacement for e-prescription and drug interaction check* Not-Taking Bactrim DS 800-160 MG 1 tab(s) orally 2 times a day; Duration: 10 day(s) Not-Taking Lantus 100 UNIT/ML 0 subcutaneously Not-Taking Fluticasone-Salmeterol 113-14 MCG/ACT INHALE 1 PUFF TWICE DAILY; Duration: 30 Not-Taking EpiPen 2-Makenzie 0.3 MG/0.3ML 0.3 mg intramuscularly once; Duration: 30 day(s) Not-Taking Multivitamin - 1 po once a day Not-Taking Atorvastatin Calcium 40 MG 1 tab(s) orally once a day Not-Taking Hibiclens 4% 1 AUGUST APPLIED TOPICALLY ONCE; Duration: 1 DAY(S) *Please review and pick correct strength-formul ation from [employer] options. If intended option is not shown, discontinue and re-order from Quick Search* Not-Taking Nystatin 354060 UNIT/ML 5 mL orally, swi sh & swallow tid Not-Taking Folic Acid 1 MG 1 tab(s) orally once a day Not-Taking Pioglitazone HCl 15 MG 1 tab(s) orally once a day Not-Taking VANICREAM MOISTURIZING CREAM N/A NECESSARY APPLY TO EXTERNAL SURFACES OFTEN NEEDED TO FACE, HANDS, FEET OR BODY FOR DAILY USE BY THE ENTIRE FAMILY; Duration: 30 DAY(S) *Please review for potential replacement for e-prescription and drug interaction check* Not-Taking [id number] - 1 AUGUST APPLIED TOPICALLY 2 TIMES A DAY; Duration: 30 DAY(S) *Please review for potential replacement for e-prescription and drug interaction check* Not-Taking HumaLOG 100 UNIT/ML 0 subcutaneously Not-Taking Aspirin 81 MG 1 tab(s) orally once a day Not-Taking Omeprazole 20 MG 1 cap(s) orally once a day Not-Taking SYMBICORT 160 mcg-4.5 mcg/inh Inhale 2 puffs by mouth twice daily; Duration: 30 Not-Taking TRADJENTA 5 mg 1 tab(s) orally once a day Not-Taking XOLAIR 150 mg ; Duration: 28 N ot-Taking MUPIROCIN 2% 1 august applied topically 2 times a day; Duration: 7 days Not-Taking NASACORT as directed Not-Taki ng BYSTOLIC 10 mg ; Duration: 90 Not-Taking DOXYCYCLINE monohydrate 100 mg 1 cap(s) orally 2 times a day Not-Taking VALTREX 1 g 1 tab(s) orally 2 times a day Not-Taking CYMBALTA 30 mg 1 cap(s) orally 2 times a day Not-Taking MONTELUKAST 10 mg 1 tab(s) orally once a day; Duration: 30 day(s) Not-Taking FLUTICASONE-SALMETEROL 113 mcg-14 mcg/inh 1 INH inhaled 2 times a day; Duration: 30 day(s) Not-Taking VENTOLIN HFA 90 mcg/inh INHALE 2 PUFFS B Y MOUTH EVERY 4 TO 6 HOURS NEEDED AND PER THE ASTHMA ACTION PLAN 17; Duration: 17 Not-Taking XARELTO 10 mg 1 tab(s) orally once a day Not-Taking TOUJEO MAX SOLOSTAR 300 units/mL INJECT 80 UNITS SUBCUTANEOUSLY ONCE DAILY; Duration: 90 Not-Taking METHOTREXATE 2.5 mg as directed orally once a week; Duration: 30 Not-Taking LEVOTHYROXINE 125 mcg (0.125 mg) 1 tab(s) orally once a day; Duration: 30 day(s) Not-Taking METOPROLOL 25 mg 1 tab(s) orally once a day; Duration: 30 day(s) Not-Taking ROSUVASTATIN 10 mg 1 tab(s) orally once a day; Duration: 30 day(s) Not-Taking DULOXETINE 60 mg 1 cap(s) orally once a day; Duration: 30 day(s) Not-Taking OMEPRAZOLE 20 mg 1 tab(s) orally once a day; Duration: 14 day(s) Not-Taking MOUNJARO 5 mg/0.5 mL as directed subcutaneously once a week Not-Taking POTASSIUM CHLORIDE 10 mEq 1 tab(s) orally 2 times a day; Duration: 30 day(s) Not-Taking CARTIA XT 180 mg/24 hours 1 cap(s) orally once a day; Duration: 30 day(s) Not-Taking FOLIC ACID 1 mg 1 tab(s) orally once a day Not-Taking PIOGLITAZONE 15 mg 1 tab(s) orally once a day Not-Taking PREDNISONE 10 mg 1.5 tab(s) orally once a day Not-Taking TOUJEO MAX SOLOSTAR 300 units/mL INJECT 100 UNITS SUBCUTANEOUSLY ONCE DAILY DIRECTED; Duration: 30 Not-Taking ROSUVASTATIN 10 mg 1 tab(s) orally once a day; Duration: 30 day(s) 1 Not-Taking TRELEGY ELLIPTA 200 mcg-62.5 mcg-25 mcg/inh 1 puff(s) inhaled once a day; Duration: 90 days Not-Taking XIIDRA 5% INSTILL 1 DROP INTO EACH EYE TWICE DAILY; Duration: 30 Not-Taking ANTIOXIDANT FORMULA Antioxidant Multiple Vitamins and Minerals as directed orally; Duration: 30 day(s) Not-Taking PREDNISONE 5 mg 10 tab(s) orally once a day Not-Taking METHOTREXATE 2.5 mg 7 tab(s) orally once a week 1 Not-Taking AZELASTINE HYDROCHLORIDE NASAL 137 mcg/inh 2 spray(s) intranasally BID, PRN; Duration: 30 day(s) Not-Taking OMEPRAZOLE 40 mg 1 cap(s) orally once a day; Duration: 30 day(s) Not-Taking CETIRIZINE 10 mg 1 tab(s) orally once a day Not-Taking SINGULAIR 10 mg 1 tab(s) orally once a day Not-Taking VITAMIN D3 2000 intl units as directed orally once a day; Duration: 30 day(s) Not-Taking ATORVASTATIN 40 mg 1 tab(s) orally once a day Not-Taking SPIRIVA RESPIMAT 1.25 mcg/inh 2 puff(s) inhaled once a day Not-Taking MULTIVITAMIN 1 po once a day N ot-Taking ASPIRIN 81 mg 1 tab(s) chewed once a day Not-Taking DULOXETINE 60 mg 1 cap(s) orally once a day Not-Taking OMEPRAZOLE 20 mg 1 cap(s) orally once a day Not-Taking CALTRATE 600 + D 600 mg-800 intl units 1 tab(s) orally 2 times a day Not-Taking HIBICLENS 4% 1 august applied topically once; Duration: 1 day(s) Not-Taking HUMALOG KWIKPEN 100 units/mL ; Duration: 18 Not-Taking PREDNISONE 20 mg 2 tab(s) orally once a day; Duration: 5 day(s) 0 Not-Taking FLUOXETINE 20 mg 1 cap(s) orally once a day Not-Taking LEVOTHYROXINE 150 mcg (0.15 mg) 1 tab(s) orally once a day Not-Taking TOUJEO MAX SOLOSTAR 300 units/mL INJECT 100 UNITS SUBCUTANEOUSLY DAILY PER INSULIN PROTOCOL; Duration: 30 Not-Taking METOPROLOL SUCCINATE ER 25 mg 1 tab(s) orally once a day Not-Taking SPIRIVA 18 mcg 1 puff inhaled Qday Not-Taking LANTUS 100 units/mL 0 subcutaneously Not-Taking AMLODIPINE 5 mg 1 tab(s) orally once a day Not-Taking LOSARTAN 50 mg 1 tab(s) orally once a day Not-Taking ATORVASTATIN 40 mg 1 tab(s) orally once a day Not-Taking METOPROLOL SUCCINATE ER 25 mg 1 tab(s) orally once a day Not-Taking NYSTATIN 974131 units/mL 5 mL orally, sw jennifer & swallow tid Not-Taking HYDROCHLOROTHIAZIDE 25 mg ; Duration: 90 Not-Taking XOLAIR 150 mg 300 mg subcutaneously every 4 weeks; Duration: 1 dose(s) Not-Taking ALPHA-LIPOIC ACID 600 mg orally once a day Not-Taking TRIPLE ANTIBIOTIC 400 units-3.5 mg-5000 units/g 1 august applied topically bid; Duration: 7 day(s) Not-Taking NASACORT ALLERGY 24HR 55 mcg/inh 2 spray(s) intranasally once a day Not-Taking NYSTATIN 150066 units/mL 4 mL orally 4 t imes a day Not-Taking ASPIRIN 81 mg 1 tab(s) orally once a day Not-Taking CLARITIN 24 HOUR ALLERGY 10 mg 1 tab(s) orally once a day Not-Taking LANTUS 100 units/mL 0 subcutaneously Not-Taking OMEPRAZOLE 20 mg 1 cap(s) orally once a day Not-Taking HUMALOG 100 units/mL 0 subcutaneously Not-Taking DULOXETINE 60 mg 1 cap(s) orally once a day Not-Taking TRAMADOL 50 mg 1 tab(s) orally every 4 hours Not-Taking LEVOTHYROXINE 150 mcg (0.15 mg) 1 tab(s) orally once a day Not-Taking CYMBALTA 30 mg 1 cap(s) orally 2 times a day Not-Taking CALTRATE 600 + D 600 mg-800 intl units 1 tab(s) orally 2 times a day Not-Taking BACTRIM DS 800 mg-160 mg 1 tab(s) orally 2 times a day; Duration: 10 day(s) Not-Taking MULTIVITAMIN 1 po once a day N ot-Taking FLUOXETINE 20 mg 1 cap(s) orally once a day Not-Taking Lantus 100 UNIT/ML 0 subcutaneously Not-Taking AIRDUO RESPICLICK 232 MCG-14 MCG/INH 1 INH INHALED 2 TIMES A DAY; Duration: 30 DAY(S) *Please review for potential replacement for e-prescription and drug interaction check* Not-Taking Fluticasone-Salmeterol 113 MCG-14 MCG/INH 1 INH INHALED 2 TIMES A DAY; Duration: 30 DAY(S) *Please review and pick correct strength-formul ation from [employer] options. If intended option is not shown, discontinue and re-order from Quick Search* Not-Taking Fluticasone-Salmeterol 113 MCG-14 MCG/INH 1 INH INHALED 2 TIMES A DAY; Duration: 30 DAY(S) *Please review and pick correct strength-formul ation from [employer] options. If intended option is not shown, discontinue and re-order from Quick Search* Not-Taking Montelukast Sodium 10 MG 1 tab(s) orally once a day; Duration: 30 day(s) Not-Taking Cartia XT 180 MG 1 cap(s) orally once a day; Duration: 30 day(s) Active Mounjaro 5 MG/0.5 ML DIRECTED SUBCUTANEOUSLY ONCE A WEEK *Please review and pick correct strength-formul ation from [employer] options. If intended option is not shown, discontinue and re-order from Quick Search* Active Potassium Chloride ER 10 MEQ 1 tab(s) orally 2 times a day; Duration: 30 day(s) Active Trelegy Ellipta 200 MCG-62.5 MCG-25 MCG/INH 1 PUFF(S) INHALED ONCE A DAY; Duration: 90 DAYS *Please review and pick correct strength-formul ation from [employer] options. If intended option is not shown, discontinue and re-order from Quick Search* Active Losartan Potassium 50 MG 1 tab(s) orally once a day Active Singulair 10 MG 1 tab(s) orally once a day Active Toujeo Max SoloStar 300 UNIT/ML INJECT 100 UNITS SUBCUTANEOUSLY DAILY PER INSULIN PROTOCOL; Duration: 30 Active Triple Antibiotic 3.5-400-5000 1 august applied topically bid; Duration: 7 day(s) Active Alpha-Lipoic Acid 600 MG orally once a day Active Nystatin 145882 UNIT/ML 4 mL orally 4 ti mes a day Active Levothyroxine Sodium 150 MCG 1 tab(s) orally once a day Active Metoprolol Succinate ER 25 MG 1 tab(s) orally once a day Active DULoxetine HCl 60 MG 1 cap(s) orally once a day Active FLUoxetine HCl 20 MG 1 cap(s) orally once a day Active Cymbalta 30 MG 1 cap(s) orally 2 times a day Active Spiriva HandiHaler 18 MCG 1 cap(s) inhaled once a day Active Fasenra 30 MG/ML 30 MG SUBCUTANEOUSLY EVERY 8 WEEKS *Please review and pick correct strength-formul ation from [employer] options. If intended option is not shown, discontinue and re-order from Quick Search* Active Losartan Potassium 50 MG 1 tab(s) orally once a day Active hydroCHLOROthiazide 25 MG 1 tab(s) orally once a day Active Bystolic 10 MG 1 tab(s) orally once a day Active Cetirizine HCl 10 MG 1 tab(s) orally once a day Active amLODIPine Besylate 5 MG 1 tab(s) orally once a day Active predniSONE 10 mg 1.5 tab(s) orally once a day Not-Taking predniSONE 5 mg 10 tab(s) orally once a day Not-Taking Social History Sex Assigned At : Social History Observation Description Sex Assigned At Female Encounters Encounter Location Date Provider Diagnosis [facility] [address] [place] [address] 03/23/2024 Hailey Sotelo Severe persistent asthma, uncomplicated J45.50 ; Eosinophilic asthma J82.83 ; Chronic obstructive pulmonary disease, unspecified J44.9 ; Hypoxemia R09.02 ; Allergic rhinitis due to pollen J30.1 ; Other allergic rhinitis J30.89 ; Other chronic allergic conjunctivitis H10.45 and Essential (primary) hypertension I10 Assessments Encounter Date Diagnosis (ICD Code) Assessment Notes Treatment Notes Treatment Clinical Notes Section Notes 03/23/2024 Severe persistent asthma, uncomplicated (ICD-10 - J45.50) [...] wear 3 L at night. - Spirometry last visit with mild obstruction. Previously discusssed a changed to Trelegy but she clinically feesl stable on her current regimen. Again, discussed change today but she is not interested at this time as she feels she is doing well. -Recommend annual flu shot - Continued Fasenra today - we have discussed possible switch to different anti IL-5 given but will reserve this option for future since symptoms are stable - states she feels great on Fasenra currently. That said she previously reported wheezing in the past at 6 weeks after Fasenra administration. Today, feels she has dry cough 1-2 weeks prior to dosing, deneis wheezing. If issues still persist then consider switch to Tezspire. - Follow-up in 8 weeks for Fasenra. - Lungs clear on exam. 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 Since starting FASENRA the patient has had decreased healthcare utilization, improvement in asthma symptoms and decreased utilization of rescue (DILMA) medications. The patient has also been compliant on FASENRA therapy 03/23/2024 Chronic obstructive pulmonary disease, unspecified (ICD-10 - J44.9) Continue per pulmonary, Dr. Rivas 03/23/2024 Hypoxemia (ICD-10 - R09.02) Off day-time oxygen per pulmonary, today reports she wears 3 L at night per their instructions. 03/23/2024 Allergic rhinitis due to pollen (ICD-10 - [...] benefit. - Will continue to monitor symptoms off. - Unable to use nasal sprays due to inability to pump nasal spray with hands. 03/23/2024 Other allergic rhinitis (ICD-10 - J30.89) Follow allergen avoidance, meds 03/23/2024 Other chronic allergic conjunctivitis (ICD-10 - H10.45) Given ocular signs and symptoms I encouraged allergy avoidance measures and meds as above. If symptoms persist, consider adding additional medications including intraocular antihistamine/ma st cell stabilizer, PRN 03/23/2024 Essential (primary) hypertension (ICD-10 - I10) BP normal today without symptoms of urgency or emergency. Continue serial checks and follow-up with PCP 03/23/2024 Other Plan Of Treatment Medication Medication Name Sig Start Date Stop Date Notes Ipratropium Norton 0.06 % 1 spray Nasal ly Four times a day; Duration: 30 days FLUTICASONE-SALMETEROL 113 mcg-14 mcg/inh 1 INH inhaled 2 times a day; Duration: 30 days SPIRIVA 18 mcg 1 cap(s) inhaled once a day FASENRA 30 mg/mL 30 mg subcutaneously every 8 weeks AEROCHAMBER MDI SPACER - MOUTHPIECE (ADULT) N/A As directed PO Per asthma action plan AMLODIPINE 5 mg 1 tab(s) orally once a day EPIPEN 2-MAKENZIE 0.3 mg 0.3 mg intramuscular ly once; Duration: 30 day(s) CETIRIZINE HYDROCHLORIDE 10 mg 1 tab(s) orally once a day MONTELUKAST 10 mg 1 tab(s) orally once a day; Duration: 30 days PROAIR HFA 90 mcg/inh 2 puff(s) inhaled Q4-6 hours, PRN and per the asthma action plan LOSARTAN 50 mg 1 tab(s) orally once [...] wear 3 L at night. - Spirometry last visit with mild obstruction. Previously discusssed a changed to Trelegy but she clinically feesl stable on her current regimen. Again, discussed change today but she is not interested at this time as she feels she is doing well. -Recommend annual flu shot - Continued Fasenra today - we have discussed possible switch to different anti IL-5 given but will reserve this option for future since symptoms are stable - states she feels great on Fasenra currently. That said she previously reported wheezing in the past at 6 weeks after Fasenra administration. Today, feels she has dry cough 1-2 weeks prior to dosing, deneis wheezing. If issues still persist then consider switch to Tezspire. - Follow-up in 8 weeks for Fasenra. [...] benefit. - Will continue to monitor symptoms off. - Unable to use nasal sprays due to inability to pump nasal spray with hands. Other allergic rhinitis Follow allergen avoidance, meds [...] Name:Hailey Sotelo , 01/18/2025 03:30:00 PM, [address] [facility], [address] [place] [address], [id number], Progress Notes * Rula GOLDSTEINDOB:1945 (79 yo F)Acc No.[id number]:03/23/2024 ANDALUSIA HEALTHENRA 2 Patient: Rula STRONG Provider: Krysta Sotelo PA-C :1945 A ge:78 Y S ex:Female Date:03/23/2024 Address:[address] [place], [place] [id number] Pcp:David Pruitt MD Subjective: * Chief Complaints: * 1 . ACOS Continues on Spiriva 1.25 RM and AirDuo, switched from Symbicort due to insurance. On q 8 week Fasenra injections. Passed WT, no longer has use 02 during the day, wears 3L at night per Pulmonology. 2. ARC, holding SCIT. MM 12/2017. 3. Has rheumatoid and osetoarthritis, on MTX and prednisone. 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 4. On Nutrisystem and weight loss injection - doing well with weight loss.. * HPI: * Introduction: HPI: Glenn Goldstein, a 78-year-old female with complex past medical history significant for asthma/COPD overlap syndrome, A-Fib, IDDM, RA and hypertension who returns today for interval evaluation and management with scheduled Fasenra administration. Kelli is alone for today's visit. She is new to me, last evalated by PA Sotelo in 10/2023. She tolerated last Fasenra injection 8 weeks ago. She continues doing well without oxygen use [...] Previously on Symbicort, now on AirDuo. Her front office help, Dr. Rivas, had a chest CT, 6 MWT and PFTs per patient. She has been on Fasenra since 09/2018. Of note, Kelli was previously on Xolair but stopped due to high OOP. She is tolerating Fasenra injections well without adverse event. Today, reports dry cough that begins 1-2 weeks prior to Fasenra dosing. Overall, she is very pleased with her progress on Fasenra. Kelli was previously on SCIT, MM 12/2017 to 05/2021, has been holding SCIT since. She has been taking Xyzal daily with benefit. She is unable to use nasal sprays due to RA. Also followed by electric sealing machine operator for her RA. Today, she reports no fevers, chills, night sweats or other constitutional symptoms. The patient is here for scheduled immunotherapy [...] with FASENRA. * Biologic administration: Indication for in-national service officer F ASENRA: Discussed with patient at length options for administration of FASENRA for self-administration or in-national service officer. Patient does not feel that they [...] * Medical History: * Medications: T aking Ipratropium Norton 0.06 % Solution 1 spray Nasally Four times a day As needed, Taking Bystolic 10 MG Tablet 1 tab(s) orally [...] orally once a day , Taking Nystatin 606270 UNIT/ML Suspension 4 mL orally 4 times [...] *Please review and pick correct strength-formulation from [employer] options. If intended option is not shown, discontinue and re-order from Quick Search*, Taking Potassium Chloride ER 10 MEQ Tablet Extended Release 1 tab(s) orally 2 times a day , Taking Mounjaro 5 MG/0.5 ML SOLUTION DIRECTED SUBCUTANEOUSLY ONCE A WEEK , Notes to Pharmacist: *Please review and pick correct strength-formulation from QPDspan options. If intended option is not shown, discontinue and re-order from Quick Search*, Taking Cartia XT 180 MG Capsule Extended Release 24 Hour 1 cap(s) orally once a day , Not-Taking/PRN predniSONE 5 mg tablet 10 tab(s) orally once a day , Not-Taking/PRN predniSONE 10 mg tablet 1.5 tab(s) orally once a day , Not-Taking/PRN BYSTOLIC 10 mg tablet 1 tab(s) orally once a day , Not-Taking/PRN HYDROCHLOROTHIAZIDE 25 mg tablet 1 tab(s) orally once a day , Not-Taking/PRN LOSARTAN 50 mg tablet 1 tab(s) orally once a day , Not-Taking/PRN AMLODIPINE 5 mg tablet 1 tab(s) orally once a day , Not- Taking/PRN CETIRIZINE HYDROCHLORIDE 10 mg tablet 1 tab(s) orally once a day , Not- Taking/PRN EPIPEN 2-MAKENZIE 0.3 mg kit 0.3 mg intramuscularly once , Not-Taking/PRN MONTELUKAST 10 mg tablet 1 tab(s) orally once a day , Not-Taking/PRN PROAIR HFA 90 mcg/inh aerosol 2 puff(s) inhaled Q4-6 hours, PRN and per the asthma action plan , Not-Taking/PRN AEROCHAMBER MDI SPACER - MOUTHPIECE (ADULT) N/A Spacer for MDI use As directed PO Per asthma action plan , Not-Taking/PRN FASENRA 30 mg/mL solution 30 mg subcutaneously every 8 weeks , Not-Taking/PRN SPIRIVA 18 mcg capsule 1 cap(s) inhaled once a day , Not-Taking/PRN FLUTICASONE-SALMETEROL 113 mcg-14 mcg/inh powder 1 INH inhaled 2 times a day , Not-Taking/PRN Fluticasone-Salmeterol 113 MCG-14 MCG/INH POWDER 1 INH INHALED 2 TIMES A DAY , Notes to Pharmacist: *Please review and pick correct strength-formulation from MailFrontier options. If intended option is not shown, discontinue and re-order from Quick Search*, Not-Taking/PRN Montelukast Sodium 10 MG Tablet 1 tab(s) orally once a day , Not-Taking/PRN Fluticasone-Salmeterol 113 MCG-14 MCG/INH POWDER 1 INH INHALED 2 TIMES A DAY , Notes to Pharmacist: *Please review and pick correct strength-formulation from [employer]Frontier options. If intended option is not shown, discontinue and re-order from Quick Search*, Not-Taking/PRN predniSONE 5 mg tablet 10 tab(s) orally once a day , Not-Taking/PRN predniSONE 10 mg tablet 1.5 tab(s) orally once a day , Not-Taking/PRN AIRDUO RESPICLICK 232 MCG-14 MCG/INH POWDER 1 INH INHALED 2 TIMES A DAY , Notes to Pharmacist: *Please review for potential replacement for e-prescription and drug interaction check*, Not-Taking/PRN Lantus 100 UNIT/ML Solution 0 subcutaneously , Not-Taking/PRN MULTIVITAMIN tablet 1 po once a day , Not-Taking/PRN BACTRIM DS 800 mg-160 mg tablet 1 tab(s) orally 2 times a day , Not-Taking/PRN FLUOXETINE 20 mg capsule 1 cap(s) orally once a day , Not- Taking/PRN TRAMADOL 50 mg tablet 1 tab(s) orally [...] orally once a day , Not-Taking/PRN NYSTATIN 050708 units/mL suspension 4 mL orally 4 times a day , Not-Taking/PRN ALPHA-LIPOIC ACID 600 mg capsule orally once a day , Not-Taking/PRN XOLAIR 150 mg powder for injection 300 [...] HYDROCHLOROTHIAZIDE 25 mg tablet , Not-Taking/PRN NYSTATIN 998947 units/mL suspension 5 mL orally, swish & [...] tab(s) orally once a day , Not-Taking/PRN CYMBALTA [...] HumaLOG 100 UNIT/ML Solution 0 subcutaneously , Not-Taking/PRN Omeprazole 20 MG Capsule Delayed Release 1 cap(s) orally once a day , Not-Taking/PRN Aspirin 81 MG Tablet Delayed Release 1 tab(s) orally once a day , Not-Taking/PRN [id number]-O-QHS39 - CREAM 1 AUGUST APPLIED TOPICALLY 2 [...] orally once a day , Not-Taking/PRN Nystatin 576692 UNIT/ML Suspension 5 mL orally, swish & [...] 1 po once a day , Not-Taking/PRN EpiPen 2-Makenzie 0.3 MG/0.3ML Solution Auto-injector 0.3 [...] *Please review and pick correct strength-formulation from MailFrontier options. If intended option is not shown, [...] review and pick correct strength- formulation from Medispan options. If intended option is not shown, discontinue and re-order from Quick Search*, Not-Taking/PRN Mupirocin 2 % Ointment 1 august applied topically 2 times a day , Not-Taking/PRN Symbicort 160-4.5 MCG/ACT Aerosol Inhale 2 puffs by mouth twice daily Objective: * Vitals: * Examination: G eneral examination: General appearance: p leasant, well-developed, well-nourished, female, in no apparent distress, speaking in full sentences, with age appropriate activity, with walker. HEENT: p upils equal, round, and reactive [...] and uvula is midline. Oral cavity: unremarkable. Breasts : n ot performed. Heart: R RR, S1-S2, no murmurs, no rubs, no gallops. Lungs: c lear to auscultation in all lung , decreased air entry [...] day(s), 1, Refills 0; S tart Ipratropium Norton Solution, 0.06 %, 1 spray, Nasally, Four [...] benefit. - Will continue to monitor symptoms off. - Unable to use nasal sprays due to inability to pump nasal spray with hands. 6. O ther allergic rhinitis Notes:Follow allergen [...] Codes: 9 6160 PT-FOCUSED HLTH RISK ASSMT, 22143 THER/PROPH/DIAG INJ, SC/IM, J0517 Inj., benralizumab, 1 mg, Units: 30.00 , Modifiers: CHAS G8427 DOC MEDS VERIFIED W/PT OR RE, G9521 TOT # ED VSTS & IP HOSP<2 PAST 12 M * Preventive Medicine: Counseling: D iet a s tolerated. E xercise C ontinue activity as usual. M edication instruction: W atc for side effects of prescribed medications. E [...] education material sent to portal? Y es * Follow Up: 8 Weeks (Reason: Evaluation and Management,FASENRA Administration) * Billing Information: * Visit Code: 63808 Office Visit, Est Pt., Level 4. Modifiers: 25 * Procedure Codes: 94314 PT-FOCUSED HLTH RISK ASSMT. 20623 THER/PROPH/DIAG INJ, SC/IM. J0517 Inj., benralizumab, 1 mg. Units: 30.00. Modifiers: CHAS G8427 DOC MEDS VERIFIED W/PT OR RE. G9521 TOT # ED VSTS & IP HOSP<2 PAST 12 M. * Electronic signature of Keny Sotelo PA-C, [facility] on 12/20/2024 at 08:33 PM CDT Sign off status: Pending * Provider: Krysta Sotelo PA-C Date: 0 03/23/2024 Generated for Karine Roca/Bebo on: 08:33 PM CDT History and Physical Notes * HPI (History of Present Illness) Category Sub-Category Detail Notes Category Notes *Introduction HPI: Rula Goldstein, a 78-year-old female with complex past medical history significant for asthma/COPD overlap syndrome, A-Fib, IDDM, RA and hypertension who returns today for interval evaluation and management with scheduled Fasenra administration. Kelli is alone for today's visit. She is new to me, last evalated by PA Sotelo in 10/2023. She tolerated last Fasenra injection 8 weeks ago. She continues doing well without oxygen use [...] Previously on Symbicort, now on AirDuo. Her front office help, Dr. Rivas, had a chest CT, 6 MWT and PFTs per patient. She has been on Fasenra since 09/2018. Of note, Kelli was previously on Xolair but stopped due to high OOP. She is tolerating Fasenra injections well without adverse event. Today, reports dry cough that begins 1-2 weeks prior to Fasenra dosing. Overall, she is very pleased with her progress on Fasenra. Kelli was previously on SCIT, MM 12/2017 to 05/2021, has been holding SCIT since. She has been taking Xyzal daily with benefit. She is unable to use nasal sprays due to RA. Also followed by electric sealing machine operator for her RA. Today, she reports no [...] anaphylaxis with FASENRA. *Biologic administration Indication for in-national service officer FASENRA: Discussed with patient at length options for administration of FASENRA for self-administration or in-national service officer. Patient does not feel that they [...] tongue swelling , and uvula is midline Heart: RRR, S1-S2, no murmu rs, no rubs, no gallops Lungs: clear to auscultatio n in all lung , decreased air entry at bases Extremities: normal ROM, no clubb ing, no cyanosis, no edema General appearance: pleasant, well-devel oped, well-nourished, female, in no apparent distress, speaking in full sentences, with age appropriate activity, with walker Skin: no rash, dermatograp hism, urticaria, angioedema Neurologic exam: unremarkable Oral cavity: unremarkable Breasts : not performed Peripheral pulses: normal (2+) bilatera lly Back: normal Genitalia: not performed Influenza Vaccine not administered Reason:: Aviva ent Reason
--- OUTSIDE RECORDS SUMMARY | 2024-09-14 12:30 | XMS_ITS ---
Author Organization [facility] [employer] [facility] [place] ([address]) Address [address] [place] [address] Care Team Providers Care Industrial Registered Nurse Name Role Phone David Pruitt MD Primary Care Provider UnavailHerbert Zaragoza Unavailable [phone] Irineo Rivas Unavailable Unavailable Sean Brown Unavailable [phone] REASON FOR VISIT FASENRA BB Only Social History Sex Assigned At : Social History Observation Description Sex Assigned At Female Encounters Encounter Location Date Provider Diagnosis [facility] [address] [place] [address] 09/14/2024 Sean Brown Plan Of Treatment Next Appt Details Provider Name:Hailey Sotelo , 01/18/2025 03:30:00 PM, [address] [facility], [address], [place], [address], Progress Notes * Rula GOLDSTEINDOB:1945 (79 yo F)Acc No.[id number]:09/14/2024 FASENRA Only Patient: Rula STRONG Provider: Glenn Brown MD :1945 A ge:78 Y S ex:Female Date:09/14/2024 Address:[address] [place], [place] [id number] Pcp:David Pruitt MD Subjective: * Chief Complaints: * 1 . FASENRA BB Only. * Medical History: Objective: * Vitals: Assessment: Plan: * Treatment: * Billing Information: * Visit Code: * Procedure Codes: * Electronic signature of Bianca Brown MD, FAAAAI on 12/20/2024 at 08:33 PM CDT Sign off status: Pending * Provider: Glenn Brown MD Date: 0 09/14/2024 Generated for Karine saldaña/Fady/Bebo on: 1 08:33 PM CDT
--- OUTSIDE RECORDS SUMMARY | 2024-12-19 15:05 | XMS_ITS | Encounter Summary ---
Author Organization [facility] Address [facility] access hospital[address] [place] [address] Care Team Providers Care Heart Coordinator Name Role Phone David Pruitt MD Primary Care Provider [phone] Encounter Details Date Type Department Care Team (Late st Contact Info) Description 12/19/2024 3:05 PM CDT Hospital Encounter [facility] [address] [place] [address] Ivonne Mcguire MD [address] [place] [address] Arrived Social History Tobacco Use Types Packs/Day Years [...] Procedure Name Priority Date/Time Associated Diagnosis Comments BASIC METABOLIC PANEL Routine 12/19/2024 3:49 PM CDT Encounter for therapeutic drug monitoring HEPATIC FUNCTION PANEL Routine 12/19/2024 3:49 PM CDT Encounter for therapeutic drug monitoring CBC W/DIFF AUTOMATED Routine 12/19/2024 3:49 PM CDT Encounter for therapeutic drug monitoring documented in this encounter Results * (ABNORMAL) HEPATIC FUNCTION PANEL (12/19/2024 3:49 PM CDT) TOTAL PROTEIN S/P/B 7.3 6.4 - 8.2 G/DL 12/19/2024 4:15 PM CDT [facility] ALBUMIN S/P/B 3.5 3.4 - 5.0 G/DL 12/19/2024 4:15 PM CDT [facility] BILIRUBIN TOTAL S/P/B 0.7 0.2 - 1.2 MG/DL 12/19/2024 4:15 PM CDT [facility] BILIRUBIN DIRECT S/P/B 0.2 0.0 - 0.20 MG/DL 12/19/2024 4:15 PM CDT [facility] BILIRUBIN INDIRECT S/P/B 0.5 0.0 - 0.9 MG/DL 12/19/2024 4:15 PM CDT [facility] ALKALINE PHOSPHATASE S/P/B 135 50 - 136 U/L 12/19/2024 4:15 PM CDT [facility] AST 19 15 - 37 U/L 12/19/2024 4:15 PM CDT [facility] ALT 17 14 - 55 U/L 12/19/2024 4:15 PM CDT [facility] A/G RATIO 0.9(L) 1.0 - 2.0 RATIO 12/19/2024 4:15 PM T [facility] 12/19/2024 3:49 PM CDT us Ivonne Mcguire MD LABORATORY Final Result [facility] [address] [place] [address], [place] [phone] * (ABNORMAL) BASIC METABOLIC PANEL (12/19/2024 3:49 PM CDT) [facility] GLUCOSE 293(H) 70 - 99 MG/DL 12/19/2024 4:15 PM [facility] BUN 9 7 - 18 MG/DL 12/19/2024 4:15 PM [facility] CREATININE S/P/B 0.60 0.55 - 1.02 MG/DL 12/19/2024 4:15 PM [facility] SODIUM S/P/B 130(L) 136 - 145 MMOL/L 12/19/2024 4:15 PM [facility] POTASSIUM S/P/B 3.4(L) 3.5 - 5.1 MMOL/L 12/19/2024 4:15 PM [facility] CHLORIDE S/P/B 92(L) 100 - 108 MMOL/L 12/19/2024 4:15 PM [facility] CO2 28.6 21 - 32 MMOL/L 12/19/2024 4:15 PM [facility] CALCIUM S/P/B 8.7 8.5 - 10.1 MG/DL 12/19/2024 4:15 PM [facility] ANION GAP 9.4 5 - 15 MMOL/L 12/19/2024 4:15 PM [facility] BUN CREATININE RATIO 15.0 6 - 26 12/19/2024 4:15 PM [facility] GFR ESTIMATE >90 >90 ML/MIN/1.7 3 M2 12/19/2024 4:15 PM [facility] Comment: NOTE: eGFR is not calculated for patients <18 years of age. This is an estimated GFR calculation using the new CKD EPI creatinine equation without race and so does not require a correction factor for race. This estimated GFR should not be used for calculating drug doses. 12/19/2024 3:49 PM CDT Ivonne Mcguire MD LABORATORY Final Result [facility] [address] [place] [address], * (ABNORMAL) CBC W/DIFF AUTOMATED (12/19/2024 3:49 PM CDT) WBC 7.93 4.4 - 11.0 x10'3/uL 12/19/2024 4:00 PM CDT [facility] RBC 4.07(L) 4.50 - 5.10 x10'6/uL 12/19/2024 4:00 PM CDT [facility] HGB 10.3(L) 12.3 - 15.3 G/DL 12/19/2024 4:00 PM CDT [facility] HCT 32.2(L) 35.9 - 44.6 % 12/19/2024 4:00 PM CDT [facility] MCV 79.1(L) 80.0 - 96.0 FL 12/19/2024 4:00 PM CDT [facility] MCH 25.3 25.3 - 30.9 PG 12/19/2024 4:00 PM CDT [facility] MCHC 32.0 31.0 - 34.1 G/DL 12/19/2024 4:00 PM CDT [facility] RDW 20.6(H) 12.4 - 15.1 % 12/19/2024 4:00 PM CDT [facility] PLT 274 151 - 353 x10'3/uL 12/19/2024 4:00 PM CDT [facility] MPV 9.6 9.6 - 12.0 FL 12/19/2024 4:00 PM CDT [facility] RBC MORPHOLOGY NORMAL 12/19/2024 4:00 PM CDT [facility] PLT MORPH. NORMAL 12/19/2024 4:00 PM CDT [facility] WBC MORPHOLOGY NORMAL 12/19/2024 4:00 PM CDT [facility] LYMPHOCYTES % 13.6(L) 15.8 - 45.0 % 12/19/2024 4:00 PM CDT [facility] NEUTROPHILS % 78.4(H) 42.1 - 71.9 % 12/19/2024 4:00 PM CDT [facility] MONOCYTES % 7.6 5.7 - 12.5 % 12/19/2024 4:00 PM CDT [facility] EOSINOPHILS 0.0 0.0 - 5.6 % 12/19/2024 4:00 PM CDT [facility] BASOPHILS 0.1 0.0 - 1.3 % 12/19/2024 4:00 PM CDT [facility] ABS. NEUTROPHILS 6.22(H) 1.40 - 6.00 x10'3/uL 12/19/2024 4:00 PM CDT [facility] IMMATURE GRANS % 0.3 0.0 - 0.5 % 12/19/2024 4:00 PM CDT [facility] ABS. LYMPHOCYTES 1.08 0.80 - 4.70 x10'3/uL 12/19/2024 4:00 PM CDT [facility] 12/19/2024 3:49 PM CDT us Ivonne Mcguire MD LABORATORY Final Result [facility] [address] [place] [address], documented in this encounter Visit Diagnoses Diagnosis Encounter for therapeutic drug monitoring documented in this encounter Care Teams Heart Coordinator Relationship Specialty Start Date End Date David Pruitt MD [address] [facility] [address] [place] [address] PCP - General FAMILY PRACTICE 10/09/21 documented as of this encounter
--- NOTE | ~2024-12-20 | CT_ITS ---
CT brain wo con HISTORY:fall COMPARISON: None. TECHNIQUE: Axial images were obtained of the head without intravenous contrast. FINDINGS: No acute intracranial hemorrhage, mass effect or midline shift. No extra-axial fluid collections. Generalized atrophy and chronic white matter microangiopathic changes.Visualized paranasal sinuses and mastoid air cells are clear. IMPRESSION: No acute intracranial hemorrhage or extra axial fluid collections. Generalized atrophy and chronic white matter microangiopathic changes. All CT scans at this facility are performed using low dose modulation techniques as appropriate to perform exam including the following: automated exposure control; use of iterative reconstruction technique; adjustment of the mA and/or kV according to patient size (this includes techniques or standardized protocols for targeted exams where dose is matched to indication/reason for exam). Reviewed, dictated and finalized at location S. IMPRESSION: No acute intracranial hemorrhage or extra axial fluid collections. Generalized atrophy and chronic white matter microangiopathic changes. All CT scans at this facility are performed using low dose modulation techniqu es as appropriate to perform exam including the following: automated exposure c ontrol; use of iterative reconstruction technique; adjustment of the mA and/or kV according to patient size (this includes techniques or standardized protocol s for targeted exams where dose is matched to indication/reason for exam).
--- NOTE | ~2024-12-20 | CT_ITS ---
CT cervical spine wo con HISTORY: fall COMPARISON: None TECHNIQUE: Axial images of the cervical spine were obtained. Multiplanar reconstruction in the coronal, sagittal and axial reformats to evaluate for cervical fracture. FINDINGS: The images demonstrate no acute fracture or paravertebral soft tissue swelling. Degenerative changes with disc bulging disc osteophyte complex are noted throughout the cervical spine. No significant degenerative changes are noted. The visualized aspect of the upper lungs are clear. IMPRESSION: No acute fracture or subluxation. Moderate multilevel degenerative changes as All CT scans at this facility are performed using low dose modulation techniques as appropriate to perform exam including the following: automated exposure control; adjustment of the mA and/or kV according to patient size (this includes techniques or standardized protocols for targeted exams where does is matched to indication/reason for exam; i.e. extremities or head); use of iterative reconstruction technique). Reviewed, dictated and finalized at location S. IMPRESSION: No acute fracture or subluxation. Moderate multilevel degenerative changes as All CT scans at this facility are performed using low dose modulation techniqu es as appropriate to perform exam including the following: automated exposure c ontrol; adjustment of the mA and/or kV according to patient size (this includes techniques or standardized protocols for targeted exams where does is matched to indication/reason for exam; i.e. extremities or head); use of iterative kraig nstruction technique).
[2024-12-20 19:13] VITALS: BP 166/73; PULSE 80; RESP 18; TEMP 36.4; O2SAT 99
--- NOTE | 2024-12-20 20:18 | ED.FALL ---
HPI - Fall General Chief Complaint: Fall Stated Complaint: Fall; Head injury on thinners Time Seen by Provider: 12/20/24 19:49 History of Present Illness HPI Narrative: 79-year-old female with history of atrial fibrillation on Xarelto presenting to the emergency department after mechanical slip and fall. Patient was washing dishes when she took a step backwards and fell backwards landing on her head. Did not lose consciousness. Was able to get up with some assistance and then walk at her baseline which is with her walker. Patient endorsed a mild headache prior to arrival but now resolved. Patient has no symptoms at this time. Family wanted her to get checked out given the fall on blood thinners. Patient has no complaints at this time. No hematoma formation or loss of consciousness. Did take her Xarelto today. Related Data Home Medications ?Medication ?Instructions ?Recorded ?Confirmed ?Last Taken ?Type albuterol sulfate 90 mcg/actuation 90 mcg inhalation PRN PRN 12/04/19 11/07/24 Unknown History aerosol inhaler (Ventolin HFA) Shortness Of Breath rosuvastatin 10 mg tablet 10 mg PO HS 12/04/19 11/07/24 Unknown History duloxetine 30 mg capsule,delayed 30 mg PO QAM 10/04/20 11/07/24 Unknown History release methotrexate sodium 2.5 mg tablet 2.5 mg PO WEEKLY 10/21/21 11/07/24 08/06/24 History leflunomide 20 mg tablet 20 mg PO DAILY 10/15/22 11/07/24 Unknown History potassium chloride 10 mEq 10 meq PO DAILY 11/03/22 11/07/24 Unknown History tablet,extended release acetaminophen 500 mg capsule 1,000 mg PO Q4-6H PRN pain 08/07/24 11/07/24 Unknown History azelastine 137 mcg (0.1 %) nasal 1 spray intranasal Q12H 08/07/24 11/07/24 Unknown History spray cyanocobalamin (vitamin B-12) 2,000 mcg PO DAILY 08/07/24 11/07/24 Unknown History 1,000 mcg tablet fluticasone 250 mcg-salmeterol 50 1 inh inhalation Q12H 08/07/24 11/07/24 Unknown History mcg/dose blistr powdr for inhalation levocetirizine 5 mg tablet (24HR 5 mg PO DAILY PRN allergy symptoms 08/07/24 11/07/24 Unknown History Allergy Relief) blood-glucose sensor (FreeStyle 11/07/24 11/07/24 Unknown History Dmitry 3 Sensor device) Allergies Allergy/AdvReac Type Severity Reaction Status Date / Time shellfish derived Allergy Severe HIVES/RASH Verified 11/07/24 13:24 shrimp Allergy Severe RASH/HIVES Verified 11/07/24 13:24 celecoxib Allergy Intermediate RASH/HIVES Verified 11/07/24 13:24 fish oil Allergy Intermediate RASH/HIVES Verified 11/07/24 13:24 metformin Allergy Unknown Chest Pain Verified 11/07/24 13:24 Review of Systems Review of Systems: As reviewed above in [facility] Past Medical History Medical History Chronic anticoagulation Restless legs syndrome (RLS) Low vitamin D level Diabetic retinopathy, nonproliferative, mild Compression fracture of L1 lumbar vertebra Chronic hypoxic respiratory failure, on home oxygen therapy Invasive ductal carcinoma of right breast in female (01/2024) ER/AZ positive HER2 equivocal stage I HLD (hyperlipidemia) TIA (transient ischemic attack) Carotid stenosis GERD (gastroesophageal reflux disease) Paroxysmal atrial fibrillation (~12/2020) Echocardiogram 12/2020: Normal left ventricular systolic function EF 65-70%, mildly increased left ventricular wall thickness, diastolic function abnormal, global longitudinal strain abnormal at -15%, left atrial chamber mildly enlarged, mild mitral valve regurgitation, mild tricuspid regurgitation Asthma-COPD overlap syndrome PFTs 06/03/2021: Moderately severe obstructive abnormality without significant improvement with bronchodilator. Diffusion capacity normal. Lung volumes normal. Adult BMI 30+ Hypothyroidism (acquired) Obstructive sleep apnea Intolerant to CPAP. Diverticulitis Colon polyps Vitiligo Cancer of left breast Diabetic peripheral neuropathy Insulin dependent type 2 diabetes mellitus Hemoglobin A1c 10.02 April 2020 Depression with anxiety Rheumatoid arthritis Seropositive Hypertension Degenerative joint disease of knee Osteopenia Surgical History Surgical History History of lumpectomy of right breast (04/2024) History of fusion of cervical spine History of cardiac catheterization Unremarkable per patient report. History of bilateral cataract extraction History of colonoscopy with polypectomy History of incision and drainage (05/2018) Right cheek abscess. History of hysterectomy History of appendectomy History of cholecystectomy History of thyroidectomy Due to goiter History of left mastectomy (~1992) Family History Family History Father Diabetes mellitus Hypertension Cerebrovascular accident Family history of malignant melanoma Mother Diabetes mellitus Hypertension Family history of lung cancer Sibling Family history of malignant melanoma Other Family history of cardiovascular disease Family history of malignant neoplasm Malignant neoplasm of prostate Social History Social History Social History: Surrogate decision maker: Smith Goldstein, . Code status: Full code. (however she would not want to be on long-term ventilation or have a feeding tube) Smoking packs per day: 3 Smoking cigarettes per day: 60.0 Years smoked: 60 Smoking pack-years: 180.00 Smoking status: Former smoker Tobacco type: cigarettes Second hand tobacco smoke exposure: Yes Additional smoking assessment comments: quit in 1998 Alcohol intake: never Substance use: never Substance use type: does not use Do You Feel Safe in your Home?: Yes Lack of Transportation: No Lack of Food: Never True Current Housing: I Have Housing Concerned About Future Housing: No Difficulty Paying Gas/Electric Bills: No Difficulty Paying for Meds: No Currently Unemployed: No Education: High School Diploma/GED Difficulty w/ Childcare or Family Care: No Living arrangements: with family Additional living arrangements comments: The patient lives in [place] with her . 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 Gender identity (if verbalized by the patient): Female Sexual Orientation (if Verbalized by the Patient): Straight or Heterosexual Spiritual care concerns: No Exam Narrative: GENERAL: [Well-appearing, well-nourished, and in no acute distress.] HEAD: [Normocephalic, atraumatic.] EYES: [PERRLA and EOMI.] ENT: Nares clear, no rhinorrhea or epistaxis. Mucous membranes moist. NECK: Supple. CHEST: [Clear to auscultation. No respiratory distress.] HEART: [Regular rate and rhythm]. No murmur heard. [Normal peripheral pulses.] ABDOMEN: [Soft, nondistended], [nontender], [No rigidity or guarding] EXTREMITIES: Normal range of motion. [No edema.] SKIN: Warm, dry, no rash. NEURO: [No focal deficits]. Alert and oriented [x3.] PSYCH: [Normal mood and affect.] Course Vital Signs Vital signs: Vital Signs Temperature 36.4 C 12/20/24 19:13 Pulse Rate 80 12/20/24 19:13 Respiratory Rate 18 12/20/24 19:13 Blood Pressure 166/73 H 12/20/24 19:13 Pulse Oximetry 99 12/20/24 19:13 Oxygen Delivery Room Air 12/20/24 19:13 Temperature 36.4 C 12/20/24 19:13 Pulse Rate 80 12/20/24 19:13 Respiratory Rate 18 12/20/24 19:13 Blood Pressure 166/73 H 12/20/24 19:13 Pulse Oximetry 99 12/20/24 19:13 Oxygen Delivery Room Air 12/20/24 19:13 MDM - Fall MDM Narrative Medical decision making narrative: 79-year-old female with history of atrial fibrillation on Xarelto presenting to the emergency department after mechanical slip and fall. Patient was washing dishes when she took a step backwards and fell backwards landing on her head. Did not lose consciousness. Was able to get up with some assistance and then walk at her baseline which is with her walker. Patient endorsed a mild headache prior to arrival but now resolved. Patient has no symptoms at this time. Family wanted her to get checked out given the fall on blood thinners. Patient has no complaints at this time. No hematoma formation or loss of consciousness. Did take her Xarelto today. Patient is hemodynamically stable with no neurological issues and no signs of visible trauma hematoma formation or lacerations. Given her age and risk factors CT of the head and cervical spine were obtained to rule out intracranial pathology or cervical injury. Patient does not have any pain at this time. Discussed with family potential for discharge home assuming unremarkable workup. Discharge Plan Discharge Clinical Impression: CHI (closed head injury) Patient Disposition: Home Condition: Stable Instructions: Antibiotic Form, Head Injury (ED), Contusion in Adults (ED) Additional Instructions: No injuries sustained from the fall today. Take Tylenol/ibuprofen for aches and pains. Follow-up with regular doctor as needed and return with any emergent concerns. Patient Language: Amharic Prescriptions: No Action albuterol sulfate [Ventolin HFA] 90 mcg/actuation HFA aerosol inhaler 90 mcg INHALATION PRN PRN (Reason: Shortness Of Breath) rosuvastatin 10 mg Tablet 10 mg PO HS methotrexate sodium 2.5 mg tablet 2.5 mg PO WEEKLY Rx Instructions: Take 10 pills once a week montelukast 10 mg tablet 10 mg PO DAILY Qty: 30 6RF (DME) FreeStyle Dmitry 3 Sensor Device See Rx Instructions .Route Rx Instructions: As directed leflunomide 20 mg tablet 20 mg PO DAILY potassium chloride 10 mEq tablet extended release 10 meq PO DAILY levothyroxine 88 mcg tablet See Rx Instructions .ROUTE .COMPLEX Qty: 90 2RF Dose Instruction: Take 1 tablet by mouth once daily Rx Instructions: Take 1 tablet by mouth 6 days a week, skip Sundays azelastine 137 mcg (0.1 %) spray,non-aerosol 1 spray INTRANASAL Q12H cyanocobalamin (vitamin B-12) 1,000 mcg tablet 2,000 mcg PO DAILY fluticasone propion-salmeterol 250-50 mcg/dose blister with device 1 inh INHALATION Q12H acetaminophen 500 mg capsule 1,000 mg PO Q4-6H PRN (Reason: pain) levocetirizine [24HR Allergy Relief] 5 mg tablet 5 mg PO DAILY PRN (Reason: allergy symptoms) duloxetine 30 mg capsule,delayed release(DR/EC) 30 mg PO QAM Xarelto 20 mg Tablet 20 mg PO DAILY@1700 Qty: 6 1RF duloxetine 60 mg capsule,delayed release(DR/EC) 60 mg PO HS Qty: 90 2RF clopidogrel [Plavix] 75 mg tablet 75 mg PO DAILY Qty: 30 2RF hydrochlorothiazide 25 mg tablet See Rx Instructions .ROUTE .COMPLEX Qty: 90 2RF Dose Instruction: TAKE 1 TABLET BY MOUTH IN THE MORNING Rx Instructions: TAKE 1 TABLET BY MOUTH IN THE MORNING tirzepatide 7.5 mg/0.5 mL pen injector 7.5 mg subcut WEEKLY 90 Days Qty: 6.5 0RF Rx Instructions: takes on Wednesday ondansetron 4 mg tablet,disintegrating 4 mg PO Q8H PRN (Reason: nausea and vomiting) Qty: 10 1RF Follow-up/Referrals: David Pruitt MD [Primary Care Provider, Family Practice] Time of Disposition: 22:06
--- OUTSIDE RECORDS SUMMARY | 2024-12-20 20:33 | XMS_ITS | Encounter Summary ---
Author Organization [facility] Healthcare Address [address] [place] [address] Care Team Providers Care Stock Raiser Name Role Phone David Pruitt MD Primary Care Provider Aram Oro MD Unavailable [phone] David Fried MD Unavailable [phone] Chema Foreman MD Unavailable [phone] Lobo Driscoll DO Unavailable [phone] Encounter Details Date Type Department Care Team (Late st Contact Info) Description 01/16/2024 Orders Only [facility] Health Information Management [address] [place] [address] Scanning, Provider Social History Tobacco Use Types Packs/Day Years Used Date Smoking Tobacco: Former Smokeless Tobacco: Never Alcohol Use Standard Drinks/Week Comments No 0 (1 standard drink = 0.6 oz pur e alcohol) Comments Unknown Sex and Gender Information Value Date Recorded Sex Assigned at Not on file 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 Gender Identity Female 12/31/2023 2:40 PM [...] documented as of this encounter Care Teams Stock Raiser Relationship Specialty Start Date End Date David Pruitt MD [address] [place], [place] [id number] PCP - General Family Medicine 06/30/17 Aram Oro MD [facility] [address] [place], [place] [phone] Surgeon Surgery 02/29/24 David Fried MD [facility]8 [facility] [address] [place], [place] [id number] Radiation Oncologist Radiation Oncology 02/29/24 Chema Foreman MD [facility]8 [facility] [address] [place], [place] [address] Consulting Physician Interventional Cardiology 03/17/24 Lobo Driscoll DO [address] [facility] [address] [place], [place] [id number] Medical Oncologist/Senior Clinical Data Coordinator Hematology and Oncology 09/06/24 documented as of this encounter
--- OUTSIDE RECORDS SUMMARY | 2024-12-20 20:33 | XMS_ITS | Encounter Summary ---
Author Organization [facility] Healthcare Address [address] [place] [address] Care Team Providers Care Back Shoe Operator Name Role Phone Jeronimo Duke MD Primary Care Provider Forrest Wheat DO Primary Care Provider + Jeronimo Duke MD Primary Care Provider [phone] Forrest Wheat DO Primary Care Provider + Jeronimo Duke MD Primary Care Provider [phone] David Pruitt MD Primary Care Provider Aram Oro MD Unavailable [phone] David Fried MD Unavailable [phone] Chema Foreman MD Unavailable [phone] Lobo Drisocll DO Unavailable Encounter Details Date Type Department Care Team (Late st Contact Info) Description 09/05/2014 Orders Only [facility] Health Information Management [address] [place] [address] Scanning, Provider Social History Tobacco Use Types Packs/Day Years Used Date Smoking Tobacco: Former Alcohol Use Standard Drinks/Week Comments No 0 (1 standard drink = 0.6 oz pur e alcohol) Comments Unknown Sex and Gender Information Value Date Recorded Sex Assigned at Not on file 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 Gender Identity Female 12/31/2023 2:40 PM CDT [...] documented as of this encounter Care Teams Back Shoe Operator Relationship Specialty Start Date End Date Jeronimo Duke MD [address] [place] [address] PCP - General 05/12/13 08/30/16 Forrest Wheat DO [address] [place] [address] PCP - General 08/31/16 08/31/16 [place] [address] [place] [address] PCP - General 09/01/16 09/06/16 Forrest Wheat DO [address] [place] [address] PCP - General 09/07/16 11/10/16 Jeronimo Duke MD [address] [place] [address] PCP - General 11/11/16 06/29/17 David Pruitt MD [address] [place] [address] PCP - General Family Medicine 06/30/17 Aram Oro MD [address] [place] [address] [address] [place], [place] [phone] Surgeon Surgery 02/29/24 David Fried MD [address] [place] [address] Radiation Oncologist Radiation Oncology 02/29/24 Chema Foreman MD [address] [place] [id number] Consulting Physician Interventional Cardiology 03/17/24 Lobo Driscoll DO [address] [place] [id number] Medical Oncologist/Hematologis t Hematology and Oncology 09/06/24 documented as of this encounter
--- OUTSIDE RECORDS SUMMARY | 2024-12-20 20:34 | XMS_ITS | Clinical Summary ---
Author Organization [facility] Address [address] [place] [address] Care Team Providers Care Firearms Assembly Supervisor Name Role Phone Unavailable Primary Care Provider Unavailabl e Source Comments [facility],non-owned Affiliates and Associated Physician Practices is amultiple site organization consisting of ambulatory clinics and hospital sitesin [place], [place], [place] and [place]. This disclosure is being madepursuant to the Care Everywhere program and may not contain all information available regarding this patient. Last updated 17.[facility] Performance Lab Social History Tobacco Use Types Packs/Day Years Used Date Smoking Tobacco: Never Assessed Comments Unknown Sex and Gender Information Value Date Recorded Sex Assigned at Not on file Legal Sex Female 6:29 AM FRAME RUNNER Gender Identity Not on file Sexual Orientation [...] age to complete this topic Insurance MEDICARE [facility] SELF PAY NO INSURANCE Member Subscriber Plan / Payer (Ef fective for All Dates) Name:Memo Goldstein Member ID:Not on file Relation to Subscriber:Not on file Name:MEMO GOLDSTEIN Subscriber ID:Not on file (Home) Address: [address] [place] [address] Payer ID:Not on file Group ID:Not on file Type:Self Pay Address: [place], [place]
--- OUTSIDE RECORDS SUMMARY | 2024-12-20 20:34 | XMS_ITS | Encounter Summary ---
Author Organization [facility] Address [facility] [place] [address] Care Team Providers Care Calibration Technician Name Role Phone David Pruitt MD Primary Care Provider [phone] Encounter Details Date Type Department Care Team (Latest Contact Info) Description 12/19/2024 Travel Social History Tobacco Use Types Packs/Day Years [...] on filedocumented in this encounter Care Teams Calibration Technician Relationship Specialty Start Date End Date David Pruitt MD [address] [facility] [address] [place] [address] PCP - General FAMILY PRACTICE 10/09/21 documented as of this encounter
--- OUTSIDE RECORDS SUMMARY | 2024-12-20 20:34 | XMS_ITS ---
Author Organization [facility] Address [address] [place] [address] Care Team Providers Care Agricultural Lender Name Role Phone David Pruitt MD Primary Care Provider Aram Oro MD Unavailable [phone] David Fried MD Unavailable [phone] Chema Foreman MD Unavailable [phone] Lobo Driscoll DO Unavailable [phone] Active Problems Problem Noted Date Diagnosed Date [...] from 03/11/2024:Stage IA(cT1c, cN0, cM0, G1, ER+, NC+, HER2: Equivocal) - Signed by David Fried MD on 03/11/2024 Pathologic stage from 07/19/2024: pT1c, cN0, cM0, G2, ER+, NC+, HER2- - Signed by David Fried MD [...] 01/27/2018 Assessment & Plan (01/27/2018 2:58 PM ASSISTANT BUSINESS MANAGER): Reviewed chart and discussed blood work with patient. She denies any GI sx and says EGD 2 yrs ago and [id number] this year. Discussed posssibility of gi blood loss and offered EGD/Colonoscopy. At this time she declines and promises to follow blood counts with PMD promising to call if changes her mind Coronary artery disease invo lving [place] coronary artery of [place] heart without angina pectoris 01/26/2018 Mixed hyperlipidemia [...]
--- OUTSIDE RECORDS SUMMARY | 2024-12-20 20:34 | XMS_ITS | Clinical Summary ---
Author Organization [facility] Address [address] [place] [address] Care Team Providers Care Child Life Assistant Name Role Phone David Pruitt MD Primary Care Provider [phone] Active Problems Problem Noted Date Diagnosed Date Bilateral hip bursitis 09/08/2019 Encounters Date Type Department Care Team Description 12/19/2024 3:05 PM CDT Hospital Encounter [facility] [address] [place] [address] Ivonne Mcguire MD Arrived 12/19/2024 Orders Only [facility] [address] [place] [address] Ivonne Mcguire MD 12/19/2024 Travel from Last 3 Months Social History [...] 3:05 PM CDT Height 165.1 cm (5' 5) 07/09/2016 3:05 PM CDT Body Mass Index 30.95 07/09/2016 3:05 PM CDT Plan of Treatment Health Maintenance Due Date Last Done Comments Annual Medicare Wellness Visit 09/30/2008 Dexa Scan (General) 09/30/2008 RSV Immunization or 60+ Years (1 - 1-dose 75+ series) 09/30/2018 COVID-19 Vaccine (3 - season) 2024 01/01/2021, 05/03/2020 Influenza Adult (#1) 2024 01/09/2020, 04/01/2019, 02/01/2019, Additional history exists DTaP, Tdap and Td Vaccines (2 - Td or Tdap) 05/08/2025 05/09/2015 Zoster Vaccines Completed 03/09/2019, 12/13/2018 Pneumococcal Vaccine: 50+ Years Completed 02/05/2021, 12/12/2015 Hepatitis A Vaccines Aged Out No long er eligible based on patient's age to complete this topic Meningococcal B Vaccine Aged Out No l onger eligible based on patient's age to complete this topic Meningococcal Vaccine Aged Out No parish z[place] eligible based on patient's age to complete this topic RSV Immunizations Under 20 Months Aged Out No longer eligible based on patient's age to complete this topic Procedures Procedure Name Priority Date/Time Associated Diagnosis Comments HEPATIC FUNCTION PANEL Routine 12/19/2024 3:49 PM CDT Encounter for therapeutic drug monitoring BASIC METABOLIC PANEL Routine 12/19/2024 3:49 PM CDT Encounter for therapeutic drug monitoring CBC W/DIFF AUTOMATED Routine 12/19/2024 3:49 PM CDT Encounter for therapeutic drug monitoring from Last 3 Months Results * (ABNORMAL) BASIC METABOLIC PANEL (12/19/2024 3:49 PM CDT) GLUCOSE 293(H) 70 - 99 MG/DL 12/19/2024 4:15 PM CDT [facility] BUN 9 7 - 18 MG/DL 12/19/2024 4:15 PM CDT [facility] CREATININE S/P/B 0.60 0.55 - 1.02 MG/DL 12/19/2024 4:15 PM CDT [facility] SODIUM S/P/B 130(L) 136 - 145 MMOL/L 12/19/2024 4:15 PM CDT [facility] POTASSIUM S/P/B 3.4(L) 3.5 - 5.1 MMOL/L 12/19/2024 4:15 PM CDT [facility] CHLORIDE S/P/B 92(L) 100 - 108 MMOL/L 12/19/2024 4:15 PM CDT [facility] CO2 28.6 21 - 32 MMOL/L 12/19/2024 4:15 PM CDT [facility] CALCIUM S/P/B 8.7 8.5 - 10.1 MG/DL 12/19/2024 4:15 PM CDT [facility] ANION GAP 9.4 5 - 15 MMOL/L 12/19/2024 4:15 PM T [facility] BUN CREATININE RATIO 15.0 6 - 26 12/19/2024 4:15 PM T [facility] GFR ESTIMATE >90 >90 ML/MIN/1.7 3 M2 12/19/2024 4:15 PM CDT [facility] Comment: NOTE: eGFR is not calculated for patients <18 years of age. This is an estimated GFR calculation using the new CKD EPI creatinine equation without race and so does not require a correction factor for race. This estimated GFR should not be used for calculating drug doses. 12/19/2024 3:49 PM CDT Ivonne Mcguire MD LABORATORY Final Result [facility] [address] [place] [address], [place] [phone] * (ABNORMAL) HEPATIC FUNCTION PANEL (12/19/2024 3:49 PM CDT) Pathologist [facility] TOTAL PROTEIN S/P/B 7.3 6.4 - 8.2 G/DL 12/19/2024 4:15 PM CDT [facility] ALBUMIN S/P/B 3.5 3.4 - 5.0 G/DL 12/19/2024 4:15 PM CDT [facility] BILIRUBIN TOTAL S/P/B 0.7 0.2 - 1.2 MG/DL 12/19/2024 4:15 PM CDT [facility] BILIRUBIN DIRECT S/P/B 0.2 0.0 - 0.20 MG/DL 12/19/2024 4:15 PM CDT [facility] BILIRUBIN INDIRECT S/P/B 0.5 0.0 - 0.9 MG/DL 12/19/2024 4:15 PM CDT [facility] ALKALINE PHOSPHATASE S/P/B 135 50 - 136 U/L 12/19/2024 4:15 PM CDT [facility] AST 19 15 - 37 U/L 12/19/2024 4:15 PM CDT [facility] ALT 17 14 - 55 U/L 12/19/2024 4:15 PM CDT [facility] A/G RATIO 0.9(L) 1.0 - 2.0 RATIO 12/19/2024 4:15 PM CDT [facility] 12/19/2024 3:49 PM CDT us Ivonne Mcguire MD LABORATORY Final Result [facility] [address] [place] [address], [place] [phone] * (ABNORMAL) CBC W/DIFF AUTOMATED (12/19/2024 3:49 PM CDT) [facility] WBC 7.93 4.4 - 11.0 x10'3/uL 12/19/2024 4:00 PM CDT [facility] RBC 4.07(L) 4.50 - 5.10 x10'6/uL 12/19/2024 4:00 PM T [facility] HGB 10.3(L) 12.3 - 15.3 G/DL 12/19/2024 4:00 PM T [facility] HCT 32.2(L) 35.9 - 44.6 % 12/19/2024 4:00 PM T [facility] MCV 79.1(L) 80.0 - 96.0 FL 12/19/2024 4:00 PM T [facility] MCH 25.3 25.3 - 30.9 PG 12/19/2024 4:00 PM T [facility] MCHC 32.0 31.0 - 34.1 G/DL 12/19/2024 4:00 PM T [facility] RDW 20.6(H) 12.4 - 15.1 % 12/19/2024 4:00 PM T [facility] PLT 274 151 - 353 x10'3/uL 12/19/2024 4:00 PM T [facility] MPV 9.6 9.6 - 12.0 FL 12/19/2024 4:00 PM T [facility] RBC MORPHOLOGY NORMAL 12/19/2024 4:00 PM T [facility] PLT MORPH. NORMAL 12/19/2024 4:00 PM T [facility] WBC MORPHOLOGY NORMAL 12/19/2024 4:00 PM T [facility] LYMPHOCYTES % 13.6(L) 15.8 - 45.0 % 12/19/2024 4:00 PM T [facility] NEUTROPHILS % 78.4(H) 42.1 - 71.9 % 12/19/2024 4:00 PM CDT [facility] MONOCYTES % 7.6 5.7 - 12.5 % 12/19/2024 4:00 PM CDT [facility] EOSINOPHILS 0.0 0.0 - 5.6 % 12/19/2024 4:00 PM CDT [facility] BASOPHILS 0.1 0.0 - 1.3 % 12/19/2024 4:00 PM CDT [facility] ABS. NEUTROPHILS 6.22(H) 1.40 - 6.00 x10'3/uL 12/19/2024 4:00 PM CDT [facility] IMMATURE GRANS % 0.3 0.0 - 0.5 % 12/19/2024 4:00 PM CDT [facility] ABS. LYMPHOCYTES 1.08 0.80 - 4.70 x10'3/uL 12/19/2024 4:00 PM CDT [facility] 12/19/2024 3:49 PM CDT us Ivonne Mcguire MD LABORATORY Final Result Performing Organization Address City/State/[facility] de Phone Number [facility] [address] [place] [address], from Last [address] [place] [address] [employer] MEDICARE AAR Care Teams Child Life Assistant Relationship Specialty Start Date End Date David Pruitt MD [address] [place] [address] PCP - General FAMILY PRACTICE 10/09/21
--- OUTSIDE RECORDS SUMMARY | 2024-12-20 20:34 | XMS_ITS | Encounter Summary ---
Author Organization [facility] Address [address] [place] [address] Care Team Providers Care Piercing Specialist Name Role Phone David Pruitt MD Primary Care Provider [phone] Encounter Details Date Type Department Care Team (Late st Contact Info) Description 12/19/2024 Orders Only [facility] [address] [place] [address] Ivonne Mcguire MD [address] [place] [address] Social History Tobacco Use Types Packs/Day Years Used Date Smoking Tobacco: Never Assessed Comments Unknown Sex and Gender Information Value Date Recorded Sex Assigned at Not on file Legal Sex Female 5:43 PM CDT Gender Identity Not on file Sexual Orientation Not on file documented as of this encounter Plan of Treatment Not on file documented as of this encounter Results * (ABNORMAL) HEPATIC FUNCTION PANEL (12/19/2024 3:49 PM CDT) TOTAL PROTEIN S/P/B 7.3 6.4 - 8.2 G/DL 12/19/2024 4:15 PM CDT [facility] ALBUMIN S/P/B 3.5 3.4 - 5.0 G/DL 12/19/2024 4:15 PM CDT [facility] BILIRUBIN TOTAL S/P/B 0.7 0.2 - 1.2 MG/DL 12/19/2024 4:15 PM CDT [facility] BILIRUBIN DIRECT S/P/B 0.2 0.0 - 0.20 MG/DL 12/19/2024 4:15 PM CDT [facility] BILIRUBIN INDIRECT S/P/B 0.5 0.0 - 0.9 MG/DL 12/19/2024 4:15 PM CDT [facility] ALKALINE PHOSPHATASE S/P/B 135 50 - 136 U/L 12/19/2024 4:15 PM CDT [facility] AST 19 15 - 37 U/L 12/19/2024 4:15 PM CDT [facility] ALT 17 14 - 55 U/L 12/19/2024 4:15 PM CDT [facility] A/G RATIO 0.9(L) 1.0 - 2.0 RATIO 12/19/2024 4:15 PM CDT [facility] 12/19/2024 3:49 PM CDT Ivonne Mcguire MD LABORATORY Final Result [facility] [address] [place] [address], [place] [phone] * (ABNORMAL) BASIC METABOLIC PANEL (12/19/2024 3:49 PM CDT) [facility] GLUCOSE 293(H) 70 - 99 MG/DL 12/19/2024 4:15 PM CDT [facility] BUN 9 7 - 18 MG/DL 12/19/2024 4:15 PM CDT [facility] CREATININE S/P/B 0.60 0.55 - 1.02 MG/DL 12/19/2024 4:15 PM CDT [facility] SODIUM S/P/B 130(L) 136 - 145 MMOL/L 12/19/2024 4:15 PM CDT [facility] POTASSIUM S/P/B 3.4(L) 3.5 - 5.1 MMOL/L 12/19/2024 4:15 PM CDT [facility] CHLORIDE S/P/B 92(L) 100 - 108 MMOL/L 12/19/2024 4:15 PM CDT [facility] CO2 28.6 21 - 32 MMOL/L 12/19/2024 4:15 PM CDT [facility] CALCIUM S/P/B 8.7 8.5 - 10.1 MG/DL 12/19/2024 4:15 PM CDT [facility] ANION GAP 9.4 5 - 15 MMOL/L 12/19/2024 4:15 PM CDT [facility] BUN CREATININE RATIO 15.0 6 - 26 12/19/2024 4:15 PM CDT [facility] GFR ESTIMATE >90 >90 ML/MIN/1.7 3 M2 12/19/2024 4:15 PM CDT [facility] Comment: NOTE: eGFR is not calculated for patients <18 years of age. This is an estimated GFR calculation using the new CKD EPI creatinine equation without race and so does not require a correction factor for race. This estimated GFR should not be used for calculating drug doses. 12/19/2024 3:49 PM CDT us Ivonne Mcguire MD LABORATORY Final Result [facility] [address] [place] [address], [place] [phone] * (ABNORMAL) CBC W/DIFF AUTOMATED (12/19/2024 3:49 PM CDT) WBC 7.93 4.4 - 11.0 x10'3/uL 12/19/2024 4:00 PM T [facility] RBC 4.07(L) 4.50 - 5.10 x10'6/uL 12/19/2024 4:00 PM T [facility] HGB 10.3(L) 12.3 - 15.3 G/DL 12/19/2024 4:00 PM T [facility] HCT 32.2(L) 35.9 - 44.6 % 12/19/2024 4:00 PM T [facility] MCV 79.1(L) 80.0 - 96.0 FL 12/19/2024 4:00 PM T [facility] MCH 25.3 25.3 - 30.9 PG 12/19/2024 4:00 PM T [facility] MCHC 32.0 31.0 - 34.1 G/DL 12/19/2024 4:00 PM [facility] RDW 20.6(H) 12.4 - 15.1 % 12/19/2024 4:00 PM [facility] PLT 274 151 - 353 x10'3/uL 12/19/2024 4:00 PM T [facility] MPV 9.6 9.6 - 12.0 FL 12/19/2024 4:00 PM T [facility] RBC MORPHOLOGY NORMAL 12/19/2024 4:00 PM T [facility] PLT MORPH. NORMAL 12/19/2024 4:00 PM T [facility] WBC MORPHOLOGY NORMAL 12/19/2024 4:00 PM T [facility] LYMPHOCYTES % 13.6(L) 15.8 - 45.0 % 12/19/2024 4:00 PM T [facility] NEUTROPHILS % 78.4(H) 42.1 - 71.9 % 12/19/2024 4:00 PM CDT [facility] MONOCYTES % 7.6 5.7 - 12.5 % 12/19/2024 4:00 PM CDT [facility] EOSINOPHILS 0.0 0.0 - 5.6 % 12/19/2024 4:00 PM CDT [facility] BASOPHILS 0.1 0.0 - 1.3 % 12/19/2024 4:00 PM CDT [facility] ABS. NEUTROPHILS 6.22(H) 1.40 - 6.00 x10'3/uL 12/19/2024 4:00 PM CDT [facility] IMMATURE GRANS % 0.3 0.0 - 0.5 % 12/19/2024 4:00 PM CDT [facility] ABS. LYMPHOCYTES 1.08 0.80 - 4.70 x10'3/uL 12/19/2024 4:00 PM CDT [facility] 12/19/2024 3:49 PM CDT us Ivonne Mcguire MD LABORATORY Final Result Performing Organization Address City/State/[facility] Co de Phone Number [facility] [address] [place] [address], documented in this encounter Visit Diagnoses Diagnosis Encounter for therapeutic drug monitoring- Primary documented in this encounter Care Teams Piercing Specialist Relationship Specialty Start Date End Date David Pruitt MD [address] [place] [address] PCP - General FAMILY PRACTICE 10/09/21 documented as of this encounter
--- OUTSIDE RECORDS SUMMARY | 2024-12-20 20:35 | XMS_ITS | Patient Health Record ---
Author Organization [facility] ([address]) Address [address] [place] [address] Care Team Providers Care Physiognomist Name Role Phone David Pruitt MD Primary Care Provider Unavaila Herbert Wong Unavailable [phone] Irineo Rivas Unavailable Unavailable Sean Brown Unavailable [phone] Hailey Sotelo Unavailable [phone] Johana Martinez Unavailable [phone] Nahed Avelar Unavailable [phone] Allergies Allergen (clinical drug ingredient) Drug/Non Drug Allergy documented on EMR Reaction Allergy Type Onset Date Status predniSONE worsening hyperglycemia/hyp ertension Drug Allergy Active metformin metFORMIN other reaction Drug Allergy Ac tive Reason For Referral No Information Medications Medication SIG (Take, Route, Frequency, Duration) Notes Start Date End Date Status OMEPRAZOLE 20 mg 1 tab(s) orally once a day; Duration: 14 day(s) Not-Taking METOPROLOL 25 mg 1 tab(s) orally once a day; Duration: 30 day(s) Not-Taking LEVOTHYROXINE 125 mcg (0.125 mg) 1 tab(s) orally once a day; Duration: 30 day(s) Not-Taking DULOXETINE 60 mg 1 cap(s) orally once a day; Duration: 30 day(s) Not-Taking NYSTATIN 248333 units/mL 5 mL orally, sw jennifer & swallow tid Not-Taking FOLIC ACID 1 mg 1 tab(s) orally once a day Not-Taking POTASSIUM CHLORIDE 10 mEq 1 tab(s) orally 2 times a day; Duration: 30 day(s) Not-Taking MOUNJARO 5 mg/0.5 mL as directed subcutaneously once a week Not-Taking CARTIA XT 180 mg/24 hours 1 cap(s) orally once a day; Duration: 30 day(s) Not-Taking TRIPLE ANTIBIOTIC 400 units-3.5 mg-5000 units/g 1 august applied topically bid; Duration: 7 day(s) Not-Taking Valtrex 1 GM 1 tab(s) orally 2 times a day Not-Taking METOPROLOL SUCCINATE ER 25 mg 1 tab(s) orally once a day Not-Taking ATORVASTATIN 40 mg 1 tab(s) orally once a day Not-Taking PREDNISONE 10 mg 1.5 tab(s) orally once a day Not-Taking HYDROCHLOROTHIAZIDE 25 mg ; Duration: 90 Not-Taking PIOGLITAZONE 15 mg 1 tab(s) orally once a day Not-Taking Nasacort Allergy 24HR DIRECTED *Please re view and pick correct strength-formul ation from [employer] options. If intended option is not shown, discontinue and re-order from Quick Search* Not-Taking LANTUS 100 units/mL 0 subcutaneously Not-Taking [...] by mouth twice daily; Duration: 30 Not-Taking AMLODIPINE 5 mg 1 tab(s) orally once a day Not-Taking CYMBALTA 30 mg 1 cap(s) orally 2 times a day Not-Taking DOXYCYCLINE monohydrate 100 mg 1 cap(s) orally 2 times a day Not-Taking BYSTOLIC 10 mg ; Duration: 90 Not-Taking TOUJEO MAX SOLOSTAR 300 units/mL INJECT 80 UNITS SUBCUTANEOUSLY ONCE DAILY; Duration: 90 Not-Taking VENTOLIN HFA 90 mcg/inh INHALE 2 PUFFS B Y MOUTH EVERY 4 TO 6 HOURS NEEDED AND PER THE ASTHMA ACTION PLAN 17; Duration: 17 Not-Taking FLUTICASONE-SALMETEROL 113 mcg-14 mcg/inh 1 INH inhaled 2 times a day; Duration: 30 day(s) Not-Taking MONTELUKAST 10 mg 1 tab(s) orally once a day; Duration: 30 day(s) Not-Taking HIBICLENS 4% 1 august applied topically once; Duration: 1 day(s) Not-Taking PREDNISONE 20 mg 2 tab(s) orally once a day; Duration: 5 day(s) 0 Not-Taking ROSUVASTATIN 10 mg 1 tab(s) orally once a day; Duration: 30 day(s) Not-Taking HUMALOG KWIKPEN 100 units/mL ; Duration: 18 Not-Taking XARELTO 10 mg 1 tab(s) orally once a day Not-Taking LEVOTHYROXINE 150 mcg (0.15 mg) 1 tab(s) orally once a day Not-Taking METHOTREXATE 2.5 mg as directed orally once a week; Duration: 30 Not-Taking OMEPRAZOLE 20 mg 1 cap(s) orally once a day Not-Taking ASPIRIN 81 mg 1 tab(s) chewed once a day Not-Taking MULTIVITAMIN 1 po once a day N ot-Taking SINGULAIR 10 mg 1 tab(s) orally once a day Not-Taking FLUOXETINE 20 mg 1 cap(s) orally once a day Not-Taking DULOXETINE 60 mg 1 cap(s) orally once a day Not-Taking CALTRATE 600 + D 600 mg-800 intl units 1 tab(s) orally 2 times a day Not-Taking amLODIPine [...] for e-prescription and drug interaction check* Not-Taking Fasenra 30 MG/ML 30 MG SUBCUTANEOUSLY EVERY 8 WEEKS *Please review and pick correct strength-formul ation from [employer] options. If intended option is not shown, discontinue and re-order from Quick Search* Active MUPIROCIN 2% 1 august applied topically 2 times a day; Duration: 7 days Not-Taking Bystolic 10 MG 1 tab(s) orally once a day Active SYMBICORT 160 mcg-4.5 mcg/inh Inhale 2 puffs by mouth twice daily; Duration: 30 Not-Taking hydroCHLOROthiazide 25 MG 1 tab(s) orally once a day Active HumaLOG 100 UNIT/ML 0 subcutaneously Not-Taking Losartan Potassium 50 MG 1 tab(s) orally once a day Active Omeprazole 20 MG 1 cap(s) orally once a day Not-Taking CETIRIZINE 10 mg 1 tab(s) orally once a day Not-Taking VALTREX 1 g 1 tab(s) orally 2 times a day Not-Taking ATORVASTATIN 40 mg 1 tab(s) orally once a day Not-Taking XOLAIR 150 mg ; Duration: 28 N ot-Taking VITAMIN D3 2000 intl units as directed orally once a day; Duration: 30 day(s) Not-Taking TRADJENTA 5 mg 1 tab(s) orally once a day Not-Taking NASACORT as directed Not-Taki ng AZELASTINE HYDROCHLORIDE NASAL 137 mcg/inh 2 spray(s) intranasally BID, PRN; Duration: 30 day(s) Not-Taking METHOTREXATE 2.5 mg 7 tab(s) orally once a week 1 Not-Taking ROSUVASTATIN 10 mg 1 tab(s) orally once a day; Duration: 30 day(s) 1 Not-Taking TOUJEO MAX SOLOSTAR 300 units/mL INJECT 100 UNITS SUBCUTANEOUSLY ONCE DAILY DIRECTED; Duration: 30 Not-Taking [id number] - 1 AUGUST APPLIED TOPICALLY 2 TIMES A DAY; Duration: 30 DAY(S) *Please review for potential replacement for e-prescription and drug interaction check* Not-Taking SPIRIVA RESPIMAT 1.25 mcg/inh 2 puff(s) inhaled once a day Not-Taking OMEPRAZOLE 40 mg 1 cap(s) orally once a day; Duration: 30 day(s) Not-Taking PREDNISONE 5 mg 10 tab(s) orally once a day Not-Taking ANTIOXIDANT FORMULA Antioxidant Multiple Vitamins and Minerals as directed orally; Duration: 30 day(s) Not-Taking Singulair 10 MG 1 tab(s) orally once a day Active Bactrim DS 800-160 MG 1 tab(s) orally 2 times a day; Duration: 10 day(s) Not-Taking Potassium Chloride ER 10 MEQ 1 tab(s) orally 2 times a day; Duration: 30 day(s) Active Alpha-Lipoic Acid 600 MG orally once a day Active Folic Acid 1 MG 1 tab(s) orally once a day Not-Taking Triple Antibiotic 3.5-400-5000 1 august applied topically bid; Duration: 7 day(s) Active Lantus 100 UNIT/ML 0 subcutaneously Not-Taking Metoprolol Succinate ER 25 MG 1 tab(s) orally once a day Active Multivitamin - 1 po once a day Not-Taking Toujeo Max SoloStar 300 UNIT/ML INJECT 100 UNITS SUBCUTANEOUSLY DAILY PER INSULIN PROTOCOL; Duration: 30 Active EpiPen 2-Makenzie 0.3 MG/0.3ML 0.3 mg intramuscularly once; Duration: 30 day(s) Not-Taking DULoxetine HCl 60 MG 1 cap(s) orally once a day Active XIIDRA 5% INSTILL 1 DROP INTO EACH EYE TWICE DAILY; Duration: 30 Not-Taking Atorvastatin Calcium 40 MG 1 tab(s) orally once a day Not-Taking Cymbalta 30 MG 1 cap(s) orally 2 times a day Active TRELEGY ELLIPTA 200 mcg-62.5 mcg-25 mcg/inh 1 puff(s) inhaled once a day; Duration: 90 days Not-Taking Nystatin 788065 UNIT/ML 5 mL orally, swi sh & swallow tid Not-Taking Levothyroxine Sodium 150 MCG 1 tab(s) orally once a day Active Hibiclens 4% 1 AUGUST APPLIED TOPICALLY ONCE; Duration: 1 DAY(S) *Please review and pick correct strength-formul ation from [employer] options. If intended option is not shown, discontinue and re-order from Quick Search* Not-Taking Nystatin 963143 UNIT/ML 4 mL orally 4 ti mes a day Active Pioglitazone HCl 15 MG 1 tab(s) orally once a day Not-Taking traMADol HCl 50 MG 1 tab(s) orally every 4 hours Not-Taking Mounjaro 5 MG/0.5 ML DIRECTED SUBCUTANEOUSLY ONCE A WEEK *Please review and pick correct strength-formul ation from [employer] options. If intended option is not shown, discontinue and re-order from Quick Search* Active Caltrate 600+D Plus Minerals 600-800 MG-UNIT 1 tab(s) orally 2 times a day Not-Taking predniSONE 10 mg 1.5 tab(s) orally once a day Not-Taking hydroCHLOROthiazide 25 MG ; Duration: 90 Not-Taking amLODIPine Besylate 5 MG 1 tab(s) orally once a day Not-Taking PREDNISONE 5 mg 10 tab(s) orally once a day Active Cartia XT 180 MG 1 cap(s) orally once a day; Duration: 30 day(s) Active Claritin 10 MG 1 tab(s) orally once a day Not-Taking Fluticasone-Salmeterol 113 MCG-14 MCG/INH 1 INH INHALED 2 TIMES A DAY; Duration: 30 DAY(S) *Please review and pick correct strength-formul ation from [employer] options. If intended option is not shown, discontinue and re-order from Quick Search* Active ONE DAILY MULTI-ESSENTIAL MULTIPLE VITAMINS 1 TAB(S) ORALLY ONCE A DAY *Please review for potential replacement for e-prescription and drug interaction check* Not-Taking Fluticasone-Salmeterol 250-50 MCG/ACT 1 puff Inhalation Twice a day; Duration: 30 days Active EPINEPHRINE TWO-PACK 0.3 MG 0.3 MG INTRAMUSCULARLY ONCE; Duration: 1 DOSE(S) *Please review for potential replacement for e-prescription and drug interaction check* Not-Taking predniSONE 5 mg 10 tab(s) orally once a day Not-Taking Spiriva HandiHaler 18 MCG 1 puff inhaled Qday Not-Taki ng BYSTOLIC 10 mg 1 tab(s) orally once a day Active Caltrate 600+D Plus Minerals 600-800 MG-UNIT 1 tab(s) orally 2 times a day Not-Taking FLUoxetine HCl 20 MG 1 cap(s) orally once a day Not-Taking PROAIR HFA 90 MCG/INH 2 PUFFS INHALED Q4-6 HOURS, PRN AND PER THE ASTHMA ACTION PLAN *Please review for potential replacement for e-prescription and drug interaction check* Not-Taking PREDNISONE 10 mg 1.5 tab(s) orally once a day Active HYDROCHLOROTHIAZIDE 25 mg 1 tab(s) orally once a day Active DULoxetine HCl 60 MG 1 cap(s) orally once a day Not-Taking AMLODIPINE 5 [...] once a day; Duration: 30 day(s) Not-Taking Trelegy Ellipta 200 MCG-62.5 MCG-25 MCG/INH 1 PUFF(S) INHALED ONCE A DAY; Duration: 90 DAYS *Please review and pick correct strength-formul ation from [employer] options. If intended option is not shown, discontinue and re-order from Quick Search* Not-Taking Spiriva Respimat 1.25 MCG/ACT 2 puff(s) inhaled once a day Not-Taking PROAIR HFA 90 mcg/inh 2 puff(s) inhaled Q4-6 hours, PRN and per the asthma action plan Active MONTELUKAST 10 mg 1 tab(s) orally once a day; Duration: 30 days Active EPIPEN 2-MAKENZIE 0.3 mg 0.3 mg intramuscularly once; Duration: 30 day(s) Active CETIRIZINE HYDROCHLORIDE 10 mg 1 tab(s) orally once a day Active Ipratropium Nickerson 0.06 % 1 spray Nasally Four times a day; Duration: 30 days As needed Active Lantus 100 UNIT/ML 0 subcutaneously Not-Taking Methotrexate 2.5 MG 7 TAB(S) ORALLY ONCE A WEEK *Please review and pick correct strength-formul ation from [employer] options. If intended option is not shown, discontinue and re-order from Quick Search* 1 Not-Taking FLUTICASONE-SALMETEROL 113 mcg-14 mcg/inh 1 INH inhaled 2 times a day; Duration: 30 days Active MULTIVITAMIN 1 po once a day N ot-Taking FASENRA 30 mg/mL 30 mg subcutaneously every 8 weeks Active BACTRIM DS 800 mg-160 mg 1 tab(s) orally 2 times a day; Duration: 10 day(s) Not-Taking AEROCHAMBER MDI SPACER - MOUTHPIECE (ADULT) N/A As directed PO Per asthma action plan Active SPIRIVA 18 mcg 1 cap(s) inhaled once a day Not-Taking Omeprazole 40 MG 1 cap(s) orally once a day; Duration: 30 day(s) Not-Taking Fluticasone-Salmeterol 113 MCG-14 MCG/INH 1 INH INHALED 2 TIMES A DAY; Duration: 30 DAY(S) *Please review and pick correct strength-formul ation from [employer] options. If intended option is not shown, discontinue and re-order from Quick Search* Not-Taking Antioxidant Formula - as directed orally ; Duration: 30 day(s) Not-Taking Montelukast Sodium 10 MG 1 tab(s) orally once a day; Duration: 30 day(s) Not-Taking Azelastine HCl 137 MCG/SPRAY 2 spray(s) intranasally BID, PRN; Duration: 30 day(s) Not-Taking AIRDUO RESPICLICK 232 MCG-14 MCG/INH 1 INH INHALED 2 TIMES A DAY; Duration: 30 DAY(S) *Please review for potential replacement for e-prescription and drug interaction check* Not-Taking HUMALOG KWIKPEN (CONCENTRATED) 200 UNITS/ML INJECT UP TO 56 UNITS SUBCUTANEOUSLY THREE TIMES DAILY WITH MEALS; Duration: 14 *Please review for potential replacement for e-prescription and drug interaction check* Not-Taking FLUOXETINE 20 mg 1 cap(s) orally once a day Not-Taking Xiidra 5 % INSTILL 1 DROP INTO EACH EYE TWICE DAILY; Duration: 30 Not-Taking TRAMADOL 50 mg 1 tab(s) orally every 4 hours Not-Taking Omeprazole Magnesium 20 MG 1 tab(s) orally once a day; Duration: 14 day(s) Not-Taking DULOXETINE 60 mg 1 cap(s) orally once a day Not-Taking Metoprolol Succinate ER 25 MG 1 tab(s) orally once a day; Duration: 30 day(s) Not-Taking CYMBALTA 30 mg 1 cap(s) orally 2 times a day Not-Taking Levothyroxine Sodium 125 MCG 1 tab(s) orally once a day; Duration: 30 day(s) Not-Taking OMEPRAZOLE 20 mg 1 cap(s) orally once a day Not-Taking Toujeo Max SoloStar 300 UNIT/ML INJECT 80 UNITS SUBCUTANEOUSLY ONCE DAILY; Duration: 90 Not-Taking CLARITIN 24 HOUR ALLERGY 10 mg 1 tab(s) orally once a day Not-Taking LEVOTHYROXINE 150 mcg (0.15 mg) 1 tab(s) orally once a day Not-Taking DULoxetine HCl 60 MG 1 cap(s) orally once a day; Duration: 30 day(s) Not-Taking CALTRATE 600 + D 600 mg-800 intl units 1 tab(s) orally 2 times a day Not-Taking Rosuvastatin Calcium 10 MG 1 tab(s) orally once a day; Duration: 30 day(s) Not-Taking LANTUS 100 units/mL 0 subcutaneously Not-Taking Xarelto 10 MG 1 tab(s) orally once a day Not-Taking HUMALOG 100 units/mL 0 subcutaneously Not-Taking Methotrexate 2.5 MG DIRECTED ORALLY ONCE A WEEK; Duration: 30 *Please review and pick correct strength-formul ation from [employer] options. If intended option is not shown, discontinue and re-order from Quick Search* Not-Taking NYSTATIN 785876 units/mL 4 mL orally 4 t imes a day Not-Taking Ventolin HFA 108 (90 Base) MCG/ACT INHALE 2 PUFFS BY MOUTH EVERY 4 TO 6 HOURS NEEDED AND PER THE ASTHMA ACTION PLAN 17; Duration: 17 Not-Taking ALPHA-LIPOIC ACID 600 mg orally once a day Not-Taking Cymbalta 30 MG 1 cap(s) orally 2 times a day Not-Taking XOLAIR 150 mg 300 mg subcutaneously every 4 weeks; Duration: 1 dose(s) Not-Taking NASACORT ALLERGY 24HR 55 mcg/inh 2 spray(s) intranasally once a day Not-Taking Bystolic 10 MG ; Duration: 90 Not-Taking ASPIRIN 81 mg 1 tab(s) orally [...] Status Risk Notes Problem Chronic allergic conjunctivitis (72471536) Other chronic allergic conjunctivitis (H10.45) Active confirmed Problem Essential hypertension (02439107) Essential (primary) hypertension (I10) Active confirmed Problem Allergic rhinitis caused by pollen (disorder) (25584157) Allergic rhinitis due to pollen (J30.1) Active confirmed Problem Allergic rhinitis (77676559) Other allergic rhinitis (J30.89) Active confirmed Problem Chronic rhinitis (46483573) Chronic rhinitis (J31.0) Active confirmed Problem Chronic obstructive pulmonary disease (11076732) Chronic obstructive pulmonary disease, unspecified (J44.9) Active confirmed Problem Mild intermittent asthma (076601412) Mild intermittent asthma, uncomplicated (J45.20) Active confirmed Problem Uncomplicated mild persistent asthma (185642904) Mild persistent asthma, uncomplicated (J45.30) Active confirmed Problem Uncomplicated moderate persistent asthma (005833632) Moderate persistent asthma, uncomplicated (J45.40) Active confirmed Problem Uncomplicated severe persistent asthma (753935248) Severe persistent asthma, uncomplicated (J45.50) Active confirmed Problem Adverse effect o f glucocorticoids and synthetic analogues, subsequent encounter (T38.0X5D) Active confirmed Problem Allergic rhinitis caused by animal hair and dander (753851922619661) Allergic rhinitis due to animal (cat) (dog) hair and dander (J30.81) Active confirmed Problem Gastro-esophageal reflux disease without esophagitis (204107695) Gastro-esophageal reflux disease without esophagitis (K21.9) Active confirmed Problem Disorder of vocal cord (55936835) 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) Active confirmed Problem Eosinophilic asthma (711552640) 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) Active confirmed Vital Signs Respiratory Rate 18 /min 05/25/2024 Oximetry 97 % 11/23/2024 Blood pressure diastolic 78 mm Hg 11/23/2024 Height 61.50 in 11/23/2024 Blood pressure systolic 145 mm Hg 11/23/2024 Weight 119.0 lbs 11/23/2024 BMI 22.12 kg/m2 11/23/2024 Encounters Encounter Location Date Provider Diagnosis [facility] [address] [place] [phone] 11/23/2024 Hailey Young Severe persistent asthma, uncomplicated J45.50 ; Eosinophilic asthma J82.83 ; Chronic obstructive pulmonary disease, unspecified J44.9 ; Hypoxemia R09.02 ; Allergic rhinitis due to pollen J30.1 ; Other allergic rhinitis J30.89 ; Other chronic allergic conjunctivitis H10.45 and Essential (primary) hypertension I10 [facility] [address] [place] [phone] 05/25/2024 Hailey Sotelo Severe persistent asthma, uncomplicated J45.50 ; Eosinophilic asthma J82.83 ; Chronic obstructive pulmonary disease, unspecified J44.9 ; Hypoxemia R09.02 ; Allergic rhinitis due to pollen J30.1 ; Other allergic rhinitis J30.89 ; Other chronic allergic conjunctivitis H10.45 and Essential (primary) hypertension I10 [facility] [address] [place] [phone] 03/30/2024 Hailey Sotelo Severe persistent asthma, uncomplicated J45.50 ; Eosinophilic asthma J82.83 ; Chronic obstructive pulmonary disease, unspecified J44.9 ; Hypoxemia R09.02 ; Allergic rhinitis due to pollen J30.1 ; Other allergic rhinitis J30.89 ; Other chronic allergic conjunctivitis H10.45 and Essential (primary) hypertension I10 [facility] [address] [place] [phone] 01/13/2024 Johana Martinez Severe persistent asthma, uncomplicated J45.50 ; Eosinophilic asthma J82.83 ; Chronic obstructive pulmonary disease, unspecified J44.9 ; Hypoxemia R09.02 ; Allergic rhinitis due to pollen J30.1 ; Other allergic rhinitis J30.89 ; Other chronic allergic conjunctivitis H10.45 and Essential (primary) hypertension I10 [facility] [address] [place] [phone] 07/20/2024 Sean Brown Severe persistent asthma, uncomplicated J45.[address] [address] 09/28/2024 Sean Brown Severe persistent asthma, uncomplicated J45.50 [facility] [address] [facility] [address] [place] [address] 03/23/2024 Herbert Hancock [facility] [address] [place] [address] 07/19/2024 Nahed Avelar Severe persistent asthma, uncomplicated [...] Severe persistent asthma, uncomplicated (ICD-10 - J45.50) 11/23/2024 Severe persistent asthma, uncomplicated (ICD-10 - J45.50) Kelli has a history of asthma/COPD overlap with subjective inhalant triggers and previous labwork/skin testing showing atopic disease. - Kelli continues to feel well. Continues Fasenra Q8 weeks. Feels she can breathe better. Pulmonary gave the OK to hold supplemental oxygen and Spiriva -Needs to continue Advair generic. I suspect her use is infrequent, reminded of daily use and spoke to jurgen. - Spirometry last visit with mild obstruction. Recent PFT reviewed showing moderate obstruction with good BD response. Consider a change to Trelegy -Recommend annual flu shot - Continued Fasenra [...] for Fasenra. - Lungs clear on exam. 11/23/2024 Eosinophilic asthma (ICD-10 - J82.83) The patient [...] day-time oxygen per pulmonary, saturation stable today 11/23/2024 Chronic obstructive pulmonary disease, unspecified (ICD-10 - J44.9) Continue per pulmonary, Dr. Landis 11/23/2024 Hypoxemia (ICD-10 - R09.02) Off day-time oxygen [...] (ICD-10 - J30.89) Follow allergen avoidance, meds 11/23/2024 Allergic rhinitis due to pollen (ICD-10 - [...] - Will continue to monitor symptoms off. 11/23/2024 Other allergic rhinitis (ICD-10 - J30.89) Follow [...] is due to stress over upcoming lumpectomy 11/23/2024 Other chronic allergic conjunctivitis (ICD-10 - H10.45) Given ocular signs and symptoms I encouraged allergy avoidance measures and meds as above. If symptoms persist, consider adding additional medications including intraocular antihistamine/ma st cell stabilizer, PRN 11/23/2024 Essential (primary) hypertension (ICD-10 - I10) BP normal today without symptoms of urgency or emergency. Continue serial checks and follow-up with PCP 03/30/2024 Other 01/06/2024 Other 07/20/2024 Other 01/13/2024 Other 03/23/2024 Other 05/25/2024 Other 09/28/2024 Other Plan Of Treatment Pending Test Test Name Order Date Spirometry 11/23/2024 Next Appt Details Provider Name:Hailey Sotelo , 01/18/2025 03:30:00 PM, [address] [facility], [address], [address], Insurance Providers Payer Name Payer Address Payer Phone Subscriber Number Group Number Insured Name Patient Relationship to Insured Coverage Start Date Coverage End Date [facility] [address] [address] [place] [address] [id number] Rula Goldstein Self - patient is the insured [facility] [address] [place] [address] [id number] Rula Goldstein Self - patient is the insured Medical (General) History Medical History History ICD Code COPD/asthma overlap IDDM Hypothyroidism Hypertension GERD Depression Diverticulitis (with diverticulosis) NOS Herpesviral infection, unspecified Left eye infection - June 2017, July 2017 Left facial cyst, s/p I&D 08/31/17 (Dr. Perez-plastics) Atherosclerotic heart diseas e of [place] coronary artery without angina pectoris Obstructive sleep apnea (adult) (pediatr ic) G47.33 Allergic rhinitis due to pollen J30.1 Other allergic rhinitis J30.89 Other chronic allergic conjunctivitis H1 0.45 Surgical History Surgery Date(Month/Year) Colonoscopy Nov 2016 Cyst removal (face) 08/2017 lumpectomy 04/2024 Hospitalization History Reason Date(Month/Year) Minor stroke 2024 Heart issues/wheezing 12/2020
--- OUTSIDE RECORDS SUMMARY | 2024-12-20 20:35 | XMS_ITS | Encounter Summary ---
Author Organization [facility] Address [address] [place] [address] Care Team Providers Care Gang Investigator Name Role Phone Forrest Wheat DO Primary Care Provider [phone] David Pruitt MD Primary Care Provider [phone] Encounter Details Date Type Department Care Team (Late st Contact Info) Description 08/06/2018 Abstract [facility] CONVERSION [address] [place] [address] , Yoly Manrique MD Social History Tobacco [...] on filedocumented in this encounter Care Teams Gang Investigator Relationship Specialty Start Date End Date Forrest Wheat DO [address] [place] [address] PCP - General 05/04/16 10/08/21 David Pruitt MD [address] [facility] [address] [place] [address] PCP - General FAMILY PRACTICE 10/09/21 documented as of this encounter
--- OUTSIDE RECORDS SUMMARY | 2024-12-20 20:35 | XMS_ITS | Clinical Summary ---
Author Organization [facility] Address [address] [place] [address] Care Team Providers Care Intelligence Group Supervisor Name Role Phone David Pruitt MD Primary Care Provider Aram Oro MD Unavailable [phone] David Fried MD Unavailable [phone] Chema Foreman MD Unavailable [phone] Lobo Driscoll DO Unavailable [phone] Allergies Active Allergy Reactions Criticality Noted Date Comments Atorvastatin Muscle pain Medium 01/01/2019 Myalgias on atorvastatin 20 mg Celecoxib Hives High 04/20/2024 Flecainide Other (See comments) Low 01/21/2021 QT prolongation House Dust Iodinated Contrast Media Other (See comments) Medium 06/30/2017 Dizzy, hot, nauseated, no hives or wheezing. Metformin Chest tightness,Other (See comments) Medium 06/30/2017 Chest pain [place]-3 Fatty Acids Rash,Hives High 01/27/2018 Prednisone Other (See comments) 06/12/2024 worsening hyperglycemia/hyperte nsion Shellfish Derived Hives High 04/20/2024 Shrimp Hives High 04/20/2024 Medications PROAIR HFA 90 mcg/actuation inhaler 018 Active hydroCHLOROthiaz grover (HYDRODIURIL) 25 mg tablet Take 1 tablet (25 mg total) by mouth daily 018 Active cetirizine (ZyrTEC) 10 mg tablet Take 1 tablet (10 mg total) by mouth daily Active losartan (COZAAR) 50 mg tablet Take 1 tablet (50 mg total) by mouth daily Active leflunomide (ARAVA) 20 mg tablet Take 1 tablet (20 mg total) by mouth daily Active lifitegrast (Xiidra) 5 % dropperette INSTILL 1 DROP INTO EACH EYE TWICE DAILY for 30 Active omeprazole (PriLOSEC) 40 mg capsule Take 1 capsule (40 mg total) by mouth daily Active DULoxetine DR (CYMBALTA) 30 mg capsule Take 1 capsule (30 mg total) by mouth daily Active traMADoL (ULTRAM) 50 mg tablet Take 1 tablet (50 mg total) by mouth every 6 (six) hours as needed for pain 20 tablet Active clopidogreL (PLAVIX) 75 mg tablet Take 1 tablet (75 mg total) by mouth daily 90 tablet 3 2025 Active multivitamin with minerals tablet Take 1 tablet by mouth daily Active fluticasone propion-salmeter oL (AIRDUO RESPICLICK) 113-14 mcg/actuation inhaler Inhale 1 puff 2 (two) times a day Active montelukast (SINGULAIR) 10 mg tablet Take 1 tablet (10 mg total) by mouth daily Active ondansetron ODT (ZOFRAN-ODT) 4 mg disintegrating tablet Take 1 tablet (4 mg total) by mouth every 6 (six) hours as needed Active potassium chloride ER 10 mEq CR tablet Take 1 tablet/capsule (10 mEq total) by mouth 2 (two) times a day Active DULoxetine DR (CYMBALTA) 60 mg capsule Take 1 capsule (60 mg total) by mouth daily Active tiotropium bromide (SPIRIVA RESPIMAT) 2.5 mcg/actuation inhalerIndicatio ns:Bronchospasm Prevention with COPD Inhale 2 puffs daily 1 each Active Additional Information Patient not taking.Reported on 11/27/2024 cyanocobalamin (Vitamin B-12) 2,000 mcg tabletIndication s:B12 deficiency Take 1 tablet (2,000 mcg total) by mouth daily 90 tablet 3 025 2025 Active levothyroxine (SYNTHROID) 88 mcg tablet Take 1 tablet (88 mcg total) by mouth daily Active methotrexate 2.5 mg tablet TAKE 10 TABLETS BY MOUTH ONCE A WEEK, EVERY 7 DAYS. Active Mounjaro 7.5 mg/0.5 mL pen injector injection INJECT 7.5MG SUBCUTANEOUSLY ONCE A WEEK, EVERY 7 DAYS Active azelastine (ASTELIN) 137 mcg (0.1 %) nasal spray Administer 1 spray into each nostril 2 (two) times a day Use in each nostril as directed 30 mL 3 Active oxyBUTYnin XL (DITROPAN-XL) 10 mg 24 hr tablet Take 1 tablet (10 mg total) by mouth daily Active rosuvastatin (CRESTOR) 10 mg tabletIndication s:Mixed hyperlipidemia,C oronary artery disease involving [place] coronary artery of [place] heart without angina pectoris Take 1 tablet by mouth once daily 90 tablet 2 025 Active Xarelto 20 mg tablet Take 1 tablet (20 mg total) by mouth daily with dinner 90 tablet 1 Active TOUJEO MAX 300 unit/mL (3 mL) pen for injection 60 Units daily 022 2024 Discontinued Xarelto 20 mg tablet TAKE 1 TABLET BY MOUTH ONCE DAILY WITH SUPPER 90 tablet 025 2024 Discontinued Xarelto 20 mg tablet TAKE 1 TABLET BY MOUTH ONCE DAILY WITH SUPPER 90 tablet 1 025 2024 Discontinued(D uplicate order) Active Problems Problem Noted Date Diagnosed Date [...] from 03/11/2024:Stage IA(cT1c, cN0, cM0, G1, ER+, OK+, HER2: Equivocal) - Signed by David Fried MD on 03/11/2024 Pathologic stage from 07/19/2024: pT1c, cN0, cM0, G2, ER+, OK+, HER2- - Signed by David Fried MD [...] 01/27/2018 Assessment & Plan (01/27/2018 2:58 PM LIME FILTER OPERATOR): Reviewed chart and discussed blood work with patient. She denies any GI sx and says EGD 2 yrs ago and gojwmr0eypab this year. Discussed posssibility of gi blood loss and offered EGD/Colonoscopy. At this time she declines and promises to follow blood counts with PMD promising to call if changes her mind Coronary artery disease invo lving [place] coronary artery of [place] heart without angina pectoris 01/26/2018 Mixed hyperlipidemia 01/26/2018 Diastolic dysfunction 01/26/2018 MATTHEWS (dyspnea on exertion) 06/30/2017 Uncomplicated asthma 06/30/2017 Mixed diabetic hyperlipidemi a associated with type 2 diabetes mellitus ([facility]/HCC) 06/30/2017 Lumbago 08/31/2016 Degeneration of intervertebral disc of lumbar re gion 08/31/2016 Resolved Problems Problem Noted Date Diagnosed Date Resolved Date Benign hypertensive heart di sease without heart failure 01/21/2021 02/04/2022 Excessive daytime sleepiness 01/21/2021 08/19/2021 Benign essential HTN 06/30/2017 021 Chest pain 01/10/2014 01/26/2018 Overview (06/05/2016): Chest pain Encounters Date Type Department Care Team Description 11/27/2024 4:00 PM CDT Office Visit [facility] [address] [place] [address] Lobo Driscoll DO Malignant neoplasm of upper-outer quadrant of right breast in female, estrogen receptor positive (HCC) (Primary Dx); Vitamin D deficiency 10/06/2024 1:46 PM CDT - 10/06/2024 11:59 PM CDT Hospital Encounter [facility] Bldg 1 Breast [facility] [address] [place] [address] Malignant neoplasm of upper-outer quadrant of right female breast, unspecified estrogen receptor status (HCC) Discharge Disposition: Discharge to home or self care 09/22/2024 3:00 PM CDT Office Visit [facility] Cardiology [address] [place] [id number] Makayla Ceron NP Coronary artery disease involving [place] coronary artery of [place] heart without angina pectoris (Primary Dx); Paroxysmal atrial flutter (HCC); Chronic anticoagulation; Essential hypertension; TIA (transient ischemic attack); Atherosclerosis of right carotid artery from Last 3 Months Surgical History Surgery Date Site/Laterality Comments TONSILLECTOMY 1949 Tonsillectomy APPENDECTOMY 1950 Appendectomy CHOLECYSTECTOMY 1975 Cholecystectomy THYROIDECTOMY 1966 Thyroidectomy CERVICAL DISCECTOMY 2005 Diskectomy, Cervical OTHER SURGICAL HISTORY Carpal tunnel surgery/2006 and 2007 BREAST BIOPSY 03/01/2023 - 02/29/2024 Right ULNAR [...] the past 12 months has th e [employer], gas, oil, or water [employer] threatened to shut off services in [...] any clubs o r organizations such as tenriism groups, unions, fraternal or athletic groups, or school groups? No 06/05/2024 How often do you attend meet ings of the clubs or organizations you belong to? Never 06/05/2024 Are you , , di vorced, , never , or living with a partner? 06/05/2024 Overall Financial Resource Strain (CARDIA) Answe r [...] any time in the past 12 m [facility], were you homeless or living in a penitentiary (including now)? No 06/05/2024 AUDIT-C Answer Date Recorded Frequency of Alcohol Consumption Not on file 11/27/2024 Q2: How many drinks containi ng alcohol do you have on a typical day when you are drinking? Patient does not drink Frequency of Binge Drinking Not on file 10/31 Personal Safety Answer Date Recorded Have you ever been in or are you currently in a harmful physical or emotional relationship or is someone making you feel afraid or unsafe? Denies 06/02/2024 Comments No Sex and Gender Information Value Date Recorded Sex Assigned at Not on file Legal Sex Female 12:20 AM LIME FILTER OPERATOR Gender Identity Female 12/31/2023 2:40 PM [...] Sign Reading Time Taken Comments Blood Pressure 117/66 11/27/2024 3:56 PM CDT Pulse 105 11/27/2024 3:56 PM CDT gas manager notified Temperature 36.7 C (98 F) 11/27/2024 3:56 PM CDT Respiratory Rate 19 11/27/2024 3:56 PM CDT Oxygen Saturation 96% 11/27/2024 3:5 6 PM CDT Inhaled Oxygen Concentration - - Weight 53.3 kg (117 lb 8.1 oz) 11/28/19 25 3:56 PM CDT Height 152.4 cm (5') 10/06/2024 1:48 PM CDT Body Mass Index 22.95 10/06/2024 1:48 PM CDT Plan of Treatment Health Maintenance Due Date Last Done Comments Albumin Creatinine Ratio, Urine 1945 Osteoporosis Screening-Bone Density Scan 1945 Dilated Eye Exam 1945 Foot Exam 1945 DTaP/Tdap/Td Vaccine (1 - Tdap) 09/30/1954 Hepatitis B Screening 09/30/1961 Well Visit 65+ 09/30/2008 Hemoglobin A1C 10/18/2024 04/20/2024, 03/31/2024 Covid-19 Vaccine (7 - 2023-2 5 season) 2024 12/21/2023, 01/08/2023, 02/04/2022, Additional history exists Influenza Vaccine (#1) 2024 , 01/08/2023, 01/28/2022, Additional history exists Lipid Panel 04/21/2025 04/21/2024, 06/2 03/2021, 03/27/2019, Additional history exists Depression Screening 06/02/2025 06/02/2024, 06/03/19 25 Fall Risk Assessment 06/09/2025 06/09/2024 eGFR 06/09/2025 06/09/2024, 05/30, 06/08/2024, Additional history exists Zoster Vaccine Completed 03/09/2019, 12/13/2018 Pneumococcal vaccine 65+ Completed 03/17/2022, 1209/2020 Medical Devices Implanted Type Area Garment Sewer Hand Device Identifier Shelf Expiration Date Model / Serial / Lot Manufacture [employer] [place] 20ga 5cm Reposition J Curve Wire Centimeter Andrew Stabilizer [id number] - [id number] Implanted:Qty: 1 on 04/07/2024 by Eleazar Gavin MD at [facility] Right: Breast [employer] [id number] 01/12/2029 [id number] / / [id number] Procedures Procedure Name Priority Date/Time Associated Diagnosis Comments DIAGNOSTIC MAMMOGRAM RIGHT W SRINATH Schedule Routine, Read Routine (OP Routine) 10/06/2024 2:08 PM CDT Malignant neoplasm of upper-outer quadrant of right female breast, unspecified estrogen receptor status (HCC) EGFR Routine 06/09/2024 5:56 AM CDT HEMOGLOBIN A1C Routine 03/31/2024 3:12 PM LIME FILTER OPERATOR Pre-op testing Diabetes mellitus due to [...] is also recommended. Electronically signed by: Eleazar Gvain M.D. Narrative 10/06/2024 2:42 PM CDT EXAMINATION: [...] was last reviewed 2020. Testing performed by: [facility], [address] [place] [address]., [id number] Blood 06/09/2024 5:56 AM CDT 06/09/2024 6:12 AM CDT Colt Landis MD LAB BLOOD ORDERABLES F inal Result KISHA [address] [facility] Department [place] [address] * (ABNORMAL) Hemoglobin A1c (03/31/2024 3:12 PM LIME FILTER OPERATOR) Hgb A1C 5.9(H) 4.0 - 5.6 % Comment:Testing performed by : [facility], [address] [place] [address]., [id number] Estimated Average Glucose 123 mg/dL KISHA Comment: The ADA recommends reporting an estimated Average Glucose (eAG) with all Hemoglobin A1c results using the equation derived from a study of 507 normal and diabetic adults. Minority populations were underrepresented and children were not included. (Diabetes Care 31:4229-1741, 2008). The eAG is not equivalent to a fasting glucose. Testing performed by: [facility], [address] [place] [address]., [address] Blood 03/31/2024 3:12 PM LIME FILTER OPERATOR 03/31/2024 3:22 PM LIME FILTER OPERATOR Narrative DANNYELVIN - 03/31/2024 5:28 PM LIME FILTER OPERATOR PRE SURGICAL TESTING ONLY--04/07/2024--Surgeons and Role: * Aram Oro MD - Primary-@ANPROCEDURE@ Eleazar Ibrahim MD LAB BLOOD ORDERABL ES Final Result [facility] [address] [facility] Department [place] [address] * POCT lipid panel (08/19/2021 [...] Most Recently Relevant to Health Maintenance Insurance MEDICARE RAILROAD [facility] MEDICARE RAILROAD [facility] [place] [address] MEDICARE RAILROAD [facility] Advance Directives For more information, please contact: [phone] * Full Code (Latest Code Status on File) Date Activated Date Inactivated Comments 06/05/2024 7:54 AM 06/09/2024 5:12 PM * Full Code Date Activated Date Inactivated Comments 05/04/2024 10:26 PM 05/07/2024 3:47 PM Care Teams Intelligence Group Supervisor Relationship Specialty Start Date End Date David Pruitt MD [address] [facility] [address] [place] [address] PCP - General Family Medicine 06/30/17 Aram Oro MD [facility] [address] [place] [address] Surgeon Surgery 02/29/24 David Fried MD [address] [address] Radiation Oncologist Radiation Oncology 02/29/24 Chema Foreman MD [address] [place] [address] Consulting Physician Interventional Cardiology 03/17/24 Lobo Driscoll DO [address] [place] [address] Medical Oncologist/Budget Record Clerk Hematology and Oncology 09/06/24
--- OUTSIDE RECORDS SUMMARY | 2024-12-20 20:35 | XMS_ITS | Clinical Summary ---
Author Organization [facility] Address [address] [place] [address] Phone Care Team Providers Care Mechanical Apprentice Name Role Phone David Pruitt MD Primary Care Provider [phone] Allergies Active Allergy Reactions Criticality Noted Date Comments Atorvastatin Muscle Pain Medium 01/01/2019 Myalgias on atorvastatin 20 mg Celecoxib Hives High 04/20/2024 Fish Oil Hives High 04/20/2024 Flecainide Other (See Comments) Low 01/21/2021 QT prolongation Iodinated Contrast Media Other (See Comments) Medium 06/30/2017 Dizzy, hot, nauseated, no hives or wheezing. Metformin Other (See Comments) 04/20/2024 Chest pain [place]-3 Fatty Acids Hives,Rash High 01/27/2018 Prednisone Other [...] mouth daily. 30 Tablet 04/22/2024 1:32 PM LOCK INSTALLER 5 Active albuterol sulfate HFA 90 mcg/actuation [...] on file Legal Sex Female 3:10 PM LOCK INSTALLER Gender Identity Not on file Sexual Orientation Not on file Last Filed Vital Signs Vital Sign Reading Time Taken Comments Blood Pressure 144/85 06/13/2024 2:33 PM CDT Pulse 98 06/13/2024 2:33 PM CDT Temperature 37.1 C (98.7 F) 06/13/2024 2:33 PM CDT Respiratory Rate 18 04/22/2024 12:42 PM LOCK INSTALLER Oxygen Saturation 99% 06/13/2024 2:33 PM CDT Inhaled Oxygen Concentration - - Weight 56.2 kg (124 lb) 06/13/2024 2:33 PM CDT Height 154.9 cm (5' 1) 06/13/2024 2:33 PM CDT Body Mass Index 23.43 06/13/2024 2:33 PM CDT Plan of Treatment Upcoming Encounters Date Type Department Care Team (Late st Contact Info) Description 01/02/2025 10:15 AM LOCK INSTALLER Appointment [facility] [place] [address] [place] [address] [place] [address] [address] [place] [address] 01/02/2025 11:15 AM LOCK INSTALLER Office Visit [facility] Vascular Surgery [address] [address] [address] [facility] [address] [place] [address] [place] [address] [address] [place] [address] Health Maintenance Due Date Last [...] Comments LIPID PANEL Routine 04/21/2024 1:22 AM LOCK INSTALLER HEMOGLOBIN A1C Routine 04/20/2024 10:39 PM LOCK INSTALLER from Last 3 Months or Most Recently Relevant to Health Maintenance Results * (ABNORMAL) LIPID PANEL (04/21/2024 1:22 AM LOCK INSTALLER) [facility] CHOLESTEROL 99 <200 mg/dL 04/21/2024 2:26 AM LOCK INSTALLER [facility] TRIGLYCERIDE 90 <150 mg/dL 04/21/2024 2:26 AM LOCK INSTALLER [facility] HDL 39(L) 40 - 59 mg/dL 04/21/2024 2:26 AM [facility] [employer] [facility] LDL CALCULATED 42 <100 mg/dL 04/21/2024 2:26 AM [facility] NON-HDL CHOLESTEROL 60 <130 mg/dL 04/21/2024 2:26 AM [facility] [employer] [facility] Blood Venipuncture / Unknown 04/21/2024 1:22 AM LOCK INSTALLER 04/21/2024 1:49 AM [facility] [employer] [facility] - 04/21/2024 2:26 AM LOCK INSTALLER TOTAL CHOLESTEROL mg/dL Desirable <200 Borderline high [...] Ranges for Lipid Panels (NCEP/AMA) . Keny Lazna MD CHEMISTRY ORDERABLES Final Resul t [facility] [employer] [facility]# [id number] [address] [facility] [place] [address] * (ABNORMAL) HEMOGLOBIN A1C (04/20/2024 10:39 PM LOCK INSTALLER) HEMOGLOBIN A1C 6.9(H) <5.7 % 04/20/2024 11:22 PM [facility] [employer] [facility] EST. AVG GLUCOSE, A1C 151 mg/dL 04/20/2024 11:22 PM [facility] [employer] [facility] Blood Venipuncture / Unknown 04/20/2024 10:39 PM LOCK INSTALLER 04/20/2024 10:49 PM LOCK INSTALLER Narrative [facility] - 04/20/2024 11:22 PM LOCK INSTALLER HGB A1C INTERPRETATION NORMAL: <5.7% PRE-DIABETES: 5.7 - 6.4% DIABETES: 6.5% OR GREATER Keny Lanza MD CHEMISTRY ORDERABLES Final Resul t [facility] CLIA# [id number] [address] [place] [address] from Last 3 Months or Most Recently Relevant to Health Maintenance Insurance MEDICARE [employer] [facility] [id number] RX [employer] RX Member Subscriber Plan / Payer (Ef fective 2015-Present) Name:Rula Goldstein Relation to Subscriber:Self Name:Rula Goldstein Payer ID:Not on file Group ID:[id number] Type:RX Medicare Part D Address: [address] [place] Advance Directives For more information, please contact: [phone] * Default Full Code - Needs Discussion (Latest Code Status on File) Date Activated Date Inactivated Comments 04/20/2024 10:20 PM 04/22/2024 3:48 PM Care Teams Mechanical Apprentice Relationship Specialty Start Date End Date David Pruitt MD [address] [facility] [address] [facility] [address] [place] [address] PCP - General Family Practice 05/05/24
--- OUTSIDE RECORDS SUMMARY | 2024-12-20 20:35 | XMS_ITS | Encounter Summary ---
Author Organization [facility] Address [address] [place] [address] Care Team Providers Care Primary School Principal Name Role Phone David Pruitt MD Primary Care Provider Aram Oro MD Unavailable [phone] David Fried MD Unavailable Chema Foreman MD Unavailable [phone] Lobo Driscoll DO Unavailable [phone] Encounter Details Date Type Department Care Team (Late st Contact Info) Description 08/07/2024 Orders Only [facility] Health Information Management [address] [place] [address] Scanning, Provider Social History Tobacco Use Types Packs/Day Years Used Date Smoking Tobacco: Former Smokeless Tobacco: Never Comments:Quit 1996 Alcohol Use Standard Drinks/Week Comments No 0 (1 standard drink = 0.6 oz pur e alcohol) [facility] Utilities Answer Date Recorded In the past 12 months has [employer], gas, oil, or water [employer] threatened to shut off services in your home? No 06/05/2024 Social Connection and Isolation Panel Answer Date Recorded In a typical week, how many times do you talk on the phone with family, friends, or neighbors? More than three times a week 06/05/2024 How often do you get togethe r with friends or relatives? Twice a week 06/05/2024 How often do you attend [facility] or yazdanism services? Never 06/05/2024 Do you [...] any time in the past 12 m [facility], were you homeless or living in a group home (including now)? No 06/05/2024 Personal Safety Answer Date Recorded Have you ever been in or are you currently in a harmful physical or emotional relationship or is someone making you feel afraid or unsafe? Denies 06/02/2024 Comments No Sex and Gender Information Value Date Recorded Sex Assigned at Not on file Legal Sex Female 12:20 AM SECURITY PROGRAM MANAGER Gender Identity Female 12/31/2023 2:40 PM [...] documented as of this encounter Care Teams Primary School Principal Relationship Specialty Start Date End Date David Pruitt MD [address] [facility] [address] [place] [address] PCP - General Family Medicine 06/30/17 Aram Oro MD [address] [facility] [address] [place], [place] [id number] Surgeon Surgery 02/29/24 David Fried MD [address] [facility] [address] [place], [place] [id number] Radiation Oncologist Radiation Oncology 02/29/24 Chema Foreman MD [address] [facility] [address] [place] [address] Consulting Physician Interventional Cardiology 03/17/24 Lobo Driscoll DO [address] [facility] [address] [place] [address] Medical Oncologist/Gardener Hematology and Oncology 09/06/24 documented as of this encounter
== END 2024-12-20 22:29 | disposition home or self-care (01) ==
PROVIDERS: Emergency Provider Student in an Organized Health Care Education/Training Program; PCP Family Medicine
DX: S09.90XA Unspecified injury of head, initial encounter (principal); W01.0XXA Fall on same level from slipping, tripping and stumbling without subsequent striking against object, initial encounter; I48.91 Unspecified atrial fibrillation; Z79.01 Long term (current) use of anticoagulants; E78.5 Hyperlipidemia, unspecified; Z86.73 Personal history of transient ischemic attack (TIA), and cerebral infarction without residual deficits; Z85.3 Personal history of malignant neoplasm of breast; J96.11 Chronic respiratory failure with hypoxia; Z99.81 Dependence on supplemental oxygen; K21.9 Gastro-esophageal reflux disease without esophagitis; E03.9 Hypothyroidism, unspecified; E11.3299 Type 2 diabetes mellitus with mild nonproliferative diabetic retinopathy without macular edema, unspecified eye; G47.33 Obstructive sleep apnea (adult) (pediatric); F41.8 Other specified anxiety disorders; I10 Essential (primary) hypertension; Z87.891 Personal history of nicotine dependence; Z80.42 Family history of malignant neoplasm of prostate; Z83.3 Family history of diabetes mellitus; Z80.8 Family history of malignant neoplasm of other organs or systems; Z80.1 Family history of malignant neoplasm of trachea, bronchus and lung
CPT/HCPCS: 70450; 72125; 99284

== ENCOUNTER 2025-01-31 15:44 | Outpatient (CLI) | payer MEDICARE, SELFPAY ==
[2025-01-31 16:24] LABS: Hematocrit 31.5 % (37.0-47.0); Hemoglobin 10.0 g/dL (12.0-15.0); Mean Corpuscular HGB Conc 31.7 g/dl (32-36); Mean Corpuscular Hemoglobin 25.9 pg (26-34); Mean Corpuscular Volume 81.6 fl (80-100); Platelet Count Result 276 k/mm3 (150-375); Red Blood Count 3.86 M/mm3 (4.2-5.4); White Blood Count 8.0 K/mm3 (4.5-10.0)
[2025-01-31 16:34] LABS: Anion Gap 4 mmol/L (4-12); Blood Urea Nitrogen 11 mg/dL (7-17); Calcium 8.7 mg/dL (8.4-10.2); Carbon Dioxide 27 mmol/L (22-30); Chloride 102 mmol/L (98-107); Estimated Glomerular Filt Rate > 60; Glucose 161 mg/dL (65-110); Potassium 3.1 mmol/L (3.4-5.0); Sodium 133 mmol/L (137-145)
--- OUTSIDE RECORDS SUMMARY | 2025-01-31 16:52 | XMS_ITS ---
Author Organization [facility] al Address [address] [place] [address] Care Team Providers Care Canvas Baster Jumpbasting Name Role Phone David Pruitt MD Primary Care Provider Aram Oro MD Unavailable [phone] David Fried MD Unavailable [phone] Chema Foreman MD Unavailable [phone] Lobo Driscoll DO Unavailable [phone] Active Problems Problem Noted Date Diagnosed Date Altered mental status, unspe cified altered mental status type 01/15/2025 Personal history of radiation therapy 09/06/2024 Asthma-COPD overlap syndrome 07/31/2024 Nocturnal hypoxia 07/09/2024 Steroid-induced hyperglycemia 06/09/2024 Simple chronic bronchitis 06/06/2024 Urinary tract infection without hematuria 2024 COVID-19 virus infection 06/02/2024 Breast hematoma 05/04/2024 Malignant neoplasm of upper- outer quadrant of right breast in female, estrogen receptor positive 03/11/2024 Cancer Staging:Clinical stage from 03/11/2024:Stage IA(cT1c, cN0, cM0, G1, ER+, NV+, HER2: Equivocal) - Signed by David Fried MD on 03/11/2024 Pathologic stage from 07/19/2024: pT1c, cN0, cM0, G2, ER+, NV+, HER2- - Signed by David Fried MD [...] 01/27/2018 Assessment & Plan (01/27/2018 2:58 PM GAGGERMAN): Reviewed chart and discussed blood work with patient. She denies any GI sx and says EGD 2 yrs ago and [id number] this year. Discussed posssibility of gi blood loss and offered EGD/Colonoscopy. At this time she declines and promises to follow blood counts with PMD promising to call if changes her mind Coronary artery disease invo lving alturas coronary artery of alturas heart without angina pectoris 01/26/2018 Mixed hyperlipidemia 01/26/2018 Diastolic dysfunction 01/26/2018 MATTHEWS (dyspnea on exertion) 06/30/2017 Uncomplicated asthma 06/30/2017 Mixed diabetic hyperlipidemi a associated with type 2 diabetes mellitus ([facility]) 06/30/2017 Lumbago 08/31/2016 Degeneration of [...]
--- OUTSIDE RECORDS SUMMARY | 2025-01-31 16:52 | XMS_ITS | Encounter Summary ---
Author Organization [facility] Address [address] [place] [address] Care Team Providers Care Casework Manager Name Role Phone David Pruitt MD Primary Care Provider Aram Oro MD Unavailable [phone] David Fried MD Unavailable [phone] Chema Foreman MD Unavailable [phone] Lobo Driscoll DO Unavailable [phone] Encounter Details Date Type Department Care Team (Late st Contact Info) Description 01/22/2025 Telephone [facility] Cardiology [address] [place] [address] Makayla Ceron NP [address] [place] [address] Social History Tobacco Use Types Packs/Day Years Used Date Smoking Tobacco: Former Cigarettes Smokeless Tobacco: Never Comments:Quit 1996 Alcohol Use Standard Drinks/Week Comments No 0 (1 standard drink = 0.6 oz pur e alcohol) Social Connection and Isolation Panel Answer Date Recorded In a typical week, how many times do you talk on the phone with family, friends, or neighbors? More than three times a week 06/05/2024 How often do you get togethe r with friends or relatives? Twice a week 06/05/2024 How often do you attend [facility] or sabianism services? Never 06/05/2024 Do you belong to [...] PHQ-2 Answer Date Recorded PHQ-2 Total Score 2 01/17/2025 PRAPARE - Transportation Answer Date Re corded In the past 12 months, has l ack of transportation kept you from medical appointments or from getting medications? No 08/2024 In the past 12 months, has l ack of transportation kept you from meetings, work, or from getting things needed for daily living? No 06/05/2024 PHQ-9 Answer Date Recorded PHQ-9 Total Score 9 01/17/2025 Housing Stability Vital Sign Answer Chivo e Recorded In the last 12 months, was t here a time when you were not able to pay the mortgage or rent on time? No 06/05/2024 In the past 12 months, how m any times have you moved where you were living? 0 06/05/2024 At any time in the past 12 m [facility], were you homeless or living in a retirement (including now)? No 06/05/2024 Social Connection and Isolation Panel Answer Date Recorded In a typical week, how many times do you talk on the phone with family, friends, or neighbors? More than three times a week 01/17/2025 How often do you get togethe r with friends or relatives? Twice a week 01/17/2025 How often do you attend chur ch or sabianism services? Never 01/17/2025 Do you belong to any clubs o r organizations such as yazidism groups, unions, fraternal or athletic groups, or school groups? No 01/17/2025 How often do you attend meet ings of the clubs or organizations you belong to? Never 01/17/2025 Are you , , di vorced, , never , or living with a partner? 01/17/2025 AUDIT-C Answer Date Recorded Frequency of Alcohol Consumption Not on file 11/27/2024 Q2: How many drinks containi ng alcohol do you have on a typical day when you are drinking? Patient does not drink Frequency of Binge Drinking Not on file 10/31 Overall Financial Resource Strain (CARDIA) Answe r Date Recorded How hard is it for you to pa y for the very basics like food, housing, medical care, and heating? Not very hard 01/17/2025 Hunger Vital Sign Answer Date Recorded Within the past 12 months, y ou worried that your food would run out before you got the money to buy more. Never true 01/18/20 25 Within the past 12 months, t he food you bought just didn't last and you didn't have money to get more. Never true 01/17/2025 PRAPARE - Transportation Answer Date Re corded In the past 12 months, has l ack of transportation kept you from medical appointments or from getting medications? No 12/30 In the past 12 months, has l ack of transportation kept you from meetings, work, or from getting things needed for daily living? No 01/17/2025 Housing Stability Vital Sign Answer Chivo e Recorded In the last 12 months, was t here a time when you were not able to pay the mortgage or rent on time? No 01/17/2025 In the past 12 months, how m any times have you moved where you were living? 0 01/17/2025 At any time in the past 12 m [facility], were you homeless or living in a retirement (including now)? No 01/17/2025 [facility] Utilities Answer Date Recorded In the past 12 months has th e electric, gas, oil, or water company threatened to shut off services in your home? No 01/17/2025 Personal Safety Answer Date Recorded Have you ever been in or are you currently in a harmful physical or emotional relationship or is someone making you feel afraid or unsafe? 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 Reviewed recommendations from CT. Instructed pt to stop xarelto due to being a high fall risk. Instructed pt to continue taking plavix as prescribed. Informed pts spouse that CT will discuss with them about getting a LAAO device for Mrs. Goldstein. Pts spouse verbalized understanding. ET COUNSELOR * Telephone Encounter - Makayla Ceron NP - 01/23/2025 9:42 AM BUDGET COUNSELOR I reviewed the patient's chart. She is a high fall risk and also had to be treated for a hematoma earlier this year. Her recent heart monitor showed sinus rhythm. Therefore I recommend that she stop Xarelto. Because she had a TIA earlier this year, has CAD, and has carotid disease, I recommend she remain on Plavix. At her appt in March I will talk to her and her about LAAO device because she appears to be a good candidate for that. If she and are comfortable with that, stop Xarelto and stay on Plavix. Thank you. ET COUNSELOR * Telephone Encounter - Mariajose Cintron RN - 01/22/2025 4:11 PM BUDGET COUNSELOR Images from the original note were not included. Message forwarded to [place] for review and recommendations. Note Pt spouse states pt was hospitalized for a week at [facility]. States Dr. Pace is concerned about pt taking Xarelto and Plavix since pt is fall risk. Requesting call to discuss. Contact: ET COUNSELOR * Telephone Encounter - Valerie Stevens - 01/22/2025 2:58 PM CST Pt spouse states pt was hospitalized for a week at [facility]. States Dr. Pace is concerned about pt taking Xarelto and Plavix since pt is fall risk. Requesting call to discuss. Contact: ET COUNSELOR documented in this encounter Plan of Treatment Not on file documented as of this encounter Visit Diagnoses Not on filedocumented in this encounter Care Teams Casework Manager Relationship Specialty Start Date End Date David Pruitt MD [address] [place] [address] PCP - General Family Medicine 06/30/17 Aram Oro MD [facility] [address] [place], [place] [id number] Surgeon Surgery 02/29/24 David Fried MD [facility] [address] [place], [place] [id number] Radiation Oncologist Radiation Oncology 02/29/24 Chema Foreman MD [address] [place] [address] [address] [place], [place] [id number] Consulting Physician Interventional Cardiology 03/17/24 Lobo Driscoll DO [facility] [address] [place], [place] [id number] Medical Oncologist/Hand Bookbinder Hematology and Oncology 09/06/24 documented as of this encounter
--- OUTSIDE RECORDS SUMMARY | 2025-01-31 16:52 | XMS_ITS | Clinical Summary ---
Author Organization [facility] Address [address] [place] [address] Care Team Providers Care Process Improvement Analyst Name Role Phone Unavailable Primary Care Provider Unavailabl e Source Comments [facility],non-owned Affiliates and Associated Physician Practices is amultiple site organization consisting of ambulatory clinics and hospital sitesin [place], [place], [place] and [place]. This disclosure is being madepursuant to the Care Everywhere program and may not contain all information available regarding this patient. Last updated 17.[facility] [employer] Social History Tobacco Use Types Packs/Day Years Used Date Smoking Tobacco: Never Assessed Comments Unknown Sex and Gender Information Value Date Recorded Sex Assigned at Not on file Legal Sex Female 6:29 AM REHAB CONSULTANT Gender Identity Not on file Sexual Orientation [...] DEPRESSION SCREENING 03/01/2024 COVID-19 VACCINE ( - 2024-2 6 season) 2024 INFLUENZA VACCINE (#1) 2024 HEPATITIS [...] age to complete this topic Insurance MEDICARE [facility] SELF PAY NO INSURANCE Member Subscriber Plan / Payer (Ef fective for All Dates) Name:Rula Goldstein Member ID:Not on file Relation to Subscriber:Not on file Name:RULA GOLDSTEIN Subscriber ID:Not on file (Home) Address: [address] [address] Payer ID:Not on file Group ID:Not on file Type:Self Pay Address: [place], [place]
--- OUTSIDE RECORDS SUMMARY | 2025-01-31 16:52 | XMS_ITS | Patient Health Record ---
Author Organization [facility] [place] ([address]) Address [address] [place] [address] Care Team Providers Care Sheet Metal Erector Name Role Phone David Pruitt MD Primary Care Provider Unavaila Herbert Wong Unavailable [phone] Irineo Rivas Unavailable Unavailable Sean Brown Unavailable [phone] Hailey Sotelo Unavailable [phone] Nahed Avelar Unavailable [phone] Allergies Allergen (clinical drug ingredient) Drug/Non Drug [...] a day; Duration: 30 day(s) Not-Taking NYSTATIN 010715 units/mL 5 mL orally, sw jennifer & [...] view and pick correct strength-formul ation from [employer] options. If intended option is not shown, [...] review and pick correct strength-formul ation from [employer] options. If intended option is not shown, [...] SUBCUTANEOUSLY ONCE DAILY DIRECTED; Duration: 30 Not-Taking [id number] - 1 AUGUST APPLIED TOPICALLY 2 TIMES [...] a day; Duration: 90 days Not-Taking Nystatin 692770 UNIT/ML 5 mL orally, swi sh & swallow tid Not-Taking Levothyroxine Sodium 150 MCG 1 tab(s) orally once a day Active Hibiclens 4% 1 AUGUST APPLIED TOPICALLY ONCE; Duration: 1 DAY(S) *Please review and pick correct strength-formul ation from [employer] options. If intended option is not shown, discontinue and re-order from Quick Search* Not-Taking Nystatin 374219 UNIT/ML 4 mL orally 4 ti mes a day Active Pioglitazone HCl 15 MG 1 tab(s) orally once a day Not-Taking traMADol HCl 50 MG 1 tab(s) orally every 4 hours Not-Taking Mounjaro 5 MG/0.5 ML DIRECTED SUBCUTANEOUSLY ONCE A WEEK *Please review and pick correct strength-formul ation from [employer] options. If intended option is not shown, discontinue and re-order from Quick Search* Active Caltrate 600+D Plus Minerals 600-800 MG-UNIT 1 tab(s) orally 2 times a day Not-Taking EPIPEN 2-MAKENZIE 0.3 mg 0.3 mg intramuscularly once; Duration: 30 day(s) Active CETIRIZINE HYDROCHLORIDE 10 mg 1 tab(s) orally once a day Active PROAIR HFA 90 mcg/inh 2 puff(s) inhaled Q4-6 hours, PRN and per the asthma action plan Active MONTELUKAST 10 mg 1 tab(s) orally once a day; Duration: 30 days Active FASENRA 30 mg/mL 30 mg subcutaneously every 8 weeks Active AEROCHAMBER MDI SPACER - MOUTHPIECE (ADULT) N/A As directed PO Per asthma action plan Active Ipratropium Valatie 0.06 % 1 spray Nasally Four times a day; Duration: 30 days As needed Active FLUTICASONE-SALMETEROL 113 mcg-14 mcg/inh 1 INH inhaled 2 times a day; Duration: 30 days Active predniSONE 10 mg 1.5 tab(s) orally [...] review and pick correct strength-formul ation from [employer] options. If intended option is not shown, discontinue and re-order from Quick Search* Active ONE DAILY MULTI-ESSENTIAL MULTIPLE VITAMINS 1 TAB(S) ORALLY ONCE A DAY *Please review for potential replacement for e-prescription and drug interaction check* Not-Taking AMLODIPINE 5 mg 1 tab(s) orally once a day Active Fluticasone-Salmeterol 250-50 MCG/ACT 1 puff Inhalation Twice a day; Duration: 30 days Active EPINEPHRINE TWO-PACK 0.3 MG 0.3 MG INTRAMUSCULARLY ONCE; Duration: 1 DOSE(S) *Please review for potential replacement for e-prescription and drug interaction check* Not-Taking LOSARTAN 50 mg 1 tab(s) orally once a day Active predniSONE 5 mg 10 tab(s) orally once a day Not-Taking Spiriva HandiHaler 18 MCG 1 puff inhaled Qday Not-Taki ng Caltrate 600+D Plus Minerals 600-800 MG-UNIT 1 tab(s) orally 2 times a day Not-Taking FLUoxetine HCl 20 MG 1 cap(s) orally once a day Not-Taking PROAIR HFA 90 MCG/INH 2 PUFFS INHALED Q4-6 HOURS, PRN AND PER THE ASTHMA ACTION PLAN *Please review for potential replacement for e-prescription and drug interaction check* Not-Taking PREDNISONE 10 mg 1.5 tab(s) orally once a day Active DULoxetine HCl 60 MG 1 cap(s) orally once a day Not-Taking Cetirizine HCl [...] review and pick correct strength-formul ation from [employer] options. If intended option is not shown, discontinue and re-order from Quick Search* Not-Taking Spiriva Respimat 1.25 MCG/ACT 2 puff(s) inhaled once a day Not-Taking Lantus 100 UNIT/ML 0 subcutaneously Not-Taking Methotrexate 2.5 MG 7 TAB(S) ORALLY ONCE A WEEK *Please review and pick correct strength-formul ation from [employer] options. If intended option is not shown, discontinue and re-order from Quick Search* 1 Not-Taking MULTIVITAMIN 1 po once a day N ot-Taking BACTRIM DS 800 mg-160 mg 1 tab(s) orally 2 times a day; Duration: 10 day(s) Not-Taking SPIRIVA 18 mcg 1 cap(s) inhaled once a day Not-Taking Omeprazole 40 MG 1 cap(s) orally once a day; Duration: 30 day(s) Not-Taking Fluticasone-Salmeterol 113 MCG-14 MCG/INH 1 INH INHALED 2 TIMES A DAY; Duration: 30 DAY(S) *Please review and pick correct strength-formul ation from [employer] options. If intended option is not shown, [...] once a day Not-Taking HYDROCHLOROTHIAZIDE 25 mg 1 tab(s) orally once a day Active LEVOTHYROXINE 150 mcg (0.15 mg) 1 tab(s) orally once a day Not-Taking DULoxetine HCl 60 MG 1 cap(s) orally once a day; Duration: 30 day(s) Not-Taking BYSTOLIC 10 mg 1 tab(s) orally once a day Active CALTRATE 600 + D 600 mg-800 intl [...] and re-order from Quick Search* Not-Taking NYSTATIN 937122 units/mL 4 mL orally 4 t imes [...] Status Risk Notes Problem Chronic allergic conjunctivitis (74786572) Other chronic allergic conjunctivitis (H10.45) Active confirmed Problem Essential hypertension (55437168) Essential (primary) hypertension (I10) Active confirmed Problem Allergic rhinitis caused by pollen (disorder) (53497611) Allergic rhinitis due to pollen (J30.1) Active confirmed Problem Allergic rhinitis (05808257) Other allergic rhinitis (J30.89) Active confirmed Problem Chronic rhinitis (45149813) Chronic rhinitis (J31.0) Active confirmed Problem Chronic obstructive pulmonary disease (01000217) Chronic obstructive pulmonary disease, unspecified (J44.9) Active confirmed Problem Mild intermittent asthma (983299280) Mild intermittent asthma, uncomplicated (J45.20) Active confirmed Problem Uncomplicated mild persistent asthma (006574059) Mild persistent asthma, uncomplicated (J45.30) Active confirmed Problem Uncomplicated moderate persistent asthma (822521707) Moderate persistent asthma, uncomplicated (J45.40) Active confirmed Problem Uncomplicated severe persistent asthma (889409275) Severe persistent asthma, uncomplicated (J45.50) Active confirmed Problem Adverse effect o f glucocorticoids and synthetic analogues, subsequent encounter (T38.0X5D) Active confirmed Problem Allergic rhinitis caused by animal hair and dander (361210003041308) Allergic rhinitis due to animal (cat) (dog) hair and dander (J30.81) Active confirmed Problem Gastro-esophageal reflux disease without esophagitis (980839427) Gastro-esophageal reflux disease without esophagitis (K21.9) Active confirmed Problem Disorder of vocal cord (00199752) 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) Active confirmed Problem Eosinophilic asthma (773844794) 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) Active confirmed Vital Signs Respiratory Rate 18 /min 05/25/2024 Blood pressure diastolic 78 mm Hg 11/23/2024 Oximetry 97 % 11/23/2024 Height 61.50 in 11/23/2024 Blood pressure systolic 145 mm Hg 11/23/2024 Weight 119.0 lbs 11/23/2024 BMI 22.12 kg/m2 11/23/2024 Encounters Encounter Location Date Provider Diagnosis [address] [address] 11/23/2024 Hailey Young Severe persistent asthma, uncomplicated J45.50 ; Eosinophilic asthma J82.83 ; Chronic obstructive pulmonary disease, unspecified J44.9 ; Hypoxemia R09.02 ; Allergic rhinitis due to pollen J30.1 ; Other allergic rhinitis J30.89 ; Other chronic allergic conjunctivitis H10.45 and Essential (primary) hypertension I10 [facility] [address] [place] [id number] 05/25/2024 Hailey Sotelo Severe persistent asthma, uncomplicated J45.50 ; Eosinophilic asthma J82.83 ; Chronic obstructive pulmonary disease, unspecified J44.9 ; Hypoxemia R09.02 ; Allergic rhinitis due to pollen J30.1 ; Other allergic rhinitis J30.89 ; Other chronic allergic conjunctivitis H10.45 and Essential (primary) hypertension I10 [address] [address] 03/30/2024 Hailey Sotelo Severe persistent asthma, uncomplicated J45.50 ; Eosinophilic asthma J82.83 ; Chronic obstructive pulmonary disease, unspecified J44.9 ; Hypoxemia R09.02 ; Allergic rhinitis due to pollen J30.1 ; Other allergic rhinitis J30.89 ; Other chronic allergic conjunctivitis H10.45 and Essential (primary) hypertension I10 [address] [address] 07/20/2024 Sean Brown Severe persistent asthma, uncomplicated J45.[address] [address] 09/28/2024 Sean Brown Severe persistent asthma, uncomplicated J45.[address] [address] 03/23/2024 Herbert Hancock [address] [address] 07/19/2024 Nahed Avelar Severe persistent asthma, uncomplicated [...] also been compliant on FASENRA therapy 05/25/2024 Eosinophilic asthma (ICD-10 - J82.83) The [...] Severe persistent asthma, uncomplicated (ICD-10 - J45.50) 05/25/2024 Severe persistent asthma, uncomplicated (ICD-10 - [...] Fasenra. - Lungs clear on exam. 11/23/2024 Severe persistent asthma, uncomplicated (ICD-10 - [...] also been compliant on FASENRA therapy 05/25/2024 Chronic obstructive pulmonary disease, unspecified (ICD-10 - J44.9) Continue per pulmonary, Dr. Rivas 03/30/2024 Chronic obstructive pulmonary disease, unspecified (ICD-10 - J44.9) Continue per pulmonary, Dr. Rivas 03/30/2024 Hypoxemia (ICD-10 - R09.02) Off day-time oxygen per pulmonary, saturation stable today 11/23/2024 Chronic obstructive pulmonary disease, unspecified (ICD-10 - J44.9) Continue per pulmonary, Dr. Landis 05/25/2024 Hypoxemia (ICD-10 - R09.02) Off day-time oxygen per pulmonary, saturation stable today 11/23/2024 Hypoxemia (ICD-10 - R09.02) Off day-time [...] Will continue to monitor symptoms off. 05/25/2024 Other allergic rhinitis (ICD-10 - J30.89) [...] including intraocular antihistamine/ma st cell stabilizer, PRN 05/25/2024 Other chronic allergic conjunctivitis (ICD-10 - H10.45) Given ocular signs and symptoms I encouraged allergy avoidance measures and meds as above. If symptoms persist, consider adding additional medications including intraocular antihistamine/ma st cell stabilizer, PRN 05/25/2024 Essential (primary) hypertension (ICD-10 - I10) [...] due to stress over upcoming lumpectomy 11/23/2024 Essential (primary) hypertension (ICD-10 - I10) BP normal today without symptoms of urgency or emergency. Continue serial checks and follow-up with PCP 03/30/2024 Other 07/20/2024 Other 03/23/2024 Other 05/25/2024 Other 09/28/2024 Other Plan Of Treatment Pending Test Test Name Order Date Spirometry 11/23/2024 Insurance Providers Payer Name Payer Address Payer Phone Subscriber Number Group Number Insured Name Patient Relationship to Insured Coverage Start Date Coverage End Date [employer] BEE [address] [address] [place] [address] [id number] Triston Rula Self - patient is the insured [facility] [address] [place] [address] [id number] Triston Rula Self - patient is the insured Medical (General) History Medical History History ICD Code COPD/asthma overlap IDDM Hypothyroidism Hypertension GERD Depression Diverticulitis (with diverticulosis) NOS Herpesviral infection, unspecified Left eye infection - June 2017, July 2017 Left facial cyst, s/p I&D 08/31/17 (Dr. Perez-plastics) Atherosclerotic heart diseas [facility] of [place] coronary artery without angina pectoris Obstructive sleep apnea (adult) (pediatr ic) G47.33 Allergic rhinitis due to pollen J30.1 Other allergic rhinitis J30.89 Other chronic allergic conjunctivitis H1 0.45 Surgical History Surgery Date(Month/Year) Colonoscopy Nov 2016 Cyst removal (face) 08/2017 lumpectomy 04/2024 Hospitalization History Reason Date(Month/Year) Minor stroke 2024 Heart issues/wheezing 12/2020
--- OUTSIDE RECORDS SUMMARY | 2025-01-31 16:52 | XMS_ITS | Clinical Summary ---
Author Organization [facility] Address [address] [place] [phone] Phone Care Team Providers Care Bundle Sorter Name Role Phone Unavailable Primary Care Provider [...] Do not crush or chew. Active Tiotropium [place] Monohydrate (SPIRIVA HANDIHALER IN) Inhale 1 (one) [...] 86.6 kg (191 lb) 04/15/2021 1:13 PM AUTOMOTIVE DISMANTLER Height 157.5 cm (5' 2) 04/15/2021 8:51 AM AUTOMOTIVE DISMANTLER Body Mass Index 34.93 04/15/2021 8:51 AM AUTOMOTIVE DISMANTLER Plan of Treatment Health Maintenance Due Date Last Done Comments Pneumococcal PPSV23/PCV13 65 + Years / Low and Medium Risk (1 of 2 - PCV) 09/30/1993 Influenza Vaccine (#1) 2024 Insurance MEDICARE RAILROAD MEDICARE RAILROAD [facility]
--- OUTSIDE RECORDS SUMMARY | 2025-01-31 16:52 | XMS_ITS | Encounter Summary ---
Author Organization [facility] Address [address] [place] [address] Care Team Providers Care Storeperson Name Role Phone David Pruitt MD Primary Care Provider Aram Oro MD Unavailable [phone] David Fried MD Unavailable Chema Foreman MD Unavailable Lobo Driscoll DO Unavailable [phone] Encounter Details Date Type Department Care Team (Late st Contact Info) Description 08/07/2024 Orders Only [facility] [address] [place] [address] Scanning, Provider Social History Tobacco Use Types Packs/Day Years Used Date Smoking Tobacco: Former Smokeless Tobacco: Never Comments:Quit 1996 Alcohol Use Standard Drinks/Week Comments No 0 (1 standard drink = 0.6 oz pur e alcohol) [facility] Utilities Answer Date Recorded In the past 12 months has [employer], gas, oil, or water [employer] threatened to shut off services in your home? No 06/05/2024 Social Connection and Isolation Panel Answer Date Recorded In a typical week, how many times do you talk on the phone with family, friends, or neighbors? More than three times a week 06/05/2024 How often do you get togethe r with friends or relatives? Twice a week 06/05/2024 How often do you attend [facility] or method[facility] services? Never 06/05/2024 Do you belong to [...] any time in the past 12 [facility], were you homeless or living in a correction (including now)? No 06/05/2024 Personal Safety Answer Date Recorded Have you ever been in or are you currently in a harmful physical or emotional relationship or is someone making you feel afraid or unsafe? Denies 06/02/2024 Comments No Sex and Gender Information Value Date Recorded Sex Assigned at Not on file Legal Sex Female 12:20 AM RANGE MOUNTER Gender Identity Female 12/31/2023 2:40 PM CDT [...] documented as of this encounter Care Teams Storeperson Relationship Specialty Start Date End Date David Pruitt MD [address] [facility] [address] [place] [address] PCP - General Family Medicine 06/30/17 Aram Oro MD [address] [facility] [address] [place], [place] [id number] Surgeon Surgery 02/29/24 David Fried MD [address] [facility] [address] [place], [place] [phone] Radiation Oncologist Radiation Oncology 02/29/24 Chema Foreman MD [address] [facility] [address] [place] [address] Consulting Physician Interventional Cardiology 03/17/24 Lobo Driscoll DO [address] [facility] [address] [place] [address] Medical Oncologist/Poultry Feed Supervisor Hematology and Oncology 09/06/24 documented as of this encounter
--- OUTSIDE RECORDS SUMMARY | 2025-01-31 16:52 | XMS_ITS | Clinical Summary ---
Author Organization [facility] Address [address] [place] [address] Phone Care Team Providers Care [employer] Name Role Phone David Pruitt MD Primary Care Provider [phone] Allergies Active Allergy Reactions Criticality Noted Date Comments Atorvastatin Muscle Pain Medium 01/01/2019 Myalgias on atorvastatin 20 mg Celecoxib Hives High 04/20/2024 Fish Oil Hives High 04/20/2024 Flecainide Other (See Comments) Low 01/21/2021 QT prolongation Iodinated Contrast Media Other (See Comments) Medium 06/30/2017 Dizzy, hot, nauseated, no hives or wheezing. Metformin Other (See Comments) 04/20/2024 Chest pain Laveen-3 Fatty Acids Hives,Rash High 01/27/2018 Prednisone Other [...] mouth daily. 30 Tablet 04/22/2024 1:32 PM ROCK LOADER 5 Active albuterol sulfate HFA 90 mcg/actuation [...] Encounters Date Type Department Care Team Description 01/02/2025 11:15 AM ROCK LOADER Office Visit [facility] Heart and Vascular Surgery [address] [facility] [address] [address] [facility] [address] [place] [address] Elodia Quinn MD Bilateral carotid artery stenosis (Primary Dx) 01/02/2025 9:53 AM ROCK LOADER - 01/02/2025 11:59 PM ROCK LOADER Hospital Encounter [facility] Heart and Vascular Testing [facility] [address] [facility] [address] [place] [address] Elodia Quinn MD Discharge Disposition: Home or [...] on file Legal Sex Female 3:10 PM ROCK LOADER Gender Identity Not on file Sexual Orientation Not on file Last Filed Vital Signs Vital Sign Reading Time Taken Comments Blood Pressure 120/77 01/02/2025 11:14 AM ROCK LOADER Pulse 88 01/02/2025 11:14 AM ROCK LOADER Temperature 36.8 C (98.2 F) 01/02/2025 11:14 AM ROCK LOADER Respiratory Rate 18 04/22/2024 12:42 PM ROCK LOADER Oxygen Saturation 98% 01/02/2025 11:14 AM ROCK LOADER Inhaled Oxygen Concentration - - Weight 52.2 kg (115 lb) 01/02/2025 11:14 AM ROCK LOADER Height 154.9 cm (5' 1) 01/02/2025 11:14 AM ROCK LOADER Body Mass Index 21.73 01/02/2025 11:14 AM ROCK LOADER Plan of Treatment Health Maintenance Due Date [...] Name Priority Date/Time Associated Diagnosis Comments US CAROTID DOPPLER Routine 01/02/2025 10 :47 AM ROCK LOADER Bilateral carotid artery stenosis LIPID PANEL Routine 04/21/2024 1:22 AM ROCK LOADER HEMOGLOBIN A1C Routine 04/20/2024 10:39 PM ROCK LOADER from Last 3 Months or Most Recently Relevant to Health Maintenance Results * US CAROTID DOPPLER (01/02/2025 10:47 AM ROCK LOADER) Anatomical Region Laterality Modality Neck Ultrasound 01/02/2025 10:0 6 AM ROCK LOADER Narrative 01/02/2025 5:02 PM ROCK LOADER [facility] Heart and Vascular Testing Cerebrovascular Exam Carotid Duplex Patient: Rula Goldstein Study ID: [id number] Gender: F : 1945 Age: 79 Race: CAU Height 154.9cm Study Date: 01/02/2025 Weight: 56.2kg Access. #: [id number] *Referring Physician:Elodia Briceño Melanie *Ordering Physician:Elodia Briceño *Supervisor Cartography:Steve Whittington RVT, RVS Indications: Bilateral carotid artery stenosis. History: PMH: No prior study is available for comparison. Study data: Study status: Routine. Procedure: A vascular evaluation was performed. Carotid duplex study was performed using real-time imaging coupled with Doppler flow analysis. Carotid duplex study. Complete study and Doppler flow study including spectral analysis, color and grover scale imaging. Birthdate: Patient birthdate: 1945. Age: Patient is 79year(s) old. Sex: gender: female. Height: 154.9cm. 61in. Weight: 56.2kg. : 124lb. Body mass index: BMI: 23.4kg/m^2. Body surface area: BSA: 1.56m^2. Study date: Study date: 01/02/2025. Study time: 10:06 AM. Patient status: Outpatient. Impressions 1. The bilateral vertebral arteries are patent with normal antegrade flow. 2. Study suggests mild atherosclerosis involving the right common carotid artery. 3. Study suggests mild, mixed atherosclerosis involving the right carotid artery bifurcation and the right internal carotid artery consistent with a 0-49% stenosis. 4. Appearance of <50% stenosis involving the right external carotid artery. 5. Study suggests mild atherosclerosis involving the left common carotid artery. 6. Study suggests mild, mixed atherosclerosis involving the left carotid artery bifurcation and the left internal carotid artery consistent with a 0-49% stenosis. 7. Appearance of >=50% stenosis involving the left external carotid artery. 8. Bilateral internal carotid arteries appear slightly tortuous in the mid to distal segments. Tables: Physiologic examination: Left brachial pressure not obtained due to history of breast cancer Brachial pressures: +--------+--------+ ! !Right ! +--------+--------+ !Systolic!130mm Hg! +--------+--------+ Arterial: + +-----+----+ !Location !V sys!V ed! + +-----+----+ !Right CCA - proximal!57 !14.7! + +-----+----+ !Right CCA - distal !45.7 !14.3! + +-----+----+ !Right ICA - proximal!86 !20.1! + +-----+----+ !Right ICA - mid !101 !23 ! + +-----+----+ !Right ICA - distal !86.7 !24.7! + +-----+----+ !Right ECA !-109 !----! + +-----+----+ !Right vertebral !61 !10.1! + +-----+----+ !Left CCA - proximal !57.5 !12.3! + +-----+----+ !Left CCA - distal !68.5 !15.4! + +-----+----+ !Left ICA - proximal !87.6 !21.7! + +-----+----+ !Left ICA - mid !109 !24.3! + +-----+----+ !Left ICA - distal !106 !24.2! + +-----+----+ !Left ECA !166 !----! + +-----+----+ !Left vertebral !43.2 !6.4 ! + +-----+----+ *Velocities are expressed in cm/s, Diameters are expressed in cm Velocity ratios: + +-----+-----+ ! !R PSV!L PSV! + +-----+-----+ !Max ICA/distal CCA!2.21 !1.59 ! + +-----+-----+ Prepared and Electronically Authenticated Elodia Quinn [id number] Procedure Note Elodia Quinn MD - 01/02/2025 [facility] Cerebrovascular Exam Carotid Duplex Patient: Rula Goldstein Study ID: [id number] Gender: F : 1945 Age: 79 Race: CAU Height 154.9cm Study Date: 01/02/2025 Weight: 56.2kg Access. #: [id number] *Referring Physician:Elodia Briceño Melanie *Ordering Physician:Elodia BriceñoSupervisor Cartography:Steve Whittington RVT, RVS Indications: Bilateral carotid artery stenosis. History: PMH: No prior study is available for comparison. Study data: Study status: Routine. Procedure: A vascular evaluationwas performed. Carotid duplex study was performed using real-time imagingcoupled with Doppler flow analysis. Carotid duplex study. Complete studyand Doppler flow study including spectral analysis, color and grover scaleimaging. Birthdate: Patient birthdate: 1945. Age: Patient is 79year(s)old. Sex: gender: female. Height: 154.9cm. 61in. Weight: 56.2kg. : 124lb. Body mass index: BMI: 23.4kg/m^2. Body surface area: BSA: 1.56m^2. Study date: Study date: 01/02/2025. Study time: 10:06 AM.Patient status: Outpatient. Impressions 1. The bilateral vertebral arteries are patent with normal antegradeflow. 2. Study suggests mild atherosclerosis involving the right commoncarotid artery. 3. Study suggests mild, mixed atherosclerosis involving the rightcarotid artery bifurcation and the right internal carotid artery consistentwith a 0-49% stenosis. 4. Appearance of <50% stenosis involving the right external carotidartery. 5. Study suggests mild atherosclerosis involving the left common carotid artery. 6. Study suggests mild, mixed atherosclerosis involving the left carotid artery bifurcation and the left internal carotid artery consistent witha 0-49% stenosis. 7. Appearance of >=50% stenosis involving the left external carotidartery. 8. Bilateral internal carotid arteries appear slightly tortuous in the midto distal segments. Tables: Physiologic examination: Left brachial pressure not obtained due tohistory of breast cancer Brachial pressures: +--------+--------+ ! !Right ! +--------+--------+ !Systolic!130mm Hg! +--------+--------+ Arterial: + +-----+----+ !Location !V sys!V ed! + +-----+----+ !Right CCA - proximal!57 !14.7! + +-----+----+ !Right CCA - distal !45.7 !14.3! + +-----+----+ !Right ICA - proximal!86 !20.1! + +-----+----+ !Right ICA - mid !101 !23 ! + +-----+----+ !Right ICA - distal !86.7 !24.7! + +-----+----+ !Right ECA !-109 !----! + +-----+----+ !Right vertebral !61 !10.1! + +-----+----+ !Left CCA - proximal !57.5 !12.3! + +-----+----+ !Left CCA - distal !68.5 !15.4! + +-----+----+ !Left ICA - proximal !87.6 !21.7! + +-----+----+ !Left ICA - mid !109 !24.3! + +-----+----+ !Left ICA - distal !106 !24.2! + +-----+----+ !Left ECA !166 !----! + +-----+----+ !Left vertebral !43.2 !6.4 ! + +-----+----+ *Velocities are expressed in cm/s, Diameters are expressed in cm Velocity ratios: + +-----+-----+ ! !R PSV!L PSV! + +-----+-----+ !Max ICA/distal CCA!2.21 !1.59 ! + +-----+-----+ Prepared and Electronically Authenticated Elodia Quinn [id number] us Elodia Quinn MD ORDERABLES Final Resul t * (ABNORMAL) LIPID PANEL (04/21/2024 1:22 AM ROCK LOADER) [facility] CHOLESTEROL 99 <200 mg/dL 04/21/2024 2:[address] [facility] TRIGLYCERIDE 90 <150 mg/dL 04/21/2024 2:26 AM ROCK LOADER [facility] HDL 39(L) 40 - 59 mg/dL 04/21/2024 2:26 AM [facility] LDL CALCULATED 42 <100 mg/dL 04/21/2024 2:26 AM [facility] NON-HDL CHOLESTEROL 60 <130 mg/dL 04/21/2024 2:26 AM [facility] Blood Venipuncture / Unknown 04/21/2024 1:22 AM ROCK LOADER 04/21/2024 1:49 AM [facility] - 04/21/2024 2:26 AM ROCK LOADER TOTAL CHOLESTEROL mg/dL Desirable <200 Borderline high [...] Lanza MD CHEMISTRY ORDERABLES Final Resul t [facility]# [id number] [address] [facility] [place], [place] [address] * (ABNORMAL) HEMOGLOBIN A1C (04/20/2024 10:39 PM ROCK LOADER) HEMOGLOBIN A1C 6.9(H) <5.7 % 04/20/2024 11:22 PM [facility] EST. AVG GLUCOSE, A1C 151 mg/dL 04/20/2024 11:22 PM [facility] Blood Venipuncture / Unknown 04/20/2024 10:39 PM ROCK LOADER 04/20/2024 10:49 PM ROCK LOADER Narrative [facility] - 04/20/2024 11:22 PM ROCK LOADER HGB A1C INTERPRETATION NORMAL: <5.7% PRE-DIABETES: 5.7 - 6.4% DIABETES: 6.5% OR GREATER Keny Lanza MD CHEMISTRY ORDERABLES Final Resul t [facility] CLIA# [id number] [address] [place] [address] from Last 3 Months or Most Recently Relevant to Health Maintenance Insurance MEDIC[place] [address] [address] [place] [id number] RX [employer] RX Member Subscriber Plan / Payer (Ef fective 2015-Present) Name:Rula Goldstein Relation to Subscriber:Self Name:Rula Goldstein Payer ID:Not on file Group ID:[id number] Type:RX Medicare Part D Address: [address] Advance Directives For more information, please contact: [phone] * Default Full Code - Needs Discussion (Latest Code Status on File) Date Activated Date Inactivated Comments 04/20/2024 10:20 PM 04/22/2024 3:48 PM Care Teams [employer] Relationship Specialty Start Date End Date David Pruitt MD [address] [facility] [address] [place] [address] PCP - General Family Practice 05/05/24
--- OUTSIDE RECORDS SUMMARY | 2025-01-31 16:52 | XMS_ITS | Clinical Summary ---
Author Organization [facility] Address [address] [place] [address] Care Team Providers Care School L[employer] Monitor Name Role Phone David Pruitt MD Primary Care Provider [phone] Active Problems Problem Noted Date Diagnosed Date Bilateral hip bursitis 09/08/2019 Encounters Date Type Department Care Team Description 12/19/2024 3:05 PM CDT - 12/19/2024 11:59 PM CDT Hospital Encounter [facility] [address] [place] [address] Ivonne Mcguire MD Discharge Disposition: Home or Self Care (Routine Discharge) 12/19/2024 Orders Only [facility] [address] [place] [address] Ivonne Mcguire MD 12/19/2024 Travel from Last [...] - 99 MG/DL 12/19/2024 4:15 PM CDT [facility] BUN 9 7 - 18 MG/DL 12/19/2024 4:15 PM CDT [facility] CREATININE S/P/B 0.60 0.55 - 1.02 MG/DL 12/19/2024 4:15 PM CDT [facility] SODIUM S/P/B 130(L) 136 - 145 MMOL/L 12/19/2024 4:15 PM CDT [facility] POTASSIUM S/P/B 3.4(L) 3.5 - 5.1 MMOL/L 12/19/2024 4:15 PM CDT [facility] CHLORIDE S/P/B 92(L) 100 - 108 MMOL/L 12/19/2024 4:15 PM CDT [facility] CO2 28.6 21 - 32 MMOL/L 12/19/2024 4:15 PM CDT [facility] CALCIUM S/P/B 8.7 8.5 - 10.1 MG/DL 12/19/2024 4:15 PM T [facility] ANION GAP 9.4 5 - 15 MMOL/L 12/19/2024 4:15 PM T [facility] BUN CREATININE RATIO 15.0 6 - 26 12/19/2024 4:15 PM T [facility] GFR ESTIMATE >90 >90 ML/MIN/1.7 3 M2 12/19/2024 4:15 PM T [facility] Comment: NOTE: eGFR is not calculated for patients <18 years of age. This is an estimated GFR calculation using the new CKD EPI creatinine equation without race and so does not require a correction factor for race. This estimated GFR should not be used for calculating drug doses. 12/19/2024 3:49 PM CDT Ivonne Mcguire MD LABORATORY Final Result [facility] [address] [place] [id number], [place] [phone] * (ABNORMAL) HEPATIC FUNCTION PANEL (12/19/2024 3:49 PM CDT) TOTAL PROTEIN S/P/B 7.3 6.4 - 8.2 G/DL 12/19/2024 4:15 PM CDT [facility] ALBUMIN S/P/B 3.5 3.4 - 5.0 G/DL 12/19/2024 4:15 PM CDT [facility] BILIRUBIN TOTAL S/P/B 0.7 0.2 - 1.2 MG/DL 12/19/2024 4:15 PM CDT [facility] BILIRUBIN DIRECT S/P/B 0.2 0.0 - 0.20 MG/DL 12/19/2024 4:15 PM CDT [facility] BILIRUBIN INDIRECT S/P/B 0.5 0.0 - 0.9 MG/DL 12/19/2024 4:15 PM CDT [facility] ALKALINE PHOSPHATASE S/P/B 135 50 - 136 U/L 12/19/2024 4:15 PM CDT [facility] AST 19 15 - 37 U/L 12/19/2024 4:15 PM CDT [facility] ALT 17 14 - 55 U/L 12/19/2024 4:15 PM CDT [facility] A/G RATIO 0.9(L) 1.0 - 2.0 RATIO 12/19/2024 4:15 PM CDT [facility] 12/19/2024 3:49 PM CDT us Ivonne Mcguire MD LABORATORY Final Result [facility] [address] [place] [address], [place] [phone] * (ABNORMAL) CBC W/DIFF AUTOMATED (12/19/2024 3:49 PM CDT) [facility] WBC 7.93 4.4 - 11.0 x10'3/uL 12/19/2024 4:00 PM CDT [facility] RBC 4.07(L) 4.50 - 5.10 x10'6/uL 12/19/2024 4:00 PM CDT [facility] HGB 10.3(L) 12.3 - 15.3 G/DL 12/19/2024 4:00 PM CDT [facility] HCT 32.2(L) 35.9 - 44.6 % 12/19/2024 4:00 PM CDT [facility] MCV 79.1(L) 80.0 - 96.0 FL 12/19/2024 4:00 PM CDT [facility] MCH 25.3 25.3 - 30.9 PG 12/19/2024 4:00 PM T [facility] MCHC 32.0 31.0 - 34.1 G/DL 12/19/2024 4:00 PM T [facility] RDW 20.6(H) 12.4 - 15.1 % 12/19/2024 4:00 PM T [facility] PLT 274 151 - 353 x10'3/uL 12/19/2024 4:00 PM T [facility] MPV 9.6 9.6 - 12.0 FL 12/19/2024 4:00 PM T [facility] RBC MORPHOLOGY NORMAL 12/19/2024 4:00 PM T [facility] PLT MORPH. NORMAL 12/19/2024 4:00 PM T [facility] WBC MORPHOLOGY NORMAL 12/19/2024 4:00 PM CDT [facility] LYMPHOCYTES % 13.6(L) 15.8 - 45.0 % 12/19/2024 4:00 PM CDT [facility] NEUTROPHILS % 78.4(H) 42.1 - 71.9 % 12/19/2024 4:00 PM CDT [facility] MONOCYTES % 7.6 5.7 - 12.5 % 12/19/2024 4:00 PM CDT [facility] EOSINOPHILS 0.0 0.0 - 5.6 % 12/19/2024 4:00 PM CDT [facility] BASOPHILS 0.1 0.0 - 1.3 % 12/19/2024 4:00 PM CDT [facility] ABS. NEUTROPHILS 6.22(H) 1.40 - 6.00 x10'3/uL 12/19/2024 4:00 PM CDT [facility] IMMATURE GRANS % 0.3 0.0 - 0.5 % 12/19/2024 4:00 PM CDT [facility] ABS. LYMPHOCYTES 1.08 0.80 - 4.70 x10'3/uL 12/19/2024 4:00 PM CDT [facility] 12/19/2024 3:49 PM CDT Ivonne Mcguire MD LABORATORY Final Result [facility] [address] [place] [address], from Last [address] [place] [address] [address] MEDICARE [employer] Care Teams School Lunch Monitor Relationship Specialty Start Date End Date David Pruitt MD [address] [place] [address] PCP - General FAMILY PRACTICE 10/09/21
--- OUTSIDE RECORDS SUMMARY | 2025-01-31 16:52 | XMS_ITS | Encounter Summary ---
Author Organization [facility] Healthcare Address [address] [place] [address] Care Team Providers Care Arc Welder Name Role Phone David Pruitt MD Primary Care Provider Aram Oro MD Unavailable [phone] David Fried MD Unavailable [phone] Chema Foreman MD Unavailable [phone] Lobo Driscoll DO Unavailable [phone] Encounter Details Date Type Department Care Team (Late st Contact Info) Description 01/16/2024 Orders Only [facility] Health Information Management [address] [place] [address] Scanning, Provider Social History Tobacco Use Types [...] often do you attend chur ch or cheondoism services? Never 06/05/2024 Do you belong to any clubs o r organizations such as confucianism groups, unions, fraternal or athletic groups, or [...] in the past 12 m [facility], were you homeless or living in a prison (including now)? No 06/05/2024 Social Connection and Isolation Panel Answer Date Recorded In a typical week, how many times do you talk on the phone with family, friends, or neighbors? More than three times a week 01/17/2025 How often do you get togethe r with friends or relatives? Twice a week 01/17/2025 How often do you attend chur ch or cheondoism services? Never 01/17/2025 Do you belong to any clubs o r organizations such as confucianism groups, unions, fraternal or athletic groups, or [...] in the past 12 m [facility], were you homeless or living in a prison (including now)? No 01/17/2025 [facility] Utilities Answer Date Recorded In the [...] unsafe? Patient unable to answer 01/15/2025 Comments Unknown Sex and Gender Information Value Date Recorded Sex Assigned at Not on file Legal Sex Female 12:20 AM QUALITY LEAD Gender Identity Female 12/31/2023 2:40 PM CDT Sexual Orientation Asexual 12/31/2023 2: 43 PM CDT documented as of this encounter Functional Status * Difference in Last Two Carson Scores Answer Date of Assessment Author 0 01/18/2025 7:24 PM Jose Luis Landers RN * Ball Fall Risk Question Answer Date of Assessment Author History of Falling 25 01/18/2025 7:24 PM Sanchez Landers RN Secondary Diagnosis 15 01/18/2025 7:24 PM Sanchez Medina RN Ambulatory Aids 15 01/18/2025 7:24 PM Sanchez Renteria RN Intravenous Therapy/Heparin/Saline Lock 20 01/18/2025 7:24 PM Jose Luis Landers RN Gait/Transferring 10 01/18/2025 7:24 PM Sanchez Landers RN Mental Status 0 01/18/2025 7:24 PM Sanchez Landers RN Morse Fall Risk Score (Score >= 45 places fall precaution order) 85 01/18/2025 7:24 PM Sanchez Landers Ala, RN Prior Fall Event (Autopopulated from EMR) None found 01/18/2025 7:24 PM Stephen Landers RN * Carson Scale Question Answer Date of Assessment Author Sensory Perceptions 4 01/18/2025 7:24 PM Sanchez Medina RN Moisture 4 01/18/2025 7:24 PM Sanchez Landers RN Activity 3 01/18/2025 7:24 PM Sanchez Landers RN Mobility 3 01/18/2025 7:24 PM Sanchez Landers RN Nutrition 3 01/18/2025 7:24 PM Sanchez Landers RN Friction and Shear 3 01/18/2025 7:24 PM Sanchez Landers RN Carson Scale Score 20 01/18/2025 7:24 PM Sanchez Landers RN * BP Location Answer Date of Assessment Author Right arm 01/19/2025 11:59 AM Dena Rainey * MAP (mmHg) Answer Date of Assessment Author 71 01/19/2025 11:59 AM Dena Rainey * Question Answer Date of Assessment Author BP Method Automatic 01/19/2025 11:59 AM QUALITY LEAD Dena El * Fall Risk Interventions Question Answer Date of Assessment Author All Low Fall Interventions Applied Yes 01/18/2025 7:24 PM Sanchez Landers RN All Moderate Fall Interventions Applied Yes 01/18/2025 7:24 PM Sanchez Landers RN All High Fall Risk Interventions Applied Yes 01/18/2025 7:24 PM Sanchez Landers RN All High Risk Interventions EXCEPT: Bed alarm 05/07/2024 9:00 AM CDT Alvin Richard Additional Interventions Applied Bed/chair alarm;Bedside commode 01/18/2025 7:24 PM Sanchez Landers RN * Question Answer Date of Assessment Author OT Functional Mobility Patient completed sit to stand from EOB with CGA, stand to sit onto chair and sit <> stand from standard toilet with Leticia and cues for proper hand placement and transitioning of hands up to walker and proper placement. Patient completed functional mobility in/out of bathroom utilizing walker with CGA with forward flexed posture. 01/19/2025 8:23 AM Halie White COTA OT Self Care Patient was incontin ent of urine and required a CHG bath. Patient completed CHG bath sitting on toilet with UB with independence and LB with ModA. Patient don/doff bilateral socks with MaxA and educated patient on use of AE for LB dressing but stated she has help at home. Patient Patient doff depens with Leticia and donning to knee level with ModA and over hips with Leticia and cues for good base of support and one handed technique. Patient stood in front of sink to wash hands with CGA for balance/safety. 01/19/2025 8:23 AM Halie White COTA OT Cognition Intact. 06/05/2024 11:18 AM CDT Shilpa Schroeder OT OT Communication Intact. 06/05/2024 11:1 8 AM CDT Shilpa Schroeder OT * B.M.A.T. - Bedside Mobility Assessment Tool for Nurses Question Answer Date of Assessment Author Is patient able to participate in the BMAT? Yes 01/17/2025 9:35 PM Jc Brunson RN Reason patient is unable to participate in BMAT Bed rest orders 06/08/2024 10:00 AM Shae Ag RN BMAT Level Level 3 - Yellow 01/17/2025 9:35 PM Melissa Flores, ADOLPH Level 3 Equipment Use assistive device such as cane/walker 01/17/2025 9:35 PM Melissa Brunson, ADOLPH * Question Answer Date of Assessment Author 1. Has the patient self-repo rted, presented with clinical signs of, or have a documented history of any of the following within the past 30 days? No 01/15/2025 10:45 PM Salima Mckenna RN * Question Answer Date of Assessment Author Is the patient being treated today because it is known or suspected that they prepared, started, or tried to end their life? No 01/15/2025 3:06 PM Shana Guillen RN * Question Answer Date of Assessment Author 1. In the past month, have y ou wished you were or that you could go to sleep and not wake up? No 01/15/2025 3:06 PM Shana Guillen RN 2. In the past month, have y ou actually had any thoughts of killing yourself? No 01/15/2025 3:06 PM Shana Guillen RN 6. Have you ever done anythi ng, started to do anything, or prepared to do anything to end your life? No 01/15/2025 3:06 PM Shana Guillen RN * Suicide Risk Level Answer Date of Assessment Author No risk level 01/15/2025 3:06 PM Shana Guillen RN * Self-Injurious Risk Level Answer Date of Assessment Author No risk level 01/15/2025 10:45 PM Salima Mckenna RN * Pressure Injury Prevention Question Answer Date of Assessment Author Pressure Ulcer Prevention Interventions Keep skin clean and dry (Sensory Perception/Moisture);Tyrone ce on pressure redistribution surface (Sensory Perception/Activity/Mobi lity);Use draw sheet when pulling patient up in bed (Friction & Shear);Float Heels (Activity/Mobility);Use pillows/wedge for positioning (Activity/Mobility) 01/18/2025 7:24 PM Sanchez Landers, ADOLPH 2 Nurse Skin Assessment Angelic/Salima FARFAN 01/15 10:45 PM Salima Mckenna RN Protective Foam Dressing Location Coccyx 01/18/2025 7:24 PM Sanchez Landers, ADOLPH Special Mattress Low air loss 01/18/2025 7:24 PM Sanchez Landers, ADOLPH * Transdermal Patch Admission Assessment Question Answer Date of Assessment Author Transdermal Patch Assessment on Admission Not Present 01/15/2025 10:45 PM Salima Mckenna RN * AUDIT-C Score Answer Date of Assessment Author 0 03/29/2024 2:49 PM Jazzmine Fry RN * Alcohol Use Question Answer Date of Assessment Author Q1: How often do you have a drink containing alcohol? Never 03/29/2024 2:49 PM Jazzmine Fry RN Q2: How many drinks containing alcohol do you have on a typical day when you are drinking? Patient does not drink 11/27/2024 3:55 PM CDT Vera Dela Cruz Q3: How often do you have six or more drinks on one occasion? Never 03/29/2024 2:49 PM Jazzmine Fry RN * Integumentary Question Answer Date of Assessment Author Integumentary (WDL) X 05/30/2024 10:57 PM C Letha Spicer * Fall Risk Assessment Tool - MEDFRAT Question Answer Date of Assessment Author Prior Fall Event (Autopopulated from EMR) None found 01/15/2025 3:11 PM Mariella Guillen RN Pt needs supervision/assistance with ambulation? (makes patient High risk) Yes 01/15/2025 3:11 PM Shana Guillen RN History of falling in last 3 months, including since admission 0 01/15/2025 3:11 PM Shana Giullen RN Confusion or disorientation 5 01/15/2025 3: 11 PM Shana Guillen RN Intoxicated or sedated 0 01/15/2025 3:11 PM Shana Guillen RN Impaired gait 1 01/15/2025 3:11 PM HORTENCIA Spro useShana RN Mobility assist device used 1 01/15/2025 3: 11 PM Shana Guillen RN Altered elimination 1 01/15/2025 3:11 PM CS T Shana Schulz RN Fall risk score: (1-2 low risk), (3-4 moderate risk), (5 or more high risk) 8 01/15/2025 3:11 PM Shana Guillen RN Interventions - GENERAL USE as needed call light in reach;yellow arm band 01/15/2025 3:11 PM Shana Guillen RN * Fall Interventions Question Answer Date of Assessment Author Interventions HIGH RISK patient/family education;call light in reach;bed low/locked;yellow arm band (HIGH RISK);gripper socks 01/15/2025 3:34 PM QUALITY LEAD Nelly Calle RN * Integumentary Question Answer Date of Assessment Author Skin Color Appropriate for ethnicity 01/18/2025 7:24 PM Sanchez Landers RN Skin Condition/Temp Warm;Dry 01/18/2025 7 :24 PM Sanchez Landers RN Skin Integrity Blanchable redness 01/18/2025 7: 24 PM Sanchez Landers RN Skin Turgor Epidermis thin with loss of subcutaneous tissue 01/18/2025 7:24 PM Sanchez Landers RN Integumentary Additional Assessments Yes-Carson 01/18/2025 9:30 AM QUALITY LEAD Thu Gregory RN Integumentary (WDL) X 01/18/2025 7 :24 PM Sanchez Landers RN Skin Location coccyx 01/18/2025 7:24 PM Sanchez Landers RN * Carson Scale Question Answer Date of Assessment Author Carson Scale Used Carson 04/07/2024 10:54 AM QUALITY LEAD Forrest Spann, ADOLPH * Question Answer Date of Assessment Author Appetite Good 01/17/2025 9:35 PM QUALITY LEAD Melissa Salvador, ADOLPH Percent Snack Eaten (%) 100 04/07/2024 4:40 P M QUALITY LEAD Gabby Miranda RN Diet Supplement Name/Percent Consumed % 0 06/07/2024 4:29 PM CDT Santo Navarrete * BP Location Answer Date of Assessment Author Right arm 01/19/2025 11:59 AM QUALITY LEAD Dena Toney * Question Answer Date of Assessment Author BP Method Automatic 01/19/2025 11:59 AM QUALITY LEAD Dena El * Percent Meal Eaten (%) Answer Date of Assessment Author 75 01/18/2025 6:17 PM QUALITY LEAD Jad Gregory, ADOLPH * Fall Risk Interventions Question Answer Date of Assessment Author All Low Fall Interventions Applied Yes 01/18/2025 7:24 PM Sanchez Landers RN All Moderate Fall Interventions Applied Yes 01/18/2025 7:24 PM Sanchez Landers RN All High Fall Risk Interventions Applied Yes 01/18/2025 7:24 PM Sanchez Landers RN All High Risk Interventions EXCEPT: Bed alarm 05/07/2024 9:00 AM CDT Alvin Richard Additional Interventions Applied Bed/chair alarm;Bedside commode 01/18/2025 7:24 PM QUALITY LEAD Sanchez Bran RN * Question Answer Date of Assessment Author Hygiene Protective foam dressing changed;Skin cleanser 01/18/2025 3:00 AM Melissa Brunson RN Toileting: Level of assistance Dependent 01/18/2025 3:00 AM QUALITY LEAD Jc Hebert RN * ADL Screening Question Answer Date of Assessment Author Patient's Vision Adequate to Safely Complete Daily Activities Yes 01/15/2025 10:45 PM Salima Mckenna RN Patient's Judgement Adequate to Safely Complete Daily Activities Yes 01/15/2025 10:45 PM Salima Mckenna RN Patient's Memory Adequate to Safely Complete Daily Activities Yes 01/15/2025 10:45 PM Salima Mckenna RN Patient Able to Express Needs/Desires Yes 01/15/2025 10:45 PM Salima Mckenna RN Dressing Independent 01/15/2025 10:45 PM Salima Keene RN Grooming Independent 01/15/2025 10:45 PM Salima Keene RN Feeding Independent 01/15/2025 10:45 PM Salima Keene RN Bathing Independent 01/15/2025 10:45 PM Salima Keene RN Toileting Independent 01/15/2025 10:45 PM Salima Keene RN In/Out Bed Independent 01/15/2025 10:45 PM Salima Keene RN Walks in Home Independent 01/15/2025 10:45 PM Salima Lombardi McM, RN Weakness of Legs Both 01/15/2025 10:45 PM Salima Mckenna RN Weakness of Arms/Hands None 01/15/2025 10:45 P M Salima Mckenna RN Hearing - Right Ear Functional 01/15/2025 10:[address] Salima Mendez RN Hearing - Left Ear Functional 01/15/2025 10:45 PM CS T Salima Mendez RN Dominant hand? Right 01/15/2025 10:45 PM Salima Kumar RN Decline in ADLs in last 2 weeks? No 01/15/2025 10:45 PM Salima Mckenna RN * Therapy Consults Question Answer Date of Assessment Author PT Evaluation Needed 1 01/15/2025 10:45 PM Salima Mckenna RN OT Evaluation Needed 1 01/15/2025 10:45 PM Salima Mckenna RN IRRIGATION SERVICE TECHNICIAN Evaluation Needed 2 01/15/2025 10:45 PM Salima Mckenna RN * Assistive Devices Question Answer Date of Assessment Author Assistive Devices/DME Walker 01/15/2025 10:45 PM Salima Mckenna RN * Question Answer Date of Assessment Author Self Harm/Suicidal Ideation Plan No 01/18/20 4:14 PM Alicia Salmon MSW Previous Self Harm/Suicidal Attempts No 01/17/2025 4:14 PM Alicia Salmon M SW Current Plans to Harm Another No 01/17/2025 4:14 PM Alicia Salmon MSW Previous Plans to Harm Another None 01/17/2025 4:14 PM QUALITY LEAD Alicia Michel MSW * Nutrition Question Answer Date of Assessment Author Feeding Level of Assistance Able to feed self 01/17/2025 9:35 PM QUALITY LEAD Jc Hebert, ADOLPH * Speech/Swallow Screening Question Answer Date of Assessment Author Currently, does patient have difficulty swallowing; coughing/choking while swallowing, or feels like food is sticking No 01/15/2025 10:45 PM Salima Mckenna RN In the past two weeks has the patient had changes in speaking or ability to comprehend conversation No 01/15/2025 10:45 PM Salima Mckenna RN Currently, does patient require thickened liquids or dysphagia diet No 01/15/2025 10:45 PM Salima Mckenna RN Patient is in need of IRRIGATION SERVICE TECHNICIAN Order: No IRRIGATION SERVICE TECHNICIAN order needed from this assessment 01/15/2025 10:45 PM Salima Mckenna RN * Hygiene Question Answer Date of Assessment Author Oral Care Denture care 06/06/2024 8:00 AM CDT Vamsi Helton Hygiene Level of Assistance Patient refused 01/18/2025 8:42 PM Arvind Monge Toileting: Assistance with Bedside commode 01/19/2025 12:16 PM Dena Rainey Reason not bathed/showered Patient/family refused bath/shower 01/18/2025 8:42 PM Arvind Monge Perineal Care Aaliyah Care 01/19/2025 12:16 PM Dena Rainey Linens Complete linen change 01/19/2025 10:21 AM Dena Rainey Bath Bathed/showered with chlorhexidine (CHG) 01/19/2025 10:21 AM Dena Rainey documented as of this encounter Mental Status * Question Answer Entry Date Author Level of Consciousness Alert;Awake 01/19/2025 3:28 AM QUALITY LEAD Sanchez Bran, ADOLPH * Question Answer Entry Date Author Orientation Oriented X4 (person, place, time, situation) 01/19/2025 8:[address] QUALITY LEAD [address] COTA * Question Answer Entry Date Author Neuro (WDL) X 01/18/2025 7:24 PM Sanchez Landers, ADOLPH Other Neuro Symptoms Fatigue;Forgetful 01/18/2025 7:24 PM Sanchez Landers RN * Short Blessed Test Question Answer Entry Date Author What year is it now? 0 01/17/2025 11:26 AM Shilpa Leon, OT What month is it now? 0 01/17/2025 11:26 AM Shilpa Leon, OT Without looking at the clock, tell me what time it is 0 01/17/2025 11:26 AM Shilpa Leon, OT Count aloud backwards from 20-1 0 01/17/2025 11:26 AM Shilpa Leon, OT Say the months of the year backwards in reverse order 0 01/17/2025 11:26 AM Shilpa Leon, OT Repeat the name and address I asked you to remember 4 01/17/2025 11:26 AM Shilpa Leon OT Repeat this name and address after me Lobo Dee [address] [place] [address] 01/17/2025 11:26 AM Shilpa Leon, OT Short Blessed Total Score 4 01/17/2025 11:26 AM Shilpa Leon, OT Short Blessed Comments 0-4 = Normal Cognition 11:26 AM Shilpa Leon, OT documented in this encounter Plan of Treatment [...] documented as of this encounter Care Teams Arc Welder Relationship Specialty Start Date End Date David Pruitt MD [address] [place] [address] PCP - General Family Medicine 06/30/17 Aram Oro MD [address] [facility] [address] [place] [address] Surgeon Surgery 02/29/24 David Fried MD [address] [facility] [address] [place], [place] [id number] Radiation Oncologist Radiation Oncology 02/29/24 Chema Foreman MD [facility] [address] [place] [address] Consulting Physician Interventional Cardiology 03/17/24 Lobo Driscoll DO [address] [facility] [address] [place], [place] [id number] Medical Oncologist/Cereal Popper Hematology and Oncology 09/06/24 documented as of this encounter
--- OUTSIDE RECORDS SUMMARY | 2025-01-31 16:52 | XMS_ITS | Encounter Summary ---
Author Organization [facility] Healthcare Address [address] [place] [address] Care Team Providers Care Automotive Metalsmith Name Role Phone Jeronimo Duke MD Primary Care Provider [phone] Forrest Wheat DO Primary Care Provider + Jeronimo Duke MD Primary Care Provider [phone] Forrest Wheat DO Primary Care Provider + Jeronimo Duke MD Primary Care Provider [phone] David Pruitt MD Primary Care Provider Aram Oro MD Unavailable [phone] David Fried MD Unavailable [phone] Chema Foreman MD Unavailable [phone] Lobo Driscoll DO Unavailable [phone] Encounter Details Date Type Department Care Team (Late st Contact Info) Description 09/05/2014 Orders Only [facility] Health Information Management [address] [place] [address] Scanning, Provider Social History Tobacco Use Types Packs/Day Years Used Date Smoking Tobacco: Former Alcohol Use Standard Drinks/Week Comments No 0 (1 standard drink = 0.6 oz pur e alcohol) Comments Unknown Sex and Gender Information Value Date Recorded Sex Assigned at Not on file Legal Sex Female 12:20 AM DI[employer]ARY INTERNSHIP Gender Identity Female 12/31/2023 2:40 PM CDT [...] documented as of this encounter Care Teams Automotive Metalsmith Relationship Specialty Start Date End Date Jeronimo Duke MD [address] [place] [address] PCP - General 05/12/13 08/30/16 Forrest Wheat DO [address] [place] [address] PCP - General 08/31/16 08/31/16 [place] [address] [place] [address] PCP - General 09/01/16 09/06/16 Forrest Wheat DO [address] [place] [id number] PCP - General 09/07/16 11/10/16 Jeronimo Duke MD [address] [place] [address] PCP - General 11/11/16 06/29/17 David Pruitt MD [address] [place] [address] PCP - General Family Medicine 06/30/17 Aram Oro MD [address] [place] [address] [address] [place], [place] [id number] Surgeon Surgery 02/29/24 David Fried MD [address] [place] [id number] Radiation Oncologist Radiation Oncology 02/29/24 Chema Foreman MD [address] [place] [id number] Consulting Physician Interventional Cardiology 03/17/24 Lobo Driscoll DO [address] [place] [id number] Medical Oncologist/Hematologis t Hematology and Oncology 09/06/24 documented as of this encounter
--- OUTSIDE RECORDS SUMMARY | 2025-01-31 16:52 | XMS_ITS | Clinical Summary ---
Author Organization [facility] Address [address] [place] [address] Care Team Providers Care Wet Milling Wheel Operator Name Role Phone David Pruitt MD Primary Care Provider Aram Oro MD Unavailable [phone] David Fried MD Unavailable [phone] Chema Foreman MD Unavailable [phone] Lobo Driscoll DO Unavailable [phone] Allergies Active Allergy Reactions Criticality Noted Date Comments Atorvastatin Muscle pain Medium 01/01/2019 Myalgias on atorvastatin 20 mg Celecoxib Hives High 04/20/2024 Flecainide Other (See comments) Low 01/21/2021 QT prolongation House Dust Iodinated Contrast Media Other (See comments) Medium 06/30/2017 Dizzy, hot, nauseated, no hives or wheezing. Metformin Chest tightness,Other (See comments) Medium 06/30/2017 Chest pain Bidwell-3 Fatty Acids Rash,Hives High 01/27/2018 Prednisone Other (See comments) 06/12/2024 worsening hyperglycemia/hyperte nsion Shellfish Derived Hives High 04/20/2024 Shrimp Hives High 04/20/2024 Medications PROAIR HFA 90 mcg/actuation inhaler Inhale 2 puffs every 6 (six) hours as needed for wheezing or shortness of breath 018 Active hydroCHLOROthiaz grover (HYDRODIURIL) 25 mg tablet Take 1 tablet (25 mg total) by mouth daily Active cetirizine (ZyrTEC) 10 mg tablet Take [...] Take 1 tablet by mouth daily Active montelukast (SINGULAIR) 10 mg tablet Take 1 tablet (10 mg total) by mouth daily Active ondansetron ODT (ZOFRAN-ODT) 4 mg disintegrating tablet Take 1 tablet (4 mg total) by mouth every 6 (six) hours as needed Active potassium chloride ER 10 mEq CR tablet Take 1 tablet/capsule (10 mEq total) by mouth daily Active DULoxetine DR (CYMBALTA) 60 mg capsule Take 1 capsule (60 mg total) by mouth nightly Active levothyroxine (SYNTHROID) 88 mcg tablet Take 1 tablet (88 mcg total) by mouth daily Active methotrexate 2.5 mg tablet TAKE 10 TABLETS BY MOUTH ONCE A WEEK, EVERY 7 DAYS. Active Mounjaro 7.5 mg/0.5 mL pen injector injection INJECT 7.5MG SUBCUTANEOUSLY ONCE A WEEK, EVERY 7 DAYS Active oxyBUTYnin XL (DITROPAN-XL) 10 mg 24 hr tablet Take 1 tablet (10 mg total) by mouth daily 025 Active rosuvastatin (CRESTOR) 10 mg tabletIndication s:Mixed hyperlipidemia,C oronary artery disease involving levelock coronary artery of levelock heart without angina pectoris Take 1 tablet by mouth once daily 90 tablet 2 025 Active Xarelto 20 mg tablet Take 1 tablet (20 mg total) by mouth daily with dinner 90 tablet 1 025 Active HYDROcodone-acet aminophen (NORCO) 5-325 mg per tablet Take 1 tablet by mouth 2 (two) times a day as needed for pain 025 Active TOUJEO MAX 300 unit/mL (3 mL) pen for injection Inject 25 Units under the skin daily 025 Active cyanocobalamin (Vitamin B-12) 1,000 mcg tablet Take 2 tablets (2,000 mcg total) by mouth daily 025 Active fluticasone propion-salmeter oL (ADVAIR DISKUS) 250-50 mcg/dose diskus inhaler Inhale 1 puff 2 (two) times a day 025 Active cholecalciferol 25 mcg (1,000 unit) tablet Take 1 tablet (1,000 Units total) by mouth daily Active fluticasone propion-salmeter oL (AIRDUO RESPICLICK) 113-14 mcg/actuation inhaler Inhale 1 puff 2 (two) times a day 024 2024 Discontinued(A lternate therapy) tiotropium bromide (SPIRIVA RESPIMAT) 2.5 mcg/actuation inhalerIndicatio ns:Bronchospasm Prevention with COPD Inhale 2 puffs daily 1 each 11 025 2024 Discontinued cyanocobalamin (Vitamin B-12) 2,000 mcg tabletIndication s:B12 deficiency Take 1 tablet (2,000 mcg total) by mouth daily 90 tablet 3 025 2024 Discontinued(A lternate therapy) azelastine (ASTELIN) 137 mcg (0.1 %) nasal spray Administer 1 spray into each nostril 2 (two) times a day Use in each nostril as directed 30 mL 3 025 2024 Discontinued cefdinir (OMNICEF) 300 mg capsuleIndicatio ns:Urinary Tract/Genitourin joseph Infection Take 1 capsule (300 mg total) by mouth 2 (two) times a day for 4 doses 4 capsule 025 2024 Active Problems Problem Noted Date Diagnosed Date [...] 01/27/2018 Assessment & Plan (01/27/2018 2:58 PM LEAD MINER BLASTING): Reviewed chart and discussed blood work with patient. She denies any GI sx and says EGD 2 yrs ago and [id number] this year. Discussed posssibility of gi blood loss and offered EGD/Colonoscopy. At this time she declines and promises to follow blood counts with PMD promising to call if changes her mind Coronary artery disease invo lving levelock coronary artery of levelock heart without angina pectoris 01/26/2018 Mixed hyperlipidemia 01/26/2018 Diastolic dysfunction 01/26/2018 MATTHEWS (dyspnea on exertion) 06/30/2017 Uncomplicated asthma 06/30/2017 Mixed diabetic hyperlipidemi a associated with type 2 diabetes mellitus ([facility]/HCC) 06/30/2017 Lumbago 08/31/2016 Degeneration of intervertebral disc of lumbar re gion 08/31/2016 Resolved Problems Problem Noted Date Diagnosed Date Resolved Date Benign hypertensive heart di sease without heart failure 01/21/2021 02/04/2022 Excessive daytime sleepiness 01/21/2021 08/19/2021 Benign essential HTN 06/30/2017 021 Chest pain 01/10/2014 01/26/2018 Overview (06/05/2016): Chest pain Encounters Date Type Department Care Team Description 01/22/2025 Telephone [facility] Cardiology [address] [facility] [address] [place] [address] Makayla Ceron NP 01/15/2025 3:18 PM LEAD MINER BLASTING - 01/19/2025 1:21 PM LEAD MINER BLASTING Hospital Encounter [facility] 4 Med Surg [address] [place] [address] Eleazar Michel MD Mustafa, Saim, DO Telemaque, Kemuel Ezekiel, MD Altered mental status, unspecified altered mental status type (Primary Dx); UTI (urinary tract infection) with pyuria; Age-related physical debility Discharge Disposition: Discharge to home, home health skilled care 01/12/2025 1:00 PM LEAD MINER BLASTING Office Visit [facility] Pulmonary [place] [address] [facility] [address] [place] [address] Colt Landis MD Asthma-COPD overlap syndrome (HCC) (Primary Dx); Gastroesophageal reflux disease without esophagitis; Paroxysmal atrial fibrillation (HCC) 11/27/2024 4:00 PM CDT Office Visit [facility] [address] [facility] [address] [place] [address] Lobo Driscoll, Malignant neoplasm of upper-outer quadrant of right breast in female, estrogen receptor positive (HCC) (Primary Dx); Vitamin D deficiency from Last 3 Months Surgical History Surgery [...] often do you attend chur ch or jehovah's witness services? Never 06/05/2024 Do you belong to any clubs o r organizations such as adventism groups, unions, fraternal or athletic groups, or [...] were you homeless or living in a senior living (including now)? No 06/05/2024 Social Connection and Isolation Panel Answer Date Recorded In a typical week, how many times do you talk on the phone with family, friends, or neighbors? More than three times a week 01/17/2025 How often do you get togethe r with friends or relatives? Twice a week 01/17/2025 How often do you attend chur ch or jehovah's witness services? Never 01/17/2025 Do you belong to any clubs o r organizations such as adventism groups, unions, fraternal or athletic groups, or [...] were you homeless or living in a senior living (including now)? No 01/17/2025 [facility] Utilities Answer Date Recorded In the past 12 months has th e [employer], gas, oil, or water company threatened to [...] on file Legal Sex Female 12:20 AM LEAD MINER BLASTING Gender Identity Female 12/31/2023 2:40 PM CDT [...] Sign Reading Time Taken Comments Blood Pressure 126/53 01/19/2025 11:59 AM LEAD MINER BLASTING Pulse 92 01/19/2025 11:59 AM LEAD MINER BLASTING Temperature 36.3 C (97.3 F) 01/19/2025 11:59 AM LEAD MINER BLASTING Respiratory Rate 16 01/19/2025 11:59 AM LEAD MINER BLASTING Oxygen Saturation 97% 01/19/2025 11:59 AM LEAD MINER BLASTING Inhaled Oxygen Concentration - - Weight 52 kg (114 lb 10.2 oz) 01/15/2025 10:45 P M LEAD MINER BLASTING Height 152.4 cm (5') 01/15/2025 10:45 PM LEAD MINER BLASTING Body Mass Index 22.39 01/15/2025 10:45 PM LEAD MINER BLASTING Plan of Treatment Health Maintenance Due Date Last Done Comments Albumin Creatinine Ratio, Urine 1945 Osteoporosis Screening-Bone Density Scan 1945 Dilated Eye Exam 1945 Foot Exam 1945 DTaP/Tdap/Td Vaccine (1 - Tdap) 09/30/1954 Hepatitis B Screening 09/30/1961 Well Visit 65+ 09/30/2008 Covid-19 Vaccine (2024-2 6 season) 2024 12/21/2023, 01/08/2023, 02/04/2022, Additional history exists Influenza Vaccine (#1) 2024 , 01/08/2023, 01/28/2022, Additional history exists Hemoglobin A1C 07/16/2025 01/16/2025, 04/02, 03/31/2024 Depression Screening 01/15/2026 01/15/2025, 01/15/2025, 06/02/2024, Additional history exists Lipid Panel 01/16/2026 01/16/2025, 04/02, 08/19/2021, Additional history exists Fall Risk Assessment 01/18/2026 01/18/2025 eGFR 01/19/2026 01/19/2025, 12/31, 01/17/2025, Additional history exists Zoster Vaccine Completed 03/09/2019, 12/13/2018 Pneumococcal vaccine 65+ Completed 03/17/2022, 09/2020 Medical Devices Implanted Type Area Sweater Operator Device Identifier Shelf Expiration Date Model / Serial / Lot Coating [employer] Tell 20ga 5cm Reposition J Curve Wire Centimeter Andrew Stabilizer [id number] - [id number] Implanted:Qty: 1 on 04/07/2024 by Eleazar Gavin MD at [facility] Right: Breast [employer] [id number] 01/12/2029 [id number] / / [id number] Procedures Procedure Name Priority Date/Time Associated Diagnosis Comments POCT GLUCOSE DEVICE Routine 01/19/2025 1 2:35 PM LEAD MINER BLASTING POCT GLUCOSE DEVICE Routine 01/19/2025 8 :52 AM LEAD MINER BLASTING EGFR Routine 01/19/2025 4:38 AM LEAD MINER BLASTING DIFFERENTIAL AUTO Routine 01/19/2025 4:3 8 AM LEAD MINER BLASTING BASIC METABOLIC PANEL Routine 01/19/2025 4:38 AM LEAD MINER BLASTING CBC WITH AUTO DIFFERENTIAL Routine 01/19/2025 4:38 AM LEAD MINER BLASTING POCT GLUCOSE DEVICE Routine 01/18/2025 8 :20 PM LEAD MINER BLASTING POCT GLUCOSE DEVICE Routine 01/18/2025 6 :42 PM LEAD MINER BLASTING POCT GLUCOSE DEVICE Routine 01/18/2025 5 :49 PM LEAD MINER BLASTING POCT GLUCOSE DEVICE Routine 01/18/2025 5 :08 PM LEAD MINER BLASTING POCT GLUCOSE DEVICE Routine 01/18/2025 3 :08 PM LEAD MINER BLASTING POCT GLUCOSE DEVICE Routine 01/18/2025 1 2:44 PM LEAD MINER BLASTING POCT GLUCOSE DEVICE Routine 01/18/2025 7 :41 AM LEAD MINER BLASTING EGFR Routine 01/18/2025 4:07 AM LEAD MINER BLASTING DIFFERENTIAL AUTO Routine 01/18/2025 4:0 7 AM LEAD MINER BLASTING BASIC METABOLIC PANEL Routine 01/18/2025 4:07 AM LEAD MINER BLASTING CBC WITH AUTO DIFFERENTIAL Routine 01/18/2025 4:07 AM LEAD MINER BLASTING POCT GLUCOSE DEVICE Routine 01/17/2025 9 :02 PM LEAD MINER BLASTING POCT GLUCOSE DEVICE Routine 01/17/2025 5 :35 PM LEAD MINER BLASTING EGFR Routine 01/17/2025 9:27 AM LEAD MINER BLASTING DIFFERENTIAL AUTO Routine 01/17/2025 9:2 7 AM LEAD MINER BLASTING BASIC METABOLIC PANEL Routine 01/17/2025 9:27 AM LEAD MINER BLASTING CBC WITH AUTO DIFFERENTIAL Routine 01/17/2025 9:27 AM LEAD MINER BLASTING POTASSIUM LEVEL Routine 01/17/2025 3:55 AM LEAD MINER BLASTING XR SPINE LUMBAR 2 OR 3 VIEWS IP Routine 01/16/2025 5:21 PM LEAD MINER BLASTING XR HIPS BILATERAL 3 OR 4 VW IP Routine 01/16/2025 5:21 PM LEAD MINER BLASTING EGFR Routine 01/16/2025 12:26 AM LEAD MINER BLASTING THYROID FUNCTION CASCADE Routine 01/16/2025 12:26 AM LEAD MINER BLASTING HEMOGLOBIN A1C Routine 01/16/2025 12:26 AM LEAD MINER BLASTING LIPID PANEL Routine 01/16/2025 12:26 AM LEAD MINER BLASTING CBC WITHOUT DIFFERENTIAL Routine 01/16/2025 12:26 AM LEAD MINER BLASTING BASIC METABOLIC PANEL Routine 01/16/2025 12:26 AM LEAD MINER BLASTING TROPONIN T HIGH-SENSITIVITY 6-HOUR Timed 01/16/2025 12:26 AM LEAD MINER BLASTING MRI BRAIN WO CONTRAST IP Routine 01/15/2025 10:12 PM LEAD MINER BLASTING TROPONIN T HIGH-SENSITIVITY 4-HR Timed 01/15/2025 7:53 PM LEAD MINER BLASTING TROPONIN T HIGH-SENSITIVITY 2-HOUR Timed 01/15/2025 5:13 PM LEAD MINER BLASTING ECG 12-LEAD Routine 01/15/2025 3:57 PM LEAD MINER BLASTING URINALYSIS, MICROSCOPIC ONLY STAT 01/15/2025 3:53 PM LEAD MINER BLASTING URINALYSIS AND REFLEX TO MICROSCOPIC AND CULTURE STAT 01/15/2025 3:53 PM LEAD MINER BLASTING XR CHEST 1 VIEW ED 01/15/2025 3:47 PM LEAD MINER BLASTING EGFR STAT 01/15/2025 3:39 PM LEAD MINER BLASTING DIFFERENTIAL AUTO STAT 01/15/2025 3:3 9 PM LEAD MINER BLASTING TROPONIN T HIGH-SENSITIVITY SERIES (BASELINE, 2HR, 4HR, 6HR) STAT 01/15/2025 3:39 PM LEAD MINER BLASTING COMPREHENSIVE METABOLIC PANEL STAT 01/15/2025 3:39 PM LEAD MINER BLASTING CBC WITH AUTO DIFFERENTIAL STAT 01/15/2025 3:[address] STROKE PROTOCOL WO CONTRAST Critical/Life-T hreatening 01/15/2025 3:24 PM LEAD MINER BLASTING POCT GLUCOSE DEVICE Routine 01/15/2025 3 :17 PM LEAD MINER BLASTING from Last 3 Months Results * POCT glucose (01/19/2025 12:35 PM LEAD MINER BLASTING) [facility] [place] [facility] Signature Glucose, POC 133 70 - 199 mg/dL Comment:Testing performed by : [facility], [address] [place] [address], [place]., [address] Blood 01/19/2025 12:3 5 PM LEAD MINER BLASTING 01/19/2025 12:35 PM LEAD MINER BLASTING Angelique Pace MD LAB POCT ORDERABLES - DEVICE Final Result KISHA [address] [facility] [place] [address] * POCT glucose (01/19/2025 8:52 AM LEAD MINER BLASTING) Pathologist [facility] Glucose, POC 161 70 - 199 mg/dL Comment:Testing performed by : [address] [address] Blood 01/19/2025 8:52 AM LEAD MINER BLASTING 01/19/2025 8:52 AM LEAD MINER BLASTING Angelique Pace MD LAB POCT ORDERABLES - DEVICE Final Result Performing Organization Address City/[facility] Co de Phone Number KISHA [address] [facility] [place] [address] * eGFR (01/19/2025 4:38 AM LEAD MINER BLASTING) [facility] eGFR >90 >=60 mL/min/1. 73 m2 Comment: [...] was last reviewed 2020. Testing performed by: [facility], [address] [place] [address]., [address] Blood 01/19/2025 4:38 AM LEAD MINER BLASTING 01/19/2025 5:30 AM LEAD MINER BLASTING us Angelique Pace MD LAB BLOOD ORDERABLES Final Result KISHA [address] [facility] Department [place] [address] * Differential, auto (01/19/2025 4:38 AM LEAD MINER BLASTING) Neutrophil abs 4.59 1.50 - 6.50 K/cumm Comment:Testing performed by : [address] [address] Imm gran abs 0.04 0.00 - 0.10 K/cumm KISHA Comment:Testing performed by : [address] [address] Lymphocyte abs 1.61 0.80 - 3.30 K/cumm KISHA Comment:Testing performed by : [address] [address] Monocyte abs 0.61 0.20 - 0.80 K/cumm KISHA Comment:Testing performed by : [address] [address] Eosinophil abs 0.00 0.00 - 0.50 K/cumm KISHA Comment:Testing performed by : [address] [address] Basophil abs 0.01 0.00 - 0.10 K/cumm KISHA Comment:Testing performed by : [address] [address] Neutrophil pct 66.9 % KISHA Comment: Interpretive Data Percent cell count reference ranges are not reported, since discordance with absolute values may lead to misinterpretation of CBC data. Current Interpretive Data was last revised on 2017. Testing performed by: [address] [address] Imm gran pct 0.6 % KISHA Comment: Interpretive Data Percent cell count reference ranges are not reported, since discordance with absolute values may lead to misinterpretation of CBC data. Current Interpretive Data was last revised on 2017. Testing performed by: [address] [address] Lymphocyte pct 23.5 % [facility] Comment: Interpretive Data Percent cell count reference ranges are not reported, since discordance with absolute values may lead to misinterpretation of CBC data. Current Interpretive Data was last revised on 2017. Testing performed by: [address] [address] Monocyte pct 8.9 % [facility] Comment: Interpretive Data Percent cell count reference ranges are not reported, since discordance with absolute values may lead to misinterpretation of CBC data. Current Interpretive Data was last revised on 2017. Testing performed by: [address] [address] Eosinophil pct 0.0 % [facility] Comment: Interpretive Data Percent cell count reference ranges are not reported, since discordance with absolute values may lead to misinterpretation of CBC data. Current Interpretive Data was last revised on 2017. Testing performed by: [address] [address] Basophil pct 0.1 % [facility] Comment: Interpretive Data Percent cell count reference ranges are not reported, since discordance with absolute values may lead to misinterpretation of CBC data. Current Interpretive Data was last revised on 2017. Testing performed by: [address] [address] Blood 01/19/2025 4:38 AM LEAD MINER BLASTING 01/19/2025 5:30 AM LEAD MINER BLASTING us Angelique Pace MD LAB BLOOD ORDERABLES Final Result KISHA [address] [facility] Department [place] [address] * (ABNORMAL) CBC with auto differential (01/19/2025 4:38 AM LEAD MINER BLASTING) WBC 6.86 3.80 - 9.90 K/cumm Comment:Testing performed by : [address] [address] Hgb 9.8(L) 11.9 - 15.5 g/dL KISHA Comment:Testing performed by : [address] [address] Hct 31.0(L) 35.6 - 45.5 % KISHA Comment:Testing performed by : [address] [address] Plt 297 150 - 400 K/cumm KISHA Comment:Testing performed by : [address] [address] MPV 9.9 9.1 - 12.3 fL KISHA Comment:Testing performed by : [address] [address] RBC 3.86(L) 3.90 - 5.20 M/cumm KISHA Comment:Testing performed by : [address] [address] MCV 80.3(L) 81.3 - 96.4 fL KISHA Comment:Testing performed by : [address] [address] MCH 25.4(L) 27.1 - 33.3 pg KISHA Comment:Testing performed by : [address] [address] MCHC 31.6(L) 32.3 - 35.7 g/dL KISHA Comment:Testing performed by : [address] [address] RDW CV 20.9(H) 11.1 - 14.9 % KISHA Comment:Testing performed by : [address] [address] RDW SD 59.6(H) 35.7 - 48.1 fL KISHA Comment:Testing performed by : [address] [address] NRBC abs 0.00 0.00 - 0.01 K/cumm KISHA Comment:Testing performed by : [address] [address] Blood 01/19/2025 4:38 AM LEAD MINER BLASTING 01/19/2025 5:30 AM LEAD MINER BLASTING us Angelique Pace MD LAB BLOOD ORDERABLES Final Result K[facility]HA [address] [facility] Department [place] [address] * (ABNORMAL) Basic metabolic panel (01/19/2025 4:38 AM LEAD MINER BLASTING) Sodium 135 135 - 145 mmol/L Comment:Testing performed by : [address] [address] Potassium, pl 3.9 3.3 - 4.9 mmol/L KISHA Comment:Testing performed by : [address] [address] Chloride 100 97 - 110 mmol/L KISHA Comment:Testing performed by : [address] [address] CO2 24 22 - 32 mmol/L KISHA Comment:Testing performed by : [address] [address] Anion gap 11 2 - 15 mmol/L KISHA Comment:Testing performed by : [address] [address] BUN 11 6 - 25 mg/dL KISHA Comment:Testing performed by : [address] [address] Creatinine 0.47(L) 0.60 - 1.10 mg/dL KISHA Comment:Testing performed by : [address] [address] Glucose 246(H) 70 - 199 mg/dL KISHA Comment: Interpretive [...] was last revised 2022. Testing performed by: [address] [address] Calcium 9.0 8.5 - 10.3 mg/dL KISHA [place] Comment:Testing performed by : [address] [address] Blood 01/19/2025 4:38 AM LEAD MINER BLASTING 01/19/2025 5:30 AM LEAD MINER BLASTING us Angelique Pace MD LAB BLOOD ORDERABLES Final Result Performing Organization Address [facility] Co de Phone Number [address] [place] [address] * POCT glucose (01/18/2025 8:20 PM LEAD MINER BLASTING) Glucose, POC 181 70 - 199 mg/dL Comment:Testing performed by : [address] [address] Blood 01/18/2025 8:20 PM LEAD MINER BLASTING 01/18/2025 8:20 PM LEAD MINER BLASTING Result [facility] us Angelique Pace MD LAB POCT ORDERABLES - DEVICE Final Result Performing Organization Address [facility] Co de Phone Number [address] [address] * (ABNORMAL) POCT glucose (01/18/2025 6:42 PM LEAD MINER BLASTING) Glucose, POC 225(H) 70 - 199 mg/dL Comment:Testing performed by : [address] [address] Glucose comment 1 RN/MD Notified KISHA [place] Comment:Testing performed by : [address] [address] Blood 01/18/2025 6:42 PM LEAD MINER BLASTING 01/18/2025 6:42 PM LEAD MINER BLASTING us Angelique Pace MD LAB POCT ORDERABLES - DEVICE Final Result Performing Organization Address [facility] de Phone Number DANNY[address] [address] * (ABNORMAL) POCT glucose (01/18/2025 5:49 PM LEAD MINER BLASTING) Glucose, POC 241(H) 70 - 199 mg/dL Comment:Testing performed by : [address] [address] Blood 01/18/2025 5:49 PM LEAD MINER BLASTING 01/18/2025 5:49 PM LEAD MINER BLASTING Angelique Pace MD LAB POCT ORDERABLES - DEVICE Final Result Performing Organization Address [facility] Co de Phone Number [address] [place] [address] * (ABNORMAL) POCT glucose (01/18/2025 5:08 PM LEAD MINER BLASTING) Glucose, POC 223(H) 70 - 199 mg/dL Comment:Testing performed by : [address] [address] Blood 01/18/2025 5:08 PM LEAD MINER BLASTING 01/18/2025 5:08 PM LEAD MINER BLASTING Angelique Pace MD LAB POCT ORDERABLES - DEVICE Final Result Performing Organization Address [facility] Co de Phone Number [address] [place] [address] * (ABNORMAL) POCT glucose (01/18/2025 3:08 PM LEAD MINER BLASTING) Glucose, POC 307(H) 70 - 199 mg/dL Comment:Testing performed by : [address] [address] Blood 01/18/2025 3:08 PM LEAD MINER BLASTING 01/18/2025 3:08 PM LEAD MINER BLASTING us Angelique Pace MD LAB POCT ORDERABLES - DEVICE Final Result Performing Organization Address [facility] Co de Phone Number KISHA [address] [place] [address] * (ABNORMAL) POCT glucose (01/18/2025 12:44 PM LEAD MINER BLASTING) Glucose, POC 246(H) 70 - 199 mg/dL Comment:Testing performed by : [address] [address] Blood 01/18/2025 12:4 4 PM LEAD MINER BLASTING 01/18/2025 12:44 PM LEAD MINER BLASTING us Angelique Pace MD LAB POCT ORDERABLES - DEVICE Final Result Performing Organization Address [facility] de Phone Number DANNY[address] [address] * (ABNORMAL) POCT glucose (01/18/2025 7:41 AM LEAD MINER BLASTING) Glucose, POC 213(H) 70 - 199 mg/dL Comment:Testing performed by : [address] [address] Glucose comment 1 RN/MD Notified KISHA Comment:Testing performed by : [address] [address] Blood 01/18/2025 7:41 AM LEAD MINER BLASTING 01/18/2025 7:41 AM LEAD MINER BLASTING Angelique Pace MD LAB POCT ORDERABLES - DEVICE Final Result Performing Organization Address [facility] Co de Phone Number DANNY[address] [address] * eGFR (01/18/2025 4:07 AM LEAD MINER BLASTING) eGFR >90 >=60 mL/min/1. 73 m2 Comment: [...] was last reviewed 2020. Testing performed by: [address] [address] Blood 01/18/2025 4:07 AM LEAD MINER BLASTING 01/18/2025 5:31 AM LEAD MINER BLASTING us Angelique Pace MD LAB BLOOD ORDERABLES Final Result KISHA [address] [facility] Department [place] [address] * Differential, auto (01/18/2025 4:07 AM LEAD MINER BLASTING) Neutrophil abs 5.82 1.50 - 6.50 K/cumm Comment:Testing performed by : [address] [address] Imm gran abs 0.03 0.00 - 0.10 K/cumm KISHA Comment:Testing performed by : [address] [address] Lymphocyte abs 1.12 0.80 - 3.30 K/cumm KISHA Comment:Testing performed by : [address] [address] Monocyte abs 0.47 0.20 - 0.80 K/cumm KISHA Comment:Testing performed by : [address] [place]., [address] Eosinophil abs 0.00 0.00 - 0.50 K/cumm [facility] Comment:Testing performed by : [address] [address] Basophil abs 0.01 0.00 - 0.10 K/cumm KISHA Comment:Testing performed by : [address] [address] Neutrophil pct 78.2 % [facility] Comment: Interpretive Data Percent cell count reference ranges are not reported, since discordance with absolute values may lead to misinterpretation of CBC data. Current Interpretive Data was last revised on 2017. Testing performed by: [address] [address] Imm gran pct 0.4 % [facility] Comment: Interpretive Data Percent cell count reference ranges are not reported, since discordance with absolute values may lead to misinterpretation of CBC data. Current Interpretive Data was last revised on 2017. Testing performed by: [address] [address] Lymphocyte pct 15.0 % [facility] Comment: Interpretive Data Percent cell count reference ranges are not reported, since discordance with absolute values may lead to misinterpretation of CBC data. Current Interpretive Data was last revised on 2017. Testing performed by: [address] [address] Monocyte pct 6.3 % [facility] Comment: Interpretive Data Percent cell count reference ranges are not reported, since discordance with absolute values may lead to misinterpretation of CBC data. Current Interpretive Data was last revised on 2017. Testing performed by: [address] [address] Eosinophil pct 0.0 % [facility] Comment: Interpretive Data Percent cell count reference ranges are not reported, since discordance with absolute values may lead to misinterpretation of CBC data. Current Interpretive Data was last revised on 2017. Testing performed by: [address] [address] Basophil pct 0.1 % [facility] Comment: Interpretive Data Percent cell count reference ranges are not reported, since discordance with absolute values may lead to misinterpretation of CBC data. Current Interpretive Data was last revised on 2017. Testing performed by: [address] [address] Blood 01/18/2025 4:07 AM [employer] 01/18/2025 5:29 AM [employer] Angelique Pace MD LAB BLOOD ORDERABLES Final Result [facility] [address] [facility] Department [place] [address] * (ABNORMAL) CBC with auto differential (01/18/2025 4:07 AM [employer]) WBC 7.45 3.80 - 9.90 K/cumm Comment:Testing performed by : [address] [address] Hgb 10.4(L) 11.9 - 15.5 g/dL KISHA Comment:Testing performed by : [address] [address] Hct 32.7(L) 35.6 - 45.5 % KISHA Comment:Testing performed by : [address] [address] Plt 320 150 - 400 K/cumm KISHA Comment:Testing performed by : [address] [address] MPV 10.2 9.1 - 12.3 fL KISHA Comment:Testing performed by : [address] [address] RBC 4.07 3.90 - 5.20 M/cumm KISHA Comment:Testing performed by : [address] [address] MCV 80.3(L) 81.3 - 96.4 fL KISHA Comment:Testing performed by : [address] [address] MCH 25.6(L) 27.1 - 33.3 pg KISHA Comment:Testing performed by : [address] [address] MCHC 31.8(L) 32.3 - 35.7 g/dL [facility] [place] Comment:Testing performed by : [address] [address] RDW CV 20.8(H) 11.1 - 14.9 % [facility] [place] Comment:Testing performed by : [address] [address] RDW SD 59.2(H) 35.7 - 48.1 fL [facility] [place] Comment:Testing performed by : [address], [place]., [address] NRBC abs 0.00 0.00 - 0.01 K/cumm [facility] [place] Comment:Testing performed by : [address] [address] Blood 01/18/2025 4:07 AM [employer] 01/18/2025 5:29 AM [employer] us Angelique Pace MD LAB BLOOD ORDERABLES Final Result [facility] [address] [facility] Department [place] [address] * (ABNORMAL) Basic metabolic panel (01/18/2025 4:07 AM [employer]) Sodium 136 135 - 145 mmol/L Comment:Testing performed by : [address] [address] Potassium, pl 3.8 3.3 - 4.9 mmol/L [facility] [place] Comment:Testing performed by : [address] [address] Chloride 100 97 - 110 mmol/L [facility] [place] Comment:Testing performed by : [address] [address] CO2 25 22 - 32 mmol/L [facility] [place] Comment:Testing performed by : [address] [address] Anion gap 11 2 - 15 mmol/L [facility] [place] Comment:Testing performed by : [address] [address] BUN 11 6 - 25 mg/dL KISHA Comment:Testing performed by : [address] [address] Creatinine 0.43(L) 0.60 - 1.10 mg/dL KISHA Comment:Testing performed by : [address] [address] Glucose 233(H) 70 - 199 mg/dL KISHA Comment: Interpretive [...] was last revised 2022. Testing performed by: [address] [address] Calcium 9.2 8.5 - 10.3 mg/dL KISHA Comment:Testing performed by : [address] [address] Blood 01/18/2025 4:07 AM [employer] 01/18/2025 5:31 AM [employer] Angelique Pace MD LAB BLOOD ORDERABLES Final Result [facility] [address] [facility] Department [place] [address] * (ABNORMAL) POCT glucose (01/17/2025 9:02 PM [employer]) [facility] Glucose, POC 202(H) 70 - 199 mg/dL Comment:Testing performed by : [address] [address] Blood 01/17/2025 9:02 PM [employer] 01/17/2025 9:02 PM [employer] us Angelique Pace MD LAB POCT ORDERABLES - DEVICE Final Result Performing Organization Address City/[facility] Co de Phone Number KISHA [facility] [place] [address] * (ABNORMAL) POCT glucose (01/17/2025 5:35 PM [employer]) Glucose, POC 311(H) 70 - 199 mg/dL Comment:Testing performed by : [facility], [address] [place] [address]., [address] Blood 01/17/2025 5:35 PM [employer] 01/17/2025 5:35 PM [employer] us Angelique Pace MD LAB POCT ORDERABLES - DEVICE Final Result Performing Organization Address [facility] de Phone Number KISHA [facility] [place] [address] * eGFR (01/17/2025 9:27 AM [employer]) eGFR >90 >=60 mL/min/1. 73 m2 Comment: [...] was last reviewed 2020. Testing performed by: [facility], [address] [place] [address]., [address] Blood 01/17/2025 9:27 AM [employer] 01/17/2025 9:33 AM [employer] us Angelique Pace MD LAB BLOOD ORDERABLES Final Result [facility] [address] [facility] Department [place] [address] * Differential, auto (01/17/2025 9:27 AM [employer]) Neutrophil abs 3.33 1.50 - 6.50 K/cumm Comment:Testing performed by : [address] [address] Imm gran abs 0.02 0.00 - 0.10 K/cumm KISHA Comment:Testing performed by : [address] [address] Lymphocyte abs 1.12 0.80 - 3.30 K/cumm KISHA Comment:Testing performed by : [address] [address] Monocyte abs 0.31 0.20 - 0.80 K/cumm KISHA Comment:Testing performed by : [address] [address] Eosinophil abs 0.00 0.00 - 0.50 K/cumm KISHA Comment:Testing performed by : [address] [address] Basophil abs 0.00 0.00 - 0.10 K/cumm KISHA Comment:Testing performed by : [address] [address] Neutrophil pct 69.7 % KISHA Comment: Interpretive Data Percent cell count reference ranges are not reported, since discordance with absolute values may lead to misinterpretation of CBC data. Current Interpretive Data was last revised on 2017. Testing performed by: [address] [address] Imm gran pct 0.4 % KISHA Comment: Interpretive Data Percent cell count reference ranges are not reported, since discordance with absolute values may lead to misinterpretation of CBC data. Current Interpretive Data was last revised on 2017. Testing performed by: [address] [address] Lymphocyte pct 23.4 % [facility] Comment: Interpretive Data Percent cell count reference ranges are not reported, since discordance with absolute values may lead to misinterpretation of CBC data. Current Interpretive Data was last revised on 2017. Testing performed by: [address] [address] Monocyte pct 6.5 % [facility] Comment: Interpretive Data Percent cell count reference ranges are not reported, since discordance with absolute values may lead to misinterpretation of CBC data. Current Interpretive Data was last revised on 2017. Testing performed by: [address] [address] Eosinophil pct 0.0 % [facility] Comment: Interpretive Data Percent cell count reference ranges are not reported, since discordance with absolute values may lead to misinterpretation of CBC data. Current Interpretive Data was last revised on 2017. Testing performed by: [address] [address] Basophil pct 0.0 % [facility] Comment: Interpretive Data Percent cell count reference ranges are not reported, since discordance with absolute values may lead to misinterpretation of CBC data. Current Interpretive Data was last revised on 2017. Testing performed by: [address] [address] Blood 01/17/2025 9:27 AM [employer] 01/17/2025 9:34 AM [employer] us Angelique Pace MD LAB BLOOD ORDERABLES Final Result [facility] [place] [address] [facility] Department of Laboratories [place], [place] [id number] * (ABNORMAL) CBC with auto differential (01/17/2025 9:27 AM [employer]) WBC 4.78 3.80 - 9.90 K/cumm Comment:Testing performed by : [address] [address] Hgb 10.3(L) 11.9 - 15.5 g/dL CERELVIN Comment:Testing performed by : [address] [address] Hct 32.7(L) 35.6 - 45.5 % CERELVIN Comment:Testing performed by : [address] [address] Plt 270 150 - 400 K/cumm CERELVIN Comment:Testing performed by : [address] [address] MPV 9.1 9.1 - 12.3 fL CERELVIN Comment:Testing performed by : [address], [address] RBC 3.98 3.90 - 5.20 M/cumm CERELVIN Comment:Testing performed by : [address] [address] MCV 82.2 81.3 - 96.4 fL CERELVIN Comment:Testing performed by : [address] [address] MCH 25.9(L) 27.1 - 33.3 pg CERELVIN Comment:Testing performed by : [address] [address] MCHC 31.5(L) 32.3 - 35.7 g/dL CERELVIN Comment:Testing performed by : [address], [address] RDW CV 20.9(H) 11.1 - 14.9 % CERELVIN Comment:Testing performed by : [address], [address] RDW SD 62.0(H) 35.7 - 48.1 fL CERELVIN Comment:Testing performed by : [address] [address] NRBC abs 0.00 0.00 - 0.01 K/cumm KISHA Comment:Testing performed by : [address], [address] Blood 01/17/2025 9:27 AM [employer] 01/17/2025 9:34 AM [employer] us Angelique Pace MD LAB BLOOD ORDERABLES Final Result [facility] [address] [facility] Department [place] [address] * (ABNORMAL) Basic metabolic panel (01/17/2025 9:27 AM [employer]) Sodium 138 135 - 145 mmol/L Comment:Testing performed by : [address] [address] Potassium, pl 4.4 3.3 - 4.9 mmol/L KISHA Comment:Testing performed by : [address] [address] Chloride 103 97 - 110 mmol/L KISHA Comment:Testing performed by : [address] [address] CO2 25 22 - 32 mmol/L KISHA Comment:Testing performed by : [address] [address] Anion gap 10 2 - 15 mmol/L KISHA Comment:Testing performed by : [address] [address] BUN 7 6 - 25 mg/dL KISHA Comment:Testing performed by : [address] [address] Creatinine 0.50(L) 0.60 - 1.10 mg/dL KISHA Comment:Testing performed by : [address] [address] Glucose 258(H) 70 - 199 mg/dL KISHA Comment: Interpretive [...] was last revised 2022. Testing performed by: [address] [address] Calcium 8.8 8.5 - 10.3 mg/dL DANNYELVIN Comment:Testing performed by : [address] [address] Blood 01/17/2025 9:27 AM [employer] 01/17/2025 9:33 AM [employer] us Angelique Pace MD LAB BLOOD ORDERABLES Final Result Performing Organization Address City/[facility]/ZIP Co de Phone Number [facility] [address] [facility] [place] [address] * Potassium (01/17/2025 3:55 AM [employer]) [facility] Potassium, pl 4.1 3.3 - 4.9 mmol/L Comment: Delta - Results Reviewed Testing performed by: [address] [address] Blood 01/17/2025 3:55 AM [employer] 01/17/2025 4:59 AM [employer] us Angelique Pace MD LAB BLOOD ORDERABLES Final Result Performing Organization Address City/[facility] Co de Phone Number [facility] [address] [facility] [place] [address] * XR Hips Bilateral 3 or 4 Views (01/16/2025 5:21 PM [employer]) Anatomical Region Laterality Modality Lower Extremities, Hip, Pelvis Bilateral C omputed Radiography 01/16/2025 5:43 PM [employer] Impressions 01/16/2025 5:43 PM [employer] 1. No acute displaced fracture or dislocation. 2. Gaseous distention/dilation of multiple small and large bowel loops most consistent with ileus. Consider dedicated imaging of the abdomen/pelvis as clinically appropriate. Electronically signed by: Dany Vu M.D. Narrative 01/16/2025 5:43 PM [employer] EXAMINATION: XR HIPS BILATERAL 3 OR 4 VW, XR SPINE LUMBAR 2 OR 3 VIEWS. HISTORY: Bilateral Hip pain TECHNIQUE: 3 radiographic views of the lumbar spine were obtained. 2 views of bilateral hips. COMPARISON: 05/30/2024 FINDINGS: ALIGNMENT: Normal. VERTEBRAE: Chronic mild superior endplate compression fracture of L1. No new acute displaced fracture. Multilevel facet arthrosis most pronounced at L5/S1. DISKS: Mild height loss at L5/S1. PELVIS: Pelvic phleboliths. SOFT TISSUES: Vascular calcifications. Numerous distended loops of small and large bowel. Small bowel loops measure up to approximately 3.8 cm. Neuroforaminal and spinal canal narrowing suboptimally evaluated by radiograph but there is likely at least mild stenosis of the L5/S1 neural foramen. Hips: Mild bilateral hip osteoarthrosis. No acute displaced fracture or dislocation. Pelvic phleboliths. Procedure Note Dany Vu MD - 01/16/2025 EXAMINATION: XR HIPS BILATERAL 3 OR 4 VW, XR SPINE LUMBAR 2 OR 3 VIEWS. HISTORY: Bilateral Hip pain TECHNIQUE: 3 radiographic views of the lumbar spine were obtained. 2 views of bilateral hips. COMPARISON: 05/30/2024 FINDINGS: ALIGNMENT: Normal. VERTEBRAE: Chronic mild superior endplate compression fracture of L1. No new acute displaced fracture. Multilevel facet arthrosis most pronounced at L5/S1. DISKS: Mild height loss at L5/S1. PELVIS: Pelvic phleboliths. SOFT TISSUES: Vascular calcifications. Numerous distended loops of small and large bowel. Small bowel loops measure up to approximately 3.8 cm. Neuroforaminal and spinal canal narrowing suboptimally evaluated by radiograph but there is likely at least mild stenosis of the L5/S1 neural foramen. Hips: Mild bilateral hip osteoarthrosis. No acute displaced fracture or dislocation. Pelvic phleboliths. IMPRESSION: 1. No acute displaced fracture or dislocation. 2. Gaseous distention/dilation of multiple small and large bowel loops most consistent with ileus. Consider dedicated imaging of the abdomen/pelvis as clinically appropriate. Electronically signed by: Dany Vu M.D. Angelique Pace MD IMG XR PROCEDURES Fi nal Result * XR Spine Lumbar 2 or 3 Views (01/16/2025 5:21 PM [employer]) Anatomical Region Laterality Modality Spine N/A Computed Radiogr aphy 01/16/2025 5:43 PM [employer] Impressions 01/16/2025 5:43 PM [employer] 1. No acute displaced fracture or dislocation. 2. Gaseous distention/dilation of multiple small and large bowel loops most consistent with ileus. Consider dedicated imaging of the abdomen/pelvis as clinically appropriate. Electronically signed by: Dany Vu M.D. Narrative 01/16/2025 5:43 PM [employer] EXAMINATION: XR HIPS BILATERAL 3 OR 4 VW, XR SPINE LUMBAR 2 OR 3 VIEWS. HISTORY: Bilateral Hip pain TECHNIQUE: 3 radiographic views of the lumbar spine were obtained. 2 views of bilateral hips. COMPARISON: 05/30/2024 FINDINGS: ALIGNMENT: Normal. VERTEBRAE: Chronic mild superior endplate compression fracture of L1. No new acute displaced fracture. Multilevel facet arthrosis most pronounced at L5/S1. DISKS: Mild height loss at L5/S1. PELVIS: Pelvic phleboliths. SOFT TISSUES: Vascular calcifications. Numerous distended loops of small and large bowel. Small bowel loops measure up to approximately 3.8 cm. Neuroforaminal and spinal canal narrowing suboptimally evaluated by radiograph but there is likely at least mild stenosis of the L5/S1 neural foramen. Hips: Mild bilateral hip osteoarthrosis. No acute displaced fracture or dislocation. Pelvic phleboliths. Procedure Note Dany Vu MD - 01/16/2025 EXAMINATION: XR HIPS BILATERAL 3 OR 4 VW, XR SPINE LUMBAR 2 OR 3 VIEWS. HISTORY: Bilateral Hip pain TECHNIQUE: 3 radiographic views of the lumbar spine were obtained. 2 views of bilateral hips. COMPARISON: 05/30/2024 FINDINGS: ALIGNMENT: Normal. VERTEBRAE: Chronic mild superior endplate compression fracture of L1. No new acute displaced fracture. Multilevel facet arthrosis most pronounced at L5/S1. DISKS: Mild height loss at L5/S1. PELVIS: Pelvic phleboliths. SOFT TISSUES: Vascular calcifications. Numerous distended loops of small and large bowel. Small bowel loops measure up to approximately 3.8 cm. Neuroforaminal and spinal canal narrowing suboptimally evaluated by radiograph but there is likely at least mild stenosis of the L5/S1 neural foramen. Hips: Mild bilateral hip osteoarthrosis. No acute displaced fracture or dislocation. Pelvic phleboliths. IMPRESSION: 1. No acute displaced fracture or dislocation. 2. Gaseous distention/dilation of multiple small and large bowel loops most consistent with ileus. Consider dedicated imaging of the abdomen/pelvis as clinically appropriate. Electronically signed by: Dany Vu M.D. Angelique Pace MD IMG XR PROCEDURES Fi nal Result * (ABNORMAL) Troponin T high-sensitivity 6-hour (01/16/2025 12:26 AM [employer]) Trop T hs 23(H) <=14 ng/L Comment: Interpretive Data For further hscTnT resources including the diagnostic algorithm and an aid in interpretation, copy and paste this link: https://nrl.testcatalog.org/show/hsTrop Current Interpretive Data last revised 2020. Testing performed by: [address] [address] Trop T hs delta See Comment ng/L KISHA Comment: Inappropriate collection time to report a delta. Testing performed by: [address] [address] Trop T hs pct delta See Comment % KISHA Comment: Inappropriate collection time to report a delta. Testing performed by: [address] [address] Trop T hs interp See Comment KISHA Comment: Inappropriate collection time to report a delta. Testing performed by: [address] [address] Blood 01/16/2025 12:2 6 AM [employer] 01/16/2025 12:42 AM [employer] Yuli WINN LAB BLOOD ORDERABLES Final Resu lt KISHA [address] [facility] Department [place] [address] * eGFR (01/16/2025 12:26 AM [employer]) eGFR >90 >=60 mL/min/1. 73 m2 Comment: [...] was last reviewed 2020. Testing performed by: [address] [address] Blood 01/16/2025 12:2 6 AM [employer] 01/16/2025 12:42 AM [employer] Katty Armenta MD LAB BLOOD ORDER PHUONG Final Result Performing Organization Address [facility]/ZIP Co de Phone Number [address] Department of Laboratories [place], [place] [id number] * Thyroid Function [place] (01/16/2025 12:26 AM [employer]) TSH 2.03 0.30 - 4.20 mcIUnit/mL Comment:Testing performed by : [address] [address] Blood 01/16/2025 12:2 6 AM [employer] 01/16/2025 12:42 AM [employer] Katty Armenta MD LAB BLOOD ORDER PHUONG Final Result Performing Organization Address City/[facility]/ZIP Co de Phone Number [address] Department [place] [address] * (ABNORMAL) CBC without differential (01/16/2025 12:26 AM [employer]) [facility] [place] [facility] Signature WBC 5.23 3.80 - 9.90 K/cumm Comment:Testing performed by : [address] [address] Hgb 9.4(L) 11.9 - 15.5 g/dL KISHA Comment:Testing performed by : [address] [address] Hct 29.4(L) 35.6 - 45.5 % KISHA Comment:Testing performed by : [address] [address] Plt 229 150 - 400 K/cumm KISHA Comment:Testing performed by : [address] [address] MPV 9.7 9.1 - 12.3 fL KISHA Comment:Testing performed by : [address] [address] RBC 3.64(L) 3.90 - 5.20 M/cumm KISHA Comment:Testing performed by : [address] [address] MCV 80.8(L) 81.3 - 96.4 fL KISHA Comment:Testing performed by : [address] [address] MCH 25.8(L) 27.1 - 33.3 pg KISHA Comment:Testing performed by : [address] [address] MCHC 32.0(L) 32.3 - 35.7 g/dL KISHA Comment:Testing performed by : [address] [address] RDW CV 21.0(H) 11.1 - 14.9 % KISHA Comment:Testing performed by : [address], [address] RDW SD 59.9(H) 35.7 - 48.1 fL KISHA Comment:Testing performed by : [address] [address] NRBC abs 0.00 0.00 - 0.01 K/cumm [facility]HA [place] Comment:Testing performed by : [address] [address] Blood 01/16/2025 12:2 6 AM [employer] 01/16/2025 12:43 AM [employer] Katty Armenta MD LAB BLOOD ORDER PHUONG Final Result Performing Organization Address City/[facility] Co de Phone Number [place] [id number] [facility] [place] [address] * (ABNORMAL) Hemoglobin A1c (01/16/2025 12:26 AM [employer]) Hgb A1C 9.4(H) 4.0 - 5.6 % Comment:Testing performed by : [address] [address] Estimated Average Glucose 223 mg/dL KISHA Comment: The ADA recommends reporting an estimated Average Glucose (eAG) with all Hemoglobin A1c results using the equation derived from a study of 507 normal and diabetic adults. Minority populations were underrepresented and children were not included. (Diabetes Care 31:0374-8712, 2008). The eAG is not equivalent to a fasting glucose. Testing performed by: [address] [address] Blood 01/16/2025 12:2 6 AM [employer] 01/16/2025 12:43 AM [employer] Katty Armenta MD LAB BLOOD ORDER PHUONG Final Result Performing Organization Address City/[facility]/ZIP Co de Phone Number [facility] [address] [facility] [place] [address] * (ABNORMAL) Lipid panel (01/16/2025 12:26 AM [employer]) Cholesterol 72 30 - 199 mg/dL Comment: Interpretive Data Ages < or = 19 years Acceptable: <170 mg/dL Borderline high: 170-199 mg/dL High: >or= 200 mg/dL Ages > or = 20 years Desirable: <200 mg/dL Borderline high: 200-239 mg/dL High: >or= 240 mg/dL Literature References: 1. Expert Panel on Integrated Guidelines for Cardiovascular Health and Risk Reduction in Children and Adolescents. Pediatrics 2011;128:S213 2. NCEP Expert Panel. Circulation 2004;110:227 Current Interpretive Data was last revised on 2017. Testing performed by: [address] [address] Triglycerides 115 <=149 mg/dL KISHA Comment: Interpretive Data Ages < or = 9 years Acceptable: <75 mg/dL Borderline high: 75-99 mg/dL High: >or= 100 mg/dL Ages 10 to 20 years Acceptable: <90 mg/dL Borderline high: 90-129 mg/dL High: >or= 130 mg/dL Ages > or = 20 years Desirable: <150 mg/dL Borderline high: 150-199 mg/dL High: 200-499 mg/dL Very high: >or= 499 mg/dL Literature References: 1. Expert Panel on Integrated Guidelines for Cardiovascular Health and Risk Reduction in Children and Adolescents. Pediatrics 2011;128:S213 2. NCEP Expert Panel. Circulation 2004;110:227 Current Interpretive Data was last revised on 2017. Testing performed by: [address] [address] HDL 26(L) >=40 mg/dL KISHA Comment: Interpretive Data Ages < or = 19 years Acceptable: >45 mg/dL Borderline low: 40-45 mg/dL Low: <40 mg/dL Ages > or = 20 years Desirable: >or= 60 mg/dL Low: <40 mg/dL Literature References: 1. Expert Panel on Integrated Guidelines for Cardiovascular Health and Risk Reduction in Children and Adolescents. Pediatrics 2011;128:S213 2. NCEP Expert Panel. Circulation 2004;110:227 Current Interpretive Data was last revised on 2017. Testing performed by: [address] [address] LDL, calculated 25 <=129 mg/dL KISHA Comment: Interpretive Data Ages < or = 19 years Acceptable: <110 mg/dL Borderline high: 110-129 mg/dL High: >or= 130 mg/dL Ages > or = 20 years Optimal: <100 mg/dL Near optimal: 100-129 mg/dL Borderline high: 130-159 mg/dL High: >160 mg/dL Calculated using the Laz LDL-C estimating equation. This equation was implemented on 2023. Prior to this date LDL-C was estimated using the Friedewald equation. Literature References: 1. Expert Panel on Integrated Guidelines for Cardiovascular Health and Risk Reduction in Children and Adolescents. Pediatrics 2011;128:S213 2. NCEP Expert Panel. Circulation 2004;110:227 3. Laz M et al. SADE Cardiol. 2020 June 29;5(5):540-548. doi: 10.1001/jamacardio.2020.0013 Current Interpretive Data was last revised on 2023. Testing performed by: [address] [address] Non-HDL Cholesterol 46 mg/dL KISHA Comment: Interpretive Data Ages < or = 19 years Acceptable: <120 mg/dL Borderline high: 120-144 mg/dL High: >145 mg/dL Ages > or = 20 years When triglycerides are >200 mg/dL, Non-HDL cholesterol is a secondary target of therapy with treatment goals that are 30 mg/dL greater than the LDL cholesterol target. Literature References: 1. Expert Panel on Integrated Guidelines for Cardiovascular Health and Risk Reduction in Children and Adolescents. Pediatrics 2011;128:S213 2. NCEP Expert Panel. Circulation 2004;110:227 Current Interpretive Data was last revised on 2017. Testing performed by: [address] [address] Chol/HDL ratio [address] Comment:Testing performed by : [address] [address] Blood 01/16/2025 12:2 6 AM LEAD MINER BLASTING 01/16/2025 12:42 AM LEAD MINER BLASTING Katty Armenta MD LAB BLOOD ORDER PHUONG Final Result KISHA [address] [facility] Department [place] [address] * (ABNORMAL) Basic metabolic panel (01/16/2025 12:26 AM LEAD MINER BLASTING) Sodium 138 135 - 145 mmol/L Comment:Testing performed by : [address] [address] Potassium, pl 2.4(C) 3.3 - 4.9 mmol/L KISHA Comment: Critical Result called to and read back by [id number], DATE: 2025-01-16 01:31:39 BY: [id number] Testing performed by: [address] [address] Chloride 106 97 - 110 mmol/L KISHA Comment:Testing performed by : [address] [address] CO2 23 22 - 32 mmol/L KISHA Comment:Testing performed by : [address] [address] Anion gap 9 2 - 15 mmol/L KISHA Comment:Testing performed by : [address] [address] BUN 11 6 - 25 mg/dL KISHA Comment:Testing performed by : [address] [address] Creatinine 0.33(L) 0.60 - 1.10 mg/dL KISHA Comment:Testing performed by : [address] [address] Glucose 214(H) 70 - 199 mg/dL KISHA Comment: Interpretive [...] was last revised 2022. Testing performed by: [facility], [address] [place] [address]., [address] Calcium 7.1(L) 8.5 - 10.3 mg/dL KISHA T[place]NSEND Comment:Testing performed by : [facility], [address] [place] [address]., [address] Blood 01/16/2025 12:2 6 AM LEAD [employer]ER BLASTING 01/16/2025 12:42 AM LEAD [employer]ER BLASTING us Katty Armenta MD LAB BLOOD ORDER PHUONG Final Result KISHA [place]NSEND [address] [facility] Department [place] [address] * MRI Brain WO Contrast (01/15/2025 10:12 PM LEAD MINER BLASTING) Anatomical Region Laterality Modality Head and Neck N/A Magnetic Resonan ce 01/15/2025 11:3 5 PM [employer]ING Impressions 01/15/2025 11:35 PM LEAD [employer]ER BLASTING 1. No infarct or other acute intracranial finding. 2. Sequela of chronic microangiopathy. Electronically signed by: Chris Ontiveros M.D. Narrative 01/15/2025 11:35 PM LEAD [employer]ER BLASTING EXAMINATION: MRI BRAIN WO CONTRAST INDICATION: Female, 79 years old, Transient ischemic attack (TIA) rule out tia COMPARISON(S): Same day CT head TECHNIQUE: Multiplanar MR imaging of the brain without contrast. FINDINGS: No diffusion restriction or pathologic magnetic susceptibility. The ventricles, cisternal spaces, and sulci are symmetric and moderately enlarged. No mass or intracranial hemorrhage. Focal to patchy periventricular T2/FLAIR hyperintense signal with parenchymal volume loss. Parenchymal signal and morphology are otherwise normal. Intracranial flow voids are normal. Bones, orbits, paranasal sinuses, and soft tissues are unremarkable. Procedure Note Chris Ontiveros MD - 01/15/2025 EXAMINATION: MRI BRAIN WO CONTRAST INDICATION: Female, 79 years old, Transient ischemic attack (TIA) rule out tia COMPARISON(S): Same day CT head TECHNIQUE: Multiplanar MR imaging of the brain without contrast. FINDINGS: No diffusion restriction or pathologic magnetic susceptibility. The ventricles, cisternal spaces, and sulci are symmetric and moderately enlarged. No mass or intracranial hemorrhage. Focal to patchy periventricular T2/FLAIR hyperintense signal with parenchymal volume loss. Parenchymal signal and morphology are otherwise normal. Intracranial flow voids are normal. Bones, orbits, paranasal sinuses, and soft tissues are unremarkable. IMPRESSION: 1. No infarct or other acute intracranial finding. 2. Sequela of chronic microangiopathy. Electronically signed by: Chris Ontiveros M.D. Katty Armenta MD IMG MRI PROCEDU RES Final Result * (ABNORMAL) Troponin T high-sensitivity 4-hour (01/15/2025 7:53 PM LEAD [employer]ER [employer]ING) Trop T hs 26(H) <=14 ng/L Comment: Interpretive Data For further hscTnT resources including the diagnostic algorithm and an aid in interpretation, copy and paste this link: https://nrl.testcatalog.org/show/hsTrop Current Interpretive Data last revised 2020. Testing performed by: [facility], [address] [place] [address]., [address] Trop T hs delta -3 ng/L KISHA [place]NSEND Comment:Testing performed by : [address] [address] Trop T hs interp Insignificant KISHA [place] Comment:Testing performed by : [address] [address] Blood 01/15/2025 7:53 PM LEAD [employer]ER [employer]ING 01/15/2025 7:55 PM LEAD MINER BLASTING Yuli WINN LAB BLOOD ORDERABLES Final Resu lt KISHA [place]NSEND [address] [facility] Department [place] [address] * (ABNORMAL) Troponin T high-sensitivity 2-hour (01/15/2025 5:13 PM LEAD [employer]ING) Trop T hs 29(H) <=14 ng/L Comment: Interpretive Data For further hscTnT resources including the diagnostic algorithm and an aid in interpretation, copy and paste this link: https://nrl.testcatalog.org/show/hsTrop Current Interpretive Data last revised 2020. Testing performed by: [address] [address] Trop T hs delta 0 ng/L KISHA [place] Comment:Testing performed by : [address] [address] Trop T hs interp Insignificant KISHA [place] Comment:Testing performed by : [address] [address] Blood 01/15/2025 5:13 PM LEAD [employer]ER BLASTING 01/15/2025 5:15 PM LEAD [employer]ER BLASTING Yuli WINN LAB BLOOD ORDERABLES Final Resu lt Performing Organization Address City/[facility]/ZIP Co de Phone Number KISHA [address] [facility] Department [place] [address] * ECG 12 lead (01/15/2025 3:57 PM LEAD [employer]ER BLASTING) Ventricular Rate EKG/Min 87 BPM [facility] Atrial Rate 87 BPM [facility] ME-Interval (MSEC) 258 ms [facility] QRS-Interval (MSEC) 84 ms [facility] QT-Interval (MSEC) 396 ms [facility] QTc 476 ms [facility] P Cyclone 67 degrees [facility] R Cyclone 2 degrees [facility] T Cyclone 81 degrees [facility] Diagnosis Sinus rhythm with 1st degree A-V block Septal infarct (cited on or before 31-MAR-2024) When compared with ECG of 02-JUN-2024 19:29, ME interval has increased The rate is slower. Confirmed by SULTAN RICE M.D. ([id number]) on 01/15/2025 10:50:34 PM [facility] 01/15/2025 3:57 PM [employer]ING 01/15/2025 10:50 PM LEAD MINER BLASTING Yuli WINN ECG ORDERABLES Final Result Performing Organization Address City/[facility]/ZIP Co de Phone Number [facility] * (ABNORMAL) Urinalysis reflex to microscopic and culture Urine (01/15/2025 3:53 PM LEAD [employer]ER BLASTING) Color, ur Yellow Yellow Comment:Testing performed by : [facility], [address] [place] [address]., [address] Clarity, ur Cloudy(A) Clear KISHA Comment:Testing performed by : [address] [address] Specific gravity, ur 1.014 1.003 - 1.030 KISHA Comment:Testing performed by : [address], [place]., [address] pH, urine 6.5 KISHA Comment: Interpretive Data U rine pH is affected by diet, medications, systemic acid-base disturbances, and renal tubular function. pH may affect urinary stone formation. For example, urine pH below 6.0 may help reduce the tendency for calcium phosphate stones and pH greater than 6.0 may reduce the tendency for uric acid stone formation. Source: [facility] [employer] Current Interpretive Data was last revised on 2017 Testing performed by: [address] [address] Protein, ur ql Trace(A) Negative KISHA Comment:Testing performed by : [address] [address] Glucose, ur ql Negative Negative KISHA Comment:Testing performed by : [address] [address] Ketones, ur 1+(A) Negative KISHA Comment:Testing performed by : [address] [address] Bilirubin, ur Negative Negative KISHA Comment:Testing performed by : [address] [address] Blood, ur Negative Negative KISHA Comment:Testing performed by : [address] [address] Urobilinogen, ur 2.0(A) <2.0 mg/dL KISHA Comment:Testing performed by : [address] [address] Nitrite, ur Negative Negative KISHA Comment:Testing performed by : [address] [address] Leukocyte esterase, ur Negative Negative KISHA Comment:Testing performed by : [address] [address] UA reflex comment Reflex to microscopic UA will be performed. KISHA Comment:Testing performed by : [address], [place]., [address] Urine 01/15/2025 3:53 PM LEAD [employer]ING 01/15/2025 4:05 PM LEAD [employer]ER BLASTING us Yuli WINN LAB MICROBIOLOGY - GENERAL RAQUEL GRAY Final Result KISHA T[place]NSEND [address] [facility] Department [place] [address] * (ABNORMAL) Urinalysis, microscopic only (01/15/2025 3:53 PM LEAD [employer]ER [employer]ING) WBC, ur 6-10(A) 0 - 5 /HPF Comment:Testing performed by : [address] [address] RBC, ur 6-10(A) 0 - 2 /HPF KISHA Comment:Testing performed by : [address] [address] Epithelial cells, squamous, ur >50(A) 0 - 5 /HPF KISHA Comment:Testing performed by : [address] [address] Bacteria, ur 4+(A) KISHA Comment:Testing performed by : [address] [address] Mucous, ur Present(A) KISHA Comment:Testing performed by : [address] [address] Hyaline casts, ur 1-5 0 - 10 /LPF KISHA Comment:Testing performed by : [address] [address] Culture Reflex Comment Reflex conditions for urine culture (WBC >10) not met. KISHA Comment:Testing performed by : [facility], [address] [place] [address]., [address] Urine 01/15/2025 3:53 PM [employer]ING 01/15/2025 4:05 PM LEAD MINER BLASTING us Yuli WINN LAB URINE ORDERABLES Final Resu lt KISHA [address] [facility] Department [place] [address] * XR Chest 1 Vw Portable (01/15/2025 3:47 PM LEAD [employer]ER BLASTING) Anatomical Region Laterality Modality Body, Chest N/A Computed Radiogr aphy 01/15/2025 4:01 PM LE[employer]ING Impressions 01/15/2025 4:01 PM LEAD [employer]ER BLASTING No acute cardiopulmonary process. Electronically signed by: David Yuen M.D. Narrative 01/15/2025 4:01 PM LEAD [employer]ER BLASTING EXAMINATION: XR CHEST 1 VIEW HISTORY: Acute confusion today. TECHNIQUE: Frontal radiographic view(s) acquired of the chest. Images saved to PACS. COMPARISON: Chest radiograph 06/07/2024; CT chest without contrast 05/30/2024. FINDINGS: Trachea midline. Stable cardiomediastinal silhouette better evaluated on prior CT imaging. No focal consolidation. No pleural effusion. No pneumothorax. Surgical clips left axilla/chest wall. No acute osseous abnormality. Procedure Note David Yuen MD - 01/15/2025 EXAMINATION: XR CHEST 1 VIEW HISTORY: Acute confusion today. TECHNIQUE: Frontal radiographic view(s) acquired of the chest. Images saved to PACS. COMPARISON: Chest radiograph 06/07/2024; CT chest without contrast 05/30/2024. FINDINGS: Trachea midline. Stable cardiomediastinal silhouette better evaluated on prior CT imaging. No focal consolidation. No pleural effusion. No pneumothorax. Surgical clips left axilla/chest wall. No acute osseous abnormality. IMPRESSION: No acute cardiopulmonary process. Electronically signed by: David Yuen M.D. us Yuli WINN IMG XR PROCEDURES Final Result * (ABNORMAL) Troponin T high-sensitivity series (baseline, 2hr, 4hr, 6hr) (01/15/2025 3:39 PM LEAD [employer]ER BLASTING) Trop T hs 29(H) <=14 ng/L Comment: Interpretive Data For further hscTnT resources including the diagnostic algorithm and an aid in interpretation, copy and paste this link: https://nrl.testcatalog.org/show/hsTrop Current Interpretive Data last revised 2020. Testing performed by: [facility], [address] [place] [address]., [address] Blood 01/15/2025 3:39 PM LEAD [employer]ER [employer]ING 01/15/2025 3:41 PM LEAD MINER BLASTING us Yuli WINN LAB BLOOD ORDERABLES Final Resu lt KISHA [address] [facility] Department [place] [address] * eGFR (01/15/2025 3:39 PM LEAD [employer]ER BLASTING) eGFR >90 >=60 mL/min/1. 73 m2 Comment: [...] was last reviewed 2020. Testing performed by: [address] [address] Blood 01/15/2025 3:39 PM LEAD [employer]ER [employer]ING 01/15/2025 3:41 PM LEAD MINER BLASTING Yuli WINN LAB BLOOD ORDERABLES Final Resu lt KISHA [address] [facility] Department [place] [address] * (ABNORMAL) Differential, auto (01/15/2025 3:39 PM LEAD MINER BLASTING) Neutrophil abs 6.23 1.50 - 6.50 K/cumm Comment:Testing performed by : [address] [address] Imm gran abs 0.03 0.00 - 0.10 K/cumm KISHA Comment:Testing performed by : [address] [address] Lymphocyte abs 0.92 0.80 - 3.30 K/cumm KISHA Comment:Testing performed by : [address] [address] Monocyte abs 0.88(H) 0.20 - 0.80 K/cumm KISHA Comment:Testing performed by : [address] [address] Eosinophil abs 0.00 0.00 - 0.50 K/cumm KISHA Comment:Testing performed by : [address] [address] Basophil abs 0.01 0.00 - 0.10 K/cumm KISHA Comment:Testing performed by : [address] [address] Neutrophil pct 77.2 % KISHA Comment: Interpretive Data Percent cell count reference ranges are not reported, since discordance with absolute values may lead to misinterpretation of CBC data. Current Interpretive Data was last revised on 2017. Testing performed by: [address] [address] Imm gran pct 0.4 % KISHA Comment: Interpretive Data Percent cell count reference ranges are not reported, since discordance with absolute values may lead to misinterpretation of CBC data. Current Interpretive Data was last revised on 2017. Testing performed by: [address] [address] Lymphocyte pct 11.4 % KISHA Comment: Interpretive Data Percent cell count reference ranges are not reported, since discordance with absolute values may lead to misinterpretation of CBC data. Current Interpretive Data was last revised on 2017. Testing performed by: [address] [address] Monocyte pct 10.9 % KISHA Comment: Interpretive Data Percent cell count reference ranges are not reported, since discordance with absolute values may lead to misinterpretation of CBC data. Current Interpretive Data was last revised on 2017. Testing performed by: [address] [address] Eosinophil pct 0.0 % KISHA Comment: Interpretive Data Percent cell count reference ranges are not reported, since discordance with absolute values may lead to misinterpretation of CBC data. Current Interpretive Data was last revised on 2017. Testing performed by: [address] [address] Basophil pct 0.1 % KISHA Comment: Interpretive Data Percent cell count reference ranges are not reported, since discordance with absolute values may lead to misinterpretation of CBC data. Current Interpretive Data was last revised on 2017. Testing performed by: [address] [address] Blood 01/15/2025 3:39 PM LEAD [employer]ER [employer]ING 01/15/2025 3:41 PM LEAD [employer]ER BLASTING us Yuli WINN LAB BLOOD ORDERABLES Final Resu lt KISHA [place]NSEND [address] [facility] Department [place] [address] * (ABNORMAL) CBC with auto differential (01/15/2025 3:39 PM LEAD [employer]ER BLASTING) WBC 8.07 3.80 - 9.90 K/cumm Comment:Testing performed by : [address] [address] Hgb 11.4(L) 11.9 - 15.5 g/dL CERELVIN Comment:Testing performed by : [address] [address] Hct 35.2(L) 35.6 - 45.5 % CERELVIN Comment:Testing performed by : [address] [address] Plt 258 150 - 400 K/cumm CERELVIN Comment:Testing performed by : [address] [address] MPV 9.0(L) 9.1 - 12.3 fL CERELVIN Comment:Testing performed by : [address], [address] RBC 4.43 3.90 - 5.20 M/cumm CERELVIN Comment:Testing performed by : [address] [address] MCV 79.5(L) 81.3 - 96.4 fL CERELVIN Comment:Testing performed by : [address] [address] MCH 25.7(L) 27.1 - 33.3 pg CERELVIN Comment:Testing performed by : [address] [address] MCHC 32.4 32.3 - 35.7 g/dL CERELVIN Comment:Testing performed by : [address], [address] RDW CV 21.2(H) 11.1 - 14.9 % KISHA Comment:Testing performed by : [address], [address] RDW SD 60.0(H) 35.7 - 48.1 fL CERELVIN Comment:Testing performed by : [address] [address] NRBC abs 0.00 0.00 - 0.01 K/cumm KISHA Comment:Testing performed by : [address], [address] Blood 01/15/2025 3:39 PM LEAD [employer]ER BLASTING 01/15/2025 3:41 PM LEAD MINER BLASTING Yuli WINN LAB BLOOD ORDERABLES Final Resu lt KISHA [address] [facility] Department [place] [address] * (ABNORMAL) Comprehensive metabolic panel (01/15/2025 3:39 PM LEAD MINER BLASTING) Sodium 134(L) 135 - 145 mmol/L Comment:Testing performed by : [address] [address] Potassium, pl 3.3 3.3 - 4.9 mmol/L KISHA Comment:Testing performed by : [address] [address] Chloride 95(L) 97 - 110 mmol/L KISHA Comment:Testing performed by : [address] [address] CO2 26 22 - 32 mmol/L KISHA Comment:Testing performed by : [address] [address] Anion gap 13 2 - 15 mmol/L KISHA Comment:Testing performed by : [address] [address] BUN 10 6 - 25 mg/dL KISHA Comment:Testing performed by : [address] [address] Creatinine 0.50(L) 0.60 - 1.10 mg/dL KISHA Comment:Testing performed by : [address] [address] Glucose 217(H) 70 - 199 mg/dL KISHA Comment: Interpretive [...] was last revised 2022. Testing performed by: [address] [address] Calcium 8.7 8.5 - 10.3 mg/dL KISHA Comment:Testing performed by : [address] [address] Bilirubin, total 0.9 0.1 - 1.2 mg/dL KISHA Comment:Testing performed by : [address] [address] Protein, pl 6.6 6.5 - 8.5 g/dL KISHA Comment:Testing performed by : [address], [place]., [address] Albumin 3.8 3.5 - 5.0 g/dL KISHA Comment:Testing performed by : [address] [address] Alk phos 104 40 - 130 Units/L KISHA Comment:Testing performed by : [address] [address] ALT 23 7 - 45 Units/L KISHA Comment:Testing performed by : [address] [address] AST 29 10 - 45 Units/L KISHA Comment:Testing performed by : [address] [address] Blood 01/15/2025 3:39 PM LEAD [employer]ER BLASTING 01/15/2025 3:41 PM LEAD MINER BLASTING us Yuli WINN LAB BLOOD ORDERABLES Final Resu lt KISHA [address] [facility] Department [place] [address] * CT Stroke Head WO Contrast (01/15/2025 3:24 PM LEAD MINER BLASTING) Anatomical Region Laterality Modality Head N/A Computed Tomogra phy 01/15/2025 3:33 PM LEAD [employer]ER BLASTING Impressions 01/15/2025 3:33 PM LEAD MINER BLASTING No acute intracranial abnormality. I called these findings by phone at time of dictation to Yuli So PA Electronically signed by: Forrest Johnson M.D. Narrative 01/15/2025 3:33 PM LEAD MINER BLASTING EXAMINATION: CT STROKE HEAD WO CONTRAST HISTORY: Stroke. Confusion today TECHNIQUE: Axial images acquired through the brain without intravenous contrast. Images stored on PACS. Automated exposure control was used as a dose optimization technique for this examination. COMPARISON: 04/20/2024 FINDINGS: BRAIN: No hemorrhage, edema or mass effect. No recent infarct. Periventricular hypodensity suggesting chronic ischemic change. Central and cortical atrophic changes. EXTRA-AXIAL SPACES: No fluid collections. No masses. CALVARIUM: No fracture. SINUSES/MASTOIDS: No fluid or mucosal thickening. ORBITS: Orbits OTHER: No other significant abnormality. Procedure Note Forrest Johnson MD - 01/15/2025 EXAMINATION: CT STROKE HEAD WO CONTRAST HISTORY: Stroke. Confusion today TECHNIQUE: Axial images acquired through the brain without intravenous contrast. Images stored on PACS. Automated exposure control was used as a dose optimization technique for this examination. COMPARISON: 04/20/2024 FINDINGS: BRAIN: No hemorrhage, edema or mass effect. No recent infarct. Periventricular hypodensity suggesting chronic ischemic change. Central and cortical atrophic changes. EXTRA-AXIAL SPACES: No fluid collections. No masses. CALVARIUM: No fracture. SINUSES/MASTOIDS: No fluid or mucosal thickening. ORBITS: Orbits OTHER: No other significant abnormality. IMPRESSION: No acute intracranial abnormality. I called these findings by phone at time of dictation to Yuli So PA Electronically signed by: Forrest Johnson M.D. Yuli WINN [facility] PROCEDURES Final Result * (ABNORMAL) POCT glucose (01/15/2025 3:17 PM LEAD MINER BLASTING) [facility] Glucose, POC 201(H) 70 - 199 mg/dL Comment:Testing performed by : [facility], [address] [place] [address], [place]., [address] Glucose comment 1 RN/MD Notified KISHA Comment:Testing performed by : [facility], [address] [place] [address], [place]., [address] Blood 01/15/2025 3:17 PM LEAD MINER BLASTING 01/15/2025 3:17 PM LEAD MINER BLASTING us Eleazar Michel MD LAB POCT ORDERABLES - DEVICE Final Result Performing Organization Address City/State/[facility] Co de Phone Number KISHA [address] [facility] Department [place] [address] from Last 3 Months Insurance MEDICARE RAILROAD [facility] MEDICARE RAILROAD [facility] [place] [address] MEDICARE [address] [facility] Advance Directives For more information, please contact: [phone] * Full Code (Latest Code Status on File) Date Activated Date Inactivated Comments 01/15/2025 7:43 PM 01/19/2025 5:21 PM * Full Code Date Activated Date Inactivated Comments 06/05/2024 7:54 AM 06/09/2024 5:12 PM * Full Code Date Activated Date Inactivated Comments 05/04/2024 10:26 PM 05/07/2024 3:47 PM 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 Specialty Start Date End Date David Pruitt MD [address] [facility] [address] [place] [address] PCP - General Family Medicine 06/30/17 Aram Oro MD [facility]4 [facility] [address] [place], [place] [id number] Surgeon Surgery 02/29/24 David Fried MD [facility]8 [facility] [address] [place], [place] [id number] Radiation Oncologist Radiation Oncology 02/29/24 Chema Foreman MD [facility]8 [facility] [address] [place] [address] Consulting Physician Interventional Cardiology 03/17/24 Lobo Driscoll DO [address] [facility] [address] [place], [place] [id number] Medical Oncologist/Hand Cloth Folder Hematology and Oncology 09/06/24
--- OUTSIDE RECORDS SUMMARY | 2025-01-31 16:52 | XMS_ITS | Encounter Summary ---
Author Organization [facility] Address [address] [place] [id number] Care Team Providers Care Messenger Office Name Role Phone Forrest Wheat DO Primary Care Provider David Pruitt MD Primary Care Provider [phone] Encounter Details Date Type Department Care Team (Late st Contact Info) Description 08/06/2018 Abstract [facility] [address] [place] [address] , Yoly Manrique MD Social History Tobacco [...] on filedocumented in this encounter Care Teams Messenger Office Relationship Specialty Start Date End Date Forrest Wheat DO [address] [place] [address] PCP - General 05/04/16 10/08/21 David Pruitt MD [address] [facility] [address] [place] [address] PCP - General FAMILY PRACTICE 10/09/21 documented as of this encounter
[2025-01-31 17:02] LABS: Add Urine Microscopic? YES; Appearance Urine Clear (Clear); Budding Yeast Urine Present /hpf; Glucose Urine UA Negative (Negative); Leukocyte Esterase Ur Trace LEU/UL (Negative); Need Manual Microscopic Reviewed; Nitrate Urine Negative (Negative); Non Pathogenic Casts 0-2; Specific Grav Ur 1.015 (1.001-1.035)
--- OUTSIDE RECORDS SUMMARY | 2025-03-23 18:00 | XMS_ITS | Clinical Summary ---
Author Organization Unknown Care Team Providers Care Electrical & Instrumentation Supervisor Name Role Phone JENARO LUKE, ROSARIO Unavailable Unavailable MAGI FARFAN, BILLIE Unavailable Unavailable Payers Payer Name Policy Type Policy Number Effective Date Expira tion Date MEDICARE - [place] - PDGM [id number] Problems Condition Name Condition Details Condition Category Status Onset Date Resolution Date Last Treatment Date Treating Clinician Comments URINARY TRACT INFECTION, SITE NOT SPECIFIED Active 2024-03 00:00: 00 Allergies, Adverse Reactions, Alerts Allergy Name Allergy Type Status Severity Reaction(s) Onset Date Inactive Date Treating Clinician Comments CELECOXIB Propensity to adverse reactions Active 2024-03 15:21: 48 OMEGA 3 FATTY ACID FISH OIL Propensity to adverse reactions Active 2024-03 15:21: 57 SEAFOOD/ASHISH LFISH Propensity to adverse reactions Active 2024-03 15:22: 09 SHRIMP EXTRACT Propensity to adverse reactions Active 2024-03 15:22: 17 ATORVASTATIN Propensity to adverse reactions Active 2024-03 15:22: 26 CONTRAST DYE Propensity to adverse reactions Active 2024-03 15:22: 42 METFORMIN Propensity to adverse reactions Active 2024-03 15:22: 54 DUST Propensity to adverse reactions Active 2024-03 15:23: 16 PREDNISONE Propensity to adverse reactions Active 2024-03 15:23: 25 FLECAINIDE Propensity to adverse reactions Active 2024-03 15:23: 38 Immunizations Ordered Immunization Name Filled Immunization Name Date Status Comments Refusal Reason COVID-19, COVID-19 2025-01-24 00:00:00 INFLUENZA, TIV (INACTIVATED) 2025-01-24 00:00:00 Vital Signs Vital Name Observation Time Observation Value Commen ts Temperature 2025-01-29 09:48:00.000 98 [degF] Temperature 2025-01-24 14:03:00.000 98 [degF] BMI (%) 2025-01-24 13:07:29.000 21 kg/m2 Height 2025-01-24 13:07:18.000 61 [in_us] Pulse 2025-01-29 09:48:00.000 78 /min Pulse 2025-01-24 14:03:00.000 99 /min O2 Saturation (%) 2025-01-29 09:48:00.000 98 % O2 Saturation (%) 2025-01-24 14:03:00.000 97 % Respirations 2025-01-29 09:48:00.000 18 /min Respirations 2025-01-24 14:03:00.000 16 /min Weight (lbs) 2025-01-24 13:07:29.000 116 [lb_av] Systolic Blood Pressure 2025-01-29 09:48:00.000 128 mm [Hg] Systolic Blood Pressure 2025-01-24 14:03:00.000 135 mm [Hg] Diastolic Blood Pressure 2025-01-29 09:48:00.000 80 mm [Hg] Diastolic Blood Pressure 2025-01-24 14:03:00.000 73 mm [Hg] Plan of Treatment Planned Activity Planned Date Details Comments Future Scheduled Test SKILLED NU RSE TO EVALUATE PATIENT, IDENTIFY PRIMARY AND CO-MORBID CONDITIONS CODED PER CODING GUIDELINES, AND DEVELOP PATIENT SPECIFIC PLAN OF CARE THAT INCLUDES PATIENT GOAL FOR HOME HEALTH. PLAN OF CARE TO INCLUDE 3 PRN VISIT(S) FOR OASIS DATA COLLECTION/COMPREHENSIVE ASSESSMENT AT TIMEPOINTS PER FEDERAL REGULATIONS. THIS INCLUDES VISITS FOR LUIS, RECERT, SCIC, AND/OR DC. [code = SKILLED NURSE TO EVALUATE PATIENT, IDENTIFY PRIMARY AND CO-MORBID CONDITIONS CODED PER CODING GUIDELINES, AND DEVELOP PATIENT SPECIFIC PLAN OF CARE THAT INCLUDES PATIENT GOAL FOR HOME HEALTH. PLAN OF CARE TO INCLUDE 3 PRN VISIT(S) FOR OASIS DATA COLLECTION/COMPREHENSIVE ASSESSMENT AT TIMEPOINTS PER FEDERAL REGULATIONS. THIS INCLUDES VISITS FOR LUIS, RECERT, SCIC, AND/OR DC.] Future Scheduled Test HOME [facility] AGENCY MAY ACCEPT ORDERS FROM THE FOLLOWING PHYSICIANS: TREATING/ELEVATOR MECHANIC APPRENTICE PROVDERS [code = HOME HEALTH AGENCY MAY ACCEPT ORDERS FROM THE FOLLOWING PHYSICIANS: TREATING/ELEVATOR MECHANIC APPRENTICE PROVDERS] Future Scheduled Test SKILLED NU RSE TO PROVIDE TEACHING/REINFORCEMENT RELATED TO URINARY INCONTINENCE. [code = SKILLED NURSE TO PROVIDE TEACHING/REINFORCEMENT RELATED TO URINARY INCONTINENCE.] Future Scheduled Test SKILLED NU RSE TO ASSESS ANXIETY AND PROVIDE ASSISTANCE TO PATIENT FOR UNDERSTANDING AND MANAGEMENT OF FEELINGS. [code = SKILLED NURSE TO ASSESS ANXIETY AND PROVIDE ASSISTANCE TO PATIENT FOR UNDERSTANDING AND MANAGEMENT OF FEELINGS.] Future Scheduled Test SKILLED NU RSE FOR O/A AND SKILLED TEACHING RELATED TO SIGNS AND SYMPTOMS OF INFECTION AND INFECTION CONTROL MEASURES. [code = SKILLED NURSE FOR O/A AND SKILLED TEACHING RELATED TO SIGNS AND SYMPTOMS OF INFECTION AND INFECTION CONTROL MEASURES.] Future Scheduled Test SKILLED NU RSE FOR O/A OF SELF-CARE DEFICITS AND TO PROVIDE TEACHING RELATED TO SAFE PROVISION OF ADLS. [code = SKILLED NURSE FOR O/A OF SELF-CARE DEFICITS AND TO PROVIDE TEACHING RELATED TO SAFE PROVISION OF ADLS.] Future Scheduled Test SKILLED NU RSE TO OBTAIN BLOOD SUGAR PRN FOR SIGNS AND SYMPTOMS OF HYPO/HYPERGLYCEMIA. IF OBTAINED BY PATIENT/CAREGIVER PRIOR TO VISIT AND PATIENT IS NOT SYMPTOMATIC, SKILLED NURSE TO RECORD READING FROM PATIENT LOG. [code = SKILLED NURSE TO OBTAIN BLOOD SUGAR PRN FOR SIGNS AND SYMPTOMS OF HYPO/HYPERGLYCEMIA. IF OBTAINED BY PATIENT/CAREGIVER PRIOR TO VISIT AND PATIENT IS NOT SYMPTOMATIC, SKILLED NURSE TO RECORD READING FROM PATIENT LOG.] Future Scheduled Test PHYSICAL T HERAPIST TO EVALUATE PATIENT FOR WEAKNESS [code = PHYSICAL THERAPIST TO EVALUATE PATIENT FOR WEAKNESS] Future Scheduled Test SKILLED NU RSE TO INSTRUCT PATIENT/CAREGIVER ON SIGNS AND SYMPTOMS, RISK FACTORS, COMPLICATIONS, AND MANAGEMENT OF ATRIAL FIBRILLATION. [code = SKILLED NURSE TO INSTRUCT PATIENT/CAREGIVER ON SIGNS AND SYMPTOMS, RISK FACTORS, COMPLICATIONS, AND MANAGEMENT OF ATRIAL FIBRILLATION.] Future Scheduled Test SKILLED NU RSE TO PROVIDE TEACHING ON SIGNS AND SYMPTOMS AND MANAGEMENT OF HYPERTENSION. [code = SKILLED NURSE TO PROVIDE TEACHING ON SIGNS AND SYMPTOMS AND MANAGEMENT OF HYPERTENSION.] Future Scheduled Test SKILLED NU RSE TO INSTRUCT PATIENT/CAREGIVER ON COPD TO INCLUDE TEACHING AND SELF-MANAGEMENT RELATED TO COPD DISEASE PROCESS, SIGNS AND SYMPTOMS, AND COMPLICATIONS. [code = SKILLED NURSE TO INSTRUCT PATIENT/CAREGIVER ON COPD TO INCLUDE TEACHING AND SELF-MANAGEMENT RELATED TO COPD DISEASE PROCESS, SIGNS AND SYMPTOMS, AND COMPLICATIONS.] Future Scheduled Test SKILLED NU RSE FOR O/A AND TEACHING OF DIABETIC MANAGEMENT INCLUDING BLOOD SUGAR MONITORING/USE OF GLUCOMETER, DIABETIC DIET, LOWER EXTREMITY SKIN INSPECTION, PROPER SKIN/FOOT CARE, AND SIGNS AND SYMPTOMS HYPO/HYPERGLYCEMIA TO REPORT. [code = SKILLED NURSE FOR O/A AND TEACHING OF DIABETIC MANAGEMENT INCLUDING BLOOD SUGAR MONITORING/USE OF GLUCOMETER, DIABETIC DIET, LOWER EXTREMITY SKIN INSPECTION, PROPER SKIN/FOOT CARE, AND SIGNS AND SYMPTOMS HYPO/HYPERGLYCEMIA TO REPORT.] Future Scheduled Test SKILLED NU RSE TO INSTRUCT PATIENT/CAREGIVER ON PREVENTION OF SEPSIS, AND SIGNS AND SYMPTOMS OF SEPSIS TO REPORT. [code = SKILLED NURSE TO INSTRUCT PATIENT/CAREGIVER ON PREVENTION OF SEPSIS, AND SIGNS AND SYMPTOMS OF SEPSIS TO REPORT.] Future Scheduled Test PATIENT LEWIS S A RISK OF HOSPITALIZATION AND ED USE. SKILLED NURSE TO ESTABLISH SUPPORT MEASURES TO MINIMIZE RISK OF HOSPITALIZATION AND ED USE, AND INSTRUCT PATIENT/CAREGIVER ON METHODS TO REDUCE AVOIDABLE HOSPITALIZATION AND ED USE. [code = PATIENT HAS A RISK OF HOSPITALIZATION AND ED USE. SKILLED NURSE TO ESTABLISH SUPPORT MEASURES TO MINIMIZE RISK OF HOSPITALIZATION AND ED USE, AND INSTRUCT PATIENT/CAREGIVER ON METHODS TO REDUCE AVOIDABLE HOSPITALIZATION AND ED USE.] Future Scheduled Test SKILLED NU RSE TO PROVIDE INSTRUCTION TO PATIENT/CAREGIVER RELATED TO DISCHARGE PLANNING. [code = SKILLED NURSE TO PROVIDE INSTRUCTION TO PATIENT/CAREGIVER RELATED TO DISCHARGE PLANNING.] Future Scheduled Test SKILLED NU RSE TO PERFORM ENVIRONMENTAL SAFETY RISK ASSESSMENT AND FALL RISK ASSESSMENT AND PROVIDE INSTRUCTION TO IMPLEMENT ENVIRONMENTAL SAFETY AND FALL PREVENTION STRATEGIES THROUGHOUT THE CERTIFICATION PERIOD. SKILLED NURSE WILL MAINTAIN SITUATIONAL AWARENESS AND WILL NOTIFY CLINICAL CONVERTER SUPERVISOR AND PHYSICIAN/PROVIDER WITH ANY CHANGE IN CONDITION. [code = SKILLED NURSE TO PERFORM ENVIRONMENTAL SAFETY RISK ASSESSMENT AND FALL RISK ASSESSMENT AND PROVIDE INSTRUCTION TO IMPLEMENT ENVIRONMENTAL SAFETY AND FALL PREVENTION STRATEGIES THROUGHOUT THE CERTIFICATION PERIOD. SKILLED NURSE WILL MAINTAIN SITUATIONAL AWARENESS AND WILL NOTIFY CLINICAL CONVERTER SUPERVISOR AND PHYSICIAN/PROVIDER WITH ANY CHANGE IN CONDITION.] Future Scheduled Test SKILLED NU RSE FOR OBSERVATION AND ASSESSMENT OF PATIENT S PAIN LEVEL AND EFFECTIVENESS OF PAIN MANAGEMENT REGIMEN. SKILLED NURSE TO INSTRUCT PATIENT/CAREGIVER REGARDING PHARMACOLOGIC AND NON-PHARMACOLOGIC PAIN CONTROL MEASURES. SKILLED NURSE TO REPORT TO PHYSICIAN IF PAIN LEVEL IS OUTSIDE OF ESTABLISHED PARAMETERS. [code = SKILLED NURSE FOR OBSERVATION AND ASSESSMENT OF PATIENT S PAIN LEVEL AND EFFECTIVENESS OF PAIN MANAGEMENT REGIMEN. SKILLED NURSE TO INSTRUCT PATIENT/CAREGIVER REGARDING PHARMACOLOGIC AND NON-PHARMACOLOGIC PAIN CONTROL MEASURES. SKILLED NURSE TO REPORT TO PHYSICIAN IF PAIN LEVEL IS OUTSIDE OF ESTABLISHED PARAMETERS.] Future Scheduled Test SKILLED NU RSE TO ASSESS PATIENT'S SKIN INTEGRITY AND INSTRUCT PATIENT/CAREGIVER ON MEASURES TO PREVENT PRESSURE ULCERS. [code = SKILLED NURSE TO ASSESS PATIENT'S SKIN INTEGRITY AND INSTRUCT PATIENT/CAREGIVER ON MEASURES TO PREVENT PRESSURE ULCERS.] Future Scheduled Test SKILLED NU RSE TO PROVIDE ASSESSMENT AND TEACHING/REINFORCEMENT OF MANAGEMENT OF DEPRESSION INCLUDING DISEASE PROCESS, MEDICATION MANAGEMENT, COPING SKILLS AND IDENTIFY CHANGES ASSOCIATED WITH DEPRESSIVE DISORDERS FOR EARLY INTERVENTION. [code = SKILLED NURSE TO PROVIDE ASSESSMENT AND TEACHING/REINFORCEMENT OF MANAGEMENT OF DEPRESSION INCLUDING DISEASE PROCESS, MEDICATION MANAGEMENT, COPING SKILLS AND IDENTIFY CHANGES ASSOCIATED WITH DEPRESSIVE DISORDERS FOR EARLY INTERVENTION.] Future Scheduled Test SKILLED NU RSE TO REVIEW PATIENT MEDICATIONS (PRESCRIPTION/OTC). INSTRUCT PATIENT/CAREGIVER ON ALL MEDICATIONS INCLUDING PURPOSE, WHEN TO TAKE, IMPORTANCE OF MEDICATION ADHERENCE, MONITORING OF EFFECTIVENESS, ADVERSE DRUG REACTIONS, POSSIBLE SIDE EFFECTS, AND WHEN TO NOTIFY AGENCY OR PHYSICIAN/PROVIDER OF ANY CONCERNS. [code = SKILLED NURSE TO REVIEW PATIENT MEDICATIONS (PRESCRIPTION/OTC). INSTRUCT PATIENT/CAREGIVER ON ALL MEDICATIONS INCLUDING PURPOSE, WHEN TO TAKE, IMPORTANCE OF MEDICATION ADHERENCE, MONITORING OF EFFECTIVENESS, ADVERSE DRUG REACTIONS, POSSIBLE SIDE EFFECTS, AND WHEN TO NOTIFY AGENCY OR PHYSICIAN/PROVIDER OF ANY CONCERNS.] Future Scheduled Test SKILLED NU RSE FOR O/A, TEACHING AND MANAGEMENT OF URINARY TRACT INFECTION. [code = SKILLED NURSE FOR O/A, TEACHING AND MANAGEMENT OF URINARY TRACT INFECTION.] Goal Patient Goal - G ET STRONGER AND STAY OUT OF THE HOSPITAL Goal Provider Goal - A PLAN OF CARE WILL BE ESTABLISHED THAT MEETS PATIENT'S SHELTER NEEDS AND INCLUDES PATIENT GOAL FOR HOME HEALTH. Goal Provider Goal - ADDITIONAL ORDERS WILL BE RECEIVED FROM ALTERNATE PHYSICIAN IN A TIMELY MANNER THROUGHOUT THE CERTIFICATION PERIOD. Goal Provider Goal - PATIENT / CAREGIVER WILL VERBALIZE UNDERSTANDING OF EFFECTS OF URINARY INCONTINENCE BY THE END OF THE CERTIFICATION PERIOD. Goal Provider Goal - SYMPTOMS OF ANXIETY ARE IDENTIFIED AND INTERVENTIONS INITIATED TO ENABLE PATIENT TO UNDERSTAND AND MANAGE FEELINGS THROUGHOUT EPISODE. Goal Provider Goal - PATIENT/CAREGIVER WILL VERBALIZE/DEMONSTRATE UNDERSTANDING OF S/S OF INFECTION AND INFECTION CONTROL MEASURES. SIGNS AND SYMPTOMS OF INFECTION WILL BE IDENTIFIED AND PHYSICIAN NOTIFIED FOR PROMPT INTERVENTION THROUGHOUT THE CERTIFICATION PERIOD. Goal Provider Goal - PATIENT/CAREGIVER WILL VERBALIZE/DEMONSTRATE UNDERSTANDING OF SAFE PROVISION OF ADLS BY THE END OF THE CERTIFICATION PERIOD. Goal Provider Goal - BLOOD SUGAR READING WILL BE OBTAINED ORDERED THROUGHOUT CERTIFICATION PERIOD. Goal Provider Goal - A PHYSICAL THERAPY EVALUATION TO BE COMPLETED WITH RECOMMENDATIONS AND/OR WRITTEN PLAN OF TREATMENT ESTABLISHED FOR PHYSICIAN S SIGNATURE. Goal Provider Goal - PATIENT/CAREGIVER WILL VERBALIZE UNDERSTANDING OF SIGNS AND SYMPTOMS, COMPLICATIONS, AND MANAGEMENT OF ATRIAL FIBRILLATION THROUGHOUT THE CERTIFICATION PERIOD. Goal Provider Goal - PATIENT/CAREGIVER WILL VERBALIZE SIGNS AND SYMPTOMS OF HYPERTENSION AND WILL BE ABLE TO DEMONSTRATE ABILITY TO MANAGE EXACERBATION BY END OF THE EPISODE. Goal Provider Goal - PATIENT/CAREGIVER WILL VERBALIZE/DEMONSTRATE KNOWLEDGE AND MANAGEMENT OF COPD BY END OF EPISODE. Goal Provider Goal - PATIENT/CAREGIVER WILL VERBALIZE/DEMONSTRATE KNOWLEDGE OF DIABETIC MANAGEMENT. CHANGES IN DIABETIC STATUS WILL BE IDENTIFIED AND REPORTED TO PHYSICIAN FOR PROMPT INTERVENTION THROUGHOUT THE CERTIFICATION PERIOD. Goal Provider Goal - PATIENT WILL BE FREE FROM INFECTION AND PATIENT/CAREGIVER WILL VERBALIZE UNDERSTANDING OF SIGNS AND SYMPTOMS AND METHODS TO PREVENT SEPSIS BY END OF THE EPISODE. Goal Provider Goal - PATIENT WILL HAVE SUPPORT MEASURES ESTABLISHED TO PREVENT HOSPITALIZATION AND ED USE AND PATIENT/CAREGIVER WILL VERBALIZE/DEMONSTRATE METHODS TO REDUCE AVOIDABLE HOSPITALIZATION AND ED USE BY END OF EPISODE. Goal Provider Goal - PATIENT/CAREGIVER WILL VERBALIZE UNDERSTANDING OF DISCHARGE PLANNING INSTRUCTIONS BY DATE OF DISCHARGE. Goal Provider Goal - PATIENT/CAREGIVER WILL VERBALIZE/DEMONSTRATE EFFECTIVE ENVIRONMENTAL SAFETY AND FALL PREVENTION STRATEGIES, WILL REMAIN SAFE IN THE COMMUNITY, AND WILL BE FREE OF DANGER TO SELF AND OTHERS THROUGHOUT THE CERTIFICATION PERIOD. Goal Provider Goal - PATIENT/CAREGIVER WILL DEMONSTRATE UNDERSTANDING OF PHARMACOLOGIC AND NONPHARMACOLOGIC PAIN CONTROL MEASURES AND PATIENT WILL HAVE IMPROVEMENT IN PAIN INTERFERING WITH ACTIVITY EVIDENCED BY PAIN AT A LEVEL THAT IS ACCEPTABLE TO THE PATIENT AND PAIN LEVEL WITHIN ESTABLISHED PARAMETERS BY END OF CERTIFICATION PERIOD. Goal Provider Goal - PATIENT/CAREGIVER WILL VERBALIZE UNDERSTANDING OF PRESSURE ULCER PREVENTION BY END OF THE EPISODE. Goal Provider Goal - PATIENT/CAREGIVER WILL VERBALIZE/DEMONSTRATE UNDERSTANDING OF THE MANAGEMENT OF DEPRESSION THROUGHOUT THE CERTIFICATION PERIOD AND SYMPTOMS ARE IDENTIFIED AND MANAGED TO MAINTAIN PATIENT SAFETY IN THE HOME. Goal Provider Goal - PATIENT/CAREGIVER WILL VERBALIZE UNDERSTANDING OF EDUCATION PROVIDED ON MEDICATIONS BY THE END OF THE CERTIFICATION PERIOD. Goal Provider Goal - PATIENT/CAREGIVER WILL VERBALIZE UNDERSTANDING OF URINARY TRACT INFECTION DISEASE PROCESS AND MANAGEMENT. PATIENT WILL BE FREE OF S/S OF UTI UPON COMPLETION OF TREATMENT OF UTI. Progress Notes Progress Notes <paragraph>[Visit Date: 2024 by MARIO ODEN LPN]:</paragraph><paragraph>NURSE HERE TODAY FOR ROUTINE VISIT NURSED PATIENT'S GREETED NURSE AT DOOR PATIENT SITTING IN KITCHEN TABLE PATIENT REMAINS HOMEBOUND AT THIS TIME DUE TO TAXING EFFORT TO LEAVE HOME PATIENT IS ALERT AND ORIENTED IN ALL VITAL SIGNS TODAY ARE WITHIN NORMAL PARAMETERS HEART RHYTHM ARE REGULAR LUNG SOUNDS CLEAR IN ALL LOBES PATIENT IS NOT CURRENTLY HAVING ANY UTI SYMPTOMS PATIENT WAS EDUCATED ON UTI PREVENTION. PATIENT HAS FOLLOW UP THIS WEEK WITH PRIMARY CARE DOCTOR. PATIENT IS SUPPOSED TO GO NEXT WEEK TO HAVE INJECTIONS INTO HER BLADDER TO PREVENT INCONTINENCE. PATIENT STATES SHE IS NERVOUS ABOUT THIS DUE TO THE PAIN. ALL MEDICATIONS WERE REVIEWED WITH NO NEW MEDICATIONS NOTED. COUNTER REVIEWED REGARDING NEXT NURSING VISIT. PATIENT ADVISED TO CALL STACY IF ANY QUESTIONS CONCERNS OR CHANGES IN HEALTH STATUS</paragraph> Encounters Start Date/Time End Date/Time Encounter Type Admission Type Attending [facility] Care Department Encounter ID Discharge Date Discharge Status Discharge Condition Discharge Reason Percent Goals Met 2025-01-24 00:00:00 2025-03-24 00:00:00 Outpatient NEW ADMISSION BILLIE SOW [facility] [id number] 17 .14
--- OUTSIDE RECORDS SUMMARY | 2025-03-23 18:00 | XMS_ITS | Clinical Summary ---
Author Organization Unknown Care Team Providers Care Direct Chill Casting Operator Name Role Phone JENARO LUKE, ROSARIO Unavailable Unavailable MAGI FARFAN, BILLIE Unavailable Unavailable Payers Payer Name Policy Type Policy Number Effective Date Expira tion Date MEDICARE - [place] - PDGM [id number] Problems Condition Name Condition Details Condition Category [...] MAY ACCEPT ORDERS FROM THE FOLLOWING PHYSICIANS: TREATING/ARGON TESTER PROVDERS [code = HOME HEALTH AGENCY MAY ACCEPT ORDERS FROM THE FOLLOWING PHYSICIANS: TREATING/ARGON TESTER PROVDERS] Future Scheduled Test SKILLED NU RSE [...] MAINTAIN SITUATIONAL AWARENESS AND WILL NOTIFY CLINICAL MELT HOUSE DRAG OPERATOR AND PHYSICIAN/PROVIDER WITH ANY CHANGE IN CONDITION. [code = SKILLED NURSE TO PERFORM ENVIRONMENTAL SAFETY RISK ASSESSMENT AND FALL RISK ASSESSMENT AND PROVIDE INSTRUCTION TO IMPLEMENT ENVIRONMENTAL SAFETY AND FALL PREVENTION STRATEGIES THROUGHOUT THE CERTIFICATION PERIOD. SKILLED NURSE WILL MAINTAIN SITUATIONAL AWARENESS AND WILL NOTIFY CLINICAL MELT HOUSE DRAG OPERATOR AND PHYSICIAN/PROVIDER WITH ANY CHANGE IN CONDITION.] [...] CARE WILL BE ESTABLISHED THAT MEETS PATIENT'S SNF NEEDS AND INCLUDES PATIENT GOAL FOR HOME [...] End Date/Time Encounter Type Admission Type Attending [facility] Care Department Encounter ID Discharge Date Discharge Status Discharge Condition Discharge Reason Percent Goals Met 2025-01-24 00:00:00 2025-03-24 00:00:00 Outpatient NEW ADMISSION BILLIE [facility]OW [facility] [id number] 17 .14
== END 2025-01-31 15:45 | disposition home or self-care (01) ==
PROVIDERS: PCP Family Medicine; Visit Provider Physician Assistant Medical
DX: E87.6 Hypokalemia (principal); D64.9 Anemia, unspecified; R30.0 Dysuria
CPT/HCPCS: 36415; 80048; 81001; 85027; 87086

== ENCOUNTER 2025-02-19 15:46 | Outpatient (CLI) | payer MEDICARE, SELFPAY ==
[2025-02-19 16:34] LABS: Alanine Aminotransferase 15 U/L (6-35); Albumin Level 3.7 g/dL (3.5-5.1); Alkaline Phosphatase 105 U/L (38-126); Anion Gap 7 mmol/L (4-12); Aspartate Amino Transferase 26 U/L (14-36); Bilirubin,Total 0.6 mg/dL (0.2-1.3); Blood Urea Nitrogen 12 mg/dL (7-17); Calcium 8.5 mg/dL (8.4-10.2); Carbon Dioxide 27 mmol/L (22-30); Chloride 104 mmol/L (98-107); Cholesterol 97 mg/dL (0-200); Estimated Glomerular Filt Rate > 60; Glucose 150 mg/dL (65-110); HDL Direct 39 mg/dL; Potassium 3.2 mmol/L (3.4-5.0); Sodium 138 mmol/L (137-145); Total Protein 6.7 g/dL (6.3-8.2); Triglycerides 108 mg/dL (<150)
[2025-02-19 16:40] LABS: Hematocrit 32.5 % (37.0-47.0); Hemoglobin 10.2 g/dL (12.0-15.0); Mean Corpuscular HGB Conc 31.4 g/dl (32-36); Mean Corpuscular Hemoglobin 25.6 pg (26-34); Mean Corpuscular Volume 81.7 fl (80-100); Platelet Count Result 327 k/mm3 (150-375); Red Blood Count 3.98 M/mm3 (4.2-5.4); White Blood Count 7.4 K/mm3 (4.5-10.0)
[2025-02-19 17:10] LABS: Thyroid Stimulating Hormone 2.800 uIU/mL (0.465-4.680)
--- OUTSIDE RECORDS SUMMARY | 2025-03-23 18:00 | XMS_ITS | Clinical Summary ---
Author Organization Unknown Care Team Providers Care Scrap Preparation Supervisor Name Role Phone JENARO LUKE, ROSARIO Unavailable Unavailable MAGI RN, BILLIE Unavailable Unavailable SCOT FARFAN, MELCHOR Unavailable Unavailabl e Payers Payer Name Policy Type Policy Number Effective Date Expira tion Date MEDICARE - [place] - PDGM [id number] Problems Condition Name Condition Details Condition Category Status Onset Date Resolution Date Last Treatment Date Treating Clinician Comments URINARY TRACT INFECTION, SITE NOT SPECIFIED Active 03-01 00:00: 00 TYPE 2 DIABETES MELLITUS WITH DIABETIC NEUROPATHY, UNSP Active 03-01 00:00: 00 RHEUMATOID ARTHRITIS, UNSPECIFIED Active 03-01 00:00: 00 PAROXYSMAL ATRIAL FIBRILLATION Active 03-01 00:00: 00 TYPE 2 DIABETES MELLITUS WITH OTHER SPECIFIED COMPLICATION Active 03-01 00:00: 00 MIXED HYPERLIPIDEM IA Active 03-01 00:00: 00 UNSPECIFIED OSTEOARTHRIT IS, UNSPECIFIED SITE Active 03-01 00:00: 00 HYPERTENSIVE HEART DISEASE WITHOUT HEART FAILURE Active 03-01 00:00: 00 OTHER SPECIFIED CHRONIC OBSTRUCTIVE PULMONARY DISEASE Active 03-01 00:00: 00 MILD INTERMITTENT ASTHMA, UNCOMPLICATE D Active 03-01 00:00: 00 DEPRESSION, UNSPECIFIED Active 03-01 00:00: 00 DVRTCLOS OF INTEST, PART UNSP, W/O PERF OR ABSCESS W/O BLEED Active 03-01 00:00: 00 HYPOTHYROIDI SM, UNSPECIFIED Active 03-01 00:00: 00 IRON DEFICIENCY ANEMIA, UNSPECIFIED Active 03-01 00:00: 00 GASTRO-ESOPH AGEAL REFLUX DISEASE WITHOUT ESOPHAGITIS Active 03-01 00:00: 00 ANXIETY DISORDER, UNSPECIFIED Active 03-01 00:00: 00 ANEMIA, UNSPECIFIED Active 03-01 00:00: 00 Oth intvrt disc degen, lum rgn w/o lum bck or lw extrm pain Active 03-01 00:00: 00 ATHSCL HEART DISEASE OF [place] CORONARY ARTERY W/O ANG PCTRS Active 03-01 00:00: 00 Obesity, class 2 Active 03-01 00:00: 00 BODY MASS INDEX [BMI] 21.0-21.9, ADULT Active 03-01 00:00: 00 ACQUIRED ABSENCE OF OTHER SPECIFIED PARTS OF DIGESTIVE TRACT Active 03-01 00:00: 00 ACQUIRED ABSENCE OF OTHER ORGANS Active 03-01 00:00: 00 ACQUIRED ABSENCE OF BOTH CERVIX AND UTERUS Active 03-01 00:00: 00 PERSONAL HISTORY OF NICOTINE DEPENDENCE Active 03-01 00:00: 00 Problems related to health literacy Active 03-01 00:00: 00 SOCIAL EXCLUSION AND REJECTION Active 03-01 00:00: 00 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 Ordering Clinician Indication Dosage Frequency Signature (SIG) Comments Components albuterol sulfate HFA 90 mcg/actuati on aerosol inhaler 2024-03 00:00: 00 Yes [id number] 2 puff EVERY 6 HOURS 2 puff EVERY 6 HOURS (route: inhalation ) Med Classific ation: Respirato ry Therapy Agents cefdinir 300 mg capsule 2024-03 00:00: 00 01-25 23:59 :00 No [id number] 1 capsule 2 TIMES DAILY 1 capsule 2 TIMES DAILY (route: oral) Med Classific ation: Anti-Infe ctive Agents cetirizine 10 mg tablet 2024-03 00:00: 00 Yes [id number] 1 tablet DAILY 1 tablet DAILY (route: oral) Med Classific ation: Respirato ry Therapy Agents cholecalcif kramen (vitamin D3) 25 mcg (1,000 unit) tablet 2024-03 00:00: 00 Yes [id number] 1 tablet DAILY 1 tablet DAILY (route: oral) Med Classific ation: Electroly te Balance-N utritiona l Products clopidogrel 75 mg tablet 2024-03 00:00: 00 Yes [id number] 1 tablet DAILY 1 tablet DAILY (route: oral) Med Classific ation: Hematolog ical Agents cyanocobala min (vit B-12) 1,000 mcg tablet 2024-03 00:00: 00 Yes [id number] 2 tablet DAILY 2 tablet DAILY (route: oral) Med Classific ation: Electroly te Balance-N utritiona l Products duloxetine 30 mg capsule,del ayed release 2024-03 00:00: 00 Yes [id number] 1 capsule EVERY AM 1 capsule EVERY AM (route: oral) Med Classific ation: Central Nervous System Agents duloxetine 60 mg capsule,del ayed release 2024-03 00:00: 00 Yes [id number] 1 capsule BEDTIME 1 capsule BEDTIME (route: oral) Med Classific ation: Central Nervous System Agents fluticasone 250 mcg-salmete rol 50 mcg/dose blistr powdr for inhalation 2024-03 00:00: 00 Yes [id number] 1 inhalat ion 2 TIMES DAILY 1 inhalation 2 TIMES DAILY (route: inhalation ) Med Classific ation: Respirato ry Therapy Agents hydrochloro thiazide 25 mg tablet 2024-03 00:00: 00 Yes [id number] 1 tablet DAILY 1 tablet DAILY (route: oral) Med Classific ation: Cardiovas cular Therapy Agents hydrocodone 5 mg-acetamin ophen 325 mg tablet 2024-03 00:00: 00 Yes [id number] 1 tablet 2 TIMES DAILY 1 tablet 2 TIMES DAILY (route: oral) Med Classific ation: Analgesic , Anti-infl ammatory or Antipyret ic leflunomide 20 mg tablet 2024-03 00:00: 00 Yes [id number] 1 tablet DAILY 1 tablet DAILY (route: oral) Med Classific ation: Analgesic , Anti-infl ammatory or Antipyret ic levothyroxi ne 88 mcg tablet 2024-03 00:00: 00 Yes [id number] 1 tablet DAILY 1 tablet DAILY (route: oral) Med Classific ation: Endocrine losartan 50 mg tablet 2024-03 00:00: 00 Yes [id number] 1 tablet DAILY 1 tablet DAILY (route: oral) Med Classific ation: Cardiovas cular Therapy Agents Mounjaro 7.5 mg/0.5 mL subcutaneou s pen injector 2024-03 00:00: 00 Yes [id number] 7.5 mg WEEKLY 7.5 mg WEEKLY (route: subcutaneo us) Med Classific ation: Endocrine multivitami n with minerals tablet 2024-03 00:00: 00 Yes [id number] 1 tablet DAILY 1 tablet DAILY (route: oral) Med Classific ation: Electroly te Balance-N utritiona l Products omeprazole 40 mg capsule,del ayed release 2024-03 00:00: 00 Yes [id number] 1 capsule DAILY 1 capsule DAILY (route: oral) Med Classific ation: Gastroint estinal Therapy Agents ondansetron 4 mg disintegrat ing tablet 2024-03 00:00: 00 Yes [id number] 1 tablet EVERY 6 HOURS 1 tablet EVERY 6 HOURS (route: oral) Med Classific ation: Gastroint estinal Therapy Agents oxybutynin chloride ER 10 mg tablet,exte nded release 24 hr 2024-03 00:00: 00 Yes [id number] 1 tablet DAILY 1 tablet DAILY (route: oral) Med Classific ation: Genitouri nary Therapy potassium chloride ER 10 mEq tablet,exte nded release 2024-03 00:00: 00 Yes [id number] 1 tablet DAILY 1 tablet DAILY (route: oral) Med Classific ation: Electroly te Balance-N utritiona l Products rosuvastati n 10 mg tablet 2024-03 00:00: 00 Yes [id number] 1 tablet DAILY 1 tablet DAILY (route: oral) Med Classific ation: Cardiovas cular Therapy Agents Toujeo Max U-300 SoloStar 300 unit/mL (3 mL) subcutaneou s insulin pen 2024-03 00:00: 00 Yes [id number] 25 unit DAILY 25 unit DAILY (route: subcutaneo us) Med Classific ation: Endocrine tramadol 50 mg tablet 2024-03 00:00: 00 Yes [id number] 1 tablet EVERY 6 HOURS 1 tablet EVERY 6 HOURS (route: oral) Med Classific ation: Analgesic , Anti-infl ammatory or Antipyret ic Xiidra 5 % eye drops in a dropperette 2024-03 00:00: 00 Yes [id number] 1 dropper ette, single- use drop dispens er 2 TIMES DAILY 1 dropperett e, single-use drop dispenser 2 TIMES DAILY (route: ophthalmic (eye)) Med Classific ation: Ophthalmi c Agents methotrexat e sodium 2.5 mg tablet 2024-03 00:00: 00 Yes [id number] 10 tablet WEEKLY 10 tablet WEEKLY (route: oral) Med Classific ation: Antineopl astics Xarelto 20 mg tablet 2024-03 00:00: 00 Yes [id number] 1 tablet EVERY PM 1 tablet EVERY PM (route: oral) Med Classific ation: Hematolog ical Agents Immunizations Ordered Immunization Name Filled Immunization Name Date Status Comments Refusal Reason COVID-19, COVID-19 2025-01-24 00:00:00 INFLUENZA, TIV (INACTIVATED) 2025-01-24 00:00:00 Vital Signs Vital Name Observation Time Observation Value Commen ts Temperature 2025-02-15 15:01:00.000 97.8 [degF] Temperature 2025-02-09 12:07:00.000 97 [degF] Temperature 2025-02-07 16:49:00.000 97.9 [degF] Temperature 2025-01-29 09:48:00.000 98 [degF] Temperature 2025-01-24 14:03:00.000 98 [degF] BMI (%) 2025-01-24 13:07:29.000 21 kg/m2 Height 2025-01-24 13:07:18.000 61 [in_us] Pulse 2025-02-15 15:01:00.000 100 /min Pulse 2025-02-09 12:07:00.000 90 /min Pulse 2025-02-07 16:49:00.000 80 /min Pulse 2025-01-29 09:48:00.000 78 /min Pulse 2025-01-24 14:03:00.000 99 /min O2 Saturation (%) 2025-02-09 12:07:00.000 93 % O2 Saturation (%) 2025-02-07 16:49:00.000 98 % O2 Saturation (%) 2025-01-29 09:48:00.000 98 % O2 Saturation (%) 2025-01-24 14:03:00.000 97 % Respirations 2025-02-15 15:01:00.000 18 /min Respirations 2025-02-09 12:07:00.000 18 /min Respirations 2025-02-07 16:49:00.000 18 /min Respirations 2025-01-29 09:48:00.000 18 /min Respirations 2025-01-24 14:03:00.000 16 /min Weight (lbs) 2025-01-24 13:07:29.000 116 [lb_av] Systolic Blood Pressure 2025-02-15 15:01:00.000 126 mm [Hg] Systolic Blood Pressure 2025-02-09 12:07:00.000 120 mm [Hg] Systolic Blood Pressure 2025-02-07 16:49:00.000 138 mm [Hg] Systolic Blood Pressure 2025-01-29 09:48:00.000 128 mm [Hg] Systolic Blood Pressure 2025-01-24 14:03:00.000 135 mm [Hg] Diastolic Blood Pressure 2025-02-15 15:01:00.000 70 mm [Hg] Diastolic Blood Pressure 2025-02-09 12:07:00.000 60 mm [Hg] Diastolic Blood Pressure 2025-02-07 16:49:00.000 78 mm [Hg] Diastolic Blood Pressure 2025-01-29 09:48:00.000 [...] SCIC, AND/OR DC.] Future Scheduled Test [facility] MAY ACCEPT ORDERS FROM THE FOLLOWING PHYSICIANS: TREATING/STUDIO DATA ANALYST PROVDERS [code = HOME HEALTH AGENCY MAY ACCEPT ORDERS FROM THE FOLLOWING PHYSICIANS: TREATING/STUDIO DATA ANALYST PROVDERS] Future Scheduled Test SKILLED NU RSE [...] MAINTAIN SITUATIONAL AWARENESS AND WILL NOTIFY CLINICAL PODODERMATOLOGIST AND PHYSICIAN/PROVIDER WITH ANY CHANGE IN CONDITION. [code = SKILLED NURSE TO PERFORM ENVIRONMENTAL SAFETY RISK ASSESSMENT AND FALL RISK ASSESSMENT AND PROVIDE INSTRUCTION TO IMPLEMENT ENVIRONMENTAL SAFETY AND FALL PREVENTION STRATEGIES THROUGHOUT THE CERTIFICATION PERIOD. SKILLED NURSE WILL MAINTAIN SITUATIONAL AWARENESS AND WILL NOTIFY CLINICAL PODODERMATOLOGIST AND PHYSICIAN/PROVIDER WITH ANY CHANGE IN CONDITION.] [...] CARE WILL BE ESTABLISHED THAT MEETS PATIENT'S HALF-WAY NEEDS AND INCLUDES PATIENT GOAL FOR HOME [...] UTI UPON COMPLETION OF TREATMENT OF UTI. Encounters Start Date/Time End Date/Time Encounter Type Admission Type Attending [facility] Care Facility Care Department Encounter ID Discharge Date Discharge Status Discharge Condition Discharge Reason Percent Goals Met 2025-01-24 00:00:00 2025-03-24 00:00:00 Outpatient NEW ADMISSION MELCHOR ELLISON [facility] [id number] 18.00
--- OUTSIDE RECORDS SUMMARY | 2025-03-23 18:00 | XMS_ITS | Clinical Summary ---
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/ANTIPLAT ELETS Active 03-01 00:00: 00 PRISON (CURRENT) USE OF INHALED STEROIDS Active 03-01 00:00: 00 LNG TRM (CRNT) USE INJECTABLE NON-INSULIN ANTIDIABETIC DRUGS Active 03-01 00:00: 00 PRISON (CURRENT) USE OF ANTICOAGULAN TS Active 03-01 [...] on aerosol inhaler 2024-03 00:00: 00 Yes [id number] 2 puff EVERY 6 HOURS 2 puff EVERY 6 HOURS (route: inhalation ) Med Classific ation: Respirato ry Therapy Agents cefdinir 300 mg capsule 2024-03 00:00: 00 01-25 23:59 :00 No [id number] 1 capsule 2 TIMES DAILY 1 capsule 2 TIMES DAILY (route: oral) Med Classific ation: Anti-Infe ctive Agents cetirizine 10 mg tablet 2024-03 00:00: 00 Yes [id number] 1 tablet DAILY 1 tablet DAILY (route: oral) Med Classific ation: Respirato ry Therapy Agents cholecalcif karmen (vitamin D3) 25 mcg (1,000 unit) tablet 2024-03 00:00: 00 Yes [id number] 1 tablet DAILY 1 tablet DAILY (route: oral) Med Classific ation: Electroly te Balance-N utritiona l Products clopidogrel 75 mg tablet 2024-03 00:00: 00 Yes [id number] 1 tablet DAILY 1 tablet DAILY (route: oral) Med Classific ation: Hematolog ical Agents cyanocobala min (vit B-12) 1,000 mcg tablet 2024-03 00:00: 00 Yes [id number] 2 tablet DAILY 2 tablet DAILY (route: oral) Med Classific ation: Electroly te Balance-N utritiona l Products duloxetine 30 mg capsule,del ayed release 2024-03 00:00: 00 Yes [id number] 1 capsule EVERY AM 1 capsule EVERY AM (route: oral) Med Classific ation: Central Nervous System Agents duloxetine 60 mg capsule,del ayed release 2024-03 00:00: 00 Yes [id number] 1 capsule BEDTIME 1 capsule BEDTIME (route: oral) Med Classific ation: Central Nervous System Agents fluticasone 250 mcg-salmete rol 50 mcg/dose blistr powdr for inhalation 2024-03 00:00: 00 Yes [id number] 1 inhalat ion 2 TIMES DAILY 1 inhalation 2 TIMES DAILY (route: inhalation ) Med Classific ation: Respirato ry Therapy Agents hydrochloro thiazide 25 mg tablet 2024-03 00:00: 00 Yes [id number] 1 tablet DAILY 1 tablet DAILY (route: oral) Med Classific ation: Cardiovas cular Therapy Agents hydrocodone 5 mg-acetamin ophen 325 mg tablet 2024-03 00:00: 00 Yes [id number] 1 tablet 2 TIMES DAILY 1 tablet 2 TIMES DAILY (route: oral) Med Classific ation: Analgesic , Anti-infl ammatory or Antipyret ic leflunomide 20 mg tablet 2024-03 00:00: 00 Yes [id number] 1 tablet DAILY 1 tablet DAILY (route: oral) Med Classific ation: Analgesic , Anti-infl ammatory or Antipyret ic levothyroxi ne 88 mcg tablet 2024-03 00:00: 00 Yes [id number] 1 tablet DAILY 1 tablet DAILY (route: oral) Med Classific ation: Endocrine losartan 50 mg tablet 2024-03 00:00: 00 Yes [id number] 1 tablet DAILY 1 tablet DAILY (route: oral) Med Classific ation: Cardiovas cular Therapy Agents Mounjaro 7.5 mg/0.5 mL subcutaneou s pen injector 2024-03 00:00: 00 Yes [id number] 7.5 mg WEEKLY 7.5 mg WEEKLY (route: subcutaneo us) Med Classific ation: Endocrine multivitami n with minerals tablet 2024-03 00:00: 00 Yes [id number] 1 tablet DAILY 1 tablet DAILY (route: oral) Med Classific ation: Electroly te Balance-N utritiona l Products omeprazole 40 mg capsule,del ayed release 2024-03 00:00: 00 Yes [id number] 1 capsule DAILY 1 capsule DAILY (route: oral) Med Classific ation: Gastroint estinal Therapy Agents ondansetron 4 mg disintegrat ing tablet 2024-03 00:00: 00 Yes [id number] 1 tablet EVERY 6 HOURS 1 tablet EVERY 6 HOURS (route: oral) Med Classific ation: Gastroint estinal Therapy Agents oxybutynin chloride ER 10 mg tablet,exte nded release 24 hr 2024-03 00:00: 00 Yes [id number] 1 tablet DAILY 1 tablet DAILY (route: oral) Med Classific ation: Genitouri nary Therapy potassium chloride ER 10 mEq tablet,exte nded release 2024-03 00:00: 00 Yes [id number] 1 tablet DAILY 1 tablet DAILY (route: oral) Med Classific ation: Electroly te Balance-N utritiona l Products rosuvastati n 10 mg tablet 2024-03 00:00: 00 Yes [id number] 1 tablet DAILY 1 tablet DAILY (route: oral) Med Classific ation: Cardiovas cular Therapy Agents Toujeo Max U-300 SoloStar 300 unit/mL (3 mL) subcutaneou s insulin pen 2024-03 00:00: 00 Yes [id number] 25 unit DAILY 25 unit DAILY (route: subcutaneo us) Med Classific ation: Endocrine tramadol 50 mg tablet 2024-03 00:00: 00 Yes [id number] 1 tablet EVERY 6 HOURS 1 tablet EVERY 6 HOURS (route: oral) Med Classific ation: Analgesic , Anti-infl ammatory or Antipyret ic Xiidra 5 % eye drops in a dropperette 2024-03 00:00: 00 Yes [id number] 1 dropper ette, single- use drop dispens er 2 TIMES DAILY 1 dropperett e, single-use drop dispenser 2 TIMES DAILY (route: ophthalmic (eye)) Med Classific ation: Ophthalmi c Agents methotrexat e sodium 2.5 mg tablet 2024-03 00:00: 00 Yes [id number] 10 tablet WEEKLY 10 tablet WEEKLY (route: oral) Med Classific ation: Antineopl astics Xarelto 20 mg tablet 2024-03 00:00: 00 Yes [id number] 1 tablet EVERY PM 1 tablet EVERY [...] SCIC, AND/OR DC.] Future Scheduled Test [facility] ACCEPT ORDERS FROM THE FOLLOWING PHYSICIANS: TREATING/ANATOMIC PATHOLOGY ASSISTANT PROVDERS [code = HOME HEALTH AGENCY MAY ACCEPT ORDERS FROM THE FOLLOWING PHYSICIANS: TREATING/ANATOMIC PATHOLOGY ASSISTANT PROVDERS] Future Scheduled Test SKILLED NU RSE [...] MAINTAIN SITUATIONAL AWARENESS AND WILL NOTIFY CLINICAL GATEKEEPER AND PHYSICIAN/PROVIDER WITH ANY CHANGE IN CONDITION. [code = SKILLED NURSE TO PERFORM ENVIRONMENTAL SAFETY RISK ASSESSMENT AND FALL RISK ASSESSMENT AND PROVIDE INSTRUCTION TO IMPLEMENT ENVIRONMENTAL SAFETY AND FALL PREVENTION STRATEGIES THROUGHOUT THE CERTIFICATION PERIOD. SKILLED NURSE WILL MAINTAIN SITUATIONAL AWARENESS AND WILL NOTIFY CLINICAL GATEKEEPER AND PHYSICIAN/PROVIDER WITH ANY CHANGE IN CONDITION.] [...] CARE WILL BE ESTABLISHED THAT MEETS PATIENT'S [facility] NEEDS AND INCLUDES PATIENT GOAL FOR HOME [...] End Date/Time Encounter Type Admission Type Attending [facility] Care Facility Care Department Encounter ID Discharge Date Discharge Status Discharge Condition Discharge Reason Percent Goals Met 2025-01-24 00:00:00 2025-03-24 00:00:00 Outpatient NEW ADMISSION MELCHOR ELLISON [facility] [id number] 18.00
== END 2025-02-19 15:47 | disposition home or self-care (01) ==
LOC: ANHLAB 15:47
PROVIDERS: PCP Family Medicine; Visit Provider Family Medicine
DX: E11.9 Type 2 diabetes mellitus without complications (principal); I10 Essential (primary) hypertension; E89.0 Postprocedural hypothyroidism; Z00.00 Encounter for general adult medical examination without abnormal findings; R53.83 Other fatigue; E87.6 Hypokalemia; E78.5 Hyperlipidemia, unspecified
CPT/HCPCS: 36415; 80053; 80061; 84443; 85027